=== PATIENT | female | born 1945 | race Caucasian/White ===

== ENCOUNTER 2019-03-08 23:23 | Emergency (ER) | payer OTHER ==
--- OUTSIDE RECORDS SUMMARY | 2019-03-08 23:26 | XMS REPORT | Continuity of Care Document ---
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/08/2016 [facility] obstructive lung Medical disease Center, (disorder) [facility] [place] Depressive Active Problem 07/08/2016 [facility] Medical (disorder) Center, [facility] [place] Eczema Active Problem 07/08/2016 [facility] (disorder) Medical [place], [facility] [place] 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/08/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, Medical systemic Center, arterial [facility] (disorder) [place] Impairment of Active Problem 07/08/2016 [facility] balance Medical (finding) Center, [facility] [place] Neck pain Resolved Problem 07/08/2016 [facility] (finding) [place] Obesity Active Problem 07/08/2016 [facility] (disorder) Medical [place], [facility] [place] Obstructive Active Problem 07/08/2016 [facility] sleep apnea Medical syndrome Center, (disorder) [facility] [place] Pain (finding) Active Problem 07/08/2016 [facility] Medical [place], [facility] [place] SPINAL STENOSIS, Active [facility] CERVICAL [facility] CERVICAL DISC Active [facility] DISORDER WITH Medical MYELOPATHY, Center Medications Medication Details Route Status Patient Ordering Order Source Instructions Provider Date Trazodone 100 mg, 2 tab, Inactive [place] Hydrochloride 100 Route: PO, Drug 2015 Medical MG Oral Tablet form: TAB, Center Bedtime, Dosing Weight 90.909, kg, Start date: 04/06/16 21:00:00 CDT, Duration: 30 day, Stop date: 05/05/16 21:00:00 CDTNotes: (Same As: Desyrel) Ativan 0.5 mg, 1 tab, Inactive 04/06/ [place] Route: PO, Drug 2015 Medical form: TAB, Center ONCE, Dosing Weight 90.909, kg, PRN Anxiety, Start date: 04/06/16 10:57:00 CDTNotes: (Same as: Ativan) Aspirin 81 mg, 1 tab, Inactive [facility] Route: PO, Drug 2015 Medical form: ECTAB, Center Daily, Dosing Weight 90.909, kg, Start date: 04/06/16 9:00:00 CDT, Duration: 30 day, Stop date: 05/05/16 9:00:00 CDTNotes: Do not crush or chew. (Same As: Ecotrin) Potassium Chloride 20 mEq, Route: No Longer [facility] 20 MEQ Extended PO, Drug form: Active 2016 Medical Release Tablet ERTAB, Daily, Center Dosing Weight 90.909, kg, Start date: 04/06/16 9:00:00 CDT, Duration: 30 day, Stop date: 05/05/16 9:00:00 CDT Furosemide 20 MG 20 mg, Route: No Longer [facility] Oral Tablet [Lasix] PO, Drug form: Active 2016 Medical TAB, Daily, Center Dosing Weight 90.909, kg, Start date: 04/06/16 9:00:00 CDT, Duration: 30 day, Stop date: 05/05/16 9:00:00 CDT potassium chloride 10 mEq, 50 mL, Inactive [facility] Route: IVPB2015 Medical Drug form: INJ, Center Q1H, Dosing Weight 90.909, kg, Total Dose=20 meq, Start date: 04/06/16 7:00:00 CDT, Duration: 2 doses or times, Stop date: 04/06/16 8:00:00 CDT, Peripheral LineNotes: (Same as: KCL) Infuse over 2 hours. Furosemide 20 MG 20 mg=1 tab, Active [facility] Oral Tablet PO, Daily, # 60 2015 Medical tab, 0 Center Refill(s) Potassium Chloride 40 mEq=2 tab, Active [facility] 20 MEQ Extended PO, BID, # 60 2015 Medical Release Tablet tab, 0 Center Refill(s) potassium chloride 10 mEq, 50 mL, Inactive [facility] Route: IVPB2015 Medical Drug form: INJ, Center Q1H, Dosing Weight 90.909, kg, Total Dose=20 meq, Start date: 04/06/16 6:00:00 CDT, Duration: 2 doses or times, Stop date: 04/06/16 7:00:00 CDT, Peripheral LineNotes: (Same as: KCL) Infuse over 2 hours. celecoxib 100 MG 100 mg, PO, No Longer [place] Oral Capsule BID, # 180 cap, Active 2015 Medical [Celebrex] 0 Refill(s) Center Furosemide 40 MG 40 mg, 1 tab, No Longer [place] Oral Tablet [Lasix] Route: PO, Drug Active 2015 Medical form: TAB, Center Daily, Dosing Weight 90.909, kg, Priority: NOW, Start date: 04/05/16 13:29:00 CDT, Duration: 30 day, Stop date: 05/05/16 9:00:00 CDTNotes: (Same as: Lasix) May cause GI upset. Give with food or milk. Potassium Chloride 20 mEq, 1 tab, Inactive [place] 20 MEQ Extended Route: PO, Drug 2015 Medical Release Tablet form: ERTAB, Center Daily, Dosing Weight 90.909, kg, Priority: NOW, Start date: 04/05/16 11:43:00 CDT, Duration: 30 day, Stop date: 05/05/16 9:00:00 CDT Furosemide 20 MG 20 mg, Route: Inactive [place] Oral Tablet [Lasix] PO, Drug form: 2016 Medical TAB, Daily, Center Dosing Weight 90.909, kg, Priority: NOW, Start date: 04/05/16 11:43:00 CDT, Duration: 30 day, Stop date: 05/05/16 9:00:00 CDT potassium chloride 40 mEq, 2 tab, No Longer [facility] Route: PO, Drug Active 2015 Medical form: ERTAB, Center BID, Dosing Weight 90.909, kg, Start date: 04/05/16 9:00:00 CDT, Stop date: 05/04/16 17:00:00 CDTNotes: (Same as: K-Dur 20) "Do Not Crush" With food and full glass of water potassium chloride 10 mEq, 50 mL, Inactive [place] Route: IVPB, 2015 Medical Drug form: INJ, Center ONCE, Dosing Weight 90.909, kg, Start date: 04/05/16 3:24:00 CDT, Stop date: 04/05/16 3:24:00 CDTNotes: (Same as: KCL) Infuse over 2 hours. Lasix 40 mg, 4 mL, No Longer [place] Route: IVP, Active 2015 Medical Drug form: INJ, Center BID, Dosing Weight 90.909, kg, Start date: 04/04/16 17:00:00 CDT, Duration: 30 day, Stop date: 05/04/16 9:00:00 CDTNotes: (Same as: Lasix) MEDICATION WASTE Product Size: 40 mg Product Wasted: ___ mg iodixanol 100 mL, Route: No Longer [place] IVP, Drug Form: Active 2016 Medical SOLN, Dosing Center Weight 90.909, kg, ONCALL, STAT, Start date: 04/04/16 14:50:00 CDT, Duration: 1 doses or times, Dose=2.2ml/kg, Max tfpt=[id number] -- "To be infused by Radiology Staff ONLY"Notes: (Same as: Russ). WASTE: F/P - Black; E - Municipal Trash Bin Albuterol 0.833 3 ml, Route: No Longer [place] MG/ML / Ipratropium NEB, Drug Form: Active 2016 Medical [place] 0.167 MG/ML SOLN, Dosing Center Inhalant Solution Weight 90.909, [DuoNeb] kg, PRN, PRN Respiratory Protocol, NOW, Start date: 04/04/16 12:54:00 CDT, Duration: 30 day, Stop date: 05/04/16 12:53:00 CDTNotes: (Same as: Duoneb) Acetaminophen 325 2 tab, Route: No Longer [place] MG / Hydrocodone PO, Drug Form: Active 2016 Medical Bitartrate 10 MG TAB, Dosing Center Oral Tablet [[place] Weight 90.909, 10325] kg, Q4H, PRN Pain Score 7-10, Start date: 04/04/16 11:53:00 CDT, Duration: 30 day, Stop date: 05/04/16 11:52:00 CDTNotes: Do not exceed 4gm/day of acetaminophen. (Same as: [place] 325/10) Ativan 0.5 mg, 0.25 Inactive [place] mL, Route: IV, 2015 Medical Drug form: INJ, Center ONCE, Dosing Weight 90.909, kg, PRN as needed for anxiety, Start date: 04/04/16 11:34:00 CDTNotes: (Same as: Ativan) Robaxin 750 mg, 1 tab, No Longer [place] Route: PO, Drug Active 2015 Medical form: TAB, TID, Center Dosing Weight 90.909, kg, Start date: 04/04/16 9:00:00 CDT, Duration: 30 day, Stop date: 05/03/16 17:00:00 CDTNotes: (Same as:Robaxin) tramadol 50 mg=1 tab, On Hold [place] hydrochloride 50 MG PO, Q4H, PRN 2015 Medical Oral Tablet Pain Score 1-3, Center [Ultram] X 7 day, # 42 tab, 0 Refill(s) senna 8.6 mg oral 8.6 mg=1 tab, On Hold [place] tablet PO, Q12H, X 30 2015 day, # 60 tab, Center 0 Refill(s) Docusate Sodium 100 100 mg=1 cap, On Hold [place] MG Oral Capsule PO, Q12H, # 60 2015 Medical cap, 0 Center Refill(s) methocarbamol 750 750 mg=1 tab, On Hold [place] mg oral tablet PO, QID, X 30 2015 day, # 120 tab, Center 0 Refill(s) Acetaminophen 325 2 tab, Route: Inactive [place] MG / Hydrocodone PO, Drug Form: 2016 Medical Bitartrate 10 MG TAB, Dosing Center Oral Tablet [[place] Weight 90.909, 10325] kg, Q6H, PRN Pain Score 7-10, Start date: 04/04/16 5:31:00 CDT, Duration: 30 day, Stop date: 05/04/16 5:30:00 CDTNotes: Do not exceed 4gm/day of acetaminophen. (Same as: [place] 325/10) tramadol 50 mg, 1 tab, No Longer [place] hydrochloride 50 MG Route: PO, Drug Active 2016 Medical Oral Tablet form: TAB, Q4H, Center [Ultram] Dosing Weight 90.909, kg, PRN Pain Score 1-3, Start date: 04/04/16 5:31:00 CDT, Duration: 30 day, Stop date: 05/04/16 5:30:00 CDTNotes: Not to exceed 400mg/day. (Same As: Ultram) remove patch Route: TOP, No Longer [facility] Bedtime, Drug Active 2015 Medical form: ERFILM, Center Start date: 04/03/16 21:00:00 CDT, Duration: 30 day, Stop date: 05/02/16 21:00:00 CDTNotes: Remove patch 12 hours after application each day. heparin sodium, 5,000 unit, 1 No Longer [place] porcine 2500 UNT/ML mL, Route: Active 2015 Medical Injectable Solution SUB-Q, Drug Center form: INJ, Q8H, Dosing Weight 90.909, kg, Start date: 04/03/16 16:00:00 CDT, Duration: 30 day, Stop date: 05/03/16 8:00:00 CDTNotes: porcine heparin Lidocaine 1 patch, Route: No Longer [facility] Hydrochloride 0.05 TOP, Daily, Active 2015 Medical MG/MG Transdermal Drug form: Center Patch [Lidoderm] FILM, Priority: Now, Start date: 04/03/16 9:00:00 CDT, Duration: 30 day, Stop date: 05/02/16 9:00:00 CDT, Remove after 12 hoursNotes: Apply only once for up to 12 hours in a 24-hour period (12 hours on and 12 hours off). (Same as: Lidoderm) "Remove old patch before application of new patch" phenol 1 spray, Route: No Longer [facility] TOP, Daily, Active 2015 Medical Drug form: Center SPRY, PRN Sore Throat, Start date: 04/02/16 10:30:00 CDT, Duration: 30 day, Stop date: 05/02/16 10:29:00 CDTNotes: Chloraseptic [place] (Same as: Chloraseptic, Sore Throat [place]) WASTE: F/P - Black; E - Municipal Trash Bin Prinivil 20 mg, 1 tab, No Longer [place] Route: PO, Drug Active 2015 Medical form: TAB, Center Daily, Start date: 04/02/16 9:00:00 CDT, Duration: 30 day, Stop date: 05/01/16 9:00:00 CDTNotes: (Same as: Prinivil, Zestril) atorvastatin 10 mg, 1 tab, No Longer [place] Route: PO, Drug Active 2015 Medical form: TAB, Center Daily, Dosing Weight 90.909, kg, Start date: 04/02/16 9:00:00 CDT, Duration: 30 day, Stop date: 05/01/16 9:00:00 CDTNotes: (Same As: Lipitor) MaxEPA 1 gm, 1 cap, No Longer [place] Route: PO, Drug Active 2015 Medical form: CAP, Center Daily, Start date: 04/02/16 9:00:00 CDT, Duration: 30 day, Stop date: 05/01/16 9:00:00 CDTNotes: (Same as: MaxEPA, Neon 3 fish oil ) Non-Formulary Drug Microzide 12.5 mg, 1 cap, No Longer [place] Route: PO, Drug Active 2015 Medical form: CAP, Center Daily, Start date: 04/02/16 9:00:00 CDT, Duration: 30 day, Stop date: 05/01/16 9:00:00 CDTNotes: (Same as: Microzide) influenza virus 0.5 mL, Route: Inactive [place] vaccine, IM, Drug Form: 2016 Medical inactivated SUSP, Daily, Center Start date: 04/02/16 9:00:00 CDT, Duration: 1 doses or times, Stop date: 04/02/16 9:00:00 CDTNotes: (Same as: Fluzone Quadrivalent, Fluarix Quadrivalent) For 3 years of age and older (0.5 mL IM) Shake well before use omega-3 350 mg, Route: No Longer [place] polyunsaturated PO, Daily, Active 2016 Medical fatty acids Dosing Weight Center 90.909, kg, Start date: 04/02/16 9:00:00 CDT, Duration: 30 day, Stop date: 05/01/16 9:00:00 CDT tiotropium 0.018 18 microgram, 1 No Longer [place] MG/ACTUAT Inhalant inhalation, Active 2015 Medical Powder [Spiriva] Route: Center INHALATION, Drug form: CAP, Daily, Dosing Weight 90.909, kg, Start date: 04/02/16 9:00:00 CDT, Duration: 30 day, Stop date: 05/01/16 9:00:00 CDTNotes: (Same As: Spiriva) multivitamin 1 tab, Route: No Longer [place] PO, Drug Form: Active 2016 Medical TAB, Dosing Center Weight 90.909, kg, Daily, Start date: 04/02/16 9:00:00 CDT, Duration: 30 day, Stop date: 05/01/16 9:00:00 CDTNotes: (Same as:Thera) WASTE: F/P - Black; E - Municipal Trash Bin Hydrochlorothiazide 1 tab, Route: No Longer [place] 12.5 MG / PO, Drug Form: Active 2015 Medical Lisinopril 20 MG TAB, Dosing Center Oral Tablet Weight 90.909, kg, Daily, Start date: 04/02/16 9:00:00 CDT, Duration: 30 day, Stop date: 05/01/16 9:00:00 CDT Robaxin 500 mg, 1 tab, No Longer [place] Route: PO, Drug Active 2015 Medical form: TAB, TID, Center Dosing Weight 90.909, kg, Start date: 04/02/16 9:00:00 CDT, Duration: 30 day, Stop date: 05/01/16 17:00:00 CDTNotes: (Same as:Robaxin) Furosemide 20 MG 20 mg, 1 tab, No Longer [facility] Oral Tablet Route: PO, Drug Active 2015 Medical form: TAB, Center Daily, Dosing Weight 90.909, kg, Start date: 04/02/16 9:00:00 CDT, Duration: 30 day, Stop date: 05/01/16 9:00:00 CDTNotes: (Same as: Lasix) Fluoxetine 20 mg, 1 cap, No Longer [place] Route: PO, Drug Active 2015 Medical form: CAP, Center Daily, Dosing Weight 90.909, kg, Start date: 04/02/16 9:00:00 CDT, Duration: 30 day, Stop date: 05/01/16 9:00:00 CDTNotes: (Same as: Prozac, Sarafem) Fenofibrate 145 MG 145 mg, 1 tab, No Longer [facility] Oral Tablet Route: PO, Drug Active 2015 Medical form: TAB, Center Daily, Dosing Weight 90.909, kg, Start date: 04/02/16 9:00:00 CDT, Duration: 30 day, Stop date: 05/01/16 9:00:00 CDTNotes: (Same as: Tricor) Dilaudid 1 mg, 0.5 mL, No Longer [facility] Route: IVP, Active 2015 Medical Drug form: INJ, Center Q4H, Dosing Weight 90.909, kg, PRN Pain Score 7-10, Start date: 04/02/16 6:41:00 CDT, Duration: 30 day, Stop date: 05/02/16 6:40:00 CDTNotes: (Same as: Dilaudid) Acetaminophen 325 1 tab, Route: No Longer [facility] MG / Hydrocodone PO, Drug Form: Active 2015 Medical Bitartrate 10 MG TAB, Dosing Center Oral Tablet [[place] Weight 90.909, 10/325] kg, Q4H, PRN Pain Score 1-3, Start date: 04/02/16 6:40:00 CDT, Duration: 30 day, Stop date: 05/02/16 6:39:00 CDTNotes: Do not exceed 4gm/day of acetaminophen. (Same as: [place] 325/10) Famotidine 20 mg, 2 mL, No Longer [facility] Route: IVP, Active 2015 Medical Drug form: INJ, Center Q12H, Dosing Weight 90.909, kg, Start date: 04/01/16 21:00:00 CDT, Duration: 30 day, Stop date: 05/01/16 9:00:00 CDTNotes: (Same as: Pepcid) Can be dilute in 5-10cc NS IVP: Slow IV push over at least 2 minutes. Acetaminophen 1,000 mg, 100 No Longer [place] mL, Route: IV, Active 2015 Medical Drug form: INJ, Center Q8H-05, Dosing Weight 90.909, kg, Start date: 04/01/16 21:00:00 CDT, Duration: 1 day, Stop date: 04/02/16 13:00:00 CDT, > 67 kg; Pediatric DosingNotes: Infuse over 15 minutes Do not exceed 4gm/day of acetaminophen MEDICATION WASTE Product Size: 1000 mg Product Wasted: ___ mg Saline Flush 0.9% 10 ml, Route: No Longer [place] IVP, Drug Form: Active 2015 Medical INJ, Dosing Center Weight 90.909, kg, Q12H, Start date: 04/01/16 21:00:00 CDT, Duration: 30 day, Stop date: 05/01/16 9:00:00 CDTNotes: Same as: BD Posiflush Sterile Docusate 100 mg, 1 cap, No Longer [facility] Route: PO, Drug Active 2015 Medical form: CAP, Center Q12H, Dosing Weight 90.909, kg, Start date: 04/01/16 21:00:00 CDT, Duration: 30 day, Stop date: 05/01/16 9:00:00 CDTNotes: (Same as: Colace) (Do Not Crush) sennosides, SHELTER 8.6 mg, 1 tab, No Longer [facility] Route: PO, Drug Active 2015 Medical Form: TAB, Center Dosing Weight 90.909, kg, Q12H, Start date: 04/01/16 21:00:00 CDT, Duration: 30 day, Stop date: 05/01/16 9:00:00 CDTNotes: (Same as: Senokot) carvedilol 12.5 mg, 1 tab, No Longer [facility] Route: PO, Drug Active 2015 Medical form: TAB, BID, Center Dosing Weight 90.909, kg, Start date: 04/01/16 17:00:00 CDT, Duration: 30 day, Stop date: 05/01/16 9:00:00 CDTNotes: Give with food. (Same As: Coreg) Folic Acid 1 mg, 1 tab, No Longer [place] Route: PO, Drug Active 2015 Medical form: TAB, BID, Center Dosing Weight 90.909, kg, Start date: 04/01/16 17:00:00 CDT, Duration: 30 day, Stop date: 05/01/16 9:00:00 CDTNotes: (Same as: Folvite) ceFAZolin (SCIP) + 2 gm, Route: No Longer [place] sodium chloride IVPB, Q8H, Active 2015 Medical 0.9% INJ 100 mL Dosing Weight Center 90.909, kg, Start date: 04/01/16 16:00:00 CDT, Duration: 3 doses or times, Stop date: 04/02/16 8:00:00 CDTNotes: (Same As: Jonatan Morton) MEDICATION WASTE Product Size: 1000 mg Product Wasted: ___ mg ropinirole 1 mg, 1 tab, No Longer [place] Route: PO, Drug Active 2015 Medical form: TAB, TID, Center Dosing Weight 90.909, kg, Start date: 04/01/16 14:06:00 CDT, Duration: 30 day, Stop date: 05/01/16 13:00:00 CDTNotes: (Same as: Requip) Dexamethasone 4 mg, 1 mL, No Longer [place] Route: IVP, Active 2015 Medical Drug form: INJ, Center Q6H-02, Dosing Weight 90.909, kg, Start date: 04/01/16 14:00:00 CDT, Duration: 30 day, Stop date: 05/01/16 8:00:00 CDTNotes: Concentration: 4mg/ml Robaxin 500 mg, 5 mL, Inactive [place] Route: IV, Drug 2015 Medical form: INJ, Center ONCE, Dosing Weight 90.909, kg, Start date: 04/01/16 13:51:00 CDT, Stop date: 04/01/16 13:51:00 CDTNotes: (Same as:Robaxin) Robaxin 500 mg, 1 tab, No Longer [facility] Route: PO, Drug Active 2015 Medical form: TAB, Center ONCE, Dosing Weight 90.909, kg, Start date: 04/01/16 13:11:00 CDT, Stop date: 04/01/16 13:11:00 CDTNotes: (Same as:Robaxin) Dexamethasone 10 mg, Route: Inactive [facility] IVP, ONCE, 2015 Medical Dosing Weight Center 90.909, kg, Priority: NOW, Start date: 04/01/16 13:06:00 CDT, Stop date: 04/01/16 13:06:00 CDT Ofirmev 1,000 mg, Inactive [facility] Route: IV, Drug 2015 Medical form: INJ, Center ONCE, Dosing Weight 90.909, kg, PRN Pain Score 1-3, for > or=50 kg, Start date: 04/01/16 12:13:00 CDT Ondansetron 4 mg, 2 mL, Inactive [facility] Route: IVP, 2015 Medical Drug form: INJ, Center ONCE, Dosing Weight 90.909, kg, PRN Nausea & Vomiting, Start date: 04/01/16 12:11:00 CDTNotes: (Same as: Zofran) MEDICATION WASTE Product Size: 4 mg Product Wasted: ___ mg Flumazenil 0.2 mg, 2 mL, Inactive [facility] Route: IVP, 2015 Medical Drug form: INJ, Center PRN, Dosing Weight 90.909, kg, PRN Benzodiazepine Reversal, Initial dose, Start date: 04/01/16 12:11:00 CDT, Duration: 1 day, Stop date: 04/02/16 12:10:00 CDTNotes: (Same as: Romazicon) Naloxone 0.4 mg, 1 mL, Inactive [facility] Route: IVP2015 Medical Drug form: INJ, Center Q2MIN, Dosing Weight 90.909, kg, PRN Narcotic Reversal, Start date: 04/01/16 12:11:00 CDT, Duration: 8 doses or times, Stop date: 04/02/16 0:00:00 CDTNotes: Same as Narcan Hydromorphone 0.2 mg, Route: Inactive [facility] IVP, Q5Min, 2015 Medical Dosing Weight Center 90.909, kg, PRN Pain Score 7-10, Start date: 04/01/16 12:11:00 CDT, Duration: 4 doses or times, Stop date: Limited # of times Dilaudid 0.5 mg, 0.25 No Longer [place] mL, Route: IVP, Active 2015 Medical Drug form: INJ, Center Q3H, Dosing Weight 90.909, kg, PRN Pain Score 7-10, Start date: 04/01/16 12:03:00 CDT, Duration: 30 day, Stop date: 05/01/16 12:02:00 CDTNotes: (Same as: Dilaudid) Labetalol 10 mg, 2 mL, No Longer [place] Route: IVP, Active 2015 Medical Drug form: INJ, Center Q15Min, Dosing Weight 90.909, kg, PRN Hypertension, Start date: 04/01/16 12:00:00 CDT, Duration: 3 doses or times, Stop date: 04/02/16 17:00:00 CDT Hydralazine 10 mg, 0.5 mL, No Longer [place] Route: IV, Drug Active 2015 Medical form: INJ, Q4H, Center Dosing Weight 90.909, kg, PRN Hypertension, Start date: 04/01/16 12:00:00 CDT, Duration: 30 day, Stop date: 05/01/16 11:59:00 CDTNotes: (Same as: Apresoline) Push over 5 minutes Robaxin 750 mg, 1 tab, No Longer [place] Route: PO, Drug Active 2015 Medical form: TAB, TID, Center Dosing Weight 90.909, kg, PRN Muscle Spasms, Start date: 04/01/16 11:59:00 CDT, Duration: 30 day, Stop date: 05/01/16 11:58:00 CDTNotes: (Same as:Robaxin) Dextrose 50% 6.25 gm, 12.5 No Longer [place] Syringe mL, Route: IVP, Active 2015 Medical Drug Form: INJ, Center Dosing Weight 90.909, kg, PRN, PRN Abnormal Lab Result, Start date: 04/01/16 11:58:00 CDT, Duration: 30 day, Stop date: 05/01/16 11:57:00 CDT Regular Insulin, 3 unit, 0.03 No Longer [place] Human 100 UNT/ML mL, Route: Active 2016 Medical Injectable Solution SUB-Q, Drug Center form: SOLN, PRN, Dosing Weight 90.909, kg, PRN Abnormal Lab Result, Start date: 04/01/16 11:58:00 CDT, Duration: 30 day, Stop date: 05/01/16 11:57:00 CDTNotes: (Same as: Humulin R) Roll in palms of hands gently; Do not shake vigorously. "single patient use only" (Restricted to patients requiring a dose > 60 units) WASTE: F/P - Black; E - Municipal Trash Bin Stable for 28 days at room temperature Expires in days from D ate Saline Flush 0.9% 10 ml, Route: No Longer [place] IVP, Drug Form: Active 2016 Medical INJ, Dosing Center Weight 90.909, kg, PRN, PRN Line Flush, Start date: 04/01/16 11:58:00 CDT, Duration: 30 day, Stop date: 05/01/16 11:57:00 CDTNotes: Same as: BD Posiflush Sterile Ondansetron 4 mg, 2 mL, No Longer [place] Route: IVP, Active 2015 Medical Drug form: INJ, Center Q8H, Dosing Weight 90.909, kg, PRN Nausea & Vomiting, Start date: 04/01/16 11:58:00 CDT, Duration: 30 day, Stop date: 05/01/16 11:57:00 CDTNotes: (Same as: Zofran) MEDICATION WASTE Product Size: 4 mg Product Wasted: ___ mg Bisacodyl 10 mg, 1 supp, No Longer [facility] Route: HI, Drug Active 2015 Medical form: SUPP, Center Daily, Dosing Weight 90.909, kg, PRN Constipation, Start date: 04/01/16 11:58:00 CDT, Duration: 30 day, Stop date: 05/01/16 11:57:00 CDTNotes: (Same As: Dulcolax, Bisco-Lax) Acetaminophen 325 2 tab, Route: No Longer [place] MG / Hydrocodone PO, Drug Form: Active 2015 Medical Bitartrate 10 MG TAB, Dosing Center Oral Tablet Weight 90.909, kg, Q4H, PRN Pain Score 7-10, Start date: 04/01/16 11:58:00 CDT, Duration: 30 day, Stop date: 05/01/16 11:57:00 CDTNotes: Do not exceed 4gm/day of acetaminophen. (Same as: [place] 325/10) Morphine 2 mg, Route: Inactive [place] IVP, Q1H, 2015 Medical Dosing Weight Center 90.909, kg, PRN Pain Score 7-10, Start date: 04/01/16 11:58:00 CDT, Duration: 30 day, Stop date: 05/01/16 11:57:00 CDT Sodium Chloride 1,000 mL, Rate: No Longer [place] 0.154 MEQ/ML 75 ml/hr, Active 2015 Medical Injectable Solution Infuse over: Center 13.3 hr, Route: IV, Dosing Weight 90.909 kg, Total Volume: 1,000, Start date: 04/01/16 11:58:00 CDT, Duration: 30 day, Stop date: 05/01/16 11:57:00 CDT Ancef 1 gm, Route: Inactive [place] IVPB, Drug 2015 Medical form: INJ, Center ONCE, Dosing Weight 90.909, kg, Start date: 04/01/16 11:05:00 CDT, Stop date: 04/01/16 11:05:00 CDT bupivacaine 20 mL, Route: Inactive [facility] liposome InFILtration(lo 2016 Medical jitendra), Drug Center Form: INJ, ONCE, NOW, Start date: 04/01/16 10:05:00 CDT, Stop date: 04/01/16 10:05:00 CDTNotes: (Same as: Exparel) NOT FOR IV use Postoperative analgesia: Infiltration (local): Dose is based on surgical site and volume required to cover the area (in general, the maximum total dose is 266 mg). Bunionectomy: 7 mL into the tissues surrounding the osteotomy and 1 mL into the subcutaneous tissue of the surgical site (total dose=8 mL [106 mg]) Hemorrhoidectom y: 30 mL (20 mL vial diluted with 10 mL NS) divided and administered as 6 injections of 5 mL each (total dose=30 mL [266 mg]) Ancef 2 gm, Route: Inactive [facility] IVPB, Drug 2015 Medical form: INJ, Center ONCE, Dosing Weight 90.909, kg, Start date: 04/01/16 8:15:00 CDT, Duration: 1 doses or times, Stop date: 04/01/16 8:15:00 CDT, Surgical Prophylaxis Only; For patients Lactated Ringers 1,000 mL, Rate: No Longer [facility] 1,000 mL 40 ml/hr, Active 2015 Medical Infuse over: 25 Center hr, Route: IV, Dosing Weight 90.909 kg, Total Volume: 1,000, Start date: 04/01/16 6:00:00 CDT, Duration: 30 day, Stop date: 05/01/16 5:59:00 CDT Allergies, Adverse Reactions, Alerts No Known Medication Allergies Immunizations Immunization Date Given Site Status Last Comments Source Updated influenza virus 04/02/2016 Left completed [facility] vaccine, [facility], MAICOL Mccabe Results Order Name Results Value Reference Date Interpretation Comments Source Range CHEM PANEL Calcium Lvl 9.5 8.5 - 10.5 04/06 [facility] [place] CHEM PANEL eGFR 94 04/06 Result Comment: The Medical eGFR is Center calculated using the CKD-EPI formula. In most young, healthy individuals the eGFR will be >90 mL/min/1.73m2 . The eGFR declines with age. An eGFR of 60-89 may be normal in some populations, particularly the elderly, for whom the CKD-EPI formula has not been extensively validated. Use of the eGFR is not recommended in the following populations:< br/>
Rita viduals with unstable creatinine concentration s, including patients and those with serious co-morbid conditions.<b r/>
Patie nts with extremes in muscle mass or diet.

The data above are obtained from the National Kidney Disease Education Program (NKDEP) which additionally recommends that when the eGFR is used in patients with extremes of body mass index for purposes of drug dosing, the eGFR should be multiplied by the estimated BMI. CHEM PANEL CO2 26 24 - 32 10 [facility] CHEM PANEL Creatinine 0.55 0.50 - 10 [place] Lvl 1.40 [facility] CHEM PANEL Chloride Lvl 99 95 - 109 04/06 [facility] CHEM PANEL AGAP 14.9 10.0 - 10 [place] 20.0 [facility] CHEM PANEL BUN 27 7 - 22 10 [facility] CHEM PANEL Potassium 2.9 3.5 - 5.1 04/06 Result [facility] Lv Comment: [facility] Result(s) called to Brenna Salgado at 04/06/2016 15:31 byP. Read back OK. CHEM PANEL Sodium Lvl 137 135 - 145 04/06 [facility] CHEM PANEL Glucose Lvl 98 70 - 99 04/06 [facility] ELECTROLYTE Chloride Lvl 99 95 - 109 04/06 [facility] ELECTROLYTE Potassium 2.5 3.5 - 5.1 04/06 Result [facility] S Lv Comment: [facility] Result(s) called to Jameel Holliday at 04/06/2016 05:05 by AC. Read back OK. ELECTROLYTE Sodium Lvl 136 135 - 145 04/06 S [facility] ELECTROLYTE CO2 25 24 - 32 10 S [facility] ELECTROLYTE eGFR 93 04/06 Result [facility] Comment: The Medical eGFR is Center calculated using the CKD-EPI formula. In most young, healthy individuals the eGFR will be >90 mL/min/1.73m2 . The eGFR declines with age. An eGFR of 60-89 may be normal in some populations, particularly the elderly, for whom the CKD-EPI formula has not been extensively validated. Use of the eGFR is not recommended in the following populations:< br/>
Rita viduals with unstable creatinine concentration s, including patients and those with serious co-morbid conditions.<b r/>
Patie nts with extremes in muscle mass or diet.

The data above are obtained from the National Kidney Disease Education Program (NKDEP) which additionally recommends that when the eGFR is used in patients with extremes of body mass index for purposes of drug dosing, the eGFR should be multiplied by the estimated BMI. ELECTROLYTE Calcium Lvl 9.5 8.5 - 10.5 10 S /2015 [facility] ELECTROLYTE AGAP 14.5 10.0 - 1005 [facility] S 20.0 /2015 [facility] ELECTROLYTE Glucose Lvl 93 70 - 99 10 S /2015 [facility] ELECTROLYTE BUN 24 7 - 22 10 S /2015 [facility] ELECTROLYTE Creatinine 0.57 0.50 - 1005 [facility] S Lvl 1.40 /2015 [facility] HEMATOLOGY PT 15.9 12.0 - 10 [place] 14.7 /2015 [facility] HEMATOLOGY INR 1.24 0.85 - 1005 [place] 1.17 /2015 [facility] HEMATOLOGY PTT 35.2 22.9 - 1005 [place] 35.8 /2016 [facility] HEMATOLOGY RBC 3.67 4.20 - 10 [place] 5.40 /2015 [facility] HEMATOLOGY Hgb 10.6 12.0 - 10 [place] 16.0 /2016 [facility] HEMATOLOGY WBC 8.8 3.7 - 10.4 10 [facility] HEMATOLOGY Platelet 490 133 - 450 10 /2015 [facility] HEMATOLOGY MPV 7.5 7.4 - 10.4 04/06 [facility] HEMATOLOGY MCHC 34.7 32.0 - 10 [place] 36.0 /2016 [facility] HEMATOLOGY RDW 13.8 11.5 - 1005 [place] 14.5 /2016 [facility] HEMATOLOGY MCV 82.8 80.0 - 1005 [place] 98.0 /2016 [facility] HEMATOLOGY MCH 28.8 27.0 - 1005 [place] 31.0 /2016 [facility] HEMATOLOGY Hct 30.4 36.0 - 1005 [place] 48.0 /2016 [facility] HEMATOLOGY Eosinophils 0.2 0.0 - 0.5 10 [place] # /2016 [facility] HEMATOLOGY Segs-Bands # 5.4 1.5 - 8.1 10 /2015 [facility] HEMATOLOGY Monocytes # 1.1 0.0 - 0.8 10 /2015 [facility] HEMATOLOGY Lymphocytes 2.1 1.0 - 5.5 10 [place] # /2016 [facility] HEMATOLOGY Eosinophils 2.1 0.0 - 4.0 04/06 [facility] HEMATOLOGY Basophils 0.6 0.0 - 1.0 04/06 [facility] HEMATOLOGY Lymphocytes 23.7 20.0 - 04/06 [place] 40.0 [facility] HEMATOLOGY Monocytes 12.4 2.0 - 12.0 04/06 [facility] HEMATOLOGY Segs 61.2 45.0 - 04/06 [place] 75.0 /2015 [facility] CHEM PANEL Magnesium 1.5 1.8 - 2.4 04/05 [facility] Lvl [facility] CHEM PANEL AST 20 0 - 37 04/05 [facility] CHEM PANEL Bili Total 0.8 0.2 - 1.3 04/05 [facility] CHEM PANEL Alk Phos 31 39 - 136 04/05 [facility] CHEM PANEL eGFR 88 04/05 [facility] Comment: The Medical eGFR is Center calculated using the CKD-EPI formula. In most young, healthy individuals the eGFR will be >90 mL/min/1.73m2 . The eGFR declines with age. An eGFR of 60-89 may be normal in some populations, particularly the elderly, for whom the CKD-EPI formula has not been extensively validated. Use of the eGFR is not recommended in the following populations:< br/>
Rita viduals with unstable creatinine concentration s, including patients and those with serious co-morbid conditions.<b r/>
Patie nts with extremes in muscle mass or diet.

The data above are obtained from the National Kidney Disease Education Program (NKDEP) which additionally recommends that when the eGFR is used in patients with extremes of body mass index for purposes of drug dosing, the eGFR should be multiplied by the estimated BMI. CHEM PANEL Total 6.1 6.4 - 8.4 04/05 [facility] Protein [facility] CHEM PANEL Albumin Lvl 2.8 3.5 - 5.0 04/05 [facility] CHEM PANEL CO2 27 24 - 32 04/05 [facility] CHEM PANEL ALT 20 0 - 65 04/05 [facility] CHEM PANEL A/G Ratio 0.8 0.7 - 1.6 04/05 [facility] CHEM PANEL Globulin 3.3 2.7 - 4.2 04/05 /2015 [facility] CHEM PANEL AGAP 15.9 10.0 - 10 [place] 20.0 /2016 [facility] CHEM PANEL B/C Ratio 33 6 - 25 04/05 [facility] CHEM PANEL Calcium Lvl 9.1 8.5 - 10.5 04/05 [facility] CHEM PANEL Potassium 2.9 3.5 - 5.1 04/05 Result [place] Lvl /2015 Comment: [facility] Result(s) called to BALAJI ZAIDI at 04/05/2016 02:35 byW. Read back OK. CHEM PANEL Chloride Lvl 100 95 - 109 04/05 [facility] CHEM PANEL Sodium Lvl 140 135 - 145 04/05 [facility] CHEM PANEL Creatinine 0.70 0.50 - 10 [place] Lvl 1.40 /2015 [facility] CHEM PANEL BUN 23 7 - 22 04/05 /2015 [facility] CHEM PANEL Glucose Lvl 113 70 - 99 04/05 /2015 [facility] CARDIAC Troponin-T 0.092 0.000 - 10 [place] ENZYMES 0.100 /2015 [facility] CARDIAC Troponin-I 0.39 0.00 - 10 [place] ENZYMES 0.40 /2015 [facility] CARDIAC Total CK 42 12 - 191 04/05 [place] ENZYMES /2016 [facility] CARDIAC Troponin-T 0.153 0.000 - 04/04 Result [place] ENZYMES 0.100 Comment: [facility] Result(s) called to Balaji Zaidi at 04/04/2016 19:52 by DH. Read back OK. CARDIAC Troponin-I 0.42 0.00 - 10 [place] ENZYMES 0.40 /2016 [facility] CARDIAC Total CK 44 12 - 191 04/04 [place] ENZYMES /2016 [facility] CARDIAC Troponin-T 0.149 0.000 - 10 Result [place] ENZYMES 0.100 Comment: [facility] Critical [facility] Result(s) called to Sowmya Schreiber at 04/04/2016 16:11 by DH. Read back OK. CARDIAC Troponin-I 0.44 0.00 - 10 [place] ENZYMES 0.40 /2016 [facility] CARDIAC Total CK 46 12 - 191 04/04 [place] ENZYMES /2016 [facility] HEMATOLOGY Basophils # 0.1 0.0 - 0.2 04/01 /2015 [facility] HEMATOLOGY Lymphocytes 14.6 20.0 - 04/01 [place] 40.0 /2015 [facility] HEMATOLOGY Segs-Bands # 4.5 1.5 - 8.1 04/01 /2015 [facility] HEMATOLOGY Monocytes 4.2 2.0 - 12.0 04/01 /2015 [facility] HEMATOLOGY Basophils 0.9 0.0 - 1.0 04/01 /2015 [facility] HEMATOLOGY Eosinophils 0.4 0.0 - 0.5 04/01 [place] # /2016 [facility] HEMATOLOGY Monocytes # 0.3 0.0 - 0.8 04/01 /2015 [facility] HEMATOLOGY Lymphocytes 0.9 1.0 - 5.5 04/01 [facility] # /2015 [facility] HEMATOLOGY Segs 74.1 45.0 - 04/01 [place] 75.0 /2015 [facility] HEMATOLOGY Eosinophils 6.2 0.0 - 4.0 04/01 [facility] HEMATOLOGY MPV 6.7 7.4 - 10.4 04/01 /2015 [facility] HEMATOLOGY Platelet 300 133 - 450 04/01 /2015 [facility] HEMATOLOGY Hct 31.2 36.0 - 04/01 [place] 48.0 /2015 [facility] HEMATOLOGY Hgb 10.5 12.0 - 04/01 [place] 16.0 [facility] HEMATOLOGY MCV 84.5 80.0 - 04/01 [place] 98.0 /2015 [facility] HEMATOLOGY MCHC 33.6 32.0 - 04/01 [place] 36.0 /2015 [facility] HEMATOLOGY MCH 28.4 27.0 - 04/01 [place] 31.0 [facility] HEMATOLOGY RDW 13.5 11.5 - 04/01 [place] 14.5 /2015 [facility] HEMATOLOGY WBC 6.0 3.7 - 10.4 04/01 /2015 [facility] HEMATOLOGY RBC 3.69 4.20 - 04/01 [place] 5.40 /2015 [facility] BLOOD BANK Antibody Negative 04/01 [facility] RESULTS Scrn (04/01/16 6:02 AM) /2015 [facility] BLOOD BANK ABO/Rh A POS 04/01 [facility] RESULTS /2015 [facility] CHEM PANEL Albumin Lvl 3.5 3.5 - 5.0 03/28 /2015 [facility] CHEM PANEL ALT 28 0 - 65 03/28 [facility] CHEM PANEL AST 22 0 - 37 03/28 [facility] CHEM PANEL Total 6.2 6.4 - 8.4 03/28 [facility] CHEM PANEL Alk Phos 37 39 - 136 03/28 2015 [facility] CHEM PANEL Bili Total 0.5 0.2 - 1.3 03/28 /2015 [facility] CHEM PANEL Globulin 2.7 2.7 - 4.2 03/28 /2015 [facility] CHEM PANEL A/G Ratio 1.3 0.7 - 1.6 03/28 /2015 [facility] CHEM PANEL B/C Ratio 30 6 - 25 03/28 /2015 [facility] HEMATOLOGY Segs-Bands # 4.3 1.5 - 8.1 03/28 2015 [facility] HEMATOLOGY Monocytes # 0.7 0.0 - 0.8 03/28 [facility] HEMATOLOGY Lymphocytes 1.3 1.0 - 5.5 03/28 [facility] /2015 [facility] HEMATOLOGY Basophils # 0.1 0.0 - 0.2 03/28 [facility] HEMATOLOGY Eosinophils 1.1 0.0 - 0.5 03/28 [facility] /2015 [facility] HEMATOLOGY Segs 57.3 45.0 - 03/28 [place] 75.0 [facility] HEMATOLOGY Lymphocytes 16.9 20.0 - 03/28 [place] 40.0 [facility] HEMATOLOGY Eosinophils 14.8 0.0 - 4.0 03/28 [facility] HEMATOLOGY Basophils 1.4 0.0 - 1.0 03/28 /2015 [facility] HEMATOLOGY Monocytes 9.6 2.0 - 12.0 03/28 [facility] HEMATOLOGY Ly30 8.9 0.0 - 7.5 03/28 /2015 [facility] HEMATOLOGY G-value 13.2 4.5 - 11.0 03/28 /2015 [facility] HEMATOLOGY TEG Data See Note 03/28 [facility] (03/28/16 4:25 PM) /2015 [facility] HEMATOLOGY Coag Index 4.2 -3.0-3.0 - 03/28 [place] 3.0 [facility] HEMATOLOGY Angle 76.9 53.0 - 03/28 [place] 72.0 [facility] HEMATOLOGY R-time 3.7 5.0 - 10.0 03/28 [facility] HEMATOLOGY Max Amp 72.5 50.0 - 03/28 [place] 70.0 [facility] HEMATOLOGY K-time 0.8 1.0 - 3.0 03/28 [facility] HEMATOLOGY TEG Interp Thrombelast 03/28 [facility] ograph [facility] show shortened value of R and increased values of both Angle Alpha and MA. These findings are suggestive of platelet and enzymatic hypercoagul ation. LY30 is also increased, consistent with hyperfibrin olysis. For pathologic fibrinolysi s, antifibrino lytics are contraindic ated since microvascul ar thrombosis may be exacerbated . The TEG parameters are suggestive of early phase of DIC. Monitor for DIC with DIC panel may be indicated. CPT:33907 HEMATOLOGY Hgb 11.8 12.0 - 03/28 [facility] 16.0 [facility] HEMATOLOGY Hct 35.6 36.0 - 03/28 [facility] 48.0 [facility] HEMATOLOGY MCHC 33.3 32.0 - 03/28 [facility] 36.0 [facility] HEMATOLOGY MPV 7.6 7.4 - 10.4 03/28 [facility] HEMATOLOGY RDW 13.7 11.5 - 03/28 [facility] 14.5 [facility] HEMATOLOGY Platelet 298 133 - 450 03/28 [facility] HEMATOLOGY MCV 85.0 80.0 - 03/28 [facility] 98.0 [facility] HEMATOLOGY MCH 28.3 27.0 - 03/28 [facility] 31.0 [facility] HEMATOLOGY WBC 7.5 3.7 - 10.4 03/28 [facility] HEMATOLOGY RBC 4.18 4.20 - 03/28 [facility] 5.40 [facility] SPECIAL Hgb A1C 5.2 <=5.6 % 03/28 [facility] CHEMISTRY [facility] Pathology Reports No Data Provided for This Section Diagnostic Reports Report Value Date Source Spine cervical 2 or 3 EXAM: XR CERVICAL SPINE 2 VIEWS 07/05/2016 [facility] [place] DX DATE: 07/05/2016 1:38 PM CLINICAL AIDE INDICATION: Z98.1 Arthrodesis status COMPARISON: Cervical spine series 05/16/2016 TECHNIQUE: AP and lateral radiographs of the cervical spine show from the skull base through C6-C7. DISCUSSION: There is generalized diminished bone mineral density. Unchanged alignment of the cervical spine without subluxation identified. Unchanged, satisfactory appearance of anterior spinal fusion a t C3-C4 and posterior spinal fusion at C3-C6. No hardware fracture, hardware migration, or perihardware osteolysis identified. Ankylosis of the C3-C4 and C4- C5 disc spaces is unchanged. Severe facet arthropathy of the mid and lower cervical spine is unchanged. Severe degenerative changes at the atlantodental interval unchanged. IMPRESSION: 1. Unchanged cervical spondylosis. 2. Unchanged, satisfactory appearance of spinal fusion hardware at C3-C6. Spine cervical comp w EXAM: XR CERVICAL SPINE 7 VIEWS 05/16/2016 [facility] [place] obl-flx/ext DX DATE: 05/16/2016 at 1415 hours INDICATION: chronic back pain COMPARISON: CT cervical spine on 04/01/2016 at 1331 hours TECHNIQUE: AP, lateral, open-mouth odontoid, flexion, extension, RPO and LPO radiographs of the cervical spine show from the skull base through C7. FINDINGS: Anterior C3-C4 cervical fusion late and screws and posterior C3-C5 fusion with interconnecting rods and screws are unchanged. No signs of hardware failure. Ankylosis of C3-C5 is noted. The rem aining vertebral body heights are preserved. Reversal the cervical lordosis is again noted, unchanged. Severe disc space narrowing at C2-C3, C5-C6 and C6-C7. Severe degenerative disease and facet arthropathy of the cervical spine. Moderate to severe bilateral C4-C6 neural foraminal narrowing. No soft tissue abnormalities identified. IMPRESSION: 1. Unchanged alignment of the C3-C4 anterior cervical fusion and posterior C3-C5 fusion with ankylosis from C3 to C5. 2. Severe degenerative disease of the cervical spine. Chest 1view DX EXAM: XR CHEST 1 VIEW 04/05/2016 [facility] DATE: 04/05/2016 10:36 AM CDT Center INDICATION: Abnormal chest sounds COMPARISON: 04/05/2016 at 6:27 AM TECHNIQUE: AP chest IMPRESSION: 1. Cardiomediastinal silhouette is enlarged, unchanged. Aortic atherosclerotic disease. 2. Diffuse haziness of both lungs noted. Although it may be due to underexposure, pulmonary edema or layering pleural effusion cannot be excluded. 3. No acute osseous abnormalities. Chest 1view DX EXAM: XR CHEST 1 VIEW 04/05/2016 [facility] DATE: 04/05/2016 6:21 AM CDT Center INDICATION: Heart failure COMPARISON: 04/04/2016 TECHNIQUE: AP chest IMPRESSION: 1. Cardiac silhouette is upper limit of normal size. Aortic atherosclerotic disease. 2. Prominent reticulations and small alveolar opacities seen bilaterally suggestive of pulmonary edema. Superimposed infection cannot be excluded. Small right pleural effusion. 3. No acute osseous abnormalities. Chest 2 views DX EXAM: XR CHEST 2 VIEWS 04/04/2016 [facility] DATE: 04/04/2016 12:16 PM T Center INDICATION: Shortness of Breath COMPARISON: None FINDINGS: The cardiac silhouette is enlarged. Aortic atherosclerotic changes are present. There is mild biapical scarring with no pneumothorax identified. Scattered interstitial opacities are present with bilater al Bruno B lines. Small pleural effusions are suspected. IMPRESSION: Volume overload. Spine cervical wo Exam: CT cervical spine without contrast. 04/01/2016 [facility] contrast CT INDICATION: Weakness. Center COMPARISON: None. TECHNIQUE: Noncontrast axial imaging of the cervical spine was obtained. Coronal and sagittal sutures were performed. Discussion: Postoperative changes of anterior cervical fusion from C3 to C4 and posterior fusion from C3 to C5 are present. Lateral mass screws are present on the left at C3 and C5 and on the right at C 3, C4 and C5 anchoring parallel rods. Satisfactory alignment of the hardware. Satisfactory alignment of the anterior fusion plate with disc spacer at C3-C4. Ankylosis at C4-C5 is evident. Decompressive laminectomies from C3 to C5. Decreased height of the C5-C6 and C6-C7 disc spaces with marginal osteophytes at these levels. Reversal of the cervical lordosis with its apex at C4-C5. Posterior approach drainage catheter ascends up the operative levels. No large paraspinal fluid collection is identified. IMPRESSION: Postoperative changes of anterior fusion from C3 to C4 and posterior fusion from C3 to C5 with satisfactory alignment. Consultation Notes No Data Provided for This Section Discharge Summaries No Data Provided for This Section History and Physicals No Data Provided for This Section Vital Signs Vital Sign Value Date Comments Source Systolic (mm Hg) 143 04/06/2016 [facility] Diastolic (mm Hg) 69 04/06/2016 [facility] Respitory Rate 39 04/06/2016 [facility] Respitory Rate 17 04/06/2016 [facility] Systolic (mm Hg) 160 04/06/2016 [facility] Diastolic (mm Hg) 70 04/06/2016 [facility] Respitory Rate 25 04/06/2016 [facility] Systolic (mm Hg) 143 04/06/2016 [facility] Diastolic (mm Hg) 63 04/06/2016 [facility] Temperature Oral (F) 98.0 F 04/06/2016 [facility] Temperature Oral (F) 98.1 F 04/06/2016 [facility] Temperature Oral (F) 97.9 F 04/06/2016 [facility] Heart Rate 84 04/04/2016 [facility] Heart Rate 91 04/04/2016 [facility] Heart Rate 77 04/04/2016 [facility] Weight 90.909 04/01/2016 [facility] Height 157.48 cm 04/01/2016 [facility] BMI Calculated 36.66 04/01/2016 [facility] Weight 90.909 04/01/2016 [facility] Weight 90.909 03/28/2016 [facility] BMI Calculated 36.66 03/28/2016 [facility] Height 157.48 cm 03/28/2016 [facility] Encounters Location Location Encounter Encounter Reason Attending ADM DC Status Source Details Type Number For Provider Date Date Visit Outpatient [id number] JORGE 03/15 [facility] [id number] JORGE 03/31 [facility] Outpatient [id number] JORGE 04/01 [facility] [id number] Jorge 04/01 04/06 [facility] Outpatient [id number] JORGE 04/14 [facility] [place] Outpatient [id number] JORGE 05/16 [facility] Outpt Diag [id number] Jorge 05/16 05/17 [facility] [place] [facility] [id number] JORGE 07/05 [id number] Jorge 07/05 07/06 [facility] Procedures Procedure Code Date Perfomer Comments Source Laminectomy with [id number] 04/01/2016 [facility] spinal fusion [place] Cervical spinal [id number] [facility] [place] Gallbladder [id number] [facility] [place] Laparoscopic [id number] [facility] adjustable gastric [facility] [place] Operation [id number] [facility] [place] Shoulder joint [id number] [facility] [place] Tonsillectomy [id number] [facility] [place] Vein reconstruction [id number] [facility], [facility] [place] Assessment and Plan Assessment and Plan Date Source Extracted from:Title: Cardiology Progress Note * 04/06/2016 [facility] Author: Christa Mendes MD Date: 04/06/16 Patient: RUTHY BEST Age: 70 years Sex: Female : 1945 Associated Diagnoses: None Author: Christa Mendes MD Subjective Patient is doing well, breathing well on room air and sitting in chair this morning. Health Status Allergies: Allergic Reactions (All) Severity Not Documented NKDA- No reactions were documented. Canceled/Inactive Reactions (All) Severity Not Documented Motrin- No reactions were documented. Problem list: All Problems COPD (chronic obstructive pulmonary disease) / SNOMED CT 00540623 / Confirmed Depression / SNOMED CT 70469884 / Confirmed Eczema / SNOMED CT 08431569 / Confirmed Eczema / SNOMED CT 85105905 / Confirmed quinn LE Hypertension / SNOMED CT 3939982578 / Confirmed HTN (hypertension) / SNOMED CT 8144404287 / Confirmed Balance problem / SNOMED CT 5358831474 / Confirmed Obesity / SNOMED CT 1637309340 / Confirmed Obesity / SNOMED CT 3185284997 / Confirmed NORMA on CPAP / SNOMED CT 153356023 / Confirmed Pain / SNOMED CT 70831800 / Confirmed Objective Meds Scheduled Meds (23):FLUoxetine, acetaminophen-hydrocodone ([place] 10/325 oral tablet), aspirin, atorvastatin, carvedilol, docusate, famotidine, fenofibrate ( fenofibrate 145 mg oral tablet), folic acid, f urosemide (Lasix 40 mg oral tablet), heparin (heparin 5000 units/mL injectable solution), lidocaine topical (Lidoderm 5% topical film (patch)), lisinopril ( Prinivil), methocarbamol (Robaxin), multivitam in, omega-3 polyunsaturated fatty acids (MaxEPA), potassium chloride, rOPINIRole, remove patch, senna, sodium chloride (Saline Flush 0.9%), tiotropium (Spiriva 18 mcg inhalation capsule), trazodone (trazodone 100 mg oral tablet) Unscheduled Meds (1):iodixanol (Visipaque 320mg/ml) PRN Meds (13):Dextrose 50% in Water IV (Dextrose 50% Syringe), Dextrose 50% in Water IV (Dextrose 50% Syringe), Dextrose 50% in Water IV (Dextrose 50% Syringe) , Insulin regular (insulin regular 100 unit s/mL human recombinant), Insulin regular (insulin regular 100 units/mL human recombinant), acetaminophen-hydrocodone ([place] 10/325 oral tablet), albuterol- ipratropium (DuoNeb inhalation solution), bisac odyl, hydrALAZINE, ondansetron, phenol topical (Chloraseptic 1.4% spray), sodium chloride (Saline Flush 0.9%), tramadol (Ultram 50 mg oral tablet) One Time Meds (1):(Completed) potassium chloride Continuous Infusions: None I&O Input/Output Record In Out Bal 04/06 24hr Tot 90 0 90 04/05 24hr Tot 200 [id number] -[id number] VS/Measurements Measurements from flowsheet : Measurements 04/06/2016 06:41 Height in Feet 5 ft Weight in Pounds 200 lb , Vital Signs (last 24 hrs) Last Charted Temp Oral 98.0 DegF (APR 06 08:11) Heart Rate Apical 66 bpm (APR 06:) Resp Rate H 33BRMIN (APR 06 10:00) SBP H 142mmHg (APR 06:) DBP H 95mmHg (APR 06:) SpO2 94 % (APR 06:) General: Alert and oriented, No acute distress. Eye: Pupils are equal, round and reactive to light, Normal conjunctiva, Vision unchanged. Respiratory: Respirations are non-labored, Breath sounds are equal, Symmetrical chest wall expansion, No chest wall tenderness, BL crackles in both lung bases. Cardiovascular: Normal rate, Regular rhythm, No murmur, No gallop. Gastrointestinal: Soft, Non-tender, Non-distended, Normal bowel sounds. Musculoskeletal Normal range of motion. Normal strength. No tenderness. No deformity. Neurologic: Alert, Oriented, Normal sensory, No focal deficits, Cranial Nerves II-XII are grossly intact. Cognition and Speech: Oriented, Speech clear and coherent. Review / Management Results review: Labs (Last four charted values) WBC 8.8 (APR 06) 6.0 (APR 01) 7.5 (MAR 28) Hgb L 10.6 (APR 06) L 10.5 (APR 01) L 11.8 ( MAR 28) Hct L 30.4 (APR 06) L 31.2 (APR 01) L 35.6 ( MAR 28) Plt H 490 (APR 06) 300 (MAR 30) 298 (MAR 28 ) Na 136 (APR 06) 140 (APR 05) 143 (APR 01) 139 (MAR 28) K C 2.5 (APR 06) C 2.9 (APR 05) 3.8 (APR 01) 4.2 (MAR 28) CO2 25 (APR 06) 27 (APR 05) 28 (APR 01) 31 (MAR 28) Cl 99 (APR 06) 100 (APR 05) 108 (MAR 30) 98 (MAR 28) Cr 0.57 (APR 06) 0.70 (APR 05) 0.74 (APR 01 ) 0.80 (MAR 28) BUN H 24 (APR 06) H 23 (APR 05) 22 (APR 01) H 24 (MAR 28) Glucose Random 93 (APR 06) H 113 (APR 05) H 146 (APR 01 ) 70 (MAR 28) Mg L 1.5 (APR 05) Ca 9.5 (APR 06) 9.1 (APR 05) 8.6 (APR 01) 10.0 (MAR 28) PT H 15.9 (APR 06) INR H 1.24 (APR 06) PTT 35.2 (APR 06) Troponin 0.39 (APR 04) H 0.42 (APR 04) H 0.44 ( APR 04) Total CK 42 (APR 04) 44 (APR 04) 46 (APR 04) . Impression and Plan The patient was seen and examined by me with the resident/[employer]ER/PA and I agree with the History/Exam documented. Pt is a 70 y/o WF with PMH of COPD, HTN, HLD, spinal stenosis presenting to [facility] for C3-C5 laminectomy whos hospital course was c/b elevated troponins and shortness of breath. Problem list: -troponinemia -flash pulmonary edema -HTN -HLD #Myocardial injury -etiology: troponinemia likely 2/2 demand ischemia from flash pulmonary edema. We believe edema result of intra-op fluids. -EKG: no concerning changes for ischemia. -ECHO performed: LVEF 40-45% and decreased overal LV systolic fxn. Per family, they believe previous echo showed similiar findings but echo performed at OSH. -continue coreg, atorvastatin, and adrien inhibitor -no anticoagulation in setting of recent surgery, pt can start low dose ASA when OK by surgery. -please get resting and redistribution thallium study -stop scheduled lasix on discharge due to hypokalemia (2.5). Please replete potassium prior to discharge. -Recommend sending patient with prn lasix 20 mg PO for episodes of shortness of breath and close follow-up after discharge. Patient should also be sent home with scheduled potassium supplementation. Case discussed with Dr. Alberto. We are signing off. Please page us if you have any questions. Addendum by Trey Alberto MD on 04/06/2016 16:42 CARDIOLOGY STAFF I saw and examined the patient with cardiology resident Dr. Mendes, and I agree with findings, assessment and recommended plan of care. Trey Alberto M.D. Extracted from:Title: Cardiology Consult H&P Author: Christa Mendes MD Date: 04/05/16 Patient: RUTHY BEST Age: 70 years Sex: Female : 1945 Associated Diagnoses: None Author: Christa Mendes MD Basic Information Source of history: Self, Spouse. Present at bedside: Significant other. Chief Complaint shortness of breath History of Present Illness Pt is a 70 y/o WF with PMH of COPD, HTN, HLD, spinal stenosis presenting to [facility] for C3-C5 laminectomy. During the procedure patient was receiving fluids and although pt tolerated procedure well, post-op pt developed shortness of breath and desatted to the low 90s. Pt was placed on CPAP with resolution of hypoxia. CXR showed significant pulmonary edema and small pleural effusions. Pt denied chest pain or any other symptoms. Troponins was elevated to 0.44 without EKG changes. Troponins continued to downtrend from initial reading. Cardiology was consulted for elevated troponins with concerns for possible NSTEMI. Review of Systems Constitutional: Weakness, Fatigue, No fever, No chills, No sweats. Eye Respiratory: Shortness of breath. Cardiovascular Gastrointestinal: No nausea, No vomiting, No diarrhea, No abdominal pain. Genitourinary: Negative. Musculoskeletal: Negative. Neurologic: Alert and oriented X4, No confusion, No numbness, No tingling. Health Status Allergies: Allergic Reactions (All) Severity Not Documented NKDA- No reactions were documented. Canceled/Inactive Reactions (All) Severity Not Documented Motrin- No reactions were documented., Allergies (1) Active Reaction NKDA None Documented Current medications: (Selected) Inpatient Medications Ordered Chloraseptic 1.4% spray: 1 spray, TOP, Daily, PRN: Sore Throat Dextrose 50% Syringe: 12.5 gm, 25 mL, IVP, PRN, PRN: Abnormal Lab Result Dextrose 50% Syringe: 25 gm, 50 mL, IVP, PRN, PRN: Abnormal Lab Result Dextrose 50% Syringe: 6.25 gm, 12.5 mL, IVP, PRN, PRN: Abnormal Lab Result DuoNeb inhalation solution: 3 ml, NEB, PRN, PRN: Respiratory Protocol FLUoxetine: 20 mg, 1 cap, PO, Daily Lasix 40 mg oral tablet: 40 mg, 1 tab, PO, Daily Lidoderm 5% topical film (patch): 1 patch, TOP, Daily MaxEPA: 1 gm, 1 cap, PO, Daily Microzide: 12.5 mg, 1 cap, PO, Daily [place] 10/325 oral tablet: 1 tab, PO, Q4H [place] 10/325 oral tablet: 2 tab, PO, Q4H, PRN: Pain Score 7-10 Prinivil: 20 mg, 1 tab, PO, Daily Robaxin: 750 mg, 1 tab, PO, TID Saline Flush 0.9%: 10 ml, IVP, PRN, PRN: Line Flush Saline Flush 0.9%: 10 ml, IVP, Q12H Spiriva 18 mcg inhalation capsule: 18 microgram, 1 inhalation, INHALATION, Daily Ultram 50 mg oral tablet: 50 mg, 1 tab, PO, Q4H, PRN: Pain Score 1-3 Visipaque 320mg/ml: 100 mL, IVP, ONCALL atorvastatin: 10 mg, 1 tab, PO, Daily bisacodyl: 10 mg, 1 supp, HI, Daily, PRN: Constipation carvedilol: 12.5 mg, 1 tab, PO, BID docusate: 100 mg, 1 cap, PO, Q12H famotidine: 20 mg, 2 mL, IVP, Q12H fenofibrate 145 mg oral tablet: 145 mg, 1 tab, PO, Daily folic acid: 1 mg, 1 tab, PO, BID heparin 5000 units/mL injectable solution: 5,000 unit, 1 mL, SUB-Q, Q8H hydrALAZINE: 10 mg, 0.5 mL, IV, Q4H, PRN: Hypertension insulin regular 100 units/mL human recombinant: 3 unit, 0.03 mL, SUB-Q, PRN, PRN: Abnormal Lab Result insulin regular 100 units/mL human recombinant: 5 unit, 0.05 mL, SUB-Q, PRN, PRN: Abnormal Lab Result insulin regular 100 units/mL human recombinant: 7 unit, 0.07 mL, SUB-Q, PRN, PRN: Abnormal Lab Result multivitamin: 1 tab, PO, Daily ondansetron: 4 mg, 2 mL, IVP, Q8H, PRN: Nausea and Vomiting potassium chloride 20 mEq oral tablet, extended release: 20 mEq, PO, Daily potassium chloride: 20 mEq, 1 tab, PO, BID rOPINIRole: 1 mg, 1 tab, PO, TID remove patch: 1 remove patch, TOP, Bedtime senna: 8.6 mg, 1 tab, PO, Q12H Prescriptions Prescribed Ultram 50 mg oral tablet: 50 mg, 1 tab, PO, Q4H, for 7 day, PRN: Pain Score 1-3 , 42 tab, 0 Refill(s) docusate sodium 100 mg oral capsule: 100 mg, 1 cap, PO, Q12H, for 30 day, 60 cap, 0 Refill(s) methocarbamol 750 mg oral tablet: 750 mg, 1 tab, PO, QID, for 30 day, 120 tab, 0 Refill(s) senna 8.6 mg oral tablet: 8.6 mg, 1 tab, PO, Q12H, for 30 day, 60 tab, 0 Refill (s) Documented Medications Documented CeleBREX 100 mg oral capsule: 100 mg, PO, BID, 180 cap, 0 Refill(s) FLUoxetine 20 mg oral capsule: 20 mg, 1 cap, PO, Daily, 0 Refill(s) Spiriva 18 mcg inhalation capsule: 18 microgram, 1 cap, INHALATION, Daily, Use two inhalations of one capsule for each dose, 30 cap, 1 Refill(s) atorvastatin: 10 mg, PO, Daily, 0 Refill(s) calcium citrate: PO, BID, 0 Refill(s) carvedilol: 12.5 mg, PO, BID, 0 Refill(s) fenofibrate 145 mg oral tablet: 145 mg, 1 tab, PO, Daily, 0 Refill(s) folic acid: 1 mg, PO, BID, 0 Refill(s) furosemide 20 mg oral tablet: 20 mg, 1 tab, PO, Daily, 0 Refill(s) hydrochlorothiazide-lisinopril 12.5 mg-20 mg oral tablet: 1 tab, PO, Daily, 30 tab, 0 Refill(s) multivitamin: Daily, 0 Refill(s) omega-3 polyunsaturated fatty acids: PO, 0 Refill(s) rOPINIRole: 1 mg, PO, TID, 0 Refill(s) triamcinolone: intra-ARTICULAR, ONCE, 0 Refill(s), Medications (38) Active Scheduled: (24) acetaminophen-hydrocodone 325-10mg TAB 1 tab, PO, Q4H atorvastatin 10 mg TAB 10 mg 1 tab, PO, Daily carvedilol 12.5 mg TAB 12.5 mg 1 tab, PO, BID docusate sodium 100 mg CAP 100 mg 1 cap, PO, Q12H famotidine 20 mg/2 ml INJ VL 20 mg 2 mL, IVP, Q12H fenofibrate 145 mg tab 145 mg 1 tab, PO, Daily fish oil 1 gm CAP (omega-3 fish oil) 1 gm 1 cap, PO, Daily FLUoxetine 20 mg CAP 20 mg 1 cap, PO, Daily folic acid 1 mg TAB 1 mg 1 tab, PO, BID furosemide 40 mg TAB 40 mg 1 tab, PO, Daily heparin 5000 unit/1 ml INJ VL 5,000 unit 1 mL, SUB-Q, Q8H hydrochlorothiazide 12.5 mg CAP 12.5 mg 1 cap, PO, Daily iodixanol 320 mg/ml 100 ml btl 100 mL, IVP, ONCALL lidocaine 5% top patch 1 patch, TOP, Daily lidocaine patch removal 1 remove patch, TOP, Bedtime lisinopril 20 mg TAB 20 mg 1 tab, PO, Daily methocarbamol 750 mg TAB 750 mg 1 tab, PO, TID multiple vit Therapeutic TAB 1 tab, PO, Daily potassium chloride 20 mEq, PO, Daily potassium chloride 20 mEq ERT 20 mEq 1 tab, PO, BID rOPINIRole 1 mg TAB 1 mg 1 tab, PO, TID senna 8.6 mg TAB 8.6 mg 1 tab, PO, Q12H sodium chloride 0.9% 10ml sterile flush syr BD 10 ml, IVP, Q12H tiotropium bromide 18 microgram INH cap 5's 18 microgram 1 inhalation, INHALATION, Daily Continuous: (0) PRN: (14) acetaminophen-hydrocodone 325-10mg TAB 2 tab, PO, Q4H albuterol-ipratropium 2.5 mg-0.5 mg/3 ml WADE 3 ml, NEB, PRN bisacodyl 10 mg rect SUPP 10 mg 1 supp, HI, Daily Dextrose 50% 50 ml INJ syringe 25 gm 50 mL, IVP, PRN Dextrose 50% 50 ml INJ syringe 12.5 gm 25 mL, IVP, PRN Dextrose 50% 50 ml INJ syringe 6.25 gm 12.5 mL, IVP, PRN hydrALAZINE 20 mg/1 ml VL 10 mg 0.5 mL, IV, Q4H insulin reg human rec 100 unit/ml INJ 3 ml Vial 3 unit 0.03 mL, SUB-Q, PRN insulin reg human rec 100 unit/ml INJ 3 ml Vial 5 unit 0.05 mL, SUB-Q, PRN insulin reg human rec 100 unit/ml INJ 3 ml Vial 7 unit 0.07 mL, SUB-Q, PRN ondansetron 4 mg/2ml INJ VL 4 mg 2 mL, IVP, Q8H phenol-sodium phenolate 1.4% throat SPR 180 ml 1 spray, TOP, Daily sodium chloride 0.9% 10ml sterile flush syr BD 10 ml, IVP, PRN traMADol 50 mg TAB 50 mg 1 tab, PO, Q4H Problem list: All Problems COPD (chronic obstructive pulmonary disease) / SNOMED CT 18083749 / Confirmed Depression / SNOMED CT 43604306 / Confirmed Eczema / SNOMED CT 17089964 / Confirmed Eczema / SNOMED CT 15914751 / Confirmed quinn LE Hypertension / SNOMED CT 5313630318 / Confirmed HTN (hypertension) / SNOMED CT 3600865223 / Confirmed Balance problem / SNOMED CT 5671980756 / Confirmed Obesity / SNOMED CT 1846290212 / Confirmed Obesity / SNOMED CT 9839869129 / Confirmed NORMA on CPAP / SNOMED CT 849140651 / Confirmed Pain / SNOMED CT 84138636 / Confirmed, Active Problems (11) Balance problem COPD (chronic obstructive pulmonary disease) Depression Eczema Eczema HTN (hypertension) Hypertension Obesity Obesity NORMA on CPAP Pain Histories Past Medical History: Active HTN (hypertension) (3561458388) NORMA on CPAP (798004803) Depression (00988959) Pain (05191297) Eczema (01696243) Comments: 03/28/2016 CDT 14:20 CDT - Mee Gracia RN quinn LE Obesity (2352452475) COPD (chronic obstructive pulmonary disease) (04953963) Family History: Pneumonia Sister Heart disease Mother Brother Cancer Father Procedure history: Tonsillectomy (587444093). Cervical spinal fusion (326998676). Laparoscopic adjustable gastric banding (2759895077). Gallbladder operation (541042235). Vein reconstruction (296393606). Operation (1776207928). Operation (1431883265). Shoulder joint operations (883940283). Social History Social and Psychosocial Habits Tobacco 04/01/2016 Use: Former smoker Type: Cigarettes Exposure to Tobacco Smoke None Cigarette Smoking Last 365 Days No Reg Smoking Cessation Counseling No . Physical Examination VS/Measurements Vital Signs (last 24 hrs) Last Charted Temp Oral 98.7 DegF (APR 05 17:10) Heart Rate Apical 64 bpm (APR 05 18:50) Resp Rate H 22BRMIN (APR 05 18:50) SBP 134 mmHg (APR 05 18:50) DBP 62 mmHg (APR 05 18:50) SpO2 96 % (APR 05 18:50) General: Alert and oriented, No acute distress. Eye: Pupils are equal, round and reactive to light, Normal conjunctiva, Vision unchanged. Respiratory: Respirations are non-labored, Breath sounds are equal, Symmetrical chest wall expansion, No chest wall tenderness, BL crackles in both lung bases. Cardiovascular: Normal rate, Regular rhythm, No murmur, No gallop. Gastrointestinal: Soft, Non-tender, Non-distended, Normal bowel sounds. Musculoskeletal Normal range of motion. Normal strength. No tenderness. No deformity. Neurologic: Alert, Oriented, Normal sensory, No focal deficits, Cranial Nerves II-XII are grossly intact. Cognition and Speech: Oriented, Speech clear and coherent. Review / Management Results review: Labs (Last four charted values) WBC 6.0 (APR 01) 7.5 (MAR 28) Hgb L 10.5 (APR 01) L 11.8 (MAR 28) Hct L 31.2 (APR 01) L 35.6 (MAR 28) Plt 300 (APR 01) 298 (MAR 28) Na 140 (APR 05) 143 (APR 01) 139 (MAR 28) K C 2.9 (APR 05) 3.8 (APR 01) 4.2 (MAR 28 ) CO2 27 (APR 05) 28 (APR 01) 31 (MAR 28) Cl 100 (APR 05) 108 (APR 01) 98 (MAR 28) Cr 0.70 (APR 05) 0.74 (APR 01) 0.80 (MAR 28 ) BUN H 23 (APR 05) 22 (APR 01) H 24 (MAR 28) Glucose Random H 113 (APR 05) H 146 (APR 01) 70 (MAR 28 ) Mg L 1.5 (APR 05) Ca 9.1 (APR 05) 8.6 (APR 01) 10.0 (MAR 28) Troponin 0.39 (APR 04) H 0.42 (APR 04) H 0.44 ( APR 04) Total CK 42 (APR 04) 44 (APR 04) 46 (APR 04) . Impression and Plan Pt is a 70 y/o WF with PMH of COPD, HTN, HLD, spinal stenosis presenting to [facility] for C3-C5 laminectomy whos hospital course was c/b elevated troponins and shortness of breath. Problem list: -troponinemia -flash pulmonary edema -HTN -HLD #Myocardial injury -etiology: troponinemia likely 2/2 demand ischemia from flash pulmonary edema. We believe edema result of intra-op fluids. -EKG: no concerning changes for ischemia. -ECHO performed: LVEF 40-45% and decreased overal LV systolic fxn. Per family, they believe previous echo showed similiar findings but echo performed at OSH. -continue lasix to help with diuresis. continue to replace potassium as needed -continue coreg, atorvastatin, and adrien inhibitor -no anticoagulation in setting of recent surgery, pt can start low dose ASA when OK by surgery. -please get resting and redistribution thallium study Case discussed with Dr. Alberto. Thank you for the interesting consult. Please page us if you have any questions. Addendum by Trey Alberto MD on 04/06/2016 08:36 CARDIOLOGY STAFF I have seen and examined the patient with cardiology resident Dr. Mendes, and I agree with findings, assessment and recommended plan of care. Trey Alberto M.D. Plan of Care No Data Provided for This Section Social History Social History Date Source Social History TypeResponse 07/05/2016 MAICOL Mccabe Smoking Status Former smoker; Type: Cigarettes; Exposure to Tobacco Smoke None; Cigarette Smoking Last 365 Days No; Reg Smoking Cessation Counseling No Social History TypeResponse 04/01/2016 [facility] Smoking Status Former smoker; Type: Cigarettes; Exposure to Tobacco Smoke None; Cigarette Smoking Last 365 Days No; Reg Smoking Cessation Counseling No Family History No Data Provided for This Section Advance Directives No Data Provided for This Section Functional Status No Data Provided for This Section
--- OUTSIDE RECORDS SUMMARY | 2019-03-08 23:27 | XMS REPORT ---
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
--- OUTSIDE RECORDS SUMMARY | 2019-03-08 23:27 | XMS REPORT ---
:1945 [facility] Address [address] [place] [address] Care Team Providers Name Role Phone Unavailable Unavailable Unavailable Payers Payer Name Policy Type Policy Number Effective Date Expiration Date Problems This patient has no known problems. Allergies, Adverse Reactions, Alerts Allergy Allergy Status Severity Reaction(s) Onset Inactive Treating Comments Name Type Date Date Clinician codeine DA Active SV 2018-03 00:00:0 0 codeine DA Active SV 2016-08 00:00:0 0 Medications This patient has no known medications.
--- OUTSIDE RECORDS SUMMARY | 2019-03-08 23:27 | XMS REPORT ---
:1945 Author Organization [employer] Care Team Providers Name Role Phone Tyree Pacheco Provider Role Unavailable Allergies No Known Allergies Problems Problem Type Condition Code Onset Dates Condition Status Problem Hyperlipidemia, mixed E78.2 Active Problem Benign essential hypertension I10 Active Problem Chronic obstructive pulmonary J44.9 Active disease Problem Insomnia G47.00 Active Assessment Venous insufficiency I87.2 Active Problem Venous insufficiency I87.2 Active Assessment 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 Active Problem 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 Active Problem Cervicalgia M54.2 Active Problem Obstructive sleep apnea G47.33 Active Problem CHF (congestive heart failure) I50.9 Active Problem Restless leg syndrome G25.81 Active Assessment CHF (congestive heart failure) I50.9 Active Assessment Restless leg syndrome G25.81 Active Assessment Chronic obstructive pulmonary J44.9 Active disease Assessment Cervicalgia M54.2 Active Assessment Hyperlipidemia, mixed E78.2 Active Assessment Benign essential hypertension I10 Active Assessment Obstructive sleep apnea G47.33 Active Assessment Insomnia G47.00 Active Problem 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 Medications Medication Code Code Instructions Start End Status Dosage System Date Date Lipitor [facility] 68203405761 10 MG Orally Active 1 tablet Once a day Aspirin [facility] [place] [address]-57 Active not defined Breo Ellipta [facility] 63880488054 200-25 MCG/INH December Active 1 puff Inhalation Once 27, a day 2018 Folic Acid [facility] 01213262830 1 MG Orally Sept Active 1 tablet Once a day 2017 Coreg [facility] 69799444865 3.125 MG Orally Active 1 tab twice daily CoQ-10 [facility] [place] [address] Active not defined Naproxen [facility] 26825569530 500 MG Orally Active 1 tablet every 12 hrs with food or milk as needed Albuterol [facility] 25916279332 108 (90 Base) Active 2 puffs Sulfate HFA MCG/ACT as needed Inhalation every 6 hrs PRN Shortness of breath, Cough or Wheezing [place] 3 [facility] [address] Active not defined Hyzaar [facility] 52855281245 50-12.5 MG Active 1 tablet Orally Once a day Trazodone HCl [facility] 26261251373 100 MG Orally Active 1 tablet Once a day at bedtime Zyrtec Allergy [facility] 38852779816 10 MG Orally Active 1 tablet Once a day Hydromorphone [facility] 85173502215 4 MG Orally Active 1 tablet HCl every 8 hrs PRN as needed Furosemide [facility] 41954010417 20 MG Orally Active 1 tablet Once a day Singulair [facility] 68156409363 10 MG Orally Active 2 tablets Once a day Potassium [facility] 47768154113 20 MEQ Orally Sept Active 1 tablet Chloride ER Twice a day 23, with food 2018 Neurontin [facility] 23190962146 600 MG Orally Active 1 tablet Three times a day Requip [facility] 78032192677 1 MG Orally 5 Active 1 tablet times a day Methocarbamol [facility] 46836465693 750 MG Orally Active 1 tablet every 8 hrs PRN Pantoprazole [facility] 03314100928 40 MG Orally Active 1 tablet Sodium Once a day Duloxetine HCl [facility] 93853977284 60 MG Orally Active 1 capsule Twice a day Results No Known Results Summary Purpose eClinicalWorks Submission
--- OUTSIDE RECORDS SUMMARY | 2019-03-08 23:27 | XMS REPORT ---
:1945 Author Organization eClinicalWorks Care Team Providers Name Role Phone Junior Tyree Provider Role Unavailable Allergies, Adverse Reactions, Alerts Substance Reaction Event Type N.K.D.A. Info Not Available Non Drug Allergy Problems Problem Type Condition Code Onset Dates Condition Status Problem Chronic obstructive pulmonary J44.9 Active disease Problem Obstructive sleep apnea G47.33 Active Problem Benign essential hypertension I10 Active Problem 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 Active Assessment CHF (congestive heart failure) I50.9 Active Problem Insomnia G47.00 Active Assessment Cervicalgia M54.2 Active Assessment Chronic obstructive pulmonary J44.9 Active disease Problem Iron deficiency anemia, unspecified D50.9 Active iron deficiency anemia type Problem Restless leg syndrome G25.81 Active Problem Cervicalgia M54.2 Active Problem Venous insufficiency I87.2 Active Problem CHF (congestive heart failure) I50.9 Active Assessment Insomnia G47.00 Active Assessment Hyperlipidemia, mixed E78.2 Active Assessment Restless leg syndrome G25.81 Active Assessment Obstructive sleep apnea G47.33 Active Assessment Benign essential hypertension I10 Active Assessment Plantar fasciitis, left M72.2 Active Problem 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 Assessment Venous insufficiency I87.2 Active Assessment Iron deficiency anemia, unspecified D50.9 Active iron deficiency anemia type Problem Hyperlipidemia, mixed E78.2 Active Medications Medication Code Code Instructions Start End Status Dosage System Date Date Aspirin [facility] [address]-09 Active not defined Pantoprazole [facility] 62996854673 40 MG Orally Active 1 tablet Sodium Once a day Zyrtec Allergy [facility] 75599613960 10 MG Orally Active 1 tablet Once a day [place] 3 [facility] [address] Active not defined Naproxen [facility] 32314540953 500 MG Orally Active 1 tablet every 12 hrs with food or milk as needed Pantoprazole [facility] 21957578998 40 MG Orally Active 1 tablet Sodium Once a day Hyzaar [facility] 23349944799 50-12.5 MG Active 1 tablet Orally Once a day Singulair [facility] 79339903210 10 MG Orally Active 2 tablets Once a day Furosemide [facility] 28730745725 20 MG Orally Active 1 tablet Once a day Hydromorphone [facility] 47525199509 4 MG Orally Active 1 tablet HCl every 8 hrs PRN as needed Naproxen [facility] 46803382484 500 MG Orally Active 1 tablet every 12 hrs with food or milk as needed Requip [facility] 61628570821 1 MG Orally 5 Active 1 tablet times a day Folic Acid [facility] 12126356260 1 MG Orally Active 1 tablet Twice a day Breo Ellipta [facility] 49492057680 200-25 MCG/INH Active 1 puff Inhalation Once a day Lipitor [facility] 71794711908 20 MG Orally Active 1 tablet Once a day Potassium [facility] 25754223668 20 MEQ Orally Active 1 tablet Chloride ER Twice a day with food Albuterol [facility] 70759276676 108 (90 Base) Active 2 puffs Sulfate HFA MCG/ACT as needed Inhalation every 6 hrs PRN Shortness of breath, Cough or Wheezing CoQ-10 [facility] 7[address]26-98647 Active not defined Hyzaar [facility] 28537959461 50-12.5 MG Active 1 tablet Orally Once a day Requip [facility] 52303244790 1 MG Orally 5 Active 1 tablet times a day Methocarbamol [facility] 21497702296 750 MG Orally Active 1 tablet every 8 hrs PRN Coreg [facility] 50697804226 3.125 MG Orally Active 1 tab twice daily Neurontin [facility] 22232786942 600 MG Orally Active 1 tablet Three times a day Trazodone HCl [facility] 17309850092 100 MG Orally Active 1 tablet Once a day at bedtime Lipitor [facility] 90867543707 10 MG Orally Active 1 tablet Once a day Duloxetine HCl [facility] 70046329656 60 MG Orally Active 1 capsule Twice a day Results No Known Results Summary Purpose eClinicalWorks Submission
--- OUTSIDE RECORDS SUMMARY | 2019-03-08 23:28 | XMS REPORT ---
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 Problem Hyperlipidemia, mixed E78.2 Active Problem 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 Active Problem Insomnia G47.00 Active Problem Iron deficiency anemia, unspecified D50.9 Active iron deficiency anemia type Problem Restless leg syndrome G25.81 Active Problem Cervicalgia M54.2 Active Problem Venous insufficiency I87.2 Active Problem CHF (congestive heart failure) I50.9 Active Medications Medication Code Code Instructions Start End Status Dosage System Date Date Singulair [facility] 73368789564 10 MG Orally Active 2 tablets Once a day Trazodone HCl [facility] 01661407628 100 MG Orally Active 1 tablet Once a day at bedtime Furosemide [facility] [address]-44 20 MG Orally Active 60mg QAM Twice a day and 40mg QPM Zyrtec Allergy [facility] 71223361038 10 MG Orally Active 1 tablet Once a day Requip [facility] 69225566368 1 MG Orally 5 Active 1 tablet times a day Pantoprazole [facility] 14556670312 40 MG Orally Active 1 tablet Sodium Once a day Duloxetine HCl [facility] 41024933079 60 MG Orally Active 1 capsule Twice a day Lipitor [facility] 16649752852 40 MG Orally Active 1 tablet Once a day Coreg [facility] [address]-88 3.125 MG Orally Active 1 tab twice daily Neurontin [facility] [address]-20 600 MG Orally Active 1 tablet twice a day Folic Acid [facility] 70943127361 1 MG Orally Active 1 tablet Twice a day Naproxen [facility] 31224929459 500 MG Orally Active 1 tablet every 12 hrs with food or milk as needed Eliquis 2.5 mg NDC 0 2.5 mg by mouth Active one twice daily Spironolactone [facility] [address]-52 25 MG Orally Active 1 tablet Once a day Aspirin [facility] [address]-03 Active not defined Methocarbamol [facility] 78914195120 750 MG Orally Active 1 tablet every 8 hrs PRN Hyzaar [facility] 09236190502 50-12.5 MG Active 1 tablet Orally Once a day [place] 3 [facility] [address] Active not defined CoQ-10 [facility] [address] Active not defined Breo Ellipta [facility] 44939915139 200-25 MCG/INH Active 1 puff Inhalation Once a day Naproxen [facility] 87499508220 500 MG Orally Active 1 tablet every 12 hrs with food or milk as needed Lipitor [facility] 24839002784 20 MG Orally Active 1 tablet Once a day Albuterol Sulfate [facility] 33431948751 108 (90 Base) Active 2 puffs HFA MCG/ACT as needed Inhalation every 6 hrs PRN Shortness of breath, Cough or Wheezing Hydromorphone HCl [facility] 45681891261 4 MG Orally Active 1 tablet every 8 hrs PRN as needed Potassium [facility] [address]-04 20 MEQ Orally Active 1 tablet Chloride ER Once a day with food Results No Known Results Summary Purpose eClinicalWorks Submission
--- OUTSIDE RECORDS SUMMARY | 2019-03-08 23:28 | XMS REPORT ---
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 and stage 1 through stage 4 chronic kidney disease, or chronic kidney disease Problem Spinal stenosis of cervical region M48.02 Active Problem Other specified postprocedural Z98.890 Active states Problem [facility] current use of inhaled Z79.51 Active steroid Problem [employer] current use of opiate Z79.891 Active analgesic Problem Personal history of other venous Z86.718 Active thrombosis and embolism Problem Family history of ischemic heart Z82.49 Active disease and other diseases of the circulatory system Problem Major depressive disorder F32.9 Active Problem Family history of other mental and Z81.8 Active behavioral disorders Problem Body mass index (BMI) 40.0-44.9, Z68.41 Active adult Problem Family history of malignant Z80.9 Active neoplasm, unspecified Problem Morbid (severe) obesity due to E66.01 Active excess calories Problem Other specified polyneuropathies G62.89 Active Problem Hypokalemia E87.6 Active Problem [employer] current use of Z79.01 Active anticoagulant Problem Venous insufficiency I87.2 Active Problem Chronic kidney disease, unspecified N18.9 Active Problem Gastro-esophageal reflux disease K21.9 Active without esophagitis Problem CHF (congestive heart failure) I50.9 Active Problem Mixed incontinence N39.46 Active Problem Difficulty in walking, not R26.2 Active elsewhere classified Assessment Hyperlipidemia, mixed E78.2 Active Problem 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 Problem Other muscle spasm M62.838 Active Problem Hyperlipidemia, mixed E78.2 Active Problem Presence of right artificial Z96.611 Active shoulder joint Problem Chronic obstructive pulmonary J44.9 Active disease Problem Presence of urogenital implants Z96.0 Active Problem Restless leg syndrome G25.81 Active Problem Bariatric surgery status Z98.84 Active Problem 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 Problem Presence of right artificial knee Z96.651 Active joint Problem Insomnia G47.00 Active Problem Acquired absence of other specified Z90.49 Active parts of digestive tract Problem Cervicalgia M54.2 Active Problem Personal history of nicotine Z87.891 Active dependence Problem History of falling Z91.81 Active Problem Acquired absence of both cervix and Z90.710 Active uterus Medications Medication Code System Code Instructions Start Date End Date Status Dosage Lipitor [facility] 88421738730 20 MG Orally Once Active 1 tablet a day Results No Known Results Summary Purpose eClinicalWorks Submission
--- OUTSIDE RECORDS SUMMARY | 2019-03-08 23:28 | XMS REPORT | Summary of Care ---
:1945 Author Organization [facility] Address [address] [place] [address] Care Team Providers Name Role Phone Tyree Pacheco Primary Care Provider Reason for Visit Reason Comments Refill Request Lasix Encounter Details Date Type Department Care Team Description 02/05/2019 Refill [facility] Cardiology- Layla Schaeffer MD Refill Request (Lasix ) [address], [address] [place] [address] [place], [place] [address] Allergies Active Allergy Reactions Severity Noted Date Comments Codeine Nausea and/or Vomiting High 12/12/2016 documented as of this encounter (statuses as of 02/05/2019) Medications Medication Sig Dispensed Refills Start Date End Date Status methocarbamol Take 750 mg 0 Active (ROBAXIN) 750 mg by mouth 3 tablet (three) times daily as needed. foLIC acid (FOLATE) 1 TAKE 1 180 Tab 0 09/28/2015 Active mg tablet TABLET BY MOUTH TWICE A DAY rOPINIRole (REQUIP) 1 Take 1 270 tablet 3 11/16/2015 Active mg tabletIndications: tablet by Restless legs syndrome mouth 3 (three) times daily. gabapentin (NEURONTIN) Take 1 180 tablet 3 11/16/2015 Active 600 mg tablet by tabletIndications: mouth 2 Chronic back pain (two) times daily. pantoprazole Take 1 90 tablet 3 11/16/2015 Active (PROTONIX) 40 mg EC tablet by tabletIndications: mouth daily. Gastroesophageal reflux disease without esophagitis traZODONE 100 mg Take 100 mg 0 Active tablet by mouth at bedtime. HYDROmorphOne 4 mg Take 2 mg by 0 Active tabletIndications: mouth 4 Syncope, unspecified (four) times syncope type, daily. Essential hypertension, Obstructive sleep apnea syndrome naproxen 500 mg tablet Take 1 180 tablet 0 08/11/2017 Active tablet by mouth 2 (two) times daily with meals. DULoxetine 60 mg TAKE ONE 3 01/05/2018 Active capsule CAPSULE BY MOUTH EVERY DAY BREO ELLIPTA 200-25 0 01/25/2018 Active mcg/dose DsDv atorvastatin 40 mg Take 1 60 tablet 5 05/08/2018 Active tablet tablet by mouth daily. apixaban 2.5 mg tablet Take 1 180 tablet 1 08/27/2018 Active tablet by mouth 2 (two) times daily. KCL 20 mEq Take 1 60 tablet 5 09/25/2018 Active tabletIndications: tablet by (HFpEF) heart failure mouth daily. with preserved ejection fraction spironolactone 25 mg Take 1 30 tablet 5 10/18/2018 Active tabletIndications: tablet by (HFpEF) heart failure mouth daily. with preserved ejection fraction carvedilol 3.125 mg Take 1 180 tablet 1 01/22/2019 Active tablet tablet by mouth 2 (two) times daily with meals. furosemide 40 mg 60 mg AM and 225 tablet 0 02/05/2019 Active tabletIndications: 40 mg PM (HFpEF) heart failure with preserved ejection fraction furosemide 40 mg 60 mg AM and 90 tablet 1 01/16/2019 Discontinued tabletIndications: 40 mg PM 9 (HFpEF) heart failure with preserved ejection fraction documented as of this encounter (statuses as of 02/05/2019) Active Problems Problem Noted Date (HFpEF) heart failure with preserved ejection fraction 05/29/2017 Bilateral carotid artery disease 02/06/2017 Essential hypertension 06/19/2015 COPD (chronic obstructive pulmonary disease) 06/19/2015 Hyperlipidemia 06/19/2015 Sleep apnea 06/19/2015 Osteoarthritis of both knees 06/19/2015 documented as of this encounter (statuses as of 02/05/2019) Social History Tobacco Use Types Packs/Day Years Used Date Former Smoker Cigarettes Smokeless Tobacco: Never Used Alcohol Use Drinks/Week oz/Week Comments No Sex Assigned at Date Recorded Not on file Job Start Date Occupation Industry Not on file Not on file Not on file Travel History Travel Start Travel End No recent travel history available. documented as of this encounter Last Filed Vital Signs Not on filedocumented in this encounter Plan of Treatment Health Maintenance Due Date Last Done Comments DTaP,Tdap,and Td Vaccines (1 - Tdap) 1963 MAMMOGRAM 1984 COLONOSCOPY 1994 Zoster Recombinant Vaccine (SHINGRIX) (1 of 2) 1994 LUNG CANCER SCREEN: Recommended for age 55-80 with 30 + 1999 pack year history Medicare Wellness Visit 2009 Osteoporosis Screening 2009 PNEUMOCOCCAL VACCINES 65+ (1 of 2 - PCV13) 2009 INFLUENZA VACCINE 03/03/2019 documented as of this encounter Results Not on filedocumented in this encounter Visit Diagnoses Diagnosis (HFpEF) heart failure with preserved ejection fraction documented in this encounter Insurance Payer Benefit Plan Subscriber ID Effective Phone Address Type / Group Dates [employer]ET[employer] - [employer] [id number]-[place] [address] Medicare Adv MANAGED MEDICARE ADV nt [id number] [place] [address] documented as of this encounter
--- OUTSIDE RECORDS SUMMARY | 2019-03-08 23:28 | XMS REPORT ---
[...] Start End Status Dosage System Date Date Duloxetine HCl [facility] 36999629552 60 MG Orally Active 1 capsule Twice a day Neurontin [facility] 88092224294 600 MG Orally Active 1 tablet Three times a day Lipitor [place] 47769278083 10 MG Orally Active 1 tablet Once a day Hydromorphone HCl [facility] 64392079823 4 MG Orally Active 1 tablet every 8 hrs PRN as needed Hyzaar [facility] 29633315876 50-12.5 MG Active 1 tablet Orally Once a day [place] 3 [facility] [address] Active not defined CoQ-10 [facility] [address] Active not defined Albuterol Sulfate [facility] 45640608999 108 (90 Base) Active 2 puffs HFA MCG/ACT as needed Inhalation every 6 hrs PRN Shortness of breath, Cough or Wheezing Trazodone HCl [facility] 99685901078 100 MG Orally Active 1 tablet Once a day at bedtime Naproxen [facility] 31222685514 500 MG Orally Active 1 tablet every 12 hrs with food or milk as needed Eliquis 2.5 mg NDC 0 2.5 mg by mouth Active one twice daily Folic Acid [facility] 84732848763 1 MG Orally Active 1 tablet Twice a day Zyrtec Allergy [facility] 03751546085 10 MG Orally Active 1 tablet Once a day Furosemide [facility] 00169297792 20 MG Orally Active 3 tablet Twice a day Breo Ellipta [facility] 48535428743 200-25 MCG/INH Active 1 puff Inhalation Once a day Lipitor [facility] 93451447672 20 MG Orally Active 1 tablet Once a day Pantoprazole [facility] 91502338142 40 MG Orally Active 1 tablet Sodium Once a day Aspirin [facility] [address]-67 Active not defined Methocarbamol [facility] 14835081235 750 MG Orally Active 1 tablet every 8 hrs PRN Naproxen [facility] 01419465927 500 MG Orally Active 1 tablet every 12 hrs with food or milk as needed Requip [facility] 42208380034 1 MG Orally 5 Active 1 tablet times a day Hyzaar [facility] 03450175032 50-12.5 MG Active 1 tablet Orally Once a day Singulair [facility] 61329597926 10 MG Orally Active 2 tablets Once a day Coreg [facility] [address]-36 3.125 MG Orally Active 1 tab twice daily Pantoprazole [facility] 10784220797 40 MG Orally Active 1 tablet Sodium Once a day Potassium [facility] 02302000945 20 MEQ Orally Active 1 tablet Chloride ER Twice a day with food Spironolactone [facility] [address]-10 25 MG Orally Active 1 tablet Once a day Results No Known Results Summary Purpose eClinicalWorks Submission
--- OUTSIDE RECORDS SUMMARY | 2019-03-08 23:28 | XMS REPORT ---
[...] CHF (congestive heart failure) I50.9 Active Assessment Plantar fasciitis, left M72.2 Active Assessment Insomnia G47.00 Active Assessment Restless leg syndrome G25.81 Active Assessment Obstructive sleep apnea G47.33 Active Assessment Benign essential hypertension I10 Active Assessment Hyperlipidemia, mixed E78.2 Active Problem 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 Assessment Venous insufficiency I87.2 Active Assessment Iron deficiency anemia, unspecified D50.9 Active iron deficiency anemia type Problem Hyperlipidemia, mixed E78.2 Active Medications Medication Code Code Instructions Start End Status Dosage System Date Date Hyzaar [facility] 09162952675 50-12.5 MG Active 1 tablet Orally Once a day Zyrtec Allergy [facility] 45839471486 10 MG Orally Active 1 tablet Once a day Hydromorphone HCl [facility] 56459807493 4 MG Orally Active 1 tablet every 8 hrs as needed PRN Trazodone HCl [facility] 20025408237 150 MG Orally Active 1 tablet Once a day at bedtime Requip [facility] 37758942058 1 MG Orally 5 Active 1 tablet times a day Breo Ellipta [facility] 01269542721 200-25 MCG/INH Active 1 puff Inhalation Once a day Albuterol Sulfate [facility] 06167071333 108 (90 Base) Active 2 puffs HFA MCG/ACT as needed Inhalation every 6 hrs PRN Shortness of breath, Cough or Wheezing Duloxetine HCl [facility] 08561111560 60 MG Orally Active 1 capsule Twice a day Naproxen [place] 56298518831 500 MG Orally December Inactive 1 tablet every 12 hrs 19, with food 2019 or milk as needed [place] 3 [facility] [address] Active not defined Potassium [facility] 71342268841 20 MEQ Orally Active 1 tablet Chloride ER Once a day with food Naproxen [facility] 17306886359 500 MG Orally Active 1 tablet every 12 hrs with food or milk as needed Duloxetine HCl [facility] 11480110356 60 MG Orally Active 1 capsule Twice a day Pantoprazole [facility] 94686476759 40 MG Orally Active 1 tablet Sodium Once a day Coreg [facility] 04994546549 3.125 MG Active 1 tab Orally twice daily Neurontin [facility] 17087661384 600 MG Orally Active 1 tablet Three times a day Ventolin HFA [facility] 79314337617 108 (90 Base) November 28, Active 2 puffs MCG/ACT 2019 as needed Inhalation every 6 hrs Folic Acid [facility] 58356294311 1 MG Orally Active 1 tablet Twice a day Eliquis 2.5 mg [facility] 07186781702 2.5 mg by Active one mouth twice daily Methocarbamol [facility] 65490848127 750 MG Orally Active 1 tablet every 8 hrs PRN Spironolactone [facility] 44931015562 25 MG Orally Active 1 tablet Once a day Pantoprazole [facility] 81865885581 40 MG Orally Active 1 tablet Sodium Once a day Hyzaar [facility] 15773615095 50-12.5 MG Active 1 tablet Orally Once a day CoQ-10 [facility] [address]27-[address] Active not defined Furosemide ND 50763604239 20 MG Orally Active 1 tablet Once a day Requip [facility] 56124966972 1 MG Orally 5 Active 1 tablet times a day Singulair [facility] 02780780794 10 MG Orally Active 2 tablets Once a day Aspirin [facility] [address]-01 Active not defined Lipitor [facility] 28804304996 10 MG Orally Active 1 tablet Once a day Results No Known Results Summary Purpose eClinicalWorks Submission
--- OUTSIDE RECORDS SUMMARY | 2019-03-08 23:28 | XMS REPORT ---
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.21 Active Assessment Chronic obstructive pulmonary J44.9 Active disease Problem 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 and stage 1 through stage 4 chronic kidney disease, or chronic kidney disease Assessment Hyperlipidemia, mixed E78.2 Active Problem Spinal stenosis of cervical region M48.02 Active Problem Other specified postprocedural Z98.890 Active states Problem [facility] current use of inhaled Z79.51 Active steroid Problem [facility] current use of opiate Z79.891 Active analgesic [...] G62.89 Active Problem Hypokalemia E87.6 Active Problem 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 of Z79.01 Active anticoagulant Problem Venous insufficiency I87.2 Active Problem Chronic kidney disease, unspecified N18.9 Active Problem Gastro-esophageal reflux disease K21.9 Active without esophagitis Problem CHF (congestive heart failure) I50.9 Active Problem Mixed incontinence N39.46 Active Problem Difficulty in walking, not R26.2 Active elsewhere classified Assessment Benign essential hypertension I10 Active Problem 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 Assessment CHF (congestive heart failure) I50.9 Active Problem Other muscle spasm M62.838 Active Problem [...] and Z90.710 Active uterus Medications Medication Code Code Instructions Start End Status Dosage System Date Date Requip [facility] 87020436095 1 MG Orally 5 Active 1 tablet times a day Potassium [facility] 56464532852 20 MEQ Orally Active 1 tablet Chloride ER Once a day with food CoQ-10 [facility] [address]709-18318 Active not defined Hyzaar [facility] 38513523042 50-12.5 MG Active 1 tablet Orally Once a day Hydromorphone HCl [facility] 95699205367 4 MG Orally Active 1 tablet every 8 hrs as needed PRN Trazodone HCl [facility] 91300555278 150 MG Orally Active 1 tablet Once a day at bedtime Duloxetine HCl [facility] 92211610385 60 MG Orally Active 1 capsule Twice a day Breo Ellipta [facility] 45065652210 200-25 MCG/INH Active 1 puff Inhalation Once a day Aspirin [facility] [address]-38 Active not defined Duloxetine HCl [facility] 56517597146 60 MG Orally Active 1 capsule Twice a day Eliquis 2.5 mg [facility] 54457297950 2.5 mg by Active one mouth twice daily Spironolactone [facility] 32399769562 25 MG Orally Active 1 tablet Once a day Folic Acid [facility] 20847152340 1 MG Orally Active 1 tablet Twice a day Coreg [facility] 52175332798 12.5 MG Orally Inactive 1 tab twice daily Pantoprazole [facility] 04069372024 40 MG Orally Active 1 tablet Sodium Once a day Singulair [facility] 35256956162 10 MG Orally Active 2 tablets Once a day Lipitor [facility] 20127743509 10 MG Orally Inactive 1 tablet Once a day Furosemide [facility] 71905535396 40 MG Orally Inactive 1 tablet Once a day Zyrtec Allergy [facility] 26176028066 10 MG Orally Active 1 tablet Once a day Zwingle 3 [facility] 18437-47[address] Active not defined Ferrous Sulfate [facility] [address]-58 324 MG Orally Active 1 tablet Once a day Requip [facility] 19962679740 1 MG Orally 5 Active 1 tablet times a day Ventolin HFA [facility] 27952599354 108 (90 Base) November 28, Active 2 puffs MCG/ACT 2019 as needed Inhalation every 6 hrs Albuterol Sulfate [facility] 38266483288 108 (90 Base) Inactive 2 puffs HFA MCG/ACT as needed Inhalation every 6 hrs PRN Shortness of breath, Cough or Wheezing Methocarbamol [facility] 15328245593 750 MG Orally Active 1 tablet every 8 hrs PRN Hyzaar [facility] 63370623987 50-12.5 MG Active 1 tablet Orally Once a day Pantoprazole [facility] 85203305685 40 MG Orally Active 1 tablet Sodium Once a day Neurontin [facility] 62114287263 600 MG Orally Active 1 tablet Three times a day Results No Known Results Summary Purpose eClinicalWorks Submission
--- OUTSIDE RECORDS SUMMARY | 2019-03-08 23:28 | XMS REPORT | Summary of Care ---
:1945 Author Organization [facility] Address [address] [place] [address] Care Team Providers Name Role Phone Tyree Pacheco Primary Care Provider Encounter Details Date Type Department Care Team Description 01/25/2019 Orders Only [facility] Doctor Unassigned, [address] [facility] [place] [address] [address] [place] [address] Allergies Active Allergy Reactions Severity Noted Date Comments Codeine Nausea and/or Vomiting High 12/12/2016 documented as of this encounter (statuses as of 01/25/2019) Medications Medication Sig Dispensed Refills Start Date End Date Status methocarbamol (ROBAXIN) Take 750 mg by 0 Active 750 mg tablet mouth 3 (three) times daily as needed. foLIC acid (FOLATE) 1 mg TAKE 1 TABLET 180 Tab 0 09/28/2015 Active tablet BY MOUTH TWICE A DAY rOPINIRole (REQUIP) 1 mg Take 1 tablet 270 tablet 3 11/16/2015 Active tabletIndications: by mouth 3 Restless legs syndrome (three) times daily. gabapentin (NEURONTIN) Take 1 tablet 180 tablet 3 11/16/2015 Active 600 mg by mouth 2 tabletIndications: (two) times Chronic back pain daily. pantoprazole (PROTONIX) Take 1 tablet 90 tablet 3 11/16/2015 Active 40 mg EC by mouth daily. tabletIndications: Gastroesophageal reflux disease without esophagitis traZODONE 100 mg tablet Take 100 mg by 0 Active mouth at bedtime. HYDROmorphOne 4 mg Take 2 mg by 0 Active tabletIndications: mouth 4 (four) Syncope, unspecified times daily. syncope type, Essential hypertension, Obstructive sleep apnea syndrome naproxen 500 mg tablet Take 1 tablet 180 tablet 0 08/11/2017 Active by mouth 2 (two) times daily with meals. DULoxetine 60 mg capsule TAKE ONE 3 01/05/2018 Active CAPSULE BY MOUTH EVERY DAY BREO ELLIPTA 200-25 0 01/25/2018 Active mcg/dose DsDv atorvastatin 40 mg Take 1 tablet 60 tablet 5 05/08/2018 Active tablet by mouth daily. apixaban 2.5 mg tablet Take 1 tablet 180 tablet 1 08/27/2018 Active by mouth 2 (two) times daily. KCL 20 mEq Take 1 tablet 60 tablet 5 09/25/2018 Active tabletIndications: by mouth daily. (HFpEF) heart failure with preserved ejection fraction spironolactone 25 mg Take 1 tablet 30 tablet 5 10/18/2018 Active tabletIndications: by mouth daily. (HFpEF) heart failure with preserved ejection fraction furosemide 40 mg 60 mg AM and 40 90 tablet 1 01/16/2019 Active tabletIndications: mg PM (HFpEF) heart failure with preserved ejection fraction carvedilol 3.125 mg Take 1 tablet 180 tablet 1 01/22/2019 Active tablet by mouth 2 (two) times daily with meals. documented as of this encounter (statuses as of 01/25/2019) Active Problems Problem Noted Date (HFpEF) heart failure with preserved ejection fraction 05/29/2017 Bilateral carotid artery disease 02/06/2017 Essential hypertension 06/19/2015 COPD (chronic obstructive pulmonary disease) 06/19/2015 Hyperlipidemia 06/19/2015 Sleep apnea 06/19/2015 Osteoarthritis of both knees 06/19/2015 documented as of this encounter (statuses as of 01/25/2019) Social History Tobacco Use Types Packs/Day Years [...] filedocumented in this encounter Plan of Treatment Date Type Specialty Care Team Description 02/06/2019 Office Visit Cardiology Layla Schaeffer MD [address] [place] [address] [place] [address] [id number] Health Maintenance Due Date Last Done Comments [...] VACCINE 03/03/2019 documented as of this encounter Procedures Procedure Name Priority Date/Time Associated Diagnosis Comments MEDICATION CORRESPONDENCE Routine 01/25/2019 12:01 AM CDT documented in this encounter Results Not on filedocumented in this encounter Insurance Payer Benefit Plan Subscriber ID Effective Phone Address Type / Group Dates AETNA - AETNA [id number] 2014-Zuleyma DOYLE Medicare Adv MANAGED MEDICARE [place] nt [id number] [place] [address] documented as of this encounter
--- OUTSIDE RECORDS SUMMARY | 2019-03-08 23:29 | XMS REPORT | Summary of Care ---
:1945 Author Organization [facility] Address [address] [place] [id number] Care Team Providers Name Role Phone Tyree Pacheco Primary Care Provider Reason for Visit Reason Comments Rx Concern/Question Talk To Nurse Encounter Details Date Type Department Care Team Description 02/27/2019 Telephone [facility] Layla Schaeffer MD Rx Concern/Question; Cardiology- [address] Talk To Nurse [address] [place] [address] [address] [place] [id number] [phone] Allergies Active Allergy Reactions Severity Noted Date Comments Codeine Nausea and/or Vomiting High 12/12/2016 documented as of this encounter (statuses as of 02/27/2019) Medications Medication Sig Dispensed Refills Start Date [...] 05/08/2018 Active tablet tablet by mouth daily. KCL 20 mEq Take 1 60 [...] (HFpEF) heart failure with preserved ejection fraction apixaban 2.5 mg tablet Take 1 180 tablet 1 02/27/2019 Active tablet by mouth 2 (two) times daily. apixaban 2.5 mg tablet Take 1 180 tablet 1 08/27/2018 Discontinued tablet by 9 mouth 2 (two) times daily. documented as of this encounter (statuses as of 02/27/2019) Active Problems Problem Noted Date (HFpEF) heart failure with preserved ejection fraction 05/29/2017 Bilateral carotid artery disease 02/06/2017 Essential hypertension 06/19/2015 COPD (chronic obstructive pulmonary disease) 06/19/2015 Hyperlipidemia 06/19/2015 Sleep apnea 06/19/2015 Osteoarthritis of both knees 06/19/2015 documented as of this encounter (statuses as of 02/27/2019) Social History Tobacco Use Types Packs/Day Years [...] of 2 - PCV13) 2009 INFLUENZA VACCINE (#1) 2019 documented as of this encounter Results Not on filedocumented in this encounter Insurance Payer Benefit Plan Subscriber ID Effective Phone Address Type / Group Dates AETNA - AETNA [id number] 2014-Zuleyma Gamble [address] Medicare Adv MANAGED MEDICARE ADV nt [id number] [place] [address] documented as of this encounter
[2019-03-08] MEDS ORDERED: TETANUS & DIPHTHERIA TOX,ADULT 0.5 ML VIAL ONE (23:47)
[2019-03-08] MEDS ORDERED: LIDOCAINE 2% MPF 5 ML VIAL ONE (23:47)
--- NOTE | 2019-03-09 01:23 | ER ---
Nurse's Notes [facility] Name: Little Stafford Age: 73 yrs Sex: Female : 1945 Arrival Date: 03/08/2019 Time: 23:27 Bed 3 Private MD: Diagnosis: Laceration without foreign body of other part of head Presentation: 03/08 23:32 Presenting complaint: Patient states: right knee locked up and pt fell hitting back of ak1 her head. pt denies LOC, pt denies dizziness. pt stated to EMS she is on a blood thinner and has fallen 3 times this past month and has not "been checked out". Care prior to arrival: None. Mechanism of Injury: Fall from standing position. an unknown distance. Trauma event details: Injury occurred in the [facility], Injury occurred: at home. Injury occurred: March 08, 2019 Injury occurred at: 23:32. 23:32 Acuity: KELLEY 3 ak1 23:32 Method Of Arrival: EMS: [facility] ak 23:37 Transition of care: patient was not received from another setting of care. Onset of ak1 symptoms was March 08, 2019. Risk Assessment: Do you want to hurt yourself or someone else? Patient reports no desire to harm self or others. Initial Sepsis Screen: Does the patient meet any 2 criteria? No. Patient's initial sepsis screen is negative. Does the patient have a suspected source of infection? No. Patient's initial sepsis screen is negative. Trauma Activation: Alert Physician: ED Physician; Name: Dr. Glasgow; Notified At: 23:19; Arrived At: 23:19 Physician: General Surgeon; Name: ; Notified At: 23:19; Arrived At: Physician: Radiology; Name: Halley; Notified At: 23:19; Arrived At: 23:19 Physician: Respiratory; Name: ; Notified At: 23:19; Arrived At: Physician: Lab; Name: ; Notified At: 23:19; Arrived At: Historical: - Allergies: 23:42 Codeine; ak1 - Home Meds: 23:42 atorvastatin 20 mg oral tab 1 tab once daily [Active]; carvedilol 3.125 mg oral tab 1 ak1 tab 2 times per day for Hypertension [Active]; losartan-hydrochlorothiazide 50-12.5 mg Oral tab 1 tab once daily [Active]; Requip 1 mg Oral tab 1 tab 6 times a day [Active]; gabapentin 600 mg Oral tab 1 tab 4 times daily [Active]; furosemide 40 mg oral tab 1 tab 2 times per day [Active]; trazodone 150 mg oral tab 1 tab nightly [Active]; pantoprazole 40 mg Oral TbEC 1 tab once daily [Active]; potassium chloride 20 mEq oral TbTQ 1 tab 2 times per day [Active]; dilaudid 2mg 4 times daily [Active]; folic acid 1 mg Oral tab 1 tab twice a day [Active]; spironolactone 25 mg Oral tab 1 tab once daily [Active]; Albuterol Inhl [Active]; Eliquis oral oral [Active]; - PMHx: 23:42 CHF; Chronic pain; Depression; DVT Left leg; GERD; High Cholesterol; Hyperlipidemia; ak1 Hypertension; restless leg syndrome; - Immunization history: Last tetanus immunization: unknown. - Social history:: Smoking status: unknown. - Ebola Screening: : No symptoms or risks identified at this time. Screenin:27 Abuse screen: Denies threats or abuse. Denies injuries from another. Tuberculosis ak1 screening: No symptoms or risk factors identified. 23:37 Nutritional screening: No deficits noted. Fall Risk None identified. ak1 Primary Survey: 23:32 NO uncontrolled hemorrhage observed. Breathing/Chest: Respiratory pattern: regular, ak1 Respiratory effort: unlabored, Breath sounds: clear, bilaterally. Circulation: Skin color: pink, Skin temperature: warm, dry. Disability Alert. Exposure/Environment: All clothing and personal items were removed. Forensic evidence collection is not deemed to be indicated at this time. Items placed in patient belonging bag. 23:43 Reassessment Breathing/Chest Respiratory pattern Regular Respiratory effort Unlabored ak1 Circulation Color [place] Temperature Warm Disability Alert. Assessment: 23:32 General: Appears in no apparent distress. comfortable, Behavior is calm, cooperative. ak1 Pain: Complains of pain in scalp. Neuro: Level of Consciousness is awake, alert, obeys commands, Oriented to person, place, time, situation, Director Medical Writing are equal bilaterally Moves all extremities. Gait is steady, Speech is normal, Facial symmetry appears normal. EENT: No signs and/or symptoms were reported regarding the EENT system. Cardiovascular: No deficits noted. Respiratory: Airway is patent Respiratory effort is even, unlabored, Respiratory pattern is regular. GI: No signs and/or symptoms were reported involving the gastrointestinal system. : No signs and/or symptoms were reported regarding the genitourinary system. Derm: Wound noted scalp. Musculoskeletal: No signs and/or symptoms reported regarding the musculoskeletal system. 23:49 Reassessment: pt earrings removed and placed in a urine cup in pt's hands. ak1 03/09 00:46 Reassessment: pt and family informed of wait for CT results. ak1 Vital Signs: 03/08 23:27 BP 128 / 44; Pulse 70; Resp 16; Temp 98.0; Pulse Ox 97% on R/A; Weight 147.42 kg (R); ak1 Height 5 ft. 3 in. (160.02 cm) (R); Pain 3/10; 03/09 00:52 BP 96 / 43; Pulse 75; Resp 12; Pulse Ox 99% on R/A; ak1 01:38 BP 114 / 52; Pulse 72; Resp 18; Temp 97.9; Pulse Ox 97% on R/A; Pain 0/10; ak1 03/08 23:27 Body Mass Index 57.57 (147.42 kg, 160.02 cm) ak1 Kalina Coma Score: 03/08 23:27 Eye Response: spontaneous(4). Verbal Response: oriented(5). Motor Response: obeys ak1 commands(6). Total: 15. Trauma Score (Adult): 23:27 Eye Response: spontaneous(1); Verbal Response: oriented(1); Motor Response: obeys ak1 commands(2); Systolic BP: > 89 mm Hg(4); Respiratory Rate: 10 to 29 per min(4); Kalina Score: 15; Trauma Score: 12 ED Course: 23:27 Patient arrived in ED. ak1 23:27 Sergio Glasgow MD is Attending Physician. gs 23:27 Patient has correct armband on for positive identification. Bed in low position. Call ak1 light in reach. Side rails up X 1. 23:27 Patient maintains SpO2 saturation greater than 95% on room air. ak1 23:35 Triage completed. ak1 23:37 Pulse ox on. NIBP on. ak1 23:42 Thermoregulation: warm blanket given to patient. ak1 23:43 Arm band placed on Patient placed in an exam room, on a stretcher, on pulse oximetry, ak1 Patient notified of wait time. 23:48 Milena Mehta, RN is Primary Nurse. ak1 03/09 00:41 CT Head C Spine In Process Unspecified. EDMS 01:38 No provider procedures requiring assistance completed. Patient did not have IV access ak1 during this emergency room visit. 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 Exp: ak1 10/11/2020. Lot #: [id number]. } Route: IM; Site: left deltoid; 03/09 01:39 Follow up: Response: No adverse reaction ak1 03/08 23:57 Drug: Lidocaine (1 %) 5 mg {Note: given to DR. Glasgow for administration. .} Volume: 5 ak1 ml; Route: Infiltration; Intake: 23:27 PO: 0ml; Total: 0ml. ak1 Outcome: 03/09 01:23 Discharge ordered by . gs 01:38 Discharged to home via wheelchair, with family. ak1 01:38 Condition: good 01:38 Discharge instructions given to patient, family, Instructed on discharge instructions, follow up and referral plans. Demonstrated understanding of instructions, follow-up care. 01:42 Patient left the ED. ak1 Signatures: Dispatcher [employer] EDMS Milena Mehta RN RN ak1 Sergio Glasgow MD MD
--- NOTE | 2019-03-09 01:24 | EDPHYS ---
Physician Documentation [facility] Name: Little Stafford Age: 73 yrs Sex: Female : 1945 Arrival Date: 03/08/2019 Time: 23:27 Bed 3 Private MD: ED Physician Sergio Glasgow HPI: 03/09 01:18 This 73 yrs old Female presents to ER via EMS with complaints of Fall Injury. gs 01:18 Details of fall: The patient fell from an upright position. Onset: The symptoms/episode gs began/occurred acutely, just prior to arrival. Associated injuries: The patient sustained injury to the head, contusion, laceration. Severity of symptoms: At their worst the symptoms were moderate, in the emergency department the symptoms are unchanged. The patient has experienced similar episodes in the past, a few times. on eliquis. Historical: - Allergies: 03/08 23:42 Codeine; ak1 - Home Meds: 23:42 atorvastatin 20 mg oral tab 1 tab once daily [Active]; carvedilol 3.125 mg oral tab 1 ak1 tab 2 times per day for Hypertension [Active]; losartan-hydrochlorothiazide 50-12.5 mg Oral tab 1 tab once daily [Active]; Requip 1 mg Oral tab 1 tab 6 times a day [Active]; gabapentin 600 mg Oral tab 1 tab 4 times daily [Active]; furosemide 40 mg oral tab 1 tab 2 times per day [Active]; trazodone 150 mg oral tab 1 tab nightly [Active]; pantoprazole 40 mg Oral TbEC 1 tab once daily [Active]; potassium chloride 20 mEq oral TbTQ 1 tab 2 times per day [Active]; dilaudid 2mg 4 times daily [Active]; folic acid 1 mg Oral tab 1 tab twice a day [Active]; spironolactone 25 mg Oral tab 1 tab once daily [Active]; Albuterol Inhl [Active]; Eliquis oral oral [Active]; - PMHx: 23:42 CHF; Chronic pain; Depression; DVT Left leg; GERD; High Cholesterol; Hyperlipidemia; ak1 Hypertension; restless leg syndrome; - Immunization history: Last tetanus immunization: unknown. - Social history:: Smoking status: unknown. - Ebola Screening: : No symptoms or risks identified at this time. ROS: 03/09 01:18 All other systems are negative. gs Exam: 01:18 Eyes: Pupils equal round and reactive to light, extra-ocular motions intact. Lids and gs lashes normal. Conjunctiva and sclera are non-icteric and not injected. Cornea within normal limits. Periorbital areas with no swelling, redness, or edema. ENT: Nares patent. No nasal discharge, no septal abnormalities noted. Tympanic membranes are normal and external auditory canals are clear. Oropharynx with no redness, swelling, or masses, exudates, or evidence of obstruction, uvula midline. Mucous membranes moist. Neck: Trachea midline, no thyromegaly or masses palpated, and no cervical lymphadenopathy. Supple, full range of motion without nuchal rigidity, or vertebral point tenderness. No Meningismus. Chest/axilla: Normal chest wall appearance and motion. Nontender with no deformity. No lesions are appreciated. Cardiovascular: Regular rate and rhythm with a normal S1 and S2. No gallops, murmurs, or rubs. Normal PMI, no JVD. No pulse deficits. Respiratory: Lungs have equal breath sounds bilaterally, clear to auscultation and percussion. No rales, rhonchi or wheezes noted. No increased work of breathing, no retractions or nasal flaring. Abdomen/GI: Soft, non-tender, with normal bowel sounds. No distension or tympany. No guarding or rebound. No evidence of tenderness throughout. Back: No spinal tenderness. No costovertebral tenderness. Full range of motion. Skin: Warm, dry with normal turgor. Normal color with no rashes, no lesions, and no evidence of cellulitis. MS/ Extremity: Pulses equal, no cyanosis. Neurovascular intact. Full, normal range of motion. Neuro: Awake and alert, GCS 15, oriented to person, place, time, and situation. Cranial nerves II-XII grossly intact. Motor strength 5/5 in all extremities. Sensory grossly intact. Cerebellar exam normal. Normal gait. 01:18 Constitutional: The patient appears alert, awake. 01:18 Head/face: Noted is contusion, that is superficial, of the right side of the back of head, a laceration(s), that is superficial, .5 cm(s). Vital Signs: 03/08 23:27 BP 128 / 44; Pulse 70; Resp 16; Temp 98.0; Pulse Ox 97% on R/A; Weight 147.42 kg (R); ak1 Height 5 ft. 3 in. (160.02 cm) (R); Pain 3/10; 03/09 00:52 BP 96 / 43; Pulse 75; Resp 12; Pulse Ox 99% on R/A; ak1 01:38 BP 114 / 52; Pulse 72; Resp 18; Temp 97.9; Pulse Ox 97% on R/A; Pain 0/10; ak1 03/08 23:27 Body Mass Index 57.57 (147.42 kg, 160.02 cm) ak1 Kalina Coma Score: 03/08 23:27 Eye Response: spontaneous(4). Verbal Response: oriented(5). Motor Response: obeys ak1 commands(6). Total: 15. Trauma Score (Adult): 23:27 Eye Response: spontaneous(1); Verbal Response: oriented(1); Motor Response: obeys ak1 commands(2); Systolic BP: > 89 mm Hg(4); Respiratory Rate: 10 to 29 per min(4); Kalina Score: 15; Trauma Score: 12 Laceration: 03/09 01:18 Wound Repair of .5cm ( 0.2in ) subcutaneous laceration to right side of the back of gs head. Distal neuro/vascular/tendon intact. Anesthesia: Local anesthetic administered with 1 mls of 1% lidocaine. Wound prep: Simple cleansing with betadine. Skin closed with 1 1-0 Icard using staple gun. Patient tolerated well. MDM: 03/08 23:39 Patient medically screened. gs 03/09 01:18 Differential diagnosis: closed head injury, contusion, laceration. Data reviewed: vital gs signs, nurses notes. Counseling: I had a detailed discussion with the patient and/or guardian regarding: the historical points, exam findings, and any diagnostic results supporting the discharge/admit diagnosis, radiology results, the need for outpatient follow up. Response to treatment: the patient's symptoms have markedly improved after treatment. 03/08 23:41 Order name: CT Head C Spine gs Administered Medications: 03/08 23:56 Drug: Tetanus-Diphtheria Toxoid Adult 0.5 ml {[employer] Supervisor: [employer]. Exp: ak1 10/11/2020. Lot #: [id number]. } Route: IM; Site: left deltoid; 03/09 01:39 Follow up: Response: No adverse reaction ak1 03/08 23:57 Drug: Lidocaine (1 %) 5 mg {Note: given to DR. Glasgow for administration. .} Volume: 5 ak1 ml; Route: Infiltration; Disposition: 03/09/19 01:23 Discharged to Home. Impression: Laceration without foreign body of other part of head. - Condition is Stable. - Discharge Instructions: Laceration Care, Adult, Oety-hi-Qlun. - Medication Reconciliation Form, Thank You Letter, Antibiotic Education, Prescription Opioid Use form. - Follow up: Private Physician; When: 7 - 10 days; Reason: Staple/Suture removal. Signatures: Dispatcher [employer] Milena Thomas RN RN ak1 Sergio Glasgow MD MD gs Corrections: (The following items were deleted from the chart) 03/09 01:42 01:23 03/09/2019 01:23 Discharged to Home. Impression: Laceration without foreign body ak1 of other part of head. Condition is Stable. Forms are Medication Reconciliation Form, Thank You Letter, Antibiotic Education, Prescription Opioid Use. Follow up: Private Physician; When: 7 - 10 days; Reason: Staple/Suture removal. gs
[2019-03-09 02:45] VITALS: BP 114/52; TEMP 97.9; O2SAT 97
--- NOTE | 2019-03-12 11:55 | RAD REPORT ---
EXAM DESCRIPTION: CT - CTHCSPWOC - 03/09/2019 3:12 am CLINICAL HISTORY: The patient is 73 years old and is Female; PAIN TECHNIQUE: Axial computed tomography images of the head/brain and cervical spine without intravenous contrast. Sagittal and coronal reformatted images were created and reviewed. This CT exam was pe rformed using one or more of the following dose reduction techniques: automated exposure control, a djustment of the mA and/or kV according to patient size, and/or use of iterative reconstruction techn ique. COMPARISON: CT head and neck without contrast dated 12/22/2016. FINDINGS: BRAIN: Prominence of the cerebral sulci and cisterns. Rounded subcortical white matter hypodensity in the left frontal lobe unchanged from prior e xam. No mass effect.. Confluent periventricular white matter hypodensity. No intracranial hemorrhage, extra-axial collection, mass effect or midline shift. VENTRICLES: Prominence of the ventricular system. SKULL: No acute fracture. SINUSES: Unremarkable as visualized. No acute sinusitis. MASTOID AIR CELLS: Unremarkable as visualized. No mastoid effusion. ORBITS: Orbits are within normal limits. VERTEBRAE: See below. DISCS/SPINAL CANAL/NEURAL FORAMINA: Prior C3-5 ACDF and posterior instrumented fusion. Advanced cervical disc space narrowing with endplate irregularity, cephalopathy and uncovert ebral joint hypertrophy. Multilevel mid and lower cervical spondylosis with spinal canal narrowing. SOFT TISSUES: Soft tissue defect involving the right frontal scalp. VASCULATURE: Intracranial vascular calcifications. IMPRESSION: 1. No acute intracranial hemorrhage, hydrocephalus or herniation. 2. No acute cervical spine fracture. 3. C3-5 postsurgical changes with relatively unchanged advanced multilevel multifactorial degenerat willard changes. 4. Cerebral volume loss and chronic small vessel ischemic changes. If persistent clinical concern f or acute ischemia, consider MRI brain without contrast for further evaluation. Electronically signed by: Pascual Guo DO 03/09/2019 12:49 AM CDT Due to temporary technical issues with the PACS/Fluency reporting system, reports are being signed by the in house radiologist as a courtesy to ensure prompt reporting. The interpreting radiologist is f ully responsible for the content of the report.
== END 2019-03-09 01:42 | disposition home or self-care (01) ==
LOC: ER 23:23
PROC: 0JQ00ZZ Repair Scalp Subcutaneous Tissue and Fascia, Open Approach (ICD-10-PCS; principal; 2019-03-09)
DX: S01.81XA Laceration without foreign body of other part of head, initial encounter (principal); W18.39XA Other fall on same level, initial encounter; Y93.9 Activity, unspecified; I10 Essential (primary) hypertension; E78.5 Hyperlipidemia, unspecified; K21.9 Gastro-esophageal reflux disease without esophagitis; F32.9 Major depressive disorder, single episode, unspecified; I50.9 Heart failure, unspecified; Z23 Encounter for immunization; Z88.6 Allergy status to analgesic agent
CPT/HCPCS: 70450; 72125; 90471; 90714; 99284

== ENCOUNTER 2019-09-29 18:41 | Emergency (ER) | payer OTHER ==
--- OUTSIDE RECORDS SUMMARY | 2019-09-29 18:44 | XMS REPORT ---
:1945 [facility] Address [address] [place] [address] Care Team Providers Name Role Phone Unavailable Unavailable Unavailable Payers Payer Name Policy Type Policy Number Effective Date Expiration Date Problems This patient has no known problems. Allergies, Adverse Reactions, Alerts Allergy Allergy Status Severity Reaction(s) Onset Inactive Treating Comments Name Type Date Date Clinician codeine DA Active 2019-04 00:00:0 0 codeine DA Active SV 2018-03 00:00:0 0 codeine DA Active SV 2016-08 00:00:0 0 Medications This patient has no known medications. Results Test Description Test Time Test Comments Text Results Atomic Results Result Comments - XR CHEST 1 V 2019-05-16 16:35:00 Patient Name: RUTHY BEST Unit No: [id number] EXAMS: CPT CODE: [id number] XR CHEST 1 V 03139 IMAGES PROVIDED: One frontal view of the chest is provided. COMPARISON: None FINDINGS: The cardiac silhouette is mildly enlarged. Pulmonary vasculature is engorged. No focal consolidation is visualized. No pneumothorax or pleural effusion. Bilateral shoulder arthroplasties are partially visualized. IMPRESSION: Findings suggestive of CHF/volume overload. at 8017 Reported and signed by: Rick Serrano M.D. CC: Aida Meredith MD; Geovany Olivera MD Technologist: JESSICA CHAND RT(R) Transcribed D/ (6677) [facility]: RUTHY BEST [address] [facility] PHYS: ALESA.Aida Ramsey : 1945 AGE: 73 SEX: F [place], [place] [address] LOC: Y.306 A PHONE #: [phone] EXAM DATE: 05/15/2019 STATUS: DIS IN FAX #: [phone] RAD #: D/C DT 05/16/2019 PAGE 1 Signed Report Patient Name: RUTHY BEST Unit No: [id number] EXAMS: CPT CODE: [id number] XR CHEST 1 V 57066 <Continued> Orig Print D/T: S: 05/16/2019 (2822) [facility] [place] [facility] NAME: RUTHY BEST [address] [place] [address] PHYS: ALE. - Aida Meredith : 1945 AGE: 73 SEX: F [place], [place] [address] LOC: Y.306 A PHONE #: [phone] EXAM DATE: 05/15/2019 STATUS: DIS IN FAX #: [phone] RAD #: D/C DT 05/16/2019 PAGE 2 Signed Report - XR SHOULDER 1 V LT 2019-05-16 14:01:00 Patient Name: RUTHY BEST Unit No: [id number] EXAMS: CPT CODE: [id number] XR SHOULDER 1 [place] [address] IMAGES PROVIDED: Single AP view of the left shoulder FINDINGS: Postoperative changes of left reverse total shoulder arthoplasty demonstrated without evidence of immediate complication. No acute fracture. Visualized lung is clear. IMPRESSION: Left reverse total shoulder arthoplasty without immediate complication. at 1401 Reported and signed by: Rick Serrano M.D. CC: Geovany Olivera MD Technologist: MIGUELITO FELIZ (RT.R) Transcribed D/ (6503) [facility]: RUTHY BEST [address] [place] [address] PHYS: Geovany Bee : 1945 AGE: 73 SEX: F [place], [place] [address] LOC: Y.306 A PHONE #: [phone] EXAM DATE: 05/15/2019 STATUS: ADM IN FAX #: [phone] RAD #: D/C DT PAGE 1 Signed Report Patient Name: RUTHY BEST Unit No: [id number] EXAMS: CPT CODE: [id number] XR SHOULDER 1 [place] [address] <Continued> Orig Print D/T: S: 05/16/2019 (1404) [facility] [place] [facility] NAME: RUTHY BEST [address] [facility] PHYS: Geovany Bee : 1945 AGE: 73 SEX: F [place], [place] [address] LOC: Y.306 A PHONE #: [phone] EXAM DATE: 05/15/2019 STATUS: ADM IN FAX #: [phone] RAD #: D/C DT PAGE 2 Signed Report CBC W/AUTO DIFF 2019-05-16 05:53:00 Test Item Value Reference Range Comments WHITE BLOOD CELL (test code=WBC) 13.6 K/mm3 5.8-11.0 RED BLOOD CELL (test code=RBC) 3.80 M/mm3 4.2-5.4 HEMOGLOBIN (test code=HGB) 10.7 g/dL 12-16 HEMATOCRIT (test code=HCT) 33.8 % 37-47 MEAN CELL VOLUME (test code=MCV) 89 fL 80-98 MEAN CELL HGB (test code=MCH) 28.2 pg 27-34 MEAN CELL HGB CONCENTRATION (test code=MCHC) 31.7 g/dL 30.8-34.1 RED CELL DISTRIBUTION WIDTH (test code=RDW) 13.3 % 11-16 PLT (test code=PLT) 284 K/mm3 130-400 MEAN PLATELET VOLUME (test code=MPV) 9.0 fL 8.9-12.1 NEUTROPHIL % (test code=NT%) 74.9 % 45-70 LYMPHOCYTE % (test code=LY%) 15.4 % 20-40 MONOCYTE % (test code=MO%) 8.6 % 3-10 EOSINOPHIL % (test code=EO%) 0.4 % 1-5 BASOPHIL % (test code=BA%) 0.3 % 0.0-1.1 NEUTROPHIL # (test code=NT#) 10.15 K/mm3 2.00-7.50 LYMPHOCYTE # (test code=LY#) 2.08 K/mm3 1.50-4.00 MONOCYTE # (test code=MO#) 1.17 K/mm3 0.2-0.8 EOSINOPHIL # (test code=EO#) 0.05 K/mm3 0.04-0.4 BASOPHIL # (test code=BA#) 0.04 K/mm3 0.02-0.10 MANUAL DIFF REQUIRED (test code=MDIFF) NO MANUAL DIFF NUCLEATED RED BLOOD CELL (test code=NRBC) 0 % 0-0 SPECIMEN COMMENT: POD #1- CT UP EXTREM W/O CONT [id number] 08:39:00 Patient Name: RUTHY BEST Unit No: [id number] EXAMS: CPT CODE: [id number] [place] EXTREM W/[place] [address] [place] OF THE LEFT SHOULDER WITH SAGITTAL AND CORONAL RECONSTRUCTIONS DIAGNOSIS: Glenohumeral joint degenerative change is present with cartilage thinning and erosion and cyst formation involving the anterior aspect of the humeral head. Mild to moderate fatty atrophy subscapularis muscle is seen with mild fatty infiltration of the supraspinatus and infraspinatus muscles. COMMENT: COMPARISON: No prior exams available. Scans were performed with thin sections and reconstructions were obtained. CT radiation dose optimization is achieved for this examination by the use of a CT protocol in accordance with ACR practice standards and adherence to tennis camp instructor's recommendations. Degenerative changes are present as noted. The rotator cuff is as described. No loose bodies are seen. AC joint degenerative change is present. Electronically Signed by Ran Cedeño MD on 05/2019 at 0839 Reported and signed by: Ran Cedeño MD CC: Geovany Olivera MD Technologist: RT Judd(R) CTDI: DLP : Trnscrpt: 04/12/2019 (0839) Reynaldo [facility] [place] [facility] NAME: RUTHY BEST [address] [facility] PHYS: Geovany Bee : 1945 AGE: 73 SEX: F [place], [place] [address] LOC: RonaldRAD PHONE #: [phone] EXAM DATE: 04/11/2019 STATUS: DEP CLI FAX #: [phone] RAD #: D/C DT PAGE 1 Signed Report Patient Name: RUTHY BEST Unit No: [id number] EXAMS: CPT CODE: [id number] CT UP EXTREM W/[place] [address] < Continued> Orig Print D/T: S: 04/12/2019 (0842) [facility] [place] [facility] NAME: RUTHY BEST [address] [facility] PHYS: Geovany Bee : 1945 AGE: 73 SEX: F [place] [address] LOC: RnoaldRAD PHONE #: [phone] EXAM DATE: 04/11/2019 STATUS: DEP CLI FAX #: [phone] RAD #: D/C DT PAGE 2 Signed ReportCBC W/AUTO [id number] 18:23:00 Test Item Value Reference Range Comments WHITE BLOOD CELL (test code=WBC) 8.0 K/mm3 5.8-11.0 RED BLOOD CELL (test code=RBC) 4.37 M/mm3 4.2-5.4 HEMOGLOBIN (test code=HGB) 12.4 g/dL 12-16 HEMATOCRIT (test code=HCT) 37.7 % 37-47 MEAN CELL VOLUME (test code=MCV) 86 fL 80-98 MEAN CELL HGB (test code=MCH) 28.4 pg 27-34 MEAN CELL HGB CONCENTRATION (test code=MCHC) 32.9 g/dL 30.8-34.1 RED CELL DISTRIBUTION WIDTH (test code=RDW) 14.2 % 11-16 PLT (test code=PLT) 328 K/mm3 130-400 MEAN PLATELET VOLUME (test code=MPV) 9.0 fL 8.9-12.1 NEUTROPHIL % (test code=NT%) 60.4 % 45-70 LYMPHOCYTE % (test code=LY%) 25.7 % 20-40 MONOCYTE % (test code=MO%) 9.4 % 3-10 EOSINOPHIL % (test code=EO%) 3.4 % 1-5 BASOPHIL % (test code=BA%) 0.8 % 0.0-1.1 NEUTROPHIL # (test code=NT#) 4.83 K/mm3 2.00-7.50 LYMPHOCYTE # (test code=LY#) 2.05 K/mm3 1.50-4.00 MONOCYTE # (test code=MO#) 0.75 K/mm3 0.2-0.8 EOSINOPHIL # (test code=EO#) 0.27 K/mm3 0.04-0.4 BASOPHIL # (test code=BA#) 0.06 K/mm3 0.02-0.10 MANUAL DIFF REQUIRED (test code=MDIFF) NO MANUAL DIFF NUCLEATED RED BLOOD CELL (test code=NRBC) 0 % 0-0 SED [id number] 18:23:00 Test Item Value Reference Range Comments SED RATE (test code=SEDW) 25 mm/hr 0-20 COMPREHENSIVE METABOLIC [id number] 18:17:00 Test Item Value Reference Range Comments SODIUM (test code=NA) 140 mmol/L 136-145 POTASSIUM (test code=K) 4.4 mmol/L 3.5-5.1 CHLORIDE (test code=CL) 102.0 mmol/L 98-107 CARBON DIOXIDE (test code=CO2) 31.4 mmol/L 21-32 GLUCOSE (test code=GLU) 97 mg/dL 70-110 BLOOD UREA NITROGEN (test 27 mg/dL 7-18 code=BUN) GLOMERULAR FILTRATION RATE 71.1 >60 Unit of measure: (test code=GFR) mL/min/1.73 [id number] Range:Healthy Adults >90 mL/min/1.73 m2 For Chronic Kidney Disease: Stage II Mild Decrease in GFR 60-90 Stage III Moderate Decrease in GFR 30-59 Stage IV Severe Decrease in GFR 15-29 Stage V Kidney Failure <15 CREATININE (test code=CREAT) 0.79 mg/dL 0.55-1.30 TOTAL PROTEIN (test code=PROT) 6.7 g/dL 6.4-8.2 ALBUMIN (test code=ALB) 3.5 g/dL 3.4-5.0 GLOBULIN (test code=GLOB) 3.2 g/dL 2.2-4.2 ALBUMIN/GLOBULIN RATIO (test 1.1 0.7-2.0 code=A/G) CALCIUM (test code=CA) 9.8 mg/dL 8.2-10.1 BILIRUBIN TOTAL (test 0.50 mg/dL 0.2-1.00 code=BILT) SGOT/AST (test code=AST) 23.0 U/L 15-37 SGPT/ALT (test code=ALT) 29.0 U/L 12-78 Please note new normal range. ALKALINE PHOSPHATASE TOTAL 108 U/L 46-116 (test code=ALKP) PROTHROMBIN [id number] 17:59:00 Test Item Value Reference Range Comments PROTHROMBIN TIME PATIENT 14.2 secs 10.1-12.5 (test code=PTP) INTERNATIONAL NORMAL RATIO 1.26 <2.0 RECOMMENDED THERAPEUTIC RANGE (test code=INR) FOR ORAL ANTICOAGULANTTREATMENT: CONDITION INRProphylaxis of venous thrombosis in 2.0 - 3.0 high-risk medical or surgical patientsTreatment of venous thrombosis 2.0 - 3.0Prevention of embolism 2.0 - 3.0Prevention of recurrent embolism, or 3.0 - 4.5 patients with mechanical prosthetic intravascular valves IS PATIENT ON ANTICOAGULANTS ? YLIST ANTICOAGULANT/ANTI PLT MEDICATION : OtherHas Lab been notified if Patient is on Heparin Drip? NOTHROMBOPLASTIN TIME [id number] 17:59:00 Test Item Value Reference Range Comments PTT ACTIVATED (test code=APTT) 31.8 secs 24.9-37.0 IS PATIENT ON ANTICOAGULANTS ? YLIST ANTICOAGULANT/ANTI PLT MEDICATION : OtherHas Lab been notified if Patient is on Heparin Drip? NOCBC W/AUTO [id number] 17:22:00 Test Item Value Reference Range Comments WHITE BLOOD CELL (test code=WBC) 8.0 K/mm3 5.8-11.0 RED BLOOD CELL (test code=RBC) 4.37 M/mm3 4.2-5.4 HEMOGLOBIN (test code=HGB) 12.4 g/dL 12-16 HEMATOCRIT (test code=HCT) 37.7 % 37-47 MEAN CELL VOLUME (test code=MCV) 86 fL 80-98 MEAN CELL HGB (test code=MCH) 28.4 pg 27-34 MEAN CELL HGB CONCENTRATION (test code=MCHC) 32.9 g/dL 30.8-34.1 RED CELL DISTRIBUTION WIDTH (test code=RDW) 14.2 % 11-16 PLT (test code=PLT) 328 K/mm3 130-400 MEAN PLATELET VOLUME (test code=MPV) 9.0 fL 8.9-12.1 NEUTROPHIL % (test code=NT%) 60.4 % 45-70 LYMPHOCYTE % (test code=LY%) 25.7 % 20-40 MONOCYTE % (test code=MO%) 9.4 % 3-10 EOSINOPHIL % (test code=EO%) 3.4 % 1-5 BASOPHIL % (test code=BA%) 0.8 % 0.0-1.1 NEUTROPHIL # (test code=NT#) 4.83 K/mm3 2.00-7.50 LYMPHOCYTE # (test code=LY#) 2.05 K/mm3 1.50-4.00 MONOCYTE # (test code=MO#) 0.75 K/mm3 0.2-0.8 EOSINOPHIL # (test code=EO#) 0.27 K/mm3 0.04-0.4 BASOPHIL # (test code=BA#) 0.06 K/mm3 0.02-0.10 MANUAL DIFF REQUIRED (test code=MDIFF) NO MANUAL DIFF NUCLEATED RED BLOOD CELL (test code=NRBC) 0 % 0-0 SED [id number] 17:22:00 Test Item Value Reference Range Comments SED RATE (test code=SEDW) mm/hr 0-20
--- OUTSIDE RECORDS SUMMARY | 2019-09-29 18:45 | XMS REPORT ---
:1945 Author Organization [employer] Care Team Providers Name Role Phone Tyree Pacheco Provider Role Unavailable Allergies No Known Allergies Problems Problem Type Condition Code Onset Dates Condition Status Problem Iron deficiency anemia, unspecified D50.9 Active iron deficiency anemia type Problem 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 Active Problem Bariatric surgery status Z98.84 Active Problem 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.21 Active Assessment Hyperlipidemia, mixed E78.2 Active Assessment Accelerated essential hypertension I10 Active Problem Presence of right artificial knee Z96.651 Active joint Assessment Iron deficiency anemia, unspecified D50.9 Active iron deficiency anemia type Problem Presence of right artificial Z96.611 Active shoulder joint Assessment CHF (congestive heart failure) I50.9 Active Problem Presence of urogenital implants Z96.0 Active Problem History of falling Z91.81 Active Problem Acquired absence of both cervix and Z90.710 Active uterus Problem Acquired absence of other specified Z90.49 Active parts of digestive tract Problem Chronic kidney disease, unspecified N18.9 Active Problem Gastro-esophageal reflux disease K21.9 Active without esophagitis Problem Personal history of nicotine Z87.891 Active dependence Problem extermination inspector current use of Z79.01 Active anticoagulant Problem 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00 Active Problem Other specified postprocedural Z98.890 Active states Problem Venous insufficiency I87.2 Active Problem Spinal stenosis of cervical region M48.02 Active Problem CHF (congestive heart failure) I50.9 Active Problem assisted current use of opiate Z79.891 Active analgesic Problem extermination inspector current use of inhaled Z79.51 Active steroid Problem Hyperlipidemia, mixed E78.2 Active Problem Difficulty in walking, not R26.2 Active elsewhere classified Problem Chronic obstructive pulmonary J44.9 Active disease Problem Mixed incontinence N39.46 Active Problem Obstructive sleep apnea G47.33 Active Problem Family history of malignant Z80.9 Active neoplasm, unspecified Problem 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 Problem Body mass index (BMI) 40.0-44.9, Z68.41 Active adult Problem Restless leg syndrome G25.81 Active Problem Other specified polyneuropathies G62.89 Active Problem Benign essential hypertension I10 Active Problem Morbid (severe) obesity due to E66.01 Active excess calories Problem Other muscle spasm M62.838 Active Problem 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 Medications No Known Medications Results No Known Results Summary Purpose [employer] Submission
--- OUTSIDE RECORDS SUMMARY | 2019-09-29 18:45 | XMS REPORT ---
[...] Other specified postprocedural Z98.890 Active states Problem nursing home current use of inhaled Z79.51 Active steroid Problem termite technician current use of opiate Z79.891 Active analgesic Problem Major depressive disorder F32.9 Active Problem Hypokalemia E87.6 Active Problem termite technician current use of Z79.01 Active anticoagulant Problem Gastro-esophageal reflux disease K21.9 Active without esophagitis Problem Presence of right artificial Z96.611 Active shoulder joint Problem Presence of urogenital implants Z96.0 Active Problem Bariatric surgery status Z98.84 Active Problem Presence of right artificial knee Z96.651 Active joint Problem Acquired absence of other specified Z90.49 Active parts of digestive tract Problem Personal history of nicotine Z87.891 Active dependence Problem History of falling Z91.81 Active Problem Acquired absence of both cervix and Z90.710 Active uterus Assessment CHF (congestive heart failure) I50.9 Active Assessment Cervicalgia M54.2 Active Assessment History of fall Z91.81 Active Assessment Chronic obstructive pulmonary J44.9 Active disease Assessment Venous insufficiency I87.2 Active Assessment Obstructive sleep apnea G47.33 Active Assessment Plantar fasciitis, left M72.2 Active Assessment Insomnia G47.00 Active Assessment Hyperlipidemia, mixed E78.2 Active Problem Personal history of other venous Z86.718 Active thrombosis and embolism Assessment Restless leg syndrome G25.81 Active Problem Family history of ischemic heart Z82.49 Active disease and other diseases of the circulatory system Problem Family history of other mental and Z81.8 Active behavioral disorders Problem Body mass index (BMI) 40.0-44.9, Z68.41 Active adult Problem Family history of malignant Z80.9 Active neoplasm, unspecified Problem Morbid (severe) obesity due to E66.01 Active excess calories Problem Other specified polyneuropathies G62.89 Active Problem Chronic kidney disease, unspecified N18.9 Active Problem Venous insufficiency I87.2 Active Problem Mixed incontinence N39.46 Active Problem CHF (congestive heart failure) I50.9 Active Problem Difficulty in walking, not R26.2 Active elsewhere classified Problem 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 Assessment Benign essential hypertension I10 Active Problem Other muscle spasm M62.838 Active Assessment Iron deficiency anemia, unspecified D50.9 Active iron deficiency anemia type Problem Hyperlipidemia, mixed E78.2 Active Problem Chronic obstructive pulmonary J44.9 Active disease Problem Restless leg syndrome G25.81 Active Problem 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 Problem Insomnia G47.00 Active Problem Cervicalgia M54.2 Active Medications Medication Code Code Instructions Start End Status Dosage System Date Date Breo Ellipta [facility] 79090669077 200-25 MCG/INH Active 1 puff Inhalation Once a day Eliquis 2.5 mg [facility] 50531182437 2.5 mg by mouth Active one twice daily Lipitor [facility] 28041122082 10 MG Orally Active 1 tablet Once a day Singulair [facility] 03268190738 10 MG Orally Active 2 tablets Once a day Pantoprazole [facility] 42873332778 40 MG Orally Active 1 tablet Sodium Once a day Coreg [facility] 41387549052 3.125 MG Orally Active 1 tab twice daily Requip [facility] 74085157803 1 MG Orally 5 Active 1 tablet times a day Spironolactone [facility] 53227089222 25 MG Orally Active 1 tablet Once a day Pantoprazole [facility] 47042539925 40 MG Orally Active 1 tablet Sodium Once a day Ferrous Sulfate [facility] 79873417258 324 MG Orally Active 1 tablet Once a day Hyzaar [facility] 05534657883 50-12.5 MG Active 1 tablet Orally Once a day Ventolin HFA [facility] 49405322700 108 (90 Base) May 29, Active 2 puffs MCG/ACT 2019 as needed Inhalation every 6 hrs Furosemide [facility] 23491989857 40 MG Orally Active 1 tablet Once a day Duloxetine HCl [facility] 62823708306 60 MG Orally Active 1 capsule Twice a day Furosemide [facility] 77215532512 20 MG Orally Active 1 tablet Once a day Albuterol Sulfate [facility] 32983047883 108 (90 Base) Active 2 puffs HFA MCG/ACT as needed Inhalation every 6 hrs PRN Shortness of breath, Cough or Wheezing Trazodone HCl [facility] 76885398767 150 MG Orally Active 1 tablet Once a day at bedtime Hyzaar [facility] 84221244722 50-12.5 MG Active 1 tablet Orally Once a day Requip [facility] 35019979938 1 MG Orally 5 Active 1 tablet times a day Aspirin [facility] [address]-16 Active not defined CoQ-10 [facility] [address] Active not defined Duloxetine HCl [facility] 29494002816 60 MG Orally Active 1 capsule Twice a day [place] 3 [facility] [address] Active not defined Neurontin [facility] 77415204703 600 MG Orally Active 1 tablet Three times a day Zyrtec Allergy [facility] 87434454984 10 MG Orally Active 1 tablet Once a day Potassium [facility] 73764525872 20 MEQ Orally Active 1 tablet Chloride ER Once a day with food Methocarbamol [facility] 60571022065 750 MG Orally Active 1 tablet every 8 hrs PRN Hydromorphone HCl [facility] 60832186317 4 MG Orally Active 1 tablet every 8 hrs PRN as needed Folic Acid [facility] 32804014489 1 MG Orally Active 1 tablet Twice a day Results No Known Results Summary Purpose eClinicalWorks Submission
--- OUTSIDE RECORDS SUMMARY | 2019-09-29 18:45 | XMS REPORT | Summary of Care ---
:1945 Author Organization [facility] Address [address] [place] [address] Care Team Providers Name Role Phone Tyree Pacheco Primary Care Provider Reason for Visit Reason Comments Follow-up 1 week Encounter Details Date Type Department Care Team Description 08/12/2019 Office Visit [facility] Layla Schaeffer MD Chronic heart failure with preserved ejection fraction (Primary Dx); Cardiology- [address] Obstructive sleep apnea syndrome; [address] [place] [address] Morbid obesity [facility], [address] [place] [id number] [phone] Allergies Active Allergy Reactions Severity Noted Date Comments Codeine Nausea and/or Vomiting High 12/12/2016 documented as of this encounter (statuses as of 08/12/2019) Medications Medication Sig Dispensed Refills Start Date End Date Status methocarbamol (ROBAXIN) Take 750 mg by 0 Active 750 mg tablet mouth 3 (three) times daily as needed. foLIC acid (FOLATE) 1 TAKE 1 TABLET BY 180 Tab 0 09/28/2015 Active mg tablet MOUTH TWICE A DAY rOPINIRole (REQUIP) 1 Take 1 tablet by 270 tablet 3 11/16/2015 Active mg tabletIndications: mouth 3 (three) Restless legs syndrome times daily. Additional information Patient taking differently: 1 mg Oral 5X DAY, Reported on 01/30/2018 12:01 PM gabapentin (NEURONTIN) Take 1 tablet 180 tablet 3 11/16/2015 Active 600 mg by mouth 2 tabletIndications: (two) times Chronic back pain daily. pantoprazole (PROTONIX) Take 1 tablet 90 tablet 3 11/16/2015 Active 40 mg EC by mouth tabletIndications: daily. Gastroesophageal reflux disease without esophagitis traZODONE 100 mg tablet Take 100 mg 0 Active by mouth at bedtime. HYDROmorphOne 4 mg Take 2 mg by 0 Active tabletIndications: mouth 4 Syncope, unspecified (four) times syncope type, Essential daily. hypertension, Obstructive sleep apnea syndrome naproxen 500 mg tablet Take 1 tablet 180 tablet 0 08/11/2017 Active by mouth 2 (two) times daily with meals. DULoxetine 60 mg capsule TAKE ONE 3 01/05/2018 Active CAPSULE BY MOUTH EVERY DAY BREO ELLIPTA 200-25 0 01/25/2018 Active mcg/dose DsDv carvedilol 3.125 mg Take 1 tablet 180 tablet 1 01/22/2019 Active tablet by mouth 2 (two) times daily with meals. apixaban 2.5 mg tablet Take 1 tablet 180 tablet 1 02/27/2019 Active by mouth 2 (two) times daily. spironolactone 25 mg Take 1 tablet 30 tablet 5 04/19/2019 Active tabletIndications: by mouth (HFpEF) heart failure daily. You with preserved ejection will need new fraction lab work done in September 2019 atorvastatin 40 mg Take 1 tablet 60 tablet 5 07/11/2019 Active tablet by mouth daily. KCL 20 mEq Take 1 tablet 60 tablet 2 07/17/2019 Active tabletIndications: by mouth 2 (HFpEF) heart failure (two) times with preserved ejection daily. fraction bumetanide 1 mg Take 2 60 tablet 1 08/12/2019 Active tabletIndications: tablets by Chronic heart failure mouth every with preserved ejection morning and fraction evening. metOLazone 2.5 mg 1 tablet 30 10 tablet 0 08/12/2019 Active tabletIndications: minutes Chronic heart failure before with preserved ejection morning bumex fraction on Monday/ day/Monday bumetanide 1 mg Take 2 30 tablet 1 08/05/2019 tabletIndications: tablets by 2020 (Reorder) Chronic heart failure mouth every with preserved ejection morning and fraction evening. documented as of this encounter (statuses as of 08/12/2019) Active Problems Problem Noted Date (HFpEF) heart failure with preserved ejection fraction 05/29/2017 Bilateral carotid artery disease 02/06/2017 Essential hypertension 06/19/2015 COPD (chronic obstructive pulmonary disease) 06/19/2015 Hyperlipidemia 06/19/2015 Sleep apnea 06/19/2015 Osteoarthritis of both knees 06/19/2015 documented as of this encounter (statuses as of 08/12/2019) Immunizations Name Administration Dates Next Due Influenza High Dose 05/10/2018 documented as of this encounter Social History Tobacco Use Types Packs/Day Years [...] of this encounter Last Filed Vital Signs Vital Sign Reading Time Taken Comments Blood Pressure 130/72 08/12/2019 2:34 PM SPECIFICATION CONSULTANT Pulse 88 08/12/2019 2:31 PM SPECIFICATION CONSULTANT Temperature - - Respiratory Rate 18 08/12/2019 2:31 PM SPECIFICATION CONSULTANT Oxygen Saturation 94% 08/12/2019 2:31 PM SPECIFICATION CONSULTANT Inhaled Oxygen Concentration - - Weight 117.3 kg (258 lb 9.6 oz) 08/12/2019 2:31 PM SPECIFICATION CONSULTANT Height 157.5 cm (5' 2") 08/12/2019 2:31 PM SPECIFICATION CONSULTANT Body Mass Index 47.3 08/12/2019 2:31 PM SPECIFICATION CONSULTANT documented in this encounter Patient Instructions Patient InstructionsCaLayla meadows MD - 08/12/2019 2:00 PM CSTMetolazone 1 tablet 30 minutes before morning bumex on Monday//Monday Call me let me know your response to the new pill after 3-4 days IFICATION CONSULTANT documented in this encounter Progress Notes Layla Schaeffer MD - 08/12/2019 2:00 PM CST CARDIOLOGY CLINIC NOTE 08/12/2019 Reason for Referral/Presenting Complaint: HFpEF PCP: Tyree Pacheco History of Present Illness: Little Stafford is a 74 years old female with history of obesity, HTN, HLD, NORMA on C-PAP, cervical spine stenosis, BL carotid artery stenosis (50-79%) and chronic diastolic heart failure. She had ECHO in 03/2016 as a preop evaluation showing normal LVEF with evidence of venous congestion. Lasix was increased. She underwent neck surgery in 03/2016. Postop she had pulmonary edema and she was treated with IVlasix. She underwent left leg vein procedure in 2018. Previous visit she c/o worsening left leg edema with pain. Duplex showed DVT. Started on Eliquis. Less edema and pain. After 3 months Eliquis, D-dimer wasstill elevated. US showed chronic appearance of the clot. Previous visit she was seen for 14 lbs weight gain with worsening SOB. More leg edema. We increased lasix and added spironolactone. For the past several weeks she has had worsening SOB with activity, leg edema. Gained 23 lbs. Cannotbreathe with C-PAP. 30 degree orthopnea. UOP is low. We changed lasix to Bumex but she is taking half recommended dose. No improvement. Gained 5 lbs since last visit. EKG--08/05/2019--reviewed by me--normal sinus rhythm, low voltage PMH: Past Medical History: Diagnosis Date (HFpEF) heart failure with preserved ejection fraction 05/29/2017 Arthritis Bilateral carotid artery disease 02/06/2017 Hyperlipidemia Hypertension Current Medications: Current Outpatient Medications Medication Sig Dispense Refill bumetanide 1 mg tablet Take 2 tablets by mouth every morning and evening. 60 tablet 1 metOLazone 2.5 mg tablet 1 tablet 30 minutes before morning bumex on Monday //Monday 10 tablet 0 KCL 20 mEq tablet Take 1 tablet by mouth 2 (two) times daily. 60 tablet 2 atorvastatin 40 mg tablet Take 1 tablet by mouth daily. 60 tablet 5 spironolactone 25 mg tablet Take 1 tablet by mouth daily. You will need new lab work done in September 2019 30 tablet 5 apixaban 2.5 mg tablet Take 1 tablet by mouth 2 (two) times daily. 180 tablet 1 carvedilol 3.125 mg tablet Take 1 tablet by mouth 2 (two) times daily with meals. 180 tablet 1 BREO ELLIPTA 200-25 mcg/dose DsDv DULoxetine 60 mg capsule TAKE ONE CAPSULE BY MOUTH EVERY DAY 3 HYDROmorphOne 4 mg tablet Take 2 mg by mouth 4 (four) times daily. traZODONE 100 mg tablet Take 100 mg by mouth at bedtime. gabapentin (NEURONTIN) 600 mg tablet Take 1 tablet by mouth 2 (two) times daily. 180 tablet 3 pantoprazole (PROTONIX) 40 mg EC tablet Take 1 tablet by mouth daily. 90 tablet 3 rOPINIRole (REQUIP) 1 mg tablet Take 1 tablet by mouth 3 (three) times daily. (Patient taking differently: Take 1 mg by mouth 5 (five) times daily.) 270 tablet 3 foLIC acid (FOLATE) 1 mg tablet TAKE 1 TABLET BY MOUTH TWICE A DAY 180 Tab 0 naproxen 500 mg tablet Take 1 tablet by mouth 2 (two) times daily with meals. 180 tablet 0 methocarbamol (ROBAXIN) 750 mg tablet Take 750 mg by mouth 3 (three) times daily as needed. No current facility-administered medications for this visit. Allergies: Allergies Allergen Reactions Codeine Nausea and/or Vomiting Social History: Social History Socioeconomic History Marital status: Spouse name: Not on file Number of children: Not on file Years of education: Not on file Highest education level: Not on file Occupational History Not on file Social Needs Financial resource strain: Not on file Food insecurity: Worry: Not on file Inability: Not on file Transportation needs: Medical: Not on file Non-medical: Not on file Tobacco Use Smoking status: Former Smoker Types: Cigarettes Smokeless tobacco: Never Used Substance and Sexual Activity Alcohol use: No Drug use: No Sexual activity: Not on file Lifestyle Physical activity: Days per week: Not on file Minutes per session: Not on file Stress: Not on file Relationships Social connections: Talks on phone: Not on file Gets together: Not on file Attends hindu service: Not on file Active member of club or organization: Not on file Attends meetings of clubs or organizations: Not on file Relationship status: Not on file Intimate partner violence: Fear of current or ex partner: Not on file Emotionally abused: Not on file Physically abused: Not on file Forced sexual activity: Not on file Other Topics Concern Not on file Social History Narrative Not on file Family History Family History Problem Relation Age of Onset Heart Mother CHF Thyroid Mother Cancer Father [email or web address] Hypertension Father Arthritis Father High cholesterol Father Depression Maternal Grandfather [place] (myocardial infarction) Brother [email or web address] Review of Systems: (-)=Negative,(+)=Positive General: (-) fever, (-) chills, (+) weight change, (-) dizziness, (+) fatigue Skin: (-) rash HEENT: (-) headache, (-) change in vision Neck: (-) difficulty swallowing Heme: negative Resp: (-) cough, (+) dyspnea on exertion Cardio: (-) chest pain, (-) palpitations, (-) syncope GI: (-) vomiting, (-) diarrhea : negative Endo: (-) diabetes, (-) thyroid disease Neuro: (-) numbness, (-) tingling, (-) weakness Back: (+) pain LURDES: (-) muscle pain, (-) claudication Psych: (-) anxiety, (-) depression Physical Examination: BP 130/72 | Pulse 88 | Resp 18 | Ht 5' 2" (1.575 m) | Wt 258 lb 9.6 oz ( 117.3 kg) | SpO2 94% |BMI 47.30 kg/m Constitutional: alert and oriented x 3 (person, place and date/time); no apparent distress, obese ENT: normocephalic atraumatic, supple, no lymphadenopathy, no bruits, no JVD Lungs: clear to auscultation bilaterally Cardiovascular: S1, S2 normal, regular; no murmurs, rubs or gallops GI: soft; non-tender; + distended; normoactive bowel sounds : not examined Musculoskeletal: Extremities: no clubbing, cyanosis, + BL leg edema L > R Skin: no rashes Neuro: no focal deficits Labs: CBC BMP PT/INR WHITE BLOOD CELL COUNT-Q (Thousand/uL) Date Value 12/14/2015 6.6 NA (mmol/L) Date Value 08/05/2019 140 SODIUM-Q (mmol/L) Date Value 05/08/2018 141 No results found for: PT PLATELET COUNT-Q (Thousand/uL) Date Value 12/14/2015 350 K (mmol/L) Date Value 08/05/2019 5.3 (H) POTASSIUM-Q (mmol/L) Date Value 05/08/2018 4.4 No results found for: PTINR HEMOGLOBIN-Q (g/dL) Date Value 12/14/2015 12.3 BUN (mg/dL) Date Value 08/05/2019 23 UREA NITROGEN (BUN)-Q (mg/dL) Date Value 05/08/2018 14 HEMATOCRIT-Q (%) Date Value 12/14/2015 37.8 CREATININE (mg/dL) Date Value 08/05/2019 0.80 CREATININE-Q (mg/dL) Date Value 05/08/2018 0.62 LIPID PROFILE GLUCOSE (mg/dL) Date Value 08/05/2019 117 (H) GLUCOSE-Q (mg/dL) Date Value 05/08/2018 101 (H) CHOLESTEROL, TOTAL-Q (mg/dL) Date Value 05/08/2018 158 TSH [id number] (mg/dL (calc)) Date Value 05/08/2018 87 TSH, 3RD GENERATION$W/REFLEX TO FT4-Q (mIU/L) Date Value 12/14/2015 1.40 CARDIAC ENZYMES HDL CHOLESTEROL-Q (mg/dL) Date Value 05/08/2018 47 (L) No results found for: CK TRIGLYCERIDES-Q (mg/dL) Date Value 05/08/2018 141 LFTs No results found for: CKMB AST-Q (U/L) Date Value 12/14/2015 27 No results found for: TROPNI ALT-Q (U/L) Date Value 12/14/2015 25 No results found for: BNP EKG: Sinus bradycardia, HR 59 bpm, low voltage, non-specific T wave abnormalities. 03/28/2018--normal sinus rhythm, low voltage Echocardiogram: 03/30/2016: Mild LV dilation, LVEF 60-65%, moderate left atrium enlargement. RVSP 40-45 mmHg with dilated IVC. 10/2018 The left ventricle is mildly dilated. Ejection Fraction=55-60%. Diastolic function is impaired relaxation. The left ventricular wall motion is normal. Estimated RA pressure is 0-5 mmHg. Insufficient Tricuspid regurgitation jet to estimate RVSP. Cardiac Cath: 15 years ago [facility] no CAD DSE 2016--No ischemia Carotid duplex-- Bilateral 50-79% Assessment/Plan: ICD-10-CM ICD-9-CM 1. Chronic heart failure with preserved ejection fraction I50.32 428.9 2. Obstructive sleep apnea syndrome G47.33 327.23 3. Morbid obesity E66.01 278.01 HFpEF--She has gained significant amount of weight with volume overload. Advised to take Bumex 2 mg BID. Will add Metolazone 2.5 mg TIW 30 mins before AM bumex. Advised to update me in a few days with her response to metolazone for further adjustment. Continue spironolactone 25 mg daily. Discussed lowsalt diet, diet and weight loss. Last visit CXR showed congestion. Left leg DVT--Repeat venous duplex showed chronic DVT. D-dimer still elevated. Will continue Eliquisat 2.5 mg BID. HTN--Her BP has been usually controlled. Will watch for adjustment. Continue coreg at 3.125 mg BID. Carotid artery stenosis--Asymptomatic. Will continue ASA and lipitor. Carotid duplex showed L ICA 50-79%. NORMA--Cannot use C-PAP. RTC 1 week Layla Schaeffer MD, FACC, FACP, RADHA Grape Crusher, Division of Cardiology [facility] documented in this encounter Plan of Treatment Date Type Specialty Care Team Description 08/19/2019 Office Visit Cardiology Layla Schaeffer MD [address] [place] [id number] Health Maintenance Due Date Last Done Comments DTaP,Tdap,and Td Vaccines (1 - Tdap) 1955 Breast Cancer Screening (MAMMOGRAM) 1984 COLONOSCOPY 1994 Zoster Recombinant Vaccine (SHINGRIX) (1 of 2) 1994 LUNG CANCER SCREEN: Recommended for age 55-80 with 30 1999 + pack year history Medicare Wellness Visit 2009 Osteoporosis Screening 2009 PNEUMOCOCCAL VACCINES 65+ (1 of 2 - PCV13) 2009 INFLUENZA VACCINE (#1) 2019 05/10/2018 documented as of this encounter Results Not on filedocumented in this encounter Visit Diagnoses Diagnosis Chronic heart failure with preserved ejection fraction - Primary Obstructive sleep apnea syndrome Obstructive sleep apnea (adult) (pediatric) Morbid obesity documented in this encounter Insurance Payer Benefit Plan Subscriber ID Effective Phone Address Type / Group Dates AETNA - AETNA [id number] 2014-[place] Medicare Adv MANAGED MEDICARE ADV nt [id number] [place] [address] documented as of this encounter
--- OUTSIDE RECORDS SUMMARY | 2019-09-29 18:45 | XMS REPORT | Summary of Care ---
:1945 Author Organization [facility] Address [address] [place] [address] Care Team Providers Name Role Phone Tyree Pacheco Primary Care Provider Reason for Visit Reason Comments Follow-up 1 week Encounter Details Date Type Department Care Team Description 08/12/[address] [facility] Layla Schaeffer MD Chronic heart failure with preserved ejection fraction (Primary Dx); Cardiology- [address] Obstructive sleep apnea syndrome; [address] [place] [address] Morbid obesity [facility], [address] [place] [id number] [phone] Allergies Active Allergy Reactions Severity Noted Date [...] Comments Blood Pressure 130/72 08/12/2019 2:34 PM STRAND AND BINDER CONTROLLER Pulse 88 08/12/2019 2:31 PM STRAND AND BINDER CONTROLLER Temperature - - Respiratory Rate 18 08/12/2019 2:31 PM STRAND AND BINDER CONTROLLER Oxygen Saturation 94% 08/12/2019 2:31 PM STRAND AND BINDER CONTROLLER Inhaled Oxygen Concentration - - Weight 117.3 kg (258 lb 9.6 oz) 08/12/2019 2:31 PM STRAND AND BINDER CONTROLLER Height 157.5 cm (5' 2") 08/12/2019 2:31 PM STRAND AND BINDER CONTROLLER Body Mass Index 47.3 08/12/2019 2:31 PM STRAND AND BINDER CONTROLLER documented in this encounter Patient Instructions Patient InstructionsCaLayla meadows MD - 08/12/2019 2:00 PM CSTMetolazone 1 tablet 30 minutes before morning bumex on Monday//Monday Call me let me know your response to the new pill after 3-4 days ND AND BINDER CONTROLLER documented in this encounter Progress Notes Layla [...] file Gets together: Not on file Attends episcopal service: Not on file Active member of [...] Heart Mother CHF Thyroid Mother Cancer Father [email or web address] Hypertension Father Arthritis Father High cholesterol Father Depression Maternal Grandfather RI (myocardial infarction) Brother [email or web address] Review of Systems: (-)=Negative,(+)=Positive General: (-) fever, [...] TOTAL-Q (mg/dL) Date Value 05/08/2018 158 TSH [id number] (mg/dL (calc)) Date Value 05/08/2018 87 TSH, [...] estimate RVSP. Cardiac Cath: 15 years ago [facility] no CAD DSE 2016--No ischemia Carotid [...] week Layla Schaeffer MD, FACC, FACP, RADHA Scuba Instructor, Division of Cardiology [facility] documented in this encounter Plan of Treatment Date Type Specialty Care Team Description 08/19/2019 Office Visit Cardiology Layla Schaeffer MD [address] [place] [address] Health Maintenance Due Date Last Done [...] Type / Group Dates AETNA - AETNA [id number] 2014-[place]yma [address] Medicare Adv MANAGED MEDICARE ADV nt [id number] [place] [address] documented as of this encounter
--- OUTSIDE RECORDS SUMMARY | 2019-09-29 18:46 | XMS REPORT | Summary of Care ---
:1945 Author Organization [facility] Address [address] [place] [address] Care Team Providers Name Role Phone Tyree Pacheco Delmis Primary Care Provider Reason for Visit Reason Comments LAB WORK Auth/Cert Status Reason Specialty Diagnoses / Referred By Referred To Procedures Contact Contact Clinical Medical Diagnoses Chronic heart failure with preserved ejection fraction Ad[facility] Lab Laboratory Procedures BASIC METABOLIC PANEL (NA, K, CL, CO2, GLUCOSE, BUN, CREATININE, CA) [address] [facility] [place] [address] Encounter Details Date Type Department Care Team Description 08/05/2019 Medical Receptionist Assistant Visit [facility] Layla Schaeffer MD [address] [facility] [address] [place] [address] Chronic heart Phlebotomy 1, [facility] Lab failure with [facility] preserved ejection [address] [facility] [place] [address] Allergies Active Allergy Reactions Severity Noted Date Comments Codeine Nausea and/or Vomiting High 12/12/2016 documented as of this encounter (statuses as of 08/05/2019) Medications Medication Sig Dispensed Refills Start Date [...] Reported on 01/30/2018 12:01 PM gabapentin (NEURONTIN) 600 mg Take 1 tablet by 180 tablet 3 11/16/2015 Active tabletIndications: Chronic back mouth 2 (two) times pain daily. pantoprazole (PROTONIX) 40 mg EC Take 1 tablet by 90 tablet 3 11/16/2015 Active tabletIndications: mouth daily. Gastroesophageal reflux disease without esophagitis traZODONE 100 mg tablet Take 100 mg by mouth 0 Active at bedtime. HYDROmorphOne 4 mg Take 2 mg by mouth 4 0 Active tabletIndications: Syncope, (four) times daily. unspecified syncope type, Essential hypertension, Obstructive sleep apnea syndrome naproxen 500 mg tablet Take 1 tablet by 180 tablet 0 08/11/2017 Active mouth 2 (two) times daily with meals. DULoxetine 60 mg capsule TAKE ONE CAPSULE BY 3 01/05/2018 Active MOUTH EVERY DAY BREO ELLIPTA 200-25 mcg/dose 0 01/25/2018 Active DsDv carvedilol 3.125 mg tablet Take 1 tablet by 180 tablet 1 01/22/2019 Active mouth 2 (two) times daily with meals. apixaban 2.5 mg tablet Take 1 tablet by 180 tablet 1 02/27/2019 Active mouth 2 (two) times daily. spironolactone 25 mg Take 1 tablet by 30 tablet 5 04/19/2019 Active tabletIndications: (HFpEF) heart mouth daily. You failure with preserved ejection will need new lab fraction work done in September 2019 atorvastatin 40 mg tablet Take 1 tablet by 60 tablet 5 07/11/2019 Active mouth daily. KCL 20 mEq tabletIndications: Take 1 tablet by 60 tablet 2 07/17/2019 Active (HFpEF) heart failure with mouth 2 (two) times preserved ejection fraction daily. bumetanide 1 mg Take 2 tablets by 30 tablet 1 08/05/2019 Active tabletIndications: Chronic heart mouth every morning failure with preserved ejection and evening. fraction documented as of this encounter (statuses as of 08/05/2019) Active Problems Problem Noted Date (HFpEF) heart failure with preserved ejection fraction 05/29/2017 Bilateral carotid artery disease 02/06/2017 Essential hypertension 06/19/2015 COPD (chronic obstructive pulmonary disease) 06/19/2015 Hyperlipidemia 06/19/2015 Sleep apnea 06/19/2015 Osteoarthritis of both knees 06/19/2015 documented as of this encounter (statuses as of 08/05/2019) Immunizations Name Administration Dates Next Due Influenza [...] Treatment Date Type Specialty Care Team Description 08/12/2019 Office Visit Cardiology Layla Schaeffer MD [address] [place] [address] [place] [address] [id number] Name Type Priority Associated Diagnoses Date/Time N-TERMINAL PRO-BNP LAB Routine Chronic heart failure with 08/05/2019 4:28 PM [facility] preserved ejection fraction Health Maintenance Due Date Last Done Comments [...] 2019 05/10/2018 documented as of this encounter Procedures Procedure Name Priority Date/Time Associated Diagnosis Comments BASIC METABOLIC Routine 08/05/2019 4:28 PM Chronic heart Results for this PANEL (NA, K, CL, [facility] failure with procedure are in CO2, GLUCOSE, BUN, preserved ejection the results CREATININE, CA) fraction section. documented in this encounter Results BASIC METABOLIC PANEL (NA, K, CL, CO2, GLUCOSE, BUN, CREATININE, CA) (2019 4:28 PM [facility]) NA 140 135 - 145 [facility] mmol/L [facility] K 5.3 (H) 3.5 - 5.0 [facility] mmol/L HOSPITAL [facility] CL 98 98 - 108 mmol/L [facility] CO2 TOTAL 34 (H) 23 - 31 mmol/L [facility] AGAP 8 2 - 16 [facility] BUN 23 7 - 23 mg/dL [facility] GLUCOSE 117 (H) 70 - 110 mg/dL [facility] CREATININE 0.80 0.50 - 1.04 [facility] mg/dL [facility] CALCIUM 10.6 8.6 - 10.6 [facility] mg/dL [facility] eGFR Calculation 69.9 mL/min/1.73m2 [facility] (Non-[facility] LABORATORY [place]) eGFR Calculation 84.8 mL/min/1.73m2 [facility] () [facility] Specimen Blood Narrative Performed At Association of Glomerular Filtration Rate (GFR) [facility] and Staging of Kidney Disease* + + +- + | GFR (mL/min/1.73 m2) | With Kidney Damage | Without Kidney Damage + + +- + | >90 | Stage one | Normal + + +- + | 60-89 | Stage two | Decreased GFR + + +- + | 30-59 | Stage three | Stage three + + +- + | 15-29 | Stage four | Stage four + + +- + | <15 (or dialysis) | Stage five | Stage five + + +- + *Each stage assumes the associated GFR level has been in effect for at least three months. Stages 1 to 5, with or without kidney disease, indicate chronic kidney disease. Notes: Determination of stages one and two (with eGFR >59mL/min/1.73 m2) requires estimation of kidney damage for at least three months as defined by structural or functional abnormalities of the kidney, manifested by either: Pathological abnormalities or Markers of kidney damage (including abnormalities in the composition of the blood or urine or abnormalities in imaging tests). Performing Organization Address City/State/Zipcode Phone Number [facility] CLIA: [id number], [address] [place] [address] documented in this encounter Visit Diagnoses Diagnosis Chronic heart failure with preserved ejection fraction documented in this encounter Insurance Payer Benefit Plan Subscriber ID Effective Phone Address Type / Group Dates AETNA - AETNA [id number] 2014-[place] [address] Medicare Adv MANAGED MEDICARE ADV nt [id number] [place] [address] documented as of this encounter"
--- OUTSIDE RECORDS SUMMARY | 2019-09-29 18:46 | XMS REPORT | Summary of Care ---
:1945 Author Organization [facility] Address [address] [place] [address] Care Team Providers Name Role Phone Tyree Pacheco Primary Care Provider Reason for Visit Reason Comments Follow-up Work in/SOB, Edema,Weight Gain Ekg Done today in Office Auth/Cert Status Reason Specialty Diagnoses / Referred By Referred To Procedures Contact Contact Clinical Medical Diagnoses Chronic heart failure with preserved ejection fraction [facility] Lab Laboratory Procedures BASIC METABOLIC PANEL (NA, K, CL, CO2, GLUCOSE, BUN, CREATININE, CA) [address] [place] [address] [place] [address] Encounter Details Date Type Department Care Team Description 08/05/2019 Office Visit [facility] Layla Schaeffer MD Chronic heart failure with preserved ejection fraction (Primary Dx); Cardiology- [address] Essential hypertension; [address] [place] [address] DRIVE Morbid obesity; Drive, [address] Obstruct[place] [phone] Allergies Active Allergy Reactions Severity Noted Date [...] on 01/30/2018 12:01 PM gabapentin (NEURONTIN) 600 Take 1 tablet 180 tablet 3 11/16/2015 Active mg tabletIndications: by mouth 2 Chronic back pain (two) times daily. pantoprazole (PROTONIX) 40 Take 1 tablet 90 tablet 3 11/16/2015 Active mg EC tabletIndications: by mouth daily. Gastroesophageal reflux disease without esophagitis [...] 01/25/2018 Active mcg/dose DsDv carvedilol 3.125 mg tablet Take 1 tablet 180 tablet 1 01/22/2019 Active by mouth 2 (two) times daily with meals. apixaban 2.5 mg tablet Take 1 tablet 180 tablet 1 02/27/2019 Active by mouth 2 (two) times daily. spironolactone 25 mg Take 1 tablet 30 tablet 5 04/19/2019 Active tabletIndications: (HFpEF) by mouth daily. heart failure with You will need preserved ejection new lab work fraction done in September 2019 atorvastatin 40 mg tablet Take 1 tablet 60 tablet 5 07/11/2019 Active by mouth daily. KCL 20 mEq Take 1 tablet 60 tablet 2 07/17/2019 Active tabletIndications: (HFpEF) by mouth 2 heart failure with (two) times preserved ejection daily. fraction bumetanide 1 mg Take 2 tablets 30 tablet 1 08/05/2019 Active tabletIndications: Chronic by mouth every heart failure with morning and preserved ejection evening. fraction furosemide 40 mg Take 1 tablet 225 tablet 1 07/17/2019 Discontinued tabletIndications: (HFpEF) by mouth every 020 heart failure with morning and preserved ejection evening. fraction documented as of this encounter [...] Sign Reading Time Taken Comments Blood Pressure 145/80 08/05/2019 2:25 PM [employer] INST[employer]ER Pulse 88 08/05/2019 2:16 PM [employer] INST[employer] Temperature - - Respiratory Rate 19 08/05/2019 2:16 PM [employer] INST[employer]ER Oxygen Saturation 96% 08/05/2019 2:16 PM [employer] IN[employer] Inhaled Oxygen Concentration - - Weight 115.1 kg (253 lb 11.2 oz) 08/05/2019 2:16 PM [employer] Height 157.5 cm (5' 2") 08/05/2019 2:16 PM [employer] INST[employer] Body Mass Index 46.4 08/05/2019 2:16 PM [employer] documented in this encounter Patient Instructions Patient InstructionsCaLayla meadows MD - 08/05/2019 2:00 PM CSTStop lasix Start bumex 2 mg 2 times a dayElectronically signed by Layla Schaeffer MD at 09/2019 2:47 PM [employer] documented in this encounter Progress Notes Layla Schaeffer MD - 08/05/2019 2:00 PM CST CARDIOLOGY CLINIC NOTE 08/05/2019 Reason for Referral/Presenting Complaint: HFpEF PCP: Tyree [...] edema. We increased lasix and added spironolactone. She lost 8 lbs. For the past several weeks she has had worsening SOB with activity, leg edema. Gained 23 lbs. Cannotbreathe with C-PAP. 30 degree orthopnea. UOP is low. EKG--08/05/2019--reviewed by me--normal sinus rhythm, low voltage PMH: Past Medical History: Diagnosis Date (HFpEF) heart failure with preserved ejection fraction 05/29/2017 Arthritis Bilateral carotid artery disease 02/06/2017 Hyperlipidemia Hypertension Current Medications: Current Outpatient Medications Medication Sig Dispense Refill bumetanide 1 mg tablet Take 2 tablets by mouth every morning and evening. 30 tablet 1 KCL 20 mEq tablet Take 1 tablet [...] 5 (five) times daily.) 270 tablet 3 naproxen 500 mg tablet Take 1 tablet by mouth 2 (two) times daily with meals. 180 tablet 0 foLIC acid (FOLATE) 1 mg tablet TAKE 1 TABLET BY MOUTH TWICE A DAY 180 Tab 0 methocarbamol (ROBAXIN) 750 mg tablet Take [...] file Gets together: Not on file Attends hoahaoism service: Not on file Active member of [...] Heart Mother CHF Thyroid Mother Cancer Father [email or web address] Hypertension Father Arthritis Father High cholesterol Father Depression Maternal Grandfather MA (myocardial infarction) Brother [email or web address] Review of Systems: (-)=Negative,(+)=Positive General: (-) fever, [...] (-) anxiety, (-) depression Physical Examination: BP (!) 145/80 | Pulse 88 | Resp 19 | Ht 5' 2" (1.575 m) | Wt 253 lb 11.2 oz (115.1 kg) | SpO2 96% | BMI 46.40 kg/m Constitutional: alert and oriented x 3 [...] TOTAL-Q (mg/dL) Date Value 05/08/2018 158 TSH [id number] (mg/dL (calc)) Date Value 05/08/2018 87 TSH, [...] estimate RVSP. Cardiac Cath: 15 years ago [facility] no CAD DSE 2016--No ischemia Carotid duplex-- Bilateral 50-79% Assessment/Plan: ICD-10-CM ICD-9-CM 1. Chronic heart failure with preserved ejection fraction I50.32 428.9 2. Essential hypertension I10 401.9 3. Morbid obesity E66.01 278.01 4. Obstructive sleep apnea syndrome G47.33 327.23 HFpEF--She has gained significant amount of weight with volume overload. Poor response to lasix. Will change lasix to Bumex 2 mg BID. Continue spironolactone 25 mg daily. Discussed low salt diet, diet and weight loss. Will check BMP, BNP and CXR today. Left leg DVT--Repeat venous duplex showed chronic DVT. D-dimer still elevated. Will continue Eliquisat 2.5 mg BID. HTN--Her BP has been usually controlled. Will watch for adjustment. Continue coreg at 3.125 mg BID. Carotid artery stenosis--Asymptomatic. Will continue ASA and lipitor. Carotid duplex showed L ICA 50-79%. NORMA--Cannot use C-PAP. RTC 1 week Layla Schaeffer MD, FACC, FACP, RADHA Product Safety Manager, Division of Cardiology [facility] documented in this encounter Plan of Treatment Date Type Specialty Care Team Description 08/12/2019 Office Visit Cardiology Layla Schaeffer MD [address] [facility] [address] [place] [address] Name Type Priority Associated Diagnoses Order Schedule EKG-12 LEAD ROUTINE HEART STATION Routine Chronic heart failure Ordered: with preserved ejection fraction Health Maintenance Due Date [...] 05/10/2018 documented as of this encounter Results N-TERMINAL PRO-BNP (08/05/2019 4:28 PM [employer]) NT-proBNP 87 <=450 pg/mL [facility] Specimen Blood Narrative Performed At Biotin has been reported to cause a negative [facility] bias, interpret results relative to patient's use of biotin. Performing Organization Address City/State/Zipcode Phone Number [facility] CLIA: [id number], [address] [place] [address] BASIC METABOLIC PANEL (NA, K, CL, CO2, GLUCOSE, BUN, CREATININE, CA) (2019 4:28 PM [employer]) NA 140 135 - 145 [facility] mmol/L HOSPITAL LABORATORY K 5.3 (H) 3.5 - 5.0 [facility] mmol/L [facility] CL 98 98 - 108 mmol/L [facility] CO2 TOTAL 34 (H) 23 - 31 mmol/L [facility] AGAP 8 2 - 16 [facility] BUN 23 7 - 23 mg/dL [facility] GLUCOSE 117 (H) 70 - 110 mg/dL [facility] CREATININE 0.80 0.50 - 1.04 [facility] mg/dL [facility] CALCIUM 10.6 8.6 - 10.6 [facility] mg/dL [facility] eGFR Calculation 69.9 mL/min/1.73m2 [facility] (Non-[facility] LABORATORY [place]) eGFR Calculation 84.8 mL/min/1.73m2 [facility] () [facility] Specimen Blood Narrative Performed At Association of Glomerular Filtration Rate (GFR) [facility] and Staging of Kidney Disease* + [...] tests). Performing Organization Address City/State/Zipcode Phone Number [facility] CLIA: [id number], [address] [place] [address] XR CHEST 2 VW (08/05/2019 4:19 PM [employer] INSTALLER) Specimen Impressions Performed At PACS/VR/DOSE Mild cardiomegaly. Mild pulmonary vascular congestion. Preliminary Report Dictated by Resident: Nica Pires I, Zaina Rivera MD., have reviewed this study and agree with the above report. Narrative Performed At XR CHEST 2 VW PACS/VR/DOSE HISTORY: [facility] COMPARISON: None FINDINGS: Mild pulmonary vascular congestion. Trace bilateral pleural effusions.. The heart is mildly enlarged. Atherosclerotic calcifications are seen in the aortic arc. No pneumothorax is found. Bilateral glenohumeral arthroplasty changes are noted. Procedure Note [facility], Radiant Results Inft User - 08/05/2019 5:04 PM CAR [employer] INST[employer]ER XR CHEST 2 VW HISTORY: [facility] COMPARISON: None FINDINGS: Mild pulmonary vascular congestion. Trace bilateral pleural effusions.. The heart is mildly enlarged. Atherosclerotic calcifications are seen in the aortic arc. No pneumothorax is found. Bilateral glenohumeral arthroplasty changes are noted. IMPRESSION Mild cardiomegaly. Mild pulmonary vascular congestion. Preliminary Report Dictated by Resident: Nica Pires I, Zaina Rivera MD., have reviewed this study and agree with the above report. Performing Organization Address City/State/Zipcode Phone Number PACS/VR/DOSE documented in this encounter Visit Diagnoses Diagnosis Chronic heart failure with preserved ejection fraction - Primary Essential hypertension Unspecified essential hypertension Morbid obesity Obstructive sleep apnea syndrome Obstructive sleep apnea (adult) (pediatric) documented in this encounter Insurance Payer Benefit Plan Subscriber ID Effective Phone Address Type / Group Dates AETNA - AETNA [id number] 2014-[place] [address] Medicare Adv MANAGED MEDICARE ADV nt [id number] [place] [address] documented as of this encounter
--- OUTSIDE RECORDS SUMMARY | 2019-09-29 18:46 | XMS REPORT | Summary of Care ---
:1945 Author Organization [facility] Address [address] [place] [address] Care Team Providers Name Role Phone Tyree Pacheco Delmis Primary Care Provider Reason for Visit Auth/Cert Status Reason Specialty Diagnoses / Referred By Referred To Procedures Contact Contact Clinical Medical Diagnoses Chronic heart failure with preserved ejection fraction Adc Lab Laboratory Procedures BASIC METABOLIC PANEL (NA, K, CL, CO2, GLUCOSE, BUN, CREATININE, CA) [address] [place] [address] [place] [address] Encounter Details Date Type Department Care Team Description 08/05/2019 Hospital Encounter [facility] Layla Schaeffer MD Chronic heart [facility] [address] [facility] failure with Radiology DRIVE preserved ejection [address] [place] [address] Dr [address] [place] [address] [id number] Allergies Active Allergy Reactions Severity Noted Date Comments Codeine Nausea and/or Vomiting High 12/12/2016 documented as of this encounter (statuses as of 08/06/2019) Medications Medication Sig Dispensed Refills Start Date [...] as of this encounter (statuses as of 08/06/2019) Active Problems Problem Noted Date (HFpEF) heart failure with preserved ejection fraction 05/29/2017 Bilateral carotid artery disease 02/06/2017 Essential hypertension 06/19/2015 COPD (chronic obstructive pulmonary disease) 06/19/2015 Hyperlipidemia 06/19/2015 Sleep apnea 06/19/2015 Osteoarthritis of both knees 06/19/2015 documented as of this encounter (statuses as of 08/06/2019) Immunizations Name Administration Dates Next Due Influenza [...] 08/12/2019 Office Visit Cardiology Layla Schaeffer MD [address] [place] [address] [place] [address] Health Maintenance Due Date Last Done [...] Procedure Name Priority Date/Time Associated Diagnosis Comments XR CHEST 2 VW Routine 08/05/2019 4:19 PM Chronic heart failure Results for this GEOSPATIAL IMAGERY INTELLIGENCE ANALYST with preserved procedure are in the ejection fraction results section. documented in this encounter Results XR CHEST 2 VW (08/05/2019 4:19 PM GEOSPATIAL IMAGERY INTELLIGENCE ANALYST) Specimen Impressions Performed At PACS/VR/DOSE Mild cardiomegaly. [...] Results Inft User - 08/05/2019 5:04 PM GEOSPATIAL IMAGERY INTELLIGENCE ANALYST XR CHEST 2 VW HISTORY: [facility] COMPARISON: [...] Type / Group Dates AETNA - AETNA [id number] 2014-Prese [address] Medicare Adv MANAGED MEDICARE ADV nt [id number] [place] [address] documented as of this encounter
--- OUTSIDE RECORDS SUMMARY | 2019-09-29 18:46 | XMS REPORT | Summary of Care ---
:[address] [facility] Address [address] [place] [address] Care Team Providers Name Role Phone Tyree [...] K, CL, CO2, GLUCOSE, BUN, CREATININE, CA) [address] [place] [address] [place] [address] Encounter Details Date Type Department Care Team Description 08/05/2019 Office Visit [facility] Layla Schaeffer MD Chronic heart failure with preserved ejection fraction (Primary Dx); Cardiology- [address] Essential hypertension; [address] [place] [address] DRIVE Morbid obesity; Drive, [address] Obstructive [place] [phone] Allergies Active Allergy Reactions Severity Noted Date [...] Comments Blood Pressure 145/80 08/05/2019 2:25 PM ENVIRONMENTAL SERVICES SPECIALIST Pulse 88 08/05/2019 2:16 PM ENVIRONMENTAL SERVICES SPECIALIST Temperature - - Respiratory Rate 19 08/05/2019 2:16 PM ENVIRONMENTAL SERVICES SPECIALIST Oxygen Saturation 96% 08/05/2019 2:16 PM ENVIRONMENTAL SERVICES SPECIALIST Inhaled Oxygen Concentration - - Weight 115.1 kg (253 lb 11.2 oz) 08/05/2019 2:16 PM ENVIRONMENTAL SERVICES SPECIALIST Height 157.5 cm (5' 2") 08/05/2019 2:16 PM ENVIRONMENTAL SERVICES SPECIALIST Body Mass Index 46.4 08/05/2019 2:16 PM ENVIRONMENTAL SERVICES SPECIALIST documented in this encounter Patient Instructions Patient InstructionsCaLayla meadows MD - 08/05/2019 2:00 PM CSTStop lasix Start bumex 2 mg 2 times a dayElectronically signed by Layla Schaeffer MD at 09/2019 2:47 PM ENVIRONMENTAL SERVICES SPECIALIST documented in this encounter Progress Notes Layla [...] file Gets together: Not on file Attends worship service: Not on file Active member of [...] Heart Mother CHF Thyroid Mother Cancer Father [email or web address] Hypertension Father Arthritis Father High cholesterol Father Depression Maternal Grandfather IA (myocardial infarction) Brother [email or web address] Review of Systems: (-)=Negative,(+)=Positive General: (-) fever, [...] TOTAL-Q (mg/dL) Date Value 05/08/2018 158 TSH [id number] (mg/dL (calc)) Date Value 05/08/2018 87 TSH, [...] RVSP. Cardiac Cath: 15 years ago [facility] no CAD DSE 2016--No ischemia Carotid [...] week Layla Schaeffer MD, FACC, FACP, RADHA Washing Machine Assembler, Division of Cardiology [facility] documented in this encounter Plan of Treatment Date Type Specialty Care Team Description 08/12/2019 Office Visit Cardiology Layla Schaeffer MD [address] [facility] [address] [place] [address] Name Type Priority Associated Diagnoses [...] encounter Results N-TERMINAL PRO-BNP (08/05/2019 4:28 PM ENVIRONMENTAL SERVICES SPECIALIST) NT-proBNP 87 <=450 pg/mL [facility] Specimen Blood Narrative Performed At Biotin has been reported to cause a negative [facility] bias, interpret results relative to patient's use of biotin. Performing Organization Address City/State/Zipcode Phone Number [facility] CLIA: [id number], [address] [place] [address] BASIC METABOLIC PANEL (NA, K, CL, CO2, GLUCOSE, BUN, CREATININE, CA) (2019 4:28 PM ENVIRONMENTAL SERVICES SPECIALIST) NA 140 135 - 145 [facility] mmol/L HOSPITAL LABORATORY K 5.3 (H) 3.5 - 5.0 [facility] mmol/L [facility] CL 98 98 - 108 mmol/L [facility] CO2 TOTAL 34 (H) 23 - 31 mmol/L [facility] AGAP 8 2 - 16 [facility] BUN 23 7 - 23 mg/dL [facility] GLUCOSE 117 (H) 70 - 110 mg/dL [facility] CREATININE 0.80 0.50 - 1.04 [facility] mg/dL [facility] CALCIUM 10.6 8.6 - 10.6 [facility] mg/dL [facility] eGFR Calculation 69.9 mL/min/1.73m2 [facility] ([facility] [place]) eGFR Calculation 84.8 mL/min/1.73m2 [facility] () [facility] Specimen Blood Narrative Performed At Association of Glomerular Filtration Rate (GFR) [facility] and Staging of Kidney Disease* + [...] tests). Performing Organization Address City/State/Zipcode Phone Number [facility] CLIA: [id number], [address] [place] [address] XR CHEST 2 VW (08/05/2019 4:19 PM ENVIRONMENTAL SERVICES SPECIALIST) Specimen Impressions Performed At PACS/VR/DOSE Mild cardiomegaly. [...] Results Inft User - 08/05/2019 5:04 PM ENVIRONMENTAL SERVICES SPECIALIST XR CHEST 2 VW HISTORY: HENRIQUEZ COMPARISON: [...] Type / Group Dates AETNA - AETNA [id number] 2014-Prese [address] BOX Medicare Adv MANAGED MEDICARE ADV nt [id number] [place] [address] documented as of this encounter
--- OUTSIDE RECORDS SUMMARY | 2019-09-29 18:46 | XMS REPORT | Summary of Care ---
:1945 Author Organization [facility] Address [address] [place] [address] Care Team Providers Name Role Phone Tyree Pacheco Primary Care Provider Reason for Visit Reason Comments Rx Concern/Question Encounter Details Date Type Department Care Team Description 07/17/2019 Telephone [facility] Cardiology- Layla Schaeffer MD Rx Concern/Question [address], [address] [place] [address] [place], [place] [address] Allergies Active Allergy Reactions Severity Noted Date Comments Codeine Nausea and/or Vomiting High 12/12/2016 documented as of this encounter (statuses as of 07/18/2019) Medications Medication Sig Dispensed Refills Start Date [...] tablet 5 07/11/2019 Active by mouth daily. furosemide 40 mg Take 1 tablet 225 tablet 1 07/17/2019 Active tabletIndications: (HFpEF) by mouth every heart failure with morning and preserved ejection evening. fraction KCL 20 mEq Take 1 tablet 60 tablet 2 07/17/2019 Active tabletIndications: (HFpEF) by mouth 2 heart failure with (two) times preserved ejection daily. fraction furosemide 40 mg 60 mg AM and 40 225 tablet 1 04/30/2019 Discontinued tabletIndications: (HFpEF) mg PM 020 heart failure with preserved ejection fraction KCL 20 mEq Take 1 tablet 60 tablet 5 05/24/2019 Discontinued tabletIndications: (HFpEF) by mouth daily. 020 heart failure with preserved ejection fraction documented as of this encounter (statuses as of 07/18/2019) Active Problems Problem Noted Date (HFpEF) heart failure with preserved ejection fraction 05/29/2017 Bilateral carotid artery disease 02/06/2017 Essential hypertension 06/19/2015 COPD (chronic obstructive pulmonary disease) 06/19/2015 Hyperlipidemia 06/19/2015 Sleep apnea 06/19/2015 Osteoarthritis of both knees 06/19/2015 documented as of this encounter (statuses as of 07/18/2019) Social History Tobacco Use Types Packs/Day Years [...] Type / Group Dates AETNA - AETNA [id number] 2014-Zuleyma DOYLE Medicare Adv MANAGED MEDICARE ADV nt [id number] [place] [address] documented as of this encounter
--- OUTSIDE RECORDS SUMMARY | 2019-09-29 18:47 | XMS REPORT | Summary of Care ---
:1945 Author Organization [facility] Address [address] [place] [address] Care Team Providers Name Role Phone Tyree Pacheco Primary Care Provider Reason for Visit Reason Comments Talk To Nurse Encounter Details Date Type Department Care Team Description 08/16/2019 Telephone [facility] Cardiology- Layla Schaeffer MD Talk To Nurse Dulce [address] [facility] [address] [facility], [address] [place] [address] [place] [phone] Allergies Active Allergy Reactions Severity Noted Date Comments Codeine Nausea and/or Vomiting High 12/12/2016 documented as of this encounter (statuses as of 08/22/2019) Medications Medication Sig Dispensed Refills Start Date [...] ELLIPTA 200-25 mcg/dose 0 01/25/2018 Active DsDv apixaban 2.5 mg tablet Take 1 tablet [...] bumetanide 1 mg Take 2 tablets by 60 tablet 1 08/12/2019 Active tabletIndications: Chronic heart mouth every morning failure with preserved ejection and evening. fraction metOLazone 2.5 mg 1 tablet 30 minutes 10 tablet 0 08/12/2019 Active tabletIndications: Chronic heart before morning bumex failure with preserved ejection on fraction Monday//Mon carvediloL 3.125 mg tablet Take 1 tablet by 180 tablet 0 08/16/2019 Active mouth 2 (two) times daily with meals. documented as of this encounter (statuses as of 08/22/2019) Active Problems Problem Noted Date (HFpEF) heart failure with preserved ejection fraction 05/29/2017 Bilateral carotid artery disease 02/06/2017 Essential hypertension 06/19/2015 COPD (chronic obstructive pulmonary disease) 06/19/2015 Hyperlipidemia 06/19/2015 Sleep apnea 06/19/2015 Osteoarthritis of both knees 06/19/2015 documented as of this encounter (statuses as of 08/22/2019) Immunizations Name Administration Dates Next Due Influenza [...] Treatment Date Type Specialty Care Team Description 08/28/2019 Office Visit Cardiology Layla Schaeffer MD [address] [place] [address] [place] [address] [phone] Health Maintenance Due Date Last Done Comments [...] Type / Group Dates AETNA - AETNA [id number] 2014-Zuleyma P O BOX Medicare Adv MANAGED MEDICARE ADV nt [id number] [place] [address] documented as of this encounter
--- OUTSIDE RECORDS SUMMARY | 2019-09-29 18:47 | XMS REPORT | Summary of Care ---
:1945 Author Organization [facility] Address [address] [place] [address] Care Team Providers Name Role Phone Tyree Pacheco Primary Care Provider Reason for Visit Reason Comments Follow-up Auth/Cert Status Reason Specialty Diagnoses / Referred By Referred To Procedures Contact Contact Medicine - Diagnoses heart failure [facility] Med Surg Inpatient only [address] [place] [address] [place] [address] Encounter Details Date Type Department Care Team Description 08/28/2019 Office Visit [facility] Layla Schaeffer MD Chronic heart failure Cardiology- [address] with preserved [address] (Primary Dx) [place] [phone] Allergies Active Allergy Reactions Severity Noted Date Comments Codeine Nausea and/or Vomiting High 12/12/2016 documented as of this encounter (statuses as of 08/28/2019) Medications Medication Sig Dispensed Refills Start Date End Date Status methocarbamol Take 750 mg by 0 Suspended (ROBAXIN) 750 mg mouth 3 (three) tablet times daily as needed. foLIC acid (FOLATE) 1 TAKE 1 TABLET 180 Tab 0 09/28/2015 Suspended mg tablet BY MOUTH TWICE A DAY Additional information rOPINIRole (REQUIP) 1 mg Take 1 tablet by 270 tablet 3 11/16/2015 Suspended tabletIndications: Restless mouth 3 (three) legs syndrome times daily. Additional information Patient taking differently: 1 mg Oral 5X DAY, Reported on 01/30/2018 12:01 PM gabapentin (NEURONTIN) 600 mg Take 1 tablet by 180 tablet 3 11/16/2015 Suspended tabletIndications: Chronic back mouth 2 (two) pain times daily. Additional information pantoprazole (PROTONIX) 40 mg Take 1 tablet by 90 tablet 3 11/16/2015 Suspended EC tabletIndications: mouth daily. Gastroesophageal reflux disease without esophagitis Additional information traZODONE 100 mg tablet Take 100 mg by mouth 0 Suspended at bedtime. HYDROmorphOne 4 mg Take 2 mg by mouth 4 0 Suspended tabletIndications: Syncope, (four) times daily. unspecified syncope type, Essential hypertension, Obstructive sleep apnea syndrome naproxen 500 mg tablet Take 1 tablet by mouth 180 tablet 0 08/11/2017 Suspended 2 (two) times daily with meals. Additional information DULoxetine 60 mg capsule TAKE ONE CAPSULE BY 3 01/05/2018 Suspended MOUTH EVERY DAY BREO ELLIPTA 200-25 0 01/25/2018 Suspended mcg/dose DsDv apixaban 2.5 mg tablet Take 1 tablet by mouth 180 tablet 1 02/27/2019 Suspended 2 (two) times daily. Additional information spironolactone 25 mg Take 1 tablet by 30 tablet 5 04/19/2019 Suspended tabletIndications: (HFpEF) mouth daily. You heart failure with preserved will need new lab ejection fraction work done in September 2019 Additional information atorvastatin 40 mg tablet Take 1 tablet by mouth 60 tablet 5 07/11/2019 Suspended daily. Additional information KCL 20 mEq tabletIndications: Take 1 tablet by 60 tablet 2 07/17/2019 Suspended (HFpEF) heart failure with mouth 2 (two) times preserved ejection fraction daily. Additional information bumetanide 1 mg Take 2 tablets by 60 tablet 1 08/12/2019 Suspended tabletIndications: Chronic mouth every morning heart failure with preserved and evening. ejection fraction Additional information metOLazone 2.5 mg 1 tablet 30 minutes before 10 tablet 0 08/12/2019 Suspended tabletIndications: morning bumex on Chronic heart failure Monday//Monday with preserved ejection fraction Additional information carvediloL 3.125 mg tablet Take 1 tablet by mouth 180 tablet 0 08/16/2019 Suspended 2 (two) times daily with meals. Additional information documented as of this encounter (statuses as of 08/28/2019) Active Problems Problem Noted Date Volume overload 08/28/2019 Morbid obesity 08/28/2019 History of DVT (deep vein thrombosis) 08/28/2019 Acute on chronic heart failure with preserved ejection fraction 05/29/2017 Bilateral carotid artery disease 02/06/2017 Essential hypertension 06/19/2015 COPD (chronic obstructive pulmonary disease) 06/19/2015 Hyperlipidemia 06/19/2015 Sleep apnea 06/19/2015 Osteoarthritis of both knees 06/19/2015 documented as of this encounter (statuses as of 08/28/2019) Immunizations Name Administration Dates Next Due Influenza [...] Sign Reading Time Taken Comments Blood Pressure 135/54 08/28/2019 2:53 PM [employer]WOOD SAWYER Pulse 83 08/28/2019 2:51 PM [employer] [facility] Temperature - - Respiratory Rate 19 08/28/2019 2:51 PM [facility]WO[employer] SAWYER Oxygen Saturation 95% 08/28/2019 2:51 PM HARDWO[employer] SAWYER Inhaled Oxygen Concentration - - Weight 117.5 kg (259 lb) 08/28/2019 2:51 PM HARDWOOD SAWYER Height 157.5 cm (5' 2") 08/28/2019 2:51 PM HARDWO[employer] SAWYER Body Mass Index 47.37 08/28/2019 2:51 PM HARDWOOD SAWYER documented in this encounter Progress Notes Joan Cardona, ENRIQUE - 08/28/2019 2:00 PM CST Cc: Chief Complaint Patient presents with Follow-up Little Stafford is a 74 year old female. Patient was admitted per Dr. Schaeffer for Heart Failure. Patient will be in room 2215. Patient went by wheel chair. Allergies Little is allergic to codeine. Medications Outpatient Medications Prior to Visit Medication Sig Dispense Refill carvediloL 3.125 mg tablet Take 1 tablet by mouth 2 (two) times daily with meals. 180 tablet 0 bumetanide 1 mg tablet Take 2 tablets [...] 2 (two) times daily. 180 tablet 1 BREO ELLIPTA 200-25 mcg/dose [...] 3 (three) times daily as needed. No facility-administered medications prior to visit. Histories Past Medical History: Diagnosis Date (HFpEF) heart failure with preserved ejection fraction 05/29/2017 Arthritis Bilateral carotid artery disease 02/06/2017 Hyperlipidemia Hypertension Past Surgical History: Procedure Laterality Date CHOLECYSTECTOMY HYSTERECTOMY TONSILLECTOMY Social History Socioeconomic History Marital status: Spouse [...] file Gets together: Not on file Attends scientology service: Not on file Active member of [...] History Narrative Not on file Family History Problem Relation Age of Onset Heart Mother CHF Thyroid Mother Cancer Father [email or web address] Hypertension Father Arthritis Father High cholesterol Father Depression Maternal Grandfather NH (myocardial infarction) Brother [email or web address] Review of Systems Vital Signs BP 135/54 | Pulse 83 | Resp 19 | Ht 5' 2" (1.575 m) | Wt 259 lb (117.5 kg) | SpO2 95% | BMI 47.37 kg/m Physical Exam aLayla meadows MD - 08/28/2019 2:00 PM CSTNo response to diuresis. Gained 1 more lb. Still SOB. Will admit for IV diuresis. Layla Schaeffer MD, FAC, RADHA Repair Service Dispatcher, Division of Cardiology [facility] documented in this encounter Plan of Treatment Health [...] failure with preserved ejection fraction - Primary documented in this encounter Insurance Payer Benefit Plan Subscriber ID Effective Phone Address Type / Group Dates AETNA - AETNA [id number] 2014-Zuleyma Gamble [address] Medicare Adv MANAGED MEDICARE ADV nt [id number] [place] [address] documented as of this encounter
--- OUTSIDE RECORDS SUMMARY | 2019-09-29 18:47 | XMS REPORT | Summary of Care ---
:1945 Author Organization [facility] Address [address] [place] [address] Care Team Providers Name Role Phone Tyree Pacheco Primary Care Provider Reason for Visit Reason Comments Follow-up Auth/Cert Status Reason Specialty Diagnoses / Referred By Referred To Procedures Contact Contact Medicine - Diagnoses heart failure Adc Med Surg Inpatient only [address] [place] [address] [place] [address] Encounter Details Date Type Department Care Team Description 08/28/2019 Office Visit [facility] Layla Schaeffer MD Chronic heart failure Cardiology- [address] with preserved [address] (Primary Dx) [place] [phone] Allergies Active Allergy Reactions Severity Noted Date [...] Comments Blood Pressure 135/54 08/28/2019 2:53 PM ELECTRIC WHEELCHAIR REPAIRER Pulse 83 08/28/2019 2:51 PM ELECTRIC WHEELCHAIR REPAIRER Temperature - - Respiratory Rate 19 08/28/2019 2:51 PM ELECTRIC WHEELCHAIR REPAIRER Oxygen Saturation 95% 08/28/2019 2:51 PM ELECTRIC WHEELCHAIR REPAIRER Inhaled Oxygen Concentration - - Weight 117.5 kg (259 lb) 08/28/2019 2:51 PM ELECTRIC WHEELCHAIR REPAIRER Height 157.5 cm (5' 2") 08/28/2019 2:51 PM ELECTRIC WHEELCHAIR REPAIRER Body Mass Index 47.37 08/28/2019 2:51 PM ELECTRIC WHEELCHAIR REPAIRER documented in this encounter Progress Notes Joan [...] file Gets together: Not on file Attends rastafarian service: Not on file Active member of [...] IA (myocardial infarction) Brother [email or web address] Review of Systems Vital Signs BP 135/54 | Pulse 83 | Resp 19 | Ht 5' 2" (1.575 m) | Wt 259 lb (117.5 kg) | SpO2 95% | BMI 47.37 kg/m Physical Exam aLayla meadows MD - 08/28/2019 2:00 PM CSTNo response to diuresis. Gained 1 more lb. Still SOB. Will admit for IV diuresis. Layla Schaeffer MD, FAC, RADHA Utility Repairer, Division of Cardiology [facility] documented in this encounter Plan of Treatment [...] Type / Group Dates AETNA - AETNA [id number] 2014-Zuleyma Gamble O BOX Medicare Adv MANAGED MEDICARE ADV nt [id number] [place] [address] documented as of this encounter
--- OUTSIDE RECORDS SUMMARY | 2019-09-29 18:48 | XMS REPORT ---
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 and stage 1 through stage 4 chronic kidney disease, or chronic kidney disease Problem Hypokalemia E87.6 Active Problem Spinal stenosis of cervical region M48.02 Active Problem Other specified postprocedural Z98.890 Active states Problem nursing home current use of inhaled Z79.51 Active steroid Problem nursing home current use of opiate Z79.891 Active analgesic Problem Major depressive disorder F32.9 Active Problem Bariatric surgery status Z98.84 Active Problem Presence of right artificial knee Z96.651 Active joint Problem History of falling Z91.81 Active Problem Presence of urogenital implants Z96.0 Active Problem Presence of right artificial Z96.611 Active shoulder joint Problem Personal history of nicotine Z87.891 Active dependence Problem Personal history of other venous Z86.718 Active thrombosis and embolism Problem Acquired absence of both cervix and Z90.710 Active uterus Problem Acquired absence of other specified Z90.49 Active parts of digestive tract Problem Family history of malignant Z80.9 Active neoplasm, unspecified Problem Body mass index (BMI) 40.0-44.9, Z68.41 Active adult Problem Family history of ischemic heart Z82.49 Active disease and other diseases of the circulatory system Problem Family history of other mental and Z81.8 Active behavioral disorders Assessment Deep vein thrombosis (DVT) of left I82.402 Active lower extremity, unspecified chronicity, unspecified vein Assessment Chronic heart failure with I50.32 Active preserved ejection fraction Problem Insomnia G47.00 Active Problem CHF (congestive heart failure) I50.9 Active Problem Difficulty in walking, not R26.2 Active elsewhere classified Assessment Stenosis of left carotid artery I65.22 Active Problem Mixed incontinence N39.46 Active Problem Other muscle spasm M62.838 Active Problem Other specified polyneuropathies G62.89 Active Problem 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 Problem Stenosis of left carotid artery I65.22 Active Problem Chronic heart failure with I50.32 Active preserved ejection fraction Problem Morbid obesity E66.01 Active Problem Obstructive sleep apnea G47.33 Active Problem Chronic kidney disease, unspecified N18.9 Active Problem Benign essential hypertension I10 Active Problem Morbid (severe) obesity due to E66.01 Active excess calories Problem Restless leg syndrome G25.81 Active Problem 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 Problem Cervicalgia M54.2 Active Problem Accelerated essential hypertension I10 Active Problem Venous insufficiency I87.2 Active Problem Iron deficiency anemia, unspecified D50.9 Active iron deficiency anemia type Problem 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.21 Active Problem Chronic obstructive pulmonary J44.9 Active disease Problem 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 Active Problem 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 Problem Hyperlipidemia, mixed E78.2 Active Medications Medication Code Code Instructions Start End Status Dosage System Date Date Neurontin [facility] 17405358273 600 MG Orally Active 1 tablet Three times a day Duloxetine HCl [facility] 73830169830 60 MG Orally Active 1 capsule Twice a day Singulair [facility] 08078525131 10 MG Orally Active 2 tablets Once a day Spironolactone [facility] 84520187193 25 MG Orally Active 1 tablet Once a day Trazodone HCl [facility] 04981855953 150 MG Orally Active 1 tablet Once a day at bedtime Bumex [facility] 96232214680 2 MG Orally Active 1 tablet twice a day Ropinirole HCl [facility] [address]-86 1 MG Active TAKE 1 TABLET BY MOUTH FIVE TIMES A DAY Hydromorphone HCl [facility] 35270186359 4 MG Orally Active 1 tablet every 8 hrs PRN as needed Albuterol Sulfate [facility] 13952373049 108 (90 Base) Active 2 puffs HFA MCG/ACT as needed Inhalation every 6 hrs PRN Shortness of breath, Cough or Wheezing Hyzaar [facility] 51529593534 50-12.5 MG Active 1 tablet Orally Once a day Furosemide [facility] 10666487129 40 MG Orally Active 1 tablet Once a day Requip [facility] 73221991139 1 MG Orally 5 Active 1 tablet times a day Metolazone [facility] 53566581670 2.5 MG Orally Active 1 tablet Once a day 30 mins before AM bumex Duloxetine HCl [facility] [address]-74 60 MG Active TAKE 1 CAPSULE BY MOUTH TWICE A DAY Zyrtec Allergy [facility] 93015485893 10 MG Orally Active 1 tablet Once a day Methocarbamol [facility] 94749083586 750 MG Orally Active 1 tablet every 8 hrs PRN Eliquis 2.5 mg [facility] 31315740513 2.5 mg by mouth Active one twice daily Hyzaar [facility] 78634853421 50-12.5 MG Active 1 tablet Orally Once a day Coreg [facility] 18640505847 3.125 MG Orally Active 1 tab twice daily Pantoprazole [facility] 66928081067 40 MG Active TAKE 1 Sodium TABLET BY MOUTH EVERY DAY Lipitor [facility] 31461308934 10 MG Orally Active 1 tablet Once a day Furosemide [facility] 61600290465 20 MG Orally Active 1 tablet Once a day Kegley 3 [facility] [address] Active not defined Ferrous Sulfate [facility] 72037717079 324 MG Orally Active 1 tablet Once a day CoQ-10 [facility] [address] Active not defined Folic Acid [facility] 64632609789 1 MG Orally Active 1 tablet Twice a day Aspirin [facility] [address]-32 Active not defined Breo Ellipta [facility] 59627958984 200-25 MCG/INH Active TAKE 1 PUFF BY MOUTH EVERY DAY Potassium [facility] 07760690586 20 MEQ Orally Active 1 tablet Chloride ER Once a day with food Ventolin HFA [facility] 29308415862 108 (90 Base) November 28, Active 2 puffs MCG/ACT 2019 as needed Inhalation every 6 hrs Duloxetine HCl [facility] 66758702488 60 MG Orally Active 1 capsule Twice a day Results No Known Results Summary Purpose [employer] Submission
--- OUTSIDE RECORDS SUMMARY | 2019-09-29 18:48 | XMS REPORT | Summary of Care ---
:1945 Author Organization [facility] Address [address] [place] [address] Care Team Providers Name Role Phone Tyree Pacheco Primary Care Provider Reason for Visit Reason Comments Transition Of Care Encounter Details Date Type Department Care Team Description 09/02/2019 Transition of Care [facility] Katrin Akhtar, [facility]- RN [address] [address] Allergies Active Allergy Reactions Severity Noted Date Comments Codeine Nausea and/or Vomiting High 12/12/2016 documented as of this encounter (statuses as of 09/03/2019) Medications Medication Sig Dispensed Refills Start Date [...] PM gabapentin (NEURONTIN) 600 Take 1 tablet by 180 tablet 3 11/16/2015 Active mg tabletIndications: mouth 2 (two) Chronic back pain times daily. pantoprazole (PROTONIX) 40 Take 1 tablet by 90 tablet 3 11/16/2015 Active mg EC tabletIndications: mouth daily. Gastroesophageal reflux disease without esophagitis traZODONE 100 mg tablet Take 100 mg by 0 Active mouth at bedtime. HYDROmorphOne 4 mg Take 2 mg by 0 Active tabletIndications: Syncope, mouth 4 (four) unspecified syncope type, times daily. Essential hypertension, Obstructive sleep apnea syndrome naproxen 500 mg tablet Take 1 tablet by 180 tablet 0 08/11/2017 Active mouth 2 (two) times daily with meals. DULoxetine 60 mg capsule TAKE ONE CAPSULE 3 01/05/2018 Active BY MOUTH EVERY DAY BREO ELLIPTA 200-25 mcg/dose 0 01/25/2018 Active DsDv apixaban 2.5 mg tablet Take 1 tablet by 180 tablet 1 02/27/2019 Active mouth 2 (two) times daily. spironolactone 25 mg Take 1 tablet by 30 tablet 5 04/19/2019 Active tabletIndications: (HFpEF) mouth daily. You heart failure with preserved will need new lab ejection fraction work done in September 2019 atorvastatin 40 mg tablet Take 1 tablet by 60 tablet 5 07/11/2019 Active mouth daily. KCL 20 mEq Take 1 tablet by 60 tablet 2 07/17/2019 Active tabletIndications: (HFpEF) mouth 2 (two) heart failure with preserved times daily. ejection fraction bumetanide 1 mg Take 2 tablets by 60 tablet 1 08/12/2019 Active tabletIndications: Chronic mouth every heart failure with preserved morning and ejection fraction evening. metOLazone 2.5 mg 1 tablet 30 10 tablet 0 08/12/2019 Active tabletIndications: Chronic minutes before heart failure with preserved morning bumex on ejection fraction Monday// Monday azithromycin 250 mg Take 1 tablet by 3 tablet 0 08/31/2019 Active tabletIndications: mouth daily for 3 0 Bronchitis days. Take 250 mg daily for 3 days. benzonatate 100 mg Take 1 capsule by 20 capsule 0 08/30/2019 Active capsuleIndications: mouth 3 (three) Bronchitis times daily as needed for Cough. documented as of this encounter (statuses as of 09/03/2019) Active Problems Problem Noted Date Volume overload 08/28/2019 Morbid obesity 08/28/2019 History of DVT (deep vein thrombosis) 08/28/2019 Acute on chronic heart failure with preserved ejection fraction 05/29/2017 Bilateral carotid artery disease 02/06/2017 Essential hypertension 06/19/2015 COPD (chronic obstructive pulmonary disease) 06/19/2015 Hyperlipidemia 06/19/2015 Sleep apnea 06/19/2015 Osteoarthritis of both knees 06/19/2015 documented as of this encounter (statuses as of 09/03/2019) Immunizations Name Administration Dates Next Due Influenza [...] Treatment Date Type Specialty Care Team Description 09/09/2019 Office Visit Cardiology Layla Schaeffer MD [address] [place] [address] [place] [address] Health Maintenance Due Date Last Done [...] Type / Group Dates AETNA - AETNA [id number] 2014-Pre[place] [address] Medicare Adv MANAGED MEDICARE ADV nt [id number] [place] [address] documented as of this encounter
--- OUTSIDE RECORDS SUMMARY | 2019-09-29 18:48 | XMS REPORT | Summary of Care ---
:1945 Author Organization [facility] Address [address] [place] [address] Care Team Providers Name Role Phone Tyree Pacheco Delmis Primary Care Provider Reason for Visit Reason Comments Assessment Orders Encounter Details Date Type Department Care Team Description 08/30/2019 Telephone [facility] Cardiology- Layla Schaeffer MD Assessment; Orders [address], [address] [place] [address] [place], [place] [id number] Allergies Active Allergy Reactions Severity Noted Date Comments Codeine Nausea and/or Vomiting High 12/12/2016 documented as of this encounter (statuses as of 09/01/2019) Medications Medication Sig Dispensed Refills Start Date [...] as of this encounter (statuses as of 09/01/2019) Active Problems Problem Noted Date Volume overload 08/28/2019 Morbid obesity 08/28/2019 History of DVT (deep vein thrombosis) 08/28/2019 Acute on chronic heart failure with preserved ejection fraction 05/29/2017 Bilateral carotid artery disease 02/06/2017 Essential hypertension 06/19/2015 COPD (chronic obstructive pulmonary disease) 06/19/2015 Hyperlipidemia 06/19/2015 Sleep apnea 06/19/2015 Osteoarthritis of both knees 06/19/2015 documented as of this encounter (statuses as of 09/01/2019) Immunizations Name Administration Dates Next Due Influenza [...] Type / Group Dates AETNA - AETNA [id number] 2014-[place] [address] Medicare Adv MANAGED MEDICARE ADV nt [id number] [place] [address] documented as of this encounter
--- OUTSIDE RECORDS SUMMARY | 2019-09-29 18:48 | XMS REPORT | Summary of Care ---
:1945 Author Organization [facility] Address [address] [place] [address] Care Team Providers Name Role Phone Josiane Pacheco Primary Care Provider Reason for Referral Other (Routine) Status Reason Specialty Diagnoses / Procedures Referred By Referred To Contact Contact New Request Diagnoses Hypervolemia, unspecified hypervolemia type Keny Urban MD Cai, Qiangjun, MD Procedures Discharge Follow-up: Specialty Provider LAYLA BIANCHI; 1 Week Discharge Follow-up: Specialty Provider LAYLA BIANCHI; 1 Week [address] [facility] [address] [facility] [address] [address] Phone: [place], [place] [phone] (Routine) Status Reason Specialty Diagnoses / Procedures Referred By Referred To Contact Contact New Request Diagnoses Hypervolemia, unspecified hypervolemia type Keny Urban MD Patel, Mitesh M Procedures Discharge Follow-up: PCP JOSIANE PACHECO; 2 Weeks 301 [facility] [address] [facility] [address] [address] Phone: [place], [place] [phone] (Routine) Status Reason Specialty Diagnoses / Referred By Referred To Procedures Contact Contact New Request Procedures Hannah Armenta UNILATERAL VENOUS Little, RECEPTIONIST SCHEDULER DUPLEX LOWER [address] [place] [address] [place] [address] VASCULAR LAB Reason for Visit Reason Comments LEG SWELLING Auth/Cert Status Reason Specialty Diagnoses / Referred By Referred To Procedures Contact Contact Medicine - Diagnoses heart failure Ad[facility] Med Surg Inpatient only [address] [facility] [place] [address] Encounter Details Date Type Department Care Team Description 08/28/2019 - Hospital Encounter ADC Medicine Keny Urban MD Acute on chronic 08/30/2019 Surgery [address] heart failure with [address] [place], [place] preserved ejection [address] [place] [address] [phone] Allergies Active Allergy Reactions Severity Noted Date Comments Codeine Nausea and/or Vomiting High 12/12/2016 documented as of this encounter (statuses as of 08/30/2019) Medications Medication Sig Dispensed Refills Start Date [...] 01/05/2018 Active CAPSULE BY MOUTH EVERY DAY LEIGH ANN ELLIPTA [phone] 0 01/25/2018 Active mcg/dose DsDv apixaban 2.5 mg tablet Take [...] fraction bumetanide 1 mg Take 2 tablets 60 tablet 1 08/12/2019 Active tabletIndications: Chronic by mouth every heart failure with morning and preserved ejection evening. fraction metOLazone 2.5 mg 1 tablet 30 10 tablet 0 08/12/2019 Active tabletIndications: Chronic minutes before heart failure with morning bumex preserved ejection on fraction Monday/ y/Monday azithromycin 250 mg Take 1 tablet 3 tablet 0 08/31/2019 Active tabletIndications: by mouth daily 020 Bronchitis for 3 days. Take 250 mg daily for 3 days. benzonatate 100 mg Take 1 capsule 20 capsule 0 08/30/2019 Active capsuleIndications: by mouth 3 Bronchitis (three) times daily as needed for Cough. carvediloL 3.125 mg tablet Take 1 tablet 180 tablet 0 08/16/2019 Discontinued by mouth 2 020 (two) times daily with meals. documented as of this encounter (statuses as of 08/30/2019) Active Problems Problem Noted Date Volume overload 08/28/2019 Morbid obesity 08/28/2019 History of DVT (deep vein thrombosis) 08/28/2019 Acute on chronic heart failure with preserved ejection fraction 05/29/2017 Bilateral carotid artery disease 02/06/2017 Essential hypertension 06/19/2015 COPD (chronic obstructive pulmonary disease) 06/19/2015 Hyperlipidemia 06/19/2015 Sleep apnea 06/19/2015 Osteoarthritis of both knees 06/19/2015 documented as of this encounter (statuses as of 08/30/2019) Immunizations Name Administration Dates Next Due Influenza [...] Sign Reading Time Taken Comments Blood Pressure 109/43 08/30/2019 10:49 AM RESEARCH AND DEVELOPMENT ENGINEER Pulse 97 08/30/2019 10:49 AM RESEARCH AND DEVELOPMENT ENGINEER Temperature 36.6 C (97.9 F) 08/30/2019 10:49 AM RESEARCH AND DEVELOPMENT ENGINEER Respiratory Rate 20 08/30/2019 10:49 AM RESEARCH AND DEVELOPMENT ENGINEER Oxygen Saturation 88% 08/30/2019 10:49 AM RESEARCH AND DEVELOPMENT ENGINEER notified RN Inhaled Oxygen Concentration - - Weight - - Height - - Body Mass Index - - documented in this encounter Discharge Instructions AppointmentsRosemary Murphy - 08/29/2019 9:47 AM CSTYour follow up appointment with Dr Pacheco September 11 @ 11:[address] [place] [address] [address] [facility] [address] [phone] Please bring all your discharge paper work from this visit with you to your appointment. If you need to make changes to this appointment please call the office. ARCH AND DEVELOPMENT ENGINEER Additional InstructionsMelissa Downs RN - 08/30/2019 Patient Discharge Instructions Discharge date: 08/30/2019 Discharge Orders Discharge Follow-up: PCP JOSIANE PACHECO; 2 Weeks To PCP: JOSIANE PACHECO [[id number]] Patient's Preferred Location: Other - Specify Comments Discharge Disposition: Home Health not related to Admit, (ARS) When (Patients with risk for unplanned readmission score over 16 or those noted as Hospital Dependent should follow up within 7 days with PCP or primary DX specialist): 2 Weeks Risk of Unplanned Readmission:( Score greater than 16 indicates high risk) 9 Cardiac (2 gm Sodium, Low Fat, Low Cholesterol) Diet; Texture: Regular. Texture Regular. Diabetic: No Discharge Condition - Discharge Condition: FAIR Discharge Activity Discharge Activity: As Tolerated VTE Propylaxis- Was ordered during hospitalization Discharge Follow-up: Specialty Provider LAYLA BIANCHI; 1 Week Order Comments: BMP and Magnesium in 1 week To Provider: LAYLA BIANCHI [[id number]] Patient's Preferred Location: [place] Discharge Disposition: Home Health not related to Admit, (ARS) When (Patients with risk for unplanned readmission score over 16 or those noted as Hospital Dependent should follow up within 7 days with PCP or primary DX specialist): 1 Week Risk of Unplanned Readmission:( Score greater than 16 indicates high risk) 9 DISCHARGE INSTRUCTIONS Order Comments: BMP and Magnesium in 1 week. Follow with cardiology for results Home Health Order Order Comments: I certify that Little Stafford is under my care and that I, or a nurse practitioner or physician's nurse's assistant working with me, had a [id number] encounter with this patient on: 08/30/2019. The encounter with Little Stafford was in whole or in part, for the following medical condition(s), which is the primary reason for home health care: Acute on chronic heart failure with preserved ejectionfraction. I am ordering and certify that based on my findings the following services are medically necessary home health services: Evaluation and Treatment, Home Safety Eval and Physical Therapy Eval & Treatment Longterm Services: Medication Management and Teaching PCP follow up: Josiane Pacheco Call lab results to: My clinical findings support the need for the services listed above because: limited mobility and ROM Further, I certify that my clinical findings support that this patient is homebound (i.e. absences from home require considerable and taxing effort and are for medical reasons or zoroastrianism services or infrequently or of short duration when for other reasons) because: Requires a taxing efort to leave home as evidenced by: extreme SOB I understand and acknowledge that this is not a valid order until it is authenticated by a medical provider who has authority within their Scope of Practice to do so. I am inputting this information in my capacity as a scribe. Luis Manuel Moyer RN Facility/Provider [facility] [address] [place] [address] () [phone] ([phone] Take Home Medications These are medications ordered for you by your healthcare provider. Do not take any other medications or supplements unless advised by your healthcare provider. Current Discharge Medication List START taking these medications Details azithromycin 250 mg tablet Take 1 tablet by mouth daily for 3 days. Take 250 mg daily for 3 days. Qty: 3 tablet, Refills: 0 Comments: Take 250 mg daily for 3 days. Associated Diagnoses: Bronchitis benzonatate 100 mg capsule Take 1 capsule by mouth 3 (three) times daily as needed for Cough. Qty: 20 capsule, Refills: 0 Associated Diagnoses: Bronchitis CONTINUE these medications which have NOT CHANGED Details bumetanide 1 mg tablet Take 2 tablets by mouth every morning and evening. Qty: 60 tablet, Refills: 1 Associated Diagnoses: Chronic heart failure with preserved ejection fraction metOLazone 2.5 mg tablet 1 tablet 30 minutes before morning bumex on Monday/ /Monday Qty: 10 tablet, Refills: 0 Associated Diagnoses: Chronic heart failure with preserved ejection fraction KCL 20 mEq tablet Take 1 tablet by mouth 2 (two) times daily. Qty: 60 tablet, Refills: 2 Associated Diagnoses: (HFpEF) heart failure with preserved ejection fraction atorvastatin 40 mg tablet Take 1 tablet by mouth daily. Qty: 60 tablet, Refills: 5 spironolactone 25 mg tablet Take 1 tablet by mouth daily. You will need new lab work done in September 2019 Qty: 30 tablet, Refills: 5 Associated Diagnoses: (HFpEF) heart failure with preserved ejection fraction apixaban 2.5 mg tablet Take 1 tablet by mouth 2 (two) times daily. Qty: 180 tablet, Refills: 1 BREO ELLIPTA 200-25 mcg/dose DsDv DULoxetine 60 mg capsule TAKE ONE CAPSULE BY MOUTH EVERY DAY Refills: 3 naproxen 500 mg tablet Take 1 tablet by mouth 2 (two) times daily with meals. Qty: 180 tablet, Refills: 0 HYDROmorphOne 4 mg tablet Take 2 mg by mouth 4 (four) times daily. Associated Diagnoses: Syncope, unspecified syncope type; Essential hypertension ; Obstructive sleep apnea syndrome traZODONE 100 mg tablet Take 100 mg by mouth at bedtime. gabapentin (NEURONTIN) 600 mg tablet Take 1 tablet by mouth 2 (two) times daily. Qty: 180 tablet, Refills: 3 Associated Diagnoses: Chronic back pain pantoprazole (PROTONIX) 40 mg EC tablet Take 1 tablet by mouth daily. Qty: 90 tablet, Refills: 3 Associated Diagnoses: Gastroesophageal reflux disease without esophagitis rOPINIRole (REQUIP) 1 mg tablet Take 1 tablet by mouth 3 (three) times daily. Qty: 270 tablet, Refills: 3 Associated Diagnoses: Restless legs syndrome foLIC acid (FOLATE) 1 mg tablet TAKE 1 TABLET BY MOUTH TWICE A DAY Qty: 180 Tab, Refills: 0 methocarbamol (ROBAXIN) 750 mg tablet Take 750 mg by mouth 3 (three) times daily as needed. STOP taking these medications carvediloL 3.125 mg tablet Comments: Reason for Stopping: For questions regarding follow-up instructions call the Healthcare Hotline at or For worsening symptoms/changing condition/problems or questions: Non-emergency/urgent: Call the Healthcare Hotline at or Emergency: Go to the closest emergency room or call 911 If you receive the patient satisfaction survey by mail please complete and return and let us know how we are doing. TOBACCO AVOIDANCE Exposure to tobacco either from smoking or from second hand (environmental) smoke or smokeless tobacco (snuff) is damaging to your health. This information is to encourage everyone to avoid tobacco exposure. It is recommended that you: ? If you smoke or use smokeless tobacco, we encourage you to quit. ? If you have already quit smoking, continue your good work! ? If you do not smoke or use smokeless tobacco, do not start. ? Avoid secondhand smoke. Additional Resources You may want to contact these organizations for further information on smoking and how to quit. [place] [employer], http://www.lungusa.org/stop-smoking/ [place] [employer], http://www.cancer.org/Healthy/StayAwayfromTobacco/index [place] [employer], http://www.heart.org/HEARTORG/GettingHealthy/ QuitSmoking/Quit-Smoking_[facility]_001085_SubHomePage.jsp AttachmentsThe following attachments cannot be sent through Care Everywhere.Azithromycin tablets (Tajik)Benzonatate capsules (Tajik)Heart Failure, Congestive (CHF) (Tajik)Heart Failure, Discharge Instructions for ( Tajik)documented in this encounter Progress Notes Layla Bianchi MD - 08/30/2019 9:[address] [facility] Cardiology progress note Date of Service: 08/30/2019 Little Stafford is a 74 years old female hospitalized for acute on chronic HFpEF. Excellent UOP. Less edema. PHYSICAL EXAM Vitals: 08/29/19 1952 08/29/19 2306 08/30/19 0322 08/30/19 0716 BP: 123/56 119/55 120/50 135/66 Pulse: 86 80 77 83 Resp: 18 18 18 18 Temp: 36.5 C (97.7 F) 36.3 C (97.4 F) 36.8 C (98.2 F) 37.1 C ( 98.7 F) TempSrc: Tympanic Tympanic Tympanic Tympanic SpO2: 90% 90% 90% 90% General: alert and oriented x 3 (person, place and date/time); no apparent distress, obese HEENT: normocephalic atraumatic Neck: supple, no lymphadenopathy, no bruits Lungs: clear to auscultation bilaterally Cardio: S1, S2, normal rate, regular; no murmurs, rubs or gallops Abdomen: non-distended : not examined Rectal: not examined Extremities: no clubbing, cyanosis, + mild edema Skin: no rashes Neuro: no focal deficits Medications: I have reviewed the patient's medications; see Medication Reconciliation. Labs: I have reviewed the patient's labs. ASSESSMENT AND PLAN Principal Problem: Acute on chronic heart failure with preserved ejection fraction Active Problems: Essential hypertension COPD (chronic obstructive pulmonary disease) Hyperlipidemia Sleep apnea Bilateral carotid artery disease Volume overload Morbid obesity History of DVT (deep vein thrombosis) Acute on chronic HFpEF--Excellent UOP with IV Bumex. Improved leg edema. ECHO very unremarkable--lowvenous pressure and normal LV filling pressure. Her volume overload is mainly morbid obesity related. Will continue diuresis as tolerated. Daily weight. Low salt diet. Fluid restriction. Continue spironolactone. Will adjust diuresis based on response. NORMA--on C-PAP Morbid obesity--discussed diet and weight loss. She needs to lose a significant amount of weight. H/o DVT--On Eliquis. HTN--Relatively low upon admission. Holding coreg. BP improved. Carotid artery disease--on lipitor. Layla Bianchi MD, FACC, FACP, FASE Wearing Apparel Assembler, Division of Cardiology [facility] Keny Langley MD - 08/29/2019 2:53 PM CST [facility] Medicine Progress Note Name: Little Stafford : 1945 Admit Date: 08/28/2019 PCP on file: Josiane Pacheco ASSESSMENT: Little Stafford is a 74 year old female with PLAN: # Volume overload likely acute diastolic CHF - continue Bumex 2 mg IV BID - Aldactone 25 mg daily - daily weight, low salt diet, strict I/O - hold Coreg for low BP - Cardiology Dr Bianchi following - follow Echo and LE venous doppler # cough for weeks, ? Related to CHF - management of CHF as above - start empiric abx with z-gunnar - respiratory panel # HTN stable - Coreg on hold for low normal BP # Carotid artery stenosis asymptomatic C/W Lipitor 40 mg daily Carotid Doppler shows L ICA 5079 percent #NORMA - CPAP # Dystonia/Parkinson's disease - Requip 1 mg 5 times daily # Insomnia - Trazodone 100 mg at bedtime Dispo: home once improved VTE Prophylaxis: Eliquis Code Status: [facility] was verified during stay Electronically signed by: Keny Urban MD SUBJECTIVE/ 24-HOUR HOSPITAL EVENTS: 08/29: No acute event. Has had cough for weeks, productive with clear sputum. Afebrile. OBJECTIVE: Vital signs range: Temp: [36.2 C (97.2 F)-37.6 C (99.7 F)] 37.6 C (99.7 F) Pulse: [71-93] 93 Resp: [18-20] 20 BP: (97-122)/(44-59) 106/45 Most recent vital signs: BP 106/45 | Pulse 93 | Temp 37.6 C (99.7 F) (Temporal Artery) | Resp 20 | SpO2 90% I/O: I/O last 3 completed shifts: In: 140 [Oral:140] Out: 2150 [Urine:2150] PHYSICAL EXAM: General: alert and oriented x 4 (person, place, date/time and situation); no apparent distress; obese HEENT: pupils equal, round, reactive to light; extraocular movements intact; oropharynx clear; moistmucous membranes Neck: supple, no lymphadenopathy, no bruits, no JVD Lungs: clear to auscultation bilaterally Cardio: S1, S2 normal; no murmurs, rubs or gallops Abdomen: soft; non-tender; non-distended; normoactive bowel sounds Extremities: no clubbing or cyanosis. Bilateral LE edema Skin: no rashes Neuro: cranial nerves II through XII grossly intact; sensation grossly intact; muscle strength 5 outof 5 in all four extremities, no focal deficits, alert and oriented x 3 LABS: I reviewed all the relevant patient's new lab test results Recent Results (from the past 24 hour(s)) BASIC METABOLIC PANEL (NA, K, CL, CO2, GLUCOSE, BUN, CREATININE, CA) Collection Time: 08/28/19 6:15 PM Result Value Ref Range NA 137 135 - 145 mmol/L K 3.6 3.5 - 5.0 mmol/L CL 97 (L) 98 - 108 mmol/L CO2 TOTAL 33 (H) 23 - 31 mmol/L AGAP 7 2 - 16 BUN 33 (H) 7 - 23 mg/dL GLUCOSE 142 (H) 70 - 110 mg/dL CREATININE 0.83 0.50 - 1.04 mg/dL CALCIUM 9.1 8.6 - 10.6 mg/dL eGFR Calculation (Non-) 67.0 mL/min/1.73m2 eGFR Calculation () 81.2 mL/min/1.73m2 HEPATIC FUNCTION PANEL (56245) (ALB,T.PRO,BILI T,BU/BC,ALT,AST,ALK PHOS) Collection Time: 08/28/19 6:15 PM Result Value Ref Range TOTAL BILI 0.6 0.1 - 1.1 mg/dL BILI UNCON 0.4 0.1 - 1.1 mg/dL BILI CONJ 0.0 0.0 - 0.3 mg/dL T PROTEIN 6.6 6.3 - 8.2 g/dL ALBUMIN 3.7 3.5 - 5.0 g/dL ALK PHOS 81 34 - 122 U/L ALTv 18 5 - 35 U/L AST(SGOT) 21 13 - 40 U/L N-TERMINAL PRO-BNP Collection Time: 08/28/19 6:15 PM Result Value Ref Range NT-proBNP 404 <=450 pg/mL LIPID PANEL (81778)(TOTAL CHOLESTEROL, TRIGLYCERIDES, HDL) Collection Time: 08/28/19 6:15 PM Result Value Ref Range CHOL 107 (L) 120 - 200 mg/dL HDL 34 (L) >50 mg/dL HDLC RATIO 3.1 <=4.5 TRIG 96 30 - 170 mg/dL LDL CHOL 54 <=160 mg/dL VLDL 19 5 - 60 mg/dL THYROID STIMULATING HORMONE Collection Time: 08/28/19 6:15 PM Result Value Ref Range TSH 0.48 0.45 - 4.70 mIU/L CBC WITH DIFFERENTIAL Collection Time: 08/28/19 6:15 PM Result Value Ref Range WBC 11.11 (H) 4.30 - 11.10 10*3/L RBC 3.97 3.93 - 5.25 10*6/L HGB 10.7 (L) 11.6 - 15.0 g/dL HCT 34.4 (L) 35.7 - 45.2 % MCV 86.6 80.6 - 95.5 fL MCH 27.0 25.9 - 32.8 pg MCHC 31.1 (L) 31.6 - 35.1 g/dL RDW-SD 48.5 39.0 - 49.9 fL RDW-CV 15.4 12.0 - 15.5 % PLT 275 166 - 358 10*3/L MPV 8.8 (L) 9.5 - 12.9 fL NRBC/100 WBC 0.0 0.0 - 10.0 /100 WBCs NRBC x10^3 <0.01 10*3/L GRAN MAT (NEUT) % 66.1 % IMM GRAN % 0.50 % LYMPH % 20.6 % MONO % 9.5 % EOS % 3.0 % BASO % 0.3 % GRAN MAT x10^3(ANC) 7.35 (H) 1.88 - 7.09 10*3/uL IMM GRAN x10^3 0.06 0.00 - 0.06 10*3/uL LYMPH x10^3 2.29 1.32 - 3.29 10*3/uL MONO x10^3 1.05 (H) 0.33 - 0.92 10*3/uL EOS x10^3 0.33 0.03 - 0.39 10*3/uL BASO x10^3 0.03 0.01 - 0.07 10*3/uL TROPONIN I Collection Time: 08/28/19 6:15 PM Result Value Ref Range TROPONIN I 0.007 <=0.034 ng/mL TROPONIN I Collection Time: 08/29/19 12:42 AM Result Value Ref Range TROPONIN I 0.007 <=0.034 ng/mL Magnesium Serum Collection Time: 08/29/19 12:42 AM Result Value Ref Range MAGNESIUM 1.4 (L) 1.7 - 2.4 mg/dL TROPONIN I Collection Time: 08/29/19 6:12 AM Result Value Ref Range TROPONIN I 0.014 <=0.034 ng/mL IMAGING: I reviewed all the relevant patient's new radiology test results No results found for this visit on 08/28/19. MEDICATIONS: I reviewed the current inpatient medications ordered Current Facility-Administered Medications Medication Dose Route Frequency Last Rate Last Dose [START ON 08/30/2019] azithromycin (ZITHROMAX) tablet 250 mg 250 mg Oral DAILY benzonatate (TESSALON PERLES) capsule 100 mg 100 mg Oral TIDPRN 100 mg at 08/29/19 0835 acetaminophen (TYLENOL) tablet 650 mg 650 mg Oral Q6HPRN apixaban (ELIQUIS) tablet 2.5 mg 2.5 mg Oral BID 2.5 mg at 08/29/19 0834 atorvastatin (LIPITOR) tablet 40 mg 40 mg Oral DAILY 40 mg at 08/29/19 0834 bumetanide (BUMEX) injection 2 mg 2 mg Slow IV Push Q12H 2 mg at 0832 DULoxetine (CYMBALTA) capsule 60 mg 60 mg Oral DAILY 60 mg at 08/29/19 0834 foLIC acid (FOLATE) tablet 1 mg 1 mg Oral BID 1 mg at 08/29/19 0834 gabapentin (NEURONTIN) tablet 600 mg 600 mg Oral BID 600 mg at 08/29/19 0834 HYDROmorphone (DILAUDID) tablet 2 mg 2 mg Oral Q6HPRN 2 mg at 08/29/19 0835 KCL (KLOR-CON M20) tablet 20 mEq 20 mEq Oral BID 20 mEq at 08/29/19 0834 pantoprazole (PROTONIX) EC tablet 40 mg 40 mg Oral DAILY 40 mg at 0834 pramipexole (MIRAPEX) tablet 1.5 mg 1.5 mg Oral TID 1.5 mg at 08/29/19 1442 spironolactone (ALDACTONE) tablet 25 mg 25 mg Oral DAILY 25 mg at 0834 traZODone (DESYREL) tablet 100 mg 100 mg Oral QHS 100 mg at 08/28/192040 Luis Manuel Syed RN - 08/29/2019 12:43 PM CSTCare Management Social Functional Assessment Patient Name: Little Stafford Age: [age] year old Sex: female Previous admit date: N/A Current diagnosis and co-morbidities: heart failure Readmission Questions: Was patient discharged from any acute care hospital within the last 30 days: No Social Functional Assessment: Primary language spoken/preferred: Tajik Mental Status: Alert & Oriented to Person,Place & Time Information given by: Self Patient's support system: Spouse Name and number of support system: Zay Stafford [phone] Primary Welding Teacher: Self MPOA: Same as support system Living Arrangement: Home Address of living arrangement : [address] [place] [address] Persons living in home: Same as support system Barriers to returning home: None Baseline functional status- ambulation: Requires minimal to moderate assistance Functional status-baseline personal care: Requires minimal to moderate assistance Baseline functional status- driving: Dependent Baseline functional status- grocery shopping: Requires minimal to moderate assistance Functional status-baseline housekeeping: Requires minimal to moderate assistance Functional status-baseline meal prep: Requires minimal to moderate assistance Current functional status same as prior: Yes Do you have a PCP?: Yes Name of PCP: [facility] Agency: Yes Name of Home Health Agency: [address] [address] (Ph) (F) [phone] Previous or current Home Health Care Agency: Current Provider Services: No DME Company: No Equipment: None Hemodialysis: No Community resources utilized: None Funding Resources: Medicare Replacement Medicare Replacement name and information: [employer] Prescription coverage plan: Medicare Part D Pharmacy where meds are filled: Other Other pharmacy: [facility] Anticipated services prior to disharge: Continue Medical Eval Expected mode of discharge transportation: Same as support system Additional Recommendations for DC: no Additional info required for discharge planning: Pending medical evaluation Recommended discharge plan: Update/Resume HH orders SFA Complete: Social Functional Assessment complete: Yes Alcohol Use Screening (AUDIT-C) How often do you have a drink containing alcohol?: Never SCORE: 0 Role of Care Management explained. Yes Any issues or concerns with obtaining/affording your medications at home: no. Are you or your support system able to pickling operator medications at discharge: yes. Describe: Luis Manuel Moyer RN, BSN [facility] ADC Skill Training Program Coordinator [phone] erta Jang PT - 08/29/2019 11:29 AM RESEARCH AND DEVELOPMENT ENGINEER 08/29/2019 11:29 AM Physical Therapy Note: PT consult received, patient's chart reviewed in anticipation of evaluation. However the patient isunavailable due to patient is falling asleep while talking to PT and waiting for the US result on both LE . PT to return at a later time as schedule allows to complete evaluation. PT will hold until medically appropriate to participate. Berta Jang,PT [place] License: [id number] Layla Hernandes MD - 08/29/2019 6:[address] [facility] Cardiology progress note Date of Service: 08/29/2019 Little Stafford is a 74 yearw old female hospitalized for acute on chronic HFpEF. Good UOP. Feeling about the same. PHYSICAL EXAM Vitals: 08/28/19 1620 08/28/19 1923 08/28/19 2322 08/29/19 0315 BP: 122/59 112/54 112/51 97/49 Pulse: 71 77 82 82 Resp: 18 18 18 18 Temp: 36.7 C (98.1 F) 36.3 C (97.4 F) 36.2 C (97.2 F) 36.7 C ( 98.1 F) TempSrc: Tympanic Tympanic Tympanic SpO2: 96% 95% 96% 90% General: alert and oriented x 3 (person, place and date/time); no apparent distress, obese HEENT: normocephalic atraumatic Neck: supple, no lymphadenopathy, no bruits, + JVD Lungs: clear to auscultation bilaterally Cardio: S1, S2, normal rate, regular; no murmurs, rubs or gallops Abdomen: non-distended : not examined Rectal: not examined Extremities: no clubbing, cyanosis, + edema Skin: no rashes Neuro: no focal deficits Medications: I have reviewed the patient's medications; see Medication Reconciliation. Labs: I have reviewed the patient's labs. ASSESSMENT AND PLAN Principal Problem: Acute on chronic heart failure with preserved ejection fraction Active Problems: Essential hypertension COPD (chronic obstructive pulmonary disease) Hyperlipidemia Sleep apnea Bilateral carotid artery disease Volume overload Morbid obesity History of DVT (deep vein thrombosis) Acute on chronic HFpEF--Failed OP PO diuretics. Good UOP with IV Bumex. Will continue as tolerated. Daily weight. Low salt diet. Fluid restriction. Continue spironolactone. Will adjust diuresis based on response. NORMA--on C-PAP Morbid obesity--discussed diet and weight loss. H/o DVT--On Eliquis. HTN--Relatively low. Will hold coreg. Carotid artery disease--on lipitor. Layla Bianchi MD, FACC, FACP, RADHA Wearing Apparel Assembler, Division of Cardiology [facility] documented in this encounter Plan of [...] Priority Date/Time Associated Diagnosis Comments BASIC METABOLIC PANEL Routine 08/30/2019 5:15 Results for this (NA, K, CL, CO2, AM RESEARCH AND DEVELOPMENT ENGINEER procedure are in GLUCOSE, BUN, the results CREATININE, CA) section. MAGNESIUM Routine 08/30/2019 5:15 Results for this AM RESEARCH AND DEVELOPMENT ENGINEER procedure are in the results section. RESPIRATORY PANEL BY Routine 08/29/2019 10:51 Results for this PCR AM RESEARCH AND DEVELOPMENT ENGINEER procedure are in the results section. ECHO ROUTINE Routine 08/29/2019 9:46 Hypervolemia, W/DOPPLER COLOR AM RESEARCH AND DEVELOPMENT ENGINEER unspecified hypervolemia type UNILATERAL VENOUS Routine 08/29/2019 9:09 DUPLEX LOWER AM RESEARCH AND DEVELOPMENT ENGINEER EXTREMITY BY VASCULAR LAB TROPONIN I Routine 08/29/2019 6:12 Results for this AM RESEARCH AND DEVELOPMENT ENGINEER procedure are in the results section. TROPONIN I Routine 08/29/2019 12:42 Results for this AM RESEARCH AND DEVELOPMENT ENGINEER procedure are in the results section. MAGNESIUM Routine 08/29/2019 12:42 Results for this AM RESEARCH AND DEVELOPMENT ENGINEER procedure are in the results section. CBC WITH DIFFERENTIAL SLAVA 08/28/2019 6:15 Results for this PM RESEARCH AND DEVELOPMENT ENGINEER procedure are in the results section. N-TERMINAL PRO-BNP Routine 08/28/2019 6:15 Results for this PM RESEARCH AND DEVELOPMENT ENGINEER procedure are in the results section. CBC WITH DIFFERENTIAL SLAVA 08/28/2019 6:15 Results for this PM RESEARCH AND DEVELOPMENT ENGINEER procedure are in the results section. LIPID PANEL Routine 08/28/2019 6:15 Results for this (38584)(TOTAL PM RESEARCH AND DEVELOPMENT ENGINEER procedure are in CHOLESTEROL, the results TRIGLYCERIDES, HDL) section. BASIC METABOLIC PANEL SLAVA 08/28/2019 6:15 Results for this (NA, K, CL, CO2, PM RESEARCH AND DEVELOPMENT ENGINEER procedure are in GLUCOSE, BUN, the results CREATININE, CA) section. HEPATIC FUNCTION SLAVA 08/28/2019 6:15 Results for this PANEL (07213) PM RESEARCH AND DEVELOPMENT ENGINEER procedure are in (ALB,T.PRO,BILI the results T,BU/BC,ALT,AST,ALK section. PHOS) THYROID STIMULATING Routine 08/28/2019 6:15 Results for this HORMONE PM RESEARCH AND DEVELOPMENT ENGINEER procedure are in the results section. TROPONIN I Routine 08/28/2019 6:15 Results for this PM RESEARCH AND DEVELOPMENT ENGINEER procedure are in the results section. CONSENT/REFUSAL FOR Routine 08/28/2019 3:57 DIAGNOSIS AND PM RESEARCH AND DEVELOPMENT ENGINEER TREATMENT ASSIGNMENT OF Routine 08/28/2019 3:51 BENEFITS PM RESEARCH AND DEVELOPMENT ENGINEER documented in this encounter Results MAGNESIUM (08/30/2019 5:15 AM RESEARCH AND DEVELOPMENT ENGINEER) MAGNESIUM 1.7 1.7 - 2.4 mg/dL [facility] Specimen Blood - ARM, RIGHT Performing Organization Address City/State/Zipcode Phone Number [facility] CLIA: [id number], [address] [place] [address] [phone] BASIC METABOLIC PANEL (NA, K, CL, CO2, GLUCOSE, BUN, CREATININE, CA) (2019 5:15 AM RESEARCH AND DEVELOPMENT ENGINEER) NA 140 135 - 145 [facility] mmol/L [facility] K 3.6 3.5 - 5.0 [facility] mmol/L [facility] CL 100 98 - 108 mmol/L [facility] CO2 TOTAL 34 (H) 23 - 31 mmol/L [facility] AGAP 6 2 - 16 [facility] BUN 22 7 - 23 mg/dL [facility] GLUCOSE 110 70 - 110 mg/dL [facility] CREATININE 0.62 0.50 - 1.04 [facility] mg/dL [facility] CALCIUM 9.4 8.6 - 10.6 [facility] mg/dL [facility] eGFR Calculation 93.8 mL/min/1.73m2 [facility] (Non-) [facility] eGFR Calculation 113.7 mL/min/1.73m2 [facility] () [facility] Specimen Blood - ARM, RIGHT Narrative Performed At Association of Glomerular Filtration Rate (GFR) [facility] and Staging of Kidney Disease* + [...] tests). Performing Organization Address City/State/Zipcode Phone Number [facility] CLIA: [id number], [address] [place] [address] RESPIRATORY PANEL BY PCR (08/29/2019 10:51 AM RESEARCH AND DEVELOPMENT ENGINEER) Pathologist [facility] Adenovirus Negative Negative [facility] Coronavirus HKU1 Negative Negative [facility] Coronavirus NL63 Negative Negative [facility] Coronavirus 229E Negative Negative [facility] Coronavirus OC43 Negative Negative [facility] Human Metapneumovirus Negative Negative [facility] Human Negative Negative [facility] Rhinovirus/Enterovirus SERVICES Influenza A Negative Negative [facility] Influenza B Negative Negative [facility] Parainfluenza Virus [address] [facility] Parainfluenza Virus [address] Negative [address] [facility] Parainfluenza Virus 3 Negative [address] [facility] Parainfluenza Virus 4 Negative [address] [facility] Respiratory Syncytial Negative Negative [facility] Virus SERVICES Bordetella parapertussis Negative Negative [facility] Bordetella pertussis Negative Negative [facility] Chlamydia pneumoniae Negative Negative [facility] Mycoplasma pneumoniae Negative Negative [facility] Specimen Swab - NASOPHARYNGEAL SWAB Narrative Performed At Negative: [facility] A negative result does not rule-out infection. This assay does not test for all potential infectious agents. Positive: A positive test result does not necessarily indicate the presence of viable organism. Performing Organization Address City/State/Zipcode Phone Number [facility] CLIA: [id number], [address], [place] [id number] [phone] [facility] TROPONIN I (08/29/2019 6:12 AM RESEARCH AND DEVELOPMENT ENGINEER) Pathologist [facility] TROPONIN I 0.014 <=0.034 ng/mL [facility] Specimen Blood - ARM, RIGHT Narrative Performed At Equal or Less than 0.034 ng/ml---Normal [facility] Note: Cardiac troponin begins to rise 3-4 hours after the onset of ischemia. Repeat in 4-6 hours if the sample was drawn within 3-4 hours of the onset of the symptom and found normal. Between 0.035 and 0.120 ng/mL--- Borderline. Questionable myocardial injury or necrosis Note: Serial measurement may be necessary to confirm or exclude the diagnosis of myocardial injury or necrosis; Clinical correlation (symptoms, EKGs, imaging studies, and others) required; Repeat in 4-6 hours if clinically indicated. Equal or Higher than 0.121 ng/mL---Abnormal. Myocardial Injury or Necrosis Likely Biotin has been reported to cause a negative bias, interpret results relative to patient's use of biotin. Performing Organization Address [facility] Phone Number [facility] CLIA: [id number], [address] [place] [address] TROPONIN I (08/29/2019 12:42 AM RESEARCH AND DEVELOPMENT ENGINEER) Pathologist [facility] TROPONIN I 0.007 <=0.034 ng/mL [facility] Specimen Blood - ARM, RIGHT Narrative Performed At Equal or Less than 0.034 ng/ml---Normal [facility] Note: Cardiac troponin begins to rise 3-4 hours after the onset of ischemia. Repeat in 4-6 hours if the sample was drawn within 3-4 hours of the onset of the symptom and found normal. Between 0.035 and 0.120 ng/mL--- Borderline. Questionable myocardial injury or necrosis Note: Serial measurement may be necessary to confirm or exclude the diagnosis of myocardial injury or necrosis; Clinical correlation (symptoms, EKGs, imaging studies, and others) required; Repeat in 4-6 hours if clinically indicated. Equal or Higher than 0.121 ng/mL---Abnormal. Myocardial Injury or Necrosis Likely Biotin has been reported to cause a negative bias, interpret results relative to patient's use of biotin. Performing Organization Address [facility] Phone Number [facility] CLIA: [id number], [address] [place] [address] [phone] Magnesium Serum (08/29/2019 12:42 AM RESEARCH AND DEVELOPMENT ENGINEER) MAGNESIUM 1.4 (L) 1.7 - 2.4 mg/dL [facility] Specimen Blood - ARM, RIGHT Performing Organization Address [facility] Phone Number [facility] CLIA: [id number], [address] [place] [address] [phone] TROPONIN I (08/28/2019 6:15 PM RESEARCH AND DEVELOPMENT ENGINEER) TROPONIN I 0.007 <=0.034 ng/mL [facility] Specimen Blood - ARM, RIGHT Narrative Performed At Equal or Less than 0.034 ng/ml---Normal [facility] Note: Cardiac troponin begins to rise 3-4 hours after the onset of ischemia. Repeat in 4-6 hours if the sample was drawn within 3-4 hours of the onset of the symptom and found normal. Between 0.035 and 0.120 ng/mL--- Borderline. Questionable myocardial injury or necrosis Note: Serial measurement may be necessary to confirm or exclude the diagnosis of myocardial injury or necrosis; Clinical correlation (symptoms, EKGs, imaging studies, and others) required; Repeat in 4-6 hours if clinically indicated. Equal or Higher than 0.121 ng/mL---Abnormal. Myocardial Injury or Necrosis Likely Biotin has been reported to cause a negative bias, interpret results relative to patient's use of biotin. Performing Organization Address [facility] Phone Number [facility] CLIA: [id number], [address] [place] [address] CBC WITH DIFFERENTIAL (08/28/2019 6:15 PM RESEARCH AND DEVELOPMENT ENGINEER) WBC 11.11 (H) 4.30 - 11.10 [facility] 10*3/L HOSPITAL LAB[facility]ATORY RBC 3.97 3.93 - 5.25 [facility] 10*6/L [facility] HGB 10.7 (L) 11.6 - 15.0 [facility] g/dL [facility] HCT 34.4 (L) 35.7 - 45.2 % [facility] MCV 86.6 80.6 - 95.5 fL [facility] MCH 27.0 25.9 - 32.8 pg [facility] MCHC 31.1 (L) 31.6 - 35.1 [facility] g/dL [facility] RDW-SD 48.5 39.0 - 49.9 fL [facility] RDW-CV 15.4 12.0 - 15.5 % [facility] PLT 275 166 - 358 [facility] 10*3/L [facility] MPV 8.8 (L) 9.5 - 12.9 fL [facility] NRBC/100 WBC 0.0 0.0 - 10.0 /100 [facility] WBCs [facility] NRBC x10^3 <0.01 10*3/L [facility] GRAN MAT (NEUT) % 66.1 % [facility] IMM GRAN % 0.50 % [facility] LYMPH % 20.6 % [facility] MONO % 9.5 % [facility] EOS % 3.0 % [facility] BASO % 0.3 % [facility] GRAN MAT x10^3(ANC) 7.35 (H) 1.88 - 7.09 [facility] 10*3/uL [facility] IMM GRAN x10^3 0.06 0.00 - 0.06 [facility] 10*3/uL [facility] LYMPH x10^3 2.29 1.32 - 3.29 [facility] 10*3/uL [facility] MONO x10^3 1.05 (H) 0.33 - 0.92 [facility] 10*3/uL [facility] EOS x10^3 0.33 0.03 - 0.39 [facility] 10*3/uL [facility] BASO x10^3 0.03 0.01 - 0.07 [facility] 10*3/uL [facility] Specimen Blood - ARM, RIGHT Performing Organization Address City/State/Zipcode Phone Number [facility] CLIA: [id number], [address], [place] [id number] LABORAT[address] THYROID STIMULATING HORMONE (08/28/2019 6:15 PM RESEARCH AND DEVELOPMENT ENGINEER) TSH 0.48 0.45 - 4.70 mIU/L [facility] Specimen Blood - ARM, RIGHT Performing Organization Address City/[facility] Phone Number [facility] CLIA: [id number], [address] [place] [address] [phone] LABORATORY [facility] LIPID PANEL ([id number])(TOTAL CHOLESTEROL, TRIGLYCERIDES, HDL) (08/28/2019 6:15 PM RESEARCH AND DEVELOPMENT ENGINEER) CHOL 107 (L) 120 - 200 mg/dL [facility] HDL 34 (L) >50 mg/dL [facility] HDLC RATIO 3.1 <=4.5 [facility] TRIG 96 30 - 170 mg/dL [facility] LDL CHOL 54 <=160 mg/dL [facility] VLDL 19 5 - 60 mg/dL [facility] Specimen Blood - ARM, RIGHT Performing Organization Address [facility] Phone Number [facility] CLIA: [id number], [address], [place] [phone] N-TERMINAL PRO-BNP (08/28/2019 6:15 PM RESEARCH AND DEVELOPMENT ENGINEER) NT-proBNP 404 <=450 pg/mL [facility] Specimen Blood - ARM, RIGHT Narrative Performed At Biotin has been reported to cause a negative [facility] bias, interpret results relative to patient's use of biotin. Performing Organization Address [facility] Phone Number [facility] CLIA: [id number], [address], [place] [phone] HEPATIC FUNCTION PANEL ([id number]) (ALB,T.PRO,BILI T,BU/BC,ALT,AST,ALK PHOS) (2019 6:15 PM RESEARCH AND DEVELOPMENT ENGINEER) TOTAL BILI 0.6 0.1 - 1.1 mg/dL [facility] BILI UNCON 0.4 0.1 - 1.1 mg/dL [facility] BILI CONJ 0.0 0.0 - 0.3 mg/dL [facility] T PROTEIN 6.6 6.3 - 8.2 g/dL [facility] ALBUMIN 3.7 3.5 - 5.0 g/dL [facility] ALK PHOS 81 34 - 122 U/L [facility] ALTv 18 5 - 35 U/L [facility] AST(SGOT) 21 13 - 40 U/L [facility] Specimen Blood - ARM, RIGHT Performing Organization Address City/State/Zipcode Phone Number [facility] CLIA: [id number], [address] [place] [address] BASIC METABOLIC PANEL (NA, K, CL, CO2, GLUCOSE, BUN, CREATININE, CA) (2019 6:15 PM RESEARCH AND DEVELOPMENT ENGINEER) NA 137 135 - 145 [facility] mmol/L [facility] K 3.6 3.5 - 5.0 [facility] mmol/L [facility] CL 97 (L) 98 - 108 mmol/L [facility] CO2 TOTAL 33 (H) 23 - 31 mmol/L [facility] AGAP 7 2 - 16 [facility] BUN 33 (H) 7 - 23 mg/dL [facility] GLUCOSE 142 (H) 70 - 110 mg/dL [facility] CREATININE 0.83 0.50 - 1.04 [facility] mg/dL [facility] CALCIUM 9.1 8.6 - 10.6 [facility] mg/dL [facility] eGFR Calculation 67.0 mL/min/1.73m2 [facility] ([facility] LABORATORY Burmese) eGFR Calculation 81.2 mL/min/1.73m2 [facility] () [facility] Specimen Blood - ARM, RIGHT Narrative Performed At Association of Glomerular Filtration Rate (GFR) [facility] and Staging of Kidney Disease* + [...] tests). Performing Organization Address City/State/Zipcode Phone Number [facility] CLIA: [id number], [address], [place] [phone] [address] documented in this encounter Visit Diagnoses Diagnosis Acute on chronic heart failure with preserved ejection fraction - Primary Hypervolemia, unspecified hypervolemia type History of DVT (deep vein thrombosis) Personal history of venous thrombosis and embolism Bronchitis Bronchitis, not specified as acute or chronic Bilateral carotid artery disease Unspecified disorders of arteries and arterioles COPD (chronic obstructive pulmonary disease) Chronic airway obstruction, not elsewhere classified Essential hypertension Unspecified essential hypertension Hyperlipidemia Other and unspecified hyperlipidemia Sleep apnea Unspecified sleep apnea Morbid obesity documented in this encounter Administered Medications Medication Order MAR Action Action Date Dose Rate Site apixaban (ELIQUIS) tablet 2.5 mg Given 08/30/2019 8:39 AM RESEARCH AND DEVELOPMENT ENGINEER 2.5 mg 2.5 mg, Oral, BID, First dose on Mon08/28/19 at 2000, Until Discontinued, Routine Given 08/29/2019 8:48 PM RESEARCH AND DEVELOPMENT ENGINEER 2.5 mg Given 08/29/2019 8:34 AM RESEARCH AND DEVELOPMENT ENGINEER 2.5 mg atorvastatin (LIPITOR) tablet 40 mg Given 08/30/2019 8:39 AM RESEARCH AND DEVELOPMENT ENGINEER 40 mg 40 mg, Oral, DAILY, First dose on Mon08/29/19 at 0900, Until Discontinued, Routine Given 08/29/2019 8:34 AM RESEARCH AND DEVELOPMENT ENGINEER 40 mg azithromycin (ZITHROMAX) tablet 250 mg Given 08/30/2019 8:39 AM RESEARCH AND DEVELOPMENT ENGINEER 250 mg 250 mg, Oral, DAILY, 4 doses, First dose on Mon08/30/19 at 0900, Last dose on Mon09/02/19 at 0900, SLAVA, Reason for Anti-Infective: Documented Infection, Documented Infection Site: Respiratory, Duration of Therapy: Other (see Comments) benzonatate (TESSALON PERLES) capsule 100 mg Given 08/29/2019 8:35 AM RESEARCH AND DEVELOPMENT ENGINEER 100 mg 100 mg, Oral, TIDPRN, Starting Mon08/29/19 at 0811, Until Discontinued, Routine, Cough bumetanide (BUMEX) injection 2 mg Given 08/30/2019 8:37 AM RESEARCH AND DEVELOPMENT ENGINEER 2 mg 2 mg, Slow IV Push, Q12H, First dose on Mon08/28/19 at 1730, Until Discontinued, Routine Given 08/29/2019 8:48 PM RESEARCH AND DEVELOPMENT ENGINEER 2 mg Given 08/29/2019 8:32 AM RESEARCH AND DEVELOPMENT ENGINEER 2 mg DULoxetine (CYMBALTA) capsule 60 mg Given 08/30/2019 8:39 AM RESEARCH AND DEVELOPMENT ENGINEER 60 mg 60 mg, Oral, DAILY, First dose on Mon08/29/19 at 0900, Until Discontinued, Routine Given 08/29/2019 8:34 AM RESEARCH AND DEVELOPMENT ENGINEER 60 mg foLIC acid (FOLATE) tablet 1 mg Given 08/30/2019 8:39 AM RESEARCH AND DEVELOPMENT ENGINEER 1 mg 1 mg, Oral, BID, First dose on Mon08/28/19 at 2000, Until Discontinued, Routine Given 08/29/2019 8:48 PM RESEARCH AND DEVELOPMENT ENGINEER 1 mg Given 08/29/2019 8:34 AM RESEARCH AND DEVELOPMENT ENGINEER 1 mg gabapentin (NEURONTIN) tablet 600 mg Given 08/30/2019 8:39 AM RESEARCH AND DEVELOPMENT ENGINEER 600 mg 600 mg, Oral, BID, First dose on Mon08/28/19 at 2000, Until Discontinued, Routine Given 08/29/2019 8:48 PM RESEARCH AND DEVELOPMENT ENGINEER 600 mg Given 08/29/2019 8:34 AM RESEARCH AND DEVELOPMENT ENGINEER 600 mg HYDROmorphone (DILAUDID) tablet 2 mg Given 08/30/2019 2:34 AM RESEARCH AND DEVELOPMENT ENGINEER 2 mg 2 mg, Oral, Q6HPRN, Starting Mon08/28/19 at 1654, Until Discontinued, Routine, Pain (scale 7-10) Given 08/29/2019 8:35 AM RESEARCH AND DEVELOPMENT ENGINEER 2 mg Given 08/29/2019 12:39 AM RESEARCH AND DEVELOPMENT ENGINEER 2 mg KCL (KLOR-CON M20) tablet 20 mEq Given 08/30/2019 8:39 AM RESEARCH AND DEVELOPMENT ENGINEER 20 mEq 20 mEq, Oral, BID, First dose on Mon08/28/19 at 2000, Until Discontinued, Routine Given 08/29/2019 8:48 PM RESEARCH AND DEVELOPMENT ENGINEER 20 mEq Given 08/29/2019 8:34 AM RESEARCH AND DEVELOPMENT ENGINEER 20 mEq pantoprazole (PROTONIX) EC tablet 40 mg Given 08/30/2019 8:39 AM RESEARCH AND DEVELOPMENT ENGINEER 40 mg 40 mg, Oral, DAILY, First dose on Mon08/29/19 at 0900, Until Discontinued, Routine Given 08/29/2019 8:34 AM RESEARCH AND DEVELOPMENT ENGINEER 40 mg pramipexole (MIRAPEX) tablet 1.5 mg Given 08/30/2019 2:05 PM RESEARCH AND DEVELOPMENT ENGINEER 1.5 mg 1.5 mg, Oral, TID, First dose on Mon08/28/19 at 2000, Until Discontinued, archeology faculty member approving Restricted medication: MEGADC Given 08/30/2019 8:39 AM RESEARCH AND DEVELOPMENT ENGINEER 1.5 mg Given 08/29/2019 8:48 PM RESEARCH AND DEVELOPMENT ENGINEER 1.5 mg spironolactone (ALDACTONE) tablet 25 mg Given 08/30/2019 8:39 AM RESEARCH AND DEVELOPMENT ENGINEER 25 mg 25 mg, Oral, DAILY, First dose on Mon08/29/19 at 0900, Until Discontinued, Routine Given 08/29/2019 8:34 AM RESEARCH AND DEVELOPMENT ENGINEER 25 mg traZODone (DESYREL) tablet 100 mg Given 08/29/2019 8:48 PM RESEARCH AND DEVELOPMENT ENGINEER 100 mg 100 mg, Oral, QHS, First dose on Mon08/28/19 at 2100, Until Discontinued, Routine Given 08/28/2019 8:41 PM RESEARCH AND DEVELOPMENT ENGINEER 100 mg Medication Order MAR Action Action Date Dose Rate Site azithromycin (ZITHROMAX) tablet Given 08/29/2019 8:34 AM RESEARCH AND DEVELOPMENT ENGINEER 500 mg 500 mg 500 mg, Oral, ONCE, 1 dose, Maris 08/29/19 at 0915, SLAVA, Reason for Anti-Infective: Empiric Therapy for Suspected Infection, Empiric Therapy Site: Respiratory, Duration of therapy: 7 days carvediloL (COREG) tablet 3.125 mg Given 08/28/2019 5:20 PM RESEARCH AND DEVELOPMENT ENGINEER 3.125 mg 3.125 mg, Oral, BID MEALS, First dose on Mon08/28/19 at 1715, Until Discontinued, Routine magnesium sulfate in water 2 gram/50 mL (4 %) New Bag 08/29/2019 8:32 AM RESEARCH AND DEVELOPMENT ENGINEER 2 g infusion 2 g 2 g, IV Piggyback, ONCE, 1 dose, Maris 08/29/19 at 0845, Routine perflutren lipid microspheres (DEFINITY) Given 08/29/2019 10:30 AM RESEARCH AND DEVELOPMENT ENGINEER 2 mL injection 2 mL 2 mL, IV Push, ONCE, 1 dose, Maris 08/29/19 at 1200, Routine documented in this encounter Insurance Payer Benefit Plan Subscriber ID Effective Phone Address Type / Group Dates EULATNA - NIMA [id number] 2014-Zuleyma DOYLE Medicare Adv MANAGED MEDICARE ADV nt [id number] [place] [address] documented as of this encounter"
--- OUTSIDE RECORDS SUMMARY | 2019-09-29 18:49 | XMS REPORT | Summary of Care ---
:1945 Author Organization [facility] Address [address] [place] [address] Care Team Providers Name Role Phone Tyree Pacheco Primary Care Provider Reason for Visit Reason Comments Follow-up Hospital Follow up Auth/Cert Status Reason Specialty Diagnoses / Procedures Referred By Contact Referred To Contact Phlebotomy Diagnoses Chronic heart failure with preserved ejection fraction Adc Pob Lab Draw Procedures BASIC METABOLIC PANEL (NA, K, CL, CO2, GLUCOSE, BUN, CREATININE, CA) Professional Office Building [address] [place] [address] , [address] [place] [address] Encounter Details Date Type Department Care Team Description 09/09/2019 Office Visit [facility] Layla Schaeffer MD Chronic heart failure with preserved ejection fraction (Primary Dx); Cardiology- [address] Bilateral carotid artery stenosis; [address] [place] [address] DRIVE Essential hypertension; Drive, [address] Hyperlipidemia, unspecified hyperlipidemia type; [place] [address] Morbid obesity; [phone] Obstructive sleep apnea syndrome [phone] Allergies Active Allergy Reactions Severity Noted Date Comments Codeine Nausea and/or Vomiting High 12/12/2016 documented as of this encounter (statuses as of 09/09/2019) Medications Medication Sig Dispensed Refills Start Date [...] 12:01 PM gabapentin (NEURONTIN) Take 1 tablet by 180 tablet 3 11/16/2015 Active 600 mg mouth 2 (two) tabletIndications: times daily. Chronic back pain pantoprazole (PROTONIX) Take 1 tablet by 90 tablet 3 11/16/2015 Active 40 mg EC mouth daily. tabletIndications: Gastroesophageal reflux disease without [...] with meals. DULoxetine 60 mg TAKE ONE CAPSULE 3 01/05/2018 Active capsule BY MOUTH EVERY DAY BREO ELLIPTA 200-25 0 01/25/2018 Active mcg/dose DsDv atorvastatin 40 mg Take 1 tablet by 60 tablet 5 07/11/2019 Active tablet mouth daily. benzonatate 100 mg Take 1 capsule 20 capsule 0 08/30/2019 Active capsuleIndications: by mouth 3 Bronchitis (three) times daily as needed for Cough. KCL 20 mEq tablet Take 1 tablet by 120 tablet 2 09/09/2019 Active mouth 2 (two) times daily. bumetanide 1 mg Take 2 tablets 240 tablet 1 09/09/2019 Active tabletIndications: by mouth every Chronic heart failure morning and with preserved ejection evening. fraction metOLazone 2.5 mg 1 tablet 30 30 tablet 1 09/09/2019 Active tabletIndications: minutes before Chronic heart failure morning bumex on with preserved ejection Monday/ fraction /Monday apixaban 2.5 mg Take 1 tablet by 180 tablet 3 09/09/2019 Active tabletIndications: deep mouth 2 (two) venous thrombosis times daily. Indications: blood clot in a deep vein of the extremities spironolactone 25 mg Take 1 tablet by 60 tablet 3 09/09/2019 Active tablet mouth daily. spironolactone 25 mg Take 1 tablet by 30 tablet 5 04/19/201909/08 Discontinued tabletIndications: mouth daily. You (Reorder) (HFpEF) heart failure will need new with preserved ejection lab work done in fraction September 2019 KCL 20 mEq Take 1 tablet by 60 tablet 2 07/17/201909/08 Discontinued tabletIndications: mouth 2 (two) (Reorder) (HFpEF) heart failure times daily. with preserved ejection fraction bumetanide 1 mg Take 2 tablets 60 tablet 1 08/12/201909/08 Discontinued tabletIndications: by mouth every (Reorder) Chronic heart failure morning and with preserved ejection evening. fraction metOLazone 2.5 mg 1 tablet 30 10 tablet 0 08/12/201909/08 Discontinued tabletIndications: minutes before (Reorder) Chronic heart failure morning bumex on with preserved ejection Monday/ /Monday apixaban 2.5 mg Take 1 tablet by 180 tablet 0 09/06/201909/08 Discontinued tabletIndications: deep mouth 2 (two) (Reorder) venous thrombosis times daily. Indications: blood clot in a deep vein of the extremities documented as of this encounter (statuses as of 09/09/2019) Active Problems Problem Noted Date Volume overload 08/28/2019 Morbid obesity 08/28/2019 History of DVT (deep vein thrombosis) 08/28/2019 Acute on chronic heart failure with preserved ejection fraction 05/29/2017 Bilateral carotid artery disease 02/06/2017 Essential hypertension 06/19/2015 COPD (chronic obstructive pulmonary disease) 06/19/2015 Hyperlipidemia 06/19/2015 Sleep apnea 06/19/2015 Osteoarthritis of both knees 06/19/2015 documented as of this encounter (statuses as of 09/09/2019) Immunizations Name Administration Dates Next Due Influenza [...] Sign Reading Time Taken Comments Blood Pressure 150/77 09/09/2019 4:03 PM CDT Pulse 90 09/09/2019 4:03 PM CDT Temperature - - Respiratory Rate 18 09/09/2019 3:53 PM CDT Oxygen Saturation - - Inhaled Oxygen Concentration - - Weight 110.5 kg (243 lb 9.6 oz) 09/09/2019 3:53 PM CDT Height 157.5 cm (5' 2") 09/09/2019 3:53 PM CDT Body Mass Index 44.56 09/09/2019 3:53 PM CDT documented in this encounter Progress Notes Layla Schaeffer MD - 09/09/2019 3:00 PM CDT CARDIOLOGY CLINIC NOTE 09/09/2019 Reason for Referral/Presenting Complaint: HFpEF PCP: Tyree [...] edema. We increased lasix and added spironolactone. Later on we added metolazone. In 08/2019 she was admitted to [facility] for worsening SOB and edema. Since last visit she has lost 16 lbs.Less SOB. No orthopnea. EKG--08/05/2019--reviewed by me--normal sinus rhythm, low voltage PMH: Past Medical History: Diagnosis Date (HFpEF) heart failure with preserved ejection fraction 05/29/2017 Arthritis Bilateral carotid artery disease 02/06/2017 Hyperlipidemia Hypertension Current Medications: Current Outpatient Medications Medication Sig Dispense Refill apixaban 2.5 mg tablet Take 1 tablet by mouth 2 (two) times daily. Indications: blood clot in a deep vein of the extremities 180 tablet 3 bumetanide 1 mg tablet Take 2 tablets by mouth every morning and evening. 240 tablet 1 KCL 20 mEq tablet Take 1 tablet by mouth 2 (two) times daily. 120 tablet 2 metOLazone 2.5 mg tablet 1 tablet 30 minutes before morning bumex on Monday //Monday 30 tablet 1 spironolactone 25 mg tablet Take 1 tablet by mouth daily. 60 tablet 3 benzonatate 100 mg capsule Take 1 capsule by mouth 3 (three) times daily as needed for Cough. 20capsule 0 atorvastatin 40 mg tablet Take 1 tablet by mouth daily. 60 tablet 5 BREO ELLIPTA 200-25 mcg/dose DsDv DULoxetine 60 [...] file Gets together: Not on file Attends congregation service: Not on file Active member of [...] Concern Not on file Social History Narrative Live with spouse Family History Family History Problem Relation Age of Onset Heart Mother CHF Thyroid Mother Cancer Father NE@55 Hypertension Father Arthritis Father High cholesterol Father Depression Maternal Grandfather NE (myocardial infarction) Brother NE@75 Review of Systems: (-)=Negative,(+)=Positive General: (-) fever, [...] anxiety, (-) depression Physical Examination: BP (!) 150/77 | Pulse 90 | Resp 18 | Ht 5' 2" (1.575 m) | Wt 243 lb 9.6 oz ( 110.5 kg) | BMI 44.56 kg/m Constitutional: alert and oriented x 3 (person, place and date/time); no apparent distress, obese ENT: normocephalic atraumatic, supple, no lymphadenopathy, no bruits, no JVD Lungs: clear to auscultation bilaterally Cardiovascular: S1, S2 normal, regular; no murmurs, rubs or gallops GI: soft; non-tender; + distended; normoactive bowel sounds : not examined Musculoskeletal: Extremities: no clubbing, cyanosis, mild left leg edema Skin: no rashes Neuro: no focal deficits Labs: CBC BMP PT/INR WHITE BLOOD CELL COUNT-Q (Thousand/uL) Date Value 12/14/2015 6.6 WBC (10*3/L) Date Value 09/09/2019 11.48 (H) NA (mmol/L) Date Value 09/09/2019 137 SODIUM-Q (mmol/L) Date Value 05/08/2018 141 No results found for: PT PLATELET COUNT-Q (Thousand/uL) Date Value 12/14/2015 350 PLT (10*3/L) Date Value 09/09/2019 400 (H) K (mmol/L) Date Value 09/09/2019 3.6 POTASSIUM-Q (mmol/L) Date Value 05/08/2018 4.4 No results found for: PTINR HGB (g/dL) Date Value 09/09/2019 12.9 HEMOGLOBIN-Q (g/dL) Date Value 12/14/2015 12.3 BUN (mg/dL) Date Value 09/09/2019 44 (H) UREA NITROGEN (BUN)-Q (mg/dL) Date Value 05/08/2018 14 HCT (%) Date Value 09/09/2019 41.9 HEMATOCRIT-Q (%) Date Value 12/14/2015 37.8 CREATININE (mg/dL) Date Value 09/09/2019 0.96 CREATININE-Q (mg/dL) Date Value 05/08/2018 0.62 LIPID PROFILE GLUCOSE (mg/dL) Date Value 09/09/2019 128 (H) GLUCOSE-Q (mg/dL) Date Value 05/08/2018 101 (H) CHOL (mg/dL) Date Value 08/28/2019 107 (L) CHOLESTEROL, TOTAL-Q (mg/dL) Date Value 05/08/2018 158 TSH LDL CHOL (mg/dL) Date Value 08/28/2019 54 QSY-EBIQPXCOGLY-K (mg/dL (calc)) Date Value 05/08/2018 87 TSH (mIU/L) Date Value 08/28/2019 0.48 TSH, 3RD GENERATION$W/REFLEX TO FT4-Q (mIU/L) Date Value 12/14/2015 1.40 CARDIAC ENZYMES HDL CHOLESTEROL-Q (mg/dL) Date Value 05/08/2018 47 (L) HDL (mg/dL) Date Value 08/28/2019 34 (L) No results found for: CK TRIG (mg/dL) Date Value 08/28/2019 96 TRIGLYCERIDES-Q (mg/dL) Date Value 05/08/2018 141 LFTs No results found for: CKMB AST(SGOT) (U/L) Date Value 08/28/2019 21 AST-Q (U/L) Date Value 12/14/2015 27 TROPONIN I (ng/mL) Date Value 08/29/2019 0.014 ALT-Q (U/L) Date Value 12/14/2015 25 ALTv (U/L) Date Value 08/28/2019 18 No results found for: BNP EKG: Sinus [...] estimate RVSP. Cardiac Cath: 15 years ago [facility] no CAD DSE 2017--No ischemia Carotid duplex-- Bilateral 50-79% Assessment/Plan: ICD-10-CM ICD-9-CM 1. Chronic heart failure with preserved ejection fraction I50.32 428.9 2. Bilateral carotid artery stenosis I65.23 433.10 433.30 3. Essential hypertension I10 401.9 4. Hyperlipidemia, unspecified hyperlipidemia type E78.5 272.4 5. Morbid obesity E66.01 278.01 6. Obstructive sleep apnea syndrome G47.33 327.23 HFpEF--She has lost 16 lbs. Will get BMP to guide therapy. Continue Bumex 2 mg BID. Will continue metolazone 2.5 mg TIW 30 mins before AM bumex. Continue spironolactone 25 mg daily. Discussed low salt diet, diet and weight loss. Left leg DVT--Repeat venous duplex showed chronic DVT. D-dimer still elevated. Will continue Eliquisat 2.5 mg BID. HTN--Her BP has been usually controlled. Will watch for adjustment. Coreg to stopped last admission due to low BP. Carotid artery stenosis--Asymptomatic. Will continue ASA and lipitor. Carotid duplex showed L ICA 50-79%. NORMA--Cannot use C-PAP. RTC 1 month Layla Schaeffer MD, FACC, FACP, RADHA Help Desk Internship, Division of Cardiology [facility] Transitional Care Management: [id number] Visit 09/09/2019 Little Stafford is a 74 year old female that was admitted on 08/28/19 to [facility], ADC MED SURG. She was discharged on 08/30/19 with a discharge disposition of HR- Routine Discharge. Little is here today for a hospital follow-up/transitional care management visit. CC: Follow-up (Hospital Follow up ) HPI Allergies Little is allergic to codeine. Medications Outpatient Medications Prior to Visit Medication Sig Dispense Refill benzonatate 100 mg capsule Take 1 capsule by mouth 3 (three) times daily as needed for Cough. 20capsule 0 atorvastatin 40 mg tablet Take 1 tablet by mouth daily. 60 tablet 5 BREO ELLIPTA 200-25 mcg/dose DsDv DULoxetine 60 [...] MOUTH TWICE A DAY 180 Tab 0 apixaban 2.5 mg tablet Take 1 tablet by mouth 2 (two) times daily. Indications: blood clot in a deep vein of the extremities 180 tablet 0 bumetanide 1 mg tablet Take 2 tablets by mouth every morning and evening. 60 tablet 1 metOLazone 2.5 mg tablet 1 tablet 30 minutes before morning bumex on Monday //Monday 10 tablet 0 KCL 20 mEq tablet Take 1 tablet by mouth 2 (two) times daily. 60 tablet 2 spironolactone 25 mg tablet Take 1 tablet by mouth daily. You will need new lab work done in September 2019 30 tablet 5 naproxen 500 mg tablet Take 1 tablet [...] file Gets together: Not on file Attends congregation service: Not on file Active member of [...] Concern Not on file Social History Narrative Live with spouse Family History Problem Relation Age of Onset Heart Mother CHF Thyroid Mother Cancer Father NE@55 Hypertension Father Arthritis Father High cholesterol Father Depression Maternal Grandfather NE (myocardial infarction) Brother NE@75 Review of Systems Physical Exam Vitals: 09/09/19 1553 09/09/19 1603 BP: (!) 165/75 (!) 150/77 BP Location: Right arm Patient Position: Sitting BP CUFF SIZE: Adult Large Pulse: 90 Resp: 18 Weight: 243 lb 9.6 oz (110.5 kg) Height: 5' 2" (1.575 m) Assessment/Plan See above I certify that the following are true: Discharge records, pending tests and lab results reviewed: Yes Medications reviewed and reconciled: Yes Patient education provided to: patient Follow-up arranged with other healthcare providers needed in patient's care: Yes Established applicable referrals: Yes Complexity of medical decision making is: Medium No linked episodes 10: 05 PM CDTdocumented in this encounter Plan of Treatment Date Type Specialty Care Team Description 10/14/2019 Office Visit Cardiology Layla Schaeffer MD [address] [place] [address] [address] [place], [place] [address] Health Maintenance Due Date Last Done Comments [...] 05/10/2018 documented as of this encounter Results BASIC METABOLIC PANEL (NA, K, CL, CO2, GLUCOSE, BUN, CREATININE, CA) (2019 5:13 PM CDT) NA 137 135 - 145 [facility] mmol/L [facility] K 3.6 3.5 - 5.0 [facility] mmol/L [facility] CL 86 (L) 98 - 108 mmol/L [facility] CO2 TOTAL 38 (H) 23 - 31 mmol/L [facility] AGAP 13 2 - 16 [facility] BUN 44 (H) 7 - 23 mg/dL [facility] GLUCOSE 128 (H) 70 - 110 mg/dL [facility] CREATININE 0.96 0.50 - 1.04 [facility] mg/dL [facility] CALCIUM 10.0 8.6 - 10.6 [facility] mg/dL [facility] eGFR Calculation 56.7 mL/min/1.73m2 [facility] (Non- [facility] Estonian) eGFR Calculation 68.7 mL/min/1.73m2 [facility] Specimen Blood Narrative Performed At Association of Glomerular Filtration Rate (GFR) [facility] and Staging of Kidney Disease* [...] tests). Performing Organization Address City/State/Zipcode Phone Number [facility] CLIA: [id number], [address] [place] [address] [phone] documented in this encounter Visit Diagnoses Diagnosis Chronic heart failure with preserved ejection fraction - Primary Bilateral carotid artery stenosis Occlusion and stenosis of multiple and bilateral precerebral arteries without mention of cerebral infarction Essential hypertension Unspecified essential hypertension Hyperlipidemia, unspecified hyperlipidemia type Morbid obesity Obstructive sleep apnea syndrome Obstructive sleep apnea (adult) (pediatric) documented in this encounter Insurance Payer Benefit Plan Subscriber ID Effective Phone Address Type / Group Dates AETNA - AETNA [id number] 2014-Zuleyma Gamble O VIVEK Medicare Adv MANAGED MEDICARE ADV nt [id number] [place] [address] documented as of this encounter
--- OUTSIDE RECORDS SUMMARY | 2019-09-29 18:49 | XMS REPORT | Summary of Care ---
:1945 Author Organization [facility] Address [address] [place] [address] Care Team Providers Name Role Phone Tyree Pacheco Delmis Primary Care Provider Reason for Visit Reason Comments Refill Request Encounter Details Date Type Department Care Team Description 09/02/2019 Refill [facility] Cardiology- Layla Schaeffer MD Refill Request [address] [facility], [address] [place] [address] [place] [phone] Allergies Active Allergy Reactions Severity Noted Date Comments Codeine Nausea and/or Vomiting High 12/12/2016 documented as of this encounter (statuses as of 09/06/2019) Medications Medication Sig Dispensed Refills Start Date [...] ELLIPTA 200-25 0 01/25/2018 Active mcg/dose DsDv spironolactone 25 mg Take 1 tablet by 30 tablet 5 04/19/2019 Active tabletIndications: mouth daily. You (HFpEF) heart failure will need new with preserved ejection lab work done in fraction September 2019 atorvastatin 40 mg Take 1 tablet by 60 tablet 5 07/11/2019 Active tablet mouth daily. KCL 20 mEq Take 1 tablet by 60 tablet 2 07/17/2019 Active tabletIndications: mouth 2 (two) (HFpEF) heart failure times daily. with preserved ejection fraction bumetanide 1 mg Take 2 tablets 60 tablet 1 08/12/2019 Active tabletIndications: by mouth every Chronic heart failure morning and with preserved ejection evening. fraction metOLazone 2.5 mg 1 tablet 30 10 tablet 0 08/12/2019 Active tabletIndications: minutes before Chronic heart failure morning bumex on with preserved ejection Monday/ fraction /Monday benzonatate 100 mg Take 1 capsule 20 capsule 0 08/30/2019 Active capsuleIndications: by mouth 3 Bronchitis (three) times daily as needed for Cough. apixaban 2.5 mg Take 1 tablet by 180 tablet 0 09/06/2019 Active tabletIndications: deep mouth 2 (two) venous thrombosis times daily. Indications: blood clot in a deep vein of the extremities apixaban 2.5 mg tablet Take 1 tablet by 180 tablet 1 02/27/201909/01 Discontinued mouth 2 (two) /2019 (Reorder) times daily. documented as of this encounter (statuses as of 09/06/2019) Active Problems Problem Noted Date Volume overload 08/28/2019 Morbid obesity 08/28/2019 History of DVT (deep vein thrombosis) 08/28/2019 Acute on chronic heart failure with preserved ejection fraction 05/29/2017 Bilateral carotid artery disease 02/06/2017 Essential hypertension 06/19/2015 COPD (chronic obstructive pulmonary disease) 06/19/2015 Hyperlipidemia 06/19/2015 Sleep apnea 06/19/2015 Osteoarthritis of both knees 06/19/2015 documented as of this encounter (statuses as of 09/06/2019) Immunizations Name Administration Dates Next Due Influenza [...] 09/09/2019 Office Visit Cardiology Layla Schaeffer MD [address] [place] [address] [place] [address] [phone] Name Type Priority Associated Diagnoses Order Schedule CBC W/O DIFF LAB Routine History of DVT (deep vein Expected: 09/06/2019, thrombosis) Expires: 09/05/2020 Health Maintenance Due Date Last Done Comments [...] filedocumented in this encounter Visit Diagnoses Diagnosis History of DVT (deep vein thrombosis) - Primary Personal history of venous thrombosis and embolism documented in this encounter Insurance Payer Benefit Plan Subscriber ID Effective Phone Address Type / Group Dates AETNA - AETNA [id number] 2014-Prese [address] Medicare Adv MANAGED MEDICARE ADV nt [id number] [place] [address] documented as of this encounter
--- OUTSIDE RECORDS SUMMARY | 2019-09-29 18:49 | XMS REPORT | Summary of Care ---
:1945 Author Organization [facility] Address [address] [place] [address] Care Team Providers Name Role Phone PachecoTyree maurice Primary Care Provider Reason for Visit Reason Comments LAB WORK Auth/Cert Status Reason Specialty Diagnoses / Procedures Referred By Contact Referred To Contact Phlebotomy Diagnoses Chronic heart failure with preserved ejection fraction Adc Pob Lab Draw Procedures BASIC METABOLIC PANEL (NA, K, CL, CO2, GLUCOSE, BUN, CREATININE, CA) Professional Office Building [address] [place] [address] , [address] [place] [address] Encounter Details Date Type Department Care Team Description 09/09/2019 T[employer] Leakage Visit [facility] Layla Schaeffer MD [address] [facility] [address] [place] [address] History of DVT (deep vein thrombosis); Professional Office Pob, Adc Lab Main Chronic heart failure with preserved ejection fraction Building Phlebotomy Lab Professional Office Building [address] [place] [address] , [address] [place] [address] Allergies Active Allergy Reactions Severity [...] (NEURONTIN) 600 mg Take 1 tablet by mouth 180 tablet 3 2015 Active tabletIndications: Chronic 2 (two) times daily. back pain pantoprazole (PROTONIX) 40 mg Take 1 tablet by mouth 90 tablet 3 2015 Active EC tabletIndications: daily. Gastroesophageal reflux disease without esophagitis traZODONE 100 mg tablet Take 100 mg by mouth 0 Active at bedtime. HYDROmorphOne 4 mg Take 2 mg by mouth 4 0 Active tabletIndications: Syncope, (four) times daily. unspecified syncope type, Essential hypertension, Obstructive sleep apnea syndrome naproxen 500 mg tablet Take 1 tablet by mouth 180 tablet 0 08/11/2017 Active 2 (two) times daily with meals. DULoxetine 60 mg capsule TAKE ONE CAPSULE BY 3 01/05/2018 Active MOUTH EVERY DAY BREO ELLIPTA 200-25 mcg/dose 0 01/25/2018 Active DsDv atorvastatin 40 mg tablet Take 1 tablet by mouth 60 tablet 5 07/11/2019 Active daily. benzonatate 100 mg Take 1 capsule by 20 capsule 0 08/30/2019 Active capsuleIndications: Bronchitis mouth 3 (three) times daily as needed for Cough. KCL 20 mEq tabletIndications: Take 1 tablet by mouth 120 tablet 2 2019 Active (HFpEF) heart failure with 2 (two) times daily. preserved ejection fraction bumetanide 1 mg Take 2 tablets by 240 tablet 1 09/09/2019 Active tabletIndications: Chronic mouth every morning heart failure with preserved and evening. ejection fraction metOLazone 2.5 mg 1 tablet 30 minutes 30 tablet 1 09/09/2019 Active tabletIndications: Chronic before morning bumex heart failure with preserved on ejection fraction Monday// apixaban 2.5 mg Take 1 tablet by mouth 180 tablet 3 09/09/2019 Active tabletIndications: deep venous 2 (two) times daily. thrombosis Indications: blood clot in a deep vein of the extremities spironolactone 25 mg Take 1 tablet by mouth 60 tablet 3 09/09/2019 Active tabletIndications: (HFpEF) daily. heart failure with preserved ejection fraction documented [...] 10/14/2019 Office Visit Cardiology Layla Schaeffer MD [address] [place] [address] [place] [address] [phone] Name Type Priority Associated Diagnoses Date/Time CBC W/O DIFF LAB Routine History of DVT (deep 09/09/2019 5:13 PM CDT vein thrombosis) BASIC METABOLIC PANEL LAB Routine Chronic heart failure 09/09/2019 5:13 PM CDT (NA, K, CL, CO2, with preserved ejection GLUCOSE, BUN, fraction CREATININE, CA) Health Maintenance Due Date Last Done Comments [...] Diagnosis History of DVT (deep vein thrombosis) Personal history of venous thrombosis and embolism Chronic heart failure with preserved ejection fraction documented in this encounter Insurance Payer Benefit Plan Subscriber ID Effective Phone Address Type / Group Dates AETNA - AETNA [id number] 2014-Zuleyma [address] Medicare Adv MANAGED MEDICARE ADV nt [id number] [place] [address] documented as of this encounter
--- OUTSIDE RECORDS SUMMARY | 2019-09-29 18:50 | XMS REPORT | Summary of Care ---
:1945 Author Organization [facility] Address [address] [place] [address] Care Team Providers Name Role Phone Tyree Pacheco Delmsi Primary Care Provider Reason for Visit Reason Comments Lab Results med adjustment Encounter Details Date Type Department Care Team Description 09/10/2019 Telephone [facility] Layla Schaeffer MD Lab Results (med Cardiology- [address] adjustment) [address] [place] [phone] Allergies Active Allergy Reactions Severity Noted Date Comments Codeine Nausea and/or Vomiting High 12/12/2016 documented as of this encounter (statuses as of 09/13/2019) Medications Medication Sig Dispensed Refills Start Date [...] mEq tablet Take 1 tablet by mouth 120 tablet 2 09/09/2019 Active 2 (two) times daily. bumetanide 1 mg [...] vein of the extremities spironolactone 25 mg tablet Take 1 tablet by mouth 60 tablet 3 09/09/2019 Active daily. documented as of this encounter (statuses as of 09/13/2019) Active Problems Problem Noted Date Volume overload 08/28/2019 Morbid obesity 08/28/2019 History of DVT (deep vein thrombosis) 08/28/2019 Acute on chronic heart failure with preserved ejection fraction 05/29/2017 Bilateral carotid artery disease 02/06/2017 Essential hypertension 06/19/2015 COPD (chronic obstructive pulmonary disease) 06/19/2015 Hyperlipidemia 06/19/2015 Sleep apnea 06/19/2015 Osteoarthritis of both knees 06/19/2015 documented as of this encounter (statuses as of 09/13/2019) Immunizations Name Administration Dates Next Due Influenza [...] 10/14/2019 Office Visit Cardiology Layla Schaeffer MD [address] [place] [address] [place] [address] Health Maintenance Due Date Last Done [...] Type / Group Dates AETNA - AETNA [id number] 2014-Zuleyma [address] Medicare Adv MANAGED MEDICARE ADV nt [id number] [place] [address] documented as of this encounter
--- OUTSIDE RECORDS SUMMARY | 2019-09-29 18:50 | XMS REPORT ---
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 Active Problem Gastro-esophageal reflux disease K21.9 Active without esophagitis Problem nursing home current use of Z79.01 Active anticoagulant Problem Hypokalemia E87.6 Active Problem Bariatric surgery status Z98.84 Active Problem Presence of right artificial knee Z96.651 Active joint Problem Presence of right artificial Z96.611 Active shoulder joint Problem Presence of urogenital implants Z96.0 Active Assessment 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 Assessment History of fall Z91.81 Active Assessment Venous insufficiency I87.2 Active Assessment Body mass index (BMI) 40.0-44.9, Z68.41 Active adult Assessment 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 Assessment Restless leg syndrome G25.81 Active Assessment Cervicalgia M54.2 Active Assessment Stenosis of left carotid artery I65.22 Active Problem Acquired absence of other specified Z90.49 Active parts of digestive tract Problem Acquired absence of both cervix and Z90.710 Active uterus Problem History of falling Z91.81 Active Problem Family history of ischemic heart Z82.49 Active disease and other diseases of the circulatory system Problem Family history of other mental and Z81.8 Active behavioral disorders Problem Personal history of nicotine Z87.891 Active dependence Problem Personal history of other venous Z86.718 Active thrombosis and embolism Problem Difficulty in walking, not R26.2 Active elsewhere classified Problem Mixed incontinence N39.46 Active Problem Family history of malignant Z80.9 Active neoplasm, unspecified Problem Body mass index (BMI) 40.0-44.9, Z68.41 Active adult Assessment Hyperlipidemia, mixed E78.2 Active Assessment Insomnia G47.00 Active Assessment Plantar fasciitis, left M72.2 Active Assessment Obstructive sleep apnea G47.33 Active Assessment Chronic heart failure with I50.32 Active preserved ejection fraction Assessment 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 and stage 1 through stage 4 chronic kidney disease, or chronic kidney disease Assessment Chronic deep vein thrombosis (DVT) I82.502 Active of left lower extremity, unspecified vein Assessment Iron deficiency anemia, unspecified D50.9 Active iron deficiency anemia type Assessment Chronic obstructive pulmonary J44.9 Active disease Assessment Bilateral carotid artery stenosis I65.23 Active Problem CHF (congestive heart failure) I50.9 Active Problem Venous insufficiency I87.2 Active Problem Cervicalgia M54.2 Active Problem Restless leg syndrome G25.81 Active Problem Other muscle spasm M62.838 Active Problem 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 Problem Other specified polyneuropathies G62.89 Active Problem Chronic kidney disease, unspecified N18.9 Active Problem Morbid (severe) obesity due to E66.01 Active excess calories Problem Stenosis of left carotid artery I65.22 Active Problem Chronic heart failure with I50.32 Active preserved ejection fraction Problem Morbid obesity E66.01 Active Problem Chronic obstructive pulmonary J44.9 Active disease Problem 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 Problem Hyperlipidemia, mixed E78.2 Active Problem Accelerated essential hypertension I10 Active Problem 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 Problem Chronic deep vein thrombosis (DVT) I82.502 Active of left lower extremity, unspecified vein Problem Obstructive sleep apnea G47.33 Active Problem Bilateral carotid artery stenosis I65.23 Active Problem Benign essential hypertension I10 Active Problem Other specified postprocedural Z98.890 Active states Problem nursing home current use of inhaled Z79.51 Active steroid Problem Iron deficiency anemia, unspecified D50.9 Active iron deficiency anemia type Problem Spinal stenosis of cervical region M48.02 Active Problem Insomnia G47.00 Active Problem 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 Active Medications Medication Code Code Instructions Start End Status Dosage System Date Date Duloxetine HCl [facility] 46944923746 60 MG Orally Active 1 capsule Twice a day Neurontin [facility] 19149611666 600 MG Orally Active 1 tablet Three times a day Folic Acid [facility] 17851157500 1 MG Orally Active 1 tablet Twice a day Breo Ellipta [facility] 97021286865 200-25 MCG/INH Active TAKE 1 PUFF BY MOUTH EVERY DAY Bumex [facility] 56516432929 2 MG Orally Active 1 tablet twice a day Ferrous Sulfate [facility] 01474247419 324 MG Orally Active 1 tablet Once a day Tanacross 3 [facility] 69[address]74 Active not defined Ropinirole HCl [facility] [address]-19 1 MG Active TAKE 1 TABLET BY MOUTH FIVE TIMES A DAY Methocarbamol ND 22857518400 750 MG Orally Active 1 tablet every 8 hrs PRN Coreg [facility] 93215208016 3.125 MG Orally Active 1 tab twice daily Metolazone [facility] 17837097495 2.5 MG Orally Active 1 tablet Once a day 30 mins before AM bumex Potassium [facility] 77293872827 20 MEQ Orally Active 1 tablet Chloride ER Once a day with food CoQ-10 [facility] 52310-62341 Active not defined Singulair [facility] [address]-52 10 MG Orally Active 1 tablet Once a day Pantoprazole [facility] 76957848252 40 MG Active TAKE 1 Sodium TABLET BY MOUTH EVERY DAY Hydromorphone HCl [facility] 55649336843 4 MG Orally Active 1 tablet every 8 hrs PRN as needed Requip [facility] 38067760835 1 MG Orally 5 Active 1 tablet times a day Aspirin [facility] [address]-94 Active not defined Duloxetine HCl [facility] 20213366483 60 MG Orally Active 1 capsule Twice a day Albuterol Sulfate [facility] 78599136914 108 (90 Base) Active 2 puffs HFA MCG/ACT as needed Inhalation every 6 hrs PRN Shortness of breath, Cough or Wheezing Breo Ellipta [facility] 67032218784 200-25 MCG/INH Active 1 puff Inhalation Once a day Trazodone HCl [facility] 48384060786 150 MG Orally Active 1 tablet Once a day at bedtime Hyzaar [facility] 00789064622 50-12.5 MG Active 1 tablet Orally Once a day Ventolin HFA [facility] 77206572102 108 (90 Base) November 28, Active 2 puffs MCG/ACT 2019 as needed Inhalation every 6 hrs Lipitor ND 17654311719 10 MG Orally Active 1 tablet Once a day Furosemide ND 17033986665 40 MG Orally Active 1 tablet Once a day Spironolactone [facility] 69060075144 25 MG Orally Active 1 tablet Once a day Eliquis 2.5 mg [facility] 44042420374 2.5 mg by mouth Active one twice daily Results No Known Results Summary Purpose eClinicalWorks Submission
--- OUTSIDE RECORDS SUMMARY | 2019-09-29 18:50 | XMS REPORT | Summary of Care ---
:1945 Author Organization [facility] Address [address] [place] [address] Care Team Providers Name Role Phone Tyree Pacheco Primary Care Provider Reason for Visit Reason Comments Follow-up Hospital Follow up Auth/Cert Status Reason Specialty Diagnoses / Procedures Referred By Contact Referred To Contact Phlebotomy Diagnoses Chronic heart failure with preserved ejection fraction Adc Pob Lab Draw Procedures BASIC METABOLIC PANEL (NA, K, CL, CO2, GLUCOSE, BUN, CREATININE, CA) Professional Office Building [address] [place] [address] , [address] [place] [address] Encounter Details Date Type Department Care Team Description 09/09/2019 Office Visit [facility] Layla Schaeffer MD Chronic heart failure with preserved ejection fraction (Primary Dx); Cardiology- [address] Bilateral carotid artery stenosis; [address] [place] [address] DRIVE Essential hypertension; Drive, [address] Hyperlipidemia, unspecified hyperlipidemia type; [place] [address] Morbid obesity; [phone] Obstructive sleep apnea syndrome [phone] Allergies Active Allergy Reactions Severity Noted Date [...] metolazone. In 08/2019 she was admitted to [facility] for worsening SOB and edema. Since last [...] file Gets together: Not on file Attends methodist service: Not on file Active member of [...] Heart Mother CHF Thyroid Mother Cancer Father [email or web address]@55 Hypertension Father Arthritis Father High cholesterol Father Depression Maternal Grandfather ND (myocardial infarction) Brother [email or web address]@75 Review of Systems: (-)=Negative,(+)=Positive General: (-) fever, [...] LDL CHOL (mg/dL) Date Value 08/28/2019 54 [id number] (mg/dL (calc)) Date Value 05/08/2018 87 TSH [...] estimate RVSP. Cardiac Cath: 15 years ago [facility] no CAD DSE 2017--No ischemia Carotid duplex-- [...] month Layla Schaeffer MD, FACC, FACP, RADHA Pile Driver Operator [employer], Division of Cardiology [facility] Transitional Care Management: Toce-vd-Ulyq Visit 09/09/2019 Little Stafford is a 74 year old female that was admitted on 08/28/19 to [facility], ADC MED SURG. She was discharged [...] file Gets together: Not on file Attends methodist service: Not on file Active member of [...] Heart Mother CHF Thyroid Mother Cancer Father [email or web address]@55 Hypertension Father Arthritis Father High cholesterol Father Depression Maternal Grandfather ND (myocardial infarction) Brother [email or web address]@75 Review of Systems Physical Exam Vitals: 09/09/19 [...] 10/14/2019 Office Visit Cardiology Layla Schaeffer MD [address] [place] [address] [address] [place], [place] [id number] Health Maintenance Due Date Last Done Comments [...] PM CDT) NA 137 135 - 145 [facility] mmol/L [facility] K 3.6 3.5 - 5.0 [facility] mmol/L [facility] CL 86 (L) 98 - 108 mmol/L [facility] CO2 TOTAL 38 (H) 23 - 31 mmol/L [facility] AGAP 13 2 - 16 [facility] BUN 44 (H) 7 - 23 mg/dL [facility] GLUCOSE 128 (H) 70 - 110 mg/dL [facility] CREATININE 0.96 0.50 - 1.04 [facility] mg/dL [facility] CALCIUM 10.0 8.6 - 10.6 [facility] mg/dL [facility] eGFR Calculation 56.7 mL/min/1.73m2 [facility] (Non- [facility] Mauritian) eGFR Calculation 68.7 mL/min/1.73m2 [facility] LABORATORY Specimen Blood Narrative Performed At Association of Glomerular Filtration Rate (GFR) [facility] and Staging of Kidney [...] tests). Performing Organization Address City/State/Zipcode Phone Number [facility] CLIA: [id number], [address] [place] [address] documented in this encounter [...] Type / Group Dates AETNA - AETNA [id number] 2014-Zuleyma Gamble O VIVEK Medicare Adv MANAGED MEDICARE ADV nt [id number] [place] [address] documented as of this encounter
--- OUTSIDE RECORDS SUMMARY | 2019-09-29 18:50 | XMS REPORT | Summary of Care ---
:1944 Author Organization [facility] Address [address] [place] [address] Care Team Providers Name Role Phone Tyree Pacheco Delmis Primary Care Provider Reason for Visit Reason Comments Refill Request Encounter Details Date Type Department Care Team Description 08/12/2019 Refill [facility] Cardiology- Layla Schaeffer MD Refill Request [address] [facility], [address] [place] [address] [place] [phone] Allergies Active Allergy Reactions Severity Noted Date [...] 5 07/11/2019 Active tablet by mouth daily. carvedilol 3.125 mg Take 1 tablet 180 tablet 1 01/22/201908/16/ Discontinued tablet by mouth 2 2019 (Reorder) (two) times daily with meals. apixaban 2.5 mg tablet Take 1 tablet 180 tablet 1 02/27/201909/01/ Discontinued by mouth 2 2019 (Reorder) (two) times daily. spironolactone 25 mg Take 1 tablet 30 tablet 5 04/19/201909/08/ Discontinued tabletIndications: by mouth 2019 (Reorder) (HFpEF) heart failure daily. You with preserved ejection will need new fraction lab work done in September 2019 KCL 20 mEq Take 1 tablet 60 tablet 2 07/17/201909/08/ Discontinued tabletIndications: by mouth 2 2019 (Reorder) (HFpEF) heart failure (two) times with preserved ejection daily. fraction bumetanide 1 mg Take 2 60 tablet 1 08/12/201909/08/ Discontinued tabletIndications: tablets by 2019 (Reorder) Chronic heart failure mouth every with preserved ejection morning and fraction evening. metOLazone 2.5 mg 1 tablet 30 10 tablet 0 08/12/201909/08/ Discontinued tabletIndications: minutes 2019 (Reorder) Chronic heart failure before with preserved ejection morning bumex fraction on Monday/ day/Monday carvediloL 3.125 mg Take 1 tablet 180 tablet 0 08/16/201908/30/ Discontinued tablet by mouth 2 2019 (two) times daily with meals. documented as [...] 10/14/2019 Office Visit Cardiology Layla Schaeffer MD [address] [place] [address] [place] [id number] Health Maintenance Due Date Last Done Comments [...] Type / Group Dates AETNA - AETNA [id number] 2014-Prese [address] B[address] Medicare Adv MANAGED MEDICARE ADV nt [id number] [facility] [place] [address] documented as of this encounter
--- OUTSIDE RECORDS SUMMARY | 2019-09-29 18:51 | XMS REPORT ---
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 Active Problem CHF (congestive heart failure) I50.9 Active Problem Venous insufficiency I87.2 Active Problem Gastro-esophageal reflux disease K21.9 Active without esophagitis Problem Cervicalgia M54.2 Active Problem rat exterminator current use of Z79.01 Active anticoagulant Problem Restless leg syndrome G25.81 Active Problem Hypokalemia E87.6 Active Problem Bariatric surgery status Z98.84 Active Problem Presence of right artificial knee Z96.651 Active joint Problem Presence of right artificial Z96.611 Active shoulder joint Problem Other muscle spasm M62.838 Active Problem 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 Problem Presence of urogenital implants Z96.0 Active Problem Other specified polyneuropathies G62.89 Active Problem Chronic kidney disease, unspecified N18.9 Active Problem Morbid (severe) obesity due to E66.01 Active excess calories Problem Stenosis of left carotid artery I65.22 Active Problem Chronic heart failure with I50.32 Active preserved ejection fraction Problem Acquired absence of other specified Z90.49 Active parts of digestive tract Problem Acquired absence of both cervix and Z90.710 Active uterus Problem Chronic obstructive pulmonary J44.9 Active disease Problem Morbid obesity E66.01 Active Problem History of falling Z91.81 Active Problem Hyperlipidemia, mixed E78.2 Active Problem 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 Problem 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 Problem Accelerated essential hypertension I10 Active Problem Obstructive sleep apnea G47.33 Active Problem Chronic deep vein thrombosis (DVT) I82.502 Active of left lower extremity, unspecified vein Problem Benign essential hypertension I10 Active Problem Bilateral carotid artery stenosis I65.23 Active Problem Other specified postprocedural Z98.890 Active states Problem Family history of ischemic heart Z82.49 Active disease and other diseases of the circulatory system Problem retirement current use of inhaled Z79.51 Active steroid Problem Family history of other mental and Z81.8 Active behavioral disorders Problem Iron deficiency anemia, unspecified D50.9 Active iron deficiency anemia type Problem Personal history of nicotine Z87.891 Active dependence Problem Spinal stenosis of cervical region M48.02 Active Problem Personal history of other venous Z86.718 Active thrombosis and embolism Problem Insomnia G47.00 Active Problem Difficulty in walking, not R26.2 Active elsewhere classified Problem 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 Active Problem Mixed incontinence N39.46 Active Problem Family history of malignant Z80.9 Active neoplasm, unspecified Problem Body mass index (BMI) 40.0-44.9, Z68.41 Active adult Medications No Known Medications Results No Known Results Summary Purpose eClinicalWorks Submission
--- OUTSIDE RECORDS SUMMARY | 2019-09-29 18:51 | XMS REPORT | Summary of Care ---
:1944 Author Organization [facility] Address [address] [place] [address] Care Team Providers Name Role Phone Tyree Pacheco Delmis Primary Care Provider Reason for Visit Reason Comments Refill Request Encounter Details Date Type Department Care Team Description 09/17/2019 Refill [facility] Cardiology- Layla Schaeffer MD Refill Request [address] [facility], [address] [place] [address] [place] [phone] Allergies Active Allergy Reactions Severity Noted Date Comments Codeine Nausea and/or Vomiting High 12/12/2016 documented as of this encounter (statuses as of 09/18/2019) Medications Medication Sig Dispensed Refills Start Date [...] 09/09/2019 Active mouth 2 (two) times daily. metOLazone 2.5 mg 1 tablet 30 30 [...] tablet 3 09/09/2019 Active tablet mouth daily. bumetanide 1 mg Take 2 tablets 240 tablet 1 09/18/2019 Active tabletIndications: by mouth every Chronic heart failure morning and with preserved ejection evening. fraction bumetanide 1 mg Take 2 tablets 240 tablet 1 09/09/201909/17 Discontinued tabletIndications: by mouth every (Reorder) Chronic heart failure morning and with preserved ejection evening. fraction documented as of this encounter (statuses as of 09/18/2019) Active Problems Problem Noted Date Volume overload 08/28/2019 Morbid obesity 08/28/2019 History of DVT (deep vein thrombosis) 08/28/2019 Acute on chronic heart failure with preserved ejection fraction 05/29/2017 Bilateral carotid artery disease 02/06/2017 Essential hypertension 06/19/2015 COPD (chronic obstructive pulmonary disease) 06/19/2015 Hyperlipidemia 06/19/2015 Sleep apnea 06/19/2015 Osteoarthritis of both knees 06/19/2015 documented as of this encounter (statuses as of 09/18/2019) Immunizations Name Administration Dates Next Due Influenza [...] 10/14/2019 Office Visit Cardiology Layla Schaeffer MD [address] [place] [address] [place] [address] Health Maintenance Due Date Last Done [...] Type / Group Dates AETNA - AETNA [id number] 2014-e [address] BOX Medicare Adv MANAGED MEDICARE ADV nt [id number] [place] [address] documented as of this encounter
[2019-09-29 19:38] LABS: Absolute Lymphocytes (CBC) 1.8 K/uL (0.7-4.9); Basophils % 0.7 % (0-1.3); Lymphocytes % 20.9 % (15.3-44.8); MPV 6.8 fL (7.6-11.3)
[2019-09-29] MEDS ORDERED: FENTANYL CITR 100 MCG/2 ML ONE (19:47)
[2019-09-29 19:56] LABS: Potassium 3.1 mmol/L (3.5-5.1); Uric Acid 14.5 mg/dL (2.6-6.0)
--- NOTE | 2019-09-29 20:35 | RAD REPORT ---
EXAM DESCRIPTION: USExtrem Venous W Compress Bil09/29/2019 8:21 pm CLINICAL HISTORY: Bilateral leg swelling COMPARISON: 2017 FINDINGS: The common femoral, superficial femoral, popliteal and posterior tibial veins bilaterally are compressible and demonstrate augmentation. Doppler demonstrates good flow. IMPRESSION: No evidence of deep venous thrombosis involving either lower extremity.
--- NOTE | 2019-09-29 20:40 | RAD REPORT ---
EXAM DESCRIPTION: RAD - Foot Left 3 View - 09/29/2019 8:25 pm CLINICAL HISTORY: Left Foot pain FINDINGS: No fracture or dislocation is seen. Osteoporosis. Hallux valgus deformity. Soft tissue swelling
--- NOTE | 2019-09-29 20:41 | RAD REPORT ---
EXAM DESCRIPTION: RAD - Foot Right 3 View - 09/29/2019 8:25 pm CLINICAL HISTORY: Right foot pain FINDINGS: No fracture or dislocation is seen. Osteoporosis. Hallux valgus deformity. Soft tissue swelling Moderate calcaneal spurs
[2019-09-29] MEDS ORDERED: METHYLPREDNISOLONE 40 MG INJ ONE (20:43)
[2019-09-29] MEDS ORDERED: POTASSIUM 25 MEQ EFFERV TAB ONE (20:58)
--- NOTE | 2019-09-29 21:02 | EDPHYS ---
Physician Documentation [facility] Name: Little Stafford Age: 74 yrs Sex: Female : 1945 Arrival Date: 09/29/2019 Time: 18:42 Bed 26 Private MD: Faisal Anna T ED Physician Yariel Cohen HPI: 09/28 19:10 This 74 yrs old Female presents to ER via EMS with complaints of Leg Pain. cp 19:10 The patient presents with pain, that is acute. cp 19:10 The complaints affect the right great toe and left great toe. Context: resulted from an cp unknown cause, the patient is not able to bear weight, must have assistance. 19:10 Onset: The symptoms/episode began/occurred today. cp 19:10 Associated signs and symptoms: Pertinent positives: calf tenderness, Pertinent cp negatives fever, numbness, weakness, injury. Patient reports pain radiates from great toes up to lower legs and c/o muscle spasms. Historical: - Allergies: 18:46 Codeine; ll1 - PMHx: 18:46 CHF; restless leg syndrome; Hyperlipidemia; High Cholesterol; GERD; Chronic pain; DVT ll1 Left leg; Hypertension; Depression; - Immunization history:: Flu vaccine is up to date. - Social history:: Patient/guardian denies using alcohol, street drugs, tobacco products, Smoking status: Patient/guardian denies using. ROS: 19:15 Constitutional: Negative for body aches, chills, fever, poor PO intake. cp 19:15 Eyes: Negative for injury, pain, redness, and discharge. cp 19:15 ENT: Negative for drainage from ear(s), ear pain, sore throat, difficulty swallowing, difficulty handling secretions. 19:15 Cardiovascular: Negative for chest pain, edema, palpitations. 19:15 Respiratory: Negative for cough, shortness of breath, wheezing. 19:15 Abdomen/GI: Negative for abdominal pain, nausea, vomiting, and diarrhea. 19:15 Back: Negative for pain at rest, pain with movement. 19:15 MS/extremity: Positive for pain, of the right foot, left foot, right leg and left leg, Negative for injury or acute deformity, decreased range of motion, paresthesias. 19:15 Neuro: Negative for altered mental status, headache, weakness. 19:15 All other systems are negative. Exam: 19:22 Constitutional: The patient appears in no acute distress, alert, awake, cp non-diaphoretic, non-toxic, well developed, well nourished, obese. 19:22 Head/Face: Normocephalic, atraumatic. cp 19:22 Eyes: Periorbital structures: appear normal, Conjunctiva: normal, no exudate, no injection, Sclera: no appreciated abnormality, Lids and lashes: appear normal, bilaterally. 19:22 ENT: External ear(s): are unremarkable, Nose: is normal, Mouth: Lips: moist, Oral mucosa: moist, Posterior pharynx: is normal, airway is patent, no erythema, no exudate. 19:22 Chest/axilla: Inspection: normal, Palpation: is normal, no crepitus, no tenderness. 19:22 Cardiovascular: Rate: normal, Rhythm: regular, Pulses: Pulses are 2+ in right dorsalis pedis artery and left dorsalis pedis artery. Edema: is not appreciated, JVD: is not appreciated. 19:22 Respiratory: the patient does not display signs of respiratory distress, Respirations: normal, no use of accessory muscles, no retractions, labored breathing, is not present, Breath sounds: are clear throughout, no decreased breath sounds, no wheezing. 19:22 Abdomen/GI: Inspection: abdomen appears normal, Palpation: abdomen is soft and non-tender, in all quadrants. 19:22 Back: pain, is absent. 19:22 Musculoskeletal/extremity: Extremities: grossly normal except: noted in the right great toe and left great toe: pain, swelling, tenderness, mild erythema, There is no evidence of decreased ROM, deformity, Severe pain noted. Joints: All joints are normal except the left first metatarsalphalangeal and right first metatarsalphalangeal joints displays pain at rest, painful range of motion, swelling, tenderness, DVT Exam: pain, that is moderate, of the right leg, of the left leg, tenderness, that is moderate, of the right leg, of the left leg. 19:22 Skin: cellulitis, is not appreciated, no rash present. 19:22 Neuro: Orientation: to person, place \T\ time. Mentation: is normal, Motor: moves all fours, strength is normal. Vital Signs: 18:42 BP 131 / 67; Pulse 84; Resp 19; Temp 98.2; Pulse Ox 97% ; Pain 8/10; ll1 19:25 BP 128 / 48; Pulse 72; Pulse Ox 91% on R/A; vc 20:00 BP 130 / 87; Pulse 81; Resp 20; Pulse Ox 90% ; vc 21:29 BP 153 / 63; Pulse 80; Resp 18; Temp 98.2; Pulse Ox 98% ; jv1 MDM: 18:47 Patient medically screened. jae 19:30 Differential diagnosis: dislocation, closed fracture, contusion, tendonitis, gout, DVT, cp cellulitis. 20:13 ED course: US tech reports negative for DVT bilateral lower extremity. cp 20:36 Test interpretation: by ED physician or midlevel provider: xrays of right foot negative cp for acute fracture and xrays of left foot negative for acute fracture. 21:00 Data reviewed: vital signs, nurses notes, lab test result(s), radiologic studies, plain cp films, ultrasound, and as a result, I will discharge patient. 21:00 Counseling: I had a detailed discussion with the patient and/or guardian regarding: the cp historical points, exam findings, and any diagnostic results supporting the discharge/admit diagnosis, lab results, radiology results, the need for outpatient follow up, primary physician, to return to the emergency department if symptoms worsen or persist or if there are any questions or concerns that arise at home. Response to treatment: the patient's symptoms have markedly improved after treatment, VSS. Pain markedly improved. Labs reviewed and noted elevated uric acid. Suspect gout as cause of pain and will treat with oral prednisone and discharge to home with recommendation to f/u with primary physician. 09/28 19:05 Order name: CBC with Diff; Complete Time: 19:57 cp 09/28 19:57 Interpretation: Normal except: MCV 82.2; RDW 16.4; MPV 6.8. cp 09/28 19:05 Order name: Uric Acid; Complete Time: 19:57 cp 09/28 19:58 Interpretation: Abnormal: URIC 14.5. cp 09/28 19:04 Order name: US Extremity Venous W Compression Fred; Complete Time: 20:45 cp 09/28 20:45 Interpretation: Report reviewed. cp 09/28 19:04 Order name: XRAY Foot RIGHT 3 View; Complete Time: 20:45 cp 09/28 20:45 Interpretation: Report reviewed. cp 09/28 19:04 Order name: XRAY Foot LEFT 3 View; Complete Time: 20:45 cp 09/28 20:45 Interpretation: Reviewed report. cp 09/28 19:05 Order name: BMP; Complete Time: 19:57 cp 09/28 19:58 Interpretation: Normal except: K 3.1; CO2 34; GLUC 127; GFR 79. cp 09/28 19:05 Order name: IV; Complete Time: 19:32 cp Administered Medications: 19:44 Drug: fentaNYL (PF) 25 mcg Route: IVP; Site: right forearm; jv1 20:00 Follow up: Response: No adverse reaction; Pain is decreased jv1 20:52 Drug: SOLU-Medrol 80 mg Route: IVP; Site: right forearm; jv1 21:26 Follow up: Response: No adverse reaction jv1 21:01 Drug: Potassium Effervescent Tablet 50 mEq Route: PO; jv1 21:27 Follow up: Response: No adverse reaction jv1 21:11 Drug: Hydrocodone-Acetaminophen (7.5 mg-325 mg) 2 tabs Route: PO; jv1 21:27 Follow up: Response: No adverse reaction; Pain is decreased jv1 Disposition: 09/29 07:31 Co-signature as Attending Physician, Yariel Cohen MD I agree with the assessment and [facility] plan of care. Disposition: 09/29/19 21:01 Discharged to Home. Impression: Pain in right foot, Pain in left foot. - Condition is Stable. - Discharge Instructions: Gout, Foot Pain. - Prescriptions for Tramadol 50 mg Oral Tablet - take 1 tablet by ORAL route every 8 hours as needed; 12 tablet. Prednisone 20 mg Oral Tablet - take 2 tablet by ORAL route once daily for 5 days; 10 tablet. - Medication Reconciliation Form, Thank You Letter, Antibiotic Education, Prescription Opioid Use form. - Follow up: Private Physician; When: 1 - 2 days; Reason: Recheck today's complaints. - Problem is new. - Symptoms have improved. Signatures: Dispatcher [employer] Yariel Bates MD MD cha Page, Corey, PA PA cp Vicente, Joyce RN RN jv1 Serenity Chavez RN RN ll1 Corrections: (The following items were deleted from the chart) 09/28 21:37 21:01 09/29/2019 21:01 Discharged to Home. Impression: Pain in right foot; Pain in left jv1 foot. Condition is Stable. Forms are Medication Reconciliation Form, Thank You Letter, Antibiotic Education, Prescription Opioid Use. Follow up: Private Physician; When: 1 - 2 days; Reason: Recheck today's complaints. Problem is new. Symptoms have improved. cp
--- NOTE | 2019-09-29 21:02 | ER ---
Nurse's Notes [facility] Name: Little Stafford Age: 74 yrs Sex: Female : 1945 Arrival Date: 09/29/2019 Time: 18:42 Bed 26 Private MD: Faisal Anna T Diagnosis: Pain in right foot;Pain in left foot Presentation: 09/28 18:42 Chief complaint: Patient states: Bilateral leg pain, scheduled to see her MD today, but ll1 couldn't even walk or stand due to the pain. +leg spasms. Coronavirus screen: Patient denies fever greater than 100.4F, cough, shortness of breath, or difficulty breathing. Proceed with normal triage process. Ebola Screen: Patient denies travel to an Ebola-affected area in the 21 days before illness onset. Initial Sepsis Screen: Does the patient meet any 2 criteria? No. Patient's initial sepsis screen is negative. Does the patient have a suspected source of infection? No. Patient's initial sepsis screen is negative. Risk Assessment: Do you want to hurt yourself or someone else? Patient reports no desire to harm self or others. 18:42 Method Of Arrival: EMS: [facility] 1 18:42 Acuity: KELLEY 3 ll1 19:56 Onset of symptoms was September 29, 2019. jv1 Historical: - Allergies: 18:46 Codeine; ll1 - PMHx: 18:46 CHF; restless leg syndrome; Hyperlipidemia; High Cholesterol; GERD; Chronic pain; DVT ll1 Left leg; Hypertension; Depression; - Immunization history:: Flu vaccine is up to date. - Social history:: Patient/guardian denies using alcohol, street drugs, tobacco products, Smoking status: Patient/guardian denies using. Screenin:08 Abuse screen: Denies threats or abuse. Denies injuries from another. Nutritional ph screening: No deficits noted. Tuberculosis screening: No symptoms or risk factors identified. Fall Risk None identified. Assessment: 18:59 General: Appears in no apparent distress. comfortable, obese, well groomed, Behavior is ph calm, cooperative, appropriate for age, Denies fever, feeling ill. Pain: Complains of pain in right leg and left leg. Neuro: Level of Consciousness is awake, alert, obeys commands, Oriented to person, place, time, situation. Cardiovascular: Capillary refill < 3 seconds in bilateral fingers Patient's skin is warm and dry. Respiratory: Airway is patent Respiratory effort is even, unlabored. GI: No signs and/or symptoms were reported involving the gastrointestinal system. Derm: Skin is intact, is healthy with good turgor, Skin is pink, warm \T\ dry. Musculoskeletal: Circulation, motion, and sensation intact. Range of motion: intact in all extremities, Swelling absent. 19:50 General: Appears in no apparent distress. comfortable, obese, well groomed, Behavior is jv1 calm, cooperative, appropriate for age. Pain: Complains of pain in left leg and right leg Pain does not radiate. Neuro: Level of Consciousness is awake, alert, obeys commands, Oriented to person, place, time, situation. Cardiovascular: Capillary refill < 3 seconds in bilateral fingers Patient's skin is warm and dry. Respiratory: Airway is patent Respiratory effort is even, unlabored. GI: No signs and/or symptoms were reported involving the gastrointestinal system. Derm: Skin is intact, is healthy with good turgor, Skin is pink, warm \T\ dry. Derm: legs are discolored, some erythema noted, there is swelling more on the right leg. Musculoskeletal: Circulation, motion, and sensation intact. Range of motion: intact in all extremities, Swelling absent. 20:50 Reassessment: provider in the room with pt. jv1 21:00 Reassessment: Patient appears in no apparent distress at this time. No changes from jv1 previously documented assessment. Patient and/or family updated on plan of care and expected duration. Pain level reassessed. Patient is alert, oriented x 3, equal unlabored respirations, skin warm/dry/pink. Patient states feeling better. Vital Signs: 18:42 BP 131 / 67; Pulse 84; Resp 19; Temp 98.2; Pulse Ox 97% ; Pain 8/10; ll1 19:25 BP 128 / 48; Pulse 72; Pulse Ox 91% on R/A; vc 20:00 BP 130 / 87; Pulse 81; Resp 20; Pulse Ox 90% ; vc 21:29 BP 153 / 63; Pulse 80; Resp 18; Temp 98.2; Pulse Ox 98% ; jv1 ED Course: 18:42 Patient arrived in ED. am2 18:42 Faisal Anna MD is Private Physician. am2 18:42 Page[facility] Yariel, [facility]. cp 18:42 Yariel Cohen MD is Attending Physician. cp 18:44 Triage completed. ll1 18:46 Arm band placed on Patient placed in an exam room, on a stretcher. ll1 18:59 Chelle Blount, RN is Primary Nurse. ph 19:08 Patient has correct armband on for positive identification. Bed in low position. Call ph light in reach. Side rails up X 1. Pulse ox on. NIBP on. 19:30 Initial lab(s) drawn, by me, sent to lab. Inserted saline lock: 20 gauge in right jp3 forearm, using aseptic technique. Blood collected. 19:34 Pillow given. Verbal reassurance given. jp3 19:34 X-ray(s) taken. jp3 19:37 Kimberly Duong, RN is Primary Nurse. vc 20:24 US Extremity Venous W Compression Fred In Process Unspecified. EDMS 20:26 XRAY Foot RIGHT 3 View In Process Unspecified. EDMS 20:26 XRAY Foot LEFT 3 View In Process Unspecified. EDMS 20:48 Kimberly Duong, RN is Primary Nurse. vc 21:27 No provider procedures requiring assistance completed. jv1 21:28 IV discontinued, intact, bleeding controlled, No redness/swelling at site. Pressure jv1 dressing applied. Administered Medications: 19:44 Drug: fentaNYL (PF) 25 mcg Route: IVP; Site: right forearm; jv1 20:00 Follow up: Response: No adverse reaction; Pain is decreased jv1 20:52 Drug: SOLU-Medrol 80 mg Route: IVP; Site: right forearm; jv1 21:26 Follow up: Response: No adverse reaction jv1 21:01 Drug: Potassium Effervescent Tablet 50 mEq Route: PO; jv1 21:27 Follow up: Response: No adverse reaction jv1 21:11 Drug: Hydrocodone-Acetaminophen (7.5 mg-325 mg) 2 tabs Route: PO; jv1 21:27 Follow up: Response: No adverse reaction; Pain is decreased jv1 Outcome: 21:01 Discharge ordered by . cp 21:27 Discharged to home via wheelchair. jv1 21:27 Condition: good 21:27 Discharge instructions given to patient, significant other, Instructed on discharge instructions, follow up and referral plans. medication usage, Demonstrated understanding of instructions, follow-up care, medications, Prescriptions given X 2. 21:37 Patient left the ED. jv1 Signatures: Dispatcher [employer] EDChelle Serra, RN RN Yariel Melchor PA PA cp Moreno, Amanda am2 Juan Pacheco jp3 Vera Ramirez RN RN jv1 Kimberly Duong RN RN Serenity Patel RN RN ll1
[2019-09-29] MEDS ORDERED: HYDROCODONE/APAP 7.5/325 MG TAB ONE (21:15)
[2019-09-29 23:26] VITALS: TEMP 98.2
[2019-09-29 23:30] VITALS: BP 153/63; O2SAT 98
== END 2019-09-29 21:37 | disposition home or self-care (01) ==
LOC: ER 18:41
DX: M79.672 Pain in left foot (principal); M79.671 Pain in right foot; I10 Essential (primary) hypertension; Z88.5 Allergy status to narcotic agent; Z86.718 Personal history of other venous thrombosis and embolism
CPT/HCPCS: 85025; 80048; 36415; 84550; 73630 ×2; 93970; 96375; 96374; 99284; J3010; J2920

== ENCOUNTER 2019-11-01 16:52 | Emergency (ER) | payer OTHER ==
--- OUTSIDE RECORDS SUMMARY | 2019-11-01 16:55 | XMS REPORT ---
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, mixed Accelerated Accelerated Problem Active essential essential hypertensio hypertensio n n Chronic Chronic Problem Active obstructive obstructive pulmonary pulmonary disease disease Insomnia Insomnia Problem Active Venous Venous Problem Active insufficien insufficien cy cy Stage 2 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 Cervicalgia Cervicalgia Problem Active Obstructive Obstructive Problem Active sleep apnea sleep apnea CHF CHF Problem Active (congestive (congestive heart heart failure) failure) Restless Restless Problem Active leg leg syndrome syndrome Seasonal Seasonal Problem Active and and perennial perennial allergic allergic rhinitis rhinitis Iron Iron Problem Active deficiency deficiency anemia, anemia, unspecified unspecified iron iron deficiency deficiency anemia type anemia type Alcohol Alcohol Problem Active dependence dependence in in remission remission Hypertensiv Hypertensiv Problem Active e heart and e heart and chronic chronic kidney kidney disease disease with heart with heart failure and failure and stage 1 stage 1 through through stage 4 stage 4 chronic chronic kidney kidney disease, or disease, or chronic chronic kidney kidney disease disease Spinal Spinal Problem Active stenosis of stenosis of cervical cervical region region Other Other Problem Active specified specified postprocedu postprocedu ral states ral states termite helper FCI Problem Active current use current use of inhaled of inhaled steroid steroid termite helper termite helper Problem Active current use current use of opiate of opiate analgesic analgesic Personal Personal Problem Active history of history of other other venous venous thrombosis thrombosis and and embolism embolism Family Family Problem Active history of history of ischemic ischemic heart heart disease and disease and other other diseases of diseases of the the circulatory circulatory system system Major Major Problem Active depressive depressive disorder disorder Family Family Problem Active history of history of other other mental and mental and behavioral behavioral disorders disorders Body mass Body mass Problem Active index (BMI) index (BMI) 40.0-44.9, 40.0-44.9, adult adult Family Family Problem Active history of history of malignant malignant neoplasm, neoplasm, unspecified unspecified Morbid Morbid Problem Active obesity obesity Other Other Problem Active specified specified polyneuropa polyneuropa madelin madelin Hypokalemia Hypokalemia Problem Active FCI termite helper Problem Active current use current use of of anticoagula anticoagula nt nt Chronic Chronic Problem Active kidney kidney disease, disease, unspecified unspecified Gastro-esop Gastro-esop Problem Active hageal hageal reflux reflux disease disease without without esophagitis esophagitis Mixed Mixed Problem Active incontinenc incontinenc e e Difficulty Difficulty Problem Active in walking, in walking, not not elsewhere elsewhere classified classified Primary Primary Problem Active generalized generalized (osteo)arth (osteo)arth ritis ritis Other Other Problem Active muscle muscle spasm spasm Presence of Presence of Problem Active right right artificial artificial shoulder shoulder joint joint Presence of Presence of Problem Active urogenital urogenital implants implants Bariatric Bariatric Problem Active surgery surgery status status Presence of Presence of Problem Active right right artificial artificial knee joint knee joint Acquired Acquired Problem Active absence of absence of other other specified specified parts of parts of digestive digestive tract tract Personal Personal Problem Active history of history of nicotine nicotine dependence dependence History of History of Problem Active falling falling Acquired Acquired Problem Active absence of absence of both cervix both cervix and uterus and uterus Chronic Chronic Problem Active heart heart failure failure 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 thrombosis thrombosis (DVT) of (DVT) of left lower left lower extremity, extremity, unspecified unspecified vein vein Bilateral Bilateral Problem Active carotid carotid artery artery stenosis stenosis Acute gout Acute gout Problem Active involving involving toe of left toe of left foot, foot, unspecified unspecified cause cause Allergies, Adverse Reactions, Alerts Allergy Allergy Status Severity Reaction(s) Onset Inactive Treating C omments Name Type Date Date Octavio AHN Active SV 2019-04 00:00:0 0 codeine DA Active SV 2018-03 00:00:0 0 codeine DA Active SV 2016-08 00:00:0 0 codeine Adverse Active nausea, Reaction vomiting Medications Ordered Filled Start Stop Current Ordering Indication Dosage Frequency Signature Comments Components Medication Medication Date Date Medication? Clinician (SIG) Name Name Colchicine Colchicine Yes Tyree 2 tab PO x 4-17 Pacheco 1, then 1 00:00: tab 0.6 mg 00 1 hour later x 1 Max 1.8 mg total dose/cours e PredniSONE PredniSONE 2020- Yes Tyree 2 tablet 17 - Pacheco 00:00: 00:00 00 :00 Ventolin Ventolin Yes Tyree 2 puffs as HFA HFA 11-28 Pacheco needed 00:00: 00 [place] 3 Len[place] 3 Yes Tyree not Pacheco defined CoQ-10 CoQ-10 Yes Tyree not Pacheco defined Hydromorpho Hydromorpho Yes Tyree 1 table t ne HCl ne HCl Pacheco as needed Trazodone Trazodone Yes Tyree 1 tablet HCl HCl Pacheco at bedtime Eliquis 2.5 Eliquis 2.5 Yes Tyree one mg mg Pacheco Potassium Potassium Yes Tyree 1 tablet Chloride ER Chloride ER Pacheco with maximo d Spironolact Spironolact Yes Tyree 1 table t one one Pacheco Ferrous Ferrous Yes Tyree 1 tablet Sulfate Sulfate Pacheco Lipitor Lipitor Yes Tyree 1 tablet Pacheco Ropinirole Ropinirole Yes Tyree TAKE 1 HCl HCl Pacheco TABLET BY MOUTH FIVE TIMES A DAY Requip Requip Yes Tyree 1 tablet P[place]co Breo Breo Yes Tyree TAKE 1 Ellipta Ellipta Pacheco PUFF BY MOUTH EVERY DAY Bumex Bumex Yes Tyree 1 tablet Pacheco Singulair Singulair Yes Tyree 1 tablet Pacheco Aspirin Aspirin Yes Tyree not Pacheco defined Albuterol Albuterol Yes Tyree 2 puffs as Sulfate HFA Sulfate HFA Pacheco needed Neurontin Neurontin Yes Tyree 1 tablet Pacheco Duloxetine Duloxetine Yes Tyree 1 capsule HCl HCl Pacheco Methocarbam Methocarbam Yes Tyree 1 table t ol ol Pacheco Folic Acid Folic Acid Yes Tyree 1 tablet Pacheco Duloxetine Duloxetine Yes Tyree 1 capsule HCl HCl Pacheco Pantoprazol Pantoprazol Yes Tyree TAKE 1 e Sodium e Sodium Pacheco TABLET BY MOUTH EVERY DAY Encounters Start End Encounter Admission Attending Care Care Encounter Date/Time Date/Time Type Type Clinicians Facility Department ID 2019-10-29 2019-10-29 [facility] [id number] 11:16:00 11:16:00 [facility] 2019-10-18 2019-10-18 [facility] [id number] 09:30:00 09:30:00 [facility] 2019-10-17 2019-10-17 [facility] [id number] 10:49:00 10:49:00 [facility] 2019-10-04 2019-10-04 [facility] [id number] 10:26:00 10:26:00 [facility] 2019-10-03 2019-10-03 [facility] [id number] 13:45:00 13:45:00 [facility] 2019-10-02 2019-10-02 [facility] [id number] 10:11:00 10:11:00 [facility] 2019-09-20 2019-09-20 [facility] [id number] 15:05:00 15:05:00 [facility] 2019-09-12 2019-09-12 [facility] [id number] 11:15:00 11:15:00 [facility] 2019-08-30 2019-08-30 [facility] [id number] 15:13:00 15:13:00 [facility] 2019-06-07 2019-06-07 [facility] [id number] 15:51:00 15:51:00 [facility] 2019-04-01 2019-04-01 [facility] [id number] 15:30:00 15:30:00 [facility] 2019-01-28 2019-01-28 [facility] [id number] 13:59:00 13:59:00 [facility] 2019-01-12 2019-01-12 [facility] [id number] 10:26:00 10:26:00 [facility] 2018-12-19 2018-12-19 [facility] [id number] 11:30:00 11:30:00 [facility] 2018-11-12 2018-11-12 [facility] [id number] 11:20:00 11:20:00 [facility] 2018-09-26 2018-09-26 [facility] [id number] 15:59:00 15:59:00 [facility] 2018-08-06 2018-08-06 [facility] [id number] 13:45:00 13:45:00 [facility] 2018-04-17 2018-04-17 [facility] [id number] 15:41:00 15:41:00 [facility] 2018-01-31 2018-01-31 [facility] [id number] 13:15:00 13:15:00 [facility] 2018-01-16 2018-01-16 [facility] [id number] 14:00:00 14:00:00 [facility] Results Test Description Test Time Test Comments Text Results Atomic Results Result Comments - XR CHEST 1 V 2019-05-16 16:35:00 Patient Name: RUTHY BEST Unit No: [id number] EXAMS: CPT CODE: [id number] XR CHEST 1 V 77354 IMAGES PROVI DED: One frontal view of the chest is provided. COMPARISON: None FINDINGS: The cardiac silhouette is mildly enlarge d. Pulmonary vasculature is engorge d. No focal consolidation is visualized. No pneumothorax or pleura l effusion. Bilateral shoulder arthropla sties are partially visualized. IMPRESSION: Fi ndings suggestive of CHF/volume ove rload. Electronical ly Signed by Katelyn Serrano on 05/16/2019 at 163 5 Rep orted and signed by: Rick Serrano M.D. CC: Aida Meredith MD; Geovany Olivera MD Technologist: JESSICA CHAND RT(R) Transcribed D/T: (4198) [facility]: RUTHY [facility] [address] [facility] PHYS: ALE. Shivani Meredith Henri : 1945 AGE: 73 SEX: F [place], [place] [address] LOC: Y.306 A PHONE #: [phone] EXAM DATE: 05/15/2019 STATUS: DIS IN FAX #: [phone] R AD #: D/C DT 05/16/2019 P AGE 1 Signed Repor t Patient Name: RUTHY BEST Unit No: [id number] EXAMS: CPT CODE: [id number] XR CHEST 1 V 91282 <Continued> Orig Print D/T: S: 05/16/2019 (5506) [facility] NAME: RUTHY BEST [address] [facility] PHYS: ALESA. - Shivani Meredith Henri : 1945 AGE: 73 SEX: F [place], [place] [address] LOC: Y.306 A PHONE #: [phone] EXAM DATE: 05/15/2019 STATUS: DIS IN FAX #: [phone] R AD #: D/C DT 05/16/2019 P AGE 1 Signed Repor t - XR SHOULDER 1 V LT 2019-05-16 14:01:00 Patient Name : RUTHY BEST Unit No: [id number] EXAMS: CPT CODE: [id number] XR SHOULDER 1 [place] [address] IMAGES PROVID ED: Single AP view of the left shoulder FINDINGS: Postoperat willard changes of left reverse total should er arthoplasty demonstrat ed without evidence of immediate compli cation. No acute fracture. Visual ized lung is clear. IMPRE SSION: Left reverse total shoulde r arthoplasty without immediat e complication. at 1401 Reported and s igned by: Rick Serrano M.D. CC: Lionel Olivera MD Technologist: MIGUELITO FELIZ ( RT.R) Transcribed D/ (2936) Sumaya CORDO[facility] NAME: RUTHY EDWARDS [address] [facility] [address] PHYS: INDERJIT Escobar JarodGeovany Lee : AGE: 73 SEX: [place] [address] LOC: Y.306 A PHONE #: EXAM DATE: 9 STATUS: ADM IN FAX #: RAD #: D/C D T PAGE 1 Signed Report Patient Name: RUTHY BEST Unit No: [id number] EXAMS: CPT CODE: [id number] XR SHOULDER 1 [place] [address] <Continued> Orig Print D/T: S: 05/16/2019 (3069) [facility] NAME: RUTHY BEST [address] [facility] PHYS: INDERJIT OliveraGeovany Lee : 1945 AGE: 73 SEX: F [place], [place] [address] LOC: Y.306 A PHONE #: [phone] EXAM DATE: 05/15/2019 STATUS: ADM IN FAX #: [phone] R AD #: D/C DT P AGE 1 Signed Repor t CBC W/AUTO DIFF 2019-05-16 05:53:00 Test Item Value Reference Range Comments WHITE BLOOD CELL (test code = WBC) 13.6 K/mm3 5.8-11.0 RED BLOOD CELL (test code = RBC) 3.80 M/mm3 4.2-5.4 HEMOGLOBIN (test code = HGB) 10.7 g/dL 12-16 HEMATOCRIT (test code = HCT) 33.8 % 37-47 MEAN CELL VOLUME (test code = MCV) 89 fL 80-98 MEAN CELL HGB (test code = MCH) 28.2 pg 27-34 MEAN CELL HGB CONCENTRATION (test code = MCHC) 31.7 g/dL 3 0.8-34.1 RED CELL DISTRIBUTION WIDTH (test code = RDW) 13.3 % 11 -16 PLT (test code = PLT) 284 K/mm3 130-400 MEAN PLATELET VOLUME (test code = MPV) 9.0 fL 8.9-12.1 NEUTROPHIL % (test code = NT%) 74.9 % 45-70 LYMPHOCYTE % (test code = LY%) 15.4 % 20-40 MONOCYTE % (test code = MO%) 8.6 % 3-10 EOSINOPHIL % (test code = EO%) 0.4 % 1-5 BASOPHIL % (test code = BA%) 0.3 % 0.0-1.1 NEUTROPHIL # (test code = NT#) 10.15 K/mm3 2.00-7.50 LYMPHOCYTE # (test code = LY#) 2.08 K/mm3 1.50-4.00 MONOCYTE # (test code = MO#) 1.17 K/mm3 0.2-0.8 EOSINOPHIL # (test code = EO#) 0.05 K/mm3 0.04-0.4 BASOPHIL # (test code = BA#) 0.04 K/mm3 0.02-0.10 MANUAL DIFF REQUIRED (test code = MDIFF) NO MANUAL DIFF NUCLEATED RED BLOOD CELL (test code = NRBC) 0 % 0-0 SPECIMEN COMMENT: POD #1- CT UP EXTREM W/O CONT [id number] 08:39:00 Patient Name: RUTHY BEST Unit No: [id number] EXAMS: CPT CODE: [id number] [place] EXTREM W/[place] [address] [place] OF THE LEFT SHOULDER WITH SAGITTAL [...] with ACR practice standards and adherence to inspector bullet slugs's recommendations. Degenerative changes are present as noted. The rotator cuff is as described. No loose bodies are seen. AC joint degenerative change is present. Electr onically Signed by Ran Cedeño MD on 04/12/2019 at 0839 Reported and signed by: Ran Cedeño MD CC: Geovany Olivera MD Technologist: Pankaj Goodman,RT(R) CTDI: DLP: Trnscrpt: 04/12/2019 (0839) [facility] NAME: RUTHY BEST [address] [facility] PHYS: INDERJIT OliveraGeovany Lee : 1945 AGE: 73 SEX: F [place] [address] LOC: Y.RAD PHONE #: [phone] EXAM DATE: 04/11/2019 STATUS: DEP CLI FAX #: [phone] RAD #: D/C DT PAGE 1 Signed Report Patient Name: RUTHY BEST Unit No: [id number] EXAMS: CPT CODE: [id number] [place] UP EXTREM W/[place] [address] <Continued> Orig Print D/T: S: 04/12/2019 (0842) [facility] NAME: RUTHY BEST [address] [facility] PHYS: Geovany Bee Jesus : 1945 AGE: 73 SEX: F [place] [address] LOC: Y.RAD PHONE #: [phone] EXAM DATE: 04/11/2019 STATUS: DEP CLI FAX #: [phone] RAD #: D/C DT PAGE 2 Signed ReportCBC W/AUTO [id number] 18:23:00 Test Item Value Reference Range Comments WHITE BLOOD CELL (test code = WBC) 8.0 K/mm3 5.8-11.0 RED BLOOD CELL (test code = RBC) 4.37 M/mm3 4.2-5.4 HEMOGLOBIN (test code = HGB) 12.4 g/dL 12-16 HEMATOCRIT (test code = HCT) 37.7 % 37-47 MEAN CELL VOLUME (test code = MCV) 86 fL 80-98 MEAN CELL HGB (test code = MCH) 28.4 pg 27-34 MEAN CELL HGB CONCENTRATION (test code = MCHC) 32.9 g/dL 3 0.8-34.1 RED CELL DISTRIBUTION WIDTH (test code = RDW) 14.2 % 11 -16 PLT (test code = PLT) 328 K/mm3 130-400 MEAN PLATELET VOLUME (test code = MPV) 9.0 fL 8.9-12.1 NEUTROPHIL % (test code = NT%) 60.4 % 45-70 LYMPHOCYTE % (test code = LY%) 25.7 % 20-40 MONOCYTE % (test code = MO%) 9.4 % 3-10 EOSINOPHIL % (test code = EO%) 3.4 % 1-5 BASOPHIL % (test code = BA%) 0.8 % 0.0-1.1 NEUTROPHIL # (test code = NT#) 4.83 K/mm3 2.00-7.50 LYMPHOCYTE # (test code = LY#) 2.05 K/mm3 1.50-4.00 MONOCYTE # (test code = MO#) 0.75 K/mm3 0.2-0.8 EOSINOPHIL # (test code = EO#) 0.27 K/mm3 0.04-0.4 BASOPHIL # (test code = BA#) 0.06 K/mm3 0.02-0.10 MANUAL DIFF REQUIRED (test code = MDIFF) NO MANUAL DIFF NUCLEATED RED BLOOD CELL (test code = NRBC) 0 % 0-0 SED [id number] 18:23:00 Test Item Value Reference Range Comments SED RATE (test code = SEDW) 25 mm/hr 0-20 COMPREHENSIVE METABOLIC [id number] 18:17:00 Test Item Value Reference Range Comments SODIUM (test code = NA) 140 mmol/L 136-145 POTASSIUM (test code = K) 4.4 mmol/L 3.5-5.1 CHLORIDE (test code = CL) 102.0 mmol/L 98-107 CARBON DIOXIDE (test code = 31.4 mmol/L 21-32 CO2) GLUCOSE (test code = GLU) 97 mg/dL 70-110 BLOOD UREA NITROGEN (test code 27 mg/dL 7-18 = BUN) GLOMERULAR FILTRATION RATE 71.1 >60 Unit of measure: (test code = GFR) mL/min/1.73 m2 Reference Range:Healthy Ad ults >90 mL/min/1. 73 m2 For Chronic Kidney D isease: Stage II Mi ld Decrease in GFR 60-90 Stage III Moderate Decreas e in GFR 30-59 Stage IV Severe Decrease in GFR 15-29 Stage V Kidney Failure <15 CREATININE (test code = CREAT) 0.79 mg/dL 0.55-1.30 TOTAL PROTEIN (test code = 6.7 g/dL 6.4-8.2 PROT) ALBUMIN (test code = ALB) 3.5 g/dL 3.4-5.0 GLOBULIN (test code = GLOB) 3.2 g/dL 2.2-4.2 ALBUMIN/GLOBULIN RATIO (test 1.1 0.7-2.0 code = A/G) CALCIUM (test code = CA) 9.8 mg/dL 8.2-10.1 BILIRUBIN TOTAL (test code = 0.50 mg/dL 0.2-1.00 BILT) SGOT/AST (test code = AST) 23.0 U/L 15-37 SGPT/ALT (test code = ALT) 29.0 U/L 12-78 Pleas e note new normal range. ALKALINE PHOSPHATASE TOTAL 108 U/L 46-116 (test code = ALKP) PROTHROMBIN [id number] 17:59:00 Test Item Value Reference Range Comments PROTHROMBIN TIME PATIENT 14.2 secs 10.1-12.5 (test code = PTP) INTERNATIONAL NORMAL RATIO 1.26 <2.0 RECOM MENDED THERAPEUTIC RANGE (test code = INR) FOR ORAL ANTICOAGULANTTRE ATMENT: CONDITION INRProp hylaxis of venous thrombosi s in 2.0 - 3.0 high -risk medical or surgical agnes entsTreatment of venous thromb osis 2.0 - 3.0Pre vention of embolism 2.0 - 3.0Prevent ion of recurrent emboli sm, or 3.0 - 4.5 agnes ents with mechanical prost hetic intravascular va lves IS PATIENT ON ANTICOAGULANTS ? YLIST ANTICOAGULANT/ANTI PLT MEDICATION : OtherHas Lab been notified if Patient is on Heparin Drip? NOTHROMBOPLASTIN TIME [id number] 17:59:00 Test Item Value Reference Range Comments PTT ACTIVATED (test code = APTT) 31.8 secs 24.9-37.0 IS PATIENT ON ANTICOAGULANTS ? YLIST ANTICOAGULANT/ANTI PLT MEDICATION : OtherHas Lab been notified if Patient is on Heparin Drip? NOCBC W/AUTO DIFF 2019-04-11 17:22:00 Test Item Value Reference Range Comments WHITE BLOOD CELL (test code = WBC) 8.0 K/mm3 5.8-11.0 RED BLOOD CELL (test code = RBC) 4.37 M/mm3 4.2-5.4 HEMOGLOBIN (test code = HGB) 12.4 g/dL 12-16 HEMATOCRIT (test code = HCT) 37.7 % 37-47 MEAN CELL VOLUME (test code = MCV) 86 fL 80-98 MEAN CELL HGB (test code = MCH) 28.4 pg 27-34 MEAN CELL HGB CONCENTRATION (test code = MCHC) 32.9 g/dL 3 0.8-34.1 RED CELL DISTRIBUTION WIDTH (test code = RDW) 14.2 % 11 -16 PLT (test code = PLT) 328 K/mm3 130-400 MEAN PLATELET VOLUME (test code = MPV) 9.0 fL 8.9-12.1 NEUTROPHIL % (test code = NT%) 60.4 % 45-70 LYMPHOCYTE % (test code = LY%) 25.7 % 20-40 MONOCYTE % (test code = MO%) 9.4 % 3-10 EOSINOPHIL % (test code = EO%) 3.4 % 1-5 BASOPHIL % (test code = BA%) 0.8 % 0.0-1.1 NEUTROPHIL # (test code = NT#) 4.83 K/mm3 2.00-7.50 LYMPHOCYTE # (test code = LY#) 2.05 K/mm3 1.50-4.00 MONOCYTE # (test code = MO#) 0.75 K/mm3 0.2-0.8 EOSINOPHIL # (test code = EO#) 0.27 K/mm3 0.04-0.4 BASOPHIL # (test code = BA#) 0.06 K/mm3 0.02-0.10 MANUAL DIFF REQUIRED (test code = MDIFF) NO MANUAL DIFF NUCLEATED RED BLOOD CELL (test code = NRBC) 0 % 0-0 SED [id number] 17:22:00 Test Item Value Reference Range Comments SED RATE (test code = SEDW) mm/hr 0-20
--- OUTSIDE RECORDS SUMMARY | 2019-11-01 16:56 | XMS REPORT ---
:1945 Author Organization [employer] Care Team Providers Name Role Phone Tyree Pacheco Provider Role Unavailable Allergies No Known Allergies Problems Problem Type Condition Code Onset Dates Condition Statu s Problem Iron deficiency anemia, unspecified D50.9 Active iron deficiency anemia type Problem 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 Active Problem Bariatric surgery status Z98.84 Act willard Problem 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.21 Active [...] history of nicotine Z87.891 Active dependence Problem terminal carman current use of Z79.01 Act willard anticoagulant Problem 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 and stage 1 through stage 4 chronic kidney disease, or chronic kidney disease Problem Hypokalemia E87.6 Active Problem 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
--- OUTSIDE RECORDS SUMMARY | 2019-11-01 16:56 | XMS REPORT ---
:1945 Author Organization e[employer]Works Care Team Providers Name Role Phone Junior Tyree Provider Role Unavailable Allergies, Adverse Reactions, Alerts Substance Reaction Event Type codeine nausea, vomiting Drug Allergy Problems Problem Type Condition Code Onset Dates Condition Statu s Problem Obstructive sleep apnea G47.33 Acti ve Problem Benign essential hypertension I10 Active Problem [...] Other specified postprocedural Z98.890 Active states Problem termite renewal inspector current use of inhaled Z79.51 Active steroid Problem assisted current use of opiate Z79.891 Active analgesic Problem Major depressive disorder F32.9 Ac tive Problem Hypokalemia E87.6 Active Problem assisted current use of Z79.01 Act willard anticoagulant Problem Gastro-esophageal reflux disease K21.9 Active without esophagitis Problem Presence of right artificial Z96.611 Active shoulder joint Problem Presence of urogenital implants Z96.0 Active Problem Bariatric surgery status Z98.84 Act willard Problem Presence of right artificial knee Z96.651 [...] I87.2 Active Assessment Obstructive sleep apnea G47.33 Acti ve Assessment Plantar fasciitis, left M72.2 Acti ve Assessment Insomnia G47.00 Active Assessment Hyperlipidemia, mixed [...] not R26.2 A ctive elsewhere classified Problem 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 [...] Status Dosage System Date Date Breo Ellipta [facility] 92473869512 200-25 MCG/INH Active 1 puff Inhalation Once a day Eliquis 2.5 mg [facility] 36256722857 2.5 mg by mouth Activ e one twice daily Lipitor [facility] 03478027020 10 MG Orally Active 1 table t Once a day Singulair [facility] 33217082697 10 MG Orally Active 2 tab lets Once a day Pantoprazole [facility] 35655490987 40 MG Orally Active 1 tablet Sodium Once a day Coreg [facility] 32063845522 3.125 MG Orally Active 1 ta b twice daily Requip [facility] 30854228817 1 MG Orally 5 Active 1 tabl et times a day Spironolactone [facility] 07878452198 25 MG Orally Active 1 tablet Once a day Pantoprazole [facility] 43315074580 40 MG Orally Active 1 tablet Sodium Once a day Ferrous Sulfate [facility] 36233169214 324 MG Orally Active 1 tablet Once a day Hyzaar [facility] 91694395433 50-12.5 MG Active 1 tablet Orally Once a day Ventolin HFA [facility] 11297906045 108 (90 Base) November 28, Active 2 puffs MCG/ACT 2019 as needed Inhalation every 6 hrs Furosemide ND 24371211546 40 MG Orally Active 1 ta blet Once a day Duloxetine HCl [facility] 17410216827 60 MG Orally Active 1 capsule Twice a day Furosemide ND 72425983096 20 MG Orally Active 1 ta blet Once a day Albuterol Sulfate [facility] 92515579990 108 (90 Base) Acti ve 2 puffs HFA MCG/ACT as needed Inhalation every 6 hrs PRN Shortness of breath, Cough or Wheezing Trazodone HCl [facility] 88142190531 150 MG Orally Active 1 tablet Once a day at bedtime Hyzaar [facility] 10534665643 50-12.5 MG Active 1 tablet Orally Once a day Requip [facility] 26781396726 1 MG Orally 5 Active 1 tabl et times a day Aspirin [facility] [address]-95 Active not defined CoQ-10 [facility] [address] Active not defined Duloxetine HCl [facility] 27250618442 60 MG Orally Active 1 capsule Twice a day [place] 3 [facility] [address] Active not defined Neurontin [facility] 09135323148 600 MG Orally Active 1 ta blet Three times a day Zyrtec Allergy [facility] 08759843893 10 MG Orally Active 1 tablet Once a day Potassium [facility] 32517001520 20 MEQ Orally Active 1 ta blet Chloride ER Once a day with food Methocarbamol [facility] 61903900643 750 MG Orally Active 1 tablet every 8 hrs PRN Hydromorphone HCl [facility] 16018810251 4 MG Orally Active 1 tablet every 8 hrs PRN as neede d Folic Acid [facility] 71692836221 1 MG Orally Active 1 tab let Twice a day Results No Known Results Summary Purpose eClinicalWorks Submission
--- OUTSIDE RECORDS SUMMARY | 2019-11-01 17:00 | XMS REPORT ---
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 and stage 1 through stage 4 chronic kidney disease, or chronic kidney disease Problem Hypokalemia E87.6 Active Problem Spinal stenosis of cervical region M48.02 Active Problem Other specified postprocedural Z98.890 Active states Problem halfway current use of inhaled Z79.51 Active steroid Problem halfway current use of opiate Z79.891 Active analgesic Problem Major depressive disorder F32.9 Ac tive Problem Bariatric surgery status Z98.84 Act willard [...] vein Assessment Chronic heart failure with I50.32 A ctive preserved ejection fraction Problem Insomnia G47.00 Active Problem CHF (congestive heart failure) I50.9 Active Problem Difficulty in walking, not R26.2 A ctive elsewhere classified Assessment Stenosis of left carotid artery I65.22 Active Problem Mixed incontinence N39.46 Active Problem Other muscle spasm M62.838 Active Problem Other specified polyneuropathies G62.89 Active Problem 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 Problem Stenosis of left carotid artery I65.22 Active Problem Chronic heart failure with I50.32 A ctive preserved ejection fraction Problem Morbid obesity E66.01 Active Problem Obstructive sleep apnea G47.33 Acti ve Problem Chronic kidney disease, unspecified N18.9 Active [...] End Status Dosage System Date Date Neurontin [facility] 57843871651 600 MG Orally Active 1 ta blet Three times a day Duloxetine HCl [facility] 58365996749 60 MG Orally Active 1 capsule Twice a day Singulair [facility] 50666842515 10 MG Orally Active 2 tab lets Once a day Spironolactone [facility] 91642276853 25 MG Orally Active 1 tablet Once a day Trazodone HCl [facility] 67741405199 150 MG Orally Active 1 tablet Once a day at bedtime Bumex [facility] 33209162116 2 MG Orally Active 1 tablet twice a day Ropinirole HCl [facility] [address]-84 1 MG Active ANDREY E 1 TABLET BY MOUTH FIVE TIMES A DAY Hydromorphone HCl [facility] 33108882040 4 MG Orally Active 1 tablet every 8 hrs PRN as neede d Albuterol Sulfate [facility] 13166227211 108 (90 Base) Acti ve 2 puffs HFA MCG/ACT as needed Inhalation every 6 hrs PRN Shortness of breath, Cough or Wheezing Hyzaar [facility] 49888499023 50-12.5 MG Active 1 tablet Orally Once a day Furosemide ND 26752668648 40 MG Orally Active 1 ta blet Once a day Requip [facility] 73842199495 1 MG Orally 5 Active 1 tabl et times a day Metolazone [facility] 66829902229 2.5 MG Orally Active 1 t ablet Once a day 30 mins before AM bumex Duloxetine HCl [facility] [address]-18 60 MG Active ANDREY E 1 CAPSULE BY MOUTH TWICE A DAY Zyrtec Allergy [facility] 62034207283 10 MG Orally Active 1 tablet Once a day Methocarbamol [facility] 98758510675 750 MG Orally Active 1 tablet every 8 hrs PRN Eliquis 2.5 mg [facility] 89089310392 2.5 mg by mouth Activ e one twice daily Hyzaar [facility] 61603425096 50-12.5 MG Active 1 tablet Orally Once a day Coreg [facility] 51784291152 3.125 MG Orally Active 1 ta b twice daily Pantoprazole [facility] 01346843837 40 MG Active TAKE 1 Sodium TABLET BY MOUTH EVERY DAY Lipitor [facility] 88753022025 10 MG Orally Active 1 table t Once a day Furosemide [facility] 74192934470 20 MG Orally Active 1 ta blet Once a day [place] 3 [facility] [address] Active not defined Ferrous Sulfate [facility] 79584926768 324 MG Orally Active 1 tablet Once a day CoQ-10 [facility] [address] Active not defined Folic Acid [facility] 87583757583 1 MG Orally Active 1 tab let Twice a day Aspirin [facility] [address]-24 Active not defined Breo Ellipta [facility] 62554736323 200-25 MCG/INH Active TAKE 1 PUFF BY MOUTH EVERY DAY Potassium [facility] 67807913628 20 MEQ Orally Active 1 ta blet Chloride ER Once a day with food Ventolin HFA [facility] 44325067966 108 (90 Base) November 28, Active 2 puffs MCG/ACT 2019 as needed Inhalation every 6 hrs Duloxetine HCl [facility] 11706686126 60 MG Orally Active 1 capsule Twice a day Results No Known Results Summary Purpose eClinicalWorks Submission
--- OUTSIDE RECORDS SUMMARY | 2019-11-01 17:02 | XMS REPORT ---
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 and stage 1 through stage 4 chronic kidney disease, or chronic kidney disease Problem 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.21 Active Problem Gastro-esophageal reflux disease K21.9 Active without esophagitis Problem [facility] current use of Z79.01 Act willard anticoagulant Problem Hypokalemia E87.6 Active Problem Bariatric surgery status Z98.84 Act [...] embolism Problem Difficulty in walking, not R26.2 A ctive elsewhere classified Problem Mixed incontinence N39.46 Active Problem Family history of malignant Z80.9 Active neoplasm, unspecified Problem Body mass index (BMI) 40.0-44.9, Z68.41 Active adult Assessment Hyperlipidemia, mixed E78.2 Active Assessment Insomnia G47.00 Active Assessment Plantar fasciitis, left M72.2 Acti ve Assessment Obstructive sleep apnea G47.33 Acti ve Assessment Chronic heart failure with I50.32 A ctive preserved ejection fraction Assessment Hypertensive heart and [...] unspecified vein Problem Obstructive sleep apnea G47.33 Acti ve Problem Bilateral carotid artery stenosis I65.23 Active Problem Benign essential hypertension I10 Active Problem Other specified postprocedural Z98.890 Active states 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.51 Active 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 Problem Iron deficiency anemia, unspecified D50.9 Active iron deficiency anemia type Problem Spinal stenosis of cervical region M48.02 Active Problem Insomnia G47.00 Active Problem 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 Active Medications Medication Code Code Instructions Start End Status Dosage System Date Date Duloxetine HCl [facility] 97034736564 60 MG Orally Active 1 capsule Twice a day Neurontin [facility] 83713107774 600 MG Orally Active 1 ta blet Three times a day Folic Acid [facility] 65544060891 1 MG Orally Active 1 tab let Twice a day Breo Ellipta [facility] 94012902314 200-25 MCG/INH Active TAKE 1 PUFF BY MOUTH EVERY DAY Bumex ND 29088401660 2 MG Orally Active 1 tablet twice a day Ferrous Sulfate ND 27842537437 324 MG Orally Active 1 tablet Once a day [place] 3 [facility] [address] Active not defined Ropinirole HCl [facility] [address]-60 1 MG Active ANDREY E 1 TABLET BY MOUTH FIVE TIMES A DAY Methocarbamol ND 08795024911 750 MG Orally Active 1 tablet every 8 hrs PRN Coreg ND 08330392454 3.125 MG Orally Active 1 ta b twice daily Metolazone ND 68158669058 2.5 MG Orally Active 1 t ablet Once a day 30 mins before AM bumex Potassium ND 09537895300 20 MEQ Orally Active 1 ta blet Chloride ER Once a day with food CoQ-10 [facility] [address]71 Active not defined Singulair [facility] [address]-87 10 MG Orally Active 1 t ablet Once a day Pantoprazole ND 14741040309 40 MG Active TAKE 1 Sodium TABLET BY MOUTH EVERY DAY Hydromorphone HCl [facility] 60521257917 4 MG Orally Active 1 tablet every 8 hrs PRN as neede d Requip [facility] 67239712587 1 MG Orally 5 Active 1 tabl et times a day Aspirin [facility] [address]-60 Active not defined Duloxetine HCl [facility] 73230502032 60 MG Orally Active 1 capsule Twice a day Albuterol Sulfate [facility] 10569571868 108 (90 Base) Acti ve 2 puffs HFA MCG/ACT as needed Inhalation every 6 hrs PRN Shortness of breath, Cough or Wheezing Breo Ellipta ND 80190508086 200-25 MCG/INH Active 1 puff Inhalation Once a day Trazodone HCl [facility] 48296748314 150 MG Orally Active 1 tablet Once a day at bedtime Hyzaar [facility] 93120697537 50-12.5 MG Active 1 tablet Orally Once a day Ventolin HFA [facility] 12370924099 108 (90 Base) November 28, Active 2 puffs MCG/ACT 2019 as needed Inhalation every 6 hrs Lipitor [facility] 96174987937 10 MG Orally Active 1 table t Once a day Furosemide [facility] 96029736260 40 MG Orally Active 1 ta blet Once a day Spironolactone [facility] 49226541780 25 MG Orally Active 1 tablet Once a day Eliquis 2.5 mg [facility] 84735020275 2.5 mg by mouth Activ e one twice daily Results No Known Results Summary Purpose eClinicalWorks Submission
--- OUTSIDE RECORDS SUMMARY | 2019-11-01 17:04 | XMS REPORT ---
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 Active analgesic [...] without esophagitis Problem Cervicalgia M54.2 Active Problem group home current use of Z79.01 Act willard anticoagulant Problem Restless leg syndrome G25.81 Active [...] I50.32 A ctive preserved ejection fraction Problem Acquired absence of [...] I10 Active Problem Obstructive sleep apnea G47.33 Acti ve Problem Chronic deep vein thrombosis (DVT) I82.502 Active of left lower extremity, unspecified vein Problem Benign essential hypertension I10 Active Problem Bilateral carotid artery stenosis I65.23 Active Problem Other specified postprocedural Z98.890 Active states Problem Family history of ischemic heart Z82.49 Active disease and other diseases of the circulatory system 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
--- OUTSIDE RECORDS SUMMARY | 2019-11-01 17:04 | XMS REPORT ---
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 and stage 1 through stage 4 chronic kidney disease, or chronic kidney disease Problem 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.21 Active Problem Gastro-esophageal reflux disease K21.9 Active without esophagitis Problem halfway current use of Z79.01 Act willard anticoagulant Problem Hypokalemia E87.6 Active Problem Bariatric surgery status Z98.84 Act willard Problem Presence of right artificial knee Z96.651 Active joint Problem Presence of right artificial Z96.611 Active shoulder joint Problem Presence of urogenital implants Z96.0 Active Problem Acquired absence of other specified [...] index (BMI) 40.0-44.9, Z68.41 Active adult Assessment Acute drug-induced gout of foot, 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 Active unspecified laterality Assessment Chronic heart failure with I50.32 A ctive preserved ejection fraction Assessment Chronic deep vein thrombosis (DVT) I82.502 Active of left lower extremity, unspecified vein Assessment 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 and stage 1 through stage 4 chronic kidney disease, or chronic kidney disease Assessment Chronic obstructive pulmonary J44.9 Active disease Problem CHF (congestive heart failure) I50.9 Active [...] End Status Dosage System Date Date Requip [facility] 53911918944 1 MG Orally 5 Active 1 tabl et times a day Hydromorphone HCl [facility] 61690133204 4 MG Orally Active 1 tablet every 8 hrs as needed PRN Spironolactone [facility] 94457510273 25 MG Orally Active 1 tablet Once a day Bumex [facility] 48823521010 2 MG Orally Active 1 tablet twice a day CoQ-10 [facility] 80[address] Active not defined Duloxetine HCl [facility] 11340831171 60 MG Orally Active 1 capsule Twice a day Folic Acid [facility] 98511178715 1 MG Orally Active 1 tab let Twice a day Metolazone [facility] 66300074393 2.5 MG Orally Inactive 1 tablet Once a day 30 mins before AM bumex Albuterol Sulfate [facility] 58733275372 108 (90 Base) Acti ve 2 puffs HFA MCG/ACT as needed Inhalation every 6 hrs PRN Shortness of breath, Cough or Wheezing Lipitor ND 49928298550 10 MG Orally Active 1 table t Once a day Singulair ND 70113500217 10 MG Orally Active 1 tab let Once a day Ferrous Sulfate ND 17973681827 324 MG Orally Active 1 tablet Once a day Pantoprazole ND 52863330124 40 MG Active TAKE 1 Sodium TABLET BY MOUTH EVERY DAY Ropinirole HCl [facility] [address]-10 1 MG Active ANDREY E 1 TABLET BY MOUTH FIVE TIMES A DAY Methocarbamol ND 16491488606 750 MG Orally Active 1 tablet every 8 hrs PRN Eliquis 2.5 mg [facility] 85371835570 2.5 mg by Active one mouth twice daily Breo Ellipta [facility] 73910048961 200-25 MCG/INH Active TAKE 1 PUFF BY MOUTH EVERY DAY Breo Ellipta [facility] 31408881447 200-25 MCG/INH Active 1 puff Inhalation Once a day Potassium [facility] 90463815547 20 MEQ Orally Active 1 ta blet Chloride ER Once a day with food Neurontin ND 92305015445 600 MG Orally Active 1 ta blet Three times a day [place] 3 [facility] [address] Active not defined Aspirin [facility] [address]-99 Active not defined Duloxetine HCl [facility] 73050577113 60 MG Orally Active 1 capsule Twice a day Trazodone HCl [facility] 45975682970 150 MG Orally Active 1 tablet Once a day at bedtime Ventolin HFA [facility] 06577924635 108 (90 Base) November 28, Active 2 puffs MCG/ACT 2019 as needed Inhalation every 6 hrs Results No Known Results Summary Purpose eClinicalWorks Submission
--- OUTSIDE RECORDS SUMMARY | 2019-11-01 17:04 | XMS REPORT | Summary of Care ---
:1945 Author Organization [facility] - Health Address [address] [place] [address] Care Team Providers Name Role Phone Tyree Pacheco Primary Care Provider Encounter Details Date Type Department Care Team Description 10/01/2019 Orders Only [facility] Doctor Unassigned, No [address] [facility] [place] [address] [address] [place] [address] Allergies Active Allergy Reactions Severity Noted Date Comments Codeine Nausea and/or Vomiting High 12/12/2016 Metolazone Unknown - See comments 10/01/2019 gout documented as of this encounter (statuses as of 10/04/2019) Medications Medication Sig Dispensed Refills Start Date [...] 1 tablet by mouth 180 tablet 3 11/16/2015 Active tabletIndications: Chronic 2 (two) times daily. back pain pantoprazole (PROTONIX) 40 mg Take 1 tablet by mouth 90 tablet 3 11/16/2015 Active EC tabletIndications: daily. Gastroesophageal reflux disease without esophagitis traZODONE 100 mg tablet Take 100 mg by mouth 0 Active at bedtime. HYDROmorphOne 4 mg Take 2 mg by mouth 4 0 Active tabletIndications: Syncope, (four) times daily. unspecified syncope type, Essential hypertension, Obstructive sleep apnea syndrome naproxen 500 mg tablet Take 1 tablet by mouth 180 tablet 0 03/2018 Active 2 (two) times daily with meals. DULoxetine 60 mg capsule TAKE ONE CAPSULE BY 3 01/05 Active MOUTH EVERY DAY BREO ELLIPTA 200-25 mcg/dose 0 01/25/2018 Active DsDv atorvastatin 40 mg tablet Take 1 tablet by mouth 60 tablet 5 0 07/11/2019 Active daily. benzonatate 100 mg Take 1 capsule by 20 capsule 0 08/30/2019 Active capsuleIndications: Bronchitis mouth 3 (three) times daily as needed for Cough. KCL 20 mEq tablet Take 1 tablet by mouth 120 tablet 2 09/09/19 20 Active 2 (two) times daily. apixaban 2.5 mg Take 1 tablet by mouth 180 tablet 3 09/09/2019 Active tabletIndications: deep venous 2 (two) times daily. thrombosis Indications: blood clot in a deep vein of the extremities bumetanide 1 mg Take 2 tablets by 240 tablet 1 09/18/2019 Active tabletIndications: Chronic mouth every morning heart failure with preserved and evening. ejection fraction spironolactone 25 mg Take 1 tablet by mouth 60 tablet 3 2019 Active tabletIndications: Essential daily. hypertension documented as of this encounter (statuses as of 10/04/2019) Active Problems Problem Noted Date Volume overload 08/28/2019 Morbid obesity 08/28/2019 History of DVT (deep vein thrombosis) 08/28/2019 Acute on chronic heart failure with preserved ejection fraction 05/29/2017 Bilateral carotid artery disease 02/06/2017 Essential hypertension 06/19/2015 COPD (chronic obstructive pulmonary disease) 5 Hyperlipidemia 06/19/2015 Sleep apnea 06/19/2015 Osteoarthritis of both knees 06/19/2015 documented as of this encounter (statuses as of 10/04/2019) Immunizations Name Administration Dates Next Due Influenza [...] Procedures Procedure Name Priority Date/Time Associated Diagnosis Comme nts AUTHORIZATION FOR RELEASE Routine 10/01/2019 12:01 AM OF PHI CDT documented in this encounter Results Not on filedocumented in this encounter Insurance Payer Benefit Plan Subscriber ID Effective Phone Address Typ e / Group Dates AETNA - AETNA [id number] 2014-Prese [address] Medic are Adv MANAGED MEDICARE ADV nt [id number] [place] [address] documented as of this encounter
--- OUTSIDE RECORDS SUMMARY | 2019-11-01 17:04 | XMS REPORT ---
:1945 Author Organization [employer] Care Team Providers Name Role Phone Tyree Pacheco Provider Role Unavailable Allergies No Known Allergies Problems Problem Type Condition Code Onset Dates Condition Statu s Problem Major depressive disorder F32.9 Ac tive Problem USP current use of opiate Z79.891 Active analgesic [...] without esophagitis Problem Cervicalgia M54.2 Active Problem USP current use of Z79.01 Act willard anticoagulant [...] other diseases of the circulatory system Problem USP current use of inhaled Z79.51 Active steroid [...]
--- OUTSIDE RECORDS SUMMARY | 2019-11-01 17:04 | XMS REPORT | Summary of Care ---
:1945 Author Organization [facility] Address [address] [place] [address] Care Team Providers Name Role Phone Junior Tyree Delmis Primary Care Provider Reason for Visit Reason Comments CHF Encounter Details Date Type Department Care Team Description 10/01/2019 Telemedicine Visit [facility] Layla Schaeffer Essenti al hypertension (Primary Dx); Cardiology- MD Chronic heart failure with preserved eje ction fraction; [address] Gout, unspecified cause, uns pecified chronicity, unspecified site; [address] (obstructive sleep apnea) [address], [address] [place] [id number] Allergies Active Allergy Reactions Severity Noted Date Comments Codeine Nausea and/or Vomiting High 12/12/2016 Metolazone Unknown - See comments 10/01/2019 gout documented as of this encounter (statuses as of 10/01/2019) Medications Medication Sig Dispensed Refills Start Date [...] Take 1 tablet by 180 tablet 3 6 Active 600 mg mouth 2 (two) tabletIndications: times daily. Chronic back pain pantoprazole (PROTONIX) Take 1 tablet by 90 tablet 3 6 Active 40 mg EC mouth daily. tabletIndications: Gastroesophageal reflux disease without esophagitis traZODONE 100 mg tablet Take 100 mg by 0 Active mouth at bedtime. HYDROmorphOne 4 mg Take 2 mg by 0 Active tabletIndications: mouth 4 (four) Syncope, unspecified times daily. syncope type, Essential hypertension, Obstructive sleep apnea syndrome naproxen 500 mg tablet Take 1 tablet by 180 tablet 0 8 Active mouth 2 (two) times daily with [...] 09/09/2019 Active mouth 2 (two) times daily. apixaban 2.5 mg Take 1 tablet by 180 tablet 3 09/09/2019 Active tabletIndications: deep mouth 2 (two) venous thrombosis times daily. Indications: blood clot in a deep vein of the extremities bumetanide 1 mg Take 2 tablets 240 tablet 1 09/18/2019 Active tabletIndications: by mouth every Chronic heart failure morning and with preserved ejection evening. fraction spironolactone 25 mg Take 1 tablet by 60 tablet 3 10/01/2019 Active tabletIndications: mouth daily. Essential hypertension metOLazone 2.5 mg 1 tablet 30 30 tablet 1 09/09/201909/30 Discontinued tabletIndications: minutes before Chronic heart failure morning bumex on with preserved ejection Monday/ fraction /Monday spironolactone 25 mg Take 1 tablet by 60 tablet 3 09/09/2019 0 09/30 Discontinued tablet mouth daily. (Iveth trujillo) documented as of this encounter (statuses as of 10/01/2019) Active Problems Problem Noted Date Volume overload 08/28/2019 Morbid obesity 08/28/2019 History of DVT (deep vein thrombosis) 08/28/2019 Acute on chronic heart failure with preserved ejection fraction 05/29/2017 Bilateral carotid artery disease 02/06/2017 Essential hypertension 06/19/2015 COPD (chronic obstructive pulmonary disease) 5 Hyperlipidemia 06/19/2015 Sleep apnea 06/19/2015 Osteoarthritis of both knees 06/19/2015 documented as of this encounter (statuses as of 10/01/2019) Immunizations Name Administration Dates Next Due Influenza [...] Signs Not on filedocumented in this encounter Progress Notes Layla Schaeffer MD - 10/01/2019 1:00 PM CDT CARDIOLOGY CLINIC NOTE 10/01/2019 Reason for Referral/Presenting Complaint: HFpEF PCP: Tyree [...] metolazone. In 08/2019 she was admitted to [facility] for worsening SOB and edema. Since last visit she has lost 16 lbs.Less SOB. No orthopnea. This weekend she went to [facility] ER for gout--new diagnosis. Was started on steroids. Pain is better. For the past 4-5 days she has not taken any cardiac medications. Stable leg edema. A little moreSOB. No weight changes. No orthopnea. EKG--08/05/2019--reviewed by me--normal sinus rhythm, low voltage PMH: Past Medical History: Diagnosis Date (HFpEF) heart failure with preserved ejection fraction 05/29/2017 Arthritis Bilateral carotid artery disease 02/06/2017 Hyperlipidemia Hypertension Current Medications: Current Outpatient Medications Medication Sig Dispense Refill spironolactone 25 mg tablet Take 1 tablet by mouth daily. 60 tablet 3 bumetanide 1 mg tablet Take 2 tablets by mouth every morning and evening. 240 tablet 1 apixaban 2.5 mg tablet Take 1 tablet by mouth 2 (two) times daily. Indications: blood clot in a deep vein of the extremities 180 tablet 3 KCL 20 mEq tablet Take 1 tablet by mouth 2 (two) times daily. 120 tablet 2 benzonatate 100 mg capsule Take 1 capsule by mouth 3 (three) times daily as needed for Cough. 20capsule 0 atorvastatin 40 mg tablet Take 1 tablet by mouth daily. 60 tablet 5 BREO ELLIPTA 200-25 mcg/dose DsDv DULoxetine 60 mg capsule TAKE ONE CAPSULE BY MOUTH EVERY DAY 3 naproxen 500 mg tablet Take 1 tablet by mouth 2 (two) times daily with meals. 180 tablet 0 HYDROmorphOne 4 mg tablet Take 2 [...] Allergies Allergen Reactions Codeine Nausea and/or Vomiting Metolazone Unknown - See comments gout Social History: Social History Socioeconomic History Marital [...] file Gets together: Not on file Attends temple service: Not on file Active member of [...] Heart Mother CHF Thyroid Mother Cancer Father [email or web address] Hypertension Father Arthritis Father High cholesterol Father Depression Maternal Grandfather DC (myocardial infarction) Brother [email or web address] Review of Systems: (-)=Negative,(+)=Positive General: (-) fever, (-) chills, (-) weight change, (-) dizziness, (+) fatigue Skin: [...] Psych: (-) anxiety, (-) depression Physical Examination: Constitutional: Alert and in no distress Respiratory: Breathing comfortably Neurology: Answers questions appropriatelydeficits Labs: CBC BMP PT/INR WHITE BLOOD CELL [...] LDL CHOL (mg/dL) Date Value 08/28/2019 54 [id number] (mg/dL (calc)) Date Value 05/08/2018 87 TSH [...] The left ventricle is mildly dilated. Ejection Fraction = 55-60%. Diastolic function is impaired relaxation. The left ventricular wall motion is normal. Estimated RA pressure is 0-5 mmHg. Insufficient Tricuspid regurgitation jet to estimate RVSP. Cardiac Cath: 15 years ago [facility] no CAD DSE 2016--No ischemia Carotid duplex-- Bilateral 50-79% Assessment/Plan: ICD-10-CM ICD-9-CM 1. Essential hypertension I10 401.9 2. Chronic heart failure with preserved ejection fraction I50.32 428.9 3. Gout, unspecified cause, unspecified chronicity, unspecified site M10.9 274.9 4. NORMA (obstructive sleep apnea) G47.33 327.23 Gout--her first episode. Suspect that this is provoked by Metolazone. Will discontinue it. Advised to see Dr. Pacheco for advice on uric acid lowering therapy if indicated. HFpEF--She has not been taking medications for a few days. Volume status seems stable. Advised to continue Bumex 2 mg BID. Will discontinue metolazone due to gout. Continue spironolactone 25 mg daily. Discussed low salt diet, diet and weight loss. Needs periodic BMP. Left leg DVT--Repeat venous duplex showed chronic DVT. D-dimer still elevated. Will continue Eliquisat 2.5 mg BID. HTN--Her BP has been usually controlled. Will watch for adjustment. Coreg to stopped last admission due to low BP. Carotid artery stenosis--Asymptomatic. Will continue ASA and lipitor. Carotid duplex showed L ICA 50-79%. NORMA--Cannot use C-PAP. RTC 1 month Telehealth service ? Verbal consent obtained from patient [place] for telehealth sevice provided ? My location: [facility] cardiology clinic ? Patient location: Home ? Format: Telephone ? A total of 25 minutes spent on the telephone with the patient Layla Schaeffer MD, FACC, FACP, FASE Organizational Consultant, Division of Cardiology [facility] documented in this encounter Plan of Treatment [...] filedocumented in this encounter Visit Diagnoses Diagnosis Essential hypertension - Primary Unspecified essential hypertension Chronic heart failure with preserved eje ction fraction Gout, unspecified cause, unspecified chr onicity, unspecified site NORMA (obstructive sleep apnea) Obstructive sleep apnea (adult) (pediatr ic) documented in this encounter Insurance Payer Benefit Plan Subscriber ID Effective Phone Address Typ e / Group Dates AETNA - AETNA [id number] 2014-Prese [address] BOX Medic are Adv MANAGED MEDICARE ADV nt [id number] [place] [address] documented as of this encounter
--- OUTSIDE RECORDS SUMMARY | 2019-11-01 17:05 | XMS REPORT | Summary of Care ---
:1945 Author Organization [facility] Address [address] [place] [address] Care Team Providers Name Role Phone Tyree Pacheco Primary Care Provider Reason for Visit Reason Comments Refill Request Encounter Details Date Type Department Care Team Description 10/14/[address] [facility] Cardiology- [place] Schaeffer MD Refill Request [address] [facility], [address] [place] [address] [place] [address] [phone] Allergies Active Allergy Reactions Severity Noted Date Comments Codeine Nausea and/or Vomiting High 12/12/2016 Metolazone Unknown - See comments 10/01/2019 gout documented as of this encounter (statuses as of 10/15/2019) Medications Medication Sig Dispensed Refills Start Date [...] 180 tablet 3 6 Active 600 mg tabletIndications: mouth 2 (two) Chronic back pain times daily. pantoprazole (PROTONIX) Take 1 tablet by 90 [...] 60 mg capsule TAKE ONE CAPSULE 3 01/06/20 18 Active BY MOUTH EVERY DAY BREO ELLIPTA 200-25 0 01/25/2018 Active mcg/dose DsDv benzonatate 100 mg Take 1 capsule by 20 capsule 0 08/30/2019 Active capsuleIndications: mouth 3 (three) Bronchitis times daily as needed for Cough. KCL [...] by 240 tablet 1 09/18/2019 Active tabletIndications: mouth every Chronic heart failure morning and with preserved ejection evening. fraction spironolactone 25 mg Take 1 tablet by 60 tablet 3 10/01/2019 Active tabletIndications: mouth daily. Essential hypertension ATORVASTATIN 40 mg tablet TAKE 1 TABLET BY 90 tablet 4 020 Active MOUTH EVERY DAY atorvastatin 40 mg tablet Take 1 tablet by 60 tablet 5 020 mouth daily. 2019 documented as of this encounter (statuses as of 10/15/2019) Active Problems Problem Noted Date Volume overload 08/28/2019 Morbid obesity 08/28/2019 History of DVT (deep vein thrombosis) 08/28/2019 Acute on chronic heart failure with preserved ejection fraction 05/29/2017 Bilateral carotid artery disease 02/06/2017 Essential hypertension 06/19/2015 COPD (chronic obstructive pulmonary disease) 5 Hyperlipidemia 06/19/2015 Sleep apnea 06/19/2015 Osteoarthritis of both knees 06/19/2015 documented as of this encounter (statuses as of 10/15/2019) Immunizations Name Administration Dates Next Due Influenza [...] Treatment Date Type Specialty Care Team Description 10/30/2019 Telemedicine Visit Cardiology Layla Schaeffer MD [address] [facility] [address] [place] [address] 15 Health Maintenance Due Date Last Done Comments [...] e / Group Dates AETNA - AETNA [id number] 2014-Prese P O BOX Medic are Adv MANAGED MEDICARE ADV nt [id number] [place] [address] documented as of this encounter
--- OUTSIDE RECORDS SUMMARY | 2019-11-01 17:05 | XMS REPORT ---
:1945 Author Organization [employer] Care Team Providers Name Role Phone Tyree Pacheco Provider Role Unavailable Allergies No Known Allergies Problems Problem Type Condition Code Onset Dates Condition Statu s Problem Major depressive disorder F32.9 Ac tive Problem termite treater helper current use of opiate Z79.891 Active analgesic [...] without esophagitis Problem Cervicalgia M54.2 Active Problem correction current use of Z79.01 Act willard anticoagulant [...] other diseases of the circulatory system Problem termite treater helper current use of inhaled Z79.51 Active steroid [...] index (BMI) 40.0-44.9, Z68.41 Active adult Medications Medication Code Code Instructions Start End Date Status Dosage System Date Shayna [facility] 71381653749 100 MG Orally October Active 1 cap lata Patel Three times a 2019 as neede d day for cough Results No Known Results Summary Purpose eClinicalWorks Submission
--- OUTSIDE RECORDS SUMMARY | 2019-11-01 17:06 | XMS REPORT ---
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 and stage 1 through stage 4 chronic kidney disease, or chronic kidney disease Problem halfway current use of Z79.01 Act willard anticoagulant Problem Hypokalemia E87.6 Active Problem Bariatric surgery status Z98.84 Act willard Problem Presence of right artificial knee Z96.651 Active joint Problem Presence of right artificial Z96.611 Active shoulder joint Problem Presence of urogenital implants Z96.0 Active Problem History of falling Z91.81 Active Problem Personal history of nicotine Z87.891 Active dependence Problem Acquired absence of other specified Z90.49 Active parts of digestive tract Problem Acquired absence of both cervix and Z90.710 Active uterus Problem Family history of other mental and Z81.8 Active behavioral disorders Problem Family history of malignant Z80.9 Active neoplasm, unspecified Problem Personal history of other venous Z86.718 Active thrombosis and embolism Problem Family history of ischemic heart Z82.49 Active disease and other diseases of the circulatory system Problem Mixed incontinence N39.46 Active Problem Other muscle spasm M62.838 Active Problem Body mass index (BMI) 40.0-44.9, Z68.41 Active adult Problem Difficulty in walking, not R26.2 A ctive elsewhere classified Assessment Acute gout involving toe of left M10.9 Active foot, unspecified cause Assessment Chronic obstructive pulmonary J44.9 Active disease Assessment Chronic deep vein thrombosis (DVT) I82.502 Active of left lower extremity, unspecified vein Assessment Chronic heart failure with I50.32 A ctive preserved ejection fraction Assessment 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 and stage 1 through stage 4 chronic kidney disease, or chronic kidney disease Problem Venous insufficiency I87.2 Active Problem Cervicalgia M54.2 Active Problem Restless leg syndrome G25.81 Active Problem Benign essential hypertension I10 Active Problem 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 Problem CHF (congestive heart failure) I50.9 Active Problem Other specified polyneuropathies G62.89 Active Problem Morbid (severe) obesity due to E66.01 Active excess calories Problem Accelerated essential hypertension I10 Active Problem Chronic kidney disease, unspecified N18.9 Active Problem Chronic heart failure with I50.32 A ctive preserved ejection fraction Problem Morbid obesity E66.01 Active Problem Acute gout involving toe of left M10.9 Active foot, unspecified cause Problem Insomnia G47.00 Active Problem Chronic deep vein thrombosis (DVT) I82.502 Active of left lower extremity, unspecified vein Problem Chronic obstructive pulmonary J44.9 Active disease Problem 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 Problem Hyperlipidemia, mixed E78.2 Active Problem Stenosis of left carotid artery I65.22 Active Problem 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 Problem Bilateral carotid artery stenosis I65.23 Active Problem Obstructive sleep apnea G47.33 Acti ve Problem Other specified postprocedural Z98.890 Active states Problem buttermaker current use of inhaled Z79.51 Active steroid Problem 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.21 Active Problem Spinal stenosis of cervical region M48.02 Active Problem 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 Active Problem Iron deficiency anemia, unspecified D50.9 Active iron deficiency anemia type Medications Medication Code Code Instructions Start End Status Dosage System Date Date Sibley 3 [facility] [address] Active not defined CoQ-10 [facility] [address] Active not defined Hydromorphone HCl [facility] 14106810824 4 MG Orally Active 1 tablet every 8 hrs PRN as neede d Trazodone HCl [facility] 01343870781 150 MG Orally Active 1 tablet Once a day at bedtime Eliquis 2.5 mg [facility] 55188802183 2.5 mg by mouth Activ e one twice daily Potassium [facility] 57174880148 20 MEQ Orally Active 1 ta blet Chloride ER Once a day with food Spironolactone [facility] 26039293737 25 MG Orally Active 1 tablet Once a day Ferrous Sulfate [facility] 89758895957 324 MG Orally Active 1 tablet Once a day Lipitor ND 67111965991 10 MG Orally Active 1 table t Once a day Ropinirole HCl [facility] [address]-14 1 MG Active ANDREY E 1 TABLET BY MOUTH FIVE TIMES A DAY Requip [facility] 54987061945 1 MG Orally 5 Active 1 tabl et times a day PredniSONE ND 53780492293 20 MG Orally October Active 2 ta blet Once a day , 2019 Breo Ellipta [facility] 37487173528 200-25 MCG/INH Active 1 puff Inhalation Once a day Bumex [facility] 13994981672 2 MG Orally Active 1 tablet twice a day Singulair ND 77836227279 10 MG Orally Active 1 tab let Once a day Aspirin [facility] [address]-61 Active not defined Albuterol Sulfate [facility] 75380288841 108 (90 Base) Acti ve 2 puffs HFA MCG/ACT as needed Inhalation every 6 hrs PRN Shortness of breath, Cough or Wheezing Neurontin [facility] 95316161278 600 MG Orally Active 1 ta blet Three times a day Duloxetine HCl [facility] 26261278661 60 MG Orally Active 1 capsule Twice a day Ventolin HFA [facility] 12204489402 108 (90 Base) November 28, Active 2 puffs MCG/ACT 2018 as needed Inhalation every 6 hrs Breo Ellipta [facility] 79271257957 200-25 MCG/INH Active TAKE 1 PUFF BY MOUTH EVERY DAY Methocarbamol [facility] 80359704478 750 MG Orally Active 1 tablet every 8 hrs PRN Colchicine ND 39527485737 0.6 MG Orally October Active 2 t ab PO Once a day 17, x 1, then 2019 1 tab 0.6 mg 1 hour later x 1 Max 1.8 mg total dose/cour se Folic Acid [facility] 04839929057 1 MG Orally Active 1 tab let Twice a day Duloxetine HCl [facility] 36967791743 60 MG Orally Active 1 capsule Twice a day Pantoprazole [facility] 36436374831 40 MG Active TAKE 1 Sodium TABLET BY MOUTH EVERY DAY Results No Known Results Summary Purpose eClinicalWorks Submission
--- OUTSIDE RECORDS SUMMARY | 2019-11-01 17:06 | XMS REPORT ---
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 and stage 1 through stage 4 chronic kidney disease, or chronic kidney disease Problem intermission coordinator current use of Z79.01 Act willard anticoagulant [...] not R26.2 A ctive elsewhere classified Problem Venous insufficiency I87.2 Active Problem Cervicalgia [...] Other specified postprocedural Z98.890 Active states Problem intermission coordinator current use of inhaled Z79.51 Active steroid Problem 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
--- OUTSIDE RECORDS SUMMARY | 2019-11-01 17:06 | XMS REPORT ---
:1945 Author Organization [employer] Care Team Providers Name Role Phone Tyree Pacheco Provider Role Unavailable Allergies No Known Allergies Problems Problem Type Condition Code Onset Dates Condition Statu s Problem Major depressive disorder F32.9 Ac tive Problem penitentiary current use of opiate Z79.891 Active analgesic [...] without esophagitis Problem Cervicalgia M54.2 Active Problem penitentiary current use of Z79.01 Act willard anticoagulant [...] other diseases of the circulatory system Problem penitentiary current use of inhaled Z79.51 Active steroid [...]
[2019-11-01] MEDS ORDERED: predniSONE 20 MG TAB ONE (18:35)
[2019-11-01] MEDS ORDERED: COLCHICINE 0.6 MG TAB ONE ×2 (18:35→19:51)
--- NOTE | 2019-11-01 19:40 | ER ---
Nurse's Notes Formerly [facility] Name: Little Stafford Age: 74 yrs Sex: Female : 1945 Arrival Date: 11/01/2019 Time: 16:54 Bed 13 Private MD: Diagnosis: Gout;Edema, unspecified Presentation: 10/31 17:04 Chief complaint: EMS states: called out for right knee pain and swelling and right 1st sv toe pain, hx of Gout. SBP 110s HR-90-100 O2 sat 90s% (pt states it is her normal). Coronavirus screen: Proceed with normal triage. Patient denies a cough. Patient denies shortness of breath or difficulty breathing. Patient denies measured and/or subjective temperature greater than 100.4F prior to today's visit. Patient denies travel on a cruise ship or to a country the [facility] currently lists as an affected area. Patient denies contact with known and/or suspected case of COVID-19. Ebola Screen: No symptoms or risks identified at this time. Risk Assessment: Do you want to hurt yourself or someone else? Patient reports no desire to harm self or others. Onset of symptoms was November 01, 2019. 17:04 Method Of Arrival: EMS: [facility] sv 17:04 Acuity: KELLEY 4 sv 17:10 Initial Sepsis Screen: Does the patient meet any 2 criteria? No. Patient's initial sv sepsis screen is negative. Does the patient have a suspected source of infection? No. Patient's initial sepsis screen is negative. Triage Assessment: 17:11 General: Appears in no apparent distress. uncomfortable, Behavior is calm, cooperative, sv appropriate for age. Pain: Complains of pain in right leg. EENT: No signs and/or symptoms were reported regarding the EENT system. Neuro: Level of Consciousness is awake, alert, obeys commands. Respiratory: Respiratory effort is even, unlabored. Historical: - Allergies: 17:05 Codeine; sv - PMHx: 17:05 CHF; Chronic pain; Depression; DVT Left leg; GERD; High Cholesterol; Hyperlipidemia; sv Hypertension; restless leg syndrome; Gout; - PSHx: 17:05 Cholecystectomy; sv - Immunization history:: Adult Immunizations up to date. - Social history:: Smoking status: Patient denies any tobacco usage or history of. - Family history:: not pertinent. Screenin:30 Abuse screen: Denies threats or abuse. Denies injuries from another. Nutritional ls4 screening: No deficits noted. Tuberculosis screening: No symptoms or risk factors identified. Fall Risk None identified. Assessment: 18:30 Reassessment: Patient is alert, oriented x 3, equal unlabored respirations, skin aa5 warm/dry/pink. Pt sitting up in bed. Pt notified of wait time for US to be completed. . 22:42 Reassessment: Patient appears in no apparent distress at this time. Patient is alert, ls4 oriented x 3, equal unlabored respirations, skin warm/dry/pink. Patient states symptoms have improved. Vital Signs: 17:06 BP 101 / 76; Pulse 76; Resp 20; Temp 98.1; Pulse Ox 94% ; Weight 110.22 kg; Height 5 sv ft. 3 in. (160.02 cm); 19:32 BP 106 / 70; Pulse 74; Resp 14; Temp 98.0(O); Pulse Ox 99% on R/A; Pain 3/10; ls4 17:06 Body Mass Index 43.05 (110.22 kg, 160.02 cm) sv ED Course: 16:54 Patient arrived in ED. ag5 17:05 Triage completed. sv 17:06 Arm band placed on. sv 17:30 Yariel Cohen MD is Attending Physician. jae 17:30 Patient has correct armband on for positive identification. Bed in low position. Call ls4 light in reach. Side rails up X 1. Pulse ox on. NIBP on. 17:30 Warm blanket given. Pillow given. Verbal reassurance given. ls4 17:30 No provider procedures requiring assistance completed. Patient did not have IV access ls4 during this emergency room visit. 17:34 Alicia Tanner, NATASHA is Primary Nurse. ls4 19:53 US Extremity Venous W Compression Fred In Process Unspecified. EDMS Administered Medications: 18:30 Drug: Colcrys 1.2 mg Route: PO; aa5 18:50 Follow up: Response: No adverse reaction ls4 18:30 Drug: predniSONE 40 mg Route: PO; aa5 18:50 Follow up: Response: No adverse reaction ls4 19:30 Drug: Colcrys 0.6 mg Route: PO; ls4 19:50 Follow up: Response: No adverse reaction ls4 Outcome: 19:40 Discharge ordered by MD. rowe 20:01 Patient left the ED. ls4 22:40 Discharged to home ambulatory. ls4 22:40 Condition: stable 22:40 Discharge instructions given to patient, Instructed on discharge instructions, follow up and referral plans. medication usage, Demonstrated understanding of instructions, follow-up care, medications, Prescriptions given X 3. Signatures: Dispatcher [employer] EDAraseli Harvey RN Yariel Goddard MD MD cha Calderon, Audri, RN RN aa5 Alicia Tanner RN RN ls4 Godwin Jimenez [facility]
--- NOTE | 2019-11-01 19:41 | EDPHYS ---
Physician Documentation [facility] Name: Little Stafford Age: 74 yrs Sex: Female : 1945 Arrival Date: 11/01/2019 Time: 16:54 Bed 13 Private MD: LIO Physician Yariel Cohen HPI: 10/31 17:46 This 74 yrs old Female presents to ER via EMS with complaints of Gout. jae 17:59 The patient presents with decreased range of motion, pain, swelling, tenderness. The jae complaints affect the dorsum of right foot, right first toe. Context: The problem was sustained at home, resulted from a chronic condition, GOUT. Onset: The symptoms/episode began/occurred 2 day(s) ago. Modifying factors: The symptoms are alleviated by nothing. elevating leg, remaining still, the symptoms are aggravated by movement, weight bearing. Associated signs and symptoms: The patient has no apparent associated signs or symptoms. The patient presents with decreased range of motion, pain, swelling, tenderness. The complaints affect the right foot, right first toe. Modifying factors: The symptoms are alleviated by nothing, elevation of extremity, the symptoms are aggravated by weight bearing, movement, wearing shoes. Historical: - Allergies: 17:05 Codeine; sv - PMHx: 17:05 CHF; Chronic pain; Depression; DVT Left leg; GERD; High Cholesterol; Hyperlipidemia; sv Hypertension; restless leg syndrome; Gout; - PSHx: 17:05 Cholecystectomy; sv - Immunization history:: Adult Immunizations up to date. - Social history:: Smoking status: Patient denies any tobacco usage or history of. - Family history:: not pertinent. ROS: 17:59 Constitutional: Negative for fever, chills, and weight loss, Eyes: Negative for injury, jae pain, redness, and discharge, ENT: Negative for injury, pain, and discharge, Neck: Negative for injury, pain, and swelling, Cardiovascular: Negative for chest pain, palpitations, and edema, Respiratory: Negative for shortness of breath, cough, wheezing, and pleuritic chest pain, Abdomen/GI: Negative for abdominal pain, nausea, vomiting, diarrhea, and constipation, Back: Negative for injury and pain, : Negative for injury, bleeding, discharge, and swelling, Skin: Negative for injury, rash, and discoloration, Neuro: Negative for headache, weakness, numbness, tingling, and seizure, Psych: Negative for depression, anxiety, suicide ideation, homicidal ideation, and hallucinations, Allergy/Immunology: Negative for hives, rash, and allergies, Endocrine: Negative for neck swelling, polydipsia, polyuria, polyphagia, and marked weight changes, Hematologic/Lymphatic: Negative for swollen nodes, abnormal bleeding, and unusual bruising. 17:59 MS/extremity: Positive for decreased range of motion, pain, swelling, tenderness, of the right foot and left leg. Exam: 17:59 Constitutional: This is a well developed, well nourished patient who is awake, alert, jae and in no acute distress. Head/Face: Normocephalic, atraumatic. Eyes: Pupils equal round and reactive to light, extra-ocular motions intact. Lids and lashes normal. Conjunctiva and sclera are non-icteric and not injected. Cornea within normal limits. Periorbital areas with no swelling, redness, or edema. ENT: Nares patent. No nasal discharge, no septal abnormalities noted. Tympanic membranes are normal and external auditory canals are clear. Oropharynx with no redness, swelling, or masses, exudates, or evidence of obstruction, uvula midline. Mucous membranes moist. Neck: Trachea midline, no thyromegaly or masses palpated, and no cervical lymphadenopathy. Supple, full range of motion without nuchal rigidity, or vertebral point tenderness. No Meningismus. Chest/axilla: Normal chest wall appearance and motion. Nontender with no deformity. No lesions are appreciated. Cardiovascular: Regular rate and rhythm with a normal S1 and S2. No gallops, murmurs, or rubs. Normal PMI, no JVD. No pulse deficits. Respiratory: Lungs have equal breath sounds bilaterally, clear to auscultation and percussion. No rales, rhonchi or wheezes noted. No increased work of breathing, no retractions or nasal flaring. Abdomen/GI: Soft, non-tender, with normal bowel sounds. No distension or tympany. No guarding or rebound. No evidence of tenderness throughout. Back: No spinal tenderness. No costovertebral tenderness. Full range of motion. Skin: Warm, dry with normal turgor. Normal color with no rashes, no lesions, and no evidence of cellulitis. Neuro: Awake and alert, GCS 15, oriented to person, place, time, and situation. Cranial nerves II-XII grossly intact. Motor strength 5/5 in all extremities. Sensory grossly intact. Cerebellar exam normal. Normal gait. Psych: Awake, alert, with orientation to person, place and time. Behavior, mood, and affect are within normal limits. 17:59 Musculoskeletal/extremity: Extremities: noted in the right first toe: erythema, pain, noted in the left knee: decreased ROM, pain, DVT Exam: no pain, no swelling, no tenderness, negative Homans' sign noted on exam, no appreciated bluish discoloration, no erythema, no increased warmth. 19:09 Respiratory: the patient does not display signs of respiratory distress, Respirations: jae normal, Breath sounds: are clear throughout, no bronchial sounds, no decreased breath sounds, no rales, rhonchi, no stridor, no wheezing, Respiratory rate: 18 Vital Signs: 17:06 BP 101 / 76; Pulse 76; Resp 20; Temp 98.1; Pulse Ox 94% ; Weight 110.22 kg; Height 5 sv ft. 3 in. (160.02 cm); 19:32 BP 106 / 70; Pulse 74; Resp 14; Temp 98.0(O); Pulse Ox 99% on R/A; Pain 3/10; ls4 17:06 Body Mass Index 43.05 (110.22 kg, 160.02 cm) sv MDM: 17:30 Patient medically screened. jae 18:11 Differential diagnosis: tendonitis, sprain. Data reviewed: radiologic studies, doppler. [facility] Data interpreted: cardiac monitor: not applicable for this patient encounter. Pulse oximetry: on room air is 94 %. Test interpretation: by ED physician or midlevel provider: USG. ED course: PT CO PAIN BILATERAL LE, HX OF DVT ON ELIQUIS ON 2.5 MG PO BID WITH NORMAL RENAL FUNCTION. 19:09 Counseling: I had a detailed discussion with the patient and/or guardian regarding: the [facility] historical points, exam findings, and any diagnostic results supporting the discharge/admit diagnosis, lab results, radiology results, the need for outpatient follow up, for definitive care. 10/31 18:11 Order name: US Extremity Venous W Compression Fred jae Administered Medications: 18:30 Drug: Colcrys 1.2 mg Route: PO; aa5 18:50 Follow up: Response: No adverse reaction ls4 18:30 Drug: predniSONE 40 mg Route: PO; aa5 18:50 Follow up: Response: No adverse reaction ls4 19:30 Drug: Colcrys 0.6 mg Route: PO; ls4 19:50 Follow up: Response: No adverse reaction ls4 Disposition: 11/01/19 19:40 Discharged to Home. Impression: Gout, Edema, unspecified. - Condition is Stable. - Discharge Instructions: Edema, Gout, Edema, [id number]-Pndf, Gout, Pjrf-zk-Togj, Peripheral Edema. - Prescriptions for indomethacin 25 mg Oral capsule - take 1 capsule by ORAL route 3 times per day with food; 21 capsule. Colchicine- Probenecid 0.5-500 mg Oral Tablet - take 1 tablet by ORAL route every 1 hour up to 3 hours; 3 tablet. Medrol (Gurdeep) 4 mg Oral Tablets, Dose Pack - take 1 tablet by ORAL route as directed - follow package instructions; 1 packet. - Medication Reconciliation Form, Thank You Letter, Antibiotic Education, Prescription Opioid Use form. - Follow up: Private Physician; When: 5 - 6 days; Reason: Recheck today's complaints, Continuance of care, Re-evaluation by your physician. - Problem is new. - Symptoms have improved. Signatures: Dispatcher [employer] Araseli Hackett, RN RN Yariel Franz MD MD cha Calderon, Audri, RN RN aa5 Alicia Tanner RN RN ls4 Corrections: (The following items were deleted from the chart) 20:01 19:40 11/01/2019 19:40 Discharged to Home. Impression: Gout; Edema, unspecified. ls4 Condition is Stable. Discharge Instructions: Edema, Gout, Edema, Ezpp-ak-Hmat, Gout, Zqxe-mr-Whnn, Peripheral Edema. Prescriptions for indomethacin 25 mg Oral capsule - take 1 capsule by ORAL route 3 times per day with food; 21 capsule, Colchicine-Probenecid 0.5-500 mg Oral Tablet - take 1 tablet by ORAL route every 1 hour up to 3 hours; 3 tablet, Medrol (Gurdeep) 4 mg Oral Tablets, Dose Pack - take 1 tablet by ORAL route as directed - follow package instructions; 1 packet. and Forms are Medication Reconciliation Form, Thank You Letter, Antibiotic Education, Prescription Opioid Use. Follow up: Private Physician; When: 5 - 6 days; Reason: Recheck today's complaints, Continuance of care, Re-evaluation by your physician. Problem is new. Symptoms have improved. jae
--- NOTE | 2019-11-01 20:05 | RAD REPORT ---
EXAM DESCRIPTION: US - Extrem Venous W Compress Fred - 11/01/2019 7:53 pm CLINICAL HISTORY: Pain;Swelling Bilateral leg edema and swelling. COMPARISON: Extrem Venous W Compress Fred dated 09/29/2019 TECHNIQUE: Real-time sonographic interrogation of the left and right lower extremity deep venous sys tems was performed. FINDINGS: Normal compressibility, flow augmentation, phasic flow and spontaneous flow is identified in both the left and right lower extremity deep venous systems. IMPRESSION: No sonographic evidence of left or right lower extremity deep venous thrombosis.
== END 2019-11-01 20:01 | disposition home or self-care (01) ==
LOC: ER 16:52
DX: M10.9 Gout, unspecified (principal); R60.9 Edema, unspecified; I10 Essential (primary) hypertension; Z86.718 Personal history of other venous thrombosis and embolism; Z79.01 Long term (current) use of anticoagulants; Z88.5 Allergy status to narcotic agent
CPT/HCPCS: 93970; 99284; J7512

== ENCOUNTER → 2020-08-26 | Day surgery (SDC) | payer OTHER ==
[~2020-08-26] MED LIST: EPINEPHRINE/PF 1 MG/ML AMP ONE; LIDOCAINE 1% MPF 5 ML VIAL ONE; Ringers Lactate 1,000 ML IV ONE; propofoL 200 MG/20 ML VIAL IV ONE
--- NOTE | 2020-08-26 08:57 | ENDO RPT ---
[address], [address] EGD PROCEDURE REPORT EXAM DATE: 08/26/2020 PATIENT NAME: Little Stafford MR#: [id number] BIRTHDATE: 1945 ATTENDING: Marcus [address] Dr STATUS: outpatient TOMATO PASTE MAKER: Melissa Schulz RN and Gina Gómez CST INDICATIONS: The patient is a 75 yr old Female here for an EGD due to GERD and heartburn PROCEDURE PERFORMED: EGD with biopsy MEDICATIONS: Per Anesthesia. TOPICAL ANESTHETIC: none CONSENT: The patient understands the risks and benefits of the procedure and understands that these risks include, but are not limited to: sedation, allergic reaction, infection, perforation and/or bleeding. Alternative means of evaluation and treatment include, among others: physical exam, x-rays, and/or surgical intervention. The patient elects to proceed with this endoscopic procedure. DESCRIPTION OF PROCEDURE: During intra-op preparation period all mechanical medical equipment was checked for proper function. Hand hygiene and appropriate measures for infection prevention was taken. Procedure, possible complications, and alternatives including but not limited to the possibility of bleeding, perforation, tear, infection, sepsis, need for surgery, need for blood transfusion, and anesthesia related complications were explained to the patient. After the risks, benefits and alternatives of the procedure were thoroughly explained, Informed consent was verified, confirmed and timeout was successfully executed by the treatment team. The patient was placed in the left lateral position. The patient was anesthetized with topical anesthesia. Through the anesthetized oropharyngeal area, the scope was passed without any difficulty. The [id number] ([id number]) and [id number] ([id number]) endoscope was introduced through the mouth and advanced to the descending duodenum. Retroflexed views revealed no abnormalities. The gastroscope was then slowly withdrawn and removed. LA Class A esophagitis was found in the lower esophagus. Lap band surgical changes were found in the proximal body / fundus. Mild atrophic gastritis was found in the body and the antrum of the stomach. Multiple biopsies were obtained and sent to pathology. Duodenitis was found in the bulb and descending duodenum. Multiple ( 12) 2-4 mm shallow clean-based ulcers were found in the bulb and descending duodenum. ADVERSE EVENTS: There were no complications. IMPRESSIONS: 1. LA class A esophagitis in the lower esophagus 2. Lap band surgical changes in the proximal body / fundus 3. Mild atrophic gastritis in the body and the antrum of the stomach 4. Duodenitis in the bulb and descending duodenum 5. Multiple ( 12) 2-4 mm shallow clean-based ulcers in the bulb and descending duodenum RECOMMENDATIONS: 1. await biopsy results 2. acid suppression therapy REPEAT EXAM: Marcus Greene Dr eSigned: Marcus Greene Dr 08/26/2020 8:57 AM cc: Tyree Pacheco CPT CODES: ICD9 CODES: PATIENT NAME: Little Stafford MR#: [id number]
[2020-08-26 09:13] VITALS: TEMP 97.6
[2020-08-26 09:14] VITALS: BP 135/70; O2SAT 98
== END ==
LOC: PRE 06:35
PROVIDERS: ATTEND Internal Medicine Gastroenterology
PROC: 0DB68ZX Excision of Stomach, Via Natural or Artificial Opening Endoscopic, Diagnostic (ICD-10-PCS; principal; 2020-08-26 07:30)
DX: K29.70 Gastritis, unspecified, without bleeding (principal); K20.90 Esophagitis, unspecified without bleeding; R12 Heartburn; K29.80 Duodenitis without bleeding; K26.9 Duodenal ulcer, unspecified as acute or chronic, without hemorrhage or perforation; Z20.822 Contact with and (suspected) exposure to COVID-19
CPT/HCPCS: 43239; 36415; 88312; 84132; 88305; U0002; J2704 ×2; J7120; J0171

== ENCOUNTER 2020-10-02 14:39 | Emergency (ER) | payer OTHER ==
--- OUTSIDE RECORDS SUMMARY | 2020-10-02 14:44 | XMS REPORT | Continuity of Care Document ---
:1945 Author Organization [facility] t Address [address] [place] [id number] Care Team Providers Name Role Phone Joe KAUR, T Attending Clinician Unavailable Maksim ELLIS Attending Clinician Only, Test Attending Clinician Unavailable Doctor Unassigned, Name Attending Clinician Unavailable Angel Ruby Attending Clinician Angel Ruby Admitting Clinician Payers Payer Name Policy Type Policy Number Effective Date Expiration Date S ource Problems Condition Condition Condition Status Onset Resolution Last Treating Co mments Source Name Details Category Date Date Treatment Clinician Date CERVICAL Diagnosis Active 2016-04-04 M emoria STENOSIS - 18:00:00 l CERVICAL 00:00: Omer n STENOSIS 00 Active 03/18/2016 [facility] Neck pain Problem Resolve 2016-07-08 M emoria (finding) d 04:40:14 l Neck [place] pain (finding) Resolved Problem 07/08/2016 [facility] [place] Chronic Problem Active 2016-07-08 Manjinder nasir obstructiv 04:40:14 l e lung Chronic [place] disease obstructiv (disorder) e lung disease (disorder) Active Problem 07/08/2016 [facility] [place] Depressive Problem Active 2016-07-08 M emoria disorder 04:40:14 l (disorder) Omer n Depressive disorder (disorder) Active Problem 07/08/2016 [facility] [place] Eczema Problem Active 2016-07-08 Memor ia (disorder) 04:40:14 l Eczema Eliot (disorder) Active Problem 07/08/2016 [facility] [place] Hypertensi Problem Active 2016-07-08 M emoria ve 04:40:14 l disorder, [place] systemic Hypertensi arterial ve (disorder) disorder, systemic arterial (disorder) Active Problem 07/08/2016 [facility] [place] Impairment Problem Active 2016-07-08 M emoria of balance 04:40:14 l (finding) [place] Impairment of balance (finding) Active Problem 07/08/2016 [facility] [place] Obesity Problem Active 2016-07-08 Manjinder nasir (disorder) 04:40:14 l Obesity [place] (disorder) Active Problem 07/08/2016 [facility] [place] Obstructiv Problem Active 2016-07-08 M emoria e sleep 04:40:14 l apnea [place] syndrome Obstructiv (disorder) e sleep apnea syndrome (disorder) Active Problem 07/08/2016 [facility] OP[facility] [place] Pain Problem Active 2016-07-08 Memor ia (finding) 04:40:14 l Pain [place] (finding) Active Problem 07/08/2016 [facility] OPID [place] SPINAL Diagnosis Active 2016-04-04 Mem oria STENOSIS, 18:00:00 l CERVICAL SPINAL Omer n REGION STENOSIS, CERVICAL REGION Active [facility] CERVICAL Diagnosis Active 2016-04-04 M emoria DISC 18:00:00 l 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 , WITH MYELOPATHY , Active [facility] Allergies, Adverse Reactions, Alerts Allergy Allergy Status Severity Reaction(s) Onset Inactive Treating Comm ents Source Name Type Date Date Clinician codeine DA Active [facility] [place] codeine DA Active SV 2017- [facility] 9-11 [place] 00:[facility]: [facility] codeine DA Active SV 2016- [facility] 2-07 [place] 00:[facility] codeine Adverse Active nausea, [facility] Reaction [facility] Social History Smoking Status Start Date Stop Date Source Social History 2016-07-05 21:40:59 2016-07-05 21:40:59 [facility] Medications Ordered Filled Start Stop Current Ordering Indication Dosage Frequency Signature Comments Components Source Medication Medication Date Date Medication? Clinician (SIG) Name Name Omeprazole Omeprazole Yes Tyree [address] [facility] 03-05 [place] 30 minutes [facility] before [facility] 00 morning l [facility] Trazodone 2015-07 No Notes: Memori a Hydrochlori 0-06 (Same As: l de 100 MG 02:00: Desyrel) Herm jesse Oral Tablet 00 Ativan 2015-07 No Notes: Memoria 0-05 (Same as: l 15:57: Ativan) Eliot 00 Aspirin 2015-07 No Notes: Do Memor ia 0-05 not crush l 14:00: or chew. [place] 00 (Same As: Ecotrin) Potassium 2015-07 No 20 mEq, Memor ia Chloride 20 0-05 Route: PO, l MEQ 14:00: Drug form: [place] Extended 00 ERTAB, Release Daily, Tablet Dosing Weight 90.909, kg, Start date: 04/06/16 9:00:00 CDT, Duration: 30 day, Stop date: 05/05/16 9:00:00 CDT Furosemide 2015-07 No 20 mg, Memor ia 20 MG Oral 0-05 Route: PO, l Tablet 14:00: Drug form: Megan nn [Lasix] 00 TAB, Daily, Dosing Weight 90.909, kg, Start date: 04/06/16 9:00:00 CDT, Duration: 30 day, Stop date: 05/05/16 9:00:00 CDT potassium 2015-07 No Notes: Memori a chloride 0-05 (Same as: l 12:00: KCL) Eliot Infuse over 2 hours. Furosemide 2015-07 Yes 20 mg = 1 Me moria 20 MG Oral 0-05 tab, PO, l Tablet 11:52: Daily, # [place] 00 60 tab, 0 Refill(s) Potassium 2015-07 Yes 40 mEq = 2 Me moria Chloride 20 0-05 tab, PO, l MEQ 11:52: BID, # 60 Eliot Extended 00 tab, 0 Release Refill(s) Tablet potassium 2015-07 No Notes: Memori a chloride 0-05 (Same as: l 11:00: KCL) [place] 00 Infuse over 2 hours. celecoxib 2015-07 No 100 mg, Memor ia 100 MG Oral 0-04 PO, BID, # l Capsule 21:12: 180 cap, 0 Herm jesse [Celebrex] 00 Refill(s) Furosemide 2015-07 No Notes: Memor ia 40 MG Oral 0-04 (Same as: l Tablet 18:29: Lasix) [place] [Lasix] 00 May cause GI upset. Give with food or milk. Potassium 2015-07 No 20 mEq, 1 Mem oria Chloride 20 0-04 tab, l MEQ 16:43: Route: PO, Eliot Extended 00 Drug form: Release ERTAB, Tablet Daily, Dosing Weight 90.909, kg, Priority: NOW, Start date: 04/05/16 11:43:00 CDT, Duration: 30 day, Stop date: 05/05/16 9:00:00 CDT Furosemide 2015-07 No 20 mg, Memor ia 20 MG Oral 0-04 Route: PO, l Tablet 16:43: Drug form: Megan nn [Lasix] 00 TAB, Daily, Dosing Weight 90.909, kg, Priority: NOW, Start date: 04/05/16 11:43:00 CDT, Duration: 30 day, Stop date: 05/05/16 9:00:00 CDT potassium 2015-07 No Notes: Memori a chloride 0-04 (Same as: l 14:00: K-Dur 20) [place] 00 "Do Not Crush" With food and full glass of water potassium 2015-07 No Notes: Memori a chloride 0-04 (Same as: l 08:24: KCL) [place] 00 Infuse over 2 hours. Lasix 2015-07 No Notes: Memoria 0-03 (Same as: l 22:00: Lasix) [place] 00 MEDICATION WASTE Product Size: 40 mg Product Wasted: ___ mg iodixanol 2015-07 No Notes: Memori a 0-03 (Same as: l 19:50: Visipaque) . WASTE: F/P - Black; E - Municipal Trash Bin Albuterol 2015-07 No Notes: Memori a 0.833 MG/ML 0-03 (Same as: l / 17:54: Duoneb) Ipratropium 00 [place] 0.167 MG/ML Inhalant Solution [DuoNeb] Acetaminoph 2015-07 No Notes: Do M emoria en 325 MG / 0-03 not exceed l Hydrocodone 16:53: 4gm/day of Bitartrate acetaminop 10 MG Oral hen. Tablet (Same as: [Pelican Pelican 10/325] 325/10) Ativan 2015-07 No Notes: Memoria 0-03 (Same as: l 16:34: Ativan) Robaxin 2015-07 No Notes: Memoria 0-03 (Same l 14:00: as:Robaxin ) tramadol 2015-07 Yes 50 mg = 1 Manjinder nasir hydrochlori 0-03 tab, PO, l de 50 MG 10:33: Q4H, PRN Megan nn Oral Tablet 00 Pain Score [Ultram] 1-3, X 7 day, # 42 tab, 0 Refill(s) senna 8.6 2015-07 Yes 8.6 mg = 1 Me moria mg oral 0-03 tab, PO, l tablet 10:33: Q12H, X 30 Megan nn 00 day, # 60 tab, 0 Refill(s) Docusate 2015-07 Yes 100 mg = 1 Mem oria Sodium 100 0-03 cap, PO, l MG Oral 10:33: Q12H, # 60 Herm jesse Capsule 00 cap, 0 Refill(s) methocarbam 2015-07 Yes 750 mg = 1 Memoria ol 750 mg 0-03 tab, PO, l oral tablet 10:33: QID, X 30 H ermann 00 day, # 120 tab, 0 Refill(s) Acetaminoph 2015-07 No Notes: Do M emoria en 325 MG / 0-03 not exceed l Hydrocodone 10:31: 4gm/day of Eliot Bitartrate 00 acetaminop 10 MG Oral hen. Tablet (Same as: [Pelican Pelican 10/325] 325/10) tramadol 2015-07 No Notes: Not Mem oria hydrochlori 0-03 to exceed l de 50 MG 10:31: 400mg/day. Her reed Oral Tablet 00 (Same As: [Ultram] Ultram) remove 2015-07 No Notes: Memoria patch 0-03 Remove l 02:00: patch 12 Eliot 00 hours after applicatio n each day. heparin 2015-07 No Notes: Memoria sodium, 0-02 porcine l porcine 21:00: heparin [place] 2500 UNT/ML 00 Injectable Solution Lidocaine 2015-07 No Notes: Memori a Hydrochlori 0-02 Apply only l de 0.05 14:00: once for Omer n MG/MG 00 up to 12 Transdermal hours in a Patch 24-hour [Lidoderm] period (12 hours on and 12 hours off). (Same as: Lidoderm) "Remove old patch before applicatio n of new patch" phenol 2015-07 No Notes: Memoria 0-01 Chlorasept l 15:30: ic [place] (Same as: Chlorasept ic, Sore Throat [place]) WASTE: F/P - Black; E - Municipal Trash Bin Prinivil 2015-07 No Notes: Memoria 0-01 (Same as: l 14:00: Prinivil, Zestril) atorvastati 2015-07 No Notes: Manjinder nasir n 0-01 (Same As: l 14:00: Lipitor) MaxEPA 2015-07 No Notes: Memoria 0-01 (Same as: l 14:00: MaxEPA, [place] 3 fish oil ) Non-Formul carisa Drug Microzide 2015-07 No Notes: Memori a 0-01 (Same as: l 14:00: Microzide) influenza 2015-07 No Notes: Memori a virus 0-01 (Same as: l vaccine, 14:00: Fluzone Omer n inactivated 00 Quadrivale nt, Fluarix Quadrivale nt) For 3 years of age and older (0.5 mL IM) Shake well before use omega-3 2015-07 No 350 mg, Memoria polyunsatur 0-01 Route: PO, l ated fatty 14:00: Daily, Megan nn acids 00 Dosing Weight 90.909, kg, Start date: 04/02/16 9:00:00 CDT, Duration: 30 day, Stop date: 05/01/16 9:00:00 CDT tiotropium 2015-07 No Notes: Memor ia 0.018 0-01 (Same As: l MG/ACTUAT 14:00: Spiriva) Herm jesse Inhalant 00 Powder [Spiriva] multivitami 2015-07 No Notes: Manjinder nasir n 0-01 (Same l 14:00: as:Thera) WASTE: F/P - Black; E - Municipal Trash Bin Hydrochloro 2015-07 No 1 tab, Manjinder nasir thiazide 0-01 Route: PO, l 12.5 MG / 14:00: Drug Form: Luther hernandez Lisinopril 00 TAB, 20 MG Oral Dosing Tablet Weight 90.909, kg, Daily, Start date: 04/02/16 9:00:00 CDT, Duration: 30 day, Stop date: 05/01/16 9:00:00 CDT Robaxin 2015-07 No Notes: Memoria 0-01 (Same l 14:00: as:Robaxin ) Furosemide 2015-07 No Notes: Memor ia 20 MG Oral 0-01 (Same as: l Tablet 14:00: Lasix) Fluoxetine 2015-07 No Notes: Memor ia 0-01 (Same as: l 14:00: Prozac, Sarafem) Fenofibrate 2015-07 No Notes: Manjinder nasir 145 MG Oral 0-01 (Same as: l Tablet 14:00: Tricor) Dilaudid 2015-07 No Notes: Memoria 0-01 (Same as: l 11:41: Dilaudid) Acetaminoph 2015-07 No Notes: Do M emoria en 325 MG / 0-01 not exceed l Hydrocodone 11:40: 4gm/day of Bitartrate acetaminop 10 MG Oral hen. Tablet (Same as: [Pelican Pelican 10/325] 325/10) Famotidine 2015-07 No Notes: Memor ia 0-01 (Same as: l 02:00: Pepcid) Can be dilute in 5-10cc NS IVP: Slow IV push over at least 2 minutes. Acetaminoph 2015-07 No Notes: Manjinder nasir en 0- Infuse l 02:00: over 15 minutes Do not exceed 4gm/day of acetaminop hen MEDICATION WASTE Product Size: 1000 mg Product Wasted: ___ mg Saline 2015-07 No Notes: Memoria Flush 0.9% 0-01 Same as: l 02:00: BD Posiflush Sterile Docusate 2015-07 No Notes: Memoria 0- (Same as: l 02:00: Colace) (Do Not Crush) sennosides, 2015-07 No Notes: Manjinder nasir SHELTER 0- (Same as: l 02:00: Senokot) carvedilol No Notes: Memor ia 9-30 Give with l 22:00: food. [place] 00 (Same As: Coreg) Folic Acid No Notes: Memor ia -30 (Same as: l 22:00: Folvite) ceFAZolin No Notes: Memori a (SCIP) + 04-01 (Same As: l sodium 21:00: Ancef, Eliot chloride 00 Kefzol) 0.9% INJ 100 mL MEDICATION WASTE Product Size: 1000 mg Product Wasted: ___ mg ropinirole No Notes: Memor ia -30 (Same as: l 19:06: Requip) Dexamethaso No Notes: Manjinder nasir ne 04-01 Concentrat l 19:00: ion: 4mg/ml Robaxin No Notes: Memoria 9-30 (Same l 18:51: as:Robaxin ) Robaxin No Notes: Memoria 30 (Same l 18:11: as:Robaxin ) Dexamethaso No 10 mg, Manjinder nasir ne 04-01 Route: l 18:06: IVP, ONCE, Dosing Weight 90.909, kg, Priority: NOW, Start date: 04/01/16 13:06:00 CDT, Stop date: 04/01/16 13:06:00 CDT Ofirmev 0 No or = 50 Memori a 9-30 kg, Start l 17:13: date: Eliot 00 04/01/16 12:13:00 CDT Ondansetron No Notes: Manjinder nasir 9-30 (Same as: l 17:11: Zofran) MEDICATION WASTE Product Size: 4 mg Product Wasted: ___ mg Flumazenil No Notes: Memor ia -30 (Same as: l 17:11: Romazicon) Naloxone No Notes: Memoria 30 Same as l 17:11: Narcan Hydromorpho No 0.2 mg, Mem oria ne 30 Route: l 17:11: IVP, Eliot 00 Q5Min, Dosing Weight 90.909, kg, PRN Pain Score 7-10, Start date: 04/01/16 12:11:00 CDT, Duration: 4 doses or times, Stop date: Limited # of times Dilaudid No Notes: Memoria 30 (Same as: l 17:03: Dilaudid) Labetalol No 10 mg, 2 Manjinder nasir 9-30 mL, Route: l 17:00: IVP, Drug form: INJ, Q15Min, Dosing Weight 90.909, kg, PRN Hypertensi on, Start date: 04/01/16 12:00:00 CDT, Duration: 3 doses or times, Stop date: 04/02/16 17:00:00 CDT Hydralazine No Notes: Manjinder nasir 9-30 (Same as: l 17:00: Apresoline ) Push over 5 minutes Robaxin No Notes: Memoria 9-30 (Same l 16:59: as:Robaxin ) Sodium No 1,000 mL, Memori a Chloride 930 Rate: 75 l 0.154 16:58: ml/hr, MEQ/ML 00 Infuse Injectable over: 13.3 Solution hr, Route: IV, Dosing Weight 90.909 kg, Total Volume: 1,000, Start date: 04/01/16 11:58:00 CDT, Duration: 30 day, Stop date: 05/01/16 11:57:00 CDT Dextrose No 6.25 gm, Memor ia 50% Syringe 04-01 12.5 mL, l 16:58: Route: [place] 00 IVP, Drug Form: INJ, Dosing Weight 90.909, kg, PRN, PRN Abnormal Lab Result, Start date: 04/01/16 11:58:00 CDT, Duration: 30 day, Stop date: 05/01/16 11:57:00 CDT Regular No 60 Memoria Insulin, -30 units) l Human 100 16:58: WASTE: F/P He rmann UNT/ML 00 - Black; E Injectable - Solution Municipal Trash Bin Stable for 28 days at room temperatur e Expires in days from ____Date Saline No Notes: Memoria Flush 0.9% 04-01 Same as: l 16:58: BD Posiflush Sterile Ondansetron No Notes: Manjinder nasir 04-01 (Same as: l 16:58: Zofran) MEDICATION WASTE Product Size: 4 mg Product Wasted: ___ mg Bisacodyl No Notes: Memori a 04-01 (Same As: l 16:58: Dulcolax, Eliot 00 Bisco-Lax) Acetaminoph No Notes: Do M emoria en 325 MG / 04-01 not exceed l Hydrocodone 16:58: 4gm/day of Eliot Bitartrate 00 acetaminop 10 MG Oral hen. Tablet (Same as: Pelican 325/10) Morphine No 2 mg, Memoria 04-01 Route: l 16:58: IVP, Q1H, Dosing Weight 90.909, kg, PRN Pain Score 7-10, Start date: 04/01/16 11:58:00 CDT, Duration: 30 day, Stop date: 05/01/16 11:57:00 CDT Ancef 2016-0 No 1 gm, Memoria 04-01 Route: l 16:05: IVPB, Drug form: INJ, ONCE, Dosing Weight 90.909, kg, Start date: 04/01/16 11:05:00 CDT, Stop date: 04/01/16 11:05:00 CDT bupivacaine 2015-0 No Notes: Manjinder nasir liposome 04-01 (Same as: l 15:05: Exparel) [place] 00 NOT FOR IV use Postoperat willard analgesia: Infiltrati on (local): Dose is based on surgical site and volume required to cover the area (in general, the maximum total dose is 266 mg). Bunionecto my: 7 mL into the tissues surroundin g the osteotomy and 1 mL into the subcutaneo us tissue of the surgical site (total dose = 8 mL [106 mg]) Hemorrhoid ectomy: 30 mL (20 mL vial diluted with 10 mL NS) divided and administer ed as 6 injections of 5 mL each (total dose = 30 mL [266 mg]) Ancef 2015-0 No 2 gm, Memoria 04-01 Route: l 13:15: IVPB, Drug Eliot 00 form: INJ, ONCE, Dosing Weight 90.909, kg, Start date: 04/01/16 8:15:00 CDT, Duration: 1 doses or times, Stop date: 04/01/16 8:15:00 CDT, Surgical Prophylaxi s Only; For patients < 120 kg Lactated 2015- No 1,000 mL, Manjinder nasir Ringers 04-01 Rate: 40 l 1,000 mL 11:00: ml/hr, Eliot 00 Infuse over: 25 hr, Route: IV, Dosing Weight 90.909 kg, Total Volume: 1,000, Start date: 04/01/16 6:00:00 CDT, Duration: 30 day, Stop date: 05/01/16 5:59:00 CDT Vital Signs Vital Name Observation Time Observation Value Comments Source Systolic (mm Hg) 2016-04-06 18:00:00 Manjinder rial [place] Diastolic (mm Hg) 2016-04-06 18:00:00 Mem orial [place] Respitory Rate 2016-04-06 18:00:00 Memori al [place] Respitory Rate 2016-04-06 17:00:00 Memori al [place] Systolic (mm Hg) 2016-04-06 17:00:00 Manjinder rial [place] Diastolic (mm Hg) 2016-04-06 17:00:00 Mem orial [place] Respitory Rate 2016-04-06 16:00:00 Memori al [place] Systolic (mm Hg) 2016-04-06 16:00:00 Manjinder rial [place] Diastolic (mm Hg) 2016-04-06 16:00:00 Mem orial [place] Temperature Oral (F) 2016-04-06 13:11:00 98.0 F [facility] [place] Temperature Oral (F) 2016-04-06 08:00:00 98.1 F [facility] [place] Temperature Oral (F) 2016-04-06 04:00:00 97.9 F [facility] [place] Heart Rate 2016-04-04 20:00:00 [facility] [place] Heart Rate 2016-04-04 17:35:00 [facility] [place] Heart Rate 2016-04-04 12:58:00 [facility] [place] Weight 2016-04-01 23:43:00 [facility] [place] Height 2016-04-01 11:16:00 157.48 cm [facility] [place] BMI Calculated 2016-04-01 11:16:00 Memori al [place] Weight 2016-04-01 11:16:00 [facility] [place] Weight 2016-03-28 20:53:00 [facility] [place] BMI Calculated 2016-03-28 20:53:00 Memori al [place] Height 2016-03-28 20:53:00 157.48 cm [facility] [place] Procedures Procedure Date / Time Performed Performing Clinician Toshia lisbet Laminectomy with spinal 2016-04-01 05:00:00 Manjinder rial [place] fusion Cervical spinal fusion [facility] [place] Gallbladder operation [facility] H ermann Laparoscopic adjustable [facility] [place] gastric banding Operation [facility] [place] Shoulder joint operations [facility] [place] Tonsillectomy [facility] [place] Vein reconstruction [facility] Encounters Start End Encounter Admission Attending Care Care Encounter Source Date/Time Date/Time Type Type Clinicians Facility Department ID 2020-09-24 2020-09-24 Letter GERMAN Diaz [id number] 00:00:00 00:00:00 (Out) Aliyah HE [id number] [facility] [id number] 2020-09-24 2020-09-24 Telephone Maksim, [facility] [id number] 00:00:00 00:00:00 Layla Gray [id number] [place] [id number] Professio [id number] nal 059 [facility] 2020-09-23 2020-09-23 Laboratory Only, [facility] [id number] 13:54:59 14:09:59 Only Test [place] [id number] [place] [id number] [place] [id number] 2020-09-21 2020-09-21 Outpatient [facility] [id number] [facility]:00 kes - [facility] Outpati ent Clinics 2020-09-17 2020-09-17 Outpatient [facility] [id number] [facility]00 kes - [facility] Outpat[facility] Clinics 2020-09-15 2020-09-15 Orders Doctor GERMAN [id number] 00:00:00 00:00:00 Only Unassigned, YING [id number] [facility] [id number] 2020-09-14 2020-09-14 Telephone [facility], [facility] [id number] 00:00:00 00:00:00 Layla Isaac [id number] [place] [id number] [facility] [id number] nal 059 [facility] 2020-09-14 2020-09-14 Orders Doctor GERMAN [id number] 00:00:00 00:00:00 Only Unassigned, YING [id number] [facility] [id number] 2020-09-10 2020-09-10 Outpatient [facility] [id number] [facility]00 [facility]ics 2020-09-01 2020-09-01 Office [facility] [id number] 14:21:14 15:04:24 Visit Layla Gray [id number] [place] [id number] gretchen [id number] [address] 2020-05-07 2020-05-07 [facility] [id number] [facility] 2020-04-13 2020-04-13 [facility] [id number] [facility] 2020-03-16 2020-03-16 [facility] [id number] [facility] 10:52:00 10:52:00 [place] [employer] [facility] - [facility] l Medicine Outpati ent Clinics 2020-03-06 2020-03-06 [facility] [id number] [facility] 10:09:00 10:09:00 [place] [employer] s - Drive [facility] l Medicine Outpati ent Clinics 2020-03-05 2020-03-05 [facility] [id number] 11:51:00 11:51:00 [place] [employer] s - Drive [facility] Medicine Outpati ent Clinics 2020-02-05 2020-02-05 [facility] [id number] 13:00:00 13:00:00 [place] [facility] s - Drive [facility] l Medicine Outpati ent Clinics 2020-02-05 2020-02-05 [facility] [id number] 13:00:00 13:00:00 [place] [employer] [facility] - Drive [facility] Medicine Outpati ent Clinics 2020-01-09 2020-01-09 [facility] [id number] 14:26:00 14:26:00 [facility] ent Clinics 2020-01-06 2020-01-06 [facility] [id number] 15:48:00 15:48:00 [place] [employer] - [facility] Medicine Medicine Outpati ent Clinics 2019-12-04 2019-12-04 [facility] [id number] 07:12:00 07:12:00 [place] [employer] s - Drive [facility] l Medicine Outpati ent Clinics 2019-11-22 2019-11-22 [facility] [id number] [address] 09:19:00 09:19:00 [place] [employer] s - Drive [facility] Medicine l Medicine Outpati ent Clinics 2019-11-01 2019-11-01 [facility] [id number] 11:46:00 11:46:00 [place] [employer] - [facility] l Medicine Outpati ent Clinics 2019-10-29 2019-10-29 [facility] [id number] 11:16:00 11:16:00 [place] [employer] - [employer] [facility] Medicine Outpati ent Clinics 2019-10-18 2019-10-18 [facility] [id number] 09:30:00 09:30:00 [place] [employer] - [facility] l Medicine Outpati ent Clinics 2019-10-17 2019-10-17 [facility] [id number] [facility] 10:49:00 10:49:00 t [employer] s - [employer] [facility] l Medicine Outpati ent Clinics 2019-10-04 2019-10-04 [facility] [id number] 10:26:00 10:26:00 [place] [employer] s - Drive [facility] Medicine l Medicine Outpati ent Clinics 2019-10-03 2019-10-03 [facility] [id number] 13:45:00 13:45:00 [place] [employer] s - Drive [facility] Medicine l Medicine Outpati ent Clinics 2019-10-02 2019-10-02 [facility] [id number] 10:11:00 10:11:00 t [facility] [address] [employer] - [employer]ed [facility] l Medicine Outpati ent Clinics 2019-09-20 2019-09-20 [facility] [id number] 15:05:00 15:05:00 [place] [address] [place] s - Drive [facility] Medicine l Medicine Outpati ent Clinics 2019-09-12 2019-09-12 [facility] [id number] 11:15:00 11:15:00 [place] [employer] s - Drive [facility] Medicine l Medicine Outpati ent Clinics 2019-08-30 2019-08-30 [facility] [id number] 15:13:00 15:13:00 [place] [employer] s - Drive [facility] Medicine l Medicine Outpati ent Clinics 2019-06-07 2019-06-07 [facility] [id number] 15:51:00 15:51:00 [place] [employer] s - Drive [facility] Medicine l Medicine Outpati ent Clinics 2019-04-01 2019-04-01 Outpatient [facility] [place] [id number] [facility] 15:30:00 15:30:00 [place] [address] [facility] Medicine l Medicine Outpati ent Clinics 2019-01-28 2019-01-28 [facility] [id number] [address] 13:59:00 13:59:00 [place] - [facility] Medicine l Medicine Outpati ent Clinics 2019-01-12 2019-01-12 [facility] [id number] 10:26:00 10:26:00 [place] [facility] Medicine l Medicine Outpati ent Clinics 2018-12-19 2018-12-19 [facility] [id number] [address] 11:30:00 11:30:00 [place] [address] [facility] Medicine l Medicine Outpati ent Clinics 2018-11-12 2018-11-12 [facility] [id number] [facility] 11:20:00 11:20:00 [place] [facility] Medicine l Medicine Outpati ent Clinics 2018-09-26 2018-09-26 [facility] [id number] 15:59:00 15:59:00 [place] - [facility] Medicine l Medicine Outpati ent Clinics 2018-08-06 2018-08-06 Outpatient Glynn Makit [id number] 13:45:00 13:45:[address] [place] [address] [employer] [place] - Drive [facility] Medicine l Medicine Outpati ent Clinics 2018-04-17 2018-04-17 [place] [id number] 15:41:00 15:41:00 t [facility] [address] [place] s - Road [facility] Medicine l Medicine Outpati ent Clinics 2018-01-31 2018-01-31 Outpatient Glynn Makit [id number] [address] 13:15:00 13:15:00 t 8aweek s - Drive [facility] Medicine l Medicine Outpati ent Clinics 2018-01-16 2018-01-16 Outpatient Glynn Makit [id number] 14:00:00 14:00:00 t 8aweek s - Drive [facility] Medicine Medicine Outpati ent Clinics 2016-07-05 2016-07-05 Outpatient Tung [facility] [id number] 13:02:00 23:59:00 Jorge Angel 2016-05-16 2016-05-16 Outpatient Tung [facility] [id number] 13:44:00 23:59:00 Jorge Angel 2016-04-01 2016-04-06 Outpatient Tung [facility] [id number] 05:10:00 14:48:00 Jorge Angel Results Test Description Test Time Test Comments Results Result Comments Source BASIC METABOLIC PANEL 2020-09-29 06:22:00 Test Item Value Reference Range Interpretation Comme nts SODIUM (test code = NA) 143 mmol/L 136-145 N POTASSIUM (test code = K) 4.7 mmol/L 3.5-5.1 N CHLORIDE (test code = CL) 103.0 mmol/L 98-107 N CARBON DIOXIDE (test code = 30.2 mmol/L 21-32 N CO2) GLUCOSE (test code = GLU) 157 mg/dL 70-110 H BLOOD UREA NITROGEN (test code 33 mg/dL 7-18 H = BUN) GLOMERULAR FILTRATION RATE 46.8 >60 U nit of measure: (test code = GFR) mL/min/1.7 3 m4Pjjgitjfd Range:Healthy A dults >90 mL/min/1.73 m2 For Chronic Kidney Disease: Stage II Mi ld Decrease in GFR 60-9 0 Stage III Moderate Decrease in GFR 30-59 Stage IV Severe Decrease in GFR 15-29 Stage V Kidney Failure <15 CREATININE (test code = CREAT) 1.13 mg/dL 0.55-1.30 N CALCIUM (test code = CA) 8.6 mg/dL 8.2-10.1 N HGB [id number] 05:57:00 Test Item Value Reference Range Interpretation Comments HEMOGLOBIN (test code = HGB) 11.4 g/dL 12-16 L HEMATOCRIT (test code = HCT) 35.5 % 37-47 L SPECIMEN COMMENT: POD #1PROTHROMBIN [id number] 17:08:00 Test Item Value Reference Range Interpretation Comments PROTHROMBIN TIME 11.6 secs 10.1-12.5 N PATIENT (test code = PTP) INTERNATIONAL NORMAL 1.02 <2.0 RECOMME NDED THERAPEUTIC RATIO (test code = RANGE FOR ORAL INR) ANTICOAGULANTTR EATMENT: CONDI TION INRProphylaxis of venous thrombos is in 2.0 - 3.0 high-risk medic al or surgical patientsTreatme nt of venous thrombos is 2.0 - 3.0Prevention o f embolism 2.0 - 3.0Prevention o f recurrent embol ism, or 3.0 - 4. 5 patients with mechanical pros thetic intravascular v womack IS PATIENT ON ANTICOAGULANTS ? YLIST ANTICOAGULANT/ANTI PLT MEDICATION : OtherHas Lab been notified if Patient is on Heparin Drip? NOIf Yes, order CBC, OCCULT BLOOD, PT every other day NTHROMBOPLASTIN TIME [id number] 17:08:00 Test Item Value Reference Range Interpretation Comments PTT ACTIVATED (test code = APTT) 34.0 secs 24.9-37.0 N IS PATIENT ON ANTICOAGULANTS ? YLIST ANTICOAGULANT/ANTI PLT MEDICATION : OtherHas Lab been notified if Patient is on Heparin Drip? NOIf Yes, order CBC, OCCULT BLOOD, PT every other day NCOMPREHENSIVE METABOLIC [id number] 17:08:00 Test Item Value Reference Range Interpretation Comments SODIUM (test code = NA) 138 mmol/L 136-145 N POTASSIUM (test code = 4.2 mmol/L 3.5-5.1 N K) CHLORIDE (test code = 99.0 mmol/L 98-107 N CL) CARBON DIOXIDE (test 31.2 mmol/L 21-32 N code = CO2) GLUCOSE (test code = 104 mg/dL 70-110 N GLU) BLOOD UREA NITROGEN 33 mg/dL 7-18 H (test code = BUN) GLOMERULAR FILTRATION 46.3 >60 Unit o f measure: RATE (test code = GFR) mL/mi n/1.73 z0Pmsavicpd Range:Healthy Adults >90 mL/min/1.73 m2 For Chronic Kidney Disease: St age II Mild Decrease in GFR 60-90 St age III Moderate Decrease in GFR 30-59 Stage IV Severe Decre ase in GFR 15- 29 Stage V Kidney Failure <15 CREATININE (test code = 1.14 mg/dL 0.55-1.30 N CREAT) TOTAL PROTEIN (test 7.0 g/dL 6.4-8.2 N code = PROT) ALBUMIN (test code = 3.7 g/dL 3.4-5.0 N ALB) GLOBULIN (test code = 3.3 g/dL 2.2-4.2 N GLOB) ALBUMIN/GLOBULIN RATIO 1.1 0.7-2.0 N (test code = A/G) CALCIUM (test code = 9.7 mg/dL 8.2-10.1 N CA) BILIRUBIN TOTAL (test 0.60 mg/dL 0.2-1.00 N code = BILT) SGOT/AST (test code = 18.0 U/L 15-37 N AST) SGPT/ALT (test code = 22.0 U/L 12-78 N Please note new ALT) normal range. ALKALINE PHOSPHATASE 113 U/L 46-116 N TOTAL (test code = ALKP) CBC W/AUTO [id number] 16:45:00 Test Item Value Reference Range Interpretation Comments WHITE BLOOD CELL (test code = WBC) 11.0 K/mm3 5.8-11.0 N RED BLOOD CELL (test code = RBC) 4.38 M/mm3 4.2-5.4 N HEMOGLOBIN (test code = HGB) 12.9 g/dL 12-16 N HEMATOCRIT (test code = HCT) 40.3 % 37-47 N MEAN CELL VOLUME (test code = MCV) 92 fL 80-98 N MEAN CELL HGB (test code = MCH) 29.5 pg 27-34 N MEAN CELL HGB CONCENTRATION (test 32.0 g/dL 30.8-34.1 N code = MCHC) RED CELL DISTRIBUTION WIDTH (test 15.2 % 11-16 N code = RDW) PLT (test code = PLT) 334 K/mm3 130-400 N MEAN PLATELET VOLUME (test code = 8.9 fL 8.9-12.1 N MPV) NEUTROPHIL % (test code = NT%) 67.9 % 45-70 N LYMPHOCYTE % (test code = LY%) 20.4 % 20-40 N MONOCYTE % (test code = MO%) 7.3 % 3-10 N EOSINOPHIL % (test code = EO%) 3.6 % 1-5 N BASOPHIL % (test code = BA%) 0.5 % 0.0-1.1 N NEUTROPHIL # (test code = NT#) 7.45 K/mm3 2.00-7.50 N LYMPHOCYTE # (test code = LY#) 2.24 K/mm3 1.50-4.00 N MONOCYTE # (test code = MO#) 0.80 K/mm3 0.2-0.8 N EOSINOPHIL # (test code = EO#) 0.40 K/mm3 0.04-0.4 N BASOPHIL # (test code = BA#) 0.05 K/mm3 0.02-0.10 N MANUAL DIFF REQUIRED (test code = NO MANUAL DIFF MDIFF) NUCLEATED RED BLOOD CELL (test 0 % 0-0 N code = NRBC) - XR CHEST 1 [id number] 16:35:00 Patient Name: RUTHY BEST Unit No: [id number] EXAMS: CPT CODE: [id number] XR CHEST 1 V 51129 IMAGES PROVIDED: One frontal view of the chest is provided. COMPARISON: None FINDINGS: The cardiac silhouette is mildly enlarged. Pulmonary vasculature is engorged. No focal consolidation is visualized. No pneumothorax or pleural effusion. Bilateral shoulder arthroplasties are partially visualized. IMPRESSION: Findings suggestive of CHF/volume overload. at 1635 Reported and signed by: Rick Serrano M.D. CC: Aida Meredith MD; Geovany Olivera MD Technologist: JESSICA CHAND RT(R) Transcribed D/ (5732) [facility] NAME: RUTHY BEST [address] [facility] PHYS: Aida Cai : 1945 AGE: 73 SEX: F [place], [place] [address] LOC: Y.306 A PHONE #: [phone] EXAM DATE: 05/15/2019 STATUS: DIS IN FAX #: [phone] RAD #: D/C DT 05/16/2019 PAGE 1 Signed Report PatientName: RUTHY BEST Unit No: [id number] EXAMS: CPT CODE: [id number] XR CHEST 1 V 32023 <Continued> Orig Print D/T: S: 05/16/2019 (6647) [facility] NAME: RUTHY BEST [address] [place] [address] PHYS: PADMAJA - Aida Meredith : 1945 AGE: 73 SEX: F [place], [place] [address] LOC: Y.306 A PHONE #: [phone] EXAM DATE: 05/15/2019 STATUS: DIS IN FAX #: [phone] RAD #: D/C DT 05/16/2019 PAGE 2 Signed Report- XR SHOULDER 1 V [id number] 14:01:00 Patient Name: RUTHY BEST Unit No: [id number] EXAMS: CPT CODE: [id number] XR SHOULDER 1 [place] [address] IMAGES PROVIDED: Single AP view of the left shoulder FINDINGS: Postoperative changes of left reverse total shoulder arthoplasty demonstrated without evidenceof immediate complication. No acute fracture. Visualized lung is clear. IMPRESSION: Left reverse total shoulder arthoplasty without immediate complication. at 1401 Reported and signed by: Rick Serrano M.D. CC: Geovany Olivera MD Technologist: MIGUELITO FELIZ (RT.R) Transcribed D/ (9918) LesleyDerrick [facility] NAME: RUHTY BEST [address] [facility] PHYS: Geovany Bee : 1945 AGE: 73 SEX: F [place], [place] [address] LOC: Y.306 A PHONE #: [phone] EXAM DATE: 05/15/2019 STATUS: ADM IN FAX #: [phone] RAD #: D/C DT PAGE 1 Signed Report Patient Name: RUTHY BEST Unit No: [id number] EXAMS: CPT CODE: [id number] XR SHOULDER 1 VLT 78399 <Continued> Orig Print D/T: S: 05/16/2019 (1404) [facility] NAME: RUTHY BEST [address] [facility] PHYS: Geovany Bee : 1945 AGE: 73 SEX: F [place], [place] [address] LOC: Y.306 A PHONE #: [phone] EXAM DATE: 05/15/2019 STATUS: ADM IN FAX #: [phone] RAD #:D/C DT PAGE 2 Signed ReportCBC W/AUTO [id number] 05:53:00 Test Item Value Reference Range Interpretation Comments WHITE BLOOD CELL (test code = 13.6 K/mm3 5.8-11.0 H WBC) RED BLOOD CELL (test code = RBC) 3.80 M/mm3 4.2-5.4 L HEMOGLOBIN (test code = HGB) 10.7 g/dL 12-16 L HEMATOCRIT (test code = HCT) 33.8 % 37-47 L MEAN CELL VOLUME (test code = 89 fL 80-98 N MCV) MEAN CELL HGB (test code = MCH) 28.2 pg 27-34 N MEAN CELL HGB CONCENTRATION (test 31.7 g/dL 30.8-34.1 N code = MCHC) RED CELL DISTRIBUTION WIDTH (test 13.3 % 11-16 N code = RDW) PLT (test code = PLT) 284 K/mm3 130-400 N MEAN PLATELET VOLUME (test code = 9.0 fL 8.9-12.1 N MPV) NEUTROPHIL % (test code = NT%) 74.9 % 45-70 H LYMPHOCYTE % (test code = LY%) 15.4 % 20-40 L MONOCYTE % (test code = MO%) 8.6 % 3-10 N EOSINOPHIL % (test code = EO%) 0.4 % 1-5 L BASOPHIL % (test code = BA%) 0.3 % 0.0-1.1 N NEUTROPHIL # (test code = NT#) 10.15 K/mm3 2.00-7.50 H LYMPHOCYTE # (test code = LY#) 2.08 K/mm3 1.50-4.00 N MONOCYTE # (test code = MO#) 1.17 K/mm3 0.2-0.8 H EOSINOPHIL # (test code = EO#) 0.05 K/mm3 0.04-0.4 N BASOPHIL # (test code = BA#) 0.04 K/mm3 0.02-0.10 N MANUAL DIFF REQUIRED (test code = NO MANUAL DIFF MDIFF) NUCLEATED RED BLOOD CELL (test 0 % 0-0 N code = NRBC) SPECIMEN COMMENT: POD #1- CT UP EXTREM W/O CONT [id number] 08:39:00 Patient Name: RUTHY BEST Unit No: [id number] EXAMS: CPT CODE: [id number] [place] EXTREM W/[place] [address] [place] OF THE LEFT SHOULDER WITH SAGITTAL [...] with ACR practice standards and adherence to md psychiatry's recommendations. Degenerative changes are present as noted. The rotator cuff is as described. No loose bodies are seen. AC joint degenerative change is present. Electr onically Signed by Ran Cedeño MD on 04/12/2019 at 0839 Reported and signed by: Ran Cedeño MD CC: Geovany Olivera MD Technologist: Pankaj Goodman,(R) CTDI: DLP: Trnscrpt: 04/12/2019 (0839) LesleyJCL [facility] NAME: RUTHY BEST [address] [facility] PHYS: Geovany Bee : 1945 AGE: 73 SEX: F [place] [address] LOC: Y.RAD PHONE #: [phone] EXAM DATE: 04/11/2019 STATUS: DEP CLI FAX #: [phone] RAD #: D/C DT PAGE 1 Signed Report Patient Name: RUTHY BEST Unit No: [id number] EXAMS: CPT CODE: [id number] CT UP EXTREM W/[place] [address] <Continued> Orig Print D/T: S: 04/12/2019 (0842) [facility] NAME: RUTHY BEST [address] [facility] PHYS: Geovany Bee : 1945 AGE: 73 SEX: F [place] [address] LOC: Y.RAD PHONE #: [phone] EXAM DATE: 04/11/2019 STATUS: DEP CLI FAX #: [phone] RAD #: D/C DT PAGE 2 Signed ReportCBC W/AUTO [id number] 18:23:00 Test Item Value Reference Range Interpretation Comments WHITE BLOOD CELL (test code = WBC) 8.0 K/mm3 5.8-11.0 N RED BLOOD CELL (test code = RBC) 4.37 M/mm3 4.2-5.4 N HEMOGLOBIN (test code = HGB) 12.4 g/dL 12-16 N HEMATOCRIT (test code = HCT) 37.7 % 37-47 N MEAN CELL VOLUME (test code = MCV) 86 fL 80-98 N MEAN CELL HGB (test code = MCH) 28.4 pg 27-34 N MEAN CELL HGB CONCENTRATION (test 32.9 g/dL 30.8-34.1 N code = MCHC) RED CELL DISTRIBUTION WIDTH (test 14.2 % 11-16 N code = RDW) PLT (test code = PLT) 328 K/mm3 130-400 N MEAN PLATELET VOLUME (test code = 9.0 fL 8.9-12.1 N MPV) NEUTROPHIL % (test code = NT%) 60.4 % 45-70 N LYMPHOCYTE % (test code = LY%) 25.7 % 20-40 N MONOCYTE % (test code = MO%) 9.4 % 3-10 N EOSINOPHIL % (test code = EO%) 3.4 % 1-5 N BASOPHIL % (test code = BA%) 0.8 % 0.0-1.1 N NEUTROPHIL # (test code = NT#) 4.83 K/mm3 2.00-7.50 N LYMPHOCYTE # (test code = LY#) 2.05 K/mm3 1.50-4.00 N MONOCYTE # (test code = MO#) 0.75 K/mm3 0.2-0.8 N EOSINOPHIL # (test code = EO#) 0.27 K/mm3 0.04-0.4 N BASOPHIL # (test code = BA#) 0.06 K/mm3 0.02-0.10 N MANUAL DIFF REQUIRED (test code = NO MANUAL DIFF MDIFF) NUCLEATED RED BLOOD CELL (test 0 % 0-0 N code = NRBC) SED [id number] 18:23:00 Test Item Value Reference Range Interpretation Comments SED RATE (test code = SEDW) 25 mm/hr 0-20 H COMPREHENSIVE METABOLIC [id number] 18:17:00 Test Item Value Reference Range Interpretation Comments SODIUM (test code = 140 mmol/L 136-145 N NA) POTASSIUM (test code = 4.4 mmol/L 3.5-5.1 N K) CHLORIDE (test code = 102.0 mmol/L 98-107 N CL) CARBON DIOXIDE (test 31.4 mmol/L 21-32 N code = CO2) GLUCOSE (test code = 97 mg/dL 70-110 N GLU) BLOOD UREA NITROGEN 27 mg/dL 7-18 H (test code = BUN) GLOMERULAR FILTRATION 71.1 >60 Unit o f measure: RATE (test code = GFR) mL/mi n/1.73 [id number] Range:Healthy Adults >90 mL/min/1.73 m2 For Chronic Kidney Disease: St age II Mild Decrease in GFR 60-90 St age III Moderate Decrease in GFR 30-59 Stage IV Severe Decre ase in GFR 15- 29 Stage V Kidney Failure <15 CREATININE (test code 0.79 mg/dL 0.55-1.30 N = CREAT) TOTAL PROTEIN (test 6.7 g/dL 6.4-8.2 N code = PROT) ALBUMIN (test code = 3.5 g/dL 3.4-5.0 N ALB) GLOBULIN (test code = 3.2 g/dL 2.2-4.2 N GLOB) ALBUMIN/GLOBULIN RATIO 1.1 0.7-2.0 N (test code = A/G) CALCIUM (test code = 9.8 mg/dL 8.2-10.1 N CA) BILIRUBIN TOTAL (test 0.50 mg/dL 0.2-1.00 N code = BILT) SGOT/AST (test code = 23.0 U/L 15-37 N AST) SGPT/ALT (test code = 29.0 U/L 12-78 N Please note new ALT) normal range. ALKALINE PHOSPHATASE 108 U/L 46-116 N TOTAL (test code = ALKP) PROTHROMBIN [id number] 17:59:00 Test Item Value Reference Range Interpretation Comments PROTHROMBIN TIME 14.2 secs 10.1-12.5 H PATIENT (test code = PTP) INTERNATIONAL NORMAL 1.26 <2.0 RECOMME NDED THERAPEUTIC RATIO (test code = RANGE FOR ORAL INR) ANTICOAGULANTTR EATMENT: CONDI TION INRProphylaxis of venous thrombos is in 2.0 - 3.0 high-risk medic al or surgical patientsTreatme nt of venous thrombos is 2.0 - 3.0Prevention o f embolism 2.0 - 3.0Prevention o f recurrent embol ism, or 3.0 - 4. 5 patients with mechanical pros thetic intravascular v womack IS PATIENT ON ANTICOAGULANTS ? YLIST ANTICOAGULANT/ANTI PLT MEDICATION : OtherHas Lab been notified if Patient is on Heparin Drip? NOTHROMBOPLASTIN TIME [id number] 17:59:00 Test Item Value Reference Range Interpretation Comments PTT ACTIVATED (test code = APTT) 31.8 secs 24.9-37.0 N IS PATIENT ON ANTICOAGULANTS ? YLIST ANTICOAGULANT/ANTI PLT MEDICATION : OtherHas Lab been notified if Patient is on Heparin Drip? NOCBC W/AUTO DIFF 2019-04-11 17:22:00 Test Item Value Reference Range Interpretation Comments WHITE BLOOD CELL (test code = WBC) 8.0 K/mm3 5.8-11.0 N RED BLOOD CELL (test code = RBC) 4.37 M/mm3 4.2-5.4 N HEMOGLOBIN (test code = HGB) 12.4 g/dL 12-16 N HEMATOCRIT (test code = HCT) 37.7 % 37-47 N MEAN CELL VOLUME (test code = MCV) 86 fL 80-98 N MEAN CELL HGB (test code = MCH) 28.4 pg 27-34 N MEAN CELL HGB CONCENTRATION (test 32.9 g/dL 30.8-34.1 N code = MCHC) RED CELL DISTRIBUTION WIDTH (test 14.2 % 11-16 N code = RDW) PLT (test code = PLT) 328 K/mm3 130-400 N MEAN PLATELET VOLUME (test code = 9.0 fL 8.9-12.1 N MPV) NEUTROPHIL % (test code = NT%) 60.4 % 45-70 N LYMPHOCYTE % (test code = LY%) 25.7 % 20-40 N MONOCYTE % (test code = MO%) 9.4 % 3-10 N EOSINOPHIL % (test code = EO%) 3.4 % 1-5 N BASOPHIL % (test code = BA%) 0.8 % 0.0-1.1 N NEUTROPHIL # (test code = NT#) 4.83 K/mm3 2.00-7.50 N LYMPHOCYTE # (test code = LY#) 2.05 K/mm3 1.50-4.00 N MONOCYTE # (test code = MO#) 0.75 K/mm3 0.2-0.8 N EOSINOPHIL # (test code = EO#) 0.27 K/mm3 0.04-0.4 N BASOPHIL # (test code = BA#) 0.06 K/mm3 0.02-0.10 N MANUAL DIFF REQUIRED (test code = NO MANUAL DIFF MDIFF) NUCLEATED RED BLOOD CELL (test 0 % 0-0 N code = NRBC) SED [id number] 17:22:00 Test Item Value Reference Range Interpretation Comments SED RATE (test code = SEDW) mm/hr 0-20 CHEM [id number] 19:15:009.5[facility] HermannCHE[facility] [id number] 19:15:0094 [facility]annCHEM [id number] 19:15:0026[facility] HermannCHEM PANEL 2016-04-06 19:15:000.55[facility] HermannCHEM [id number] 19:15:0099[facility] HermannCHEM [id number] 19:15:0014.9[facility] HermannCHEM [id number] 19:15:0027[facility]annCHEM [id number] 19:15:002.9[facility] HermannCHEM [id number] 19:15:38143Ixayyxpt HermannCHEM RHETW6661-07-11 19:15:0098 Memorial TzajzfbSCMPELTLVXWQ3844-22-45 08:58:0099[facility] HermannELECTROLYTES 2016-04-06 08:58:002.5[facility] [id number] 08:58:14166Tlyrxgii NkglmanRDYMAQZDLBVS7504-11-57 08:58:0025[facility] BnmvmnvRIVVALNOAWVC2530-45-97 08:58:0093[facility] TretovbTDNFFSAYSLQE4696-98-76 08:58:009.5[facility] RMHFXJBCJKXF1888-56-52 08:58:0014.5[facility] VcsilpeDFSNCADTSCEK8548-26-84 08:58:0093[facility] DamsppuLJHHCSBLTWHJ3934-42-77 08:58:0024[facility] FVCNQHGCTNEF3555-40-16 08:58:000.57[facility] OnlwkzgMZVQMMHFFK8760-94-79 08:58:00 Test Item Value Reference Range Interpretation Comments PT (test code = PT) 15.9 s 12.0-14.7 Memorial FbiehfrPXTBJBQDZF7721-09-15 08:58:001.24[facility] HermannHEMATOLOGY 2016-04-06 08:58:00 Test Item Value Reference Range Interpretation Comments PTT (test code = PTT) 35.2 s 22.9-35.8 Memorial TpuicvgWIJAJFPEVK6286-50-40 08:58:003.67[facility] HermannHEMATOLOGY 2016-04-06 08:58:0010.6[facility] XtpfltmNTDBJVURFK7641-33-52 08:58:008.8[facility] DusmcrgPFCBFPSQYE2800-68-45 08:58:66441Etbvgbob BitbqdxLLLIYLIVPX1469-21-76 08:58:007.5[facility] HamipwqTEXGGJVLRD9434-41-71 08:58:0034.7[facility] HPLXRBJLMJ4786-05-56 08:58:0013.8[facility] ZukfzzrHIOGRHUMLC8508-60-01 08:58:00 82.8[facility] IgnjjanSGXFVANLMN5329-78-32 08:58:00 Test Item Value Reference Range Interpretation Comments MCH (test code = MCH) 28.8 pg 27.0-31.0 Memorial RpuuslrNQPLXEAULU7731-05-58 08:58:0030.4[facility] HermannHEMATOLOGY 2016-04-06 08:58:000.2[facility] XdlzevvDMOTLEMWPX8697-30-70 08:58:005.4[facility] EahqcvyNZBTUOEFEW3113-30-99 08:58:001.1[facility] IespkddFVSFGBMMFD1542-59-10 08:58:002.1[facility] FkyxcioAOLMRNSXCC0357-55-32 08:58:002.1[facility] PXEMZEZGWY3680-91-78 08:58:000.6[facility] MwwlqwhATHQVGHLIH9397-86-01 08:58:00 23.7[facility] XrehzdeZWRIBLEZXO2955-67-00 08:58:0012.4[facility] HermannHEMATOLOGY 2016-04-06 08:58:0061.2[facility] HermannCHEM UBFTU4389-56-47 09:47:001.5[facility] HermannCHEM EHJTB1520-28-70 05:40:0020[facility] HermannCHEM QFLKP3064-28-96 05:40:000.8[facility] HermannCHEM NZRRT7378-59-26 05:40:0031[facility] HermannCHEM PQLOF5382-44-36 05:40:0088[facility] HermannCHEM QQWRS3056-54-40 05:40:006.1 [facility]annCHEM BGEGX4746-86-81 05:40:002.8[facility] HermannCHEM PANEL 2016-04-05 05:40:0027[facility] HermannCHEM CFDYB0186-09-82 05:40:0020[facility] HermannCHEM JBJLG6023-22-31 05:40:000.8[facility] HermannCHEM WZYWG3618-15-45 05:40:003.3[facility] HermannCHEM CFCOZ7580-44-43 05:40:0015.9[facility] HermannCHEM VOHMD9480-03-20 05:40:0033[facility] HermannCHEM FLJPC2327-61-74 05:40:009.1 [facility]annCHEM SZEXW5072-94-03 05:40:002.9[facility] HermannCHEM PANEL 2016-04-05 05:40:74452Rfmlfngt HermannCHEM ZTAGF3988-16-88 05:40:60013Kkixzjgi HermannCHEM TTFFG4408-09-40 05:40:000.70[facility] HermannCHEM MCEJC6076-26-51 05:40:0023[facility] HermannCHEM KTNQD5986-52-44 05:40:88679Vndjoghm Eliot CARDIAC ZIBSVME1856-07-10 03:24:000.092[facility]annCARDIAC CXIPZGH1474-01-65 03:24:000.39[facility]annCARDIAC IBBPJAC5737-11-52 03:24:0042[facility] CARDIAC VXWHMYE2215-79-43 23:47:000.153[facility]annCARDIAC BCUYHWR4495-28-68 23:47:000.42[facility]annCARDIAC HOZBXPN9191-73-53 23:47:0044[facility] CARDIAC XHRVIRI3721-37-55 19:56:000.149[facility]annCARDIAC MKYWIWZ1367-48-41 19:56:000.44[facility]annCARDIAC STLYISJ2882-38-28 19:56:0046[facility] UWYPFDQHFG1831-16-00 17:32:000.1[facility] IzfzwqyEBJBAHOUPN9586-14-68 17:32:00 14.6[facility] PonpmjtGIIMXTOWET4686-26-60 17:32:004.5[facility]annHEMATOLOGY 2016-04-01 17:32:004.2[facility] XhopuxtXIOSFWQXAE1654-11-43 17:32:000.9[facility] FwjeyqjHUWLNBSUZD4635-73-73 17:32:000.4[facility] FwrmmoyIIWJLTTUXD4846-35-49 17:32:000.3[facility] DiiezwqLAJGZOLPFW5916-69-09 17:32:000.9[facility] AEYKHYYMZJ6268-75-93 17:32:0074.1[facility] BmxgvuhPTICISPCLX0422-81-56 17:32:00 6.2[facility] DheaxctEIXAKEBXOI9165-75-54 17:32:006.7[facility]annHEMATOLOGY 2016-04-01 17:32:94712Pwwtdrmw XeyrwrqKGDYGCWEHH3968-73-82 17:32:0031.2[facility] YmnniliUVLTYWKKHT7938-97-03 17:32:0010.5[facility] MbbuzzuYVYKPCKWKG1058-99-89 17:32:0084.5[facility] HqzyfkgWWMCWBNMFH7585-52-24 17:32:0033.6[facility] KEZLELWFLR6962-80-88 17:32:00 Test Item Value Reference Range Interpretation Comments MCH (test code = MCH) 28.4 pg 27.0-31.0 [facility] XubudzdALMVJBEBSH7763-34-32 17:32:0013.5[facility]annHEMATOLOGY 2016-04-01 17:32:006.0[facility] VytwbmfWTMZKFWVJC6660-03-79 17:32:003.69[facility]annBLOOD BANK BEDQZGA4816-17-51 11:02:00Negative (04/01/16 6:02 AM)[facility]annCHEM HOBYJ0767-51-71 21:25:003.5[facility]annCHEM BFGQN0475-55-93 21:25:0028[facility]annCHEM TSUQU7284-25-89 21:25:0022[facility]annCHEM NVVKZ2836-10-26 21:25:006.2[facility]annCHEM HEXNI1677-48-07 21:25:0037 [facility]annCHEM SNVGT8407-83-80 21:25:000.5[facility]annCHEM PANEL 2016-03-28 21:25:002.7[facility]annCHEM FBCYA7631-24-78 21:25:001.3[facility]annCHEM RXNTE5024-48-03 21:25:0030[facility] YlqpwczAJJWPVKMPP1344-58-05 21:25:004.3[facility] NevufygPMJNFSGNUG4227-03-98 21:25:000.7[facility] DDDJFRCEMV4280-84-48 21:25:001.3[facility] TxaeznaTSKMUWIOPD0986-93-66 21:25:000.1 [facility] LmfmxgyQLWHSIKNNN4971-35-08 21:25:001.1[facility]annHEMATOLOGY 2016-03-28 21:25:0057.3[facility] YlkrflmNSGTRCTJHX0849-77-24 21:25:0016.9[facility] OiihfzdMMIFHYBIZK2909-51-36 21:25:0014.8[facility] IlxwassPJXZNUGNSN0742-58-34 21:25:001.4[facility] FadtafaYQJQSZXAGR9715-16-98 21:25:009.6[facility] VMGMCLRFLZ0594-45-20 21:25:008.9[facility] SxhplzgSEYMDHDIZB8915-02-72 21:25:00 13.2[facility] BipnqqeMZRNZWPIGS8727-28-02 21:25:00See Note (03/28/16 4:25 PM) [facility] PepyehlGWOPXZCSYM3649-19-04 21:25:004.2[facility] HermannHEMATOLOGY 2016-03-28 21:25:00 Test Item Value Reference Range Interpretation Comments Angle (test code = Angle) 76.9 degrees 53.0-72.0 [facility] AeiqvolAVFGNBHWZO1278-43-62 21:25:00 Test Item Value Reference Range Interpretation Comments R-time (test code = R-time) 3.7 min 5.0-10.0 [facility] QntvphfRPKIGBOHVE6380-16-69 21:25:00 Test Item Value Reference Range Interpretation Comments Max Amp (test code = Max Amp) 72.5 mm 50.0-70.0 [facility] EbkujbkCIHFAPLUSY6656-10-74 21:25:00 Test Item Value Reference Range Interpretation Comments K-time (test code = K-time) 0.8 min 1.0-3.0 [facility] FhtyihdMRANGYGEPI7878-13-97 21:25:0011.8[facility] 2016-[facility]-28 21:25:0035.6[facility] [id number] 21:25:0033.3[facility] [id number] 21:25:007.6[facility] [id number] 21:25:0013.7[facility] [id number] 21:25:51284Ziehavbw [place] [id number] 21:25:0085.0[facility] [id number] 21:25:00 Test Item Value Reference Range Interpretation Comments MCH (test code = MCH) 28.3 pg 27.0-31.0 [facility] [id number] 21:25:007.5[facility]ann[facility]Y 2016-03-28 21:25:004.18[facility] HermannSPECIAL [id number] 21:25:005.2 [facility]
--- NOTE | 2020-10-02 17:44 | RAD REPORT ---
EXAM DESCRIPTION: Nubia Single View10/02/2020 5:38 pm CLINICAL HISTORY: Swelling COMPARISON: 1999 FINDINGS: The lungs appear clear of acute infiltrate. The heart is mildly enlarged IMPRESSION: No acute abnormalities displayed
[2020-10-02 17:52] LABS: Absolute Lymphocytes (CBC) 1.4 K/uL (0.7-4.9); MPV 7.4 fL (7.6-11.3)
[2020-10-02 17:54] LABS: Protime INR 1.31
[2020-10-02 17:58] LABS: Basophils % 0.6 % (0-1.3); Hematocrit 35.2 % (36.0-45.0); Lymphocytes % 10.6 % (15.3-44.8); RBC Red Blood Cell Count 3.88 M/uL (3.86-4.86)
--- NOTE | 2020-10-02 18:20 | RAD REPORT ---
EXAM DESCRIPTION: USExtremity Venous Uni Ltd10/02/2020 6:11 pm CLINICAL HISTORY: left leg pain COMPARISON: 2019 FINDINGS: Left common femoral, superficial femoral, popliteal and posterior tibial veins are compre ssible and demonstrate augmentation. Doppler demonstrates good flow. IMPRESSION: No evidence of deep venous thrombosis involving the left lower extremity.
[2020-10-02 18:41] LABS: Albumin 2.8 g/dL (3.4-5.0); Bilirubin Direct 0.5 mg/dL (0-0.2); Bilirubin Total 1.2 mg/dL (0.2-1.0); CKMB Creatine Kinase MB 1.5 ng/mL (0.3-3.6); Potassium 3.4 mmol/L (3.5-5.1); Protein, Total 7.2 g/dL (6.4-8.2)
[2020-10-02] MEDS ORDERED: FENTANYL CITR 100 MCG/2 ML ONE (19:12)
[2020-10-02] MEDS ORDERED: ONDANSETRON 4 MG/2 ML VIAL ONE (19:12)
--- NOTE | 2020-10-02 19:23 | ER ---
Nurse's Notes [facility] Name: Little Stafford Age: 75 yrs Sex: Female : 1945 Arrival Date: 10/02/2020 Time: 14:41 Bed 13 Private MD: Diagnosis: Local infection of the skin and subcutaneous tissue, unspecified Presentation: 10/02 14:45 Chief complaint: Patient states: L knee replacement Monday09/28/2020, and it's been ca1 hurting real real bad since. Reports pain on L knee down to the L ankle. Coronavirus screen: Client denies travel out of the [place] in the last 14 days. At this time, the client does not indicate any symptoms associated with coronavirus-19. Ebola Screen: Patient negative for fever greater than or equal to 101.5 degrees Fahrenheit, and additional compatible Ebola Virus Disease symptoms Patient denies exposure to infectious person. Patient denies travel to an Ebola-affected area in the 21 days before illness onset. No symptoms or risks identified at this time. Initial Sepsis Screen: Does the patient meet any 2 criteria? No. Patient's initial sepsis screen is negative. Does the patient have a suspected source of infection? No. Patient's initial sepsis screen is negative. Risk Assessment: Do you want to hurt yourself or someone else? Patient reports no desire to harm self or others. Onset of symptoms was October 02, 2020. 14:45 Method Of Arrival: Wheelchair ca1 14:45 Acuity: KELLEY 4 ca1 16:41 Acuity: KELLEY 3 ca1 Historical: - Allergies: 14:49 Codeine; ca1 - PMHx: 14:49 CHF; Chronic pain; Depression; DVT Left leg; GERD; High Cholesterol; Gout; ca1 Hyperlipidemia; Hypertension; restless leg syndrome; - PSHx: 14:49 Cholecystectomy; Knee surgery; ca1 - Immunization history:: Pneumococcal vaccine is up to date, Flu vaccine is up to date. - Social history:: Smoking status: Patient/guardian denies using tobacco, the patient reports quitting approximately 19 years ago. Screenin:29 Abuse screen: Denies threats or abuse. Nutritional screening: No deficits noted. bw Tuberculosis screening: No symptoms or risk factors identified. Fall Risk None identified. Assessment: 18:29 Pain: Complains of pain in left ankle and left midcalf. Neuro: No deficits noted. bw Cardiovascular: No deficits noted. Respiratory: No deficits noted. GI: No deficits noted. : No deficits noted. EENT: No deficits noted. Vital Signs: 14:45 BP 140 / 77; Pulse 101; Resp 16 S; Temp 98.9(TE); Pulse Ox 96% on R/A; Weight 104.33 kg ca1 (R); Height 5 ft. 4 in. (162.56 cm) (R); Pain 9/10; 18:29 BP 147 / 50; Pulse 98; Resp 20; Pulse Ox 96% on R/A; bw 19:30 BP 158 / 60; Pulse 80; Resp 18; Pulse Ox 98% ; ea 14:45 Body Mass Index 39.48 (104.33 kg, 162.56 cm) ca1 ED Course: 14:41 Patient arrived in ED. as 14:48 Triage completed. ca1 14:49 Arm band placed on right wrist. ca1 16:10 Dana Segura MD is Attending Physician. ma2 16:43 Yeni Downs, NATASHA is Primary Nurse. bw 16:50 Abelino Hamilton PA is PHCP. jr8 16:50 Dana Segura MD is Attending Physician. jr8 17:38 Chest Single View XRAY In Process Unspecified. EDMS 18:12 US Extremity Venous Unilateral Ltd In Process Unspecified. EDMS 18:29 Patient has correct armband on for positive identification. Bed in low position. Call bw light in reach. Side rails up X 1. Pulse ox on. NIBP on. Warm blanket given. 18:29 No provider procedures requiring assistance completed. Inserted saline lock: 20 gauge bw in right antecubital area, using aseptic technique. 18:48 Amylase, Serum Sent. bw 18:48 Basic Metabolic Panel Sent. bw 18:48 Blood Culture Adult (2) Sent. bw 19:30 IV discontinued, intact, bleeding controlled, No redness/swelling at site. Pressure ea dressing applied. Administered Medications: 18:56 Drug: Zofran (Ondansetron) 4 mg Route: IVP; Site: right antecubital; bw 19:30 Follow up: Response: No adverse reaction ea 19:06 CANCELLED ( change in medication): fentaNYL (PF) 50 mcg IVP once; RASS on ADMIN: bw Combtv4, Very Agttd3, Agttd2, Rstlss1, AlertClm0, Drwsy-1, Lt Sdtn-2, Mod Sdtn-3, Dp Sdtn-4, UnArsble-5 19:22 Drug: Dilaudid (HYDROmorphone) 1 mg Route: IVP; Site: right antecubital; ea 19:30 Follow up: Response: No adverse reaction ea Outcome: 19:22 Discharge ordered by MD. bear 19:30 Discharged to home ambulatory, with family. rudy 19:30 Condition: stable 19:30 Discharge instructions given to patient, family, Instructed on discharge instructions, follow up and referral plans. medication usage, Demonstrated understanding of instructions, follow-up care, medications, Prescriptions given X 1. 19:31 Patient left the ED. ea Signatures: Dispatcher [employer] EDMS Aida Ruby Josh, PA PA jr8 Litzy Marcos RN RN Dana Hardy MD MD mt2 Coni Mann RN RN [facility] Yeni Downs RN RN Corrections: (The following items were deleted from the chart) 19:06 18:56 fentaNYL (PF) 50 mcg IVP in right antecubital bw bw
--- NOTE | 2020-10-02 19:23 | EDPHYS ---
Physician Documentation [facility] Name: Little Stafford Age: 75 yrs Sex: Female : 1945 Arrival Date: 10/02/2020 Time: 14:41 Bed 13 Private MD: ED Physician Dana Segura HPI: 10/02 19:07 This 75 yrs old Female presents to ER via Wheelchair with complaints of Leg jr8 Pain. 17:10 Patient had recent L knee replacement on 09/28/20. Site is now red, swollen, and warm jr8 to touch with distal circumferential cellulitis. Patient stated that PT was concerned that her leg looks worse. Patient stated that the pain has not been changed and does not feel more swollen, red, or warm then what she has seen in past week. 19:07 Severity of symptoms: At their worst the symptoms were mild, in the emergency jr8 department the symptoms are unchanged. The patient has not experienced similar symptoms in the past. The patient has been recently seen by a physician:. Historical: - Allergies: 14:49 Codeine; ca1 - PMHx: 14:49 CHF; Chronic pain; Depression; DVT Left leg; GERD; High Cholesterol; Gout; ca1 Hyperlipidemia; Hypertension; restless leg syndrome; - PSHx: 14:49 Cholecystectomy; Knee surgery; ca1 - Immunization history:: Pneumococcal vaccine is up to date, Flu vaccine is up to date. - Social history:: Smoking status: Patient/guardian denies using tobacco, the patient reports quitting approximately 19 years ago. ROS: 17:12 Cardiovascular: Negative for chest pain, palpitations, and edema, Respiratory: Negative jr8 for shortness of breath, cough, wheezing, and pleuritic chest pain, Abdomen/GI: Negative for abdominal pain, nausea, vomiting, diarrhea, and constipation, Neuro: Negative for headache, weakness, numbness, tingling, and seizure. 17:12 MS/extremity: Positive for pain, swelling, tenderness, warmth, of the left leg. 17:12 Skin: Positive for swelling, of the left leg. 17:12 All other systems are negative. jr8 Exam: 17:12 Chest/axilla: Normal chest wall appearance and motion. Nontender with no deformity. jr8 No lesions are appreciated. Cardiovascular: Regular rate and rhythm with a normal S1 and S2. No gallops, murmurs, or rubs. Normal PMI, no JVD. No pulse deficits. Respiratory: Lungs have equal breath sounds bilaterally, clear to auscultation and percussion. No rales, rhonchi or wheezes noted. No increased work of breathing, no retractions or nasal flaring. Abdomen/GI: Soft, non-tender, with normal bowel sounds. No distension or tympany. No guarding or rebound. No evidence of tenderness throughout. Neuro: Awake and alert, GCS 15, oriented to person, place, time, and situation. Cranial nerves II-XII grossly intact. Motor strength 5/5 in all extremities. Sensory grossly intact. Cerebellar exam normal. Normal gait. 17:12 Musculoskeletal/extremity: Extremities: grossly normal except: noted in the left leg: erythema, pain, swelling, tenderness, ROM: limited active range of motion, in the left leg, Pulses: noted to be 2+ in the right posterior tibial artery, right dorsalis pedis artery, left posterior tibial artery and left dorsalis pedis artery, Edema, 1+ to the left midcalf and left ankle is noted, the left leg Sensation intact. Severe pain noted. DVT Exam: pain, swelling, tenderness, erythema, Calves: are tender, on left, are not equal in size: left is larger than right. Vital Signs: 14:45 BP 140 / 77; Pulse 101; Resp 16 S; Temp 98.9(TE); Pulse Ox 96% on R/A; Weight 104.33 kg ca1 (R); Height 5 ft. 4 in. (162.56 cm) (R); Pain 9/10; 18:29 BP 147 / 50; Pulse 98; Resp 20; Pulse Ox 96% on R/A; bw 19:30 BP 158 / 60; Pulse 80; Resp 18; Pulse Ox 98% ; ea 14:45 Body Mass Index 39.48 (104.33 kg, 162.56 cm) ca1 MDM: 16:50 Patient medically screened. jr8 19:07 Data reviewed: vital signs, nurses notes, lab test result(s), radiologic studies, jr8 ultrasound. Data interpreted: Pulse oximetry: on room air is 96 %. Interpretation: normal. Counseling: I had a detailed discussion with the patient and/or guardian regarding: the historical points, exam findings, and any diagnostic results supporting the discharge/admit diagnosis, lab results, radiology results, the need for outpatient follow up, a orthopedic surgeon, to return to the emergency department if symptoms worsen or persist or if there are any questions or concerns that arise at home. 19:18 ED course: Discussed with patient that she has subtle signs of possible early infection [facility] based on exam and blood. No diffuse cellulitis and does not necessitate admission at this time. Will put her on oral Abx and have her f/u with her orthopedic after the weekend. If worse knows to come back . 10/02 17:02 Order name: Amylase, Serum 10/02 17:02 Order name: Basic Metabolic Panel [facility] 10/02 17:02 Order name: Blood Culture Adult (2) 10/02 17:02 Order name: CBC with Diff; Complete Time: 18:00 [facility] 10/02 17:02 Order name: Ckmb; Complete Time: 19:03 [facility] 10/02 17:02 Order name: CPK; Complete Time: 19:03 [facility] 10/02 17:02 Order name: Lactate; Complete Time: 18:40 8 10/02 17:02 Order name: LFT's; Complete Time: 19:03 8 10/02 17:02 Order name: Lipase; Complete Time: 19:03 8 10/02 17:02 Order name: Procalcitonin; Complete Time: 18:40 8 10/02 17:02 Order name: Protime (+inr); Complete Time: 18:00 8 10/02 17:02 Order name: Ptt, Activated; Complete Time: 18:00 [facility] 10/02 17:02 Order name: Urine Microscopic Only 10/02 17:03 Order name: Amylase; Complete Time: 19:03 EDMS 10/02 17:02 Order name: Chest Single View XRAY; Complete Time: 17:58 10/02 17:02 Order name: Accucheck; Complete Time: 18:48 8 10/02 17:02 Order name: Cardiac monitoring; Complete Time: 17:43 8 10/02 17:02 Order name: EKG - Nurse/Tech 10/02 17:02 Order name: IV Saline Lock - Large Bore; Complete Time: 17:46 8 10/02 17:02 Order name: Labs collected and sent; Complete Time: 17:46 [facility] 10/02 17:02 Order name: O2 Per Protocol; Complete Time: 17:44 [facility] 10/02 17:02 Order name: O2 Sat Monitoring; Complete Time: 17:44 [facility] 10/02 17:02 Order name: Urine Dipstick-Ancillary (obtain specimen); Complete Time: 18:57 [facility] 10/02 17:02 Order name: US Extremity Venous Unilateral Ltd; Complete Time: 18:40 [facility] 10/02 17:03 Order name: Basic Metabolic Panel; Complete Time: 19:03 EDMS 10/02 17:03 Order name: Blood Culture EDMS Administered Medications: 18:56 Drug: Zofran (Ondansetron) 4 mg Route: IVP; Site: right antecubital; bw 19:30 Follow up: Response: No adverse reaction ea 19:06 CANCELLED (MD change in medication): fentaNYL (PF) 50 mcg IVP once; RASS on ADMIN: bw Combtv4, Very Agttd3, Agttd2, Rstlss1, AlertClm0, Drwsy-1, Lt Sdtn-2, Mod Sdtn-3, Dp Sdtn-4, UnArsble-5 19:22 Drug: Dilaudid (HYDROmorphone) 1 mg Route: IVP; Site: right antecubital; ea 19:30 Follow up: Response: No adverse reaction ea Disposition: 10/02/20 19:22 Discharged to Home. Impression: Local infection of the skin and subcutaneous tissue, unspecified. - Condition is Stable. - Discharge Instructions: Cellulitis, Adult, Mijt-fw-Ltej. - Prescriptions for Keflex 500 mg Oral Capsule - take 1 capsule by ORAL route every 6 hours for 10 days; 40 capsule. - Medication Reconciliation Form, Thank You Letter, Antibiotic Education, Prescription Opioid Use form. - Follow up: Private Physician; When: 2 - 3 days; Reason: Wound Recheck, Recheck today's complaints, Continuance of care, Re-evaluation by your physician. - Problem is new. - Symptoms have improved. Addendum: 10/04/2020 18:38 Co-signature as Attending Physician, Dana Segura MD. m a2 Signatures: Dispatcher [employer] EDMS Abelino Hamilton PA PA jr8 Litzy Marcos RN RN ea Alzahri, Mohammad, MD MD ma2 Coni Mann RN RN [facility] Yeni Downs RN RN Corrections: (The following items were deleted from the chart) 10/02 19:06 18:42 fentaNYL (PF) 50 mcg IVP once; RASS on ADMIN: Combtv4, Very Agttd3, Agttd2, bw Rstlss1, AlertClm0, Drwsy-1, Lt Sdtn-2, Mod Sdtn-3, Dp Sdtn-4, UnArsble-5 ordered. jr8 19:06 18:56 fentaNYL (PF) 50 mcg IVP once; RASS on ADMIN: Combtv4, Very Agttd3, Agttd2, bw Rstlss1, AlertClm0, Drwsy-1, Lt Sdtn-2, Mod Sdtn-3, Dp Sdtn-4, UnArsble-5 given. :06 19:06 fentaNYL (PF) 50 mcg IVP once; RASS on ADMIN: Combtv4, Very Agttd3, Agttd2, bw Rstlss1, AlertClm0, Drwsy-1, Lt Sdtn-2, Mod Sdtn-3, Dp Sdtn-4, UnArsble-5 ordered. 19:20 17:10 Patient had recent L knee replacement on 09/28/20. Site is now red, swollen, and jr8 warm to touch with distal circumferential cellulitis. . . jr8 19:31 19:22 10/02/2020 19:22 Discharged to Home. Impression: Local infection of the skin and ea subcutaneous tissue, unspecified. Condition is Stable. Forms are Medication Reconciliation Form, Thank You Letter, Antibiotic Education, Prescription Opioid Use. Follow up: Private Physician; When: 2 - 3 days; Reason: Wound Recheck, Recheck today's complaints, Continuance of care, Re-evaluation by your physician. Problem is new. Symptoms have improved. jr8
[2020-10-02] MEDS ORDERED: HYDROMORPHONE HCL 1 MG/ML INJ ONE (19:36)
[2020-10-02 19:44] LABS: Urine Amorphous Sediment 1+ /HPF (NONE SEEN); Urine Bacteria 20-50 /HPF (<20); Urine RBC <5 /HPF (NONE SEEN)
[2020-10-03 10:03] VITALS: BP 140/77; TEMP 98.9; O2SAT 96
--- NOTE | 2020-10-05 08:59 | EKG ---
Test Date: 2020-10-02 Test Time: 19:15:18 Refinish Technician: SUMMER MEASUREMENT RESULTS: Intervals: Rate: 87 IN: 152 QRSD: 90 QT: 354 QTc: 425 [place]: P: 60 IN: 152 QRS: 55 T: 43 INTERPRETIVE STATEMENTS: Normal sinus rhythm Low voltage QRS Borderline ECG Compared to ECG 05/09/2017 17:14:49 Low QRS voltage now present Sinus bradycardia no longer present Electronically Signed On 10-05-20 08:55:30 CDT by Ezra Georges
[2020-10-07 14:21] LABS: Urine Blood Negative (Negative); Urine Glucose Negative (Negative); Urine Protein Negative (Negative); Urine Specific Gravity 1.015 (1.005-1.030)
== END 2020-10-02 19:31 | disposition home or self-care (01) ==
LOC: ER 14:39
DX: L08.9 Local infection of the skin and subcutaneous tissue, unspecified (principal); Z98.890 Other specified postprocedural states; I10 Essential (primary) hypertension; Z88.5 Allergy status to narcotic agent
CPT/HCPCS: 93005; 87040 ×2; 87088; 85025; 87086; 80048; 36415; 82150; 82550; 85610; 80076; 83605; 85730; 81015; 82553; 83690; 84145; 71045; 93971; 96375; 96374; 99284; J3010; J1170; J2405; 81003

== ENCOUNTER 2020-10-15 15:45 | Emergency (ER) | payer OTHER ==
--- OUTSIDE RECORDS SUMMARY | 2020-10-15 15:48 | XMS REPORT | Continuity of Care Document ---
:1945 Author Organization [facility] t Address [address] [place] [place] [address] Care Team Providers Name Role Phone Joe KAUR, T Attending Clinician Unavailable Maksim ELLIS Attending Clinician Only, Test Attending Clinician Unavailable Doctor Unassigned, Name Attending Clinician Unavailable Angel Ruby Attending Clinician Angel Ruby Admitting Clinician Payers Payer Name Policy Type Policy Number Effective Date Expiration Date S ource Problems This patient has no known problems. Allergies, Adverse Reactions, Alerts Allergy Allergy Status Severity Reaction(s) Onset Inactive Treating Comm ents Source Name Type Date Date Clinician codeine DA Active [facility] 3[facility]10 Clear 00:00: [place] 00 [facility] codeine DA Active SV 2018-07 [facility] [place] code[facility] DA Active [facility] 9[facility]11 [place] 00[facility] codeine DA Active [facility] 2[facility]07 [place] 00:[facility] codeine Adverse Active nausea, [facility] Reaction [facility] Medications Ordered Filled Start Stop Current Ordering Indication Dosage Frequency Signature Comments Components Source Medication Medication Date Date Medication? Clinician (SIG) Name Name Omeprazole Omeprazole Yes Tyree [address] [facility] 03-05 [place] 30 minutes [facility] 00 morning l [facility] Procedures This patient has no known procedures. Encounters Start End Encounter Admission Attending Care Care Encounter Source Date/Time Date/Time Type Type Clinicians Facility Department ID 2020-09-24 2020-09-24 Letter GERMAN Diaz [id number] 00:00:00 00:00:00 (Out) Aliyah HE [id number] [facility] 4.2.7.2.686 [id number] 2020-09-24 2020-09-24 Telephone Maksim, [facility] [id number] 00:00:00 00:00:00 Layla Gray [id number] [place] 4.2.7.2.686 [facility] [id number] [facility] 2020-09-23 2020-09-23 Laboratory Only, [facility] [id number] 13:54:59 14:09:59 Only Test [place] [id number] [place] 4.2.7.2.686 [place] [id number] 2020-09-21 2020-09-21 [id number]00 [facility] 2020-09-17 2020-09-17 [facility] [id number]00 [facility] 2020-09-15 2020-09-15 Orders Doctor PORTER [id number] 00:00:00 00:00:00 Only UnassignedYING [id number] [place] [address]2.686 [id number] 2020-09-14 2020-09-14 Telephone [facility] [id number] 00:00:00 00:00:00 Layla Gray [id number] [place] 4.2.7.2.686 [facility] [id number] [facility] 2020-09-14 2020-09-14 Orders Doctor PORTER [id number] 00:00:00 00:00:00 Only Unassigned, YING 350.1.13.10 [place] [facility] 4.2.7.2.686 [id number] 2020-09-10 2020-09-10 Outpatient [facility] [id number] [facility] 2020-09-01 2020-09-01 Office [facility] [id number] 14:21:14 15:04:24 Visit Layla Gray [id number] [place] 4.2.7.2.686 Professio [id number] [facility] 2020-05-07 2020-05-07 Outpatient [facility] [id number] [facility] 2020-04-13 2020-04-13 Outpatient [facility] [id number] [facility] 2020-03-16 2020-03-16 [facility] [id number] [facility] 10:52:00 10:52:00 [place] [employer] [address] s - Drive [facility] l Medicine Outpati ent Clinics 2020-03-06 2020-03-06 [facility] [id number] [address] 10:09:00 10:09:00 [place] [employer] Luke s - Drive [facility] l Medicine Outpati ent Clinics 2020-03-05 2020-03-05 [facility] [id number] [facility] 11:51:00 11:51:00 [place] [employer] Luke s - Drive [facility] l Medicine Outpat[facility] ent Clinics 2020-02-05 2020-02-05 [facility] [id number] [address] 13:00:00 13:00:00 [place] [employer] s - Drive [facility] Medicine l Medicine Outpati ent Clinics 2020-02-05 2020-02-05 [facility] [id number] [address] 13:00:00 13:00:00 [place] [employer] s - Drive [facility] Medicine l Medicine Outpati ent Clinics 2020-01-09 2020-01-09 [facility] [id number] 14:26:00 14:26:00 t [facility] Clin[facility] 2020-01-06 2020-01-06 [facility] [id number] 15:48:00 15:48:00 [place] [employer] - [employer] [facility] Medicine Outpati ent Clinics 2019-12-04 2019-12-04 [facility] [id number] [address] 07:12:00 07:12:00 [place] [employer] [employer] [facility] Medicine l Medicine Outpati ent Clinics 2019-11-22 2019-11-22 [facility] [id number] 09:19:00 09:19:00 [place] [employer] [facility] Medicine Outpati ent Clinics 2019-11-01 2019-11-01 [facility] [id number] 11:46:00 11:46:00 [place] S[place] [employer] [facility] Medicine l Medicine Outpati ent Clinics 2019-10-29 2019-10-29 [facility] [id number] 11:16:00 11:16:00 [place] [employer] [place] - Drive [facility] l Medicine Outpati ent Clinics 2019-10-18 2019-10-18 [facility] [id number] 09:30:00 09:30:00 [place] S[place] [employer] [address] [facility] Medicine l Medicine Outpati ent Clinics 2019-10-17 2019-10-17 [facility] [id number] [facility] 10:49:00 10:49:00 [place] [address] [place] [address] Luke s - Drive [facility] Medicine l Medicine Outpati ent Clinics 2019-10-04 2019-10-04 [facility] [id number] 10:26:00 10:26:00 [place] [address] [place] [address] Luke s - Drive [facility] Medicine l Medicine Outpati ent Clinics 2019-10-03 2019-10-03 [facility] [id number] 13:45:00 13:45:00 [place] [address] [place] [address] Luke s - Drive [facility] Medicine l Medicine Outpati ent Clinics 2019-10-02 2019-10-02 [facility] [id number] [facility] 10:11:00 10:11:[address] [facility] [address] [employer] s - Road [facility] l Medicine Outpati ent Clinics 2019-09-20 2019-09-20 [facility] [id number] 15:05:00 15:05:00 [place] [employer] Lu[employer] s - Drive [facility] Medicine Outpati ent Clinics 2019-09-12 2019-09-12 [facility] [id number] 11:15:00 11:15:00 [place] [employer] Luke s - Drive [facility] Medicine l Medicine Outpati ent Clinics 2019-08-30 2019-08-30 [facility] [id number] [facility] 15:13:00 15:13:00 [place] [employer] [address] s - Drive [facility] Medicine Medicine Outpati ent Clinics 2019-06-07 2019-06-07 [facility] [id number] 15:51:00 15:51:00 [place] [employer] Luke s - Drive [facility] Medicine l Medicine Outpati ent Clinics 2019-04-01 2019-04-01 [facility] [id number] 15:30:00 15:30:[address] [place] [address] [place] [address] [place] - Drive [facility] l Medicine Outpati ent Clinics 2019-01-28 2019-01-28 [facility] [id number] 13:59:00 13:59:00 [place] [employer] [address] s - Drive [facility] l Medicine Outpati ent Clinics 2019-01-12 2019-01-12 [facility] [id number] 10:26:00 10:26:00 [place] [address] [place] [address] [place] - Drive [facility] Medicine Medicine Outpati ent Clinics 2018-12-19 2018-12-19 [facility] [id number] [facility] 11:30:00 11:30:[address] [place] [address] [place] [address] [place] - Drive [facility] l Medicine Outpati ent Clinics 2018-11-12 2018-11-12 [facility] [id number] [facility] 11:20:00 11:20:00 [place] [address] [place] [address] [place] - Drive [facility] Medicine l Medicine Outpati ent Clinics 2018-09-26 2018-09-26 [facility] [id number] [facility] 15:59:00 15:59:[address] [place] [address] [place] [address] [place] - Drive [facility] l Medicine Outpati ent Clinics 2018-08-06 2018-08-06 [facility] [id number] 13:45:00 13:45:00 [place] [address] [place] [address] [place] - Drive [facility] l Medicine Outpati ent Clinics 2018-04-17 2018-04-17 [facility] [id number] 15:41:00 15:41:00 t [facility] Luke s - Road [facility] l Medicine Outpati ent Clinics 2018-01-31 2018-01-31 [facility] [id number] 13:15:00 13:15:00 [place] [address] [place] [address] [place] - Drive [facility] Medicine Outpati ent Clinics 2018-01-16 2018-01-16 [facility] [id number] [facility] 14:00:00 14:00:00 [place] [address] [place] [address] [place] - Drive [facility] Medicine Outpati ent Clinics 2016-07-05 2016-07-05 Outpatient Tung [facility] [id number] 13:02:00 23:59:00 Jorge Angel 2016-05-16 2016-05-16 Outpatient Tung [facility] [id number] 13:44:00 23:59:00 Jorge Angel 2016-04-01 2016-04-06 Outpatient Tung [facility] [id number] 05:10:00 14:48:00 Jorge 00 Angel Results Test Description Test Time Test [...] measure: (test code = GFR) mL/min/1.7 3 [id number] Range:Healthy A dults >90 mL/min/1.73 m2 For Chronic Kidney Disease: Stage II Mi ld Decrease in GFR 60-9 0 Stage III Moderate Decrease in GFR 30-59 Stage IV Severe Decrease in GFR 15-29 Stage V Kidney Failure <15 CREATININE (test code = CREAT) 1.13 mg/dL 0.55-1.30 N CALCIUM (test code = CA) 8.6 mg/dL 8.2-10.1 N HGB [id number] 05:57:00 Test Item Value Reference Range Interpretation Comments HEMOGLOBIN (test code = HGB) 11.4 g/dL 12-16 L HEMATOCRIT (test code = HCT) 35.5 % 37-47 L SPECIMEN COMMENT: POD #1PROTHROMBIN [id number] 17:08:00 Test Item Value Reference Range Interpretation [...] BLOOD, PT every other day NTHROMBOPLASTIN TIME [id number] 17:08:00 Test Item Value Reference Range Interpretation Comments PTT ACTIVATED (test code = APTT) 34.0 secs 24.9-37.0 N IS PATIENT ON ANTICOAGULANTS ? YLIST ANTICOAGULANT/ANTI PLT MEDICATION : OtherHas Lab been notified if Patient is on Heparin Drip? NOIf Yes, order CBC, OCCULT BLOOD, PT every other day NCOMPREHENSIVE METABOLIC [id number] 17:08:00 Test Item Value Reference Range Interpretation [...] RATE (test code = GFR) mL/mi n/1.73 v8Mkrirdgse Range:Healthy Adults >90 mL/min/1.73 m2 For Chronic [...] TOTAL (test code = ALKP) CBC W/AUTO [id number] 16:45:00 Test Item Value Reference Range Interpretation [...] code = NRBC) - XR CHEST 1 [id number] 16:35:00 Patient Name: RUTHY BEST Unit No: [id number] EXAMS: CPT CODE: [id number] XR CHEST 1 V 50152 IMAGES PROVIDED: One frontal view of the [...] MD Technologist: JESSICA CHAND RT(R) Transcribed D/ (7296) LesleySLJ [facility] NAME: RUTHY BEST [address] [facility] PHYS: ALE. - Aida Meredith : 1945 AGE: 73 SEX: F [place] [address] LOC: Y.306 A PHONE #: [phone] EXAM DATE: 05/15/2019 STATUS: DIS IN FAX #: [phone] RAD #: D/C DT 05/16/2019 PAGE 1 Signed Report PatientName: RUTHY BEST Unit No: [id number] EXAMS: CPT CODE: [id number] XR CHEST 1 V 42518 <Continued> Orig Print D/T: S: 05/16/2019 (4017) [facility] NAME: RUTHY BEST [address] [facility] PHYS: ALE. - Aida Meredith : 1945 AGE: 73 SEX: F [place], [place] [address] LOC: Y.306 A PHONE #: [phone] EXAM DATE: 05/15/2019 STATUS: DIS IN FAX #: [phone] RAD #: D/C DT 05/16/2019 PAGE 2 Signed Report- XR SHOULDER 1 V [id number] 14:01:00 Patient Name: RUTHY BEST Unit No: [id number] EXAMS: CPT CODE: [id number] XR SHOULDER 1 [place] [address] IMAGES PROVIDED: Single AP view of the left shoulder FINDINGS: Postoperative changes of left reverse total shoulder arthoplasty demonstrated without evidenceof immediate complication. No acute fracture. Visualized lung is clear. IMPRESSION: Left reverse total shoulder arthoplasty without immediate complication. at 1401 Reported and signed by: Rick Serrano M.D. CC: Geovany Olivera MD Technologist: MIGUELITO FELIZ (RT.R) Transcribed D/ (6887) Saadia [facility] NAME: RUTHY BEST [address] [facility] PHYS: Geovany Bee : 1945 AGE: 73 SEX: F [place] [address] LOC: Y.306 A PHONE #: [phone] EXAM DATE: 05/15/2019 STATUS: ADM IN FAX #: [phone] RAD #: D/C DT PAGE 1 Signed Report Patient Name: RUTHY BEST Unit No: [id number] EXAMS: CPT CODE: [id number] XR SHOULDER 1 VLT 00333 <Continued> Orig Print D/T: S: 05/16/2019 (3540) [facility] NAME: RUTHY BEST [address] [facility] PHYS: Geovany Bee : 1945 AGE: 73 SEX: F [place], [place] [address] LOC: Y.306 A PHONE #: [phone] EXAM DATE: 05/15/2019 STATUS: ADM IN FAX #: [phone] RAD #:D/C DT PAGE 2 Signed ReportCBC W/AUTO [id number] 05:53:00 Test Item Value Reference Range Interpretation [...] POD #1- CT UP EXTREM W/O CONT [id number] 08:39:00 Patient Name: RUTHY BEST Unit No: [id number] EXAMS: CPT CODE: [id number] [place] EXTREM W/[place] [address] [place] OF THE LEFT SHOULDER WITH SAGITTAL [...] with ACR practice standards and adherence to sales correspondence clerk's recommendations. Degenerative changes are present as noted. The rotator cuff is as described. No loose bodies are seen. AC joint degenerative change is present. Electr onically Signed by Ran Cedeño MD on 04/12/2019 at 0839 Reported and signed by: Ran Cedeño MD CC: Geovany Olivera MD Technologist: Pankaj Goodman,RT(R) CTDI: DLP: Trnscrpt: 04/12/2019 (0839) [email or web address] [facility] NAME: RUTHY BEST [address] [facility] PHYS: Geovany Bee : 1945 AGE: 73 SEX: F [place] [address] LOC: Y.RAD PHONE #: [phone] EXAM DATE: 04/11/2019 STATUS: DEP CLI FAX #: [phone] RAD #: D/C DT PAGE 1 Signed Report Patient Name: RUTHY BEST Unit No: [id number] EXAMS: CPT CODE: [id number] [place] UP EXTREM W/[place] [address] <Continued> Orig Print D/T: S: 04/12/2019 (0842) [facility] NAME: RUTHY BEST [address] [facility] PHYS: Geovany Bee : 1945 AGE: 73 SEX: F [place] [address] LOC: Y.RAD PHONE #: [phone] EXAM DATE: 04/11/2019 STATUS: DEP CLI FAX #: [phone] RAD #: D/C DT PAGE 2 Signed ReportCBC W/AUTO [id number] 18:23:00 Test Item Value Reference Range Interpretation [...] % 0-0 N code = NRBC) SED [id number] 18:23:00 Test Item Value Reference Range Interpretation Comments SED RATE (test code = SEDW) 25 mm/hr 0-20 H COMPREHENSIVE METABOLIC [id number] 18:17:00 Test Item Value Reference Range Interpretation [...] RATE (test code = GFR) mL/mi n/1.73 q4Ytiuihcbq Range:Healthy Adults >90 mL/min/1.73 m2 For Chronic [...] N TOTAL (test code = ALKP) PROTHROMBIN [id number] 17:59:00 Test Item Value Reference Range Interpretation [...] Patient is on Heparin Drip? NOTHROMBOPLASTIN TIME [id number] 17:59:00 Test Item Value Reference Range Interpretation [...] % 0-0 N code = NRBC) SED [id number] 17:22:00 Test Item Value Reference Range Interpretation Comments SED RATE (test code = SEDW) mm/hr 0-20
[2020-10-15 20:11] LABS: Absolute Lymphocytes (CBC) 2.4 K/uL (0.7-4.9); Basophils % 1.4 % (0-1.3); Hematocrit 36.2 % (36.0-45.0); Lymphocytes % 22.5 % (15.3-44.8); MPV 6.8 fL (7.6-11.3); RBC Red Blood Cell Count 4.05 M/uL (3.86-4.86)
--- NOTE | 2020-10-15 20:11 | RAD REPORT ---
EXAM DESCRIPTION: RAD - Knee Left 3 View - 10/15/2020 7:55 pm CLINICAL HISTORY: Left knee pain FINDINGS: No fracture or dislocation is seen. Left knee arthroplasty has been performed. The prosthesis is in good position without evidence of loo sening. Diffuse edema within the soft tissue
[2020-10-15 20:25] LABS: C-Reactive Protein 12.3 mg/L (<3.00); Potassium 3.5 mmol/L (3.5-5.1)
[2020-10-15 20:50] LABS: Protime INR 1.23
--- NOTE | 2020-10-15 21:18 | RAD REPORT ---
EXAM DESCRIPTION: USExtremity Venous Uni Ltd10/15/2020 9:06 pm CLINICAL HISTORY: left leg pain and swelling. COMPARISON: October 02, 2020 FINDINGS: Left common femoral, superficial femoral, popliteal and posterior tibial veins are compre ssible and demonstrate augmentation. Doppler demonstrates good flow. IMPRESSION: No evidence of deep venous thrombosis involving the left lower extremity.
--- NOTE | 2020-10-15 21:49 | ER ---
Nurse's Notes [facility] Name: Little Stafford Age: 75 yrs Sex: Female : 1945 Arrival Date: 10/15/2020 Time: 15:51 Bed 24 Private MD: Faisal Anna T Diagnosis: Pain in left knee;Cellulitis of left lower limb Presentation: 10/15 15:58 Chief complaint: Patient states: L knee replacement 2 weeks ago. Had physical therapy ll1 today. Leg is red, swollen, and more painful since Monday. Coronavirus screen: Client denies travel out of the [place] in the last 14 days. At this time, the client does not indicate any symptoms associated with coronavirus-19. Ebola Screen: Patient denies travel to an Ebola-affected area in the 21 days before illness onset. Initial Sepsis Screen: Does the patient meet any 2 criteria? No. Patient's initial sepsis screen is negative. Does the patient have a suspected source of infection? Yes: Skin breakdown/wound Bone or joint infection. Risk Assessment: Do you want to hurt yourself or someone else? Patient reports no desire to harm self or others. Onset of symptoms was October 01, 2020. 15:58 Method Of Arrival: Wheelchair ll1 15:58 Acuity: KELLEY 3 ll1 Historical: - Allergies: 15:54 Codeine; ll1 - PMHx: 15:54 CHF; High Cholesterol; Hyperlipidemia; Gout; GERD; DVT Left leg; Depression; Chronic ll1 pain; Hypertension; restless leg syndrome; - PSHx: 15:54 Cholecystectomy; Knee surgery; ll1 - Immunization history:: Client reports having NOT received the Covid vaccine. Flu vaccine is up to date. - Social history:: Smoking status: Patient denies any tobacco usage or history of. - Family history:: not pertinent. - Hospitalizations: : No recent hospitalization is reported. Screenin:30 Abuse screen: Denies threats or abuse. Nutritional screening: No deficits noted. bb Tuberculosis screening: No symptoms or risk factors identified. Fall Risk Secondary diagnosis (15 points) impaired mobility, IV access (20 points). Ambulatory Aid- None/Bed Rest/Nurse Assist (0 pts). Gait- Impaired (20 pts.). Mental Status- Oriented to own ability (0 pts). Total Patricia Fall Scale indicates High Risk Score (45 or more points). Fall prevention measures have been instituted. Side Rails Up X 2 Family Present and informed to notify staff if the need to leave the bedside As available patient and family educated on Fall Prevention Program and Strategies. Assessment: 19:30 General: Appears uncomfortable, Behavior is calm, cooperative. Pain: Complains of pain bb in left knee. Neuro: Level of Consciousness is awake, alert, obeys commands, Oriented to person, place, time, situation. Cardiovascular: No deficits noted. Respiratory: Respiratory effort is even, unlabored, Respiratory pattern is regular. GI: No signs and/or symptoms were reported involving the gastrointestinal system. Derm:. Musculoskeletal: Swelling present in left leg Reports pain in left leg. 20:35 Reassessment: Patient is alert, oriented x 3, equal unlabored respirations, skin bb warm/dry/pink. awaiting diagnostic results, family at bedside. 21:35 Reassessment: pt appears to be sleeping, eyes closed, resp unlabored, family at bedside.bb 22:03 Reassessment: Patient is alert, oriented x 3, equal unlabored respirations, skin bb warm/dry/pink. pt verbalized understanding of and agrees to plan of care discharge instructions given pt assisted to exit via wheelchair accompanied by family. Vital Signs: 15:58 BP 138 / 55; Pulse 99; Resp 18; Temp 97.4; Pulse Ox 100% ; Weight 101.15 kg; Height 5 ll1 ft. 4 in. (162.56 cm); Pain 5/10; 20:33 BP 107 / 50; Pulse 83; Resp 16 S; Pulse Ox 98% on R/A; bb 21:35 BP 99 / 48; Pulse 69; Resp 14 S; Pulse Ox 96% on R/A; bb 22:04 BP 125 / 72; Pulse 86; Resp 16 S; Pulse Ox 97% ; bb 15:58 Body Mass Index 38.28 (101.15 kg, 162.56 cm) ll1 ED Course: 15:51 Patient arrived in ED. mr 15:51 Faisal Anna MD is Private Physician. mr 15:54 Arm band placed on. ll1 16:00 Triage completed. ll1 19:19 Jose Elias Roe MD is Attending Physician. rn 19:30 Patient has correct armband on for positive identification. Placed in gown. Bed in low bb position. Call light in reach. Side rails up X 1. Adult w/ patient. Pulse ox on. NIBP on. Warm blanket given. 20:00 Initial lab(s) drawn, by me, sent to lab. Inserted saline lock: 20 gauge in right bb antecubital area, using aseptic technique. Blood collected. 20:31 Awa Purvis, RN is Primary Nurse. bb 21:06 Extremity Venous Uni Ltd US In Process Unspecified. EDMS 22:04 No provider procedures requiring assistance completed. IV discontinued, intact, bb bleeding controlled, No redness/swelling at site. Pressure dressing applied. Administered Medications: 22:02 Drug: Bactrim (160 mg-800 mg (DS) 1 tablet Route: PO; bb 22:03 Follow up: Response: Medication administered at discharge. bb Outcome: 21:48 Discharge ordered by . rn 22:05 Discharged to home via wheelchair, with family. bb 22:05 Condition: stable 22:05 Discharge instructions given to patient, Instructed on discharge instructions, follow up and referral plans. medication usage, Demonstrated understanding of instructions, follow-up care, medications, Prescriptions given X 1. 22:05 Patient left the ED. bb Signatures: Dispatcher [employer] [facility] Rose Loza Awa Purvis, RN RN Jose Elias Bass MD MD rn Lewis, Lynsay, RN RN ll1
--- NOTE | 2020-10-15 21:49 | EDPHYS ---
Physician Documentation [facility] Name: Little Stafford Age: 75 yrs Sex: Female : 1945 Arrival Date: 10/15/2020 Time: 15:51 Bed 24 Private MD: Faisal Anna T ED Physician Jose Elias Roe HPI: 10/15 19:47 This 75 yrs old Female presents to ER via Wheelchair with complaints of Knee rn problem. 19:47 The patient presents with pain, swelling. The complaints affect the left knee. Onset: rn The symptoms/episode began/occurred yesterday. Modifying factors: The symptoms are alleviated by elevating leg, the symptoms are aggravated by movement, weight bearing. Severity of symptoms: At their worst the symptoms were mild, in the emergency department the symptoms are unchanged. The patient has not experienced similar symptoms in the past. The patient has been recently seen by a physician:. 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 Taking her eliquis. No weakness or numbness of leg. Taking abx since surgery.. Historical: - Allergies: 15:54 Codeine; ll1 - PMHx: 15:54 CHF; High Cholesterol; Hyperlipidemia; Gout; GERD; DVT Left leg; Depression; Chronic ll1 pain; Hypertension; restless leg syndrome; - PSHx: 15:54 Cholecystectomy; Knee surgery; ll1 - Immunization history:: Client reports having NOT received the Covid vaccine. Flu vaccine is up to date. - Social history:: Smoking status: Patient denies any tobacco usage or history of. - Family history:: not pertinent. - Hospitalizations: : No recent hospitalization is reported. ROS: 19:47 Constitutional: Negative for fever, chills, and weight loss, Eyes: Negative for injury, rn pain, redness, and discharge, Neck: Negative for injury, pain, and swelling, Cardiovascular: Negative for chest pain, palpitations Respiratory: Negative for shortness of breath, cough, wheezing, and pleuritic chest pain, Abdomen/GI: Negative for abdominal pain, nausea, vomiting, diarrhea, and constipation, MS/Extremity: + left knee and leg pain and swelling Skin: Negative for injury, rash, and discoloration, Neuro: Negative for headache, weakness, numbness, tingling, and seizure. Exam: 19:47 Constitutional: This is a well developed, well nourished patient who is awake, alert, rn and in no acute distress. Head/Face: Normocephalic, atraumatic. Cardiovascular: Regular rate and rhythm . No pulse deficits. Respiratory: No increased work of breathing, no retractions or nasal flaring. Skin: + chronic erythema LLE with 2+ pitting edema MS/ Extremity: Pulses equal, no cyanosis. + pitting edema LLE without drainage from wound, knee and LLE with mild warmth. Neuro: Awake and alert, GCS 15 Vital Signs: 15:58 BP 138 / 55; Pulse 99; Resp 18; Temp 97.4; Pulse Ox 100% ; Weight 101.15 kg; Height 5 ll1 ft. 4 in. (162.56 cm); Pain 5/10; 20:33 BP 107 / 50; Pulse 83; Resp 16 S; Pulse Ox 98% on R/A; bb 21:35 BP 99 / 48; Pulse 69; Resp 14 S; Pulse Ox 96% on R/A; bb 22:04 BP 125 / 72; Pulse 86; Resp 16 S; Pulse Ox 97% ; bb 15:58 Body Mass Index 38.28 (101.15 kg, 162.56 cm) ll1 MDM: 19:19 Patient medically screened. rn 21:46 Differential diagnosis: surgical infection, DVT, cellulitis, lymphedema. Data reviewed: rn vital signs, nurses notes, lab test result(s), radiologic studies, doppler, plain films, and as a result, I will discharge patient. Counseling: I had a detailed discussion with the patient and/or guardian regarding: the historical points, exam findings, and any diagnostic results supporting the discharge/admit diagnosis, lab results, radiology results, the need for outpatient follow up, to return to the emergency department if symptoms worsen or persist or if there are any questions or concerns that arise at home. Response to treatment: the patient's symptoms have mildly improved after treatment, and as a result, I will discharge patient. Special discussion: I discussed with the patient/guardian in detail that at this point there is no indication for admission to the hospital. It is understood, however, that if the symptoms persist or worsen the patient needs to return immediately for re-evaluation. Based on the history and exam findings, there is no indication for further emergent testing or inpatient evaluation. I discussed with the patient/guardian the need to see the orthopedic surgeon for further evaluation of the symptoms. ED course: WBC within normal range, sed rate negative, procal neg, xray shows normal hardware without loosening, u/s negative for DVT. reports leg "always red/warm/swollen", but will cover with abx for possible cellulitis and have her f/u with her surgeon. Happy with plan and given return precautions.. 10/15 19:38 Order name: CBC with Diff; Complete Time: 21:37 rn 10/15 19:38 Order name: Basic Metabolic Panel rn 10/15 19:38 Order name: Protime (+inr); Complete Time: 21:37 rn 10/15 19:38 Order name: Ptt, Activated; Complete Time: 21:37 rn 10/15 19:38 Order name: Procalcitonin; Complete Time: 21:37 rn 10/15 19:38 Order name: Sed Rate; Complete Time: 21:37 rn 10/15 19:38 Order name: IV Start; Complete Time: 20:04 rn 10/15 19:38 Order name: CRP rn 10/15 19:38 Order name: Extremity Venous Uni Ltd US; Complete Time: 21:37 rn 10/15 19:38 Order name: XRAY Knee LEFT 3 view rn 10/15 20:12 Order name: RAD; Complete Time: 21:37 EDMS 10/15 20:25 Order name: Basic Metabolic Panel; Complete Time: 21:37 EDMS 10/15 20:25 Order name: C-Reactive Protein; Complete Time: 21:37 EDMS Administered Medications: 22:02 Drug: Bactrim (160 mg-800 mg (DS) 1 tablet Route: PO; bb 22:03 Follow up: Response: Medication administered at discharge. bb Disposition: 10/15/20 21:48 Discharged to Home. Impression: Pain in left knee, Cellulitis of left lower limb. - Condition is Stable. - Discharge Instructions: Cellulitis, Adult, Knee Pain. - Prescriptions for Bactrim DS 800- 160 mg Oral Tablet - take 1 tablet by ORAL route every 12 hours for 10 days; 20 tablet. - Medication Reconciliation Form, Thank You Letter, Antibiotic Education, Prescription Opioid Use form. - Follow up: Private Physician; When: As needed; Reason: Recheck today's complaints, Re-evaluation by your physician. - Problem is new. - Symptoms have improved. Signatures: Dispatcher [employer] Awa Cm, RN RN bb Jose Elias Roe MD MD rn Lewis, NATASHA Benton RN ll1 Corrections: (The following items were deleted from the chart) 22:05 21:48 10/15/2020 21:48 Discharged to Home. Impression: Pain in left knee; Cellulitis of bb left lower limb. Condition is Stable. Forms are Medication Reconciliation Form, Thank You Letter, Antibiotic Education, Prescription Opioid Use. Follow up: Private Physician; When: As needed; Reason: Recheck today's complaints, Re-evaluation by your physician. Problem is new. Symptoms have improved. rn
[2020-10-15] MEDS ORDERED: SMZ./TMP. 800/160 MG TABLET ONE (22:16)
[2020-10-15 22:18] VITALS: BP 125/72; O2SAT 97
[2020-10-15 22:25] VITALS: TEMP 97.6
== END 2020-10-15 22:05 | disposition home or self-care (01) ==
LOC: ER 15:45
DX: L03.116 Cellulitis of left lower limb (principal); Z96.652 Presence of left artificial knee joint; I10 Essential (primary) hypertension; Z88.5 Allergy status to narcotic agent
CPT/HCPCS: 36415; 80048; 84145; 85025; 85610; 85652; 85730; 86140; 93971; 99284

== ENCOUNTER 2022-08-18 16:34 | Inpatient (IN) | payer OTHER ==
--- OUTSIDE RECORDS SUMMARY | 2022-08-18 16:50 | XMS REPORT | Continuity of Care Document ---
:1945 Author Organization [facility] t Address [address] [place] [place] [address] Care Team Providers Name Role Phone Ingris Pachecoharika eBnites Primary Care Physician Ingris Pachecoharika Benites Attending Clinician Unavailable LAYLA BIANCHI Attending Clinician Unavailable Gavi_Chandler Attending Clinician Unavailable Layla Bianchi MD Attending Clinician Doctor Unassigned, [place] Attending Clinician Unavailable Shaan MONDRAGON Attending Clinician Unavailable Shaan Calle Attending Clinician 2, [facility] Attending Clinician Unavailable Marissa Zhu Attending Clinician Unavailable Cosmo De DO Attending Clinician COSMO DE Attending Clinician Unavailable COSMO DE Attending Clinician Unavailable Pob, [facility] Lab Main Attending Clinician Unavailable Therapist, [facility] Pulmonary Attending Clinician Unavailable Masoud Santana MD Attending Clinician MASOUD SANTANA Attending Clinician Unavailable NARENDRA DARLING Attending Clinician Unavailable Nurse, Adc Pob Immunization Attending Clinician Unavailable Narendra Darling DO Attending Clinician Therapist, [facility] Respiratory Attending Clinician Unavailable Wilver Atkinson Attending Clinician Unavailable Aliyah Diaz RN Attending Clinician Unavailable Only, Adc Test Attending Clinician Unavailable YARED HIGH Attending Clinician Unavailable Jorge Ruby Attending Clinician Tyree Pacheco Admitting Clinician Unavailable Gavi_Chandler Admitting Clinician Unavailable Shaan MONDRAGON Admitting Clinician Unavailable Wilver Atkinson Admitting Clinician Unavailable UNDEFINED Admitting Clinician Unavailable LAYLA BIANCHI Admitting Clinician Unavailable Jorge Ruby Admitting Clinician Payers Payer Name Policy Type Policy Number Effective Date Expiration Date S ros AETNA MANAGED [id number] 2020 MEDICARE 00:00:00 PPO-ANDREA AETNA MEDICARE 53 [id number] 2013 [facility] 00:[facility]00 - [facility] MEDICARE MB [id number] 2009 [facility] NOVITAS 00:00:00 - [facility] MEDICARE MB [id number] 2009 [facility] NOVITAS 00:00:00 - [facility] MEDICARE MB [id number] 2009 [facility] NOVITAS 00:00:00 - [facility] MEDICARE MB [id number] 2009 [facility] NOVITAS 00:00:00 - [facility] MEDICARE MB [id number] 2009 [facility] NOVITAS 00:00:00 - [facility] MEDICARE MB [id number] 2009 [facility] NOVITAS 00:00:00 - [facility] MEDICARE MB [id number] 2009 [facility] NOVITAS 00:00:00 - [facility] MEDICARE MB [id number] 2009 [facility] NOVITAS 00:00:00 - [facility] MEDICARE MB [id number] 2009 [facility] NOVITAS 00:00:00 - [facility] MEDICARE MB [id number] 2009 [facility] NOVITAS 00:00:00 - [facility] MEDICARE MB [id number] 2009 [facility] NOVITAS 00:00:00 - [facility] MEDICARE MB [id number] 2009 [facility] NOVITAS 00:00:00 - [facility] MEDICARE MB [id number] 2009 [facility] NOVITAS 00:00:00 - [facility] AETNA MEDICARE C1 [id number] 2017 [facility] 00:00:00 - [id number] 00:00:00 - [facility] AETNA MEDICARE C1 [id number] 2017 [facility] 00:00:00 - [facility] AET MEDICARE [id number] 00:00:00 - [facility] Problems Condition Condition Condition Status Onset Resolution Last Treating Co mments Source Name Details Category Date Date Treatment Clinician Date Volume Volume Disease Active Univers overload overload 2-26 ity of 00:00: [place] 00 Medical Branch History of History of Disease Active U nivers DVT (deep DVT (deep 2-26 ity of vein vein 00:00: [place] thrombosis thrombosis 00 Me dical ) ) Branch Acute on Acute on Disease Active 2016-07 Unive rs chronic chronic 1-27 ity of heart heart 00:00: [place] failure failure 00 Medical with with Branch preserved preserved ejection ejection fraction fraction Bilateral Bilateral Disease Active Uni vers carotid carotid 8-07 ity of artery artery 00:00: [place] disease disease 00 Medical Branch CERVICAL CERVICAL Diagnosis Active 2016-04-04 Memoria STENOSIS STENOSIS 9-16 18:00:00 l Active 00:00: [place] 03/18/2016 00 [facility] Essential Essential Disease Active 2014-07 Uni vers hypertensi hypertensi 2-18 it y of on on 00:00: [address] Branch Hyperlipid Hyperlipid Disease Active 2014-07 U nivers emia emia 2-18 ity of 00:00: [address] Branch Sleep Sleep Disease Active 2014-07 Univers apnea apnea 2-18 ity of 00:00: [address] Branch Osteoarthr Osteoarthr Disease Active 2014-07 U nivers itis of itis of 2-18 ity of both knees [place] Mixed Mixed Problem Common incontinen incontinen Sp cari ce ce - CHI [facility] 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 - CHI athies [facility] Primary Primary Problem Common generalise generalize Sp cari d d - CHI osteoarthr (osteo)art [facility] Accelerate Accelerate Problem C ommon d d Spirit essential essential - CH I hypertensi hypertensi St on on [facility] 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 - [facility] [id number] Chronic Problem Comm on deep vein Spirit thrombosis - CHI (DVT) of St left lower [facility] extremity, Medica l unspecifie Center d vein [id number] Acute gout Problem Co mmon involving Spirit toe of - CHI left foot, St unspecifie [facility] d [facility] History of Personal Problem Com mon thromboemb history of Sp cari olism of other - CHI vein venous thrombosis [facility] and Medical embolism Center Hypokalemi Hypokalemi Problem C erika a a Spirit - CHI [facility] Nicotine Personal Problem Commo n dependence history of Sp cari nicotine - CHI dependence [facility] Family Family Problem Common history of history of Sp cari ischemic ischemic - CHI heart heart St disease disease [facility] and other Medical diseases Center [facility] [id number] Bilateral Problem Com mon carotid Spirit artery - CHI stenosis [facility] [id number] Stenosis Problem Com mon of left Spirit carotid - CHI artery [facility] [id number] Chronic Problem Comm on heart Spirit failure - CHI with St preserved [facility] ejection Medical fraction Center Acute Acute Problem Common drug-induc drug-induc Sp cari ed gout of ed gout of - CHI foot, foot, St unspecifie unspecifie Ibbi kes d d Medical laterality laterality Ce nter [id number] 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 - CHI [facility] Restless Restless Problem Commo n legs leg Spirit syndrome syndrome - [facility] Peripheral Venous Problem Commo n venous insufficie Spirit insufficie ncy - CHI ncy [facility] Congestive CHF Problem Commo n heart (congestiv Spirit failure e heart - CHI failure) [facility] Obstructiv Obstructiv Problem C ommon e sleep e sleep Spirit apnea apnea - [facility] Benign Benign Problem Common essential essential Spir it hypertensi hypertensi - CHI on on [facility] Chronic Chronic Problem Common kidney kidney Spirit disease disease, - CHI unspecifie [facility] Morbid Morbid Problem Common obesity obesity Spirit - CHI [facility] Cervicalgi Cervicalgi Problem C ommon a a Spirit - [facility] [id number] Alcohol Problem Commo n dependence Spirit in - CHI remission [facility] [id number] Iron Problem Common deficiency Spirit anemia, - CHI unspecifie [facility] deficiency Medica l anemia Center type [id number] Other Problem Common specified Spirit postproced - CHI ural [facility] Spinal Spinal Problem Common stenosis stenosis Spirit in of - CHI cervical cervical St region region [facility] High risk group home Problem Com mon drug current Spirit monitoring use of - CHI status opiate [facility]I [facility] Long-term group home Problem Com mon current current Spirit use of use of - CHI inhaled inhaled St steroid steroid [facility] Mixed Hyperlipid Problem Commo n hyperlipid emia, Spirit emia mixed - CHI [facility] Allergic Seasonal Problem Commo n rhinitis and Spirit perennial - CHI allergic rhinitis [facility] Insomnia Insomnia Problem Commo n Spirit - CHI [facility] Chronic Chronic Problem Common obstructiv obstructiv Sp cari e e - CHI pulmonary pulmonary disease [facility] [id number] 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 - CHI disease [facility] History of Bariatric Problem Co mmon bariatric surgery Spirit surgical status - CHI procedure [facility] Presence Presence Problem Commo n of of right Spirit orthopedic artificial - CHI joint shoulder St implant joint [facility] Artificial Presence Problem Com mon knee joint of right Spir it present artificial - CHI knee joint [facility] History of History of Problem C ommon fall falling Spirit - CHI [facility] Urogenital Presence Problem Com mon implant of Spirit urogenital - CHI implants [facility] [id number] Acquired Problem Commo n absence of Spirit other - CHI specified parts of [facility] digestive Medical tract Center Hysterecto Acquired Problem Com mon my absence of Spirit both - CHI cervix and uterus [facility] Hypertensi Hypertensi Problem C ommon ve heart ve heart Spirit AND and - CHI chronic chronic kidney kidney [facility] disease disease Medical with with heart Center congestive failure heart and stage failure 1 through stage 4 chronic kidney disease, or chronic kidney disease Major Major Problem Common depressive depressive Sp cari disorder disorder - CHI [facility] Long-term intermediate card tender Problem Com mon current current Spirit use of use of - CHI anticoagul anticoagul ant [facility] Gastro-eso Gastro-eso Problem C ommon phageal phageal Spirit reflux reflux - CHI disease disease St without without [facility] esophagiti esophagiti Sc dical s s [place] Family Family Problem Common history of history of Sp cari cancer malignant - [facility] neoplasm, unspecifie [facility] Family Family Problem Common history of history of Sp cari mental other - CHI disorder mental and behavioral [facility] disorders [facility] Walking Difficulty Problem Comm on disability in Spirit walking, - CHI not St elsewhere [facility] classified Medica l [place] [id number] Body mass Problem Com mon index Spirit (BMI) - CHI 40.0-44.9, adult [facility] Spasm Other Problem Common muscle Spirit spasm - CHI [facility] Depressive Depressiv Problem Active 2016-07-08 Memoria disorder e disorder 04:40:14 l (disorder) (disorder) He rmann Active Problem 07/08/2016 [facility] OPIMeera Mccabe Eczema Eczema Problem Active 2016-07-08 Manjinder nasir (disorder) (disorder) 04:40:14 l Active [place] Problem 07/08/2016 [facility] MAICOL Mccabe Hypertensi Hypertens Problem Active 2016-07-08 Memoria ve willard 04:40:14 l disorder, disorder, Herm jesse systemic systemic arterial arterial (disorder) (disorder) Active Problem 07/08/2016 [facility] MAICOL Mccabe Impairment Impairmen Problem Active 2016-07-08 Memoria of balance t of 04:40:14 l (finding) balance Omer n (finding) Active Problem 07/08/2016 [facility] OPID [place] Obesity Obesity Problem Active 2016-07-08 Me moria (disorder) (disorder) 04:40:14 l Active [place] Problem 07/08/2016 [facility] OPID [place] Pain Pain Problem Active 2016-07-08 Memor ia (finding) (finding) 04:40:14 l Active [place] Problem 07/08/2016 [facility] OPID [place] SPINAL SPINAL Diagnosis Active 2016-04-04 Me moria STENOSIS, STENOSIS, 18:00:00 l CERVICAL CERVICAL Omer n [facility]ION REG[facility] Active [facility] CERVICAL CERVICAL Diagnosis Active 2016-04-04 Memoria DISC DISC 18:00:00 l DISORDER DISORDER Omer n WITH WITH MYELOPATHY MYELOPATHY , , Active [facility] Allergies, Adverse Reactions, Alerts Allergy Allergy Status Severity Reaction(s) Onset Inactive Treating Comm ents Source Name Type Date Date Clinician codeine DA Active SV [facility] 3-10 Clear 00:00: [place] 00 [facility] codeine DA Active SV EXTREME [facility] NAUSEA AND 3-10 Clear ITCHING 00:00: [place] 00 [facility] METOLAZO DRUG Active Unknown-Cmnt 2020-0 Un bautista NE INGREDI 3-31 ity of 00:00: [place] 00 Medical Branch Metolazo Propensi Active Unknown - 2019-0 gout Uni vers ne ty to See comments 3-31 ity of adverse 00:00: [place] reaction 00 Medical s Branch codeine DA Active SV 2018-07 [facility] 0-10 [facility] 00:[facility] [place] codeine DA Active SV EXTREME 2018-07 [facility] NAUSEA 0-10 [place] 00:00: Orthope 00 dic Hospita l codeine DA Active SV 2017- [facility] 9-11 [place] 00:00: Orthope 00 dic Hospita l CODEINE DRUG Active High N/V 2017- Univers INGREDI 6-12 ity of 00:00: [place] 00 Medical Branch codeine DA Active SV 2017- [facility] 2-07 [place] 00:00: Orthope 00 dic Hospita l Codeine Codeine Active nausea, Common vomiting Spirit - CHI [facility] Social History Social Habit Start Date Stop Date Quantity Comments Source History of Tobacco [facility] - Use [facility] Sex Assigned At [facility] cari - [facility] Exposure to 2022-05-20 2022-05-30 Not sure University of SARS-CoV-2 (event) 00:00:00 15:08:00 [facility] Alcohol intake 2022-05-17 2022-05-17 Current University of 00:00:00 00:00:00 non-drinker of [facility] alcohol Branch (finding) Tobacco use and 2021-08-30 2021-08-30 Smokeless Universit y of exposure 00:00:00 00:00:00 tobacco non-user [facility] dical Branch Cigarettes smoked 2021-08-30 2021-08-30 Univers ity of current (pack per 00:00:00 00:00:00 [facility] ) - Reported Branch Cigarette 2021-08-30 2021-08-30 University of pack-years 00:00:00 00:00:00 [facility] Smoking Status Start Date Stop Date Source Social History 2016-07-05 21:40:59 2016-07-05 21:40:59 [facility] Medications Ordered Filled Start Stop Current Ordering Indication Dosage Frequency Signature Comments Components Source Medication Medication Date Date Medication? Clinician (SIG) Name Name HYDROcodone HYDROcodone No 1{table HYDROcodon -Acetaminop -Acetaminop 08-02 t_as_ne e-Acetamin hen 7.5-325 hen 7.5-325 00:00: eded} ophen MG MG 00 7.5-325 MG spironolact Yes [id number] 25mg Take 1 Univers one 25 mg 07-11 tablet by ity o f tablet 00:00: mouth in [place] 00 the Medical morning. [place] ketoconazol 2021-07 Yes Apply to Un bautista e 2 % cream 1-28 area(s) ity o f 15:38: daily. [address] clobetasoL 2021-07 Yes Apply to Uni vers 0.05 % -28 area(s). ity of ointment 15:38: [address] ketoconazol 2021-07 Yes Apply to Un bautista e 2 % cream -28 area(s) ity o f 15:38: daily. [address] clobetasoL 2021-07 Yes Apply to Uni vers 0.05 % 07-30 area(s). ity of ointment 15:38: [address] ketoconazol 2021-07 Yes Apply to Un bautista e 2 % cream 07-30 area(s) ity o f 15:38: daily. [address] clobetasoL 2021-07 Yes Apply to Uni vers 0.05 % 07-30 area(s). ity of ointment 15:38: [address] empaglifloz 2021-07 Yes [id number] 10mg Take 1 Univers in 10 mg 07-30 02 tablet by ity of 00:00: mouth in [place] the Medical morning. [place] empaglifloz 2021-07 Yes [id number] 10mg Take 1 Univers in 10 mg 07-30 02 tablet by ity of 00:00: mouth in [place] the morning. [place] empaglifloz 2021-07 Yes [id number] 10mg Take 1 Univers in 10 mg 07-30 tablet by ity of 00:00: mouth in [place] the morning. [place] sulfamethox 2021-07 Yes 1{tbl} 1 tablet, Univers azole-trime 16 Oral, BID, it y of th 02:00[place] (BACTRIM 00 on Mon DS) 800-160 05/17/22 Bran ch mg per at 2000, tablet 1 Until tablet Discontinu ed, SLAVA
Re ason for Anti-Infec tive: Documented Infection< br>Documen jmaes Infection Site: Skin / Soft Tissue<br& gt;Duratio n of Therapy: 10 days cefTRIAXone 2021-07 No 1000mg 1,000 mg, Univers (ROCEPHIN) 1-16 -16 IV ity of 1,000 mg in 01:30: 02:38 [place], [place] NaCl 0.9% 00 :00 ONCE, 1 Medical (NS) 50 mL dose, On Branc h MINI-BAG 05/17/22 at 1930, Administer over 30 Minutes, 50 mL
Reas on for Anti-Infec tive: Documented Infection< br>Documen james Infection Site: Skin / Soft Tissue
Duration of Therapy: Other (see Comments) sulfamethox 2021-07 Yes [id number] 1{tbl} Take 1 Univers azole-trime 1-15 [id number] tablet by i ty of thoprim 00:00: mouth [place] 800-160 mg 00 every 12 Medic al per tablet (twelve) Branc h hours. sulfamethox 2021-07 Yes [id number] 1{tbl} Take 1 Univers azole-trime 1-15 [id number] tablet by i ty of thoprim 00:00: mouth [place] 800-160 mg 00 every 12 Medic al per tablet (twelve) Branc h hours. sulfamethox 2021-07 Yes [id number] 1{tbl} Take 1 Univers azole-trime 1-15 [id number] tablet by i ty of thoprim 00:00: mouth [place] 800-160 mg 00 every 12 Medic al per tablet (twelve) Branc h hours. sulfamethox 2021-07 Yes [id number] 1{tbl} Take 1 Univers azole-trime 1-15 [id number] tablet by i ty of thoprim 00:00: mouth [place] 800-160 mg 00 every 12 Medic al per tablet (twelve) Branc h hours. sulfamethox 2021-07 Yes [id number] 1{tbl} Take 1 Univers azole-trime 1-15 [id number] tablet by i ty of thoprim 00:00: mouth [place] 800-160 mg 00 every 12 Medic al per tablet (twelve) Branc h hours. cephALEXin 2021-07- No [id number] 500mg Take 1 Univers (KEFLEX) 07-17 [id number] capsule by it y of 500 mg 00:00: 05:59 mouth in [place] capsule 00 :00 the Medical morning Branch and 1 capsule at noon and 1 capsule in the evening. Do all this for 10 days. spironolact 2021-07 Yes [id number] 25mg Take 1 Univers one 25 mg 0-11 tablet by ity o f tablet 00:00: mouth in [place] 00 the Medical morning. Branch spironolact 2021-07 Yes [id number] 25mg Take 1 Univers one 25 mg 0-11 tablet by ity o f tablet 00:00: mouth in [place] 00 the Medical morning. Branch spironolact 2021-07 Yes [id number] 25mg Take 1 Univers one 25 mg 0-11 tablet by ity o f tablet 00:00: mouth in [place] 00 the Medical morning. Branch spironolact 2021-07 Yes [id number] 25mg Take 1 Univers one 25 mg 0-11 tablet by ity o f tablet 00:00: mouth in [place] 00 the Medical morning. Branch spironolact 2021-07 Yes [id number] 25mg Take 1 Univers one 25 mg 0-11 tablet by ity o f tablet 00:00: mouth in [place] 00 the Medical morning. Branch spironolact 2021-073- No [id number] 25mg Take 1 Univers one 25 mg 0-11 -09 tablet by ity of tablet 00:00: 00:00 mouth in [place] 00 :00 the Medical morning. Branch KCL 20 mEq 2-0 Yes 20meq Take 1 Univ ers tablet 8-22 tablet by ity of 00:00: mouth in [place] 00 the Medical morning Branch and 1 tablet in the evening. KCL 20 mEq 2022-0 Yes 20meq Take 1 Univ ers tablet 8-22 tablet by ity of 00:00: mouth in [place] 00 the Medical morning Branch and 1 tablet in the evening. KCL 20 mEq 2022-0 Yes 20meq Take 1 Univ ers tablet 8-22 tablet by ity of 00:00: mouth in [place] 00 the Medical morning Branch and 1 tablet in the evening. KCL 20 mEq 2022-0 Yes 20meq Take 1 Univ ers tablet 8-22 tablet by ity of 00:00: mouth in [place] 00 the Medical morning Branch and 1 tablet in the evening. KCL 20 mEq 2022-0 Yes 20meq Take 1 Univ ers tablet 8-22 tablet by ity of 00:00: mouth in [place] 00 the Medical morning Branch and 1 tablet in the evening. KCL 20 mEq 2022-0 Yes 20meq Take 1 Univ ers tablet 8-22 tablet by ity of 00:00: mouth in [place] 00 the Medical morning Branch and 1 tablet in the evening. KCL 20 mEq 2022-0 Yes 20meq Take 1 Univ ers tablet 8-22 tablet by ity of 00:00: mouth in [place] 00 the Medical morning Branch and 1 tablet in the evening. apixaban 2021-0 Yes [id number] 2.5mg Take 1 Univer s 2.5 mg 8-12 tablet by ity of tablet 00:00: mouth in [place] 00 the Medical morning Branch and 1 tablet in the evening. Indication s: blood clot in a deep [facility] apixaban 0 Yes 1473 2.5mg Take 1 Univer s 2.5 mg 8-12 tablet by ity of tablet 00:00: mouth in [place] 00 the Medical morning Branch and 1 tablet in the evening. Indication s: blood clot in a deep vein of the extremitie s apixaban 0 Yes 1473 2.5mg Take 1 Univer s 2.5 mg 8-12 tablet by ity of tablet 00:00: mouth in [place] 00 the Medical morning Branch and 1 tablet in the evening. Indication s: blood clot in a deep vein of the extremitie s apixaban Yes 1473 2.5mg Take 1 Univer s 2.5 mg 8-12 tablet by ity of tablet 00:00: mouth in [place] 00 the Medical morning Branch and 1 tablet in the evening. Indication s: blood clot in a deep vein [facility] apixaban Yes 1473 2.5mg Take 1 Univer s 2.5 mg 8-12 tablet by ity of tablet 00:00: mouth in [place] 00 the Medical morning Branch and 1 tablet in the evening. Indication s: blood clot in a deep vein [facility] apixaban Yes 1473 2.5mg Take 1 Univer s 2.5 mg 8-12 tablet by ity of tablet 00:00: mouth in [place] 00 the Medical morning Branch and 1 tablet in the evening. Indication s: blood clot in a deep vein [facility] apixaban Yes 1473 2.5mg Take 1 Univer s 2.5 mg 8-12 tablet by ity of tablet 00:00: mouth in [place] 00 the Medical morning Branch and 1 tablet in the evening. Indication s: blood clot in a deep vein of the extremitie s apixaban Yes 1473 2.5mg Take 1 Univer s 2.5 mg 8-12 tablet by ity of tablet 00:00: mouth in [place] 00 the Medical morning Branch and 1 tablet in the evening. Indication s: blood clot in a deep vein of the extremitie s Amoxicillin Amoxicillin 2021- No 1{table BID Amoxicilli -Pot -Pot 8-02-14 t} n-Pot Clavulanate Clavulanate 00:00: 00:00 Clavulanat 875-125 MG 875-125 MG 00 :00 e 875-125 MG Amoxicillin Amoxicillin 0 2021- No 1{table BID Amoxicilli -Pot -Pot -02-14 t} n-Pot Clavulanate Clavulanate 00:00: 00:00 Clavulanat 875-125 MG 875-125 MG 00 :00 e 875-125 MG Amoxicillin Amoxicillin 0 2021- No 1{table BID Amoxicilli -Pot -Pot -02-14 t} n-Pot Clavulanate Clavulanate 00:00: 00:00 Clavulanat 875-125 MG 875-125 MG 00 :00 e 875-125 MG Sulfamethox Sulfamethox 2021- No 1{table BID Sulfametho azole-Trime azole-Trime 01-27 t} xazole-Tri thoprim thoprim 00:00: 00:00 methoprim 800-160 MG 800-160 MG 00 :00 800-160 MG Sulfamethox Sulfamethox 2021-0 2021- No 1{table BID Sulfametho azole-Trime azole-Trime 01-27 t} xazole-Tri thoprim thoprim 00:00: 00:00 methoprim 800-160 MG 800-160 MG 00 :00 800-160 MG traZODONE 2021-0 Yes 150mg Take 150 Uni vers 100 mg 7-25 mg by ity of tablet 15:36: mouth at [place] [address] bedtime. Medical Branch HYDROmorphO 2021-0 Yes 2mg Take 2 mg U nivers ne 4 mg 7-25 by mouth ity of tablet 15:36: every 4 [place] [address] (four) Medical hours as Branch needed. Indication s: last taken ~2 wks ago allopurinoL 2021-0 Yes 300mg Take 300 U nivers 300 mg 7-25 mg by ity of tablet 15:36: mouth [place] [address] daily. Medical Branch traZODONE 2021-0 Yes 150mg Take 150 Uni vers 100 mg 7-25 mg by ity of tablet 15:36: mouth at [place] 37 bedtime. Medical Branch HYDROmorphO 2022-0 Yes 2mg Take 2 mg U nivers ne 4 mg 7-25 by mouth ity of tablet 15:36: every 4 [place] 37 (four) Medical hours as Branch needed. Indication s: last taken ~2 wks ago allopurinoL 2022-0 Yes 300mg Take 300 U nivers 300 mg 7-25 mg by ity of tablet 15:36: mouth [place] 37 daily. Medical Branch traZODONE 2022-0 Yes 150mg Take 150 Uni vers 100 mg 7-25 mg by ity of tablet 15:36: mouth at [place] 37 bedtime. Medical Branch HYDROmorphO 2022-0 Yes 2mg Take 2 mg U nivers ne 4 mg 7-25 by mouth ity of tablet 15:36: every 4 [place] 37 (four) Medical hours as Branch needed. Indication s: last taken ~2 wks ago allopurinoL 2022-0 Yes 300mg Take 300 U nivers 300 mg 7-25 mg by ity of tablet 15:36: mouth [place] 37 daily. Medical Branch traZODONE 2022-0 Yes 150mg Take 150 Uni vers 100 mg 7-25 mg by ity of tablet 15:36: mouth at [place] 37 bedtime. Medical Branch HYDROmorphO 2022-0 Yes 2mg Take 2 mg U nivers ne 4 mg 7-25 by mouth ity of tablet 15:36: every 4 [place] 37 (four) Medical hours as Branch needed. Indication s: last taken ~2 wks ago allopurinoL 2022-0 Yes 300mg Take 300 U nivers 300 mg 7-25 mg by ity of tablet 15:36: mouth [place] 37 daily. Medical Branch traZODONE 2022-0 Yes 150mg Take 150 Uni vers 100 mg 7-25 mg by ity of tablet 15:36: mouth at [place] 37 bedtime. Medical Branch HYDROmorphO 2022-0 Yes 2mg Take 2 mg U nivers ne 4 mg 7-25 by mouth ity of tablet 15:36: every 4 [place] 37 (four) Medical hours as Branch needed. Indication s: last taken ~2 wks ago allopurinoL 2022-0 Yes 300mg Take 300 U nivers 300 mg 7-25 mg by ity of tablet 15:36: mouth [place] 37 daily. Medical Branch traZODONE 2022-0 Yes 150mg Take 150 Uni vers 100 mg 7-25 mg by ity of tablet 15:36: mouth at [place] 37 bedtime. Medical Branch HYDROmorphO 2022-0 Yes 2mg Take 2 mg U nivers ne 4 mg 7-25 by mouth ity of tablet 15:36: every 4 [place] 37 (four) Medical hours as Branch needed. Indication s: last taken ~2 wks ago allopurinoL 2022-0 Yes 300mg Take 300 U nivers 300 mg 7-25 mg by ity of tablet 15:36: mouth [place] 37 daily. Medical Branch traZODONE 2-0 Yes 150mg Take 150 Uni vers 100 mg 7-25 mg by ity of tablet 15:36: mouth at [place] 37 bedtime. Medical Branch HYDROmorphO 2022-0 Yes 2mg Take 2 mg U nivers ne 4 mg 7-25 by mouth ity of tablet 15:36: every 4 [place] 37 (four) Medical hours as Branch needed. Indication s: last taken ~2 wks ago allopurinoL 2022-0 Yes 300mg Take 300 U nivers 300 mg 7-25 mg by ity of tablet 15:36: mouth [place] 37 daily. Medical Branch traZODONE 2-0 Yes 150mg Take 150 Uni vers 100 mg 7-25 mg by ity of tablet 15:36: mouth at [place] 37 bedtime. Medical Branch HYDROmorphO 2022-0 Yes 2mg Take 2 mg U nivers ne 4 mg 7-25 by mouth ity of tablet 15:36: every 4 [place] 37 (four) Medical hours as Branch needed. Indication s: last taken ~2 wks ago allopurinoL 2022-0 Yes 300mg Take 300 U nivers 300 mg 7-25 mg by ity of tablet 15:36: mouth [place] 37 daily. Medical Branch traZODONE 2022-0 Yes 150mg Take 150 Uni vers 100 mg 7-25 mg by ity of tablet 15:36: mouth at [place] 37 bedtime. Medical Branch HYDROmorphO 2022-0 Yes 2mg Take 2 mg U nivers ne 4 mg 7-25 by mouth ity of tablet 15:36: every 4 [place] 37 (four) Medical hours as Branch needed. Indication s: last taken ~2 wks ago allopurinoL 2022-0 Yes 300mg Take 300 U nivers 300 mg 7-25 mg by ity of tablet 15:36: mouth [place] 37 daily. Medical Branch traZODONE 0 Yes 150mg Take 150 Uni vers 100 mg 7-25 mg by ity of tablet 15:36: mouth at [place] 37 bedtime. Medical Branch HYDROmorphO 0 Yes 2mg Take 2 mg U nivers ne 4 mg 7-25 by mouth ity of tablet 15:36: every 4 [place] 37 (four) Medical hours as Branch needed. Indication s: last taken ~2 wks ago allopurinoL 0 Yes 300mg Take 300 U nivers 300 mg 7-25 mg by ity of tablet 15:36: mouth [place] 37 daily. Medical Branch benzonatate 0 Yes [id number] 100mg Take 1 [facility] (TESSALON 5-12 capsule by ity of PERLES) 100 00:00: mouth [place] mg capsule 00 every 8 Medica l (eight) Branch hours as needed for Cough. benzonatate 2021-0 Yes [id number] 100mg Take 1 [facility] (TESSALON 5-12 capsule by ity of PERLES) 100 00:00: mouth [place] mg capsule 00 every 8 Medica l (eight) Branch hours as needed for Cough. benzonatate 2021-0 Yes [id number] 100mg Take 1 [facility] (TESSALON 5-12 capsule by ity of PERLES) 100 00:00: mouth [place] mg capsule 00 every 8 Medica l (eight) Branch hours as needed for Cough. benzonatate 2021-0 Yes [id number] 100mg Take 1 [facility] (TESSALON 5-12 capsule by ity of PERLES) 100 00:00: mouth [place] mg capsule 00 every 8 Medica l (eight) Branch hours as needed for Cough. benzonatate 2021-0 Yes [id number] 100mg Take 1 [facility] (TESSALON 5-12 capsule by ity of PERLES) 100 00:00: mouth [place] mg capsule 00 every 8 Medica l (eight) Branch hours as needed for Cough. benzonatate 2021-0 Yes [id number] 100mg Take 1 [facility] (TESSALON 5-12 capsule by ity of PERLES) 100 00:00: mouth [place] mg capsule 00 every 8 Medica l (eight) Branch hours as needed for Cough. benzonatate 0 Yes [id number] 100mg Take 1 [facility] (TESSALON 5-12 capsule by ity of PERLES) 100 00:00: mouth [place] mg capsule 00 every 8 Medica l (eight) Branch hours as needed for Cough. benzonatate Yes [id number] 100mg Take 1 [facility] (TESSALON 5-12 capsule by ity of PERLES) 100 00:00: mouth [place] mg capsule 00 every 8 Medica l (eight) Branch hours as needed for Cough. benzonatate Yes [id number] 100mg Take 1 [facility] (TESSALON 5-12 capsule by ity of PERLES) 100 00:00: mouth [place] mg capsule 00 every 8 Medica l (eight) Branch hours as needed for Cough. benzonatate Yes [id number] 100mg Take 1 [facility] (TESSALON 5-12 capsule by ity of PERLRed Stamp) 100 00:00: mouth [place] mg capsule 00 every 8 Medica l (eight) Branch hours as needed for Cough. bumetanide Yes [id number] 3mg Take 1.5 [facility] 2 mg tablet 4-25 02 tablets by it y of 00:00: mouth 2 [place] 00 (two) Medical times Branch daily. metoprolol Yes [id number] 25mg Take 1 U nivers succinate 4-25 tablet by ity o f XL 25 mg 24 00:00: mouth [place] hr tablet 00 daily. Medical Branch atorvastati Yes [id number] 20mg Take 1 [facility] n 20 mg 4-25 tablet by ity of tablet 00:00: mouth [place] 00 daily. Medical Branch bumetanide Yes [id number] 3mg Take 1.5 [facility] 2 mg tablet 4-25 02 tablets by it y of 00:00: mouth 2 [place] 00 (two) Medical times Branch daily. metoprolol Yes [id number] 25mg Take 1 U nivers succinate 4-25 tablet by ity o f XL 25 mg 24 00:00: mouth [place] hr tablet 00 daily. Medical Branch atorvastati Yes [id number] 20mg Take 1 [facility] n 20 mg 4-25 tablet by ity of tablet 00:00: mouth [place] 00 daily. Medical Branch bumetanide Yes [id number] 3mg Take 1.5 [facility] 2 mg tablet 4-25 02 tablets by it y of 00:00: mouth 2 [place] 00 (two) Medical times Branch daily. metoprolol Yes [id number] 25mg Take 1 U nivers succinate 4-25 tablet by ity o f XL 25 mg 24 00:00: mouth [place] hr tablet 00 daily. Medical Branch atorvastati Yes [id number] 20mg Take 1 [facility] n 20 mg 4-25 tablet by ity of tablet 00:00: mouth [place] 00 daily. Medical Branch bumetanide Yes [id number] 3mg Take 1.5 [facility] 2 mg tablet 4-25 02 tablets by it y of 00:00: mouth 2 [place] 00 (two) Medical times Branch daily. metoprolol Yes [id number] 25mg Take 1 U nivers succinate 4-25 tablet by ity o f XL 25 mg 24 00:00: mouth [place] hr tablet 00 daily. Medical Branch atorvastati Yes [id number] 20mg Take 1 [facility] n 20 mg 4-25 tablet by ity of tablet 00:00: mouth [place] 00 daily. Medical Branch bumetanide Yes [id number] 3mg Take 1.5 [facility] 2 mg tablet 4-25 02 tablets by it y of 00:00: mouth 2 [place] 00 (two) Medical times Branch daily. metoprolol Yes [id number] 25mg Take 1 U nivers succinate 4-25 tablet by ity o f XL 25 mg 24 00:00: mouth [place] hr tablet 00 daily. Medical Branch atorvastati Yes [id number] 20mg Take 1 [facility] n 20 mg 4-25 tablet by ity of tablet 00:00: mouth [place] 00 daily. Medical Branch bumetanide Yes [id number] 3mg Take 1.5 [facility] 2 mg tablet 4-25 02 tablets by it y of 00:00: mouth 2 [place] 00 (two) Medical times Branch daily. metoprolol Yes [id number] 25mg Take 1 U nivers succinate 4-25 tablet by ity o f XL 25 mg 24 00:00: mouth [place] hr tablet 00 daily. Medical Branch atorvastati Yes [id number] 20mg Take 1 [facility] n 20 mg 4-25 tablet by ity of tablet 00:00: mouth [place] 00 daily. Medical Branch bumetanide Yes [id number] 3mg Take 1.5 [facility] 2 mg tablet 4-25 02 tablets by it y of 00:00: mouth 2 [place] 00 (two) Medical times Branch daily. metoprolol Yes [id number] 25mg Take 1 U nivers succinate 4-25 tablet by ity o f XL 25 mg 24 00:00: mouth [place] hr tablet 00 daily. Medical Branch atorvastati Yes [id number] 20mg Take 1 [facility] n 20 mg 4-25 tablet by ity of tablet 00:00: mouth [place] 00 daily. Medical Branch bumetanide Yes [id number] 3mg Take 1.5 [facility] 2 mg tablet 4-25 02 tablets by it y of 00:00: mouth 2 [place] 00 (two) Medical times Branch daily. metoprolol Yes [id number] 25mg Take 1 U nivers succinate 4-25 tablet by ity o f XL 25 mg 24 00:00: mouth [place] hr tablet 00 daily. Medical Branch atorvastati Yes [id number] 20mg Take 1 [facility] n 20 mg 4-25 tablet by ity of tablet 00:00: mouth [place] 00 daily. Medical Branch bumetanide Yes [id number] 3mg Take 1.5 [facility] 2 mg tablet 4-25 02 tablets by it y of 00:00: mouth 2 [place] 00 (two) Medical times Branch daily. metoprolol Yes [id number] 25mg Take 1 U nivers succinate 4-25 tablet by ity o f XL 25 mg 24 00:00: mouth [place] hr tablet 00 daily. Medical Branch atorvastati Yes [id number] 20mg Take 1 [facility] n 20 mg 4-25 tablet by ity of tablet 00:00: mouth [place] 00 daily. Medical Branch bumetanide Yes [id number] 3mg Take 1.5 [facility] 2 mg tablet 4-25 02 tablets by it y of 00:00: mouth 2 [place] 00 (two) Medical times Branch daily. metoprolol 2022-0 Yes [id number] 25mg Take 1 U nivers succinate 4-25 tablet by ity o f XL 25 mg 24 00:00: mouth [place] hr tablet 00 daily. Medical Branch atorvastati 2021-0 Yes [id number] 20mg Take 1 [facility] n 20 mg 4-25 tablet by ity of tablet 00:00: mouth [place] 00 daily. Medical Branch methocarbam 2-0 Yes 750mg Take 750 U nivers ol 2-28 mg by ity of (ROBAXIN) 14:01: mouth 3 [place] 750 mg 43 (three) Medical tablet times Branch daily as needed. methocarbam 2-0 Yes 750mg Take 750 U nivers ol 2-28 mg by ity of (ROBAXIN) 14:01: mouth 3 [place] 750 mg 43 (three) Medical tablet times Branch daily as needed. methocarbam 2-0 Yes 750mg Take 750 U nivers ol 2-28 mg by ity of (ROBAXIN) 14:01: mouth 3 [place] 750 mg 43 (three) Medical tablet times Branch daily as needed. methocarbam 2-0 Yes 750mg Take 750 U nivers ol 2-28 mg by ity of (ROBAXIN) 14:01: mouth 3 [place] 750 mg 43 (three) Medical tablet times Branch daily as needed. methocarbam 2022-0 Yes 750mg Take 750 U nivers ol 2-28 mg by ity of (ROBAXIN) 14:01: mouth 3 [place] 750 mg 43 (three) Medical tablet times Branch daily as needed. methocarbam 2022-0 Yes 750mg Take 750 U nivers ol 2-28 mg by ity of (ROBAXIN) 14:01: mouth 3 [place] 750 mg 43 (three) Medical tablet times Branch daily as needed. methocarbam 2022-0 Yes 750mg Take 750 U nivers ol 2-28 mg by ity of (ROBAXIN) 14:01: mouth 3 [place] 750 mg 43 (three) Medical tablet times Branch daily as needed. methocarbam 2022-0 Yes 750mg Take 750 U nivers ol 2-28 mg by ity of (ROBAXIN) 14:01: mouth 3 [place] 750 mg 43 (three) Medical tablet times Branch daily as needed. methocarbam 2022-0 Yes 750mg Take 750 U nivers ol 2-28 mg by ity of (ROBAXIN) 14:01: mouth 3 [place] 750 mg 43 (three) Medical tablet times Branch daily as needed. methocarbam Yes 750mg Take 750 U nivers ol 2-28 mg by ity of (ROBAXIN) 14:01: mouth 3 [place] 750 mg 43 (three) Medical tablet times Branch daily as needed. fluticasone Yes [id number] 1{puff} Inhale 1 [facility] -umeclidin- 2-11 Puff ity of vilanter 00:00: daily. [place] [facility] Branch 100-62.5-25 mcg DsDv albuterol Yes [id number] 2{puff} Inhale 2 [facility] 90 2-11 Puffs ity of mcg/actuati 00:00: every 6 [place] as on inhaler 00 (six) Medical hours as Branch needed for Wheezing or Shortness of Breath. fluticasone Yes [id number] 1{puff} Inhale 1 [facility] -umeclidin- 2-11 Puff ity of vilanter 00:00: daily. [place] [facility] Branch 100-62.5-25 mcg DsDv albuterol Yes [id number] 2{puff} Inhale 2 [facility] 90 2-11 Puffs ity of mcg/actuati 00:00: every 6 [place] as on inhaler 00 (six) Medical hours as Branch needed for Wheezing or Shortness of Breath. fluticasone Yes [id number] 1{puff} Inhale 1 [facility] -umeclidin- 2-11 Puff ity of vilanter 00:00: daily. [place] [facility] Branch 100-62.5-25 mcg DsDv albuterol Yes [id number] 2{puff} Inhale 2 [facility] 90 2-11 Puffs ity of mcg/actuati 00:00: every 6 [place] as on inhaler 00 (six) Medical hours as Branch needed for Wheezing or Shortness of Breath. fluticasone 2021-0 Yes [id number] 1{puff} Inhale 1 [facility] -umeclidin- 2-11 Puff ity of vilanter 00:00: daily. [place] [facility] ELL[facility] Branch 100-62.5-25 mcg DsDv albuterol Yes [id number] 2{puff} Inhale 2 [facility] 90 2-11 Puffs ity of mcg/actuati 00:00: every 6 [place] as on inhaler 00 (six) Medical hours as Branch needed for Wheezing or Shortness of Breath. fluticasone 0 Yes [id number] 1{puff} Inhale 1 [facility] -umeclidin- 2-11 Puff ity of vilanter 00:00: daily. [place] ([address]) Branch 100-62.5-25 mcg DsDv albuterol Yes [id number] 2{puff} Inhale 2 [facility] 90 2-11 Puffs ity of mcg/actuati 00:00: every 6 [place] as on inhaler 00 (six) Medical hours as Branch needed for Wheezing or Shortness of Breath. fluticasone 0 Yes [id number] 1{puff} Inhale 1 [facility] -umeclidin- 2-11 Puff ity of vilanter 00:00: daily. [place] ([address]) Branch 100-62.5-25 mcg DsDv albuterol Yes [id number] 2{puff} Inhale 2 [facility] 90 2-11 Puffs ity of mcg/actuati 00:00: every 6 [place] as on inhaler 00 (six) Medical hours as Branch needed for Wheezing or Shortness of Breath. fluticasone 0 Yes [id number] 1{puff} Inhale 1 [facility] -umeclidin- 2-11 Puff ity of vilanter 00:00: daily. [place] ([address]) Branch 100-62.5-25 mcg DsDv albuterol 0 Yes [id number] 2{puff} Inhale 2 [facility] 90 2-11 Puffs ity of mcg/actuati 00:00: every 6 [place] as on inhaler 00 (six) Medical hours as Branch needed for Wheezing or Shortness of Breath. fluticasone 0 Yes [id number] 1{puff} Inhale 1 [facility] -umeclidin- 2-11 Puff ity of vilanter 00:00: daily. [place] ([address]) Branch 100-62.5-25 mcg DsDv albuterol Yes [id number] 2{puff} Inhale 2 [facility] 90 2-11 Puffs ity of mcg/actuati 00:00: every 6 [place] as on inhaler 00 (six) Medical hours as Branch needed for Wheezing or Shortness of Breath. fluticasone Yes [id number] 1{puff} Inhale 1 [facility] -umeclidin- 2-11 Puff ity of vilanter 00:00: daily. [place] [facility] Branch 100-62.5-25 mcg DsDv albuterol Yes [id number] 2{puff} Inhale 2 [facility] 90 2-11 Puffs ity of mcg/actuati 00:00: every 6 [place] as on inhaler 00 (six) Medical hours as Branch needed for Wheezing or Shortness of Breath. fluticasone Yes [id number] 1{puff} Inhale 1 [facility] -umeclidin- 2-11 Puff ity of vilanter 00:00: daily. [place] [facility] E[facility] Branch 100-62.5-25 mcg DsDv albuterol Yes [id number] 2{puff} Inhale 2 [facility] 90 2-11 Puffs ity of mcg/actuati 00:00: every 6 [place] as on inhaler 00 (six) Medical hours as Branch needed for Wheezing or Shortness of Breath. apixaban 2020-07 Yes [id number] 2.5mg Take 1 Un[facility] s 2.5 mg 2-08 tablet by ity of tablet 00:00: mouth 2 [place] (two) Medical times Branch daily. Indication s: blood clot in a deep vein of the extremitie s apixaban 2020-07 Yes [id number] 2.5mg Take 1 Un[facility] s 2.5 mg 2-08 tablet by ity of tablet 00:00: mouth 2 [place] (two) Medical times Branch daily. Indication s: blood clot in a deep vein of the extremitie s apixaban 2020-07- No [id number] 2.5mg Take 1 Unive rs 2.5 mg 2-08 08-12 tablet by ity of tablet 00:00: 00:00 mouth 2 [place] 00 :00 (two) Medical times Branch daily. Indication s: blood clot in a deep vein of the extremitie s KCL 20 mEq 2020-07 Yes 20meq Take 1 [facility] ers tablet 1-10 tablet by ity of 00:00: mouth 2 [place] 00 (two) Medical times Branch daily. spironolact 2020-07 Yes [id number] 25mg Take 1 [facility] one 25 mg 1-10 tablet by ity o f tablet 00:00: mouth [place] 00 daily. Medical Branch KCL 20 mEq 2020-07 Yes 20meq Take 1 [facility] ers tablet 1-10 tablet by ity of 00:00: mouth 2 00 (two) Medical times Branch daily. spironolact 2020-07 Yes [id number] 25mg Take 1 [facility] one 25 mg 1-10 tablet by ity o f tablet 00:00: mouth [place] 00 daily. Medical Branch KCL 20 mEq 2020-07 Yes 20meq Take 1 Univ ers tablet 1-10 tablet by ity of 00:00: mouth 2 [place] 00 (two) Medical times Branch daily. spironolact 2020-07 Yes [id number] 25mg Take 1 [facility] one 25 mg 1-10 tablet by ity o f tablet 00:00: mouth [place] 00 daily. Medical Branch spironolact 2020-07 Yes [id number] 25mg Take 1 [facility] one 25 mg 1-10 tablet by ity o f tablet 00:00: mouth [place] 00 daily. Medical Branch spironolact 2020-07- No [id number] 25mg Take 1 [facility] one 25 mg 1-10 10-11 tablet by ity of tablet 00:00: 00:00 mouth [place] 00 :00 daily. Medical Branch KCL 20 mEq 2020-07- No 20meq Take 1 Uni vers tablet 1-10 08-22 tablet by ity of 00:00: 00:00 mouth 2 [place] 00 :00 (two) Medical times Branch daily. Nystatin Nystatin 2020-07- No 1{appli Nystatin [id number] 0-29 11-11 cation} [id number] UNIT/GM UNIT/GM 00:00: 00:00 UNIT/GM 00 :00 Lidocaine 5 Lidocaine 5 No 1{appli TID % % 5-25 cation_ 00:00: as_need 00 ed} Lidocaine 5 Lidocaine 5 No 1{appli TID Lidocaine % % 5-25 cation_ 5 % 00:00: as_need 00 ed} Lidocaine 5 Lidocaine 5 2020- No 1{appli TID Lidocaine % % 5-25 cation_ 5 % 00:00: as_need 00 ed} Lidocaine 5 Lidocaine 5 2020- No 1{appli TID Lidocaine % % 5-25 cation_ 5 % 00:00: as_need 00 ed} Lidocaine 5 Lidocaine 5 2020- No 1{appli TID Lidocaine % % 5-25 cation_ 5 % 00:00: as_need 00 ed} Lidocaine 5 Lidocaine 5 No 1{appli TID Lidocaine % % 5-25 cation_ 5 % 00:00: as_need 00 ed} Lidocaine 5 Lidocaine 5 No 1{appli TID Lidocaine % % 5-25 cation_ 5 % 00:00: as_need 00 ed} Lidocaine 5 Lidocaine 5 No 1{appli TID Lidocaine % % 5-25 cation_ 5 % 00:00: as_need 00 ed} Lidocaine 5 Lidocaine 5 No 1{appli TID Lidocaine % % 5-25 cation_ 5 % 00:00: as_need 00 ed} Lidocaine 5 Lidocaine 5 No 1{appli TID Lidocaine % % 5-25 cation_ 5 % 00:00: as_need 00 ed} Lidocaine 5 Lidocaine 5 No 1{appli TID Lidocaine % % 5-25 cation_ 5 % 00:00: as_need 00 ed} Valtrex 1 Valtrex 1 2020-2020- No 1{table TID GM GM 5-25 - t} 00:00: 00:00 00 :00 Valtrex 1 Valtrex 1 2020-0 2020- No 1{table TID Valtrex 1 GM GM 5-25 06-01 t} GM 00:00: 00:00 00 :00 atorvastati Yes 40mg Take 1 Univ ers n 40 mg 5-06 tablet by ity of tablet 00:00: mouth [place] 00 daily. Medical Branch fluticasone Yes 1{puff} Inhale 1 [facility] furoate-sebastian 2-05 Puff ity of anteroL 00:00: daily. 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 Indication s: blood clot in a deep vein of the extremitie s KCL 20 mEq 2019-07 Yes TAKE 1 Unive rs tablet 2-21 TABLET BY ity of 00:00: MOUTH [place] 00 TWICE A Medical DAY Branch allopurinoL 2019-07 Yes 300mg Take 300 U nivers 300 mg 2-01 mg by ity of tablet 20:32: mouth [place] 07 daily. Medical Branch spironolact 2019-07 Yes Essential 25mg Take 1 [facility] one 25 mg 2-01 hypertensio tablet by ity of tablet 00:00: n mouth [place] 00 daily. Medical Branch metoprolol Yes 25mg Take 1 Unive rs succinate 9-25 tablet by ity o f XL 25 mg 24 00:00: mouth [place] hr tablet 00 daily. Medical Branch Omeprazole Omeprazole Yes [place] 1 capsule [place] 03-05 [place] 30 minutes [facility] 00:00: before - [facility] [address] [facility] bumetanide 2019-0 Yes Chronic 2mg Take 2 Un bautista 1 mg tablet 8-24 heart tablets by i ty of 00:00: failure mouth [place] 00 with every Medical preserved morning Branch ejection and fraction evening. traZODONE Yes 100mg Take 100 Uni vers 100 mg 6-01 mg by ity of tablet 21:05: mouth at [place] 50 bedtime. Medical Branch HYDROmorphO Yes Obstructive 2mg Take 2 mg [facility] ne 4 mg 6-01 sleep apnea by mouth 4 ity of tablet 21:05: syndrome (four) [place] 50 times Medical daily. Branch Colchicine Colchicine No QD Colchicine 0.6 MG 0.6 MG 4-17 0.6 MG 00:00: 00 Colchicine Colchicine No QD Colchicine 0.6 MG 0.6 MG 4-17 0.6 MG 00:00: 00 Colchicine Colchicine 2019-0 No QD Col[place] 0.6 MG 0.6 MG 4-17 0.6 MG 00:00: 00 Colchicine Colchicine 2019- No QD Colchicine 0.6 MG 0.6 MG 4-17 0.6 MG 00:00: 00 Colchicine Colchicine 2020-0 No QD Colchicine 0.6 MG 0.6 MG 4-17 0.6 MG 00:00: 00 Colchicine Colchicine 2020-0 No QD Colchicine 0.6 MG 0.6 MG 4-17 0.6 MG 00:00: 00 Colchicine Colchicine 2020-0 No QD Col[place]icine 0.6 MG 0.6 MG 4-17 0.6 MG 00:00: 00 Colchicine Colchicine 2020-0 No QD Col[place]icine 0.6 MG 0.6 MG 4-17 0.6 MG 00:00: 00 Colchicine Colchicine 2020-0 No QD Col[place]icine 0.6 MG 0.6 MG 4-17 0.6 MG 00:00: 00 Colchicine Colchicine 2020-0 No QD Colchicine 0.6 MG 0.6 MG 4-17 0.6 MG 00:00: 00 Colchicine Colchicine 2020-0 No QD Colchicine 0.6 MG 0.6 MG 4-17 0.6 MG 00:00: 00 Colchicine Colchicine 2020-0 No QD Colchicine 0.6 MG 0.6 MG 4-17 0.6 MG 00:00: Colchicine Colchicine 2020-0 No QD 0.6 MG 0.6 MG 4-17 00:00: 00 Colchicine Colchicine 2020-0 No QD Colchicine 0.6 MG 0.6 MG 4-17 0.6 MG 00:00: 00 Colchicine Colchicine 2020-0 No QD Colchicine 0.6 MG 0.6 MG 4-17 0.6 MG 00:00: 00 Colchicine Colchicine 2020-0 No QD Colchicine 0.6 MG 0.6 MG 4-17 0.6 MG 00:00: 00 Colchicine Colchicine 2020-0 No QD Colchicine 0.6 MG 0.6 MG 4-17 0.6 MG 00:00: 00 Colchicine Colchicine 2020-0 No QD Colchicine 0.6 MG 0.6 MG 4-17 0.6 MG 00:00: 00 Colchicine Colchicine 2020-0 No QD Colchicine 0.6 MG 0.6 MG 4-17 0.6 MG 00:00: 00 Colchicine Colchicine 2020-0 No QD Colchicine 0.6 MG 0.6 MG 4-17 0.6 MG 00:00: 00 Colchicine Colchicine 2020-0 No QD Colchicine 0.6 MG 0.6 MG 4-17 0.6 MG 00:00: 00 Colchicine Colchicine 2020-0 No QD Colchicine 0.6 MG 0.6 MG 4-17 0.6 MG 00:00: 00 Colchicine Colchicine 0 No QD Colchicine 0.6 MG 0.6 MG 4-17 0.6 MG 00:00: Colchicine Colchicine 0 No QD Colchicine 0.6 MG 0.6 MG 4-17 0.6 MG 00:: Colchicine Colchicine 0 No QD Colchicine 0.6 MG 0.6 MG 4-17 0.6 MG 00:00: Colchicine Colchicine 0 No QD Colchicine 0.6 MG 0.6 MG 4-17 0.6 MG 00:00: Colchicine Colchicine 0 No QD Colchicine 0.6 MG 0.6 MG 4-17 0.6 MG 00:00: Colchicine Colchicine 0 No QD Colchicine 0.6 MG 0.6 MG 4-17 0.6 MG 00:: Colchicine Colchicine No QD Colchicine 0.6 MG 0.6 MG 4-17 0.6 MG 00:00: 00 ATORVASTATI 2020- No TAKE 1 Uni vers N 40 mg 4-14 -06 TABLET BY ity of tablet 00:00: 00:00 MOUTH [place] 00 :00 EVERY DAY Medical Branch methocarbam 2019-0 Yes 750mg Take 750 U nivers ol 2-28 mg by ity of (ROBAXIN) 21:42: mouth 3 [place] 750 mg 03 (three) Medical tablet times Branch daily as needed. benzonatate 2019-0 Yes Bronchitis 100mg Take 1 [facility] 100 mg 2-28 capsule by ity of capsule 00:00: mouth 3 [place] 00 (three) Medical times Branch daily as needed for Cough. benzonatate 2020-0 Yes [id number] 100mg Take 1 [facility] 100 mg 2-28 capsule by ity of capsule 00:00: mouth 3 [place] 00 (three) Medical times Branch daily as needed for Cough. benzonatate 2020-0 Yes [id number] 100mg Take 1 [facility] 100 mg 2-28 capsule by ity of capsule 00:00: mouth 3 [place] 00 (three) Medical times Branch daily as needed for Cough. benzonatate 2020-0 Yes [id number] 100mg Take 1 [facility] 100 mg 2-28 capsule by ity of capsule 00:00: mouth 3 [place] 00 (three) Medical times Branch daily as needed for Cough. benzonatate 2020-0 Yes [id number] 100mg Take 1 [facility] 100 mg 2-28 capsule by ity of capsule 00:00: mouth 3 (three) Medical times Branch daily as needed for Cough. benzonatate 2020-0 Yes [id number] 100mg Take 1 [facility] 100 mg 2-28 capsule by ity of capsule 00:00: mouth 3 (three) Medical times Branch daily as needed for Cough. benzonatate 2020-0 Yes [id number] 100mg Take 1 [facility] 100 mg 2-28 capsule by ity of capsule 00:00: mouth 3 (three) Medical times Branch daily as needed for Cough. benzonatate 2020-0 Yes [id number] 100mg Take 1 [facility] 100 mg 2-28 capsule by ity of capsule 00:00: mouth 3 (three) Medical times Branch daily as needed for Cough. benzonatate 2020-0 Yes [id number] 100mg Take 1 [facility] 100 mg 2-28 capsule by ity of capsule 00:00: mouth 3 (three) Medical times Branch daily as needed for Cough. benzonatate 2020-0 Yes [id number] 100mg Take 1 [facility] 100 mg 2-28 capsule by ity of capsule 00:00: mouth 3 (three) Medical times Branch daily as needed for Cough. benzonatate 2020-0 Yes [id number] 100mg Take 1 [facility] 100 mg 2-28 capsule by ity of capsule 00:00: mouth 3 (three) Medical times Branch daily as needed for Cough. Ventolin Ventolin 2019-0 No 2{puffs QID Ventolin HFA 108 (90 HFA 108 (90 5-29 _as_nee HFA 108 Base) Base) 00:00: ded} (90 Base) MCG/ACT MCG/ACT 00 MCG/ACT Ventolin Ventolin 2019-0 No 2{puffs QID Ventolin HFA 108 (90 HFA 108 (90 5-29 _as_nee HFA 108 Base) Base) 00:00: ded} (90 Base) MCG/ACT MCG/ACT 00 MCG/ACT Ventolin Ventolin 2019-0 No 2{puffs QID Ventolin HFA 108 (90 HFA 108 (90 5-29 _as_nee HFA 108 Base) Base) 00:00: ded} (90 Base) MCG/ACT MCG/ACT 00 MCG/ACT Ventolin Ventolin 2019-0 No 2{puffs QID Ventolin HFA 108 (90 HFA 108 (90 5-29 _as_nee HFA 108 Base) Base) 00:00: ded} (90 Base) MCG/ACT MCG/ACT 00 MCG/ACT Ventolin Ventolin 2019-0 No 2{puffs QID Ventolin HFA 108 (90 HFA 108 (90 5-29 _as_nee HFA 108 Base) Base) 00:00: ded} (90 Base) MCG/ACT MCG/ACT 00 MCG/ACT Ventolin Ventolin 2019-0 No 2{puffs QID Ventolin HFA 108 (90 HFA 108 (90 5-29 _as_nee HFA 108 Base) Base) 00:00: ded} (90 Base) MCG/ACT MCG/ACT 00 MCG/ACT Ventolin Ventolin 2019-0 No 2{puffs QID Ventolin HFA 108 (90 HFA 108 (90 5-29 _as_nee HFA 108 Base) Base) 00:00: ded} (90 Base) MCG/ACT MCG/ACT 00 MCG/ACT Ventolin Ventolin 2019-0 No 2{puffs QID Ventolin HFA 108 (90 HFA 108 (90 5-29 _as_nee HFA 108 Base) Base) 00:00: ded} (90 Base) MCG/ACT MCG/ACT 00 MCG/ACT Ventolin Ventolin 2019-0 No 2{puffs QID Ventolin HFA 108 (90 HFA 108 (90 5-29 _as_nee HFA 108 Base) Base) 00:00: ded} (90 Base) MCG/ACT MCG/ACT 00 MCG/ACT Ventolin Ventolin 2019-0 No 2{puffs QID Ventolin HFA 108 (90 HFA 108 (90 5-29 _as_nee HFA 108 Base) Base) 00:00: ded} (90 Base) MCG/ACT MCG/ACT 00 MCG/ACT Ventolin Ventolin 2019-0 No 2{puffs QID Ventolin HFA 108 (90 HFA 108 (90 5-29 _as_nee HFA 108 Base) Base) 00:00: ded} (90 Base) MCG/ACT MCG/ACT 00 MCG/ACT Ventolin Ventolin 2019-0 No 2{puffs QID Ventolin HFA 108 (90 HFA 108 (90 5-29 _as_nee HFA 108 Base) Base) 00:00: ded} (90 Base) MCG/ACT MCG/ACT 00 MCG/ACT Ventolin Ventolin 2019-0 No 2{puffs QID Ventolin HFA 108 (90 HFA 108 (90 5-29 _as_nee HFA 108 Base) Base) 00:00: ded} (90 Base) MCG/ACT MCG/ACT 00 MCG/ACT Ventolin Ventolin 2019-0 No 2{puffs QID HFA 108 (90 HFA 108 (90 5-29 _as_nee Base) Base) 00:00: ded} MCG/ACT MCG/ACT 00 Ventolin Ventolin 2019-0 No 2{puffs QID Ventolin HFA 108 (90 HFA 108 (90 5-29 _as_nee HFA 108 Base) Base) 00:00: ded} (90 Base) MCG/ACT MCG/ACT 00 MCG/ACT Ventolin Ventolin 2019-0 No 2{puffs QID Ventolin HFA 108 (90 HFA 108 (90 5-29 _as_nee HFA 108 Base) Base) 00:00: ded} (90 Base) MCG/ACT MCG/ACT 00 MCG/ACT Ventolin Ventolin 2019-0 No 2{puffs QID Ventolin HFA 108 (90 HFA 108 (90 5-29 _as_nee HFA 108 Base) Base) 00:00: ded} (90 Base) MCG/ACT MCG/ACT 00 MCG/ACT Ventolin Ventolin 2019-0 No 2{puffs QID Ventolin HFA 108 (90 HFA 108 (90 5-29 _as_nee HFA 108 Base) Base) 00:00: ded} (90 Base) MCG/ACT MCG/ACT 00 MCG/ACT Ventolin Ventolin 2019-0 No 2{puffs QID Ventolin HFA 108 (90 HFA 108 (90 5-29 _as_nee HFA 108 Base) Base) 00:00: ded} (90 Base) MCG/ACT MCG/ACT 00 MCG/ACT Ventolin Ventolin 2019-0 No 2{puffs QID Ventolin HFA 108 (90 HFA 108 (90 5-29 _as_nee HFA 108 Base) Base) 00:00: ded} (90 Base) MCG/ACT MCG/ACT 00 MCG/ACT Ventolin Ventolin 2019-0 No 2{puffs QID Ventolin HFA 108 (90 HFA 108 (90 5-29 _as_nee HFA 108 Base) Base) 00:00: ded} (90 Base) MCG/ACT MCG/ACT 00 MCG/ACT Ventolin Ventolin 2019-0 No 2{puffs QID Ventolin HFA 108 (90 HFA 108 (90 5-29 _as_nee HFA 108 Base) Base) 00:00: ded} (90 Base) MCG/ACT MCG/ACT 00 MCG/ACT Ventolin Ventolin 2019-0 No 2{puffs QID Ventolin HFA 108 (90 HFA 108 (90 5-29 _as_nee HFA 108 Base) Base) 00:00: ded} (90 Base) MCG/ACT MCG/ACT 00 MCG/ACT Ventolin Ventolin 2019-0 No 2{puffs QID Ventolin HFA 108 (90 HFA 108 (90 5-29 _as_nee HFA 108 Base) Base) 00:00: ded} (90 Base) MCG/ACT MCG/ACT 00 MCG/ACT Ventolin Ventolin 2019-0 No 2{puffs QID Ventolin HFA 108 (90 HFA 108 (90 5-29 _as_nee HFA 108 Base) Base) 00:00: ded} (90 Base) MCG/ACT MCG/ACT 00 MCG/ACT Ventolin Ventolin 2019-0 No 2{puffs QID Ventolin HFA 108 (90 HFA 108 (90 5-29 _as_nee HFA 108 Base) Base) 00:00: ded} (90 Base) MCG/ACT MCG/ACT 00 MCG/ACT Ventolin Ventolin 2019-0 No 2{puffs QID Ventolin HFA 108 (90 HFA 108 (90 5-29 _as_nee HFA 108 Base) Base) 00:00: ded} (90 Base) MCG/ACT MCG/ACT 00 MCG/ACT Ventolin Ventolin 2019-0 No 2{puffs QID Ventolin HFA 108 (90 HFA 108 (90 5-29 _as_nee HFA 108 Base) Base) 00:00: ded} (90 Base) MCG/ACT MCG/ACT 00 MCG/ACT Ventolin Ventolin 2019-0 No 2{puffs QID Ventolin HFA 108 (90 HFA 108 (90 5-29 _as_nee HFA 108 Base) Base) 00:00: ded} (90 Base) MCG/ACT MCG/ACT 00 MCG/ACT DULoxetine Yes TAKE ONE Uni vers 60 mg 7-06 CAPSULE BY ity of capsule 00:00: MOUTH EVERY DAY [facility] DULoxetine 0 Yes TAKE ONE Uni vers 60 mg 7-06 CAPSULE BY ity of capsule 00:00: MOUTH 00 EVERY DAY [facility] DULoxetine 0 Yes TAKE ONE Uni vers 60 mg 7-06 CAPSULE BY ity of capsule 00:00: MOUTH 00 EVERY DAY [facility] DULoxetine Yes TAKE ONE Uni vers 60 mg 7-06 CAPSULE BY ity of capsule 00:00: MOUTH 00 EVERY DAY [facility] DULoxetine Yes TAKE ONE Uni vers 60 mg 7-06 CAPSULE BY ity of capsule 00:00: MOUTH 00 EVERY DAY [facility] DULoxetine Yes TAKE ONE Uni vers 60 mg 7-06 CAPSULE BY ity of capsule 00:00: MOUTH 00 EVERY DAY [facility] DULoxetine 0 Yes TAKE ONE Uni vers 60 mg 7-06 CAPSULE BY ity of capsule 00:00: MOUTH 00 EVERY DAY [facility] DULoxetine 0 Yes TAKE ONE Uni vers 60 mg 7-06 CAPSULE BY ity of capsule 00:00: MOUTH 00 EVERY DAY [facility] DULoxetine 0 Yes TAKE ONE Uni vers 60 mg 7-06 CAPSULE BY ity of capsule 00:00: MOUTH EVERY DAY [facility] DULoxetine 0 Yes TAKE ONE Uni vers 60 mg 7-06 CAPSULE BY ity of capsule 00:00: MOUTH 00 EVERY DAY [facility] DULoxetine 0 Yes TAKE ONE Uni vers 60 mg 7-06 CAPSULE BY ity of capsule 00:00: MOUTH 00 EVERY DAY [facility] naproxen 0 Yes 500mg Take 1 Univer s 500 mg 2-09 tablet by ity of tablet 00:00: mouth 2 (two) Medical times [facility] daily with meals. naproxen 0 Yes 500mg Take 1 Univer s 500 mg 2-09 tablet by ity of tablet 00:00: mouth 2 (two) Medical times [facility] daily with meals. naproxen 2018-0 Yes 500mg Take 1 Univer s 500 mg 2-09 tablet by ity of tablet 00:00: mouth 2 00 (two) Medical times [facility] daily with meals. naproxen 2018-0 Yes 500mg Take 1 Univer s 500 mg 2-09 tablet by ity of tablet 00:00: mouth 2 00 (two) Medical times Branch daily with meals. naproxen 2018-0 Yes 500mg Take 1 Univer s 500 mg 2-09 tablet by ity of tablet 00:00: mouth 2 00 (two) Medical times [facility] daily with meals. naproxen 2018-0 Yes 500mg Take 1 Univer s 500 mg 2-09 tablet by ity of tablet 00:00: mouth 2 (two) Medical times Branch daily with meals. naproxen 2018-0 Yes 500mg Take 1 Univer s 500 mg 2-09 tablet by ity of tablet 00:00: mouth 2 (two) Medical times Branch daily with meals. naproxen 2018-0 Yes 500mg Take 1 Univer s 500 mg 2-09 tablet by ity of tablet 00:00: mouth (two) Medical times Branch daily with meals. naproxen 2018-0 Yes 500mg Take 1 Univer s 500 mg 2-09 tablet by ity of tablet 00:00: mouth (two) Medical times Branch daily with meals. naproxen 2018-0 Yes 500mg Take 1 Univer s 500 mg 2-09 tablet by ity of tablet 00:00: mouth 2 (two) Medical times Branch daily with meals. naproxen 2018-0 Yes 500mg Take 1 Univer s 500 mg 2-09 tablet by ity of tablet 00:00: mouth 2 (two) Medical times Branch daily with meals. Trazodone 2015-07 No Notes: Memori a Hydrochlori 0-06 (Same As: l de 100 MG 02:00: Desyrel) Herm jesse Oral Tablet 00 Trazodone 2015-07 No Notes: Memori a Hydrochlori 0-06 (Same As: l de 100 MG 02:00: Desyrel) Herm jesse Oral Tablet 00 Trazodone 2015-07 No Notes: Memori a Hydrochlori 0-06 (Same As: l de 100 MG 02:00: Desyrel) Herm jesse Oral Tablet 00 Ativan 2015-07 No Notes: Memoria 0-05 (Same as: l 15:57: Ativan) Alexander Ativan 2015-07 No Notes: Memoria 0-05 (Same as: l 15:57: Ativan) Alexander Ativan 2015-07 No Notes: Memoria 0-05 (Same as: l 15:57: Ativan) Alexander Aspirin 2015-07 No Notes: Do Memor ia 0-05 not crush l 14:00: or chew. Eliot (Same As: Ecotrin) Potassium 2015-07 No 20 mEq, Memor ia Chloride 20 0-05 Route: PO, l MEQ 14:00: Drug form: Eliot Extended 00 ERTAB, Release Daily, Tablet Dosing [...] 30 day, Stop date: 05/05/16 9:00:00 CDT Aspirin 2015-07 No Notes: Do Memor ia 0-05 not crush l 14:00: or chew. Alexander 00 (Same As: Ecotrin) Potassium 2015-07 No 20 mEq, Memor ia Chloride 20 0-05 Route: PO, l MEQ 14:00: Drug form: Eliot Extended 00 ERTAB, Release Daily, Tablet Dosing Weight 90.909, kg, Start date: 04/06/16 9:00:00 CDT, Duration: 30 day, Stop date: 05/05/16 9:00:00 CDT Aspirin 2015-07 No Notes: Do Memor ia 0-05 not crush l 14:00: or chew. Alexander (Same As: Ecotrin) Potassium 2015-07 No 20 mEq, Memor ia Chloride 20 0-05 Route: PO, l MEQ 14:00: Drug form: Alexander Extended 00 ERTAB, Release Daily, Tablet Dosing [...] 0-05 (Same as: l 12:00: KCL) Eliot 00 Infuse over 2 hours. potassium 2015-07 No Notes: Memori a chloride 0-05 (Same as: l 12:00: KCL) Alexander 00 Infuse over 2 hours. potassium 2015-07 No Notes: Memori a chloride 0-05 (Same as: l 12:00: KCL) Alexander 00 Infuse over 2 hours. Furosemide 2015-07 Yes 20 mg = 1 Me moria 20 MG Oral 0-05 tab, PO, l Tablet 11:52: Daily, # Alexander 00 60 tab, 0 Refill(s) Potassium 2015-07 Yes 40 mEq = 2 Me moria Chloride 20 0-05 tab, PO, l MEQ 11:52: BID, # 60 Eliot Extended 00 tab, 0 Release Refill(s) Tablet Furosemide 2015-07 Yes 20 mg = 1 Me moria 20 MG Oral 0-05 tab, PO, l Tablet 11:52: Daily, # Eliot 00 60 tab, 0 Refill(s) Potassium 2015-07 Yes 40 mEq = 2 Me moria Chloride 20 0-05 tab, PO, l MEQ 11:52: BID, # 60 Alexander Extended 00 tab, 0 Release Refill(s) Tablet Furosemide 2015-07 Yes 20 mg = 1 Me moria 20 MG Oral 0-05 tab, PO, l Tablet 11:52: Daily, # Eliot 00 60 tab, 0 Refill(s) Potassium 2015-07 Yes 40 mEq = 2 Me moria Chloride 20 0-05 tab, PO, l MEQ 11:52: BID, # 60 Alexander Extended 00 tab, 0 Release Refill(s) Tablet potassium 2015-07 No Notes: Memori a chloride 0-05 (Same as: l 11:00: KCL) Eliot 00 Infuse over 2 hours. potassium 2015-07 No Notes: Memori a chloride 0-05 (Same as: l 11:00: KCL) Alexander 00 Infuse over 2 hours. potassium 2015-07 No Notes: Memori a chloride 0-05 (Same as: l 11:00: KCL) Alexander 00 Infuse over 2 hours. celecoxib 2015-07 No 100 mg, Memor ia 100 MG Oral 0-04 PO, BID, # l Capsule 21:12: 180 cap, 0 Herm jesse [Celebrex] 00 Refill(s) celecoxib 2015-07 No 100 mg, Memor ia 100 MG Oral 0-04 PO, BID, # l Capsule 21:12: 180 cap, 0 Herm jesse [Celebrex] 00 Refill(s) celecoxib 2015-07 No 100 mg, Memor ia 100 MG Oral 0-04 PO, BID, # l Capsule 21:12: 180 cap, 0 Herm jesse [Celebrex] 00 Refill(s) Furosemide 2015-07 No Notes: Memor ia 40 MG Oral 0-04 (Same as: l Tablet 18:29: Lasix) May Megan nn [Lasix] 00 cause GI upset. Give with food or milk. Furosemide 2015-07 No Notes: Memor ia 40 MG Oral 0-04 (Same as: l Tablet 18:29: Lasix) May Megan nn [Lasix] 00 cause GI upset. Give with food or milk. Furosemide 2015-07 No Notes: Memor ia 40 MG Oral 0-04 (Same as: l Tablet 18:29: Lasix) May Megan nn [Lasix] 00 cause GI upset. Give with food or milk. Potassium 2015-07 No 20 mEq, 1 Mem oria Chloride 20 0-04 tab, l MEQ 16:43: Route: PO, Alexander Extended 00 Drug form: Release ERTAB, Tablet Daily, Dosing Weight 90.909, kg, Priority: NOW, Start date: 04/05/16 11:43:00 CDT, Duration: 30 day, Stop date: 05/05/16 9:00:00 CDT Furosemide 2016-1 No 20 mg, Memor ia 20 MG Oral 0-04 Route: PO, l Tablet 16:43: Drug form: Megan nn [Lasix] 00 TAB, Daily, Dosing Weight 90.909, kg, Priority: NOW, Start date: 04/05/16 11:43:00 CDT, Duration: 30 day, Stop date: 05/05/16 9:00:00 CDT Potassium 2015- No 20 mEq, 1 Mem oria Chloride 20 0-04 tab, l MEQ 16:43: Route: PO, Eliot Extended 00 Drug form: Release ERTAB, Tablet Daily, Dosing Weight 90.909, kg, Priority: NOW, Start date: 04/05/16 11:43:00 CDT, Duration: 30 day, Stop date: 05/05/16 9:00:00 CDT Furosemide 2015- No 20 mg, Memor ia 20 MG Oral 0-04 Route: PO, l Tablet 16:43: Drug form: Megan nn [Lasix] 00 TAB, Daily, Dosing Weight 90.909, kg, Priority: NOW, Start date: 04/05/16 11:43:00 CDT, Duration: 30 day, Stop date: 05/05/16 9:00:00 CDT Potassium 2015-1 No 20 mEq, 1 Mem oria Chloride 20 0-04 tab, l MEQ 16:43: Route: PO, Eliot Extended 00 Drug form: Release ERTAB, Tablet Daily, Dosing Weight 90.909, kg, Priority: NOW, Start date: 04/05/16 11:43:00 CDT, Duration: 30 day, Stop date: 05/05/16 9:00:00 CDT Furosemide 2016-1 No 20 mg, Memor ia 20 MG Oral 0-04 Route: PO, l Tablet 16:43: Drug form: Megan nn [Lasix] 00 TAB, Daily, Dosing Weight 90.909, kg, Priority: NOW, Start date: 04/05/16 11:43:00 CDT, Duration: 30 day, Stop date: 05/05/16 9:00:00 CDT potassium 2015-07 No Notes: Memori a chloride 0-04 (Same as: l 14:00: K-Dur 20) Alexander 00 "Do Not Crush" With food and full glass of water potassium 2015-07 No Notes: Memori a chloride 0-04 (Same as: l 14:00: K-Dur 20) Eliot 00 "Do Not Crush" With food and full glass of water potassium 2015-07 No Notes: Memori a chloride 0-04 (Same as: l 14:00: K-Dur 20) Eliot 00 "Do Not Crush" With food and full glass of water potassium 2015-07 No Notes: Memori a chloride 0-04 (Same as: l 08:24: KCL) Eliot 00 Infuse over 2 hours. potassium 2015-07 No Notes: Memori a chloride 0-04 (Same as: l 08:24: KCL) Eliot 00 Infuse over 2 hours. potassium 2015-07 No Notes: Memori a chloride 0-04 (Same as: l 08:24: KCL) Alexander 00 Infuse over 2 hours. Lasix 2015-07 No Notes: Memoria 0-03 (Same as: l 22:00: Lasix) Eliot 00 MEDICATION WASTE Product Size: 40 mg Product Wasted: ___ mg Lasix 2015-07 No Notes: Memoria 0-03 (Same as: l 22:00: Lasix) Eliot 00 MEDICATION WASTE Product Size: 40 mg Product Wasted: ___ mg Lasix 2015-07 No Notes: Memoria 0-03 (Same as: l 22:00: Lasix) Alexander 00 MEDICATION WASTE Product Size: 40 mg Product Wasted: ___ mg iodixanol 2015-07 No Notes: Memori a 0-03 (Same as: l 19:50: Visipaque) Alexander 00 . WASTE: F/P - Black; E - Municipal Trash Bin iodixanol 2015-07 No Notes: Memori a 0-03 (Same as: l 19:50: Visipaque) Alexander 00 . WASTE: F/P - Black; E - Municipal Trash Bin iodixanol 2015-07 No Notes: Memori a 0-03 (Same as: l 19:50: Visipaque) Eliot 00 . WASTE: F/P - Black; E - Municipal Trash Bin Albuterol 2015-07 No Notes: Memori a 0.833 MG/ML 0-03 (Same as: l 17:54: Duoneb) Eliot Ipratropium 00 [place] 0.167 MG/ML Inhalant Solution [DuoNeb] Albuterol 2015-07 No Notes: Memori a 0.833 MG/ML 0-03 (Same as: l 17:54: Duoneb) Eliot Ipratropium 00 [place] 0.167 MG/ML Inhalant Solution [DuoNeb] Albuterol 2015-07 No Notes: Memori a 0.833 MG/ML 0-03 (Same as: l 17:54: Duoneb) Eliot Ipratropium 00 [place] 0.167 MG/ML Inhalant Solution [DuoNeb] Acetaminoph 2015-07 No Notes: Do M emoria en 325 MG / 0-03 not exceed l Hydrocodone 16:53: 4gm/day of Eliot Bitartrate 00 acetaminop 10 MG Oral hen. (Same Tablet as: Lowell [Lowell 325/10) 10/325] Acetaminoph 2015-07 No Notes: Do M emoria en 325 MG / 0-03 not exceed l Hydrocodone 16:53: 4gm/day of Alexander Bitartrate 00 acetaminop 10 MG Oral hen. (Same Tablet as: Lowell [Lowell 325/10) 10/325] Acetaminoph 2015-07 No Notes: Do M emoria en 325 MG / 0-03 not exceed l Hydrocodone 16:53: 4gm/day of Alexander Bitartrate 00 acetaminop 10 MG Oral hen. (Same Tablet as: Lowell [Lowell 325/10) 10/325] Ativan 2015-07 No Notes: Memoria 0-03 (Same as: l 16:34: Ativan) Eliot 00 Ativan 2015-07 No Notes: Memoria 0-03 (Same as: l 16:34: Ativan) Alexander 00 Ativan 2015-07 No Notes: Memoria 0-03 (Same as: l 16:34: Ativan) Eliot 00 Robaxin 2015-07 No Notes: Memoria 0-03 (Same l 14:00: as:Robaxin Alexander ) Robaxin 2015-07 No Notes: Memoria 0-03 (Same l 14:00: as:Robaxin Alexander ) Robaxin 2015-07 No Notes: Memoria 0-03 (Same l 14:00: as:Robaxin Eliot ) tramadol 2015-07 Yes 50 mg = [...] 00 day, # 120 tab, 0 Refill(s) tramadol 2015-07 Yes 50 mg = 1 Manjinder nasir hydrochlori 0-03 tab, PO, l de 50 MG 10:33: Q4H, PRN Megan nn Oral Tablet 00 Pain Score [Ultram] 1-3, X 7 day, # 42 tab, 0 Refill(s) senna 02.05 Yes 8.6 mg = 1 Me moria [...] 00 day, # 120 tab, 0 Refill(s) tramadol 2015-07 Yes 50 mg = 1 [...] not exceed l Hydrocodone 10:31: 4gm/day of Alexander Bitartrate 00 acetaminop 10 MG Oral hen. (Same Tablet as: Lowell [Lowell 325/10) 10325] tramadol 2015-07 No Notes: Not Mem oria hydrochlori 0-03 to exceed l de 50 MG 10:31: 400mg/day. Her reed Oral Tablet 00 (Same As: [Ultram] Ultram) Acetaminoph 2015-07 No Notes: Do M emoria en 325 MG / 0-03 not exceed l Hydrocodone 10:31: 4gm/day of Alexander Bitartrate 00 acetaminop 10 MG Oral hen. (Same Tablet as: Lowell [Lowell 325/10) 10/325] tramadol 2015-07 No Notes: Not Mem oria hydrochlori 0-03 to exceed l de 50 MG 10:31: 400mg/day. Her reed Oral Tablet 00 (Same As: [Ultram] Ultram) Acetaminoph 2015-07 No Notes: Do M emoria en 325 MG / 0-03 not exceed l Hydrocodone 10:31: 4gm/day of Eliot Bitartrate 00 acetaminop 10 MG Oral hen. (Same Tablet as: Lowell [Lowell 325/10) 10/325] tramadol 2015-07 No Notes: Not Mem oria hydrochlori 0-03 to exceed l de 50 MG 10:31: 400mg/day. Her reed Oral Tablet 00 (Same As: [Ultram] Ultram) remove 2015-07 No Notes: Memoria patch 0-03 Remove l 02:00: patch 12 Eliot 00 hours after applicatio n each day. remove 2015-07 No Notes: Memoria patch 0-03 Remove l 02:00: patch 12 Eliot 00 hours after applicatio n each day. remove 2015-07 No Notes: Memoria patch 0-03 Remove l 02:00: patch 12 Alexander 00 hours after applicatio n each day. heparin 2015-07 No Notes: Memoria sodium, 0-02 porcine l porcine 21:00: heparin Eliot 2500 UNT/ML 00 Injectable Solution heparin 2015-07 No Notes: Memoria sodium, 0-02 porcine l porcine 21:00: heparin Alexander 2500 UNT/ML 00 Injectable Solution heparin 2015-07 No Notes: Memoria sodium, 0-02 [...] patch before applicatio n of new patch" Lidocaine 2015-07 No Notes: Memori a Hydrochlori 0-02 Apply only l de 0.05 14:00: once for Omer n MG/MG 00 up to 12 Transdermal hours in a Patch 24-hour [Lidoderm] period (12 hours on and 12 hours off). (Same as: Lidoderm) "Remove old patch before applicatio n of new patch" Lidocaine 2015-07 No Notes: Memori a Hydrochlori 0-02 Apply only l de 0.05 14:00: once for Omer n MG/MG 00 up to 12 Transdermal hours in a Patch 24-hour [Lidoderm] period (12 hours on and 12 hours off). (Same as: Lidoderm) "Remove old patch before applicatio n of new patch" phenol 2015-07 No Notes: Memoria 0-01 Chlorasept l 15:30: ic [place] Eliot (Same as: Chlorasept ic, Sore Throat [place]) WASTE: F/P - Black; E - Municipal Trash Bin phenol 2015-07 No Notes: Memoria 0-01 Chlorasept l 15:30: ic [place] Eliot 00 (Same as: Chlorasept ic, Sore Throat [place]) WASTE: F/P - Black; E - Municipal Trash Bin phenol 2015-07 No Notes: Memoria 0-01 Chlorasept l 15:30: ic [place] Alexander 00 (Same as: Chlorasept ic, Sore Throat [place]) WASTE: F/P - Black; E - Municipal Trash Bin Prinivil 2015-07 No Notes: Memoria 0-01 (Same as: l 14:00: Prinivil, Eliot 00 Zestril) atorvastati 2015-07 No Notes: Manjinder nasir n 0-01 (Same As: l 14:00: Lipitor) Alexander MaxEPA 2015-07 No Notes: Memoria 0-01 (Same as: l 14:00: MaxEPA, Alexander 00 [place] 3 fish oil ) Non-Formul carisa Drug Microzide 2015-07 No Notes: Memori a 0-01 (Same as: l 14:00: Microzide) Alexander influenza 2015-07 No Notes: Memori a virus [...] 2015-07 No 1 tab, Manjinder nasir thiazide 0- Route: PO, l 12.5 MG / 14:00: [...] 0-01 (Same as: l Tablet 14:00: Tricor) Prinivil 2015-07 No Notes: Memoria 0-01 (Same as: l 14:00: Prinivil, Zestril) atorvastati 2015-07 No Notes: Manjinder nasir n 0-01 (Same As: l 14:00: Lipitor) MaxEPA 2015-07 No Notes: Memoria 0-01 (Same as: l 14:00: MaxEPA, [place] 3 fish oil ) Non-Formul carisa Drug [...] 0-01 (Same As: l MG/ACTUAT 14:00: Spiriva) jesse Inhalant 00 Powder [Spiriva] multivitami 2015-07 [...] 0-01 (Same as: l Tablet 14:00: Tricor) Prinivil 2015-07 No Notes: Memoria 0-01 (Same as: l 14:00: Prinivil, Zestril) atorvastati 2015-07 No Notes: Manjinder nasir n 0-01 (Same As: l 14:00: Lipitor) MaxEPA 2015-07 No Notes: Memoria 0-01 (Same as: l 14:00: MaxEPA, [place] 3 fish oil ) Non-Formul carisa Drug [...] as:Thera) WASTE: F/P - Black; E - [employer] Bin Hydrochloro 2015-07 No 1 tab, Manjinder [...] Memoria 0-01 (Same as: l 11:41: Dilaudid) Eliot 00 Dilaudid 2015-07 No Notes: Memoria 0-01 (Same as: l 11:41: Dilaudid) Eliot 00 Dilaudid 2015-07 No Notes: Memoria 0-01 (Same as: l 11:41: Dilaudid) Eliot 00 Acetaminoph 2015-07 No Notes: Do M emoria en 325 MG / 0-01 not exceed l Hydrocodone 11:40: 4gm/day of Eliot Bitartrate 00 acetaminop 10 MG Oral hen. (Same Tablet as: Lowell [Lowell 325/10) 10/325] Acetaminoph 2015-07 No Notes: Do M emoria en 325 MG / 0-01 not exceed l Hydrocodone 11:40: 4gm/day of Eliot Bitartrate 00 acetaminop 10 MG Oral hen. (Same Tablet as: Lowell [Lowell 325/10) 10/325] Acetaminoph 2015-07 No Notes: Do M emoria en 325 MG / 0-01 not exceed l Hydrocodone 11:40: 4gm/day of Eliot Bitartrate 00 acetaminop 10 MG Oral hen. (Same Tablet as: Lowell [[place]ell 325/10) 10/325] Famotidine 2015-07 No Notes: Memor ia 0-01 (Same as: l 02:00: Pepcid) Alexander 00 Can be dilute in 5-10cc NS IVP: Slow IV push over at least 2 minutes. Acetaminoph 2015-07 No Notes: Manjinder nasir en 0-01 Infuse l 02:00: over 15 Eliot 00 minutes Do not exceed 4gm/day of acetaminop hen MEDICATION WASTE Product Size: 1000 mg Product Wasted: ___ mg Saline 2015-07 No Notes: Memoria Flush 0.9% 0-01 Same as: l 02:00: BD Eliot 00 Posiflush Sterile Docusate 2015-07 No Notes: Memoria 0-01 (Same as: l 02:00: Colace) Eliot 00 (Do Not Crush) sennosides, 2015-07 No Notes: Manjinder nasir LONG TERM 0-01 (Same as: l 02:00: Senokot) Eliot 00 Famotidine 2015-07 No Notes: Memor ia 0-01 (Same as: l 02:00: Pepcid) Eliot 00 Can be dilute in 5-10cc NS IVP: Slow IV push over at least 2 minutes. Acetaminoph 2015-07 No Notes: Manjinder nasir en 0-01 Infuse l 02:00: over 15 Eliot 00 minutes Do not exceed 4gm/day of acetaminop hen MEDICATION WASTE Product Size: 1000 mg Product Wasted: ___ mg Saline 2015-07 No Notes: Memoria Flush 0.9% 0-01 Same as: l 02:00: BD [place] 00 Posiflush Sterile Docusate 2015-07 No Notes: Memoria 0-01 (Same as: l 02:00: Colace) Eliot 00 (Do Not Crush) sennosides, 2015-07 No Notes: Manjinder nasir LONG TERM 0-01 (Same as: l 02:00: Senokot) Eliot Famotidine 2015-07 No Notes: Memor ia 0-01 (Same as: l 02:00: Pepcid) Eliot 00 Can be dilute in 5-10cc NS IVP: Slow IV push over at least 2 minutes. Acetaminoph 2015-07 No Notes: Manjinder nasir en 0-01 Infuse l 02:00: over 15 Eliot 00 minutes Do not exceed 4gm/day of acetaminop hen MEDICATION WASTE Product Size: 1000 mg Product Wasted: ___ mg Saline 2015-07 No Notes: Memoria Flush 0.9% 0-01 Same as: l 02:00: BD Alexander 00 Posiflush Sterile Docusate 2015-07 No Notes: Memoria 0-01 (Same as: l 02:00: Colace) Eliot 00 (Do Not Crush) sennosides, 2015-07 No Notes: Manjinder nasir LONG TERM 0-01 (Same as: l 02:00: Senokot) Eliot carvedilol No Notes: Memor ia 9-30 Give with l 22:00: food. Eliot 00 (Same As: Coreg) Folic Acid No Notes: Memor ia 9-30 (Same as: l 22:00: Folvite) Eliot carvedilol No Notes: Memor ia 9-30 Give with l 22:00: food. Eliot 00 (Same As: Coreg) Folic Acid No Notes: Memor ia 04-01 (Same as: l 22:00: Folvite) carvedilol No Notes: Memor ia 04-01 Give with l 22:00: food. (Same As: Coreg) Folic Acid No Notes: Memor ia 04-01 (Same as: l 22:00: Folvite) ceFAZolin No Notes: Memori a (SCIP) + 04-01 (Same As: l sodium 21:00: Ancef, Eliot chloride 00 Kefzol) 0.9% INJ 100 mL MEDICATION WASTE Product Size: 1000 mg Product Wasted: ___ mg ceFAZolin No Notes: Memori a (SCIP) + 04-01 (Same As: l sodium 21:00: Ancef, Alexander chloride 00 Kefzol) 0.9% INJ 100 mL MEDICATION WASTE Product Size: 1000 mg Product Wasted: ___ mg ceFAZolin No Notes: Memori a (SCIP) + 04-01 (Same As: l sodium 21:00: Ancef, Alexander chloride 00 Kefzol) 0.9% INJ 100 mL MEDICATION WASTE Product Size: 1000 mg Product Wasted: ___ mg ropinirole No Notes: Memor ia 04-01 (Same as: l 19:06: Requip) Alexander 00 ropinirole No Notes: Memor ia 04-01 (Same as: l 19:06: Requip) Alexander 00 ropinirole No Notes: Memor ia 04-01 (Same as: l 19:06: Requip) Dexamethaso No Notes: Manjinder nasir ne 04-01 Concentrat l 19:00: ion: Alexander 4mg/ml Dexamethaso No Notes: Manjinder nasir ne 04-01 Concentrat l 19:00: ion: Alexander 4mg/ml Dexamethaso No Notes: Manjinder nasir ne 04-01 Concentrat l 19:00: ion: Alexander 4mg/ml Robaxin 0 No Notes: Memoria 9-30 (Same l 18:51: as:Robaxin Eliot 00 ) Robaxin 0 No Notes: Memoria 9-30 (Same l 18:51: as:Robaxin Alexander 00 ) Robaxin 0 No Notes: Memoria 9-30 (Same l 18:51: as:Robaxin Alexander 00 ) Robaxin 0 No Notes: Memoria 9-30 (Same l 18:11: as:Robaxin [place] 00 ) Robaxin 0 No Notes: Memoria 9-30 (Same l 18:11: as:Robaxin [place] 00 ) Robaxin 0 No Notes: Memoria 9-30 (Same l 18:11: as:Robaxin [place] 00 ) Dexamethaso 2016-0 No 10 mg, Manjinder nasir ne 04-01 Route: l 18:06: IVP, ONCE, Eliot Dosing Weight 90.909, kg, Priority: NOW, Start date: 04/01/16 13:06:00 CDT, Stop date: 04/01/16 13:06:00 CDT Dexamethaso 2016-0 No 10 mg, Manjinder nasir ne 04-01 Route: l 18:06: IVP, ONCE, Alexander Dosing Weight 90.909, kg, Priority: NOW, Start date: 04/01/16 13:06:00 CDT, Stop date: 04/01/16 13:06:00 CDT Dexamethaso 2016-0 No 10 mg, Manjinder nasir ne 04-01 Route: l 18:06: IVP, ONCE, Alexander Dosing Weight 90.909, kg, Priority: NOW, Start date: 04/01/16 13:06:00 CDT, Stop date: 04/01/16 13:06:00 CDT Ofirmev 2015-0 No or = 50 Memori a 9-30 kg, Start l 17:13: date: 04/01/16 12:13:00 CDT Ofirmev 2016-0 No or = 50 Memori a 9-30 kg, Start l 17:13: date: 04/01/16 12:13:00 CDT Ofirmev 2015-0 No or = 50 Memori a 9-30 kg, Start l 17:13: date: 04/01/16 12:13:00 CDT Ondansetron No Notes: Manjinder nasir -30 (Same as: l 17:11: Zofran) MEDICATION WASTE Product Size: 4 mg Product Wasted: ___ mg Flumazenil No Notes: Memor ia -30 (Same as: l 17:11: Romazicon) Naloxone No Notes: Memoria 04-01 Same as l 17:11: Narcan Hydromorpho No 0.2 mg, Mem oria ne 30 Route: l 17:11: IVP, Alexander 00 Q5Min, Dosing Weight 90.909, kg, PRN Pain Score 7-10, Start date: 04/01/16 12:11:00 CDT, Duration: 4 doses or times, Stop date: Limited # of times Ondansetron No Notes: Manjinder nasir 04-01 (Same as: l 17:11: Zofran) 00 MEDICATION WASTE Product Size: 4 mg Product Wasted: ___ mg Flumazenil No Notes: Memor ia 04-01 (Same as: l 17:11: Romazicon) Naloxone No Notes: Memoria 04-01 Same as l 17:11: Narcan Hydromorpho No 0.2 mg, Mem oria ne 04-01 Route: l 17:11: IVP, Alexander 00 Q5Min, Dosing Weight 90.909, kg, PRN Pain Score 7-10, Start date: 04/01/16 12:11:00 CDT, Duration: 4 doses or times, Stop date: Limited # of times Ondansetron No Notes: Manjinder nasir -30 (Same as: l 17:11: Zofran) MEDICATION WASTE Product Size: 4 mg Product Wasted: ___ mg Flumazenil No Notes: Memor ia 9-30 (Same as: l 17:11: Romazicon) Naloxone No Notes: Memoria 9-30 Same as l 17:11: Narcan Hydromorpho No 0.2 mg, Mem oria ne 9-30 Route: l 17:11: IVP, Alexander 00 Q5Min, Dosing Weight 90.909, kg, PRN Pain Score 7-10, Start date: 04/01/16 12:11:00 CDT, Duration: 4 doses or times, Stop date: Limited # of times Dilaudid No Notes: Memoria 9-30 (Same as: l 17:03: Dilaudid) Dilaudid No Notes: Memoria 9-30 (Same as: l 17:03: Dilaudid) Dilaudid No Notes: Memoria 9-30 (Same as: l 17:03: Dilaudid) Labetalol No 10 mg, 2 Manjinder nasir 9-30 mL, Route: l 17:00: IVP, Drug form: INJ, Q15Min, Dosing Weight 90.909, kg, PRN Hypertensi on, Start date: 04/01/16 12:00:00 CDT, Duration: 3 doses or times, Stop date: 04/02/16 17:00:00 CDT Hydralazine No Notes: Manjinder nasir 9-30 (Same as: l 17:00: Apresoline ) Push over 5 minutes Labetalol No 10 mg, 2 Manjinder nasir 9-30 mL, Route: l 17:00: IVP, Drug form: INJ, Q15Min, Dosing Weight 90.909, kg, PRN Hypertensi on, Start date: 04/01/16 12:00:00 CDT, Duration: 3 doses or times, Stop date: 04/02/16 17:00:00 CDT Hydralazine No Notes: Manjinder nasir 9-30 (Same as: l 17:00: Apresoline ) Push over 5 minutes Labetalol No 10 mg, 2 Manjinder nasir 9-30 mL, Route: l 17:00: IVP, Drug form: INJ, Q15Min, Dosing Weight 90.909, kg, PRN Hypertensi on, Start date: 04/01/16 12:00:00 CDT, Duration: 3 doses or times, Stop date: 04/02/16 17:00:00 CDT Hydralazine No Notes: Manjinder nasir -30 (Same as: l 17:00: Apresoline Alexander ) Push over 5 minutes Robaxin No Notes: Memoria 9-30 (Same l 16:59: as:Robaxin Alexander ) Robaxin No Notes: Memoria 9-30 (Same l 16:59: as:Robaxin [place] ) Robaxin No Notes: Memoria -30 (Same l 16:59: as:Robaxin [place] ) Sodium No 1,000 mL, Memori a Chloride 04-01 Rate: 75 l 0.154 16:58: ml/hr, Eliot MEQ/ML 00 Infuse Injectable over: 13.3 Solution hr, Route: IV, Dosing Weight 90.909 kg, Total Volume: 1,000, Start date: 04/01/16 11:58:00 CDT, Duration: 30 day, Stop date: 05/01/16 11:57:00 CDT Dextrose No 6.25 gm, Memor ia 50% Syringe 04-01 12.5 mL, l 16:58: Route: Alexander 00 IVP, Drug Form: INJ, Dosing Weight 90.909, kg, PRN, PRN Abnormal Lab Result, Start date: 04/01/16 11:58:00 CDT, Duration: 30 day, Stop date: 05/01/16 11:57:00 CDT Regular No 60 units) Manjinder nasir Insulin, 04-01 WASTE: F/P l Human 100 16:58: - Black; E He rmann UNT/ML 00 - Injectable Municipal Solution Trash Bin Stable for 28 days at room temperatur e Expires in days from ____Date Saline No Notes: Memoria Flush 0.9% 04-01 Same as: l 16:58: BD [place] Posiflush Sterile Ondansetron No Notes: Manjinder nasir 9-30 (Same as: l 16:58: Zofran) MEDICATION WASTE Product Size: 4 mg Product Wasted: ___ mg Bisacodyl No Notes: Memori a 04-01 (Same As: l 16:58: Dulcolax, Bisco-Lax) Acetaminoph No Notes: Do M emoria en 325 MG / 04-01 not exceed l Hydrocodone 16:58: 4gm/day of Bitartrate 00 acetaminop 10 MG Oral hen. (Same Tablet as: [place] 325/10) Morphine No 2 mg, Memoria 04-01 Route: l 16:58: IVP, Q1H, Dosing Weight 90.909, kg, PRN Pain Score 7-10, Start date: 04/01/16 11:58:00 CDT, Duration: 30 day, Stop date: 05/01/16 11:57:00 CDT Dextrose No 6.25 gm, Memor ia 50% Syringe 04-01 12.5 mL, l 16:58: Route: IVP, Drug Form: INJ, Dosing Weight 90.909, kg, PRN, PRN Abnormal Lab Result, Start date: 04/01/16 11:58:00 CDT, Duration: 30 day, Stop date: 05/01/16 11:57:00 CDT Regular No 60 units) Manjinder nasir Insulin, 04-01 WASTE: F/P l Human 100 16:58: - Black; E He rmann UNT/ML 00 - Injectable Municipal Solution Trash Bin Stable for 28 days at room temperatur e Expires in days from ____Date Saline No Notes: Memoria Flush 0.9% 04-01 Same as: l 16:58: BD Posiflush Sterile Ondansetron No Notes: Manjinder nasir 04-01 (Same as: l 16:58: Zofran) MEDICATION WASTE Product Size: 4 mg Product Wasted: ___ mg Bisacodyl No Notes: Memori a 9-30 (Same As: l 16:58: Dulcolax, Eliot 00 Bisco-Lax) Acetaminoph No Notes: Do M emoria en 325 MG / 04-01 not exceed l Hydrocodone 16:58: 4gm/day of Eliot Bitartrate 00 acetaminop 10 MG Oral hen. (Same Tablet as: [place] 325/10) Morphine No 2 mg, Memoria 04-01 Route: l 16:58: IVP, Q1H, Alexander 00 Dosing Weight 90.909, kg, PRN Pain Score 7-10, Start date: 04/01/16 11:58:00 CDT, Duration: 30 day, Stop date: 05/01/16 11:57:00 CDT Sodium No 1,000 mL, Memori a Chloride 04-01 Rate: 75 l 0.154 16:58: ml/hr, Eliot MEQ/ML Infuse Injectable over: 13.3 Solution hr, Route: IV, Dosing Weight 90.909 kg, Total Volume: 1,000, Start date: 04/01/16 11:58:00 CDT, Duration: 30 day, Stop date: 05/01/16 11:57:00 CDT Dextrose No 6.25 gm, Memor ia 50% Syringe 04-01 12.5 mL, l 16:58: Route: IVP, Drug Form: INJ, Dosing Weight 90.909, kg, PRN, PRN Abnormal Lab Result, Start date: 04/01/16 11:58:00 CDT, Duration: 30 day, Stop date: 05/01/16 11:57:00 CDT Regular No 60 units) Manjinder nasir Insulin, 04-01 WASTE: F/P l Human 100 16:58: - Black; E He rmann UNT/ML 00 - Injectable Municipal Solution Trash Bin Stable for 28 days at room temperatur e Expires in days from ____Date Saline No Notes: Memoria Flush 0.9% 04-01 Same as: l 16:58: BD Eliot 00 Posiflush Sterile Ondansetron No Notes: Manjinder nasir 04-01 (Same as: l 16:58: Zofran) Eliot 00 MEDICATION WASTE Product Size: 4 mg Product Wasted: ___ mg Bisacodyl No Notes: Memori a 04-01 (Same As: l 16:58: Dulcolax, Eliot 00 Bisco-Lax) Acetaminoph No Notes: Do M emoria en 325 MG / 04-01 not exceed l Hydrocodone 16:58: 4gm/day of Eliot Bitartrate 00 acetaminop 10 MG Oral hen. (Same Tablet as: [place] 325/10) Morphine No 2 mg, Memoria 04-01 Route: l 16:58: IVP, Q1H, Eliot 00 Dosing Weight 90.909, kg, PRN Pain Score 7-10, Start date: 04/01/16 11:58:00 CDT, Duration: 30 day, Stop date: 05/01/16 11:57:00 CDT Sodium No 1,000 mL, Memori a Chloride 04-01 Rate: 75 l 0.154 16:58: ml/hr, Eliot MEQ/ML 00 Infuse Injectable over: 13.3 Solution hr, Route: IV, Dosing Weight 90.909 kg, Total Volume: 1,000, Start date: 04/01/16 11:58:00 CDT, Duration: 30 day, Stop date: 05/01/16 11:57:00 CDT Ancef No 1 gm, Memoria 04-01 Route: l 16:05: IVPB, Drug Eliot 00 form: INJ, ONCE, Dosing Weight 90.909, kg, Start date: 04/01/16 11:05:00 CDT, Stop date: 04/01/16 11:05:00 CDT Ancef 0 No 1 gm, Memoria 04-01 Route: l 16:05: IVPB, Drug Alexander 00 form: INJ, ONCE, Dosing Weight 90.909, kg, Start date: 04/01/16 11:05:00 CDT, Stop date: 04/01/16 11:05:00 CDT Ancef No 1 gm, Memoria 04-01 Route: l 16:05: IVPB, Drug Alexander 00 form: INJ, ONCE, Dosing Weight 90.909, kg, Start date: 04/01/16 11:05:00 CDT, Stop date: 04/01/16 11:05:00 CDT bupivacaine 2015-0 No Notes: Manjinder nasir liposome 9-30 (Same as: l 15:05: Exparel) NOT FOR IV use Postoperat willard analgesia: [...] (total dose = 30 mL [266 mg]) bupivacaine 2016-0 No Notes: Manjinder nasir liposome 9-30 (Same as: l 15:05: Exparel) NOT FOR IV use Postoperat willard analgesia: [...] (total dose = 30 mL [266 mg]) bupivacaine 2016-0 No Notes: Manjinder nasir liposome 9-30 (Same as: l 15:05: Exparel) NOT FOR IV use Postoperat willard analgesia: [...] dose = 30 mL [266 mg]) Ancef 2016-0 No 2 gm, Memoria 9-30 Route: l 13:15: IVPB, Drug Alexander 00 form: INJ, ONCE, Dosing Weight 90.909, kg, Start date: 04/01/16 8:15:00 CDT, Duration: 1 doses or times, Stop date: 04/01/16 8:15:00 CDT, Surgical Prophylaxi s Only; For patients < 120 kg Ancef 2016-0 No 2 gm, Memoria 9-30 Route: l 13:15: IVPB, Drug Alexander 00 form: INJ, ONCE, Dosing Weight 90.909, kg, Start date: 04/01/16 8:15:00 CDT, Duration: 1 doses or times, Stop date: 04/01/16 8:15:00 CDT, Surgical Prophylaxi s Only; For patients < 120 kg Ancef 2016-0 No 2 gm, Memoria 9-30 Route: l 13:15: IVPB, Drug Eliot 00 form: INJ, ONCE, Dosing Weight 90.909, kg, Start date: 04/01/16 8:15:00 CDT, Duration: 1 doses or times, Stop date: 04/01/16 8:15:00 CDT, Surgical Prophylaxi s Only; For patients < 120 kg Lactated 2016-0 No 1,000 mL, Manjinder nasir Ringers 9-30 Rate: 40 l 1,000 mL 11:00: ml/hr, Alexander 00 Infuse over: 25 hr, Route: IV, Dosing Weight 90.909 kg, Total Volume: 1,000, Start date: 04/01/16 6:00:00 CDT, Duration: 30 day, Stop date: 05/01/16 5:59:00 CDT Lactated 2016-0 No 1,000 mL, Manjinder nasir Ring[place] 9-30 Rate: 40 l 1,000 mL 11:00: ml/hr, Alexander 00 Infuse over: 25 hr, Route: IV, Dosing Weight 90.909 kg, Total Volume: 1,000, Start date: 04/01/16 6:00:00 CDT, Duration: 30 day, Stop date: 05/01/16 5:59:00 CDT Lactated No 1,000 mL, Manjinder nasir Ringers 9-30 Rate: 40 l 1,000 mL 11:00: ml/hr, Eliot 00 Infuse over: 25 hr, Route: IV, Dosing Weight 90.909 kg, Total Volume: 1,000, Start date: 04/01/16 6:00:00 CDT, Duration: 30 day, Stop date: 05/01/16 5:59:00 CDT rOPINIRole Yes [id number] 1mg Take 1 [facility] (REQUIP) 1 5-16 tablet by ity of mg tablet 00:00: mouth 3 [place] 00 (three) Medical times Branch daily. gabapentin Yes [id number] 600mg Take 1 [facility] (NEURONTIN) 5-16 tablet by [facility] of 600 mg 00:00: mouth 2 [place] tablet 00 (two) Medical times Branch daily. pantoprazol Yes [id number] 40mg Take 1 [facility] e 5-16 tablet by [facility] of (PROTONIX) 00:00: mouth [place] 40 mg EC 00 daily. Medical tablet Branch rOPINIRole Yes [id number] 1mg Take 1 [facility]ivers (REQUIP) 1 5-16 tablet by ity of mg tablet 00:00: mouth 3 [place] 00 (three) Medical times Branch daily. gabapentin Yes [id number] 600mg Take 1 [facility] (NEURONTIN) 5-16 tablet by [facility]y of 600 mg 00:00: mouth 2 [place] tablet 00 (two) Medical times Branch daily. pantoprazol Yes [id number] 40mg Take 1 [facility] e 5-16 tablet by ity of (PROTONIX) 00:00: mouth [place] 40 mg EC 00 daily. Medical tablet Branch rOPINIRole Yes [id number] 1mg Take 1 [facility]ivers (REQUIP) 1 5-16 tablet by ity of mg tablet 00:00: mouth 3 [place] 00 (three) Medical times Branch daily. gabapentin Yes [id number] 600mg Take 1 [facility] (NEURONTIN) 5-16 tablet by ity of 600 mg 00:00: mouth 2 [place] tablet 00 (two) Medical times Branch daily. pantoprazol Yes [id number] 40mg Take 1 [facility] e 5-16 tablet by ity of (PROTONIX) 00:00: mouth [place] 40 mg EC 00 daily. Medical tablet Branch rOPINIRole Yes [id number] 1mg Take 1 [facility] nivers (REQUIP) 1 5-16 tablet by ity of mg tablet 00:00: mouth 3 [place] 00 (three) Medical times Branch daily. gabapentin Yes [id number] 600mg Take 1 [facility] (NEURONTIN) 5-16 tablet by ity of 600 mg 00:00: mouth 2 [place] tablet 00 (two) Medical times Branch daily. pantoprazol Yes [id number] 40mg Take 1 [facility] e 5-16 tablet by ity of (PROTONIX) 00:00: mouth [place] 40 mg EC 00 daily. Medical tablet Branch rOPINIRole Yes [id number] 1mg Take 1 [facility] (REQUIP) 1 5-16 tablet by ity of mg tablet 00:00: mouth 3 [place] 00 (three) Medical times Branch daily. gabapentin Yes [id number] 600mg Take 1 [facility] (NEURONTIN) 5-16 tablet by ity of 600 mg 00:00: mouth 2 [place] tablet 00 (two) Medical times Branch daily. pantoprazol Yes [id number] 40mg Take 1 [facility] e 5-16 tablet by ity of (PROTONIX) 00:00: mouth [place] 40 mg EC 00 daily. Medical tablet Branch rOPINIRole Yes [id number] 1mg Take 1 [facility]ivers (REQUIP) 1 5-16 tablet by ity of mg tablet 00:00: mouth 3 [place] 00 (three) Medical times Branch daily. gabapentin Yes [id number] 600mg Take 1 [facility] (NEURONTIN) 5-16 tablet by ity of 600 mg 00:00: mouth 2 [place] tablet 00 (two) Medical times Branch daily. pantoprazol Yes [id number] 40mg Take 1 [facility] e 5-16 tablet by ity of (PROTONIX) 00:00: mouth [place] 40 mg EC 00 daily. Medical tablet Branch rOPINIRole Yes [id number] 1mg Take 1 [facility]ivers (REQUIP) 1 5-16 tablet by ity of mg tablet 00:00: mouth 3 [place] 00 (three) Medical times Branch daily. gabapentin Yes [id number] 600mg Take 1 [facility] (NEURONTIN) 5-16 tablet by ity of 600 mg 00:00: mouth 2 [place] tablet 00 (two) Medical times Branch daily. pantoprazol 2016 Yes [id number] 40mg Take 1 [facility] e 5-16 tablet by ity of (PROTONIX) 00:00: mouth [place] 40 mg EC 00 daily. Medical tablet Branch rOPINIRole Yes [id number] 1mg Take 1 [facility]ivers (REQUIP) 1 5-16 tablet by ity of mg tablet 00:00: mouth 3 [place] 00 (three) Medical times Branch daily. gabapentin Yes [id number] 600mg Take 1 [facility] (NEURONTIN) 5-16 tablet by ity of 600 mg 00:00: mouth 2 [place] tablet 00 (two) Medical times Branch daily. pantoprazol Yes [id number] 40mg Take 1 [facility] e 5-16 tablet by ity of (PROTONIX) 00:00: mouth [place] 40 mg EC 00 daily. Medical tablet Branch rOPINIRole Yes [id number] 1mg Take 1 [facility]ivers (REQUIP) 1 5-16 tablet by ity of mg tablet 00:00: mouth 3 [place] 00 (three) Medical times Branch daily. gabapentin Yes [id number] 600mg Take 1 [facility] (NEURONTIN) 5-16 tablet by ity of 600 mg 00:00: mouth 2 [place] tablet 00 (two) Medical times Branch daily. pantoprazol Yes [id number] 40mg Take 1 [facility] e 5-16 tablet by ity of (PROTONIX) 00:00: mouth [place] 40 mg EC 00 daily. Medical tablet Branch rOPINIRole Yes [id number] 1mg Take 1 [facility]ivers (REQUIP) 1 5-16 tablet by ity of mg tablet 00:00: mouth 3 [place] 00 (three) Medical times Branch daily. gabapentin Yes [id number] 600mg Take 1 [facility] (NEURONTIN) 5-16 tablet by ity of 600 mg 00:00: mouth 2 [place] tablet 00 (two) Medical times Branch daily. pantoprazol Yes [id number] 40mg Take 1 [facility] e 5-16 tablet by ity of (PROTONIX) 00:00: mouth [place] 40 mg EC 00 daily. Medical tablet Branch rOPINIRole Yes Restless 1mg Take 1 U nivers (REQUIP) 1 5-16 legs tablet by ity of mg tablet 00:00: syndrome mouth 3 [place] 00 (three) Medical times Branch daily. gabapentin Yes Chronic 600mg Take 1 U nivers (NEURONTIN) 5-16 back pain tablet by ity of 600 mg 00:00: mouth 2 [place] tablet 00 (two) Medical times Branch daily. pantoprazol Yes Gastroesoph 40mg Take 1 [facility] e 5-16 ageal tablet by ity of (PROTONIX) 00:00: reflux mouth [place] 40 mg EC 00 disease daily. Medica l tablet without Branch esophagitis foLIC acid Yes TAKE 1 [facility] rs (FOLATE) 1 3-28 TABLET BY ity of mg tablet 00:00: MOUTH [place] 00 TWICE A Medical DAY Branch foLIC acid Yes TAKE 1 [facility] rs (FOLATE) 1 3-28 TABLET BY ity of mg tablet 00:00: MOUTH [place] 00 TWICE A Medical DAY Branch foLIC acid Yes TAKE 1 [facility] rs (FOLATE) 1 3-28 TABLET BY ity of mg tablet 00:00: MOUTH [place] 00 TWICE A Medical DAY Branch foLIC acid Yes TAKE 1 [facility] rs (FOLATE) 1 3-28 TABLET BY ity of mg tablet 00:00: MOUTH [place] 00 TWICE A Medical DAY Branch foLIC acid Yes TAKE 1 [facility] rs (FOLATE) 1 3-28 TABLET BY ity of mg tablet 00:00: MOUTH [place] 00 TWICE A Medical DAY Branch foLIC acid Yes TAKE 1 [facility] rs (FOLATE) 1 3-28 TABLET BY ity of mg tablet 00:00: MOUTH [place] 00 TWICE A Medical DAY Branch foLIC acid Yes TAKE 1 [facility] rs (FOLATE) 1 3-28 TABLET BY ity of mg tablet 00:00: MOUTH [place] 00 TWICE A Medical DAY Branch foLIC acid Yes TAKE 1 [facility] rs (FOLATE) 1 3-28 TABLET BY ity of mg tablet 00:00: MOUTH [place] 00 TWICE A Medical DAY Branch foLIC acid Yes TAKE 1 [facility] rs (FOLATE) 1 3-28 TABLET BY ity of mg tablet 00:00: MOUTH [place] 00 TWICE A Medical DAY Branch foLIC acid Yes TAKE 1 [facility] rs (FOLATE) 1 3-28 TABLET BY ity of mg tablet 00:00: MOUTH [place] 00 TWICE A Medical DAY Branch foLIC acid 2016-0 Yes TAKE 1 [facility] rs (FOLATE) 1 3-28 TABLET BY ity of mg tablet 00:00: MOUTH [place] 00 TWICE A Medical DAY Branch Singulair Singulair No 1{table QD Singulair 10 MG 10 MG t} 10 MG Eliquis 2.5 Eliquis 2.5 No Eliquis mg 2.5 mg mg 2.5 mg 2.5 mg 2.5 mg Potassium Potassium No 1{table QD Potassium Chloride ER Chloride ER t_with_ Chloride 20 MEQ 20 MEQ food} ER 20 MEQ DULoxetine DULoxetine No BID DULoxetine HCl 60 MG HCl 60 MG HCl 60 MG Metoprolol Metoprolol No Metoprolol Succinate Succinate Succinate ER 25 MG ER 25 MG ER 25 MG Bumex 2 MG Bumex 2 MG No 1{table BID Bumex 2 MG t} traZODone traZODone No 1{table QD traZODone HCl 150 MG HCl 150 MG t_at_be HCl 150 MG dtime} Spironolact Spironolact No 1{table QD Spironolac one 25 MG one 25 MG t} tone 25 MG Albuterol Albuterol No 2{puffs Albuterol Sulfate HFA Sulfate HFA _as_nee Sulfate 108 (90 108 (90 ded} HFA 108 Base) Base) (90 Base) MCG/ACT MCG/ACT MCG/ACT Fluconazole Fluconazole No 1{table Fluconazol 150 MG 150 MG ts} e 150 MG Nystatin Nystatin No Nystatin [id number] UNIT/GM UNIT/GM UNIT/GM Requip 1 MG Requip 1 MG No 1{table Requip 1 t} MG Famotidine Famotidine No 1{table QD Famotidine 20 MG 20 MG t_at_be 20 MG dtime} Triamcinolo Triamcinolo No Triamcinol ne ne one Acetonide Acetonide Acetonide 0.1 % 0.1 % 0.1 % Breo Breo No 1{puff} QD Breo Ellipta Ellipta Ellipta 200-25 200-25 200-25 MCG/INH MCG/INH MCG/INH Omeprazole Omeprazole No Omeprazole 40 MG 40 MG 40 MG Lidocaine 5 Lidocaine 5 No 1{appli TID Lidocaine % % cation_ 5 % as_need ed} Breo Breo No Breo Ellipta Ellipta Ellipta 200-25 200-25 200-25 MCG/INH MCG/INH MCG/INH Methocarbam Methocarbam No 1{table Methocarba ol 750 MG ol 750 MG t} mol 750 MG Ketoconazol Ketoconazol No 1{appli BID Ketoconazo e 2 % e 2 % cation} le 2 % HYDROmorpho HYDROmorpho No 1{table HYDROmorph ne HCl 4 MG ne HCl 4 MG t_as_ne one HCl 4 eded} MG Neurontin Neurontin No 1{table TID Neurontin 600 MG 600 MG t} 600 MG traZODone traZODone No traZODone HCl 150 MG HCl 150 MG HCl 150 MG rOPINIRole rOPINIRole No rOPINIRole HCl 1 MG HCl 1 MG HCl 1 MG DULoxetine DULoxetine No 1{capsu BID DULoxetine HCl 60 MG HCl 60 MG le} HCl 60 MG CoQ-10 CoQ-10 No CoQ-10 rOPINIRole rOPINIRole No rOPINIRole HCl 1 MG HCl 1 MG HCl 1 MG Allopurinol Allopurinol No QD Allopurino 300 MG 300 MG l 300 MG Ferrous Ferrous No 1{table QD Ferrous Sulfate 324 Sulfate 324 t} Sulfate MG MG 324 MG metOLazone metOLazone No QD metOLazone 2.5 MG 2.5 MG 2.5 MG Lipitor 10 Lipitor 10 No 1{table QD Lipitor 10 MG MG t} MG Aspirin Aspirin No Aspirin Folic Acid Folic Acid No Folic Acid 1 MG 1 MG 1 MG [place] 3 [place] 3 No [place] 3 Singulair Singulair No 1{table QD Singulair 10 MG 10 MG t} 10 MG Eliquis 2.5 Eliquis 2.5 No Eliquis mg 2.5 mg mg 2.5 mg 2.5 mg 2.5 mg Potassium Potassium No 1{table QD Potassium Chloride ER Chloride ER t_with_ Chloride 20 MEQ 20 MEQ food} ER 20 MEQ DULoxetine DULoxetine No BID DULoxetine HCl 60 MG HCl 60 MG HCl 60 MG Metoprolol Metoprolol No Metoprolol Succinate Succinate Succinate ER 25 MG ER 25 MG ER 25 MG Bumex 2 MG Bumex 2 MG No 1{table BID Bumex 2 MG t} traZODone traZODone No 1{table QD traZODone HCl 150 MG HCl 150 MG t_at_be HCl 150 MG dtime} Spironolact Spironolact No 1{table QD Spironolac one 25 MG one 25 MG t} tone 25 MG Albuterol Albuterol No 2{puffs Albuterol Sulfate HFA Sulfate HFA _as_nee Sulfate 108 (90 108 (90 ded} HFA 108 Base) Base) (90 Base) MCG/ACT MCG/ACT MCG/ACT Fluconazole Fluconazole No 1{table Fluconazol 150 MG 150 MG ts} e 150 MG Nystatin Nystatin No Nystatin [id number] UNIT/GM UNIT/GM UNIT/GM Requip 1 MG Requip 1 MG No 1{table Requip 1 t} MG Famotidine Famotidine No 1{table QD Famotidine 20 MG 20 MG t_at_be 20 MG dtime} Triamcinolo Triamcinolo No Triamcinol ne ne one Acetonide Acetonide Acetonide 0.1 % 0.1 % 0.1 % Breo Breo No 1{puff} QD Breo Ellipta Ellipta Ellipta 200-25 200-25 200-25 MCG/INH MCG/INH MCG/INH Omeprazole Omeprazole No Omeprazole 40 MG 40 MG 40 MG Lidocaine 5 Lidocaine 5 No 1{appli TID Lidocaine % % cation_ 5 % as_need ed} Breo Breo No Breo Ellipta Ellipta Ellipta 200-25 200-25 200-25 MCG/INH MCG/INH MCG/INH Methocarbam Methocarbam No 1{table Methocarba ol 750 MG ol 750 MG t} mol 750 MG Ketoconazol Ketoconazol No 1{appli BID Ketoconazo e 2 % e 2 % cation} le 2 % HYDROmorpho HYDROmorpho No 1{table HYDROmorph ne HCl 4 MG ne HCl 4 MG t_as_ne one HCl 4 eded} MG Neurontin Neurontin No 1{table TID Neurontin 600 MG 600 MG t} 600 MG traZODone traZODone No traZODone HCl 150 MG HCl 150 MG HCl 150 MG rOPINIRole rOPINIRole No rOPINIRole HCl 1 MG HCl 1 MG HCl 1 MG DULoxetine DULoxetine No 1{capsu BID DULoxetine HCl 60 MG HCl 60 MG le} HCl 60 MG CoQ-10 CoQ-10 No CoQ-10 rOPINIRole rOPINIRole No rOPINIRole HCl 1 MG HCl 1 MG HCl 1 MG Allopurinol Allopurinol No QD Allopurino 300 MG 300 MG l 300 MG Ferrous Ferrous No 1{table QD Ferrous Sulfate 324 Sulfate 324 t} Sulfate MG MG 324 MG metOLazone metOLazone No QD metOLazone 2.5 MG 2.5 MG 2.5 MG Lipitor 10 Lipitor 10 No 1{table QD Lipitor 10 MG MG t} MG Aspirin Aspirin No Aspirin Folic Acid Folic Acid No Folic Acid 1 MG 1 MG 1 MG [place] 3 [place] 3 No [place] 3 Singulair Singulair No 1{table QD Singulair 10 MG 10 MG t} 10 MG Eliquis 2.5 Eliquis 2.5 No Eliquis mg 2.5 mg mg 2.5 mg 2.5 mg 2.5 mg Potassium Potassium No 1{table QD Potassium Chloride ER Chloride ER t_with_ Chloride 20 MEQ 20 MEQ food} ER 20 MEQ DULoxetine DULoxetine No BID DULoxetine HCl 60 MG HCl 60 MG HCl 60 MG Metoprolol Metoprolol No Metoprolol Succinate Succinate Succinate ER 25 MG ER 25 MG ER 25 MG Bumex 2 MG Bumex 2 MG No 1{table BID Bumex 2 MG t} traZODone traZODone No 1{table QD traZODone HCl 150 MG HCl 150 MG t_at_be HCl 150 MG dtime} Spironolact Spironolact No 1{table QD Spironolac one 25 MG one 25 MG t} tone 25 MG Albuterol Albuterol No 2{puffs Albuterol Sulfate HFA Sulfate HFA _as_nee Sulfate 108 (90 108 (90 ded} HFA 108 Base) Base) (90 Base) MCG/ACT MCG/ACT MCG/ACT Fluconazole Fluconazole No 1{table Fluconazol 150 MG 150 MG ts} e 150 MG Nystatin Nystatin No Nystatin [id number] UNIT/GM UNIT/GM UNIT/GM Requip 1 MG Requip 1 MG No 1{table Requip 1 t} MG Famotidine Famotidine No 1{table QD Famotidine 20 MG 20 MG t_at_be 20 MG dtime} Triamcinolo Triamcinolo No Triamcinol ne ne one Acetonide Acetonide Acetonide 0.1 % 0.1 % 0.1 % Breo Breo No 1{puff} QD Breo Ellipta Ellipta Ellipta 200-25 200-25 200-25 MCG/INH MCG/INH MCG/INH Omeprazole Omeprazole No Omeprazole 40 MG 40 MG 40 MG Lidocaine 5 Lidocaine 5 No 1{appli TID Lidocaine % % cation_ 5 % as_need ed} Breo Breo No Breo Ellipta Ellipta Ellipta 200-25 200-25 200-25 MCG/INH MCG/INH MCG/INH Methocarbam Methocarbam No 1{table Methocarba ol 750 MG ol 750 MG t} mol 750 MG Ketoconazol Ketoconazol No 1{appli BID Ketoconazo e 2 % e 2 % cation} le 2 % HYDROmorpho HYDROmorpho No 1{table HYDROmorph ne HCl 4 MG ne HCl 4 MG t_as_ne one HCl 4 eded} MG Neurontin Neurontin No 1{table TID Neurontin 600 MG 600 MG t} 600 MG traZODone traZODone No traZODone HCl 150 MG HCl 150 MG HCl 150 MG rOPINIRole rOPINIRole No rOPINIRole HCl 1 MG HCl 1 MG HCl 1 MG DULoxetine DULoxetine No 1{capsu BID DULoxetine HCl 60 MG HCl 60 MG le} HCl 60 MG Singulair Singulair No 1{table QD Singulair 10 MG 10 MG t} 10 MG Allopurinol Allopurinol No QD Allopurino 300 MG 300 MG l 300 MG [place] 3 [place] 3 No [place] 3 Folic Acid Folic Acid No Folic Acid 1 MG 1 MG 1 MG rOPINIRole rOPINIRole No rOPINIRole HCl 1 MG HCl 1 MG HCl 1 MG Lipitor 10 Lipitor 10 No 1{table QD Lipitor 10 MG MG t} MG Omeprazole Omeprazole No Omeprazole 40 MG 40 MG 40 MG Aspirin Aspirin No Aspirin Folic Acid Folic Acid No Folic Acid 1 MG 1 MG 1 MG Metoprolol Metoprolol No Metoprolol Succinate Succinate Succinate ER 25 MG ER 25 MG ER 25 MG Gabapentin Gabapentin No Gabapentin 600 MG 600 MG 600 MG Eliquis 2.5 Eliquis 2.5 No Eliquis mg 2.5 mg mg 2.5 mg 2.5 mg 2.5 mg Potassium Potassium No 1{table QD Potassium Chloride ER Chloride ER t_with_ Chloride 20 MEQ 20 MEQ food} ER 20 MEQ Famotidine Famotidine No 1{table QD Famotidine 20 MG 20 MG t_at_be 20 MG dtime} Ferrous Ferrous No 1{table QD Ferrous Sulfate 324 Sulfate 324 t} Sulfate MG MG 324 MG Bumex 2 MG Bumex 2 MG No 1{table BID Bumex 2 MG t} traZODone traZODone No 1{table QD traZODone HCl 150 MG HCl 150 MG t_at_be HCl 150 MG dtime} Spironolact Spironolact No 1{table QD Spironolac one 25 MG one 25 MG t} tone 25 MG Requip 1 MG Requip 1 MG No 1{table Requip 1 t} MG Breo Breo No 1{puff} QD Breo Ellipta Ellipta Ellipta 200-25 200-25 200-25 MCG/INH MCG/INH MCG/INH Triamcinolo Triamcinolo No Triamcinol ne ne one Acetonide Acetonide Acetonide 0.1 % 0.1 % 0.1 % Ferrous Ferrous No 1{table QD Ferrous Sulfate 324 Sulfate 324 t} Sulfate MG MG 324 MG Lidocaine 5 Lidocaine 5 No 1{appli TID Lidocaine % % cation_ 5 % as_need ed} Fluconazole Fluconazole No 1{table Fluconazol 150 MG 150 MG ts} e 150 MG Potassium Potassium No 1{table QD Potassium Chloride ER Chloride ER t_with_ Chloride 20 MEQ 20 MEQ food} ER 20 MEQ DULoxetine DULoxetine No DULoxetine HCl 60 MG HCl 60 MG HCl 60 MG metOLazone metOLazone No QD metOLazone 2.5 MG 2.5 MG 2.5 MG Breo Breo No Breo Ellipta Ellipta Ellipta 200-25 200-25 200-25 MCG/INH MCG/INH MCG/INH Ketoconazol Ketoconazol No 1{appli BID Ketoconazo e 2 % e 2 % cation} le 2 % CoQ-10 CoQ-10 No CoQ-10 Albuterol Albuterol No 2{puffs Albuterol Sulfate HFA Sulfate HFA _as_nee Sulfate 108 (90 108 (90 ded} HFA 108 Base) Base) (90 Base) MCG/ACT MCG/ACT MCG/ACT Methocarbam Methocarbam No 1{table Methocarba ol 750 MG ol 750 MG t} mol 750 MG HYDROmorpho HYDROmorpho No 1{table HYDROmorph ne HCl 4 MG ne HCl 4 MG t_as_ne one HCl 4 eded} MG Nystatin Nystatin No Nystatin [id number] UNIT/GM UNIT/GM UNIT/GM traZODone traZODone No traZODone HCl 150 MG HCl 150 MG HCl 150 MG Requip 1 MG Requip 1 MG No 1{table Requip 1 t} MG rOPINIRole rOPINIRole No rOPINIRole HCl 1 MG HCl 1 MG HCl 1 MG Bumex 2 MG Bumex 2 MG No 1{table BID Bumex 2 MG t} CoQ-10 CoQ-10 No CoQ-10 Singulair Singulair No 1{table QD Singulair 10 MG 10 MG t} 10 MG Breo Breo No Breo Ellipta Ellipta Ellipta 200-25 200-25 200-25 MCG/INH MCG/INH MCG/INH Nystatin Nystatin No Nystatin [id number] UNIT/GM UNIT/GM UNIT/GM Aspirin Aspirin No Aspirin Albuterol Albuterol No 2{puffs Albuterol Sulfate HFA Sulfate HFA _as_nee Sulfate 108 (90 108 (90 ded} HFA 108 Base) Base) (90 Base) MCG/ACT MCG/ACT MCG/ACT Triamcinolo Triamcinolo No Triamcinol ne ne one Acetonide Acetonide Acetonide 0.1 % 0.1 % 0.1 % Duloxetine Duloxetine No 1{capsu BID Duloxetine HCl 60 MG HCl 60 MG le} HCl 60 MG Gabapentin Gabapentin No Gabapentin 600 MG 600 MG 600 MG traZODone traZODone No 1{table QD traZODone HCl 150 MG HCl 150 MG t_at_be HCl 150 MG dtime} CoQ-10 CoQ-10 No CoQ-10 rOPINIRole rOPINIRole No rOPINIRole HCl 1 MG HCl 1 MG HCl 1 MG Eliquis 2.5 Eliquis 2.5 No Eliquis mg 2.5 mg mg 2.5 mg 2.5 mg 2.5 mg rOPINIRole rOPINIRole No rOPINIRole HCl 1 MG HCl 1 MG HCl 1 MG Breo Breo No 1{puff} QD Breo Ellipta Ellipta Ellipta 200-25 200-25 200-25 MCG/INH MCG/INH MCG/INH Neurontin Neurontin No 1{table TID Neurontin 600 MG 600 MG t} 600 MG DULoxetine DULoxetine No 1{capsu BID DULoxetine HCl 60 MG HCl 60 MG le} HCl 60 MG Ropinirole Ropinirole No Ropinirole HCl 1 MG HCl 1 MG HCl 1 MG Ferrous Ferrous No 1{table QD Ferrous Sulfate 324 Sulfate 324 t} Sulfate MG MG 324 MG Requip 1 MG Requip 1 MG No 1{table Requip 1 t} MG Fluconazole Fluconazole No 1{table Fluconazol 150 MG 150 MG ts} e 150 MG DULoxetine DULoxetine No DULoxetine HCl 60 MG HCl 60 MG HCl 60 MG Metoprolol Metoprolol No Metoprolol Succinate Succinate Succinate ER 25 MG ER 25 MG ER 25 MG Bumex 2 MG Bumex 2 MG No 1{table BID Bumex 2 MG t} Famotidine Famotidine No 1{table QD Famotidine 20 MG 20 MG t_at_be 20 MG dtime} Folic Acid Folic Acid No Folic Acid 1 MG 1 MG 1 MG Spironolact Spironolact No 1{table QD Spironolac one 25 MG one 25 MG t} tone 25 MG traZODone traZODone No traZODone HCl 150 MG HCl 150 MG HCl 150 MG Singulair Singulair No 1{table QD Singulair 10 MG 10 MG t} 10 MG HYDROmorpho HYDROmorpho No 1{table HYDROmorph ne HCl 4 MG ne HCl 4 MG t_as_ne one HCl 4 eded} MG Methocarbam Methocarbam No 1{table Methocarba ol 750 MG ol 750 MG t} mol 750 MG Ketoconazol Ketoconazol No 1{appli BID Ketoconazo e 2 % e 2 % cation} le 2 % Potassium Potassium No 1{table QD Potassium Chloride ER Chloride ER t_with_ Chloride 20 MEQ 20 MEQ food} ER 20 MEQ Omeprazole Omeprazole No Omeprazole 40 MG 40 MG 40 MG Lipitor 10 Lipitor 10 No 1{table QD Lipitor 10 MG MG t} MG [place] 3 [place] 3 No [place] 3 metOLazone metOLazone No QD metOLazone 2.5 MG 2.5 MG 2.5 MG Lidocaine 5 Lidocaine 5 No 1{appli TID Lidocaine % % cation_ 5 % as_need ed} Famotidine Famotidine No 1{table QD Famotidine 20 MG 20 MG t_at_be 20 MG dtime} Allopurinol Allopurinol No QD Allopurino 300 MG 300 MG l 300 MG [place] 3 [place] 3 No [place] 3 Singulair Singulair No 1{table QD Singulair 10 MG 10 MG t} 10 MG Breo Breo No Breo Ellipta Ellipta Ellipta 200-25 200-25 200-25 MCG/INH MCG/INH MCG/INH Nystatin Nystatin No Nystatin [id number] UNIT/GM UNIT/GM UNIT/GM Aspirin Aspirin No Aspirin Albuterol Albuterol No 2{puffs Albuterol Sulfate HFA Sulfate HFA _as_nee Sulfate 108 (90 108 (90 ded} HFA 108 Base) Base) (90 Base) MCG/ACT MCG/ACT MCG/ACT Triamcinolo Triamcinolo No Triamcinol ne ne one Acetonide Acetonide Acetonide 0.1 % 0.1 % 0.1 % Gabapentin Gabapentin No Gabapentin 600 MG 600 MG 600 MG traZODone traZODone No 1{table QD traZODone HCl 150 MG HCl 150 MG t_at_be HCl 150 MG dtime} Aspirin Aspirin No Aspirin Ferrous Ferrous No 1{table QD Ferrous Sulfate 324 Sulfate 324 t} Sulfate MG MG 324 MG rOPINIRole rOPINIRole No rOPINIRole HCl 1 MG HCl 1 MG HCl 1 MG Eliquis 2.5 Eliquis 2.5 No Eliquis mg 2.5 mg mg 2.5 mg 2.5 mg 2.5 mg CoQ-10 CoQ-10 No CoQ-10 Requip 1 MG Requip 1 MG No 1{table Requip 1 t} MG Fluconazole Fluconazole No 1{table Fluconazol 150 MG 150 MG ts} e 150 MG Neurontin Neurontin No 1{table TID Neurontin 600 MG 600 MG t} 600 MG Breo Breo No 1{puff} QD Breo Ellipta Ellipta Ellipta 200-25 200-25 200-25 MCG/INH MCG/INH MCG/INH DULoxetine DULoxetine No DULoxetine HCl 60 MG HCl 60 MG HCl 60 MG Eliquis 2.5 Eliquis 2.5 No Eliquis mg 2.5 mg mg 2.5 mg 2.5 mg 2.5 mg Metoprolol Metoprolol No Metoprolol Succinate Succinate Succinate ER 25 MG ER 25 MG ER 25 MG Lipitor 10 Lipitor 10 No 1{table QD Lipitor 10 MG MG t} MG rOPINIRole rOPINIRole No rOPINIRole HCl 1 MG HCl 1 MG HCl 1 MG Famotidine Famotidine No 1{table QD Famotidine 20 MG 20 MG t_at_be 20 MG dtime} Folic Acid Folic Acid No Folic Acid 1 MG 1 MG 1 MG Potassium Potassium No 1{table QD Potassium Chloride ER Chloride ER t_with_ Chloride 20 MEQ 20 MEQ food} ER 20 MEQ traZODone traZODone No traZODone HCl 150 MG HCl 150 MG HCl 150 MG HYDROmorpho HYDROmorpho No 1{table HYDROmorph ne HCl 4 MG ne HCl 4 MG t_as_ne one HCl 4 eded} MG Methocarbam Methocarbam No 1{table Methocarba ol 750 MG ol 750 MG t} mol 750 MG Ketoconazol Ketoconazol No 1{appli BID Ketoconazo e 2 % e 2 % cation} le 2 % Trazodone Trazodone No 1{table QD Trazodone HCl 150 MG HCl 150 MG t_at_be HCl 150 MG dtime} Bumex 2 MG Bumex 2 MG No 1{table BID Bumex 2 MG t} Omeprazole Omeprazole No Omeprazole 40 MG 40 MG 40 MG Spironolact Spironolact No 1{table QD Spironolac one 25 MG one 25 MG t} tone 25 MG [place] 3 [place] 3 No [place] 3 metOLazone metOLazone No QD metOLazone 2.5 MG 2.5 MG 2.5 MG Allopurinol Allopurinol No Allopurino 300 MG 300 MG l 300 MG Lidocaine 5 Lidocaine 5 No 1{appli TID Lidocaine % % cation_ 5 % as_need ed} Hydromorpho Hydromorpho No 1{table Hydromorph ne HCl 4 MG ne HCl 4 MG t_as_ne one HCl 4 eded} MG [place] 3 [place] 3 No [place] 3 Bumex 2 MG Bumex 2 MG No 1{table BID Bumex 2 MG t} Allopurinol Allopurinol No Allopurino 300 MG 300 MG l 300 MG CoQ-10 CoQ-10 No CoQ-10 Singulair Singulair No 1{table QD Singulair 10 MG 10 MG t} 10 MG rOPINIRole rOPINIRole No rOPINIRole HCl 1 MG HCl 1 MG HCl 1 MG Ferrous Ferrous No 1{table QD Ferrous Sulfate 324 Sulfate 324 t} Sulfate MG MG 324 MG Breo Breo No Breo Ellipta Ellipta Ellipta 200-25 200-25 200-25 MCG/INH MCG/INH MCG/INH Aspirin Aspirin No Aspirin Potassium Potassium No 1{table QD Potassium Chloride ER Chloride ER t_with_ Chloride 20 MEQ 20 MEQ food} ER 20 MEQ Lidocaine 5 Lidocaine 5 No 1{appli TID Lidocaine % % cation_ 5 % as_need ed} DULoxetine DULoxetine No DULoxetine HCl 60 MG HCl 60 MG HCl 60 MG Omeprazole Omeprazole No QD Omeprazole 40 MG 40 MG 40 MG Metoprolol Metoprolol No Metoprolol Succinate Succinate Succinate ER 25 MG ER 25 MG ER 25 MG Famotidine Famotidine No 1{table QD Famotidine 20 MG 20 MG t_at_be 20 MG dtime} Spironolact Spironolact No 1{table QD Spironolac one 25 MG one 25 MG t} tone 25 MG rOPINIRole rOPINIRole No rOPINIRole HCl 1 MG HCl 1 MG HCl 1 MG traZODone traZODone No traZODone HCl 150 MG HCl 150 MG HCl 150 MG Methocarbam Methocarbam No 1{table Methocarba ol 750 MG ol 750 MG t} mol 750 MG Fluconazole Fluconazole No 1{table Fluconazol 150 MG 150 MG ts} e 150 MG traZODone traZODone No 1{table QD traZODone HCl 150 MG HCl 150 MG t_at_be HCl 150 MG dtime} Albuterol Albuterol No 2{puffs Albuterol Sulfate HFA Sulfate HFA _as_nee Sulfate 108 (90 108 (90 ded} HFA 108 Base) Base) (90 Base) MCG/ACT MCG/ACT MCG/ACT Spironolact Spironolact No 1{table QD Spironolac one 25 MG one 25 MG t} tone 25 MG Ketoconazol Ketoconazol No 1{appli BID Ketoconazo e 2 % e 2 % cation} le 2 % Nystatin Nystatin No Nystatin [id number] UNIT/GM UNIT/GM UNIT/GM Omeprazole Omeprazole No Omeprazole 40 MG 40 MG 40 MG metOLazone metOLazone No QD metOLazone 2.5 MG 2.5 MG 2.5 MG Lipitor 10 Lipitor 10 No 1{table QD Lipitor 10 MG MG t} MG Breo Breo No 1{puff} QD Breo Ellipta Ellipta Ellipta 200-25 200-25 200-25 MCG/INH MCG/INH MCG/INH Triamcinolo Triamcinolo No Triamcinol ne ne one Acetonide Acetonide Acetonide 0.1 % 0.1 % 0.1 % Requip 1 MG Requip 1 MG No 1{table Requip 1 t} MG Eliquis 2.5 Eliquis 2.5 No Eliquis mg 2.5 mg mg 2.5 mg 2.5 mg 2.5 mg HYDROmorpho HYDROmorpho No 1{table HYDROmorph ne HCl 4 MG ne HCl 4 MG t_as_ne one HCl 4 eded} MG Trazodone Trazodone No Trazodone HCl 150 MG HCl 150 MG HCl 150 MG Folic Acid Folic Acid No Folic Acid 1 MG 1 MG 1 MG Gabapentin Gabapentin No Gabapentin 600 MG 600 MG 600 MG Neurontin Neurontin No 1{table TID Neurontin 600 MG 600 MG t} 600 MG Metolazone Metolazone No QD Metolazone 2.5 MG 2.5 MG 2.5 MG Lipitor 10 Lipitor 10 No 1{table QD Lipitor 10 MG MG t} MG Ropinirole Ropinirole No Ropinirole HCl 1 MG HCl 1 MG HCl 1 MG Neurontin Neurontin No 1{table TID Neurontin 600 MG 600 MG t} 600 MG Methocarbam Methocarbam No 1{table Methocarba ol 750 MG ol 750 MG t} mol 750 MG Breo Breo No 1{puff} QD Breo Ellipta Ellipta Ellipta 200-25 200-25 200-25 MCG/INH MCG/INH MCG/INH Albuterol Albuterol No 2{puffs Albuterol Sulfate HFA Sulfate HFA _as_nee Sulfate 108 (90 108 (90 ded} HFA 108 Base) Base) (90 Base) MCG/ACT MCG/ACT MCG/ACT Breo Breo No Breo Ellipta Ellipta Ellipta 200-25 200-25 200-25 MCG/INH MCG/INH MCG/INH Allopurinol Allopurinol No 1{table QD Allopurino 300 MG 300 MG t} l 300 MG Omeprazole Omeprazole No QD Omeprazole 40 MG 40 MG 40 MG Ferrous Ferrous No 1{table QD Ferrous Sulfate 324 Sulfate 324 t} Sulfate MG MG 324 MG Breo Breo No 1{puff} QD Breo Ellipta Ellipta Ellipta 200-25 200-25 200-25 MCG/INH MCG/INH MCG/INH Duloxetine Duloxetine No 1{capsu BID Duloxetine HCl 60 MG HCl 60 MG le} HCl 60 MG Methocarbam Methocarbam No 1{table Methocarba ol 750 MG ol 750 MG t} mol 750 MG Ropinirole Ropinirole No Ropinirole HCl 1 MG HCl 1 MG HCl 1 MG Albuterol Albuterol No 2{puffs Albuterol Sulfate HFA Sulfate HFA _as_nee Sulfate 108 (90 108 (90 ded} HFA 108 Base) Base) (90 Base) MCG/ACT MCG/ACT MCG/ACT Neurontin Neurontin No 1{table TID Neurontin 600 MG 600 MG t} 600 MG Folic Acid Folic Acid No Folic Acid 1 MG 1 MG 1 MG Hydromorpho Hydromorpho No 1{table Hydromorph ne HCl 4 MG ne HCl 4 MG t_as_ne one HCl 4 eded} MG Breo Breo No Breo Ellipta Ellipta Ellipta 200-25 200-25 200-25 MCG/INH MCG/INH MCG/INH Metolazone Metolazone No QD Metolazone 2.5 MG 2.5 MG 2.5 MG [place] 3 [place] 3 No [place] 3 Ropinirole Ropinirole No Ropinirole HCl 1 MG HCl 1 MG HCl 1 MG Aspirin Aspirin No Aspirin Requip 1 MG Requip 1 MG No 1{table Requip 1 t} MG CoQ-10 CoQ-10 No CoQ-10 Famotidine Famotidine No 1{table QD Famotidine 20 MG 20 MG t_at_be 20 MG dtime} Allopurinol Allopurinol No 1{table QD Allopurino 300 MG 300 MG t} l 300 MG Trazodone Trazodone No Trazodone HCl 150 MG HCl 150 MG HCl 150 MG Potassium Potassium No 1{table QD Potassium Chloride ER Chloride ER t_with_ Chloride 20 MEQ 20 MEQ food} ER 20 MEQ Singulair Singulair No 1{table QD Singulair 10 MG 10 MG t} 10 MG Bumex 2 MG Bumex 2 MG No 1{table BID Bumex 2 MG t} Spironolact Spironolact No 1{table QD Spironolac one 25 MG one 25 MG t} tone 25 MG Eliquis 2.5 Eliquis 2.5 No Eliquis mg 2.5 mg mg 2.5 mg 2.5 mg 2.5 mg Lipitor 10 Lipitor 10 No 1{table QD Lipitor 10 MG MG t} MG Trazodone Trazodone No 1{table QD Trazodone HCl 150 MG HCl 150 MG t_at_be HCl 150 MG dtime} Duloxetine Duloxetine No 1{capsu BID Duloxetine HCl 60 MG HCl 60 MG le} HCl 60 MG Ferrous Ferrous No 1{table QD Ferrous Sulfate 324 Sulfate 324 t} Sulfate MG MG 324 MG Albuterol Albuterol No 2{puffs Albuterol Sulfate HFA Sulfate HFA _as_nee Sulfate 108 (90 108 (90 ded} HFA 108 Base) Base) (90 Base) MCG/ACT MCG/ACT MCG/ACT Singulair Singulair No 1{table QD Singulair 10 MG 10 MG t} 10 MG Breo Breo No 1{puff} QD Breo Ellipta Ellipta Ellipta 200-25 200-25 200-25 MCG/INH MCG/INH MCG/INH Ropinirole Ropinirole No Ropinirole HCl 1 MG HCl 1 MG HCl 1 MG Hydromorpho Hydromorpho No 1{table Hydromorph ne HCl 4 MG ne HCl 4 MG t_as_ne one HCl 4 eded} MG Methocarbam Methocarbam No 1{table Methocarba ol 750 MG ol 750 MG t} mol 750 MG Breo Breo No Breo Ellipta Ellipta Ellipta 200-25 200-25 200-25 MCG/INH MCG/INH MCG/INH Duloxetine Duloxetine No 1{capsu BID Duloxetine HCl 60 MG HCl 60 MG le} HCl 60 MG Neurontin Neurontin No 1{table TID Neurontin 600 MG 600 MG t} 600 MG Allopurinol Allopurinol No Allopurino 300 MG 300 MG l 300 MG Metolazone Metolazone No QD Metolazone 2.5 MG 2.5 MG 2.5 MG [place] 3 [place] 3 No [place] 3 Ropinirole Ropinirole No Ropinirole HCl 1 MG HCl 1 MG HCl 1 MG CoQ-10 CoQ-10 No CoQ-10 Folic Acid Folic Acid No Folic Acid 1 MG 1 MG 1 MG Omeprazole Omeprazole No Omeprazole 40 MG 40 MG 40 MG Trazodone Trazodone No Trazodone HCl 150 MG HCl 150 MG HCl 150 MG Famotidine Famotidine No 1{table QD Famotidine 20 MG 20 MG t_at_be 20 MG dtime} Potassium Potassium No 1{table QD Potassium Chloride ER Chloride ER t_with_ Chloride 20 MEQ 20 MEQ food} ER 20 MEQ Aspirin Aspirin No Aspirin Bumex 2 MG Bumex 2 MG No 1{table BID Bumex 2 MG t} Spironolact Spironolact No 1{table QD Spironolac one 25 MG one 25 MG t} tone 25 MG Eliquis 2.5 Eliquis 2.5 No Eliquis mg 2.5 mg mg 2.5 mg 2.5 mg 2.5 mg Lipitor 10 Lipitor 10 No 1{table QD Lipitor 10 MG MG t} MG Requip 1 MG Requip 1 MG No 1{table Requip 1 t} MG Duloxetine Duloxetine No 1{capsu BID Duloxetine HCl 60 MG HCl 60 MG le} HCl 60 MG Duloxetine Duloxetine No 1{capsu BID Duloxetine HCl 60 MG HCl 60 MG le} HCl 60 MG Metolazone Metolazone No QD Metolazone 2.5 MG 2.5 MG 2.5 MG Duloxetine Duloxetine No 1{capsu BID Duloxetine HCl 60 MG HCl 60 MG le} HCl 60 MG Bumex 2 MG Bumex 2 MG No 1{table BID Bumex 2 MG t} Aspirin Aspirin No Aspirin Neurontin Neurontin No 1{table TID Neurontin 600 MG 600 MG t} 600 MG Ferrous Ferrous No 1{table QD Ferrous Sulfate 324 Sulfate 324 t} Sulfate MG MG 324 MG Trazodone Trazodone No 1{table QD Trazodone HCl 150 MG HCl 150 MG t_at_be HCl 150 MG dtime} CoQ-10 CoQ-10 No CoQ-10 Spironolact Spironolact No 1{table QD Spironolac one 25 MG one 25 MG t} tone 25 MG Ropinirole Ropinirole No Ropinirole HCl 1 MG HCl 1 MG HCl 1 MG [place] 3 [place] 3 No [place] 3 Famotidine Famotidine No 1{table QD Famotidine 20 MG 20 MG t_at_be 20 MG dtime} Metoprolol Metoprolol No Metoprolol Succinate Succinate Succinate ER 25 MG ER 25 MG ER 25 MG Hydromorpho Hydromorpho No 1{table Hydromorph ne HCl 4 MG ne HCl 4 MG t_as_ne one HCl 4 eded} MG Ropinirole Ropinirole No Ropinirole HCl 1 MG HCl 1 MG HCl 1 MG Eliquis 2.5 Eliquis 2.5 No Eliquis mg 2.5 mg mg 2.5 mg 2.5 mg 2.5 mg Albuterol Albuterol No 2{puffs Albuterol Sulfate HFA Sulfate HFA _as_nee Sulfate 108 (90 108 (90 ded} HFA 108 Base) Base) (90 Base) MCG/ACT MCG/ACT MCG/ACT Trazodone Trazodone No Trazodone HCl 150 MG HCl 150 MG HCl 150 MG Potassium Potassium No 1{table QD Potassium Chloride ER Chloride ER t_with_ Chloride 20 MEQ 20 MEQ food} ER 20 MEQ Lipitor 10 Lipitor 10 No 1{table QD Lipitor 10 MG MG t} MG Singulair Singulair No 1{table QD Singulair 10 MG 10 MG t} 10 MG Breo Breo No 1{puff} QD Breo Ellipta Ellipta Ellipta 200-25 200-25 200-25 MCG/INH MCG/INH MCG/INH Folic Acid Folic Acid No Folic Acid 1 MG 1 MG 1 MG Omeprazole Omeprazole No Omeprazole 40 MG 40 MG 40 MG Methocarbam Methocarbam No 1{table Methocarba ol 750 MG ol 750 MG t} mol 750 MG Allopurinol Allopurinol No Allopurino 300 MG 300 MG l 300 MG Requip 1 MG Requip 1 MG No 1{table Requip 1 t} MG Breo Breo No Breo Ellipta Ellipta Ellipta 200-25 200-25 200-25 MCG/INH MCG/INH MCG/INH Duloxetine Duloxetine No 1{capsu BID Duloxetine HCl 60 MG HCl 60 MG le} HCl 60 MG Metolazone Metolazone No QD Metolazone 2.5 MG 2.5 MG 2.5 MG Duloxetine Duloxetine No 1{capsu BID Duloxetine HCl 60 MG HCl 60 MG le} HCl 60 MG Bumex 2 MG Bumex 2 MG No 1{table BID Bumex 2 MG t} Aspirin Aspirin No Aspirin Neurontin Neurontin No 1{table TID Neurontin 600 MG 600 MG t} 600 MG Ferrous Ferrous No 1{table QD Ferrous Sulfate 324 Sulfate 324 t} Sulfate MG MG 324 MG Trazodone Trazodone No 1{table QD Trazodone HCl 150 MG HCl 150 MG t_at_be HCl 150 MG dtime} CoQ-10 CoQ-10 No CoQ-10 Spironolact Spironolact No 1{table QD Spironolac one 25 MG one 25 MG t} tone 25 MG Ropinirole Ropinirole No Ropinirole HCl 1 MG HCl 1 MG HCl 1 MG [place] 3 [place] 3 No [place] 3 Famotidine Famotidine No 1{table QD Famotidine 20 MG 20 MG t_at_be 20 MG dtime} Metoprolol Metoprolol No Metoprolol Succinate Succinate Succinate ER 25 MG ER 25 MG ER 25 MG Hydromorpho Hydromorpho No 1{table Hydromorph ne HCl 4 MG ne HCl 4 MG t_as_ne one HCl 4 eded} MG Ropinirole Ropinirole No Ropinirole HCl 1 MG HCl 1 MG HCl 1 MG Eliquis 2.5 Eliquis 2.5 No Eliquis mg 2.5 mg mg 2.5 mg 2.5 mg 2.5 mg Albuterol Albuterol No 2{puffs Albuterol Sulfate HFA Sulfate HFA _as_nee Sulfate 108 (90 108 (90 ded} HFA 108 Base) Base) (90 Base) MCG/ACT MCG/ACT MCG/ACT Trazodone Trazodone No Trazodone HCl 150 MG HCl 150 MG HCl 150 MG Potassium Potassium No 1{table QD Potassium Chloride ER Chloride ER t_with_ Chloride 20 MEQ 20 MEQ food} ER 20 MEQ Lipitor 10 Lipitor 10 No 1{table QD Lipitor 10 MG MG t} MG Singulair Singulair No 1{table QD Singulair 10 MG 10 MG t} 10 MG Breo Breo No 1{puff} QD Breo Ellipta Ellipta Ellipta 200-25 200-25 200-25 MCG/INH MCG/INH MCG/INH Folic Acid Folic Acid No Folic Acid 1 MG 1 MG 1 MG Omeprazole Omeprazole No Omeprazole 40 MG 40 MG 40 MG Methocarbam Methocarbam No 1{table Methocarba ol 750 MG ol 750 MG t} mol 750 MG Allopurinol Allopurinol No Allopurino 300 MG 300 MG l 300 MG Requip 1 MG Requip 1 MG No 1{table Requip 1 t} MG Breo Breo No Breo Ellipta Ellipta Ellipta 200-25 200-25 200-25 MCG/INH MCG/INH MCG/INH Methocarbam Methocarbam No 1{table Methocarba ol 750 MG ol 750 MG t} mol 750 MG Spironolact Spironolact No 1{table QD Spironolac one 25 MG one 25 MG t} tone 25 MG Metolazone Metolazone No QD Metolazone 2.5 MG 2.5 MG 2.5 MG Duloxetine Duloxetine No 1{capsu BID Duloxetine HCl 60 MG HCl 60 MG le} HCl 60 MG Ropinirole Ropinirole No Ropinirole HCl 1 MG HCl 1 MG HCl 1 MG Bumex 2 MG Bumex 2 MG No 1{table BID Bumex 2 MG t} Breo Breo No 1{puff} QD Breo Ellipta Ellipta Ellipta 200-25 200-25 200-25 MCG/INH MCG/INH MCG/INH Potassium Potassium No 1{table QD Potassium Chloride ER Chloride ER t_with_ Chloride 20 MEQ 20 MEQ food} ER 20 MEQ Hydromorpho Hydromorpho No 1{table Hydromorph ne HCl 4 MG ne HCl 4 MG t_as_ne one HCl 4 eded} MG Trazodone Trazodone No Trazodone HCl 150 MG HCl 150 MG HCl 150 MG Albuterol Albuterol No 2{puffs Albuterol Sulfate HFA Sulfate HFA _as_nee Sulfate 108 (90 108 (90 ded} HFA 108 Base) Base) (90 Base) MCG/ACT MCG/ACT MCG/ACT Breo Breo No Breo Ellipta Ellipta Ellipta 200-25 200-25 200-25 MCG/INH MCG/INH MCG/INH Omeprazole Omeprazole No Omeprazole 40 MG 40 MG 40 MG Metoprolol Metoprolol No Metoprolol Succinate Succinate Succinate ER 25 MG ER 25 MG ER 25 MG Allopurinol Allopurinol No Allopurino 300 MG 300 MG l 300 MG Ferrous Ferrous No 1{table QD Ferrous Sulfate 324 Sulfate 324 t} Sulfate MG MG 324 MG Eliquis 2.5 Eliquis 2.5 No Eliquis mg 2.5 mg mg 2.5 mg 2.5 mg 2.5 mg Folic Acid Folic Acid No Folic Acid 1 MG 1 MG 1 MG Requip 1 MG Requip 1 MG No 1{table Requip 1 t} MG Trazodone Trazodone No 1{table QD Trazodone HCl 150 MG HCl 150 MG t_at_be HCl 150 MG dtime} Famotidine Famotidine No 1{table QD Famotidine 20 MG 20 MG t_at_be 20 MG dtime} Duloxetine Duloxetine No 1{capsu BID Duloxetine HCl 60 MG HCl 60 MG le} HCl 60 MG [place] 3 [place] 3 No [place] 3 Singulair Singulair No 1{table QD Singulair 10 MG 10 MG t} 10 MG Neurontin Neurontin No 1{table TID Neurontin 600 MG 600 MG t} 600 MG Requip 1 MG Requip 1 MG No Requip 1 MG CoQ-10 CoQ-10 No CoQ-10 Ropinirole Ropinirole No Ropinirole HCl 1 MG HCl 1 MG HCl 1 MG Aspirin Aspirin No Aspirin Lipitor 10 Lipitor 10 No 1{table QD Lipitor 10 MG MG t} MG CoQ-10 CoQ-10 No Breo Breo No Ellipta Ellipta 200-25 200-25 MCG/INH MCG/INH Potassium Potassium No 1{table QD Chloride ER Chloride ER t_with_ 20 MEQ 20 MEQ food} Albuterol Albuterol No 2{puffs Sulfate HFA Sulfate HFA _as_nee 108 (90 108 (90 ded} Base) Base) MCG/ACT MCG/ACT Duloxetine Duloxetine No 1{capsu BID HCl 60 MG HCl 60 MG le} Spironolact Spironolact No 1{table QD one 25 MG one 25 MG t} Aspirin Aspirin No Metolazone Metolazone No QD 2.5 MG 2.5 MG Ropinirole Ropinirole No HCl 1 MG HCl 1 MG Trazodone Trazodone No 1{table QD HCl 150 MG HCl 150 MG t_at_be dtime} Bumex 2 MG Bumex 2 MG No 1{table BID t} Singulair Singulair No 1{table QD 10 MG 10 MG t} Eliquis 2.5 Eliquis 2.5 No mg 2.5 mg mg 2.5 mg Lipitor 10 Lipitor 10 No 1{table QD MG MG t} Allopurinol Allopurinol No 300 MG 300 MG Requip 1 MG Requip 1 MG No 1{table t} Famotidine Famotidine No 1{table QD 20 MG 20 MG t_at_be dtime} Breo Breo No 1{puff} QD Ellipta Ellipta 200-25 200-25 MCG/INH MCG/INH Trazodone Trazodone No HCl 150 MG HCl 150 MG Ferrous Ferrous No 1{table QD Sulfate 324 Sulfate 324 t} MG MG Requip 1 MG Requip 1 MG No Ropinirole Ropinirole No HCl 1 MG HCl 1 MG Omeprazole Omeprazole No 40 MG 40 MG [place] 3 [place] 3 No Metoprolol Metoprolol No Succinate Succinate ER 25 MG ER 25 MG Folic Acid Folic Acid No 1 MG 1 MG Neurontin Neurontin No 1{table BID 600 MG 600 MG t} Duloxetine Duloxetine No 1{capsu BID HCl 60 MG HCl 60 MG le} Hydromorpho Hydromorpho No 1{table ne HCl 4 MG ne HCl 4 MG t_as_ne eded} Methocarbam Methocarbam No 1{table ol 750 MG ol 750 MG t} CoQ-10 CoQ-10 No CoQ-10 Breo Breo No Breo Ellipta Ellipta Ellipta 200-25 200-25 200-25 MCG/INH MCG/INH MCG/INH Potassium Potassium No 1{table QD Potassium Chloride ER Chloride ER t_with_ Chloride 20 MEQ 20 MEQ food} ER 20 MEQ Albuterol Albuterol No 2{puffs Albuterol Sulfate HFA Sulfate HFA _as_nee Sulfate 108 (90 108 (90 ded} HFA 108 Base) Base) (90 Base) MCG/ACT MCG/ACT MCG/ACT Duloxetine Duloxetine No 1{capsu BID Duloxetine HCl 60 MG HCl 60 MG le} HCl 60 MG Spironolact Spironolact No 1{table QD Spironolac one 25 MG one 25 MG t} tone 25 MG Aspirin Aspirin No Aspirin Metolazone Metolazone No QD Metolazone 2.5 MG 2.5 MG 2.5 MG Ropinirole Ropinirole No Ropinirole HCl 1 MG HCl 1 MG HCl 1 MG Trazodone Trazodone No 1{table QD Trazodone HCl 150 MG HCl 150 MG t_at_be HCl 150 MG dtime} Bumex 2 MG Bumex 2 MG No 1{table BID Bumex 2 MG t} Singulair Singulair No 1{table QD Singulair 10 MG 10 MG t} 10 MG Eliquis 2.5 Eliquis 2.5 No Eliquis mg 2.5 mg mg 2.5 mg 2.5 mg 2.5 mg Lipitor 10 Lipitor 10 No 1{table QD Lipitor 10 MG MG t} MG Allopurinol Allopurinol No Allopurino 300 MG 300 MG l 300 MG Requip 1 MG Requip 1 MG No 1{table Requip 1 t} MG Famotidine Famotidine No 1{table QD Famotidine 20 MG 20 MG t_at_be 20 MG dtime} Breo Breo No 1{puff} QD Breo Ellipta Ellipta Ellipta 200-25 200-25 200-25 MCG/INH MCG/INH MCG/INH Trazodone Trazodone No Trazodone HCl 150 MG HCl 150 MG HCl 150 MG Ferrous Ferrous No 1{table QD Ferrous Sulfate 324 Sulfate 324 t} Sulfate MG MG 324 MG Requip 1 MG Requip 1 MG No Requip 1 MG Ropinirole Ropinirole No Ropinirole HCl 1 MG HCl 1 MG HCl 1 MG Omeprazole Omeprazole No Omeprazole 40 MG 40 MG 40 MG [place] 3 [place] 3 No [place] 3 Metoprolol Metoprolol No Metoprolol Succinate Succinate Succinate ER 25 MG ER 25 MG ER 25 MG Folic Acid Folic Acid No Folic Acid 1 MG 1 MG 1 MG Neurontin Neurontin No 1{table BID Neurontin 600 MG 600 MG t} 600 MG Duloxetine Duloxetine No 1{capsu BID Duloxetine HCl 60 MG HCl 60 MG le} HCl 60 MG Hydromorpho Hydromorpho No 1{table Hydromorph ne HCl 4 MG ne HCl 4 MG t_as_ne one HCl 4 eded} MG Methocarbam Methocarbam No 1{table Methocarba ol 750 MG ol 750 MG t} mol 750 MG Allopurinol Allopurinol No Allopurino 300 MG 300 MG l 300 MG Eliquis 2.5 Eliquis 2.5 No Eliquis mg 2.5 mg mg 2.5 mg 2.5 mg 2.5 mg rOPINIRole rOPINIRole No rOPINIRole HCl 1 MG HCl 1 MG HCl 1 MG Aspirin Aspirin No Aspirin metOLazone metOLazone No QD metOLazone 2.5 MG 2.5 MG 2.5 MG traZODone traZODone No traZODone HCl 150 MG HCl 150 MG HCl 150 MG Lipitor 10 Lipitor 10 No 1{table QD Lipitor 10 MG MG t} MG Singulair Singulair No 1{table QD Singulair 10 MG 10 MG t} 10 MG Spironolact Spironolact No 1{table QD Spironolac one 25 MG one 25 MG t} tone 25 MG Ferrous Ferrous No 1{table QD Ferrous Sulfate 324 Sulfate 324 t} Sulfate MG MG 324 MG rOPINIRole rOPINIRole No rOPINIRole HCl 1 MG HCl 1 MG HCl 1 MG Potassium Potassium No 1{table QD Potassium Chloride ER Chloride ER t_with_ Chloride 20 MEQ 20 MEQ food} ER 20 MEQ Breo Breo No 1{puff} QD Breo Ellipta Ellipta Ellipta 200-25 200-25 200-25 MCG/INH MCG/INH MCG/INH Famotidine Famotidine No 1{table QD Famotidine 20 MG 20 MG t_at_be 20 MG dtime} Albuterol Albuterol No 2{puffs Albuterol Sulfate HFA Sulfate HFA _as_nee Sulfate 108 (90 108 (90 ded} HFA 108 Base) Base) (90 Base) MCG/ACT MCG/ACT MCG/ACT Requip 1 MG Requip 1 MG No Requip 1 MG Metoprolol Metoprolol No Metoprolol Succinate Succinate Succinate ER 25 MG ER 25 MG ER 25 MG [place] 3 [place] 3 No [place] 3 Breo Breo No Breo Ellipta Ellipta Ellipta 200-25 200-25 200-25 MCG/INH MCG/INH MCG/INH Bumex 2 MG Bumex 2 MG No 1{table BID Bumex 2 MG t} Omeprazole Omeprazole No Omeprazole 40 MG 40 MG 40 MG CoQ-10 CoQ-10 No CoQ-10 Requip 1 MG Requip 1 MG No 1{table Requip 1 t} MG Folic Acid Folic Acid No Folic Acid 1 MG 1 MG 1 MG Neurontin Neurontin No 1{table BID Neurontin 600 MG 600 MG t} 600 MG DULoxetine DULoxetine No DULoxetine HCl 60 MG HCl 60 MG HCl 60 MG HYDROmorpho HYDROmorpho No 1{table HYDROmorph ne HCl 4 MG ne HCl 4 MG t_as_ne one HCl 4 eded} MG Methocarbam Methocarbam No 1{table Methocarba ol 750 MG ol 750 MG t} mol 750 MG Lipitor 10 Lipitor 10 No 1{table QD Lipitor 10 MG MG t} MG Omeprazole Omeprazole No Omeprazole 40 MG 40 MG 40 MG DULoxetine DULoxetine No DULoxetine HCl 60 MG HCl 60 MG HCl 60 MG Albuterol Albuterol No 2{puffs Albuterol Sulfate HFA Sulfate HFA _as_nee Sulfate 108 (90 108 (90 ded} HFA 108 Base) Base) (90 Base) MCG/ACT MCG/ACT MCG/ACT [place] 3 [place] 3 No [place] 3 traZODone traZODone No 1{table QD traZODone HCl 150 MG HCl 150 MG t_at_be HCl 150 MG dtime} Metoprolol Metoprolol No Metoprolol Succinate Succinate Succinate ER 25 MG ER 25 MG ER 25 MG Eliquis 2.5 Eliquis 2.5 No Eliquis mg 2.5 mg mg 2.5 mg 2.5 mg 2.5 mg Breo Breo No 1{puff} QD Breo Ellipta Ellipta Ellipta 200-25 200-25 200-25 MCG/INH MCG/INH MCG/INH Neurontin Neurontin No 1{table TID Neurontin 600 MG 600 MG t} 600 MG Requip 1 MG Requip 1 MG No 1{table Requip 1 t} MG traZODone traZODone No traZODone HCl 150 MG HCl 150 MG HCl 150 MG Potassium Potassium No 1{table QD Potassium Chloride ER Chloride ER t_with_ Chloride 20 MEQ 20 MEQ food} ER 20 MEQ Bumex 2 MG Bumex 2 MG No 1{table BID Bumex 2 MG t} Aspirin Aspirin No Aspirin Allopurinol Allopurinol No Allopurino 300 MG 300 MG l 300 MG Methocarbam Methocarbam No 1{table Methocarba ol 750 MG ol 750 MG t} mol 750 MG metOLazone metOLazone No QD metOLazone 2.5 MG 2.5 MG 2.5 MG Spironolact Spironolact No 1{table QD Spironolac one 25 MG one 25 MG t} tone 25 MG HYDROmorpho HYDROmorpho No 1{table HYDROmorph ne HCl 4 MG ne HCl 4 MG t_as_ne one HCl 4 eded} MG Famotidine Famotidine No 1{table QD Famotidine 20 MG 20 MG t_at_be 20 MG dtime} Singulair Singulair No 1{table QD Singulair 10 MG 10 MG t} 10 MG rOPINIRole rOPINIRole No rOPINIRole HCl 1 MG HCl 1 MG HCl 1 MG rOPINIRole rOPINIRole No rOPINIRole HCl 1 MG HCl 1 MG HCl 1 MG Folic Acid Folic Acid No Folic Acid 1 MG 1 MG 1 MG Breo Breo No Breo Ellipta Ellipta Ellipta 200-25 200-25 200-25 MCG/INH MCG/INH MCG/INH Ferrous Ferrous No 1{table QD Ferrous Sulfate 324 Sulfate 324 t} Sulfate MG MG 324 MG CoQ-10 CoQ-10 No CoQ-10 Neurontin Neurontin No 1{table TID Neurontin 600 MG 600 MG t} 600 MG Aspirin Aspirin No Aspirin Potassium Potassium No 1{table QD Potassium Chloride ER Chloride ER t_with_ Chloride 20 MEQ 20 MEQ food} ER 20 MEQ Eliquis 2.5 Eliquis 2.5 No Eliquis mg 2.5 mg mg 2.5 mg 2.5 mg 2.5 mg Singulair Singulair No 1{table QD Singulair 10 MG 10 MG t} 10 MG Famotidine Famotidine No 1{table QD Famotidine 20 MG 20 MG t_at_be 20 MG dtime} Methocarbam Methocarbam No 1{table Methocarba ol 750 MG ol 750 MG t} mol 750 MG traZODone traZODone No traZODone HCl 150 MG HCl 150 MG HCl 150 MG DULoxetine DULoxetine No 1{capsu BID DULoxetine HCl 60 MG HCl 60 MG le} HCl 60 MG Breo Breo No Breo Ellipta Ellipta Ellipta 200-25 200-25 200-25 MCG/INH MCG/INH MCG/INH Bumex 2 MG Bumex 2 MG No 1{table BID Bumex 2 MG t} HYDROmorpho HYDROmorpho No 1{table HYDROmorph ne HCl 4 MG ne HCl 4 MG t_as_ne one HCl 4 eded} MG Allopurinol Allopurinol No Allopurino 300 MG 300 MG l 300 MG Omeprazole Omeprazole No Omeprazole 40 MG 40 MG 40 MG Albuterol Albuterol No 2{puffs Albuterol Sulfate HFA Sulfate HFA _as_nee Sulfate 108 (90 108 (90 ded} HFA 108 Base) Base) (90 Base) MCG/ACT MCG/ACT MCG/ACT Breo Breo No 1{puff} QD Breo Ellipta Ellipta Ellipta 200-25 200-25 200-25 MCG/INH MCG/INH MCG/INH CoQ-10 CoQ-10 No CoQ-10 Spironolact Spironolact No 1{table QD Spironolac one 25 MG one 25 MG t} tone 25 MG rOPINIRole rOPINIRole No rOPINIRole HCl 1 MG HCl 1 MG HCl 1 MG Lipitor 10 Lipitor 10 No 1{table QD Lipitor 10 MG MG t} MG Requip 1 MG Requip 1 MG No 1{table Requip 1 t} MG metOLazone metOLazone No QD metOLazone 2.5 MG 2.5 MG 2.5 MG [place] 3 [place] 3 No [place] 3 traZODone traZODone No 1{table QD traZODone HCl 150 MG HCl 150 MG t_at_be HCl 150 MG dtime} Metoprolol Metoprolol No Metoprolol Succinate Succinate Succinate ER 25 MG ER 25 MG ER 25 MG Ferrous Ferrous No 1{table QD Ferrous Sulfate 324 Sulfate 324 t} Sulfate MG MG 324 MG Folic Acid Folic Acid No Folic Acid 1 MG 1 MG 1 MG DULoxetine DULoxetine No DULoxetine HCl 60 MG HCl 60 MG HCl 60 MG rOPINIRole rOPINIRole No rOPINIRole HCl 1 MG HCl 1 MG HCl 1 MG Neurontin Neurontin No 1{table TID Neurontin 600 MG 600 MG t} 600 MG Aspirin Aspirin No Aspirin Potassium Potassium No 1{table QD Potassium Chloride ER Chloride ER t_with_ Chloride 20 MEQ 20 MEQ food} ER 20 MEQ Eliquis 2.5 Eliquis 2.5 No Eliquis mg 2.5 mg mg 2.5 mg 2.5 mg 2.5 mg Singulair Singulair No 1{table QD Singulair 10 MG 10 MG t} 10 MG Famotidine Famotidine No 1{table QD Famotidine 20 MG 20 MG t_at_be 20 MG dtime} Methocarbam Methocarbam No 1{table Methocarba ol 750 MG ol 750 MG t} mol 750 MG traZODone traZODone No traZODone HCl 150 MG HCl 150 MG HCl 150 MG DULoxetine DULoxetine No 1{capsu BID DULoxetine HCl 60 MG HCl 60 MG le} HCl 60 MG Breo Breo No Breo Ellipta Ellipta Ellipta 200-25 200-25 200-25 MCG/INH MCG/INH MCG/INH Bumex 2 MG Bumex 2 MG No 1{table BID Bumex 2 MG t} HYDROmorpho HYDROmorpho No 1{table HYDROmorph ne HCl 4 MG ne HCl 4 MG t_as_ne one HCl 4 eded} MG Allopurinol Allopurinol No Allopurino 300 MG 300 MG l 300 MG Omeprazole Omeprazole No Omeprazole 40 MG 40 MG 40 MG Albuterol Albuterol No 2{puffs Albuterol Sulfate HFA Sulfate HFA _as_nee Sulfate 108 (90 108 (90 ded} HFA 108 Base) Base) (90 Base) MCG/ACT MCG/ACT MCG/ACT Breo Breo No 1{puff} QD Breo Ellipta Ellipta Ellipta 200-25 200-25 200-25 MCG/INH MCG/INH MCG/INH CoQ-10 CoQ-10 No CoQ-10 Spironolact Spironolact No 1{table QD Spironolac one 25 MG one 25 MG t} tone 25 MG rOPINIRole rOPINIRole No rOPINIRole HCl 1 MG HCl 1 MG HCl 1 MG Lipitor 10 Lipitor 10 No 1{table QD Lipitor 10 MG MG t} MG Requip 1 MG Requip 1 MG No 1{table Requip 1 t} MG metOLazone metOLazone No QD metOLazone 2.5 MG 2.5 MG 2.5 MG [place] 3 [place] 3 No [place] 3 traZODone traZODone No 1{table QD traZODone HCl 150 MG HCl 150 MG t_at_be HCl 150 MG dtime} Metoprolol Metoprolol No Metoprolol Succinate Succinate Succinate ER 25 MG ER 25 MG ER 25 MG Ferrous Ferrous No 1{table QD Ferrous Sulfate 324 Sulfate 324 t} Sulfate MG MG 324 MG Folic Acid Folic Acid No Folic Acid 1 MG 1 MG 1 MG DULoxetine DULoxetine No DULoxetine HCl 60 MG HCl 60 MG HCl 60 MG rOPINIRole rOPINIRole No rOPINIRole HCl 1 MG HCl 1 MG HCl 1 MG DULoxetine DULoxetine No 1{capsu BID DULoxetine HCl 60 MG HCl 60 MG le} HCl 60 MG Breo Breo No Breo Ellipta Ellipta Ellipta 200-25 200-25 200-25 MCG/INH MCG/INH MCG/INH Potassium Potassium No 1{table QD Potassium Chloride ER Chloride ER t_with_ Chloride 20 MEQ 20 MEQ food} ER 20 MEQ Neurontin Neurontin No 1{table TID Neurontin 600 MG 600 MG t} 600 MG Aspirin Aspirin No Aspirin Famotidine Famotidine No 1{table QD Famotidine 20 MG 20 MG t_at_be 20 MG dtime} HYDROmorpho HYDROmorpho No 1{table HYDROmorph ne HCl 4 MG ne HCl 4 MG t_as_ne one HCl 4 eded} MG Allopurinol Allopurinol No Allopurino 300 MG 300 MG l 300 MG Methocarbam Methocarbam No 1{table Methocarba ol 750 MG ol 750 MG t} mol 750 MG traZODone traZODone No traZODone HCl 150 MG HCl 150 MG HCl 150 MG Bumex 2 MG Bumex 2 MG No 1{table BID Bumex 2 MG t} Requip 1 MG Requip 1 MG No 1{table Requip 1 t} MG rOPINIRole rOPINIRole No rOPINIRole HCl 1 MG HCl 1 MG HCl 1 MG Omeprazole Omeprazole No Omeprazole 40 MG 40 MG 40 MG Lipitor 10 Lipitor 10 No 1{table QD Lipitor 10 MG MG t} MG Albuterol Albuterol No 2{puffs Albuterol Sulfate HFA Sulfate HFA _as_nee Sulfate 108 (90 108 (90 ded} HFA 108 Base) Base) (90 Base) MCG/ACT MCG/ACT MCG/ACT [place] 3 [place] 3 No [place] 3 traZODone traZODone No 1{table QD traZODone HCl 150 MG HCl 150 MG t_at_be HCl 150 MG dtime} Metoprolol Metoprolol No Metoprolol Succinate Succinate Succinate ER 25 MG ER 25 MG ER 25 MG Spironolact Spironolact No 1{table QD Spironolac one 25 MG one 25 MG t} tone 25 MG rOPINIRole rOPINIRole No rOPINIRole HCl 1 MG HCl 1 MG HCl 1 MG Singulair Singulair No 1{table QD Singulair 10 MG 10 MG t} 10 MG metOLazone metOLazone No QD metOLazone 2.5 MG 2.5 MG 2.5 MG Eliquis 2.5 Eliquis 2.5 No Eliquis mg 2.5 mg mg 2.5 mg 2.5 mg 2.5 mg Breo Breo No 1{puff} QD Breo Ellipta Ellipta Ellipta 200-25 200-25 200-25 MCG/INH MCG/INH MCG/INH CoQ-10 CoQ-10 No CoQ-10 Ferrous Ferrous No 1{table QD Ferrous Sulfate 324 Sulfate 324 t} Sulfate MG MG 324 MG Folic Acid Folic Acid No Folic Acid 1 MG 1 MG 1 MG DULoxetine DULoxetine No DULoxetine HCl 60 MG HCl 60 MG HCl 60 MG Neurontin Neurontin No 1{table TID Neurontin 600 MG 600 MG t} 600 MG Breo Breo No Breo Ellipta Ellipta Ellipta 200-25 200-25 200-25 MCG/INH MCG/INH MCG/INH Potassium Potassium No 1{table QD Potassium Chloride ER Chloride ER t_with_ Chloride 20 MEQ 20 MEQ food} ER 20 MEQ Eliquis 2.5 Eliquis 2.5 No Eliquis mg 2.5 mg mg 2.5 mg 2.5 mg 2.5 mg Aspirin Aspirin No Aspirin Famotidine Famotidine No 1{table QD Famotidine 20 MG 20 MG t_at_be 20 MG dtime} HYDROmorpho HYDROmorpho No 1{table HYDROmorph ne HCl 4 MG ne HCl 4 MG t_as_ne one HCl 4 eded} MG Allopurinol Allopurinol No Allopurino 300 MG 300 MG l 300 MG Methocarbam Methocarbam No 1{table Methocarba ol 750 MG ol 750 MG t} mol 750 MG traZODone traZODone No traZODone HCl 150 MG HCl 150 MG HCl 150 MG Bumex 2 MG Bumex 2 MG No 1{table BID Bumex 2 MG t} Requip 1 MG Requip 1 MG No 1{table Requip 1 t} MG rOPINIRole rOPINIRole No rOPINIRole HCl 1 MG HCl 1 MG HCl 1 MG Omeprazole Omeprazole No Omeprazole 40 MG 40 MG 40 MG DULoxetine DULoxetine No 1{capsu BID DULoxetine HCl 60 MG HCl 60 MG le} HCl 60 MG Albuterol Albuterol No 2{puffs Albuterol Sulfate HFA Sulfate HFA _as_nee Sulfate 108 (90 108 (90 ded} HFA 108 Base) Base) (90 Base) MCG/ACT MCG/ACT MCG/ACT [place] 3 [place] 3 No [place] 3 Spironolact Spironolact No 1{table QD Spironolac one 25 MG one 25 MG t} tone 25 MG Metoprolol Metoprolol No Metoprolol Succinate Succinate Succinate ER 25 MG ER 25 MG ER 25 MG Lipitor 10 Lipitor 10 No 1{table QD Lipitor 10 MG MG t} MG rOPINIRole rOPINIRole No rOPINIRole HCl 1 MG HCl 1 MG HCl 1 MG Singulair Singulair No 1{table QD Singulair 10 MG 10 MG t} 10 MG metOLazone metOLazone No QD metOLazone 2.5 MG 2.5 MG 2.5 MG traZODone traZODone No 1{table QD traZODone HCl 150 MG HCl 150 MG t_at_be HCl 150 MG dtime} Breo Breo No 1{puff} QD Breo Ellipta Ellipta Ellipta 200-25 200-25 200-25 MCG/INH MCG/INH MCG/INH CoQ-10 CoQ-10 No CoQ-10 Ferrous Ferrous No 1{table QD Ferrous Sulfate 324 Sulfate 324 t} Sulfate MG MG 324 MG Folic Acid Folic Acid No Folic Acid 1 MG 1 MG 1 MG DULoxetine DULoxetine No DULoxetine HCl 60 MG HCl 60 MG HCl 60 MG Aspirin Aspirin No Aspirin Allopurinol Allopurinol No Allopurino 300 MG 300 MG l 300 MG CoQ-10 CoQ-10 No CoQ-10 Eliquis 2.5 Eliquis 2.5 No Eliquis mg 2.5 mg mg 2.5 mg 2.5 mg 2.5 mg Neurontin Neurontin No 1{table TID Neurontin 600 MG 600 MG t} 600 MG Ferrous Ferrous No 1{table QD Ferrous Sulfate 324 Sulfate 324 t} Sulfate MG MG 324 MG Bumex 2 MG Bumex 2 MG No 1{table BID Bumex 2 MG t} DULoxetine DULoxetine No 1{capsu BID DULoxetine HCl 60 MG HCl 60 MG le} HCl 60 MG Breo Breo No 1{puff} QD Breo Ellipta Ellipta Ellipta 200-25 200-25 200-25 MCG/INH MCG/INH MCG/INH metOLazone metOLazone No QD metOLazone 2.5 MG 2.5 MG 2.5 MG HYDROmorpho HYDROmorpho No 1{table HYDROmorph ne HCl 4 MG ne HCl 4 MG t_as_ne one HCl 4 eded} MG Albuterol Albuterol No 2{puffs Albuterol Sulfate HFA Sulfate HFA _as_nee Sulfate 108 (90 108 (90 ded} HFA 108 Base) Base) (90 Base) MCG/ACT MCG/ACT MCG/ACT rOPINIRole rOPINIRole No rOPINIRole HCl 1 MG HCl 1 MG HCl 1 MG DULoxetine DULoxetine No DULoxetine HCl 60 MG HCl 60 MG HCl 60 MG Methocarbam Methocarbam No 1{table Methocarba ol 750 MG ol 750 MG t} mol 750 MG Requip 1 MG Requip 1 MG No 1{table Requip 1 t} MG Folic Acid Folic Acid No Folic Acid 1 MG 1 MG 1 MG Ketoconazol Ketoconazol No 1{appli BID Ketoconazo e 2 % e 2 % cation} le 2 % rOPINIRole rOPINIRole No rOPINIRole HCl 1 MG HCl 1 MG HCl 1 MG Omeprazole Omeprazole No Omeprazole 40 MG 40 MG 40 MG Singulair Singulair No 1{table QD Singulair 10 MG 10 MG t} 10 MG traZODone traZODone No 1{table QD traZODone HCl 150 MG HCl 150 MG t_at_be HCl 150 MG dtime} Potassium Potassium No 1{table QD Potassium Chloride ER Chloride ER t_with_ Chloride 20 MEQ 20 MEQ food} ER 20 MEQ Lipitor 10 Lipitor 10 No 1{table QD Lipitor 10 MG MG t} MG traZODone traZODone No traZODone HCl 150 MG HCl 150 MG HCl 150 MG Breo Breo No Breo Ellipta Ellipta Ellipta 200-25 200-25 200-25 MCG/INH MCG/INH MCG/INH Fluconazole Fluconazole No 1{table Fluconazol 150 MG 150 MG ts} e 150 MG Triamcinolo Triamcinolo No 1{appli BID Triamcinol ne ne cation} one Acetonide Acetonide Acetonide 0.1 % 0.1 % 0.1 % Spironolact Spironolact No 1{table QD Spironolac one 25 MG one 25 MG t} tone 25 MG Metoprolol Metoprolol No Metoprolol Succinate Succinate Succinate ER 25 MG ER 25 MG ER 25 MG [place] 3 [place] 3 No [place] 3 Famotidine Famotidine No 1{table QD Famotidine 20 MG 20 MG t_at_be 20 MG dtime} metOLazone metOLazone No QD metOLazone 2.5 MG 2.5 MG 2.5 MG DULoxetine DULoxetine No 1{capsu BID DULoxetine HCl 60 MG HCl 60 MG le} HCl 60 MG Albuterol Albuterol No 2{puffs Albuterol Sulfate HFA Sulfate HFA _as_nee Sulfate 108 (90 108 (90 ded} HFA 108 Base) Base) (90 Base) MCG/ACT MCG/ACT MCG/ACT Allopurinol Allopurinol No Allopurino 300 MG 300 MG l 300 MG HYDROmorpho HYDROmorpho No 1{table HYDROmorph ne HCl 4 MG ne HCl 4 MG t_as_ne one HCl 4 eded} MG CoQ-10 CoQ-10 No CoQ-10 rOPINIRole rOPINIRole No rOPINIRole HCl 1 MG HCl 1 MG HCl 1 MG Requip 1 MG Requip 1 MG No 1{table Requip 1 t} MG Bumex 2 MG Bumex 2 MG No 1{table BID Bumex 2 MG t} Methocarbam Methocarbam No 1{table Methocarba ol 750 MG ol 750 MG t} mol 750 MG Breo Breo No 1{puff} QD Breo Ellipta Ellipta Ellipta 200-25 200-25 200-25 MCG/INH MCG/INH MCG/INH Folic Acid Folic Acid No Folic Acid 1 MG 1 MG 1 MG traZODone traZODone No traZODone HCl 150 MG HCl 150 MG HCl 150 MG Triamcinolo Triamcinolo No Triamcinol ne ne one Acetonide Acetonide Acetonide 0.1 % 0.1 % 0.1 % DULoxetine DULoxetine No DULoxetine HCl 60 MG HCl 60 MG HCl 60 MG Lipitor 10 Lipitor 10 No 1{table QD Lipitor 10 MG MG t} MG rOPINIRole rOPINIRole No rOPINIRole HCl 1 MG HCl 1 MG HCl 1 MG Fluconazole Fluconazole No 1{table Fluconazol 150 MG 150 MG ts} e 150 MG Eliquis 2.5 Eliquis 2.5 No Eliquis mg 2.5 mg mg 2.5 mg 2.5 mg 2.5 mg Breo Breo No Breo Ellipta Ellipta Ellipta 200-25 200-25 200-25 MCG/INH MCG/INH MCG/INH Potassium Potassium No 1{table QD Potassium Chloride ER Chloride ER t_with_ Chloride 20 MEQ 20 MEQ food} ER 20 MEQ Singulair Singulair No 1{table QD Singulair 10 MG 10 MG t} 10 MG traZODone traZODone No 1{table QD traZODone HCl 150 MG HCl 150 MG t_at_be HCl 150 MG dtime} Neurontin Neurontin No 1{table TID Neurontin 600 MG 600 MG t} 600 MG Ferrous Ferrous No 1{table QD Ferrous Sulfate 324 Sulfate 324 t} Sulfate MG MG 324 MG Ketoconazol Ketoconazol No 1{appli BID Ketoconazo e 2 % e 2 % cation} le 2 % Aspirin Aspirin No Aspirin Spironolact Spironolact No 1{table QD Spironolac one 25 MG one 25 MG t} tone 25 MG Omeprazole Omeprazole No Omeprazole 40 MG 40 MG 40 MG Metoprolol Metoprolol No Metoprolol Succinate Succinate Succinate ER 25 MG ER 25 MG ER 25 MG [place] 3 [place] 3 No [place] 3 Famotidine Famotidine No 1{table QD Famotidine 20 MG 20 MG t_at_be 20 MG dtime} metOLazone metOLazone No QD metOLazone 2.5 MG 2.5 MG 2.5 MG HYDROmorpho HYDROmorpho No 1{table HYDROmorph ne HCl 4 MG ne HCl 4 MG t_as_ne one HCl 4 eded} MG CoQ-10 CoQ-10 No CoQ-10 Allopurinol Allopurinol No Allopurino 300 MG 300 MG l 300 MG Neurontin Neurontin No 1{table TID Neurontin 600 MG 600 MG t} 600 MG Ferrous Ferrous No 1{table QD Ferrous Sulfate 324 Sulfate 324 t} Sulfate MG MG 324 MG Methocarbam Methocarbam No 1{table Methocarba ol 750 MG ol 750 MG t} mol 750 MG Breo Breo No 1{puff} QD Breo Ellipta Ellipta Ellipta 200-25 200-25 200-25 MCG/INH MCG/INH MCG/INH Bumex 2 MG Bumex 2 MG No 1{table BID Bumex 2 MG t} DULoxetine DULoxetine No 1{capsu BID DULoxetine HCl 60 MG HCl 60 MG le} HCl 60 MG Albuterol Albuterol No 2{puffs Albuterol Sulfate HFA Sulfate HFA _as_nee Sulfate 108 (90 108 (90 ded} HFA 108 Base) Base) (90 Base) MCG/ACT MCG/ACT MCG/ACT Triamcinolo Triamcinolo No Triamcinol ne ne one Acetonide Acetonide Acetonide 0.1 % 0.1 % 0.1 % DULoxetine DULoxetine No DULoxetine HCl 60 MG HCl 60 MG HCl 60 MG traZODone traZODone No traZODone HCl 150 MG HCl 150 MG HCl 150 MG rOPINIRole rOPINIRole No rOPINIRole HCl 1 MG HCl 1 MG HCl 1 MG Requip 1 MG Requip 1 MG No 1{table Requip 1 t} MG Folic Acid Folic Acid No Folic Acid 1 MG 1 MG 1 MG Lipitor 10 Lipitor 10 No 1{table QD Lipitor 10 MG MG t} MG rOPINIRole rOPINIRole No rOPINIRole HCl 1 MG HCl 1 MG HCl 1 MG Fluconazole Fluconazole No 1{table Fluconazol 150 MG 150 MG ts} e 150 MG Eliquis 2.5 Eliquis 2.5 No Eliquis mg 2.5 mg mg 2.5 mg 2.5 mg 2.5 mg traZODone traZODone No 1{table QD traZODone HCl 150 MG HCl 150 MG t_at_be HCl 150 MG dtime} Potassium Potassium No 1{table QD Potassium Chloride ER Chloride ER t_with_ Chloride 20 MEQ 20 MEQ food} ER 20 MEQ Singulair Singulair No 1{table QD Singulair 10 MG 10 MG t} 10 MG Nystatin Nystatin No Nystatin [id number] UNIT/GM UNIT/GM UNIT/GM Breo Breo No Breo Ellipta Ellipta Ellipta 200-25 200-25 200-25 MCG/INH MCG/INH MCG/INH Ketoconazol Ketoconazol No 1{appli BID Ketoconazo e 2 % e 2 % cation} le 2 % Aspirin Aspirin No Aspirin Spironolact Spironolact No 1{table QD Spironolac one 25 MG one 25 MG t} tone 25 MG Omeprazole Omeprazole No Omeprazole 40 MG 40 MG 40 MG Metoprolol Metoprolol No Metoprolol Succinate Succinate Succinate ER 25 MG ER 25 MG ER 25 MG [place] 3 [place] 3 No [place] 3 Famotidine Famotidine No 1{table QD Famotidine 20 MG 20 MG t_at_be 20 MG dtime} Lidocaine 5 Lidocaine 5 No 1{appli TID Lidocaine % % cation_ 5 % as_need ed} Singulair Singulair No 1{table QD Singulair 10 MG 10 MG t} 10 MG DULoxetine DULoxetine No 1{capsu BID DULoxetine HCl 60 MG HCl 60 MG le} HCl 60 MG Methocarbam Methocarbam No 1{table Methocarba ol 750 MG ol 750 MG t} mol 750 MG Aspirin Aspirin No Aspirin Lipitor 10 Lipitor 10 No 1{table QD Lipitor 10 MG MG t} MG Allopurinol Allopurinol No Allopurino 300 MG 300 MG l 300 MG HYDROmorpho HYDROmorpho No 1{table HYDROmorph ne HCl 4 MG ne HCl 4 MG t_as_ne one HCl 4 eded} MG Bumex 2 MG Bumex 2 MG No 1{table BID Bumex 2 MG t} rOPINIRole rOPINIRole No rOPINIRole HCl 1 MG HCl 1 MG HCl 1 MG Nystatin Nystatin No Nystatin [id number] UNIT/GM UNIT/GM UNIT/GM traZODone traZODone No 1{table QD traZODone HCl 150 MG HCl 150 MG t_at_be HCl 150 MG dtime} Ketoconazol Ketoconazol No 1{appli BID Ketoconazo e 2 % e 2 % cation} le 2 % Spironolact Spironolact No 1{table QD Spironolac one 25 MG one 25 MG t} tone 25 MG Folic Acid Folic Acid No Folic Acid 1 MG 1 MG 1 MG Neurontin Neurontin No 1{table TID Neurontin 600 MG 600 MG t} 600 MG metOLazone metOLazone No QD metOLazone 2.5 MG 2.5 MG 2.5 MG Triamcinolo Triamcinolo No Triamcinol ne ne one Acetonide Acetonide Acetonide 0.1 % 0.1 % 0.1 % Potassium Potassium No 1{table QD Potassium Chloride ER Chloride ER t_with_ Chloride 20 MEQ 20 MEQ food} ER 20 MEQ CoQ-10 CoQ-10 No CoQ-10 [place] 3 [place] 3 No [place] 3 Omeprazole Omeprazole No Omeprazole 40 MG 40 MG 40 MG Albuterol Albuterol No 2{puffs Albuterol Sulfate HFA Sulfate HFA _as_nee Sulfate 108 (90 108 (90 ded} HFA 108 Base) Base) (90 Base) MCG/ACT MCG/ACT MCG/ACT rOPINIRole rOPINIRole No rOPINIRole HCl 1 MG HCl 1 MG HCl 1 MG Requip 1 MG Requip 1 MG No 1{table Requip 1 t} MG Metoprolol Metoprolol No Metoprolol Succinate Succinate Succinate ER 25 MG ER 25 MG ER 25 MG traZODone traZODone No traZODone HCl 150 MG HCl 150 MG HCl 150 MG Fluconazole Fluconazole No 1{table Fluconazol 150 MG 150 MG ts} e 150 MG Eliquis 2.5 Eliquis 2.5 No Eliquis mg 2.5 mg mg 2.5 mg 2.5 mg 2.5 mg DULoxetine DULoxetine No BID DULoxetine HCl 60 MG HCl 60 MG HCl 60 MG Breo Breo No 1{puff} QD Breo Ellipta Ellipta Ellipta 200-25 200-25 200-25 MCG/INH MCG/INH MCG/INH Ferrous Ferrous No 1{table QD Ferrous Sulfate 324 Sulfate 324 t} Sulfate MG MG 324 MG Famotidine Famotidine No 1{table QD Famotidine 20 MG 20 MG t_at_be 20 MG dtime} Breo Breo No Breo Ellipta Ellipta Ellipta 200-25 200-25 200-25 MCG/INH MCG/INH MCG/INH Lidocaine 5 Lidocaine 5 No 1{appli TID Lidocaine % % cation_ 5 % as_need ed} Singulair Singulair No 1{table QD Singulair 10 MG 10 MG t} 10 MG DULoxetine DULoxetine No 1{capsu BID DULoxetine HCl 60 MG HCl 60 MG le} HCl 60 MG Methocarbam Methocarbam No 1{table Methocarba ol 750 MG ol 750 MG t} mol 750 MG Aspirin Aspirin No Aspirin Lipitor 10 Lipitor 10 No 1{table QD Lipitor 10 MG MG t} MG Allopurinol Allopurinol No Allopurino 300 MG 300 MG l 300 MG HYDROmorpho HYDROmorpho No 1{table HYDROmorph ne HCl 4 MG ne HCl 4 MG t_as_ne one HCl 4 eded} MG Bumex 2 MG Bumex 2 MG No 1{table BID Bumex 2 MG t} rOPINIRole rOPINIRole No rOPINIRole HCl 1 MG HCl 1 MG HCl 1 MG Nystatin Nystatin No Nystatin [id number] UNIT/GM UNIT/GM UNIT/GM traZODone traZODone No 1{table QD traZODone HCl 150 MG HCl 150 MG t_at_be HCl 150 MG dtime} Ketoconazol Ketoconazol No 1{appli BID Ketoconazo e 2 % e 2 % cation} le 2 % Spironolact Spironolact No 1{table QD Spironolac one 25 MG one 25 MG t} tone 25 MG Folic Acid Folic Acid No Folic Acid 1 MG 1 MG 1 MG Neurontin Neurontin No 1{table TID Neurontin 600 MG 600 MG t} 600 MG metOLazone metOLazone No QD metOLazone 2.5 MG 2.5 MG 2.5 MG Triamcinolo Triamcinolo No Triamcinol ne ne one Acetonide Acetonide Acetonide 0.1 % 0.1 % 0.1 % Potassium Potassium No 1{table QD Potassium Chloride ER Chloride ER t_with_ Chloride 20 MEQ 20 MEQ food} ER 20 MEQ CoQ-10 CoQ-10 No CoQ-10 [place] 3 [place] 3 No [place] 3 Omeprazole Omeprazole No Omeprazole 40 MG 40 MG 40 MG Albuterol Albuterol No 2{puffs Albuterol Sulfate HFA Sulfate HFA _as_nee Sulfate 108 (90 108 (90 ded} HFA 108 Base) Base) (90 Base) MCG/ACT MCG/ACT MCG/ACT rOPINIRole rOPINIRole No rOPINIRole HCl 1 MG HCl 1 MG HCl 1 MG Requip 1 MG Requip 1 MG No 1{table Requip 1 t} MG Metoprolol Metoprolol No Metoprolol Succinate Succinate Succinate ER 25 MG ER 25 MG ER 25 MG traZODone traZODone No traZODone HCl 150 MG HCl 150 MG HCl 150 MG Fluconazole Fluconazole No 1{table Fluconazol 150 MG 150 MG ts} e 150 MG Eliquis 2.5 Eliquis 2.5 No Eliquis mg 2.5 mg mg 2.5 mg 2.5 mg 2.5 mg DULoxetine DULoxetine No BID DULoxetine HCl 60 MG HCl 60 MG HCl 60 MG Breo Breo No 1{puff} QD Breo Ellipta Ellipta Ellipta 200-25 200-25 200-25 MCG/INH MCG/INH MCG/INH Ferrous Ferrous No 1{table QD Ferrous Sulfate 324 Sulfate 324 t} Sulfate MG MG 324 MG Famotidine Famotidine No 1{table QD Famotidine 20 MG 20 MG t_at_be 20 MG dtime} Breo Breo No Breo Ellipta Ellipta Ellipta 200-25 200-25 200-25 MCG/INH MCG/INH MCG/INH Lipitor 10 Lipitor 10 No 1{table QD Lipitor 10 MG MG t} MG metOLazone metOLazone No QD metOLazone 2.5 MG 2.5 MG 2.5 MG traZODone traZODone No traZODone HCl 150 MG HCl 150 MG HCl 150 MG Breo Breo No Breo Ellipta Ellipta Ellipta 200-25 200-25 200-25 MCG/INH MCG/INH MCG/INH Fluconazole Fluconazole No 1{table Fluconazol 150 MG 150 MG ts} e 150 MG Eliquis 2.5 Eliquis 2.5 No Eliquis mg 2.5 mg mg 2.5 mg 2.5 mg 2.5 mg Bumex 2 MG Bumex 2 MG No 1{table BID Bumex 2 MG t} Allopurinol Allopurinol No Allopurino 300 MG 300 MG l 300 MG rOPINIRole rOPINIRole No rOPINIRole HCl 1 MG HCl 1 MG HCl 1 MG Folic Acid Folic Acid No Folic Acid 1 MG 1 MG 1 MG Ketoconazol Ketoconazol No 1{appli BID Ketoconazo e 2 % e 2 % cation} le 2 % Requip 1 MG Requip 1 MG No 1{table Requip 1 t} MG Singulair Singulair No 1{table QD Singulair 10 MG 10 MG t} 10 MG Triamcinolo Triamcinolo No Triamcinol ne ne one Acetonide Acetonide Acetonide 0.1 % 0.1 % 0.1 % rOPINIRole rOPINIRole No rOPINIRole HCl 1 MG HCl 1 MG HCl 1 MG Lidocaine 5 Lidocaine 5 No 1{appli TID Lidocaine % % cation_ 5 % as_need ed} DULoxetine DULoxetine No BID DULoxetine HCl 60 MG HCl 60 MG HCl 60 MG Neurontin Neurontin No 1{table TID Neurontin 600 MG 600 MG t} 600 MG [place] 3 [place] 3 No [place] 3 HYDROmorpho HYDROmorpho No 1{table HYDROmorph ne HCl 4 MG ne HCl 4 MG t_as_ne one HCl 4 eded} MG traZODone traZODone No 1{table QD traZODone HCl 150 MG HCl 150 MG t_at_be HCl 150 MG dtime} Aspirin Aspirin No Aspirin Methocarbam Methocarbam No 1{table Methocarba ol 750 MG ol 750 MG t} mol 750 MG Ferrous Ferrous No 1{table QD Ferrous Sulfate 324 Sulfate 324 t} Sulfate MG MG 324 MG Potassium Potassium No 1{table QD Potassium Chloride ER Chloride ER t_with_ Chloride 20 MEQ 20 MEQ food} ER 20 MEQ Spironolact Spironolact No 1{table QD Spironolac one 25 MG one 25 MG t} tone 25 MG Nystatin Nystatin No Nystatin [id number] UNIT/GM UNIT/GM UNIT/GM Metoprolol Metoprolol No Metoprolol Succinate Succinate Succinate ER 25 MG ER 25 MG ER 25 MG DULoxetine DULoxetine No 1{capsu BID DULoxetine HCl 60 MG HCl 60 MG le} HCl 60 MG CoQ-10 CoQ-10 No CoQ-10 Famotidine Famotidine No 1{table QD Famotidine 20 MG 20 MG t_at_be 20 MG dtime} Breo Breo No 1{puff} QD Breo Ellipta Ellipta Ellipta 200-25 200-25 200-25 MCG/INH MCG/INH MCG/INH Albuterol Albuterol No 2{puffs Albuterol Sulfate HFA Sulfate HFA _as_nee Sulfate 108 (90 108 (90 ded} HFA 108 Base) Base) (90 Base) MCG/ACT MCG/ACT MCG/ACT Omeprazole Omeprazole No Omeprazole 40 MG 40 MG 40 MG Lipitor 10 Lipitor 10 No 1{table QD Lipitor 10 MG MG t} MG metOLazone metOLazone No QD metOLazone 2.5 MG 2.5 MG 2.5 MG traZODone traZODone No traZODone HCl 150 MG HCl 150 MG HCl 150 MG Breo Breo No Breo Ellipta Ellipta Ellipta 200-25 200-25 200-25 MCG/INH MCG/INH MCG/INH Fluconazole Fluconazole No 1{table Fluconazol 150 MG 150 MG ts} e 150 MG Eliquis 2.5 Eliquis 2.5 No Eliquis mg 2.5 mg mg 2.5 mg 2.5 mg 2.5 mg Bumex 2 MG Bumex 2 MG No 1{table BID Bumex 2 MG t} Allopurinol Allopurinol No Allopurino 300 MG 300 MG l 300 MG rOPINIRole rOPINIRole No rOPINIRole HCl 1 MG HCl 1 MG HCl 1 MG Folic Acid Folic Acid No Folic Acid 1 MG 1 MG 1 MG Ketoconazol Ketoconazol No 1{appli BID Ketoconazo e 2 % e 2 % cation} le 2 % Requip 1 MG Requip 1 MG No 1{table Requip 1 t} MG Singulair Singulair No 1{table QD Singulair 10 MG 10 MG t} 10 MG Triamcinolo Triamcinolo No Triamcinol ne ne one Acetonide Acetonide Acetonide 0.1 % 0.1 % 0.1 % rOPINIRole rOPINIRole No rOPINIRole HCl 1 MG HCl 1 MG HCl 1 MG Lidocaine 5 Lidocaine 5 No 1{appli TID Lidocaine % % cation_ 5 % as_need ed} DULoxetine DULoxetine No BID DULoxetine HCl 60 MG HCl 60 MG HCl 60 MG Neurontin Neurontin No 1{table TID Neurontin 600 MG 600 MG t} 600 MG [place] 3 [place] 3 No [place] 3 HYDROmorpho HYDROmorpho No 1{table HYDROmorph ne HCl 4 MG ne HCl 4 MG t_as_ne one HCl 4 eded} MG traZODone traZODone No 1{table QD traZODone HCl 150 MG HCl 150 MG t_at_be HCl 150 MG dtime} Aspirin Aspirin No Aspirin Methocarbam Methocarbam No 1{table Methocarba ol 750 MG ol 750 MG t} mol 750 MG Ferrous Ferrous No 1{table QD Ferrous Sulfate 324 Sulfate 324 t} Sulfate MG MG 324 MG Potassium Potassium No 1{table QD Potassium Chloride ER Chloride ER t_with_ Chloride 20 MEQ 20 MEQ food} ER 20 MEQ Spironolact Spironolact No 1{table QD Spironolac one 25 MG one 25 MG t} tone 25 MG Nystatin Nystatin No Nystatin [id number] UNIT/GM UNIT/GM UNIT/GM Metoprolol Metoprolol No Metoprolol Succinate Succinate Succinate ER 25 MG ER 25 MG ER 25 MG DULoxetine DULoxetine No 1{capsu BID DULoxetine HCl 60 MG HCl 60 MG le} HCl 60 MG CoQ-10 CoQ-10 No CoQ-10 Famotidine Famotidine No 1{table QD Famotidine 20 MG 20 MG t_at_be 20 MG dtime} Breo Breo No 1{puff} QD Breo Ellipta Ellipta Ellipta 200-25 200-25 200-25 MCG/INH MCG/INH MCG/INH Albuterol Albuterol No 2{puffs Albuterol Sulfate HFA Sulfate HFA _as_nee Sulfate 108 (90 108 (90 ded} HFA 108 Base) Base) (90 Base) MCG/ACT MCG/ACT MCG/ACT Omeprazole Omeprazole No Omeprazole 40 MG 40 MG 40 MG Lipitor 10 Lipitor 10 No 1{table QD Lipitor 10 MG MG t} MG metOLazone metOLazone No QD metOLazone 2.5 MG 2.5 MG 2.5 MG traZODone traZODone No traZODone HCl 150 MG HCl 150 MG HCl 150 MG Breo Breo No Breo Ellipta Ellipta Ellipta 200-25 200-25 200-25 MCG/INH MCG/INH MCG/INH Fluconazole Fluconazole No 1{table Fluconazol 150 MG 150 MG ts} e 150 MG Eliquis 2.5 Eliquis 2.5 No Eliquis mg 2.5 mg mg 2.5 mg 2.5 mg 2.5 mg Bumex 2 MG Bumex 2 MG No 1{table BID Bumex 2 MG t} Allopurinol Allopurinol No Allopurino 300 MG 300 MG l 300 MG rOPINIRole rOPINIRole No rOPINIRole HCl 1 MG HCl 1 MG HCl 1 MG Folic Acid Folic Acid No Folic Acid 1 MG 1 MG 1 MG Ketoconazol Ketoconazol No 1{appli BID Ketoconazo e 2 % e 2 % cation} le 2 % Requip 1 MG Requip 1 MG No 1{table Requip 1 t} MG Singulair Singulair No 1{table QD Singulair 10 MG 10 MG t} 10 MG Triamcinolo Triamcinolo No Triamcinol ne ne one Acetonide Acetonide Acetonide 0.1 % 0.1 % 0.1 % rOPINIRole rOPINIRole No rOPINIRole HCl 1 MG HCl 1 MG HCl 1 MG Lidocaine 5 Lidocaine 5 No 1{appli TID Lidocaine % % cation_ 5 % as_need ed} DULoxetine DULoxetine No BID DULoxetine HCl 60 MG HCl 60 MG HCl 60 MG Neurontin Neurontin No 1{table TID Neurontin 600 MG 600 MG t} 600 MG [place] 3 [place] 3 No [place] 3 HYDROmorpho HYDROmorpho No 1{table HYDROmorph ne HCl 4 MG ne HCl 4 MG t_as_ne one HCl 4 eded} MG traZODone traZODone No 1{table QD traZODone HCl 150 MG HCl 150 MG t_at_be HCl 150 MG dtime} Aspirin Aspirin No Aspirin Methocarbam Methocarbam No 1{table Methocarba ol 750 MG ol 750 MG t} mol 750 MG Ferrous Ferrous No 1{table QD Ferrous Sulfate 324 Sulfate 324 t} Sulfate MG MG 324 MG Potassium Potassium No 1{table QD Potassium Chloride ER Chloride ER t_with_ Chloride 20 MEQ 20 MEQ food} ER 20 MEQ Spironolact Spironolact No 1{table QD Spironolac one 25 MG one 25 MG t} tone 25 MG Nystatin Nystatin No Nystatin [id number] UNIT/GM UNIT/GM UNIT/GM Metoprolol Metoprolol No Metoprolol Succinate Succinate Succinate ER 25 MG ER 25 MG ER 25 MG DULoxetine DULoxetine No 1{capsu BID DULoxetine HCl 60 MG HCl 60 MG le} HCl 60 MG CoQ-10 CoQ-10 No CoQ-10 Famotidine Famotidine No 1{table QD Famotidine 20 MG 20 MG t_at_be 20 MG dtime} Breo Breo No 1{puff} QD Breo Ellipta Ellipta Ellipta 200-25 200-25 200-25 MCG/INH MCG/INH MCG/INH Albuterol Albuterol No 2{puffs Albuterol Sulfate HFA Sulfate HFA _as_nee Sulfate 108 (90 108 (90 ded} HFA 108 Base) Base) (90 Base) MCG/ACT MCG/ACT MCG/ACT Omeprazole Omeprazole No Omeprazole 40 MG 40 MG 40 MG CoQ-10 CoQ-10 No CoQ-10 rOPINIRole rOPINIRole No rOPINIRole HCl 1 MG HCl 1 MG HCl 1 MG Allopurinol Allopurinol No QD Allopurino 300 MG 300 MG l 300 MG Ferrous Ferrous No 1{table QD Ferrous Sulfate 324 Sulfate 324 t} Sulfate MG MG 324 MG metOLazone metOLazone No QD metOLazone 2.5 MG 2.5 MG 2.5 MG Lipitor 10 Lipitor 10 No 1{table QD Lipitor 10 MG MG t} MG Aspirin Aspirin No Aspirin Folic Acid Folic Acid No Folic Acid 1 MG 1 MG 1 MG [place] 3 [place] 3 No [place] 3 Immunizations Ordered Filled Immunization Date Status Comments [facility] e Immunization Name Name SARS-COV-2 COVID-19 2021-08-13 Completed [facility]/J&J VACCINE 00:00:00 [facility] SARS-COV-2 COVID-19 2021-08-13 Completed [facility] of VERA/J&J VACCINE 00:00:00 [facility] SARS-COV-2 COVID-19 2021-08-13 Completed [facility] of VERA/J&J VACCINE 00:00:00 [facility] SARS-COV-2 COVID-19 2021-08-13 Completed [facility] of VERA/J&J VACCINE 00:00:00 [facility] SARS-COV-2 COVID-19 2021-08-13 Completed [facility] of VERA/J&J VACCINE 00:00:00 [facility] SARS-COV-2 COVID-19 2021-08-13 Completed [facility] of VERA/J&J VACCINE 00:00:00 [facility] SARS-COV-2 COVID-19 2021-08-13 Completed [facility] of VERA/J&J VACCINE 00:00:00 [facility] SARS-COV-2 COVID-19 2021-08-13 Completed [facility] of VERA/J&J VACCINE 00:00:00 [facility] SARS-COV-2 COVID-19 2021-08-13 Completed [facility] of VERA/J&J VACCINE 00:00:00 [facility] SARS-COV-2 COVID-19 2021-08-13 Completed [facility] of VERA/J&J VACCINE 00:00:00 [facility] COVID-19 Vaccine COVID-19 Vaccine 2020-11-14 [facility] ([facility] 15:55:00 [facility] COVID-19 Vaccine COVID-19 Vaccine 2020-11-14 Completed [facility] (Vera[facility] (Vera) 15:55:00 [facility] COVID-19 Vaccine COVID-19 Vaccine 2020-11-14 Completed [facility] (Vera) (Vera) 15:55:00 [facility] COVID-19 Vaccine COVID-19 Vaccine 2020-11-14 Completed [facility] (Vera) (Vera) 15:55:00 [facility] COVID-19 Vaccine COVID-19 Vaccine 2020-11-14 Completed [facility] (Vera) (Vera) 15:55:00 [facility] COVID-19 Vaccine COVID-19 Vaccine 2020-11-14 Completed [facility] (Vera) (Vera) 15:55:00 [facility] COVID-19 Vaccine COVID-19 Vaccine 2020-11-14 Completed [facility] (Vera) (Vera) 15:55:00 [facility] COVID-19 Vaccine COVID-19 Vaccine 2020-11-14 Completed [facility] (Vera) (Vera) 15:55:00 [facility] COVID-19 Vaccine COVID-19 Vaccine 2020-11-14 Completed [facility] (Vera) (Vera) 15:55:00 [facility] COVID-19 Vaccine COVID-19 Vaccine 2020-11-14 Completed [facility] (Vera) (Vera) 15:55:00 [facility] COVID-19 Vaccine COVID-19 Vaccine 2020-11-14 Completed [facility] (Vera) (Vera) 15:55:00 [facility] COVID-19 Vaccine COVID-19 Vaccine 2020-11-14 Completed [facility] (Vera) (Vera) 15:55:00 [facility] COVID-19 Vaccine COVID-19 Vaccine 2020-11-14 Completed [facility] (Vera) (Vera) 15:55:00 [facility] COVID-19 Vaccine COVID-19 Vaccine 2020-11-14 Completed [facility] (Vera) (Vera) 15:55:00 [facility] COVID-19 Vaccine COVID-19 Vaccine 2020-11-14 Completed [facility] - (Vera) (Vera) 15:55:00 [facility] SARS-COV-2 COVID-19 2020-11-14 Completed [facility] of VERA/J&J VACCINE 00:00:00 [facility] SARS-COV-2 COVID-19 2020-11-14 Completed [facility] of VERA/J&J VACCINE 00:00:00 [facility] SARS-COV-2 COVID-19 2020-11-14 Completed [facility] of VERA/J&J VACCINE 00:00:00 [facility] SARS-COV-2 COVID-19 2020-11-14 Completed [facility] of VERA/J&J VACCINE 00:00:00 [facility] SARS-COV-2 COVID-19 2020-11-14 Completed [facility] of VERA/J&J VACCINE 00:00:00 [facility] SARS-COV-2 COVID-19 2020-11-14 Completed [facility] of VERA/J&J VACCINE 00:00:00 [facility] SARS-COV-2 COVID-19 2020-11-14 Completed [facility] of VERA/J&J VACCINE 00:00:00 [facility] SARS-COV-2 COVID-19 2020-11-14 Completed [facility] of VERA/J&J VACCINE 00:00:00 [facility] SARS-COV-2 COVID-19 2020-11-14 Completed [facility] of VERA/J&J VACCINE 00:00:00 [facility] SARS-COV-2 COVID-19 2020-11-14 Completed [facility] of VERA/J&J VACCINE 00:00:00 [facility] Influenza High Dose 2020-07-09 Completed [facility] [place] 00:00:00 [facility] Influenza High Dose 2020-07-09 Completed [facility] [place] 00:00:00 [facility] Influenza High Dose 2020-07-09 Completed [facility] [place] 00:00:00 [facility] Influenza High Dose 2020-07-09 Completed [facility] [place] 00:00:00 [facility] Influenza High Dose 2020-07-09 Completed [facility] [place] 00:00:00 [facility] Influenza High Dose 2020-07-09 Completed [facility] [place] 00:00:00 [facility] Influenza High Dose 2020-07-09 Completed [facility] [place] 00:00:00 [facility] Influenza High Dose 2020-07-09 Completed [facility] [place] 00:00:00 [facility] Influenza High Dose 2020-07-09 Completed [facility] [place] 00:00:00 [facility] Influenza High Dose 2020-07-09 Completed [facility] 00:00:00 [facility] Influenza High Dose 2020-07-09 Completed [facility] [place] 00:00:00 [facility] Influenza High Dose 2018-05-10 Completed [facility]ive [facility]ity of 00:00:00 [facility] Influenza High Dose 2018-05-10 Completed [facility]ity of 00:00:00 [facility] Influenza High Dose 2018-05-10 Completed [facility]ive [facility]ity of 00:00:00 [facility] Influenza High Dose 2018-05-10 Completed [facility]ive rsity of 00:00:00 [facility] Influenza High Dose 2018-05-10 Completed [facility]ive rsity of 00:00:00 [facility] Influenza High Dose 2018-05-10 Completed [facility]ive rsity of 00:00:00 [facility] Influenza High Dose 2018-05-10 Completed [facility]ive [facility]ity of 00:00:00 [facility] Influenza High Dose 2018-05-10 Completed Unive rsity of 00:00:00 [facility] Influenza High Dose 2018-05-10 Completed [facility]ive [facility]ity of 00:00:00 [facility] Influenza High Dose 2018-05-10 Completed [facility]ity of 00:00:00 [facility] Influenza High Dose 2018-05-10 Completed [facility]ive [facility]ity of 00:00:00 [facility] influenza virus 2016-04-02 Completed [facility], 14:11:00 inactivated influenza virus 2016-04-02 Completed [facility] vaccine, 14:11:00 inactivated influenza virus 2016-04-02 [facility] inactivated Vital Signs Vital Name Observation Time Observation Value Comments Source height 2022-08-02 09:00:00 62 [in_i] [facility] [place] weight 2022-08-02 09:00:00 240 [lb_av] [facility] temperature 2022-08-02 09:00:00 97.9 [degF] [facility] bmi 2022-08-02 09:00:00 43.89 kg/m2 [facility] blood pressure 2022-08-02 09:00:00 137 mm[Hg] [facility] - systolic [facility] blood pressure 2022-08-02 09:00:00 75 mm[Hg] [facility] diastolic [facility] Systolic blood 2022-05-30 21:41:00 127 mm[Hg] Univer sity of pressure [facility] Diastolic blood 2022-05-30 21:41:00 50 mm[Hg] Unive rsity of pressure [facility] Heart rate 2022-05-30 21:41:00 92 /min [facility] Body temperature 2022-05-30 21:41:00 36.56 C[facility] 2022-05-30 21:41:00 16 /min [facility] Body weight 2022-05-30 21:41:00 110.406 kg [facility] BMI 2022-05-30 21:41:00 41.78 kg/m2 [facility] Oxygen saturation in 2022-05-30 21:41:00 96 /min [facility] Arterial blood by [facility] Pulse oximetry Branch height 2022-05-24 16:30:00 62 [in_i] [facility] weight 2022-05-24 16:30:00 243.6 [lb_av] Common [facility] temperature 2022-05-24 16:30:00 96.0 [degF] Common [facility] bmi 2022-05-24 16:30:00 44.55 kg/m2 [facility] oximetry 2022-05-24 16:30:00 97 % Common [facility] respiratory rate 2022-05-24 16:30:00 17 /min Comm on [facility] blood pressure 2022-05-24 16:30:00 137 mm[Hg] Common [facility] - systolic [facility] blood pressure 2022-05-24 16:30:00 75 mm[Hg] Common [facility] diastolic [facility] Systolic blood 2022-05-18 04:08:00 137 mm[Hg] Univer sity of [facility] Diastolic blood 2022-05-18 04:08:00 78 mm[Hg] Unive rsity of [facility] Heart rate 2022-05-18 04:08:00 100 /min [facility] Body temperature 2022-05-18 04:08:00 36.11 [facility] rate 2022-05-18 04:08:00 20 /min [facility] O[facility] in 2022-05-18 04:08:00 96 /min [facility] Arterial blood by [facility] Pulse oximetry Branch Body height 2022-05-17 23:37:00 162.6 cm [facility] Body weight 2022-05-17 23:37:00 [facility]863 [facility] 2022-05-17 23:37:00 41.20 kg/m2 [facility] height 2022-02-21 13:40:00 62 [in_i] [facility] [place] weight 2022-02-21 13:40:00 238 [lb_av] [facility] temperature 2022-02-21 13:40:00 98.3 [degF] [facility] bmi 2022-02-21 13:40:00 43.53 kg/m2 [facility] - [facility] blood pressure 2022-02-21 13:40:00 117 mm[Hg] [facility] - systolic [facility] blood pressure 2022-02-21 13:40:00 55 mm[Hg] [facility] - diastolic [facility] height 2022-02-21 13:00:00 62 [in_i] [facility] weight 2022-02-21 13:00:00 238 [lb_av] Common [facility] temperature 2022-02-21 13:00:00 98.3 [degF] [facility] bmi 2022-02-21 13:00:00 43.53 kg/m2 [facility] blood pressure 2022-02-21 13:00:00 117 mm[Hg] [facility] - systolic [facility] blood pressure 2022-02-21 13:00:00 55 mm[Hg] [facility] - diastolic [facility] height 2022-01-27 09:40:00 62 [in_i] [facility] weight 2022-01-27 09:40:00 232.0 [lb_av] Common [facility] temperature 2022-01-27 09:40:00 98.6 [degF] Common [facility] bmi 2022-01-27 09:40:00 42.43 kg/m2 [facility] Systolic blood 2022-01-24 20:40:00 107 mm[Hg] Univer [facility]ity of [facility] Diastolic blood 2022-01-24 20:40:00 46 mm[Hg] Unive rsity of [facility] Heart rate 2022-01-24 20:40:00 95 /min [facility] Body temperature 2022-01-24 20:40:00 36.72 [facility] 2022-01-24 20:40:00 16 /min [facility] Body weight 2022-01-24 20:40:00 109.362 kg Universi ty [facility] BMI 2022-01-24 20:40:00 41.38 kg/m2 [facility] Oxygen saturation in 2022-01-24 20:40:00 91 /min [facility] Arterial blood by [facility] Pulse oximetry Branch height 2021-04-30 15:20:00 62 [in_i] [facility] weight 2021-04-30 15:20:00 232.0 [lb_av] Common [facility] temperature 2021-04-30 15:20:00 97.0 [degF] [facility] [place] bmi 2021-04-30 15:20:00 42.43 kg/m2 [facility] [place] oximetry 2021-04-30 15:20:00 92 % [facility] respiratory rate 2021-04-30 15:20:00 18 /min [facility] on [facility] blood pressure 2021-04-30 15:20:00 110 mm[Hg] [facility] - systolic [facility] blood pressure 2021-04-30 15:20:00 70 mm[Hg] Common [facility] - diastolic [facility] height 2021-03-11 15:10:00 62 [in_i] [facility] [place] weight 2021-03-11 15:10:00 220 [lb_av] Common [facility] temperature 2021-03-11 15:10:00 98.6 [degF] Common [facility] bmi 2021-03-11 15:10:00 40.23 kg/m2 [facility] [place] blood pressure 2021-03-11 15:10:00 136 mm[Hg] Common [facility] - systolic [facility] blood pressure 2021-03-11 15:10:00 71 mm[Hg] [facility] - diastolic [facility] height 2020-11-24 10:00:00 62 [in_i] [facility] weight 2020-11-24 10:00:00 226.4 [lb_av] [facility] temperature 2020-11-24 10:00:00 97.0 [degF] Common [facility] bmi 2020-11-24 10:00:00 41.4 kg/m2 [facility] [place] oximetry 2020-11-24 10:00:00 95 % Common [facility] respiratory rate 2020-11-24 10:00:00 18 /min Comm on [facility] blood pressure 2020-11-24 10:00:00 135 mm[Hg] Common [facility] - systolic [facility] blood pressure 2020-11-24 10:00:00 60 mm[Hg] [facility] - diastolic [facility] height 2020-10-19 11:00:00 62 [in_i] [facility] weight 2020-10-19 11:00:00 223 [lb_av] Common [facility] temperature 2020-10-19 11:00:00 98.6 [degF] [facility] bmi 2020-10-19 11:00:00 40.78 kg/m2 [facility] blood pressure 2020-10-19 11:00:00 113 mm[Hg] [facility] - systolic [facility] blood pressure 2020-10-19 11:00:00 78 mm[Hg] [facility] - diastolic [facility] height 2020-09-17 09:20:00 62 [in_i] Common S [facility] weight 2020-09-17 09:20:00 245.0 [lb_av] Common [facility] temperature 2020-09-17 09:20:00 97.2 [degF] [facility] bmi 2020-09-17 09:20:00 44.81 kg/m2 [facility] oximetry 2020-09-17 09:20:00 97 % Common [facility] respiratory rate 2020-09-17 09:20:00 19 /min Comm on [facility] blood pressure 2020-09-17 09:20:00 135 mm[Hg] Common [facility] - systolic [facility] blood pressure 2020-09-17 09:20:00 77 mm[Hg] Common [facility] - diastolic [facility] height 2020-05-07 14:30:00 62 [in_i] [facility] weight 2020-05-07 14:30:00 245 [lb_av] [facility] temperature 2020-05-07 14:30:00 97.9 [degF] [facility] bmi 2020-05-07 14:30:00 44.81 kg/m2 [facility] Systolic (mm Hg) 2016-04-06 18:00:00 Manjinder rial Alexander Diastolic (mm Hg) 2016-04-06 18:00:00 Mem orial Alexander Respitory Rate 2016-04-06 18:00:00 Memori al Eliot Respitory Rate 2016-04-06 17:00:00 Memori al Alexander Systolic (mm Hg) 2016-04-06 17:00:00 Manjinder rial Eliot Diastolic (mm Hg) 2016-04-06 17:00:00 Mem orial Eliot Respitory Rate 2016-04-06 16:00:00 Memori al Alexander Systolic (mm Hg) 2016-04-06 16:00:00 Manjinder rial Eliot Diastolic (mm Hg) 2016-04-06 16:00:00 Mem orial Eliot Temperature Oral (F) 2016-04-06 13:11:00 98.0 F [facility] Temperature Oral (F) 2016-04-06 08:00:00 98.1 F [facility] Temperature Oral (F) 2016-04-06 04:00:00 97.9 F [facility] Heart Rate 2016-04-04 20:00:00 [facility] Heart Rate 2016-04-04 17:35:00 [facility] Heart Rate 2016-04-04 12:58:00 [facility] Weight 2016-04-01 23:43:00 [facility] Height 2016-04-01 11:16:00 157.48 cm [facility] BMI Calculated 2016-04-01 11:16:00 [facility] Weight 2016-04-01 11:16:00 [facility] Weight 2016-03-28 20:53:00 [facility] BMI Calculated 2016-03-28 20:53:00 [facility] sweet [facility] Height 2016-03-28 20:53:00 157.48 cm [facility] Procedures Procedure Date / Time Performing Clinician Source Performed CONSENT/REFUSAL FOR 2022-05-30 21:10:29 Doctor Unassigned, [facility] DIAGNOSIS AND TREATMENT [place] [facility] URINALYSIS 2022-05-18 02:10:00 Shaan Mondragon [facility] BLOOD CULTURE SCREEN 2022-05-18 00:34:00 Shaan Mondragon [facility] BLOOD CULTURE SCREEN 2022-05-18 00:30:00 Shaan Mondragon [facility] COMP. METABOLIC PANEL 2022-05-18 00:30:00 Shaan Mondragon [facility] ([id number]) [facility] CBC WITH DIFF 2022-05-18 00:30:00 Shaan Mondragon Corina [facility] LACTIC ACID WHOLE BLOOD 2022-05-18 00:30:00 Shaan Mondragon [facility] XR TIBIA FIBULA 2 VW LEFT 2022-05-18 00:25:17 [facility] FOR 2022-05-17 23:21:05 Doctor Unassigned, [facility] DIAGNOSIS AND TREATMENT [place] [facility] [id number] 2020-09-28 00:00:00 MATVA.01 [facility] Laminectomy with spinal 2016-04-01 05:00:00 Manjinder rial Alexander fusion Cervical spinal fusion [facility] Gallbladder operation [facility] ermann Laparoscopic adjustable [facility] gastric banding Operation [facility] Shoulder joint operations [facility] Tonsillectomy [facility] Vein reconstruction [facility] Plan of Care Planned Activity Planned Date Details Comments Source Future Scheduled 2021-04-02 Depression [facility]00 (procedure) [code = Medical Branch 345877116] Future Scheduled 2009 Medicare Annual Universi [facility] Test 00:00:00 Wellness Visit Medical [facility] (procedure) [code = 867343795745668] Future Scheduled 2009 Screening for [facility] Test 00:00:00 osteoporosis Medical Branch (procedure) [code = 634514655] Future Scheduled 2009 PNEUMOCOCCAL VACCINES [facility] 00:00:00 65+ (1 of 1 - PPSV23) Medica l Branch [code = PNEUMOCOCCAL VACCINES 65+ (1 of 1 - PPSV23)] Future Scheduled 1999 Screening for [facility] Test 00:00:00 malignant neoplasm of Medica l Branch lung (procedure) [code = 871489295] Future Scheduled 1994 Zoster Recombinant Unive [facility] Test 00:00:00 Vaccine (SHINGRIX) (1 Medica l Branch of 2) [code = Zoster Recombinant Vaccine (SHINGRIX) (1 of 2)] Future Scheduled 1963 DTaP,Tdap,and Td [facility] 00:[facility]:00 Vaccines (1 - Tdap) Medical Branch [code = DTaP,Tdap,and Td Vaccines (1 - Tdap)] Future Scheduled 1962 Hepatitis C screening [facility] 00:00:00 (procedure) [code = Medical Branch [id number]] Future Scheduled 1960 SARS-CoV-2 (COVID-19) [facility] 00:00:00 Vaccine (1) [code = Medical Branch SARS-CoV-2 (COVID-19) Vaccine (1)] Encounters Start End Encounter Admission Attending Care Care Encounter Source Date/Time Date/Time Type Type Clinicians Facility Department ID 2022-08-02 Outpatient Pacheco, [facility] [id number] Common 11:04:01 [facility] 27934 [facility] 2022-07-19 Outpatient Pacheco, [facility] [id number] Common 07:40:00 [facility] 32976 [facility] 2021-07-28 [facility] Common 13:47:50 Tyree [id number] [facility] 2021-07-28 Outpatient Pacheco, [facility] Common 13:28:22 Tyree 74572 [facility] 2021-07-28 Outpatient Pacheco, [facility] Common 13:19:50 Tyree 97453 [facility] 2021-07-28 Outpatient Pacheco, [facility] Common 13:06:37 Tyree 95895 [facility] 2021-07-28 Outpatient Pacheco, [facility] Common 12:53:45 Tyree 01362 [facility] 2021-07-28 [facility], [facility] Common 12:53:04 Tyree 91894 [facility] 2021-07-28 Outpatient Pacheco, [facility] Common 12:42:16 Tyree 52523 [facility] 2021-07-28 Outpatient Pacheco, [facility] Common 12:41:36 Tyree 92172 [facility] 2021-07-28 Outpatient Pacheco, [facility] Common 12:02:11 Tyree 60998 [facility] 2021-07-28 Outpatient Pacheco, [facility] Common 11:35:17 Tyree 46374 [facility] 2021-07-28 Outpatient Pacheco, [facility] Common 11:26:08 Tyree 67532 [facility] 2021-07-28 Outpatient Pacheco, [facility] Common 11:25:35 Tyree 97079 [facility] 2021-07-28 Outpatient Pacheco, [facility] Common 11:20:54 Tyree 43960 [facility] 2021-07-28 Outpatient Pacheco, STLMLC ST[facility]C [id number] Common 11:16:31 [facility] 05183 [facility] 2022-08-02 2022-08-02 [facility]ICE [facility] [id number] Co mmon 00:00:00 00:00:00 VISIT NEW Shayan it PT LEVEL 4 - [facility] 2022-07-15 2022-07-15 Outpatient Flores_A VFP VFP [id number] 1-20 [facility] 00:00:00 00:00:00 [id number] Family Practic e 2022-07-13 2022-07-13 [facility] [id number] Univers 15:00:00 15:00:00 LAYLA maravilla o f [facility] 2022-07-13 2022-07-13 (TEL) [facility] [id number] Co mmon 00:00:00 00:00:00 [facility] 2022-07-11 2022-07-11 [facility] 1.2.840.114 [id number] Univers 00:00:00 00:00:00 Layla BALLESTEROS 350.1.13.10 [facility] [place] [phone] Sc dical NAL [address] [place] [address] 2022-05-30 2022-05-30 Outpatient Mer[facility] [id number] Univers 15:20:00 16:08:25 LAYLA maravilla o kole [facility] 2022-05-30 2022-05-30 [facility] 1.2.840.114 [id number] Univers 15:20:00 16:08:25 Visit Layla BALLESTEROS 350.1.13.10 [facility] 4.[place] [phone] Sc dical NAL 9 [facility] 2022-05-30 2022-05-30 Orders Doctor PORTER 1.2.840.114 [id number] Univers 00:00:00 00:00:00 Only Unassigned, YING 350.1.13.10 ity of [place] [facility] 4.2.7.2.686 Tanner as [phone] [facility] 009 Branch 2022-05-24 2022-05-24 [facility] [id number] Co mmon 00:00:00 00:00:00 VISIT Spirit ESTAB PT - CHI LEVEL 4 [facility] 2022-05-17 2022-05-17 Emergency X Shaan MONDRAGON [facility] ERT [id number] Univers 17:47:00 22:10:00 ity of [facility] 2022-05-17 2022-05-17 Emergency Shaan Mondragon [facility] 1.2.840.114 [id number] Univers 17:47:00 22:10:00 Corina BALLESTEROS 350.1.13.10 i [facility] 4.2.7.2.686 [facility] [phone] [facility] 084 Branch 2022-05-17 2022-05-17 (TEL) [facility] [id number] Co mmon 00:00:00 00:00:00 Spirit - CHI [facility] 2022-04-12 2022-04-12 Cruzito [facility] 1.2.840.114 [id number] Univers 00:00:00 00:00:00 Layla BALLESTEROS 350.1.13.10 ity [facility] 4.2.7.2.686 [facility] [phone] [place] 635[place] [facility] 2022-02-21 2022-02-21 (TEL) [facility] [id number] Co mmon 00:00:00 00:00:00 Spirit - CHI [facility] 2022-02-21 2022-02-21 SUB ANNUAL [facility] [id number] Common 00:00:00 00:00:00 MCR Spirit WELLNESS - CHI VISIT [facility] 2022-02-21 2022-02-21 [facility]ICE [facility] [id number] Co mmon 00:00:00 00:00:00 VISIT Spirit ESTAB PT - CHI LEVEL 4 [facility] 2022-02-18 2022-02-18 [facility] 1.2.840.114 [id number] Univers 00:00:00 00:00:00 Layla BALLESTEROS 350.1.13.10 ity of [place] [phone] Sc dical NAL 059 [facility] 2022-02-10 2022-02-10 (TEL) STLMLC STLMLC [id number] Co mmon 00:00:00 00:00:00 [facility] 2022-02-09 2022-02-09 Refill Maksim [facility] 1.2.840.114 [id number] Univers 00:00:00 00:00:00 Layla BALLESTEROS 350.1.13.10 it[facility] 4.[place] [phone] Sc dical NAL 059 [facility] 2022-02-09 2022-02-09 (TEL) STLMLC STLMLC [id number] Co mmon 00:00:00 00:00:00 [facility] 2022-02-09 2022-02-09 (TEL) STLMLC STLMLC [id number] Co mmon 00:00:00 00:00:00 [facility] 2022-01-27 2022-01-27 OFFICE STLMLC STLMLC [id number] Co mmon 00:00:00 00:00:00 VISIT EST Spir it PT LEVEL 3 [facility] 2022-01-26 2022-01-26 (TEL) STLMLC STLMLC [id number] Co mmon 00:00:00 00:00:00 [facility] 2022-01-24 2022-01-24 Data Network Architect 2, Adc Lab [facility] 1.2.840.114 [id number] Univers 16:15:00 16:30:00 Visit Layla Bianchi 350.1.13.10 it[facility] 4.2.[place] [phone] Sc dical NAL 353 [facility] 2022-01-24 2022-01-24 Outpatient R MAKSIM [facility] [id number] Univers 16:15:00 16:15:00 LAYLA montenegroy o f [facility] 2022-01-242022-01-24 Outpatient R MAKSIM, [facility] [id number] Univers 15:20:00 15:52:53 LAYLA maravilla o kole [facility] 2022-01-24 2022-01-24 Office [facility] 1.2.840.114 [id number] Univers 15:20:00 15:52:53 Visit Layla BALLESTEROS 350.1.13.10 it[place] of [place] [phone] Sc dical NAL [address] [place] [address] 2022-01-24 2022-01-24 Outpatient R MAKSIM, [facility] [id number] Univers 15:20:00 15:20:00 LAYLA maravilla o kole [facility] 2022-01-24 2022-01-24 Outpatient R MAKSIM, [facility] [id number] Univers 15:20:00 15:20:00 ANGELITAMOY taiwo o kole [facility] 2021-12-13 2021-12-13 Telephone [facility] 1.2.097.391 [id number] Univers 00:00:00 00:00:00 Layla BALLESTEROS 350.1.13.10 ity of [place] [phone] Sc dical NAL 059 [facility] 2021-11-16 2021-11-16 Letter [facility] 1.2.840.114 [id number] Univers 00:00:00 00:00:00 (Out) Marissa C [place] 350.1.13.10 i ty [place].2.[place] [phone] Sc dical NAL [address] [place] [address] 2021-11-16 2021-11-16 Letter [facility] 1.2.840.114 [id number] Univers 00:00:00 00:00:00 (Out) Marissa C [place] 350.1.13.10 i ty of [place].2.[place] [phone] Sc dical NAL [address] [place] [address] 2021-11-11 2021-11-11 Office Bertrand [facility] 1.2.840.114 [id number] Univers 15:00:00 15:48:22 Visit Cosmo BALLESTEROS 350.1.13.10 i ty of [place] 4[place].7.2.[place] [phone] Sc dical NAL 085 [facility] 2021-11-11 2021-11-11 Outpatient R PABLO DEGhulam [facility] 10 [id number] Univers 15:00:00 15:48:22 COSMO DE i ty [facility] 2021-11-11 2021-11-11 Outpatient R RADHA DEDEGhulam [facility] 10 [id number] Univers 15:00:00 15:00:00 COSMO DE i ty [facility] 2021-11-03 2021-11-03 Data Network Architect Keegan, [facility] Lab Main [facility] 1.2.8 40.114 [id number] Univers 16:15:00 16:30:00 Visit Layla Bianchi 350.1.13.10 ity of [place] 4[place]2.7.2.[place] [phone] Sc jose MARICRUZ 353 [facility] 2021-11-03 2021-11-03 Outpatient R MAKSIM [facility] [id number] Univers 16:15:00 16:15:00 LAYLA maravilla o f [facility] 2021-11-03 2021-11-03 Orders Doctor GERMAN 1.2.840.114 [id number] Univers 00:00:00 00:00:00 Only Unassigned, YING 350.1.13.10 [facility] 4.2.7.2.686 Tannre as [phone] [address] 2021-11-02 2021-11-02 Ancillary Therapist, [facility] Pulmonary [facility] 1.2.840.114 [id number] Univers 15:00:00 16:00:00 Visit Masoud Santana 350.1.13. 10 ity of [place] 4[place].7.2.[place] [phone] Sc dical NAL 296 [facility] 2021-11-02 2021-11-02 Ancillary Therapist, [facility] Pulmonary [facility] 1.2.840.114 [id number] Univers 15:00:00 16:00:00 Visit SantanaMasoud frobes FAVIAN 350.1.13. 10 ity of [place].7.2.[place] [id number] [address] 2021-11-02 2021-11-02 Outpatient R HECTOR [facility] [id number] Univers 15:00:00 15:00:00 MASOUD maravilla [facility] 2021-11-02 2021-11-02 Outpatient R HECTOR [facility] [id number] Univers 15:00:00 15:00:00 MASOUD gomez [facility] 2021-10-28 2021-10-28 Ancillary Therapist, [facility] Pulmonary [facility] 1.2.840.114 [id number] Univers 15:00:00 16:00:00 Visit SantanaMasoud frausto FAVIAN 350.1.13. 10 ity [facility] 4.2.7.2.[place] [phone] [address] 2021-10-28 2021-10-28 [facility] [id number] Univers 15:00:00 15:00:00 MASOUD maravilla [facility] 2021-10-26 2021-10-26 Ancillary Therapist, [facility] Pulmonary [facility] 1.2.840.114 [id number] Univers 15:00:00 16:00:00 Visit Hector Masoud Soila BALLESTEROS 350.1.13. 10 ity [facility] 4.2.7.2.[place] [phone] [address] 2021-10-26 2021-10-26 Out[facility] [id number] Univers 15:00:00 15:00:00 MASOUD gomez [facility] 2021-10-25 2021-10-25 [facility] [id number] Univers 15:00:00 15:41:05 LAYLA sharif [facility] 2021-10-25 2021-10-25 Office [facility] 1.2.840.114 [id number] Univers 15:00:00 15:41:05 Visit Layla BALLESTEROS 350.1.13.10 ity [facility] 4.2.7.2.[place] [phone] Sc dical NAL 059 [facility] 2021-10-25 2021-10-25 Outpatient R MAKSIM [facility] [id number] Univers 15:00:00 15:00:00 LAYLA maravilla o f [facility] 2021-10-22 2021-10-25 Ancillary Therapist, Adc Pulmonary [facility] 1..840.114 [id number] Univers 15:00:00 10:35:34 Visit Masoud Santana 350.1.13. 10 ity of [place].2.[place] [phone] Sc dical [facility] 296 [facility] 2021-10-22 2021-10-25 Outpatient R HECTOR [facility] [id number] Univers 15:00:00 10:35:34 [facility] 2021-10-22 2021-10-22 Outpatient [facility] [id number] Univers 15:00:00 15:00:00 [facility] 2021-10-22 2021-10-22 Outpatient [facility] [id number] Univers 15:00:00 15:00:00 [facility] 2021-10-22 2021-10-22 Orders Doctor PORTER 1..840.114 [id number] Univers 00:00:00 00:00:00 Only Unassigned, YING 350.1.13.10 ity of [place] [facility] 4.2.7.2.686 Tanner as [phone] [address] 2021-10-21 2021-10-21 Ancillary Therapist, Adc Pulmonary [facility] 1.2.840.114 [id number] Univers 15:00:00 16:00:00 Visit Masoud Santana 350.1.13. 10 it[facility] 4.2.7.2.[place] [phone] Sc dical [address] 2021-10-21 2021-10-21 Outpatient R HECTOR [facility] [id number] Univers 15:00:00 15:00:00 MASOUD maravilla [facility] 2021-10-21 2021-10-21 Orders Doctor PORTER 1.2.840.114 [id number] Univers 00:00:00 00:00:00 Only Unassigned, YING 350.1.13.10 ity of [place] [facility] 4.2.7.2.686 Tanner as [id number] [address] 2021-10-19 2021-10-19 Orders Doctor GERMAN 1.2.840.114 [id number] Univers 00:00:00 00:00:00 Only Unassigned, YING 350.1.13.10 ity of [place] [facility] 4.2.7.2.686 Tanner as [phone] [address] 2021-10-13 2021-10-13 Orders Doctor PORTER 1.2.840.114 [id number] Univers 00:00:00 00:00:00 Only Unassigned, YING 350.1.13.10 ity of [place] [facility] 4.2.7.2.686 Tanner as [phone] [address] 2021-10-12 2021-10-12 Ancillary Therapist, Adc Pulmonary [facility] 1.2.840.114 [id number] Univers 15:00:00 16:00:00 Visit Masoud Santana 350.1.13. 10 ity of [place] [phone] Sc dic[address] 2021-10-12 2021-10-12 Outpatient Merissa SANTANA [facility] [id number] Univers 15:00:00 15:00:00 MASOUD maravilla [facility] 2021-10-08 2021-10-08 Ancillary Therapist, Adc Pulmonary [facility] 1.2.840.114 [id number] Univers 13:00:00 14:00:00 Visit Masoud Santana 350.1.13. 10 ity of [place] 4[place].2.[place] [id number] [address] 2021-10-08 2021-10-08 Outpatient R HECTOR [facility] [id number] Univers 13:00:00 13:00:00 MASOUD gomez [facility] 2021-10-08 2021-10-08 Orders Doctor GERMAN 1.2.840.114 [id number] Univers 00:00:00 00:00:00 Only Unassigned, YING 350.1.13.10 ity of [place] [facility] 4.2.7.2.686 Tanner as [phone] [address] 2021-10-05 2021-10-05 Ancillary Therapist, Adc Pulmonary [facility] 1.2.840.114 [id number] Univers 15:00:00 16:00:00 Visit Masoud Santana 350.1.13. 10 ity [facility] 4[place]2.7.2.[place] [phone] [address] 2021-10-05 2021-10-05 Outpatient R HECTOR [facility] [id number] Univers 15:00:00 15:00:00 MASOUD [facility] 2021-10-05 2021-10-05 Orders Doctor GERMAN 1.2.840.114 [id number] Univers 00:00:00 00:00:00 Only Unassigned, YING 350.1.13.10 ity of [place] [facility] 4.2.7.2.686 Tanner as [phone] [address] 2021-09-30 2021-09-30 Outpatient Merissa SANTANA [facility] [id number] Univers 15:00:00 15:00:00 MASOUD [facility] 2021-09-30 2021-09-30 [facility] 1.2.636.789 [id number] Univers 00:00:00 00:00:00 Marissa BALLESTEROS 350.1.13.10 i ty [facility] 4[place]2.7.2.[place] [phone] [address] 2021-09-29 2021-09-29 Telephone [facility] 1.2.415.982 [id number] Univers 00:00:00 00:00:00 Marissa BALLESTEROS 350.1.13.10 i ty [facility] 4.2.[place] [phone] [address] 2021-09-28 2021-09-28 Outpatient R HECTOR [facility] [id number] Univers 15:00:00 15:00:00 MASOUD gomez [facility] 2021-09-23 2021-09-23 Outpatient R HECTOR [facility] [id number] [facility] 15:00:00 16:23:10 MASOUD gomez [facility] 2021-09-23 2021-09-23 Ancillary Therapist, [facility] Pulmonary [facility] 1.2.840.114 [id number] Univers 15:00:00 16:23:10 Visit Masoud Santana 350.1.13. 10 ity [facility] 4.2.7.2.[place] [id number] [address] 2021-09-23 2021-09-23 Ancillary Therapist, [facility] Pulmonary [facility] 1.2.840.114 [id number] Univers 15:00:00 16:23:10 Visit Masoud Santana 350.1.13. 10 ity of [place] 4[place].7.2.[place] [phone] [address] 2021-09-23 2021-09-23 Outpatient R HECTOR [facility] [id number] Univers 15:00:00 16:23:10 MASOUD maravilla [facility] 2021-09-21 2021-09-22 Ancillary Therapist, [facility] Pulmonary [facility] 1.2.840.114 [id number] Univers 15:00:00 10:06:36 Visit Masoud Santana 350.1.13. 10 ity of [place] 4[place].2.[place] [phone] [address] 2021-09-21 2021-09-22 Outpatient R HECTOR [facility] [id number] Univers 15:00:00 10:06:36 MASOUD itgomez [facility] 2021-09-21 2021-09-21 Ancillary Therapist, [facility] Pulmonary [facility] 1.2.840.114 [id number] [facility] 15:00:00 16:00:00 Visit Masoud Santana 350.1.13. 10 ity [facility] 4.2.7.2.[place] [phone] Sc dical NAL 296 [facility] 2021-09-16 2021-09-16 Outpatient R [facility] [id number] [facility] 15:00:00 18:13:11 MASOUD [facility] 2021-09-16 2021-09-16 Ancillary Therapist, [facility] 1.2.840.114 [id number] [facility] 15:00:00 18:13:11 Visit Masoud Santana 350.1.13. 10 [place] [phone] Sc dical NAL 296 [facility] 2021-09-16 2021-09-16 Orders Doctor GERMAN [id number] [id number] [facility] 00:00:00 00:00:00 Only Unassigned, YING 350.1.13.10 ity of [place] [facility] 4.2.7.2.686 [place] as [phone] 59 [place] [address] 2021-09-16 2021-09-16 Telephone Jerilyn [facility] 1.2.081.451 [id number] Univers 00:00:00 00:00:00 Shimathewn FAVIAN 350.1.13.10 i [place] of [place] [phone] Sc dical NAL [address] [place] [address] 2021-09-16 2021-09-16 Telephone Jerilyn [facility] 1.2.102.135 [id number] Univers 00:00:00 00:00:00 Shimathewn FAVIAN 350.1.13.10 i [place] of [place] [phone] Sc dical NAL 085 [facility] 2021-09-14 2021-09-14 Ancillary Therapist, [facility] Pulmonary [facility] 1.2.840.114 [id number] Univers 15:00:00 16:31:27 Visit Masoud Santana 350.1.13. 10 it[facility] [place] [phone] [address] 2021-09-14 2021-09-14 [facility] [id number] Univers 15:00:00 15:00:00 MASOUD maravilla [facility] 2021-09-09 2021-09-09 Telephone [facility] 1.2.771.895 [id number] Univers 00:00:00 00:00:00 Marissa C [place] 350.1.13.10 i ty [facility] [place] [phone] [address] 2021-09-08 2021-09-08 Orders Doctor GERMAN 1.2.840.114 [id number] Univers 00:00:00 00:00:00 Only Unassigned, YING 350.1.13.10 ity of [place] [facility] 4.2.7.2.686 [place] as [phone] [address] 2021-09-07 2021-09-07 Outpatient Merissa [facility] [id number] Univers 15:00:00 17:10:59 MASOUD maravilla [facility] 2021-09-07 2021-09-07 Ancillary Therapist, [facility] Pulmonary [facility] 1.2.840.114 [id number] Univers 15:00:00 17:10:59 Visit Masoud Santana 350.1.13. 10 ity [facility] 4[place] [phone] [address] 2021-08-31 2021-08-31 Telephone [facility] 1.2.392.353 [id number] Univers 00:00:00 00:00:00 Marissa C [place] 350.1.13.10 i ty [facility] 4.[place] [phone] [address] 2021-08-30 2021-08-30 Outpatient R HECTOR [facility] [id number] Univers 13:00:00 13:21:59 MASOUD maravilla [facility] 2021-08-30 2021-08-30 Ancillary Therapist, Aaron Pulmonary [facility] 1.2.840.114 [id number] Univers 13:00:00 13:21:59 Visit Masoud Santana 350.1.13. 10 ity of [place] [phone] [address] 2021-08-30 2021-08-30 Orders Doctor GERMAN 1.2.840.114 [id number] Univers 00:00:00 00:00:00 Only Unassigned, YING 350.1.13.10 ity of [place] [facility] 4.2.7.2.686 [place] as [phone] [address] 2021-08-23 2021-08-23 Telephone [facility] 1.2.740.563 [id number] Univers 00:00:00 00:00:00 Marissa C FAVIAN 350.1.13.10 i ty of [place] [phone] [address] 2021-08-19 2021-08-19 Telephone [facility] 1.2.153.771 [id number] Univers 00:00:00 00:00:00 Marissa C FAVIAN 350.1.13.10 i ty of [place] 4[place] [phone] [address] 2021-08-13 2021-08-13 Outpatient R PHONG [facility] [id number] Univers 14:30:00 14:30:00 NARENDRA maravilla [facility] 2021-08-13 2021-08-13 Imm/Inj Nurse, Adc Pob Immunization [facility] 1.2.840.114 [id number] Univers 14:30:00 14:30:00 Visit Narendra Darling 350.1.13 .10 ity [facility] 4.2.[place] [phone] Sc dical NAL 421 [facility] 2021-08-13 2021-08-13 Outpatient R PHONG [facility] [id number] Univers 14:30:00 14:25:41 NARENDRA ity of [facility] 2021-08-13 2021-08-13 Outpatient R COSMO DE [facility] 10 [id number] Univers 13:00:00 14:15:10 COSMO DE i ty of [facility] 2021-08-13 2021-08-13 Office Bertrand [facility] 1.2.840.114 [id number] Univers 13:00:00 14:15:10 Visit Cosmo BALLESTEROS 350.1.13.10 i ty of [place] 4.[place] [phone] Sc dical NAL 085 [facility] 2021-08-04 2021-08-04 Outpatient R COSMO DE [facility] 10 [id number] Univers 09:16:54 23:59:00 COSMO DE i ty of [facility] 2021-08-04 2021-08-04 [facility] 1.2.840.114 [id number] Univers 09:16:54 23:59:00 Encounter Shiwan SPECIALTY 350.1.13.10 ity of [place].2.[place] AT [phone] Sc dontemicki LEXI [address] [place] [address] 2021-08-04 2021-08-04 [facility] 1.2.840.114 [id number] Univers 09:16:31 23:59:00 Encounter Shiwan SPECIALTY 350.1.13.10 it[place] [phone] Sc jose ELLIOTT [address] [place] [address] 2021-07-23 2021-07-23 [facility] 1.2.868.234 [id number] Univers 00:00:00 00:00:00 Cosmo [place] 350.1.13.10 i ty of [place] 4[place].2.[place] [phone] [facility] 085 [facility] 2021-06-17 2021-06-17 Data Network Architect Therapist, Adc Respiratory [facility] 1.2.840.114 [id number] Univers 14:00:00 15:30:00 Visit Masoud Santana 350.1.13. 10 [place] of [place].7.2.[place] [phone] [place] 715783 [place] 2021-06-17 2021-06-17 Outpatient R HECTOR [facility] [id number] Univers 14:00:00 14:00:00 MASOUD ity [facility] 2021-06-17 2021-06-17 Orders RADHA De 1.2.338.868 [id number] Univers 00:00:00 00:00:00 Only [facility] 350.1.13.10 i ty of [facility] 4.2.7.2.[place] [phone] [address] 2021-06-02 2021-06-02 [facility] 1.2.840.114 [id number] Univers 00:00:00 00:00:00 Layla BALLESTEROS 350.1.13.10 ity of [place] 4[place].2.[place] [phone] [place] 926809 [facility] 2021-05-21 2021-05-21 (TEL) [facility] [id number] Co mmon 00:00:00 00:00:00 [facility] 2021-05-17 2021-05-17 [facility] 1.2.840.114 [id number] Univers 00:00:00 00:00:00 Layla BALLESTEROS 350.1.13.10 ity of [place] [phone] [facility] 059 [facility] 2021-05-14 2021-05-14 [facility] 1.2.840.114 [id number] Univers 00:00:00 00:00:00 Qiamoy BALLESTEROS 350.1.13.10 ity of [facility] 4.2.7.2.[place] [phone] Sc dical NAL 059 [facility] 2021-05-14 2021-05-14 (TEL) [facility] [id number] Co mmon 00:00:00 00:00:00 Spirit - [facility] 2021-05-13 2021-05-13 Outpatient R COSMO DE [facility] 10 [id number] Univers 14:30:00 15:10:14 COSMO DE i ty of [facility] 2021-05-13 2021-05-13 Office [facility] 1.2.840.114 [id number] Univers 14:26:13 15:10:14 Visit Cosmo BALLESTEROS 350.1.13.10 i ty of [facility] 4.2.7.2.[place] [phone] Sc dical NAL 085 [facility] 2021-05-11 2021-05-11 Refill [facility] 1.2.840.114 [id number] Univers 00:00:00 00:00:00 Layla BALLESTEROS 350.1.13.10 ity of [place] 4.2.[place].2.[place] [phone] Sc dical NAL 059 [facility] 2021-04-30 2021-04-30 [facility] [id number] Co mmon 00:00:00 00:00:00 VISIT EST Spir it PT LEVEL 3 - [facility] 2021-04-26 2021-04-26 Office [facility] 1.2.840.114 [id number] Univers 15:19:51 16:02:28 Visit Swapniljeanne Ballesteros 350.1.13.10 ity of [place] 4.[place].2.[place] [phone] Sc dical nal 059 [facility] 2021-04-26 2021-04-26 Outpatient R MAKSIM [facility] [id number] Univers 15:20:00 15:20:00 LAYLA montenegroy o f [facility] 2021-04-26 2021-04-26 Orders Doctor GERMAN 1.2.840.114 [id number] Univers 00:00:00 00:00:00 Only Unassigned, YING 350.1.13.10 ity of [place] [facility] 4.2.7.2.686 [place] as [phone] [address] 2021-04-12 2021-04-12 [facility] 1.2.769.129 [id number] Univers 00:00:00 00:00:00 Qiangjun [place] 350.1.13.10 ity of [place].2.[place] [phone] Sc dical nal 9 [facility] 2021-04-07 2021-04-07 [facility] 1.2.840.114 [id number] Univers 00:00:00 00:00:00 Qiangjun [place] 350.1.13.10 ity of [place].2.[place] [phone] Sc dical nal [address] [place] [address] 2021-04-02 2021-04-02 (TEL) STLMLC STLMLC [id number] Co mmon 00:00:00 00:00:00 [facility] 2021-03-30 2021-03-30 (TEL) STLMLC STLMLC [id number] Co mmon 00:00:00 00:00:00 [facility] 2021-03-29 2021-03-29 Orders Doctor GERMAN 1.2.840.114 [id number] Univers 00:00:00 00:00:00 Only Unassigned, YING 350.1.13.10 ity of [place] [facility] 4.2.7.2.686 [place] as [phone] [address] 2021-03-24 2021-03-24 (TEL) STLMLC STLMLC [id number] Co mmon 00:00:00 00:00:00 [facility] 2021-03-17 2021-03-17 [facility] 1.2.840.114 [id number] Univers 00:00:00 00:00:00 Qiangjun [place] 350.1.13.10 [place]ick [place] 4.2.7.2.686 Mary Jane Molinaabi [phone] [address] 2021-03-11 2021-03-11 OFFICE STLMLC STLMLC [id number] Co mmon 00:00:00 00:00:00 VISIT Spirit ESTAB PT - CHI LEVEL 4 [facility] 2021-03-04 2021-03-04 Outpatient R COSMO DE [facility] 10 [id number] Univers 15:00:00 15:00:00 COSMO DE i ty [facility] 2021-02-22 2021-02-22 (TEL) STLMLC STLMLC [id number] Co mmon 00:00:00 00:00:00 [facility] 2020-12-10 2020-12-10 (TEL) STLMLC STLMLC [id number] Co mmon 00:00:00 00:00:00 [facility] 2020-12-02 2020-12-02 Outpatient R MAKSIM [facility] [id number] Univers 14:20:00 14:20:00 LAYLA taiwo o f [facility] 2020-11-26 2020-11-26 (TEL) STLMLC STLMLC [id number] Co mmon 00:00:00 00:00:00 [facility] 2020-11-24 2020-11-24 OFFICE STLMLC STLMLC [id number] Co mmon 00:00:00 00:00:00 VISIT EST Spir it PT LEVEL 3 - [facility] 2020-10-30 2020-10-30 Outpatient R COSMO DE [facility] 10 [id number] Univers 15:30:00 15:30:00 COSMO DE i ty [facility] 2020-10-19 2020-10-19 OFFICE STLMLC STLMLC [id number] Co mmon 00:00:00 00:00:00 VISIT Spirit ESTAB PT - CHI LEVEL 4 [facility] 2020-10-08 2020-10-08 Outpatient R COSMO DE [facility] 10 [id number] Univers 15:30:00 15:30:00 COSMO DE i ty [facility] 2020-10-01 2020-10-01 Inpatient OBDULIO Bender HCATO [id number] [facility] 07:00:11 07:00:11 [facility] 2020-09-30 2020-09-30 Outpatient OBDULIO BenderTO [id number] [facility] 08:16:19 08:16:19 Wilver 68 [facility] 2020-09-24 2020-09-24 Letter JoeGERMAN 1.2.840.114 [id number] 00:00:00 00:00:00 (Out) Aliyah HE 350.1.13.10 [facility] 4.2.7.2.686 [id number] [id number] 2020-09-24 2020-09-24 Telephone Maksim [facility] 1.2.233.005 [id number] 00:00:00 00:00:00 Layla Ballesteros 350.1.13.10 [place] 4.2.7.2.686 Professio [phone] nal 059 [facility] 2020-09-23 2020-09-23 Laboratory Only, [facility] 1.2.840.114 [id number] 13:54:59 14:09:59 Only Test Favian 350.1.13.10 [place] 4.2.7.2.686 [place] [phone] 353 2020-09-23 2020-09-23 Outpatient R [facility] [id number] Univers 13:45:00 13:45:00 ity of [facility] 2020-09-21 2020-09-21 (TEL) STLMLC STLMLC [id number] Co mmon 00:00:00 00:00:00 Spirit - [facility] 2020-09-17 2020-09-17 OFFICE STLMLC STLMLC [id number] Co mmon 00:00:00 00:00:00 VISIT Spirit ESTAB PT - CHI LEVEL 4 [facility] 2020-09-16 2020-09-16 Outpatient R MAKSIM [facility] [id number] [facility] 14:00:00 23:59:00 LAYLA wright kole [facility] 2020-09-16 2020-09-16 [facility] [id number] Univers 14:00:00 14:00:00 SWAPNILJEANNE taiwo wright kole [facility] 2020-09-15 2020-09-15 Orders Doctor GERMAN 1.2.840.114 [id number] 00:00:00 00:00:00 Only Unassigned, YING 350.1.13.10 [place] [facility] [phone] 009 2020-09-14 2020-09-14 Telephone [facility] 1.2.764.004 [id number] 00:00:00 00:00:00 Layla Ballesteros 350.1.13.10 [place] 4.2.7.2.686 Professio [phone] nal 9 [facility] 2020-09-14 2020-09-14 Orders Doctor GERMAN 1.2.840.114 [id number] 00:00:00 00:00:00 Only Unassigned, YING 350.1.13.10 [place] [address].2.7.2.686 [phone] 009 2020-09-10 2020-09-10 (TEL) [facility] [id number] Co mmon 00:00:00 00:00:00 [facility] 2020-09-09 2020-09-09 Outpatient YASH Atkinson LABO [id number] [facility] 18:14:00 18:14:[address] [place] [address] 2020-09-01 2020-09-01 Office [facility] 1.2.840.114 [id number] 14:21:14 15:04:24 Visit Layla Ballesteros 350.1.13.10 [place] 4.2.7.2.686 Professio [phone] nal 059 [facility] 2020-09-01 2020-09-01 Out[facility] [id number] Univers 14:20:00 14:20:00 LAYLA wright kole [facility] 2020-07-09 2020-07-09 Outpatient COSMO MONTES [facility] 10 [id number] Univers 15:20:00 15:20:00 COSMO DE i ty of [facility] 2020-06-02 2020-06-02 Outpatient R MAKSIM [facility] [id number] Univers 14:00:00 14:00:00 LAYLA moniy o f [facility] 2020-05-07 2020-05-07 OFFICE STLMLC STLMLC [id number] Co mmon 00:00:00 00:00:00 VISIT Spirit ESTAB PT - CHI LEVEL 4 [facility] 2020-04-24 2020-04-24 Outpatient R YARED HIGH [facility] [id number] Univers 13:00:00 13:00:00 ity [facility] 2020-04-13 2020-04-13 (TEL) STLMLC STLMLC [id number] Co mmon 00:00:00 00:00:00 [facility] - [facility] 2020-04-02 2020-04-02 Outpatient R COSMO DE [facility] 10 [id number] Univers 14:20:00 14:20:00 COSMO DE i ty [facility] 2020-03-16 2020-03-16 Outpatient [facility] [id number] Common 10:52:00 10:52:[address] [facility] 2020-03-13 2020-03-13 Outpatient Merissa BIANCHI [facility] [id number] Univers 16:30:00 16:30:00 LAYLA maravilla o f [facility] 2020-03-12 2020-03-12 Outpatient R [facility] [id number] Univers 16:00:00 16:00:00 ity [facility] 2020-03-06 2020-03-06 Outpatient [facility] [id number] Common 10:09:00 10:09:[address] [facility] 2020-03-05 2020-03-05 Outpatient R [facility] [id number] Univers 16:00:00 16:00:00 ity [facility] 2020-03-05 2020-03-05 Outpatient [facility] [id number] Common 11:51:00 11:51:[address] [facility] 2020-03-03 2020-03-03 Outpatient R MAKSIM, [facility] [id number] Univers 14:00:00 14:00:00 QIANGJUN ity o f [facility] 2020-02-11 2020-02-11 Outpatient R [facility] [id number] Univers 16:00:00 16:00:00 ity of [facility] 2020-02-05 2020-02-05 Outpatient [facility] [id number] Common 13:00:00 13:00:[address] [facility] 2020-02-05 2020-02-05 Outpatient [facility] [id number] Common 13:00:00 13:00:[address] [facility] 2020-01-09 2020-01-09 Outpatient [facility] [id number] Common 14:26:00 14:26:00 t [facility] 2020-01-06 2020-01-06 Outpatient [facility] [id number] Common 15:48:00 15:48:[address] [facility] 2019-12-04 2019-12-04 Outpatient [facility] [id number] Common 07:12:00 07:12:[address] [facility] 2019-12-02 2019-12-02 Outpatient R MAKSIM, [facility] [id number] Univers 15:20:00 15:20:00 QIANGJUN ity o f [facility] 2019-11-22 2019-11-22 Outpatient [facility] [id number] Common 09:19:00 09:19:[address] [facility] 2019-11-01 2019-11-01 Outpatient [facility] [id number] Common 11:46:00 11:46:[address] [facility] 2019-10-30 2019-10-30 Outpatient R MAKSIM, [facility] [id number] Univers 11:00:00 11:00:00 QIANGJUN ity o f [facility] 2019-10-29 2019-10-29 Outpatient [facility] [id number] Common 11:16:00 11:16:[address] [facility] 2019-10-18 2019-10-18 Outpatient [facility] [id number] Common 09:30:00 09:30:[address] [facility] 2019-10-17 2019-10-17 Outpatient [facility] [id number] Common 10:49:00 10:49:[address] [facility] 2019-10-04 2019-10-04 Outpatient [facility] [id number] Common 10:26:00 10:26:[address] [facility] 2019-10-03 2019-10-03 Outpatient [facility] [id number] Common 13:45:00 13:45:[address] [facility] 2019-10-02 2019-10-02 Outpatient [facility] [id number] Common 10:11:00 10:11:[address] [facility] [address] [facility] 2019-10-01 2019-10-01 Outpatient [facility] [id number] Univers 13:00:00 13:00:00 QIANGJUN ity o f [facility] 2019-09-20 2019-09-20 Outpatient [facility] [id number] Common 15:05:00 15:05:[address] [facility] 2019-09-12 2019-09-12 Outpatient [facility] [id number] Common 11:15:00 11:15:[address] [facility] 2019-09-09 2019-09-09 Outpatient Merissa [facility] [id number] Univers 15:00:00 15:00:00 QIANGJUN ity o f [facility] 2019-08-30 2019-08-30 Outpatient [facility] [id number] Common 15:13:00 15:13:[address] [facility] 2019-08-28 2019-08-28 Outpatient R [facility] [id number] Univers 14:00:00 14:00:00 QIARIKAJUN ity o f [facility] 2019-08-05 2019-08-05 Outpatient R [facility] [id number] Univers 15:52:15 23:59:00 QIANGJUN ity o f [facility] 2019-06-07 2019-06-07 Outpatient [facility] [id number] Common 15:51:00 15:51:[address] [facility] 2019-04-01 2019-04-01 Outpatient [facility] [id number] Common 15:30:00 15:30:[address] [facility] 2019-02-27 2019-02-27 Telephone [facility] 1.2.029.445 [id number] Univers 00:00:00 00:00:00 Layla Ballesteros 350.1.13.10 ity of [place] [phone] Sc dical nal 9 [facility] 2019-02-05 2019-02-05 Refill [facility] 1.2.840.114 [id number] Univers 00:00:00 00:00:00 Layla Ballesteros 350.1.13.10 ity of [place]2.7.2.[place] [phone] Sc dical nal 9 [facility] 2019-01-28 2019-01-28 Outpatient [facility] [id number] Common 13:59:00 13:59:[address] [facility] 2019-01-25 2019-01-25 Orders Doctor PORTER 1.2.840.114 [id number] Univers 00:00:00 00:00:00 Only Unassigned, YING 350.1.13.10 ity of [place] [facility] 4.2.7.2.686 [place] [phone] [place] [address] [place] 2019-01-12 2019-01-12 Outpatient [facility] [id number] Common 10:26:00 10:26:[address] [facility] 2018-12-19 2018-12-19 Outpatient [facility] [id number] Common 11:30:00 11:30:[address] [facility] 2018-11-12 2018-11-12 Outpatient [facility] [id number] Common 11:20:00 11:20:[address] [facility] 2018-09-26 2018-09-26 Outpatient [facility] [id number] Common 15:59:00 15:59:[address] [facility] 2018-08-06 2018-08-06 Outpatient [facility] [id number] Common 13:45:00 13:45:[address] [facility] 2018-04-17 2018-04-17 Outpatient [facility] [id number] Common 15:41:00 15:41:[address] [facility] [address] [facility] 2018-01-31 2018-01-31 Outpatient [facility] [id number] Common 13:15:00 13:15:[address] [facility] 2018-01-16 2018-01-16 Outpatient [facility] [id number] Common 14:00:00 14:00:[address] [facility] 2016-07-05 2016-07-06 Outpt Diag nullFlavo [facility] [id number] Memoria 19:02:00 05:59:00 Services r Outpatient 01 l Jasper Mccabe Eliot 2016-07-05 2016-07-06 Outpt Diag nullFlavo [facility] [id number] Memoria 19:02:00 05:59:00 Services r Outpatient 01 l Imaging Eliot Alexander 2016-07-05 2016-07-05 Outpatient Tung MHOIH OI [id number] 13:02:00 23:59:00 Jorge Ortiz 2016-07-05 2016-07-05 Outpatient MHIE MHIE [id number] Memoria 14:45:00 14:45:00 05 zulma Eliot 2016-07-05 2016-07-05 Outpatient MHIE MHIE [id number] Memoria 14:45:00 14:45:00 05 zulma Alexander 2016-05-16 2016-05-17 Outpt Diag nullFlavo [facility] [id number] Memoria 19:44:00 05:59:00 Services r Outpatient 00 l Imaging Eliot Eliot 2016-05-16 2016-05-17 [place] [id number] Memoria 19:44:00 05:59:00 [facility]-16 2016-05-16 Outpatient Tung MHOIH OI [id number] 13:44:00 23:59:00 Jorge Ortiz 2016-05-16 2016-05-16 Outpatient MHIE MHIE [id number] Memoria 11:30:00 11:30:00 06 zulma Alexander 2016-05-16 2016-05-16 Outpatient MHIE MHIE [id number] Memoria 11:30:00 11:30:00 06 zulma Mccabe 2016-04-14 2016-04-14 Outpatient MHIE MHIE [id number] Memoria 13:00:00 13:00:00 04 zulma Mccabe 2016-04-14 2016-04-14 Outpatient MHIE MHIE [id number] Memoria 13:00:00 13:00:00 04 [facility] 2016-04-01 2016-04-06 [facility]Flavo [facility] [id number] Memoria 10:10:00 19:48:00 r Eliot 00 l [facility] 2016-04-01 2016-04-06 Inpatient nullFlavo [facility] [id number] Memoria 10:10:00 19:48:00 r Eliot 00 [facility] 2016-04-01 2016-04-06 Outpatient Tung [facility] [id number] 05:10:00 14:48:00 Jorge 00 Angel 2016-04-01 2016-04-01 Outpatient IE CHELO [id number] Memoria 08:00:00 08:00:00 03 zulma Mccabe 2016-04-01 2016-04-01 Outpatient IE IE [id number] Memoria 08:00:00 08:00:00 03 zulma Mccabe 2016-03-31 2016-03-31 Outpatient IE IE [id number] Memoria 08:30:00 08:30:00 02 zulma Mccabe 2016-03-31 2016-03-31 Outpatient IE FABIOLA [id number] Memoria 08:30:00 08:30:00 02 zulma Mccabe 2016-03-15 2016-03-15 Outpatient CHELO CHELO [id number] Memoria 09:30:00 09:30:00 01 zulam Mccabe 2016-03-15 2016-03-15 Outpatient [facility] FABIOLA [id number] Memoria 09:30:00 09:30:00 01 zulma Mccabe Results Test Description Test Time Test Comments Results Result Comments Source CBC WITH DIFF 2022-05-18 00:57:44 Test Item Value Reference Range Interpretation Comme nts WBC (test code = 6690-2) See_Comment H [A utomated message] The system which ge nerated this result transmit james reference range: 4.30 - 1 1.10 10*3/?L. The reference r malinda was not used to interpr et this result as normal/abnor mal. RBC (test code = 789-8) See_Comment [Au tomated message] The system which ge nerated this result transmit james reference range: 3.93 - 5 .25 10*6/?L. The reference r malinda was not used to interpr et this result as normal/abnor mal. HGB (test code = 718-7) 12.9 g/dL 11.6-15.0 HCT (test code = 4544-3) 40.2 % 35.7-45.2 MCV (test code = 787-2) 93.9 fL 80.6-95.5 MCH (test code = 785-6) 30.1 pg 25.9-32.8 MCHC (test code = 786-4) 32.1 g/dL 31.6-35.1 RDW-SD (test code = 27351-8) 52.1 fL 39.0-49.9 H RDW-CV (test code = 788-0) 15.2 % 12.0-15.5 PLT (test code = 777-3) See_Comment [Au tomated message] The system which ge nerated this result transmit james reference range: 166 - 35 8 10*3/?L. The reference range was not used to interpret th is result as normal/abnormal . MPV (test code = 93213-6) 9.3 fL 9.5-12.9 L NRBC/100 WBC (test code = See_Comment [ Automated message] The [id number]) system which ge nerated this result transmit james reference range: 0.0 - 10 .0 /100 WBCs. The reference r malinda was not used to interpr et this result as normal/abnor mal. NRBC x10^3 (test code = See_Comment [Au tomated message] The [id number]) system which ge nerated this result transmit james reference range: 10*3/?L. The reference range was not u sed to interpret this result as normal/abnormal . GRAN MAT (NEUT) % (test code 79.9 % = 770-8) IMM GRAN % (test code = 0.60 % [id number]) LYMPH % (test code = 736-9) 9.9 % MONO % (test code = 5905-5) 6.6 % EOS % (test code = 713-8) 2.6 % BASO % (test code = 706-2) 0.4 % GRAN MAT x10^3(ANC) (test 12.68 10*3/uL 1.88-7.09 H code = [id number]) IMM GRAN x10^3 (test code = 0.10 10*3/uL 0.00-0.06 H [id number]) LYMPH x10^3 (test code = 1.57 10*3/uL 1.32-3.29 731-0) MONO x10^3 (test code = 1.04 10*3/uL 0.33-0.92 H 742-7) EOS x10^3 (test code = 0.41 10*3/uL 0.03-0.39 H 711-2) BASO x10^3 (test code = 0.06 10*3/uL 0.01-0.07 704-7) Lab Interpretation (test Abnormal code = 16623-2) [facility] [id number] 06:22:00 Test Item Value Reference Range Interpretation Comments SODIUM (test code = 143 mmol/L 136-145 N NA) POTASSIUM (test code = 4.7 mmol/L 3.5-5.1 N K) CHLORIDE (test code = 103.0 mmol/L 98-107 N CL) CARBON DIOXIDE (test 30.2 mmol/L 21-32 N code = CO2) GLUCOSE (test code = 157 mg/dL 70-110 H GLU) BLOOD UREA NITROGEN 33 mg/dL 7-18 H (test code = BUN) GLOMERULAR FILTRATION 46.8 >60 Unit o f measure: RATE (test code = GFR) mL/mi n/1.73 k2Czxfqxqow Range:Healthy Adults >90 mL/min/1.73 m2 For Chronic Kidney Disease: Stage II Mild Decrease i n GFR 60-90 Stage III Moderate Decrea se in GFR 30-59 St age IV Severe Decre ase in GFR 15-29 St age V Kidney Failur e <15 CREATININE (test code 1.13 mg/dL 0.55-1.30 N = CREAT) CALCIUM (test code = 8.6 mg/dL 8.2-10.1 N CA) HGB [id number] 05:57:00 Test Item Value Reference Range Interpretation Comments HEMOGLOBIN (test code = HGB) 11.4 g/dL 12-16 L HEMATOCRIT (test code = HCT) 35.5 % 37-47 L SPECIMEN COMMENT: POD #1PROTHROMBIN [id number] 17:08:00 Test Item Value Reference Range Interpretation Comments PROTHROMBIN TIME 11.6 secs 10.1-12.5 N PATIENT (test code = PTP) INTERNATIONAL NORMAL 1.02 <2.0 RECOMME NDED THERAPEUTIC RATIO (test code = RANGE FOR ORAL INR) ANTICOAGULANTTR EATMENT: CONDITION INRPr ophylaxis of venous throm bosis in 2.0 - 3.0 high- risk medical or surg ical patientsTreatme nt of venous thrombos is 2.0 - 3.0Prevention o f embolism 2.0 - 3.0Prevention o f recurrent embol ism, or 3.0 - 4.5 patie nts with mechanical pros thetic intravascular v womack IS PATIENT ON ANTICOAGULANTS ? YLIST ANTICOAGULANT/ANTI PLT MEDICATION : OtherHas Lab been notified if Patient is on Heparin Drip? NOIf Yes, order CBC, OCCULT BLOOD, PT every other day NTHROMBOPLASTIN TIME [id number] 17:08:00 Test Item Value Reference Range Interpretation Comments PTT ACTIVATED (test code = APTT) 34.0 secs 24.9-37.0 N IS PATIENT ON ANTICOAGULANTS ? YLIST ANTICOAGULANT/ANTI PLT MEDICATION : OtherHas Lab been notified if Patient is on Heparin Drip? NOIf Yes, order CBC, OCCULT BLOOD, PT every other day NCOMPREHENSIVE METABOLIC [id number] 17:08:00 Test Item Value Reference Range Interpretation [...] RATE (test code = GFR) mL/mi n/1.73 e0Hphdosdma Range:Healthy Adults >90 mL/min/1.73 m2 For Chronic Kidney Disease: Stage II Mild Decrease i n GFR 60-90 Stage III Moderate Decrea se in GFR 30-59 St age IV Severe Decre ase in GFR 15-29 St age V Kidney Failur e <15 CREATININE (test code = 1.14 mg/dL [...] TOTAL (test code = ALKP) CBC W/AUTO [id number] 16:45:00 Test Item Value Reference Range Interpretation [...] code = NRBC) - XR CHEST 1 [id number] 16:35:00 Patient Name: RUTHY BEST Unit No: [id number] EXAMS: CPT CODE: [id number] XR CHEST 1 V [id number] PROVIDED: One frontal view of the chest is provided. COMPARISON: None FINDINGS: The cardiac si lhouette is mildly enlarged. Pulmonary vasculature is engorged. No focal consolidation is visualized. No pneumothorax or pleural effusion. Bilateral shoulder arthroplasties are partially visualized. IMPRESSION: Findings suggestive of CHF/volume overload. at 1637 Reported and signed by: Rick Serrano M.D. CC: Aida Meredith MD; Geovany Olivera MD Technologist: JESSICA CHAND RT(R) Transcribed D/ (4068) LesleySLJ [facility] NAME: RUTHY BEST [address] [facility] PHYS: ALESA. - Aida Abdi : 1945 AGE: 73 SEX: F [place] [address] LOC: Y.306 A PHONE #: [phone] EXAM DATE: 05/15/2019 STATUS: DIS IN FAX #: [phone] RAD #: D/C DT 05/16/2019 PAGE 1 Signed Report Patient Name: RUTHY BEST Unit No: [id number] EXAMS: CPT CODE: [id number] XR CHEST 1 V 17800 (Continued) Orig Print D/T: S: 05/16/2019 (9747) [facility] NAME: RUTHY BEST [address] [facility] PHYS: ALESA. - Aida Meredith : 1945 AGE:73 SEX: F [place] [address] LOC: Y.306 A PHONE #: [phone] EXAM DATE: 05/15/2019 STATUS: DIS IN FAX #: [phone] RAD #: D/C DT 05/16/2019 PAGE 2 Signed Report- XR SHOULDER 1 V [id number] 14:01:00 Patient Name: RUTHY BEST Unit No: [id number] EXAMS: CPT CODE: [id number] XR SHOULDER 1 [place] [address] IMAGES PROVIDED: Single AP view of the left shoulder FINDINGS: Postoperative changes of left rev erse total shoulder arthoplasty demonstrated without evidence of immediate complication. No acute fracture. Visualized lung is clear. IMPRESSION: Left reverse total shoulder arthoplasty without immediate complication. at 1401 Reported and signed by: Rick Serrano M.D. CC: Geovany Olivera MD Technologist: MIGUELITO FELIZ (RT.R) Transcribed D/ (1401) Saadia [facility] NAME: RUTHY BEST [address] [place] [address] PHYS: Geovany Bee : 1945 AGE: 73 SEX: F [place], [place] LOC: Y.306 A PHONE #: [phone] EXAM DATE: 05/15/2019 STATUS: ADM IN FAX #: [phone] RAD #: D/C DT PAGE 1 Signed Report Patient Name: RUTHY BEST Unit No: [id number] EXAMS: CPT CODE: [id number] XR SHOULDER 1 [place] [address] (Continued) Orig Print D/T: S: 05/16/2019(1404) [facility] NAME: RUTHY BEST [address] [facility] PHYS: Geovany Bee : 1945 AGE: 73 SEX: F [place], [place] [address] LOC: Y.306 A PHONE #: [phone] EXAM DATE: 05/15/2019 STATUS: ADM IN FAX #: [phone] RAD #: D/C DT PAGE 2 Signed ReportCBC W/AUTO [id number] 05:53:00 Test Item Value Reference Range Interpretation [...] POD #1- CT UP EXTREM W/O CONT [id number] 08:39:00 Patient Name: RUTHY BEST Unit No: [id number] EXAMS: CPT CODE: [id number] [place] EXTREM W/[place] [address] [place] OF THE LEFT SHOULDER WITH SAGITTAL [...] with ACR practice standards and adherence to time clock mechanic's recommendations. Degenerative changes are present as noted. The rotator cuff is as described. No loose bodies are seen. AC joint degenerative change is present. at 0839 Reported and signed by: Ran Cedeño MD CC: Geovany Olivera MD Technologist: RT Judd(R) CTDI: DLP: Trnscrpt: 04/12/2019 (0839) t.SDR.JCL [facility] NAME: RUTHY BEST [address] [place] [address] PHYS: Geovany Bee : 1945 AGE: 73 SEX: F [place] [address] LOC: YSangitaRAD PHONE #: [phone] EXAM DATE: 04/11/2019 STATUS: DEP CLI FAX #: [phone] RAD #: D/C DT PAGE 1 Signed Report Patient Name: RUTHY BEST Unit No: [id number] EXAMS: CPT CODE: [id number] [place] EXTREM W/[place] [address] (Continued) Orig Print D/T: S: 04/12/2019 (0842) [facility] NAME: RUTHY BEST [address] [facility] PHYS: Geovany Bee : 1945 AGE: 73 SEX: F [place] [address] : Y.RAD PHONE #: [phone] EXAM DATE: 04/11/2019 STATUS: DEP CLI FAX #: [phone] RAD #: D/C DT PAGE 2 Signed ReportCBC W/AUTO [id number] 18:23:00 Test Item Value Reference Range Interpretation [...] % 0-0 N code = NRBC) SED [id number] 18:23:00 Test Item Value Reference Range Interpretation Comments SED RATE (test code = SEDW) 25 mm/hr 0-20 H COMPREHENSIVE METABOLIC [id number] 18:17:00 Test Item Value Reference Range Interpretation [...] RATE (test code = GFR) mL/mi n/1.73 h4Cmjxcdlrz Range:Healthy Adults >90 mL/min/1.73 m2 For Chronic Kidney Disease: Stage II Mild Decrease i n GFR 60-90 Stage III Moderate Decrea se in GFR 30-59 St age IV Severe Decre ase in GFR 15-29 St age V Kidney Failur e <15 CREATININE (test code 0.79 mg/dL 0.55-1.30 [...] N TOTAL (test code = ALKP) PROTHROMBIN [id number] 17:59:00 Test Item Value Reference Range Interpretation Comments PROTHROMBIN TIME 14.2 secs 10.1-12.5 H PATIENT (test code = PTP) INTERNATIONAL NORMAL 1.26 <2.0 RECOMME NDED THERAPEUTIC RATIO (test code = RANGE FOR ORAL INR) ANTICOAGULANTTR EATMENT: CONDITION INRPr ophylaxis of venous throm bosis in 2.0 - 3.0 high- risk medical or surg ical patientsTreatme nt of venous thrombos is 2.0 - 3.0Prevention o f embolism 2.0 - 3.0Prevention o f recurrent embol ism, or 3.0 - 4.5 patie nts with mechanical pros thetic intravascular v womack IS PATIENT ON ANTICOAGULANTS ? YLIST ANTICOAGULANT/ANTI PLT MEDICATION : OtherHas Lab been notified if Patient is on Heparin Drip? NOTHROMBOPLASTIN TIME [id number] 17:59:00 Test Item Value Reference Range Interpretation [...] % 0-0 N code = NRBC) SED [id number] 17:22:00 Test Item Value Reference Range Interpretation Comments SED RATE (test code = SEDW) mm/hr 0-20 CHEM [id number] 19:15:00 Test Item Value Reference Range Interpretation Comments Calcium Lvl (test code = Calcium Lvl) 9.5 8.5-10.5 [facility] [id number] 19:15:00 Test Item Value Reference Range Interpretation Comments eGFR (test code = eGFR) 94 [facility] [id number] 19:15:00 Test Item Value Reference Range Interpretation Comments CO2 (test code = CO2) 26 24-32 [facility] [id number] 19:15:00 Test Item Value Reference Range Interpretation Comments Creatinine Lvl (test code = Creatinine 0.55 0.50-1.40 Lvl) [facility] [id number] 19:15:00 Test Item Value Reference Range Interpretation Comments Chloride Lvl (test code = Chloride Lvl) 99 95-109 [facility] [id number] 19:15:00 Test Item Value Reference Range Interpretation Comments AGAP (test code = AGAP) 14.9 10.0-20.0 [facility] [id number] 19:15:00 Test Item Value Reference Range Interpretation Comments BUN (test code = BUN) 27 7-22 [facility] [id number] 19:15:00 Test Item Value Reference Range Interpretation Comments Potassium Lvl (test code = Potassium 2.9 3.5-5.1 Lvl) [facility]2016-10-05 19:15:00 Test Item Value Reference Range Interpretation Comments Sodium Lvl (test code = Sodium Lvl) 137 135-[address] [facility]2016-10-05 19:15:00 Test Item Value Reference Range Interpretation Comments Glucose Lvl (test code = Glucose Lvl) 98 70-[address] [facility]2016-10-05 19:15:00 Test Item Value Reference Range Interpretation Comments Calcium Lvl (test code = Calcium Lvl) 9.5 8.5-10.[address] [facility]2016-10-05 19:15:00 Test Item Value Reference Range Interpretation Comments eGFR (test code = eGFR) [address] [facility]2016-10-05 19:15:00 Test Item Value Reference Range Interpretation Comments CO2 (test code = CO2) 26 24-[address] [facility]2016-10-05 19:15:00 Test Item Value Reference Range Interpretation Comments Creatinine Lvl (test code = Creatinine 0.55 0.50-1.40 Lvl) [facility]2016-10-05 19:15:00 Test Item Value Reference Range Interpretation Comments Chloride Lvl (test code = Chloride Lvl) 99 95-[address] [facility]2016-10-05 19:15:00 Test Item Value Reference Range Interpretation Comments AGAP (test code = AGAP) 14.9 10.0-20.[address] [facility]2016-10-05 19:15:00 Test Item Value Reference Range Interpretation Comments BUN (test code = BUN) 27 7-[address] [facility]2016-10-05 19:15:00 Test Item Value Reference Range Interpretation Comments Potassium Lvl (test code = Potassium 2.9 3.5-5.1 Lvl) [facility]2016-10-05 19:15:00 Test Item Value Reference Range Interpretation Comments Sodium Lvl (test code = Sodium Lvl) 137 135-[address] [facility]2016-10-05 19:15:00 Test Item Value Reference Range Interpretation Comments Glucose Lvl (test code = Glucose Lvl) 98 70-[address] [facility]2016-10-05 19:15:00 Test Item Value Reference Range Interpretation Comments Calcium Lvl (test code = Calcium Lvl) 9.5 8.5-10.[address] [facility]2016-10-05 19:15:00 Test Item Value Reference Range Interpretation Comments eGFR (test code = eGFR) [address] [facility]2016-10-05 19:15:00 Test Item Value Reference Range Interpretation Comments CO2 (test code = CO2) 26 24-[address] [facility]2016-10-05 19:15:00 Test Item Value Reference Range Interpretation Comments Creatinine Lvl (test code = Creatinine 0.55 0.50-1.40 Lvl) [facility]2016-10-05 19:15:00 Test Item Value Reference Range Interpretation Comments Chloride Lvl (test code = Chloride Lvl) 99 95-[address] [facility]2016-10-05 19:15:00 Test Item Value Reference Range Interpretation Comments AGAP (test code = AGAP) 14.9 10.0-20.[address] [facility]2016-10-05 19:15:00 Test Item Value Reference Range Interpretation Comments BUN (test code = BUN) 27 - [facility]2016-10-05 19:15:00 Test Item Value Reference Range Interpretation Comments Potassium Lvl (test code = Potassium 2.9 3.5-5.1 Lvl) [facility]2016-10-05 19:15:00 Test Item Value Reference Range Interpretation Comments Sodium Lvl (test code = Sodium Lvl) 137 135-[address] [facility]2016-10-05 19:15:00 Test Item Value Reference Range Interpretation Comments Glucose Lvl (test code = Glucose Lvl) 98 70-99 [id number] 08:58:00 Test Item Value Reference Range Interpretation Comments BUN (test code = BUN) 24 - [facility] CenterUzbmzokSWBKEHWUMBJB4835-02-53 08:58:00 Test Item Value Reference Range Interpretation Comments Creatinine Lvl (test code = Creatinine 0.57 0.50-1.40 Lvl) [facility]chcxbEYCXVHONQM4040-19-04 08:58:00 Test Item Value Reference Range Interpretation Comments PT (test code = PT) 15.9 s 12.0-14.7 [facility] HospitalXuqlhyuSIOTSBQEWI4860-08-26 08:58:00 Test Item Value Reference Range Interpretation Comments INR (test code = INR) 1.24 0.85-1.17 [facility] HospitalFzwmwqtIALGASAKTL5002-29-51 08:58:00 Test Item Value Reference Range Interpretation Comments PTT (test code = PTT) 35.2 s 22.9-35.8 [facility] HospitalQfcxadrVTDAROPCOD6042-35-97 08:58:00 Test Item Value Reference Range Interpretation Comments RBC (test code = RBC) 3.67 4.20-5.40 [facility] Hospit[id number] 08:58:00 Test Item Value Reference Range Interpretation Comments Hgb (test code = Hgb) 10.6 12.0-16.0 [facility] HospitalXkrtgqsGLVLGAGJTB8248-17-31 08:58:00 Test Item Value Reference Range Interpretation Comments WBC (test code = WBC) 8.8 3.7-10.4 [facility] HospitalOekzkitJQVWFRUBAD4611-46-70 08:58:00 Test Item Value Reference Range Interpretation Comments Platelet (test code = Platelet) 490 133-450 [facility] HospitalEsebndzDXOSIENFYL7201-94-99 08:58:00 Test Item Value Reference Range Interpretation Comments MPV (test code = MPV) 7.5 7.4-10.4 [facility] HospitalRvqorykVQQFWYGTYH0885-53-95 08:58:00 Test Item Value Reference Range Interpretation Comments MCHC (test code = MCHC) 34.7 32.0-36.0 [facility] HospitalUpwwzhtREPSLNRQMX8727-79-49 08:58:00 Test Item Value Reference Range Interpretation Comments RDW (test code = RDW) 13.8 11.5-14.5 [facility] HospitalTnvcckmOJCZENUIQP0561-10-34 08:58:00 Test Item Value Reference Range Interpretation Comments MCV (test code = MCV) 82.8 80.0-98.0 [facility] HospitalEpsnqkaFOKIFFFWLO2930-82-45 08:58:00 Test Item Value Reference Range Interpretation Comments MCH (test code = MCH) 28.8 pg 27.0-31.0 [facility] HospitalOzccszuKRFNXOAFQX3891-12-13 08:58:00 Test Item Value Reference Range Interpretation Comments Hct (test code = Hct) 30.4 36.0-48.0 [facility] HospitalXguvsssXNPKMNDXCN1779-76-46 08:58:00 Test Item Value Reference Range Interpretation Comments Eosinophils # (test code 0.2 See_Comment [A utomated message] The = Eosinophils #) system whic h generated this result tra nsmitted reference range : <=0.5. The reference r malinda was not used to int erpret this result as normal/abnormal . [facility] HospitalXadccriDOXYIDNKQP2706-99-52 08:58:00 Test Item Value Reference Range Interpretation Comments Segs-Bands # (test code = Segs-Bands #) 5.4 1.5-8.1 [facility] HospitalYugrusiNIOIDDGASR2207-61-46 08:58:00 Test Item Value Reference Range Interpretation Comments Monocytes # (test code 1.1 See_Comment [Aut omated message] The = Monocytes #) system which generated this result tra nsmitted reference range : <=0.8. The reference r malinda was not used to int erpret this result as normal/abnormal . [facility] HospitalAwiqaepRXHTKLHPID9931-40-29 08:58:00 Test Item Value Reference Range Interpretation Comments Lymphocytes # (test code = Lymphocytes 2.1 1.0-5.5 #) [facility] HospitalKlgebosFSAHRBYWTN1988-88-41 08:58:00 Test Item Value Reference Range Interpretation Comments Eosinophils (test code = 2.1 See_Comment [A utomated message] The Eosinophils) system which ge nerated this result tra nsmitted reference range : <=4.0. The reference r malinda was not used to int erpret this result as normal/abnormal . [facility] HospitalNybctamGXCDCHJBCT9029-68-18 08:58:00 Test Item Value Reference Range Interpretation Comments Basophils (test code = 0.6 See_Comment [Aut omated message] The Basophils) system which ge nerated this result tra nsmitted reference range : <=1.0. The reference r malinda was not used to int erpret this result as normal/abnormal . [facility] HospitalDgmuzwpYONEITJOEG2817-15-53 08:58:00 Test Item Value Reference Range Interpretation Comments Lymphocytes (test code = Lymphocytes) 23.7 20.0-40.0 [facility] HospitalOejwkftEVFZHLGHHB5834-11-64 08:58:00 Test Item Value Reference Range Interpretation Comments Monocytes (test code = Monocytes) 12.4 2.0-12.0 [facility] HospitalLpwljflTKIOYPXQJL9612-94-19 08:58:00 Test Item Value Reference Range Interpretation Comments Segs (test code = Segs) 61.2 45.0-75.0 [facility] CenterCnovpjrRZZGSCCMZPVC0817-40-09 08:58:00 Test Item Value Reference Range Interpretation Comments Chloride Lvl (test code = Chloride Lvl) 99 95-109 [facility] CenterSnrcgdtDRISHJJXPPHA9629-60-99 08:58:00 Test Item Value Reference Range Interpretation Comments Potassium Lvl (test code = Potassium 2.5 3.5-5.1 Lvl) [facility] CenterOzdvrddAJGCNZOPMOUT1756-84-63 08:58:00 Test Item Value Reference Range Interpretation Comments Sodium Lvl (test code = Sodium Lvl) 136 135-145 [facility] CenterAovsxfoTNWQTGGDAAYW0571-88-40 08:58:00 Test Item Value Reference Range Interpretation Comments CO2 (test code = CO2) 25 24-32 [facility] CenterPwhadvaJTZYRSHLYBOK8202-66-55 08:58:00 Test Item Value Reference Range Interpretation Comments eGFR (test code = eGFR) 93 [facility] CenterMkjkenqWDIQCKUGLSPB1875-40-19 08:58:00 Test Item Value Reference Range Interpretation Comments Calcium Lvl (test code = Calcium Lvl) 9.5 8.5-10.5 [facility] CenterWzuaelcYDWXEYLMXLZK6286-70-92 08:58:00 Test Item Value Reference Range Interpretation Comments AGAP (test code = AGAP) 14.5 10.0-20.0 [facility] CenterYxlmjgrNNAOWRFMCFDB8417-41-08 08:58:00 Test Item Value Reference Range Interpretation Comments Glucose Lvl (test code = Glucose Lvl) 93 70-99 [facility] CenterWmotgmuXHMLDGZBEGRB9422-28-65 08:58:00 Test Item Value Reference Range Interpretation Comments BUN (test code = BUN) 24 7-22 [facility] CenterVhfkwbhXPOFDFERTEAY7308-57-26 08:58:00 Test Item Value Reference Range Interpretation Comments Creatinine Lvl (test code = Creatinine 0.57 0.50-1.40 Lvl) [facility] HospitalQtvrsnqHHWJELMOGD7943-02-07 08:58:00 Test Item Value Reference Range Interpretation Comments PT (test code = PT) 15.9 s 12.0-14.7 [facility] HospitalUkcdkdwWUDJNHWTKR1045-72-78 08:58:00 Test Item Value Reference Range Interpretation Comments INR (test code = INR) 1.24 0.85-1.17 [facility] HospitalUbwuwmaUCZXBXNKSV6622-64-90 08:58:00 Test Item Value Reference Range Interpretation Comments PTT (test code = PTT) 35.2 s 22.9-35.8 [facility] HospitalGzvbwmgCTFWNUBSEA6367-22-18 08:58:00 Test Item Value Reference Range Interpretation Comments RBC (test code = RBC) 3.67 4.20-5.40 [facility] HospitalUzadymrKEKBYJXBQM3536-06-28 08:58:00 Test Item Value Reference Range Interpretation Comments Hgb (test code = Hgb) 10.6 12.0-16.0 [facility] HospitalMgnxhbbBFUYYTMTVI7257-91-46 08:58:00 Test Item Value Reference Range Interpretation Comments WBC (test code = WBC) 8.8 3.7-10.4 [facility] HospitalUppulesEPAARFRMHL6883-85-68 08:58:00 Test Item Value Reference Range Interpretation Comments Platelet (test code = Platelet) 490 133-450 [facility] HospitalYojjwyoUIOYXYUXPS8766-30-67 08:58:00 Test Item Value Reference Range Interpretation Comments MPV (test code = MPV) 7.5 7.4-10.4 [facility] HospitalZauyspeMVXXBQMXXV6084-30-33 08:58:00 Test Item Value Reference Range Interpretation Comments MCHC (test code = MCHC) 34.7 32.0-36.0 [facility] HospitalUymfghhKNOXVHVUEP3762-01-40 08:58:00 Test Item Value Reference Range Interpretation Comments RDW (test code = RDW) 13.8 11.5-14.5 [facility] HospitalByvksbdKWLHLAMPYJ7408-61-40 08:58:00 Test Item Value Reference Range Interpretation Comments MCV (test code = MCV) 82.8 80.0-98.0 [facility] HospitalNrryttsIXNWSKQDSI1507-53-31 08:58:00 Test Item Value Reference Range Interpretation Comments MCH (test code = MCH) 28.8 pg 27.0-31.0 [facility] HospitalUviiffjSNGKEVCJTC8715-39-44 08:58:00 Test Item Value Reference Range Interpretation Comments Hct (test code = Hct) 30.4 36.0-48.0 [facility]OpakeqjIDJJATYCLY6909-16-75 08:58:00 Test Item Value Reference Range Interpretation Comments Eosinophils # (test code 0.2 See_Comment [A utomated message] The = Eosinophils #) system whic h generated this result tra nsmitted reference range : <=0.5. The reference r malinda was not used to int erpret this result as normal/abnormal . [facility] HospitalQeztqueEWGCUCANOF4008-94-12 08:58:00 Test Item Value Reference Range Interpretation Comments Segs-Bands # (test code = Segs-Bands #) 5.4 1.5-8.1 [facility] HospitalShwwendBYHHGIZVQD4447-65-51 08:58:00 Test Item Value Reference Range Interpretation Comments Monocytes # (test code 1.1 See_Comment [Aut omated message] The = Monocytes #) system which generated this result tra nsmitted reference range : <=0.8. The reference r malinda was not used to int erpret this result as normal/abnormal . [facility] HospitalTwgwykkSDQHUXUSJI8791-12-52 08:58:00 Test Item Value Reference Range Interpretation Comments Lymphocytes # (test code = Lymphocytes 2.1 1.0-5.5 #) [facility] HospitalDgngsinCODKXYSQEA7111-74-27 08:58:00 Test Item Value Reference Range Interpretation Comments Eosinophils (test code = 2.1 See_Comment [A utomated message] The Eosinophils) system which ge nerated this result tra nsmitted reference range : <=4.0. The reference r malinda was not used to int erpret this result as normal/abnormal . [facility] HospitalKjogqdkFAZQWDRREW7124-01-83 08:58:00 Test Item Value Reference Range Interpretation Comments Basophils (test code = 0.6 See_Comment [Aut omated message] The Basophils) system which ge nerated this result tra nsmitted reference range : <=1.0. The reference r malinda was not used to int erpret this result as normal/abnormal . [facility] HospitalOgsvxteCRUBIHGDXR5671-70-63 08:58:00 Test Item Value Reference Range Interpretation Comments Lymphocytes (test code = Lymphocytes) 23.7 20.0-40.0 [facility] HospitalYdxswhjHKPCARPOTI2725-70-54 08:58:00 Test Item Value Reference Range Interpretation Comments Monocytes (test code = Monocytes) 12.4 2.0-12.0 [facility] HospitalXqfhipkMHJTHVWKYH9090-41-18 08:58:00 Test Item Value Reference Range Interpretation Comments Segs (test code = Segs) 61.2 45.0-75.0 [facility]UqtefnlUWVLTUKJNNCJ7404-95-90 08:58:00 Test Item Value Reference Range Interpretation Comments Chloride Lvl (test code = Chloride Lvl) 99 95-109 [facility] CenterLmrfkosOWJNEVSDNUII6980-41-09 08:58:00 Test Item Value Reference Range Interpretation Comments Potassium Lvl (test code = Potassium 2.5 3.5-5.1 Lvl) [facility] CenterWqiqhbySXVMHSEZCJSW5696-03-42 08:58:00 Test Item Value Reference Range Interpretation Comments Sodium Lvl (test code = Sodium Lvl) 136 135-145 [facility] CenterIntnzelAYEVPTJEYMYF9891-88-03 08:58:00 Test Item Value Reference Range Interpretation Comments CO2 (test code = CO2) 25 24-32 [facility] CenterXdbugfiRIGKMXUQHFRR2684-79-56 08:58:00 Test Item Value Reference Range Interpretation Comments eGFR (test code = eGFR) 93 [facility] CenterEqzyastJSXNCWKBAJHN3655-41-43 08:58:00 Test Item Value Reference Range Interpretation Comments Calcium Lvl (test code = Calcium Lvl) 9.5 8.5-10.5 [facility] CenterNrinfgyZGYQDAZWXSEE8425-83-04 08:58:00 Test Item Value Reference Range Interpretation Comments AGAP (test code = AGAP) 14.5 10.0-20.0 [facility] CenterQjernqhYUPRVKKPENQQ8030-94-46 08:58:00 Test Item Value Reference Range Interpretation Comments Glucose Lvl (test code = Glucose Lvl) 93 70-99 [facility] CenterUzuzjndDSPRLYDUDXNW9728-93-10 08:58:00 Test Item Value Reference Range Interpretation Comments BUN (test code = BUN) 24 7-22 [facility] CenterCoepicdDJVZRZRNCMHV5712-06-49 08:58:00 Test Item Value Reference Range Interpretation Comments Creatinine Lvl (test code = Creatinine 0.57 0.50-1.40 Lvl) [facility] HospitalDzvicpyKOQTVZZLXT0154-01-31 08:58:00 Test Item Value Reference Range Interpretation Comments PT (test code = PT) 15.9 s 12.0-14.7 [facility] HospitalUujbrvzKTBKYVNVNJ5073-22-85 08:58:00 Test Item Value Reference Range Interpretation Comments INR (test code = INR) 1.24 0.85-1.17 [facility] HospitalLjjmcdjZIHAXLMEHN5665-57-80 08:58:00 Test Item Value Reference Range Interpretation Comments PTT (test code = PTT) 35.2 s 22.9-35.8 [facility] HospitalAdtoxthPEHTFTERWO7404-50-20 08:58:00 Test Item Value Reference Range Interpretation Comments RBC (test code = RBC) 3.67 4.20-5.40 [facility] HospitalBxhrerfYQUXNSIPOM9686-21-66 08:58:00 Test Item Value Reference Range Interpretation Comments Hgb (test code = Hgb) 10.6 12.0-16.0 [facility] HospitalHvidksoUBKUEEEYEN6058-76-65 08:58:00 Test Item Value Reference Range Interpretation Comments WBC (test code = WBC) 8.8 3.7-10.4 [facility] HospitalBqwtojgMJMYNHIDWE0131-68-47 08:58:00 Test Item Value Reference Range Interpretation Comments Platelet (test code = Platelet) 490 133-450 [facility] HospitalAgfrljfOIDJMNOCZR0426-59-92 08:58:00 Test Item Value Reference Range Interpretation Comments MPV (test code = MPV) 7.5 7.4-10.4 [facility] HospitalTjwohbnOFDKNAIOFT6545-37-45 08:58:00 Test Item Value Reference Range Interpretation Comments MCHC (test code = MCHC) 34.7 32.0-36.0 [facility] HospitalSfysrogJQXDEKMPUX9623-65-03 08:58:00 Test Item Value Reference Range Interpretation Comments RDW (test code = RDW) 13.8 11.5-14.5 [facility] HospitalWnoyobrUHKMTYPDYY8352-97-13 08:58:00 Test Item Value Reference Range Interpretation Comments MCV (test code = MCV) 82.8 80.0-98.0 [facility] HospitalSksekvxLUNPEKGPPU2388-73-15 08:58:00 Test Item Value Reference Range Interpretation Comments MCH (test code = MCH) 28.8 pg 27.0-31.0 [facility] HospitalDzajtikFTAMUPDNSI4439-30-18 08:58:00 Test Item Value Reference Range Interpretation Comments Hct (test code = Hct) 30.4 36.0-48.0 [facility] HospitalKvydtfuEBHOCNGXML2928-55-53 08:58:00 Test Item Value Reference Range Interpretation Comments Eosinophils # (test code 0.2 See_Comment [A utomated message] The = Eosinophils #) system whic h generated this result tra nsmitted reference range : <=0.5. The reference r malinda was not used to int erpret this result as normal/abnormal . [facility] HospitalTndguexOHPWRBVATD3310-28-53 08:58:00 Test Item Value Reference Range Interpretation Comments Segs-Bands # (test code = Segs-Bands #) 5.4 1.5-8.1 [facility] HospitalOifurhvMLXMCSECCW3179-31-54 08:58:00 Test Item Value Reference Range Interpretation Comments Monocytes # (test code 1.1 See_Comment [Aut omated message] The = Monocytes #) system which generated this result tra nsmitted reference range : <=0.8. The reference r malinda was not used to int erpret this result as normal/abnormal . [facility] HospitalOkoxkybBFBOXNAIQH5290-82-32 08:58:00 Test Item Value Reference Range Interpretation Comments Lymphocytes # (test code = Lymphocytes 2.1 1.0-5.5 #) [facility] HospitalXbfuaytZSDKVSQONZ1784-11-76 08:58:00 Test Item Value Reference Range Interpretation Comments Eosinophils (test code = 2.1 See_Comment [A utomated message] The Eosinophils) system which ge nerated this result tra nsmitted reference range : <=4.0. The reference r malinda was not used to int erpret this result as normal/abnormal . [facility] HospitalSiatuvyXHBAKKTYCW9512-80-03 08:58:00 Test Item Value Reference Range Interpretation Comments Basophils (test code = 0.6 See_Comment [Aut omated message] The Basophils) system which ge nerated this result tra nsmitted reference range : <=1.0. The reference r malinda was not used to int erpret this result as normal/abnormal . [facility] HospitalWifemkxVNLEVJHOTI2973-34-39 08:58:00 Test Item Value Reference Range Interpretation Comments Lymphocytes (test code = Lymphocytes) 23.7 20.0-40.0 [facility] HospitalOskbrcjQEWNIRSEDY9312-52-98 08:58:00 Test Item Value Reference Range Interpretation Comments Monocytes (test code = Monocytes) 12.4 2.0-12.0 [facility] HospitalAbhmhlzOAVEVGWPHG0535-74-61 08:58:00 Test Item Value Reference Range Interpretation Comments Segs (test code = Segs) 61.2 45.0-75.0 [facility] CenterKfxnvgkDICTYKOCBVGB4905-14-43 08:58:00 Test Item Value Reference Range Interpretation Comments Chloride Lvl (test code = Chloride Lvl) 99 95-109 [facility] CenterDswedavAIXIBFJNIVBN9012-90-55 08:58:00 Test Item Value Reference Range Interpretation Comments Potassium Lvl (test code = Potassium 2.5 3.5-5.1 Lvl) [facility] CenterHqaixmzLIYCYAWVECYW7608-71-75 08:58:00 Test Item Value Reference Range Interpretation Comments Sodium Lvl (test code = Sodium Lvl) 136 135-145 [facility] CenterMrjoqyjICMPYLSKWIRG2902-66-34 08:58:00 Test Item Value Reference Range Interpretation Comments CO2 (test code = CO2) 25 24-32 [facility] CenterZdjnxyvYJXSVJDFKPHI7391-90-79 08:58:00 Test Item Value Reference Range Interpretation Comments eGFR (test code = eGFR) 93 [facility] CenterDgfgodzFFFWFPOTTKBE2519-83-20 08:58:00 Test Item Value Reference Range Interpretation Comments Calcium Lvl (test code = Calcium Lvl) 9.5 8.5-10.5 [facility] CenterEdxpytgPZBCGJYLATMA9098-26-14 08:58:00 Test Item Value Reference Range Interpretation Comments AGAP (test code = AGAP) 14.5 10.0-20.0 [facility] CenterDzldgedMQEITCSKZLKR7407-30-80 08:58:00 Test Item Value Reference Range Interpretation Comments Glucose Lvl (test code = Glucose Lvl) 93 70-[address] [facility]2016-10-04 09:47:00 Test Item Value Reference Range Interpretation Comments Magnesium Lvl (test code = Magnesium 1.5 1.8-2.4 Lvl) [facility]2016-10-04 09:47:00 Test Item Value Reference Range Interpretation Comments Magnesium Lvl (test code = Magnesium 1.5 1.8-2.4 Lvl) [facility]2016-10-04 09:47:00 Test Item Value Reference Range Interpretation Comments Magnesium Lvl (test code = Magnesium 1.5 1.8-2.4 Lvl) [facility]2016-10-04 05:40:00 Test Item Value Reference Range Interpretation Comments AST (test code = AST) 20 See_Comment [Auto mated message] The system which ge nerated this result transmit james reference range : <=37. The reference range was not used to interpr et this result as mary l/abnormal. [facility]2016-10-04 05:40:00 Test Item Value Reference Range Interpretation Comments Bili Total (test code = Bili Total) 0.8 0.2-1.[address] [facility]2016-10-04 05:40:00 Test Item Value Reference Range Interpretation Comments Alk Phos (test code = Alk Phos) 31 39-[address] [facility]2016-10-04 05:40:00 Test Item Value Reference Range Interpretation Comments eGFR (test code = eGFR) [address] [facility]2016-10-04 05:40:00 Test Item Value Reference Range Interpretation Comments Total Protein (test code = Total 6.1 6.4-8.4 Protein) [facility]2016-10-04 05:40:00 Test Item Value Reference Range Interpretation Comments Albumin Lvl (test code = Albumin Lvl) 2.8 3.5-5.[address] [facility]2016-10-04 05:40:00 Test Item Value Reference Range Interpretation Comments CO2 (test code = CO2) 27 24-[address] [facility]2016-10-04 05:40:00 Test Item Value Reference Range Interpretation Comments ALT (test code = ALT) 20 See_Comment [Auto mated message] The system which ge nerated this result transmit james reference range : <=65. The reference range was not used to interpr et this result as mary l/abnormal. [facility]2016-10-04 05:40:00 Test Item Value Reference Range Interpretation Comments A/G Ratio (test code = A/G Ratio) 0.8 0.7-1.[address] [facility]2016-10-04 05:40:00 Test Item Value Reference Range Interpretation Comments Globulin (test code = Globulin) 3.3 2.7-4.[address] [facility]2016-10-04 05:40:00 Test Item Value Reference Range Interpretation Comments AGAP (test code = AGAP) 15.9 10.0-20.[address] [facility]2016-10-04 05:40:00 Test Item Value Reference Range Interpretation Comments B/C Ratio (test code = B/C Ratio) 33 6-[address] [facility]2016-10-04 05:40:00 Test Item Value Reference Range Interpretation Comments Calcium Lvl (test code = Calcium Lvl) 9.1 8.5-10.[address] [facility]2016-10-04 05:40:00 Test Item Value Reference Range Interpretation Comments Potassium Lvl (test code = Potassium 2.9 3.5-5.1 Lvl) [facility]2016-10-04 05:40:00 Test Item Value Reference Range Interpretation Comments Chloride Lvl (test code = Chloride Lvl) 100 95-[address] [facility]2016-10-04 05:40:00 Test Item Value Reference Range Interpretation Comments Sodium Lvl (test code = Sodium Lvl) 140 135-[address] [facility]2016-10-04 05:40:00 Test Item Value Reference Range Interpretation Comments Creatinine Lvl (test code = Creatinine 0.70 0.50-1.40 Lvl) [facility]2016-10-04 05:40:00 Test Item Value Reference Range Interpretation Comments BUN (test code = BUN) 23 7-[address] [facility]2016-10-04 05:40:00 Test Item Value Reference Range Interpretation Comments Glucose Lvl (test code = Glucose Lvl) 113 70-[address] [facility]2016-10-04 05:40:00 Test Item Value Reference Range Interpretation Comments AST (test code = AST) 20 See_Comment [Auto mated message] The system which ge nerated this result transmit james reference range : <=37. The reference range was not used to interpr et this result as mary l/abnormal. [facility]2016-10-04 05:40:00 Test Item Value Reference Range Interpretation Comments Bili Total (test code = Bili Total) 0.8 0.2-1.[address] [facility]2016-10-04 05:40:00 Test Item Value Reference Range Interpretation Comments Alk Phos (test code = Alk Phos) 31 39-[address] [facility]2016-10-04 05:40:00 Test Item Value Reference Range Interpretation Comments eGFR (test code = eGFR) [address] [facility]2016-10-04 05:40:00 Test Item Value Reference Range Interpretation Comments Total Protein (test code = Total 6.1 6.4-8.4 Protein) [facility]2016-10-04 05:40:00 Test Item Value Reference Range Interpretation Comments Albumin Lvl (test code = Albumin Lvl) 2.8 3.5-5.[address] [facility]2016-10-04 05:40:00 Test Item Value Reference Range Interpretation Comments CO2 (test code = CO2) 27 24-[address] [facility]2016-10-04 05:40:00 Test Item Value Reference Range Interpretation Comments ALT (test code = ALT) 20 See_Comment [Auto mated message] The system which ge nerated this result transmit james reference range : <=65. The reference range was not used to interpr et this result as mary l/abnormal. [facility]2016-10-04 05:40:00 Test Item Value Reference Range Interpretation Comments A/G Ratio (test code = A/G Ratio) 0.8 0.7-1.[address] [facility]2016-10-04 05:40:00 Test Item Value Reference Range Interpretation Comments Globulin (test code = Globulin) 3.3 2.7-4.[address] [facility]2016-10-04 05:40:00 Test Item Value Reference Range Interpretation Comments AGAP (test code = AGAP) 15.9 10.0-20.[address] [facility]2016-10-04 05:40:00 Test Item Value Reference Range Interpretation Comments B/C Ratio (test code = B/C Ratio) 33 6-[address] [facility]2016-10-04 05:40:00 Test Item Value Reference Range Interpretation Comments Calcium Lvl (test code = Calcium Lvl) 9.1 8.5-10.[address] [facility]2016-10-04 05:40:00 Test Item Value Reference Range Interpretation Comments Potassium Lvl (test code = Potassium 2.9 3.5-5.1 Lvl) [facility]2016-10-04 05:40:00 Test Item Value Reference Range Interpretation Comments Chloride Lvl (test code = Chloride Lvl) 100 95-[address] [facility]2016-10-04 05:40:00 Test Item Value Reference Range Interpretation Comments Sodium Lvl (test code = Sodium Lvl) 140 135-[address] [facility]2016-10-04 05:40:00 Test Item Value Reference Range Interpretation Comments Creatinine Lvl (test code = Creatinine 0.70 0.50-1.40 Lvl) [facility]2016-10-04 05:40:00 Test Item Value Reference Range Interpretation Comments BUN (test code = BUN) 23 7-[address] [facility]2016-10-04 05:40:00 Test Item Value Reference Range Interpretation Comments Glucose Lvl (test code = Glucose Lvl) 113 70-[address] [facility]2016-10-04 05:40:00 Test Item Value Reference Range Interpretation Comments AST (test code = AST) 20 See_Comment [Auto mated message] The system which ge nerated this result transmit james reference range : <=37. The reference range was not used to interpr et this result as mary l/abnormal. [facility]2016-10-04 05:40:00 Test Item Value Reference Range Interpretation Comments Bili Total (test code = Bili Total) 0.8 0.2-1.[address] [facility]2016-10-04 05:40:00 Test Item Value Reference Range Interpretation Comments Alk Phos (test code = Alk Phos) 31 39-[address] [facility]2016-10-04 05:40:00 Test Item Value Reference Range Interpretation Comments eGFR (test code = eGFR) [address] [facility]2016-10-04 05:40:00 Test Item Value Reference Range Interpretation Comments Total Protein (test code = Total 6.1 6.4-8.4 Protein) [facility]2016-10-04 05:40:00 Test Item Value Reference Range Interpretation Comments Albumin Lvl (test code = Albumin Lvl) 2.8 3.5-5.0 [place] 948176-10-04 05:40:00 Test Item Value Reference Range Interpretation Comments CO2 (test code = CO2) 27 24-[address] [facility]2016-10-04 05:40:00 Test Item Value Reference Range Interpretation Comments ALT (test code = ALT) 20 See_Comment [Auto mated message] The system which ge nerated this result transmit james reference range : <=65. The reference range was not used to interpr et this result as mary l/abnormal. [facility]2016-10-04 05:40:00 Test Item Value Reference Range Interpretation Comments A/G Ratio (test code = A/G Ratio) 0.8 0.7-1.6 [place] 948176-10-04 05:40:00 Test Item Value Reference Range Interpretation Comments Globulin (test code = Globulin) 3.3 2.7-4.[address] [facility]2016-10-04 05:40:00 Test Item Value Reference Range Interpretation Comments AGAP (test code = AGAP) 15.9 10.0-20.[address] [facility]2016-10-04 05:40:00 Test Item Value Reference Range Interpretation Comments B/C Ratio (test code = B/C Ratio) 33 6-[address] [facility]2016-10-04 05:40:00 Test Item Value Reference Range Interpretation Comments Calcium Lvl (test code = Calcium Lvl) 9.1 8.5-10.[address] [facility]2016-10-04 05:40:00 Test Item Value Reference Range Interpretation Comments Potassium Lvl (test code = Potassium 2.9 3.5-5.1 Lvl) [facility]2016-10-04 05:40:00 Test Item Value Reference Range Interpretation Comments Chloride Lvl (test code = Chloride Lvl) 100 95-[address] [facility]2016-10-04 05:40:00 Test Item Value Reference Range Interpretation Comments Sodium Lvl (test code = Sodium Lvl) 140 135-[address] [facility]2016-10-04 05:40:00 Test Item Value Reference Range Interpretation Comments Creatinine Lvl (test code = Creatinine 0.70 0.50-1.40 Lvl) [facility]2016-10-04 05:40:00 Test Item Value Reference Range Interpretation Comments BUN (test code = BUN) 23 7-[address] [facility]2016-10-04 05:40:00 Test Item Value Reference Range Interpretation Comments Glucose Lvl (test code = Glucose Lvl) 113 70-99 [facility] [id number] 03:24:00 Test Item Value Reference Range Interpretation Comments Troponin-T (test code 0.092 See_Comment [Auto mated message] The = Troponin-T) system which g enerated this result transmit james reference range : <=0.100. The reference r malinda was not used to interpr et this result as mary l/abnormal. [facility] 49 [id number] 03:24:00 Test Item Value Reference Range Interpretation Comments Troponin-I (test code 0.39 See_Comment [Auto mated message] The = Troponin-I) system which g enerated this result transmit james reference range : <=0.40. The reference r malinda was not used to interpr et this result as mary l/abnormal. [facility] HospitalDiagnostic [id number] 03:24:00 Test Item Value Reference Range Interpretation Comments Total CK (test code = Total CK) 42 [facility] [id number] 03:24:00 Test Item Value Reference Range Interpretation Comments Troponin-T (test code 0.092 See_Comment [Auto mated message] The = Troponin-T) system which g enerated this result transmit james reference range : <=0.100. The reference r malinda was not used to interpr et this result as mary l/abnormal. [facility] Hospital[facility] 49 [id number] 03:24:00 Test Item Value Reference Range Interpretation Comments Troponin-I (test code 0.39 See_Comment [Auto mated message] The = Troponin-I) system which g enerated this result transmit james reference range : <=0.40. The reference r malinda was not used to interpr et this result as mary l/abnormal. [facility] HospitalDiagnostic [id number] 03:24:00 Test Item Value Reference Range Interpretation Comments Total CK (test code = Total CK) 42 [facility] HospitalDiagnostic [id number] 03:24:00 Test Item Value Reference Range Interpretation Comments Troponin-T (test code 0.092 See_Comment [Auto mated message] The = Troponin-T) system which g enerated this result transmit james reference range : <=0.100. The reference r malinda was not used to interpr et this result as mary l/abnormal. [facility] 03:[facility]:00 Test Item Value Reference Range Interpretation Comments Troponin-I (test code 0.39 See_Comment [Auto mated message] The = Troponin-I) system which g enerated this result transmit james reference range : <=0.40. The reference r malinda was not used to interpr et this result as mary l/abnormal. [facility] [employer]2016-10-04 03:24:00 Test Item Value Reference Range Interpretation Comments Total CK (test code = Total CK) 42 [facility] [id number] 23:47:00 Test Item Value Reference Range Interpretation Comments Troponin-T (test code 0.153 See_Comment [Auto mated message] The = Troponin-T) system which g enerated this result transmit james reference range : <=0.100. The reference r malinda was not used to interpr et this result as mary l/abnormal. [facility] [id number] 23:47:00 Test Item Value Reference Range Interpretation Comments Troponin-I (test code 0.42 See_Comment [Auto mated message] The = Troponin-I) system which g enerated this result transmit james reference range : <=0.40. The reference r malinda was not used to interpr et this result as mary l/abnormal. [facility] [id number] 23:47:00 Test Item Value Reference Range Interpretation Comments Total CK (test code = Total CK) 44 [facility] [id number] 23:47:00 Test Item Value Reference Range Interpretation Comments Troponin-T (test code 0.153 See_Comment [Auto mated message] The = Troponin-T) system which g enerated this result transmit james reference range : <=0.100. The reference r malinda was not used to interpr et this result as mary l/abnormal. [facility] [id number] 23:47:00 Test Item Value Reference Range Interpretation Comments Troponin-I (test code 0.42 See_Comment [Auto mated message] The = Troponin-I) system which g enerated this result transmit james reference range : <=0.40. The reference r malinda was not used to interpr et this result as mary l/abnormal. [facility] OTTFWKT9679-20-33 23:47:00 Test Item Value Reference Range Interpretation Comments Total CK (test code = Total CK) 44 [facility] [id number] 23:47:00 Test Item Value Reference Range Interpretation Comments Troponin-T (test code 0.153 See_Comment [Auto mated message] The = Troponin-T) system which g enerated this result transmit james reference range : <=0.100. The reference r malinda was not used to interpr et this result as mary l/abnormal. [facility] [employer]2016-10-03 23:47:00 Test Item Value Reference Range Interpretation Comments Troponin-I (test code 0.42 See_Comment [Auto mated message] The = Troponin-I) system which g enerated this result transmit james reference range : <=0.40. The reference r malinda was not used to interpr et this result as mary l/abnormal. [facility] 23:47[facility]00 Test Item Value Reference Range Interpretation Comments Total CK (test code = Total CK) 44 12-191 [facility] 19:56:00 Test Item Value Reference Range Interpretation Comments Troponin-T (test code 0.149 See_Comment [Auto mated message] The = Troponin-T) system which g enerated this result transmit james reference range : <=0.100. The reference r malinda was not used to interpr et this result as mary l/abnormal. [facility] 19:56:00 Test Item Value Reference Range Interpretation Comments Troponin-I (test code 0.44 See_Comment [Auto mated message] The = Troponin-I) system which g enerated this result transmit james reference range : <=0.40. The reference r malinda was not used to interpr et this result as mary l/abnormal. [facility] [employer]2016-10-03 19:56:00 Test Item Value Reference Range Interpretation Comments Total CK (test code = Total CK) 46 12-191 [facility] [employer]2016-10-03 19:56:00 Test Item Value Reference Range Interpretation Comments Troponin-T (test code 0.149 See_Comment [Auto mated message] The = Troponin-T) system which g enerated this result transmit james reference range : <=0.100. The reference r malinda was not used to interpr et this result as mary l/abnormal. [facility] [employer]2016-10-03 19:56:00 Test Item Value Reference Range Interpretation Comments Troponin-I (test code 0.44 See_Comment [Auto mated message] The = Troponin-I) system which g enerated this result transmit james reference range : <=0.40. The reference r malinda was not used to interpr et this result as mary l/abnormal. [facility] [id number] 19:56:00 Test Item Value Reference Range Interpretation Comments Total CK (test code = Total CK) 46 191 [facility]2016-10-03 19:56:00 Test Item Value Reference Range Interpretation Comments Troponin-T (test code 0.149 See_Comment [Auto mated message] The = Troponin-T) system which g enerated this result transmit james reference range : <=0.100. The reference r malinda was not used to interpr et this result as mary l/abnormal. [facility] QSMJKFJ7545-54-04 19:56:00 Test Item Value Reference Range Interpretation Comments Troponin-I (test code 0.44 See_Comment [Auto mated message] The = Troponin-I) system which g enerated this result transmit james reference range : <=0.40. The reference r malinda was not used to interpr et this result as mary l/abnormal. [facility] [id number] 19:56:00 Test Item Value Reference Range Interpretation Comments Total CK (test code = Total CK) 46 191 [facility]DuoopujURHXZVSTSW8821-43-55 17:32:00 Test Item Value Reference Range Interpretation Comments Basophils # (test code 0.1 See_Comment [Aut omated message] The = Basophils #) system which generated this result tra nsmitted reference range : <=0.2. The reference r malinda was not used to int erpret this result as normal/abnormal . [facility] HospitalPzvlmerHWJJOTJLTF8889-96-25 17:32:00 Test Item Value Reference Range Interpretation Comments Lymphocytes (test code = Lymphocytes) 14.6 20.0-40.0 [facility] HospitalRqnaxvdAOAQUXKFZV5298-06-85 17:32:00 Test Item Value Reference Range Interpretation Comments Segs-Bands # (test code = Segs-Bands #) 4.5 1.5-8.1 [facility] HospitalIqdoalzJGJRYODIGX4108-35-21 17:32:00 Test Item Value Reference Range Interpretation Comments Monocytes (test code = Monocytes) 4.2 2.0-12.0 [facility] HospitalTcfbqpdUXUUEVBVCI5786-43-43 17:32:00 Test Item Value Reference Range Interpretation Comments Basophils (test code = 0.9 See_Comment [Aut omated message] The Basophils) system which ge nerated this result tra nsmitted reference range : <=1.0. The reference r malinda was not used to int erpret this result as normal/abnormal . [facility] HospitalNzhtzkcWMTDZJJFUY6298-81-11 17:32:00 Test Item Value Reference Range Interpretation Comments Eosinophils # (test code 0.4 See_Comment [A utomated message] The = Eosinophils #) system whic h generated this result tra nsmitted reference range : <=0.5. The reference r malinda was not used to int erpret this result as normal/abnormal . [facility] HospitalGpktvcvYVYVAELLLT2392-18-62 17:32:00 Test Item Value Reference Range Interpretation Comments Monocytes # (test code 0.3 See_Comment [Aut omated message] The = Monocytes #) system which generated this result tra nsmitted reference range : <=0.8. The reference r malinda was not used to int erpret this result as normal/abnormal . [facility] HospitalYinpqjbXFZEIOGLMN6886-62-22 17:32:00 Test Item Value Reference Range Interpretation Comments Lymphocytes # (test code = Lymphocytes 0.9 1.0-5.5 #) [facility] HospitalKidcaziXRERXDPIQS6354-88-55 17:32:00 Test Item Value Reference Range Interpretation Comments Segs (test code = Segs) 74.1 45.0-75.0 [facility] HospitalIffxoyaFADFEPCFCU5271-78-62 17:32:00 Test Item Value Reference Range Interpretation Comments Eosinophils (test code = 6.2 See_Comment [A utomated message] The Eosinophils) system which ge nerated this result tra nsmitted reference range : <=4.0. The reference r malinda was not used to int erpret this result as normal/abnormal . [facility] HospitalZnsmjslIQWDFUCXYW0012-47-05 17:32:00 Test Item Value Reference Range Interpretation Comments MPV (test code = MPV) 6.7 7.4-10.4 [facility] HospitalJupwzcgKYYJOQYZYA1341-41-78 17:32:00 Test Item Value Reference Range Interpretation Comments Platelet (test code = Platelet) 300 133-450 [facility] HospitalZeyjskrEJMCYMOCCW7969-09-38 17:32:00 Test Item Value Reference Range Interpretation Comments Hct (test code = Hct) 31.2 36.0-48.0 [facility] HospitalIcwhjqiDPCRKZLBRF5397-99-68 17:32:00 Test Item Value Reference Range Interpretation Comments Hgb (test code = Hgb) 10.5 12.0-16.0 [facility] HospitalOuwvphoAUNJBYOCOP4593-77-93 17:32:00 Test Item Value Reference Range Interpretation Comments MCV (test code = MCV) 84.5 80.0-98.0 [facility] HospitalNxbonjrSGXOXBCLTY8244-56-58 17:32:00 Test Item Value Reference Range Interpretation Comments MCHC (test code = MCHC) 33.6 32.0-36.0 [facility] HospitalDjhqsmcUXWTVWUJSB2273-70-58 17:32:00 Test Item Value Reference Range Interpretation Comments MCH (test code = MCH) 28.4 pg 27.0-31.0 [facility] HospitalKprhuieLPPVHOYYIQ9361-92-85 17:32:00 Test Item Value Reference Range Interpretation Comments RDW (test code = RDW) 13.5 11.5-14.5 [facility] HospitalJrnmthhDIIHMMELCN7846-15-52 17:32:00 Test Item Value Reference Range Interpretation Comments WBC (test code = WBC) 6.0 3.7-10.4 [facility] HospitalEnqqsraAEYOAMFXIM3553-46-22 17:32:00 Test Item Value Reference Range Interpretation Comments RBC (test code = RBC) 3.69 4.20-5.40 [facility] HospitalXzybrrhQSGHEENLZB0304-95-34 17:32:00 Test Item Value Reference Range Interpretation Comments Basophils # (test code 0.1 See_Comment [Aut omated message] The = Basophils #) system which generated this result tra nsmitted reference range : <=0.2. The reference r malinda was not used to int erpret this result as normal/abnormal . [facility] HospitalWetckxvOUXJDLLDAQ3958-81-46 17:32:00 Test Item Value Reference Range Interpretation Comments Lymphocytes (test code = Lymphocytes) 14.6 20.0-40.0 [facility] HospitalWkibrnvHTZCRMRNAL7503-96-09 17:32:00 Test Item Value Reference Range Interpretation Comments Segs-Bands # (test code = Segs-Bands #) 4.5 1.5-8.1 [facility] HospitalNcjcwndAAWELMTANE8855-14-05 17:32:00 Test Item Value Reference Range Interpretation Comments Monocytes (test code = Monocytes) 4.2 2.0-12.0 [facility] HospitalBysotyzQUHXEOVCAZ4756-59-51 17:32:00 Test Item Value Reference Range Interpretation Comments Basophils (test code = 0.9 See_Comment [Aut omated message] The Basophils) system which ge nerated this result tra nsmitted reference range : <=1.0. The reference r malinda was not used to int erpret this result as normal/abnormal . [facility] HospitalForlxnhUWPRYCSVJM6330-28-57 17:32:00 Test Item Value Reference Range Interpretation Comments Eosinophils # (test code 0.4 See_Comment [A utomated message] The = Eosinophils #) system whic h generated this result tra nsmitted reference range : <=0.5. The reference r malinda was not used to int erpret this result as normal/abnormal . [facility] HospitalSdcbbhtHWPFRKMWVI4166-60-07 17:32:00 Test Item Value Reference Range Interpretation Comments Monocytes # (test code 0.3 See_Comment [Aut omated message] The = Monocytes #) system which generated this result tra nsmitted reference range : <=0.8. The reference r malinda was not used to int erpret this result as normal/abnormal . [facility] HospitalHpllterQBJLVMEVMI2045-25-96 17:32:00 Test Item Value Reference Range Interpretation Comments Lymphocytes # (test code = Lymphocytes 0.9 1.0-5.5 #) [facility] HospitalXbnviwyFISFDREACX6570-47-96 17:32:00 Test Item Value Reference Range Interpretation Comments Segs (test code = Segs) 74.1 45.0-75.0 [facility] HospitalVakmkrtUNGSINXOXW6783-91-53 17:32:00 Test Item Value Reference Range Interpretation Comments Eosinophils (test code = 6.2 See_Comment [A utomated message] The Eosinophils) system which ge nerated this result tra nsmitted reference range : <=4.0. The reference r malinda was not used to int erpret this result as normal/abnormal . [facility] HospitalGdgdmvfVCSJWZUUCV7848-36-15 17:32:00 Test Item Value Reference Range Interpretation Comments MPV (test code = MPV) 6.7 7.4-10.4 [facility] HospitalTqslfpqSVXEEIOXZU3694-35-45 17:32:00 Test Item Value Reference Range Interpretation Comments Platelet (test code = Platelet) 300 133-450 [facility] HospitalCsohsiqVTQOSLYGNY9586-71-54 17:32:00 Test Item Value Reference Range Interpretation Comments Hct (test code = Hct) 31.2 36.0-48.0 [facility] HospitalNpqrabrSHBGSIVLDO4975-19-26 17:32:00 Test Item Value Reference Range Interpretation Comments Hgb (test code = Hgb) 10.5 12.0-16.0 [facility] HospitalHymucwmIBNSPMGREX9772-58-14 17:32:00 Test Item Value Reference Range Interpretation Comments MCV (test code = MCV) 84.5 80.0-98.0 [facility] HospitalAgbtfxsSIQHRXKLIA2924-18-31 17:32:00 Test Item Value Reference Range Interpretation Comments MCHC (test code = MCHC) 33.6 32.0-36.0 [facility] HospitalMegepqpZIXKAJZXQB3547-99-76 17:32:00 Test Item Value Reference Range Interpretation Comments MCH (test code = MCH) 28.4 pg 27.0-31.0 [facility] HospitalEqkewafFTXBUXDSOZ7187-00-69 17:32:00 Test Item Value Reference Range Interpretation Comments RDW (test code = RDW) 13.5 11.5-14.5 [facility] HospitalIivrqiuUQYYEJKNDO0492-54-78 17:32:00 Test Item Value Reference Range Interpretation Comments WBC (test code = WBC) 6.0 3.7-10.4 [facility] HospitalWrhxgpjDLSPEULFKF5632-32-44 17:32:00 Test Item Value Reference Range Interpretation Comments RBC (test code = RBC) 3.69 4.20-5.40 [facility] HospitalPuibdxfMQPVMSUIVR7352-51-60 17:32:00 Test Item Value Reference Range Interpretation Comments Basophils # (test code 0.1 See_Comment [Aut omated message] The = Basophils #) system which generated this result tra nsmitted reference range : <=0.2. The reference r malinda was not used to int erpret this result as normal/abnormal . [facility] HospitalVowvklwKNNTWTUNRC7631-78-68 17:32:00 Test Item Value Reference Range Interpretation Comments Lymphocytes (test code = Lymphocytes) 14.6 20.0-40.0 [facility] HospitalPxbmkkjYSXKOTPABF5680-26-55 17:32:00 Test Item Value Reference Range Interpretation Comments Segs-Bands # (test code = Segs-Bands #) 4.5 1.5-8.1 [facility] HospitalOxoqswwTVJHCVRJUL9293-68-62 17:32:00 Test Item Value Reference Range Interpretation Comments Monocytes (test code = Monocytes) 4.2 2.0-12.0 [facility] HospitalKkerhbqVMFDGXIVUI6653-96-12 17:32:00 Test Item Value Reference Range Interpretation Comments Basophils (test code = 0.9 See_Comment [Aut omated message] The Basophils) system which ge nerated this result tra nsmitted reference range : <=1.0. The reference r malinda was not used to int erpret this result as normal/abnormal . [facility] HospitalBidacgrLJCLBMVOPB4567-86-84 17:32:00 Test Item Value Reference Range Interpretation Comments Eosinophils # (test code 0.4 See_Comment [A utomated message] The = Eosinophils #) system whic h generated this result tra nsmitted reference range : <=0.5. The reference r malinda was not used to int erpret this result as normal/abnormal . [facility] HospitalFapummbPQDILWPLSS4512-38-53 17:32:00 Test Item Value Reference Range Interpretation Comments Monocytes # (test code 0.3 See_Comment [Aut omated message] The = Monocytes #) system which generated this result tra nsmitted reference range : <=0.8. The reference r malinda was not used to int erpret this result as normal/abnormal . [facility] HospitalWuzjrktUDWQDODTUN7128-84-82 17:32:00 Test Item Value Reference Range Interpretation Comments Lymphocytes # (test code = Lymphocytes 0.9 1.0-5.5 #) [facility] HospitalPkatelwXNQLTLPKSN8700-66-18 17:32:00 Test Item Value Reference Range Interpretation Comments Segs (test code = Segs) 74.1 45.0-75.0 [facility] HospitalWwlndphWPLSOPHDSG2216-75-70 17:32:00 Test Item Value Reference Range Interpretation Comments Eosinophils (test code = 6.2 See_Comment [A utomated message] The Eosinophils) system which ge nerated this result tra nsmitted reference range : <=4.0. The reference r malinda was not used to int erpret this result as normal/abnormal . [facility] HospitalQkpkoneBSFHTIUOXC1250-32-80 17:32:00 Test Item Value Reference Range Interpretation Comments MPV (test code = MPV) 6.7 7.4-10.4 [facility] HospitalBupenfzVQAWNTHXGY6714-34-18 17:32:00 Test Item Value Reference Range Interpretation Comments Platelet (test code = Platelet) 300 133-450 [facility] HospitalWrmheueBDKVXWVVIX8198-95-23 17:32:00 Test Item Value Reference Range Interpretation Comments Hct (test code = Hct) 31.2 36.0-48.0 [facility] HospitalFkfbhszKUOIQMQJYS2201-55-30 17:32:00 Test Item Value Reference Range Interpretation Comments Hgb (test code = Hgb) 10.5 12.0-16.0 [facility] HospitalDhxcigwCIIDDIZVZG8993-00-03 17:32:00 Test Item Value Reference Range Interpretation Comments MCV (test code = MCV) 84.5 80.0-98.0 [facility] HospitalAbofeaaFLUDPUQWSL3417-23-39 17:32:00 Test Item Value Reference Range Interpretation Comments MCHC (test code = MCHC) 33.6 32.0-36.0 [facility] HospitalBdybfwwAUUZDOGDWI7565-80-44 17:32:00 Test Item Value Reference Range Interpretation Comments MCH (test code = MCH) 28.4 pg 27.0-31.0 [facility] HospitalTuqwcmrEYELITBFSZ1470-46-53 17:32:00 Test Item Value Reference Range Interpretation Comments RDW (test code = RDW) 13.5 11.5-14.5 [facility] HospitalYdhtbxwUNUPQFIPGO8755-29-06 17:32:00 Test Item Value Reference Range Interpretation Comments WBC (test code = WBC) 6.0 3.7-10.4 [facility] HospitalTvznvvhOAWLLTHFNF1490-85-45 17:32:00 Test Item Value Reference Range Interpretation Comments RBC (test code = RBC) 3.69 4.20-5.40 [facility] SPNWLJY3488-43-26 11:02:00 Test Item Value Reference Range Interpretation Comments Antibody Scrn (test Negative (04/01/16 6:02 code = Antibody Scrn) AM) [facility] [id number] 11:02:00 Test Item Value Reference Range Interpretation Comments ABO/Rh (test code = ABO/Rh) A POS [facility] NYHADQS1699-10-60 11:02:00 Test Item Value Reference Range Interpretation Comments Antibody Scrn (test Negative (04/01/16 6:02 code = Antibody Scrn) AM) [facility] SystemMyerRoot4 CLVWUZL2563-87-74 11:02:00 Test Item Value Reference Range Interpretation Comments ABO/Rh (test code = ABO/Rh) A POS [facility] [employer] [id number] 11:02:00 Test Item Value Reference Range Interpretation Comments Antibody Scrn (test Negative (04/01/16 6:02 code = Antibody Scrn) AM) [facility] KBISBTT7115-19-01 11:02:00 Test Item Value Reference Range Interpretation Comments ABO/Rh (test code = ABO/Rh) A POS [facility] [employer] [id number] 21:25:00 Test Item Value Reference Range Interpretation Comments Albumin Lvl (test code = Albumin Lvl) 3.5 3.5-5.0 [facility] [employer] [id number] 21:25:00 Test Item Value Reference Range Interpretation Comments ALT (test code = ALT) 28 See_Comment [Auto mated message] The system which ge nerated this result transmit james reference range : <=65. The reference range was not used to interpr et this result as mary l/abnormal. [facility] [employer] [id number] 21:25:00 Test Item Value Reference Range Interpretation Comments AST (test code = AST) 22 See_Comment [Auto mated message] The system which ge nerated this result transmit james reference range : <=37. The reference range was not used to interpr et this result as mary l/abnormal. [facility] [employer] [id number] 21:25:00 Test Item Value Reference Range Interpretation Comments Total Protein (test code = Total 6.2 6.4-8.4 Protein) [facility] [employer] [id number] 21:25:00 Test Item Value Reference Range Interpretation Comments Alk Phos (test code = Alk Phos) 37 39-136 [facility] [employer] [id number] 21:25:00 Test Item Value Reference Range Interpretation Comments Bili Total (test code = Bili Total) 0.5 0.2-1.3 [facility] [employer] [id number] 21:25:00 Test Item Value Reference Range Interpretation Comments Globulin (test code = Globulin) 2.7 2.7-4.2 [facility] [employer] [id number] 21:25:00 Test Item Value Reference Range Interpretation Comments A/G Ratio (test code = A/G Ratio) 1.3 0.7-1.[address] [facility]2016-09-26 21:25:00 Test Item Value Reference Range Interpretation Comments B/C Ratio (test code = B/C Ratio) 30 6-25 [facility] HospitalJuisegaOILNLUUNVR0806-68-31 21:25:00 Test Item Value Reference Range Interpretation Comments Segs-Bands # (test code = Segs-Bands #) 4.3 1.5-8.1 [facility] HospitalSryrzipZWGVRUFDGF8073-01-81 21:25:00 Test Item Value Reference Range Interpretation Comments Monocytes # (test code 0.7 See_Comment [Aut omated message] The = Monocytes #) system which generated this result tra nsmitted reference range : <=0.8. The reference r malinda was not used to int erpret this result as normal/abnormal . [facility] HospitalEwilbihCCYECEDUEI2649-32-08 21:25:00 Test Item Value Reference Range Interpretation Comments Lymphocytes # (test code = Lymphocytes 1.3 1.0-5.5 #) [facility] HospitalXrbixkjKQCBRANOEJ6458-16-71 21:25:00 Test Item Value Reference Range Interpretation Comments Basophils # (test code 0.1 See_Comment [Aut omated message] The = Basophils #) system which generated this result tra nsmitted reference range : <=0.2. The reference r malinda was not used to int erpret this result as normal/abnormal . [facility] HospitalBvkpiweRASVKXOFDV9444-81-38 21:25:00 Test Item Value Reference Range Interpretation Comments Eosinophils # (test code 1.1 See_Comment [A utomated message] The = Eosinophils #) system [facility] generated this result tra nsmitted reference range : <=0.5. The reference r malinda was not used to int erpret this result as normal/abnormal . [facility] HospitalMvtuungQVSGZMJRIY3882-60-22 21:25:00 Test Item Value Reference Range Interpretation Comments Segs (test code = Segs) 57.3 45.0-75.0 [facility] HospitalYastvdeOSIJPYQSDU1719-14-26 21:25:00 Test Item Value Reference Range Interpretation Comments Lymphocytes (test code = Lymphocytes) 16.9 20.0-40.0 [facility] HospitalJpghkqnMULSGKFLTL4377-57-99 21:25:00 Test Item Value Reference Range Interpretation Comments Eosinophils (test code = 14.8 See_Comment [A utomated message] The Eosinophils) system which ge nerated this result tra nsmitted reference range : <=4.0. The reference r malinda was not used to int erpret this result as normal/abnormal . [facility] HospitalSrrnxroPDRETISPXH8361-43-94 21:25:00 Test Item Value Reference Range Interpretation Comments Basophils (test code = 1.4 See_Comment [Aut omated message] The Basophils) system which ge nerated this result tra nsmitted reference range : <=1.0. The reference r malinda was not used to int erpret this result as normal/abnormal . [facility] HospitalKbeordrCSIONSAENO1897-01-85 21:25:00 Test Item Value Reference Range Interpretation Comments Monocytes (test code = Monocytes) 9.6 2.0-12.0 [facility] HospitalXwgxaebCJBEHHDCFW1134-45-58 21:25:00 Test Item Value Reference Range Interpretation Comments Ly30 (test code = 8.9 See_Comment [Automate d message] The Ly30) system which ge nerated this result transmit james reference range : <=7.5. The reference range was not used to interpr et this result as mary l/abnormal. [facility] HospitalMsqfpovPBINTHAFBV5092-37-97 21:25:00 Test Item Value Reference Range Interpretation Comments G-value (test code = G-value) 13.2 4.5-11.0 [facility] HospitalBwqhcfeKFGVAPXUVA8333-88-33 21:25:00 Test Item Value Reference Range Interpretation Comments TEG Data (test code = See Note (03/28/16 4:25 TEG Data) PM) [facility] HospitalGibdkofJBCVUUQEEL1040-64-69 21:25:00 Test Item Value Reference Range Interpretation Comments Coag Index (test code 4.2 See_Comment [Auto mated message] The = Coag Index) system which g enerated this result transmit james reference range : <=3.0. The reference range was not used to interpr et this result as mary l/abnormal. [facility] HospitalXedpfnmAXSEVWYFYU4822-51-15 21:25:00 Test Item Value Reference Range Interpretation Comments Angle (test code = Angle) 76.9 degrees 53.0-72.0 [facility] HospitalPhnkzqeZNMIBFLDCI0866-37-78 21:25:00 Test Item Value Reference Range Interpretation Comments R-time (test code = R-time) 3.7 min 5.0-10.0 [facility]jjpwzfZTXGQSWUWN2430-96-14 21:25:00 Test Item Value Reference Range Interpretation Comments Max Amp (test code = Max Amp) 72.5 mm 50.0-70.0 [facility] HospitalRisipubSLKEZVZGXW0327-11-53 21:25:00 Test Item Value Reference Range Interpretation Comments K-time (test code = K-time) 0.8 min 1.0-3.0 [facility] HospitalSgzzjapHOHJHFYVKT5947-96-48 21:25:00 Test Item Value Reference Range Interpretation Comments TEG Interp (test Thrombelastograph results code = TEG show shortened value of R Interp) and increased values of both Angle Alpha and MA. These findings are suggestive of platelet and enzymatic hypercoagulation. LY30 is also increased, consistent with hyperfibrinolysis. For pathologic fibrinolysis, antifibrinolytics are contraindicated since microvascular thrombosis may be exacerbated. The TEG parameters are suggestive of early phase of DIC. Monitor for DIC with DIC panel may be indicated. CPT:82799 [facility] HospitalLnotksgPWUZATGBUE6281-98-88 21:25:00 Test Item Value Reference Range Interpretation Comments Hgb (test code = Hgb) 11.8 12.0-16.0 [facility] HospitalWsuvlsjAAUJMOOPUA1638-61-88 21:25:00 Test Item Value Reference Range Interpretation Comments Hct (test code = Hct) 35.6 36.0-48.0 [facility] HospitalZsctsrcJNGENFHCHQ9683-21-56 21:25:00 Test Item Value Reference Range Interpretation Comments MCHC (test code = MCHC) 33.3 32.0-36.0 [facility] HospitalTfaoljlMHJKPEVBXE4223-20-04 21:25:00 Test Item Value Reference Range Interpretation Comments MPV (test code = MPV) 7.6 7.4-10.4 [facility] HospitalJxguxrmGZTYCELWKS3840-91-02 21:25:00 Test Item Value Reference Range Interpretation Comments RDW (test code = RDW) 13.7 11.5-14.5 [facility] HospitalOmogwsxLOJZTLKWHN5428-06-72 21:25:00 Test Item Value Reference Range Interpretation Comments Platelet (test code = Platelet) 298 133-450 [facility] HospitalXoycnqlWPLGRVVMMI6073-62-06 21:25:00 Test Item Value Reference Range Interpretation Comments MCV (test code = MCV) 85.0 80.0-98.0 [facility]maJwwcvyoSTIKBRGWKP0325-19-21 21:25:00 Test Item Value Reference Range Interpretation Comments MCH (test code = MCH) 28.3 pg 27.0-31.0 [facility] AlmaWljtneaWDCNULENBK0166-59-36 21:25:00 Test Item Value Reference Range Interpretation Comments WBC (test code = WBC) 7.5 3.7-10.4 [facility] AlmaVowiawmIIKCLFVJGJ6434-03-29 21:25:00 Test Item Value Reference Range Interpretation Comments RBC (test code = RBC) 4.18 4.20-5.40 [facility] SPEABPPDQ2135-48-69 21:25:00 Test Item Value Reference Range Interpretation Comments Hgb A1C (test code = Hgb A1C) 5.2 [facility] [id number] 21:25:00 Test Item Value Reference Range Interpretation Comments Albumin Lvl (test code = Albumin Lvl) 3.5 3.5-5.[address] [facility]2016-09-26 21:25:00 Test Item Value Reference Range Interpretation Comments ALT (test code = ALT) 28 See_Comment [Auto mated message] The system which ge nerated this result transmit james reference range : <=65. The reference range was not used to interpr et this result as mary l/abnormal. [facility]Call[facility] [id number] 21:25:00 Test Item Value Reference Range Interpretation Comments AST (test code = AST) 22 See_Comment [Auto mated message] The system which ge nerated this result transmit james reference range : <=37. The reference range was not used to interpr et this result as mary l/abnormal. [facility]Call[facility] [id number] 21:25:00 Test Item Value Reference Range Interpretation Comments Total Protein (test code = Total 6.2 6.4-8.4 Protein) [facility] [id number] 21:25:00 Test Item Value Reference Range Interpretation Comments Alk Phos (test code = Alk Phos) 37 39-[address] [facility]2016-09-26 21:25:00 Test Item Value Reference Range Interpretation Comments Bili Total (test code = Bili Total) 0.5 0.2-1.3 [facility] [id number] 21:25:00 Test Item Value Reference Range Interpretation Comments Globulin (test code = Globulin) 2.7 2.7-4.[address] [facility]2016-09-26 21:25:00 Test Item Value Reference Range Interpretation Comments A/G Ratio (test code = A/G Ratio) 1.3 0.7-1.[address] [facility]2016-09-26 21:25:00 Test Item Value Reference Range Interpretation Comments B/C Ratio (test code = B/C Ratio) 30 6-25 [facility] HospitalLcjkyjlSTNICLRQRQ2543-79-28 21:25:00 Test Item Value Reference Range Interpretation Comments Segs-Bands # (test code = Segs-Bands #) 4.3 1.5-8.1 [facility] HospitalQdppanoKCVFGXOWDE2785-21-96 21:25:00 Test Item Value Reference Range Interpretation Comments Monocytes # (test code 0.7 See_Comment [Aut omated message] The = Monocytes #) system which generated this result tra nsmitted reference range : <=0.8. The reference r malinda was not used to int erpret this result as normal/abnormal . [facility] HospitalBhcgikhJBVIRDBQFS2789-17-70 21:25:00 Test Item Value Reference Range Interpretation Comments Lymphocytes # (test code = Lymphocytes 1.3 1.0-5.5 #) [facility] HospitalWwogcqiKKNBLRIBSU3081-62-36 21:25:00 Test Item Value Reference Range Interpretation Comments Basophils # (test code 0.1 See_Comment [Aut omated message] The = Basophils #) system which generated this result tra nsmitted reference range : <=0.2. The reference r malinda was not used to int erpret this result as normal/abnormal . [facility] HospitalDjwhpocOYERWMBMWQ2545-95-33 21:25:00 Test Item Value Reference Range Interpretation Comments Eosinophils # (test code 1.1 See_Comment [A utomated message] The = Eosinophils #) system whic h generated this result tra nsmitted reference range : <=0.5. The reference r malinda was not used to int erpret this result as normal/abnormal . [facility] HospitalBcftrcdEYDTYUVOJC7459-59-30 21:25:00 Test Item Value Reference Range Interpretation Comments Segs (test code = Segs) 57.3 45.0-75.0 [facility] HospitalHivwzpvMRMXSQGNKG1946-61-83 21:25:00 Test Item Value Reference Range Interpretation Comments Lymphocytes (test code = Lymphocytes) 16.9 20.0-40.0 [facility] HospitalLocscbaXJZBPHXRHP9099-17-50 21:25:00 Test Item Value Reference Range Interpretation Comments Eosinophils (test code = 14.8 See_Comment [A utomated message] The Eosinophils) system which ge nerated this result tra nsmitted reference range : <=4.0. The reference r malinda was not used to int erpret this result as normal/abnormal . [facility] HospitalWaupwygOKABXLYTON2486-32-65 21:25:00 Test Item Value Reference Range Interpretation Comments Basophils (test code = 1.4 See_Comment [Aut omated message] The Basophils) system which ge nerated this result tra nsmitted reference range : <=1.0. The reference r malinda was not used to int erpret this result as normal/abnormal . [facility] HospitalLtljmefQALCCHVNLT3445-04-19 21:25:00 Test Item Value Reference Range Interpretation Comments Monocytes (test code = Monocytes) 9.6 2.0-12.0 [facility] HospitalUyrvfjxCOMTRZUWAJ2902-95-46 21:25:00 Test Item Value Reference Range Interpretation Comments Ly30 (test code = 8.9 See_Comment [Automate d message] The Ly30) system which ge nerated this result transmit james reference range : <=7.5. The reference range was not used to interpr et this result as mary l/abnormal. [facility] HospitalJfftadzGUZADGIXBS5489-09-81 21:25:00 Test Item Value Reference Range Interpretation Comments G-value (test code = G-value) 13.2 4.5-11.0 [facility] HospitalOstbojiCYHUBVVPQI6101-87-53 21:25:00 Test Item Value Reference Range Interpretation Comments TEG Data (test code = See Note (03/28/16 4:25 TEG Data) PM) [facility] HospitalHivfjavKTQSGXNMXD7019-73-23 21:25:00 Test Item Value Reference Range Interpretation Comments Coag Index (test code 4.2 See_Comment [Auto mated message] The = Coag Index) system which g enerated this result transmit james reference range : <=3.0. The reference range was not used to interpr et this result as mary l/abnormal. [facility] HospitalYgjwiteFXKOQBJZML3759-31-29 21:25:00 Test Item Value Reference Range Interpretation Comments Angle (test code = Angle) 76.9 degrees 53.0-72.0 [facility] HospitalOsfdiqtMZJMCNCLMM0338-30-78 21:25:00 Test Item Value Reference Range Interpretation Comments R-time (test code = R-time) 3.7 min 5.0-10.0 [facility] HospitalIbrkvyyIDPKPRFPUY8455-07-24 21:25:00 Test Item Value Reference Range Interpretation Comments Max Amp (test code = Max Amp) 72.5 mm 50.0-70.[address] [facility]2016-09-26 21:25:00 Test Item Value Reference Range Interpretation Comments Albumin Lvl (test code = Albumin Lvl) 3.5 3.5-5.[address] [facility]2016-09-26 21:25:00 Test Item Value Reference Range Interpretation Comments ALT (test code = ALT) 28 See_Comment [Auto mated message] The system which ge nerated this result transmit james reference range : <=65. The reference range was not used to interpr et this result as mary l/abnormal. [facility]2016-09-26 21:25:00 Test Item Value Reference Range Interpretation Comments AST (test code = AST) 22 See_Comment [Auto mated message] The system which ge nerated this result transmit james reference range : <=37. The reference range was not used to interpr et this result as mary l/abnormal. [place] [id number] 21:25:00 Test Item Value Reference Range Interpretation Comments Total Protein (test code = Total 6.2 6.4-8.4 Protein) [place] [id number] 21:25:00 Test Item Value Reference Range Interpretation Comments Alk Phos (test code = Alk Phos) 37 39-[address] [facility]2016-09-26 21:25:00 Test Item Value Reference Range Interpretation Comments Bili Total (test code = Bili Total) 0.5 0.2-1.3 [place] [id number] 21:25:00 Test Item Value Reference Range Interpretation Comments Globulin (test code = Globulin) 2.7 2.7-4.2 [place] [id number] 21:25:00 Test Item Value Reference Range Interpretation Comments A/G Ratio (test code = A/G Ratio) 1.3 0.7-1.6 [facility] HospitalQbuwxhrHPUVOVUSAS5255-46-31 21:25:00 Test Item Value Reference Range Interpretation Comments K-time (test code = K-time) 0.8 min 1.0-3.[address] [facility]2016-09-26 21:25:00 Test Item Value Reference Range Interpretation Comments B/C Ratio (test code = B/C Ratio) 30 6-25 [facility] HospitalEwkewdwGDHAKMBQYT7634-21-92 21:25:00 Test Item Value Reference Range Interpretation Comments Segs-Bands # (test code = Segs-Bands #) 4.3 1.5-8.1 [facility] HospitalJdpttdvLXVKHJTAHB0179-15-88 21:25:00 Test Item Value Reference Range Interpretation Comments Monocytes # (test code 0.7 See_Comment [Aut omated message] The = Monocytes #) system which generated this result tra nsmitted reference range : <=0.8. The reference r malinda was not used to int erpret this result as normal/abnormal . [facility] HospitalQpugaisXOENLZWDVV5250-54-86 21:25:00 Test Item Value Reference Range Interpretation Comments Lymphocytes # (test code = Lymphocytes 1.3 1.0-5.5 #) [facility] HospitalEagakweQYXUAAWEWA3545-06-59 21:25:00 Test Item Value Reference Range Interpretation Comments Basophils # (test code 0.1 See_Comment [Aut omated message] The = Basophils #) system which generated this result tra nsmitted reference range : <=0.2. The reference r malinda was not used to int erpret this result as normal/abnormal . [facility] HospitalFsbumbgQOQQBGGDDW5772-54-97 21:25:00 Test Item Value Reference Range Interpretation Comments Eosinophils # (test code 1.1 See_Comment [A utomated message] The = Eosinophils #) system whic h generated this result tra nsmitted reference range : <=0.5. The reference r malinda was not used to int erpret this result as normal/abnormal . [facility] HospitalJuoynllDGUHXFAFBW9688-18-45 21:25:00 Test Item Value Reference Range Interpretation Comments Segs (test code = Segs) 57.3 45.0-75.0 [facility] HospitalMpaqrxgWHILWFBNWX6153-69-32 21:25:00 Test Item Value Reference Range Interpretation Comments Lymphocytes (test code = Lymphocytes) 16.9 20.0-40.0 [facility] HospitalAgclrpbZYRATNBWBD0354-85-09 21:25:00 Test Item Value Reference Range Interpretation Comments Eosinophils (test code = 14.8 See_Comment [A utomated message] The Eosinophils) system which ge nerated this result tra nsmitted reference range : <=4.0. The reference r malinda was not used to int erpret this result as normal/abnormal . [facility] HospitalMqdkhudDVOILUJYSQ2347-80-50 21:25:00 Test Item Value Reference Range Interpretation Comments Basophils (test code = 1.4 See_Comment [Aut omated message] The Basophils) system which ge nerated this result tra nsmitted reference range : <=1.0. The reference r malinda was not used to int erpret this result as normal/abnormal . [facility] HospitalNykkctvZESSJZYGNV4636-22-74 21:25:00 Test Item Value Reference Range Interpretation Comments TEG Interp (test Thrombelastograph results code = TEG show shortened value of R Interp) and increased values of both Angle Alpha and MA. These findings are suggestive of platelet and enzymatic hypercoagulation. LY30 is also increased, consistent with hyperfibrinolysis. For pathologic fibrinolysis, antifibrinolytics are contraindicated since microvascular thrombosis may be exacerbated. The TEG parameters are suggestive of early phase of DIC. Monitor for DIC with DIC panel may be indicated. CPT:27988 [facility] HospitalMwirrtuCYXNCHIJCF2958-87-84 21:25:00 Test Item Value Reference Range Interpretation Comments Monocytes (test code = Monocytes) 9.6 2.0-12.0 [facility] Hospit[id number] 21:25:00 Test Item Value Reference Range Interpretation Comments Ly30 (test code = 8.9 See_Comment [Automate d message] The Ly30) system which ge nerated this result transmit james reference range : <=7.5. The reference range was not used to interpr et this result as mary l/abnormal. [facility] HospitalFuumstrMFGNTYZZIK1025-11-56 21:25:00 Test Item Value Reference Range Interpretation Comments G-value (test code = G-value) 13.2 4.5-11.0 [facility] HospitalNmictltAGZQRWIOWI2908-67-18 21:25:00 Test Item Value Reference Range Interpretation Comments TEG Data (test code = See Note (03/28/16 4:25 TEG Data) PM) [facility] HospitalHdbsuysXLHXZAMEHF2870-78-76 21:25:00 Test Item Value Reference Range Interpretation Comments Coag Index (test code 4.2 See_Comment [Auto mated message] The = Coag Index) system which g enerated this result transmit james reference range : <=3.0. The reference range was not used to interpr et this result as mary l/abnormal. [facility] HospitalLsebnjaYYLJXLMFGA2747-51-27 21:25:00 Test Item Value Reference Range Interpretation Comments Angle (test code = Angle) 76.9 degrees 53.0-72.0 [facility] HospitalXmxzzuqYIXMCTHJSC5486-96-79 21:25:00 Test Item Value Reference Range Interpretation Comments R-time (test code = R-time) 3.7 min 5.0-10.0 [facility] HospitalErpvzgpEQAJREQVJW8365-95-47 21:25:00 Test Item Value Reference Range Interpretation Comments Max Amp (test code = Max Amp) 72.5 mm 50.0-70.0 [facility] HospitalVtynofoHVEWRMLQPZ5283-13-54 21:25:00 Test Item Value Reference Range Interpretation Comments K-time (test code = K-time) 0.8 min 1.0-3.0 [facility] HospitalIwgodyzNKALPZUIAO6205-64-79 21:25:00 Test Item Value Reference Range Interpretation Comments TEG Interp (test Thrombelastograph results code = TEG show shortened value of R Interp) and increased values of both Angle Alpha and MA. These findings are suggestive of platelet and enzymatic hypercoagulation. LY30 is also increased, consistent with hyperfibrinolysis. For pathologic fibrinolysis, antifibrinolytics are contraindicated since microvascular thrombosis may be exacerbated. The TEG parameters are suggestive of early phase of DIC. Monitor for DIC with DIC panel may be indicated. CPT:27650 [facility] HospitalEueljwzKTBJYLHPFL1806-87-99 21:25:00 Test Item Value Reference Range Interpretation Comments Hgb (test code = Hgb) 11.8 12.0-16.0 [facility] HospitalKpxjaakYZVBBCHHFH5966-10-32 21:25:00 Test Item Value Reference Range Interpretation Comments Hgb (test code = Hgb) 11.8 12.0-16.0 [facility] HospitalXsbxgvoXREJXZKOBH7909-43-31 21:25:00 Test Item Value Reference Range Interpretation Comments Hct (test code = Hct) 35.6 36.0-48.0 [facility]maDjqiwcwHTNLDAZEYW9187-13-11 21:25:00 Test Item Value Reference Range Interpretation Comments MCHC (test code = MCHC) 33.3 32.0-36.0 [facility] AlmaExvbxqwEOAWLWGQET3551-07-91 21:25:00 Test Item Value Reference Range Interpretation Comments MPV (test code = MPV) 7.6 7.4-10.4 [facility] AlmaMccyhwfMYLQBSULAO1489-75-74 21:25:00 Test Item Value Reference Range Interpretation Comments RDW (test code = RDW) 13.7 11.5-14.5 [facility] HospitalMupqkseLAIRCLKIDB2664-05-05 21:25:00 Test Item Value Reference Range Interpretation Comments Platelet (test code = Platelet) 298 133-450 [facility] HospitalCdtycyiEYLUJIHHLR2484-98-23 21:25:00 Test Item Value Reference Range Interpretation Comments MCV (test code = MCV) 85.0 80.0-98.0 [facility] AlmaIxjmepiPKMXBAUQAP8436-47-12 21:25:00 Test Item Value Reference Range Interpretation Comments MCH (test code = MCH) 28.3 pg 27.0-31.0 [facility] HospitalTwsivuuTEJIKHIPHL7895-87-39 21:25:00 Test Item Value Reference Range Interpretation Comments WBC (test code = WBC) 7.5 3.7-10.4 [facility] AlmaMvnnouiTOFUHDGSZH1637-57-73 21:25:00 Test Item Value Reference Range Interpretation Comments RBC (test code = RBC) 4.18 4.20-5.40 [facility] AlmaVplctkqJBCATIROOG6945-40-79 21:25:00 Test Item Value Reference Range Interpretation Comments Hct (test code = Hct) 35.6 36.0-48.0 [facility] AMANNNIRS6740-15-65 21:25:00 Test Item Value Reference Range Interpretation Comments Hgb A1C (test code = Hgb A1C) 5.2 [facility] AlmaAfqwaixXOGWORMLZP3572-38-59 21:25:00 Test Item Value Reference Range Interpretation Comments MCHC (test code = MCHC) 33.3 32.0-36.0 [facility] HospitalZcuxgtlHXFGONBDTA3276-79-61 21:25:00 Test Item Value Reference Range Interpretation Comments MPV (test code = MPV) 7.6 7.4-10.4 [facility] AlmaKrocsaiIQMHSHJCHK5513-15-84 21:25:00 Test Item Value Reference Range Interpretation Comments RDW (test code = RDW) 13.7 11.5-14.5 [facility] AlmaPkmecadJYVPDTNYJC0405-10-84 21:25:00 Test Item Value Reference Range Interpretation Comments Platelet (test code = Platelet) 298 133-450 [facility] AlmaXrlylzuNIVZYAUZTD1723-01-33 21:25:00 Test Item Value Reference Range Interpretation Comments MCV (test code = MCV) 85.0 80.0-98.0 [facility] AlmaBviutzqITUDJTCOOS8726-36-80 21:25:00 Test Item Value Reference Range Interpretation Comments MCH (test code = MCH) 28.3 pg 27.0-31.0 [facility] AlmaHqnvwtmJGDMRQDHSE0386-97-49 21:25:00 Test Item Value Reference Range Interpretation Comments WBC (test code = WBC) 7.5 3.7-10.4 [facility] AlmaTjbljnaWFLMDXFMCA4910-77-94 21:25:00 Test Item Value Reference Range Interpretation Comments RBC (test code = RBC) 4.18 4.20-5.40 [facility] WHCUHNDSA4113-72-14 21:25:00 Test Item Value Reference Range Interpretation Comments Hgb A1C (test code = Hgb A1C) 5.2 [facility]
[2022-08-18] MEDS ORDERED: MAGNESIUM SULFATE 1 gm IVPB 1 GM/100 ML BAG IV ONE (16:59)
[2022-08-18] MEDS ORDERED: METOPROLOL TAR 25 MG TAB ONE (16:59)
[2022-08-18 17:00] LABS: Absolute Lymphocytes (CBC) 1.3 K/uL (0.7-4.9); Hematocrit 36.4 % (36.0-45.0); Lymphocytes % 9.1 % (15.3-44.8); MCV 88.7 fL (80-100); MPV 6.7 fL (7.6-11.3)
[2022-08-18 17:04] LABS: Protime INR 1.18
[2022-08-18 17:27] LABS: Albumin 2.8 g/dL (3.4-5.0); Bilirubin Direct 0.2 mg/dL (0-0.2); Bilirubin Total 0.6 mg/dL (0.2-1.0); Magnesium 2.1 mg/dL (1.6-2.4); Potassium 3.9 mmol/L (3.5-5.1); Troponin High Sensitivity 24.1 pg/mL (<58.9)
[2022-08-18 17:44] LABS: SARS-COV-2 RT PCR NEGATIVE (NEGATIVE)
--- NOTE | 2022-08-18 18:29 | RAD REPORT ---
EXAM DESCRIPTION: CT - Head Brain Wo Cont - 08/18/2022 6:20 pm CLINICAL HISTORY: Alteration of awareness/confusion COMPARISON: 2010 TECHNIQUE: Computed axial tomography of the head was obtained. IV contrast was not requested. All CT scans are performed using dose optimization technique as appropriate and may include automated exposure control or mA/KV adjustment according to patient size. FINDINGS: An intracranial bleed is not seen The ventricles are normal in caliber No extra-axial fluid collection is noted. Mild low-density areas within periventricular, deep and subcortical white matter likely represent is chemic changes secondary to small vessel disease. Fluid within the sinuses/ mastoids is not seen. IMPRESSION: No acute intracranial abnormality is seen If patient's symptoms persist MRI of the brain would be recommended
--- NOTE | 2022-08-18 18:35 | RAD REPORT ---
EXAM DESCRIPTION: CT - Chest For Pe Angio - 08/18/2022 6:21 pm CLINICAL HISTORY: sob COMPARISON: None. TECHNIQUE: Dynamically enhanced axial 3 mm thick images of the chest were obtained during administra tion of 100 mL Isovue 370 IV contrast. Coronal and oblique reconstruction images were generated and r eviewed. Exam utilizes a protocol for optimal evaluation of pulmonary arterial tree. Maximum intensity projections 3D imaging was utilized All CT scans are performed using dose optimization technique as appropriate and may include automated exposure control or mA/KV adjustment according to patient size. FINDINGS: A pulmonary embolus is not seen. A thoracic aortic aneurysm is not noted. Small bilateral pleural effusions. No pericardial fusion. Mild left upper lobe consolidation. IMPRESSION: Negative for a pulmonary embolism. Mild left upper lobe pneumonia
--- NOTE | 2022-08-18 18:41 | RAD REPORT ---
EXAM DESCRIPTION: [place] Single View08/18/2022 5:31 pm CLINICAL HISTORY: sob COMPARISON: 2020 FINDINGS: Upper lobe vessels are prominent indicative of pulmonary venous hypertension Mild left upper lobe opacity better seen on the CT chest same date likely pneumonia Heart is moderately enlarged Patient is in a poor degree of inspiration resulting in crowding of the pulmonary vessels
[2022-08-18] MEDS ORDERED: CEFTRIAXONE 1000 MG/VIAL ONE (18:55)
--- NOTE | 2022-08-18 19:25 | EDPHYS ---
Physician Documentation [facility] Name: Little Stafford Age: 77 yrs Sex: Female : 1945 Arrival Date: 08/18/2022 Time: 16:37 Bed 5 Private MD: ED Physician Deejay Pacheco HPI: 08/18 16:40 This 77 yrs old Female presents to ER via EMS with complaints of Shortness Of Breath. m 16:40 The patient has shortness of breath at rest. Onset: The symptoms/episode began/occurred jmm gradually, 2 day(s) ago. This is a 77-year-old female with a history of CHF, chronic pain, hyperlipidemia the presents emerged department with complaints of confusion per . Patient states she has been coughing with congestion over the past 2 days. EMS states the patient's heart rate was very high. Given IV fluids which decreased the heart rate. Patient denies any chest pain, abdominal pain. Historical: - Allergies: 16:40 Codeine; ss - PMHx: 16:40 CHF; Chronic pain; High Cholesterol; Gout; GERD; DVT Left leg; Depression; ss Hyperlipidemia; restless leg syndrome; Hypertension; - Immunization history:: Adult Immunizations unknown. - Social history:: Smoking status: unknown. ROS: 16:40 Constitutional: Negative for fever, chills, and weight loss. jmm 16:40 Cardiovascular: Negative for chest pain, palpitations, and edema. 16:40 Respiratory: Positive for cough. 16:40 Neuro: Positive for altered mental status. 16:40 All other systems are negative. Exam: 16:40 Head/Face: atraumatic. Eyes: EOMI, no conjunctival erythema appreciated ENT: Moist jm Mucus Membranes Neck: Trachea midline, Supple Chest/axilla: Normal chest wall appearance and motion. Cardiovascular: Regular rate and rhythm. No edema appreciated Respiratory: Normal respirations, no respiratory distress appreciated Abdomen/GI: Non distended Back: Normal ROM Skin: General appearance color normal 16:40 Constitutional: The patient appears in no acute distress, alert, awake. 16:40 Musculoskeletal/extremity: ROM: intact in all extremities. 16:40 Skin: Appearance: Color: normal in color. 16:40 Neuro: Orientation: to person, place. 16:40 Psych: Behavior/mood is pleasant, cooperative. Vital Signs: 16:37 BP 126 / 78; Pulse 144; Resp 18; Temp 97.8(O); Pulse Ox 94% on R/A; ss 17:00 BP 137 / 81; Pulse 131; Resp 18; Pulse Ox 96% ; bp 18:00 BP 132 / 71; Pulse 124; Resp 18; Pulse Ox 98% ; bp 19:00 BP 128 / 82; Pulse 103; Resp 20; Pulse Ox 97% on 2 lpm NC; kr3 20:00 BP 128 / 72; Pulse 146; Resp 20; Pulse Ox 95% on 2 lpm NC; kr3 MDM: 16:40 Patient medically screened. [facility] 19:21 Differential diagnosis: Pneumonia, CVA, sepsis, ACS, pulmonary embolism. Data reviewed: [facility] vital signs, nurses notes, lab test result(s), EKG, radiologic studies, CT scan, plain films. Counseling: I had a detailed discussion with the patient and/or guardian regarding: the historical points, exam findings, and any diagnostic results supporting the discharge/admit diagnosis, lab results, radiology results, the need for further work-up and treatment in the hospital. Response to treatment: the patient's symptoms have mildly improved after treatment. ED course: I discussed the patient with Lew Cantrell whom accepted the patient to Dr. Marlene gifford. 08/18 16:40 Order name: Basic Metabolic Panel; Complete Time: 17:[address] [facility] 08/18 16:40 Order name: CBC with Diff; Complete Time: 17:[address] [facility] 08/18 16:40 Order name: LFT's; Complete Time: 17:[address] [facility] 08/18 16:40 Order name: Magnesium; Complete Time: 17:[address] [facility] 08/18 16:40 Order name: NT PRO-BNP; Complete Time: 17:[address] [facility] 08/18 16:40 Order name: PT-INR; Complete Time: 17:[address] [facility] 08/18 16:40 Order name: Troponin HS; Complete Time: 17:[address] [facility] 08/18 16:40 Order name: XRAY Chest (1 view); Complete Time: 18:[address] [facility] 08/18 16:40 Order name: COVID-19/FLU A+B; Complete Time: 17:[address] [facility] 08/18 16:42 Order name: Blood Culture Adult (2) [facility] 08/18 16:42 Order name: Lactate w/ 2H reflex if indic.; Complete Time: 17:[address] [facility] 08/18 17:31 Order name: CT Head Brain wo Cont; Complete Time: 18:[address] [facility] 08/18 17:31 Order name: CT Chest For PE Angio; Complete Time: 18:[address] [facility] 08/18 16:40 Order name: EKG; Complete Time: 16:[address] [facility] 08/18 16:40 Order name: Cardiac monitoring; Complete Time: 17:[address] [facility] 08/18 16:40 Order name: EKG - Nurse/Tech; Complete Time: 17:[address] [facility] 08/18 16:40 Order name: IV Saline Lock; Complete Time: 17:[address] [facility] 08/18 16:40 Order name: Labs collected and sent; Complete Time: 17:[address] [facility] 08/18 16:40 Order name: O2 Per Protocol; Complete Time: 17:[address] [facility] 08/18 16:40 Order name: O2 Sat Monitoring; Complete Time: 17:[address] [facility] Administered Medications: 17:00 Drug: Magnesium Sulfate 1 grams Route: IVPB; Infused Over: 1 hrs; Site: left bp antecubital; 17:00 Drug: Metoprolol 25 mg Route: PO; bp 19:02 Drug: Rocephin (cefTRIAXone) 1 grams Route: IV; Rate: calculated rate; Site: left kr3 antecubital; 19:51 Drug: Metoprolol 5 mg Route: IVP; Site: left antecubital; kr3 Disposition Summary: 08/18/22 19:24 Hospitalization Ordered Hospitalization Status: Inpatient Admission [facility] Provider: Bebo Shepherd Location: Telemetry/MedSur (Inpatient) [facility] Condition: Stable jmm Problem: new jmm Symptoms: have improved jmm Bed/Room Type: Standard [facility] Room Assignment: 404(08/18/22 19:59) cg Diagnosis - Atrial fibrillation with RVR jmm - Community-acquired pneumonia [facility] Forms: - Medication Reconciliation Form jmm - SBAR form jm Signatures: Dispatcher [employer] EDTyler Landon PA PA jmm Smirch, Shelby, RN RN ss Garcia, Cindy, RN RN cg Mauricio Garcia RN RN bp Reid, Kelley, RN RN kr3 Corrections: (The following items were deleted from the chart) 19:59 19:24 [facility]
--- NOTE | 2022-08-18 19:25 | ER ---
Nurse's Notes [facility] Name: Little Stafford Age: 77 yrs Sex: Female : 1945 Arrival Date: 08/18/2022 Time: 16:37 Bed 5 Private MD: Diagnosis: Atrial fibrillation with RVR;Community-acquired pneumonia Presentation: 08/18 16:37 Acuity: KELLEY 2 ss 16:37 Chief complaint: EMS states: called 911 because patient was short of breath and ss confused. Pt reports she has had a cough for the past couple of days. EMS reports rapid irregular heart rate ranging from 140-170 bpm. Coronavirus screen: Client presents with at least one sign or symptom that may indicate coronavirus-19. Ebola Screen: Patient denies exposure to infectious person. Patient denies travel to an Ebola-affected area in the 21 days before illness onset. Risk Assessment: Do you want to hurt yourself or someone else? Patient reports no desire to harm self or others. Onset of symptoms is unknown. 16:37 Method Of Arrival: EMS: [facility] ss 20:58 Initial Sepsis Screen: Does the patient meet any 2 criteria? No. Patient's initial kr3 sepsis screen is negative. Does the patient have a suspected source of infection? No. Patient's initial sepsis screen is negative. Triage Assessment: 17:00 General: Appears distressed, obese, Behavior is cooperative, appropriate for age, bp anxious. Pain: Denies pain. EENT: No deficits noted. Neuro: No deficits noted. Cardiovascular: No deficits noted. Respiratory: Reports shortness of breath Onset: The symptoms/episode began/occurred today, the patient has moderate shortness of breath. GI: No signs and/or symptoms were reported involving the gastrointestinal system. : No signs and/or symptoms were reported regarding the genitourinary system. Derm: No deficits noted. Musculoskeletal: No deficits noted. Historical: - Allergies: 16:40 Codeine; ss - PMHx: 16:40 CHF; Chronic pain; High Cholesterol; Gout; GERD; DVT Left leg; Depression; ss Hyperlipidemia; restless leg syndrome; Hypertension; - Immunization history:: Adult Immunizations unknown. - Social history:: Smoking status: unknown. Screenin:40 [facility] ED Fall Risk Assessment (Adult) History of falling in the last 3 months, bp including since admission No falls in past 3 months (0 pts). Abuse screen: Denies threats or abuse. Denies injuries from another. Nutritional screening: No deficits noted. Tuberculosis screening: No symptoms or risk factors identified. Assessment: 16:40 General: SEE TRIAGE NOTE. bp 17:00 Cardiovascular: Rhythm is atrial fibrillation with rapid ventricular response. bp Respiratory: Airway is patent Respiratory effort is labored, Breath sounds with rhonchi. 18:00 Reassessment: PT TO CT. bp Vital Signs: 16:37 BP 126 / 78; Pulse 144; Resp 18; Temp 97.8(O); Pulse Ox 94% on R/A; ss 17:00 BP 137 / 81; Pulse 131; Resp 18; Pulse Ox 96% ; bp 18:00 BP 132 / 71; Pulse 124; Resp 18; Pulse Ox 98% ; bp 19:00 BP 128 / 82; Pulse 103; Resp 20; Pulse Ox 97% on 2 lpm NC; kr3 20:00 BP 128 / 72; Pulse 146; Resp 20; Pulse Ox 95% on 2 lpm NC; kr3 ED Course: 16:37 Patient arrived in ED. ss 16:37 Triage completed. ss 16:39 Tyler Crawford PA is PHCP. jmm 16:40 Deejay Pacheco MD is Attending Physician. jmm 16:40 Arm band placed on right wrist. ss 16:40 Patient has correct armband on for positive identification. Bed in low position. Call bp light in reach. Side rails up X2. Adult w/ patient. Client placed on continuous cardiac and pulse oximetry monitoring. NIBP monitoring applied. 16:40 Inserted saline lock: 20 gauge in left antecubital area, using aseptic technique. Blood bp collected. 16:52 Mauricio Garcia, NATASHA is Primary Nurse. bp 17:33 XRAY Chest (1 view) In Process Unspecified. EDMS 18:22 CT Head Brain wo Cont In Process Unspecified. EDMS 18:22 CT Chest For PE Angio In Process Unspecified. EDMS 19:23 Bebo Shepherd MD is Hospitalizing Provider. jmm 20:16 No provider procedures requiring assistance completed. kr3 20:57 Report given to Kathleen on the 4th floor. kr3 Administered Medications: 17:00 Drug: Magnesium Sulfate 1 grams Route: IVPB; Infused Over: 1 hrs; Site: left bp antecubital; 17:00 Drug: Metoprolol 25 mg Route: PO; bp 19:02 Drug: Rocephin (cefTRIAXone) 1 grams Route: IV; Rate: calculated rate; Site: left kr3 antecubital; 19:51 Drug: Metoprolol 5 mg Route: IVP; Site: left antecubital; kr3 Medication: 20:58 VIS not applicable for this client. kr3 Outcome: 19:24 Decision to Hospitalize by Provider. casper 21:29 Patient left the ED. kr3 Signatures: Dispatcher [employer] EDMS Tyler Crawford PA PA jmm Smirch, Shelby, RN RN ss Mauricio Garcia RN RN bp Reid, Kelley, RN RN kr3
[2022-08-18] MEDS ORDERED: METOPROLOL TARTRATE 5 MG/5 ML INJ IV ONE (19:28)
--- NOTE | 2022-08-18 19:59 | P.HP ---
Certification for Inpatient Patient admitted to: Inpatient With expected LOS: >2 Midnights Patient will require the following post-hospital care: None Practitioner: I am a practitioner with admitting privileges, knowledge of patient current condition, hospital course, and medical plan of care. Services: Services provided to patient in accordance with Admission requirements found in Title 42 Section 412.3 of the Code of Federal Regulations Patient History Date of Service: 08/18/22 Reason for admission: A-fib, sepsis, pneumonia History of Present Illness: 77-year-old female with history of CHF, hypertension, hyperlipidemia, DVT presents emergency department for 1 week worsening dyspnea. Her reports that she was altered at home and he called an ambulance, EMS noted patient was in A-fib with RVR which is new for her. She was evaluated in the emergency department her labs were significant for leukocytosis white blood cell count 14.1 BNP 5515 CTA of the chest shows mild left upper lobe pneumonia, small bilateral pleural effusions. Patient with new onset A-fib RVR rate currently around 120 after p.o. and IV Lopressor. We will admit for further evaluation and management of pneumonia, new onset A-fib with RVR, sepsis. Allergies codeine Adverse Reaction (Verified 08/26/20 07:19) Itching Home Medications: Atorvastatin Calcium 20 mg PO DAILY 05/10/17 Folic Acid 1 mg PO BID 05/10/17 Gabapentin 600 mg PO QID 05/10/17 Hydromorphone [Dilaudid*] 2 mg PO Q8H PRN 05/10/17 Losartan/Hydrochlorothiazide [Losartan-Hctz 50-12.5 mg Tab] 1 each PO DAILY 05/10/17 Pantoprazole [Protonix Tab*] 40 mg PO DAILY 05/10/17 Potassium Chloride 20 meq PO BID 05/10/17 Ropinirole HCl [Requip*] 1 mg PO 6XD 05/10/17 Trazodone HCl 100 mg PO BEDTIME 05/10/17 Albuterol Inhaler [Ventolin Inhaler*] IH PRN PRN 08/20/20 Allopurinol 300 mg PO DAILY 08/20/20 Apixaban [Eliquis] 2.5 mg PO BID 08/20/20 Bumetanide 2 mg PO BID 08/20/20 Cyanocobalamin (Vitamin B-12) [Vitamin B-12] 1 cap PO DAILY 08/20/20 Duloxetine HCl 60 mg PO BID 08/20/20 Fluticasone/Vilanterol [Breo Ellipta 200-25 Mcg INH] 1 each IH DAILY 08/20/20 Spironolactone 25 mg PO DAILY 08/20/20 Ubidecarenone [Co Q-10] 400 mg PO DAILY 08/20/20 - Past Medical/Surgical History Diabetic: No -: CHF, Chronic pain, Depression, DVT left leg -: GERD, High Cholesterol, Hyperlipidemia, -: Hypertension, Restless leg syndrome -: Psoriasis -: Osteoarthritis -: Left ankle surgery -: Right knee surgery Psychosocial/ Personal History: Patient lives at home with her , uses wheelchair - Family History Mother -: Heart disease Father -: Cancer - Social History Smoking Status: Never smoker Alcohol use: No CD- Drugs: No Caffeine use: Yes Place of Residence: Home Review of Systems 10-point ROS is otherwise unremarkable Respiratory: Cough, Shortness of Breath Physical Examination - Physical Exam General: Alert, In no apparent distress, Oriented x3 HEENT: Atraumatic, PERRLA, Mucous membr. moist/pink, EOMI, Sclerae nonicteric Neck: Supple, 2+ carotid pulse no bruit, No LAD, Without JVD or thyroid abnormality Respiratory: Diminished Cardiovascular: Normal S1 S2, Irregular heart rate/rhythm (A-fib RVR) Capillary refill: <2 Seconds Gastrointestinal: Normal bowel sounds, No tenderness Musculoskeletal: No tenderness Integumentary: No rashes Neurological: Normal speech, Normal strength at 5/5 x4 extr, Normal tone, Normal affect - Studies Laboratory Data (last 24 hrs) 08/18/22 16:48: PT 13.0 H, INR 1.18 08/18/22 16:48: WBC 14.10 H, Hgb 11.5 L, Hct 36.4, Plt Count 581 H 08/18/22 16:48: Sodium 135 L, Potassium 3.9, BUN 25 H, Creatinine 0.83, Glucose 162 H, Magnesium 2.1, Total Bilirubin 0.6, AST 20, ALT 27, Alkaline Phosphatase 123 H Assessment and Plan - Plan Assessment: Sepsis secondary to left-sided pneumonia New onset A-fib with RVR History of DVT on chronic anticoagulation Acute on chronic CHFunknown EF Hypertension Hyperlipidemia GERD Chronic pain Plan: Sepsis secondary to left-sided pneumonia Blood cultures obtained in ED, lactate less than 2 does not meet criteria for severe sepsis at this time. Continue antibiotics Rocephin/Zithromax. Pulmonology did see patient. New onset A-fib with RVR Continue metoprolol p.o., as needed IV Lopressor for rate control. Patient previously on Eliquis for DVT, continue this. Cardiology consult in place, echocardiogram ordered. Will check TSH, electrolytes. History of DVT on chronic anticoagulation Continue Eliquis Acute on chronic CHFunknown EF Gentle IV Lasix, cardiology consult, echocardiogram Hypertension Hyperlipidemia GERD Chronic pain Review and continue home medications as appropriate. DVT PPX: Continue Eliquis Code status: DNR Discharge Plan: Home Plan to discharge in: 72 Hours - Advance Directives Does patient have a Living Will: No Does patient have a Durable POA for Healthcare: No - Code Status/Comfort Care Code Status Assessed: Yes (DNR) Critical Care: No Time Spent Managing Pts Care (In Minutes): 70
[2022-08-18 22:14] VITALS: BMI 41.1
[2022-08-18] MEDS ORDERED: MELATONIN 5 MG TABLET PO PRN (22:17)
[2022-08-18] MEDS ORDERED: APIXABAN 5 MG TABLET PO SCH (22:37)
[2022-08-18] MEDS ORDERED: ONDANSETRON 4 MG/2 ML VIAL IV PRN (22:37)
[2022-08-18] MEDS: MORPHINE 2 MG/ML SYR IV PRN (22:45)
[2022-08-19] MEDS ORDERED: HYDROCODONE/APAP 7.5/325 MG TAB PO PRN (01:51)
[2022-08-19 04:14] LABS: Absolute Lymphocytes (CBC) 1.5 K/uL (0.7-4.9); Lymphocytes % 9.6 % (15.3-44.8); MCV 89.2 fL (80-100); MPV 6.9 fL (7.6-11.3); RBC Red Blood Cell Count 3.93 M/uL (3.86-4.86)
[2022-08-19] MEDS: HYDROCODONE/APAP 5/325 MG TAB PO PRN (04:21)
[2022-08-19 04:38] LABS: Magnesium 2.3 mg/dL (1.6-2.4); Potassium 4.3 mmol/L (3.5-5.1); Thyroid Stimulating Hormone 0.284 uIU/mL (0.358-3.740)
[2022-08-19] MEDS: METOPROLOL TAR 25 MG TAB PO SCH ×2 (05:19→17:36)
[2022-08-19] MEDS: APIXABAN 2.5 MG TABLET PO SCH ×2 (08:10→21:02)
[2022-08-19] MEDS: GABAPENTIN 300 MG CAP PO SCH ×4 (08:10→21:02)
[2022-08-19] MEDS: FUROSEMIDE 20 MG/ 2ML VIAL IV SCH ×2 (08:10→17:36)
[2022-08-19] MEDS: ATORVASTATIN 10 MG TAB PO SCH (08:10)
[2022-08-19] MEDS ORDERED: CEFTRIAXONE 1,000 MG in NA CHLORIDE 0.9% 50 ML IVPB SCH (09:00)
[2022-08-19] MEDS ORDERED: AZITHROMYCIN IV 500 MG in NA CHLORIDE 0.9% 250 ML IVPB SCH (09:00)
--- NOTE | 2022-08-19 09:52 | P.PN ---
Subjective Date of Service: 08/19/22 Chief Complaint: A-fib, sepsis, pneumonia Patient is 77 years of age admitted with feeling bad for the past 3 to 4 weeks sick of COPD on Anoro also has sleep apnea patient has home O2 History of CHF hypertension also found to be in A-fib rapid aVR currently in normal sinus rhythm supple pneumonia in the left lung White count is also elevated denies any complaints apart from shortness of breath Review of Systems General: Weakness Respiratory: Shortness of Breath Physical Examination - Vital Signs Temperature: 96.8 F Blood Pressure: 112/55 Pulse: 88 Respirations: 17 Pulse Ox (%): 95 - Physical Exam General: Alert, In no apparent distress, Mild distress Respiratory: Clear to auscultation bilaterally, Crackles/rales, Friction rub Cardiovascular: Regular rate/rhythm, Normal S1 S2, Edema - Studies Laboratory Data (last 24 hrs) 08/18/22 16:48: PT 13.0 H, INR 1.18 08/18/22 16:48: WBC 14.10 H, Hgb 11.5 L, Hct 36.4, Plt Count 581 H 08/18/22 16:48: Sodium 135 L, Potassium 3.9, BUN 25 H, Creatinine 0.83, Glucose 162 H, Magnesium 2.1, Total Bilirubin 0.6, AST 20, ALT 27, Alkaline Phosphatase 123 H Assessment And Plan - Current Problems (Diagnosis) (1) Pneumonia Current Visit: Yes Status: Acute Plan: Patient is 77 years of age not feeling well for the past 3 to 4-week. With possible left upper lobe pneumonia White count is elevated continue with Rocephin and Zithromax for now blood cultures are pending Qualifiers: Pneumonia type: due to unspecified organism Laterality: left (2) COPD (chronic obstructive pulmonary disease) Current Visit: Yes Status: Acute Plan: Currently patient has a history of COPD and is using bronchodilators patient is on Breo was recently prescribed some Decadron labs chemistries reviewed (3) Atrial fibrillation Current Visit: Yes Status: Acute Plan: Patient is on Eliquis rate and blood pressure control Qualifiers: Atrial fibrillation type: unspecified Qualified Code(s): I48.91 - Unspecified atrial fibrillation (4) Congestive heart failure Current Visit: Yes Status: Acute Plan: Continue with diuretic Qualifiers: Heart failure chronicity: unspecified
[2022-08-19] MEDS: ROPINIROLE HCL 1 MG TAB PO SCH ×5 (10:35→22:00)
[2022-08-19] MEDS: dexAMETHasone 4 MG TAB PO SCH ×3 (14:00→21:00)
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
[2022-08-19] MEDS ORDERED: TRAZODONE 150 MG TAB PO SCH (21:00)
[2022-08-19] MEDS: DULOXETINE 30 MG CAP PO SCH (21:02)
[2022-08-19] MEDS: MORPHINE 2 MG/ML SYR IV PRN (21:03)
--- NOTE | 2022-08-19 22:43 | CON ---
Date of Consultation: 08/19/2022 Reason For Consultation: Atrial fibrillation. History Of Present Illness: This is a 77-year-old female with history of CHF, hypertension, dyslipid emia, and DVT who presented to emergency room with worsening shortness of breath. claims rj t she was altered in the emergency room and she was found to be in atrial fibrillation with rapid lin tricular response. I saw her by bedside, no palpitations. She said that she was confused, but she d enies having any chest pain. She has some shortness of breath and lower extremity edema. Past Medical History: As outlined above in the HPI. Medications: Refer to reconciliation sheet for detailed list. Allergies: CODEINE. Family History: No premature coronary artery disease or cancer. Social History: She does not smoke or drink. Does not use any drugs. Review of Systems: All systems reviewed and they were negative except for mentioned in HPI. Physical Examination: Vital Signs: Temperature is 97.1, pulse 97, breathing at 19, blood pressure 128/84, and saturating 9 4%. General: A pleasant elderly female, in no apparent distress. Head And Neck: Pupils are equal and reactive to light. Intact eye movements. No JVD. No cervical lymphadenopathy. Neck is supple. Thyroid is not enlarged. Lungs: Decreased breathing sounds bilaterally with rhonchi. No accessory muscle use or muscle retra ction. Heart: Irregularly irregular. No extra sounds. Abdomen: Soft, nontender. Bowel sounds positive. No organomegaly. No masses or hernia. No rigidi ty or rebound. Extremities: No clubbing or cyanosis. Positive edema bilaterally. Skin: No rash noted. Neurologic: Alert, awake, and oriented x3. No acute focal deficits appreciated. Investigations: BUN 23, creatinine 0.77. TSH is 0.284. Hemoglobin is 11 with white blood cell coun t 14.4. Assessment And Plan: 1.Atrial fibrillation, rate is controlled now. I recommend to increase the metoprolol dose to 50 mg twice a day and continue Eliquis. 2.Congestive heart failure. She is slightly fluid overloaded. Recommend IV Lasix. I agree with th e low dose 20 mg twice a day. The patient is clinically stable from the cardiac standpoint and I ask ed her to follow up with her primary outpatient coder once discharged and Cardiology will sign off. SR/MODL Voice ID: [id number] Report ID: [id number]
[2022-08-20 04:48] LABS: Absolute Lymphocytes (CBC) 1.5 K/uL (0.7-4.9); Hematocrit 33.2 % (36.0-45.0); Lymphocytes % 12.5 % (15.3-44.8); MCV 88.5 fL (80-100); RBC Red Blood Cell Count 3.76 M/uL (3.86-4.86)
[2022-08-20 05:02] LABS: Magnesium 2.2 mg/dL (1.6-2.4); Potassium 3.8 mmol/L (3.5-5.1)
[2022-08-20] MEDS: METOPROLOL TAR 25 MG TAB PO SCH (05:02)
[2022-08-20] MEDS: HYDROCODONE/APAP 5/325 MG TAB PO PRN (05:02)
[2022-08-20 06:06] VITALS: O2SAT 94
[2022-08-20] MEDS ORDERED: allopurinoL 300 MG TAB PO SCH (09:00)
[2022-08-20] MEDS ORDERED: PANTOPRAZOLE 40 MG PO SCH (09:00)
[2022-08-20] MEDS ORDERED: LOSARTAN/HCTZ 50-12.5 PO SCH (09:00)
[2022-08-20] MEDS ORDERED: PANTOPRAZOLE 40MG TABLET PO SCH (09:00)
[2022-08-20] MEDS: dexAMETHasone 4 MG TAB PO SCH (09:00)
[2022-08-20] MEDS ORDERED: HOME MED 1 EA UNK (Fluticasone/Vilanterol [Breo Ellipta 200-25 Mcg Inh] Blst.W.Dev) IH SCH (09:00)
[2022-08-20] MEDS ORDERED: SPIRONOLACTONE 25 MG TABLET PO SCH (09:00)
[2022-08-20] MEDS: FUROSEMIDE 20 MG/ 2ML VIAL IV SCH (09:00)
[2022-08-20] MEDS ORDERED: POTASSIUM 25 MEQ EFFERV TAB PO ONE (09:00)
--- NOTE | 2022-08-20 09:14 | P.DS ---
Admission Date: 08/18/22 Discharge Date: 08/20/22 Disposition: ROUTINE DISCHARGE Discharge Condition: FAIR Reason for Admission: A-fib, sepsis, pneumonia - Problems (1) Pneumonia Current Visit: Yes Status: Acute Qualifiers: Pneumonia type: due to unspecified organism Laterality: left (2) COPD (chronic obstructive pulmonary disease) Current Visit: Yes Status: Acute Qualifiers: Emphysema type: unspecified (3) Atrial fibrillation Current Visit: Yes Status: Acute Qualifiers: Atrial fibrillation type: unspecified Qualified Code(s): I48.91 - Unspecified atrial fibrillation (4) Congestive heart failure Current Visit: Yes Status: Acute Qualifiers: Heart failure type: unspecified Heart failure chronicity: unspecified Qualified Code(s): I50.9 - Heart failure, unspecified Brief History of Present Illness: Patient is 77 years of age admitted with new onset A-fib possible left upper lobe pneumonia white count was elevated Hospital Course: Admitted to the hospital was started on metoprolol she was already anticoagulated with Eliquis and was treated with IV antibiotics White blood coun t was elevated white count declined to 11.8 she has a mild normocytic anemia at the time of discharge alert oriented responsive cooperative signs all stable she has COPD is compliant with her inhaler signs stable rate controlled with metoprolol examination chest clear cardiovascular system heart sounds normal A- fib well controlled discharge on antibiotic blood cultures negative no fever follow-up with cardiology Vital Signs/Physical Exam: Temp Pulse Resp BP Pulse Ox 96.9 F 112 H 18 139/70 93 08/20/22 04:00 08/20/22 04:00 08/20/22 04:00 08/20/22 04:00 08/20/22 04:00 Laboratory Data at Discharge: WBC 11.80 K/uL (4.3-10.9) H 08/20/22 04:30 Hgb 10.6 g/dL (12.0-15.0) L 08/20/22 04:30 Hct 33.2 % (36.0-45.0) L 08/20/22 04:30 Plt Count 478 K/uL (152-406) H 08/20/22 04:30 PT 13.0 SECONDS (9.5-12.5) H 08/18/22 16:48 INR 1.18 08/18/22 16:48 Sodium 136 mmol/L (136-145) 08/20/22 04:30 Potassium 3.8 mmol/L (3.5-5.1) 08/20/22 04:30 BUN 27 mg/dL (7-18) H 08/20/22 04:30 Creatinine 0.83 mg/dL (0.55-1.02) 08/20/22 04:30 Glucose 107 mg/dL (74-106) H 08/20/22 04:30 Magnesium 2.2 mg/dL (1.6-2.4) 08/20/22 04:30 Total Bilirubin 0.6 mg/dL (0.2-1.0) 08/18/22 16:48 AST 20 U/L (15-37) 08/18/22 16:48 ALT 27 U/L (13-56) 08/18/22 16:48 Alkaline Phosphatase 123 U/L (45-117) H 08/18/22 16:48 Triglycerides 187 mg/dL (<150) H 08/19/22 04:03 Cholesterol 159 mg/dL (<200) 08/19/22 04:03 HDL Cholesterol 35 mg/dL (40-60) L 08/19/22 04:03 Cholesterol/HDL Ratio 4.54 08/19/22 04:03 Home Medications: Atorvastatin Calcium 20 mg PO DAILY 05/10/17 Folic Acid 1 mg PO BID 05/10/17 Gabapentin 600 mg PO QID 05/10/17 Hydromorphone [Dilaudid*] 2 mg PO Q8H PRN 05/10/17 Losartan/Hydrochlorothiazide [Losartan-Hctz 50-12.5 mg Tab] 1 each PO DAILY 05/10/17 Pantoprazole [Protonix Tab*] 40 mg PO DAILY 05/10/17 Potassium Chloride 20 meq PO BID 05/10/17 Ropinirole HCl [Requip*] 1 mg PO 6XD 05/10/17 Trazodone HCl 150 mg PO BEDTIME 05/10/17 Albuterol Inhaler [Ventolin Inhaler*] 8 gm IH PRN PRN 08/20/20 Allopurinol 300 mg PO DAILY 08/20/20 Apixaban [Eliquis *] 2.5 mg PO BID 08/20/20 Bumetanide 2 mg PO BID 08/20/20 Cyanocobalamin (Vitamin B-12) [Vitamin B-12] 1 cap PO DAILY 08/20/20 Duloxetine HCl 60 mg PO BID 08/20/20 Fluticasone/Vilanterol [Breo Ellipta 200-25 Mcg INH] 1 each IH DAILY 08/20/20 Spironolactone 25 mg PO DAILY 08/20/20 Ubidecarenone [Co Q-10] 400 mg PO DAILY 08/20/20 Hydrocodone/Acetaminophen [Hydrocodone-Acetamin 7.5-325] 5 mg PO Q6HR PRN 08/19/22 Cefuroxime Axetil [Cefuroxime] 500 mg PO BID 7 Days #14 tab 08/20/22 Metoprolol Tartrate [Lopressor*] 25 mg PO BID 6AM 6PM 30 Days #60 tab 08/20/22 New Medications: Cefuroxime Axetil [Cefuroxime] 500 mg PO BID 7 Days #14 tab Metoprolol Tartrate [Lopressor*] 25 mg PO BID 6AM 6PM 30 Days #60 tab Diet: Low sodium Followup: Tyree Pacheco DO [Primary Care Provider] - Lefty Hurt MD [ACTIVE - CAN ADMIT] -
[2022-08-20] MEDS: ROPINIROLE HCL 1 MG TAB PO SCH (09:31)
[2022-08-20] MEDS: DULOXETINE 30 MG CAP PO SCH (09:31)
[2022-08-20] MEDS: GABAPENTIN 300 MG CAP PO SCH (09:31)
[2022-08-20] MEDS: ATORVASTATIN 10 MG TAB PO SCH (09:32)
[2022-08-20] MEDS: APIXABAN 2.5 MG TABLET PO SCH (09:33)
[2022-08-20 09:40] VITALS: BP 106/70; TEMP 97.9
--- NOTE | 2022-08-22 06:46 | ECHO ---
HEIGHT: 5 ft 4 in WEIGHT: 240 lb 0 oz DATE OF STUDY: 08/19/[address]: Lew Cantrell NP 2-DIMENSIONAL: YES M.MODE: YES DOPPLER: YES COLOR FLOW: YES TDS: YES PORTABLE: YES DEFINITY: BUBBLE STUDY: DIAGNOSIS: NEW ATRIAL FIBRILLATION, CONGESTIVE HEART FAILURE CARDIAC HISTORY: CATHERIZATION: SURGERY: PROSTHETIC VALVE: PACEMAKER: MEASUREMENTS (cm) DIASTOLIC (NORMALS) SYSTOLIC (NORMALS) IVSd 1.1 (0.6-1.2) LA Diam 4.1 (1.9-4.0) LVEF 37% LVIDd 4.5 (3.5-5.7) LVIDs 3.7 (2.0-3.5) %FS 18% LVPWd 1.2 (0.6-1.2) Ao Diam 2.7 (2.0-3.7) 2 DIMENSIONAL ASSESSMENT: RIGHT ATRIUM: NORMAL LEFT ATRIUM: ENLARGED RIGHT VENTRICLE: NORMAL LEFT VENTRICLE: DEPRESSED EJECTION FRACTION TRICUSPID VALVE: MILD TRICUSPID REGURGITATION MITRAL VALVE: MILD MITRAL REGURGITATION PULMONIC VALVE: NORMAL AORTIC VALVE: NORMAL PERICARDIAL EFFUSION: NONE AORTIC ROOT: NORMAL LEFT VENTRICULAR WALL MOTION: MODERATE GLOBAL HYPOKINESIS DOPPLER/COLOR FLOW: SEE BELOW COMMENTS: 1. MODERATELY DEPRESSED LEFT VENTRICULAR EJECTION FRACTION 35-40% 2. MODERATE GLOBAL HYPOKINESIS 3. LEFT ATRIAL ENLARGEMENT 4. ATRIAL FIBRILLATION 5. MILD MITRAL REGURGITATION 6. MILD TRICUSPID REGURGITATION 7. POOR WINDOWS TECHNOLOGIST: SHASHANK ROBERTSON
== END 2022-08-20 12:32 | disposition home or self-care (01) | DRG 871 ==
LOC: ER 16:34 → ERHOLD 19:50 → 4TH 20:58
PROVIDERS: ADMIT Internal Medicine Sleep Medicine; ATTEND Internal Medicine Sleep Medicine
DX: A41.9 Sepsis, unspecified organism (principal); I50.23 Acute on chronic systolic (congestive) heart failure; J18.9 Pneumonia, unspecified organism; J43.9 Emphysema, unspecified; I11.0 Hypertensive heart disease with heart failure; I48.91 Unspecified atrial fibrillation; E78.5 Hyperlipidemia, unspecified; M10.9 Gout, unspecified; G25.81 Restless legs syndrome; K21.9 Gastro-esophageal reflux disease without esophagitis; G89.29 Other chronic pain; Z66 Do not resuscitate; Z88.5 Allergy status to narcotic agent; Z99.81 Dependence on supplemental oxygen; Z79.01 Long term (current) use of anticoagulants; Z79.899 Other long term (current) drug therapy; Z86.718 Personal history of other venous thrombosis and embolism; Z20.822 Contact with and (suspected) exposure to COVID-19
CPT/HCPCS: 0240U; 36415; 70450; 71045; 71275; 80048; 80061; 80076; 83605; 83735; 83880; 84439; 84443; 84484; 85025; 85610; 87040; 93005; 93306; 96374; 96375; 97161; 97530; 99284; J0456; J1940; J2270; J3475; J7050; J8540; Q9967

== ENCOUNTER 2022-08-22 12:54 | Emergency (ER) | payer OTHER ==
--- OUTSIDE RECORDS SUMMARY | 2022-08-22 13:17 | XMS REPORT | Continuity of Care Document ---
:1945 Author Organization [facility] t Address [facility] [place] [place] [address] Care Team Providers Name Role Phone Tyree Pacheco Primary Care Physician Tyree Pacheco Attending Clinician Unavailable LAYLA BIANCHI Attending Clinician Unavailable Gavi_Chandler Attending Clinician Unavailable Layla Bianchi MD Attending Clinician Doctor Unassigned, [place] Attending Clinician Unavailable Shaan MONDRAGON Attending Clinician [...] Attending Clinician Unavailable Jorge Ruby Attending Clinician PachecoTyree Admitting Clinician Unavailable Gavi_Chandler Admitting Clinician Unavailable Shaan MONDRAGON Admitting Clinician Unavailable Wilver Atkinson Admitting Clinician Unavailable UNDEFINED Admitting Clinician Unavailable LAYLA BIANCHI Admitting Clinician Unavailable Jorge Ruby Admitting Clinician Payers Payer Name Policy Type Policy Number Effective Date Expiration Date Shivani sommer AETNA [facility] [id number] 2020-07-03 MEDICARE 00:00:00 PPO-ANDREA AETNA MEDICARE 53 [id number] 2013-07-03 [facility] 00:00:00 - [facility] MEDICARE MB [id number] 2009-05-03 [facility] NOVITAS 00:00:00 - [facility] MEDICARE MB [id number] 2009-05-03 [facility] NOVITAS 00:00:00 - [facility] MEDICARE MB [id number] 2009-05-03 [facility] NOVITAS 00:00:00 - [facility] MEDICARE MB [id number] 2009-05-03 [facility] NOVITAS 00:00:00 - [facility] MEDICARE MB [id number] 2009-05-03 [facility] NOVITAS 00:00:00 - [facility] MEDICARE MB [id number] 2009-05-03 [facility] NOVITAS 00:00:00 - [facility] MEDICARE MB [id number] 2009-05-03 [facility] NOVITAS 00:00:00 - [facility] MEDICARE MB [id number] 2009-05-03 [facility] NOVITAS 00:00:00 - [facility] MEDICARE MB [id number] 2009-05-03 [facility] NOVITAS 00:00:00 - [facility] MEDICARE MB [id number] 2009-05-03 [facility] NOVITAS 00:00:00 [facility] MEDICARE MB [id number] 2009-05-03 [facility] NOVITAS 00:00:00 [facility] MEDICARE MB [id number] 2009-05-03 [facility] NOVITAS 00:00:00 [facility] MEDICARE MB [id number] 2009-05-03 [facility] NOVITAS 00:00:00 - [facility] AETNA MEDICARE [id number] 2017-07-03 [facility] 00:00:00 - [facility] AETNA MEDICARE [id number] 2017-07-03 [facility] 00:00:00 - [facility] AETNA MEDICARE [id number] 2017-07-03 [facility] 00:00:00 - [facility] AETNA MEDICARE [id number] 2017-07-03 [facility] 00:00:00 - [facility] Problems Condition Condition Condition Status Onset Resolution Last Treating Co mments Source Name Details Category Date Date Treatment Clinician Date Volume Volume Disease Active Univers overload overload 2-26 ity of 00:00: [place] 00 Medical Branch History of History of Disease Active U sanaers DVT (deep DVT (deep 2-26 ity of vein vein 00:00: [place] thrombosis thrombosis 00 Me dical ) ) [...] 18:00:00 l Active 00:00: [place] 03/18/2016 00 [facility] Essential Essential Disease Active 2014-07 Uni vers hypertensi hypertensi 2-18 it y of on on 00:00: [place] 00 Medical Branch Hyperlipid Hyperlipid Disease Active 2014-07 U nivers emia emia 2-18 ity of 00:00: [place] 00 Medical Branch Sleep Sleep Disease Active 2014-07 Univers apnea apnea 2-18 ity of 00:00: [place] [address] Medical Branch Osteoarthr Osteoarthr Disease Active 2014-07 U nivers itis of itis of 2-18 ity of both knees [place] Depressive Depressiv Problem Active 2016-07-08 Memoria disorder e disorder 04:40:14 l (disorder) (disorder) He rmann Active Problem 07/08/2016 [facility] OPID [place] Eczema Eczema Problem Active 2016-07-08 Manjinder nasir (disorder) (disorder) 04:40:14 l Active [place] Problem 07/08/2016 [facility] OPID [place] Hypertensi Hypertens Problem Active 2016-07-08 Memoria ve willard 04:40:14 l disorder, disorder, Herm jesse systemic systemic arterial arterial (disorder) (disorder) Active Problem 07/08/2016 [facility] OPID [place] Impairment Impairmen Problem Active 2016-07-08 Memoria of balance t of 04:40:14 l (finding) balance Oemr n (finding) Active Problem 07/08/2016 [facility] OPID [place] Obesity Obesity Problem Active 2016-07-08 Me moria (disorder) (disorder) 04:40:14 l Active [place] Problem 07/08/2016 [facility] OPID [place] Pain Pain Problem Active 2016-07-08 Memor ia (finding) (finding) 04:40:14 l Active [place] Problem 07/08/2016 [facility] OPID [place] SPINAL SPINAL Diagnosis Active 2016-04-04 Me moria STENOSIS, STENOSIS, 18:00:00 l CERVICAL CERVICAL Omer n REGION REGION Active [facility] CERVICAL CERVICAL Diagnosis Active 2016-04-04 Memoria DISC DISC 18:00:00 l DISORDER DISORDER Omer n WITH WITH MYELOPATHY MYELOPATHY , , Active [facility] Mixed Mixed Problem Common incontinen incontinen Sp cari ce ce - CHI 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 Primary Primary Problem Common generalise generalize Sp cari d d - CHI osteoarthr (osteo)art 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 - [facility] [id number] Chronic Problem Comm on deep vein Spirit thrombosis - CHI (DVT) of St left lower [facility] extremity, Medica l unspecifie Center d vein [id number] Acute gout Problem Co mmon involving Spirit toe of - CHI left foot, St unspecifie [facility] d cause Medical Center History of Personal Problem Com mon thromboemb history of Sp cari olism of other - CHI vein venous St thrombosis [facility] and Medical embolism Center Hypokalemi Hypokalemi Problem C ommon a a Spirit - [facility] Nicotine Personal Problem Commo n dependence history of Sp cari nicotine - CHI dependence [facility] Family Family Problem Common history of history of Sp cari ischemic ischemic - CHI heart heart St disease disease [facility] and other Medical diseases Center of the hydraulic assembler y system [id number] Bilateral Problem Com mon carotid Spirit artery - CHI stenosis [facility] [id number] Stenosis Problem Com mon of left Spirit carotid - CHI artery 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 Congestive CHF Problem Commo n heart (congestiv Spirit failure e heart - CHI failure) [facility] Obstructiv Obstructiv Problem C omjoelle e sleep e sleep Spirit apnea apnea - [facility] Benign Benign Problem Common essential essential Spir it hypertensi hypertensi - CHI on [facility] Chronic Chronic Problem Common kidney kidney Spirit disease disease, - CHI unspecifie [facility] Morbid Morbid Problem Common obesity obesity Spirit - CHI [facility] Cervicalgi Cervicalgi Problem C ommon a a Spirit - CHI [facility] [id number] Alcohol Problem Commo n dependence Spirit in - CHI remission [facility] [id number] Iron Problem Common deficiency Spirit anemia, - CHI unspecifie St d iron [facility] deficiency Medica l anemia Center type [id number] Other Problem Common specified Spirit postproced - CHI ural [facility] Spinal Spinal Problem Common stenosis stenosis Spirit in of - CHI cervical cervical St region region [facility] High risk custodial Problem Com mon drug current Spirit monitoring use of - CHI status opiate analgesic [facility] Long-term technician terminal and repeater Problem Com mon current current Spirit use of use of - CHI inhaled inhaled St steroid steroid [facility] Mixed Hyperlipid Problem Commo n hyperlipid emia, Spirit emia mixed CHI [facility] Allergic Seasonal Problem Commo n rhinitis and Spirit perennial - CHI allergic rhinitis [facility] Insomnia Insomnia Problem Commo n Spirit - 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 History of Bariatric Problem Co mmon bariatric surgery Spirit surgical status - CHI procedure [facility] Presence Presence Problem Commo n of of right Spirit orthopedic artificial - CHI joint shoulder St implant joint [facility] Artificial Presence Problem Com mon knee joint of right Spir it present artificial - CHI knee joint [facility] History of History of Problem C ommon fall falling Spirit - CHI [facility] Urogenital Presence Problem Com mon implant of Spirit urogenital - CHI implants [facility] [id number] Acquired Problem Commo n absence of Spirit other - CHI specified parts of [facility] digestive Medical tract Center Hysterecto Acquired Problem Com mon my absence of Spirit both - CHI cervix and uterus [facility] Hypertensi Hypertensi Problem C ommon ve heart ve heart Spirit AND and - CHI chronic chronic St kidney kidney [facility] disease disease Medical with with heart Center congestive failure heart and stage failure 1 through stage 4 chronic kidney disease, or chronic kidney disease Major Major Problem Common depressive depressive Sp cari disorder disorder - CHI [facility] Long-term technician terminal and repeater Problem Com mon current current Spirit use of use of - CHI anticoagul anticoagul ant [facility] Gastro-eso Gastro-eso Problem C ommon phageal phageal Spirit reflux reflux - CHI disease disease St without without [facility] esophagiti esophagiti Me dical s [facility] Family Family Problem Common history of history of Sp cari cancer malignant - CHI neoplasm, St unspecifie [facility] Medical [place] Family Family Problem Common history of history of Sp cari mental other - CHI disorder mental and behavioral [facility] disorders [facility] Walking Difficulty Problem Comm on disability in Spirit walking, - CHI not St elsewhere [facility] classified Medica [facility] [id number] Body mass Problem Com mon index Spirit (BMI) - CHI 40.0-44.9, adult [facility] Spasm Other Problem Common muscle Spirit spasm - [facility] Allergies, Adverse Reactions, Alerts Allergy Allergy Status Severity Reaction(s) Onset Inactive Treating Comm ents Source Name Type Date Date Clinician codeine DA Active SV [facility] 3-10 Clear 00:00: [place] 00 [facility] codeine DA Active SV EXTREME [facility] NAUSEA AND 3-10 Clear ITCHING 00:00: [place] 00 [facility] METOLAZO DRUG Active Unknown-Cmnt 2020-0 Un bautista NE INGREDI 3-31 ity of 00:00: [place] 00 Medical Branch Metolazo Propensi Active Unknown - 2019-0 gout Uni vers ne ty to See comments 3-31 ity of adverse 00:00: [place] reaction 00 Medical s Branch codeine DA Active SV 2018- [facility] 0-10 [facility] 00:[facility]: [facility] l [facility] [place] codeine DA Active SV EXTREME 2018-07 [facility] NAUSEA 0-10 [place] 00:00: Orthope 00 dic Hospita l codeine DA Active SV 2018- [facility] 9-11 [place] 00:00: Orthope 00 dic Hospita l CODEINE DRUG Active High N/V 2017- Univers INGREDI 6-12 ity of 00:00: [place] 00 Medical Branch codeine DA Active SV 2017- [facility] 2-07 [place] 00:00: Orthope 00 dic Hospita l Codeine Codeine Active nausea, Common vomiting Spirit - [facility] Social History Social Habit Start Date Stop Date Quantity Comments Source History of Tobacco [facility] - Use [facility] Sex Assigned At Common Sp cari - [facility] Exposure to 2022-05-20 2022-05-30 Not sure University of SARS-CoV-2 (event) 00:00:00 15:08:00 [facility] Alcohol intake 2022-05-17 2022-05-17 Current University of 00:00:00 00:00:00 non-drinker of [facility] alcohol Branch (finding) Tobacco use and 2021-08-30 2021-08-30 Smokeless Universit y of exposure 00:00:00 00:00:00 tobacco non-user [facility] dical Branch Cigarettes smoked 2021-08-30 2021-08-30 Univers ity of current (pack per 00:00:00 00:00:00 ) - Reported Branch Cigarette 2021-08-30 2021-08-30 University of pack-years 00:00:00 00:00:00 [facility] Smoking Status Start Date Stop Date Source Social History 2016-07-05 21:40:59 2016-07-05 21:40:59 [facility] [place] [facility] Medications Ordered Filled Start Stop Current Ordering Indication Dosage Frequency Signature Comments Components Source Medication Medication Date Date Medication? Clinician (SIG) Name Name HYDROcodone HYDROcodone No 1{table HYDROcodon -Acetaminop -Acetaminop -31 t_as_ne e-Acetamin hen 7.5-325 hen 7.5-325 00:00: eded} ophen MG MG 00 7.5-325 MG spironolact Yes [id number] 25mg Take 1 Univers one 25 mg 1-09 tablet by ity o f tablet 00:00: mouth in [place] 00 the Medical morning. Branch ketoconazol 2021-07 Yes Apply to Un bautista e 2 % cream 1-28 area(s) ity o f 15:38: daily. [address] clobetasoL 2021-07 Yes Apply to Uni vers 0.05 % 1-28 area(s). ity of ointment 15:38: [address] ketoconazol 2021-07 Yes Apply to Un bautista e 2 % cream 1-28 area(s) ity o f 15:38: daily. [address] clobetasoL 2021-07 Yes Apply to Uni vers 0.05 % -28 area(s). ity of ointment 15:38: [address] ketoconazol 2021-07 Yes Apply to Un bautista e 2 % cream 07-30 area(s) ity o f 15:38: daily. [address] clobetasoL 2021-07 Yes Apply to Uni vers 0.05 % 07-30 area(s). ity of ointment 15:38: [address] empaglifloz 2021-07 Yes [id number] 10mg Take 1 Univers in 10 mg 07-30 02 tablet by ity of 00:00: mouth in [place] the Medical morning. [place] empaglifloz 2021-07 Yes [id number] 10mg Take 1 Univers in 10 mg 07-30 02 tablet by ity of 00:00: mouth in [place] the Medical morning. [place] empaglifloz 2021-07 Yes [id number] 10mg Take 1 Univers in 10 mg 07-30 02 tablet by ity of 00:00: mouth in [place] the Medical morning. [place] sulfamethox 2021-07 Yes 1{tbl} 1 tablet, Univers azole-trime 16 Oral, BID, it y of th 02:00: [place] (BACTRIM 00 on [facility] DS) 800-160 05/17/22 Bran ch mg per at 1999, tablet 1 Until tablet Discontinu ed, SLAVA
Re ason for Anti-Infec tive: Documented Infection< br>Documen james Infection Site: Skin / Soft Tissue<br& gt;Duratio n of Therapy: 10 days cefTRIAXone 2021-07 1000mg 1,000 mg, Univers (ROCEPHIN) 1-16 16 IV ity of 1,000 mg in 01:30: 02:38 [place], [place] NaCl 0.9% 00 :00 ONCE, 1 Medical (NS) 50 mL dose, On Branc h MINI-BAG 05/17/22 at 1930, Administer over 30 Minutes, 50 mL
Reas on for Anti-Infec tive: Documented Infection< br>Documen james Infection Site: Skin / Soft Tissue
Duration of Therapy: Other (see Comments) sulfamethox 2021-07 Yes [id number] 1{tbl} Take 1 Univers azole-trime 1-15 [id number] tablet by i ty of thoprim 00:00: mouth [place] 800-160 mg 00 every 12 Medic al per tablet (twelve) Branc h hours. sulfamethox 2021-07 Yes [id number] 1{tbl} Take 1 Univers azole-trime 1-15 [id number] tablet by i ty of thoprim 00:00: mouth [place] 800-160 mg 00 every 12 Medic al per tablet (twelve) Branc h hours. sulfamethox 2021-07 Yes [id number] 1{tbl} Take 1 Univers azole-trime 1-15 [id number] tablet by i ty of thoprim 00:00: mouth [place] 800-160 mg 00 every 12 Medic al per tablet (twelve) Branc h hours. sulfamethox 2021-07 Yes [id number] 1{tbl} Take 1 Univers azole-trime 1-15 [id number] tablet by i ty of thoprim 00:00: mouth [place] 800-160 mg 00 every 12 Medic al per tablet (twelve) Branc h hours. sulfamethox 2021-07 Yes [id number] 1{tbl} Take 1 Univers azole-trime 1-15 [id number] tablet by i ty of thoprim 00:00: mouth [place] 800-160 mg 00 every 12 Medic al per tablet (twelve) Branc h hours. cephALEXin 2021-07 [id number] 500mg Take 1 Univers (KEFLEX) 1-15 05-28 [id number] capsule by it y of 500 mg 00:00: 05:59 mouth in [place] capsule 00 :00 the Medical morning Branch and 1 capsule at noon and 1 capsule in the evening. Do all this for 10 days. spironolact 2021-07 Yes [id number] 25mg Take 1 Univers one 25 mg 0-11 tablet by ity o f tablet 00:00: mouth in [place] 00 the Medical morning. Branch spironolact 2021-07 Yes [id number] 25mg Take 1 Univers one 25 mg 0-11 tablet by ity o f tablet 00:00: mouth in [place] 00 the Medical morning. Branch spironolact 2021-07 Yes [id number] 25mg Take 1 Univers one 25 mg 0-11 tablet by ity o f tablet 00:00: mouth in [place] 00 the Medical morning. Branch spironolact 2021-07 Yes [id number] 25mg Take 1 Univers one 25 mg 0-11 tablet by ity o f tablet 00:00: mouth in [place] 00 the Medical morning. Branch spironolact 2021-07 Yes [id number] 25mg Take 1 Univers one 25 mg 0-11 tablet by ity o f tablet 00:00: mouth in [place] 00 the Medical morning. Branch spironolact 2021-073- No [id number] 25mg Take 1 Univers one 25 mg 0-11 - tablet by ity of tablet 00:00: 00:00 mouth in [place] 00 :00 the Medical morning. Branch KCL 20 mEq 2021-0 Yes 20meq Take 1 Univ ers tablet 8-22 tablet by ity of 00:00: mouth in [place] the Medical morning Branch and 1 tablet in the evening. KCL 20 mEq 2-0 Yes 20meq Take 1 Univ ers tablet 8-22 tablet by ity of 00:00: mouth in [place] the Medical morning Branch and 1 tablet in the evening. KCL 20 mEq 2021-0 Yes 20meq Take 1 Univ ers tablet 8-22 tablet by ity of 00:00: mouth in [place] [address] the Medical morning Branch and 1 tablet in the evening. KCL 20 mEq 2-0 Yes 20meq Take 1 Univ ers tablet 8-22 tablet by ity of 00:00: mouth in [place] the Medical morning Branch and 1 tablet in the evening. KCL 20 mEq 2-0 Yes 20meq Take 1 Univ ers tablet 8-22 tablet by ity of 00:00: mouth in [place] the Medical morning Branch and 1 tablet in the evening. KCL 20 mEq 2-0 Yes 20meq Take 1 Univ ers tablet 8-22 tablet by ity of 00:00: mouth in [place] [address] the Medical morning Branch and 1 tablet in the evening. KCL 20 mEq 2022-0 Yes 20meq Take 1 Univ ers tablet 8-22 tablet by ity of 00:00: mouth in [place] [address] the Medical morning Branch and 1 tablet in the evening. apixaban 2021-0 Yes 1473 2.5mg Take 1 Univer s 2.5 mg 8-12 tablet by ity of tablet 00:00: mouth in [place] [address] the Medical morning Branch and 1 tablet in the evening. Indication s: blood clot in a deep vein of the extremitie s apixaban 2021-0 Yes 1473 2.5mg Take 1 Univer s 2.5 mg 8-12 tablet by ity of tablet 00:00: mouth in [place] [address] the [facility] morning [place] and 1 tablet in the evening. Indication s: blood clot in a deep vein of the extremitie s apixaban 2021-0 Yes 1473 2.5mg Take 1 Univer s 2.5 mg 8-12 tablet by ity of tablet 00:00: mouth in [place] [address] the [facility] and 1 tablet in the evening. Indication s: blood clot in a deep vein of the extremitie s apixaban 2021-0 Yes 1473 2.5mg Take 1 Univer s 2.5 mg 8-12 tablet by ity of tablet 00:00: mouth in [address] and 1 tablet in the evening. Indication s: blood clot in a deep vein of the extremitie s apixaban 2021- Yes 1473 2.5mg Take 1 Univer s 2.5 mg 8-12 tablet by ity of tablet 00:00: mouth in [address] and 1 tablet in the evening. Indication s: blood clot in a deep vein of the extremitie s apixaban 2021- Yes 1473 2.5mg Take 1 Univer s 2.5 mg 8-12 tablet by ity of tablet 00:00: mouth in [place] [address] the [facility] and 1 tablet in the evening. Indication s: blood clot in a deep vein of the extremitie s apixaban 2021- Yes 1473 2.5mg Take 1 Univer s 2.5 mg 8-12 tablet by ity of tablet 00:00: mouth in [address] and 1 tablet in the evening. Indication s: blood clot in a deep vein of the extremitie s apixaban 2021-0 Yes 1473 2.5mg Take 1 Univer s 2.5 mg 8-12 tablet by ity of tablet 00:00: mouth in [address] and 1 tablet in the evening. Indication s: blood clot in a deep vein of the extremitie s Amoxicillin Amoxicillin 0 2021- No 1{table BID Amoxicilli -Pot -Pot 8-10 08-15 t} n-Pot Clavulanate Clavulanate 00:00: 00:00 Clavulanat 875-125 MG 875-125 MG 00 :00 e 875-125 MG Amoxicillin Amoxicillin 2021-0 202- No 1{table BID Amoxicilli -Pot -Pot 02-09 t} n-Pot Clavulanate Clavulanate 00:00: 00:00 Clavulanat 875-125 MG 875-125 MG 00 :00 e 875-125 MG Amoxicillin Amoxicillin 2021- No 1{table BID Amoxicilli -Pot -Pot 02-09 t} n-Pot Clavulanate Clavulanate 00:00: 00:00 Clavulanat 875-125 MG 875-125 MG 00 :00 e 875-125 MG Sulfamethox Sulfamethox 2021- No 1{table BID Sulfametho azole-Trime azole-Trime 01-27 t} xazole-Tri thoprim thoprim 00:00: 00:00 methoprim 800-160 MG 800-160 MG 00 :00 800-160 MG Sulfamethox Sulfamethox 2021-0 202- No 1{table BID Sulfametho azole-Trime azole-Trime 01-27 t} xazole-Tri thoprim thoprim 00:00: 00:00 methoprim 800-160 MG 800-160 MG 00 :00 800-160 MG traZODONE 2021-0 Yes 150mg Take 150 Uni vers 100 mg 7-25 mg by ity of tablet 15:36: mouth at [place] [address] bedtime. Medical Branch HYDROmorphO Yes 2mg Take 2 mg U nivers ne 4 mg 7-25 by mouth ity of tablet 15:36: every 4 [place] [address] (four) Medical hours as Branch needed. Indication s: last taken ~2 wks ago allopurinoL Yes 300mg Take 300 U nivers 300 mg 7-25 mg by ity of tablet 15:36: mouth [place] 37 daily. Medical Branch traZODONE Yes 150mg Take 150 Uni vers 100 mg 7-25 mg by ity of tablet 15:36: mouth at [place] [address] bedtime. Medical Branch HYDROmorphO Yes 2mg Take 2 mg U nivers ne 4 mg 7-25 by mouth ity of tablet 15:36: every 4 [place] 37 (four) Medical hours as Branch needed. Indication s: last taken ~2 wks ago allopurinoL 2021-0 Yes 300mg Take 300 U nivers 300 mg 7-25 mg by ity of tablet 15:36: mouth [place] 37 daily. Medical Branch traZODONE 2021-0 Yes 150mg Take 150 Uni vers 100 mg 7-25 mg by ity of tablet 15:36: mouth at [place] 37 bedtime. Medical Branch HYDROmorphO 2021-0 Yes 2mg Take 2 mg U nivers ne 4 mg 7-25 by mouth ity of tablet 15:36: every 4 [place] 37 (four) Medical hours as Branch needed. Indication s: last taken ~2 wks ago allopurinoL 2021-0 Yes 300mg Take 300 U nivers 300 mg 7-25 mg by ity of tablet 15:36: mouth [place] 37 daily. Medical Branch traZODONE 2021-0 Yes 150mg [...] mouth [place] 37 daily. Medical Branch traZODONE 2021-0 Yes 150mg Take 150 Uni vers 100 mg 7-25 mg by ity of tablet 15:36: mouth at [place] 37 bedtime. Medical Branch HYDROmorphO 2021-0 Yes 2mg Take 2 mg U nivers ne 4 mg 7-25 by mouth ity of tablet 15:36: every 4 [place] 37 (four) Medical hours as Branch needed. Indication s: last taken ~2 wks ago allopurinoL 2021-0 Yes 300mg Take 300 U nivers 300 mg 7-25 mg by ity of tablet 15:36: mouth [place] 37 daily. Medical Branch traZODONE 2021-0 Yes 150mg Take 150 Uni vers 100 mg 7-25 mg by ity of tablet 15:36: mouth at [place] 37 bedtime. Medical Branch HYDROmorphO 2022-0 Yes [...] at [place] 37 bedtime. Medical Branch HYDROmorphO 2-0 Yes 2mg Take 2 mg U nivers ne 4 mg 7-25 by mouth ity of tablet 15:36: every 4 [place] 37 (four) Medical hours as Branch needed. Indication s: last taken ~2 wks ago allopurinoL 2021-0 Yes 300mg Take 300 U nivers 300 mg 7-25 mg by ity of tablet 15:36: mouth [place] 37 daily. Medical Branch traZODONE 2-0 Yes 150mg Take 150 Uni vers 100 mg 7-25 mg by ity of tablet 15:36: mouth at [place] 37 bedtime. Medical Branch HYDROmorphO 2-0 Yes 2mg Take 2 mg U nivers ne 4 mg 7-25 by mouth ity of tablet 15:36: every 4 [place] 37 (four) Medical hours as Branch needed. Indication s: last taken ~2 wks ago allopurinoL 2-0 Yes 300mg Take 300 U nivers 300 mg 7-25 mg by ity of tablet 15:36: mouth [place] 37 daily. Medical Branch traZODONE 2022-0 Yes 150mg Take 150 Uni vers 100 mg 7-25 mg by ity of tablet 15:36: mouth at [place] 37 bedtime. Medical Branch HYDROmorphO 2022-0 Yes [...] 37 daily. Medical Branch benzonatate 0 Yes [id number] 100mg Take 1 [facility] (TESSALON 5-12 capsule by ity of PERLES) 100 00:00: mouth [place] mg capsule 00 every 8 Medica l (eight) Branch hours as needed for Cough. benzonatate 0 Yes [id number] 100mg Take 1 [facility] (TESSALON 5-12 capsule by ity of PERLES) 100 00:00: mouth [place] mg capsule 00 every 8 Medica l (eight) Branch hours as needed for Cough. benzonatate 2021-0 Yes [id number] 100mg Take 1 [facility] (TESSALON 5-12 capsule by ity of PERLES) 100 00:00: mouth [place] mg capsule 00 every 8 Medica l (eight) Branch hours as needed for Cough. benzonatate 2021-0 Yes [id number] 100mg Take 1 [facility] (TESSALON 5-12 capsule by ity of PERLES) 100 00:00: mouth [place] mg capsule 00 every 8 Medica l (eight) Branch hours as needed for Cough. benzonatate 2021-0 Yes [id number] 100mg Take 1 [facility] (TESSALON 5-12 capsule by ity of PERLES) 100 00:00: mouth [place] mg capsule 00 every 8 Medica l (eight) Branch hours as needed for Cough. benzonatate 2021-0 Yes [id number] 100mg Take 1 [facility] (TESSALON 5-12 capsule by ity of PERLES) 100 00:00: mouth [place] mg capsule 00 every 8 Medica l (eight) Branch hours as needed for Cough. benzonatate 2021-0 Yes [id number] 100mg Take 1 [facility] (TESSALON 5-12 capsule by itgomez of [place]) 100 00:00: mouth [place] mg capsule 00 every 8 Medica l (eight) Branch hours as needed for Cough. benzonatate 0 Yes [id number] 100mg Take 1 [facility] (TESSALON 5-12 capsule by itgomez of [place]) 100 00:00: mouth [place] mg capsule 00 every 8 Medica l (eight) Branch hours as needed for Cough. benzonatate 0 Yes [id number] 100mg Take 1 [facility] (TESSALON 5-12 capsule by itgomez of [place]) 100 00:00: mouth [place] mg capsule 00 every 8 Medica l (eight) Branch hours as needed for Cough. benzonatate Yes [id number] 100mg Take 1 [facility] (TESSALON 5-12 capsule by itgomez [place]) 100 00:00: mouth [place] mg capsule 00 every 8 Medica l (eight) Branch hours as needed for Cough. bumetanide Yes [id number] 3mg Take 1.5 [facility] 2 mg tablet 4-25 02 tablets by it y of 00:00: mouth 2 [place] 00 (two) Medical times Branch daily. metoprolol Yes [id number] 25mg Take 1 U nivers succinate 4-25 tablet by ity o f XL 25 mg 24 00:00: mouth [place] hr tablet 00 daily. Medical Branch atorvastati Yes [id number] 20mg Take 1 [facility] n 20 mg 4-25 tablet by ity of tablet 00:00: mouth [place] 00 daily. Medical Branch bumetanide Yes [id number] 3mg Take 1.5 [facility] 2 mg tablet 4-25 02 tablets by it y of 00:00: mouth 2 [place] 00 (two) Medical times Branch daily. metoprolol Yes [id number] 25mg Take 1 U nivers succinate 4-25 tablet by ity o f XL 25 mg 24 00:00: mouth [place] hr tablet 00 daily. Medical Branch atorvastati Yes [id number] 20mg Take 1 [facility] n 20 mg 4-25 tablet by ity of tablet 00:00: mouth [place] 00 daily. Medical Branch bumetanide Yes [id number] 3mg Take 1.5 [facility] 2 mg tablet 4-25 02 tablets by it y of 00:00: mouth 2 [place] 00 (two) Medical times Branch daily. metoprolol Yes [id number] 25mg Take 1 U nivers succinate 4-25 tablet by ity o f XL 25 mg 24 00:00: mouth [place] hr tablet 00 daily. Medical Branch atorvastati Yes [id number] 20mg Take 1 [facility] n 20 mg 4-25 tablet by ity of tablet 00:00: mouth [place] 00 daily. Medical Branch bumetanide Yes [id number] 3mg Take 1.5 [facility] 2 mg tablet 4-25 02 tablets by it y of 00:00: mouth 2 [place] 00 (two) Medical times Branch daily. metoprolol Yes [id number] 25mg Take 1 U nivers succinate 4-25 tablet by ity o f XL 25 mg 24 00:00: mouth [place] hr tablet 00 daily. Medical Branch atorvastati Yes [id number] 20mg Take 1 [facility] n 20 mg 4-25 tablet by ity of tablet 00:00: mouth [place] 00 daily. Medical Branch bumetanide Yes [id number] 3mg Take 1.5 [facility] 2 mg tablet 4-25 02 tablets by it y of 00:00: mouth 2 [place] 00 (two) Medical times Branch daily. metoprolol Yes [id number] 25mg Take 1 U nivers succinate 4-25 tablet by ity o f XL 25 mg 24 00:00: mouth [place] hr tablet 00 daily. Medical Branch atorvastati Yes [id number] 20mg Take 1 [facility] n 20 mg 4-25 tablet by ity of tablet 00:00: mouth [place] 00 daily. Medical Branch bumetanide Yes [id number] 3mg Take 1.5 [facility] 2 mg tablet 4-25 02 tablets by it y of 00:00: mouth 2 [place] 00 (two) Medical times Branch daily. metoprolol Yes [id number] 25mg Take 1 U nivers succinate 4-25 tablet by ity o f XL 25 mg 24 00:00: mouth [place] hr tablet 00 daily. Medical Branch atorvastati Yes [id number] 20mg Take 1 [facility] n 20 mg 4-25 tablet by ity of tablet 00:00: mouth [place] 00 daily. Medical Branch bumetanide Yes [id number] 3mg Take 1.5 [facility] 2 mg tablet 4-25 02 tablets by it y of 00:00: mouth 2 [place] 00 (two) Medical times Branch daily. metoprolol Yes [id number] 25mg Take 1 U nivers succinate 4-25 tablet by ity o f XL 25 mg 24 00:00: mouth [place] hr tablet 00 daily. Medical Branch atorvastati Yes [id number] 20mg Take 1 [facility] n 20 mg 4-25 tablet by ity of tablet 00:00: mouth [place] 00 daily. Medical Branch bumetanide Yes [id number] 3mg Take 1.5 [facility] 2 mg tablet 4-25 02 tablets by it y of 00:00: mouth 2 [place] 00 (two) Medical times Branch daily. metoprolol Yes [id number] 25mg Take 1 U nivers succinate 4-25 tablet by ity o f XL 25 mg 24 00:00: mouth [place] hr tablet 00 daily. Medical Branch atorvastati Yes [id number] 20mg Take 1 [facility] n 20 mg 4-25 tablet by ity of tablet 00:00: mouth [place] 00 daily. Medical Branch bumetanide Yes [id number] 3mg Take 1.5 [facility] 2 mg tablet 4-25 02 tablets by it y of 00:00: mouth 2 [place] 00 (two) Medical times Branch daily. metoprolol Yes [id number] 25mg Take 1 U nivers succinate 4-25 tablet by ity o f XL 25 mg 24 00:00: mouth [place] hr tablet 00 daily. Medical Branch atorvastati Yes [id number] 20mg Take 1 [facility] n 20 mg 4-25 tablet by ity of tablet 00:00: mouth [place] 00 daily. Medical Branch bumetanide Yes [id number] 3mg Take 1.5 [facility] 2 mg tablet 4-25 02 tablets by it y of 00:00: mouth 2 [place] 00 (two) Medical times Branch daily. metoprolol Yes [id number] 25mg Take 1 U nivers succinate 4-25 tablet by ity o f XL 25 mg 24 00:00: mouth [place] hr tablet 00 daily. Medical Branch atorvastati 2-0 Yes [id number] 20mg Take 1 [facility] n 20 mg [...] times Branch daily as needed. fluticasone Yes [id number] 1{puff} Inhale 1 Univers -umeclidin- 2-11 Puff ity of vilanter 00:00: daily. [place] ([place] [address] Medical ELLIP) Branch 100-62.5-25 mcg DsDv albuterol Yes [id number] 2{puff} Inhale 2 Univers 90 2-11 Puffs ity of mcg/actuati 00:00: every 6 [place] as on inhaler 00 (six) Medical hours as Branch needed for Wheezing or Shortness of Breath. fluticasone Yes [id number] 1{puff} Inhale 1 [facility] -umeclidin- 2-11 Puff ity of vilanter 00:00: daily. [place] ([address] ELLIP) Branch 100-62.5-25 mcg DsDv albuterol Yes [id number] 2{puff} Inhale 2 Univers 90 2-11 Puffs ity of mcg/actuati 00:00: every 6 [place] as on inhaler 00 (six) Medical hours as Branch needed for Wheezing or Shortness of Breath. fluticasone Yes [id number] 1{puff} Inhale 1 [facility] -umeclidin- 2-11 Puff ity of vilanter 00:00: daily. [place] ([address] ELLIP) Branch 100-62.5-25 mcg DsDv albuterol Yes [id number] 2{puff} Inhale 2 [facility] 90 2-11 Puffs ity of mcg/actuati 00:00: every 6 [place] as on inhaler 00 (six) Medical hours as Branch needed for Wheezing or Shortness of Breath. fluticasone 0 Yes [id number] 1{puff} Inhale 1 [facility] -umeclidin- 2-11 Puff ity of vilanter 00:00: daily. [place] ([place] [address] Medical ELLIP) Branch 100-62.5-25 mcg DsDv albuterol 0 Yes [id number] 2{puff} Inhale 2 Univers 90 2-11 Puffs ity of mcg/actuati 00:00: every 6 [place] as on inhaler 00 (six) Medical hours as Branch needed for Wheezing or Shortness of Breath. fluticasone 0 Yes [id number] 1{puff} Inhale 1 [facility] -umeclidin- 2-11 Puff ity of vilanter 00:00: daily. [place] ([address]) Branch 100-62.5-25 mcg DsDv albuterol 0 Yes [id number] 2{puff} Inhale 2 Univers 90 2-11 Puffs ity of mcg/actuati 00:00: every 6 [place] as on inhaler 00 (six) Medical hours as Branch needed for Wheezing or Shortness of Breath. fluticasone 0 Yes [id number] 1{puff} Inhale 1 Univers -umeclidin- 2-11 Puff ity of vilanter 00:00: daily. [place] ([address]) Branch 100-62.5-25 mcg DsDv albuterol 0 Yes [id number] 2{puff} Inhale 2 Univers 90 2-11 Puffs ity of mcg/actuati 00:00: every 6 [place] as on inhaler 00 (six) Medical hours as Branch needed for Wheezing or Shortness of Breath. fluticasone 0 Yes [id number] 1{puff} Inhale 1 [facility] -umeclidin- 2-11 Puff ity of vilanter 00:00: daily. [place] ([address]) Branch 100-62.5-25 mcg DsDv albuterol 0 Yes [id number] 2{puff} Inhale 2 Univers 90 2-11 Puffs ity of mcg/actuati 00:00: every 6 [place] as on inhaler 00 (six) Medical hours as Branch needed for Wheezing or Shortness of Breath. fluticasone 2021-0 Yes [id number] 1{puff} Inhale 1 [facility] -umeclidin- 2-11 Puff ity of vilanter 00:00: daily. [place] ([address]) Branch 100-62.5-25 mcg DsDv albuterol 2021-0 Yes [id number] 2{puff} Inhale 2 [facility] 90 2-11 Puffs ity of mcg/actuati 00:00: every 6 [place] as on inhaler 00 (six) Medical hours as Branch needed for Wheezing or Shortness of Breath. fluticasone Yes [id number] 1{puff} Inhale 1 [facility] -umeclidin- 2-11 Puff ity of vilanter 00:00: daily. [place] [facility] Branch 100-62.5-25 mcg DsDv albuterol Yes [id number] 2{puff} Inhale 2 Univers 90 2-11 Puffs ity of mcg/actuati 00:00: every 6 [place] as on inhaler 00 (six) Medical hours as Branch needed for Wheezing or Shortness of Breath. fluticasone Yes [id number] 1{puff} Inhale 1 Univers -umeclidin- 2-11 Puff ity of vilanter 00:00: daily. [place] [facility] Branch 100-62.5-25 mcg DsDv albuterol Yes [id number] 2{puff} Inhale 2 Univers 90 2-11 Puffs ity of mcg/actuati 00:00: every 6 [place] as on inhaler 00 (six) Medical hours as Branch needed for Wheezing or Shortness of Breath. apixaban 2020-07 Yes [id number] 2.5mg Take 1 Univer s 2.5 mg 2-08 tablet by ity of tablet 00:00: mouth 2 [place] 00 (two) Medical times Branch daily. Indication s: blood clot in a deep vein of the extremitie s apixaban 2020-07 Yes [id number] 2.5mg Take 1 Univer s 2.5 mg 2-08 tablet by ity of tablet 00:00: mouth 2 [place] 00 (two) Medical times Branch daily. Indication s: blood clot in a deep vein of the extremitie s apixaban 2020-07- No [id number] 2.5mg Take 1 Unive rs 2.5 mg 2-08 08-12 tablet by ity of tablet 00:00: 00:00 mouth 2 [place] 00 :00 (two) Medical times Branch daily. Indication s: blood clot in a deep vein of the extremitie s KCL 20 mEq 2020-07 Yes 20meq Take 1 Univ ers tablet 1-10 tablet by ity of 00:00: mouth 2 [place] 00 (two) Medical times Branch daily. spironolact 2020-07 Yes [id number] 25mg Take 1 Univers one 25 mg 1-10 tablet by ity o f tablet 00:00: mouth [place] 00 daily. Medical Branch KCL 20 mEq 2020-07 Yes 20meq Take 1 Univ ers tablet 1-10 tablet by ity of 00:00: mouth 2 [place] 00 (two) Medical times Branch daily. spironolact 2020-07 Yes [id number] 25mg Take 1 [facility] one 25 mg 1-10 tablet by ity o f tablet 00:00: mouth [place] 00 daily. Medical Branch KCL 20 mEq 2020-07 Yes 20meq Take 1 Univ ers tablet 1-10 tablet by ity of 00:00: mouth 2 [place] 00 (two) Medical times Branch daily. spironolact 2020-07 Yes [id number] 25mg Take 1 [facility] one 25 mg 1-10 tablet by ity o f tablet 00:00: mouth [place] 00 daily. Medical Branch spironolact 2020-07 Yes [id number] 25mg Take 1 [facility] one 25 mg 1-10 tablet by ity o f tablet 00:00: mouth [place] 00 daily. Medical Branch spironolact 2020-07- No [id number] 25mg Take 1 [facility] one 25 mg 1-10 10-11 tablet by ity of tablet 00:00: 00:00 mouth [place] 00 :00 daily. Medical Branch KCL 20 mEq 2020-07- No 20meq Take 1 Uni vers tablet 1-10 08-22 tablet by ity of 00:00: 00:00 mouth 2 [place] 00 :00 (two) Medical times Branch daily. Nystatin Nystatin 2020-07- No 1{appli Nystatin [id number] 0-29 11-11 cation} [id number] UNIT/GM UNIT/GM 00:00: 00:00 UNIT/GM 00 :00 Lidocaine 5 Lidocaine 5 No 1{appli TID % % 5-25 cation_ 00:00: as_need 00 ed} Lidocaine 5 Lidocaine 5 No 1{appli TID Lidocaine % % 5-25 cation_ 5 % 00:00: as_need 00 ed} Lidocaine 5 Lidocaine 5 No 1{appli TID Lidocaine % % 5-25 cation_ 5 % 00:00: as_need 00 ed} Lidocaine 5 Lidocaine 5 2020-0 No 1{appli TID Lidocaine % % 5-25 cation_ 5 % 00:00: as_need 00 ed} Lidocaine 5 Lidocaine 5 2020-0 No 1{appli TID Lidocaine % % 5-25 [...] 2020-2020- No 1{table TID GM GM 5-25 06-01 t} 00:00: 00:00 00 :00 Valtrex 1 Valtrex 1 2020-0 2020- No 1{table TID Valtrex 1 GM GM 5-25 06-01 t} GM 00:00: 00:00 00 :00 atorvastati Yes 40mg Take 1 Univ ers n 40 mg 5-06 tablet by ity of tablet 00:00: mouth [place] 00 daily. Medical Branch fluticasone Yes 1{puff} Inhale 1 Univers furoate-sebastian 2-05 Puff ity of anteroL 00:00: daily. 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 Indication s: blood clot in a deep vein of the extremitie s KCL 20 mEq 2019- Yes TAKE 1 Unive rs tablet 2-21 [...] Spirit 00:00: before - [facility] 00 morning [facility] bumetanide 2019-0 Yes Chronic 2mg Take 2 Un bautista 1 mg tablet 8-24 heart tablets by i ty of 00:00: failure mouth [place] 00 with every Medical preserved morning Branch ejection and fraction evening. traZODONE 2019- Yes 100mg Take 100 Uni vers 100 mg 6-01 mg by ity of tablet 21:05: mouth at [place] 50 bedtime. Medical Branch HYDROmorphO 2019- Yes Obstructive 2mg Take 2 mg Univers [...] MG 00:00: Colchicine Colchicine 2020-0 No QD Colchicine 0.6 MG 0.6 MG 4-17 0.6 MG 00:00: 00 Colchicine Colchicine 2020-0 No QD Colchicine 0.6 MG 0.6 MG 4-17 0.6 MG 00:00: Colchicine Colchicine 2020-0 No QD Colchicine 0.6 MG 0.6 MG 4-17 0.6 MG 00:00: 00 Colchicine Colchicine 2020-0 No QD 0.6 MG 0.6 MG 4-17 00:00: Col[place]icine Colchicine 2020-0 No QD Colchicine 0.6 MG 0.6 MG 4-17 0.6 MG 00:00: 00 Colchicine Colchicine 2020-0 No QD Col[place]icine 0.6 MG 0.6 MG 4-17 0.6 MG 00:00: Col[place] Colchicine 2020-0 No QD Colchicine 0.6 [...] 1 Uni vers N 40 mg 4-14 05-06 TABLET BY ity of tablet 00:00: 00:00 MOUTH [place] 00 :00 EVERY DAY Medical Branch methocarbam 2019-0 Yes 750mg Take 750 U nivers ol 2-28 mg by ity of (ROBAXIN) 21:42: mouth 3 [place] 750 mg 03 (three) Medical tablet times Branch daily as needed. benzonatate 2020-0 Yes Bronchitis 100mg Take 1 Univers 100 mg 2-28 capsule by ity of capsule 00:00: mouth 3 [place] 00 (three) Medical times Branch daily as needed for Cough. benzonatate 2020-0 Yes [id number] 100mg Take 1 [facility] 100 mg 2-28 capsule by ity of capsule 00:00: mouth 3 [place] 00 (three) Medical times Branch daily as needed for Cough. benzonatate 2020-0 Yes [id number] 100mg Take 1 [facility] 100 mg 2-28 capsule by ity of capsule 00:00: mouth 3 [place] 00 (three) Medical times Branch daily as needed for Cough. benzonatate 2020-0 Yes [id number] 100mg Take 1 [facility] 100 mg 2-28 capsule by ity of capsule 00:00: mouth 3 [place] 00 (three) Medical times Branch daily as needed for Cough. benzonatate 2020-0 Yes [id number] 100mg Take 1 [facility] 100 mg 2-28 capsule by ity of capsule 00:00: mouth 3 [place] 00 (three) Medical times Branch daily as needed for Cough. benzonatate 2020-0 Yes [id number] 100mg Take 1 [facility] 100 mg 2-28 capsule by ity of capsule 00:00: mouth 3 [place] 00 (three) Medical times Branch daily as needed for Cough. benzonatate 2020-0 Yes [id number] 100mg Take 1 [facility] 100 mg 2-28 capsule by ity of capsule 00:00: mouth 3 [place] 00 (three) Medical times Branch daily as needed for Cough. benzonatate 2020-0 Yes [id number] 100mg Take 1 [facility] 100 mg 2-28 capsule by ity of capsule 00:00: mouth 3 [place] 00 (three) Medical times Branch daily as needed for Cough. benzonatate 2020-0 Yes [id number] 100mg Take 1 [facility] 100 mg 2-28 capsule by ity of capsule 00:00: mouth 3 [place] 00 (three) Medical times Branch daily as needed for Cough. benzonatate 2020-0 Yes [id number] 100mg Take 1 [facility] 100 mg 2-28 capsule by ity of capsule 00:00: mouth 3 [place] 00 (three) Medical times Branch daily as needed for Cough. benzonatate 2020-0 Yes [id number] 100mg Take 1 [facility] 100 mg 2-28 [...] (90 Base) MCG/ACT MCG/ACT 00 MCG/ACT DULoxetine 0 Yes TAKE ONE Uni vers 60 mg 7-06 CAPSULE BY ity of capsule 00:00: MOUTH [place] 00 EVERY DAY Medical Branch DULoxetine 0 [...] MOUTH 00 EVERY DAY Medical Branch DULoxetine 2017-0 Yes TAKE ONE Uni vers 60 mg [...] MOUTH 00 EVERY DAY Medical Branch DULoxetine 2017-0 Yes TAKE ONE Uni vers 60 mg [...] by ity of tablet 00:00: mouth 2 [place] 00 (two) Medical times Branch daily with [...] Memoria 0-05 (Same as: l 15:57: Ativan) [place] Ativan 2015-07 No Notes: [facility]oria 0-05 (Same as: l 15:57: Ativan) [place] Ativan 2015-07 No Notes: [facility]oria 0-05 (Same as: l 15:57: Ativan) [place] Ativan 2015-07 No Notes: [facility]oria 0-05 (Same as: l 15:57: Ativan) [place] Aspirin 2015-07 No Notes: Do Memor ia 0-05 not crush l 14:00: or chew. [place] (Same As: Ecotrin) Potassium 2015-07 No 20 [...] Route: PO, l MEQ 14:00: Drug form: [place] Extended 00 ERTAB, Release Daily, Tablet Dosing [...] not crush l 14:00: or chew. [place] 00 (Same As: Ecotrin) Potassium 2015-07 No 20 mEq, Memor ia Chloride 20 0-05 Route: PO, l MEQ 14:00: Drug form: [place] Extended 00 ERTAB, Release Daily, Tablet Dosing [...] chloride 0-05 (Same as: l 12:00: KCL) [place] 00 Infuse over 2 hours. potassium 2015-07 No Notes: Memori a chloride 0-05 (Same as: l 12:00: KCL) [place] 00 Infuse over 2 hours. potassium 2015-07 No Notes: Memori a chloride 0-05 (Same as: l 12:00: KCL) [place] 00 Infuse over 2 hours. potassium 2015-07 No Notes: Memori a chloride 0-05 (Same as: l 12:00: KCL) [place] 00 Infuse over 2 hours. Furosemide 2015-07 [...] tab, PO, l Tablet 11:52: Daily, # [place] 00 60 tab, 0 Refill(s) Potassium 2015-07 Yes 40 mEq = 2 Me moria Chloride 20 0-05 tab, PO, l MEQ 11:52: BID, # 60 [place] Extended 00 tab, 0 Release Refill(s) Tablet Furosemide 2015-07 Yes 20 mg = 1 Me moria 20 MG Oral 0-05 tab, PO, l Tablet 11:52: Daily, # [place] 00 60 tab, 0 Refill(s) Potassium 2015-07 Yes 40 mEq = 2 Me moria Chloride 20 0-05 tab, PO, l MEQ 11:52: BID, # 60 [place] Extended 00 tab, 0 Release Refill(s) Tablet Furosemide 2015-07 Yes 20 mg = 1 Me moria 20 MG Oral 0-05 tab, PO, l Tablet 11:52: Daily, # [place] 00 60 tab, 0 Refill(s) Potassium 2015-07 Yes 40 mEq = 2 Me moria Chloride 20 0-05 tab, PO, l MEQ 11:52: BID, # 60 [place] Extended 00 tab, 0 Release Refill(s) Tablet [...] KCL) [place] 00 Infuse over 2 hours. celecoxib 2015-07 [...] 0-04 tab, l MEQ 16:43: Route: PO, [place] Extended 00 Drug form: Release ERTAB, Tablet Daily, Dosing Weight 90.909, kg, Priority: NOW, Start date: 04/05/16 11:43:00 CDT, Duration: 30 day, Stop date: 05/05/16 9:00:00 CDT Furosemide 2016- No 20 mg, Memor ia 20 MG [...] day, Stop date: 05/05/16 9:00:00 CDT Potassium 2015-07 No 20 mEq, 1 Mem [...] day, Stop date: 05/05/16 9:00:00 CDT Potassium 2016-1 No 20 mEq, 1 Mem oria Chloride [...] 0-04 (Same as: l 14:00: K-Dur 20) [place] 00 "Do Not Crush" With food and full glass of water potassium 2015-07 No Notes: Memori a chloride 0-04 (Same as: l 14:00: K-Dur 20) [place] 00 "Do Not Crush" With food and full glass of water potassium 2015-07 No Notes: Memori a chloride 0-04 (Same as: l 14:00: K-Dur 20) [place] 00 "Do Not Crush" With food and full glass of water potassium 2015-07 No Notes: Memori a chloride 0-04 (Same as: l 14:00: K-Dur 20) [place] 00 "Do Not Crush" With food and full glass of water potassium 2015-07 No Notes: Memori a chloride 0-04 (Same as: l 08:24: KCL) [place] 00 Infuse over 2 hours. potassium 2015-07 No Notes: Memori a chloride 0-04 (Same as: l 08:24: KCL) [place] 00 Infuse over 2 hours. potassium 2015-07 No Notes: Memori a chloride 0-04 (Same as: l 08:24: KCL) [place] 00 Infuse over 2 hours. potassium 2015-07 No Notes: Memori a chloride 0-04 (Same as: l 08:24: KCL) [place] 00 Infuse over 2 hours. Lasix 2015-07 No Notes: Memoria 0-03 (Same as: l 22:00: Lasix) [place] 00 MEDICATION WASTE Product Size: 40 mg [...] a 0-03 (Same as: l 19:50: Visipaque) [place] 00 . WASTE: F/P - Black; E - [facility] Trash [facility] iodixanol 2015-07 No Notes: Memori a 0-03 (Same as: l 19:50: Visipaque) [place] 00 . WASTE: F/P - Black; E - [facility] Trash Bin Albuterol 2015-07 No Notes: Memori a 0.833 MG/ML 0-03 (Same as: l 17:54: Duoneb) [place] Ipratropium 00 [place] 0.167 MG/ML Inhalant Solution [DuoNeb] Albuterol 2015-07 No Notes: Memori a 0.833 MG/ML 0-03 (Same as: l / 17:54: Duoneb) [place] Ipratropium 00 [place] 0.167 MG/ML Inhalant Solution [DuoNeb] Albuterol 2015-07 No Notes: Memori a 0.833 MG/ML 0-03 (Same as: l / 17:54: Duoneb) [place] Ipratropium 00 [place] 0.167 MG/ML Inhalant Solution [DuoNeb] Albuterol 2015-07 No Notes: Memori a 0.833 MG/ML 0-03 (Same as: l / 17:54: Duoneb) [place] Ipratropium 00 [place] 0.167 MG/ML Inhalant Solution [DuoNeb] Acetaminoph 2015-07 No Notes: Do M emoria en 325 MG / 0-03 not exceed l Hydrocodone 16:53: 4gm/day of [place] Bitartrate 00 acetaminop 10 MG Oral hen. (Same Tablet as: Scotts [Scotts 325/10) ] Acetaminoph 2015-07 No Notes: Do M [place]oria en 325 MG / 0-03 not exceed l Hydrocodone 16:53: 4gm/day of [place] Bitartrate 00 acetaminop 10 MG Oral hen. (Same Tablet as: [place]s [Scotts 325/10) ] Acetaminoph 2015-07 No Notes: Do M emoria en 325 MG / 0-03 not exceed l Hydrocodone 16:53: 4gm/day of [place] Bitartrate 00 acetaminop 10 MG Oral hen. (Same Tablet as: [place]s [Scotts 325/10) ] Acetaminoph 2015-07 No Notes: Do M emoria en 325 MG / 0-03 not exceed l Hydrocodone 16:53: 4gm/day of [place] Bitartrate 00 acetaminop 10 MG Oral hen. (Same Tablet as: [place]s [Scotts 325/10) ] Ativan 2015-07 No Notes: [place]oria 0-03 (Same as: l 16:34: Ativan) [place] 00 Ativan 2015-07 No Notes: [place] 0-03 (Same as: l 16:34: Ativan) [place] 00 Ativan 2015-07 No Notes: [place] 0-03 (Same as: l 16:34: Ativan) [place] 00 Ativan 2015-07 No Notes: [place] 0-03 (Same as: l 16:34: Ativan) [place] 00 Robaxin 2015-07 No Notes: [facility]oria 0-03 (Same l 14:00: as:Robaxin [place] ) Robaxin 2015-07 No Notes: [place]oria 0-03 (Same l 14:00: as:Robaxin [place] ) Robaxin 2015-07 No Notes: [place] 0-03 (Same l 14:00: as:Robaxin [place] ) Robaxin 2015-07 No Notes: [place]oria 0-03 (Same l 14:00: as:Robaxin [place] ) tramadol 2015-07 Yes 50 mg = 1 Manjinder nasir hydrochlori 0-03 tab, PO, l de 50 MG 10:33: Q4H, PRN Megan nn Oral Tablet 00 Pain Score [Ultram] 1-3, X 7 day, # 42 tab, 0 Refill(s) senna 82015-07 Yes 8.6 mg = 1 Me moria [...] day, # 42 tab, 0 Refill(s) senna [id number] Yes 8.6 mg = 1 Me moria [...] 10 MG Oral hen. (Same Tablet as: Scotts [Scotts 325/10) 10/325] tramadol 2015-07 No Notes: Not Mem oria hydrochlori 0-03 to exceed l de 50 MG 10:31: 400mg/day. Her reed Oral Tablet 00 (Same As: [Ultram] Ultram) Acetaminoph 2015-07 No Notes: Do M emoria en 325 MG / 0-03 not exceed l Hydrocodone 10:31: 4gm/day of [place] Bitartrate 00 acetaminop 10 MG Oral hen. (Same Tablet as: Scotts [Scotts 325/10) 10/325] tramadol 2015-07 No Notes: Not Mem oria hydrochlori 0-03 to exceed l de 50 MG 10:31: 400mg/day. Her reed Oral Tablet 00 (Same As: [Ultram] Ultram) Acetaminoph 2015-07 No Notes: Do M emoria en 325 MG / 0-03 not exceed l Hydrocodone 10:31: 4gm/day of [place] Bitartrate 00 acetaminop 10 MG Oral hen. (Same Tablet as: Scotts [Scotts 325/10) 10325] tramadol 2015-07 No Notes: Not Mem oria hydrochlori 0-03 to exceed l de 50 MG 10:31: 400mg/day. Her reed Oral Tablet 00 (Same As: [Ultram] Ultram) Acetaminoph 2015-07 No Notes: Do M emoria en 325 MG / 0-03 not exceed l Hydrocodone 10:31: 4gm/day of [place] Bitartrate 00 acetaminop 10 MG Oral hen. (Same Tablet as: Scotts [Scotts 325/10) 10/325] tramadol 2015-07 No Notes: Not Mem oria hydrochlori 0-03 to exceed l de 50 MG 10:31: 400mg/day. Her reed Oral Tablet 00 (Same As: [Ultram] Ultram) remove 2015-07 No Notes: Memoria patch 0-03 Remove l 02:00: patch 12 [place] 00 hours after applicatio n each day. [...] sodium, 0-02 porcine l porcine 21:00: heparin [place] 2500 UNT/ML 00 Injectable Solution heparin 2015-07 [...] Notes: Memoria 0-01 Chlorasept l 15:30: ic [place] 00 (Same as: Chlorasept ic, Sore Throat [place]) WASTE: F/P - Black; E - Municipal Trash Bin phenol 2015-07 No Notes: Memoria 0-01 Chlorasept l 15:30: ic [place] 00 (Same as: Chlorasept ic, Sore Throat [place]) WASTE: F/P - Black; E - Municipal Trash Bin phenol 2015-07 No Notes: Memoria 0-01 Chlorasept l 15:30: ic [place] 00 (Same as: Chlorasept ic, Sore Throat [place]) WASTE: F/P - Black; E - Municipal Trash Bin phenol 2015-07 No Notes: Memoria 0-01 Chlorasept l 15:30: ic [place] 00 (Same as: Chlorasept ic, Sore Throat [place]) WASTE: F/P - Black; E - Municipal Trash Bin atorvastati 2015-07 No Notes: Manjinder nasir n 0-01 (Same As: l 14:00: Lipitor) [place] 00 MaxEPA 2015-07 No Notes: Memoria 0-01 (Same as: l 14:00: MaxEPA, [place] 00 [place] 3 fish oil ) Non-Formul carisa Drug Microzide 2015-07 No Notes: Memori a 0-01 (Same as: l 14:00: Microzide) [place] 00 influenza 2015-07 No Notes: Memori a virus 0-01 (Same as: l vaccine, 14:00: Fluzone Omre n inactivated 00 Quadrivale nt, Fluarix Quadrivale [...] Memoria 0-01 (Same as: l 14:00: MaxEPA, [place] 3 fish oil ) Non-Formul carisa Drug Microzide 2015-07 No Notes: Memori a 0-01 (Same as: l 14:00: Microzide) influenza 2015-07 No Notes: Memori a virus 0-01 (Same as: l vaccine, 14:00: Fluzone Omer n inactivated 00 Quadrivale nt, Fluarix Quadrivale nt) For 3 years of age and older (0.5 mL IM) [facility] 2015-07 No 350 [...] Memoria 0-01 (Same as: l 14:00: MaxEPA, [place] 3 fish oil ) Non-Formul carisa Drug [...] Memoria 0-01 (Same as: l 14:00: Prinivil, [place] 00 Zestril) atorvastati 2015-07 No Notes: Manjinder nasir n 0-01 (Same As: l 14:00: Lipitor) MaxEPA 2015-07 No Notes: Memoria 0-01 (Same as: l 14:00: MaxEPA, [place] 3 fish oil ) Non-Formul carisa Drug Microzide 2015-07 No Notes: Memori a 0-01 (Same as: l 14:00: Microzide) [place] 00 influenza 2015-07 No Notes: Memori a virus 0-01 (Same as: l vaccine, 14:00: Fluzone Omer n inactivated 00 Quadrivale nt, Fluarix Quadrivale nt) For 3 years of age and older (0.5 mL IM) Shake well before use omega-3 2015-07 No 350 mg, Memoria polyunsatur 0 Route: PO, l ated fatty 14:00: Daily, [...] Notes: Memoria 0-01 (Same l 14:00: as:Robaxin [place] 00 ) Furosemide 2015-07 No Notes: Memor ia 20 MG Oral 0-01 (Same as: l Tablet 14:00: Lasix) Fluoxetine 2015-07 No Notes: Memor ia 0-01 (Same as: l 14:00: Prozac, Sarafem) Fenofibrate 2015-07 No Notes: Manjinder nasir 145 MG Oral 0-01 (Same as: l Tablet 14:00: Tricor) Prinivil 2015-07 No Notes: Memoria 0-01 (Same as: l 14:00: Prinivil, Zestril) Dilaudid 2015-07 No Notes: Memoria 0-01 (Same as: l 11:41: Dilaudid) Dilaudid 2015-07 No Notes: Memoria 0-01 (Same as: l 11:41: Dilaudid) Dilaudid 2015-07 No Notes: Memoria 0-01 (Same as: l 11:41: Dilaudid) Dilaudid 2015-07 No Notes: Memoria 0-01 (Same as: l 11:41: Dilaudid) Acetaminoph 2015-07 No Notes: Do M emoria en 325 MG / 0-01 not exceed l Hydrocodone 11:40: 4gm/day of [place] Bitartrate 00 acetaminop 10 MG Oral hen. (Same Tablet as: Scotts [Scotts 325/10) 10/325] Acetaminoph 2015-07 No Notes: Do M emoria en 325 MG / 0-01 not exceed l Hydrocodone 11:40: 4gm/day of [place] Bitartrate 00 acetaminop 10 MG Oral hen. (Same Tablet as: Scotts [Scotts 325/10) 10/325] Acetaminoph 2015-07 No Notes: Do M emoria en 325 MG / 0-01 not exceed l Hydrocodone 11:40: 4gm/day of [place] Bitartrate 00 acetaminop 10 MG Oral hen. (Same Tablet as: Scotts [Scotts 325/10) 10/325] Acetaminoph 2015-07 No Notes: Do M emoria en 325 MG / 0-01 not exceed l Hydrocodone 11:40: 4gm/day of [place] Bitartrate 00 acetaminop 10 MG Oral hen. (Same Tablet as: Scotts [Scotts 325/10) 10/325] Famotidine 2015-07 No Notes: Memor ia 0-01 (Same as: l 02:00: Pepcid) [place] 00 Can be dilute in 5-10cc NS IVP: Slow IV push over at least 2 minutes. Acetaminoph 2015-07 No Notes: Manjinder nasir en 0-01 Infuse l 02:00: over 15 [place] 00 minutes Do not exceed 4gm/day of acetaminop hen MEDICATION WASTE Product Size: 1000 mg Product Wasted: ___ mg Saline 2015-07 No Notes: Memoria Flush 0.9% 0-01 Same as: l 02:00: BD [place] 00 Posiflush Sterile Docusate 2015-07 No Notes: Memoria 0-01 (Same as: l 02:00: Colace) [place] 00 (Do Not Crush) sennosides, 2015-07 No Notes: Manjinder nasir CUSTODIAL 0-01 (Same as: l 02:00: Senokot) [place] Famotidine 2015-07 No Notes: Memor ia 0-01 (Same as: l 02:00: Pepcid) [place] 00 Can be dilute in 5-10cc NS IVP: Slow IV push over at least 2 minutes. Acetaminoph 2015-07 No Notes: Manjinder nasir en 0-01 Infuse l 02:00: over 15 [place] 00 minutes Do not exceed 4gm/day of acetaminop hen MEDICATION WASTE Product Size: 1000 mg Product Wasted: ___ mg Saline 2015-07 No Notes: Memoria Flush 0.9% 0-01 Same as: l 02:00: BD [place] 00 Posiflush Sterile Docusate 2015-07 No Notes: Memoria 0-01 (Same as: l 02:00: Colace) [place] 00 (Do Not Crush) sennosides, 2015-07 No Notes: Manjinder nasir CUSTODIAL 0-01 (Same as: l 02:00: Senokot) [place] 00 Famotidine 2015-07 No Notes: Memor ia 0-01 (Same as: l 02:00: Pepcid) [place] 00 Can be dilute in 5-10cc NS IVP: Slow IV push over at least 2 minutes. Acetaminoph 2015-07 No Notes: Manjinder nasir en 0-01 Infuse l 02:00: over 15 [place] 00 minutes Do not exceed 4gm/day of acetaminop hen MEDICATION WASTE Product Size: 1000 mg Product Wasted: ___ mg Saline 2015-07 No Notes: Memoria Flush 0.9% 0-01 Same as: l 02:00: BD [place] 00 Posiflush Sterile Docusate 2015-07 No Notes: Memoria 0-01 (Same as: l 02:00: Colace) [place] 00 (Do Not Crush) sennosides, 2015-07 No Notes: Manjinder nasir CUSTODIAL 0-01 (Same as: l 02:00: Senokot) [place] 00 Famotidine 2015-07 No Notes: Memor ia 0-01 (Same as: l 02:00: Pepcid) [place] 00 Can be dilute in 5-10cc NS IVP: Slow IV push over at least 2 minutes. Acetaminoph 2015-07 No Notes: Manjinder nasir en 0-01 Infuse l 02:00: over 15 [place] 00 minutes Do not exceed 4gm/day of acetaminop hen MEDICATION WASTE Product Size: 1000 mg Product Wasted: ___ mg Saline 2015-07 No Notes: Memoria Flush 0.9% 0-01 Same as: l 02:00: BD [place] 00 Posiflush Sterile Docusate 2015-07 No Notes: Memoria 0-01 (Same as: l 02:00: Colace) [place] (Do Not Crush) sennosides, 2015-07 No Notes: Manjinder nasir CUSTODIAL 0-01 (Same as: l 02:00: Senokot) [place] 00 carvedilol No Notes: Memor ia 9-30 Give with l 22:00: food. [place] 00 (Same As: Coreg) Folic Acid No Notes: Memor ia 9-30 (Same as: l 22:00: Folvite) [place] 00 carvedilol No Notes: Memor ia 9-30 Give with l 22:00: food. [place] 00 (Same As: Coreg) Folic Acid No Notes: Memor ia 9-30 (Same as: l 22:00: Folvite) carvedilol No Notes: Memor ia 04-01 Give with l 22:00: food. [place] 00 (Same As: Coreg) Folic Acid No Notes: Memor ia 04-01 (Same as: l 22:00: Folvite) carvedilol No Notes: Memor ia 04-01 Give with l 22:00: food. [place] 00 (Same As: Coreg) Folic Acid No Notes: Memor ia 04-01 (Same as: l 22:00: Folvite) ceFAZolin No Notes: Memori a (SCIP) + 04-01 (Same As: l sodium 21:00: Ancef, [place] chloride 00 Kefzol) 0.9% INJ 100 mL MEDICATION WASTE Product Size: 1000 mg Product Wasted: ___ mg ceFAZolin No Notes: Memori a (SCIP) + 04-01 (Same As: l sodium 21:00: Ancef, [place] chloride 00 Kefzol) 0.9% INJ 100 mL MEDICATION WASTE Product Size: 1000 mg Product Wasted: ___ mg ceFAZolin No Notes: Memori a (SCIP) + 04-01 (Same As: l sodium 21:00: Ancef, [place] chloride 00 Kefzol) 0.9% INJ 100 mL MEDICATION WASTE Product Size: 1000 mg Product Wasted: ___ mg ceFAZolin No Notes: Memori a (SCIP) + 04-01 (Same As: l sodium 21:00: Ancef, [place] chloride 00 Kefzol) 0.9% INJ 100 mL MEDICATION WASTE Product Size: 1000 mg Product Wasted: ___ mg ropinirole No Notes: Memor ia 04-01 (Same as: l 19:06: Requip) ropinirole No Notes: Memor ia 04-01 (Same as: l 19:06: Requip) ropinirole No Notes: Memor ia 9-30 (Same as: l 19:06: Requip) [place] 00 ropinirole No Notes: Memor ia 9-30 (Same as: l 19:06: Requip) [place] 00 Dexamethaso No Notes: Manjinder nasir ne 04-01 Concentrat l 19:00: ion: [place] 00 4mg/ml Dexamethaso No Notes: Manjinder nasir ne 04-01 Concentrat l 19:00: ion: [place] 00 4mg/ml Dexamethaso No Notes: Manjinder nasir ne 04-01 Concentrat l 19:00: ion: [place] 00 4mg/ml Dexamethaso No Notes: Manjinder nasir ne 04-01 Concentrat l 19:00: ion: [place] 00 4mg/ml Robaxin No Notes: Memoria 9-30 (Same l 18:51: as:Robaxin [place] 00 ) Robaxin No Notes: Memoria 9-30 (Same l 18:51: as:Robaxin [place] ) Robaxin No Notes: Memoria 9-30 (Same l 18:51: as:Robaxin [place] ) Robaxin No Notes: Memoria 9-30 (Same l 18:51: as:Robaxin [place] ) Robaxin No Notes: Memoria 9-30 (Same l 18:11: as:Robaxin [place] ) Robaxin No Notes: Memoria 9-30 (Same l 18:11: as:Robaxin [place] 00 ) Robaxin No Notes: Memoria 9-30 (Same l 18:11: as:Robaxin [place] ) Robaxin No Notes: Memoria 9-30 (Same l 18:11: as:Robaxin [place] ) Dexamethaso No 10 mg, Manjinder nasir ne 04-01 Route: l 18:06: IVP, ONCE, Dosing Weight 90.909, kg, Priority: NOW, Start date: 04/01/16 13:06:00 CDT, Stop date: 04/01/16 13:06:00 CDT Dexamethaso No 10 mg, Manjinder nasir ne 04-01 Route: l 18:06: IVP, ONCE, Dosing Weight 90.909, kg, Priority: NOW, Start date: 04/01/16 13:06:00 CDT, Stop date: 04/01/16 13:06:00 CDT Dexamethaso No 10 mg, Manjinder nasir ne 04-01 Route: l 18:06: IVP, ONCE, Dosing Weight 90.909, kg, Priority: NOW, Start date: 04/01/16 13:06:00 CDT, Stop date: 04/01/16 13:06:00 CDT Dexamethaso No 10 mg, Manjinder nasir ne 04-01 Route: l 18:06: IVP, ONCE, Dosing Weight 90.909, kg, Priority: NOW, Start date: 04/01/16 13:06:00 CDT, Stop date: 04/01/16 13:06:00 CDT Ofirmev No or = 50 Memori a 9-30 kg, Start l 17:13: date: 04/01/16 12:13:00 CDT Ofirmev 0 No or = 50 Memori a 9-30 kg, Start l 17:13: date: 04/01/16 12:13:00 CDT Ofirmev 0 No or = 50 Memori a 9-30 kg, Start l 17:13: date: 04/01/16 12:13:00 CDT Ofirmev 0 No or = 50 Memori a 9-30 kg, Start l 17:13: date: 04/01/16 12:13:00 CDT Ondansetron No Notes: Manjinder nasir 04-01 (Same as: l 17:11: Zofran) MEDICATION WASTE Product Size: 4 mg Product Wasted: ___ mg Flumazenil No Notes: Memor ia 04-01 (Same as: l 17:11: Romazicon) Naloxone 0 No Notes: Memoria 04-01 Same as l 17:11: Narcan Hydromorpho No 0.2 mg, Mem oria ne 30 Route: l 17:11: IVP, [place] 00 Q5Min, Dosing Weight 90.909, kg, PRN Pain Score 7-10, Start date: 04/01/16 12:11:00 CDT, Duration: 4 doses or times, Stop date: Limited # of times Ondansetron No Notes: Manjinder nasir 9-30 (Same as: l 17:11: Zofran) [place] 00 MEDICATION WASTE Product Size: 4 mg Product Wasted: ___ mg Flumazenil No Notes: Memor ia 9-30 (Same as: l 17:11: Romazicon) [place] Naloxone No Notes: Memoria -30 Same as l 17:11: Narcan Hydromorpho No 0.2 mg, Mem oria ne 30 Route: l 17:11: IVP, [place] 00 Q5Min, Dosing Weight 90.909, kg, PRN Pain Score 7-10, Start date: 04/01/16 12:11:00 CDT, Duration: 4 doses or times, Stop date: Limited # of times Ondansetron No Notes: Manjinder nasir -30 (Same as: l 17:: Zofran) [place] 00 MEDICATION WASTE Product Size: 4 mg Product Wasted: ___ mg Flumazenil No Notes: Memor ia 9-30 (Same as: l 17:11: Romazicon) [place] 00 Naloxone 0 No Notes: Memoria 9-30 Same as l 17:11: Narcan Hydromorpho 0 No 0.2 mg, Mem oria ne 9-30 Route: l 17:11: IVP, [place] 00 Q5Min, Dosing Weight 90.909, kg, PRN Pain Score 7-10, Start date: 04/01/16 12:11:00 CDT, Duration: 4 doses or times, Stop date: Limited # of times Ondansetron No Notes: Manjinder nasir 9-30 (Same as: l 17:11: Zofran) [place] 00 MEDICATION WASTE Product Size: 4 mg Product Wasted: ___ mg Flumazenil No Notes: Memor ia 9-30 (Same as: l 17:11: Romazicon) Naloxone No Notes: Memoria 9-30 Same as l 17:11: Narcan Hydromorpho No 0.2 mg, Mem oria ne 9-30 Route: l 17:11: IVP, [place] 00 Q5Min, [...] times, Stop date: 04/02/16 17:00:00 CDT Hydralazine 2016-0 No Notes: Manjinder nasir 9-30 (Same as: l 17:00: Apresoline ) Push over 5 minutes Labetalol No 10 mg, 2 Manjinder nasir 9-30 mL, Route: l 17:00: IVP, Drug form: INJ, Q15Min, Dosing Weight 90.909, kg, PRN Hypertensi on, Start date: 04/01/16 12:00:00 CDT, Duration: 3 doses or times, Stop date: 04/02/16 17:00:00 CDT Hydralazine 2015-0 No Notes: Manjinder nasir 9-30 (Same as: l 17:00: Apresoline ) Push over 5 minutes Labetalol No 10 mg, 2 Manjinder nasir 9-30 mL, Route: l 17:00: IVP, Drug form: INJ, Q15Min, Dosing Weight 90.909, kg, PRN Hypertensi on, Start date: 04/01/16 12:00:00 CDT, Duration: 3 doses or times, Stop date: 04/02/16 17:00:00 CDT Hydralazine 0 No Notes: Manjinder nasir 9-30 (Same as: l 17:00: Apresoline ) Push over 5 minutes Robaxin No Notes: Memoria 9-30 (Same l 16:59: as:Robaxin ) Robaxin No Notes: Memoria 9-30 (Same l 16:59: as:Robaxin ) Robaxin 0 No Notes: Memoria 9-30 (Same l 16:59: as:Robaxin [place] 00 ) Robaxin 0 No Notes: Memoria 9-30 (Same l 16:59: as:Robaxin [place] 00 ) Dextrose 2015-0 No 6.25 gm, Memor ia 50% Syringe [...] 10 MG Oral hen. (Same Tablet as: [place] 325/10) Morphine No 2 mg, Memoria 04-01 [...] 0.9% 04-01 Same as: l 16:58: BD [place] 00 Posiflush Sterile Ondansetron No Notes: Manjinder nasir 04-01 (Same as: l 16:58: Zofran) [place] 00 MEDICATION WASTE Product Size: 4 mg Product Wasted: ___ mg Bisacodyl No Notes: Memori a 04-01 (Same As: l 16:58: Dulcolax, [place] 00 Bisco-Lax) Acetaminoph No Notes: Do M emoria en 325 MG / 04-01 not exceed l Hydrocodone 16:58: 4gm/day of [place] Bitartrate 00 acetaminop 10 MG Oral hen. (Same Tablet as: [place] 325/10) Morphine No 2 mg, Memoria 04-01 Route: l 16:58: IVP, Q1H, [place] 00 Dosing Weight 90.909, kg, PRN Pain Score 7-10, Start date: 04/01/16 11:58:00 CDT, Duration: 30 day, Stop date: 05/01/16 11:57:00 CDT Sodium No 1,000 mL, Memori a Chloride 04-01 Rate: 75 l 0.154 16:58: ml/hr, [place] MEQ/ML Infuse Injectable over: 13.3 Solution hr, Route: IV, Dosing Weight 90.909 kg, Total Volume: 1,000, Start date: 04/01/16 11:58:00 CDT, Duration: 30 day, Stop date: 05/01/16 11:57:00 CDT Dextrose No 6.25 gm, Memor ia 50% Syringe 04-01 12.5 mL, l 16:58: Route: [place] 00 IVP, Drug Form: INJ, Dosing Weight 90.909, kg, PRN, PRN Abnormal Lab Result, Start date: 04/01/16 11:58:00 CDT, Duration: 30 day, Stop date: 05/01/16 11:57:00 CDT Regular No 60 units) Manjinder nasir Insulin, 04-01 WASTE: F/P l Human 100 16:58: - Black; E He rmann UNT/ML - Injectable Municipal Solution Trash Bin Stable [...] not exceed l Hydrocodone 16:58: 4gm/day of [place] Bitartrate acetaminop 10 MG Oral hen. (Same Tablet as: [place] 325/10) Morphine No 2 mg, Memoria 04-01 Route: l 16:58: IVP, Q1H, Dosing Weight 90.909, kg, PRN Pain Score 7-10, Start date: 04/01/16 11:58:00 CDT, Duration: 30 day, Stop date: 05/01/16 11:57:00 CDT Sodium No 1,000 mL, Memori a Chloride 04-01 Rate: 75 l 0.154 16:58: ml/hr, [place] MEQ/ML Infuse Injectable over: 13.3 Solution hr, Route: IV, Dosing Weight 90.909 kg, Total Volume: 1,000, Start date: 04/01/16 11:58:00 CDT, Duration: 30 day, Stop date: 05/01/16 11:57:00 CDT Sodium No 1,000 mL, Memori a Chloride 04-01 Rate: 75 l 0.154 16:58: ml/hr, [place] MEQ/ML Infuse Injectable over: 13.3 Solution hr, Route: IV, Dosing Weight 90.909 kg, Total Volume: 1,000, Start date: 04/01/16 11:58:00 CDT, Duration: 30 day, Stop date: 05/01/16 11:57:00 CDT Dextrose No 6.25 gm, Memor ia 50% Syringe 04-01 12.5 mL, l 16:58: Route: [place] 00 IVP, Drug Form: INJ, Dosing Weight 90.909, kg, PRN, PRN Abnormal Lab Result, Start date: 04/01/16 11:58:00 CDT, Duration: 30 day, Stop date: 05/01/16 11:57:00 CDT Regular No 60 units) Manjinder nasir Insulin, 04-01 WASTE: F/P l Human 100 16:58: - Black; E He rmann UNT/ML - Injectable Municipal Solution Trash Bin Stable for 28 days at room temperatur e Expires in days from ____Date Saline No Notes: Memoria Flush 0.9% 04-01 Same as: l 16:58: BD [place] 00 Posiflush Sterile Ondansetron No Notes: Manjinder nasir 04-01 (Same as: l 16:58: Zofran) [place] 00 MEDICATION WASTE Product Size: 4 mg Product Wasted: ___ mg Bisacodyl No Notes: Memori a 30 (Same As: l 16:58: Dulcolax, [place] Bisco-Lax) Acetaminoph No Notes: Do M emoria en 325 MG / 04-01 not exceed l Hydrocodone 16:58: 4gm/day of [place] Bitartrate 00 acetaminop 10 MG Oral hen. (Same Tablet as: [place] 325/10) Morphine No 2 mg, Memoria 04-01 Route: l 16:58: IVP, Q1H, [place] 00 Dosing Weight 90.909, kg, PRN Pain [...] liposome 04-01 (Same as: l 15:05: Exparel) [place] 00 NOT FOR IV use Postoperat willard [...] dose = 30 mL [266 mg]) bupivacaine 2015-0 No Notes: Manjinder nasir liposome 9-30 (Same as: l 15:05: Exparel) [place] 00 NOT FOR IV use Postoperat willard [...] dose = 30 mL [266 mg]) bupivacaine 2015-0 No Notes: Manjinder nasir liposome 9-30 (Same as: l 15:05: Exparel) [place] 00 NOT FOR IV use Postoperat willard [...] dose = 30 mL [266 mg]) bupivacaine 2015-0 No Notes: Manjinder nasir liposome 9-30 (Same as: l 15:05: Exparel) [place] 00 NOT FOR IV use Postoperat willard [...] mg]) Ancef 2016-0 No 2 gm, Memoria 04-01 Route: l 13:15: IVPB, Drug [place] 00 form: INJ, ONCE, Dosing Weight 90.909, kg, Start date: 04/01/16 8:15:00 CDT, Duration: 1 doses or times, Stop date: 04/01/16 8:15:00 CDT, Surgical Prophylaxi s Only; For patients < 120 kg Ancef 2016-0 No 2 gm, Memoria 04-01 Route: l 13:15: IVPB, Drug [place] 00 form: INJ, ONCE, Dosing Weight 90.909, kg, Start date: 04/01/16 8:15:00 CDT, Duration: 1 doses or times, Stop date: 04/01/16 8:15:00 CDT, Surgical Prophylaxi s Only; For patients < 120 kg Ancef 2016-0 No 2 gm, Memoria 04-01 Route: l 13:15: IVPB, Drug [place] form: INJ, ONCE, Dosing Weight 90.909, kg, Start date: 04/01/16 8:15:00 CDT, Duration: 1 doses or times, Stop date: 04/01/16 8:15:00 CDT, Surgical Prophylaxi s Only; For patients < 120 kg Ancef 2016-0 No 2 gm, Memoria 04-01 Route: l 13:15: IVPB, Drug [place] 00 form: INJ, ONCE, Dosing Weight 90.909, kg, Start date: 04/01/16 8:15:00 CDT, Duration: 1 doses or times, Stop date: 04/01/16 8:15:00 CDT, Surgical Prophylaxi s Only; For patients < 120 kg Lactated 2016-0 No 1,000 mL, Manjinder nasir Ringers 04-01 Rate: 40 l 1,000 mL 11:00: ml/hr, [place] 00 Infuse over: 25 hr, Route: IV, Dosing Weight 90.909 kg, Total Volume: 1,000, Start date: 04/01/16 6:00:00 CDT, Duration: 30 day, Stop date: 05/01/16 5:59:00 CDT Lactated 2016-0 No 1,000 mL, Manjinder nasir [place] 9-30 Rate: 40 l 1,000 mL 11:00: ml/hr, [place] 00 Infuse over: 25 hr, Route: IV, [...] Stop date: 05/01/16 5:59:00 CDT rOPINIRole Yes Restless 1mg Take 1 U [...] daily. Medica l tablet without Branch esophagitis rOPINIRole Yes [id number] 1mg Take 1 U nivers (REQUIP) 1 5-16 tablet by ity of mg tablet 00:00: mouth 3 [place] 00 (three) Medical times Branch daily. gabapentin 2015- Yes [id number] 600mg Take 1 [facility] (NEURONTIN) 5-16 tablet by ity of 600 mg 00:00: mouth 2 [place] tablet 00 (two) Medical times Branch daily. pantoprazol Yes [id number] 40mg Take 1 [facility] e 5-16 tablet by ity of (PROTONIX) 00:00: mouth [place] 40 mg EC 00 daily. Medical tablet Branch rOPINIRole Yes [id number] 1mg Take 1 U nivers (REQUIP) 1 5-16 tablet by ity of mg tablet 00:00: mouth 3 [place] 00 (three) Medical times Branch daily. gabapentin Yes [id number] 600mg Take 1 [facility] (NEURONTIN) 5-16 tablet by ity of 600 mg 00:00: mouth 2 [place] tablet 00 (two) Medical times Branch daily. pantoprazol Yes [id number] 40mg Take 1 [facility] e 5-16 tablet by ity of (PROTONIX) 00:00: mouth [place] 40 mg EC 00 daily. Medical tablet Branch rOPINIRole Yes [id number] 1mg Take 1 U nivers (REQUIP) 1 5-16 tablet by ity of mg tablet 00:00: mouth 3 [place] 00 (three) Medical times Branch daily. gabapentin Yes [id number] 600mg Take 1 [facility] (NEURONTIN) 5-16 tablet by ity of 600 mg 00:00: mouth 2 [place] tablet 00 (two) Medical times Branch daily. pantoprazol Yes [id number] 40mg Take 1 [facility] e 5-16 tablet by ity of (PROTONIX) 00:00: mouth [place] 40 mg EC 00 daily. Medical tablet Branch rOPINIRole Yes [id number] 1mg Take 1 U nivers (REQUIP) 1 5-16 tablet by ity of mg tablet 00:00: mouth 3 [place] 00 (three) Medical times Branch daily. gabapentin Yes [id number] 600mg Take 1 [facility] (NEURONTIN) 5-16 tablet by ity of 600 mg 00:00: mouth 2 [place] tablet 00 (two) Medical times Branch daily. pantoprazol Yes [id number] 40mg Take 1 [facility] e 5-16 tablet by ity of (PROTONIX) 00:00: mouth [place] 40 mg EC 00 daily. Medical tablet Branch rOPINIRole Yes [id number] 1mg Take 1 U nivers (REQUIP) 1 5-16 tablet by ity of mg tablet 00:00: mouth 3 [place] 00 (three) Medical times Branch daily. gabapentin Yes [id number] 600mg Take 1 [facility] (NEURONTIN) 5-16 tablet by ity of 600 mg 00:00: mouth 2 [place] tablet 00 (two) Medical times Branch daily. pantoprazol Yes [id number] 40mg Take 1 [facility] e 5-16 tablet by ity of (PROTONIX) 00:00: mouth [place] 40 mg EC 00 daily. Medical tablet Branch rOPINIRole Yes [id number] 1mg Take 1 U nivers (REQUIP) 1 5-16 tablet by ity of mg tablet 00:00: mouth 3 [place] 00 (three) Medical times Branch daily. gabapentin Yes [id number] 600mg Take 1 [facility] (NEURONTIN) 5-16 tablet by ity of 600 mg 00:00: mouth 2 [place] tablet 00 (two) Medical times Branch daily. pantoprazol Yes [id number] 40mg Take 1 [facility] e 5-16 tablet by ity of (PROTONIX) 00:00: mouth [place] 40 mg EC 00 daily. Medical tablet Branch rOPINIRole Yes [id number] 1mg Take 1 U nivers (REQUIP) 1 5-16 tablet by ity of mg tablet 00:00: mouth 3 [place] 00 (three) Medical times Branch daily. gabapentin Yes [id number] 600mg Take 1 [facility] (NEURONTIN) 5-16 tablet by ity of 600 mg 00:00: mouth 2 [place] tablet 00 (two) Medical times Branch daily. pantoprazol Yes [id number] 40mg Take 1 [facility] e 5-16 tablet by ity of (PROTONIX) 00:00: mouth [place] 40 mg EC 00 daily. Medical tablet Branch rOPINIRole Yes [id number] 1mg Take 1 U nivers (REQUIP) 1 5-16 tablet by ity of mg tablet 00:00: mouth 3 [place] 00 (three) Medical times Branch daily. gabapentin Yes [id number] 600mg Take 1 [facility] (NEURONTIN) 5-16 tablet by [facility] of 600 mg 00:00: mouth 2 [place] tablet 00 (two) Medical times [facility] daily. pantoprazol 2016 Yes [id number] 40mg Take 1 [facility] 5-16 tablet by [facility] of (PROTONIX) 00:00: mouth [place] 40 mg EC 00 daily. Medical tablet [facility] rOPINIRole Yes [id number] 1mg Take 1 [facility] (REQUIP) 1 5-16 tablet by [facility] of mg tablet 00:00: mouth 3 [place] 00 (three) Medical times [facility] daily. gabapentin Yes [id number] 600mg Take 1 [facility] (NEURONTIN) 5-16 tablet by [facility] of 600 mg 00:00: mouth 2 [place] tablet 00 (two) Medical times [facility] daily. pantoprazol Yes [id number] 40mg Take 1 [facility] 5-16 tablet by [facility] of (PROTONIX) 00:00: mouth [place] 40 mg EC 00 daily. Medical tablet [facility] rOPINIRole Yes [id number] 1mg Take 1 [facility] (REQUIP) 1 5-16 tablet by [facility] of mg tablet 00:00: mouth 3 [place] 00 (three) Medical times [facility] daily. gabapentin Yes [id number] 600mg Take 1 [facility] (NEURONTIN) 5-16 tablet by [facility] of 600 mg 00:00: mouth 2 [place] tablet 00 (two) Medical times [facility] daily. pantoprazol Yes [id number] 40mg Take 1 [facility] 5-16 tablet by [facility] of (PROTONIX) 00:00: mouth [place] 40 mg EC 00 daily. Medical tablet [facility] foLIC acid Yes TAKE 1 Un[facility] [...] e 150 MG Nystatin Nystatin No Nystatin [id number] UNIT/GM UNIT/GM UNIT/GM Requip 1 MG Requip [...] Acid 1 MG 1 MG 1 MG [facility] 3 [facility] 3 No [facility] 3 Singulair Singulair No 1{table QD Singulair [...] e 150 MG Nystatin Nystatin No Nystatin [id number] UNIT/GM UNIT/GM UNIT/GM Requip 1 MG Requip [...] Acid 1 MG 1 MG 1 MG [facility] No [facility] 3 Singulair Singulair No 1{table QD Singulair [...] e 150 MG Nystatin Nystatin No Nystatin 818712 [id number] UNIT/GM UNIT/GM UNIT/GM Requip 1 MG Requip [...] 300 MG 300 MG l 300 MG [facility] 3 No [facility] 3 Folic Acid Folic Acid No Folic [...] 4 eded} MG Nystatin Nystatin No Nystatin 616979 [id number] UNIT/GM UNIT/GM UNIT/GM traZODone traZODone No traZODone [...] MCG/INH MCG/INH MCG/INH Nystatin Nystatin No Nystatin 619512 [id number] UNIT/GM UNIT/GM UNIT/GM Aspirin Aspirin No Aspirin [...] QD Lipitor 10 MG MG t} MG [facility] 3 No [facility] 3 metOLazone metOLazone No QD metOLazone 2.5 MG 2.5 MG 2.5 MG Lidocaine 5 Lidocaine 5 No 1{appli TID Lidocaine % % cation_ 5 % as_need ed} Famotidine Famotidine No 1{table QD Famotidine 20 MG 20 MG t_at_be 20 MG dtime} Allopurinol Allopurinol No QD Allopurino 300 MG 300 MG l 300 MG [facility] 3 No [facility] 3 Singulair Singulair No 1{table QD Singulair 10 MG 10 MG t} 10 MG Breo Breo No Breo Ellipta Ellipta Ellipta 200-25 200-25 200-25 MCG/INH MCG/INH MCG/INH Nystatin Nystatin No Nystatin [id number] 585603 [id number] UNIT/GM UNIT/GM UNIT/GM Aspirin Aspirin No Aspirin [...] one 25 MG t} tone 25 MG [facility] 3 No [facility] 3 metOLazone metOLazone No QD metOLazone 2.5 MG 2.5 MG 2.5 MG Allopurinol Allopurinol No Allopurino 300 MG 300 MG l 300 MG Lidocaine 5 Lidocaine 5 No 1{appli TID Lidocaine % % cation_ 5 % as_need ed} Hydromorpho Hydromorpho No 1{table Hydromorph ne HCl 4 MG ne HCl 4 MG t_as_ne one HCl 4 eded} MG [facility] 3 No [facility] 3 Bumex 2 MG Bumex 2 MG [...] le 2 % Nystatin Nystatin No Nystatin [id number] [id number] [id number] UNIT/GM UNIT/GM UNIT/GM Omeprazole Omeprazole No Omeprazole [...] Metolazone 2.5 MG 2.5 MG 2.5 MG [facility] 3 No [facility] 3 Ropinirole Ropinirole No Ropinirole HCl 1 [...] Metolazone 2.5 MG 2.5 MG 2.5 MG [facility] 3 No [facility] 3 Ropinirole Ropinirole No Ropinirole HCl 1 [...] MG HCl 1 MG HCl 1 MG [facility] 3 [facility] 3 No [facility] 3 Famotidine Famotidine No 1{table QD Famotidine [...] MG HCl 1 MG HCl 1 MG [facility] 3 [facility] 3 No [facility] 3 Famotidine Famotidine No 1{table QD Famotidine [...] HCl 60 MG le} HCl 60 MG [facility] 3 [facility] 3 No [facility] 3 Singulair Singulair No 1{table QD Singulair [...] Omeprazole Omeprazole No 40 MG 40 MG [facility] 3 No Metoprolol Metoprolol No Succinate Succinate [...] Omeprazole 40 MG 40 MG 40 MG [facility] 3 [facility] 3 No [facility] 3 Metoprolol Metoprolol No Metoprolol Succinate Succinate [...] MG ER 25 MG ER 25 MG [facility] 3 No [facility] 3 Breo Breo No Breo Ellipta Ellipta [...] Base) Base) (90 Base) MCG/ACT MCG/ACT MCG/ACT [facility] 3 No [facility] 3 traZODone traZODone No 1{table QD traZODone [...] metOLazone 2.5 MG 2.5 MG 2.5 MG [facility] 3 No [facility] 3 traZODone traZODone No 1{table QD traZODone [...] metOLazone 2.5 MG 2.5 MG 2.5 MG [facility] 3 [facility] 3 No [facility] 3 traZODone traZODone No 1{table QD traZODone [...] Base) Base) (90 Base) MCG/ACT MCG/ACT MCG/ACT [facility] 3 No [facility] 3 traZODone traZODone No 1{table QD traZODone [...] Base) Base) (90 Base) MCG/ACT MCG/ACT MCG/ACT [facility] 3 No [facility] 3 Spironolact Spironolact No 1{table QD Spironolac [...] MG ER 25 MG ER 25 MG [facility] 3 [facility] 3 No [facility] 3 Famotidine Famotidine No 1{table QD Famotidine [...] MG ER 25 MG ER 25 MG [facility] 3 [facility] 3 No [facility] 3 Famotidine Famotidine No 1{table QD Famotidine [...] t} 10 MG Nystatin Nystatin No Nystatin 671952 [id number] UNIT/GM UNIT/GM UNIT/GM Breo Breo No Breo [...] MG ER 25 MG ER 25 MG [facility] 3 [facility] 3 No [facility] 3 Famotidine Famotidine No 1{table QD Famotidine [...] HCl 1 MG Nystatin Nystatin No Nystatin 444348 537346 [id number] UNIT/GM UNIT/GM UNIT/GM traZODone traZODone No 1{table [...] ER 20 MEQ CoQ-10 CoQ-10 No CoQ-10 [facility] 3 No [facility] 3 Omeprazole Omeprazole No Omeprazole 40 MG [...] HCl 1 MG Nystatin Nystatin No Nystatin 485420 574859 359955 UNIT/GM UNIT/GM UNIT/GM traZODone traZODone No 1{table [...] ER 20 MEQ CoQ-10 CoQ-10 No CoQ-10 [facility] 3 No [facility] 3 Omeprazole Omeprazole No Omeprazole 40 MG [...] 600 MG 600 MG t} 600 MG [facility] 3 [facility] 3 No [facility] 3 HYDROmorpho HYDROmorpho No 1{table HYDROmorph ne [...] tone 25 MG Nystatin Nystatin No Nystatin 615851 000694 [id number] UNIT/GM UNIT/GM UNIT/GM Metoprolol Metoprolol No Metoprolol [...] 600 MG 600 MG t} 600 MG [facility] 3 [facility] 3 No [facility] 3 HYDROmorpho HYDROmorpho No 1{table HYDROmorph ne [...] tone 25 MG Nystatin Nystatin No Nystatin 900304 658375 895994 UNIT/GM UNIT/GM UNIT/GM Metoprolol Metoprolol No Metoprolol [...] 600 MG 600 MG t} 600 MG [facility] 3 [facility] 3 No [facility] 3 HYDROmorpho HYDROmorpho No 1{table HYDROmorph ne [...] tone 25 MG Nystatin Nystatin No Nystatin 848448 533888 [id number] UNIT/GM UNIT/GM UNIT/GM Metoprolol Metoprolol No Metoprolol [...] Acid 1 MG 1 MG 1 MG [facility] 3 No [facility] 3 Immunizations Ordered Filled Immunization Date Status Comments Sourc e Immunization Name Name SARS-COV-2 COVID-19 2021-08-13 Completed [facility] of VERA/J&J VACCINE 00:00:00 [facility] SARS-COV-2 COVID-19 2021-08-13 Completed [facility] of VERA/J&J VACCINE 00:00:00 [facility] SARS-COV-2 COVID-19 2021-08-13 Completed [facility] of VERA/J&J VACCINE 00:00:00 [facility] SARS-COV-2 COVID-19 2021-08-13 Completed [facility] of VERA/J&J VACCINE 00:00:00 [facility] SARS-COV-2 COVID-19 2021-08-13 Completed [facility] of VERA/J&J VACCINE 00:00:00 [facility] SARS-COV-2 COVID-19 2021-08-13 Completed [facility] of VERA/J&J VACCINE 00:00:00 [facility] SARS-COV-2 COVID-19 2021-08-13 Completed [facility] of VERA/J&J VACCINE 00:00:00 [facility] SARS-COV-2 COVID-19 2021-08-13 Completed [facility] of VERA/J&J VACCINE 00:00:00 [facility] SARS-COV-2 COVID-19 2021-08-13 Completed [facility] of VERA/J&J VACCINE 00:00:00 [facility] SARS-COV-2 COVID-19 2021-08-13 Completed [facility]ive rs[facility] of VERA/J&J VACCINE 00:00:00 [facility] COVID-19 Vaccine COVID-19 Vaccine 2020-11-14 [facility] ([facility] 15:55:00 [facility] COVID-19 Vaccine COVID-19 Vaccine 2020-11-14 Completed [facility] (Vera) (Vera) 15:55:00 [facility] COVID-19 Vaccine COVID-19 Vaccine 2020-11-14 Completed [facility] (Vera) (Vera) 15:55:00 [facility] COVID-19 Vaccine COVID-19 Vaccine 2020-11-14 Completed [facility] (Vera) (Vera) 15:55:00 [facility] COVID-19 Vaccine COVID-19 Vaccine 2020-11-14 Completed [facility] (Vera) (Vera) 15:55:00 [facility] COVID-19 Vaccine COVID-19 Vaccine 2020-11-14 Completed [facility] (Vera) (Vera) 15:55:00 [facility] COVID-19 Vaccine COVID-19 Vaccine 2020-11-14 Completed [facility] (Vera) (Vera) 15:55:00 [facility] COVID-19 Vaccine COVID-19 Vaccine 2020-11-14 Completed [facility] (Vera) (Vera) 15:55:00 [facility] COVID-19 Vaccine COVID-19 Vaccine 2020-11-14 Completed [facility] (Vera) (Vera) 15:55:00 [facility] COVID-19 Vaccine COVID-19 Vaccine 2020-11-14 Completed [facility] (Vera) (Vera) 15:55:00 [facility] COVID-19 Vaccine COVID-19 Vaccine 2020-11-14 Completed [facility] (Vera) (Vera) 15:55:00 [facility] COVID-19 Vaccine COVID-19 Vaccine 2020-11-14 Completed [facility] (Vera) (Vera) 15:55:00 [facility] COVID-19 Vaccine COVID-19 Vaccine 2020-11-14 Completed [facility] (Vera) (Vera) 15:55:00 [facility] COVID-19 Vaccine COVID-19 Vaccine 2020-11-14 Completed [facility] (Vera) (Vera) 15:55:00 [facility] COVID-19 Vaccine COVID-19 Vaccine 2020-11-14 Completed [facility] (Vera) (Vera) 15:55:00 [facility] SARS-COV-2 COVID-19 2020-11-14 Completed [facility] of VERA/J&J VACCINE 00:00:00 [facility] SARS-COV-2 COVID-19 2020-11-14 Completed [facility] of VERA/J&J VACCINE 00:00:00 [facility] SARS-COV-2 COVID-19 2020-11-14 Completed [facility] of VERA/J&J VACCINE 00:00:00 [facility] SARS-COV-2 COVID-19 2020-11-14 Completed [facility] of VERA/J&J VACCINE 00:00:00 [facility] SARS-COV-2 COVID-19 2020-11-14 Completed [facility] of VERA/J&J VACCINE 00:00:00 [facility] SARS-COV-2 COVID-19 2020-11-14 Completed [facility] of VERA/J&J VACCINE 00:00:00 [facility] SARS-COV-2 COVID-19 2020-11-14 Completed [facility]ive rs[facility] of VERA/J&J VACCINE 00:00:00 [facility] SARS-COV-2 COVID-19 2020-11-14 Completed [facility] of VERA/J&J VACCINE 00:00:00 [facility] SARS-COV-2 COVID-19 2020-11-14 Completed [facility]ive [facility] of VERA/J&J VACCINE 00:00:00 [facility] SARS-COV-2 COVID-19 2020-11-14 Completed [facility] of VERA/J&J VACCINE 00:00:00 [facility] Influenza High Dose 2020-07-09 Completed [facility] of Quad 00:00:00 [facility] Influenza High Dose 2020-07-09 Completed [facility] 00:00:00 [facility] Influenza High Dose 2020-07-09 Completed [facility] 00:00:00 [facility] Influenza High Dose 2020-07-09 Completed [facility] 00:00:00 [facility] Influenza High Dose 2020-07-09 Completed [facility] of [facility] 00:00:00 [facility] Influenza High Dose 2020-07-09 Completed [facility] of [facility] 00:00:00 [facility] Influenza High Dose 2020-07-09 Completed [facility] of [facility] 00:00:00 [facility] Influenza High Dose 2020-07-09 Completed [facility] 00:00:00 [facility] Influenza High Dose 2020-07-09 Completed [facility] of [facility] 00:00:00 [facility] Influenza High Dose 2020-07-09 Completed [facility] 00:00:00 [facility] Influenza High Dose 2020-07-09 Completed [facility] of [facility] 00:00:00 [facility] Influenza High Dose 2018-05-10 Completed Unive rsity of 00:00:00 [facility] Influenza High Dose 2018-05-10 Completed [facility]ive rsity of 00:00:00 [facility] Influenza High Dose 2018-05-10 Completed Unive rsity of 00:00:00 [facility] Influenza High Dose 2018-05-10 Completed Unive rsity of 00:00:00 [facility] Influenza High Dose 2018-05-10 Completed [facility]ive rsity of 00:00:00 [facility] Influenza High Dose 2018-05-10 Completed [facility]ive rsity of 00:00:00 [facility] Influenza High Dose 2018-05-10 Completed [facility]ive rsity of 00:00:00 [facility] Influenza High Dose 2018-05-10 Completed Unive rsity of 00:00:00 [facility] Influenza High Dose 2018-05-10 Completed [facility]ive [facility]ity of 00:00:00 [facility] Influenza High Dose 2018-05-10 Completed [facility]ive [facility]ity of 00:00:00 [facility] Influenza High Dose 2018-05-10 Completed [facility]ive [facility]ity of 00:00:00 [facility] influenza virus 2016-04-02 Completed [facility] vaccine, 14:11:00 inactivated influenza virus 2016-04-02 Completed [facility] vaccine, 14:11:00 inactivated influenza virus 2016-04-02 Completed [facility] vaccine, 14:11:00 inactivated influenza virus 2016-04-02 Completed [facility] vaccine, 14:11:00 inactivated Vital Signs Vital Name Observation Time Observation Value Comments Source height 2022-08-02 09:00:00 62 [in_i] [facility] weight 2022-08-02 09:00:00 240 [lb_av] [facility] temperature 2022-08-02 09:00:00 97.9 [degF] [facility] bmi 2022-08-02 09:00:00 43.89 kg/m2 [facility] blood pressure 2022-08-02 09:00:00 137 mm[Hg] [facility] blood pressure 2022-08-02 09:00:00 75 mm[Hg] [facility] diastolic [facility] Systolic blood 2022-05-30 21:41:00 127 mm[Hg] Univer sity of pressure [facility] Diastolic blood 2022-05-30 21:41:00 50 mm[Hg] Unive rsity of [facility] Heart rate 2022-05-30 21:41:00 92 /min [facility] Body temperature 2022-05-30 21:41:00 36.56 [facility] 2022-05-30 21:41:00 16 /min [facility] Body weight 2022-05-30 21:41:00 110.406 kg [facility] BMI 2022-05-30 21:41:00 41.78 kg/m2 [facility] Oxygen saturation in 2022-05-30 21:41:00 96 /min [facility] Arterial blood by [facility] height 2022-05-24 16:30:00 62 [in_i] [facility] weight 2022-05-24 16:30:00 243.6 [lb_av] [facility] temperature 2022-05-24 16:30:00 96.0 [degF] [facility] bmi 2022-05-24 16:30:00 44.55 kg/m2 [facility] oximetry 2022-05-24 16:30:00 97 % [facility] respiratory rate 2022-05-24 16:30:00 17 /min [facility] blood pressure 2022-05-24 16:30:00 137 mm[Hg] Common [facility] - systolic [facility] blood pressure 2022-05-24 16:30:00 75 mm[Hg] Common [facility] - diastolic [facility] Systolic blood 2022-05-18 04:08:00 137 mm[Hg] Univer sity of [facility] Diastolic blood 2022-05-18 04:08:00 78 mm[Hg] Unive rsity of [facility] Heart rate 2022-05-18 04:08:00 100 /[facility] temperature 2022-05-18 04:08:00 36.11 [facility]indy [facility] Respiratory rate 2022-05-18 04:08:00 20 /min [facility] Oxygen saturation in 2022-05-18 04:08:00 96 /min [facility] blood by [facility] Body height 2022-05-17 23:37:00 162.6 cm [facility] Body weight 2022-05-17 23:37:00 108.863 kg [facility] BMI 2022-05-17 23:37:00 41.20 kg/m2 [facility] height 2022-02-21 13:40:00 62 [in_i] [facility] weight 2022-02-21 13:40:00 238 [lb_av] [facility] temperature 2022-02-21 13:40:00 98.3 [degF] Common [facility] bmi 2022-02-21 13:40:00 43.53 kg/m2 [facility] blood pressure 2022-02-21 13:40:00 117 mm[Hg] [facility] blood pressure 2022-02-21 13:40:00 55 mm[Hg] [facility] diastolic [facility] height 2022-02-21 13:00:00 62 [in_i] [facility] weight 2022-02-21 13:00:00 238 [lb_av] [facility] temperature 2022-02-21 13:00:00 98.3 [degF] Common [facility] bmi 2022-02-21 13:00:00 43.53 kg/m2 [facility] blood pressure 2022-02-21 13:00:00 117 mm[Hg] [facility] blood pressure 2022-02-21 13:00:00 55 mm[Hg] [facility] - diastolic [facility] height 2022-01-27 09:40:00 62 [in_i] [facility] weight 2022-01-27 09:40:00 232.0 [lb_av] [facility] temperature 2022-01-27 09:40:00 98.6 [degF] [facility] bmi 2022-01-27 09:40:00 42.43 kg/m2 [facility] Systolic blood 2022-01-24 20:40:00 107 mm[Hg] Univer sity of [facility] Diastolic blood 2022-01-24 20:40:00 46 mm[Hg] Unive rsity [facility] Heart rate 2022-01-24 20:40:00 95 /min [facility] Body temperature 2022-01-24 20:40:00 36.72 [facility] Respiratory rate 2022-01-24 20:40:00 16 /min [facility] Body weight 2022-01-24 20:40:00 109.362 kg [facility] BMI 2022-01-24 20:40:00 41.38 kg/m2 [facility] Oxygen saturation in 2022-01-24 20:40:00 91 /min [facility] Arterial blood by [facility] height 2021-04-30 15:20:00 62 [in_i] [facility] weight 2021-04-30 15:20:00 232.0 [lb_av] [facility] temperature 2021-04-30 15:20:00 97.0 [degF] Common [facility] bmi 2021-04-30 15:20:00 42.43 kg/m2 [facility] oximetry 2021-04-30 15:20:00 92 % [facility] respiratory rate 2021-04-30 15:20:00 18 /min [facility] blood pressure 2021-04-30 15:20:00 110 mm[Hg] Common [facility] blood pressure 2021-04-30 15:20:00 70 mm[Hg] [facility] height 2021-03-11 15:10:00 62 [in_i] [facility] - [facility] weight 2021-03-11 15:10:00 220 [lb_av] [facility] temperature 2021-03-11 15:10:00 98.6 [degF] [facility] - [facility] bmi 2021-03-11 15:10:00 40.23 kg/m2 [facility] blood pressure 2021-03-11 15:10:00 136 mm[Hg] [facility] - systolic [facility] blood pressure 2021-03-11 15:10:00 71 mm[Hg] [facility] - diastolic [facility] height 2020-11-24 10:00:00 62 [in_i] [facility] - [facility] weight 2020-11-24 10:00:00 226.4 [lb_av] [facility] temperature 2020-11-24 10:00:00 97.0 [degF] Common S pirit [facility] bmi 2020-11-24 10:00:00 41.4 kg/m2 [facility] S pirit [facility] oximetry 2020-11-24 10:00:00 95 % [facility] S pirit [facility] respiratory rate 2020-11-24 10:00:00 18 /min [facility] - [facility] blood pressure 2020-11-24 10:00:00 135 mm[Hg] [facility] - systolic [facility] blood pressure 2020-11-24 10:00:00 60 mm[Hg] [facility] - diastolic [facility] height 2020-10-19 11:00:00 62 [in_i] [facility] weight 2020-10-19 11:00:00 223 [lb_av] [facility] - [facility] temperature 2020-10-19 11:00:00 98.6 [degF] [facility] - [facility] bmi 2020-10-19 11:00:00 40.78 kg/m2 [facility] blood pressure 2020-10-19 11:00:00 113 mm[Hg] [facility] - systolic [facility] blood pressure 2020-10-19 11:00:00 78 mm[Hg] [facility] - diastolic [facility] height 2020-09-17 09:20:00 62 [in_i] Common [facility] weight 2020-09-17 09:20:00 245.0 [lb_av] [facility] temperature 2020-09-17 09:20:00 97.2 [degF] [facility] bmi 2020-09-17 09:20:00 44.81 kg/m2 [facility] oximetry 2020-09-17 09:20:00 97 % [facility] respiratory rate 2020-09-17 09:20:00 19 /min [facility] blood pressure 2020-09-17 09:20:00 135 mm[Hg] Common [facility] - systolic [facility] blood pressure 2020-09-17 09:20:00 77 mm[Hg] Common [facility] - diastolic [facility] height 2020-05-07 14:30:00 62 [in_i] Common [facility] weight 2020-05-07 14:30:00 245 [lb_av] [facility] temperature 2020-05-07 14:30:00 97.9 [degF] [facility] bmi 2020-05-07 14:30:00 44.81 kg/m2 [facility] Systolic (mm Hg) 2016-04-06 18:00:00 Manjinder Mccabe Diastolic (mm Hg) 2016-04-06 18:00:00 [facility] Respitory Rate 2016-04-06 18:00:00 [facility] Respitory Rate 2016-04-06 17:00:00 [facility] Systolic (mm Hg) 2016-04-06 17:00:00 Manjinder [facility] Diastolic (mm Hg) 2016-04-06 17:00:00 [facility] Respitory Rate 2016-04-06 16:00:00 [facility] Systolic (mm Hg) 2016-04-06 16:00:00 Manjinder [facility] Diastolic (mm Hg) 2016-04-06 16:00:00 [facility] Temperature Oral (F) 2016-04-06 13:11:00 98.0 F [facility] Temperature Oral (F) 2016-04-06 08:00:00 98.1 F [facility] Temperature Oral (F) 2016-04-06 04:00:00 97.9 F [facility] Heart Rate 2016-04-04 20:00:00 [facility] Heart Rate 2016-04-04 17:35:00 [facility] Heart Rate 2016-04-04 12:58:00 [facility] Weight 2016-04-01 23:43:00 [facility] Height 2016-04-01 11:16:00 157.48 cm [facility] BMI Calculated 2016-04-01 11:16:00 [facility] Weight 2016-04-01 11:16:00 [facility] Weight 2016-03-28 20:53:00 [facility] BMI Calculated 2016-03-28 20:53:00 [facility] Height 2016-03-28 20:53:00 157.48 cm [facility] Procedures Procedure Date / Time Performing Clinician Source Performed CONSENT/REFUSAL FOR 2022-05-30 21:10:29 Doctor Unassigned, [facility] DIAGNOSIS AND TREATMENT [facility] URINALYSIS 2022-05-18 02:10:00 [place] Mondragon [place] [facility] BLOOD CULTURE SCREEN 2022-05-18 00:34:00 Shaan Mondragon [facility] BLOOD CULTURE SCREEN 2022-05-18 00:30:00 Shaan Mondragon [facility] COMP. METABOLIC PANEL 2022-05-18 00:30:00 Shaan Mondragon [facility] ([id number]) Medical Branch CBC WITH DIFF 2022-05-18 00:30:00 Shaan Mondragon [place] [facility] LACTIC ACID WHOLE BLOOD 2022-05-18 00:30:00 Shaan Mondragon [facility] XR TIBIA FIBULA 2 VW LEFT 2022-05-18 00:25:17 Shaan Mondragon [facility] CONSENT/REFUSAL FOR 2022-05-17 23:21:05 [facility] DIAGNOSIS AND TREATMENT [facility] [id number] 2020-09-28 00:00:00 [email or web address] [facility] Laminectomy with spinal 2016-04-01 05:00:00 Manjinder rial [facility] fusion Cervical spinal fusion [facility] Gallbladder operation [facility] ermann Laparoscopic adjustable [facility] gastric banding Operation [facility] Shoulder joint operations [facility] Tonsillectomy [facility] Vein reconstruction [facility] Plan of Care Planned Activity Planned Date Details Comments Source Future Scheduled 2021-04-02 Depression screening [facility] [place] [facility]:00 (procedure) [code = Medical Branch 979221518] Future Scheduled 2009 Medicare Annual [facility] Test 00:00:00 [facility] (procedure) [code = 242291691750588] Future Scheduled 2009 Screening for [facility] Test 00:00:00 osteoporosis Medical Branch (procedure) [code = 846183800] Future Scheduled 2009 PNEUMOCOCCAL VACCINES Un [facility] Test 00:00:00 65+ (1 of 1 - PPSV23) Medica l Branch [code = PNEUMOCOCCAL VACCINES 65+ (1 of 1 - PPSV23)] Future Scheduled 1999 Screening for [facility] Test 00:00:00 malignant neoplasm of Medica l Branch lung (procedure) [code = 342406928] Future Scheduled 1994 Zoster Recombinant [facility] Test 00:00:00 Vaccine (SHINGRIX) (1 Medica l Branch of 2) [code = Zoster Recombinant Vaccine (SHINGRIX) (1 of 2)] Future Scheduled 1963 DTaP,Tdap,and Td Univers [facility] Test 00:00:00 Vaccines (1 - Tdap) Medical Branch [code = DTaP,Tdap,and Td Vaccines (1 - Tdap)] Future Scheduled 1962 [facility] (procedure) [code = Medical Branch [id number]] Future Scheduled 1960 SARS-[facility]-2 (COVID-19) [facility]ine (1) [code = Medical Branch SARS-CoV-2 (COVID-19) Vaccine (1)] Encounters Start End Encounter Admission Attending Care Care Encounter Source Date/Time Date/Time Type Type Clinicians Facility Department ID 2022-08-02 [facility] [id number] Common 11:04:01 Tyree [id number] [facility] 2022-07-19 [facility] [id number] Common 07:40:00 Tyree [id number] [facility] 2021-07-28 [facility] [id number] Common 13:47:50 Tyree [id number] [facility] 2021-07-28 [facility] [id number] Common 13:28:22 Tyree [id number] [facility] 2021-07-28 [facility] [id number] Common 13:19:50 Tyree [id number] [facility] 2021-07-28 [facility] [id number] Common 13:06:37 Tyree [id number] [facility] 2021-07-28 [facility] [id number] Common 12:53:45 Tyree [id number] [facility] 2021-07-28 [facility] [id number] Common 12:53:04 Tyree [id number] [facility] 2021-07-28 [facility] [id number] Common 12:42:16 Tyree [id number] [facility] 2021-07-28 [facility] Common 12:41:36 Tyree [id number] [facility] 2021-07-28 Outpatient Pacheco, [facility] Common 12:02:11 Tyree [id number] [facility] 2021-07-28 Outpatient Pacheco, [facility] Common 11:35:17 Tyree [id number] [facility] 2021-07-28 Outpatient Pacheco, [facility] Common 11:26:08 Tyree [id number] [facility] 2021-07-28 Outpatient Pacheco, [facility] Common 11:25:35 Tyree [id number] [facility] 2021-07-28 [facility] Common 11:20:54 Tyree [id number] [facility] 2021-07-28 [facility] Common 11:16:31 Tyree [id number] [facility] 2022-08-02 2022-08-02 OFFICE [facility] [id number] Co mmon 00:00:00 00:00:00 VISIT NEW Spir it PT LEVEL 4 [facility] 2022-07-15 2022-07-15 Outpatient Flores_A VFP VFP [id number] 1-20 Village 00:00:00 00:00:00 [id number] Family Practic e 2022-07-13 2022-07-13 Outpatient Merissa BIANCHI [facility] [id number] Univers 15:00:00 15:00:00 LAYLA wright f [facility] 2022-07-13 2022-07-13 (TEL) STLC STLC [id number] Co mmon 00:00:00 00:00:00 [facility] 2022-07-11 2022-07-11 Cruzito Bianchi [facility] 1.2.840.114 [id number] Univers 00:00:00 00:00:00 Layla BALLESTEROS 350.1.13.10 [place] [phone] Me dical NAL 059 [facility] 2022-05-30 2022-05-30 Outpatient R MAKSIM [facility] [id number] Univers 15:20:00 16:08:25 LAYLA ity o f [facility] 2022-05-30 2022-05-30 Office Maksim [facility] 1.2.840.114 [id number] Univers 15:20:00 16:08:25 Visit Layla BALLESTEROS 350.1.13.10 ity of [place] [phone] Me dical NAL 059 [facility] 2022-05-30 2022-05-30 Orders Doctor GERMAN 1.2.840.114 [id number] Univers 00:00:00 00:00:00 Only Unassigned, YING 350.1.13.10 [facility] 4.2.7.2.686 [place] [phone] [facility] [address] [place] 2022-05-24 2022-05-24 OFFICE STLMLC STLMLC [id number] Co mmon 00:00:00 00:00:00 VISIT Spirit ESTAB PT - CHI LEVEL 4 [facility] 2022-05-17 2022-05-17 Emergency X [facility] E[facility] [id number] Univers 17:47:00 22:10:00 ity of [facility] 2022-05-17 2022-05-17 Emergency Shaan Mondragon [facility] 1.2.840.114 [id number] Univers 17:47:00 22:10:00 Corina BALLESTEROS 350.1.13.10 i ty [place] [phone] [facility] [address] [place] 2022-05-17 2022-05-17 (TEL) STLMLC STLMLC [id number] Co mmon 00:00:00 00:00:00 Spirit - CHI [facility] 2022-04-12 2022-04-12 Refill Maksim [facility] 1.2.840.114 [id number] Univers 00:00:00 00:00:00 Qiangjun [place] 350.1.13.10 ity of [place] [phone] Wi dical NAL 9 [facility] 2022-02-21 2022-02-21 (TEL) STLMLC STLMLC [id number] Co mmon 00:00:00 00:00:00 Spirit - CHI [facility] 2022-02-21 2022-02-21 SUB ANNUAL STLMLC STLMLC [id number] Common 00:00:00 00:00:00 [facility] Spirit WELLNESS - CHI VISIT [facility] 2022-02-21 2022-02-21 OFFICE STLMLC STLMLC [id number] Co mmon 00:00:00 00:00:00 VISIT [facility] ESTAB PT - CHI LEVEL 4 [facility] 2022-02-18 2022-02-18 [facility] 1.2.840.114 [id number] Univers 00:00:00 00:00:00 [facility] 350.1.13.10 ity of [place] [phone] Wi dical NAL [address] [place] [address] 2022-02-10 2022-02-10 (TEL) STLC STLMLC [id number] Co mmon 00:00:00 00:00:00 [facility] CHI [facility] 2022-02-09 2022-02-09 [facility] 1.2.840.114 [id number] Univers 00:00:00 00:00:00 [facility] 350.1.13.10 [place]y of [place] [phone] Wi dical NAL 9 [facility] 2022-02-09 2022-02-09 (TEL) STLMLC STLMLC [id number] Co mmon 00:00:00 00:00:00 Spirit [facility] 2022-02-09 2022-02-09 (TEL) STLMLC STLMLC [id number] Co mmon 00:00:00 00:00:00 Spirit 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 [facility] 1.2.840.114 [id number] Univers 16:15:00 16:30:00 Visit Layla Bianchi 350.1.13.10 ity of [facility] 4.2.[place].2.[place] [phone] Wi dical NAL 353 [facility] 2022-01-24 2022-01-24 Outpatient R AMKSIM, [facility] [id number] Univers 16:15:00 16:15:00 LAYLA maravilla o [facility] 2022-01-24 2022-01-24 Outpatient R MAKSIM, [facility] [id number] Univers 15:20:00 15:52:53 LAYLA maravilla o [facility] 2022-01-24 2022-01-24 Office [facility] 1.2.840.114 [id number] Univers 15:20:00 15:52:53 Visit Layla BALLESTEROS 350.1.13.10 ity of [facility] 4.2.7.2.[place] [phone] Wi dical NAL 059 [facility] 2022-01-24 2022-01-24 Outpatient R MAKSIM, [facility] [id number] Univers 15:20:00 15:20:00 LAYLA montenegroy o [facility] 2022-01-24 2022-01-24 Outpatient R MAKSIM, [facility] [id number] Univers 15:20:00 15:20:00 LAYLA montenegroy o [facility] 2021-12-13 2021-12-13 Telephone Maksim, [facility] 1.2.797.869 [id number] Univers 00:00:00 00:00:00 Layla [place] 350.1.13.10 ity of [place] [phone] Wi dical NAL 059 [facility] 2021-11-16 2021-11-16 Letter [facility] 1.2.840.114 [id number] Univers 00:00:00 00:00:00 (Out) Marissa C [place] 350.1.13.10 i ty of [place] [phone] Wi dical NAL 296 [facility] 2021-11-16 2021-11-16 [facility] 1.2.840.114 [id number] Univers 00:00:00 00:00:00 (Out) Marissa C [place] 350.1.13.10 i ty of [place] [phone] Wi dical NAL 296 [facility] 2021-11-11 2021-11-11 Office Jerilyn [facility] 1.2.840.114 [id number] Univers 15:00:00 15:48:22 Visit Cosmo BALLESTEROS 350.1.13.10 i ty of [place] 4.[place].2.[place] [phone] Wi dical NAL 085 [facility] 2021-11-11 2021-11-11 Outpatient R COSMO DE [facility] 10 [id number] Univers 15:00:00 15:48:22 COSMO DE i ty of [facility] 2021-11-11 2021-11-11 Outpatient R COSMO DE [facility] 10 [id number] Univers 15:00:00 15:00:00 COSMO DE i ty of [facility] 2021-11-03 2021-11-03 Power Saw Operator Aaron Allison [facility] Main [facility] 1.2.8 40.114 [id number] Univers 16:15:00 16:30:00 Visit Layla Bianchi 350.1.13.10 ity of [place] [phone] Wi dical NAL 353 [facility] 2021-11-03 2021-11-03 Outpatient Merissa BIANCHI [facility] [id number] Univers 16:15:00 16:15:00 LAYLA itgomez o f [facility] 2021-11-03 2021-11-03 Orders Doctor GERMAN 1.2.840.114 [id number] Univers 00:00:00 00:00:00 Only Unassigned, YING 350.1.13.10 ity of [facility] 4.2.7.2.686 [place] as [phone] [address] 2021-11-02 2021-11-02 Ancillary Therapist, [facility] Pulmonary [facility] 1.2.840.114 [id number] Univers 15:00:00 16:00:00 Visit Masoud Santana 350.1.13. 10 ity of [facility] 4.2.7.2.[place] [phone] Wi dical NAL [address] [place] [address] 2021-11-02 2021-11-02 Ancillary Therapist, [facility] Pulmonary [facility] 1.2.840.114 [id number] Univers 15:00:00 16:00:00 Visit Masoud Santana 350.1.13. 10 ity of [facility] 4.2.7.2.[place] [phone] Wi dical [address] 2021-11-02 2021-11-02 Outpatient Merissa SANTANA [facility] [id number] Univers 15:00:00 15:00:00 MASOUD maravilla [facility] 2021-11-02 2021-11-02 Outpatient R HECTOR [facility] [id number] Univers 15:00:00 15:00:00 MASOUD maravilla [facility] 2021-10-28 2021-10-28 Ancillary Therapist, [facility] Pulmonary [facility] 1.2.840.114 [id number] Univers 15:00:00 16:00:00 Visit Masoud Santana 350.1.13. 10 ity of [facility] 4.2.7.2.[place] [phone] Wi dical NAL [address] [place] [address] 2021-10-28 2021-10-28 Outpatient R HECTOR [facility] [id number] Univers 15:00:00 15:00:00 MASOUD taiwo [facility] 2021-10-26 2021-10-26 Ancillary Therapist, Adc Pulmonary [facility] 1.2.840.114 [id number] Univers 15:00:00 16:00:00 Visit SantanaMasoud frausto FAVIAN 350.1.13. 10 ity of [facility] 4.2.7.2.[place] [phone] Wi dical [facility] 296 [facility] 2021-10-26 2021-10-26 [facility] [id number] Univers 15:00:00 15:00:00 MASOUD maravilla [facility] 2021-10-25 2021-10-25 Outpatient R MAKSIM, [facility] [id number] Univers 15:00:00 15:41:05 LAYLA taiwo adriana sharif [facility] 2021-10-25 2021-10-25 Office [facility] 1.2.840.114 [id number] Univers 15:00:00 15:41:05 Visit Layla BALLESTEROS 350.1.13.10 ity of [facility] 4.2.7.2.[place] [phone] [facility] 059 [facility] 2021-10-25 2021-10-25 Outpatient R MAKSIM, [facility] [id number] Univers 15:00:00 15:00:00 LAYLA taiwo adriana sharif [facility] 2021-10-22 2021-10-25 Ancillary Therapist, Adc Pulmonary [facility] 1.2.840.114 [id number] Univers 15:00:00 10:35:34 Visit eHctorMasoud FAVIAN 350.1.13. 10 ity of [facility] 4.2.7.2.[place] [phone] Wi dical NAL [address] [place] [address] 2021-10-22 2021-10-25 [facility] [id number] Univers 15:00:00 10:35:34 MASOUD maravilla [facility] 2021-10-22 2021-10-22 [facility] [id number] Univers 15:00:00 15:00:00 MASOUD montenegrogomez [facility] 2021-10-22 2021-10-22 Outpatient R HECTOR [facility] [id number] Univers 15:00:00 15:00:00 MASOUD maravilla [facility] 2021-10-22 2021-10-22 Orders Doctor PORTER 1.2.840.114 [id number] Univers 00:00:00 00:00:00 Only Unassigned, YING 350.1.13.10 ity of [facility] 4.2.7.2.686 [place] as [phone] [address] 2021-10-21 2021-10-21 Ancillary Therapist, Adc Pulmonary [facility] 1.2.840.114 [id number] Univers 15:00:00 16:00:00 Visit Masoud Santana 350.1.13. 10 ity of [place] [phone] Wi dic[address] 2021-10-21 2021-10-21 Outpatient R HECTOR [facility] [id number] Univers 15:00:00 15:00:00 MASOUD taiwo [facility] 2021-10-21 2021-10-21 Orders Doctor GERMAN 1.2.840.114 [id number] Univers 00:00:00 00:00:00 Only Unassigned, YING 350.1.13.10 ity of [facility] 4.2.7.2.686 [place] as [phone] [address] 2021-10-19 2021-10-19 Orders Doctor PORTER 1.2.840.114 [id number] Univers 00:00:00 00:00:00 Only Unassigned, YING 350.1.13.10 ity of [facility] 4.2.7.2.686 [place] as [phone] [address] 2021-10-13 2021-10-13 Orders Doctor GERMAN 1.2.840.114 [id number] Univers 00:00:00 00:00:00 Only Unassigned, YING 350.1.13.10 ity of [facility] 4.2.7.2.686 [place] as [phone] [address] 2021-10-12 2021-10-12 Ancillary Therapist, [facility] Pulmonary [facility] 1.2.840.114 [id number] Univers 15:00:00 16:00:00 Visit Masoud Santana 350.1.13. 10 ity of [facility] 4.2.7.2.[place] [phone] [address] 2021-10-12 2021-10-12 [facility] [id number] Univers 15:00:00 15:00:00 MASOUD gomez [facility] 2021-10-08 2021-10-08 Ancillary Therapist, [facility] Pulmonary [facility] 1.2.840.114 [id number] Univers 13:00:00 14:00:00 Visit Masoud Santana 350.1.13. 10 ity of [place] [id number] [address] 2021-10-08 2021-10-08 [facility] [id number] Univers 13:00:00 13:00:00 MASOUD gomez [facility] 2021-10-08 2021-10-08 Orders Doctor PORTER 1.2.840.114 [id number] Univers 00:00:00 00:00:00 Only Unassigned, YING 350.1.13.10 ity of [facility] 4.2.7.2.686 [place] [phone] [address] 2021-10-05 2021-10-05 Ancillary Therapist, [facility] Pulmonary [facility] 1.2.840.114 [id number] Univers 15:00:00 16:00:00 Visit Masoud Santana 350.1.13. 10 ity of [facility] 4.2.7.2.[place] [phone] [address] 2021-10-05 2021-10-05 [facility] [id number] Univers 15:00:00 15:00:00 MASOUD maravilla [facility] 2021-10-05 2021-10-05 Orders Doctor GERMAN 1.2.840.114 [id number] Univers 00:00:00 00:00:00 Only Unassigned, YING 350.1.13.10 ity of [place] [facility] 4.2.7.2.686 [place] as [phone] [address] 2021-09-30 2021-09-30 [facility] [id number] Univers 15:00:00 15:00:00 [facility] 2021-09-30 2021-09-30 Telephone [facility] 1.2.126.287 [id number] Univers 00:00:00 00:00:00 Marissa Brittny [place] 350.1.13.10 i ty of [place] [phone] [address] 2021-09-29 2021-09-29 Telephone [facility] 1.2.672.576 [id number] Univers 00:00:00 00:00:00 Marissa BALLESTEROS 350.1.13.10 i ty of [place] [phone] [address] 2021-09-28 2021-09-28 Outpatient Merissa SANTANA [facility] [id number] Univers 15:00:00 15:00:00 MASOUD [facility] 2021-09-23 2021-09-23 Outpatient Merissa SANTANA [facility] [id number] Univers 15:00:00 16:23:10 MASOUD [facility] 2021-09-23 2021-09-23 Ancillary Therapist, Aaron Pulmonary [facility] 1.2.840.114 [id number] Univers 15:00:00 16:23:10 Visit Masoud Santana 350.1.13. 10 ity of [facility] 4.2.7.2.[place] [phone] [address] 2021-09-23 2021-09-23 Ancillary Therapist, Aaron Pulmonary [facility] 1.2.840.114 [id number] Univers 15:00:00 16:23:10 Visit Masoud Santana 350.1.13. 10 ity of [facility] 4.2.7.2.[place] [phone] [address] 2021-09-23 2021-09-23 Outpatient R HECTOR [facility] [id number] Univers 15:00:00 16:23:10 MASOUD [facility] 2021-09-21 2021-09-22 Ancillary Therapist, [facility] Pulmonary [facility] 1.2.840.114 [id number] [facility] 15:00:00 10:06:36 Visit Masoud Santana 350.1.13. 10 ity of [place] [id number] [address] 2021-09-21 2021-09-22 Outpatient R HECTOR [facility] [id number] Univers 15:00:00 10:06:36 MASOUD [facility] 2021-09-21 2021-09-21 Ancillary Therapist, [facility] Pulmonary [facility] 1.2.840.114 [id number] [facility] 15:00:00 16:00:00 Visit Masoud Santana 350.1.13. 10 ity of [place] [id number] [address] 2021-09-16 2021-09-16 Outpatient R HECTOR [facility] [id number] Univers 15:00:00 18:13:11 MASOUD [facility] 2021-09-16 2021-09-16 Ancillary Therapist, [facility] Pulmonary [facility] 1.2.840.114 [id number] Univers 15:00:00 18:13:11 Visit Masoud Santana 350.1.13. 10 ity of [facility] 4.2.[place] [phone] [address] 2021-09-16 2021-09-16 Orders Doctor PORTER 1.2.840.114 [id number] Univers 00:00:00 00:00:00 Only Unassigned, YING 350.1.13.10 ity of [place] [facility] 4.2.7.2.686 [place] as [phone] [address] 2021-09-16 2021-09-16 Telephone [facility] 1.2.760.367 [id number] Univers 00:00:00 00:00:00 Shiwan [place] 350.1.13.10 i ty of [facility] 4.2.7.2.[place] [phone] [facility] [address] [place] [address] 2021-09-16 2021-09-16 Telephone [facility] 1.2.004.855 [id number] Univers 00:00:00 00:00:00 Shijohnei [place] 350.1.13.10 i ty of [place] [phone] [address] 2021-09-14 2021-09-14 Ancillary Therapist, Adc Pulmonary [facility] 1.2.840.114 [id number] Univers 15:00:00 16:31:27 Visit Masoud Santana 350.1.13. 10 ity of [facility] 4.2.[place] [id number] [address] 2021-09-14 2021-09-14 Outpatient R HECTOR [facility] [id number] Univers 15:00:00 15:00:00 MASOUD ity of [facility] 2021-09-09 2021-09-09 Telephone [facility] 1.2.505.059 [id number] Univers 00:00:00 00:00:00 Marissa BALLESTEROS 350.1.13.10 i ty of [facility] 4.2.7.2.[place] [phone] [address] 2021-09-08 2021-09-08 Orders Doctor PORTER 1.2.840.114 [id number] Univers 00:00:00 00:00:00 Only Unassigned, YING 350.1.13.10 ity of [place] [facility] 4.2.7.2.686 [place] as [phone] [address] 2021-09-07 2021-09-07 Outpatient R SANTANA [facility] [id number] Univers 15:00:00 17:10:59 MASOUD maravilla [facility] 2021-09-07 2021-09-07 Ancillary Therapist, [facility] Pulmonary [facility] 1.2.840.114 [id number] Univers 15:00:00 17:10:59 Visit Masoud Santana 350.1.13. 10 ity of [facility] [place] [phone] [address] 2021-08-31 2021-08-31 Telephone [facility] 1.2.888.405 [id number] Univers 00:00:00 00:00:00 Marissa C FAVIAN 350.1.13.10 i ty of [facility] 4.[place] [phone] [address] 2021-08-30 2021-08-30 Outpatient R SANTANA [facility] [id number] Univers 13:00:00 13:21:59 MASOUD maravilla [facility] 2021-08-30 2021-08-30 Ancillary Therapist, [facility] Pulmonary [facility] 1.2.840.114 [id number] Univers 13:00:00 13:21:59 Visit Masoud Santana 350.1.13. 10 [place] [phone] [address] 2021-08-30 2021-08-30 Orders Doctor PORTER [id number] [id number] Univers 00:00:00 00:00:00 Only Unassigned, YING 350.1.13.10 [facility] 4.2.7.2.686 [place] [phone] [address] 2021-08-23 2021-08-23 Telephone [facility] [id number] Univers 00:00:00 00:00:00 Marissa C [place] 350.1.13.10 i [place] [id number] Wi dical NAL [address] [facility] 2021-08-19 2021-08-19 Telephone Kelly, [facility] [id number] Univers 00:00:00 00:00:00 Marissa C [place] 350.1.13.10 i [place] [facility] 4[place].2.[place] [phone] Wi dical NAL [address] [facility] 2021-08-13 2021-08-13 Outpatient R PHONG [facility] [id number] Univers 14:30:00 14:30:00 NARENDRA maravilla [facility] 2021-08-13 2021-08-13 Imm/Inj Nurse, Adc Pob Immunization [facility] 1.2.840.114 [id number] Univers 14:30:00 14:30:00 Visit Narendra Darling 350.1.13 .10 [place] [id number] Wi dical NAL [address] [facility] 2021-08-13 2021-08-13 Outpatient R PHONG [facility] [id number] Univers 14:30:00 14:25:41 NARENDRA gomez [facility] 2021-08-13 2021-08-13 Outpatient R COSMO DE [facility] 10 [id number] Univers 13:00:00 14:15:10 COSMO DE i ty of [facility] 2021-08-13 2021-08-13 Office Jerilyn [facility] 1.2.840.114 [id number] Univers 13:00:00 14:15:10 Visit Cosmo BALLESTEROS 350.1.13.10 i ty of [place] [phone] Wi dical NAL 085 [facility] 2021-08-04 2021-08-04 Outpatient R COSMO DE [facility] 10 [id number] Univers 09:16:54 23:59:00 COSMO DE i ty of [facility] 2021-08-04 2021-08-04 Hospital [facility] 1.2.840.114 [id number] Univers 09:16:54 23:59:00 Encounter Shiwan SPECIALTY 350.1.13.10 it[place] [phone] Wi jose ELLIOTT [address] [place] [address] 2021-08-04 2021-08-04 [facility] 1.2.840.114 [id number] Univers 09:16:31 23:59:00 Encounter Shiwan SPECIALTY 350.1.13.10 it[place] [phone] Wi jose ELLIOTT [address] [place] [address] 2021-07-23 2021-07-23 Telephone [facility] [id number] Univers 00:00:00 00:00:00 Cosmo [place] 350.1.13.10 i ty of [place] [facility] [phone] [address] 2021-06-17 2021-06-17 Power Saw Operator Therapist, Adc Respiratory [facility] 1.2.840.114 [id number] Univers 14:00:00 15:30:00 Visit Masoud Santana 350.1.13. 10 ity of [place] [phone] [address] 2021-06-17 2021-06-17 Outpatient R HECTOR [facility] [id number] Univers 14:00:00 14:00:00 MASOUD itgomez of [facility] 2021-06-17 2021-06-17 Orders Jerilyn [facility] 1.2.139.956 [id number] Univers 00:00:00 00:00:00 Only Shiwan HEALTH 350.1.13.10 i ty of [facility] 4.2.7.2.[place] [phone] [place] [address] [place] 2021-06-02 2021-06-02 [facility] 1.2.840.114 [id number] Univers 00:00:00 00:00:00 Qiatoddjun [place] 350.1.13.10 ity of [facility] [place] [phone] [facility] 059 [facility] 2021-05-21 2021-05-21 (TEL) [facility] [id number] Co mmon 00:00:00 00:00:00 [facility] 2021-05-17 2021-05-17 [facility] 1.2.840.114 [id number] Univers 00:00:00 00:00:00 Qiatoddjun [place] 350.1.13.10 ity of [place] [phone] [address] 2021-05-14 2021-05-14 [facility] 1.2.840.114 [id number] [facility] 00:00:00 00:00:00 Layla BALLESTEROS 350.1.13.10 ity of [place] [phone] [address] 2021-05-14 2021-05-14 (TEL) [facility] [id number] Co mmon 00:00:00 00:00:00 [facility] 2021-05-13 2021-05-13 Outpatient R COSMO DE [facility] 10 [id number] Univers 14:30:00 15:10:14 COSMO DE i ty of [facility] 2021-05-13 2021-05-13 Office Jerilyn [facility] 1.2.840.114 [id number] Univers 14:26:13 15:10:14 Visit Cosmo BALLESTEROS 350.1.13.10 i ty of [place] [phone] Wi dicsd NAL 085 [facility] 2021-05-11 2021-05-11 Refill [facility] 1.2.840.114 [id number] Univers 00:00:00 00:00:00 Layla BALLESTEROS 350.1.13.10 ity of [place] 4.[place].7.2.686 [place] [phone] Wi dical NAL 9 [facility] 2021-04-30 2021-04-30 [facility] [id number] Co mmon 00:00:00 00:00:00 VISIT EST Spir it PT LEVEL 3 - CHI [facility] 2021-04-26 2021-04-26 Office [facility] 1.2.840.114 [id number] Univers 15:19:51 16:02:28 Visit Trentontoddjeanne [place] 350.1.13.10 ity of [place] 4.2.7.2.686 [place] Profess[place] [phone] Wi dic[address] 2021-04-26 2021-04-26 [facility] [id number] Univers 15:20:00 15:20:00 LAYLA montenegroy o f [facility] 2021-04-26 2021-04-26 Orders Doctor GERMAN 1.2.840.114 [id number] Univers 00:00:00 00:00:00 Only Unassigned, YING 350.1.13.10 ity of [place] [facility] 4.2.7.2.686 [place] as [phone] [address] 2021-04-12 2021-04-12 Telephone [facility] [id number] [id number] Univers 00:00:00 00:00:00 Layla Ballesteros 350.1.13.10 ity of [place] [phone] Wi dical nal 9 [facility] 2021-04-07 2021-04-07 Refill [facility] 1.2.840.114 [id number] Univers 00:00:00 00:00:00 Layla [place] 350.1.13.10 ity of [place] 4.[place].7.2.[place] [phone] Wi dical nal [address] [place] [address] 2021-04-02 2021-04-02 (TEL) STLMLC STLMLC [id number] Co mmon 00:00:00 00:00:00 [facility] 2021-03-30 2021-03-30 (TEL) STLMLC STLMLC [id number] Co mmon 00:00:00 00:00:00 [facility] 2021-03-29 2021-03-29 Orders Doctor GERMAN 1.2.840.114 [id number] Univers 00:00:00 00:00:00 Only Unassigned, YING 350.1.13.10 ity [facility] 4.2.7.2.686 [place] as [phone] [address] 2021-03-24 2021-03-24 (TEL) STLMLC STLMLC [id number] Co mmon 00:00:00 00:00:00 [facility] 2021-03-17 2021-03-17 Cruzito [facility] 1.2.840.114 [id number] [facility] 00:00:00 00:00:00 Layla [place] [address].13.[address] [facility] 4.2.7.2.[place] [phone] Wi dical [facility] 2021-03-11 2021-03-11 OFFICE STLMLC STLMLC [id number] Co mmon 00:00:00 00:00:[address] [facility] LEVEL 4 [facility] 2021-03-04 2021-03-04 Outpatient COSMO MONTES [facility] 10 [id number] Univers 15:00:00 15:00:00 COSMO DE i [facility] 2021-02-22 2021-02-22 (TEL) STLMLC STLMLC [id number] Co mmon 00:00:00 00:00:00 [facility] 2020-12-10 2020-12-10 (TEL) STLMLC STLMLC [id number] Co mmon 00:00:00 00:00:00 [facility] 2020-12-02 2020-12-02 Outpatient Merissa BIANCHI [facility] [id number] Univers 14:20:00 14:20:00 LAYLA mraavilla o f [facility] 2020-11-26 2020-11-26 (TEL) STLMLC STLMLC [id number] Co mmon 00:00:00 00:00:00 Spirit - [facility] 2020-11-24 2020-11-24 OFFICE STLMLC STLMLC [id number] Co mmon 00:00:00 00:00:00 VISIT EST Spir it PT LEVEL 3 - CHI [facility] 2020-10-30 2020-10-30 Outpatient R COSMO DE [facility] 10 [id number] Univers 15:30:00 15:30:00 COSMO DE i ty [facility] 2020-10-19 2020-10-19 OFFICE STLMLC STLMLC [id number] Co mmon 00:00:00 00:00:00 VISIT Spirit ESTAB PT - CHI LEVEL 4 [facility] 2020-10-08 2020-10-08 Outpatient R COSMO DE [facility] 10 [id number] Univers 15:30:00 15:30:00 COSMO DE i ty [facility] 2020-10-01 2020-10-01 Inpatient GAIL BenderTO [facility] [id number] [facility] 07:00:11 07:00:11 Wilver [facility] 2020-09-30 2020-09-30 Outpatient GAIL BenderTO [facility] [id number] [facility] 08:16:19 08:16:19 Wilver 68 [facility] 2020-09-24 2020-09-24 Letter GERMAN Diaz 1.2.840.114 [id number] 00:00:00 00:00:00 (Out) Aliyah HE 350.1.13.10 [facility] 4.2.7.2.686 [phone] [facility] 2020-09-24 2020-09-24 Telephone Maksim ALJORGE 1.2.386.967 [id number] 00:00:00 00:00:00 Layla Ballesteros 350.1.13.10 [place] 4.2.7.2.686 Professio [phone] [facility] 2020-09-23 2020-09-23 Laboratory Only, [facility] 1.2.840.114 [id number] 13:54:59 14:09:59 Only Test Favian 350.1.13.10 [place] 4.2.7.2.686 [place] [phone] 353 2020-09-23 2020-09-23 Outpatient R [facility] [id number] Univers 13:45:00 13:45:00 ity of [facility] 2020-09-21 2020-09-21 (TEL) STLMLC STLMLC [id number] Co mmon 00:00:00 00:00:00 Spirit - [facility] 2020-09-17 2020-09-17 OFFICE STLMLC STLMLC [id number] Co mmon 00:00:00 00:00:00 VISIT Spirit ESTAB PT - CHI LEVEL 4 [facility] 2020-09-16 2020-09-16 Outpatient R MAKSIM, [facility] [id number] Univers 14:00:00 23:59:00 LAYLA wright [facility] 2020-09-16 2020-09-16 Outpatient R MAKSIM, [facility] [id number] Univers 14:00:00 14:00:00 LAYLA wright [facility] 2020-09-15 2020-09-15 Orders Doctor GERMAN 1.2.840.114 [id number] 00:00:00 00:00:00 Only Unassigned, YING 350.1.13.10 [place] [phone] 009 2020-09-14 2020-09-14 Telephone Maksim, [facility] 1.2.409.590 [id number] 00:00:00 00:00:00 Layla Ballesteros 350.1.13.10 [place] 4.2.7.2.686 [facility] [phone] [facility] 2020-09-14 2020-09-14 Orders Doctor GERMAN 1.2.840.114 [id number] 00:00:00 00:00:00 Only Unassigned, YING 350.1.13.10 [place] [id number] [phone] 009 2020-09-10 2020-09-10 (TEL) STLMLC STLMLC [id number] Co mmon 00:00:00 00:00:00 Spirit - CHI [facility] 2020-09-09 2020-09-09 Outpatient YASH Atkinson [id number] [facility] 18:14:00 18:14:[address] [place] [address] 2020-09-01 2020-09-01 Office [facility] 1.2.840.114 [id number] 14:21:14 15:04:24 Visit Layla [place] 350.1.13.10 [place] 4.2.7.2.686 Isa [phone] nal 059 [facility] 2020-09-01 2020-09-01 Out[facility] [id number] Univers 14:20:00 14:20:00 LAYLA wright [facility] 2020-07-09 2020-07-09 Outpatient R COSMO DE [facility] [id number] Univers 15:20:00 15:20:00 COSMO DE i ty [facility] 2020-06-02 2020-06-02 Outpatient R MAKSIM [facility] [id number] Univers 14:00:00 14:00:00 TRENTONMOY taiwo adriana [facility] 2020-05-07 2020-05-07 OFFICE STLMLC STLMLC [id number] Co mmon 00:00:00 00:00:00 VISIT [facility] PT - CHI LEVEL 4 [facility] 2020-04-24 2020-04-24 Outpatient R YARED HIGH [facility] [id number] Univers 13:00:00 13:00:00 ity [facility] 2020-04-13 2020-04-13 (TEL) STLMLC STLMLC [id number] Co mmon 00:00:00 00:00:00 Spirit - CH[facility] 2020-04-02 2020-04-02 Outpatient R COSMO DE [facility] 10 [id number] Univers 14:20:00 14:20:00 COSMO DE i ty [facility] 2020-03-16 2020-03-16 Outpatient [facility] [id number] Common 10:52:00 10:52:[address] [facility] 2020-03-13 2020-03-13 Outpatient R MAKSIM, [facility] [id number] Univers 16:30:00 16:30:00 QIANGJUN ity o f [facility] 2020-03-12 2020-03-12 Outpatient R [facility] [id number] Univers 16:00:00 16:00:00 ity [facility] 2020-03-06 2020-03-06 Outpatient [facility] [id number] Common 10:09:00 10:09:[address] [facility] 2020-03-05 2020-03-05 Outpatient R [facility] [id number] Univers 16:00:00 16:00:00 ity [facility] 2020-03-05 2020-03-05 Outpatient [facility] [id number] Common 11:51:00 11:51:[address] [facility] 2020-03-03 2020-03-03 Outpatient R MAKSIM, [facility] [id number] Univers 14:00:00 14:00:00 QIATODDJUN ity o f [facility] 2020-02-11 2020-02-11 Outpatient R [facility] [id number] Univers 16:00:00 16:00:[facility] 2020-02-05 2020-02-05 Out[facility] [id number] Common 13:00:00 13:00:[address] [facility] 2020-02-05 2020-02-05 Outpatient [facility] [id number] Common 13:00:00 13:00:[address] [facility] 2020-01-09 2020-01-09 Outpatient [facility] [id number] Common 14:26:00 14:26:00 t [facility] - [facility] 2020-01-06 2020-01-06 Outpatient [facility] [id number] Common 15:48:00 15:48:[address] [facility] 2019-12-04 2019-12-04 Outpatient [facility] [id number] Common 07:12:00 07:12:[address] [facility] 2019-12-02 2019-12-02 Outpatient Merissa BIANCHI [facility] [id number] Univers 15:20:00 15:20:00 QIANGJUN ity o f [facility] 2019-11-22 2019-11-22 Outpatient [facility] [id number] Common 09:19:00 09:19:[address] [facility] 2019-11-01 2019-11-01 Outpatient [facility] [id number] Common 11:46:00 11:46:[address] [facility] 2019-10-30 2019-10-30 Outpatient Merissa BIANCHI [facility] [id number] Univers 11:00:00 11:00:00 QIANGJUN ity o f [facility] 2019-10-29 2019-10-29 Outpatient [facility] [id number] Common 11:16:00 11:16:[address] [facility] 2019-10-18 2019-10-18 Outpatient [facility] [id number] Common 09:30:00 09:30:[address] [facility] 2019-10-17 2019-10-17 Outpatient [facility] [id number] Common 10:49:00 10:49:[address] [facility] 2019-10-04 2019-10-04 Outpatient [facility] [id number] Common 10:26:00 10:26:[address] [facility] 2019-10-03 2019-10-03 Outpatient [facility] [id number] Common 13:45:00 13:45:[address] [facility] 2019-10-02 2019-10-02 Outpatient [facility] [id number] Common 10:11:00 10:11:[address] [facility] 2019-10-01 2019-10-01 Outpatient R MAKSIM, [facility] [id number] Univers 13:00:00 13:00:00 QIANGJUN ity o f [facility] 2019-09-20 2019-09-20 Outpatient [facility] [id number] Common 15:05:00 15:05:[address] [facility] 2019-09-12 2019-09-12 Outpatient [facility] [id number] Common 11:15:00 11:15:[address] [facility] 2019-09-09 2019-09-09 Outpatient R MAKSIM, [facility] [id number] Univers 15:00:00 15:00:00 QIANGJUN ity o f [facility] 2019-08-30 2019-08-30 Outpatient [facility] [id number] Common 15:13:00 15:13:[address] [facility] 2019-08-28 2019-08-28 Outpatient R MAKSIM, [facility] [id number] Univers 14:00:00 14:00:00 QIANGJUN ity o f [facility] 2019-08-05 2019-08-05 Outpatient R MAKSIM, [facility] [id number] Univers 15:52:15 23:59:00 QIANGJUN ity o f [facility] 2019-06-07 2019-06-07 Outpatient [facility] [id number] Common 15:51:00 15:51:[address] [facility] 2019-04-01 2019-04-01 Outpatient [facility] [id number] Common 15:30:00 15:30:[address] [facility] 2019-02-27 2019-02-27 [facility]phone [facility] [id number] Univers 00:00:00 00:00:00 Layla Ballesteros 350.1.13.10 ity of [place] [phone] Wi dicsd nal 9 [facility] 2019-02-05 2019-02-05 Cruziot Bianchi [facility] 1.2.840.114 [id number] Univers 00:00:00 00:00:00 Layla Ballesteros 350.1.13.10 ity of [place] 4[place].2.[place] [phone] Wi dical nal 059 [facility] 2019-01-28 2019-01-28 Outpatient [facility] [id number] Common 13:59:00 13:59:[address] [facility] 2019-01-25 2019-01-25 Orders Doctor PORTER 1.2.840.114 [id number] Univers 00:00:00 00:00:00 Only Unassigned, YING 350.1.13.10 [facility] 4.2.7.2.686 [place] as [phone] [place] [address] [place] 2019-01-12 2019-01-12 Outpatient [facility] [id number] Common 10:26:00 10:26:[address] [facility] 2018-12-19 2018-12-19 Outpatient [facility] [id number] Common 11:30:00 11:30:[address] [facility] 2018-11-12 2018-11-12 Outpatient [facility] [id number] Common 11:20:00 11:20:[address] [facility] 2018-09-26 2018-09-26 Outpatient [facility] [id number] Common 15:59:00 15:59:[address] [facility] 2018-08-06 2018-08-06 Outpatient [facility] [id number] Common 13:45:00 13:45:[address] [facility] 2018-04-17 2018-04-17 Outpatient [facility] [id number] Common 15:41:00 15:41:[address] [facility] 2018-01-31 2018-01-31 Outpatient [facility] [id number] Common 13:15:00 13:15:[address] [facility] 2018-01-16 2018-01-16 Outpatient [facility] [id number] Common 14:00:00 14:00:[address] [facility] 2016-07-05 2016-07-06 Outpt Diag nullFlavo [facility] [id number] Memoria 19:02:00 05:59:00 Services r Outpatient 01 l Jasper Mccabe [place] 2016-07-05 2016-07-06 Outpt Diag nullFlavo [facility] [id number] Memoria 19:02:00 05:59:00 Services r Outpatient 01 l Jasper Bonillaann Eliot 2016-07-05 2016-07-05 Outpatient Tung MHALEJANDROH MHOIH [id number] 13:02:00 23:59:00 Jorge rOtiz 2016-07-05 2016-07-05 Outpatient MHIE MHIE [id number] Memoria 14:45:00 14:45:00 05 zulma Eliot 2016-07-05 2016-07-05 Outpatient MHIE MHIE [id number] Memoria 14:45:00 14:45:00 05 zulma Eliot 2016-05-16 2016-05-17 Outpt Diag nullFlavo [facility] [id number] Memoria 19:44:00 05:59:00 Services r Outpatient 00 l Imaging Eliot [place] 2016-05-16 2016-05-17 [place] [id number] Memoria 19:44:00 05:59:00 Services r Outpatient 00 l Imaging [place] Eliot 2016-05-16 2016-05-16 Outpatient Tung MHOIH MHOIH [id number] 13:44:00 23:59:00 Jorge Ortiz 2016-05-16 2016-05-16 Outpatient MHIE MHIE [id number] Memoria 11:30:00 11:30:00 06 zulma Mccabe 2016-05-16 2016-05-16 Outpatient MHIE MHIE [id number] Memoria 11:30:00 11:30:00 06 zulma Mccabe 2016-04-14 2016-04-14 Outpatient MHIE MHIE [id number] Memoria 13:00:00 13:00:00 04 zulma Mccabe 2016-04-14 2016-04-14 Outpatient MHIE MHIE [id number] Memoria 13:00:00 13:00:00 04 zulma Mccabe 2016-04-01 2016-04-06 Inpatient nullFlavo [facility] [id number] Memoria 10:10:00 19:48:00 r Eliot 00 [facility] 2016-04-01 2016-04-06 Inpatient nullFlavo [facility] [id number] Memoria 10:10:00 19:48:00 r Eliot 00 [facility] 2016-04-01 2016-04-06 Outpatient Tung [facility] [id number] 05:10:00 14:48:00 Jorge 00 Angel 2016-04-01 2016-04-01 Outpatient MHIE MHIE [id number] Memoria 08:00:00 08:00:00 03 zulma Mccabe 2016-04-01 2016-04-01 Outpatient MHIE MHIE [id number] Memoria 08:00:00 08:00:00 03 zulma Mccabe 2016-03-31 2016-03-31 Outpatient MHIE MHIE [id number] Memoria 08:30:00 08:30:00 02 zulma Mccabe 2016-03-31 2016-03-31 Outpatient MHIE MHIE [id number] Memoria 08:30:00 08:30:00 02 zulma Mccabe 2016-03-15 2016-03-15 Outpatient MHIE MHIE [id number] Memoria 09:30:00 09:30:00 01 zulma Mccabe 2016-03-15 2016-03-15 Outpatient MHIE MHIE [id number] Memoria 09:30:00 09:30:00 01 zulma Mccabe [...] 32.1 g/dL 31.6-35.1 RDW-SD (test code = 31536-6) 52.1 fL 39.0-49.9 H RDW-CV (test code = 788-0) 15.2 % 12.0-15.5 PLT (test code = 777-3) See_Comment [Au tomated message] The system which ge nerated this result transmit james reference range: 166 - 35 8 10*3/?L. The reference range was not used to interpret th is result as normal/abnormal . MPV (test code = 95794-1) 9.3 fL 9.5-12.9 L NRBC/100 WBC (test code = See_Comment [ Automated message] The [id number]) system which Videdressing nerated this result transmit jamse reference range: 0.0 - 10 .0 /100 WBCs. The reference r malinda was not used to interpr et this result as normal/abnor mal. NRBC x10^3 (test code = See_Comment [Au tomated message] The [id number]) system which Videdressing nerated this result transmit james reference range: 10*3/?L. The reference range was not u sed to interpret this result as normal/abnormal . GRAN MAT (NEUT) % (test code 79.9 % = 770-8) IMM GRAN % (test code = 0.60 % [id number]) LYMPH % (test code = 736-9) 9.9 % MONO % (test code = 5905-5) 6.6 % EOS % (test code = 713-8) 2.6 % BASO % (test code = 706-2) 0.4 % GRAN MAT x10^3(ANC) (test 12.68 10*3/uL 1.88-7.09 H code = 9656008930) IMM GRAN x10^3 (test code = 0.10 10*3/uL 0.00-0.06 H [id number]) LYMPH x10^3 (test code = 1.57 10*3/uL 1.32-3.29 731-0) MONO x10^3 (test code = 1.04 10*3/uL 0.33-0.92 H 742-7) EOS x10^3 (test code = 0.41 10*3/uL 0.03-0.39 H 711-2) BASO x10^3 (test code = 0.06 10*3/uL 0.01-0.07 704-7) Lab Interpretation (test Abnormal code = 94150-6) [facility] [id number] 06:22:00 Test Item Value Reference Range Interpretation [...] RATE (test code = GFR) mL/mi n/1.73 y9Yazveeost Range:Healthy Adults >90 mL/min/1.73 m2 For Chronic Kidney Disease: Stage II Mild Decrease i n GFR 60-90 Stage III Moderate Decrea se in GFR 30-59 St age IV Severe Decre ase in GFR 15-29 St age V Kidney Failur e <15 CREATININE (test code 1.13 mg/dL 0.55-1.30 N = CREAT) CALCIUM (test code = 8.6 mg/dL 8.2-10.1 N CA) HGB [id number] 05:57:00 Test Item Value Reference Range Interpretation Comments HEMOGLOBIN (test code = HGB) 11.4 g/dL 12-16 L HEMATOCRIT (test code = HCT) 35.5 % 37-47 L SPECIMEN COMMENT: POD #[id number] 17:08:00 Test Item Value Reference Range Interpretation [...] BLOOD, PT every other day NTHROMBOPLASTIN TIME [id number] 17:08:00 Test Item Value Reference Range Interpretation Comments PTT ACTIVATED (test code = APTT) 34.0 secs 24.9-37.0 N IS PATIENT ON ANTICOAGULANTS ? YLIST ANTICOAGULANT/ANTI PLT MEDICATION : OtherHas Lab been notified if Patient is on Heparin Drip? NOIf Yes, order CBC, OCCULT BLOOD, PT every other day NCOMPREHENSIVE METABOLIC [id number] 17:08:00 Test Item Value Reference Range Interpretation [...] RATE (test code = GFR) mL/mi n/1.73 q4[place] Range:Healthy Adults >90 mL/min/1.73 m2 For Chronic [...] TOTAL (test code = ALKP) CBC W/AUTO [id number] 16:45:00 Test Item Value Reference Range Interpretation [...] code = NRBC) - XR CHEST 1 [id number] 16:35:00 Patient Name: RUTHY BEST Unit No: [id number] EXAMS: CPT CODE: [id number] XR CHEST 1 V [id number] PROVIDED: One frontal view of the chest is provided. COMPARISON: None FINDINGS: The cardiac si lhouette is mildly enlarged. Pulmonary vasculature is engorged. No focal consolidation is visualized. No pneumothorax or pleural effusion. Bilateral shoulder arthroplasties are partially visualized. IMPRESSION: Findings suggestive of CHF/volume overload. at 3270 Reported and signed by: Rick Serrano M.D. CC: Aida Meredith MD; Geovany Olivera MD Technologist: JESSICA CHAND RT(R) Transcribed D/ (8908) [facility] NAME: RUTHY BEST [address] [facility] PHYS: ALEAida Fuller : 1945 AGE: 73 SEX: F [place], [place] [address] LOC:Y.306 A PHONE #: [phone] EXAM DATE: 05/15/2019 STATUS: DIS IN FAX #: [phone] RAD #: D/C DT05/16/2019 PAGE 1 Signed Report Patient Name: RUTHY BEST Unit No: [id number] EXAMS: CPT CODE: [id number] XR CHEST 1 V 54771 (Continued) Orig Print D/T: S: 05/16/2019 (1639) [facility] NAME: RUTHY BEST [address] [place] [address] PHYS: ALE - Aida Meredith : 1945 AGE: 73 SEX: F [place], [place] [address] LOC: Y.306 A PHONE #: [phone] EXAM DATE: 05/15/2019 STATUS: DIS IN FAX #: [phone] RAD #: D/C DT 05/16/2019 PAGE 2 Signed Report - XR SHOULDER 1 V [id number] 14:01:00 Patient Name: RUTHY BEST Unit No: [id number] EXAMS: CPT CODE: [id number] XR SHOULDER 1 [place] [address] IMAGES PROVIDED: Single AP view of the left shoulder FINDINGS: Postoperative changes of left reverse total shoulder arthoplasty demonstrated without evidence of immediate complication. No acute fracture. Visualized lung is clear. IMPRESSION: Left reverse total shoulder arthoplasty without immediate complication. at 1401 Reported and signed by: Rick Serrano M.D. CC: Geovany Olivera MD Technologist: MIGUELITO FELIZ (RT.R) Transcribed D/ (1401) [facility] NAME: RUTHY BEST [address] [facility] PHYS: Geovany Bee : 1945 AGE: 73 SEX: F [place] LOC: Y.306 A PHONE #: [phone] EXAM DATE: 05/15/2019 STATUS: ADM IN FAX #: [phone] RAD #: D/C DT PAGE 1 Signed Report Patient Name: RUTHY BEST Unit No: [id number] EXAMS: CPT CODE: [id number] XR SHOULDER 1 [place] [address] (Continued) Orig Print D/T: S: 05/16/2019 (1404) [facility] NAME: RUTHY BEST [address] [facility] PHYS: Geovany Bee : 1945 AGE: 73 SEX: F [place], [place] [address] LOC: Y.306 A PHONE #: [phone] EXAM DATE: 05/15/2019 STATUS: ADM IN FAX #: [phone] RAD #: D/C DT PAGE 2 Signed ReportCBC W/AUTO [id number] 05:53:00 Test Item Value Reference Range Interpretation [...] POD #1- CT UP EXTREM W/O CONT [id number] 08:39:00 Patient Name: RUTHY BEST Unit No: [id number] EXAMS: CPT CODE: [id number] [place] EXTREM W/[place] [address] [place] OF THE LEFT SHOULDER WITH SAGITTAL AND CORONAL RECONSTRUCTIONS DIAGNOSIS: Glenohumeraljoint degenerative change is present with cartilage thinning [...] with ACR practice standards and adherence to rn angiography's recommendations. Degenerative changesare present as noted. The rotator cuff is as described. No loose bodies are seen. AC joint degenerative change is present. at 0839 Reported and signed by: Ran Cedeño MD CC: Geovany Olivera MD Technologist: RT Vasquez(R) CTDI: DLP: Trnscrpt: 04/12/2019 (0839) [facility] NAME: RUTHY BEST [address] [facility] PHYS: Geovany Bee : 1945 AGE: 73 SEX: F [place] [address] LOC: RonaldRAD PHONE #: [phone] EXAM DATE: 04/11/2019 STATUS: DEP CLI FAX #: [phone] RAD #: D/C DT PAGE 1 Signed Report Patient Name: RUTHY BEST UnitNo: [id number] EXAMS: CPT CODE: [id number] [place] EXTREM W/[place] [address] (Continued) Orig Print D/T:S: 04/12/2019 (0842) [facility] NAME: RUTHY BEST [address] [facility] PHYS: Geovany Willson : 1945 AGE: 73 SEX: F [place] [address] LOC: RonaldRAD PHONE #: [phone] EXAM DATE: 04/11/2019 STATUS: DEP CLI FAX #: [phone] RAD #: D/CDT PAGE 2 Signed ReportCBC W/AUTO DIFF 2019-04-11 18:23:00 Test Item Value Reference Range Interpretation [...] % 0-0 N code = NRBC) SED [id number] 18:23:00 Test Item Value Reference Range Interpretation Comments SED RATE (test code = SEDW) 25 mm/hr 0-20 H COMPREHENSIVE METABOLIC [id number] 18:17:00 Test Item Value Reference Range Interpretation [...] RATE (test code = GFR) mL/mi n/1.73 a0Tlcnjoowc Range:Healthy Adults >90 mL/min/1.73 m2 For Chronic Kidney Disease: Stage II Mild Decrease i n GFR 60-90 Stage III Moderate Decrea se in GFR 30-59 S tage IV Severe Decre ase in GFR 15-29 [...] N TOTAL (test code = ALKP) PROTHROMBIN [id number] 17:59:00 Test Item Value Reference Range Interpretation [...] Patient is on Heparin Drip? NOTHROMBOPLASTIN TIME [id number] 17:59:00 Test Item Value Reference Range Interpretation [...] % 0-0 N code = NRBC) SED [id number] 17:22:00 Test Item Value Reference Range Interpretation Comments SED RATE (test code = SEDW) mm/hr 0-20 CHEM [id number] 19:15:00 Test Item Value Reference Range Interpretation Comments Calcium Lvl (test code = Calcium Lvl) 9.5 8.5-10.5 [facility] [place] [facility] [id number] 19:15:00 Test Item Value Reference Range Interpretation Comments eGFR (test code = eGFR) 94 [facility] [place] [facility]2016-10-05 19:15:00 Test Item Value Reference Range Interpretation Comments CO2 (test code = CO2) 24- [facility] [place] [facility]2016-10-05 19:15:00 Test Item Value Reference Range Interpretation Comments Creatinine Lvl (test code = Creatinine 0.55 0.50-1.40 Lvl) [facility] [place] [facility]2016-10-05 19:15:00 Test Item Value Reference Range Interpretation Comments Chloride Lvl (test code = Chloride Lvl) 99 95-109 [facility] [place] [facility]2016-10-05 19:15:00 Test Item Value Reference Range Interpretation Comments AGAP (test code = AGAP) 14.9 10.0-20.0 [facility] [place] [facility]2016-10-05 19:15:00 Test Item Value Reference Range Interpretation Comments BUN (test code = BUN) 27 7- [facility] [place] [facility]2016-10-05 19:15:00 Test Item Value Reference Range Interpretation Comments Potassium Lvl (test code = Potassium 2.9 3.5-5.1 Lvl) [facility] [place] [facility]2016-10-05 19:15:00 Test Item Value Reference Range Interpretation Comments Sodium Lvl (test code = Sodium Lvl) 137 135-145 [facility] [place] [facility]2016-10-05 19:15:00 Test Item Value Reference Range Interpretation Comments Glucose Lvl (test code = Glucose Lvl) 98 70-99 [facility] [place] [facility]2016-10-05 19:15:00 Test Item Value Reference Range Interpretation Comments Calcium Lvl (test code = Calcium Lvl) 9.5 8.5-10.5 [facility] [place] [facility]2016-10-05 19:15:00 Test Item Value Reference Range Interpretation Comments eGFR (test code = eGFR) 94 [facility] [place] [facility]2016-10-05 19:15:00 Test Item Value Reference Range Interpretation Comments CO2 (test code = CO2) - [facility] [place] [facility]2016-10-05 19:15:00 Test Item Value Reference Range Interpretation Comments Creatinine Lvl (test code = Creatinine 0.55 0.50-1.40 Lvl) [facility] [place] [facility]2016-10-05 19:15:00 Test Item Value Reference Range Interpretation Comments Chloride Lvl (test code = Chloride Lvl) 99 95-109 [facility] [place] [facility]2016-10-05 19:15:00 Test Item Value Reference Range Interpretation Comments AGAP (test code = AGAP) 14.9 10.0-20.0 [facility] [place] [facility]2016-10-05 19:15:00 Test Item Value Reference Range Interpretation Comments BUN (test code = BUN) 26 01- [facility] [place] [facility]2016-10-05 19:15:00 Test Item Value Reference Range Interpretation Comments Potassium Lvl (test code = Potassium 2.9 3.5-5.1 Lvl) [facility] [place] [facility]2016-10-05 19:15:00 Test Item Value Reference Range Interpretation Comments Sodium Lvl (test code = Sodium Lvl) 137 135-145 [facility] [place] [facility]2016-10-05 19:15:00 Test Item Value Reference Range Interpretation Comments Glucose Lvl (test code = Glucose Lvl) 98 70-99 [facility] [place] [facility]2016-10-05 19:15:00 Test Item Value Reference Range Interpretation Comments Calcium Lvl (test code = Calcium Lvl) 9.5 8.5-10.5 [facility] [place] [facility]2016-10-05 19:15:00 Test Item Value Reference Range Interpretation Comments eGFR (test code = eGFR) 94 [facility] [place] [facility]2016-10-05 19:15:00 Test Item Value Reference Range Interpretation Comments CO2 (test code = CO2) 26 24-32 [facility] [place] [facility]2016-10-05 19:15:00 Test Item Value Reference Range Interpretation Comments Creatinine Lvl (test code = Creatinine 0.55 0.50-1.40 Lvl) [facility] [place] [facility]2016-10-05 19:15:00 Test Item Value Reference Range Interpretation Comments Chloride Lvl (test code = Chloride Lvl) 99 95-109 [facility] [place] [facility]2016-10-05 19:15:00 Test Item Value Reference Range Interpretation Comments AGAP (test code = AGAP) 14.9 10.0-20.0 [facility] [place] [facility]2016-10-05 19:15:00 Test Item Value Reference Range Interpretation Comments BUN (test code = BUN) 27 7- [facility] [place] [facility]2016-10-05 19:15:00 Test Item Value Reference Range Interpretation Comments Potassium Lvl (test code = Potassium 2.9 3.5-5.1 Lvl) [facility] [place] [facility]2016-10-05 19:15:00 Test Item Value Reference Range Interpretation Comments Sodium Lvl (test code = Sodium Lvl) 137 135-145 [facility] [place] [facility]2016-10-05 19:15:00 Test Item Value Reference Range Interpretation Comments Glucose Lvl (test code = Glucose Lvl) 98 70-99 [facility] [place] [facility]2016-10-05 19:15:00 Test Item Value Reference Range Interpretation Comments Calcium Lvl (test code = Calcium Lvl) 9.5 8.5-10.5 [facility] [place] [facility]2016-10-05 19:15:00 Test Item Value Reference Range Interpretation Comments eGFR (test code = eGFR) 94 [facility] [place] [facility]2016-10-05 19:15:00 Test Item Value Reference Range Interpretation Comments CO2 (test code = CO2) 26 24-32 [facility] [place] [facility]2016-10-05 19:15:00 Test Item Value Reference Range Interpretation Comments Creatinine Lvl (test code = Creatinine 0.55 0.50-1.40 Lvl) [facility] [place] [facility]2016-10-05 19:15:00 Test Item Value Reference Range Interpretation Comments Chloride Lvl (test code = Chloride Lvl) 99 95-109 [facility] [place] [facility]2016-10-05 19:15:00 Test Item Value Reference Range Interpretation Comments AGAP (test code = AGAP) 14.9 10.0-20.0 [facility] [place] [facility]2016-10-05 19:15:00 Test Item Value Reference Range Interpretation Comments BUN (test code = BUN) 27 7-22 [facility] [place] [facility]2016-10-05 19:15:00 Test Item Value Reference Range Interpretation Comments Potassium Lvl (test code = Potassium 2.9 3.5-5.1 Lvl) [facility] [place] [facility]2016-10-05 19:15:00 Test Item Value Reference Range Interpretation Comments Sodium Lvl (test code = Sodium Lvl) 137 135-145 [facility] [place] [facility]2016-10-05 19:15:00 Test Item Value Reference Range Interpretation Comments Glucose Lvl (test code = Glucose Lvl) 98 70-99 [facility]ieWebycyhTFCQMGCOAHMY4524-65-25 08:58:00 Test Item Value Reference Range Interpretation Comments BUN (test code = BUN) 24 7-22 [facility]ieSeakykiRZTSIHNZQSZK2709-83-73 08:58:00 Test Item Value Reference Range Interpretation Comments Creatinine Lvl (test code = Creatinine 0.57 0.50-1.40 Lvl) [facility]qQ[facility]XAUEHSJ5646-80-45 08:58:00 Test Item Value Reference Range Interpretation Comments PT (test code = PT) 15.9 s 12.0-14.7 [facility] CenterWhythrgDLIZQJJDOH5908-76-00 08:58:00 Test Item Value Reference Range Interpretation Comments INR (test code = INR) 1.24 0.85-1.17 [facility] CenterBswdckzKFBXFDHTVD7410-63-42 08:58:00 Test Item Value Reference Range Interpretation Comments PTT (test code = PTT) 35.2 s 22.9-35.8 [facility] CenterPuqyxieVOGJIAEWZT6393-34-41 08:58:00 Test Item Value Reference Range Interpretation Comments RBC (test code = RBC) 3.67 4.20-5.40 [facility] CenterHqwgkqhNZCUATCAUE9351-43-54 08:58:00 Test Item Value Reference Range Interpretation Comments Hgb (test code = Hgb) 10.6 12.0-16.0 [facility] CenterGkzlppyXVWVUIXCYD4483-45-48 08:58:00 Test Item Value Reference Range Interpretation Comments WBC (test code = WBC) 8.8 3.7-10.4 [facility] CenterYosokjeBVDNQBQJYI2337-03-53 08:58:00 Test Item Value Reference Range Interpretation Comments Platelet (test code = Platelet) 490 133-450 [facility] CenterRwebssgIPISEAVXAN3343-70-97 08:58:00 Test Item Value Reference Range Interpretation Comments MPV (test code = MPV) 7.5 7.4-10.4 [facility] CenterWxpzdwwINLSAGWLKI2168-16-90 08:58:00 Test Item Value Reference Range Interpretation Comments MCHC (test code = MCHC) 34.7 32.0-36.0 [facility] CenterPqhvnnrEJAYXQTRZM3927-28-78 08:58:00 Test Item Value Reference Range Interpretation Comments RDW (test code = RDW) 13.8 11.5-14.5 [facility] CenterVgyygrbBUWQFVWMTQ7041-24-43 08:58:00 Test Item Value Reference Range Interpretation Comments MCV (test code = MCV) 82.8 80.0-98.0 [facility] CenterEvpbkfzDXEYROUXVA7969-29-84 08:58:00 Test Item Value Reference Range Interpretation Comments MCH (test code = MCH) 28.8 pg 27.0-31.0 [facility] CenterKcpgcxxJXGDMYZZHZ6566-82-08 08:58:00 Test Item Value Reference Range Interpretation Comments Hct (test code = Hct) 30.4 36.0-48.0 [facility] CenterGoqfuyzTKUEBKVRKZ3664-38-00 08:58:00 Test Item Value Reference Range Interpretation Comments Eosinophils # (test code 0.2 See_Comment [A utomated message] The = Eosinophils #) system whic h generated this result tra nsmitted reference range : <=0.5. The reference r malinda was not used to int erpret this result as normal/abnormal . [facility] CenterFujqxcoOBPXUKMNQP5091-98-13 08:58:00 Test Item Value Reference Range Interpretation Comments Segs-Bands # (test code = Segs-Bands #) 5.4 1.5-8.1 [facility] CenterEzumjltNCDMNBOVRG0233-64-72 08:58:00 Test Item Value Reference Range Interpretation Comments Monocytes # (test code 1.1 See_Comment [Aut omated message] The = Monocytes #) system which generated this result tra nsmitted reference range : <=0.8. The reference r malinda was not used to int erpret this result as normal/abnormal . [facility] CenterCfsmvbnMOUDQORKQT5008-13-65 08:58:00 Test Item Value Reference Range Interpretation Comments Lymphocytes # (test code = Lymphocytes 2.1 1.0-5.5 #) [facility] CenterMfmnnydOMFCOBRQVQ1900-71-87 08:58:00 Test Item Value Reference Range Interpretation Comments Eosinophils (test code = 2.1 See_Comment [A utomated message] The Eosinophils) system which ge nerated this result tra nsmitted reference range : <=4.0. The reference r malinda was not used to int erpret this result as normal/abnormal . [facility] CenterPdysorfJAMVSMHMGK3659-04-17 08:58:00 Test Item Value Reference Range Interpretation Comments Basophils (test code = 0.6 See_Comment [Aut omated message] The Basophils) system which ge nerated this result tra nsmitted reference range : <=1.0. The reference r malinda was not used to int erpret this result as normal/abnormal . [facility] CenterPukoermUPRSENEEXD4821-01-57 08:58:00 Test Item Value Reference Range Interpretation Comments Lymphocytes (test code = Lymphocytes) 23.7 20.0-40.0 [facility] CenterWqusfxuSOFLJHPLKQ4763-60-22 08:58:00 Test Item Value Reference Range Interpretation Comments Monocytes (test code = Monocytes) 12.4 2.0-12.0 [facility] CenterDnmmeewHGSYWYCIFQ4285-06-30 08:58:00 Test Item Value Reference Range Interpretation Comments Segs (test code = Segs) 61.2 45.0-75.0 [facility] CenterTngdetxDEURFYMTPONR5217-07-17 08:58:00 Test Item Value Reference Range Interpretation Comments Chloride Lvl (test code = Chloride Lvl) 99 95-109 [facility] CenterRowqqqkDFZUKUWLUXAJ9416-90-32 08:58:00 Test Item Value Reference Range Interpretation Comments Potassium Lvl (test code = Potassium 2.5 3.5-5.1 Lvl) [facility] CenterTyfzyjgYHMZAEJPSGEF4033-40-66 08:58:00 Test Item Value Reference Range Interpretation Comments Sodium Lvl (test code = Sodium Lvl) 136 135-145 [facility] CenterOwdxdoqHBUZRJKWPBMN2376-70-99 08:58:00 Test Item Value Reference Range Interpretation Comments CO2 (test code = CO2) 25 24-32 [facility] CenterXydlpiaQYGHCZZGMBBM4147-23-79 08:58:00 Test Item Value Reference Range Interpretation Comments eGFR (test code = eGFR) 93 [facility] CenterUzrnpayYNGBQNYTRYPJ2831-14-45 08:58:00 Test Item Value Reference Range Interpretation Comments Calcium Lvl (test code = Calcium Lvl) 9.5 8.5-10.5 [facility] CenterZuvcuxqDNPLQLKADYPG4412-70-74 08:58:00 Test Item Value Reference Range Interpretation Comments AGAP (test code = AGAP) 14.5 10.0-20.0 [facility] CenterIpodajsVFRWGPSJXMDU5674-90-17 08:58:00 Test Item Value Reference Range Interpretation Comments Glucose Lvl (test code = Glucose Lvl) 93 70-99 [facility] CenterShhnfztKSXLVUOTEQNK0741-84-06 08:58:00 Test Item Value Reference Range Interpretation Comments BUN (test code = BUN) 24 7-22 [facility] CenterBggvrsoANEPQYWBBVJC8744-57-69 08:58:00 Test Item Value Reference Range Interpretation Comments Creatinine Lvl (test code = Creatinine 0.57 0.50-1.40 Lvl) [facility] CenterYguurohTMRUNBWMDK4570-44-05 08:58:00 Test Item Value Reference Range Interpretation Comments PT (test code = PT) 15.9 s 12.0-14.7 [facility] CenterZgilpehDGNQWVGPPP5441-14-68 08:58:00 Test Item Value Reference Range Interpretation Comments INR (test code = INR) 1.24 0.85-1.17 [facility] CenterSxdknnoNGTMBYZRFU9011-89-87 08:58:00 Test Item Value Reference Range Interpretation Comments PTT (test code = PTT) 35.2 s 22.9-35.8 [facility] CenterQqsteqoCJPYIYDBMD5528-56-09 08:58:00 Test Item Value Reference Range Interpretation Comments RBC (test code = RBC) 3.67 4.20-5.40 [facility] CenterRoabyqnMFLZIZXXAB3041-14-76 08:58:00 Test Item Value Reference Range Interpretation Comments Hgb (test code = Hgb) 10.6 12.0-16.0 [facility] CenterHfwxktxWQBAFOGYHO8347-38-66 08:58:00 Test Item Value Reference Range Interpretation Comments WBC (test code = WBC) 8.8 3.7-10.4 [facility] CenterYwdoevuEQHMXUCNZT0389-89-69 08:58:00 Test Item Value Reference Range Interpretation Comments Platelet (test code = Platelet) 490 133-450 [facility] CenterDmuzfolYPQEPPCSAB7669-06-38 08:58:00 Test Item Value Reference Range Interpretation Comments MPV (test code = MPV) 7.5 7.4-10.4 [facility] CenterTevxnndDTTTEIRFET5290-67-88 08:58:00 Test Item Value Reference Range Interpretation Comments MCHC (test code = MCHC) 34.7 32.0-36.0 [facility] CenterXymiqcqKBJMWHJXPJ5918-75-20 08:58:00 Test Item Value Reference Range Interpretation Comments RDW (test code = RDW) 13.8 11.5-14.5 [facility] CenterWhijzvsGAJPSFHRVV6333-15-24 08:58:00 Test Item Value Reference Range Interpretation Comments MCV (test code = MCV) 82.8 80.0-98.0 [facility] CenterNrudipiDCVPNLGMEA9427-92-35 08:58:00 Test Item Value Reference Range Interpretation Comments MCH (test code = MCH) 28.8 pg 27.0-31.0 [facility] CenterBiwkqdgSJEUJTHFPC1998-20-88 08:58:00 Test Item Value Reference Range Interpretation Comments Hct (test code = Hct) 30.4 36.0-48.0 [facility] CenterSxgtuhcXNHHRONGLX7174-57-99 08:58:00 Test Item Value Reference Range Interpretation Comments Eosinophils # (test code 0.2 See_Comment [A utomated message] The = Eosinophils #) system whic h generated this result tra nsmitted reference range : <=0.5. The reference r malinda was not used to int erpret this result as normal/abnormal . [facility] CenterWpceejlADAIPAEERG9303-03-39 08:58:00 Test Item Value Reference Range Interpretation Comments Segs-Bands # (test code = Segs-Bands #) 5.4 1.5-8.1 [facility] CenterXdexnnyUHYYGWAFJE5907-98-87 08:58:00 Test Item Value Reference Range Interpretation Comments Monocytes # (test code 1.1 See_Comment [Aut omated message] The = Monocytes #) system which generated this result tra nsmitted reference range : <=0.8. The reference r malinda was not used to int erpret this result as normal/abnormal . [facility] CenterVwvrxgpUEAKHFNEEY7705-39-38 08:58:00 Test Item Value Reference Range Interpretation Comments Lymphocytes # (test code = Lymphocytes 2.1 1.0-5.5 #) [facility] CenterDtcehhwRFUDMSYTAA0365-90-80 08:58:00 Test Item Value Reference Range Interpretation Comments Eosinophils (test code = 2.1 See_Comment [A utomated message] The Eosinophils) system which ge nerated this result tra nsmitted reference range : <=4.0. The reference r malinda was not used to int erpret this result as normal/abnormal . [facility] CenterNijnhlhZKRZMQSDKF0802-96-61 08:58:00 Test Item Value Reference Range Interpretation Comments Basophils (test code = 0.6 See_Comment [Aut omated message] The Basophils) system which ge nerated this result tra nsmitted reference range : <=1.0. The reference r malinda was not used to int erpret this result as normal/abnormal . [facility] CenterOimbrlzHKLEFCOIAU6164-87-01 08:58:00 Test Item Value Reference Range Interpretation Comments Lymphocytes (test code = Lymphocytes) 23.7 20.0-40.0 [facility] CenterKvxezlaODJKLHMJGU4201-39-43 08:58:00 Test Item Value Reference Range Interpretation Comments Monocytes (test code = Monocytes) 12.4 2.0-12.0 [facility] CenterDruigtfJEBXSTFFLW1737-68-74 08:58:00 Test Item Value Reference Range Interpretation Comments Segs (test code = Segs) 61.2 45.0-75.0 [facility] CenterKmiilzxVSQERIFUJLUT7371-01-96 08:58:00 Test Item Value Reference Range Interpretation Comments Chloride Lvl (test code = Chloride Lvl) 99 95-109 [facility] CenterEryqtsxTSQQGNNSERCP8909-95-39 08:58:00 Test Item Value Reference Range Interpretation Comments Potassium Lvl (test code = Potassium 2.5 3.5-5.1 Lvl) [facility] CenterTkntnhiNXOPGGFKFSUZ2266-29-03 08:58:00 Test Item Value Reference Range Interpretation Comments Sodium Lvl (test code = Sodium Lvl) 136 135-145 [facility] CenterGzmuspxAIXBOSLVZBKR1708-48-88 08:58:00 Test Item Value Reference Range Interpretation Comments CO2 (test code = CO2) 25 24-32 [facility] CenterBvmpvffWCHXBQVVSEHQ3359-05-36 08:58:00 Test Item Value Reference Range Interpretation Comments eGFR (test code = eGFR) 93 [facility] CenterZxpehikLWORASLKACTZ3541-46-26 08:58:00 Test Item Value Reference Range Interpretation Comments Calcium Lvl (test code = Calcium Lvl) 9.5 8.5-10.5 [facility] CenterRwsrspeAJDTROVGETCA5224-50-19 08:58:00 Test Item Value Reference Range Interpretation Comments AGAP (test code = AGAP) 14.5 10.0-20.0 [facility] CenterVhferidBTBGZGFJUNIR3802-95-36 08:58:00 Test Item Value Reference Range Interpretation Comments Glucose Lvl (test code = Glucose Lvl) 93 70-99 [facility] CenterTxnkxjgUMBAIKYTSBAP7722-81-17 08:58:00 Test Item Value Reference Range Interpretation Comments BUN (test code = BUN) 24 7-22 [facility] CenterDuxcdtzKOLHDPLVOUEZ2061-47-36 08:58:00 Test Item Value Reference Range Interpretation Comments Creatinine Lvl (test code = Creatinine 0.57 0.50-1.40 Lvl) [facility] CenterLjhllqzMIZQSXCUSV6998-47-24 08:58:00 Test Item Value Reference Range Interpretation Comments PT (test code = PT) 15.9 s 12.0-14.7 [facility] CenterOmjuudsQZHSYWNSIU3906-83-86 08:58:00 Test Item Value Reference Range Interpretation Comments INR (test code = INR) 1.24 0.85-1.17 [facility] CenterXnagwlrUNNVQBQUDC0083-30-91 08:58:00 Test Item Value Reference Range Interpretation Comments PTT (test code = PTT) 35.2 s 22.9-35.8 [facility] CenterLwrwgxgVBRWGVHPBF8363-01-12 08:58:00 Test Item Value Reference Range Interpretation Comments RBC (test code = RBC) 3.67 4.20-5.40 [facility] CenterQofkzlbTXJURFKESJ1233-49-66 08:58:00 Test Item Value Reference Range Interpretation Comments Hgb (test code = Hgb) 10.6 12.0-16.0 [facility] CenterZvuiycpCLQJUKGLOK0969-45-78 08:58:00 Test Item Value Reference Range Interpretation Comments WBC (test code = WBC) 8.8 3.7-10.4 [facility] CenterCbezxylQHASSNOSLY6680-40-09 08:58:00 Test Item Value Reference Range Interpretation Comments Platelet (test code = Platelet) 490 133-450 [facility] CenterQknkxnwWKINTWKSUC6088-82-30 08:58:00 Test Item Value Reference Range Interpretation Comments MPV (test code = MPV) 7.5 7.4-10.4 [facility] CenterJtupnlaPLJRHZJNBO3966-30-30 08:58:00 Test Item Value Reference Range Interpretation Comments MCHC (test code = MCHC) 34.7 32.0-36.0 [facility] CenterOppdxwvTUKEBXYBOK0453-65-89 08:58:00 Test Item Value Reference Range Interpretation Comments RDW (test code = RDW) 13.8 11.5-14.5 [facility] CenterSozwvslEOAMDGJAXP8590-75-10 08:58:00 Test Item Value Reference Range Interpretation Comments MCV (test code = MCV) 82.8 80.0-98.0 [facility] CenterKuoxsdfZUPWEKFHEM7187-67-10 08:58:00 Test Item Value Reference Range Interpretation Comments MCH (test code = MCH) 28.8 pg 27.0-31.0 [facility] CenterIgjufnxLNZJIZWFPM4179-35-68 08:58:00 Test Item Value Reference Range Interpretation Comments Hct (test code = Hct) 30.4 36.0-48.0 [facility] CenterZcdkirfBPRXIPOOAC9021-99-52 08:58:00 Test Item Value Reference Range Interpretation Comments Eosinophils # (test code 0.2 See_Comment [A utomated message] The = Eosinophils #) system wh h generated this result tra nsmitted reference range : <=0.5. The reference r malinda was not used to int erpret this result as normal/abnormal . [facility] CenterKxjeileYNLFXYZKCS4453-55-57 08:58:00 Test Item Value Reference Range Interpretation Comments Segs-Bands # (test code = Segs-Bands #) 5.4 1.5-8.1 [facility] CenterXtmjsitLJXPYBIBUF7643-12-52 08:58:00 Test Item Value Reference Range Interpretation Comments Monocytes # (test code 1.1 See_Comment [Aut omated message] The = Monocytes #) system which generated this result tra nsmitted reference range : <=0.8. The reference r malinda was not used to int erpret this result as normal/abnormal . [facility] CenterUruynswWWTBBYIHMI9373-41-55 08:58:00 Test Item Value Reference Range Interpretation Comments Lymphocytes # (test code = Lymphocytes 2.1 1.0-5.5 #) [facility] CenterKyekpdkNMZHRBTOVE1868-89-17 08:58:00 Test Item Value Reference Range Interpretation Comments Eosinophils (test code = 2.1 See_Comment [A utomated message] The Eosinophils) system which ge nerated this result tra nsmitted reference range : <=4.0. The reference r malinda was not used to int erpret this result as normal/abnormal . [facility] CenterOczfrleVOWLQUEHZR5838-58-70 08:58:00 Test Item Value Reference Range Interpretation Comments Basophils (test code = 0.6 See_Comment [Aut omated message] The Basophils) system which ge nerated this result tra nsmitted reference range : <=1.0. The reference r malinda was not used to int erpret this result as normal/abnormal . [facility] CenterNgngzsqEDSIDVBNAB0581-79-90 08:58:00 Test Item Value Reference Range Interpretation Comments Lymphocytes (test code = Lymphocytes) 23.7 20.0-40.0 [facility] CenterMlttvnuNIDRCODPZL4193-54-89 08:58:00 Test Item Value Reference Range Interpretation Comments Monocytes (test code = Monocytes) 12.4 2.0-12.0 [facility] CenterYlcxmozNKMAKWHDRC2307-25-64 08:58:00 Test Item Value Reference Range Interpretation Comments Segs (test code = Segs) 61.2 45.0-75.0 [facility]SmogchjEXCQWJGUQRKV9945-15-33 08:58:00 Test Item Value Reference Range Interpretation Comments Chloride Lvl (test code = Chloride Lvl) 99 95-109 [facility] CenterEnmmxffPDCGTJGWGSRH3558-24-39 08:58:00 Test Item Value Reference Range Interpretation Comments Potassium Lvl (test code = Potassium 2.5 3.5-5.1 Lvl) [facility] CenterSboipsqSLTVDKXYHRRF7237-73-36 08:58:00 Test Item Value Reference Range Interpretation Comments Sodium Lvl (test code = Sodium Lvl) 136 135-145 [facility] CenterCuqmfosLVCUYGQZTCGA8910-90-23 08:58:00 Test Item Value Reference Range Interpretation Comments CO2 (test code = CO2) 25 24-32 [facility] CenterExshldeXOOCAFIDEYNC8918-45-75 08:58:00 Test Item Value Reference Range Interpretation Comments eGFR (test code = eGFR) 93 [facility] CenterIbribmzSIDPCLZIUXXW4526-70-68 08:58:00 Test Item Value Reference Range Interpretation Comments Calcium Lvl (test code = Calcium Lvl) 9.5 8.5-10.5 [facility] CenterQqmxdgqFIHKALANXNRT6091-30-24 08:58:00 Test Item Value Reference Range Interpretation Comments AGAP (test code = AGAP) 14.5 10.0-20.0 [facility] CenterLaagleqAJAUIULQTXNX9384-53-99 08:58:00 Test Item Value Reference Range Interpretation Comments Glucose Lvl (test code = Glucose Lvl) 93 70-99 [facility] CenterErgrqcjMTWZPLTAAUDK8398-22-97 08:58:00 Test Item Value Reference Range Interpretation Comments BUN (test code = BUN) 24 7-22 [facility] CenterLezeozzWRSMSGZVELHO5383-90-00 08:58:00 Test Item Value Reference Range Interpretation Comments Creatinine Lvl (test code = Creatinine 0.57 0.50-1.40 Lvl) [facility] CenterJfzztbsKGPXBGPNOC4493-89-08 08:58:00 Test Item Value Reference Range Interpretation Comments PT (test code = PT) 15.9 s 12.0-14.7 [facility] CenterPuwfqupSDDZJTRQHG5121-29-36 08:58:00 Test Item Value Reference Range Interpretation Comments INR (test code = INR) 1.24 0.85-1.17 [facility] CenterVmcnraiZLEITRQKDU5997-06-81 08:58:00 Test Item Value Reference Range Interpretation Comments PTT (test code = PTT) 35.2 s 22.9-35.8 [facility] CenterEwirlqtFLUVQFBFHQ2512-51-54 08:58:00 Test Item Value Reference Range Interpretation Comments RBC (test code = RBC) 3.67 4.20-5.40 [facility] CenterWwewymgJNWPAOAOWS4771-14-96 08:58:00 Test Item Value Reference Range Interpretation Comments Hgb (test code = Hgb) 10.6 12.0-16.0 [facility] CenterNcqflzsOBNYMRPFHZ9132-18-92 08:58:00 Test Item Value Reference Range Interpretation Comments WBC (test code = WBC) 8.8 3.7-10.4 [facility] CenterPiafzvlDOTQEUIFPC5033-07-25 08:58:00 Test Item Value Reference Range Interpretation Comments Platelet (test code = Platelet) 490 133-450 [facility] CenterNpqqljcHHHGACVNML1399-35-07 08:58:00 Test Item Value Reference Range Interpretation Comments MPV (test code = MPV) 7.5 7.4-10.4 [facility] CenterYhyjlpbYBOQNBUJTR8495-61-99 08:58:00 Test Item Value Reference Range Interpretation Comments MCHC (test code = MCHC) 34.7 32.0-36.0 [facility] CenterKnpgjucVYLTELRECA2871-55-68 08:58:00 Test Item Value Reference Range Interpretation Comments RDW (test code = RDW) 13.8 11.5-14.5 [facility] CenterKkinrnbJKEDUWCGDB4378-77-10 08:58:00 Test Item Value Reference Range Interpretation Comments MCV (test code = MCV) 82.8 80.0-98.0 [facility] CenterEvtnmefSUCHIBAHSX2538-49-06 08:58:00 Test Item Value Reference Range Interpretation Comments MCH (test code = MCH) 28.8 pg 27.0-31.0 [facility] CenterYungasfSVQRWYVMIU1189-86-06 08:58:00 Test Item Value Reference Range Interpretation Comments Hct (test code = Hct) 30.4 36.0-48.0 [facility] CenterZszfmovWZWPAFYMKF7544-80-54 08:58:00 Test Item Value Reference Range Interpretation Comments Eosinophils # (test code 0.2 See_Comment [A utomated message] The = Eosinophils #) system whic h generated this result tra nsmitted reference range : <=0.5. The reference r malinda was not used to int erpret this result as normal/abnormal . [facility] CenterFthvkyjJLEPCKQAVA3956-71-73 08:58:00 Test Item Value Reference Range Interpretation Comments Segs-Bands # (test code = Segs-Bands #) 5.4 1.5-8.1 [facility] CenterFcdbfefNRAKLJRGUC3339-99-29 08:58:00 Test Item Value Reference Range Interpretation Comments Monocytes # (test code 1.1 See_Comment [Aut omated message] The = Monocytes #) system which generated this result tra nsmitted reference range : <=0.8. The reference r malinda was not used to int erpret this result as normal/abnormal . [facility] CenterMnqgrmwGADUFGROJU6391-51-69 08:58:00 Test Item Value Reference Range Interpretation Comments Lymphocytes # (test code = Lymphocytes 2.1 1.0-5.5 #) [facility] CenterAmqzmpyMXGHJDNPGV2835-24-92 08:58:00 Test Item Value Reference Range Interpretation Comments Eosinophils (test code = 2.1 See_Comment [A utomated message] The Eosinophils) system which ge nerated this result tra nsmitted reference range : <=4.0. The reference r malinda was not used to int erpret this result as normal/abnormal . [facility] CenterAgbkjsrQQCIBKHOQF1217-46-06 08:58:00 Test Item Value Reference Range Interpretation Comments Basophils (test code = 0.6 See_Comment [Aut omated message] The Basophils) system which ge nerated this result tra nsmitted reference range : <=1.0. The reference r malinda was not used to int erpret this result as normal/abnormal . [facility] CenterCtypdjwEXDMQDDYPP3996-88-57 08:58:00 Test Item Value Reference Range Interpretation Comments Lymphocytes (test code = Lymphocytes) 23.7 20.0-40.0 [facility] CenterRteelkzERVDLXENMI0845-07-02 08:58:00 Test Item Value Reference Range Interpretation Comments Monocytes (test code = Monocytes) 12.4 2.0-12.0 [facility] CenterQbjfjsgPRDCYRYOXD6958-26-52 08:58:00 Test Item Value Reference Range Interpretation Comments Segs (test code = Segs) 61.2 45.0-75.0 [facility] CenterKoxmlatKGKOGDALHQQY3724-11-10 08:58:00 Test Item Value Reference Range Interpretation Comments Chloride Lvl (test code = Chloride Lvl) 99 95-109 [facility] CenterSmzxbhoGJCEHNSGMIGK0080-04-93 08:58:00 Test Item Value Reference Range Interpretation Comments Potassium Lvl (test code = Potassium 2.5 3.5-5.1 Lvl) [facility] CenterCeiziaxNJZDUWOBURWZ8382-58-21 08:58:00 Test Item Value Reference Range Interpretation Comments Sodium Lvl (test code = Sodium Lvl) 136 135-145 [facility] CenterWthoypcQYHOXXURFBHY8033-74-66 08:58:00 Test Item Value Reference Range Interpretation Comments CO2 (test code = CO2) 25 24-32 [facility] CenterKqdgayxRTJQPOXMRRVY0200-99-27 08:58:00 Test Item Value Reference Range Interpretation Comments eGFR (test code = eGFR) 93 [facility] CenterYifgqppYEGOQXNQYRIG0561-64-33 08:58:00 Test Item Value Reference Range Interpretation Comments Calcium Lvl (test code = Calcium Lvl) 9.5 8.5-10.5 [facility] CenterBwrypvmFQWHYOQQGCSX3573-85-25 08:58:00 Test Item Value Reference Range Interpretation Comments AGAP (test code = AGAP) 14.5 10.0-20.0 [facility] CenterOabkeueQDUUYTVGQNHQ2414-19-43 08:58:00 Test Item Value Reference Range Interpretation Comments Glucose Lvl (test code = Glucose Lvl) 93 70-99 [facility]2016-10-04 09:47:00 Test Item Value Reference Range Interpretation Comments Magnesium Lvl (test code = Magnesium 1.5 1.8-2.4 Lvl) [facility]2016-10-04 09:47:00 Test Item Value Reference Range Interpretation Comments Magnesium Lvl (test code = Magnesium 1.5 1.8-2.4 Lvl) [facility]2016-10-04 09:47:00 Test Item Value Reference Range Interpretation Comments Magnesium Lvl (test code = Magnesium 1.5 1.8-2.4 Lvl) [facility]2016-10-04 09:47:00 Test Item Value Reference Range Interpretation Comments Magnesium Lvl (test code = Magnesium 1.5 1.8-2.4 Lvl) [facility]2016-10-04 05:40:00 Test Item Value Reference Range Interpretation Comments AST (test code = AST) 20 See_Comment [Auto mated message] The system which ge nerated this result transmit james reference range : <=37. The reference range was not used to interpr et this result as mary l/abnormal. [place] 453656-10-04 05:40:00 Test Item Value Reference Range Interpretation Comments Bili Total (test code = Bili Total) 0.8 0.2-1.3 [facility]2016-10-04 05:40:00 Test Item Value Reference Range Interpretation Comments Alk Phos (test code = Alk Phos) 31 39-136 [facility]2016-10-04 05:40:00 Test Item Value Reference Range Interpretation Comments eGFR (test code = eGFR) 88 [facility]2016-10-04 05:40:00 Test Item Value Reference Range Interpretation Comments Total Protein (test code = Total 6.1 6.4-8.4 Protein) [facility]2016-10-04 05:40:00 Test Item Value Reference Range Interpretation Comments Albumin Lvl (test code = Albumin Lvl) 2.8 3.5-5.0 [facility]2016-10-04 05:40:00 Test Item Value Reference Range Interpretation Comments CO2 (test code = CO2) 27 24-32 [facility]2016-10-04 05:40:00 Test Item Value Reference Range Interpretation Comments ALT (test code = ALT) 20 See_Comment [Auto mated message] The system which ge nerated this result transmit james reference range : <=65. The reference range was not used to interpr et this result as mary l/abnormal. [facility]2016-10-04 05:40:00 Test Item Value Reference Range Interpretation Comments A/G Ratio (test code = A/G Ratio) 0.8 0.7-1.6 [facility]2016-10-04 05:40:00 Test Item Value Reference Range Interpretation Comments Globulin (test code = Globulin) 3.3 2.7-4.2 [facility]2016-10-04 05:40:00 Test Item Value Reference Range Interpretation Comments AGAP (test code = AGAP) 15.9 10.0-20.0 [facility]2016-10-04 05:40:00 Test Item Value Reference Range Interpretation Comments B/C Ratio (test code = B/C Ratio) 33 6-25 [facility]2016-10-04 05:40:00 Test Item Value Reference Range Interpretation Comments Calcium Lvl (test code = Calcium Lvl) 9.1 8.5-10.5 [facility]2016-10-04 05:40:00 Test Item Value Reference Range Interpretation Comments Potassium Lvl (test code = Potassium 2.9 3.5-5.1 Lvl) [facility]2016-10-04 05:40:00 Test Item Value Reference Range Interpretation Comments Chloride Lvl (test code = Chloride Lvl) 100 95-109 [facility]2016-10-04 05:40:00 Test Item Value Reference Range Interpretation Comments Sodium Lvl (test code = Sodium Lvl) 140 135-145 [facility]2016-10-04 05:40:00 Test Item Value Reference Range Interpretation Comments Creatinine Lvl (test code = Creatinine 0.70 0.50-1.40 Lvl) [facility]2016-10-04 05:40:00 Test Item Value Reference Range Interpretation Comments BUN (test code = BUN) 23 7-22 [facility]2016-10-04 05:40:00 Test Item Value Reference Range Interpretation Comments Glucose Lvl (test code = Glucose Lvl) 113 70-99 [facility]2016-10-04 05:40:00 Test Item Value Reference Range Interpretation Comments AST (test code = AST) 20 See_Comment [Auto mated message] The system which ge nerated this result transmit james reference range : <=37. The reference range was not used to interpr et this result as mary l/abnormal. [facility]2016-10-04 05:40:00 Test Item Value Reference Range Interpretation Comments Bili Total (test code = Bili Total) 0.8 0.2-1.3 [facility]2016-10-04 05:40:00 Test Item Value Reference Range Interpretation Comments Alk Phos (test code = Alk Phos) 31 39-136 [facility]2016-10-04 05:40:00 Test Item Value Reference Range Interpretation Comments eGFR (test code = eGFR) 88 [facility]2016-10-04 05:40:00 Test Item Value Reference Range Interpretation Comments Total Protein (test code = Total 6.1 6.4-8.4 Protein) [facility]2016-10-04 05:40:00 Test Item Value Reference Range Interpretation Comments Albumin Lvl (test code = Albumin Lvl) 2.8 3.5-5.0 [facility]2016-10-04 05:40:00 Test Item Value Reference Range Interpretation Comments CO2 (test code = CO2) 27 24-32 [facility]2016-10-04 05:40:00 Test Item Value Reference Range Interpretation Comments ALT (test code = ALT) 20 See_Comment [Auto mated message] The system which ge nerated this result transmit james reference range : <=65. The reference range was not used to interpr et this result as mary l/abnormal. [facility]2016-10-04 05:40:00 Test Item Value Reference Range Interpretation Comments A/G Ratio (test code = A/G Ratio) 0.8 0.7-1.6 [facility]2016-10-04 05:40:00 Test Item Value Reference Range Interpretation Comments Globulin (test code = Globulin) 3.3 2.7-4.2 [facility]2016-10-04 05:40:00 Test Item Value Reference Range Interpretation Comments AGAP (test code = AGAP) 15.9 10.0-20.0 [facility]2016-10-04 05:40:00 Test Item Value Reference Range Interpretation Comments B/C Ratio (test code = B/C Ratio) 33 6-25 [facility]2016-10-04 05:40:00 Test Item Value Reference Range Interpretation Comments Calcium Lvl (test code = Calcium Lvl) 9.1 8.5-10.5 [facility]2016-10-04 05:40:00 Test Item Value Reference Range Interpretation Comments Potassium Lvl (test code = Potassium 2.9 3.5-5.1 Lvl) [facility]2016-10-04 05:40:00 Test Item Value Reference Range Interpretation Comments Chloride Lvl (test code = Chloride Lvl) 100 95-109 [facility]2016-10-04 05:40:00 Test Item Value Reference Range Interpretation Comments Sodium Lvl (test code = Sodium Lvl) 140 135-145 [facility]2016-10-04 05:40:00 Test Item Value Reference Range Interpretation Comments Creatinine Lvl (test code = Creatinine 0.70 0.50-1.40 Lvl) [facility]2016-10-04 05:40:00 Test Item Value Reference Range Interpretation Comments BUN (test code = BUN) 23 7-22 [facility]2016-10-04 05:40:00 Test Item Value Reference Range Interpretation Comments Glucose Lvl (test code = Glucose Lvl) 113 70-99 [facility]2016-10-04 05:40:00 Test Item Value Reference Range Interpretation Comments AST (test code = AST) 20 See_Comment [Auto mated message] The system which ge nerated this result transmit james reference range : <=37. The reference range was not used to interpr et this result as mary l/abnormal. [facility]2016-10-04 05:40:00 Test Item Value Reference Range Interpretation Comments Bili Total (test code = Bili Total) 0.8 0.2-1.3 [facility]2016-10-04 05:40:00 Test Item Value Reference Range Interpretation Comments Alk Phos (test code = Alk Phos) 31 39-136 [facility]2016-10-04 05:40:00 Test Item Value Reference Range Interpretation Comments eGFR (test code = eGFR) 88 [facility]2016-10-04 05:40:00 Test Item Value Reference Range Interpretation Comments Total Protein (test code = Total 6.1 6.4-8.4 Protein) [facility]2016-10-04 05:40:00 Test Item Value Reference Range Interpretation Comments Albumin Lvl (test code = Albumin Lvl) 2.8 3.5-5.0 [facility]2016-10-04 05:40:00 Test Item Value Reference Range Interpretation Comments CO2 (test code = CO2) 27 24-32 [facility]2016-10-04 05:40:00 Test Item Value Reference Range Interpretation Comments ALT (test code = ALT) 20 See_Comment [Auto mated message] The system which ge nerated this result transmit james reference range : <=65. The reference range was not used to interpr et this result as mary l/abnormal. [facility]2016-10-04 05:40:00 Test Item Value Reference Range Interpretation Comments A/G Ratio (test code = A/G Ratio) 0.8 0.7-1.6 [facility]2016-10-04 05:40:00 Test Item Value Reference Range Interpretation Comments Globulin (test code = Globulin) 3.3 2.7-4.2 [facility]2016-10-04 05:40:00 Test Item Value Reference Range Interpretation Comments AGAP (test code = AGAP) 15.9 10.0-20.0 [facility]2016-10-04 05:40:00 Test Item Value Reference Range Interpretation Comments B/C Ratio (test code = B/C Ratio) 33 6-25 [facility]2016-10-04 05:40:00 Test Item Value Reference Range Interpretation Comments Calcium Lvl (test code = Calcium Lvl) 9.1 8.5-10.5 [facility]2016-10-04 05:40:00 Test Item Value Reference Range Interpretation Comments Potassium Lvl (test code = Potassium 2.9 3.5-5.1 Lvl) [facility]2016-10-04 05:40:00 Test Item Value Reference Range Interpretation Comments Chloride Lvl (test code = Chloride Lvl) 100 95-109 [facility]2016-10-04 05:40:00 Test Item Value Reference Range Interpretation Comments Sodium Lvl (test code = Sodium Lvl) 140 135-145 [facility]2016-10-04 05:40:00 Test Item Value Reference Range Interpretation Comments Creatinine Lvl (test code = Creatinine 0.70 0.50-1.40 Lvl) [facility]2016-10-04 05:40:00 Test Item Value Reference Range Interpretation Comments BUN (test code = BUN) 23 7-22 [facility]2016-10-04 05:40:00 Test Item Value Reference Range Interpretation Comments Glucose Lvl (test code = Glucose Lvl) 113 70-99 [facility]2016-10-04 05:40:00 Test Item Value Reference Range Interpretation Comments AST (test code = AST) 20 See_Comment [Auto mated message] The system which ge nerated this result transmit james reference range : <=37. The reference range was not used to interpr et this result as mary l/abnormal. [facility]Print[facility] [id number] 05:40:00 Test Item Value Reference Range Interpretation Comments Bili Total (test code = Bili Total) 0.8 0.2-1.3 [facility]2016-10-04 05:40:00 Test Item Value Reference Range Interpretation Comments Alk Phos (test code = Alk Phos) 31 39-136 [facility]EximSoft-TrianzFRYE REGIONAL MED[facility] CENTERCULPA4950-33-83 05:40:00 Test Item Value Reference Range Interpretation Comments eGFR (test code = eGFR) 88 [facility]2016-10-04 05:40:00 Test Item Value Reference Range Interpretation Comments Total Protein (test code = Total 6.1 6.4-8.4 Protein) [facility]2016-10-04 05:40:00 Test Item Value Reference Range Interpretation Comments Albumin Lvl (test code = Albumin Lvl) 2.8 3.5-5.0 [facility]ieQinging Weekly [facility] [id number] 05:40:00 Test Item Value Reference Range Interpretation Comments CO2 (test code = CO2) 27 24-32 [facility]ieEximSoft-TrianzFRYE REGIONAL MEDICAL [id number] 05:40:00 Test Item Value Reference Range Interpretation Comments ALT (test code = ALT) 20 See_Comment [Auto mated message] The system which ge nerated this result transmit james reference range : <=65. The reference range was not used to interpr et this result as mary l/abnormal. [facility]ieQ[facility] [id number] 05:40:00 Test Item Value Reference Range Interpretation Comments A/G Ratio (test code = A/G Ratio) 0.8 0.7-1.6 [facility]2016-10-04 05:40:00 Test Item Value Reference Range Interpretation Comments Globulin (test code = Globulin) 3.3 2.7-4.2 [facility]2016-10-04 05:40:00 Test Item Value Reference Range Interpretation Comments AGAP (test code = AGAP) 15.9 10.0-20.0 [facility] [id number] 05:40:00 Test Item Value Reference Range Interpretation Comments B/C Ratio (test code = B/C Ratio) 33 6-25 [facility] [id number] 05:40:00 Test Item Value Reference Range Interpretation Comments Calcium Lvl (test code = Calcium Lvl) 9.1 8.5-10.5 [facility]2016-10-04 05:40:00 Test Item Value Reference Range Interpretation Comments Potassium Lvl (test code = Potassium 2.9 3.5-5.1 Lvl) [facility]ieEximSoft-TrianzFRYE REGIONAL MEDICAL [id number] 05:40:00 Test Item Value Reference Range Interpretation Comments Chloride Lvl (test code = Chloride Lvl) 100 95-109 [facility] [id number] 05:40:00 Test Item Value Reference Range Interpretation Comments Sodium Lvl (test code = Sodium Lvl) 140 135-145 [facility]2016-10-04 05:40:00 Test Item Value Reference Range Interpretation Comments Creatinine Lvl (test code = Creatinine 0.70 0.50-1.40 Lvl) [facility]ieEximSoft-TrianzFRYE REGIONAL MEDICAL [id number] 05:40:00 Test Item Value Reference Range Interpretation Comments BUN (test code = BUN) 23 7-22 [facility] [id number] 05:40:00 Test Item Value Reference Range Interpretation Comments Glucose Lvl (test code = Glucose Lvl) 113 70-99 [facility] [id number] 03:24:00 Test Item Value Reference Range Interpretation Comments Troponin-T (test code 0.092 See_Comment [Auto mated message] The = Troponin-T) system which g enerated this result transmit james reference range : <=0.100. The reference r malinda was not used to interpr et this result as mary l/abnormal. [facility]ieiSpot[facility] [id number] 03:24:00 Test Item Value Reference Range Interpretation Comments Troponin-I (test code 0.39 See_Comment [Auto mated message] The = Troponin-I) system which g enerated this result transmit james reference range : <=0.40. The reference r malinda was not used to interpr et this result as mary l/abnormal. [facility]2016-10-04 03:24:00 Test Item Value Reference Range Interpretation Comments Total CK (test code = Total CK) 42 [facility] [id number] 03:24:00 Test Item Value Reference Range Interpretation Comments Troponin-T (test code 0.092 See_Comment [Auto mated message] The = Troponin-T) system which g enerated this result transmit james reference range : <=0.100. The reference r malinda was not used to interpr et this result as mary l/abnormal. [facility]2016-10-04 03:24:00 Test Item Value Reference Range Interpretation Comments Troponin-I (test code 0.39 See_Comment [Auto mated message] The = Troponin-I) system which g enerated this result transmit james reference range : <=0.40. The reference r amlinda was not used to interpr et this result as mary l/abnormal. [facility]2016-10-04 03:24:00 Test Item Value Reference Range Interpretation Comments Total CK (test code = Total CK) 42 [facility]2016-10-04 03:24:00 Test Item Value Reference Range Interpretation Comments Troponin-T (test code 0.092 See_Comment [Auto mated message] The = Troponin-T) system which g enerated this result transmit james reference range : <=0.100. The reference r malinda was not used to interpr et this result as mary l/abnormal. [facility]2016-10-04 03:24:00 Test Item Value Reference Range Interpretation Comments Troponin-I (test code 0.39 See_Comment [Auto mated message] The = Troponin-I) system which g enerated this result transmit james reference range : <=0.40. The reference r malinda was not used to interpr et this result as mary l/abnormal. [facility]2016-10-04 03:24:00 Test Item Value Reference Range Interpretation Comments Total CK (test code = Total CK) 42 [facility]2016-10-04 03:24:00 Test Item Value Reference Range Interpretation Comments Troponin-T (test code 0.092 See_Comment [Auto mated message] The = Troponin-T) system which g enerated this result transmit james reference range : <=0.100. The reference r malinda was not used to interpr et this result as mary l/abnormal. [facility]2016-10-04 03:24:00 Test Item Value Reference Range Interpretation Comments Troponin-I (test code 0.39 See_Comment [Auto mated message] The = Troponin-I) system which g enerated this result transmit james reference range : <=0.40. The reference r malinda was not used to interpr et this result as mary l/abnormal. [facility]2016-10-04 03:24:00 Test Item Value Reference Range Interpretation Comments Total CK (test code = Total CK) 42 [facility]2016-10-03 23:47:00 Test Item Value Reference Range Interpretation Comments Troponin-T (test code 0.153 See_Comment [Auto mated message] The = Troponin-T) system which g enerated this result transmit james reference range : <=0.100. The reference r malinda was not used to interpr et this result as mary l/abnormal. [facility]2016-10-03 23:47:00 Test Item Value Reference Range Interpretation Comments Troponin-I (test code 0.42 See_Comment [Auto mated message] The = Troponin-I) system which g enerated this result transmit james reference range : <=0.40. The reference r malinda was not used to interpr et this result as mary l/abnormal. [facility]2016-10-03 23:47:00 Test Item Value Reference Range Interpretation Comments Total CK (test code = Total CK) 44 191 [facility]2016-10-03 23:47:00 Test Item Value Reference Range Interpretation Comments Troponin-T (test code 0.153 See_Comment [Auto mated message] The = Troponin-T) system which g enerated this result transmit james reference range : <=0.100. The reference r malinda was not used to interpr et this result as mary l/abnormal. [facility]2016-10-03 23:47:00 Test Item Value Reference Range Interpretation Comments Troponin-I (test code 0.42 See_Comment [Auto mated message] The = Troponin-I) system which g enerated this result transmit james reference range : <=0.40. The reference r malinda was not used to interpr et this result as mary l/abnormal. [facility] [id number] 23:47:00 Test Item Value Reference Range Interpretation Comments Total CK (test code = Total CK) 44 12-191 [facility] [id number] 23:47:00 Test Item Value Reference Range Interpretation Comments Troponin-T (test code 0.153 See_Comment [Auto mated message] The = Troponin-T) system which g enerated this result transmit james reference range : <=0.100. The reference r malinda was not used to interpr et this result as mary l/abnormal. [facility] [id number] 23:47:00 Test Item Value Reference Range Interpretation Comments Troponin-I (test code 0.42 See_Comment [Auto mated message] The = Troponin-I) system which g enerated this result transmit james reference range : <=0.40. The reference r malinda was not used to interpr et this result as mary l/abnormal. [facility] [id number] 23:47:00 Test Item Value Reference Range Interpretation Comments Total CK (test code = Total CK) 44 12-191 [facility] [id number] 23:47:00 Test Item Value Reference Range Interpretation Comments Troponin-T (test code 0.153 See_Comment [Auto mated message] The = Troponin-T) system which g enerated this result transmit james reference range : <=0.100. The reference r malinda was not used to interpr et this result as mary l/abnormal. [facility]2016-10-03 23:47:00 Test Item Value Reference Range Interpretation Comments Troponin-I (test code 0.42 See_Comment [Auto mated message] The = Troponin-I) system which g enerated this result transmit james reference range : <=0.40. The reference r malinda was not used to interpr et this result as mary l/abnormal. [facility]2016-10-03 23:47:00 Test Item Value Reference Range Interpretation Comments Total CK (test code = Total CK) 44 [facility]2016-10-03 19:56:00 Test Item Value Reference Range Interpretation Comments Troponin-T (test code 0.149 See_Comment [Auto mated message] The = Troponin-T) system which g enerated this result transmit james reference range : <=0.100. The reference r malinda was not used to interpr et this result as mary l/abnormal. [facility]2016-10-03 19:56:00 Test Item Value Reference Range Interpretation Comments Troponin-I (test code 0.44 See_Comment [Auto mated message] The = Troponin-I) system which g enerated this result transmit james reference range : <=0.40. The reference r malinda was not used to interpr et this result as mary l/abnormal. [facility]2016-10-03 19:56:00 Test Item Value Reference Range Interpretation Comments Total CK (test code = Total CK) 46 [facility]2016-10-03 19:56:00 Test Item Value Reference Range Interpretation Comments Troponin-T (test code 0.149 See_Comment [Auto mated message] The = Troponin-T) system which g enerated this result transmit james reference range : <=0.100. The reference r malinda was not used to interpr et this result as mary l/abnormal. [facility]2016-10-03 19:56:00 Test Item Value Reference Range Interpretation Comments Troponin-I (test code 0.44 See_Comment [Auto mated message] The = Troponin-I) system which g enerated this result transmit james reference range : <=0.40. The reference r malinda was not used to interpr et this result as mary l/abnormal. [facility]2016-10-03 19:56:00 Test Item Value Reference Range Interpretation Comments Total CK (test code = Total CK) 46 [facility]2016-10-03 19:56:00 Test Item Value Reference Range Interpretation Comments Troponin-T (test code 0.149 See_Comment [Auto mated message] The = Troponin-T) system which g enerated this result transmit james reference range : <=0.100. The reference r malinda was not used to interpr et this result as mary l/abnormal. [facility] [id number] 19:56:00 Test Item Value Reference Range Interpretation Comments Troponin-I (test code 0.44 See_Comment [Auto mated message] The = Troponin-I) system which g enerated this result transmit james reference range : <=0.40. The reference r malinda was not used to interpr et this result as mary l/abnormal. [facility] [id number] 19:56:00 Test Item Value Reference Range Interpretation Comments Total CK (test code = Total CK) 46 [facility] [id number] 19:56:00 Test Item Value Reference Range Interpretation Comments Troponin-T (test code 0.149 See_Comment [Auto mated message] The = Troponin-T) system which g enerated this result transmit james reference range : <=0.100. The reference r malinda was not used to interpr et this result as mary l/abnormal. [facility] [id number] 19:56:00 Test Item Value Reference Range Interpretation Comments Troponin-I (test code 0.44 See_Comment [Auto mated message] The = Troponin-I) system which g enerated this result transmit james reference range : <=0.40. The reference r malinda was not used to interpr et this result as mary l/abnormal. [facility] [id number] 19:56:00 Test Item Value Reference Range Interpretation Comments Total CK (test code = Total CK) 46 [facility] H[id number] 17:32:00 Test Item Value Reference Range Interpretation Comments Basophils # (test code 0.1 See_Comment [Aut omated message] The = Basophils #) system which generated this result tra nsmitted reference range : <=0.2. The reference r malinda was not used to int erpret this result as normal/abnormal . [id number] 17:32:00 Test Item Value Reference Range Interpretation Comments Lymphocytes (test code = Lymphocytes) 14.6 20.0-40.0 [facility] H[id number] 17:32:00 Test Item Value Reference Range Interpretation Comments Segs-Bands # (test code = Segs-Bands #) 4.5 1.5-8.1 [facility] CenterAibqnpoULHMLXZSIT4877-15-28 17:32:00 Test Item Value Reference Range Interpretation Comments Monocytes (test code = Monocytes) 4.2 2.0-12.0 [facility] CenterVlkyaxqPYETHCAJVD7884-90-12 17:32:00 Test Item Value Reference Range Interpretation Comments Basophils (test code = 0.9 See_Comment [Aut omated message] The Basophils) system which ge nerated this result tra nsmitted reference range : <=1.0. The reference r malinda was not used to int erpret this result as normal/abnormal . [facility] CenterEepornvBLULTNGSFW0124-39-34 17:32:00 Test Item Value Reference Range Interpretation Comments Eosinophils # (test code 0.4 See_Comment [A utomated message] The = Eosinophils #) system [facility] h generated this result tra nsmitted reference range : <=0.5. The reference r malinda was not used to int erpret this result as normal/abnormal . [facility] [id number] 17:32:00 Test Item Value Reference Range Interpretation Comments Monocytes # (test code 0.3 See_Comment [Aut omated message] The = Monocytes #) system which generated this result tra nsmitted reference range : <=0.8. The reference r malinda was not used to int erpret this result as normal/abnormal . [facility] CenterWnhrnubRJIXQLJJND4521-86-46 17:32:00 Test Item Value Reference Range Interpretation Comments Lymphocytes # (test code = Lymphocytes 0.9 1.0-5.5 #) [facility] CenterPkaboxeTKBSQEXPHI0470-65-59 17:32:00 Test Item Value Reference Range Interpretation Comments Segs (test code = Segs) 74.1 45.0-75.0 [facility] Cent[id number] 17:32:00 Test Item Value Reference Range Interpretation Comments Eosinophils (test code = 6.2 See_Comment [A utomated message] The Eosinophils) system which ge nerated this result tra nsmitted reference range : <=4.0. The reference r malinda was not used to int erpret this result as normal/abnormal . [facility] Cent[id number] 17:32:00 Test Item Value Reference Range Interpretation Comments MPV (test code = MPV) 6.7 7.4-10.4 [facility] CenterYmzfmjgWHRMCIYCJM2763-88-02 17:32:00 Test Item Value Reference Range Interpretation Comments Platelet (test code = Platelet) 300 133-450 [facility] Cent[id number] 17:32:00 Test Item Value Reference Range Interpretation Comments Hct (test code = Hct) 31.2 36.0-48.0 [facility] CenterNvevinjFEFLFSVARR6793-09-11 17:32:00 Test Item Value Reference Range Interpretation Comments Hgb (test code = Hgb) 10.5 12.0-16.0 [facility] CenterHkuzvluXXMQHQJOYB8428-07-59 17:32:00 Test Item Value Reference Range Interpretation Comments MCV (test code = MCV) 84.5 80.0-98.0 [facility] CenterRpowbyrGJCARHIKBA5159-47-04 17:32:00 Test Item Value Reference Range Interpretation Comments MCHC (test code = MCHC) 33.6 32.0-36.0 [facility] CenterQesgsrvEWISIWJBQQ1877-71-78 17:32:00 Test Item Value Reference Range Interpretation Comments MCH (test code = MCH) 28.4 pg 27.0-31.0 [facility] CenterVestrjfXGPRZVBMZL1402-00-52 17:32:00 Test Item Value Reference Range Interpretation Comments RDW (test code = RDW) 13.5 11.5-14.5 [facility] CenterIabbgjtYCVHLJHUSD2079-90-50 17:32:00 Test Item Value Reference Range Interpretation Comments WBC (test code = WBC) 6.0 3.7-10.4 [facility] CenterEdpcjnuQXHDCIQVVN1123-03-53 17:32:00 Test Item Value Reference Range Interpretation Comments RBC (test code = RBC) 3.69 4.20-5.40 [facility] CenterWwimffdXNDNVOICLH8661-76-72 17:32:00 Test Item Value Reference Range Interpretation Comments Basophils # (test code 0.1 See_Comment [Aut omated message] The = Basophils #) system which generated this result tra nsmitted reference range : <=0.2. The reference r malinda was not used to int erpret this result as normal/abnormal . [facility] CenterUucnysbWJPBXVMAMP9651-23-30 17:32:00 Test Item Value Reference Range Interpretation Comments Lymphocytes (test code = Lymphocytes) 14.6 20.0-40.0 [facility] CenterEwprnjzKBQEMEAFTR4201-56-20 17:32:00 Test Item Value Reference Range Interpretation Comments Segs-Bands # (test code = Segs-Bands #) 4.5 1.5-8.1 [facility] CenterSeoivaqYUWOMQAEJE2825-58-69 17:32:00 Test Item Value Reference Range Interpretation Comments Monocytes (test code = Monocytes) 4.2 2.0-12.0 [facility] CenterMeikygxCOCSOKACXX2395-54-78 17:32:00 Test Item Value Reference Range Interpretation Comments Basophils (test code = 0.9 See_Comment [Aut omated message] The Basophils) system which ge nerated this result tra nsmitted reference range : <=1.0. The reference r malinda was not used to int erpret this result as normal/abnormal . [facility] CenterLukdvmfXJLGBUMWAD5901-73-00 17:32:00 Test Item Value Reference Range Interpretation Comments Eosinophils # (test code 0.4 See_Comment [A utomated message] The = Eosinophils #) system wh h generated this result tra nsmitted reference range : <=0.5. The reference r malinda was not used to int erpret this result as normal/abnormal . [facility] CenterXcmrecjRGEBVZAGNZ9528-26-90 17:32:00 Test Item Value Reference Range Interpretation Comments Monocytes # (test code 0.3 See_Comment [Aut omated message] The = Monocytes #) system which generated this result tra nsmitted reference range : <=0.8. The reference r malinda was not used to int erpret this result as normal/abnormal . [facility] CenterFyefhvbGEPAWCSKRJ7463-84-25 17:32:00 Test Item Value Reference Range Interpretation Comments Lymphocytes # (test code = Lymphocytes 0.9 1.0-5.5 #) [facility] CenterJqhcpfsZTCKAPDSDI8502-34-49 17:32:00 Test Item Value Reference Range Interpretation Comments Segs (test code = Segs) 74.1 45.0-75.0 [facility] CenterAdpqfqkBSXKESWWLP7752-62-46 17:32:00 Test Item Value Reference Range Interpretation Comments Eosinophils (test code = 6.2 See_Comment [A utomated message] The Eosinophils) system which ge nerated this result tra nsmitted reference range : <=4.0. The reference r malinda was not used to int erpret this result as normal/abnormal . [facility] CenterXrifpkhLGCRPYYGUY1972-41-20 17:32:00 Test Item Value Reference Range Interpretation Comments MPV (test code = MPV) 6.7 7.4-10.4 [facility] CenterQqqkyacAADDRNKRAD3251-53-99 17:32:00 Test Item Value Reference Range Interpretation Comments Platelet (test code = Platelet) 300 133-450 [facility] CenterGhsqdabLLGIAAVQOS5376-69-71 17:32:00 Test Item Value Reference Range Interpretation Comments Hct (test code = Hct) 31.2 36.0-48.0 [facility] CenterByfwcjbPOEAXFTTYX1781-42-93 17:32:00 Test Item Value Reference Range Interpretation Comments Hgb (test code = Hgb) 10.5 12.0-16.0 [facility] CenterVchzewmXMPKIXTCQL6976-66-19 17:32:00 Test Item Value Reference Range Interpretation Comments MCV (test code = MCV) 84.5 80.0-98.0 [facility] CenterSggwgyjHSCEPADDXA0045-66-28 17:32:00 Test Item Value Reference Range Interpretation Comments MCHC (test code = MCHC) 33.6 32.0-36.0 [facility] CenterEdqcgcbZADIOCDYAD9526-78-01 17:32:00 Test Item Value Reference Range Interpretation Comments MCH (test code = MCH) 28.4 pg 27.0-31.0 [facility] CenterYkkpifwGVTCMTPNVV4172-51-28 17:32:00 Test Item Value Reference Range Interpretation Comments RDW (test code = RDW) 13.5 11.5-14.5 [facility] CenterYpnlcpbHWWOKPJAPB9740-19-19 17:32:00 Test Item Value Reference Range Interpretation Comments WBC (test code = WBC) 6.0 3.7-10.4 [facility] CenterDdsrfwyDOYAVLIVIO1971-68-37 17:32:00 Test Item Value Reference Range Interpretation Comments RBC (test code = RBC) 3.69 4.20-5.40 [facility] CenterWinvqaqJSFWIAOVGC8386-09-32 17:32:00 Test Item Value Reference Range Interpretation Comments Basophils # (test code 0.1 See_Comment [Aut omated message] The = Basophils #) system which generated this result tra nsmitted reference range : <=0.2. The reference r malinda was not used to int erpret this result as normal/abnormal . [facility] CenterJtfbrofMRFDUGTZPE7699-35-72 17:32:00 Test Item Value Reference Range Interpretation Comments Lymphocytes (test code = Lymphocytes) 14.6 20.0-40.0 [facility] CenterRvfckorOCXAZYFQXF2442-29-06 17:32:00 Test Item Value Reference Range Interpretation Comments Segs-Bands # (test code = Segs-Bands #) 4.5 1.5-8.1 [facility] CenterOuvodbaJAXMTBPEEH6224-02-45 17:32:00 Test Item Value Reference Range Interpretation Comments Monocytes (test code = Monocytes) 4.2 2.0-12.0 [facility] CenterSsncltjLTXTPRLNKU6696-38-11 17:32:00 Test Item Value Reference Range Interpretation Comments Basophils (test code = 0.9 See_Comment [Aut omated message] The Basophils) system which ge nerated this result tra nsmitted reference range : <=1.0. The reference r malinda was not used to int erpret this result as normal/abnormal . [facility] CenterYdqgdtkHWYPRZXQRW0055-13-81 17:32:00 Test Item Value Reference Range Interpretation Comments Eosinophils # (test code 0.4 See_Comment [A utomated message] The = Eosinophils #) system whic h generated this result tra nsmitted reference range : <=0.5. The reference r malinda was not used to int erpret this result as normal/abnormal . [facility] CenterSojxggaZLNNKKUXTW6872-34-87 17:32:00 Test Item Value Reference Range Interpretation Comments Monocytes # (test code 0.3 See_Comment [Aut omated message] The = Monocytes #) system which generated this result tra nsmitted reference range : <=0.8. The reference r malinda was not used to int erpret this result as normal/abnormal . [facility] CenterRatpxroIHKNTVIFRE7686-14-23 17:32:00 Test Item Value Reference Range Interpretation Comments Lymphocytes # (test code = Lymphocytes 0.9 1.0-5.5 #) [facility] CenterGgnzuesWPNANTWHGD4146-13-77 17:32:00 Test Item Value Reference Range Interpretation Comments Segs (test code = Segs) 74.1 45.0-75.0 [facility] CenterDmfhxfcHNUHELWMCA3655-69-30 17:32:00 Test Item Value Reference Range Interpretation Comments Eosinophils (test code = 6.2 See_Comment [A utomated message] The Eosinophils) system which ge nerated this result tra nsmitted reference range : <=4.0. The reference r malinda was not used to int erpret this result as normal/abnormal . [facility] CenterRjdahxbOIUGWFOSGP6544-31-01 17:32:00 Test Item Value Reference Range Interpretation Comments MPV (test code = MPV) 6.7 7.4-10.4 [facility] CenterTmzysekYXNEQAXXBL2025-13-84 17:32:00 Test Item Value Reference Range Interpretation Comments Platelet (test code = Platelet) 300 133-450 [facility] CenterGirbhtoEHIDNFVNTC8358-17-46 17:32:00 Test Item Value Reference Range Interpretation Comments Hct (test code = Hct) 31.2 36.0-48.0 [facility] CenterLrzeeyiEYFXKQACLD8743-36-01 17:32:00 Test Item Value Reference Range Interpretation Comments Basophils # (test code 0.1 See_Comment [Aut omated message] The = Basophils #) system which generated this result tra nsmitted reference range : <=0.2. The reference r malinda was not used to int erpret this result as normal/abnormal . [facility] CenterZyyvxvdLWAPOUDOYV2926-72-62 17:32:00 Test Item Value Reference Range Interpretation Comments Lymphocytes (test code = Lymphocytes) 14.6 20.0-40.0 [facility] CenterOyagijsUGCKAXBHDZ4296-50-21 17:32:00 Test Item Value Reference Range Interpretation Comments Segs-Bands # (test code = Segs-Bands #) 4.5 1.5-8.1 [facility] CenterGymqtwyBVPPCJUNNW0639-39-95 17:32:00 Test Item Value Reference Range Interpretation Comments Monocytes (test code = Monocytes) 4.2 2.0-12.0 [facility] CenterUjylbwoMKFGWJKZRR9377-36-67 17:32:00 Test Item Value Reference Range Interpretation Comments Basophils (test code = 0.9 See_Comment [Aut omated message] The Basophils) system which ge nerated this result tra nsmitted reference range : <=1.0. The reference r malinda was not used to int erpret this result as normal/abnormal . [facility] CenterBjdqwmtVSRQTSIGCZ1157-33-00 17:32:00 Test Item Value Reference Range Interpretation Comments Eosinophils # (test code 0.4 See_Comment [A utomated message] The = Eosinophils #) system whic h generated this result tra nsmitted reference range : <=0.5. The reference r malinda was not used to int erpret this result as normal/abnormal . [facility] CenterTqcwguvTBLIUOYZWM4197-71-54 17:32:00 Test Item Value Reference Range Interpretation Comments Monocytes # (test code 0.3 See_Comment [Aut omated message] The = Monocytes #) system which generated this result tra nsmitted reference range : <=0.8. The reference r malinda was not used to int erpret this result as normal/abnormal . [facility] CenterDhcehodIXGAQKNUHU6498-07-25 17:32:00 Test Item Value Reference Range Interpretation Comments Hgb (test code = Hgb) 10.5 12.0-16.0 [facility] CenterGcodsitRSLQGDBGDA2589-32-32 17:32:00 Test Item Value Reference Range Interpretation Comments Lymphocytes # (test code = Lymphocytes 0.9 1.0-5.5 #) [facility] CenterOfpkuagAMFJZCDVWM5964-10-71 17:32:00 Test Item Value Reference Range Interpretation Comments Segs (test code = Segs) 74.1 45.0-75.0 [facility] CenterInoqcyuJIHIJTUPGQ3569-61-24 17:32:00 Test Item Value Reference Range Interpretation Comments Eosinophils (test code = 6.2 See_Comment [A utomated message] The Eosinophils) system which ge nerated this result tra nsmitted reference range : <=4.0. The reference r malinda was not used to int erpret this result as normal/abnormal . [facility] CenterGcudxfrZLYRLIANIN5077-13-11 17:32:00 Test Item Value Reference Range Interpretation Comments MPV (test code = MPV) 6.7 7.4-10.4 [facility] CenterMpmceiuZJATKCMZUS2397-63-39 17:32:00 Test Item Value Reference Range Interpretation Comments Platelet (test code = Platelet) 300 133-450 [facility] CenterHqueeivPLATKSBEPJ2236-62-32 17:32:00 Test Item Value Reference Range Interpretation Comments Hct (test code = Hct) 31.2 36.0-48.0 [facility] CenterAfykuuvOQMVQQYUCX0772-51-03 17:32:00 Test Item Value Reference Range Interpretation Comments Hgb (test code = Hgb) 10.5 12.0-16.0 [facility] CenterRyrcphyQKFGMLYCWQ0259-85-01 17:32:00 Test Item Value Reference Range Interpretation Comments MCV (test code = MCV) 84.5 80.0-98.0 [facility] CenterMibughaAXDFOZQEDN4852-90-65 17:32:00 Test Item Value Reference Range Interpretation Comments MCHC (test code = MCHC) 33.6 32.0-36.0 [facility] CenterFmbnjkaQNXYEULOEY1613-04-70 17:32:00 Test Item Value Reference Range Interpretation Comments MCH (test code = MCH) 28.4 pg 27.0-31.0 [facility] CenterSjvfbdpKYBMACTSEN3343-98-98 17:32:00 Test Item Value Reference Range Interpretation Comments MCV (test code = MCV) 84.5 80.0-98.0 [facility] CenterBndhksjUAAIFPVAEV1332-01-92 17:32:00 Test Item Value Reference Range Interpretation Comments RDW (test code = RDW) 13.5 11.5-14.5 [facility] CenterTwzadueCEZBECWFUW8236-90-39 17:32:00 Test Item Value Reference Range Interpretation Comments WBC (test code = WBC) 6.0 3.7-10.4 [facility] CenterMmeqbuwXOWIERPOPD4389-85-20 17:32:00 Test Item Value Reference Range Interpretation Comments RBC (test code = RBC) 3.69 4.20-5.40 [facility] CenterNewovghHLGASRKYJE3538-37-50 17:32:00 Test Item Value Reference Range Interpretation Comments MCHC (test code = MCHC) 33.6 32.0-36.0 [facility] CenterVmoahsoKFHFFTCDQG9184-22-07 17:32:00 Test Item Value Reference Range Interpretation Comments MCH (test code = MCH) 28.4 pg 27.0-31.0 [facility] CenterCzuabspGTKCNPUVBP8860-30-97 17:32:00 Test Item Value Reference Range Interpretation Comments RDW (test code = RDW) 13.5 11.5-14.5 [facility] CenterItqtidrFPWDRUSQNW7790-42-14 17:32:00 Test Item Value Reference Range Interpretation Comments WBC (test code = WBC) 6.0 3.7-10.4 [facility] CenterVqkirklVLACXFRMKG8732-58-15 17:32:00 Test Item Value Reference Range Interpretation Comments RBC (test code = RBC) 3.69 4.20-5.40 [facility] JRRRXYS2326-23-64 11:02:00 Test Item Value Reference Range Interpretation Comments Antibody Scrn (test Negative (04/01/16 6:02 code = Antibody Scrn) AM) [facility] [employer] BANK JOGWDAF8919-19-20 11:02:00 Test Item Value Reference Range Interpretation Comments ABO/Rh (test code = ABO/Rh) A POS [facility] [employer] B[facility] EQIYJPI8722-97-39 11:02:00 Test Item Value Reference Range Interpretation Comments Antibody Scrn (test Negative (04/01/16 6:02 code = Antibody Scrn) AM) [facility] VHZULDR0701-44-78 11:02:00 Test Item Value Reference Range Interpretation Comments ABO/Rh (test code = ABO/Rh) A POS [facility] [employer] B[facility] GWIJYCQ2416-25-73 11:02:00 Test Item Value Reference Range Interpretation Comments Antibody Scrn (test Negative (04/01/16 6:02 code = Antibody Scrn) AM) [facility] [id number] 11:02:00 Test Item Value Reference Range Interpretation Comments ABO/Rh (test code = ABO/Rh) A POS [facility] [employer] [id number] 11:02:00 Test Item Value Reference Range Interpretation Comments Antibody Scrn (test Negative (04/01/16 6:02 code = Antibody Scrn) AM) [facility] OKMDPYM3518-66-52 11:02:00 Test Item Value Reference Range Interpretation Comments ABO/Rh (test code = ABO/Rh) A POS [facility] [employer] [id number] 21:25:00 Test Item Value Reference Range Interpretation Comments Albumin Lvl (test code = Albumin Lvl) 3.5 3.5-5.0 [facility] [employer] [id number] 21:25:00 Test Item Value Reference Range Interpretation Comments ALT (test code = ALT) 28 See_Comment [Auto mated message] The system which ge nerated this result transmit james reference range : <=65. The reference range was not used to interpr et this result as mary l/abnormal. [facility] [employer]2016-09-26 21:25:00 Test Item Value Reference Range Interpretation Comments AST (test code = AST) 22 See_Comment [Auto mated message] The system which ge nerated this result transmit james reference range : <=37. The reference range was not used to interpr et this result as mary l/abnormal. [facility]2016-09-26 21:25:00 Test Item Value Reference Range Interpretation Comments Total Protein (test code = Total 6.2 6.4-8.4 Protein) [facility]2016-09-26 21:25:00 Test Item Value Reference Range Interpretation Comments Alk Phos (test code = Alk Phos) 37 39-136 [facility]2016-09-26 21:25:00 Test Item Value Reference Range Interpretation Comments Bili Total (test code = Bili Total) 0.5 0.2-1.3 [place] 453656-09-26 21:25:00 Test Item Value Reference Range Interpretation Comments Globulin (test code = Globulin) 2.7 2.7-4.2 [facility]2016-09-26 21:25:00 Test Item Value Reference Range Interpretation Comments A/G Ratio (test code = A/G Ratio) 1.3 0.7-1.6 [facility]2016-09-26 21:25:00 Test Item Value Reference Range Interpretation Comments B/C Ratio (test code = B/C Ratio) 30 6-25 [facility] CenterWmjdyypOYZCNNIBIK9316-06-20 21:25:00 Test Item Value Reference Range Interpretation Comments Segs-Bands # (test code = Segs-Bands #) 4.3 1.5-8.1 [facility] CenterTrwdtfqLVPHUJQTTX2710-72-96 21:25:00 Test Item Value Reference Range Interpretation Comments Monocytes # (test code 0.7 See_Comment [Aut omated message] The = Monocytes #) system which generated this result tra nsmitted reference range : <=0.8. The reference r malinda was not used to int erpret this result as normal/abnormal . [facility] CenterErxdhdsDRCNGXCRCH9768-42-82 21:25:00 Test Item Value Reference Range Interpretation Comments Lymphocytes # (test code = Lymphocytes 1.3 1.0-5.5 #) [facility] CenterVzowrbvRIMDVNYVTE0272-44-25 21:25:00 Test Item Value Reference Range Interpretation Comments Basophils # (test code 0.1 See_Comment [Aut omated message] The = Basophils #) system which generated this result tra nsmitted reference range : <=0.2. The reference r malinda was not used to int erpret this result as normal/abnormal . [facility] CenterUmyqtfwRFSUPPMMPC5762-77-07 21:25:00 Test Item Value Reference Range Interpretation Comments Eosinophils # (test code 1.1 See_Comment [A utomated message] The = Eosinophils #) system whic h generated this result tra nsmitted reference range : <=0.5. The reference r malinda was not used to int erpret this result as normal/abnormal . [facility] CenterQdrrxugNDCFVZSYFC0934-29-25 21:25:00 Test Item Value Reference Range Interpretation Comments Segs (test code = Segs) 57.3 45.0-75.0 [facility] CenterHjubnqrIQIIGSXQTE6027-05-20 21:25:00 Test Item Value Reference Range Interpretation Comments Lymphocytes (test code = Lymphocytes) 16.9 20.0-40.0 [facility] CenterHcqrfblSANMWEUDOC3243-45-28 21:25:00 Test Item Value Reference Range Interpretation Comments Eosinophils (test code = 14.8 See_Comment [A utomated message] The Eosinophils) system which ge nerated this result tra nsmitted reference range : <=4.0. The reference r malinda was not used to int erpret this result as normal/abnormal . [facility] CenterFwbpgiiECADERVBJP1767-36-00 21:25:00 Test Item Value Reference Range Interpretation Comments Basophils (test code = 1.4 See_Comment [Aut omated message] The Basophils) system which ge nerated this result tra nsmitted reference range : <=1.0. The reference r malinda was not used to int erpret this result as normal/abnormal . [facility] CenterUflynccRBRLDEBSFX4196-06-77 21:25:00 Test Item Value Reference Range Interpretation Comments Monocytes (test code = Monocytes) 9.6 2.0-12.0 [facility] CenterQximfvbSKIEXYVUPQ9667-70-21 21:25:00 Test Item Value Reference Range Interpretation Comments Ly30 (test code = 8.9 See_Comment [Automate d message] The Ly30) system which ge nerated this result transmit james reference range : <=7.5. The reference range was not used to interpr et this result as mary l/abnormal. [facility] CenterLgrjxagVXZFPYNXPG8182-85-77 21:25:00 Test Item Value Reference Range Interpretation Comments G-value (test code = G-value) 13.2 4.5-11.0 [facility] CenterZwayuzaTJSNBKDJHC8395-21-91 21:25:00 Test Item Value Reference Range Interpretation Comments TEG Data (test code = See Note (03/28/16 4:25 TEG Data) PM) [facility] CenterCwzpnvqEPUVIYXYKA0424-73-99 21:25:00 Test Item Value Reference Range Interpretation Comments Coag Index (test code 4.2 See_Comment [Auto mated message] The = Coag Index) system which g enerated this result transmit james reference range : <=3.0. The reference range was not used to interpr et this result as mary l/abnormal. [facility] CenterOputzobCVVZCNRPWD4755-61-25 21:25:00 Test Item Value Reference Range Interpretation Comments Angle (test code = Angle) 76.9 degrees 53.0-72.0 [facility] CenterJvebhkqLOOZQVVZEH4879-66-34 21:25:00 Test Item Value Reference Range Interpretation Comments R-time (test code = R-time) 3.7 min 5.0-10.0 [facility] CenterSgdhafjCOQEPOVZOH8111-29-33 21:25:00 Test Item Value Reference Range Interpretation Comments Max Amp (test code = Max Amp) 72.5 mm 50.0-70.0 [facility] CenterQbjmwiuPTZSOWKMKY0953-17-53 21:25:00 Test Item Value Reference Range Interpretation Comments K-time (test code = K-time) 0.8 min 1.0-3.0 [facility] CenterWccxvoaAGMZDRTZSM1592-95-05 21:25:00 Test Item Value Reference Range Interpretation [...] DIC with DIC panel may be indicated. CPT:01955 [facility] CenterJnylwfzSJUCUDWCYY8778-90-86 21:25:00 Test Item Value Reference Range Interpretation Comments Hgb (test code = Hgb) 11.8 12.0-16.0 [place] 266576-09-26 21:25:00 Test Item Value Reference Range Interpretation Comments Hct (test code = Hct) 35.6 36.0-48.0 [facility]WdrrszaOAMEJIMMNH0286-18-43 21:25:00 Test Item Value Reference Range Interpretation Comments MCHC (test code = MCHC) 33.3 32.0-36.0 [facility] HospitalMeayrfuNOBLHIFWVY9640-05-29 21:25:00 Test Item Value Reference Range Interpretation Comments MPV (test code = MPV) 7.6 7.4-10.4 [facility] CenterDszesuhHADLMTRPMS7345-05-86 21:25:00 Test Item Value Reference Range Interpretation Comments RDW (test code = RDW) 13.7 11.5-14.5 [facility] HospitalGkmffutCQSEPNOZYT4834-34-89 21:25:00 Test Item Value Reference Range Interpretation Comments Platelet (test code = Platelet) 298 133-450 [facility] CenterUmqqtxjVTQEFXASHT1840-33-45 21:25:00 Test Item Value Reference Range Interpretation Comments MCV (test code = MCV) 85.0 80.0-98.0 [facility] CenterXibsibtFNKXEFGFBL0632-41-09 21:25:00 Test Item Value Reference Range Interpretation Comments MCH (test code = MCH) 28.3 pg 27.0-31.0 [facility] HospitalRljqiqaFDIGSPFCDO2250-63-25 21:25:00 Test Item Value Reference Range Interpretation Comments WBC (test code = WBC) 7.5 3.7-10.4 [facility] HospitalApylsapLLTVZFUDCW6134-90-76 21:25:00 Test Item Value Reference Range Interpretation Comments RBC (test code = RBC) 4.18 4.20-5.40 [facility] CGSNMZODA5822-64-70 21:25:00 Test Item Value Reference Range Interpretation Comments Hgb A1C (test code = Hgb A1C) 5.2 [facility]9814-20-58 21:25:00 Test Item Value Reference Range Interpretation Comments Albumin Lvl (test code = Albumin Lvl) 3.5 3.5-5.0 [facility] ARAHE5314-47-14 21:25:00 Test Item Value Reference Range Interpretation Comments ALT (test code = ALT) 28 See_Comment [Auto mated message] The system which ge nerated this result transmit james reference range : <=65. The reference range was not used to interpr et this result as mary l/abnormal. [facility] HospitalPrintLess Plans EUUMW5323-50-26 21:25:00 Test Item Value Reference Range Interpretation Comments AST (test code = AST) 22 See_Comment [Auto mated message] The system which ge nerated this result transmit james reference range : <=37. The reference range was not used to interpr et this result as mary l/abnormal. [facility]2016-09-26 21:25:00 Test Item Value Reference Range Interpretation Comments Total Protein (test code = Total 6.2 6.4-8.4 Protein) [facility]2016-09-26 21:25:00 Test Item Value Reference Range Interpretation Comments Alk Phos (test code = Alk Phos) 37 39-136 [facility]2016-09-26 21:25:00 Test Item Value Reference Range Interpretation Comments Bili Total (test code = Bili Total) 0.5 0.2-1.3 [facility]2016-09-26 21:25:00 Test Item Value Reference Range Interpretation Comments Globulin (test code = Globulin) 2.7 2.7-4.2 [facility]2016-09-26 21:25:00 Test Item Value Reference Range Interpretation Comments A/G Ratio (test code = A/G Ratio) 1.3 0.7-1.6 [facility]2016-09-26 21:25:00 Test Item Value Reference Range Interpretation Comments B/C Ratio (test code = B/C Ratio) 30 6-25 [facility] CenterVtfiehlBCFVJBYAHR8165-58-18 21:25:00 Test Item Value Reference Range Interpretation Comments Segs-Bands # (test code = Segs-Bands #) 4.3 1.5-8.1 [facility] CenterTqelrdiURGYAIWWFF5138-39-61 21:25:00 Test Item Value Reference Range Interpretation Comments Monocytes # (test code 0.7 See_Comment [Aut omated message] The = Monocytes #) system which generated this result tra nsmitted reference range : <=0.8. The reference r malinda was not used to int erpret this result as normal/abnormal . [facility] CenterTzrqcwpEYPEZCNFPZ4634-85-33 21:25:00 Test Item Value Reference Range Interpretation Comments Lymphocytes # (test code = Lymphocytes 1.3 1.0-5.5 #) [facility] CenterYityqmzLRRPAAEYMW8037-58-60 21:25:00 Test Item Value Reference Range Interpretation Comments Basophils # (test code 0.1 See_Comment [Aut omated message] The = Basophils #) system which generated this result tra nsmitted reference range : <=0.2. The reference r malinda was not used to int erpret this result as normal/abnormal . [facility] CenterJjhfhknKDNABUVBTP4923-32-25 21:25:00 Test Item Value Reference Range Interpretation Comments Eosinophils # (test code 1.1 See_Comment [A utomated message] The = Eosinophils #) system whic h generated this result tra nsmitted reference range : <=0.5. The reference r malinda was not used to int erpret this result as normal/abnormal . [facility] CenterCxxyyqbCUQTKKOFCM0776-48-97 21:25:00 Test Item Value Reference Range Interpretation Comments Segs (test code = Segs) 57.3 45.0-75.0 [facility] CenterVduogecFDVOTGKEGF2771-79-20 21:25:00 Test Item Value Reference Range Interpretation Comments Lymphocytes (test code = Lymphocytes) 16.9 20.0-40.0 [facility] CenterLuyugmoOXTCHFLMER3231-73-00 21:25:00 Test Item Value Reference Range Interpretation Comments Eosinophils (test code = 14.8 See_Comment [A utomated message] The Eosinophils) system which ge nerated this result tra nsmitted reference range : <=4.0. The reference r malinda was not used to int erpret this result as normal/abnormal . [facility] CenterYefyrdzVBJNWPIEQF0216-01-88 21:25:00 Test Item Value Reference Range Interpretation Comments Basophils (test code = 1.4 See_Comment [Aut omated message] The Basophils) system which ge nerated this result tra nsmitted reference range : <=1.0. The reference r malinda was not used to int erpret this result as normal/abnormal . [facility] CenterZagifebJZWRGRTCSU8948-87-25 21:25:00 Test Item Value Reference Range Interpretation Comments Monocytes (test code = Monocytes) 9.6 2.0-12.0 [facility] CenterZhyzsmnWMZHPVLWKJ2763-80-13 21:25:00 Test Item Value Reference Range Interpretation Comments Ly30 (test code = 8.9 See_Comment [Automate d message] The Ly30) system which ge nerated this result transmit james reference range : <=7.5. The reference range was not used to interpr et this result as mary l/abnormal. [facility] CenterMwmzelrINXQHQTQAL0021-85-38 21:25:00 Test Item Value Reference Range Interpretation Comments G-value (test code = G-value) 13.2 4.5-11.0 [facility] CenterKhzrohuCJAFFVXTWW4860-21-21 21:25:00 Test Item Value Reference Range Interpretation Comments TEG Data (test code = See Note (03/28/16 4:25 TEG Data) PM) [place] [address]-09-26 21:25:00 Test Item Value Reference Range Interpretation Comments Coag Index (test code 4.2 See_Comment [Auto mated message] The = Coag Index) system which g enerated this result transmit james reference range : <=3.0. The reference range was not used to interpr et this result as mary l/abnormal. [place] 266576-09-26 21:25:00 Test Item Value Reference Range Interpretation Comments Angle (test code = Angle) 76.9 degrees 53.0-72.0 [place] 266576-09-26 21:25:00 Test Item Value Reference Range Interpretation Comments R-time (test code = R-time) 3.7 min 5.0-10.0 [place] [address]-09-26 21:25:00 Test Item Value Reference Range Interpretation Comments Max Amp (test code = Max Amp) 72.5 mm 50.0-70.0 [facility] CenterAuambsaVKVYSVEBCQ9142-95-34 21:25:00 Test Item Value Reference Range Interpretation Comments K-time (test code = K-time) 0.8 min 1.0-3.0 [place] 266576-09-26 21:25:00 Test Item Value Reference Range Interpretation [...] DIC with DIC panel may be indicated. CPT:69224 [facility] CenterVnqpqqrDOXJPHWCXO8964-54-22 21:25:00 Test Item Value Reference Range Interpretation Comments Hgb (test code = Hgb) 11.8 12.0-16.0 [facility] HospitalOcrejurNWZYOOMUGO6930-30-48 21:25:00 Test Item Value Reference Range Interpretation Comments Hct (test code = Hct) 35.6 36.0-48.0 [facility] HospitalYjokszvOHJHPITIIU9399-84-42 21:25:00 Test Item Value Reference Range Interpretation Comments MCHC (test code = MCHC) 33.3 32.0-36.0 [facility] HospitalYbdvopfWZTGOVOVSL5758-03-02 21:25:00 Test Item Value Reference Range Interpretation Comments MPV (test code = MPV) 7.6 7.4-10.4 [facility] HospitalUrkxeemSBLOMKCGUT8958-50-51 21:25:00 Test Item Value Reference Range Interpretation Comments RDW (test code = RDW) 13.7 11.5-14.5 [facility] HospitalGmltlvmFEZNALCXXC6252-29-40 21:25:00 Test Item Value Reference Range Interpretation Comments Platelet (test code = Platelet) 298 133-450 [facility] HospitalJhdjwynRQQCYCWCGD4204-11-81 21:25:00 Test Item Value Reference Range Interpretation Comments MCV (test code = MCV) 85.0 80.0-98.0 [facility] HospitalHktjcoxEOHGNWLODA4464-40-22 21:25:00 Test Item Value Reference Range Interpretation Comments MCH (test code = MCH) 28.3 pg 27.0-31.0 [facility] HospitalYaxdeegMQZFHTSFBX7871-95-43 21:25:00 Test Item Value Reference Range Interpretation Comments WBC (test code = WBC) 7.5 3.7-10.4 [facility] HospitalQrgbzbiSXLRCDVWME8549-60-34 21:25:00 Test Item Value Reference Range Interpretation Comments RBC (test code = RBC) 4.18 4.20-5.40 [facility] MNLQQARCR5300-27-46 21:25:00 Test Item Value Reference Range Interpretation Comments Hgb A1C (test code = Hgb A1C) 5.2 [facility] [id number] 21:25:00 Test Item Value Reference Range Interpretation Comments Albumin Lvl (test code = Albumin Lvl) 3.5 3.5-5.0 [facility] [id number] 21:25:00 Test Item Value Reference Range Interpretation Comments ALT (test code = ALT) 28 See_Comment [Auto mated message] The system which ge nerated this result transmit james reference range : <=65. The reference range was not used to interpr et this result as mary l/abnormal. [facility]2016-09-26 21:25:00 Test Item Value Reference Range Interpretation Comments AST (test code = AST) 22 See_Comment [Auto mated message] The system which ge nerated this result transmit james reference range : <=37. The reference range was not used to interpr et this result as mary l/abnormal. [facility]2016-09-26 21:25:00 Test Item Value Reference Range Interpretation Comments Total Protein (test code = Total 6.2 6.4-8.4 Protein) [facility]2016-09-26 21:25:00 Test Item Value Reference Range Interpretation Comments Alk Phos (test code = Alk Phos) 37 39-136 [facility]2016-09-26 21:25:00 Test Item Value Reference Range Interpretation Comments Bili Total (test code = Bili Total) 0.5 0.2-1.3 [place] [id number] 21:25:00 Test Item Value Reference Range Interpretation Comments Globulin (test code = Globulin) 2.7 2.7-4.2 [place] [id number] 21:25:00 Test Item Value Reference Range Interpretation Comments A/G Ratio (test code = A/G Ratio) 1.3 0.7-1.6 [facility]2016-09-26 21:25:00 Test Item Value Reference Range Interpretation Comments B/C Ratio (test code = B/C Ratio) 30 6-25 [facility] CenterXspvzmxHFCJTYVXIA2544-88-83 21:25:00 Test Item Value Reference Range Interpretation Comments Segs-Bands # (test code = Segs-Bands #) 4.3 1.5-8.1 [facility] CenterTkgyniwEVFZLPVSRC9420-28-04 21:25:00 Test Item Value Reference Range Interpretation Comments Monocytes # (test code 0.7 See_Comment [Aut omated message] The = Monocytes #) system which generated this result tra nsmitted reference range : <=0.8. The reference r malinda was not used to int erpret this result as normal/abnormal . [facility] Cent[id number] 21:25:00 Test Item Value Reference Range Interpretation Comments Lymphocytes # (test code = Lymphocytes 1.3 1.0-5.5 #) [facility] Cent[id number] 21:25:00 Test Item Value Reference Range Interpretation Comments Basophils # (test code 0.1 See_Comment [Aut omated message] The = Basophils #) system which generated this result tra nsmitted reference range : <=0.2. The reference r malinda was not used to int erpret this result as normal/abnormal . [facility] CenterSsaoqaqPHHCYSIREQ4817-21-32 21:25:00 Test Item Value Reference Range Interpretation Comments Eosinophils # (test code 1.1 See_Comment [A utomated message] The = Eosinophils #) system whic h generated this result tra nsmitted reference range : <=0.5. The reference r malinda was not used to int erpret this result as normal/abnormal . [facility] CenterMkrqsmrHVMJHBGVOL8869-28-37 21:25:00 Test Item Value Reference Range Interpretation Comments Segs (test code = Segs) 57.3 45.0-75.0 [facility] CenterOkavykbVVYGQPKZKI2378-83-72 21:25:00 Test Item Value Reference Range Interpretation Comments Lymphocytes (test code = Lymphocytes) 16.9 20.0-40.0 [facility] CenterArxkbqiPUKMLVLVHQ0955-07-45 21:25:00 Test Item Value Reference Range Interpretation Comments Eosinophils (test code = 14.8 See_Comment [A utomated message] The Eosinophils) system which ge nerated this result tra nsmitted reference range : <=4.0. The reference r malinda was not used to int erpret this result as normal/abnormal . [facility] CenterR[id number] 21:25:00 Test Item Value Reference Range Interpretation Comments Basophils (test code = 1.4 See_Comment [Aut omated message] The Basophils) system which ge nerated this result tra nsmitted reference range : <=1.0. The reference r malinda was not used to int erpret this result as normal/abnormal . [facility] CenterAhgkdxbIJQGKBGJDG3811-17-17 21:25:00 Test Item Value Reference Range Interpretation Comments Monocytes (test code = Monocytes) 9.6 2.0-12.0 [facility] CenterUeswgboVKROXRVIRN0070-89-98 21:25:00 Test Item Value Reference Range Interpretation Comments Ly30 (test code = 8.9 See_Comment [Automate d message] The Ly30) system which ge nerated this result transmit james reference range : <=7.5. The reference range was not used to interpr et this result as mary l/abnormal. [facility] CenterCknrmzfBYLYWSCNUY2074-65-18 21:25:00 Test Item Value Reference Range Interpretation Comments G-value (test code = G-value) 13.2 4.5-11.0 [facility] CenterVvjbwesYOFWLLBVFT6848-74-93 21:25:00 Test Item Value Reference Range Interpretation Comments TEG Data (test code = See Note (03/28/16 4:25 TEG Data) PM) [facility] CenterUviuppqNNYRGBHKSP7408-21-76 21:25:00 Test Item Value Reference Range Interpretation Comments Coag Index (test code 4.2 See_Comment [Auto mated message] The = Coag Index) system which g enerated this result transmit james reference range : <=3.0. The reference range was not used to interpr et this result as mary l/abnormal. [facility] CenterThjqgdcWMOIYKIZIK7323-03-49 21:25:00 Test Item Value Reference Range Interpretation Comments Angle (test code = Angle) 76.9 degrees 53.0-72.0 [facility] CenterQecaickKHAVVYPHLB5807-22-48 21:25:00 Test Item Value Reference Range Interpretation Comments R-time (test code = R-time) 3.7 min 5.0-10.0 [place] [id number] 21:25:00 Test Item Value Reference Range Interpretation Comments Max Amp (test code = Max Amp) 72.5 mm 50.0-70.0 [facility] CenterAkbmmokDFYKBXMGXE3225-24-76 21:25:00 Test Item Value Reference Range Interpretation Comments K-time (test code = K-time) 0.8 min 1.0-3.0 [facility] CenterJwhwalkJOBUMPZHVL9562-79-05 21:25:00 Test Item Value Reference Range Interpretation [...] DIC with DIC panel may be indicated. CPT:77688 [facility] CenterOdeznxlGJOIBIBDKZ6149-20-29 21:25:00 Test Item Value Reference Range Interpretation Comments Hgb (test code = Hgb) 11.8 12.0-16.0 [facility]KsrzyjeYFHXYHQEZW0556-47-16 21:25:00 Test Item Value Reference Range Interpretation Comments Hct (test code = Hct) 35.6 36.0-48.0 [facility] HospitalMkobuuqEXOZQZTNKQ9627-40-53 21:25:00 Test Item Value Reference Range Interpretation Comments MCHC (test code = MCHC) 33.3 32.0-36.0 [facility] CenterKzunvcwOHSWLPZQFX9579-46-33 21:25:00 Test Item Value Reference Range Interpretation Comments MPV (test code = MPV) 7.6 7.4-10.4 [facility] CenterKdantieGKFOWWUCKC1078-22-16 21:25:00 Test Item Value Reference Range Interpretation Comments RDW (test code = RDW) 13.7 11.5-14.5 [facility] HospitalGdyqnifALZXGYXBPI7326-51-46 21:25:00 Test Item Value Reference Range Interpretation Comments Platelet (test code = Platelet) 298 133-450 [facility] HospitalFzbecknPVNEDZJYRA6238-07-62 21:25:00 Test Item Value Reference Range Interpretation Comments MCV (test code = MCV) 85.0 80.0-98.0 [facility] CenterRrvmzewOIJJPMFWYX8063-17-84 21:25:00 Test Item Value Reference Range Interpretation Comments MCH (test code = MCH) 28.3 pg 27.0-31.0 [facility] HospitalXintxvaUFBLJLCYVL4721-14-36 21:25:00 Test Item Value Reference Range Interpretation Comments WBC (test code = WBC) 7.5 3.7-10.4 [facility] HospitalPkwgqyzMSFYPMMTYK5401-32-08 21:25:00 Test Item Value Reference Range Interpretation Comments RBC (test code = RBC) 4.18 4.20-5.40 [facility]IAL [id number] 21:25:00 Test Item Value Reference Range Interpretation Comments Hgb A1C (test code = Hgb A1C) 5.2 [facility] IRMOY7933-33-74 21:25:00 Test Item Value Reference Range Interpretation Comments Albumin Lvl (test code = Albumin Lvl) 3.5 3.5-5.0 [facility]2016-09-26 21:25:00 Test Item Value Reference Range Interpretation Comments ALT (test code = ALT) 28 See_Comment [Auto mated message] The system which ge nerated this result transmit james reference range : <=65. The reference range was not used to interpr et this result as mary l/abnormal. [facility]2016-09-26 21:25:00 Test Item Value Reference Range Interpretation Comments AST (test code = AST) 22 See_Comment [Auto mated message] The system which ge nerated this result transmit james reference range : <=37. The reference range was not used to interpr et this result as mary l/abnormal. [place] [id number] 21:25:00 Test Item Value Reference Range Interpretation Comments Total Protein (test code = Total 6.2 6.4-8.4 Protein) [facility]2016-09-26 21:25:00 Test Item Value Reference Range Interpretation Comments Alk Phos (test code = Alk Phos) 37 39-136 [facility]2016-09-26 21:25:00 Test Item Value Reference Range Interpretation Comments Bili Total (test code = Bili Total) 0.5 0.2-1.3 [place] [id number] 21:25:00 Test Item Value Reference Range Interpretation Comments Globulin (test code = Globulin) 2.7 2.7-4.2 [place] 453656-09-26 21:25:00 Test Item Value Reference Range Interpretation Comments A/G Ratio (test code = A/G Ratio) 1.3 0.7-1.6 [place] 453656-09-26 21:25:00 Test Item Value Reference Range Interpretation Comments B/C Ratio (test code = B/C Ratio) 30 6-25 [facility] CenterCqrtfbyYHVMXDRPVU9350-44-08 21:25:00 Test Item Value Reference Range Interpretation Comments Segs-Bands # (test code = Segs-Bands #) 4.3 1.5-8.1 [facility] CenterLctooyxCSIRYVXLDO9950-16-82 21:25:00 Test Item Value Reference Range Interpretation Comments Monocytes # (test code 0.7 See_Comment [Aut omated message] The = Monocytes #) system which generated this result tra nsmitted reference range : <=0.8. The reference r malinda was not used to int erpret this result as normal/abnormal . [facility] CenterZgjnubcSMOHVHEPRF8648-86-86 21:25:00 Test Item Value Reference Range Interpretation Comments Lymphocytes # (test code = Lymphocytes 1.3 1.0-5.5 #) [facility] CenterDfnkhzxHLTEYZCDXD7580-95-20 21:25:00 Test Item Value Reference Range Interpretation Comments Basophils # (test code 0.1 See_Comment [Aut omated message] The = Basophils #) system which generated this result tra nsmitted reference range : <=0.2. The reference r malinda was not used to int erpret this result as normal/abnormal . [facility] CenterZnsjidrBXEMVRDVVE4265-49-06 21:25:00 Test Item Value Reference Range Interpretation Comments Eosinophils # (test code 1.1 See_Comment [A utomated message] The = Eosinophils #) system whic h generated this result tra nsmitted reference range : <=0.5. The reference r malinda was not used to int erpret this result as normal/abnormal . [facility] CenterRkacvdsDUVJCAXCHB3210-89-00 21:25:00 Test Item Value Reference Range Interpretation Comments Segs (test code = Segs) 57.3 45.0-75.0 [facility] CenterEzgjjmcRQCPUVZNVN2244-05-71 21:25:00 Test Item Value Reference Range Interpretation Comments Lymphocytes (test code = Lymphocytes) 16.9 20.0-40.0 [facility] CenterTtaxdlxRECCDWGBGX6608-54-20 21:25:00 Test Item Value Reference Range Interpretation Comments Eosinophils (test code = 14.8 See_Comment [A utomated message] The Eosinophils) system which ge nerated this result tra nsmitted reference range : <=4.0. The reference r malinda was not used to int erpret this result as normal/abnormal . [facility] CenterRjfredlABUHXRCWVV2341-39-34 21:25:00 Test Item Value Reference Range Interpretation Comments Basophils (test code = 1.4 See_Comment [Aut omated message] The Basophils) system which ge nerated this result tra nsmitted reference range : <=1.0. The reference r malinda was not used to int erpret this result as normal/abnormal . [facility] CenterAwvdgasUAITQEGMQN6873-00-66 21:25:00 Test Item Value Reference Range Interpretation Comments Monocytes (test code = Monocytes) 9.6 2.0-12.0 [facility] CenterRaujxvqIKLCTDGFZN8127-54-53 21:25:00 Test Item Value Reference Range Interpretation Comments Ly30 (test code = 8.9 See_Comment [Automate d message] The Ly30) system which ge nerated this result transmit james reference range : <=7.5. The reference range was not used to interpr et this result as mary l/abnormal. [facility] CenterEjphevnOCPXCYLPBS5688-64-18 21:25:00 Test Item Value Reference Range Interpretation Comments G-value (test code = G-value) 13.2 4.5-11.0 [facility] CenterMfwftqwOMVGXPTMKC7448-66-57 21:25:00 Test Item Value Reference Range Interpretation Comments TEG Data (test code = See Note (03/28/16 4:25 TEG Data) PM) [facility] CenterZgfidzqRDNRMHACXR7525-68-54 21:25:00 Test Item Value Reference Range Interpretation Comments Coag Index (test code 4.2 See_Comment [Auto mated message] The = Coag Index) system which g enerated this result transmit james reference range : <=3.0. The reference range was not used to interpr et this result as mary l/abnormal. [facility] CenterWmmmgwdNQUWIOBEOY4534-51-57 21:25:00 Test Item Value Reference Range Interpretation Comments Angle (test code = Angle) 76.9 degrees 53.0-72.0 [facility] CenterAzxuorkIGCARADLSV1863-19-48 21:25:00 Test Item Value Reference Range Interpretation Comments R-time (test code = R-time) 3.7 min 5.0-10.0 [facility] CenterBwxxqbkDGKTNARAVI1663-10-73 21:25:00 Test Item Value Reference Range Interpretation Comments Max Amp (test code = Max Amp) 72.5 mm 50.0-70.0 [facility] CenterAucrysfEFBSHYONAT3957-77-78 21:25:00 Test Item Value Reference Range Interpretation Comments K-time (test code = K-time) 0.8 min 1.0-3.0 [facility] CenterVfgpmrwVCDLFDBXCS0713-86-39 21:25:00 Test Item Value Reference Range Interpretation [...] DIC with DIC panel may be indicated. CPT:30990 [facility] CenterVkhkavmOGAHVIVQPG3933-89-78 21:25:00 Test Item Value Reference Range Interpretation Comments Hgb (test code = Hgb) 11.8 12.0-16.0 [facility] CenterCsgbsvnXEHZFMNELU3072-94-86 21:25:00 Test Item Value Reference Range Interpretation Comments Hct (test code = Hct) 35.6 36.0-48.0 [facility] CenterJzgigjsIIFQSLAYOB5317-59-84 21:25:00 Test Item Value Reference Range Interpretation Comments MCHC (test code = MCHC) 33.3 32.0-36.0 [facility] CenterJmotkxsFLKVDPDXRG4248-40-37 21:25:00 Test Item Value Reference Range Interpretation Comments MPV (test code = MPV) 7.6 7.4-10.4 [facility] CenterLjaizsaBMENKDZXNV5084-70-24 21:25:00 Test Item Value Reference Range Interpretation Comments RDW (test code = RDW) 13.7 11.5-14.5 [facility] CenterTrnuysyISVBMYYIID7031-45-69 21:25:00 Test Item Value Reference Range Interpretation Comments Platelet (test code = Platelet) 298 133-450 [facility] CenterBmvgpujZQIWXFAEMH4382-49-35 21:25:00 Test Item Value Reference Range Interpretation Comments MCV (test code = MCV) 85.0 80.0-98.0 [facility] CenterQhjibaiRJYRQIGYPQ3576-99-62 21:25:00 Test Item Value Reference Range Interpretation Comments MCH (test code = MCH) 28.3 pg 27.0-31.0 [facility] CenterYfumkksWGBXLSTAFM5989-80-78 21:25:00 Test Item Value Reference Range Interpretation Comments WBC (test code = WBC) 7.5 3.7-10.4 [facility] CenterDpyrqxmNEGNPAMUES4519-80-09 21:25:00 Test Item Value Reference Range Interpretation Comments RBC (test code = RBC) 4.18 4.20-5.40 [facility] ZTPSYPXWA1327-88-85 21:25:00 Test Item Value Reference Range Interpretation Comments Hgb A1C (test code = Hgb A1C) 5.2 [facility]
[2022-08-22 13:53] LABS: Urine Blood Negative (Negative); Urine Glucose Negative (Negative); Urine Protein Negative (Negative); Urine Specific Gravity <=1.005 (1.005-1.030); Urine pH 5.5 (5.0-7.0)
[2022-08-22 14:14] LABS: Urine Bacteria None Seen /HPF (<20); Urine Crystals Unidentified Few /HPF (None Seen); Urine Mucus Slight /HPF (None Seen); Urine RBC <5 /HPF (None Seen)
[2022-08-22 14:42] LABS: Absolute Lymphocytes (CBC) 1.2 K/uL (0.7-4.9); Hematocrit 35.9 % (36.0-45.0); Lymphocytes % 10.1 % (15.3-44.8); MCV 88.2 fL (80-100); MPV 7.2 fL (7.6-11.3); RBC Red Blood Cell Count 4.08 M/uL (3.86-4.86)
[2022-08-22 14:45] LABS: Potassium 4.2 mmol/L (3.5-5.1)
--- NOTE | 2022-08-22 15:38 | EDPHYS ---
Physician Documentation [facility] Name: Little Stafford Age: 77 yrs Sex: Female : 1945 Arrival Date: 08/22/2022 Time: 13:09 Bed 2 Private MD: ED Physician Jose Elias Roe HPI: 08/22 15:18 This 77 yrs old Female presents to ER via EMS with complaints of Urinary Retention. rn 15:18 The patient presents with urinary symptoms, urinary retention. Onset: The rn symptoms/episode began/occurred 2 day(s) ago. Modifying factors: The symptoms are alleviated by nothing, the symptoms are aggravated by nothing. Associated signs and symptoms: Pertinent negatives: fever, hematuria, urinary frequency. Severity of symptoms: At their worst the symptoms were moderate, in the emergency department the symptoms are unchanged. The patient has not experienced similar symptoms in the past. The patient has been recently seen by a physician:. Pt reports 3 days of inability to urinate and empty completely. Recent admitted for diarrhea but denies bueno catheter placement. No fever. Called her pcp who told her to call a urologist who told her to come to ER. Pt states she believes is "mental". . Historical: - Allergies: 13:11 NKDA; bp - Home Meds: 13:11 Albuterol Inhl [Active]; atorvastatin 20 mg Oral tab 1 tab once daily [Active]; bp carvedilol 3.125 mg Oral tab 1 tab 2 times per day for Hypertension [Active]; dilaudid 2mg 4 times daily [Active]; Eliquis Oral [Active]; folic acid 1 mg Oral tab 1 tab twice a day [Active]; furosemide 40 mg Oral tab 1 tab 2 times per day [Active]; gabapentin 600 mg Oral tab 1 tab 4 times daily [Active]; losartan-hydrochlorothiazide 50-12.5 mg Oral tab 1 tab once daily [Active]; pantoprazole 40 mg Oral TbEC 1 tab once daily [Active]; potassium chloride 20 mEq Oral TbTQ 1 tab 2 times per day [Active]; Requip 1 mg Oral tab 1 tab 6 times a day [Active]; spironolactone 25 mg Oral tab 1 tab once daily [Active]; trazodone 150 mg Oral tab 1 tab nightly [Active]; - PMHx: 13:11 CHF; Chronic pain; Depression; DVT Left leg; GERD; Gout; High Cholesterol; bp Hyperlipidemia; Hypertension; restless leg syndrome; - Immunization history:: Adult Immunizations up to date. - Social history:: Smoking status: Patient denies any tobacco usage or history of. - Family history:: not pertinent. - Hospitalizations: : No recent hospitalization is reported. ROS: 15:18 Constitutional: Negative for fever, chills, and weight loss, Eyes: Negative for injury, rn pain, redness, and discharge, Cardiovascular: Negative for chest pain, palpitations, and edema, Respiratory: Negative for shortness of breath, cough, wheezing, and pleuritic chest pain, Abdomen/GI: Negative for abdominal pain, nausea, vomiting, diarrhea, and constipation, Back: Negative for injury and pain, : + urinary retention MS/Extremity: Negative for injury and deformity, Skin: Negative for injury, rash, and discoloration, Neuro: Negative for headache, weakness, numbness, tingling, and seizure. Exam: 15:18 Constitutional: This is a well developed, well nourished patient who is awake, alert, rn appears uncomfortable Head/Face: Normocephalic, atraumatic. ENT: dry MM Cardiovascular: Regular rate and rhythm. No pulse deficits. Respiratory: No increased work of breathing, no retractions or nasal flaring. Abdomen/GI: soft, + suprapubic tenderness, no rebound, no peritoneal signs Skin: Warm, dry MS/ Extremity: Pulses equal, no cyanosis. Neuro: Awake and alert, GCS 15 Vital Signs: 13:09 BP 136 / 77; Pulse 80; Resp 18; Temp 98; Pulse Ox 93% on R/A; bp 13:54 BP 102 / 69; Pulse 84; Resp 18; Pulse Ox 97% on R/A; ld1 14:16 BP 96 / 61; Pulse 82; Resp 18; Pulse Ox 97% on R/A; ld1 15:17 BP 89 / 67; Pulse 74; Resp 18; Pulse Ox 96% on R/A; ld1 17:02 BP 89 / 63; Pulse 84; Resp 18; Pulse Ox 99% on R/A; ld1 17:32 BP 105 / 79; Pulse 92; Resp 18; Pulse Ox 96% on R/A; ld1 MDM: 13:10 Patient medically screened. rn 15:31 Differential diagnosis: urinary tract infection, urinary retention, dehydration, renal rn failure. 15:33 Data reviewed: vital signs, nurses notes, lab test result(s), and as a result, I will rn pool patient. Care significantly affected by the following chronic conditions: Hypertension, Congestive Heart Failure, chronic pain. Counseling: I had a detailed discussion with the patient and/or guardian regarding: the historical points, exam findings, and any diagnostic results supporting the discharge/admit diagnosis, lab results, the need for outpatient follow up, to return to the emergency department if symptoms worsen or persist or if there are any questions or concerns that arise at home. Response to treatment: the patient's symptoms have markedly improved after treatment, and as a result, I will discharge patient. Special discussion: I discussed with the patient/guardian in detail that at this point there is no indication for admission to the hospital. It is understood, however, that if the symptoms persist or worsen the patient needs to return immediately for re-evaluation. Based on the history and exam findings, there is no indication for further emergent testing or inpatient evaluation. I discussed with the patient/guardian the need to see the urologist for further evaluation of the symptoms. ED course: Pt with > 600 ml in bladder and couldn't urinate, placed bueno with immediate improvement of pain and discomfort. Labs neg for acute kidney failure, patient feels much better, will dc home with return precautions, will f/u with Dr. Gimenez who sees her . Will give small fluid bolus for dehydration and borderline BP. Pt on multiple diuretics and overall feels much better. . 08/22 13:27 Order name: CBC with Diff rn 08/22 13:27 Order name: Basic Metabolic Panel rn 08/22 13:27 Order name: Urine Culture rn 08/22 13:27 Order name: Urine Microscopic Only rn 08/22 13:53 Order name: Urine Dipstick-Ancillary; Complete Time: 15:17 EDMO 08/22 14:14 Order name: Urine Microscopic Only; Complete Time: 15:17 EDMO 08/22 13:27 Order name: IV Start; Complete Time: 14:16 rn 08/22 13:27 Order name: Bladder Scanner; Complete Time: 13:53 rn 08/22 13:27 Order name: Urine Dipstick-Ancillary (obtain specimen); Complete Time: 13:53 rn 08/22 14:45 Order name: Basic Metabolic Panel; Complete Time: 15:17 EDMS 08/22 14:49 Order name: CBC with Automated Diff; Complete Time: 15:17 EDMS Administered Medications: 15:18 Not Given (Duplicate Order): NS 0.9% 1000 ml IV at 1000 ml once rn 15:41 Drug: NS 0.9% 500 ml Route: IV; Rate: bolus; Site: right antecubital; ld1 Disposition Summary: 08/22/22 15:37 Discharge Ordered Location: Home rn Problem: new rn Symptoms: have improved rn Condition: Stable rn Diagnosis - Retention of urine, unspecified rn - Dehydration rn Followup: rn - With: Burke Gimenez MD - When: As needed - Reason: Recheck today's complaints, Re-evaluation by your physician Discharge Instructions: - Discharge Summary Sheet rn - Dehydration, Adult rn - Indwelling Urinary Catheter Care, Adult rn - Acute Urinary Retention, Female rn Forms: - Medication Reconciliation Form rn - Thank You Letter rn - Antibiotic pattern grader cutter - Prescription Opioid Use rn Signatures: Dispatcher [employer] EDJose Elias Mortensen MD MD rn Peltier, Brian, RN RN bp Dibbern, Lauren RN RN ld1
--- NOTE | 2022-08-22 15:38 | ER ---
Nurse's Notes [facility] Name: Little Stafford Age: 77 yrs Sex: Female : 1945 Arrival Date: 08/22/2022 Time: 13:09 Bed 2 Private MD: Diagnosis: Retention of urine, unspecified;Dehydration Presentation: 08/22 13:09 Chief complaint: EMS states: D/C 3 DAYS AGO AFTER DX WITH DIARRHEA, NOW C/O 3 DAYS bp URINARY RETENTION. Coronavirus screen: At this time, the client does not indicate any symptoms associated with coronavirus-19. Ebola Screen: No symptoms or risks identified at this time. Initial Sepsis Screen: Does the patient meet any 2 criteria? No. Patient's initial sepsis screen is negative. Does the patient have a suspected source of infection? No. Patient's initial sepsis screen is negative. Risk Assessment: Do you want to hurt yourself or someone else? Patient reports no desire to harm self or others. Onset of symptoms is unknown. 13:09 Method Of Arrival: EMS: [facility] bp 13:09 Acuity: KELLEY 3 bp Triage Assessment: 13:11 General: Appears distressed, obese, Behavior is cooperative, appropriate for age, bp anxious. Pain: Complains of pain in right hip. EENT: No deficits noted. Neuro: No deficits noted. Cardiovascular: No deficits noted. Respiratory: No deficits noted. GI: No signs and/or symptoms were reported involving the gastrointestinal system. : No signs and/or symptoms were reported regarding the genitourinary system. Derm: No deficits noted. Musculoskeletal: No deficits noted. Historical: - Allergies: 13:11 NKDA; bp - Home Meds: 13:11 Albuterol Inhl [Active]; atorvastatin 20 mg Oral tab 1 tab once daily [Active]; bp carvedilol 3.125 mg Oral tab 1 tab 2 times per day for Hypertension [Active]; dilaudid 2mg 4 times daily [Active]; Eliquis Oral [Active]; folic acid 1 mg Oral tab 1 tab twice a day [Active]; furosemide 40 mg Oral tab 1 tab 2 times per day [Active]; gabapentin 600 mg Oral tab 1 tab 4 times daily [Active]; losartan-hydrochlorothiazide 50-12.5 mg Oral tab 1 tab once daily [Active]; pantoprazole 40 mg Oral TbEC 1 tab once daily [Active]; potassium chloride 20 mEq Oral TbTQ 1 tab 2 times per day [Active]; Requip 1 mg Oral tab 1 tab 6 times a day [Active]; spironolactone 25 mg Oral tab 1 tab once daily [Active]; trazodone 150 mg Oral tab 1 tab nightly [Active]; - PMHx: 13:11 CHF; Chronic pain; Depression; DVT Left leg; GERD; Gout; High Cholesterol; bp Hyperlipidemia; Hypertension; restless leg syndrome; - Immunization history:: Adult Immunizations up to date. - Social history:: Smoking status: Patient denies any tobacco usage or history of. - Family history:: not pertinent. - Hospitalizations: : No recent hospitalization is reported. Screenin:13 [facility] ED Fall Risk Assessment (Adult) History of falling in the last 3 months, bp including since admission No falls in past 3 months (0 pts). Abuse screen: Denies threats or abuse. Denies injuries from another. Nutritional screening: No deficits noted. Tuberculosis screening: No symptoms or risk factors identified. Assessment: 13:13 General: SEE TRIAGE NOTE. bp 13:53 Reassessment: Bladder scanner - 611ml. ld1 15:57 Reassessment: DC ON HOLD FOR IVF COMPLETION. bp 16:54 Reassessment: called EMS for transportation back home ETA [id number]. ss 17:02 Reassessment: Patient appears in no apparent distress at this time. Patient and/or ld1 family updated on plan of care and expected duration. Pain level reassessed. Patient is alert, oriented x 3, equal unlabored respirations, skin warm/dry/pink. 17:02 Reassessment: Waiting on EMS to transport patient home. ld1 Vital Signs: 13:09 BP 136 / 77; Pulse 80; Resp 18; Temp 98; Pulse Ox 93% on R/A; bp 13:54 BP 102 / 69; Pulse 84; Resp 18; Pulse Ox 97% on R/A; ld1 14:16 BP 96 / 61; Pulse 82; Resp 18; Pulse Ox 97% on R/A; ld1 15:17 BP 89 / 67; Pulse 74; Resp 18; Pulse Ox 96% on R/A; ld1 17:02 BP 89 / 63; Pulse 84; Resp 18; Pulse Ox 99% on R/A; ld1 17:32 BP 105 / 79; Pulse 92; Resp 18; Pulse Ox 96% on R/A; ld1 ED Course: 13:09 Patient arrived in ED. bp 13:10 Jose Elias Roe MD is Attending Physician. rn 13:10 Triage completed. bp 13:11 Arm band placed on. bp 13:13 Patient has correct armband on for positive identification. Bed in low position. Call bp light in reach. Side rails up X2. 13:14 Mauricio Garcia, RN is Primary Nurse. bp 13:53 Urine Microscopic Only Sent. ld1 13:53 Urine Culture Sent. ld1 13:53 [place]bando cath inserted, using sterile technique, [address], balloon inflated, to ld1 gravity drainage, urine specimen collected. returned clear yellow urine. 14:16 Inserted saline lock: 22 gauge in right forearm, using aseptic technique. Blood ld1 collected. 15:37 Burke Gimenez MD is Referral Physician. rn Administered Medications: 15:18 Not Given (Duplicate Order): NS 0.9% 1000 ml IV at 1000 ml once rn 15:41 Drug: NS 0.9% 500 ml Route: IV; Rate: bolus; Site: right antecubital; ld1 Medication: 13:13 VIS not applicable for this client. bp Output: 14:48 Urine: 1200ml ([place]o); Total: 1200ml. bp Outcome: 15:37 Discharge ordered by . rn 17:56 Patient left the ED. ss Signatures: Jose Elias Roe MD MD rn Smirch, Shelby, RN RN Mauricio Garcia, NATASHA RN Juliana Arana RN RN ld1
[2022-08-22] MEDS ORDERED: NA CHLORIDE 0.9% 500 ML ONE (15:43)
[2022-08-22 19:16] VITALS: TEMP 98
[2022-08-22 19:22] VITALS: BP 105/79; O2SAT 96
== END 2022-08-22 17:56 | disposition home or self-care (01) ==
LOC: ER 12:54
DX: R33.9 Retention of urine, unspecified (principal); E86.0 Dehydration; I10 Essential (primary) hypertension; I50.9 Heart failure, unspecified; E78.5 Hyperlipidemia, unspecified; Z86.718 Personal history of other venous thrombosis and embolism; Z79.01 Long term (current) use of anticoagulants
CPT/HCPCS: 87088; 85025; 87086; 80048; 36415; 51702; 99284; J7040; 81003; 81015

== ENCOUNTER 2022-08-29 14:40 | Inpatient (IN) | payer OTHER ==
[2022-08-29] MEDS ORDERED: NA CHLORIDE 0.9% 1,000 ML ONE (14:57)
[2022-08-29 15:11] LABS: Hematocrit 32.5 % (36.0-45.0); Lymphocytes % 7.1 % (15.3-44.8); MCV 86.9 fL (80-100); MPV 6.6 fL (7.6-11.3); RBC Red Blood Cell Count 3.74 M/uL (3.86-4.86)
[2022-08-29 15:12] LABS: Protime INR 1.43
[2022-08-29 15:28] LABS: Urine Blood 2+ (Negative); Urine Glucose Negative (Negative); Urine Protein Negative (Negative); Urine Specific Gravity 1.015 (1.005-1.030)
[2022-08-29 15:35] LABS: Albumin 2.3 g/dL (3.4-5.0); Bilirubin Direct 0.1 mg/dL (0-0.2); Bilirubin Total 0.3 mg/dL (0.2-1.0); Magnesium 2.1 mg/dL (1.6-2.4); Potassium 3.8 mmol/L (3.5-5.1); Protein, Total 7.1 g/dL (6.4-8.2); Troponin High Sensitivity 11.2 pg/mL (<58.9)
--- NOTE | 2022-08-29 15:39 | RAD REPORT ---
EXAM DESCRIPTION: CT - Head Brain Wo Cont - 08/29/2022 3:12 pm CLINICAL HISTORY: Dizziness COMPARISON: <Comparisons> TECHNIQUE: Noncontrast head CT images ad were obtained without IV contrast. Multiplanar reformats we re generated and reviewed. All CT scans are performed using dose optimization technique as appropriate and may include automated exposure control or mA/KV adjustment according to patient size. FINDINGS: No intracranial hemorrhage, mass, or edema. Midline structures are unremarkable. Normal ventricular caliber for age. Chapman-white matter differentiation is preserved, without evidence of acute infarct. No abnormal extra- axial fluid collections. Patchy periventricular and deep white matter hypoattenuation most pronounc ed in the left frontal lobe, nonspecific but suggestive of chronic small vessel ischemic changes. The pattern is stable. Mastoid air cells and visualized portions of the paranasal sinuses are clear. No acute bony findings. IMPRESSION: No evidence of an acute intracranial process. Stable presumed sequelae of chronic small vessel ischemic changes.
--- OUTSIDE RECORDS SUMMARY | 2022-08-29 15:52 | XMS REPORT | Continuity of Care Document ---
:1945 Author Organization [facility] t Address [address] [place] [address] [place] [id number] Care Team Providers Name Role Phone Ingris Pachecoharika Benites Primary Care Physician Ingris Pachecoharika Benites Attending Clinician Unavailable LAYLA BIANCHI Attending Clinician Unavailable Gavi_Chandler Attending Clinician Unavailable Layla Bianchi MD Attending Clinician Doctor Unassigned, [place] Attending Clinician Unavailable Shaan MONDRAGON Attending Clinician [...] Date Expiration Date S ros AETNA MANAGED [id number] 2020 MEDICARE 00:00:00 PPO-ANDREA AETNA MEDICARE 53 [id number] 2013 [facility] 00:00[facility]00 - [facility] MEDICARE MB [id number] 2009 [facility] NOVITAS 00:00:00 - [facility] MEDICARE MB [id number] 2009 [facility] NOVITAS 00:00:00 - [facility] MEDICARE MB [id number] 2009 [facility] NOVITAS 00:00:00 - [facility] MEDICARE MB [id number] 2009 [facility] NOVITAS 00:00:00 - [facility] MEDICARE MB [id number] 2009 [facility] NOVITAS 00:00:00 - [facility] MEDICARE MB [id number] 2009 [facility] NOVITAS 00:00:00 - [facility] MEDICARE MB [id number] 2009 [facility] NOVITAS 00:00:00 - [facility] MEDICARE MB [id number] 2009 [facility] NOVITAS 00:00:00 - [facility] MEDICARE MB [id number] 2009 [facility] NOVITAS 00:00:00 - [facility] MEDICARE MB [id number] 2009 [facility] NOVITAS 00:00:00 - [facility] MEDICARE MB [id number] 2009 [facility] NOVITAS 00:00:00 - [facility] MEDICARE MB [id number] 2009 [facility] NOVITAS 00:00:00 - [facility] MEDICARE MB [id number] 2009 [facility] NOVITAS 00:00:00 - [facility] AETNA MEDICARE C1 [id number] 2017 [facility] 00:00:00 - [id number] 00:00:00 - [facility] AETNA MEDICARE C1 [id number] 2017 [facility] 00:00:00 - [facility] AET MEDICARE [id number] 00:00:00 - [facility] Problems Condition Condition Condition Status Onset Resolution [...] 18:00:00 l Active 00:00: [place] 03/18/2016 00 [facility] Essential Essential Disease Active 2014-07 Uni vers hypertensi hypertensi 2-18 it y of on on 00:00: [address] Branch Hyperlipid Hyperlipid Disease Active 2014-07 U nivers emia emia 2-18 ity of 00:00: [address] Branch Sleep Sleep Disease Active 2014-07 Univers apnea apnea 2-18 ity of 00:00: [address] Branch Osteoarthr Osteoarthr Disease Active 2014-07 U nivers itis of itis of 2-18 ity of both knees [place] [facility] [place] Mixed Mixed Problem Common incontinen incontinen Sp cari ce ce - CHI [facility] 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 - CHI athies [facility] Primary Primary Problem Common generalise generalize Sp cari d d - CHI osteoarthr (osteo)[facility] Accelerate Accelerate Problem C ommon d d Spirit essential essential - CH I hypertensi hypertensi St on on [facility] 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 - [facility] [id number] Chronic Problem Comm on deep vein Spirit thrombosis - CHI (DVT) of St left lower [facility] extremity, Medica l unspecifie Center d vein [id number] Acute gout Problem Co mmon involving Spirit toe of - CHI left foot, St unspecifie [facility] d [facility] History of Personal Problem Com mon thromboemb history of Sp cari olism of other - CHI vein venous thrombosis [facility] and Medical embolism Center Hypokalemi Hypokalemi Problem C erika a a Spirit - [facility] Nicotine Personal Problem Commo n dependence history of Sp cari nicotine - CHI dependence [facility] Family Family Problem Common history of history of Sp cari ischemic ischemic - CHI heart heart St disease disease [facility] and other Medical diseases Center of the yeast culture developer y system [id number] Bilateral Problem Com mon carotid Spirit artery - CHI stenosis [facility] [id number] Stenosis Problem Com mon of left Spirit carotid - CHI artery [facility] [id number] Chronic Problem Comm on heart Spirit failure - CHI with St preserved [facility] ejection Medical fraction Center Acute Acute Problem Common drug-induc drug-induc Sp cari ed gout of ed gout of - CHI foot, foot, St unspecifie unspecifie Bibi kes d d Medical laterality laterality Ce nter [id number] 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 - [facility] Restless Restless Problem Commo n legs leg Spirit syndrome syndrome - [facility] Peripheral Venous Problem Commo n venous insufficie Spirit insufficie ncy - CHI ncy [facility] Congestive CHF Problem Commo n heart (congestiv Spirit failure e heart - CHI failure) [facility] Obstructiv Obstructiv Problem C ommon e sleep e sleep Spirit apnea apnea - [facility] Benign Benign Problem Common essential essential Spir it hypertensi hypertensi - CHI on on [facility] Chronic Chronic Problem Common kidney kidney Spirit disease disease, - CHI unspecifie [facility] Morbid Morbid Problem Common obesity obesity Spirit - [facility] Cervicalgi Cervicalgi Problem C ommon a a Spirit - [facility] [id number] Alcohol Problem Commo n dependence Spirit in - CHI remission [facility] [id number] Iron Problem Common deficiency Spirit anemia, - CHI unspecifie [facility] deficiency Medica l anemia Center type [id number] Other Problem Common specified Spirit postproced - CHI ural [facility] Spinal Spinal Problem Common stenosis stenosis Spirit in of - CHI cervical cervical St region region [facility] High risk MCFP Problem Com mon drug current Spirit monitoring use of - CHI status opiate [facility]I 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 - CHI disease [facility] History of Bariatric Problem Co mmon bariatric surgery Spirit surgical status - CHI procedure [facility] Presence Presence Problem Commo n of of right Spirit orthopedic artificial - CHI joint shoulder St implant joint [facility] Artificial Presence Problem Com mon knee joint of right Spir it present artificial - CHI knee joint [facility] History of History of Problem C ommon fall falling Spirit - CHI [facility] Urogenital Presence Problem Com mon implant of Spirit urogenital - CHI implants [facility] [id number] Acquired Problem Commo n absence of Spirit other - CHI specified parts of [facility] digestive Medical tract Center Hysterecto Acquired Problem Com mon my absence of Spirit both - CHI cervix and uterus [facility] Hypertensi Hypertensi Problem C ommon ve heart ve heart Spirit AND and - CHI chronic chronic kidney kidney [facility] disease disease Medical with with heart Center congestive failure heart and stage failure 1 through stage 4 chronic kidney disease, or chronic kidney disease Major Major Problem Common depressive depressive Sp cari disorder disorder - [facility] Long-term MCFP Problem Com mon current current Spirit use of use of - CHI anticoagul anticoagul ant [facility] Gastro-eso Gastro-eso Problem C ommon phageal phageal Spirit reflux reflux - CHI disease disease St without without [facility] esophagiti esophagiti Md dical s s [place] Family Family Problem Common history of history of Sp cari cancer malignant - [facility] neoplasm, unspecifie [facility] Family Family Problem Common history of history of Sp cari mental other - CHI disorder mental and behavioral [facility] disorders [facility] Walking Difficulty Problem Comm on disability in Spirit walking, - CHI not St elsewhere [facility] classified Medica l [place] [id number] Body mass Problem Com mon index Spirit (BMI) - CHI 40.0-44.9, adult [facility] Spasm Other Problem Common muscle Spirit spasm - [facility] Depressive Depressiv Problem Active 2016-07-08 Memoria disorder e disorder 04:40:14 l (disorder) (disorder) He rmann Active Problem 07/08/2016 [facility] OPIMeera Mccabe Eczema Eczema Problem Active 2016-07-08 Manjinder nasir (disorder) (disorder) 04:40:14 l Active [place] Problem 07/08/2016 [facility] MAICOL Mccabe Hypertensi Hypertens Problem Active 2016-07-08 Memoria ve willard 04:40:14 l disorder, disorder, Herm jesse systemic systemic arterial arterial (disorder) (disorder) Active Problem 07/08/2016 [facility] MAICOL Mccabe Impairment Impairmen Problem Active 2016-07-08 Memoria of balance t of 04:40:14 l (finding) balance Omer n (finding) Active Problem 07/08/2016 [facility] OPID [place] Obesity Obesity Problem Active 2016-07-08 Me moria (disorder) (disorder) 04:40:14 l Active Donnellson Problem 07/08/2016 [facility] OPID [place] Pain Pain Problem Active 2016-07-08 Memor ia (finding) (finding) 04:40:14 l Active Donnellson Problem 07/08/2016 [facility] OPID [place] SPINAL SPINAL Diagnosis Active 2016-04-04 Me moria STENOSIS, STENOSIS, 18:00:00 l CERVICAL CERVICAL Omer n REGION REGION Active [facility] CERVICAL CERVICAL Diagnosis Active 2016-04-04 Memoria DISC DISC 18:00:00 l DISORDER DISORDER Omer n WITH WITH MYELOPATHY MYELOPATHY , , Active [facility] Allergies, Adverse Reactions, Alerts Allergy Allergy Status Severity Reaction(s) Onset Inactive Treating Comm ents Source Name Type Date Date Clinician codeine DA Active SV [facility] 3-10 Clear 00:00: [place] 00 [facility] codeine DA Active SV EXTREME 0 [facility] NAUSEA AND 3-10 Clear ITCHING 00:00: [place] 00 [facility] METOLAZO DRUG Active Unknown-Cmnt 2020-0 Un bautista NE INGREDI 3-31 ity of 00:00: [place] 00 Medical Branch Metolazo Propensi Active Unknown - 2019-0 gout Uni vers ne ty to See comments 3-31 ity of adverse 00:00: [place] reaction 00 Medical s Branch codeine DA Active SV EXTREME 2018-07 [facility] NAUSEA 0-10 [place] 00:00: [facility] l codeine DA Active SV 2018-07 [facility] 0-10 [...] Active nausea, Common vomiting Spirit - [facility] Social History Social Habit Start Date Stop Date Quantity Comments Source History of Tobacco [facility] - Use [facility] Sex Assigned At [facility] cari - [facility] Exposure to 2022-05-20 2022-05-30 Not sure University of SARS-CoV-2 (event) 00:00:00 15:08:00 [facility] Alcohol intake 2022-05-17 2022-05-17 Current University of 00:00:00 00:00:00 non-drinker of [facility] alcohol Branch (finding) Tobacco use and 2021-08-30 2021-08-30 Smokeless Universit y of exposure 00:00:00 00:00:00 tobacco non-user [facility] dical Branch Cigarettes smoked 2021-08-30 2021-08-30 Univers ity of current (pack per 00:00:00 00:00:00 [facility] ) - Reported Branch Cigarette 2021-08-30 2021-08-30 University of pack-years 00:00:00 00:00:00 [facility] Smoking Status Start Date Stop Date Source Social History 2016-07-05 21:40:59 2016-07-05 21:40:59 [facility] Medications Ordered Filled Start Stop Current Ordering Indication Dosage Frequency Signature Comments Components Source Medication Medication Date Date Medication? Clinician (SIG) Name Name HYDROcodone HYDROcodone No 1{table HYDROcodon -Acetaminop -Acetaminop 08-02 t_as_ne e-Acetamin hen 7.5-325 hen 7.5-325 00:00: eded} ophen MG MG 00 7.5-325 MG spironolact Yes [id number] 25mg Take 1 Univers one 25 mg 07-11 tablet by ity o f tablet 00:00: mouth in [place] 00 the Medical morning. [place] ketoconazol 2021-07 Yes Apply to Un bautista e 2 % cream 1-28 area(s) ity o f 15:38: daily. [address] clobetasoL 2021-07 Yes Apply to Uni vers 0.05 % -28 area(s). ity of ointment 15:38: [address] ketoconazol 2021-07 Yes Apply to Un bautista e 2 % cream -28 area(s) ity o f 15:38: daily. [address] clobetasoL 2021-07 Yes Apply to Uni vers 0.05 % 07-30 area(s). ity of ointment 15:38: [address] ketoconazol 2021-07 Yes Apply to Un bautista e 2 % cream 07-30 area(s) ity o f 15:38: daily. [address] clobetasoL 2021-07 Yes Apply to Uni vers 0.05 % 07-30 area(s). ity of ointment 15:38: [address] empaglifloz 2021-07 Yes [id number] 10mg Take 1 Univers in 10 mg 07-30 02 tablet by ity of 00:00: mouth in [place] the Medical morning. [place] empaglifloz 2021-07 Yes [id number] 10mg Take 1 Univers in 10 mg 07-30 02 tablet by ity of 00:00: mouth in [place] the morning. [place] empaglifloz 2021-07 Yes [id number] 10mg Take 1 Univers in 10 mg 07-30 tablet by ity of 00:00: mouth in [place] the morning. [place] sulfamethox 2021-07 Yes 1{tbl} 1 tablet, Univers [...] ity of 1,000 mg in 01:30: 02:38 [place], [place] NaCl 0.9% 00 :00 ONCE, 1 Medical (NS) 50 mL dose, On Branc h MINI-BAG 05/17/22 at 1930, Administer over 30 Minutes, 50 mL
Reas on for Anti-Infec tive: Documented Infection< br>Documen james Infection Site: Skin / Soft Tissue
Duration of Therapy: Other (see Comments) sulfamethox 2021-07 Yes [id number] 1{tbl} Take 1 Univers azole-trime 1-15 [id number] tablet by i ty of thoprim 00:00: mouth [place] 800-160 mg 00 every 12 Medic al per tablet (twelve) Branc h hours. sulfamethox 2021-07 Yes [id number] 1{tbl} Take 1 Univers azole-trime 1-15 [id number] tablet by i ty of thoprim 00:00: mouth [place] 800-160 mg 00 every 12 Medic al per tablet (twelve) Branc h hours. sulfamethox 2021-07 Yes [id number] 1{tbl} Take 1 Univers azole-trime 1-15 [id number] tablet by i ty of thoprim 00:00: mouth [place] 800-160 mg 00 every 12 Medic al per tablet (twelve) Branc h hours. sulfamethox 2021-07 Yes [id number] 1{tbl} Take 1 Univers azole-trime 1-15 [id number] tablet by i ty of thoprim 00:00: mouth [place] 800-160 mg 00 every 12 Medic al per tablet (twelve) Branc h hours. sulfamethox 2021-07 Yes [id number] 1{tbl} Take 1 Univers azole-trime 1-15 [id number] tablet by i ty of thoprim 00:00: mouth [place] 800-160 mg 00 every 12 Medic al per tablet (twelve) Branc h hours. cephALEXin 2021-07- No [id number] 500mg Take 1 Univers (KEFLEX) 07-17 [id number] capsule by it y of 500 mg 00:00: 05:59 mouth in [place] capsule 00 :00 the Medical morning Branch and 1 capsule at noon and 1 capsule in the evening. Do all this for 10 days. spironolact 2021-07 Yes [id number] 25mg Take 1 Univers one 25 mg 0-11 tablet by ity o f tablet 00:00: mouth in [place] 00 the Medical morning. Branch spironolact 2021-07 Yes [id number] 25mg Take 1 Univers one 25 mg 0-11 tablet by ity o f tablet 00:00: mouth in [place] 00 the Medical morning. Branch spironolact 2021-07 Yes [id number] 25mg Take 1 Univers one 25 mg 0-11 tablet by ity o f tablet 00:00: mouth in [place] 00 the Medical morning. Branch spironolact 2021-07 Yes [id number] 25mg Take 1 Univers one 25 mg 0-11 tablet by ity o f tablet 00:00: mouth in [place] 00 the Medical morning. Branch spironolact 2021-07 Yes [id number] 25mg Take 1 Univers one 25 mg 0-11 tablet by ity o f tablet 00:00: mouth in [place] 00 the Medical morning. Branch spironolact 2021-073- No [id number] 25mg Take 1 Univers one 25 mg 0-11 -09 tablet by ity of tablet 00:00: 00:00 mouth in [place] 00 :00 the Medical morning. Branch KCL 20 mEq 2-0 Yes 20meq Take 1 Univ ers tablet 8-22 tablet by ity of 00:00: mouth in [place] 00 the Medical morning Branch and 1 tablet in the evening. KCL 20 mEq 2022-0 Yes 20meq Take 1 Univ ers tablet 8-22 tablet by ity of 00:00: mouth in [place] 00 the Medical morning Branch and 1 tablet in the evening. KCL 20 mEq 2022-0 Yes 20meq Take 1 Univ ers tablet 8-22 tablet by ity of 00:00: mouth in [place] 00 the Medical morning Branch and 1 tablet in the evening. KCL 20 mEq 2022-0 Yes 20meq Take 1 Univ ers tablet 8-22 tablet by ity of 00:00: mouth in [place] 00 the Medical morning Branch and 1 tablet in the evening. KCL 20 mEq 2022-0 Yes 20meq Take 1 Univ ers tablet 8-22 tablet by ity of 00:00: mouth in [place] 00 the Medical morning Branch and 1 tablet in the evening. KCL 20 mEq 2022-0 Yes 20meq Take 1 Univ ers tablet 8-22 tablet by ity of 00:00: mouth in [place] 00 the Medical morning Branch and 1 tablet in the evening. KCL 20 mEq 2022-0 Yes 20meq Take 1 Univ ers tablet 8-22 tablet by ity of 00:00: mouth in [place] 00 the Medical morning Branch and 1 tablet in the evening. apixaban 2021-0 Yes [id number] 2.5mg Take 1 Univer s 2.5 mg 8-12 tablet by ity of tablet 00:00: mouth in [place] 00 the Medical morning Branch and 1 tablet in the evening. Indication s: blood clot in a deep vein of the trihealthitie s apixaban 0 Yes 1473 2.5mg Take 1 Univer s 2.5 mg 8-12 tablet by ity of tablet 00:00: mouth in [place] 00 the Medical morning Branch and 1 tablet in the evening. Indication s: blood clot in a deep vein of the extremitie s apixaban 0 Yes 1473 2.5mg Take 1 Univer s 2.5 mg 8-12 tablet by ity of tablet 00:00: mouth in [place] 00 the Medical morning Branch and 1 tablet in the evening. Indication s: blood clot in a deep vein of the extremitie s apixaban Yes 1473 2.5mg Take 1 Univer s 2.5 mg 8-12 tablet by ity of tablet 00:00: mouth in [place] 00 the Medical morning Branch and 1 tablet in the evening. Indication s: blood clot in a deep vein of the trihealthitie s apixaban Yes 1473 2.5mg Take 1 Univer s 2.5 mg 8-12 tablet by ity of tablet 00:00: mouth in [place] 00 the Medical morning Branch and 1 tablet in the evening. Indication s: blood clot in a deep vein of the trihealthitie s apixaban Yes 1473 2.5mg Take 1 Univer s 2.5 mg 8-12 tablet by ity of tablet 00:00: mouth in [place] 00 the Medical morning Branch and 1 tablet in the evening. Indication s: blood clot in a deep vein of the trihealthitie s apixaban Yes 1473 2.5mg Take 1 Univer s 2.5 mg 8-12 tablet by ity of tablet 00:00: mouth in [place] 00 the Medical morning Branch and 1 tablet in the evening. Indication s: blood clot in a deep vein of the extremitie s apixaban Yes 1473 2.5mg Take 1 Univer s 2.5 mg 8-12 tablet by ity of tablet 00:00: mouth in [place] 00 the Medical morning Branch and 1 [...] by ity of tablet 15:36: mouth at [place] [address] bedtime. Medical Branch HYDROmorphO 2021-0 Yes 2mg Take 2 mg U nivers ne 4 mg 7-25 by mouth ity of tablet 15:36: every 4 [place] [address] (four) Medical hours as Branch needed. Indication s: last taken ~2 wks ago allopurinoL 2021-0 Yes 300mg Take 300 U nivers 300 mg 7-25 mg by ity of tablet 15:36: mouth [place] [address] daily. Medical Branch traZODONE 2021-0 Yes 150mg [...] mouth ity of tablet 15:36: every 4 [place] 37 (four) Medical hours as Branch needed. [...] mouth ity of tablet 15:36: every 4 [place] 37 (four) Medical hours as Branch needed. [...] mouth ity of tablet 15:36: every 4 [place] 37 (four) Medical hours as Branch needed. [...] mouth ity of tablet 15:36: every 4 [place] 37 (four) Medical hours as Branch needed. [...] 37 daily. Medical Branch benzonatate 0 Yes [id number] 100mg Take 1 Univers (TESSALON 5-12 capsule by ity of PERLES) 100 00:00: mouth [place] mg capsule 00 every 8 Medica l (eight) Branch hours as needed for Cough. benzonatate 2021-0 Yes [id number] 100mg Take 1 Univers (TESSALON 5-12 capsule by ity of PERLES) 100 00:00: mouth [place] mg capsule 00 every 8 Medica l (eight) Branch hours as needed for Cough. benzonatate 2021-0 Yes [id number] 100mg Take 1 Univers (TESSALON 5-12 capsule by ity of PERLES) 100 00:00: mouth [place] mg capsule 00 every 8 Medica l (eight) Branch hours as needed for Cough. benzonatate 2021-0 Yes [id number] 100mg Take 1 Univers (TESSALON 5-12 capsule by ity of PERLES) 100 00:00: mouth [place] mg capsule 00 every 8 Medica l (eight) Branch hours as needed for Cough. benzonatate 2021-0 Yes [id number] 100mg Take 1 Univers (TESSALON 5-12 capsule by ity of PERLES) 100 00:00: mouth [place] mg capsule 00 every 8 Medica l (eight) Branch hours as needed for Cough. benzonatate 2021-0 Yes [id number] 100mg Take 1 Univers (TESSALON 5-12 capsule by ity of PERLES) 100 00:00: mouth [place] mg capsule 00 every 8 Medica l (eight) Branch hours as needed for Cough. benzonatate 0 Yes [id number] 100mg Take 1 Univers (TESSALON 5-12 capsule by ity of PERLES) 100 00:00: mouth [place] mg capsule 00 every 8 Medica l (eight) Branch hours as needed for Cough. benzonatate Yes [id number] 100mg Take 1 Univers (TESSALON 5-12 capsule by ity of PERLES) 100 00:00: mouth [place] mg capsule 00 every 8 Medica l (eight) Branch hours as needed for Cough. benzonatate Yes [id number] 100mg Take 1 Univers (TESSALON 5-12 capsule by ity of PERLES) 100 00:00: mouth [place] mg capsule 00 every 8 Medica l (eight) Branch hours as needed for Cough. benzonatate Yes [id number] 100mg Take 1 Univers (TESSALON 5-12 capsule by ity of PERLPenBlade) 100 00:00: mouth [place] mg capsule 00 every 8 Medica l (eight) Branch hours as needed for Cough. bumetanide Yes [id number] 3mg Take 1.5 Univers 2 mg tablet 4-25 02 tablets by it y of 00:00: mouth 2 [place] 00 (two) Medical times Branch daily. metoprolol Yes [id number] 25mg Take 1 U nivers succinate 4-25 tablet by ity o f XL 25 mg 24 00:00: mouth [place] hr tablet 00 daily. Medical Branch atorvastati Yes [id number] 20mg Take 1 Univers n 20 mg 4-25 tablet by ity of tablet 00:00: mouth [place] 00 daily. Medical Branch bumetanide Yes [id number] 3mg Take 1.5 Univers 2 mg tablet 4-25 02 tablets by it y of 00:00: mouth 2 [place] 00 (two) Medical times Branch daily. metoprolol Yes [id number] 25mg Take 1 U nivers succinate 4-25 tablet by ity o f XL 25 mg 24 00:00: mouth [place] hr tablet 00 daily. Medical Branch atorvastati Yes [id number] 20mg Take 1 Univers n 20 mg 4-25 tablet by ity of tablet 00:00: mouth [place] 00 daily. Medical Branch bumetanide Yes [id number] 3mg Take 1.5 Univers 2 mg tablet 4-25 02 tablets by it y of 00:00: mouth 2 [place] 00 (two) Medical times Branch daily. metoprolol Yes [id number] 25mg Take 1 U nivers succinate 4-25 tablet by ity o f XL 25 mg 24 00:00: mouth [place] hr tablet 00 daily. Medical Branch atorvastati Yes [id number] 20mg Take 1 Univers n 20 mg 4-25 tablet by ity of tablet 00:00: mouth [place] 00 daily. Medical Branch bumetanide Yes [id number] 3mg Take 1.5 Univers 2 mg tablet 4-25 02 tablets by it y of 00:00: mouth 2 [place] 00 (two) Medical times Branch daily. metoprolol Yes [id number] 25mg Take 1 U nivers succinate 4-25 tablet by ity o f XL 25 mg 24 00:00: mouth [place] hr tablet 00 daily. Medical Branch atorvastati Yes [id number] 20mg Take 1 Univers n 20 mg 4-25 tablet by ity of tablet 00:00: mouth [place] 00 daily. [facility] bumetanide Yes [id number] 3mg Take 1.5 [facility] 2 mg tablet 4-25 02 tablets by it y of 00:00: mouth 2 [place] 00 (two) Medical times Branch daily. metoprolol Yes [id number] 25mg Take 1 U nivers succinate 4-25 tablet by ity o f XL 25 mg 24 00:00: mouth [place] hr tablet 00 daily. Medical [facility] atorvastati Yes [id number] 20mg Take 1 [facility] n 20 mg 4-25 tablet by ity of tablet 00:00: mouth [place] 00 daily. [facility] bumetanide Yes [id number] 3mg Take 1.5 [facility] 2 mg tablet 4-25 02 tablets by it y of 00:00: mouth 2 [place] 00 (two) Medical times Branch daily. metoprolol Yes [id number] 25mg Take 1 U nivers succinate 4-25 tablet by ity o f XL 25 mg 24 00:00: mouth [place] hr tablet 00 daily. [facility] atorvastati Yes [id number] 20mg Take 1 [facility] n 20 mg 4-25 tablet by ity of tablet 00:00: mouth [place] 00 daily. [facility] bumetanide Yes [id number] 3mg Take 1.5 [facility] 2 mg tablet 4-25 02 tablets by it y of 00:00: mouth 2 [place] 00 (two) Medical times Branch daily. metoprolol Yes [id number] 25mg Take 1 U nivers succinate 4-25 tablet by ity o f XL 25 mg 24 00:00: mouth [place] hr tablet 00 daily. [facility] atorvastati Yes [id number] 20mg Take 1 [facility] n 20 mg 4-25 tablet by ity of tablet 00:00: mouth [place] 00 daily. [facility] bumetanide Yes [id number] 3mg Take 1.5 [facility] 2 mg tablet 4-25 02 tablets by it y of 00:00: mouth 2 [place] 00 (two) Medical times Branch daily. metoprolol Yes [id number] 25mg Take 1 U nivers succinate 4-25 tablet by ity o f XL 25 mg 24 00:00: mouth [place] hr tablet 00 daily. [facility] atorvastati Yes [id number] 20mg Take 1 [facility] n 20 mg 4-25 tablet by ity of tablet 00:00: mouth [place] 00 daily. [facility] bumetanide Yes [id number] 3mg Take 1.5 [facility] 2 mg tablet 4-25 02 tablets by it y of 00:00: mouth 2 [place] 00 (two) Medical times Branch daily. metoprolol Yes [id number] 25mg Take 1 U nivers succinate 4-25 tablet by ity o f XL 25 mg 24 00:00: mouth [place] hr tablet 00 daily. [facility] atorvastati Yes [id number] 20mg Take 1 [facility] n 20 mg 4-25 tablet by ity of tablet 00:00: mouth [place] 00 daily. [facility] bumetanide Yes [id number] 3mg Take 1.5 [facility] 2 mg tablet 4-25 02 tablets by it y of 00:00: mouth 2 [place] 00 (two) Medical times Branch daily. metoprolol 2022-0 Yes [id number] 25mg Take 1 U nivers succinate 4-25 tablet by ity o f XL 25 mg 24 00:00: mouth [place] hr tablet 00 daily. Medical [facility] atorvastati 2021-0 Yes [id number] 20mg Take 1 [facility] n 20 mg [...] by ity of (ROBAXIN) 14:01: mouth 3 [place] 750 mg 43 (three) Medical tablet times Branch daily as needed. fluticasone Yes [id number] 1{puff} Inhale 1 [facility] -umeclidin- 2-11 Puff ity of vilanter 00:00: daily. [place] ([facility] ELLIP[facility]) Branch 100-62.5-25 mcg DsDv albuterol Yes [id number] 2{puff} Inhale 2 [facility] 90 2-11 Puffs ity of mcg/actuati 00:00: every 6 [place] as on inhaler 00 (six) Medical hours as Branch needed for Wheezing or Shortness of Breath. fluticasone Yes [id number] 1{puff} Inhale 1 [facility] -umeclidin- 2-11 Puff ity of vilanter 00:00: daily. [place] ([facility]) Branch 100-62.5-25 mcg DsDv albuterol Yes [id number] 2{puff} Inhale 2 [facility] 90 2-11 Puffs ity of mcg/actuati 00:00: every 6 [place] as on inhaler 00 (six) Medical hours as Branch needed for Wheezing or Shortness of Breath. fluticasone Yes [id number] 1{puff} Inhale 1 [facility] -umeclidin- 2-11 Puff ity of vilanter 00:00: daily. [place] ([facility] E[facility]) Branch 100-62.5-25 mcg DsDv albuterol Yes [id number] 2{puff} Inhale 2 [facility] 90 2-11 Puffs ity of mcg/actuati 00:00: every 6 [place] as on inhaler 00 (six) Medical hours as Branch needed for Wheezing or Shortness of Breath. fluticasone 2021-0 Yes [id number] 1{puff} Inhale 1 [facility] -umeclidin- 2-11 Puff ity of vilanter 00:00: daily. [place] ([facility] Medical ELLIP[facility]) Branch 100-62.5-25 mcg DsDv albuterol Yes [id number] 2{puff} Inhale 2 [facility] 90 2-11 Puffs ity of mcg/actuati 00:00: every 6 [place] as on inhaler 00 (six) Medical hours as Branch needed for Wheezing or Shortness of Breath. fluticasone 0 Yes [id number] 1{puff} Inhale 1 [facility] -umeclidin- 2-11 Puff ity of vilanter 00:00: daily. [place] ([address]) Branch 100-62.5-25 mcg DsDv albuterol Yes [id number] 2{puff} Inhale 2 [facility] 90 2-11 Puffs ity of mcg/actuati 00:00: every 6 [place] as on inhaler 00 (six) Medical hours as Branch needed for Wheezing or Shortness of Breath. fluticasone 0 Yes [id number] 1{puff} Inhale 1 [facility] -umeclidin- 2-11 Puff ity of vilanter 00:00: daily. [place] ([address]) Branch 100-62.5-25 mcg DsDv albuterol Yes [id number] 2{puff} Inhale 2 [facility] 90 2-11 Puffs ity of mcg/actuati 00:00: every 6 [place] as on inhaler 00 (six) Medical hours as Branch needed for Wheezing or Shortness of Breath. fluticasone 0 Yes [id number] 1{puff} Inhale 1 [facility] -umeclidin- 2-11 Puff ity of vilanter 00:00: daily. [place] ([address]) Branch 100-62.5-25 mcg DsDv albuterol 0 Yes [id number] 2{puff} Inhale 2 [facility] 90 2-11 Puffs ity of mcg/actuati 00:00: every 6 [place] as on inhaler 00 (six) Medical hours as Branch needed for Wheezing or Shortness of Breath. fluticasone 0 Yes [id number] 1{puff} Inhale 1 [facility] -umeclidin- 2-11 Puff ity of vilanter 00:00: daily. [place] ([address]) Branch 100-62.5-25 mcg DsDv albuterol Yes [id number] 2{puff} Inhale 2 [facility] 90 2-11 Puffs ity of mcg/actuati 00:00: every 6 [place] as on inhaler 00 (six) Medical hours as Branch needed for Wheezing or Shortness of Breath. fluticasone Yes [id number] 1{puff} Inhale 1 [facility] -umeclidin- 2-11 Puff ity of vilanter 00:00: daily. [place] ([facility] ELL[facility]) Branch 100-62.5-25 mcg DsDv albuterol Yes [id number] 2{puff} Inhale 2 [facility] 90 2-11 Puffs ity of mcg/actuati 00:00: every 6 [place] as on inhaler 00 (six) Medical hours as Branch needed for Wheezing or Shortness of Breath. fluticasone Yes [id number] 1{puff} Inhale 1 [facility] -umeclidin- 2-11 Puff ity of vilanter 00:00: daily. [place] ([facility]LL[facility]) Branch 100-62.5-25 mcg DsDv albuterol Yes [id number] 2{puff} Inhale 2 [facility] 90 2-11 Puffs ity of mcg/actuati 00:00: every 6 [place] as on inhaler 00 (six) Medical hours as Branch needed for Wheezing or Shortness of Breath. apixaban 2020-07 Yes [id number] 2.5mg Take 1 Univer s 2.5 mg 2-08 tablet by ity of tablet 00:00: mouth 2 [place] (two) Medical times Branch daily. Indication s: blood clot in a deep vein of the extremitie s apixaban 2020-07 Yes [id number] 2.5mg Take 1 Univer s 2.5 mg 2-08 tablet by ity of tablet 00:00: mouth 2 [place] (two) Medical times Branch daily. Indication s: [...] Medical times Branch daily. spironolact 2020-07 Yes [id number] 25mg Take 1 [facility] one 25 mg 1-10 tablet by ity o f tablet 00:00: mouth [place] 00 daily. Medical Branch KCL 20 mEq 2020-07 Yes 20meq Take 1 Univ ers tablet 1-10 tablet by ity of 00:00: mouth 2 00 (two) Medical times Branch daily. spironolact 2020-07 Yes [id number] 25mg Take 1 [facility] one 25 mg 1-10 tablet by ity o f tablet 00:00: mouth [place] 00 daily. Medical Branch KCL 20 mEq 2020-07 Yes 20meq Take 1 Univ ers tablet 1-10 tablet by ity of 00:00: mouth 2 [place] 00 (two) Medical times Branch daily. spironolact 2020-07 Yes [id number] 25mg Take 1 [facility] one 25 mg 1-10 tablet by ity o f tablet 00:00: mouth [place] 00 daily. Medical Branch spironolact 2020-07 Yes [id number] 25mg Take 1 [facility] one 25 mg 1-10 tablet by ity o f tablet 00:00: mouth [place] 00 daily. Medical Branch spironolact 2020-07- No [id number] 25mg Take 1 [facility] one 25 mg 1-10 10-11 tablet by ity of tablet 00:00: 00:00 mouth [place] 00 :00 daily. Medical Branch KCL 20 mEq 2020-07- No 20meq Take 1 Uni vers tablet 1-10 08-22 tablet by ity of 00:00: 00:00 mouth 2 [place] 00 :00 (two) Medical times Branch daily. Nystatin Nystatin 2020-07- No 1{appli Nystatin [id number] 0-29 11-11 cation} [id number] UNIT/GM UNIT/GM 00:00: 00:00 UNIT/GM 00 :00 [...] 2-05 Puff ity of anteroL 00:00: daily. [place] ([facility] 00 Medical ELLIPTA) Branch 200-25 mcg/dose [...] 00:00: before - [facility] [address] [facility] bumetanide 2019-0 Yes Chronic 2mg Take 2 [...] as needed for Cough. benzonatate 2020-0 Yes [id number] 100mg Take 1 [facility] 100 mg 2-28 capsule by ity of capsule 00:00: mouth 3 [place] 00 (three) Medical times Branch daily as needed for Cough. benzonatate 2020-0 Yes [id number] 100mg Take 1 [facility] 100 mg 2-28 capsule by ity of capsule 00:00: mouth 3 [place] 00 (three) Medical times Branch daily as needed for Cough. benzonatate 2020-0 Yes [id number] 100mg Take 1 [facility] 100 mg 2-28 capsule by ity of capsule 00:00: mouth 3 [place] 00 (three) Medical times Branch daily as needed for Cough. benzonatate 2020-0 Yes [id number] 100mg Take 1 [facility] 100 mg 2-28 capsule by ity of capsule 00:00: mouth 3 (three) Medical times Branch daily as needed for Cough. benzonatate 2020-0 Yes [id number] 100mg Take 1 [facility] 100 mg 2-28 capsule by ity of capsule 00:00: mouth 3 (three) Medical times Branch daily as needed for Cough. benzonatate 2020-0 Yes [id number] 100mg Take 1 [facility] 100 mg 2-28 capsule by ity of capsule 00:00: mouth 3 (three) Medical times Branch daily as needed for Cough. benzonatate 2020-0 Yes [id number] 100mg Take 1 [facility] 100 mg 2-28 capsule by ity of capsule 00:00: mouth 3 (three) Medical times Branch daily as needed for Cough. benzonatate 2020-0 Yes [id number] 100mg Take 1 [facility] 100 mg 2-28 capsule by ity of capsule 00:00: mouth 3 (three) Medical times Branch daily as needed for Cough. benzonatate 2020-0 Yes [id number] 100mg Take 1 [facility] 100 mg 2-28 capsule by ity of capsule 00:00: mouth 3 (three) Medical times Branch daily as needed for Cough. benzonatate 2020-0 Yes [id number] 100mg Take 1 [facility] 100 mg 2-28 [...] tablet by ity of tablet 00:00: mouth 00 (two) Medical times Branch daily with [...] Memoria 0-05 (Same as: l 15:57: Ativan) Ativan 2015-07 No Notes: Memoria 0-05 (Same as: l 15:57: Ativan) Ativan 2015-07 No Notes: Memoria 0-05 (Same as: l 15:57: Ativan) Ativan 2015-07 No Notes: Memoria 0-05 (Same as: l 15:57: Ativan) Ativan 2015-07 No Notes: Memoria 0-05 (Same as: l 15:57: Ativan) Aspirin 2015-07 No Notes: Do Memor ia 0-05 not crush l 14:00: or chew. (Same As: Ecotrin) Potassium 2015-07 No 20 [...] 0-05 not crush l 14:00: or chew. [place] 00 (Same As: Ecotrin) Potassium 2015-07 No 20 mEq, Memor ia Chloride 20 0-05 Route: PO, l MEQ 14:00: Drug form: [place] Extended 00 ERTAB, Release Daily, Tablet Dosing Weight 90.909, kg, Start date: 04/06/16 9:00:00 CDT, Duration: 30 day, Stop date: 05/05/16 9:00:00 CDT Aspirin 2015-07 No Notes: Do Memor ia 0-05 not crush l 14:00: or chew. [place] 00 (Same As: Ecotrin) Potassium 2015-07 No 20 mEq, Memor ia Chloride 20 0-05 Route: PO, l MEQ 14:00: Drug form: [place] Extended 00 ERTAB, Release Daily, Tablet Dosing [...] 0-05 not crush l 14:00: or chew. [place] 00 (Same As: Ecotrin) Potassium 2015-07 No [...] KCL) [place] 00 Infuse over 2 hours. Furosemide 2015-07 Yes 20 mg = 1 Me moria 20 MG Oral 0-05 tab, PO, l Tablet 11:52: Daily, # [place] 00 60 tab, 0 Refill(s) Potassium 2015-07 Yes 40 mEq = 2 Me moria Chloride 20 0-05 tab, PO, l MEQ 11:52: BID, # 60 [place] Extended 00 tab, 0 Release Refill(s) Tablet Furosemide 2015-07 Yes 20 mg = 1 Me moria 20 MG Oral 0-05 tab, PO, l Tablet 11:52: Daily, # [place] 00 60 tab, 0 Refill(s) Potassium 2015-07 Yes 40 mEq = 2 Me moria Chloride 20 0-05 tab, PO, l MEQ 11:52: BID, # 60 [place] Extended 00 tab, 0 Release Refill(s) Tablet [...] PO, l MEQ 11:52: BID, # 60 [place] Extended 00 tab, 0 Release Refill(s) Tablet Furosemide 2015-07 Yes 20 mg = 1 Me moria 20 MG Oral 0-05 tab, PO, l Tablet 11:52: Daily, # [place] 00 60 tab, 0 Refill(s) Potassium 2015-07 Yes 40 mEq = 2 Me moria Chloride 20 0-05 tab, PO, l MEQ 11:52: BID, # 60 [place] Extended 00 tab, 0 Release Refill(s) Tablet potassium 2015-07 No Notes: Memori a chloride 0-05 (Same as: l 11:00: KCL) [place] 00 Infuse over 2 hours. potassium 2015-07 No Notes: Memori a chloride 0-05 (Same as: l 11:00: KCL) [place] 00 Infuse over 2 hours. potassium 2015-07 No Notes: Memori a chloride 0-05 (Same as: l 11:00: KCL) [place] 00 Infuse over 2 hours. potassium 2015-07 No Notes: Memori a chloride 0-05 (Same as: l 11:00: KCL) [place] 00 Infuse over 2 hours. potassium 2015-07 No Notes: Memori a chloride 0-05 (Same as: l 11:00: KCL) [place] 00 Infuse over 2 hours. celecoxib 2015-07 [...] 0-04 tab, l MEQ 16:43: Route: PO, [place] Extended 00 Drug form: Release ERTAB, Tablet [...] 0-04 tab, l MEQ 16:43: Route: PO, [place] Extended 00 Drug form: Release ERTAB, Tablet [...] 0-04 tab, l MEQ 16:43: Route: PO, [place] Extended 00 Drug form: Release ERTAB, Tablet [...] 0-04 tab, l MEQ 16:43: Route: PO, [place] Extended 00 Drug form: Release ERTAB, Tablet [...] l MEQ 16:43: Route: PO, [place] Extended Drug form: Release ERTAB, Tablet Daily, Dosing [...] 0-04 (Same as: l 14:00: K-Dur 20) "Do Not Crush" With food and full glass of water potassium 2015-07 No Notes: Memori a chloride 0-04 (Same as: l 14:00: K-Dur 20) [place] 00 "Do Not Crush" With food and [...] 0-04 (Same as: l 14:00: K-Dur 20) [place] 00 "Do Not Crush" With food and full glass of water potassium 2015-07 No Notes: Memori a chloride 0-04 (Same as: l 08:24: KCL) [place] 00 Infuse over 2 hours. potassium 2015-07 No Notes: Memori a chloride 0-04 (Same as: l 08:24: KCL) [place] 00 Infuse over 2 hours. potassium 2015-07 No Notes: Memori a chloride 0-04 (Same as: l 08:24: KCL) [place] 00 Infuse over 2 hours. potassium 2015-07 No Notes: Memori a chloride 0-04 (Same as: l 08:24: KCL) [place] 00 Infuse over 2 hours. potassium 2015-07 No Notes: Memori a chloride 0-04 (Same as: l 08:24: KCL) [place] 00 Infuse over 2 hours. Lasix 2015-07 No Notes: Memoria 0-03 (Same as: l 22:00: Lasix) [place] 00 MEDICATION WASTE Product Size: 40 mg Product Wasted: ___ mg Lasix 2015-07 No Notes: Memoria 0-03 (Same as: l 22:00: Lasix) [place] 00 MEDICATION WASTE Product Size: 40 mg [...] Memoria 0-03 (Same as: l 22:00: Lasix) [place] 00 MEDICATION WASTE Product Size: 40 mg Product Wasted: ___ mg iodixanol 2015-07 No Notes: Memori a 0-03 (Same as: l 19:50: Visipaque) [place] 00 . WASTE: F/P - Black; E - [facility] Trash Bin iodixanol 2015-07 No Notes: Memori a 0-03 (Same as: l 19:50: Visipaque) [place] 00 . WASTE: F/P - Black; E - [facility] Trash Bin iodixanol 2015-07 No Notes: Memori a 0-03 (Same as: l 19:50: Visipaque) [place] . WASTE: F/P - Black; E - [facility] Trash [facility] iodixanol 2015-07 No Notes: Memori a 0-03 (Same as: l 19:50: Visipaque) [place] 00 . WASTE: F/P - Black; E - [facility] Trash Bin iodixanol 2015-07 No Notes: Memori a 0-03 (Same as: l 19:50: Visipaque) [place] 00 . WASTE: F/P - Black; E - [facility] Trash Bin Albuterol 2015-07 No Notes: Memori a 0.833 MG/ML 0-03 (Same as: :54: Duoneb) [place] Ipratropium 00 [place] 0.167 MG/ML Inhalant Solution [DuoNeb] Albuterol 2015-07 No Notes: Memori a 0.833 MG/ML 0-03 (Same as: :54: Duoneb) [place] Ipratropium 00 [place] 0.167 MG/ML Inhalant Solution [DuoNeb] Albuterol 2015-07 No Notes: Memori a 0.833 MG/ML 0-03 (Same as: :54: Duoneb) [place] Ipratropium 00 [place] 0.167 MG/ML Inhalant Solution [DuoNeb] Albuterol 2015-07 No Notes: Memori a 0.833 MG/ML 0-03 (Same as: :54: Duoneb) [place] Ipratropium 00 [place] 0.167 MG/ML Inhalant Solution [DuoNeb] Albuterol 2015-07 No Notes: Memori a 0.833 MG/ML 0-03 (Same as: l / 17:54: Duoneb) [place] Ipratropium 00 [place] 0.167 MG/ML Inhalant Solution [DuoNeb] Acetaminoph 2015-07 No Notes: Do M emoria en 325 MG / 0-03 not exceed l Hydrocodone 16:53: 4gm/day of [place] Bitartrate 00 acetaminop 10 MG Oral hen. (Same Tablet as: [place] [[place] 325/10) ] Acetaminoph 2015-07 No Notes: Do M emoria en 325 MG / 0-03 not exceed l Hydrocodone 16:53: 4gm/day of [place] Bitartrate 00 acetaminop 10 MG Oral hen. (Same Tablet as: [place] [[place] 325/10) ] Acetaminoph 2015-07 No Notes: Do M emoria en 325 MG / 0-03 not exceed l Hydrocodone 16:53: 4gm/day of [place] Bitartrate 00 acetaminop 10 MG Oral hen. (Same Tablet as: [place] [[place] 325/10) ] Acetaminoph 2015-07 No Notes: Do M emoria en 325 MG / 0-03 not exceed l Hydrocodone 16:53: 4gm/day of [place] Bitartrate 00 acetaminop 10 MG Oral hen. (Same Tablet as: [place] [[place] 325/10) ] Acetaminoph 2015-07 No Notes: Do M emoria en 325 MG / 0-03 not exceed l Hydrocodone 16:53: 4gm/day of [place] Bitartrate 00 acetaminop 10 MG Oral hen. (Same Tablet as: [place] [[place] 325/10) ] Ativan 2015-07 No Notes: Memoria 0-03 (Same as: l 16:34: Ativan) [place] 00 Ativan 2015-07 No Notes: Memoria 0-03 (Same as: l 16:34: Ativan) [place] 00 Ativan 2015-07 No Notes: Memoria 0-03 (Same as: l 16:34: Ativan) [place] 00 Ativan 2015-07 No Notes: Memoria 0-03 (Same as: l 16:34: Ativan) [place] 00 Ativan 2015-07 No Notes: Memoria 0-03 (Same as: l 16:34: Ativan) [place] Robaxin 2015-07 No Notes: Memoria 0-03 (Same l 14:00: as:Robaxin [place] ) Robaxin 2015-07 No Notes: Memoria 0-03 (Same l 14:00: as:Robaxin [place] ) Robaxin 2015-07 No Notes: Memoria 0-03 (Same l 14:00: as:Robaxin [place] ) Robaxin 2015-07 No Notes: Memoria 0-03 (Same l 14:00: as:Robaxin [place] ) Robaxin 2015-07 No Notes: Memoria 0-03 (Same l 14:00: as:Robaxin [place] ) tramadol 2015-07 Yes 50 mg = [...] day, # 42 tab, 0 Refill(s) senna 86 2015-07 Yes 8.6 mg = 1 Me [...] not exceed l Hydrocodone 10:31: 4gm/day of [place] Bitartrate 00 acetaminop 10 MG Oral hen. (Same Tablet as: [place] [[place] 325/10) 10325] tramadol 2015-07 No Notes: Not Mem oria hydrochlori 0-03 to exceed l de 50 MG 10:31: 400mg/day. Her reed Oral Tablet 00 (Same As: [Ultram] Ultram) Acetaminoph 2015-07 No Notes: Do M emoria en 325 MG / 0-03 not exceed l Hydrocodone 10:31: 4gm/day of [place] Bitartrate 00 acetaminop 10 MG Oral hen. (Same Tablet as: [place] [[place] 325/10) 10325] tramadol 2015-07 No Notes: Not Mem oria hydrochlori 0-03 to exceed l de 50 MG 10:31: 400mg/day. Her reed Oral Tablet 00 (Same As: [Ultram] Ultram) Acetaminoph 2015-07 No Notes: Do M emoria en 325 MG / 0-03 not exceed l Hydrocodone 10:31: 4gm/day of [place] Bitartrate 00 acetaminop 10 MG Oral hen. (Same Tablet as: [place] [[place] 325/10) 10/325] tramadol 2015-07 No Notes: Not Mem oria hydrochlori 0-03 to exceed l de 50 MG 10:31: 400mg/day. Her reed Oral Tablet 00 (Same As: [Ultram] Ultram) Acetaminoph 2015-07 No Notes: Do M emoria en 325 MG / 0-03 not exceed l Hydrocodone 10:31: 4gm/day of [place] Bitartrate 00 acetaminop 10 MG Oral hen. (Same Tablet as: [place] [[place] 325/10) 10/325] tramadol 2015-07 No Notes: Not Mem oria hydrochlori 0-03 to exceed l de 50 MG 10:31: 400mg/day. Her reed Oral Tablet 00 (Same As: [Ultram] Ultram) Acetaminoph 2015-07 No Notes: Do M emoria en 325 MG / 0-03 not exceed l Hydrocodone 10:31: 4gm/day of [place] Bitartrate 00 acetaminop 10 MG Oral hen. (Same Tablet as: [place] [[place] 325/10) 10/325] tramadol 2015-07 No Notes: Not [...] patch 0-03 Remove l 02:00: patch 12 [place] 00 hours after applicatio n each day. remove 2015-07 No Notes: Memoria patch 0-03 Remove l 02:00: patch 12 [place] 00 hours after applicatio n each day. remove 2015-07 No Notes: Memoria patch 0-03 Remove l 02:00: patch 12 [place] 00 hours after applicatio n each day. heparin 2015-07 No Notes: Memoria sodium, 0-02 porcine l porcine 21:00: heparin [place] 2500 UNT/ML 00 Injectable Solution heparin 2015-07 No Notes: Memoria sodium, 0-02 porcine l porcine 21:00: heparin [place] 2500 UNT/ML 00 Injectable Solution heparin 2015-07 No Notes: Memoria sodium, 0-02 porcine l porcine 21:00: heparin [place] 2500 UNT/ML 00 Injectable Solution heparin 2015-07 [...] Notes: Memoria 0-01 Chlorasept l 15:30: ic [place] 00 (Same as: Chlorasept ic, Sore Throat [place]) WASTE: F/P - Black; E - Municipal Trash Bin phenol 2015-07 No Notes: Memoria 0-01 Chlorasept l 15:30: ic [place] 00 (Same as: Chlorasept ic, Sore Throat [place]) WASTE: F/P - Black; E - Municipal Trash Bin phenol 2015-07 No Notes: Memoria 0-01 Chlorasept l 15:30: ic [place] 00 (Same as: Chlorasept ic, Sore Throat [place]) WASTE: F/P - Black; E - Municipal Trash Bin phenol 2015-07 No Notes: Memoria 0-01 Chlorasept l 15:30: ic [place] 00 (Same as: Chlorasept ic, Sore Throat [place]) WASTE: F/P - Black; E - Municipal Trash Bin phenol 2015-07 No Notes: Memoria 0-01 Chlorasept l 15:30: ic [place] 00 (Same as: Chlorasept ic, Sore Throat [place]) WASTE: F/P - Black; E - Municipal Trash Bin Prinivil 2015-07 No Notes: Memoria 0-01 (Same as: l 14:00: Prinivil, [place] 00 Zestril) atorvastati 2015-07 No Notes: Manjinder nasir n 0-01 (Same As: l 14:00: Lipitor) [place] MaxEPA 2015-07 No Notes: Memoria 0-01 (Same as: l 14:00: MaxEPA, [place] 00 [place] 3 fish oil ) Non-Formul carisa Drug [...] as:Thera) WASTE: F/P - Black; E - [employer] Trash Bin Hydrochloro 2015-07 No 1 tab, [...] n 0-01 (Same As: l 14:00: Lipitor) [place] 00 MaxEPA 2015-07 No Notes: Memoria 0-01 (Same as: l 14:00: MaxEPA, [place] 3 fish oil ) Non-Formul carisa Drug [...] Notes: Memoria 0-01 (Same l 14:00: as:Robaxin [place] ) Furosemide 2015-07 No Notes: Memor ia 20 MG Oral 0-01 (Same as: l Tablet 14:00: Lasix) Fluoxetine 2015-07 No Notes: Memor ia 0-01 (Same as: l 14:00: Prozac, [place] 00 Sarafem) Fenofibrate 2015-07 No Notes: Manjinder nasir 145 MG Oral 0-01 (Same as: l Tablet 14:00: Tricor) Prinivil 2015-07 No Notes: Memoria 0-01 (Same as: l 14:00: Prinivil, 00 Zestril) atorvastati 2015-07 No Notes: Manjinder nasir n 0-01 (Same As: l 14:00: Lipitor) MaxEPA 2015-07 No Notes: Memoria 0-01 (Same as: l 14:00: MaxEPA, [place] 3 fish oil ) Non-Formul carisa Drug [...] Memoria 0-01 (Same as: l 14:00: Prinivil, 00 Zestril) atorvastati 2015-07 No Notes: Manjinder nasir n 0-01 (Same As: l 14:00: Lipitor) MaxEPA 2015-07 No Notes: Memoria 0-01 (Same as: l 14:00: MaxEPA, [place] 3 fish oil ) Non-Formul carisa Drug [...] Memoria 0-01 (Same as: l 14:00: MaxEPA, [place] 3 fish oil ) Non-Formul carisa Drug [...] 10 MG Oral hen. (Same Tablet as: [place] [[place] 325/10) ] Acetaminoph 2015-07 No Notes: Do M emoria en 325 MG / 0-01 not exceed l Hydrocodone 11:40: 4gm/day of [place] Bitartrate 00 acetaminop 10 MG Oral hen. (Same Tablet as: [place] [[place] 325/10) ] Acetaminoph 2015-07 No Notes: Do M emoria en 325 MG / 0-01 not exceed l Hydrocodone 11:40: 4gm/day of [place] Bitartrate 00 acetaminop 10 MG Oral hen. (Same Tablet as: [place] [[place] 325/10) ] Acetaminoph 2015-07 No Notes: Do M emoria en 325 MG / 0-01 not exceed l Hydrocodone 11:40: 4gm/day of [place] Bitartrate 00 acetaminop 10 MG Oral hen. (Same Tablet as: [place] [[place] 325/10) ] Acetaminoph 2015-07 No Notes: Do M emoria en 325 MG / 0-01 not exceed l Hydrocodone 11:40: 4gm/day of [place] Bitartrate 00 acetaminop 10 MG Oral hen. (Same Tablet as: [place] [[place] 325/10) ] Famotidine 2015-07 No Notes: Memor ia 0-01 (Same as: l 02:00: Pepcid) [place] 00 Can be dilute in 5-10cc NS IVP: Slow IV push over at least 2 minutes. Acetaminoph 2015-07 No Notes: Manjinder nasir en 0-01 Infuse l 02:00: over 15 [place] 00 minutes Do not exceed 4gm/day of acetaminop hen MEDICATION WASTE Product Size: 1000 mg Product Wasted: ___ mg Saline 2015-07 No Notes: Memoria Flush 0.9% 0-01 Same as: l 02:00: BD [place] 00 Posiflush Sterile Docusate 2015-07 No Notes: Memoria 0-01 (Same as: l 02:00: Colace) [place] 00 (Do Not Crush) sennosides, 2015-07 No Notes: Manjinder nasir LONG-TERM 0-01 (Same as: l 02:00: Senokot) [place] 00 Famotidine 2015-07 No Notes: Memor ia [...] 0.9% 0-01 Same as: l 02:00: BD [place] 00 Posiflush Sterile Docusate 2015-07 No Notes: Memoria 0-01 (Same as: l 02:00: Colace) [place] 00 (Do Not Crush) sennosides, 2015-07 No Notes: Manjinder nasir LONG-TERM 0-01 (Same as: l 02:00: Senokot) [place] 00 Famotidine 2015-07 No Notes: Memor ia 0-01 (Same as: l 02:00: Pepcid) [place] 00 Can be dilute in 5-10cc NS IVP: Slow IV push over at least 2 minutes. Acetaminoph 2015-07 No Notes: Manjinder nasir en 0-01 Infuse l 02:00: over 15 [place] 00 minutes Do not exceed 4gm/day of acetaminop hen MEDICATION WASTE Product Size: 1000 mg Product Wasted: ___ mg Saline 2015-07 No Notes: Memoria Flush 0.9% 0-01 Same as: l 02:00: BD [place] 00 Posiflush Sterile Docusate 2015-07 No Notes: Memoria 0-01 (Same as: l 02:00: Colace) [place] 00 (Do Not Crush) sennosides, 2015-07 No Notes: Manjinder nasir LONG-TERM 0-01 (Same as: l 02:00: Senokot) [place] 00 Famotidine 2015-07 No Notes: Memor ia [...] Memoria 0-01 (Same as: l 02:00: Colace) [place] 00 (Do Not Crush) sennosides, 2015-07 No Notes: Manjinder nasir LONG-TERM 0-01 (Same as: l 02:00: Senokot) Eliot [...] Crush) sennosides, 2015-07 No Notes: Manjinder nasir LONG-TERM 0-01 (Same as: l 02:00: Senokot) Eliot carvedilol No Notes: Memor ia 9- Give with l 22:00: food. Eliot 00 (Same As: Coreg) Folic Acid No Notes: Memor ia 9-30 (Same as: l 22:00: Folvite) [place] carvedilol No Notes: Memor ia 04-01 Give [...] with l 22:00: food. (Same As: Coreg) carvedilol No Notes: Memor ia 04-01 Give with l 22:00: food. (Same As: Coreg) Folic Acid No Notes: Memor ia 04-01 (Same as: l 22:00: Folvite) Folic Acid No Notes: Memor ia 04-01 (Same as: l 22:00: Folvite) ceFAZolin No Notes: Memori a (SCIP) + 9-30 (Same As: l sodium 21:00: Ancef, [place] chloride 00 Kefzol) 0.9% INJ 100 mL MEDICATION WASTE Product Size: 1000 mg Product Wasted: ___ mg ceFAZolin No Notes: Memori a (SCIP) + 9-30 (Same As: l sodium 21:00: Ancef, [place] chloride 00 Kefzol) 0.9% INJ 100 mL MEDICATION WASTE Product Size: 1000 mg Product Wasted: ___ mg ceFAZolin No Notes: Memori a (SCIP) + 9-30 (Same As: l sodium 21:00: Ancef, [place] chloride 00 Kefzol) 0.9% INJ 100 mL MEDICATION WASTE Product Size: 1000 mg Product Wasted: ___ mg ceFAZolin No Notes: Memori a (SCIP) + 9-30 (Same As: l sodium 21:00: Ancef, [place] chloride 00 Kefzol) 0.9% INJ 100 mL MEDICATION WASTE Product Size: 1000 mg Product Wasted: ___ mg ceFAZolin No Notes: Memori a (SCIP) + 04-01 (Same As: l sodium 21:00: Ancef, [place] chloride Kefzol) 0.9% INJ 100 mL MEDICATION WASTE Product Size: 1000 mg Product Wasted: ___ mg ropinirole No Notes: Memor ia - (Same as: l 19:06: Requip) [place] ropinirole No Notes: Memor ia 04-01 (Same as: l 19:06: Requip) [place] 00 ropinirole No Notes: Memor ia 04-01 (Same as: l 19:06: Requip) [place] 00 ropinirole No Notes: Memor ia 04-01 (Same as: l 19:06: Requip) [place] ropinirole No Notes: Memor ia 04-01 (Same as: l 19:06: Requip) [place] 00 Dexamethaso No Notes: Manjinder nasir ne 04-01 Concentrat l 19:00: ion: [place] 00 4mg/ml Dexamethaso No Notes: Manjinder nasir ne 04-01 Concentrat l 19:00: ion: [place] 00 4mg/ml Dexamethaso No Notes: Manjinder nasir ne 04-01 Concentrat l 19:00: ion: [place] 00 4mg/ml Dexamethaso No Notes: Manjinder nasir ne 04-01 Concentrat l 19:00: ion: [place] 00 4mg/ml Dexamethaso No Notes: Manjinder nasir ne 04-01 Concentrat l 19:00: ion: [place] 00 4mg/ml Robaxin No Notes: Memoria -30 (Same l 18:51: as:Robaxin [place] 00 ) Robaxin No Notes: Memoria 04-01 (Same l 18:51: as:Robaxin [place] 00 ) Robaxin No Notes: Memoria -30 (Same l 18:51: as:Robaxin [place] 00 ) Robaxin 2016-0 No Notes: Memoria 9-30 (Same l 18:51: as:Robaxin [place] 00 ) Robaxin 0 No Notes: Memoria -30 (Same l 18:51: as:Robaxin [place] 00 ) Robaxin 0 No Notes: Memoria 30 (Same l 18:11: as:Robaxin [place] 00 ) Robaxin 0 No Notes: Memoria 30 (Same l 18:11: as:Robaxin [place] 00 ) Robaxin 0 No Notes: Memoria 30 (Same l 18:11: as:Robaxin [place] 00 ) Robaxin 0 No Notes: Memoria 30 (Same l 18:11: as:Robaxin [place] 00 ) Robaxin 0 No Notes: Memoria 04-01 (Same l 18:11: as:Robaxin [place] ) Dexamethaso 2015-0 No 10 mg, Manjinder nasir ne 04-01 Route: l 18:06: IVP, ONCE, [place] 00 Dosing Weight 90.909, kg, Priority: NOW, Start date: 04/01/16 13:06:00 CDT, Stop date: 04/01/16 13:06:00 CDT Dexamethaso 2016-0 No 10 mg, Manjinder nasir ne 04-01 Route: l 18:06: IVP, ONCE, [place] 00 Dosing Weight 90.909, kg, Priority: NOW, Start date: 04/01/16 13:06:00 CDT, Stop date: 04/01/16 13:06:00 CDT Dexamethaso 2016-0 No 10 mg, Manjinder nasir ne 04-01 Route: l 18:06: IVP, ONCE, [place] 00 Dosing Weight 90.909, kg, Priority: NOW, Start date: 04/01/16 13:06:00 CDT, Stop date: 04/01/16 13:06:00 CDT Dexamethaso 2016-0 No 10 mg, Manjinder nasir ne 04-01 Route: l 18:06: IVP, ONCE, [place] 00 Dosing Weight 90.909, kg, Priority: NOW, Start date: 04/01/16 13:06:00 CDT, Stop date: 04/01/16 13:06:00 CDT Dexamethaso No 10 mg, Manjinder nasir ne 30 Route: l 18:06: IVP, ONCE, Dosing Weight [...] Manjinder nasir -30 (Same as: l 17:11: Arabellafran) MEDICATION WASTE Product Size: 4 mg Product Wasted: ___ mg Flumazenil No Notes: Memor ia 04-01 (Same as: l 17:11: Romazicon) Naloxone 0 No Notes: Memoria 9-30 Same as l 17:11: Narcan Hydromorpho No 0.2 mg, Mem oria ne 04-01 Route: l 17:11: IVP, Eliot Q5Min, Dosing Weight 90.909, kg, PRN Pain Score 7-10, Start date: 04/01/16 12:11:00 CDT, Duration: 4 doses or times, Stop date: Limited # of times Ondansetron No Notes: Manjinder nasir -30 (Same as: l 17:11: Zofran) [place] 00 MEDICATION WASTE Product Size: 4 mg Product Wasted: ___ mg Flumazenil No Notes: Memor ia 9-30 (Same as: l 17:11: Romazicon) Eliot Naloxone No Notes: Memoria 9-30 Same as l 17:11: Narcan [place] Hydromorpho No 0.2 mg, Mem oria ne [...] 17:11: Romazicon) Eliot Naloxone No Notes: Memoria 9-30 Same as l 17:11: Narcan [place] Hydromorpho No 0.2 mg, Mem oria ne [...] oria ne 04-01 Route: l 17:11: IVP, [place] 00 Q5Min, [...] nasir 9-30 (Same as: l 17:00: Apresoline [place] ) Push over 5 minutes Labetalol 2015-0 No 10 mg, 2 Manjinder nasir 9-30 mL, Route: l 17:00: IVP, Drug [place] 00 form: INJ, Q15Min, Dosing Weight 90.909, kg, PRN Hypertensi on, Start date: 04/01/16 12:00:00 CDT, Duration: 3 doses or times, Stop date: 04/02/16 17:00:00 CDT Hydralazine 2016-0 No Notes: Manjinder nasir 9-30 (Same as: l 17:00: Apresoline [place] ) Push over 5 minutes Labetalol 2015-0 No 10 mg, 2 Manjinder nasir 9-30 mL, Route: l 17:00: IVP, Drug [place] form: INJ, Q15Min, Dosing Weight 90.909, kg, PRN Hypertensi on, Start date: 04/01/16 12:00:00 CDT, Duration: 3 doses or times, Stop date: 04/02/16 17:00:00 CDT Hydralazine 2016-0 No Notes: Manjinder nasir 9-30 (Same as: l 17:00: Apresoline [place] ) Push over 5 minutes Labetalol 2015-0 No 10 mg, 2 Manjinder nasir 9-30 mL, Route: l 17:00: IVP, Drug [place] form: INJ, Q15Min, Dosing Weight 90.909, kg, PRN Hypertensi on, Start date: 04/01/16 12:00:00 CDT, Duration: 3 doses or times, Stop date: 04/02/16 17:00:00 CDT Hydralazine 2016-0 No Notes: Manjinder nasir 9-30 (Same as: l 17:00: Apresoline [place] ) Push over 5 minutes Labetalol 2016-0 No 10 mg, 2 Manjinder nasir 9-30 mL, Route: l 17:00: IVP, Drug [place] 00 form: INJ, Q15Min, Dosing Weight 90.909, kg, PRN Hypertensi on, Start date: 04/01/16 12:00:00 CDT, Duration: 3 doses or times, Stop date: 04/02/16 17:00:00 CDT Hydralazine No Notes: Manjinder nasir -30 (Same as: l 17:00: Apresoline [place] ) Push over 5 minutes Robaxin No Notes: Memoria -30 (Same l 16:59: as:Robaxin [place] 00 ) Robaxin No Notes: Memoria 9-30 (Same l 16:59: as:Robaxin [place] ) Robaxin No Notes: Memoria 9-30 (Same l 16:59: as:Robaxin Eliot ) Robaxin No Notes: Memoria 9-30 (Same l 16:59: as:Robaxin Eliot ) Robaxin No Notes: Memoria -30 (Same l 16:59: as:Robaxin [place] ) Sodium No 1,000 mL, Memori a Chloride 04-01 Rate: 75 l 0.154 16:58: ml/hr, Eliot MEQ/ML 00 Infuse Injectable over: 13.3 Solution hr, Route: IV, Dosing Weight 90.909 kg, Total Volume: 1,000, Start date: 04/01/16 11:58:00 CDT, Duration: 30 day, Stop date: 05/01/16 11:57:00 CDT Dextrose No 6.25 gm, Memor ia 50% Syringe 04-01 12.5 mL, l 16:58: Route: [place] 00 IVP, Drug Form: INJ, Dosing Weight [...] 0.9% 04-01 Same as: l 16:58: BD [place] 00 Posiflush Sterile Ondansetron No Notes: Manjinder [...] 10 MG Oral hen. (Same Tablet as: [place] 325/10) Morphine No 2 mg, Memoria 04-01 [...] 60 units) Manjinder nasir Insulin, 04-01 WASTE: l Human 100 16:58: F/P - Eliot UNT/ML 00 Black; E - Injectable Municipal Solution Trash Bin Stable for 28 days at room temperatur e Expires in days from ____Date Saline No Notes: [facility]oria Flush 0.9% 04-01 Same as: l 16:58: BD [place] 00 Posiflush Sterile Ondansetron No Notes: Manjinder nasir 04-01 (Same as: l 16:58: Zofran) MEDICATION WASTE Product Size: 4 mg Product Wasted: ___ mg Bisacodyl No Notes: Memori a 04-01 (Same As: l 16:58: Dulcolax, Eliot Bisco-Lax) Acetaminoph No Notes: Do M mehnazria en 325 MG / 04-01 not exceed l Hydrocodone 16:58: 4gm/day of Eliot Bitartrate acetaminop 10 MG Oral hen. (Same Tablet as: [place] 325/10) Morphine No 2 mg, Memoria 04-01 Route: l 16:58: IVP, Q1H, [place] 00 Dosing Weight 90.909, kg, PRN Pain Score 7-10, Start date: 04/01/16 11:58:00 CDT, Duration: 30 day, Stop date: 05/01/16 11:57:00 CDT Sodium No 1,000 mL, Memori a Chloride 04-01 Rate: 75 l 0.154 16:58: ml/hr, [place] MEQ/ML Infuse Injectable over: 13.3 Solution hr, Route: IV, Dosing Weight 90.909 kg, Total Volume: 1,000, Start date: 04/01/16 11:58:00 CDT, Duration: 30 day, Stop date: 05/01/16 11:57:00 CDT Dextrose No 6.25 gm, Memor ia 50% Syringe 04-01 12.5 mL, l 16:58: Route: Eliot 00 IVP, Drug Form: INJ, Dosing Weight [...] l Hydrocodone 16:58: 4gm/day of Eliot Bitartrate acetaminop 10 MG Oral hen. (Same Tablet as: [place] 325/10) Morphine No 2 mg, Memoria 04-01 Route: l 16:58: IVP, Q1H, Dosing Weight 90.909, kg, PRN Pain Score 7-10, Start date: 04/01/16 11:58:00 CDT, Duration: 30 day, Stop date: 05/01/16 11:57:00 CDT Sodium No 1,000 mL, Memori a Chloride 04-01 Rate: 75 l 0.154 16:58: ml/hr, MEQ/ML Infuse Injectable over: 13.3 Solution hr, [...] 10 MG Oral hen. (Same Tablet as: [place] 325/10) Morphine No 2 mg, Memoria 04-01 Route: l 16:58: IVP, Q1H, Dosing Weight 90.909, kg, PRN Pain Score 7-10, Start date: 04/01/16 11:58:00 CDT, Duration: 30 day, Stop date: 05/01/16 11:57:00 CDT Sodium No 1,000 mL, Memori a Chloride 04-01 Rate: 75 l 0.154 16:58: ml/hr, MEQ/ML [...] not exceed l Hydrocodone 16:58: 4gm/day of [place] Bitartrate 00 acetaminop 10 MG Oral hen. (Same Tablet as: [place] 325/10) Morphine No 2 mg, Memoria 04-01 [...] CDT, Stop date: 04/01/16 11:05:00 CDT Ancef 2015-0 No 1 gm, Memoria 930 Route: l 16:05: IVPB, Drug [place] 00 form: INJ, ONCE, Dosing Weight 90.909, kg, Start date: 04/01/16 11:05:00 CDT, Stop date: 04/01/16 11:05:00 CDT Ancef 2016-0 No 1 gm, Memoria 930 Route: l 16:05: IVPB, Drug [place] 00 form: INJ, ONCE, Dosing Weight 90.909, kg, Start date: 04/01/16 11:05:00 CDT, Stop date: 04/01/16 11:05:00 CDT Ancef 2015-0 No 1 gm, Memoria 9 Route: l 16:05: IVPB, Drug [place] 00 form: INJ, ONCE, Dosing Weight 90.909, kg, Start date: 04/01/16 11:05:00 CDT, Stop date: 04/01/16 11:05:00 CDT Ancef 2015-0 No 1 gm, Memoria 9 Route: l 16:05: IVPB, Drug [place] 00 form: INJ, ONCE, Dosing Weight 90.909, kg, Start date: 04/01/16 11:05:00 CDT, Stop date: 04/01/16 11:05:00 CDT bupivacaine 2015- No Notes: Manjinder nasir liposome -30 (Same as: l 15:05: Exparel) NOT FOR [...] liposome 9-30 (Same as: l 15:05: Exparel) Eliot 00 NOT FOR IV use Postoperat willard [...] liposome 9-30 (Same as: l 15:05: Exparel) [place] 00 NOT FOR IV use Postoperat willard [...] liposome 9-30 (Same as: l 15:05: Exparel) Eliot 00 NOT FOR IV use Postoperat willard [...] liposome 9-30 (Same as: l 15:05: Exparel) Eliot 00 NOT FOR IV use Postoperat willard [...] mg]) Ancef 2016-0 No 2 gm, Memoria 9 Route: l 13:15: IVPB, Drug [place] 00 form: INJ, ONCE, Dosing Weight 90.909, kg, Start date: 04/01/16 8:15:00 CDT, Duration: 1 doses or times, Stop date: 04/01/16 8:15:00 CDT, Surgical Prophylaxi s Only; For patients < 120 kg Ancef 2016-0 No 2 gm, Memoria 9 Route: l 13:15: IVPB, Drug [place] 00 form: INJ, ONCE, Dosing Weight 90.909, kg, Start date: 04/01/16 8:15:00 CDT, Duration: 1 doses or times, Stop date: 04/01/16 8:15:00 CDT, Surgical Prophylaxi s Only; For patients < 120 kg Ancef 2016-0 No 2 gm, Memoria 9 Route: l 13:15: IVPB, Drug [place] 00 form: INJ, ONCE, Dosing Weight 90.909, kg, Start date: 04/01/16 8:15:00 CDT, Duration: 1 doses or times, Stop date: 04/01/16 8:15:00 CDT, Surgical Prophylaxi s Only; For patients < 120 kg Ancef 2016-0 No 2 gm, Memoria 930 Route: l 13:15: IVPB, Drug Eliot 00 [...] Rate: 40 l 1,000 mL 11:00: ml/hr, [place] 00 Infuse over: 25 hr, Route: IV, [...] l tablet without Branch esophagitis rOPINIRole Yes [id number] 1mg Take 1 U nivers (REQUIP) 1 5-16 tablet by ity of mg tablet 00:00: mouth 3 [place] 00 (three) Medical times Branch daily. gabapentin Yes [id number] 600mg Take 1 [facility] (NEURONTIN) 5-16 tablet by ity of 600 mg 00:00: mouth 2 [place] tablet 00 (two) Medical times Branch daily. pantoprazol Yes [id number] 40mg Take 1 [facility] e 5-16 tablet by ity of (PROTONIX) 00:00: mouth [place] 40 mg EC 00 daily. Medical tablet Branch rOPINIRole Yes [id number] 1mg Take 1 U nivers (REQUIP) 1 5-16 tablet by ity of mg tablet 00:00: mouth 3 [place] 00 (three) Medical times Branch daily. gabapentin Yes [id number] 600mg Take 1 [facility] (NEURONTIN) 5-16 tablet by ity of 600 mg 00:00: mouth 2 [place] tablet 00 (two) Medical times Branch daily. pantoprazol Yes [id number] 40mg Take 1 [facility] e 5-16 tablet by ity of (PROTONIX) 00:00: mouth [place] 40 mg EC 00 daily. Medical tablet Branch rOPINIRole Yes [id number] 1mg Take 1 [facility] nivers (REQUIP) 1 5-16 tablet by ity of mg tablet 00:00: mouth 3 [place] 00 (three) Medical times Branch daily. gabapentin Yes [id number] 600mg Take 1 [facility] (NEURONTIN) 5-16 tablet by ity of 600 mg 00:00: mouth 2 [place] tablet 00 (two) Medical times Branch daily. pantoprazol Yes [id number] 40mg Take 1 [facility] e 5-16 tablet by ity of (PROTONIX) 00:00: mouth [place] 40 mg EC 00 daily. Medical tablet Branch rOPINIRole Yes [id number] 1mg Take 1 [facility] nivers (REQUIP) 1 5-16 tablet by ity of mg tablet 00:00: mouth 3 [place] 00 (three) Medical times Branch daily. gabapentin Yes [id number] 600mg Take 1 [facility] (NEURONTIN) 5-16 tablet by ity of 600 mg 00:00: mouth 2 [place] tablet 00 (two) Medical times Branch daily. pantoprazol Yes [id number] 40mg Take 1 [facility] e 5-16 tablet by ity of (PROTONIX) 00:00: mouth [place] 40 mg EC 00 daily. Medical tablet Branch rOPINIRole Yes [id number] 1mg Take 1 [facility]ivers (REQUIP) 1 5-16 tablet by ity of mg tablet 00:00: mouth 3 [place] 00 (three) Medical times Branch daily. gabapentin Yes [id number] 600mg Take 1 [facility] (NEURONTIN) 5-16 tablet by ity of 600 mg 00:00: mouth 2 [place] tablet 00 (two) Medical times Branch daily. pantoprazol Yes [id number] 40mg Take 1 [facility] e 5-16 tablet by ity of (PROTONIX) 00:00: mouth [place] 40 mg EC 00 daily. Medical tablet Branch rOPINIRole Yes [id number] 1mg Take 1 [facility] nivers (REQUIP) 1 5-16 tablet by ity of mg tablet 00:00: mouth 3 [place] 00 (three) Medical times Branch daily. gabapentin Yes [id number] 600mg Take 1 [facility] (NEURONTIN) 5-16 tablet by ity of 600 mg 00:00: mouth 2 [place] tablet 00 (two) Medical times Branch daily. pantoprazol 2016- Yes [id number] 40mg Take 1 [facility] e 5-16 tablet by ity of (PROTONIX) 00:00: mouth [place] 40 mg EC 00 daily. Medical tablet Branch rOPINIRole Yes [id number] 1mg Take 1 [facility]ivers (REQUIP) 1 5-16 tablet by ity of mg tablet 00:00: mouth 3 [place] 00 (three) Medical times Branch daily. gabapentin Yes [id number] 600mg Take 1 [facility] (NEURONTIN) 5-16 tablet by ity of 600 mg 00:00: mouth 2 [place] tablet 00 (two) Medical times Branch daily. pantoprazol Yes [id number] 40mg Take 1 [facility] e 5-16 tablet by ity of (PROTONIX) 00:00: mouth [place] 40 mg EC 00 daily. Medical tablet Branch rOPINIRole Yes [id number] 1mg Take 1 [facility] nivers (REQUIP) 1 5-16 tablet by ity of mg tablet 00:00: mouth 3 [place] 00 (three) Medical times Branch daily. gabapentin Yes [id number] 600mg Take 1 [facility] (NEURONTIN) 5-16 tablet by ity of 600 mg 00:00: mouth 2 [place] tablet 00 (two) Medical times Branch daily. pantoprazol Yes [id number] 40mg Take 1 [facility] e 5-16 tablet by ity of (PROTONIX) 00:00: mouth [place] 40 mg EC 00 daily. Medical tablet Branch rOPINIRole Yes [id number] 1mg Take 1 [facility] nivers (REQUIP) 1 5-16 tablet by ity of mg tablet 00:00: mouth 3 [place] 00 (three) Medical times Branch daily. gabapentin Yes [id number] 600mg Take 1 [facility] (NEURONTIN) 5-16 tablet by ity of 600 mg 00:00: mouth 2 [place] tablet 00 (two) Medical times Branch daily. pantoprazol 2015- Yes [id number] 40mg Take 1 [facility] e 5-16 tablet by ity of (PROTONIX) 00:00: mouth [place] 40 mg EC 00 daily. Medical tablet Branch rOPINIRole 2015- Yes [id number] 1mg Take 1 [facility] nivers (REQUIP) 1 5-16 tablet by ity of mg tablet 00:00: mouth 3 [place] 00 (three) Medical times Branch daily. gabapentin 2016- Yes [id number] 600mg Take 1 [facility] (NEURONTIN) 5-16 tablet by ity of 600 mg 00:00: mouth 2 [place] tablet 00 (two) Medical times Branch daily. pantoprazol 2016- Yes [id number] 40mg Take 1 [facility] e 5-16 tablet [...] e 150 MG Nystatin Nystatin No Nystatin [id number] UNIT/GM UNIT/GM UNIT/GM Requip 1 MG Requip [...] Acid 1 MG 1 MG 1 MG [place] 3 [place] 3 No [place] 3 Singulair Singulair No 1{table QD Singulair [...] e 150 MG Nystatin Nystatin No Nystatin [id number] UNIT/GM UNIT/GM UNIT/GM Requip 1 MG Requip [...] Acid 1 MG 1 MG 1 MG [place] 3 [place] 3 No [place] 3 Singulair Singulair No 1{table QD Singulair [...] e 150 MG Nystatin Nystatin No Nystatin 866638 [id number] UNIT/GM UNIT/GM UNIT/GM Requip 1 MG Requip [...] 300 MG 300 MG l 300 MG [place] 3 [place] 3 No [place] 3 Folic Acid Folic Acid No Folic [...] 4 eded} MG Nystatin Nystatin No Nystatin 986971 [id number] UNIT/GM UNIT/GM UNIT/GM traZODone traZODone No traZODone [...] MCG/INH MCG/INH MCG/INH Nystatin Nystatin No Nystatin 818167 154387 [id number] UNIT/GM UNIT/GM UNIT/GM Aspirin Aspirin No Aspirin [...] QD Lipitor 10 MG MG t} MG [place] 3 [place] 3 No [place] 3 metOLazone metOLazone No QD metOLazone 2.5 MG 2.5 MG 2.5 MG Lidocaine 5 Lidocaine 5 No 1{appli TID Lidocaine % % cation_ 5 % as_need ed} Famotidine Famotidine No 1{table QD Famotidine 20 MG 20 MG t_at_be 20 MG dtime} Allopurinol Allopurinol No QD Allopurino 300 MG 300 MG l 300 MG [place] 3 [place] 3 No [place] 3 Singulair Singulair No 1{table QD Singulair 10 MG 10 MG t} 10 MG Breo Breo No Breo Ellipta Ellipta Ellipta 200-25 200-25 200-25 MCG/INH MCG/INH MCG/INH Nystatin Nystatin No Nystatin 206913 930550 [id number] UNIT/GM UNIT/GM UNIT/GM Aspirin Aspirin No Aspirin [...] one 25 MG t} tone 25 MG [place] 3 [place] 3 No [place] 3 metOLazone metOLazone No QD metOLazone 2.5 MG 2.5 MG 2.5 MG Allopurinol Allopurinol No Allopurino 300 MG 300 MG l 300 MG Lidocaine 5 Lidocaine 5 No 1{appli TID Lidocaine % % cation_ 5 % as_need ed} Hydromorpho Hydromorpho No 1{table Hydromorph ne HCl 4 MG ne HCl 4 MG t_as_ne one HCl 4 eded} MG [place] 3 [place] 3 No [place] 3 Bumex 2 MG Bumex 2 MG [...] le 2 % Nystatin Nystatin No Nystatin 618908 [id number] UNIT/GM UNIT/GM UNIT/GM Omeprazole Omeprazole No Omeprazole [...] Metolazone 2.5 MG 2.5 MG 2.5 MG [place] 3 [place] 3 No [place] 3 Ropinirole Ropinirole No Ropinirole HCl 1 [...] Metolazone 2.5 MG 2.5 MG 2.5 MG [place] 3 [place] 3 No [place] 3 Ropinirole Ropinirole No Ropinirole HCl 1 [...] MG HCl 1 MG HCl 1 MG [place] 3 [place] 3 No [place] 3 Famotidine Famotidine No 1{table QD Famotidine [...] MG HCl 1 MG HCl 1 MG [place] 3 [place] 3 No [place] 3 Famotidine Famotidine No 1{table QD Famotidine [...] HCl 60 MG le} HCl 60 MG [place] 3 [place] 3 No [place] 3 Singulair Singulair No 1{table QD Singulair [...] Omeprazole Omeprazole No 40 MG 40 MG [place] 3 [place] 3 No Metoprolol Metoprolol No Succinate Succinate [...] Omeprazole 40 MG 40 MG 40 MG [place] 3 [place] 3 No [place] 3 Metoprolol Metoprolol No Metoprolol Succinate Succinate [...] MG ER 25 MG ER 25 MG [place] 3 [place] 3 No [place] 3 Breo Breo No Breo Ellipta Ellipta [...] Base) Base) (90 Base) MCG/ACT MCG/ACT MCG/ACT [place] 3 [place] 3 No [place] 3 traZODone traZODone No 1{table QD traZODone [...] metOLazone 2.5 MG 2.5 MG 2.5 MG [place] 3 [place] 3 No [place] 3 traZODone traZODone No 1{table QD traZODone [...] metOLazone 2.5 MG 2.5 MG 2.5 MG [place] 3 [place] 3 No [place] 3 traZODone traZODone No 1{table QD traZODone [...] Base) Base) (90 Base) MCG/ACT MCG/ACT MCG/ACT [place] 3 [place] 3 No [place] 3 traZODone traZODone No 1{table QD traZODone [...] Base) Base) (90 Base) MCG/ACT MCG/ACT MCG/ACT [place] 3 [place] 3 No [place] 3 Spironolact Spironolact No 1{table QD Spironolac [...] MG ER 25 MG ER 25 MG [place] 3 [place] 3 No [place] 3 Famotidine Famotidine No 1{table QD Famotidine [...] MG ER 25 MG ER 25 MG [place] 3 [place] 3 No [place] 3 Famotidine Famotidine No 1{table QD Famotidine [...] t} 10 MG Nystatin Nystatin No Nystatin 687409 [id number] UNIT/GM UNIT/GM UNIT/GM Breo Breo No Breo [...] MG ER 25 MG ER 25 MG [place] 3 [place] 3 No [place] 3 Famotidine Famotidine No 1{table QD Famotidine [...] HCl 1 MG Nystatin Nystatin No Nystatin 180914 284154 [id number] UNIT/GM UNIT/GM UNIT/GM traZODone traZODone No 1{table [...] ER 20 MEQ CoQ-10 CoQ-10 No CoQ-10 [place] 3 [place] 3 No [place] 3 Omeprazole Omeprazole No Omeprazole 40 MG [...] HCl 1 MG Nystatin Nystatin No Nystatin 619505 453779 [id number] UNIT/GM UNIT/GM UNIT/GM traZODone traZODone No 1{table [...] ER 20 MEQ CoQ-10 CoQ-10 No CoQ-10 [place] 3 [place] 3 No [place] 3 Omeprazole Omeprazole No Omeprazole 40 MG [...] 600 MG 600 MG t} 600 MG [place] 3 [place] 3 No [place] 3 HYDROmorpho HYDROmorpho No 1{table HYDROmorph ne [...] tone 25 MG Nystatin Nystatin No Nystatin 390991 [id number] [id number] UNIT/GM UNIT/GM UNIT/GM Metoprolol Metoprolol No Metoprolol [...] 600 MG 600 MG t} 600 MG [place] 3 [place] 3 No [place] 3 HYDROmorpho HYDROmorpho No 1{table HYDROmorph ne [...] tone 25 MG Nystatin Nystatin No Nystatin 666323 112212 [id number] UNIT/GM UNIT/GM UNIT/GM Metoprolol Metoprolol No Metoprolol [...] 600 MG 600 MG t} 600 MG [place] 3 [place] 3 No [place] 3 HYDROmorpho HYDROmorpho No 1{table HYDROmorph ne [...] tone 25 MG Nystatin Nystatin No Nystatin 288784 911901 [id number] UNIT/GM UNIT/GM UNIT/GM Metoprolol Metoprolol No Metoprolol [...] Acid 1 MG 1 MG 1 MG [place] 3 [place] 3 No [place] 3 Immunizations Ordered Filled Immunization Date Status Comments [facility] e Immunization Name Name SARS-COV-2 COVID-19 2021-08-13 Completed Unive rsity of VERA/J&J VACCINE 00:00:00 [facility] SARS-COV-2 COVID-19 2021-08-13 Completed Unive rsity of VERA/J&J VACCINE 00:00:00 [facility] SARS-COV-2 COVID-19 2021-08-13 Completed Unive rsity of VERA/J&J VACCINE 00:00:00 [facility] SARS-COV-2 COVID-19 2021-08-13 Completed Unive rsity of VERA/J&J VACCINE 00:00:00 [facility] SARS-COV-2 COVID-19 2021-08-13 Completed Unive rsity of VERA/J&J VACCINE 00:00:00 [facility] SARS-COV-2 COVID-19 2021-08-13 Completed [facility]/J&J VACCINE 00:00:00 [facility] SARS-COV-2 COVID-19 2021-08-13 Completed [facility]/J&J VACCINE 00:00:00 [facility] SARS-COV-2 COVID-19 2021-08-13 Completed [facility]/J&J VACCINE 00:00:00 [facility] SARS-COV-2 COVID-19 2021-08-13 Completed [facility]/J&J VACCINE 00:00:00 [facility] SARS-COV-2 COVID-19 2021-08-13 Completed [facility]/J&J VACCINE 00:00:00 [facility] COVID-19 Vaccine COVID-19 Vaccine 2020-11-14 [facility] ([facility] (Vera) 15:55:00 [facility] COVID-19 Vaccine COVID-19 Vaccine 2020-11-14 Completed [facility] (Vera) (Vera) 15:55:00 [facility] COVID-19 Vaccine COVID-19 Vaccine 2020-11-14 Completed [facility] (Vera) (Vera) 15:55:00 [facility] COVID-19 Vaccine COVID-19 Vaccine 2020-11-14 Completed [facility] (Vera) (Vera) 15:55:00 [facility] COVID-19 Vaccine COVID-19 Vaccine 2020-11-14 Completed [facility] (Vera) (Vera) 15:55:00 [facility] COVID-19 Vaccine COVID-19 Vaccine 2020-11-14 Com[facility]era[facility] (Vera) [facility] [facility] COVID-19 Vaccine COVID-19 Vaccine 2020-11-14 Completed [facility] (Vera) (Vera) 15:55:00 [facility] COVID-19 Vaccine COVID-19 Vaccine 2020-11-14 Completed [facility] (Vera) (Vera) 15:55:00 [facility] COVID-19 Vaccine COVID-19 Vaccine 2020-11-14 Completed [facility] - (Vera) (Vera) 15:55:00 [facility] COVID-19 Vaccine COVID-19 Vaccine 2020-11-14 Completed [facility] - (Vera) (Vera) 15:55:00 [facility] COVID-19 Vaccine COVID-19 Vaccine 2020-11-14 Completed [facility] - (Vera) (Vera) 15:55:00 [facility] COVID-19 Vaccine COVID-19 Vaccine 2020-11-14 Completed [facility] - (Vera) (Vera) 15:55:00 [facility] COVID-19 Vaccine COVID-19 Vaccine 2020-11-14 Completed [facility] - (Vera) (Vera) 15:55:00 [facility] COVID-19 Vaccine COVID-19 Vaccine 2020-11-14 Completed [facility] - (Vera) (Vera) 15:55:00 [facility] COVID-19 Vaccine COVID-19 Vaccine 2020-11-14 Completed [facility] - (Vera) (Vera) 15:55:00 [facility] SARS-COV-2 COVID-19 2020-11-14 Completed Unive rsity of VERA/J&J VACCINE 00:00:00 [facility] SARS-COV-2 COVID-19 2020-11-14 Completed Unive rsity of VERA/J&J VACCINE 00:00:00 [facility] SARS-COV-2 COVID-19 2020-11-14 Completed Unive rsity of VERA/J&J VACCINE 00:00:00 [facility] SARS-COV-2 COVID-19 2020-11-14 Completed Unive rsity of VERA/J&J VACCINE 00:00:00 [facility] SARS-COV-2 COVID-19 2020-11-14 Completed Unive rsity of VERA/J&J VACCINE 00:00:00 [facility] SARS-COV-2 COVID-19 2020-11-14 Completed Unive rsity of VERA/J&J VACCINE 00:00:00 [facility] SARS-COV-2 COVID-19 2020-11-14 Completed Unive rsity of VERA/J&J VACCINE 00:00:00 [facility] SARS-COV-2 COVID-19 2020-11-14 Completed Unive rsity of VERA/J&J VACCINE 00:00:00 [facility] SARS-COV-2 COVID-19 2020-11-14 Completed Unive rsity of VERA/J&J VACCINE 00:00:00 [facility] SARS-COV-2 COVID-19 2020-11-14 Completed Unive rsity of VERA/J&J VACCINE 00:00:00 [facility] Influenza High Dose 2020-07-09 Completed Unive rsity of Quad 00:00:00 [facility] [place] [facility] Influenza High Dose 2020-07-09 Completed Unive rsity of Quad 00:00:00 [place] [facility] Influenza High Dose 2020-07-09 Completed Unive rsity of [place] 00:00:00 [place] [facility] Influenza High Dose 2020-07-09 Completed Unive rsity of Quad 00:00:00 [facility] [place] [facility] Influenza High Dose 2020-07-09 Completed Unive rsity of [place] 00:00:00 [facility] [place] [facility] Influenza High Dose 2020-07-09 Completed Unive rsity of [place] 00:00:00 [facility] [place] [facility] Influenza High Dose 2020-07-09 Completed Unive rsity of Quad 00:00:00 [facility] [place] [facility] Influenza High Dose 2020-07-09 Completed Unive rsity of [place] 00:00:00 [facility] [place] [facility] Influenza High Dose 2020-07-09 Completed Unive rsity of Quad 00:00:00 [facility] Influenza High Dose 2020-07-09 Completed Unive rsity of Quad 00:00:00 [facility] Influenza High Dose 2020-07-09 Completed Unive rsity of Quad 00:00:00 [facility] Influenza High Dose 2018-05-10 Completed Unive rsity of 00:00:00 [facility] Influenza High Dose 2018-05-10 Completed Unive rsity of 00:00:00 [facility] Influenza High Dose 2018-05-10 Completed Unive rsity of 00:00:00 [facility] Influenza High Dose 2018-05-10 Completed Unive rsity of 00:00:00 [facility] Influenza High Dose 2018-05-10 Completed Unive rsity of 00:00:00 [facility] [place] [facility] Influenza High Dose 2018-05-10 Completed Unive rsity of 00:00:00 [facility] Influenza High Dose 2018-05-10 Completed Unive rsity of 00:00:00 [facility] [place] [facility] Influenza High Dose 2018-05-10 Completed Unive rsity of 00:00:00 [facility] [place] [facility] Influenza High Dose 2018-05-10 Completed Unive rsity of 00:00:00 [facility] Influenza High Dose 2018-05-10 Completed Unive rsity of 00:00:00 [facility] Influenza High Dose 2018-05-10 Completed Unive rsity of 00:00:00 [facility] influenza virus 2016-04-02 Completed [facility] vaccine, 14:11:00 inactivated influenza virus 2016-04-02 Completed [facility] vaccine, 14:11:00 inactivated influenza virus 2016-04-02 Completed [facility] vaccine, 14:11:00 inactivated influenza virus 2016-04-02 Completed [facility] vaccine, 14:11:00 inactivated influenza virus 2016-04-02 Completed [facility] vaccine, 14:11:00 inactivated Vital Signs Vital Name Observation Time Observation Value Comments Source height 2022-08-02 09:00:00 62 [in_i] [facility] weight 2022-08-02 09:00:00 240 [lb_av] [facility] temperature 2022-08-02 09:00:00 97.9 [degF] [facility] bmi 2022-08-02 09:00:00 43.89 kg/m2 [facility] blood pressure 2022-08-02 09:00:00 137 mm[Hg] [facility] Spirit - systolic [facility] blood pressure 2022-08-02 09:00:00 75 mm[Hg] [facility] Spirit - diastolic [facility] Systolic blood 2022-05-30 21:41:00 127 mm[Hg] Univer sity [facility] Diastolic blood 2022-05-30 21:41:00 50 mm[Hg] Unive rsity of [facility] Heart rate 2022-05-30 21:41:00 92 /min [facility] Body temperature 2022-05-30 21:41:00 36.56 Cindy [facility] Respiratory rate 2022-05-30 21:41:00 16 /min [facility] Body weight 2022-05-30 21:41:[address] [facility] BMI 2022-05-30 21:41:00 41.78 kg/m2 [facility] Oxygen saturation in 2022-05-30 21:41:00 96 /min [facility] blood by [facility] Pulse oximetry Branch height 2022-05-24 16:30:00 62 [in_i] [facility] weight 2022-05-24 16:30:00 243.6 [lb_av] [facility] temperature 2022-05-24 16:30:00 96.0 [degF] [facility] bmi 2022-05-24 16:30:00 44.55 kg/m2 [facility] oximetry 2022-05-24 16:30:00 97 % [facility] respiratory rate 2022-05-24 16:30:00 17 /min Comm on [facility] blood pressure 2022-05-24 16:30:00 137 mm[Hg] Common [facility] systolic [facility] blood pressure 2022-05-24 16:30:00 75 mm[Hg] [facility] diastolic [facility] Systolic blood 2022-05-18 04:08:00 137 mm[Hg] Univer sity of [facility] Diastolic blood 2022-05-18 04:08:00 78 mm[Hg] Unive rsity of [facility] Heart rate 2022-05-18 04:08:00 100 /min [facility] Body temperature 2022-05-18 04:08:00 36.11 Cindy [facility] Respiratory rate 2022-05-18 04:08:00 20 /min Univ [facility] Oxygen saturation in 2022-05-18 04:08:00 96 /min [facility] Arterial blood by [facility] Pulse oximetry [place] Body height 2022-05-17 23:37:[address] [facility] Body weight 2022-05-17 23:37:[address] [facility] BMI 2022-05-17 23:37:00 41.20 kg/m2 [facility] height 2022-02-21 13:40:00 62 [in_i] [facility] weight 2022-02-21 13:40:00 238 [lb_av] [facility] temperature 2022-02-21 13:40:00 98.3 [degF] Common S pirit [facility] bmi 2022-02-21 13:40:00 43.53 kg/m2 Common S pirit - [facility] blood pressure 2022-02-21 13:40:00 117 mm[Hg] [facility] - systolic [facility] blood pressure 2022-02-21 13:40:00 55 mm[Hg] [facility] - diastolic [facility] height 2022-02-21 13:00:00 62 [in_i] Common [facility] weight 2022-02-21 13:00:00 238 [lb_av] Common [facility] temperature 2022-02-21 13:00:00 98.3 [degF] [facility] bmi 2022-02-21 13:00:00 43.53 kg/m2 [facility] blood pressure 2022-02-21 13:00:00 117 mm[Hg] [facility] - systolic [facility] blood pressure 2022-02-21 13:00:00 55 mm[Hg] [facility] - diastolic [facility] height 2022-01-27 09:40:00 62 [in_i] Common [facility] weight 2022-01-27 09:40:00 232.0 [lb_av] Common [facility] temperature 2022-01-27 09:40:00 98.6 [degF] Common [facility] bmi 2022-01-27 09:40:00 42.43 kg/m2 [facility] Systolic blood 2022-01-24 20:40:00 107 mm[Hg] Univer sity of [facility] Diastolic blood 2022-01-24 20:40:00 46 mm[Hg] Unive rsity of [facility] Heart rate 2022-01-24 20:40:00 95 /min [facility] Body temperature 2022-01-24 20:40:00 36.72 Cindy [facility] Respiratory rate 2022-01-24 20:40:00 16 /min [facility] Body weight 2022-01-24 20:40:00 109.362 kg Universi ty [facility] BMI 2022-01-24 20:40:00 41.38 kg/m2 [facility] Oxygen saturation in 2022-01-24 20:40:00 91 /min [facility] blood by [facility] Pulse oximetry Branch height 2021-04-30 15:20:00 62 [in_i] Common [facility] weight 2021-04-30 15:20:00 232.0 [lb_av] [facility] temperature 2021-04-30 15:20:00 97.0 [degF] [facility] bmi 2021-04-30 15:20:00 42.43 kg/m2 [facility] oximetry 2021-04-30 15:20:00 92 % [facility] respiratory rate 2021-04-30 15:20:00 18 /min Comm on [facility] blood pressure 2021-04-30 15:20:00 110 mm[Hg] Common [facility] - systolic [facility] blood pressure 2021-04-30 15:20:00 70 mm[Hg] Common [facility] - diastolic [facility] height 2021-03-11 15:10:00 62 [in_i] Common [facility] weight 2021-03-11 15:10:00 220 [lb_av] [facility] temperature 2021-03-11 15:10:00 98.6 [degF] [facility] bmi 2021-03-11 15:10:00 40.23 kg/m2 [facility] blood pressure 2021-03-11 15:10:00 136 mm[Hg] Common [facility] - systolic [facility] blood pressure 2021-03-11 15:10:00 71 mm[Hg] [facility] - diastolic [facility] height 2020-11-24 10:00:00 62 [in_i] Common S pirit - [facility] weight 2020-11-24 10:00:00 226.4 [lb_av] [facility] - [facility] temperature 2020-11-24 10:00:00 97.0 [degF] Common S pirit [facility] bmi 2020-11-24 10:00:00 41.4 kg/m2 Common S pirit - [facility] oximetry 2020-11-24 10:00:00 95 % Common S pirit [facility] respiratory rate 2020-11-24 10:00:00 18 /min Comm on [facility] blood pressure 2020-11-24 10:00:00 135 mm[Hg] Common [facility] - systolic [facility] blood pressure 2020-11-24 10:00:00 60 mm[Hg] Common [facility] - diastolic [facility] height 2020-10-19 11:00:00 62 [in_i] [facility] weight 2020-10-19 11:00:00 223 [lb_av] Common S pirit [facility] temperature 2020-10-19 11:00:00 98.6 [degF] [facility] bmi 2020-10-19 11:00:00 40.78 kg/m2 Common S pirit - [facility] blood pressure 2020-10-19 11:00:00 113 mm[Hg] Common [facility] - systolic [facility] blood pressure 2020-10-19 11:00:00 78 mm[Hg] [facility] - diastolic [facility] height 2020-09-17 09:20:00 62 [in_i] Common S pirit - [facility] weight 2020-09-17 09:20:00 245.0 [lb_av] Common [facility] temperature 2020-09-17 09:20:00 97.2 [degF] Common S pirit [facility] bmi 2020-09-17 09:20:00 44.81 kg/m2 Common [facility] oximetry 2020-09-17 09:20:00 97 % Common [facility] respiratory rate 2020-09-17 09:20:00 19 /min Comm on [facility] blood pressure 2020-09-17 09:20:00 135 mm[Hg] [facility] - systolic [facility] blood pressure 2020-09-17 09:20:00 77 mm[Hg] [facility] - diastolic [facility] height 2020-05-07 14:30:00 62 [in_i] Common [facility] weight 2020-05-07 14:30:00 245 [lb_av] [facility] temperature 2020-05-07 14:30:00 97.9 [degF] [facility] bmi 2020-05-07 14:30:00 44.81 kg/m2 [facility] Systolic (mm Hg) 2016-04-06 18:00:00 Manjinder rial [facility] Diastolic (mm Hg) 2016-04-06 18:00:00 Mem orial [facility] Respitory Rate 2016-04-06 18:00:00 Memori al [facility] Respitory Rate 2016-04-06 17:00:00 [facility] Systolic (mm Hg) 2016-04-06 17:00:00 Manjinder rial [facility] Diastolic (mm Hg) 2016-04-06 17:00:00 Mem [facility] Respitory Rate 2016-04-06 16:00:00 Memori [facility] Systolic (mm Hg) 2016-04-06 16:00:00 Manjinder [facility] Diastolic (mm Hg) 2016-04-06 16:00:00 Mem [facility] Temperature Oral (F) 2016-04-06 13:11:00 98.0 F [facility] Temperature Oral (F) 2016-04-06 08:00:00 98.1 F [facility] Temperature Oral (F) 2016-04-06 04:00:00 97.9 F [facility] Heart Rate 2016-04-04 20:00:00 [facility] Heart Rate 2016-04-04 17:35:00 [facility] Heart Rate 2016-04-04 12:58:00 [facility] Weight 2016-04-01 23:43:00 [facility] Height 2016-04-01 11:16:00 157[facility] Calculated 2016-04-01 11:16:00 [facility] Weight 2016-04-01 11:16:00 [facility] Weight 2016-03-28 20:53:00 [facility] BMI Calculated 2016-03-28 20:53:00 [facility] Height 2016-03-28 20:53:00 157.48 cm [facility] Procedures Procedure Date / Time Performing Clinician Source Performed CONSENT/REFUSAL FOR 2022-05-30 21:10:29 Doctor Unassigned, [facility] DIAGNOSIS AND TREATMENT [place] [facility] URINALYSIS 2022-05-18 02:10:00 Shaan Mondragon [facility] BLOOD CULTURE SCREEN 2022-05-18 00:34:00 Shaan Mondragon [facility] BLOOD CULTURE SCREEN 2022-05-18 00:30:00 Shaan Mondragon [facility] COMP. METABOLIC PANEL 2022-05-18 00:30:00 Shaan Mondragon [facility] ([id number]) [facility] CBC WITH DIFF 2022-05-18 00:30:00 Yara, [facility] LACTIC ACID WHOLE BLOOD 2022-05-18 00:30:00 Shaan Mondragon [facility] XR TIBIA FIBULA 2 VW LEFT 2022-05-18 00:25:17 [facility] CONS[facility]REFUSAL FOR 2022-05-17 23:21:05 Doctor Unassigned, [facility] DIAGNOSIS AND TREATMENT [place] [facility] Branch [id number] 2020-09-28 00:00:00 MATVA.01 [facility] Laminectomy with spinal 2016-04-01 05:00:00 Manjinder rial [facility] fusion Cervical [facility] Gall[facility] operation [facility] ermann Laparoscopic adjustable [facility] gastric banding Operation [facility] Shoulder joint operations [facility] Tonsillectomy [facility] Vein reconstruction [facility] Plan of Care Planned Activity Planned Date Details Comments Source Future Scheduled 2021-04-02 Depression screening Uni [facility] Test 00:00:00 (procedure) [code = Medical Branch 892540040] Future Scheduled 2009 Medicare Annual [facility] [place] Test 00:00:00 Wellness Visit Medical [facility] h (procedure) [code = 090083572223371] Future Scheduled 2009 Screening for [facility] Test 00:00:00 osteoporosis Medical Branch (procedure) [code = 193176181] Future Scheduled 2009 PNEUMOCOCCAL VACCINES Un [facility]versity [facility] Test 00:00:00 65+ (1 of 1 - PPSV23) Medica l Branch [code = PNEUMOCOCCAL VACCINES 65+ (1 of 1 - PPSV23)] Future Scheduled 1999 Screening for [facility] Test 00:00:00 malignant neoplasm of Medica l Branch lung (procedure) [code = 323232633] Future Scheduled 1994 [facility]00 Vaccine (SHINGRIX) (1 Medica l Branch of 2) [code = Zoster Recombinant Vaccine (SHINGRIX) (1 of 2)] Future Scheduled 1963 [facility]Tdap[facility] Td [facility] Vaccines (1 - Tdap) Medical Branch [code = DTaP,Tdap,and Td Vaccines (1 - Tdap)] Future Scheduled 1962 Hepatitis C [facility]00 (procedure) [code = Medical Branch [id number]] Future Scheduled 1960 SARS-CoV-2 (COVID-19) [facility]00 Vaccine (1) [code = Medical Branch SARS-CoV-2 (COVID-19) Vaccine (1)] Encounters Start End Encounter Admission Attending Care Care Encounter Source Date/Time Date/Time Type Type Clinicians Facility Department ID 2022-08-[address] [facility] [id number] Common 08:18:00 [facility] [id number] [facility] 2022-08-02 Outpatient Junior [facility] [id number] Common 11:04:01 [facility] [id number] [facility] 2022-07-19 Outpatient Pacheco, [facility]MLC [facility] Common 07:40:00 [place] [id number] [facility] 2021-07-28 Outpatient Pacheco, STLMLC STLC Common 13:47:50 [place] [id number] [facility] 2021-07-28 Outpatient Pacheco, STLMLC STLC Common 13:28:22 [place] [id number] [facility] 2021-07-28 Outpatient Pacheco, STLMLC STLC Common 13:19:50 [place] [id number] [facility] 2021-07-28 Outpatient Pacheco, STLMLC STLC Common 13:06:37 [place] [id number] [facility] 2021-07-28 Outpatient Pacheco, STLC STLC Common 12:53:45 [place] [id number] [facility] 2021-07-28 Outpatient Pacheco, STLMLC [facility] Common 12:53:04 [place] [id number] [facility] 2021-07-28 Outpatient Pacheco, STLC [facility] Common 12:42:16 [place] [id number] [facility] 2021-07-28 Outpatient Pacheco, STLC [facility] Common 12:41:36 [place] [id number] [facility] 2021-07-28 Outpatient Pacheco, STLMLC [facility] Common 12:02:11 [place] [id number] [facility] 2021-07-28 Outpatient Pacheco, STLMLC STLC Common 11:35:17 [place] [id number] [facility] 2021-07-28 Outpatient Pacheco, STLMLC STLC Common 11:26:08 [place] [id number] [facility] 2021-07-28 Outpatient Pacheco, STLC [facility] Common 11:25:35 [place] [id number] [facility] 2021-07-28 Outpatient Pacheco, STLMLC STLC [id number] Common 11:20:54 [place] [id number] [facility] 2021-07-28 Outpatient Pacheco, STLMLC STLMLC [id number] Common 11:16:31 [place] [id number] [facility] 2022-08-30 2022-08-30 Outpatient Merissa BIANCHI [facility] [id number] Univers 15:20:00 15:20:00 TRENTONTODDJEANNE monigomez wright [facility] 2022-08-02 2022-08-02 OFFICE STLMLC STLC [id number] Co mmon 00:00:00 00:00:00 VISIT NEW Spir it PT LEVEL 4 [facility] 2022-07-15 2022-07-15 Outpatient Flores_A VFP VFP [id number] Village 00:00:00 00:00:00 [id number] Family Practic e 2022-07-13 2022-07-13 [facility] [id number] Univers 15:00:00 15:00:00 SWAPNILJEANNE taiwo [facility] 2022-07-13 2022-07-13 (TEL) [facility] STLC [id number] Co mmon 00:00:00 00:00:00 [facility] 2022-07-11 2022-07-11 [facility] [id number] Univers 00:00:00 00:00:00 Layla BALLESTEROS [id number] [id number] [id number] Md dical [facility] 059 Branch BUILDING 2022-05-30 2022-05-30 Outpatient [facility] [id number] Univers 15:20:00 16:08:25 LAYLA maravilla adriana [facility] 2022-05-30 2022-05-30 Office [facility] [id number] Univers 15:20:00 16:08:25 Visit Layla BALLESTEROS [id number] ity of [id number] [phone] Me dical NAL 059 Branch [facility] 2022-05-30 2022-05-30 Orders Doctor GERMAN [id number] Univers 00:00:00 00:00:00 Only Unassigned, YING [id number] ity of [facility] [id number] [place] as [phone] [facility] 009 Branch 2022-05-24 2022-05-24 OFFICE [facility] [id number] Co mmon 00:00:00 00:00:00 VISIT Spirit ESTAB PT - CHI LEVEL 4 [facility] 2022-05-17 2022-05-17 Emergency X Shaan MONDRAGON [facility] ERT [id number] Univers 17:47:00 22:10:00 ity of [facility] 2022-05-17 2022-05-17 Emergency Shaan Mondragon [facility] [id number] Univers 17:47:00 22:10:00 Corina BENDERTIKA [id number] i ty [id number] [id number] [facility] [address] [place] 2022-05-17 2022-05-17 (TEL) [facility] STLC [id number] Co mmon 00:00:00 00:00:00 Spirit - CHI [facility] 2022-04-12 2022-04-12 Cruzito Bianchi [facility] [id number] Univers 00:00:00 00:00:00 Layla BALLESTEROS [id number] ity of [id number] [phone] Me dical NAL 059 [facility] 2022-02-21 2022-02-21 (TEL) [facility] STLC [id number] Co mmon 00:00:00 00:00:00 Spirit - CHI [facility] 2022-02-21 2022-02-21 SUB ANNUAL [facility] [id number] Common 00:00:00 00:00:00 MCR Spirit WELLNESS - CHI VISIT [facility] 2022-02-21 2022-02-21 OFFICE STLMLC STLMLC [id number] Co mmon 00:00:00 00:00:00 VISIT Spirit ESTAB PT - CHI LEVEL 4 [facility] 2022-02-18 2022-02-18 Refpaulo Bianchi, [facility] [id number] 00:00:00 00:00:00 [facility] [id number] ity [facility] [id number] [phone] [facility] NAL [address] [place] [address] 2022-02-10 2022-02-10 (TEL) STLMLC STLMLC [id number] Co mmon 00:00:00 00:00:00 [facility] 2022-02-09 2022-02-09 [facility] [id number] Univers 00:00:00 00:00:00 [facility] [id number] ity [facility] [id number] [id number] [address] 2022-02-09 2022-02-09 (TEL) STLMLC STLMLC [id number] Co mmon 00:00:00 00:00:00 [facility] 2022-02-09 2022-02-09 (TEL) STLMLC STLMLC [id number] Co mmon 00:00:00 00:00:00 [facility] 2022-01-27 2022-01-27 OFFICE STLMLC STLMLC [id number] Co mmon 00:00:00 00:00:00 VISIT EST Spir it PT LEVEL 3 - [facility] 2022-01-26 2022-01-26 (TEL) STLMLC STLMLC [id number] Co mmon 00:00:00 00:00:00 [facility] 2022-01-24 2022-01-24 Tinner Automatic 2, Adc Lab [facility] 1.2.840.114 [id number] Univers 16:15:00 16:30:00 Visit Maksim, Layla BALLESTEROS 350.1.13.10 ity of [place] [id number] Md dical NAL [address] [facility] 2022-01-24 2022-01-24 Outpatient R MAKSIM, [facility] [id number] Univers 16:15:00 16:15:00 LAYLA ity o f [facility] 2022-01-24 2022-01-24 Outpatient R MAKSIM, [facility] [id number] Univers 15:20:00 15:52:53 LAYLA montenegroy o [facility] 2022-01-24 2022-01-24 Office [facility] 1.2.840.114 [id number] Univers 15:20:00 15:52:53 Visit Layla BALLESTEROS 350.1.13.10 ity of [facility] 4.2.7.2.[place] [phone] Md dicnv NAL [address] [facility] 2022-01-24 2022-01-24 Outpatient R MAKSIM, [facility] [id number] Univers 15:20:00 15:20:00 LAYLA montenegroy o [facility] 2022-01-24 2022-01-24 Outpatient R MAKSIM, [facility] [id number] Univers 15:20:00 15:20:00 LAYLA montenegroy o kole [facility] 2021-12-13 2021-12-13 Telephone [facility] 1.2.136.702 [id number] Univers 00:00:00 00:00:00 Layla BALLESTEROS 350.1.13.10 ity of [place] [phone] Md dical NAL [address] [facility] 2021-11-16 2021-11-16 Letter [facility] 1.2.840.114 [id number] Univers 00:00:00 00:00:00 (Out) Marissa BALLESTEROS 350.1.13.10 i ty of [place] [phone] Md dical NAL [address] [facility] 2021-11-16 2021-11-16 Letter [facility] 1.2.840.114 [id number] Univers 00:00:00 00:00:00 (Out) Marissa BALLESTEROS 350.1.13.10 i ty of [place] [phone] Md dical [facility] [address] [facility] 2021-11-11 2021-11-11 Office [facility] 1.2.840.114 [id number] Univers 15:00:00 15:48:22 Visit Cosmo BALLESTEROS 350.1.13.10 i ty of [place] [phone] Md dical NAL [address] [facility] 2021-11-11 2021-11-11 Outpatient R RADHA DEOHGhulam [facility] 10 [id number] Univers 15:00:00 15:48:22 COSMO DE i ty of [facility] 2021-11-11 2021-11-11 Outpatient R RADHA DEOHGhulam [facility] 10 [id number] Univers 15:00:00 15:00:00 COSMO DE i ty [facility] 2021-11-03 2021-11-03 Tinner Automatic Keegan, Aaron Lab Main [facility] 1.2.8 40.114 [id number] Univers 16:15:00 16:30:00 Visit Layla Bianchi 350.1.13.10 ity of [place] [phone] [facility] [address] [facility] 2021-11-03 2021-11-03 Outpatient R MAKSIM [facility] [id number] Univers 16:15:00 16:15:00 LAYLA maravilla o f [facility] 2021-11-03 2021-11-03 Orders Doctor GERMAN 1.2.840.114 [id number] Univers 00:00:00 00:00:00 Only Unassigned, YING 350.1.13.10 ity of [place] [facility] 4.2.7.2.686 [place] as [phone] [address] 2021-11-02 2021-11-02 Ancillary Therapist, [facility] Pulmonary [facility] 1.2.840.114 [id number] Univers 15:00:00 16:00:00 Visit SantanaMasoud forbes FAVIAN 350.1.13. 10 ity of [place] [phone] [address] 2021-11-02 2021-11-02 Ancillary Therapist, [facility] Pulmonary [facility] 1.2.840.114 [id number] Univers 15:00:00 16:00:00 Visit SantanaMasoud forbes FAVIAN 350.1.13. 10 ity of [place] [phone] [address] 2021-11-02 2021-11-02 Outpatient R HECTOR [facility] [id number] Univers 15:00:00 15:00:00 MASOUD gomez [facility] 2021-11-02 2021-11-02 Outpatient R HECTOR [facility] [id number] Univers 15:00:00 15:00:00 MASOUD [facility] 2021-10-28 2021-10-28 Ancillary Therapist, [facility] Pulmonary [facility] 1.2.840.114 [id number] Univers 15:00:00 16:00:00 Visit SantanaMasoud frausto FAVIAN 350.1.13. 10 ity of [place] [phone] [address] 2021-10-28 2021-10-28 Outpatient R HECTOR [facility] [id number] Univers 15:00:00 15:00:00 MASOUD [facility] 2021-10-26 2021-10-26 Ancillary Therapist, [facility] Pulmonary [facility] 1.2.840.114 [id number] Univers 15:00:00 16:00:00 Visit SantanaMasoud forbes FAVIAN 350.1.13. 10 ity of [place] [phone] [address] 2021-10-26 2021-10-26 Outpatient R HECTOR [facility] [id number] Univers 15:00:00 15:00:00 MASOUD maravilla [facility] 2021-10-25 2021-10-25 Outpatient R MAKSIM [facility] [id number] Univers 15:00:00 15:41:05 LAYLA maravilla o f [facility] 2021-10-25 2021-10-25 Office Maksim, [facility] 1.2.840.114 [id number] Univers 15:00:00 15:41:05 Visit Layla BALLESTEROS 350.1.13.10 ity of [place] [phone] Md dical NAL [address] [facility] 2021-10-25 2021-10-25 Outpatient R MAKSIM [facility] [id number] Univers 15:00:00 15:00:00 LAYLA taiwo wright kole [facility] 2021-10-22 2021-10-25 Ancillary Therapist, Adc Pulmonary [facility] 1.2.840.114 [id number] Univers 15:00:00 10:35:34 Visit Masoud Santana 350.1.13. 10 ity [facility] [place].2.[place] [phone] Md dical NAL [address] [facility] 2021-10-22 2021-10-25 Outpatient Merissa SANTANA [facility] [id number] Univers 15:00:00 10:35:34 MASOUD maravilla [facility] 2021-10-22 2021-10-22 Outpatient R HECTOR [facility] [id number] Univers 15:00:00 15:00:00 MASOUD maravilla [facility] 2021-10-22 2021-10-22 Outpatient R HECTOR [facility] [id number] Univers 15:00:00 15:00:00 MASOUD maravilla [facility] 2021-10-22 2021-10-22 Orders Doctor PORTER 1.2.840.114 [id number] Univers 00:00:00 00:00:00 Only Unassigned, YING 350.1.13.10 ity of [place] [facility] 4.2.7.2.686 [place] [phone] [address] 2021-10-21 2021-10-21 Ancillary Therapist, Adc Pulmonary [facility] 1.2.840.114 [id number] Univers 15:00:00 16:00:00 Visit Masoud Santana 350.1.13. 10 ity of [facility] 4.2.7.2.[place] [phone] Md dical [address] 2021-10-21 2021-10-21 [facility] [id number] Univers 15:00:00 15:00:00 MASOUD itgomez [facility] 2021-10-21 2021-10-21 Orders Doctor PORTER 1.2.840.114 [id number] Univers 00:00:00 00:00:00 Only Unassigned, YING 350.1.13.10 ity of [place] [facility] 4.2.7.2.686 [place]anner as [phone] [address] 2021-10-19 2021-10-19 Orders Doctor PORTER 1.2.840.114 [id number] Univers 00:00:00 00:00:00 Only Unassigned, YING 350.1.13.10 ity of [place] [facility] 4.2.7.2.686 [place] as [phone] [address] 2021-10-13 2021-10-13 Orders Doctor PORTER 1.2.840.114 [id number] Univers 00:00:00 00:00:00 Only Unassigned, YING 350.1.13.10 ity of [place] [facility] 4.2.7.2.686 [place] as [phone] [address] 2021-10-12 2021-10-12 Ancillary Therapist, Adc Pulmonary [facility] 1.2.840.114 [id number] Univers 15:00:00 16:00:00 Visit Masoud Santana 350.1.13. 10 ity of [facility] 4.2.7.2.[place] [phone] Md dical NAL [address] [place] [address] 2021-10-12 2021-10-12 [facility] [id number] Univers 15:00:00 15:00:00 MASOUD taiwo [facility] 2021-10-08 2021-10-08 Ancillary Therapist, [facility] Pulmonary [facility] 1.2.840.114 [id number] Univers 13:00:00 14:00:00 Visit Hector Masoud BALLESTEROS 350.1.13. 10 ity of [facility] 4.2.7.2.[place] [id number] [address] 2021-10-08 2021-10-08 [facility] [id number] Univers 13:00:00 13:00:00 MASOUD maravilla [facility] 2021-10-08 2021-10-08 Orders Doctor PORTER 1.2.840.114 [id number] Univers 00:00:00 00:00:00 Only Unassigned, YING 350.1.13.10 ity of [place] [facility] 4.2.7.2.686 [place] as [phone] [address] 2021-10-05 2021-10-05 Ancillary Therapist, [facility] Pulmonary [facility] 1.2.840.114 [id number] Univers 15:00:00 16:00:00 Visit Masoud Santana 350.1.13. 10 ity of [facility] 4[place]2.7.2.[place] [phone] [address] 2021-10-05 2021-10-05 [facility] [id number] Univers 15:00:00 15:00:00 MASOUD maravilla [facility] 2021-10-05 2021-10-05 Orders Doctor PORTER 1.2.840.114 [id number] Univers 00:00:00 00:00:00 Only Unassigned, YING 350.1.13.10 ity of [place] [facility] 4.2.7.2.686 [place] [id number] [address] 2021-09-30 2021-09-30 [facility] [id number] Univers 15:00:00 15:00:00 MASOUD maravilla [facility] 2021-09-302021-09-30 Telephone [facility] 1.2.589.318 [id number] Univers 00:00:00 00:00:00 Marissa C [place] 350.1.13.10 i ty of [facility] 4.2.7.[place] [id number] [address] 2021-09-29 2021-09-29 Telephone [facility] 1.2.026.875 [id number] Univers 00:00:00 00:00:00 Marissa C [place] 350.1.13.10 i ty of [facility] 4.2.7.2.[place] [id number] [address] 2021-09-28 2021-09-28 Outpatient R HECTOR [facility] [id number] Univers 15:00:00 15:00:00 [facility] 2021-09-23 2021-09-23 [facility] [id number] Univers 15:00:00 16:23:10 [facility] 2021-09-23 2021-09-23 Ancillary Therapist, [facility] Pulmonary [facility] 1.2.840.114 [id number] Univers 15:00:00 16:23:10 Visit Masoud Santana 350.1.13. 10 ity of [place] [id number] [address] 2021-09-23 2021-09-23 Ancillary Therapist, [facility] Pulmonary [facility] 1.2.840.114 [id number] Univers 15:00:00 16:23:10 Visit Masoud Santana 350.1.13. 10 ity of [place].2.[place] [id number] [address] 2021-09-23 2021-09-23 Outpatient Merissa SANTANA [facility] [id number] Univers 15:00:00 16:23:10 MASOUD [facility] 2021-09-21 2021-09-22 Ancillary Therapist, [facility] Pulmonary [facility] 1.2.840.114 [id number] [facility] 15:00:00 10:06:36 Visit Masoud Santana 350.1.13. 10 ity of [facility] 4.2.7.2.[place] [id number] Md dical [address] 2021-09-21 2021-09-22 [facility] [id number] Univers 15:00:00 10:06:36 MASOUD [facility] 2021-09-21 2021-09-21 Ancillary Therapist, [facility] Pulmonary [facility] 1.2.840.114 [id number] [facility] 15:00:00 16:00:00 Visit Masoud Santana 350.1.13. 10 ity of [place] [id number] [address] 2021-09-16 2021-09-16 [facility] [id number] [facility] 15:00:00 18:13:11 MASOUD [facility] 2021-09-16 2021-09-16 Ancillary Therapist, [facility] Pulmonary [facility] 1.2.840.114 [id number] [facility] 15:00:00 18:13:11 Visit Masoud Santana 350.1.13. 10 ity of [place] [phone] [address] 2021-09-16 2021-09-16 Orders Doctor GERMAN 1.2.840.114 [id number] Univers 00:00:00 00:00:00 Only Unassigned, YING 350.1.13.10 ity of [place] [facility] 4.2.7.2.686 [place] as [id number] [address] 2021-09-16 2021-09-16 Telephone [facility] 1.2.296.686 [id number] Univers 00:00:00 00:00:00 Cosmo BALLESTEROS 350.1.13.10 i ty of [facility] 4.2.7.2.[place] [id number] Me dical NAL [address] [facility] 2021-09-16 2021-09-16 Telephone [facility] 1.2.687.497 [id number] Univers 00:00:00 00:00:00 Cosmo BALLESTEROS 350.1.13.10 i ty of [place]2.[place] [id number] [facility] [address] [place] [address] 2021-09-14 2021-09-14 Ancillary Therapist, Adc Pulmonary [facility] 1.2.840.114 [id number] Univers 15:00:00 16:31:27 Visit Masoud Santana 350.1.13. 10 ity of [place]2.[place] [phone] [facility] [address] [facility] 2021-09-14 2021-09-14 Outpatient Merissa SANTANA [facility] [id number] Univers 15:00:00 15:00:00 MASOUD maravilla [facility] 2021-09-09 2021-09-09 Telephone [facility] 1.2.133.630 [id number] Univers 00:00:00 00:00:00 Marissa BALLESTEROS 350.1.13.10 i ty of [place].2.[place] [id number] [address] 2021-09-08 2021-09-08 Orders Doctor PORTER 1.2.840.114 [id number] Univers 00:00:00 00:00:00 Only Unassigned, YING 350.1.13.10 ity of [place] [facility] 4.2.7.2.686 [place] [phone] [address] 2021-09-07 2021-09-07 Outpatient Merissa SANTANA [facility] [id number] Univers 15:00:00 17:10:59 MASOUD maravilla [facility] 2021-09-07 2021-09-07 Ancillary Therapist, [facility] Pulmonary [facility] 1.2.840.114 [id number] Univers 15:00:00 17:10:59 Visit Masoud Santana 350.1.13. 10 ity of [place].2.[place] [id number] Md dic[address] 2021-08-31 2021-08-31 Telephone Robin [facility] 1.2.847.413 [id number] Univers 00:00:00 00:00:00 Marissa C [place] 350.1.13.10 i ty of [facility] 4.2.7.2.[place] [id number] [address] 2021-08-30 2021-08-30 Outpatient R HECTOR [facility] [id number] Univers 13:00:00 13:21:59 MASOUD ity [facility] 2021-08-30 2021-08-30 Ancillary Therapist, Adc Pulmonary [facility] 1.2.840.114 [id number] Univers 13:00:00 13:21:59 Visit Masoud Santana 350.1.13. 10 ity of [place] 4[place].2.[place] [id number] [address] 2021-08-30 2021-08-30 Orders Doctor GERMAN 1.2.840.114 [id number] Univers 00:00:00 00:00:00 Only Unassigned, YING 350.1.13.10 ity of [place] [facility] 4.2.7.2.686 [place] [id number] [address] 2021-08-23 2021-08-23 Telephone Robin [facility] 1.2.491.471 [id number] Univers 00:00:00 00:00:00 Marissa C [place] 350.1.13.10 i ty of [place] 4.[place].7.2.[place] [id number] Md dic[address] 2021-08-19 2021-08-19 Telephone [facility]AD[facility] 1.2.871.541 [id number] Univers 00:00:00 00:00:00 Marissa C [place] 350.1.13.10 i ty of [place] 4.[place].7.2.[place] [id number] [address] 2021-08-13 2021-08-13 Outpatient R PHONG [facility] [id number] Univers 14:30:00 14:30:00 NARENDRA maravilla [facility] 2021-08-13 2021-08-13 Imm/Inj Nurse, Adc Pob Immunization [facility] 1.2.840.114 [id number] Univers 14:30:00 14:30:00 Visit Narendra Darling 350.1.13 .10 ity [facility] 4[place]2.7.2.[place] [id number] Md dical NAL [address] [facility] 2021-08-13 2021-08-13 Outpatient R PHONG [facility] [id number] Univers 14:30:00 14:25:41 NARENDRA gomez [facility] 2021-08-13 2021-08-13 Outpatient R COSMO DE [facility] 10 [id number] Univers 13:00:00 14:15:10 COSMO DE i ty [facility] 2021-08-13 2021-08-13 Office [facility] 1.2.840.114 [id number] Univers 13:00:00 14:15:10 Visit Cosmo BALLESTEROS 350.1.13.10 i ty [facility] 4[place]2.7.2.[place] [id number] Md dical NAL [address] [facility] 2021-08-04 2021-08-04 Outpatient R COSMO DE [facility] 10 [id number] Univers 09:16:54 23:59:00 COSMO DE i ty [facility] 2021-08-04 2021-08-04 [facility] 1.2.840.114 [id number] Univers 09:16:54 23:59:00 Encounter Shiwan SPECIALTY 350.1.13.10 ity of [facility] 4[place]2.7.2.[place] AT [phone] Md dical VICTORY 805 [facility] 2021-08-04 2021-08-04 [facility] 1.2.840.114 [id number] Univers 09:16:31 23:59:00 Encounter Shiwan SPECIALTY 350.1.13.10 ity of [place].2.[place] [id number] Md jose PHILLIPSY 805 [facility] 2021-07-23 2021-07-23 Telephone Jerilyn [facility] 1.2.619.042 [id number] Univers 00:00:00 00:00:00 Cosmo BENDERTON 350.1.13.10 i ty of [place] 4[place].2.[place] [id number] Md dical NAL [address] [facility] 2021-06-17 2021-06-17 Tinner Automatic Therapist, Adc Respiratory [facility] 1.2.840.114 [id number] Univers 14:00:00 15:30:00 Visit Masoud Santana 350.1.13. 10 ity of [place].7.2.[place] [id number] [facility] [address] 2021-06-17 2021-06-17 Outpatient R HECTOR [facility] [id number] Univers 14:00:00 14:00:00 MASOUD ity of [facility] 2021-06-17 2021-06-17 Orders RODERICK De 1.2.542.977 [id number] Univers 00:00:00 00:00:00 Only [facility] 350.1.13.10 i ty of [facility] [place]7.2.[place] [id number] [facility] [address] [place] 2021-06-02 2021-06-02 Cruzito Bianchi [facility] 1.2.840.114 [id number] Univers 00:00:00 00:00:00 Layla BALLESTEROS 350.1.13.10 ity of [place].2.[place] [id number] Md jose NAL [address] [facility] 2021-05-21 2021-05-21 (TEL) STLC STLC [id number] Co mmon 00:00:00 00:00:00 [facility] 2021-05-17 2021-05-17 Cruzito Bianchi [facility] 1.2.840.114 [id number] Univers 00:00:00 00:00:00 Layla BALLESTEROS 350.1.13.10 ity of [facility] 4.2.7.2.[place] [id number] Md dical NAL [address] [facility] 2021-05-14 2021-05-14 (TEL) STLMLC STLMLC [id number] Co mmon 00:00:00 00:00:00 [facility] 2021-05-14 2021-05-14 Refill [facility]simAD[facility] 1.2.840.114 [id number] Univers 00:00:00 00:00:00 Swapniljeanne BENDERTIKA 350.1.13.10 ity of [place].2.[place] [id number] Md dic[address] 2021-05-13 2021-05-13 Outpatient R COSMO DE [facility] 10 [id number] Univers 14:30:00 15:10:14 COSMO DE i ty of [facility] 2021-05-13 2021-05-13 Office Jer[facility] 1.2.840.114 [id number] Univers 14:26:13 15:10:14 Visit Cosmo BALLESTEROS 350.1.13.10 i ty of [place].2.[place] [id number] Md dicnv NAL [address] [facility] 2021-05-11 2021-05-11 Refpaulo BianchiADVANCED [facility] 1.2.840.114 [id number] Univers 00:00:00 00:00:00 Trentontoddjeanne BALLESTEROS 350.1.13.10 ity of [facility] 4.2.7.2.[place] [phone] Md dical NAL [address] [place] [address] 2021-04-30 2021-04-30 OFFICE STLMLC STLMLC [id number] Co mmon 00:00:00 00:00:00 VISIT EST Spir it PT LEVEL 3 - [facility] 2021-04-26 2021-04-26 Office Maksim [facility] 1.2.840.114 [id number] Univers 15:19:51 16:02:28 Visit Trentondev Ballesteros 350.1.13.10 ity of [place].2.[place] [phone] Md dicmicki nal [address] [place] [address] 2021-04-26 2021-04-26 [facility] [id number] Univers 15:20:00 15:20:00 SWAPNILJEANNE ity o f [facility] 2021-04-26 2021-04-26 Orders Doctor GERMAN 1.2.840.114 [id number] Univers 00:00:00 00:00:00 Only Unassigned, YING 350.1.13.10 ity of [place] [facility] 4.2.7.2.686 Tanner as [phone] [address] 2021-04-12 2021-04-12 Telephone [facility] [id number] Univers 00:00:00 00:00:00 Layla Favian [id number] ity of [place] [phone] Md jose guzman [address] [place] [address] 2021-04-07 2021-04-07 Refill [facility] [id number] Univers 00:00:00 00:00:00 Layla [place] [id number] ity [id number] [phone] Md jose guzman [address] [place] [address] 2021-04-02 2021-04-02 (TEL) [facility] [id number] Co mmon 00:00:00 00:00:00 [facility] 2021-03-30 2021-03-30 (TEL) [facility] [id number] Co mmon 00:00:00 00:00:00 [facility] 2021-03-29 2021-03-29 Orders Doctor GERMAN [id number] Univers 00:00:00 00:00:00 Only Unassigned, YING [id number] ity of [place] [facility] [id number] [place] [phone] [place] [address] [address] 2021-03-24 2021-03-24 (TEL) STLMLC STLMLC [id number] Co mmon 00:00:00 00:00:00 [facility] 2021-03-17 2021-03-17 Refpaulo [facility]AD[facility] [id number] [id number] Univers 00:00:00 00:00:00 Layla [place] [id number] itgomez [facility] [id number] [phone] [facility] [address] [facility] 2021-03-11 2021-03-11 OFFICE STLMLC STLMLC [id number] Co mmon 00:00:00 00:00:00 VISIT Spirit ESTAB PT - CHI LEVEL 4 [facility] 2021-03-04 2021-03-04 Outpatient COSMO MONTES [facility] 10 [id number] Univers 15:00:00 15:00:[address] [facility] 2021-02-22 2021-02-22 (TEL) STLMLC STLMLC [id number] Co mmon 00:00:00 00:00:00 [facility] 2020-12-10 2020-12-10 (TEL) STLMLC STLMLC [id number] Co mmon 00:00:00 00:00:00 [facility] 2020-12-02 2020-12-02 Outpatient Merissa BIANCHI [facility] [id number] Univers 14:20:00 14:20:00 LAYLA maravilla o f [facility] 2020-11-26 2020-11-26 (TEL) STLMLC STLMLC [id number] Co mmon 00:00:00 00:00:00 [facility] 2020-11-24 2020-11-24 OFFICE STLMLC STLMLC [id number] Co mmon 00:00:00 00:00:00 VISIT EST Spir it PT LEVEL 3 - [facility] 2020-10-30 2020-10-30 Outpatient R DE, [facility] 10 [id number] Univers 15:30:00 15:30:00 COSMO DE i ty [facility] 2020-10-19 2020-10-19 OFFICE STLMLC STLMLC [id number] Co mmon 00:00:00 00:00:00 VISIT Mike MIGUEL PT - CHI LEVEL 4 [facility] 2020-10-08 2020-10-08 Outpatient R COSMO DE [facility] 10 [id number] Univers 15:30:00 15:30:00 COSMO DE i ty [facility] 2020-10-01 2020-10-01 Inpatient GAIL BenderTO HCATO [id number] [facility] 07:00:11 07:00:11 Wilver 13 [facility] 2020-09-30 2020-09-30 Outpatient GAIL BenderTO HCATO [id number] [facility] 08:16:19 08:16:19 Wilver 68 [facility] 2020-09-24 2020-09-24 Letter GERMAN Diaz [id number] 00:00:00 00:00:00 (Out) Aliyah HE 350.1.13.10 [facility] 4.2.7.2.686 [id number] 019 2020-09-24 2020-09-24 Telephone Maksim, [facility] [id number] 00:00:00 00:00:00 Layla Ballesteros 350.1.13.10 [place] 4.2.7.2.686 Professio [phone] nal [address]59 [facility] 2020-09-23 2020-09-23 Laboratory Only, [facility] [id number] 13:54:59 14:09:59 Only Test Favian 350.1.13.10 [place] 4.2.7.2.686 [place] [phone] [facility] 2020-09-23 2020-09-23 Outpatient R [facility] [id number] Univers 13:45:00 13:45:00 ity of [facility] 2020-09-21 2020-09-21 (TEL) STLC STLMLC [id number] Co mmon 00:00:00 00:00:00 Spirit - [facility] 2020-09-17 2020-09-17 OFFICE STLMLC STLMLC [id number] Co mmon 00:00:00 00:00:00 VISIT Mike MIGUEL PT - CHI LEVEL 4 [facility] 2020-09-16 2020-09-16 Outpatient R [facility], [facility] [id number] Univers 14:00:00 23:59:00 SWAPNILJEANNE taiwo o f [facility] 2020-09-16 2020-09-16 Outpatient R [facility], [facility] [id number] Univers 14:00:00 14:00:00 LAYLA maravilla o f [facility] 2020-09-15 2020-09-15 Orders Doctor GERMAN 1.2.840.114 [id number] 00:00:00 00:00:00 Only UnassignedYING 350.1.13.10 [facility] 4.2.7.2.686 [id number] 009 2020-09-14 2020-09-14 Telephone [facility] [id number] 00:00:00 00:00:00 Layla Ballesteros 350.1.13.10 [place] 4.2.7.2.686 Professio [id number] [address] 2020-09-14 2020-09-14 Orders Doctor GERMAN 1.2.840.114 [id number] 00:00:00 00:00:00 Only UnassignedYING 350.1.13.10 [facility] 4.2.7.2.686 [id number] 009 2020-09-10 2020-09-10 (TEL) STLMLC STLMLC [id number] Co mmon 00:00:00 00:00:00 Spirit - [facility] 2020-09-09 2020-09-09 Outpatient YASH Atkinson [id number] [facility] 18:14:00 18:14:00 Wilver Adkins [facility] 2020-09-01 2020-09-01 Office [facility] 1.2.840.114 [id number] 14:21:14 15:04:24 Visit Layla Ballesteros 350.1.13.10 [place] 4.2.7.2.686 [facility] [phone] [facility] 059 Building 2020-09-01 2020-09-01 Outpatient R MAKSIM [facility] [id number] Univers 14:20:00 14:20:00 SWAPNILJEANNE taiwo wright kole [facility] 2020-07-09 2020-07-09 Outpatient R RADHA DEOHGhulam [facility] 10 [id number] Univers 15:20:00 15:20:00 COSMO DE i ty [facility] 2020-06-02 2020-06-02 Outpatient R MAKSIM [facility] [id number] Univers 14:00:00 14:00:00 LAYLA taiwo adriana [facility] 2020-05-07 2020-05-07 OFFICE STLMLC STLMLC [id number] Co mmon 00:00:00 00:00:00 VISIT [facility] PT - [facility] LEVEL 4 [facility] 2020-04-24 2020-04-24 Outpatient R LENNOX YARED [facility] [id number] Univers 13:00:00 13:00:00 [facility] 2020-04-13 2020-04-13 (TEL) STLMLC STLMLC [id number] Co mmon 00:00:00 00:00:00 [facility] 2020-04-02 2020-04-02 Outpatient R COSMO DE [facility] 10 [id number] Univers 14:20:00 14:20:00 COSMO DE i ty [facility] 2020-03-16 2020-03-16 Outpatient [place] Makit [id number] Common 10:52:00 10:52:00 ePub [facility] it Drive Family [facility] Family Medicine [facility] 2020-03-13 2020-03-13 Outpatient R MAKSIM [facility] [id number] Univers 16:30:00 16:30:00 TRENTONTODDJEANNE taiwo adriana [facility] 2020-03-12 2020-03-12 Outpatient R [facility] [id number] Univers 16:00:00 16:00:00 ity [facility] 2020-03-06 2020-03-06 Out[facility] [id number] Common 10:09:00 10:09:00 [address] [place] [address] Spir [address] Drive [facility] 2020-03-05 2020-03-05 Outpatient R [facility] [id number] Univers 16:00:00 16:00:00 [facility] 2020-03-05 2020-03-05 Outpatient [facility] [id number] Common 11:51:00 11:51:00 [address] [place] [address] Spir [address] Drive [facility] 2020-03-03 2020-03-03 [facility] [id number] Univers 14:00:00 14:00:00 SWAPNILJUN ity o f [facility] 2020-02-11 2020-02-11 Outpatient R [facility] [id number] Univers 16:00:00 16:00:00 [facility] 2020-02-05 2020-02-05 Outpatient [facility] [id number] Common 13:00:00 13:00:00 [address] [place] [address] Sp[address] Drive [facility] 2020-02-05 2020-02-05 Outpatient [facility] [id number] Common 13:00:00 13:00:00 [place] [address] Spir [address] Drive [facility] 2020-01-09 2020-01-09 Outpatient [facility] [id number] Common 14:26:00 14:26:00 [facility] 2020-01-06 2020-01-06 Outpatient [facility] [id number] Common 15:48:00 15:48:00 [address] [place] [address] Sp[address] Drive [facility] 2019-12-04 2019-12-04 Outpatient [facility] [id number] Common 07:12:00 07:12:00 [address] [place] [address] Spir [address] Drive [facility] 2019-12-02 2019-12-02 Outpatient R MAKSIM, [facility] [id number] Univers 15:20:00 15:20:00 QIANGJUN ity o f [facility] 2019-11-22 2019-11-22 Outpatient [facility] [id number] Common 09:19:00 09:19:00 [address] [place] [address] Sp[address] Drive [facility] 2019-11-01 2019-11-01 Outpatient [facility] [id number] Common 11:46:00 11:46:00 [address] [place] [address] Spir [address] Drive [facility] 2019-10-30 2019-10-30 Outpatient Merissa BIANCHI [facility] [id number] Univers 11:00:00 11:00:00 QIANGJUN ity o f [facility] 2019-10-29 2019-10-29 Outpatient [facility] [id number] Common 11:16:00 11:16:00 [address] [place] [address] Sp[address] Drive [facility] 2019-10-18 2019-10-18 Outpatient [facility] [id number] Common 09:30:00 09:30:00 [address] [place] [address] Sp[address] Drive [facility] 2019-10-17 2019-10-17 Outpatient [facility] [id number] Common 10:49:00 10:49:00 [address] [place] [address] Sp[address] Drive [facility] 2019-10-04 2019-10-04 Outpatient [facility] [id number] Common 10:26:00 10:26:00 [address] [place] [address] Sp[address] Drive [facility] 2019-10-03 2019-10-03 Outpatient [facility] [id number] Common 13:45:00 13:45:00 [address] [place] [address] Sp[address] Drive [facility] 2019-10-02 2019-10-02 Outpatient [facility] [id number] Common 10:11:00 10:11:00 [address] [facility] [address] Spir [address] Road [facility] 2019-10-01 2019-10-01 Outpatient Merissa BIANCHI [facility] [id number] Univers 13:00:00 13:00:00 QIANGJUN ity o f [facility] 2019-09-20 2019-09-20 Outpatient [facility] [id number] Common 15:05:00 15:05:00 [address] [place] [address] Sp[address] Drive [facility] 2019-09-12 2019-09-12 Outpatient [facility] [id number] Common 11:15:00 11:15:00 [address] [place] [address] Sp[address] [facility] 2019-09-09 2019-09-09 Outpatient R MAKSIM, [facility] [id number] Univers 15:00:00 15:00:00 QIANGJUN ity o f [facility] 2019-08-30 2019-08-30 Outpatient [facility] [id number] Common 15:13:00 15:13:00 [address] [place] [address] Sp[address] [facility] 2019-08-28 2019-08-28 Outpatient R MAKSIM, [facility] [id number] Univers 14:00:00 14:00:00 QIANGJUN ity o f [facility] 2019-08-05 2019-08-05 Outpatient R MAKSIM, [facility] [id number] Univers 15:52:15 23:59:00 QIANGJUN ity o f [facility] 2019-06-07 2019-06-07 Outpatient [facility] [id number] Common 15:51:00 15:51:00 [address] [place] [address] Sp[address] [facility] 2019-04-01 2019-04-01 Outpatient [facility] [id number] Common 15:30:00 15:30:00 [address] [place] [address] Sp[address] [facility] 2019-02-27 2019-02-27 Telephone [facility] [id number] Univers 00:00:00 00:00:00 Qiatoddjun [place] 350.1.13.10 ity [place] 4[place]2.7.2.[place] [id number] [address] 2019-02-05 2019-02-05 Refill [facility] 1.2.840.114 [id number] Univers 00:00:00 00:00:00 Qiangjun [place] 350.1.13.10 ity [place] 4[place].2.[place] [phone] Md dical nal 059 [address] Building 2019-01-28 2019-01-28 Outpatient [facility] [id number] Common 13:59:00 13:59:00 [address] [place] [address] Sp[address] [facility] 2019-01-25 2019-01-25 Orders Doctor GERMAN 1.2.840.114 [id number] Univers 00:00:00 00:00:00 Only Unassigned, YING 350.1.13.10 ity of [place] [facility] 4.2.7.2.686 [place] as [id number] [facility] [address] 2019-01-12 2019-01-12 Outpatient [facility] [id number] Common 10:26:00 10:26:00 [address] [place] [address] Sp[address] [facility] 2018-12-19 2018-12-19 Outpatient [facility] [id number] Common 11:30:00 11:30:00 [address] [place] [address] Sp[address] [facility] 2018-11-12 2018-11-12 Outpatient [facility] [id number] Common 11:20:00 11:20:00 [address] [place] [address] Sp[address] [facility] 2018-09-26 2018-09-26 Outpatient [facility] [id number] Common 15:59:00 15:59:00 [address] [place] [address] Sp[address] [facility] 2018-08-06 2018-08-06 Outpatient [facility] [id number] Common 13:45:00 13:45:00 [address] [place] [address] Sp[address] [facility] 2018-04-17 2018-04-17 Outpatient [facility] [id number] Common 15:41:00 15:41:[address] [facility] [address] Sp[address] Road [facility] 2018-01-31 2018-01-31 Outpatient [facility] [id number] Common 13:15:00 13:15:00 [address] [place] [address] Sp[address] [facility] 2018-01-16 2018-01-16 Outpatient [facility] [id number] Common 14:00:00 14:00:00 t [employer] Spir it Drive [facility] Family [facility] 2016-07-05 2016-07-[address] [facility] [id number] Memoria 19:02:00 05:59:00 Services r Outpatient 01 l Jasper Mccabe 2016-07-05 2016-07-[address] [facility] [id number] Memoria 19:02:00 05:59:00 Services r Outpatient 01 l Jasper Mccabe Eliot 2016-07-05 2016-07-05 Outpatient Tung MHOIH MHOIH [id number] 13:02:00 23:59:00 Jorge Angel 2016-07-05 2016-07-05 Outpatient MHIE MHIE [id number] Memoria 14:45:00 14:45:00 05 zulma Mccabe 2016-07-05 2016-07-05 Outpatient MHIE MHIE [id number] Memoria 14:45:00 14:45:00 05 zulma Mccabe 2016-05-16 2016-05-[address] [facility] [id number] Memoria 19:44:00 05:59:00 Services r Outpatient 00 l Imaging Eliot Bonillaann 2016-05-16 2016-05-[address] [facility] [id number] Memoria 19:44:00 05:59:00 Services r Outpatient 00 l Jasper Mccabe Eliot 2016-05-16 2016-05-16 Outpatient Tung MHOIH MHOIH [id number] 13:44:00 23:59:00 Jorge Augustin Angel 2016-05-16 2016-05-16 Outpatient MHIE MHIE [id number] Memoria 11:30:00 11:30:00 06 zulma Mccabe 2016-05-16 2016-05-16 Outpatient MHIE MHIE [id number] Memoria 11:30:00 11:30:00 06 zulma Mccabe 2016-04-14 2016-04-14 Outpatient MHIE MHIE [id number] Memoria 13:00:00 13:00:00 04 zulma Mccabe 2016-04-14 2016-04-14 Outpatient MHIE MHIE [id number] Memoria 13:00:00 13:00:00 04 zulma Mccabe 2016-04-01 2016-04-06 Inpatient [facility] [id number] Memoria 10:10:00 19:48:00 r Donnellson 00 l [facility] 2016-04-01 2016-04-06 Inpatient [facility] [id number] Memoria 10:10:00 19:48:00 r Donnellson 00 l [facility] 2016-04-01 2016-04-06 Outpatient Tung [facility] [id number] 05:10:00 14:48:00 Jorge 00 Angel 2016-04-01 2016-04-01 Outpatient MHIE MHIE [id number] Memoria 08:00:00 08:00:00 03 [facility] 2016-04-01 2016-04-01 Outpatient MHIE MHIE [id number] Memoria 08:00:00 08:00:00 03 [facility] 2016-03-31 2016-03-31 Outpatient MHIE MHIE [id number] Memoria 08:30:00 08:30:00 02 [facility] 2016-03-31 2016-03-31 Outpatient MHIE MHIE [id number] Memoria 08:30:00 08:30:00 02 [facility] 2016-03-15 2016-03-15 Outpatient MHIE MHIE [id number] Memoria 09:30:00 09:30:00 01 Eliot 2016-03-15 2016-03-15 Outpatient MHIE MHIE [id number] Memoria 09:30:00 09:30:00 01 Eliot Results Test Description Test Time Test Comments [...] 32.1 g/dL 31.6-35.1 RDW-SD (test code = 33766-3) 52.1 fL 39.0-49.9 H RDW-CV (test code = 788-0) 15.2 % 12.0-15.5 PLT (test code = 777-3) See_Comment [Au tomated message] The system which ge nerated this result transmit james reference range: 166 - 35 8 10*3/?L. The reference range was not used to interpret th is result as normal/abnormal . MPV (test code = 68109-4) 9.3 fL 9.5-12.9 L NRBC/100 WBC (test code = See_Comment [ Automated message] The [id number]) system which ge nerated this result transmit james reference range: 0.0 - 10 .0 /100 WBCs. The reference r malinda was not used to interpr et this result as normal/abnor mal. NRBC x10^3 (test code = See_Comment [Au tomated message] The [id number]) system which [employer] nerated this result transmit james reference range: 10*3/?L. The reference range was not u sed to interpret this result as normal/abnormal . GRAN MAT (NEUT) % (test code 79.9 % = 770-8) IMM GRAN % (test code = 0.60 % 8645412477) LYMPH % (test code = 736-9) 9.9 % MONO % (test code = 5905-5) 6.6 % EOS % (test code = 713-8) 2.6 % BASO % (test code = 706-2) 0.4 % GRAN MAT x10^3(ANC) (test 12.68 10*3/uL 1.88-7.09 H code = 0883877071) IMM GRAN x10^3 (test code = 0.10 10*3/uL 0.00-0.06 H 6084381834) LYMPH x10^3 (test code = 1.57 10*3/uL 1.32-3.29 731-0) MONO x10^3 (test code = 1.04 10*3/uL 0.33-0.92 H 742-7) EOS x10^3 (test code = 0.41 10*3/uL 0.03-0.39 H 711-2) BASO x10^3 (test code = 0.06 10*3/uL 0.01-0.07 704-7) Lab Interpretation (test Abnormal code = 77940-1) [facility] MET[facility] [id number] 06:22:00 Test Item Value Reference Range Interpretation [...] RATE (test code = GFR) mL/mi n/1.73 t6Mcmwnqwvo Range:Healthy Adults >90 mL/min/1.73 m2 For Chronic Kidney Disease: Stage II Mild Decrease i n GFR 60-90 Stage III Moderate Decrea se in GFR 30-59 St age IV Severe Decre ase in GFR 15-29 St age V Kidney Failur e <15 CREATININE (test code 1.13 mg/dL 0.55-1.30 N = CREAT) CALCIUM (test code = 8.6 mg/dL 8.2-10.1 N CA) HGB [id number] 05:57:00 Test Item Value Reference Range Interpretation Comments HEMOGLOBIN (test code = HGB) 11.4 g/dL 12-16 L HEMATOCRIT (test code = HCT) 35.5 % 37-47 L SPECIMEN COMMENT: POD #1PROTHROMBIN [id number] 17:08:00 Test Item Value Reference Range Interpretation [...] BLOOD, PT every other day NTHROMBOPLASTIN TIME [id number] 17:08:00 Test Item Value Reference Range Interpretation Comments PTT ACTIVATED (test code = APTT) 34.0 secs 24.9-37.0 N IS PATIENT ON ANTICOAGULANTS ? YLIST ANTICOAGULANT/ANTI PLT MEDICATION : OtherHas Lab been notified if Patient is on Heparin Drip? NOIf Yes, order CBC, OCCULT BLOOD, PT every other day NCOMPREHENSIVE METABOLIC [id number] 17:08:00 Test Item Value Reference Range Interpretation [...] RATE (test code = GFR) mL/mi n/1.73 g8Ruwtwtpjb Range:Healthy Adults >90 mL/min/1.73 m2 For Chronic [...] TOTAL (test code = ALKP) CBC W/AUTO [id number] 16:45:00 Test Item Value Reference Range Interpretation [...] code = NRBC) - XR CHEST 1 [id number] 16:35:00 Patient Name: RUTHY BEST Unit No: [id number] EXAMS: CPT CODE: [id number] XR CHEST 1 V [id number] PROVIDED: One frontal view of the chest [...] MD Technologist: JESSICA CHAND RT(R) Transcribed D/ (3935) t.MARINAR.[facility] NAME: RUTHY BEST [address] [facility] PHYS: GELA.Nikolas - Aida Meredith : 1945 AGE: 73 SEX: F [place], [place] [address] LOC: Y.306 A PHONE #: [phone] EXAM DATE: 05/15/2019 STATUS: DIS IN FAX #: [phone] RAD #: D/C DT 05/16/2019 PAGE 1 Signed Report Patient Name: RUTHY BEST Unit No: [id number] EXAMS: CPT CODE: [id number] XR CHEST 1 V 07800 (Continued) Orig Print D/T: S: 05/16/2019 (1639) [facility] NAME: RUTHY BEST [address] [facility] PHYS: ALEAida Fuller : 1945 AGE: 73 SEX: F [place], [place] [address] LOC: Y.306 A PHONE #: [phone] EXAM DATE: 05/15/2019 STATUS: DIS IN FAX #: [phone] RAD #: D/C DT 05/16/2019 PAGE 2 Signed Report- XR SHOULDER 1 V [id number] 14:01:00 Patient Name: RUTHY BEST Unit No: [id number] EXAMS: CPT CODE: [id number] XR SHOULDER 1 [place] [address] IMAGES PROVIDED: Single AP view of the left shoulder FINDINGS: Postoperative changes of left rev erse total shoulder arthoplasty demonstrated without evidence of immediate complication. No acute fracture. Visualized lung is clear. IMPRESSION: Left reverse total shoulder arthoplasty without immediate complication. at 1401 Reported and signed by: Rick Serrano M.D. CC: Geovany Olivera MD Technologist: MIGUELITO FELIZ(RT.R) Transcribed D/ (1401) LesleySLJ [facility] NAME: RUTHY BEST [address] [facility] PHYS: Geovany Bee : 1945 AGE: 73 SEX: F [place], [place] LOC: Y.306 A PHONE #: [phone] EXAM DATE: 05/15/2019 STATUS: ADM IN FAX #: [phone] RAD #: D/C DT PAGE 1 Signed Report Patient Name: RUTHY BEST Unit No: [id number] EXAMS: CPT CODE: [id number] XR SHOULDER 1 [place] [address] (Continued) Orig Print D/T: S: 05/16/2019(1404) [facility] NAME: RUTHY BEST [address] [facility] PHYS: EDWT - Geovany Olivera : 1945 AGE: 73 SEX: F [place], [place] [address] LOC: Y.306 A PHONE #: [phone] EXAM DATE: 05/15/2019 STATUS: ADM IN FAX #: [phone] RAD #: D/C DT PAGE 2 Signed ReportCBC W/AUTO [id number] 05:53:00 Test Item Value Reference Range Interpretation [...] POD #1- CT UP EXTREM W/O CONT [id number] 08:39:00 Patient Name: RUTHY BEST Unit No: [id number] EXAMS: CPT CODE: [id number] [place] UP EXTREM W/[place] [address] [place] OF THE LEFT SHOULDER WITH SAGITTAL AND CORONAL RECONSTRUCTIONS DIAGNOSIS: Glenohumeral joint degenerative change is present with cartilage thinning and erosion and cyst formation involving the anterior aspect of the humeral head. Mild to moderate fatty atrophy subscapularis muscle is seen with mild fatty infiltration of the supraspinatus and infraspinatus muscles. COMMENT: COMPARISON:No prior exams available. Scans were performed with thin sections and reconstructions were obtained.CT radiation dose optimization is achieved for this examination by the use of a CT protocol in accordance with ACR practice standards and adherence to hand fur cleaner's recommendations. Degenerative changes are present as noted. The rotator cuff is as described. No loose bodies are seen. AC joint degenerative change is present. at 0839 Reported and signed by: Ran Cedeño MD CC: Geovany Olivera MD Technologist: RT Elliot(R) CTDI: DLP: Trnscrpt: 04/12/2019 (0839) LesleyJCL [facility] NAME: RUTHY BEST [address] [facility] PHYS: EDGeovany Sandy : 1945 AGE: 73 SEX: F [place], [place] [address] LOC: Y.RAD PHONE #: [phone] EXAM DATE: 04/11/2019 STATUS: DEP CLI FAX #: [phone] RAD #: D/C DT PAGE 1 Signed Report Patient Name: RUTHY BEST Unit No: [id number] EXAMS: CPT CODE: [id number] CT UP EXTREM W/[place] [address] (Continued) Orig Print D/T: S: 04/12/2019 (0842) [facility] NAME: RUTHY BEST [address] [facility] [address] PHYS: INDERJIT - Geovany Olivera : 1945 AGE: 73 SEX: F [place], [place] [address] : Y.RAD PHONE #: [phone] EXAM DATE: 04/11/2019 STATUS: DEP CLI FAX #: [phone] RAD #: D/C DT PAGE 2 Signed ReportCBC W/AUTO [id number] 18:23:00 Test Item Value Reference Range Interpretation [...] % 0-0 N code = NRBC) SED [id number] 18:23:00 Test Item Value Reference Range Interpretation Comments SED RATE (test code = SEDW) 25 mm/hr 0-20 H COMPREHENSIVE METABOLIC [id number] 18:17:00 Test Item Value Reference Range Interpretation [...] RATE (test code = GFR) mL/mi n/1.73 z9Aakzwetra Range:Healthy Adults >90 mL/min/1.73 m2 For Chronic Kidney Disease: Stage II Mild Decrease i n GFR 60-90 Stage III Moderate Decrea se in GFR 30-59 St age IV Severe Decre ase in GFR 15-29 S tage V Kidney Failur e <15 CREATININE (test [...] N TOTAL (test code = ALKP) PROTHROMBIN [id number] 17:59:00 Test Item Value Reference Range Interpretation [...] Patient is on Heparin Drip? NOTHROMBOPLASTIN TIME [id number] 17:59:00 Test Item Value Reference Range Interpretation [...] % 0-0 N code = NRBC) SED [id number] 17:22:00 Test Item Value Reference Range Interpretation Comments SED RATE (test code = SEDW) mm/hr 0-20 CHEM [id number] 19:15:00 Test Item Value Reference Range Interpretation Comments Calcium Lvl (test code = Calcium Lvl) 9.5 8.5-10.5 [facility] [id number] 19:15:00 Test Item Value Reference Range Interpretation Comments eGFR (test code = eGFR) 94 [facility] [id number] 19:15:00 Test Item Value Reference Range Interpretation Comments CO2 (test code = CO2) 26 24-32 [facility] [employer] [id number] 19:15:00 Test Item Value Reference Range Interpretation Comments Creatinine Lvl (test code = Creatinine 0.55 0.50-1.40 Lvl) [facility] [id number] 19:15:00 Test Item Value Reference Range Interpretation Comments Chloride Lvl (test code = Chloride Lvl) 99 95-109 [facility] [id number] 19:15:00 Test Item Value Reference Range Interpretation Comments AGAP (test code = AGAP) 14.9 10.0-20.0 [facility]2016-10-05 19:15:00 Test Item Value Reference Range Interpretation Comments BUN (test code = BUN) 27 - [facility]2016-10-05 19:15:00 Test Item Value Reference Range Interpretation Comments Potassium Lvl (test code = Potassium 2.9 3.5-5.1 Lvl) [facility] [facility]00 Test Item Value Reference Range Interpretation Comments Sodium Lvl (test code = Sodium Lvl) 137 135-145 [facility]2016-10-05 19:15:00 Test Item Value Reference Range Interpretation Comments Glucose Lvl (test code = Glucose Lvl) 98 70-99 [facility]2016-10-05 19:15:00 Test Item Value Reference Range Interpretation Comments Calcium Lvl (test code = Calcium Lvl) 9.5 8.5-10.5 [facility]2016-10-05 19:15:00 Test Item Value Reference Range Interpretation Comments eGFR (test code = eGFR) 94 [facility]2016-10-05 19:15:00 Test Item Value Reference Range Interpretation Comments CO2 (test code = CO2) 26 24-32 [facility]2016-10-05 19:15:00 Test Item Value Reference Range Interpretation Comments Creatinine Lvl (test code = Creatinine 0.55 0.50-1.40 Lvl) [facility]2016-10-05 19:15:00 Test Item Value Reference Range Interpretation Comments Chloride Lvl (test code = Chloride Lvl) 99 95-109 [facility]2016-10-05 19:15:00 Test Item Value Reference Range Interpretation Comments AGAP (test code = AGAP) 14.9 10.0-20.0 [facility]2016-10-05 19:15:00 Test Item Value Reference Range Interpretation Comments BUN (test code = BUN) 27 7- [facility]2016-10-05 19:15:00 Test Item Value Reference Range Interpretation Comments Potassium Lvl (test code = Potassium 2.9 3.5-5.1 Lvl) [facility]2016-10-05 19:15:00 Test Item Value Reference Range Interpretation Comments Sodium Lvl (test code = Sodium Lvl) 137 135-145 [facility]2016-10-05 19:15:00 Test Item Value Reference Range Interpretation Comments Glucose Lvl (test code = Glucose Lvl) 98 70-99 [facility]2016-10-05 19:15:00 Test Item Value Reference Range Interpretation Comments Calcium Lvl (test code = Calcium Lvl) 9.5 8.5-10.5 [facility]2016-10-05 19:15:00 Test Item Value Reference Range Interpretation Comments eGFR (test code = eGFR) 94 [facility]2016-10-05 19:15:00 Test Item Value Reference Range Interpretation Comments CO2 (test code = CO2) 26 24-32 [facility]2016-10-05 19:15:00 Test Item Value Reference Range Interpretation Comments Creatinine Lvl (test code = Creatinine 0.55 0.50-1.40 Lvl) [facility]2016-10-05 19:15:00 Test Item Value Reference Range Interpretation Comments Chloride Lvl (test code = Chloride Lvl) 99 95-109 [facility]2016-10-05 19:15:00 Test Item Value Reference Range Interpretation Comments AGAP (test code = AGAP) 14.9 10.0-20.0 [facility]2016-10-05 19:15:00 Test Item Value Reference Range Interpretation Comments BUN (test code = BUN) 27 7-22 [facility]2016-10-05 19:15:00 Test Item Value Reference Range Interpretation Comments Potassium Lvl (test code = Potassium 2.9 3.5-5.1 Lvl) [facility]2016-10-05 19:15:00 Test Item Value Reference Range Interpretation Comments Sodium Lvl (test code = Sodium Lvl) 137 135-145 [facility]2016-10-05 19:15:00 Test Item Value Reference Range Interpretation Comments Glucose Lvl (test code = Glucose Lvl) 98 70-99 [facility]2016-10-05 19:15:00 Test Item Value Reference Range Interpretation Comments Calcium Lvl (test code = Calcium Lvl) 9.5 8.5-10.5 [facility]2016-10-05 19:15:00 Test Item Value Reference Range Interpretation Comments eGFR (test code = eGFR) 94 [facility]2016-10-05 19:15:00 Test Item Value Reference Range Interpretation Comments CO2 (test code = CO2) -32 [facility]2016-10-05 19:15:00 Test Item Value Reference Range Interpretation Comments Creatinine Lvl (test code = Creatinine 0.55 0.50-1.40 Lvl) [facility]2016-10-05 19:15:00 Test Item Value Reference Range Interpretation Comments Chloride Lvl (test code = Chloride Lvl) 99 95-109 [facility]2016-10-05 19:15:00 Test Item Value Reference Range Interpretation Comments AGAP (test code = AGAP) 14.9 10.0-20.0 [facility]2016-10-05 19:15:00 Test Item Value Reference Range Interpretation Comments BUN (test code = BUN) 27 7-22 [facility]2016-10-05 19:15:00 Test Item Value Reference Range Interpretation Comments Potassium Lvl (test code = Potassium 2.9 3.5-5.1 Lvl) [facility]2016-10-05 19:15:00 Test Item Value Reference Range Interpretation Comments Sodium Lvl (test code = Sodium Lvl) 137 135-145 [facility]2016-10-05 19:15:00 Test Item Value Reference Range Interpretation Comments Glucose Lvl (test code = Glucose Lvl) 98 70-99 [facility]2016-10-05 19:15:00 Test Item Value Reference Range Interpretation Comments Calcium Lvl (test code = Calcium Lvl) 9.5 8.5-10.5 [facility]2016-10-05 19:15:00 Test Item Value Reference Range Interpretation Comments eGFR (test code = eGFR) 94 [facility]2016-10-05 19:15:00 Test Item Value Reference Range Interpretation Comments CO2 (test code = CO2) - [facility]2016-10-05 19:15:00 Test Item Value Reference Range Interpretation Comments Creatinine Lvl (test code = Creatinine 0.55 0.50-1.40 Lvl) [facility]2016-10-05 19:15:00 Test Item Value Reference Range Interpretation Comments Chloride Lvl (test code = Chloride Lvl) 99 95-109 [facility]2016-10-05 19:15:00 Test Item Value Reference Range Interpretation Comments AGAP (test code = AGAP) 14.9 10.0-20.0 [facility]2016-10-05 19:15:00 Test Item Value Reference Range Interpretation Comments BUN (test code = BUN) 27 7-22 [facility]2016-10-05 19:15:00 Test Item Value Reference Range Interpretation Comments Potassium Lvl (test code = Potassium 2.9 3.5-5.1 Lvl) [facility]2016-10-05 19:15:00 Test Item Value Reference Range Interpretation Comments Sodium Lvl (test code = Sodium Lvl) 137 135-145 [facility]2016-10-05 19:15:00 Test Item Value Reference Range Interpretation Comments Glucose Lvl (test code = Glucose Lvl) 98 70-99 [facility]puecksITYOXFXGKNWY5989-54-59 08:58:00 Test Item Value Reference Range Interpretation Comments BUN (test code = BUN) 24 - [facility] HospitalRiimxxkFETPFSKJOGUU4523-91-82 08:58:00 Test Item Value Reference Range Interpretation Comments Creatinine Lvl (test code = Creatinine 0.57 0.50-1.40 Lvl) [facility]RrbhkzwKHJQZGFHAY0119-45-44 08:58:00 Test Item Value Reference Range Interpretation Comments PT (test code = PT) 15.9 s 12.0-14.7 [facility] HospitalYjepeesWINUZHYOWX7167-08-11 08:58:00 Test Item Value Reference Range Interpretation Comments INR (test code = INR) 1.24 0.85-1.17 [facility] HospitalXflkxgjEJJTQXZUUF6802-35-47 08:58:00 Test Item Value Reference Range Interpretation Comments PTT (test code = PTT) 35.2 s 22.9-35.8 [facility] HospitalXwdyueiZZLICEAFKI1441-57-84 08:58:00 Test Item Value Reference Range Interpretation Comments RBC (test code = RBC) 3.67 4.20-5.40 [facility] HospitalXhrlpllVZSJLHGOXA5337-81-25 08:58:00 Test Item Value Reference Range Interpretation Comments Hgb (test code = Hgb) 10.6 12.0-16.0 [facility] HospitalQboqyrvYLMBNCKBDA4404-03-84 08:58:00 Test Item Value Reference Range Interpretation Comments WBC (test code = WBC) 8.8 3.7-10.4 [facility] HospitalVjkbyowFQCKQCXLJU3897-50-46 08:58:00 Test Item Value Reference Range Interpretation Comments Platelet (test code = Platelet) 490 133-450 [facility] HospitalQazzcooDOEEMXCCJY3019-85-30 08:58:00 Test Item Value Reference Range Interpretation Comments MPV (test code = MPV) 7.5 7.4-10.4 [facility] HospitalClvumouFAKUPHPHSG4131-26-20 08:58:00 Test Item Value Reference Range Interpretation Comments MCHC (test code = MCHC) 34.7 32.0-36.0 [facility] HospitalUisphgxDLLZVEEFDT6226-74-37 08:58:00 Test Item Value Reference Range Interpretation Comments RDW (test code = RDW) 13.8 11.5-14.5 [facility] HospitalXedrumyNGQWCDJQCP5874-08-67 08:58:00 Test Item Value Reference Range Interpretation Comments MCV (test code = MCV) 82.8 80.0-98.0 [facility] HospitalDrpthzyPAXNCZPZJY2890-07-29 08:58:00 Test Item Value Reference Range Interpretation Comments MCH (test code = MCH) 28.8 pg 27.0-31.0 [facility] HospitalLgrsugzZYFDMLWJCX1582-65-26 08:58:00 Test Item Value Reference Range Interpretation Comments Hct (test code = Hct) 30.4 36.0-48.0 [facility] HospitalVilybvdBSQNPVJZIS5227-08-01 08:58:00 Test Item Value Reference Range Interpretation Comments Eosinophils # (test code 0.2 See_Comment [A utomated message] The = Eosinophils #) system whic h generated this result tra nsmitted reference range : <=0.5. The reference r malinda was not used to int erpret this result as normal/abnormal . [facility] HospitalGtwjvhfVMTRWTXPJW8681-73-71 08:58:00 Test Item Value Reference Range Interpretation Comments Segs-Bands # (test code = Segs-Bands #) 5.4 1.5-8.1 [facility] HospitalVvgnfiwHOYDRRUXLW5240-65-32 08:58:00 Test Item Value Reference Range Interpretation Comments Monocytes # (test code 1.1 See_Comment [Aut omated message] The = Monocytes #) system which generated this result tra nsmitted reference range : <=0.8. The reference r malinda was not used to int erpret this result as normal/abnormal . [facility] HospitalNgadfcxNHHFBFNVZM2836-58-87 08:58:00 Test Item Value Reference Range Interpretation Comments Lymphocytes # (test code = Lymphocytes 2.1 1.0-5.5 #) [facility] HospitalImrtayfWXMOBQSIRN3903-53-35 08:58:00 Test Item Value Reference Range Interpretation Comments Eosinophils (test code = 2.1 See_Comment [A utomated message] The Eosinophils) system which ge nerated this result tra nsmitted reference range : <=4.0. The reference r malinda was not used to int erpret this result as normal/abnormal . [facility] HospitalAxkyqhtXQKQNHRIQR2441-68-59 08:58:00 Test Item Value Reference Range Interpretation Comments Basophils (test code = 0.6 See_Comment [Aut omated message] The Basophils) system which ge nerated this result tra nsmitted reference range : <=1.0. The reference r malinda was not used to int erpret this result as normal/abnormal . [facility] HospitalIrosdmqLNFVNYOEGM1082-83-75 08:58:00 Test Item Value Reference Range Interpretation Comments Lymphocytes (test code = Lymphocytes) 23.7 20.0-40.0 [facility] HospitalTctszmqENFBUOAWZV9200-67-30 08:58:00 Test Item Value Reference Range Interpretation Comments Monocytes (test code = Monocytes) 12.4 2.0-12.0 [facility] HospitalBdbruuvHDJMYINQDC8462-64-64 08:58:00 Test Item Value Reference Range Interpretation Comments Segs (test code = Segs) 61.2 45.0-75.0 [facility]JxpgsmiRYBWNALGHGFE8991-20-89 08:58:00 Test Item Value Reference Range Interpretation Comments Chloride Lvl (test code = Chloride Lvl) 99 95-109 [facility] HospitalCqaqiphIMBMQTJARGVP8403-46-43 08:58:00 Test Item Value Reference Range Interpretation Comments Potassium Lvl (test code = Potassium 2.5 3.5-5.1 Lvl) [facility] HospitalOtcbqcgTDKPOVBQJCOC5229-39-41 08:58:00 Test Item Value Reference Range Interpretation Comments Sodium Lvl (test code = Sodium Lvl) 136 135-145 [facility] HospitalBovdvstEOYYKTPYZHYK8895-47-12 08:58:00 Test Item Value Reference Range Interpretation Comments CO2 (test code = CO2) 25 24-32 [facility] HospitalRyhhwmdLUIOMZCPKZAR4521-33-75 08:58:00 Test Item Value Reference Range Interpretation Comments eGFR (test code = eGFR) 93 [facility] HospitalLjlqurqCLZGBWOXDETO7897-84-90 08:58:00 Test Item Value Reference Range Interpretation Comments Calcium Lvl (test code = Calcium Lvl) 9.5 8.5-10.5 [facility] HospitalWccocuyGHNFLDHNHKNX3017-25-61 08:58:00 Test Item Value Reference Range Interpretation Comments AGAP (test code = AGAP) 14.5 10.0-20.0 [facility] HospitalPcbsmcuIUXGNDCEWOEN7008-75-46 08:58:00 Test Item Value Reference Range Interpretation Comments Glucose Lvl (test code = Glucose Lvl) 93 70-99 [facility] HospitalFekvbrgGFTSNBGXVMRD5004-05-04 08:58:00 Test Item Value Reference Range Interpretation Comments BUN (test code = BUN) 24 7-22 [facility] HospitalFucqtziJBMFDCHQCYRY1165-67-20 08:58:00 Test Item Value Reference Range Interpretation Comments Creatinine Lvl (test code = Creatinine 0.57 0.50-1.40 Lvl) [facility] HospitalWqdshwkEXNFAAYUPF0476-23-20 08:58:00 Test Item Value Reference Range Interpretation Comments PT (test code = PT) 15.9 s 12.0-14.7 [facility] HospitalYtzcvkiIOEUJWZQCV4504-95-45 08:58:00 Test Item Value Reference Range Interpretation Comments INR (test code = INR) 1.24 0.85-1.17 [facility] HospitalQirjalhWOKQXTNSVQ0709-68-57 08:58:00 Test Item Value Reference Range Interpretation Comments PTT (test code = PTT) 35.2 s 22.9-35.8 [facility] HospitalHuovdmfMQXSBGFETH9713-59-98 08:58:00 Test Item Value Reference Range Interpretation Comments RBC (test code = RBC) 3.67 4.20-5.40 [facility] HospitalJimzrmsBGNOMZDFOF9143-23-58 08:58:00 Test Item Value Reference Range Interpretation Comments Hgb (test code = Hgb) 10.6 12.0-16.0 [facility] HospitalBhqjljbLQFCJYENAH7784-63-54 08:58:00 Test Item Value Reference Range Interpretation Comments WBC (test code = WBC) 8.8 3.7-10.4 [facility] HospitalEkfszlgEDLAJNAMER6968-97-35 08:58:00 Test Item Value Reference Range Interpretation Comments Platelet (test code = Platelet) 490 133-450 [facility] HospitalXfylpbrBYNGGLEBGU9549-60-61 08:58:00 Test Item Value Reference Range Interpretation Comments MPV (test code = MPV) 7.5 7.4-10.4 [facility] HospitalHhfuzuvKUFZJLEHWA0295-59-37 08:58:00 Test Item Value Reference Range Interpretation Comments MCHC (test code = MCHC) 34.7 32.0-36.0 [facility] HospitalBmsyyyeKWGSXLPHFS8839-79-87 08:58:00 Test Item Value Reference Range Interpretation Comments RDW (test code = RDW) 13.8 11.5-14.5 [facility] HospitalUntfnxcLOPXMHZOXN1004-59-74 08:58:00 Test Item Value Reference Range Interpretation Comments MCV (test code = MCV) 82.8 80.0-98.0 [facility] HospitalGpdwiwxBTNLCGEGZO9958-19-43 08:58:00 Test Item Value Reference Range Interpretation Comments MCH (test code = MCH) 28.8 pg 27.0-31.0 [facility] HospitalBjotskzERQWAMHVNU7643-20-67 08:58:00 Test Item Value Reference Range Interpretation Comments Hct (test code = Hct) 30.4 36.0-48.0 [facility] HospitalHdopbsjOGQIOLTHYT3034-64-04 08:58:00 Test Item Value Reference Range Interpretation Comments Eosinophils # (test code 0.2 See_Comment [A utomated message] The = Eosinophils #) system [facility] generated this result tra nsmitted reference range : <=0.5. The reference r malinda was not used to int erpret this result as normal/abnormal . [facility] HospitalKcydwgjZUKSOMKCIV3413-11-87 08:58:00 Test Item Value Reference Range Interpretation Comments Segs-Bands # (test code = Segs-Bands #) 5.4 1.5-8.1 [facility] HospitalEddorixLKJCNAEYWV9824-06-24 08:58:00 Test Item Value Reference Range Interpretation Comments Monocytes # (test code 1.1 See_Comment [Aut omated message] The = Monocytes #) system which generated this result tra nsmitted reference range : <=0.8. The reference r malinda was not used to int erpret this result as normal/abnormal . [facility] HospitalNghahhgDPRIFGFKBH7213-68-63 08:58:00 Test Item Value Reference Range Interpretation Comments Lymphocytes # (test code = Lymphocytes 2.1 1.0-5.5 #) [facility] HospitalXorhwgpVNYINCKLSN1456-94-02 08:58:00 Test Item Value Reference Range Interpretation Comments Eosinophils (test code = 2.1 See_Comment [A utomated message] The Eosinophils) system which ge nerated this result tra nsmitted reference range : <=4.0. The reference r malinda was not used to int erpret this result as normal/abnormal . [facility] HospitalHweputeIAQYMMQHBU1594-93-44 08:58:00 Test Item Value Reference Range Interpretation Comments Basophils (test code = 0.6 See_Comment [Aut omated message] The Basophils) system which ge nerated this result tra nsmitted reference range : <=1.0. The reference r malinda was not used to int erpret this result as normal/abnormal . [facility] HospitalItcarbjWIVUYNBWVD0423-11-24 08:58:00 Test Item Value Reference Range Interpretation Comments Lymphocytes (test code = Lymphocytes) 23.7 20.0-40.0 [facility] HospitalWirjgrwSVMJDHEKTX3555-88-46 08:58:00 Test Item Value Reference Range Interpretation Comments Monocytes (test code = Monocytes) 12.4 2.0-12.0 [facility] HospitalRpjohggCMAOTIDFQG9548-27-39 08:58:00 Test Item Value Reference Range Interpretation Comments Segs (test code = Segs) 61.2 45.0-75.0 [facility]EryizmlPWVMLWRHPTLO4838-04-05 08:58:00 Test Item Value Reference Range Interpretation Comments Chloride Lvl (test code = Chloride Lvl) 99 95-109 [facility] HospitalWevmobcYAQLUQAYSGLR1298-95-17 08:58:00 Test Item Value Reference Range Interpretation Comments Potassium Lvl (test code = Potassium 2.5 3.5-5.1 Lvl) [facility] HospitalHupxmcgNYEIIYLIGIIM4728-68-36 08:58:00 Test Item Value Reference Range Interpretation Comments Sodium Lvl (test code = Sodium Lvl) 136 135-145 [facility] HospitalUyqpujkJETKVTJTEUQA4768-73-21 08:58:00 Test Item Value Reference Range Interpretation Comments CO2 (test code = CO2) 25 24-32 [facility] HospitalDpvcyzhPMJEJHGFPFUD5069-93-45 08:58:00 Test Item Value Reference Range Interpretation Comments eGFR (test code = eGFR) 93 [facility] HospitalStcukkzWARVPHKVZSEF8931-43-07 08:58:00 Test Item Value Reference Range Interpretation Comments Calcium Lvl (test code = Calcium Lvl) 9.5 8.5-10.5 [facility] HospitalJdwpadlPPBVSVRUTBYB6188-78-51 08:58:00 Test Item Value Reference Range Interpretation Comments AGAP (test code = AGAP) 14.5 10.0-20.0 [facility] HospitalMtzoalwOHPKAKUJDQKT8257-47-42 08:58:00 Test Item Value Reference Range Interpretation Comments Glucose Lvl (test code = Glucose Lvl) 93 70-99 [facility] HospitalZiqpewdSYYMKATKLQUH3231-29-63 08:58:00 Test Item Value Reference Range Interpretation Comments BUN (test code = BUN) 24 7-22 [facility] HospitalIuhdufaCIBDBTOVXPVY0554-17-12 08:58:00 Test Item Value Reference Range Interpretation Comments Creatinine Lvl (test code = Creatinine 0.57 0.50-1.40 Lvl) [facility] HospitalOtuwfmzEXUVYZUGIG5557-26-65 08:58:00 Test Item Value Reference Range Interpretation Comments PT (test code = PT) 15.9 s 12.0-14.7 [facility] HospitalEwmvswhIPEIMECNXF1095-11-74 08:58:00 Test Item Value Reference Range Interpretation Comments INR (test code = INR) 1.24 0.85-1.17 [facility] HospitalJeugepgDXFNSANROA1900-98-37 08:58:00 Test Item Value Reference Range Interpretation Comments PTT (test code = PTT) 35.2 s 22.9-35.8 [facility] HospitalCmwhqknUGVZREPPCP1953-71-22 08:58:00 Test Item Value Reference Range Interpretation Comments RBC (test code = RBC) 3.67 4.20-5.40 [facility] HospitalWuiwcytVNOODUGVFE4557-59-66 08:58:00 Test Item Value Reference Range Interpretation Comments Hgb (test code = Hgb) 10.6 12.0-16.0 [facility] HospitalBdboakuRNUZYLKGQQ0541-05-93 08:58:00 Test Item Value Reference Range Interpretation Comments WBC (test code = WBC) 8.8 3.7-10.4 [facility] HospitalJpwkbxhXAJZXORWJV6966-57-04 08:58:00 Test Item Value Reference Range Interpretation Comments Platelet (test code = Platelet) 490 133-450 [facility] HospitalEiwmvkgOSOIWMHSMQ5221-64-92 08:58:00 Test Item Value Reference Range Interpretation Comments MPV (test code = MPV) 7.5 7.4-10.4 [facility] HospitalRtsmvnnSFFXQYESEX5563-01-71 08:58:00 Test Item Value Reference Range Interpretation Comments MCHC (test code = MCHC) 34.7 32.0-36.0 [facility] HospitalSchyvrwXABKQGLHDJ8660-28-22 08:58:00 Test Item Value Reference Range Interpretation Comments RDW (test code = RDW) 13.8 11.5-14.5 [facility] HospitalFueafxoDGAVJVFRCT1969-81-02 08:58:00 Test Item Value Reference Range Interpretation Comments MCV (test code = MCV) 82.8 80.0-98.0 [facility] HospitalUkmsspqLXBRGOFNYV6782-36-95 08:58:00 Test Item Value Reference Range Interpretation Comments MCH (test code = MCH) 28.8 pg 27.0-31.0 [facility] HospitalEujrvlzOGDWJRWBEH0670-40-12 08:58:00 Test Item Value Reference Range Interpretation Comments Hct (test code = Hct) 30.4 36.0-48.0 [facility] HospitalXnavxmcOXRIOWZSLM8113-00-37 08:58:00 Test Item Value Reference Range Interpretation Comments Eosinophils # (test code 0.2 See_Comment [A utomated message] The = Eosinophils #) system whic h generated this result tra nsmitted reference range : <=0.5. The reference r malinda was not used to int erpret this result as normal/abnormal . [facility] HospitalFssqbnhVRKNNAVTMX8249-26-65 08:58:00 Test Item Value Reference Range Interpretation Comments Segs-Bands # (test code = Segs-Bands #) 5.4 1.5-8.1 [facility] HospitalKoacmyyFLJRTWPHHQ0968-46-96 08:58:00 Test Item Value Reference Range Interpretation Comments Monocytes # (test code 1.1 See_Comment [Aut omated message] The = Monocytes #) system which generated this result tra nsmitted reference range : <=0.8. The reference r malinda was not used to int erpret this result as normal/abnormal . [facility] HospitalDudjesgTRYXNZRHPV6939-25-43 08:58:00 Test Item Value Reference Range Interpretation Comments Lymphocytes # (test code = Lymphocytes 2.1 1.0-5.5 #) [facility] HospitalPtczvilOUJPZARCTZ5526-01-79 08:58:00 Test Item Value Reference Range Interpretation Comments Eosinophils (test code = 2.1 See_Comment [A utomated message] The Eosinophils) system which ge nerated this result tra nsmitted reference range : <=4.0. The reference r malinda was not used to int erpret this result as normal/abnormal . [facility] HospitalWwggrpuZOQHMDESVN4832-85-79 08:58:00 Test Item Value Reference Range Interpretation Comments Basophils (test code = 0.6 See_Comment [Aut omated message] The Basophils) system which ge nerated this result tra nsmitted reference range : <=1.0. The reference r malinda was not used to int erpret this result as normal/abnormal . [facility] HospitalJgphxdnTLGLDAVBKW9162-87-64 08:58:00 Test Item Value Reference Range Interpretation Comments Lymphocytes (test code = Lymphocytes) 23.7 20.0-40.0 [facility] HospitalCrzowoiBQKGMEOFSB4934-80-13 08:58:00 Test Item Value Reference Range Interpretation Comments Monocytes (test code = Monocytes) 12.4 2.0-12.0 [facility] HospitalYnyctbeMVRZLQDWZN7410-74-71 08:58:00 Test Item Value Reference Range Interpretation Comments Segs (test code = Segs) 61.2 45.0-75.0 [facility]YbnpjldVKBIISOOYKIQ2378-73-70 08:58:00 Test Item Value Reference Range Interpretation Comments Chloride Lvl (test code = Chloride Lvl) 99 95-109 [facility] HospitalLobdmwbGLJSFDYCEAEQ9517-59-34 08:58:00 Test Item Value Reference Range Interpretation Comments Potassium Lvl (test code = Potassium 2.5 3.5-5.1 Lvl) [facility] HospitalMsbgwasOXZHZIXORFMF8119-94-06 08:58:00 Test Item Value Reference Range Interpretation Comments Sodium Lvl (test code = Sodium Lvl) 136 135-145 [facility] HospitalLfcsmiyRZASXDUOWCOF5333-72-97 08:58:00 Test Item Value Reference Range Interpretation Comments CO2 (test code = CO2) 25 24-32 [facility] HospitalThsdgmoFPOBUBAPKEMM5801-31-33 08:58:00 Test Item Value Reference Range Interpretation Comments eGFR (test code = eGFR) 93 [facility] HospitalJtdmurpXCBCUJOZXLLM1108-94-43 08:58:00 Test Item Value Reference Range Interpretation Comments Calcium Lvl (test code = Calcium Lvl) 9.5 8.5-10.5 [facility] HospitalUdkejllSENZMHDVSIHU1659-88-90 08:58:00 Test Item Value Reference Range Interpretation Comments AGAP (test code = AGAP) 14.5 10.0-20.0 [facility] HospitalTfwuehwUWVIGHVFIAKR6105-87-90 08:58:00 Test Item Value Reference Range Interpretation Comments Glucose Lvl (test code = Glucose Lvl) 93 70-99 [facility] HospitalFhlmumuJHGPMFASNISJ9000-71-66 08:58:00 Test Item Value Reference Range Interpretation Comments BUN (test code = BUN) 24 7-22 [facility] HospitalDtrqjjmBKWRXHNDLFLL2369-05-47 08:58:00 Test Item Value Reference Range Interpretation Comments Creatinine Lvl (test code = Creatinine 0.57 0.50-1.40 Lvl) [facility] HospitalDvnnutxXXLRJXNBWF6785-99-62 08:58:00 Test Item Value Reference Range Interpretation Comments PT (test code = PT) 15.9 s 12.0-14.7 [facility] HospitalAzorcfjDFKSTDNRHJ0853-10-75 08:58:00 Test Item Value Reference Range Interpretation Comments INR (test code = INR) 1.24 0.85-1.17 [facility] HospitalShguxenJWOTZKLNWW1808-62-14 08:58:00 Test Item Value Reference Range Interpretation Comments PTT (test code = PTT) 35.2 s 22.9-35.8 [facility] HospitalXsouavfRYAHFLUMXQ9034-07-26 08:58:00 Test Item Value Reference Range Interpretation Comments RBC (test code = RBC) 3.67 4.20-5.40 [facility] HospitalLqibjbmJTAFTSYZEO2171-07-15 08:58:00 Test Item Value Reference Range Interpretation Comments Hgb (test code = Hgb) 10.6 12.0-16.0 [facility] HospitalQaehsczOMVMUCYNLE2155-91-92 08:58:00 Test Item Value Reference Range Interpretation Comments WBC (test code = WBC) 8.8 3.7-10.4 [facility] HospitalRpxegzxCNKBFGLFTG5655-46-97 08:58:00 Test Item Value Reference Range Interpretation Comments Platelet (test code = Platelet) 490 133-450 [facility] HospitalEufzubpOLNNSTNINI4229-01-81 08:58:00 Test Item Value Reference Range Interpretation Comments MPV (test code = MPV) 7.5 7.4-10.4 [facility] HospitalFkbsrzaHXYNOBLYIZ1241-91-02 08:58:00 Test Item Value Reference Range Interpretation Comments MCHC (test code = MCHC) 34.7 32.0-36.0 [facility] HospitalTilzmiaASNBORCLVW1473-40-58 08:58:00 Test Item Value Reference Range Interpretation Comments RDW (test code = RDW) 13.8 11.5-14.5 [facility] HospitalOxctuovABARJZIDZU2134-66-14 08:58:00 Test Item Value Reference Range Interpretation Comments MCV (test code = MCV) 82.8 80.0-98.0 [facility] HospitalWozliqkAYKHFBLTJL0484-82-40 08:58:00 Test Item Value Reference Range Interpretation Comments MCH (test code = MCH) 28.8 pg 27.0-31.0 [facility] HospitalMgesjvcWEVGESPEFL5012-71-47 08:58:00 Test Item Value Reference Range Interpretation Comments Hct (test code = Hct) 30.4 36.0-48.0 [facility] HospitalBgwzphrJWIBHWHEWP9860-24-02 08:58:00 Test Item Value Reference Range Interpretation Comments Eosinophils # (test code 0.2 See_Comment [A utomated message] The = Eosinophils #) system whic h generated this result tra nsmitted reference range : <=0.5. The reference r malinda was not used to int erpret this result as normal/abnormal . [facility] HospitalTnzzblaOVJZYYIUGF1511-58-18 08:58:00 Test Item Value Reference Range Interpretation Comments Segs-Bands # (test code = Segs-Bands #) 5.4 1.5-8.1 [facility] HospitalBnkyqfiUMZAUGBOCI5994-40-84 08:58:00 Test Item Value Reference Range Interpretation Comments Monocytes # (test code 1.1 See_Comment [Aut omated message] The = Monocytes #) system which generated this result tra nsmitted reference range : <=0.8. The reference r malinda was not used to int erpret this result as normal/abnormal . [facility] HospitalHnisrctUBRBFTWIUL3534-28-19 08:58:00 Test Item Value Reference Range Interpretation Comments Lymphocytes # (test code = Lymphocytes 2.1 1.0-5.5 #) [facility] HospitalZtskfkfUBMQWZYGEG0351-90-24 08:58:00 Test Item Value Reference Range Interpretation Comments Eosinophils (test code = 2.1 See_Comment [A utomated message] The Eosinophils) system which ge nerated this result tra nsmitted reference range : <=4.0. The reference r malinda was not used to int erpret this result as normal/abnormal . [facility] HospitalIvixyftVJUOFWVLIT6161-71-95 08:58:00 Test Item Value Reference Range Interpretation Comments Basophils (test code = 0.6 See_Comment [Aut omated message] The Basophils) system which ge nerated this result tra nsmitted reference range : <=1.0. The reference r malinda was not used to int erpret this result as normal/abnormal . [facility] HospitalQyofuvjRBRFKWQHMK2653-23-67 08:58:00 Test Item Value Reference Range Interpretation Comments Lymphocytes (test code = Lymphocytes) 23.7 20.0-40.0 [facility] HospitalSebsjouRJDTFGENDQ4243-96-06 08:58:00 Test Item Value Reference Range Interpretation Comments Monocytes (test code = Monocytes) 12.4 2.0-12.0 [facility] HospitalGjqyqktETDRREEDIF2065-46-82 08:58:00 Test Item Value Reference Range Interpretation Comments Segs (test code = Segs) 61.2 45.0-75.0 [facility] HospitalZxulvvoASSKUPRHTJJD8903-87-91 08:58:00 Test Item Value Reference Range Interpretation Comments Chloride Lvl (test code = Chloride Lvl) 99 95-109 [facility] HospitalBlftpojNVANOHZCVBFA0094-10-17 08:58:00 Test Item Value Reference Range Interpretation Comments Potassium Lvl (test code = Potassium 2.5 3.5-5.1 Lvl) [facility] HospitalChxpdivREJJPZLERPLG4136-77-90 08:58:00 Test Item Value Reference Range Interpretation Comments Sodium Lvl (test code = Sodium Lvl) 136 135-145 [facility] HospitalHbtxcfhEEXCSMMXJNBM2269-37-87 08:58:00 Test Item Value Reference Range Interpretation Comments CO2 (test code = CO2) 25 24-32 [facility] HospitalNqaybgpKCVIOGUPSIRH4822-50-47 08:58:00 Test Item Value Reference Range Interpretation Comments eGFR (test code = eGFR) 93 [facility] HospitalRaqlrqmPYTZZJETGUYL4592-47-97 08:58:00 Test Item Value Reference Range Interpretation Comments Calcium Lvl (test code = Calcium Lvl) 9.5 8.5-10.5 [facility] HospitalLobqnsiOMZDBKMWQVZL4604-80-53 08:58:00 Test Item Value Reference Range Interpretation Comments AGAP (test code = AGAP) 14.5 10.0-20.0 [facility] HospitalQksixtfJIBZLDRLKGIR3190-43-63 08:58:00 Test Item Value Reference Range Interpretation Comments Glucose Lvl (test code = Glucose Lvl) 93 70-99 [facility] HospitalSbbiceiDGQYQBQGRQCK0585-45-34 08:58:00 Test Item Value Reference Range Interpretation Comments BUN (test code = BUN) 24 7-22 [facility] HospitalZsdwigiOYNAMHLOUXGC9922-92-07 08:58:00 Test Item Value Reference Range Interpretation Comments Creatinine Lvl (test code = Creatinine 0.57 0.50-1.40 Lvl) [facility] HospitalPiuanozXPMYAFGDVL8469-64-37 08:58:00 Test Item Value Reference Range Interpretation Comments PT (test code = PT) 15.9 s 12.0-14.7 [facility] HospitalHwglxsvOJCQLFYVIG7811-02-92 08:58:00 Test Item Value Reference Range Interpretation Comments INR (test code = INR) 1.24 0.85-1.17 [facility] HospitalOpmcqidYQGXOQLPTA9855-53-35 08:58:00 Test Item Value Reference Range Interpretation Comments PTT (test code = PTT) 35.2 s 22.9-35.8 [facility] HospitalYoizbpxJBEERJXRGX8396-05-17 08:58:00 Test Item Value Reference Range Interpretation Comments RBC (test code = RBC) 3.67 4.20-5.40 [facility] HospitalZnhoigvQHTNQQJTUN5274-78-93 08:58:00 Test Item Value Reference Range Interpretation Comments Hgb (test code = Hgb) 10.6 12.0-16.0 [facility] HospitalWdbsesrGLZYTUHSLJ6093-95-52 08:58:00 Test Item Value Reference Range Interpretation Comments WBC (test code = WBC) 8.8 3.7-10.4 [facility] HospitalSsxmizmQWDLSTNKET4337-94-80 08:58:00 Test Item Value Reference Range Interpretation Comments Platelet (test code = Platelet) 490 133-450 [facility] HospitalFoqpedtFYTSVBIXJK5700-67-37 08:58:00 Test Item Value Reference Range Interpretation Comments MPV (test code = MPV) 7.5 7.4-10.4 [facility] HospitalQvbadtoEXVBRPERCU1321-95-39 08:58:00 Test Item Value Reference Range Interpretation Comments MCHC (test code = MCHC) 34.7 32.0-36.0 [facility] HospitalYwydfykJDUPHNQZOF0883-93-63 08:58:00 Test Item Value Reference Range Interpretation Comments RDW (test code = RDW) 13.8 11.5-14.5 [facility] HospitalLhnngapYLOQEZMLIZ4132-24-44 08:58:00 Test Item Value Reference Range Interpretation Comments MCV (test code = MCV) 82.8 80.0-98.0 [facility] HospitalStpyytoIXVCARCZSL3521-82-76 08:58:00 Test Item Value Reference Range Interpretation Comments MCH (test code = MCH) 28.8 pg 27.0-31.0 [facility] HospitalEnpokagLBCQWASESV3722-98-86 08:58:00 Test Item Value Reference Range Interpretation Comments Hct (test code = Hct) 30.4 36.0-48.0 [facility] HospitalOywiugrJATFWTILLU6686-08-18 08:58:00 Test Item Value Reference Range Interpretation Comments Eosinophils # (test code 0.2 See_Comment [A utomated message] The = Eosinophils #) system whic h generated this result tra nsmitted reference range : <=0.5. The reference r malinda was not used to int erpret this result as normal/abnormal . [facility] HospitalTuxsnngGQDVWQWBRU1835-50-96 08:58:00 Test Item Value Reference Range Interpretation Comments Segs-Bands # (test code = Segs-Bands #) 5.4 1.5-8.1 [facility] HospitalIumvnhbITUREYRSAW7217-27-08 08:58:00 Test Item Value Reference Range Interpretation Comments Monocytes # (test code 1.1 See_Comment [Aut omated message] The = Monocytes #) system which generated this result tra nsmitted reference range : <=0.8. The reference r malinda was not used to int erpret this result as normal/abnormal . [facility] HospitalMopexuvLSFXRBXFVZ6192-77-63 08:58:00 Test Item Value Reference Range Interpretation Comments Lymphocytes # (test code = Lymphocytes 2.1 1.0-5.5 #) [facility] HospitalQbzlgopEYCZZWBWJU2906-56-33 08:58:00 Test Item Value Reference Range Interpretation Comments Eosinophils (test code = 2.1 See_Comment [A utomated message] The Eosinophils) system which ge nerated this result tra nsmitted reference range : <=4.0. The reference r malinda was not used to int erpret this result as normal/abnormal . [facility] HospitalKzpdekrUFARAKPXLO0950-89-70 08:58:00 Test Item Value Reference Range Interpretation Comments Basophils (test code = 0.6 See_Comment [Aut omated message] The Basophils) system which ge nerated this result tra nsmitted reference range : <=1.0. The reference r malinda was not used to int erpret this result as normal/abnormal . [facility] HospitalAxrfefbLIQZKOJMVV9943-25-11 08:58:00 Test Item Value Reference Range Interpretation Comments Lymphocytes (test code = Lymphocytes) 23.7 20.0-40.0 [facility] HospitalBfifzogGMCCQHXLJH2830-96-33 08:58:00 Test Item Value Reference Range Interpretation Comments Monocytes (test code = Monocytes) 12.4 2.0-12.0 [facility] HospitalZxlnkdlFLBFQOIAJU2862-01-10 08:58:00 Test Item Value Reference Range Interpretation Comments Segs (test code = Segs) 61.2 45.0-75.0 [facility] HospitalEsogqygDKBXPARPYICK0376-58-85 08:58:00 Test Item Value Reference Range Interpretation Comments Chloride Lvl (test code = Chloride Lvl) 99 95-109 [facility] HospitalGkqutnuILOCXUISEBEY4099-07-30 08:58:00 Test Item Value Reference Range Interpretation Comments Potassium Lvl (test code = Potassium 2.5 3.5-5.1 Lvl) [facility] HospitalRoyqybbSNFTHMQNXTHH4235-21-83 08:58:00 Test Item Value Reference Range Interpretation Comments Sodium Lvl (test code = Sodium Lvl) 136 135-145 [facility] HospitalYkzcskqVRYZAAJOFHZY4509-33-97 08:58:00 Test Item Value Reference Range Interpretation Comments CO2 (test code = CO2) 25 24-32 [facility] HospitalXffhgpoCDKJTSBDOUWQ3605-54-68 08:58:00 Test Item Value Reference Range Interpretation Comments eGFR (test code = eGFR) 93 [facility] HospitalLcfnckzRXHDTQLUIFBA4910-00-81 08:58:00 Test Item Value Reference Range Interpretation Comments Calcium Lvl (test code = Calcium Lvl) 9.5 8.5-10.5 [facility] HospitalAxdzaidBYIYLDOCPWUQ1249-87-27 08:58:00 Test Item Value Reference Range Interpretation Comments AGAP (test code = AGAP) 14.5 10.0-20.0 [facility]XeecxtxQUWUTZSWMICD4996-37-18 08:58:00 Test Item Value Reference Range Interpretation Comments Glucose Lvl (test code = Glucose Lvl) 93 70-99 [facility]2016-10-04 09:47:00 Test Item Value Reference Range Interpretation Comments Magnesium Lvl (test code = Magnesium 1.5 1.8-2.4 Lvl) [facility]2016-10-04 09:47:00 Test Item Value Reference Range Interpretation Comments Magnesium Lvl (test code = Magnesium 1.5 1.8-2.4 Lvl) [facility]2016-10-04 09:47:00 Test Item Value Reference Range Interpretation Comments Magnesium Lvl (test code = Magnesium 1.5 1.8-2.4 Lvl) [facility]2016-10-04 09:47:00 Test Item Value Reference Range Interpretation Comments Magnesium Lvl (test code = Magnesium 1.5 1.8-2.4 Lvl) [facility]2016-10-04 09:47:00 Test Item Value Reference Range Interpretation Comments Magnesium Lvl (test code = Magnesium 1.5 1.8-2.4 Lvl) [facility]2016-10-04 05:40:00 Test Item Value Reference Range Interpretation Comments AST (test code = AST) 20 See_Comment [Auto mated message] The system which ge nerated this result transmit james reference range : <=37. The reference range was not used to interpr et this result as mary l/abnormal. [facility]2016-10-04 05:40:00 Test Item Value Reference Range Interpretation Comments Bili Total (test code = Bili Total) 0.8 0.2-1.3 [facility]2016-10-04 05:40:00 Test Item Value Reference Range Interpretation Comments Alk Phos (test code = Alk Phos) 31 39-136 [facility]2016-10-04 05:40:00 Test Item Value Reference Range Interpretation Comments eGFR (test code = eGFR) 88 [facility]2016-10-04 05:40:00 Test Item Value Reference Range Interpretation Comments Total Protein (test code = Total 6.1 6.4-8.4 Protein) [facility]2016-10-04 05:40:00 Test Item Value Reference Range Interpretation Comments Albumin Lvl (test code = Albumin Lvl) 2.8 3.5-5.0 [facility]2016-10-04 05:40:00 Test Item Value Reference Range Interpretation Comments CO2 (test code = CO2) 27 24-32 [facility]2016-10-04 05:40:00 Test Item Value Reference Range Interpretation Comments ALT (test code = ALT) 20 See_Comment [Auto mated message] The system which ge nerated this result transmit james reference range : <=65. The reference range was not used to interpr et this result as mary l/abnormal. [facility]2016-10-04 05:40:00 Test Item Value Reference Range Interpretation Comments A/G Ratio (test code = A/G Ratio) 0.8 0.7-1.6 [facility]2016-10-04 05:40:00 Test Item Value Reference Range Interpretation Comments Globulin (test code = Globulin) 3.3 2.7-4.2 [facility]2016-10-04 05:40:00 Test Item Value Reference Range Interpretation Comments AGAP (test code = AGAP) 15.9 10.0-20.0 [facility]2016-10-04 05:40:00 Test Item Value Reference Range Interpretation Comments B/C Ratio (test code = B/C Ratio) 33 6-25 [facility]2016-10-04 05:40:00 Test Item Value Reference Range Interpretation Comments Calcium Lvl (test code = Calcium Lvl) 9.1 8.5-10.5 [facility]2016-10-04 05:40:00 Test Item Value Reference Range Interpretation Comments Potassium Lvl (test code = Potassium 2.9 3.5-5.1 Lvl) [facility]2016-10-04 05:40:00 Test Item Value Reference Range Interpretation Comments Chloride Lvl (test code = Chloride Lvl) 100 95-109 [facility]2016-10-04 05:40:00 Test Item Value Reference Range Interpretation Comments Sodium Lvl (test code = Sodium Lvl) 140 135-145 [facility]2016-10-04 05:40:00 Test Item Value Reference Range Interpretation Comments Creatinine Lvl (test code = Creatinine 0.70 0.50-1.40 Lvl) [facility]2016-10-04 05:40:00 Test Item Value Reference Range Interpretation Comments BUN (test code = BUN) 23 7-22 [facility]2016-10-04 05:40:00 Test Item Value Reference Range Interpretation Comments Glucose Lvl (test code = Glucose Lvl) 113 70-99 [facility]2016-10-04 05:40:00 Test Item Value Reference Range Interpretation Comments AST (test code = AST) 20 See_Comment [Auto mated message] The system which ge nerated this result transmit james reference range : <=37. The reference range was not used to interpr et this result as mary l/abnormal. [facility]2016-10-04 05:40:00 Test Item Value Reference Range Interpretation Comments Bili Total (test code = Bili Total) 0.8 0.2-1.3 [facility]2016-10-04 05:40:00 Test Item Value Reference Range Interpretation Comments Alk Phos (test code = Alk Phos) 31 39-136 [facility]2016-10-04 05:40:00 Test Item Value Reference Range Interpretation Comments eGFR (test code = eGFR) 88 [facility]2016-10-04 05:40:00 Test Item Value Reference Range Interpretation Comments Total Protein (test code = Total 6.1 6.4-8.4 Protein) [facility]2016-10-04 05:40:00 Test Item Value Reference Range Interpretation Comments Albumin Lvl (test code = Albumin Lvl) 2.8 3.5-5.0 [place] 151526-10-04 05:40:00 Test Item Value Reference Range Interpretation Comments CO2 (test code = CO2) 27 24-32 [facility]2016-10-04 05:40:00 Test Item Value Reference Range Interpretation Comments ALT (test code = ALT) 20 See_Comment [Auto mated message] The system which ge nerated this result transmit james reference range : <=65. The reference range was not used to interpr et this result as mary l/abnormal. [facility]2016-10-04 05:40:00 Test Item Value Reference Range Interpretation Comments A/G Ratio (test code = A/G Ratio) 0.8 0.7-1.6 [facility]2016-10-04 05:40:00 Test Item Value Reference Range Interpretation Comments Globulin (test code = Globulin) 3.3 2.7-4.2 [facility]2016-10-04 05:40:00 Test Item Value Reference Range Interpretation Comments AGAP (test code = AGAP) 15.9 10.0-20.0 [facility]2016-10-04 05:40:00 Test Item Value Reference Range Interpretation Comments B/C Ratio (test code = B/C Ratio) 33 6-25 [facility]2016-10-04 05:40:00 Test Item Value Reference Range Interpretation Comments Calcium Lvl (test code = Calcium Lvl) 9.1 8.5-10.5 [facility]2016-10-04 05:40:00 Test Item Value Reference Range Interpretation Comments Potassium Lvl (test code = Potassium 2.9 3.5-5.1 Lvl) [facility]2016-10-04 05:40:00 Test Item Value Reference Range Interpretation Comments Chloride Lvl (test code = Chloride Lvl) 100 95-109 [facility]2016-10-04 05:40:00 Test Item Value Reference Range Interpretation Comments Sodium Lvl (test code = Sodium Lvl) 140 135-145 [facility]2016-10-04 05:40:00 Test Item Value Reference Range Interpretation Comments Creatinine Lvl (test code = Creatinine 0.70 0.50-1.40 Lvl) [facility]2016-10-04 05:40:00 Test Item Value Reference Range Interpretation Comments BUN (test code = BUN) 23 7-22 [facility]2016-10-04 05:40:00 Test Item Value Reference Range Interpretation Comments Glucose Lvl (test code = Glucose Lvl) 113 70-99 [facility]2016-10-04 05:40:00 Test Item Value Reference Range Interpretation Comments AST (test code = AST) 20 See_Comment [Auto mated message] The system which ge nerated this result transmit james reference range : <=37. The reference range was not used to interpr et this result as mary l/abnormal. [place] 151526-10-04 05:40:00 Test Item Value Reference Range Interpretation Comments Bili Total (test code = Bili Total) 0.8 0.2-1.3 [facility]2016-10-04 05:40:00 Test Item Value Reference Range Interpretation Comments Alk Phos (test code = Alk Phos) 31 39-136 [facility]2016-10-04 05:40:00 Test Item Value Reference Range Interpretation Comments eGFR (test code = eGFR) 88 [facility]2016-10-04 05:40:00 Test Item Value Reference Range Interpretation Comments Total Protein (test code = Total 6.1 6.4-8.4 Protein) [facility]2016-10-04 05:40:00 Test Item Value Reference Range Interpretation Comments Albumin Lvl (test code = Albumin Lvl) 2.8 3.5-5.0 [facility]2016-10-04 05:40:00 Test Item Value Reference Range Interpretation Comments CO2 (test code = CO2) 27 24-32 [facility]2016-10-04 05:40:00 Test Item Value Reference Range Interpretation Comments ALT (test code = ALT) 20 See_Comment [Auto mated message] The system which ge nerated this result transmit james reference range : <=65. The reference range was not used to interpr et this result as mary l/abnormal. [facility]2016-10-04 05:40:00 Test Item Value Reference Range Interpretation Comments A/G Ratio (test code = A/G Ratio) 0.8 0.7-1.6 [facility]2016-10-04 05:40:00 Test Item Value Reference Range Interpretation Comments Globulin (test code = Globulin) 3.3 2.7-4.2 [facility]2016-10-04 05:40:00 Test Item Value Reference Range Interpretation Comments AGAP (test code = AGAP) 15.9 10.0-20.0 [facility]2016-10-04 05:40:00 Test Item Value Reference Range Interpretation Comments B/C Ratio (test code = B/C Ratio) 33 6-25 [facility]2016-10-04 05:40:00 Test Item Value Reference Range Interpretation Comments Calcium Lvl (test code = Calcium Lvl) 9.1 8.5-10.5 [facility]2016-10-04 05:40:00 Test Item Value Reference Range Interpretation Comments Potassium Lvl (test code = Potassium 2.9 3.5-5.1 Lvl) [facility]2016-10-04 05:40:00 Test Item Value Reference Range Interpretation Comments Chloride Lvl (test code = Chloride Lvl) 100 95-109 [facility]2016-10-04 05:40:00 Test Item Value Reference Range Interpretation Comments Sodium Lvl (test code = Sodium Lvl) 140 135-145 [facility]2016-10-04 05:40:00 Test Item Value Reference Range Interpretation Comments Creatinine Lvl (test code = Creatinine 0.70 0.50-1.40 Lvl) [facility]2016-10-04 05:40:00 Test Item Value Reference Range Interpretation Comments BUN (test code = BUN) 23 7-22 [facility]2016-10-04 05:40:00 Test Item Value Reference Range Interpretation Comments Glucose Lvl (test code = Glucose Lvl) 113 70-99 [facility]2016-10-04 05:40:00 Test Item Value Reference Range Interpretation Comments AST (test code = AST) 20 See_Comment [Auto mated message] The system which ge nerated this result transmit james reference range : <=37. The reference range was not used to interpr et this result as mary l/abnormal. [facility]2016-10-04 05:40:00 Test Item Value Reference Range Interpretation Comments Bili Total (test code = Bili Total) 0.8 0.2-1.3 [facility]2016-10-04 05:40:00 Test Item Value Reference Range Interpretation Comments Alk Phos (test code = Alk Phos) 31 39-136 [facility]2016-10-04 05:40:00 Test Item Value Reference Range Interpretation Comments eGFR (test code = eGFR) 88 [facility]2016-10-04 05:40:00 Test Item Value Reference Range Interpretation Comments Total Protein (test code = Total 6.1 6.4-8.4 Protein) [facility]2016-10-04 05:40:00 Test Item Value Reference Range Interpretation Comments Albumin Lvl (test code = Albumin Lvl) 2.8 3.5-5.0 [facility]2016-10-04 05:40:00 Test Item Value Reference Range Interpretation Comments CO2 (test code = CO2) 27 24-32 [facility]2016-10-04 05:40:00 Test Item Value Reference Range Interpretation Comments ALT (test code = ALT) 20 See_Comment [Auto mated message] The system which ge nerated this result transmit james reference range : <=65. The reference range was not used to interpr et this result as mary l/abnormal. [facility]2016-10-04 05:40:00 Test Item Value Reference Range Interpretation Comments A/G Ratio (test code = A/G Ratio) 0.8 0.7-1.6 [facility]2016-10-04 05:40:00 Test Item Value Reference Range Interpretation Comments Globulin (test code = Globulin) 3.3 2.7-4.2 [facility]2016-10-04 05:40:00 Test Item Value Reference Range Interpretation Comments AGAP (test code = AGAP) 15.9 10.0-20.0 [facility]2016-10-04 05:40:00 Test Item Value Reference Range Interpretation Comments B/C Ratio (test code = B/C Ratio) 33 6-25 [facility]2016-10-04 05:40:00 Test Item Value Reference Range Interpretation Comments Calcium Lvl (test code = Calcium Lvl) 9.1 8.5-10.5 [facility]2016-10-04 05:40:00 Test Item Value Reference Range Interpretation Comments Potassium Lvl (test code = Potassium 2.9 3.5-5.1 Lvl) [facility]2016-10-04 05:40:00 Test Item Value Reference Range Interpretation Comments Chloride Lvl (test code = Chloride Lvl) 100 95-109 [facility]2016-10-04 05:40:00 Test Item Value Reference Range Interpretation Comments Sodium Lvl (test code = Sodium Lvl) 140 135-145 [facility]2016-10-04 05:40:00 Test Item Value Reference Range Interpretation Comments Creatinine Lvl (test code = Creatinine 0.70 0.50-1.40 Lvl) [facility]2016-10-04 05:40:00 Test Item Value Reference Range Interpretation Comments BUN (test code = BUN) 23 7-22 [facility]2016-10-04 05:40:00 Test Item Value Reference Range Interpretation Comments Glucose Lvl (test code = Glucose Lvl) 113 70-99 [place] 151526-10-04 05:40:00 Test Item Value Reference Range Interpretation Comments AST (test code = AST) 20 See_Comment [Auto mated message] The system which ge nerated this result transmit james reference range : <=37. The reference range was not used to interpr et this result as mary l/abnormal. [facility]2016-10-04 05:40:00 Test Item Value Reference Range Interpretation Comments Bili Total (test code = Bili Total) 0.8 0.2-1.3 [facility]2016-10-04 05:40:00 Test Item Value Reference Range Interpretation Comments Alk Phos (test code = Alk Phos) 31 39-136 [place] 151526-10-04 05:40:00 Test Item Value Reference Range Interpretation Comments eGFR (test code = eGFR) 88 [facility]2016-10-04 05:40:00 Test Item Value Reference Range Interpretation Comments Total Protein (test code = Total 6.1 6.4-8.4 Protein) [facility]2016-10-04 05:40:00 Test Item Value Reference Range Interpretation Comments Albumin Lvl (test code = Albumin Lvl) 2.8 3.5-5.0 [facility]2016-10-04 05:40:00 Test Item Value Reference Range Interpretation Comments CO2 (test code = CO2) 27 24-32 [facility]2016-10-04 05:40:00 Test Item Value Reference Range Interpretation Comments ALT (test code = ALT) 20 See_Comment [Auto mated message] The system which ge nerated this result transmit james reference range : <=65. The reference range was not used to interpr et this result as mary l/abnormal. [place] 151526-10-04 05:40:00 Test Item Value Reference Range Interpretation Comments A/G Ratio (test code = A/G Ratio) 0.8 0.7-1.6 [facility]2016-10-04 05:40:00 Test Item Value Reference Range Interpretation Comments Globulin (test code = Globulin) 3.3 2.7-4.2 [facility]2016-10-04 05:40:00 Test Item Value Reference Range Interpretation Comments AGAP (test code = AGAP) 15.9 10.0-20.0 [facility]2016-10-04 05:40:00 Test Item Value Reference Range Interpretation Comments B/C Ratio (test code = B/C Ratio) 33 6-25 [facility]2016-10-04 05:40:00 Test Item Value Reference Range Interpretation Comments Calcium Lvl (test code = Calcium Lvl) 9.1 8.5-10.5 [facility]2016-10-04 05:40:00 Test Item Value Reference Range Interpretation Comments Potassium Lvl (test code = Potassium 2.9 3.5-5.1 Lvl) [facility]2016-10-04 05:40:00 Test Item Value Reference Range Interpretation Comments Chloride Lvl (test code = Chloride Lvl) 100 95-109 [facility]2016-10-04 05:40:00 Test Item Value Reference Range Interpretation Comments Sodium Lvl (test code = Sodium Lvl) 140 135-145 [facility]2016-10-04 05:40:00 Test Item Value Reference Range Interpretation Comments Creatinine Lvl (test code = Creatinine 0.70 0.50-1.40 Lvl) [facility]2016-10-04 05:40:00 Test Item Value Reference Range Interpretation Comments BUN (test code = BUN) 23 7-22 [facility]2016-10-04 05:40:00 Test Item Value Reference Range Interpretation Comments Glucose Lvl (test code = Glucose Lvl) 113 70-99 [facility] [id number] 03:24:00 Test Item Value Reference Range Interpretation Comments Troponin-T (test code 0.092 See_Comment [Auto mated message] The = Troponin-T) system which g enerated this result transmit james reference range : <=0.100. The reference r malinda was not used to interpr et this result as mary l/abnormal. [facility] [id number] 03:24:00 Test Item Value Reference Range Interpretation Comments Troponin-I (test code 0.39 See_Comment [Auto mated message] The = Troponin-I) system which g enerated this result transmit james reference range : <=0.40. The reference r malinda was not used to interpr et this result as mary l/abnormal. [facility] [id number] 03:24:00 Test Item Value Reference Range Interpretation Comments Total CK (test code = Total CK) 42 [facility] [id number] 03:24:00 Test Item Value Reference Range Interpretation Comments Troponin-T (test code 0.092 See_Comment [Auto mated message] The = Troponin-T) system which g enerated this result transmit james reference range : <=0.100. The reference r malinda was not used to interpr et this result as mary l/abnormal. [facility] [id number] 03:24:00 Test Item Value Reference Range Interpretation Comments Troponin-I (test code 0.39 See_Comment [Auto mated message] The = Troponin-I) system which g enerated this result transmit james reference range : <=0.40. The reference r malinda was not used to interpr et this result as mary l/abnormal. [facility]jesseT[facility] [id number] 03:24:00 Test Item Value Reference Range Interpretation Comments Total CK (test code = Total CK) 42 [facility]Collected Inc.[id number] 03:24:00 Test Item Value Reference Range Interpretation Comments Troponin-T (test code 0.092 See_Comment [Auto mated message] The = Troponin-T) system which g enerated this result transmit james reference range : <=0.100. The reference r malinda was not used to interpr et this result as mary l/abnormal. [facility] CenterjesseCollected Inc.[id number] 03:24:00 Test Item Value Reference Range Interpretation Comments Troponin-I (test code 0.39 See_Comment [Auto mated message] The = Troponin-I) system which g enerated this result transmit james reference range : <=0.40. The reference r malinda was not used to interpr et this result as mary l/abnormal. [facility] 03:24:00 Test Item Value Reference Range Interpretation Comments Total CK (test code = Total CK) 42 [facility]jesse[facility] [id number] 03:24:00 Test Item Value Reference Range Interpretation Comments Troponin-T (test code 0.092 See_Comment [Auto mated message] The = Troponin-T) system which g enerated this result transmit james reference range : <=0.100. The reference r malinda was not used to interpr et this result as mary l/abnormal. [facility] 03:24:00 Test Item Value Reference Range Interpretation Comments Troponin-I (test code 0.39 See_Comment [Auto mated message] The = Troponin-I) system which g enerated this result transmit james reference range : <=0.40. The reference r malinda was not used to interpr et this result as mary l/abnormal. [facility] 03:24:00 Test Item Value Reference Range Interpretation Comments Total CK (test code = Total CK) 42 [facility] [employer]2016-10-04 03:24:00 Test Item Value Reference Range Interpretation Comments Troponin-T (test code 0.092 See_Comment [Auto mated message] The = Troponin-T) system which g enerated this result transmit james reference range : <=0.100. The reference r malinda was not used to interpr et this result as mary l/abnormal. [facility] [employer]2016-10-04 03:24:00 Test Item Value Reference Range Interpretation Comments Troponin-I (test code 0.39 See_Comment [Auto mated message] The = Troponin-I) system which g enerated this result transmit james reference range : <=0.40. The reference r malinda was not used to interpr et this result as mary l/abnormal. [facility] [employer]2016-10-04 03:24:00 Test Item Value Reference Range Interpretation Comments Total CK (test code = Total CK) 42 [facility] [employer]2016-10-03 23:47:00 Test Item Value Reference Range Interpretation Comments Troponin-T (test code 0.153 See_Comment [Auto mated message] The = Troponin-T) system which g enerated this result transmit james reference range : <=0.100. The reference r malinda was not used to interpr et this result as mary l/abnormal. [facility] [employer]2016-10-03 23:47:00 Test Item Value Reference Range Interpretation Comments Troponin-I (test code 0.42 See_Comment [Auto mated message] The = Troponin-I) system which g enerated this result transmit james reference range : <=0.40. The reference r malinda was not used to interpr et this result as mary l/abnormal. [facility] [employer]2016-10-03 23:47:00 Test Item Value Reference Range Interpretation Comments Total CK (test code = Total CK) 44 191 [facility] [employer]2016-10-03 23:47:00 Test Item Value Reference Range Interpretation Comments Troponin-T (test code 0.153 See_Comment [Auto mated message] The = Troponin-T) system which g enerated this result transmit james reference range : <=0.100. The reference r malinda was not used to interpr et this result as mary l/abnormal. [facility] [employer]2016-10-03 23:47:00 Test Item Value Reference Range Interpretation Comments Troponin-I (test code 0.42 See_Comment [Auto mated message] The = Troponin-I) system which g enerated this result transmit james reference range : <=0.40. The reference r malinda was not used to interpr et this result as mary l/abnormal. [facility] [employer]2016-10-03 23:47:00 Test Item Value Reference Range Interpretation Comments Total CK (test code = Total CK) 44 12-191 [facility] [employer]2016-10-03 23:47:00 Test Item Value Reference Range Interpretation Comments Troponin-T (test code 0.153 See_Comment [Auto mated message] The = Troponin-T) system which g enerated this result transmit james reference range : <=0.100. The reference r malinda was not used to interpr et this result as mary l/abnormal. [facility] [employer]2016-10-03 23:47:00 Test Item Value Reference Range Interpretation Comments Troponin-I (test code 0.42 See_Comment [Auto mated message] The = Troponin-I) system which g enerated this result transmit james reference range : <=0.40. The reference r malinda was not used to interpr et this result as mary l/abnormal. [facility] [id number] 23:47:00 Test Item Value Reference Range Interpretation Comments Total CK (test code = Total CK) 44 12-191 [facility] [id number] 23:47:00 Test Item Value Reference Range Interpretation Comments Troponin-T (test code 0.153 See_Comment [Auto mated message] The = Troponin-T) system which g enerated this result transmit james reference range : <=0.100. The reference r malinda was not used to interpr et this result as mary l/abnormal. [facility] [id number] 23:47:00 Test Item Value Reference Range Interpretation Comments Troponin-I (test code 0.42 See_Comment [Auto mated message] The = Troponin-I) system which g enerated this result transmit james reference range : <=0.40. The reference r malinda was not used to interpr et this result as mary l/abnormal. [facility] [id number] 23:47:00 Test Item Value Reference Range Interpretation Comments Total CK (test code = Total CK) 44 12-191 [facility] HospitalT[facility] [id number] 23:47:00 Test Item Value Reference Range Interpretation Comments Troponin-T (test code 0.153 See_Comment [Auto mated message] The = Troponin-T) system which g enerated this result transmit james reference range : <=0.100. The reference r malinda was not used to interpr et this result as mary l/abnormal. [facility] 23:47:00 Test Item Value Reference Range Interpretation Comments Troponin-I (test code 0.42 See_Comment [Auto mated message] The = Troponin-I) system which g enerated this result transmit james reference range : <=0.40. The reference r malinda was not used to interpr et this result as mary l/abnormal. [facility] [employer]2016-10-03 23:47:00 Test Item Value Reference Range Interpretation Comments Total CK (test code = Total CK) 44 191 [facility] HospitalCollected Inc.[id number] 19:56:00 Test Item Value Reference Range Interpretation Comments Troponin-T (test code 0.149 See_Comment [Auto mated message] The = Troponin-T) system which g enerated this result transmit james reference range : <=0.100. The reference r malinda was not used to interpr et this result as mary l/abnormal. [facility] [employer]2016-10-03 19:56:00 Test Item Value Reference Range Interpretation Comments Troponin-I (test code 0.44 See_Comment [Auto mated message] The = Troponin-I) system which g enerated this result transmit james reference range : <=0.40. The reference r malinda was not used to interpr et this result as mary l/abnormal. [facility] 19:56:00 Test Item Value Reference Range Interpretation Comments Total CK (test code = Total CK) 46 [facility] 19:56:00 Test Item Value Reference Range Interpretation Comments Troponin-T (test code 0.149 See_Comment [Auto mated message] The = Troponin-T) system which g enerated this result transmit james reference range : <=0.100. The reference r malinda was not used to interpr et this result as mary l/abnormal. [facility] [employer]2016-10-03 19:56:00 Test Item Value Reference Range Interpretation Comments Troponin-I (test code 0.44 See_Comment [Auto mated message] The = Troponin-I) system which g enerated this result transmit james reference range : <=0.40. The reference r malinda was not used to interpr et this result as mary l/abnormal. [facility] [employer]2016-10-03 19:56:00 Test Item Value Reference Range Interpretation Comments Total CK (test code = Total CK) 46 12191 [facility] [employer]2016-10-03 19:56:00 Test Item Value Reference Range Interpretation Comments Troponin-T (test code 0.149 See_Comment [Auto mated message] The = Troponin-T) system which g enerated this result transmit james reference range : <=0.100. The reference r malinda was not used to interpr et this result as mary l/abnormal. [facility] [employer]2016-10-03 19:56:00 Test Item Value Reference Range Interpretation Comments Troponin-I (test code 0.44 See_Comment [Auto mated message] The = Troponin-I) system which g enerated this result transmit james reference range : <=0.40. The reference r malinda was not used to interpr et this result as mary l/abnormal. [facility] [employer]2016-10-03 19:56:00 Test Item Value Reference Range Interpretation Comments Total CK (test code = Total CK) 46 191 [facility] 19:56:00 Test Item Value Reference Range Interpretation Comments Troponin-T (test code 0.149 See_Comment [Auto mated message] The = Troponin-T) system which g enerated this result transmit james reference range : <=0.100. The reference r malinda was not used to interpr et this result as mary l/abnormal. [facility] [employer]2016-10-03 19:56:00 Test Item Value Reference Range Interpretation Comments Troponin-I (test code 0.44 See_Comment [Auto mated message] The = Troponin-I) system which g enerated this result transmit james reference range : <=0.40. The reference r malinda was not used to interpr et this result as mary l/abnormal. [facility] [employer]2016-10-03 19:56:00 Test Item Value Reference Range Interpretation Comments Total CK (test code = Total CK) 46 191 [facility] [employer]2016-10-03 19:56:00 Test Item Value Reference Range Interpretation Comments Troponin-T (test code 0.149 See_Comment [Auto mated message] The = Troponin-T) system which g enerated this result transmit james reference range : <=0.100. The reference r malinda was not used to interpr et this result as mary l/abnormal. [facility] [employer]2016-10-03 19:56:00 Test Item Value Reference Range Interpretation Comments Troponin-I (test code 0.44 See_Comment [Auto mated message] The = Troponin-I) system which g enerated this result transmit james reference range : <=0.40. The reference r malinda was not used to interpr et this result as mary l/abnormal. [facility]2016-10-03 19:56:00 Test Item Value Reference Range Interpretation Comments Total CK (test code = Total CK) 46 12-191 [id number] 17:32:00 Test Item Value Reference Range Interpretation Comments Basophils # (test code 0.1 See_Comment [Aut omated message] The = Basophils #) system which generated this result tra nsmitted reference range : <=0.2. The reference r malinda was not used to int erpret this result as normal/abnormal . [facility] [id number] 17:32:00 Test Item Value Reference Range Interpretation Comments Lymphocytes (test code = Lymphocytes) 14.6 20.0-40.0 [facility] [id number] 17:32:00 Test Item Value Reference Range Interpretation Comments Segs-Bands # (test code = Segs-Bands #) 4.5 1.5-8.1 [facility] [id number] 17:32:00 Test Item Value Reference Range Interpretation Comments Monocytes (test code = Monocytes) 4.2 2.0-12.0 [facility] [id number] 17:32:00 Test Item Value Reference Range Interpretation Comments Basophils (test code = 0.9 See_Comment [Aut omated message] The Basophils) system which ge nerated this result tra nsmitted reference range : <=1.0. The reference r malinda was not used to int erpret this result as normal/abnormal . [facility] [id number] 17:32:00 Test Item Value Reference Range Interpretation Comments Eosinophils # (test code 0.4 See_Comment [A utomated message] The = Eosinophils #) system whic h generated this result tra nsmitted reference range : <=0.5. The reference r malinda was not used to int erpret this result as normal/abnormal . [facility] [id number] 17:32:00 Test Item Value Reference Range Interpretation Comments Monocytes # (test code 0.3 See_Comment [Aut omated message] The = Monocytes #) system which generated this result tra nsmitted reference range : <=0.8. The reference r malinda was not used to int erpret this result as normal/abnormal . [facility] HospitalLdtprphRFNJYZSDBQ3003-36-60 17:32:00 Test Item Value Reference Range Interpretation Comments Basophils # (test code 0.1 See_Comment [Aut omated message] The = Basophils #) system which generated this result tra nsmitted reference range : <=0.2. The reference r malinda was not used to int erpret this result as normal/abnormal . [facility] HospitalIsdhfxpZAKIERVFBH5759-88-98 17:32:00 Test Item Value Reference Range Interpretation Comments Lymphocytes (test code = Lymphocytes) 14.6 20.0-40.0 [facility] HospitalAejdgniDDFRCSRQBK1467-43-02 17:32:00 Test Item Value Reference Range Interpretation Comments Lymphocytes # (test code = Lymphocytes 0.9 1.0-5.5 #) [facility] HospitalOnedseiZFYTJPDCMN7460-61-39 17:32:00 Test Item Value Reference Range Interpretation Comments Segs-Bands # (test code = Segs-Bands #) 4.5 1.5-8.1 [facility] HospitalVxhfaxfNPGFNEBOJP5248-75-31 17:32:00 Test Item Value Reference Range Interpretation Comments Monocytes (test code = Monocytes) 4.2 2.0-12.0 [facility] HospitalOwxdowvOCIBPFNWNH6925-76-04 17:32:00 Test Item Value Reference Range Interpretation Comments Basophils (test code = 0.9 See_Comment [Aut omated message] The Basophils) system which ge nerated this result tra nsmitted reference range : <=1.0. The reference r malinda was not used to int erpret this result as normal/abnormal . [facility] HospitalIgvvrkqHZFQEOYIYQ9943-64-02 17:32:00 Test Item Value Reference Range Interpretation Comments Eosinophils # (test code 0.4 See_Comment [A utomated message] The = Eosinophils #) system whic h generated this result tra nsmitted reference range : <=0.5. The reference r malinda was not used to int erpret this result as normal/abnormal . [facility] HospitalQelrgrbWKGQASXYPJ0278-54-70 17:32:00 Test Item Value Reference Range Interpretation Comments Monocytes # (test code 0.3 See_Comment [Aut omated message] The = Monocytes #) system which generated this result tra nsmitted reference range : <=0.8. The reference r malinda was not used to int erpret this result as normal/abnormal . [facility] HospitalRyqpsfpYVTASXRIOE0023-97-75 17:32:00 Test Item Value Reference Range Interpretation Comments Lymphocytes # (test code = Lymphocytes 0.9 1.0-5.5 #) [facility] HospitalYkutagsWFBVEOZXFU2522-28-73 17:32:00 Test Item Value Reference Range Interpretation Comments Segs (test code = Segs) 74.1 45.0-75.0 [facility] HospitalWqmyhfoPKGJKNDXEO8848-60-56 17:32:00 Test Item Value Reference Range Interpretation Comments Eosinophils (test code = 6.2 See_Comment [A utomated message] The Eosinophils) system which ge nerated this result tra nsmitted reference range : <=4.0. The reference r malinda was not used to int erpret this result as normal/abnormal . [facility] HospitalWendsykQPTKRJUIZK8515-96-18 17:32:00 Test Item Value Reference Range Interpretation Comments MPV (test code = MPV) 6.7 7.4-10.4 [facility] HospitalFdeiwofEUETONZCNW9942-45-08 17:32:00 Test Item Value Reference Range Interpretation Comments Platelet (test code = Platelet) 300 133-450 [facility] HospitalWvrmzyqDCAACWSLML7195-45-63 17:32:00 Test Item Value Reference Range Interpretation Comments Segs (test code = Segs) 74.1 45.0-75.0 [facility] HospitalFrsxxteEQMGTPACTY9614-38-56 17:32:00 Test Item Value Reference Range Interpretation Comments Hct (test code = Hct) 31.2 36.0-48.0 [facility] HospitalTlixhdvHOMXNEKXJQ8233-60-75 17:32:00 Test Item Value Reference Range Interpretation Comments Hgb (test code = Hgb) 10.5 12.0-16.0 [facility] HospitalFrydxoeTSJVNSOTDG3394-13-55 17:32:00 Test Item Value Reference Range Interpretation Comments MCV (test code = MCV) 84.5 80.0-98.0 [facility] HospitalZstzdtrZJOUMNGASB8404-88-19 17:32:00 Test Item Value Reference Range Interpretation Comments MCHC (test code = MCHC) 33.6 32.0-36.0 [facility] HospitalNodbttpJDFBRHDVEL8330-42-06 17:32:00 Test Item Value Reference Range Interpretation Comments MCH (test code = MCH) 28.4 pg 27.0-31.0 [facility] HospitalCyuqhgwJDVJWCICLY0739-42-50 17:32:00 Test Item Value Reference Range Interpretation Comments RDW (test code = RDW) 13.5 11.5-14.5 [facility] HospitalHkmqckmGBABWZLWNW6281-31-82 17:32:00 Test Item Value Reference Range Interpretation Comments WBC (test code = WBC) 6.0 3.7-10.4 [facility] HospitalNzsucaqGEDLDPLMHP6669-97-88 17:32:00 Test Item Value Reference Range Interpretation Comments RBC (test code = RBC) 3.69 4.20-5.40 [facility] HospitalNyhnbuhPZRROUOMKU9250-94-37 17:32:00 Test Item Value Reference Range Interpretation Comments Eosinophils (test code = 6.2 See_Comment [A utomated message] The Eosinophils) system which ge nerated this result tra nsmitted reference range : <=4.0. The reference r malinda was not used to int erpret this result as normal/abnormal . [facility] HospitalYmitkrfYEQXMOOHKI1143-78-94 17:32:00 Test Item Value Reference Range Interpretation Comments MPV (test code = MPV) 6.7 7.4-10.4 [facility] HospitalMcbzfqhFZMHQEULNN8212-79-09 17:32:00 Test Item Value Reference Range Interpretation Comments Platelet (test code = Platelet) 300 133-450 [facility] HospitalKlprlvwRSUMPXNDPV9280-42-47 17:32:00 Test Item Value Reference Range Interpretation Comments Hct (test code = Hct) 31.2 36.0-48.0 [facility] HospitalWrrlxytGWKHADBUUC1983-05-50 17:32:00 Test Item Value Reference Range Interpretation Comments Hgb (test code = Hgb) 10.5 12.0-16.0 [facility] HospitalPquyptlAQUIAXVEYH1009-85-53 17:32:00 Test Item Value Reference Range Interpretation Comments MCV (test code = MCV) 84.5 80.0-98.0 [facility] HospitalVqteewqCOJFMOMIWG3487-80-36 17:32:00 Test Item Value Reference Range Interpretation Comments MCHC (test code = MCHC) 33.6 32.0-36.0 [facility] HospitalUuhtcdzWMKHLNQYZZ4613-67-34 17:32:00 Test Item Value Reference Range Interpretation Comments MCH (test code = MCH) 28.4 pg 27.0-31.0 [facility] HospitalRkrxzgaBRNHRYYTRR7943-40-33 17:32:00 Test Item Value Reference Range Interpretation Comments RDW (test code = RDW) 13.5 11.5-14.5 [facility] HospitalJpuhiprDEDGNRWFKM0634-90-27 17:32:00 Test Item Value Reference Range Interpretation Comments WBC (test code = WBC) 6.0 3.7-10.4 [facility] HospitalVvvanzhTVWITIZIIK6241-16-84 17:32:00 Test Item Value Reference Range Interpretation Comments RBC (test code = RBC) 3.69 4.20-5.40 [facility] HospitalEhajqzqVKEQTSUKDF9559-96-79 17:32:00 Test Item Value Reference Range Interpretation Comments Basophils # (test code 0.1 See_Comment [Aut omated message] The = Basophils #) system which generated this result tra nsmitted reference range : <=0.2. The reference r malinda was not used to int erpret this result as normal/abnormal . [facility] HospitalPqokresDIQJTPKHBZ0420-63-13 17:32:00 Test Item Value Reference Range Interpretation Comments Lymphocytes (test code = Lymphocytes) 14.6 20.0-40.0 [facility] HospitalHewmofbJTBZLISGAQ5480-12-08 17:32:00 Test Item Value Reference Range Interpretation Comments Segs-Bands # (test code = Segs-Bands #) 4.5 1.5-8.1 [facility] HospitalOzwkycvHWZWZYIYXL8213-11-83 17:32:00 Test Item Value Reference Range Interpretation Comments Monocytes (test code = Monocytes) 4.2 2.0-12.0 [facility] HospitalRdoivcqQWCLKTQBYN1971-38-73 17:32:00 Test Item Value Reference Range Interpretation Comments Basophils (test code = 0.9 See_Comment [Aut omated message] The Basophils) system which ge nerated this result tra nsmitted reference range : <=1.0. The reference r malinda was not used to int erpret this result as normal/abnormal . [facility] HospitalClvuddhUGCLPLJNYZ8511-61-06 17:32:00 Test Item Value Reference Range Interpretation Comments Eosinophils # (test code 0.4 See_Comment [A utomated message] The = Eosinophils #) system whic h generated this result tra nsmitted reference range : <=0.5. The reference r malinda was not used to int erpret this result as normal/abnormal . [facility] HospitalCckwqmaNIQRNVYMLO0744-32-94 17:32:00 Test Item Value Reference Range Interpretation Comments Monocytes # (test code 0.3 See_Comment [Aut omated message] The = Monocytes #) system which generated this result tra nsmitted reference range : <=0.8. The reference r malinda was not used to int erpret this result as normal/abnormal . [facility] HospitalMuxdgxaNJYMDDDHFU1026-25-17 17:32:00 Test Item Value Reference Range Interpretation Comments Lymphocytes # (test code = Lymphocytes 0.9 1.0-5.5 #) [facility] HospitalCejjdamVQBLKOGVMV0501-97-76 17:32:00 Test Item Value Reference Range Interpretation Comments Segs (test code = Segs) 74.1 45.0-75.0 [facility] HospitalWdganocPRBBAQVTMS1048-50-13 17:32:00 Test Item Value Reference Range Interpretation Comments Eosinophils (test code = 6.2 See_Comment [A utomated message] The Eosinophils) system which ge nerated this result tra nsmitted reference range : <=4.0. The reference r malinda was not used to int erpret this result as normal/abnormal . [facility] HospitalUwceiykKSGGMTFFVF8384-79-68 17:32:00 Test Item Value Reference Range Interpretation Comments MPV (test code = MPV) 6.7 7.4-10.4 [facility] HospitalFxxsgocDGMMKQJUER6138-10-71 17:32:00 Test Item Value Reference Range Interpretation Comments Platelet (test code = Platelet) 300 133-450 [facility] HospitalDowtiapIKYQRCZXUO6149-77-83 17:32:00 Test Item Value Reference Range Interpretation Comments Hct (test code = Hct) 31.2 36.0-48.0 [facility] HospitalTxntwykBZIGJEJKZS7874-78-18 17:32:00 Test Item Value Reference Range Interpretation Comments Hgb (test code = Hgb) 10.5 12.0-16.0 [facility] HospitalLmzfreqYYWZXEEJIH0926-65-23 17:32:00 Test Item Value Reference Range Interpretation Comments MCV (test code = MCV) 84.5 80.0-98.0 [facility] HospitalMcsqkwpSDNWANMAVP1060-00-56 17:32:00 Test Item Value Reference Range Interpretation Comments MCHC (test code = MCHC) 33.6 32.0-36.0 [facility] HospitalCunpirqMDWFEWKZOU9307-19-09 17:32:00 Test Item Value Reference Range Interpretation Comments MCH (test code = MCH) 28.4 pg 27.0-31.0 [facility] HospitalCfwdpesMXTUDXBYHC1134-06-67 17:32:00 Test Item Value Reference Range Interpretation Comments RDW (test code = RDW) 13.5 11.5-14.5 [facility] HospitalNarvhodZDSYIVMVNU2384-33-74 17:32:00 Test Item Value Reference Range Interpretation Comments WBC (test code = WBC) 6.0 3.7-10.4 [facility] HospitalYzebyaaUEWIJIDAFX4282-16-06 17:32:00 Test Item Value Reference Range Interpretation Comments RBC (test code = RBC) 3.69 4.20-5.40 [facility] HospitalGglavrnKPFWSHSYOU3883-37-61 17:32:00 Test Item Value Reference Range Interpretation Comments Basophils # (test code 0.1 See_Comment [Aut omated message] The = Basophils #) system which generated this result tra nsmitted reference range : <=0.2. The reference r malinda was not used to int erpret this result as normal/abnormal . [facility] HospitalLwfgrchBJZJRPSLUN1095-13-30 17:32:00 Test Item Value Reference Range Interpretation Comments Lymphocytes (test code = Lymphocytes) 14.6 20.0-40.0 [facility] HospitalFlfbcqcWAVSPYBXQM0821-57-02 17:32:00 Test Item Value Reference Range Interpretation Comments Segs-Bands # (test code = Segs-Bands #) 4.5 1.5-8.1 [facility] HospitalHkahtewZJCBGUQNMG4328-45-30 17:32:00 Test Item Value Reference Range Interpretation Comments Monocytes (test code = Monocytes) 4.2 2.0-12.0 [facility] HospitalAssmlxjVRJVPUHOFZ4925-27-96 17:32:00 Test Item Value Reference Range Interpretation Comments Basophils (test code = 0.9 See_Comment [Aut omated message] The Basophils) system which ge nerated this result tra nsmitted reference range : <=1.0. The reference r malinda was not used to int erpret this result as normal/abnormal . [facility] HospitalZelabcbMRWLMDNURW1610-11-65 17:32:00 Test Item Value Reference Range Interpretation Comments Eosinophils # (test code 0.4 See_Comment [A utomated message] The = Eosinophils #) system whic h generated this result tra nsmitted reference range : <=0.5. The reference r malinda was not used to int erpret this result as normal/abnormal . [facility] HospitalLmmjmwmXSXKCTMDVG2830-97-43 17:32:00 Test Item Value Reference Range Interpretation Comments Monocytes # (test code 0.3 See_Comment [Aut omated message] The = Monocytes #) system which generated this result tra nsmitted reference range : <=0.8. The reference r malinda was not used to int erpret this result as normal/abnormal . [facility] HospitalJrixhmzNJPZGHGAKT1384-91-46 17:32:00 Test Item Value Reference Range Interpretation Comments Lymphocytes # (test code = Lymphocytes 0.9 1.0-5.5 #) [facility] HospitalGsitdkjMGWNHDIPIK4681-60-30 17:32:00 Test Item Value Reference Range Interpretation Comments Segs (test code = Segs) 74.1 45.0-75.0 [facility] HospitalBvcynefRHUHZCAUOU4924-20-17 17:32:00 Test Item Value Reference Range Interpretation Comments Eosinophils (test code = 6.2 See_Comment [A utomated message] The Eosinophils) system which ge nerated this result tra nsmitted reference range : <=4.0. The reference r malinda was not used to int erpret this result as normal/abnormal . [facility] HospitalHdhypjbKTDTEXEGSF0919-27-61 17:32:00 Test Item Value Reference Range Interpretation Comments MPV (test code = MPV) 6.7 7.4-10.4 [facility] HospitalGrmqhepPGMCQQOEBR3606-13-19 17:32:00 Test Item Value Reference Range Interpretation Comments Platelet (test code = Platelet) 300 133-450 [facility] HospitalFesguzjRKSKPRRRDJ5846-68-71 17:32:00 Test Item Value Reference Range Interpretation Comments Hct (test code = Hct) 31.2 36.0-48.0 [facility] HospitalPmnqctiJGFUZGGHFO6020-33-65 17:32:00 Test Item Value Reference Range Interpretation Comments Hgb (test code = Hgb) 10.5 12.0-16.0 [facility] HospitalXzodjnlIWOVINXMXR3544-18-56 17:32:00 Test Item Value Reference Range Interpretation Comments MCV (test code = MCV) 84.5 80.0-98.0 [facility] HospitalVsgbqmgKVHKUVKPOE6110-75-90 17:32:00 Test Item Value Reference Range Interpretation Comments MCHC (test code = MCHC) 33.6 32.0-36.0 [facility] HospitalRekdfauSVTBLEEPWD9378-17-59 17:32:00 Test Item Value Reference Range Interpretation Comments MCH (test code = MCH) 28.4 pg 27.0-31.0 [facility] HospitalGsgvvnuBXAQNXIRDF3275-75-16 17:32:00 Test Item Value Reference Range Interpretation Comments RDW (test code = RDW) 13.5 11.5-14.5 [facility] HospitalYipksuyZOEQUXFYKO2929-95-39 17:32:00 Test Item Value Reference Range Interpretation Comments WBC (test code = WBC) 6.0 3.7-10.4 [facility] HospitalTqawkpdUNWOMZWKEC5241-48-19 17:32:00 Test Item Value Reference Range Interpretation Comments RBC (test code = RBC) 3.69 4.20-5.40 [facility] HospitalKoybgtgXJYIRHNKLG7836-59-01 17:32:00 Test Item Value Reference Range Interpretation Comments Basophils # (test code 0.1 See_Comment [Aut omated message] The = Basophils #) system which generated this result tra nsmitted reference range : <=0.2. The reference r malinda was not used to int erpret this result as normal/abnormal . [facility] HospitalSlllyyfNDZRFXVIKK7200-46-31 17:32:00 Test Item Value Reference Range Interpretation Comments Lymphocytes (test code = Lymphocytes) 14.6 20.0-40.0 [facility] HospitalMakxneyDHWBITTJOI6654-67-82 17:32:00 Test Item Value Reference Range Interpretation Comments Segs-Bands # (test code = Segs-Bands #) 4.5 1.5-8.1 [facility] HospitalPznamwcTSOXJFCNXN0580-05-21 17:32:00 Test Item Value Reference Range Interpretation Comments Monocytes (test code = Monocytes) 4.2 2.0-12.0 [facility] HospitalGmmwcjcCLVLLJHSOA3349-26-81 17:32:00 Test Item Value Reference Range Interpretation Comments Basophils (test code = 0.9 See_Comment [Aut omated message] The Basophils) system which ge nerated this result tra nsmitted reference range : <=1.0. The reference r malinda was not used to int erpret this result as normal/abnormal . [facility] HospitalNpeqssfCQOFJPDNGZ7758-77-32 17:32:00 Test Item Value Reference Range Interpretation Comments Eosinophils # (test code 0.4 See_Comment [A utomated message] The = Eosinophils #) system whic h generated this result tra nsmitted reference range : <=0.5. The reference r malinda was not used to int erpret this result as normal/abnormal . [facility] HospitalKgekldtVODSUFFJYA1485-07-77 17:32:00 Test Item Value Reference Range Interpretation Comments Monocytes # (test code 0.3 See_Comment [Aut omated message] The = Monocytes #) system which generated this result tra nsmitted reference range : <=0.8. The reference r malinda was not used to int erpret this result as normal/abnormal . [facility] HospitalBdulurbROITVEWZQT4211-53-32 17:32:00 Test Item Value Reference Range Interpretation Comments Lymphocytes # (test code = Lymphocytes 0.9 1.0-5.5 #) [facility] HospitalNqarhdcYZQXZTZLVQ6443-30-49 17:32:00 Test Item Value Reference Range Interpretation Comments Segs (test code = Segs) 74.1 45.0-75.0 [facility] HospitalFtqwmdkZAZLRHVRDA0012-68-35 17:32:00 Test Item Value Reference Range Interpretation Comments Eosinophils (test code = 6.2 See_Comment [A utomated message] The Eosinophils) system which ge nerated this result tra nsmitted reference range : <=4.0. The reference r malinda was not used to int erpret this result as normal/abnormal . [facility] HospitalNaetqcrECESBPIUUQ7905-59-30 17:32:00 Test Item Value Reference Range Interpretation Comments MPV (test code = MPV) 6.7 7.4-10.4 [facility] HospitalSghnctpJMRFPQCFQQ8668-24-32 17:32:00 Test Item Value Reference Range Interpretation Comments Platelet (test code = Platelet) 300 133-450 [facility] HospitalZuwxsmcJZROPRGDYY1479-64-71 17:32:00 Test Item Value Reference Range Interpretation Comments Hct (test code = Hct) 31.2 36.0-48.0 [facility] HospitalXhctkoeOTCWVFBRLD1037-29-34 17:32:00 Test Item Value Reference Range Interpretation Comments Hgb (test code = Hgb) 10.5 12.0-16.0 [facility] HospitalFsargazMXVPUNXIXX9368-38-85 17:32:00 Test Item Value Reference Range Interpretation Comments MCV (test code = MCV) 84.5 80.0-98.0 [facility] HospitalCtsdoymJVKMLSUDAH3535-40-93 17:32:00 Test Item Value Reference Range Interpretation Comments MCHC (test code = MCHC) 33.6 32.0-36.0 [facility] HospitalRqjocruESGRYRXJMB6451-16-62 17:32:00 Test Item Value Reference Range Interpretation Comments MCH (test code = MCH) 28.4 pg 27.0-31.0 [facility] HospitalMbmnjggBLMINVRQLT6043-54-59 17:32:00 Test Item Value Reference Range Interpretation Comments RDW (test code = RDW) 13.5 11.5-14.5 [facility] HospitalGtzhrphEKUDZKHASQ7777-43-79 17:32:00 Test Item Value Reference Range Interpretation Comments WBC (test code = WBC) 6.0 3.7-10.4 [facility] HospitalGbvkavgOPCTYFERZV6492-09-77 17:32:00 Test Item Value Reference Range Interpretation Comments RBC (test code = RBC) 3.69 4.20-5.40 [facility]iCr[facility] [id number] 11:02:00 Test Item Value Reference Range Interpretation Comments Antibody Scrn (test Negative (04/01/16 6:02 code = Antibody Scrn) AM) [email or web address] [id number] 11:02:00 Test Item Value Reference Range Interpretation Comments ABO/Rh (test code = ABO/Rh) A POS [email or web address] [id number] 11:02:00 Test Item Value Reference Range Interpretation Comments Antibody Scrn (test Negative (04/01/16 6:02 code = Antibody Scrn) AM) [email or web address] [id number] 11:02:00 Test Item Value Reference Range Interpretation Comments ABO/Rh (test code = ABO/Rh) [email or web address] [id number] 11:02:00 Test Item Value Reference Range Interpretation Comments Antibody Scrn (test Negative (04/01/16 6:02 code = Antibody Scrn) AM) [email or web address] [id number] 11:02:00 Test Item Value Reference Range Interpretation Comments ABO/Rh (test code = ABO/Rh) [email or web address] [id number] 11:02:00 Test Item Value Reference Range Interpretation Comments Antibody Scrn (test Negative (04/01/16 6:02 code = Antibody Scrn) AM) [employer] [id number] 11:02:00 Test Item Value Reference Range Interpretation Comments ABO/Rh (test code = ABO/Rh) A POS [facility] [employer] [id number] 11:02:00 Test Item Value Reference Range Interpretation Comments Antibody Scrn (test Negative (04/01/16 6:02 code = Antibody Scrn) AM) [employer] [id number] 11:02:00 Test Item Value Reference Range Interpretation Comments ABO/Rh (test code = ABO/Rh) A POS [employer] [id number] 21:25:00 Test Item Value Reference Range Interpretation Comments Albumin Lvl (test code = Albumin Lvl) 3.5 3.5-5.0 [employer] [id number] 21:25:00 Test Item Value Reference Range Interpretation Comments ALT (test code = ALT) 28 See_Comment [Auto mated message] The system which ge nerated this result transmit james reference range : <=65. The reference range was not used to interpr et this result as mary l/abnormal. [employer]2016-09-26 21:25:00 Test Item Value Reference Range Interpretation Comments AST (test code = AST) 22 See_Comment [Auto mated message] The system which ge nerated this result transmit james reference range : <=37. The reference range was not used to interpr et this result as mary l/abnormal. [employer]2016-09-26 21:25:00 Test Item Value Reference Range Interpretation Comments Total Protein (test code = Total 6.2 6.4-8.4 Protein) [employer]2016-09-26 21:25:00 Test Item Value Reference Range Interpretation Comments Alk Phos (test code = Alk Phos) 37 39-136 [facility] [employer]2016-09-26 21:25:00 Test Item Value Reference Range Interpretation Comments Bili Total (test code = Bili Total) 0.5 0.2-1.3 [employer]2016-09-26 21:25:00 Test Item Value Reference Range Interpretation Comments Globulin (test code = Globulin) 2.7 2.7-4.2 [facility]2016-09-26 21:25:00 Test Item Value Reference Range Interpretation Comments A/G Ratio (test code = A/G Ratio) 1.3 0.7-1.6 [facility]2016-09-26 21:25:00 Test Item Value Reference Range Interpretation Comments B/C Ratio (test code = B/C Ratio) 30 6-25 [facility] HospitalRqnaxvyXWVVZGWOKF6937-60-89 21:25:00 Test Item Value Reference Range Interpretation Comments Segs-Bands # (test code = Segs-Bands #) 4.3 1.5-8.1 [facility] HospitalXzmrleeZGULQPRVTZ0512-31-59 21:25:00 Test Item Value Reference Range Interpretation Comments Monocytes # (test code 0.7 See_Comment [Aut omated message] The = Monocytes #) system which generated this result tra nsmitted reference range : <=0.8. The reference r malinda was not used to int erpret this result as normal/abnormal . [facility] HospitalWhfkdfvUMWSDLYIRO5539-45-76 21:25:00 Test Item Value Reference Range Interpretation Comments Lymphocytes # (test code = Lymphocytes 1.3 1.0-5.5 #) [facility] HospitalHuzycpeAGNEYTVEMA8059-96-31 21:25:00 Test Item Value Reference Range Interpretation Comments Basophils # (test code 0.1 See_Comment [Aut omated message] The = Basophils #) system which generated this result tra nsmitted reference range : <=0.2. The reference r malinda was not used to int erpret this result as normal/abnormal . [facility] HospitalWznioloKAZIZVLPBG2583-39-65 21:25:00 Test Item Value Reference Range Interpretation Comments Eosinophils # (test code 1.1 See_Comment [A utomated message] The = Eosinophils #) system whic h generated this result tra nsmitted reference range : <=0.5. The reference r malinda was not used to int erpret this result as normal/abnormal . [facility] HospitalRhwddopSJUZYDVTZI7665-79-65 21:25:00 Test Item Value Reference Range Interpretation Comments Segs (test code = Segs) 57.3 45.0-75.0 [facility] HospitalEydbeuoGCPLBPZEMZ9862-79-01 21:25:00 Test Item Value Reference Range Interpretation Comments Lymphocytes (test code = Lymphocytes) 16.9 20.0-40.0 [facility] HospitalCoozzonOTCEHFOWFM3986-00-07 21:25:00 Test Item Value Reference Range Interpretation Comments Eosinophils (test code = 14.8 See_Comment [A utomated message] The Eosinophils) system which ge nerated this result tra nsmitted reference range : <=4.0. The reference r malinda was not used to int erpret this result as normal/abnormal . [facility] HospitalGhmaaesCQYOYGSKUP9797-48-57 21:25:00 Test Item Value Reference Range Interpretation Comments Basophils (test code = 1.4 See_Comment [Aut omated message] The Basophils) system which ge nerated this result tra nsmitted reference range : <=1.0. The reference r malinda was not used to int erpret this result as normal/abnormal . [facility] HospitalYtqbhjbNRMWKUQQGN2907-70-83 21:25:00 Test Item Value Reference Range Interpretation Comments Monocytes (test code = Monocytes) 9.6 2.0-12.0 [facility] HospitalDpqwtmaTGQIMWHAWY3146-69-16 21:25:00 Test Item Value Reference Range Interpretation Comments Ly30 (test code = 8.9 See_Comment [Automate d message] The Ly30) system which ge nerated this result transmit james reference range : <=7.5. The reference range was not used to interpr et this result as amry l/abnormal. [facility] HospitalXdgxqhmWSDYFYYBSS0640-82-63 21:25:00 Test Item Value Reference Range Interpretation Comments G-value (test code = G-value) 13.2 4.5-11.0 [facility] HospitalWmsbdugQWNVIWVSNU6816-77-16 21:25:00 Test Item Value Reference Range Interpretation Comments TEG Data (test code = See Note (03/28/16 4:25 TEG Data) PM) [facility] HospitalFloojcfPHHKXFHBRP5517-96-14 21:25:00 Test Item Value Reference Range Interpretation Comments Coag Index (test code 4.2 See_Comment [Auto mated message] The = Coag Index) system which g enerated this result transmit james reference range : <=3.0. The reference range was not used to interpr et this result as mary l/abnormal. [facility] HospitalYjrdeyaTUDOGUYTFC8402-86-18 21:25:00 Test Item Value Reference Range Interpretation Comments Angle (test code = Angle) 76.9 degrees 53.0-72.0 [facility] HospitalNelsfexCTUMHSBVSR7358-71-89 21:25:00 Test Item Value Reference Range Interpretation Comments R-time (test code = R-time) 3.7 min 5.0-10.0 [facility] HospitalEzfxfebEIAIYHREMQ1183-74-83 21:25:00 Test Item Value Reference Range Interpretation Comments Max Amp (test code = Max Amp) 72.5 mm 50.0-70.0 [facility] HospitalLjebbqsKDMINLCWBO8627-24-58 21:25:00 Test Item Value Reference Range Interpretation Comments K-time (test code = K-time) 0.8 min 1.0-3.0 [facility] HospitalQrlayamKOOPJXRFPQ1161-18-04 21:25:00 Test Item Value Reference Range Interpretation [...] DIC with DIC panel may be indicated. CPT:13367 [facility] HospitalUjdzbyrAJTJEBWONN1313-55-24 21:25:00 Test Item Value Reference Range Interpretation Comments Hgb (test code = Hgb) 11.8 12.0-16.0 [facility] HospitalFjdbhyiNKOSSLNSXJ6305-33-92 21:25:00 Test Item Value Reference Range Interpretation Comments Hct (test code = Hct) 35.6 36.0-48.0 [facility] HospitalJkueyuiNOTTZHGQNQ6143-24-15 21:25:00 Test Item Value Reference Range Interpretation Comments MCHC (test code = MCHC) 33.3 32.0-36.0 [facility] HospitalKnurgasLJJPJWBJHV2060-32-85 21:25:00 Test Item Value Reference Range Interpretation Comments MPV (test code = MPV) 7.6 7.4-10.4 [facility] HospitalXblccsrOPLEQXVPHR4707-69-43 21:25:00 Test Item Value Reference Range Interpretation Comments RDW (test code = RDW) 13.7 11.5-14.5 [facility] HospitalFotsvtaYLXTGFFCTI2181-95-13 21:25:00 Test Item Value Reference Range Interpretation Comments Platelet (test code = Platelet) 298 133-450 [facility] HospitalOttyslkHQKVWIGSGX7816-43-32 21:25:00 Test Item Value Reference Range Interpretation Comments MCV (test code = MCV) 85.0 80.0-98.0 [facility]YpswptiVHOKXCAVEQ8570-97-34 21:25:00 Test Item Value Reference Range Interpretation Comments MCH (test code = MCH) 28.3 pg 27.0-31.0 [facility] HospitalZkjzyqsVYAWOUOBWN2727-20-23 21:25:00 Test Item Value Reference Range Interpretation Comments WBC (test code = WBC) 7.5 3.7-10.4 [facility] HospitalKezdwzlDAAEWZGWZP7580-03-36 21:25:00 Test Item Value Reference Range Interpretation Comments RBC (test code = RBC) 4.18 4.20-5.40 [facility] BOIUPCFGQ4298-66-26 21:25:00 Test Item Value Reference Range Interpretation Comments Hgb A1C (test code = Hgb A1C) 5.2 [facility]Archive[facility] LCAAB7024-67-39 21:25:00 Test Item Value Reference Range Interpretation Comments Albumin Lvl (test code = Albumin Lvl) 3.5 3.5-5.0 [facility] KEELF9474-88-55 21:25:00 Test Item Value Reference Range Interpretation Comments ALT (test code = ALT) 28 See_Comment [Auto mated message] The system which ge nerated this result transmit james reference range : <=65. The reference range was not used to interpr et this result as mary l/abnormal. [facility]Archive[facility] YFSUM0934-93-18 21:25:00 Test Item Value Reference Range Interpretation Comments AST (test code = AST) 22 See_Comment [Auto mated message] The system which ge nerated this result transmit james reference range : <=37. The reference range was not used to interpr et this result as mary l/abnormal. [facility]Archive[facility] [id number] 21:25:00 Test Item Value Reference Range Interpretation Comments Total Protein (test code = Total 6.2 6.4-8.4 Protein) [facility]2016-09-26 21:25:00 Test Item Value Reference Range Interpretation Comments Alk Phos (test code = Alk Phos) 37 39-136 [facility]Archive[facility] XHSHM6381-71-46 21:25:00 Test Item Value Reference Range Interpretation Comments Bili Total (test code = Bili Total) 0.5 0.2-1.3 [facility]2016-09-26 21:25:00 Test Item Value Reference Range Interpretation Comments Globulin (test code = Globulin) 2.7 2.7-4.2 [facility]2016-09-26 21:25:00 Test Item Value Reference Range Interpretation Comments A/G Ratio (test code = A/G Ratio) 1.3 0.7-1.6 [facility]2016-09-26 21:25:00 Test Item Value Reference Range Interpretation Comments B/C Ratio (test code = B/C Ratio) 30 6-25 [facility] HospitalMeizahuESFLTRMJER4547-40-41 21:25:00 Test Item Value Reference Range Interpretation Comments Segs-Bands # (test code = Segs-Bands #) 4.3 1.5-8.1 [facility] HospitalJugnvufXRSPCIWOQV7730-78-94 21:25:00 Test Item Value Reference Range Interpretation Comments Monocytes # (test code 0.7 See_Comment [Aut omated message] The = Monocytes #) system which generated this result tra nsmitted reference range : <=0.8. The reference r malinda was not used to int erpret this result as normal/abnormal . [facility] HospitalUdvahcxEEIGMGWMYH9157-42-15 21:25:00 Test Item Value Reference Range Interpretation Comments Lymphocytes # (test code = Lymphocytes 1.3 1.0-5.5 #) [facility] HospitalCrwjkciRDICRUGFQN7374-22-83 21:25:00 Test Item Value Reference Range Interpretation Comments Basophils # (test code 0.1 See_Comment [Aut omated message] The = Basophils #) system which generated this result tra nsmitted reference range : <=0.2. The reference r malinda was not used to int erpret this result as normal/abnormal . [facility] HospitalEzzrcagCQOWBOVJLG1142-22-89 21:25:00 Test Item Value Reference Range Interpretation Comments Eosinophils # (test code 1.1 See_Comment [A utomated message] The = Eosinophils #) system whic h generated this result tra nsmitted reference range : <=0.5. The reference r malinda was not used to int erpret this result as normal/abnormal . [facility] HospitalTquoavbQYEDJYQLCH3639-22-53 21:25:00 Test Item Value Reference Range Interpretation Comments Segs (test code = Segs) 57.3 45.0-75.0 [facility] HospitalIwdlodvIXMXXUYIFY3578-51-92 21:25:00 Test Item Value Reference Range Interpretation Comments Lymphocytes (test code = Lymphocytes) 16.9 20.0-40.0 [facility] HospitalKqmnvrzZBHMSHQXDV1387-32-96 21:25:00 Test Item Value Reference Range Interpretation Comments Eosinophils (test code = 14.8 See_Comment [A utomated message] The Eosinophils) system which ge nerated this result tra nsmitted reference range : <=4.0. The reference r malinda was not used to int erpret this result as normal/abnormal . [facility] HospitalXwraynfTKJBFGKDAJ7506-66-51 21:25:00 Test Item Value Reference Range Interpretation Comments Basophils (test code = 1.4 See_Comment [Aut omated message] The Basophils) system which ge nerated this result tra nsmitted reference range : <=1.0. The reference r malinda was not used to int erpret this result as normal/abnormal . [facility] HospitalPwsysvrJKYZBOAQJY3748-08-43 21:25:00 Test Item Value Reference Range Interpretation Comments Monocytes (test code = Monocytes) 9.6 2.0-12.0 [facility] HospitalWfzzikgMTQJRSIDDQ2972-32-39 21:25:00 Test Item Value Reference Range Interpretation Comments Ly30 (test code = 8.9 See_Comment [Automate d message] The Ly30) system which ge nerated this result transmit james reference range : <=7.5. The reference range was not used to interpr et this result as mary l/abnormal. [facility] HospitalOfpwcjdAQOMVQBIJF0719-75-34 21:25:00 Test Item Value Reference Range Interpretation Comments G-value (test code = G-value) 13.2 4.5-11.0 [facility] HospitalGldzvbkETBBSRGKWT6573-83-52 21:25:00 Test Item Value Reference Range Interpretation Comments TEG Data (test code = See Note (03/28/16 4:25 TEG Data) PM) [facility] HospitalPjotdgkPHPBCDSWTS8114-80-55 21:25:00 Test Item Value Reference Range Interpretation Comments Coag Index (test code 4.2 See_Comment [Auto mated message] The = Coag Index) system which g enerated this result transmit james reference range : <=3.0. The reference range was not used to interpr et this result as mary l/abnormal. [facility] HospitalDvqqsgnOODURQUUPF3898-61-65 21:25:00 Test Item Value Reference Range Interpretation Comments Angle (test code = Angle) 76.9 degrees 53.0-72.0 [facility] HospitalLmxditiMSPPUJPKIQ4749-11-29 21:25:00 Test Item Value Reference Range Interpretation Comments R-time (test code = R-time) 3.7 min 5.0-10.0 [facility] HospitalMbdqzcxGHTNQBYBCC8921-67-32 21:25:00 Test Item Value Reference Range Interpretation Comments Max Amp (test code = Max Amp) 72.5 mm 50.0-70.0 [facility] HospitalRzbjhikKXDOXEKJIF6834-83-80 21:25:00 Test Item Value Reference Range Interpretation Comments K-time (test code = K-time) 0.8 min 1.0-3.0 [facility] HospitalSzoksnoNXVKVQKNEG0904-48-18 21:25:00 Test Item Value Reference Range Interpretation [...] DIC with DIC panel may be indicated. CPT:80734 [facility] HospitalFicbcebGHREAQZEHV9730-90-61 21:25:00 Test Item Value Reference Range Interpretation Comments Hgb (test code = Hgb) 11.8 12.0-16.0 [facility] HospitalLywjufjVBZDMHBCRE0279-32-63 21:25:00 Test Item Value Reference Range Interpretation Comments Hct (test code = Hct) 35.6 36.0-48.0 [facility] HospitalMhfpxwyVJYWHUOCTK3578-96-60 21:25:00 Test Item Value Reference Range Interpretation Comments MCHC (test code = MCHC) 33.3 32.0-36.0 [facility] HospitalRwybifyCNWIHXWVTZ5380-10-39 21:25:00 Test Item Value Reference Range Interpretation Comments MPV (test code = MPV) 7.6 7.4-10.4 [facility] HospitalWftufsaOZAGSNNORB2150-06-51 21:25:00 Test Item Value Reference Range Interpretation Comments RDW (test code = RDW) 13.7 11.5-14.5 [facility] HospitalIyitbfrOOTEAEUAXF6036-04-54 21:25:00 Test Item Value Reference Range Interpretation Comments Platelet (test code = Platelet) 298 133-450 [facility] HospitalEweahceRXEUXUHNWP0142-49-87 21:25:00 Test Item Value Reference Range Interpretation Comments MCV (test code = MCV) 85.0 80.0-98.0 [facility] HospitalLqtqmppKQVFDHWHVR3283-60-70 21:25:00 Test Item Value Reference Range Interpretation Comments MCH (test code = MCH) 28.3 pg 27.0-31.0 [facility] HospitalZvmzcihVJOVFJLLUR7110-19-21 21:25:00 Test Item Value Reference Range Interpretation Comments WBC (test code = WBC) 7.5 3.7-10.4 [facility] HospitalZbvupbmMHLJTPOENW2609-83-80 21:25:00 Test Item Value Reference Range Interpretation Comments RBC (test code = RBC) 4.18 4.20-5.40 [facility] BJAOZKNBO9153-50-26 21:25:00 Test Item Value Reference Range Interpretation Comments Hgb A1C (test code = Hgb A1C) 5.2 [facility] YGUUQ6552-84-30 21:25:00 Test Item Value Reference Range Interpretation Comments Albumin Lvl (test code = Albumin Lvl) 3.5 3.5-5.0 [facility] [id number] 21:25:00 Test Item Value Reference Range Interpretation Comments ALT (test code = ALT) 28 See_Comment [Auto mated message] The system which ge nerated this result transmit james reference range : <=65. The reference range was not used to interpr et this result as mary l/abnormal. [facility]Archive[facility] NZVRC6027-19-16 21:25:00 Test Item Value Reference Range Interpretation Comments AST (test code = AST) 22 See_Comment [Auto mated message] The system which ge nerated this result transmit james reference range : <=37. The reference range was not used to interpr et this result as mary l/abnormal. [facility] [id number] 21:25:00 Test Item Value Reference Range Interpretation Comments Total Protein (test code = Total 6.2 6.4-8.4 Protein) [facility]2016-09-26 21:25:00 Test Item Value Reference Range Interpretation Comments Alk Phos (test code = Alk Phos) 37 39-136 [facility]2016-09-26 21:25:00 Test Item Value Reference Range Interpretation Comments Bili Total (test code = Bili Total) 0.5 0.2-1.3 [place] 151526-09-26 21:25:00 Test Item Value Reference Range Interpretation Comments Globulin (test code = Globulin) 2.7 2.7-4.2 [place] 151526-09-26 21:25:00 Test Item Value Reference Range Interpretation Comments A/G Ratio (test code = A/G Ratio) 1.3 0.7-1.6 [facility]2016-09-26 21:25:00 Test Item Value Reference Range Interpretation Comments B/C Ratio (test code = B/C Ratio) 30 6-25 [facility] HospitalJiipkapCUQMSSAVSU5819-69-96 21:25:00 Test Item Value Reference Range Interpretation Comments Segs-Bands # (test code = Segs-Bands #) 4.3 1.5-8.1 [facility] HospitalBnvztptSLDQJHGUVY5011-08-04 21:25:00 Test Item Value Reference Range Interpretation Comments Monocytes # (test code 0.7 See_Comment [Aut omated message] The = Monocytes #) system which generated this result tra nsmitted reference range : <=0.8. The reference r malinda was not used to int erpret this result as normal/abnormal . [facility] HospitalDeohddsZKIPKZZKGX2967-18-61 21:25:00 Test Item Value Reference Range Interpretation Comments Lymphocytes # (test code = Lymphocytes 1.3 1.0-5.5 #) [facility] HospitalWcgynkkAWBFTYIJCM4775-04-49 21:25:00 Test Item Value Reference Range Interpretation Comments Basophils # (test code 0.1 See_Comment [Aut omated message] The = Basophils #) system which generated this result tra nsmitted reference range : <=0.2. The reference r malinda was not used to int erpret this result as normal/abnormal . [facility] HospitalVsvkeydKHHDESGYVB4458-77-99 21:25:00 Test Item Value Reference Range Interpretation Comments Eosinophils # (test code 1.1 See_Comment [A utomated message] The = Eosinophils #) system whic h generated this result tra nsmitted reference range : <=0.5. The reference r malinda was not used to int erpret this result as normal/abnormal . [facility] HospitalJsxgxasLXMRASGDGS3471-20-70 21:25:00 Test Item Value Reference Range Interpretation Comments Segs (test code = Segs) 57.3 45.0-75.0 [facility] HospitalRtfdfoqFTWWVTWXIE9707-38-38 21:25:00 Test Item Value Reference Range Interpretation Comments Lymphocytes (test code = Lymphocytes) 16.9 20.0-40.0 [facility] HospitalWkralcvFFAVEFCWVM8963-02-82 21:25:00 Test Item Value Reference Range Interpretation Comments Eosinophils (test code = 14.8 See_Comment [A utomated message] The Eosinophils) system which ge nerated this result tra nsmitted reference range : <=4.0. The reference r malinda was not used to int erpret this result as normal/abnormal . [facility] HospitalHgsaoaaCVCINNIINJ5979-10-14 21:25:00 Test Item Value Reference Range Interpretation Comments Basophils (test code = 1.4 See_Comment [Aut omated message] The Basophils) system which ge nerated this result tra nsmitted reference range : <=1.0. The reference r malinda was not used to int erpret this result as normal/abnormal . [facility] HospitalMkhdeuaUPTWVBJQEI3204-46-10 21:25:00 Test Item Value Reference Range Interpretation Comments Monocytes (test code = Monocytes) 9.6 2.0-12.0 [facility] HospitalQvbksgkRRJXUSYCIQ1848-47-03 21:25:00 Test Item Value Reference Range Interpretation Comments Ly30 (test code = 8.9 See_Comment [Automate d message] The Ly30) system which ge nerated this result transmit james reference range : <=7.5. The reference range was not used to interpr et this result as mary l/abnormal. [facility] HospitalVeqmynhOZSXEREJWG2215-46-50 21:25:00 Test Item Value Reference Range Interpretation Comments G-value (test code = G-value) 13.2 4.5-11.0 [facility] HospitalRteldhePLEYRXXAQA4932-27-63 21:25:00 Test Item Value Reference Range Interpretation Comments TEG Data (test code = See Note (03/28/16 4:25 TEG Data) PM) [facility] HospitalHjjakqrALWUUVNENK7492-29-25 21:25:00 Test Item Value Reference Range Interpretation Comments Coag Index (test code 4.2 See_Comment [Auto mated message] The = Coag Index) system which g enerated this result transmit james reference range : <=3.0. The reference range was not used to interpr et this result as mary l/abnormal. [facility] HospitalXwnskjaTAVGBLNRIT9120-74-18 21:25:00 Test Item Value Reference Range Interpretation Comments Angle (test code = Angle) 76.9 degrees 53.0-72.0 [facility] HospitalYqyfsinLCBAGQMYQD9423-55-29 21:25:00 Test Item Value Reference Range Interpretation Comments R-time (test code = R-time) 3.7 min 5.0-10.0 [facility] HospitalBgfshhnPKZBHBUCCX6081-17-30 21:25:00 Test Item Value Reference Range Interpretation Comments Max Amp (test code = Max Amp) 72.5 mm 50.0-70.0 [facility] HospitalIdbvlfkDSZPMELRHF1856-26-45 21:25:00 Test Item Value Reference Range Interpretation Comments K-time (test code = K-time) 0.8 min 1.0-3.0 [facility] HospitalJidatrxMURBRTSJOR5267-67-69 21:25:00 Test Item Value Reference Range Interpretation [...] DIC with DIC panel may be indicated. CPT:13365 [facility] HospitalYhizjloYUFXHPLJUF5317-91-63 21:25:00 Test Item Value Reference Range Interpretation Comments Hgb (test code = Hgb) 11.8 12.0-16.0 [facility] HospitalXwfxooqCHMVFNRNTB4776-21-07 21:25:00 Test Item Value Reference Range Interpretation Comments Hct (test code = Hct) 35.6 36.0-48.0 [facility] HospitalAbqjvaeYAIQLVUIFL2854-44-61 21:25:00 Test Item Value Reference Range Interpretation Comments MCHC (test code = MCHC) 33.3 32.0-36.0 [facility]LxskgqqHOFLWQCSAY4624-23-65 21:25:00 Test Item Value Reference Range Interpretation Comments MPV (test code = MPV) 7.6 7.4-10.4 [facility] HospitalTkxynnlYUKZQMMNBY3822-72-85 21:25:00 Test Item Value Reference Range Interpretation Comments RDW (test code = RDW) 13.7 11.5-14.5 [facility] HospitalBcxlfqyADNHICXHSG7312-85-64 21:25:00 Test Item Value Reference Range Interpretation Comments Platelet (test code = Platelet) 298 133-450 [facility] HospitalUzuwxslHDSPVGZOLS6176-30-42 21:25:00 Test Item Value Reference Range Interpretation Comments MCV (test code = MCV) 85.0 80.0-98.0 [facility] HospitalIcvugksPZSEIUCIED6035-90-58 21:25:00 Test Item Value Reference Range Interpretation Comments MCH (test code = MCH) 28.3 pg 27.0-31.0 [facility] HospitalFfhmxoaTEGTCFHGRY9755-58-27 21:25:00 Test Item Value Reference Range Interpretation Comments WBC (test code = WBC) 7.5 3.7-10.4 [facility] HospitalXjzuixqFLQGYAZZKV1892-02-53 21:25:00 Test Item Value Reference Range Interpretation Comments RBC (test code = RBC) 4.18 4.20-5.40 [facility] NXAIVOSFO0795-84-24 21:25:00 Test Item Value Reference Range Interpretation Comments Hgb A1C (test code = Hgb A1C) 5.2 [facility] QWYYW2336-53-62 21:25:00 Test Item Value Reference Range Interpretation Comments Albumin Lvl (test code = Albumin Lvl) 3.5 3.5-5.0 [facility] [id number] 21:25:00 Test Item Value Reference Range Interpretation Comments ALT (test code = ALT) 28 See_Comment [Auto mated message] The system which ge nerated this result transmit james reference range : <=65. The reference range was not used to interpr et this result as mary l/abnormal. [facility] [id number] 21:25:00 Test Item Value Reference Range Interpretation Comments AST (test code = AST) 22 See_Comment [Auto mated message] The system which ge nerated this result transmit james reference range : <=37. The reference range was not used to interpr et this result as mary l/abnormal. [facility]2016-09-26 21:25:00 Test Item Value Reference Range Interpretation Comments Total Protein (test code = Total 6.2 6.4-8.4 Protein) [facility]2016-09-26 21:25:00 Test Item Value Reference Range Interpretation Comments Alk Phos (test code = Alk Phos) 37 39-136 [facility]2016-09-26 21:25:00 Test Item Value Reference Range Interpretation Comments Bili Total (test code = Bili Total) 0.5 0.2-1.3 [facility]2016-09-26 21:25:00 Test Item Value Reference Range Interpretation Comments Globulin (test code = Globulin) 2.7 2.7-4.2 [facility]2016-09-26 21:25:00 Test Item Value Reference Range Interpretation Comments A/G Ratio (test code = A/G Ratio) 1.3 0.7-1.6 [facility]2016-09-26 21:25:00 Test Item Value Reference Range Interpretation Comments B/C Ratio (test code = B/C Ratio) 30 6-25 [facility] Hospit[id number] 21:25:00 Test Item Value Reference Range Interpretation Comments Segs-Bands # (test code = Segs-Bands #) 4.3 1.5-8.1 [facility] HospitalGwuxirnJODLCDZZFL7669-90-23 21:25:00 Test Item Value Reference Range Interpretation Comments Monocytes # (test code 0.7 See_Comment [Aut omated message] The = Monocytes #) system which generated this result tra nsmitted reference range : <=0.8. The reference r malinda was not used to int erpret this result as normal/abnormal . [facility] Hospit[id number] 21:25:00 Test Item Value Reference Range Interpretation Comments Lymphocytes # (test code = Lymphocytes 1.3 1.0-5.5 #) [facility] HospitalDlhzaooUHGKATHLZY4682-34-51 21:25:00 Test Item Value Reference Range Interpretation Comments Basophils # (test code 0.1 See_Comment [Aut omated message] The = Basophils #) system which generated this result tra nsmitted reference range : <=0.2. The reference r malinda was not used to int erpret this result as normal/abnormal . [facility] HospitalYvvgjipFELMNPHNCV4044-06-71 21:25:00 Test Item Value Reference Range Interpretation Comments Eosinophils # (test code 1.1 See_Comment [A utomated message] The = Eosinophils #) system whic h generated this result tra nsmitted reference range : <=0.5. The reference r malinda was not used to int erpret this result as normal/abnormal . [facility] HospitalEdthsglQUJHOINICE5196-09-07 21:25:00 Test Item Value Reference Range Interpretation Comments Segs (test code = Segs) 57.3 45.0-75.0 [facility] HospitalLosfaogFMEOLQEOAK3059-53-27 21:25:00 Test Item Value Reference Range Interpretation Comments Lymphocytes (test code = Lymphocytes) 16.9 20.0-40.0 [facility] HospitalHtvwltuULEBNAGQSY8947-90-05 21:25:00 Test Item Value Reference Range Interpretation Comments Eosinophils (test code = 14.8 See_Comment [A utomated message] The Eosinophils) system which ge nerated this result tra nsmitted reference range : <=4.0. The reference r malinda was not used to int erpret this result as normal/abnormal . [facility] HospitalMiooanuVGAEUIUQJW0360-94-16 21:25:00 Test Item Value Reference Range Interpretation Comments Basophils (test code = 1.4 See_Comment [Aut omated message] The Basophils) system which ge nerated this result tra nsmitted reference range : <=1.0. The reference r malinda was not used to int erpret this result as normal/abnormal . [facility] HospitalNziedarBTBWYTJPOS2615-76-43 21:25:00 Test Item Value Reference Range Interpretation Comments Monocytes (test code = Monocytes) 9.6 2.0-12.0 [facility] HospitalTkcuhevJJCMNHZUIN0495-23-96 21:25:00 Test Item Value Reference Range Interpretation Comments Ly30 (test code = 8.9 See_Comment [Automate d message] The Ly30) system which ge nerated this result transmit james reference range : <=7.5. The reference range was not used to interpr et this result as mary l/abnormal. [facility] HospitalYszutjbPOTRSDWVCH4667-88-86 21:25:00 Test Item Value Reference Range Interpretation Comments G-value (test code = G-value) 13.2 4.5-11.0 [facility] HospitalRavnqqmSIGZDOWOZW3378-13-77 21:25:00 Test Item Value Reference Range Interpretation Comments TEG Data (test code = See Note (03/28/16 4:25 TEG Data) PM) [facility] HospitalHskfxduXOBMZBQRYS4111-61-39 21:25:00 Test Item Value Reference Range Interpretation Comments Coag Index (test code 4.2 See_Comment [Auto mated message] The = Coag Index) system which g enerated this result transmit james reference range : <=3.0. The reference range was not used to interpr et this result as mary l/abnormal. [facility] HospitalRvluoosEPIHCHVILI5971-06-64 21:25:00 Test Item Value Reference Range Interpretation Comments Angle (test code = Angle) 76.9 degrees 53.0-72.0 [facility] HospitalEawjiheUAYFJJJNQU2549-45-16 21:25:00 Test Item Value Reference Range Interpretation Comments R-time (test code = R-time) 3.7 min 5.0-10.0 [facility] HospitalKuzqqqzSXCKRGPYPL0052-90-50 21:25:00 Test Item Value Reference Range Interpretation Comments Max Amp (test code = Max Amp) 72.5 mm 50.0-70.0 [facility] HospitalJkftchvKOVKPMUCIN2123-67-38 21:25:00 Test Item Value Reference Range Interpretation Comments K-time (test code = K-time) 0.8 min 1.0-3.0 [facility] HospitalJzsbuywAAWGCQWUIO5291-88-87 21:25:00 Test Item Value Reference Range Interpretation [...] DIC with DIC panel may be indicated. CPT:09899 [facility] HospitalNvoyjfrRTJPFEOMUS6384-50-08 21:25:00 Test Item Value Reference Range Interpretation Comments Hgb (test code = Hgb) 11.8 12.0-16.0 [facility] HospitalIwjwfozABNROSEPOI1570-14-11 21:25:00 Test Item Value Reference Range Interpretation Comments Hct (test code = Hct) 35.6 36.0-48.0 [facility]LsrlbzmEQXRADBQTZ4175-64-24 21:25:00 Test Item Value Reference Range Interpretation Comments MCHC (test code = MCHC) 33.3 32.0-36.0 [facility] HospitalDmgkkohKQAQGBFPXR3647-92-44 21:25:00 Test Item Value Reference Range Interpretation Comments MPV (test code = MPV) 7.6 7.4-10.4 [facility] HospitalNzbheuuNMTAXHOVED0106-83-06 21:25:00 Test Item Value Reference Range Interpretation Comments RDW (test code = RDW) 13.7 11.5-14.5 [facility] HospitalMbzjurmFMVHNRNSBA5304-20-31 21:25:00 Test Item Value Reference Range Interpretation Comments Platelet (test code = Platelet) 298 133-450 [facility] HospitalFcftqhkGEIBQDPMLT6584-56-65 21:25:00 Test Item Value Reference Range Interpretation Comments MCV (test code = MCV) 85.0 80.0-98.0 [facility] HospitalOwtozjgEYGAQZYMQE5969-78-72 21:25:00 Test Item Value Reference Range Interpretation Comments MCH (test code = MCH) 28.3 pg 27.0-31.0 [facility] HospitalIzitvyeINUCZPBBQC4069-72-00 21:25:00 Test Item Value Reference Range Interpretation Comments WBC (test code = WBC) 7.5 3.7-10.4 [facility] HospitalRnkijdgZCPGUBYJWY9365-37-32 21:25:00 Test Item Value Reference Range Interpretation Comments RBC (test code = RBC) 4.18 4.20-5.40 [facility] [id number] 21:25:00 Test Item Value Reference Range Interpretation Comments Hgb A1C (test code = Hgb A1C) 5.2 [facility]CHE[facility] [id number] 21:25:00 Test Item Value Reference Range Interpretation Comments Albumin Lvl (test code = Albumin Lvl) 3.5 3.5-5.0 [facility]CHE[facility] TMDKH9768-30-27 21:25:00 Test Item Value Reference Range Interpretation Comments ALT (test code = ALT) 28 See_Comment [Auto mated message] The system which ge nerated this result transmit james reference range : <=65. The reference range was not used to interpr et this result as mary l/abnormal. [facility]2016-09-26 21:25:00 Test Item Value Reference Range Interpretation Comments AST (test code = AST) 22 See_Comment [Auto mated message] The system which ge nerated this result transmit james reference range : <=37. The reference range was not used to interpr et this result as mary l/abnormal. [facility]2016-09-26 21:25:00 Test Item Value Reference Range Interpretation Comments Total Protein (test code = Total 6.2 6.4-8.4 Protein) [facility]2016-09-26 21:25:00 Test Item Value Reference Range Interpretation Comments Alk Phos (test code = Alk Phos) 37 39-136 [facility]2016-09-26 21:25:00 Test Item Value Reference Range Interpretation Comments Bili Total (test code = Bili Total) 0.5 0.2-1.3 [facility]2016-09-26 21:25:00 Test Item Value Reference Range Interpretation Comments Globulin (test code = Globulin) 2.7 2.7-4.2 [facility]2016-09-26 21:25:00 Test Item Value Reference Range Interpretation Comments A/G Ratio (test code = A/G Ratio) 1.3 0.7-1.6 [facility]2016-09-26 21:25:00 Test Item Value Reference Range Interpretation Comments B/C Ratio (test code = B/C Ratio) 30 6-25 [facility] HospitalZ[id number] 21:25:00 Test Item Value Reference Range Interpretation Comments Segs-Bands # (test code = Segs-Bands #) 4.3 1.5-8.1 [facility] HospitalNmxudlmDXSLJLVLUO1823-54-67 21:25:00 Test Item Value Reference Range Interpretation Comments Monocytes # (test code 0.7 See_Comment [Aut omated message] The = Monocytes #) system which generated this result tra nsmitted reference range : <=0.8. The reference r malinda was not used to int erpret this result as normal/abnormal . [facility] HospitalOuljmpzGLVMGTALMY8138-19-33 21:25:00 Test Item Value Reference Range Interpretation Comments Lymphocytes # (test code = Lymphocytes 1.3 1.0-5.5 #) [facility] HospitalCpubhyzWHPCKYDHLV2371-55-55 21:25:00 Test Item Value Reference Range Interpretation Comments Basophils # (test code 0.1 See_Comment [Aut omated message] The = Basophils #) system which generated this result tra nsmitted reference range : <=0.2. The reference r malinda was not used to int erpret this result as normal/abnormal . [facility] HospitalBcerpgpISLYGPGOPP8031-35-54 21:25:00 Test Item Value Reference Range Interpretation Comments Eosinophils # (test code 1.1 See_Comment [A utomated message] The = Eosinophils #) system whic h generated this result tra nsmitted reference range : <=0.5. The reference r malinda was not used to int erpret this result as normal/abnormal . [facility] HospitalZvvebcjOYVRTFPHPF1473-66-96 21:25:00 Test Item Value Reference Range Interpretation Comments Segs (test code = Segs) 57.3 45.0-75.0 [facility] HospitalJxzuthfPGKPOUQJVS3964-45-99 21:25:00 Test Item Value Reference Range Interpretation Comments Lymphocytes (test code = Lymphocytes) 16.9 20.0-40.0 [facility] HospitalNrgnlncGHZKZLBHZD3689-87-66 21:25:00 Test Item Value Reference Range Interpretation Comments Eosinophils (test code = 14.8 See_Comment [A utomated message] The Eosinophils) system which ge nerated this result tra nsmitted reference range : <=4.0. The reference r malinda was not used to int erpret this result as normal/abnormal . [facility] HospitalOexvedwVTVCCMKGZH0836-47-99 21:25:00 Test Item Value Reference Range Interpretation Comments Basophils (test code = 1.4 See_Comment [Aut omated message] The Basophils) system which ge nerated this result tra nsmitted reference range : <=1.0. The reference r malinda was not used to int erpret this result as normal/abnormal . [facility] HospitalYtiibffXCONUBSPGQ9383-97-59 21:25:00 Test Item Value Reference Range Interpretation Comments Monocytes (test code = Monocytes) 9.6 2.0-12.0 [facility] HospitalGlhixtsFXFJKLXUNN9104-18-61 21:25:00 Test Item Value Reference Range Interpretation Comments Ly30 (test code = 8.9 See_Comment [Automate d message] The Ly30) system which ge nerated this result transmit james reference range : <=7.5. The reference range was not used to interpr et this result as mary l/abnormal. [facility] HospitalVbbhvxqBQYOBETNXD4089-31-76 21:25:00 Test Item Value Reference Range Interpretation Comments G-value (test code = G-value) 13.2 4.5-11.0 [facility] HospitalTttxztuTWBJJZNFIO9688-98-62 21:25:00 Test Item Value Reference Range Interpretation Comments TEG Data (test code = See Note (03/28/16 4:25 TEG Data) PM) [place] [id number] 21:25:00 Test Item Value Reference Range Interpretation Comments Coag Index (test code 4.2 See_Comment [Auto mated message] The = Coag Index) system which g enerated this result transmit james reference range : <=3.0. The reference range was not used to interpr et this result as mary l/abnormal. [facility] HospitalEpkozxfKUYWBYYVEY4425-84-10 21:25:00 Test Item Value Reference Range Interpretation Comments Angle (test code = Angle) 76.9 degrees 53.0-72.0 [facility] HospitalMjoghpxHCUZPBRKGA5925-76-46 21:25:00 Test Item Value Reference Range Interpretation Comments R-time (test code = R-time) 3.7 min 5.0-10.0 [facility] HospitalJoahyhzULIVSSOPKJ3246-73-55 21:25:00 Test Item Value Reference Range Interpretation Comments Max Amp (test code = Max Amp) 72.5 mm 50.0-70.0 [facility] HospitalCahgoubEQVGYDPNIZ8425-30-69 21:25:00 Test Item Value Reference Range Interpretation Comments K-time (test code = K-time) 0.8 min 1.0-3.0 [facility] HospitalJhqjjxjZNCOVKQTVT4618-25-94 21:25:00 Test Item Value Reference Range Interpretation [...] DIC with DIC panel may be indicated. CPT:60278 [facility] HospitalBduzimlCOETWXAIGL6327-94-31 21:25:00 Test Item Value Reference Range Interpretation Comments Hgb (test code = Hgb) 11.8 12.0-16.0 [facility] HospitalKjmqxmeMSHJHNGUTG6772-72-04 21:25:00 Test Item Value Reference Range Interpretation Comments Hct (test code = Hct) 35.6 36.0-48.0 [facility]IkthzciIIBPNMMKTC2575-73-15 21:25:00 Test Item Value Reference Range Interpretation Comments MCHC (test code = MCHC) 33.3 32.0-36.0 [facility] HospitalRjxmkqdLYFAUBOGOY8050-46-21 21:25:00 Test Item Value Reference Range Interpretation Comments MPV (test code = MPV) 7.6 7.4-10.4 [facility] HospitalPdprwynOMXIJWQHHE3163-72-54 21:25:00 Test Item Value Reference Range Interpretation Comments RDW (test code = RDW) 13.7 11.5-14.5 [facility] HospitalXuotmttAEAVVNSAEX3933-89-99 21:25:00 Test Item Value Reference Range Interpretation Comments Platelet (test code = Platelet) 298 133-450 [facility] HospitalNwotxgkHBYMDNTJTZ6758-78-24 21:25:00 Test Item Value Reference Range Interpretation Comments MCV (test code = MCV) 85.0 80.0-98.0 [facility] HospitalVyneeguEEFBHFMCMW4384-14-72 21:25:00 Test Item Value Reference Range Interpretation Comments MCH (test code = MCH) 28.3 pg 27.0-31.0 [facility] HospitalWusrvmyHCRGQZMRGY9513-60-48 21:25:00 Test Item Value Reference Range Interpretation Comments WBC (test code = WBC) 7.5 3.7-10.4 [facility] HospitalHgtvvciCJTAHPACQI0866-29-09 21:25:00 Test Item Value Reference Range Interpretation Comments RBC (test code = RBC) 4.18 4.20-5.40 [facility] WITXSIXIM4306-79-80 21:25:00 Test Item Value Reference Range Interpretation Comments Hgb A1C (test code = Hgb A1C) 5.2 [facility]
--- NOTE | 2022-08-29 16:06 | RAD REPORT ---
EXAM DESCRIPTION: RADChest Single View08/29/2022 3:15 pm CLINICAL HISTORY: COUGH COMPARISON: Chest Single View dated 08/18/2022; Chest Single View dated 10/02/2020; Chest Single View d ated 05/09/2017; Chest Single View dated 03/21/2017 TECHNIQUE: Portable AP view of the chest. FINDINGS: Poor penetration somewhat limits evaluation. The lungs show no focal consolidation. Mild c ardiomegaly and prominence of the central vascular markings are suspected. Interval improvement of ae ration in the left base. No pneumothorax or effusion. The cardiomediastinal contours are unchanged. B ilateral reverse shoulder arthroplasty is again noted. IMPRESSION: Within limits of poor penetration, there is interval improvement of aeration at the left base. Residual mild central venous congestion.
[2022-08-29] MEDS ORDERED: ONDANSETRON 4 MG/2 ML VIAL ONE (16:10)
[2022-08-29] MEDS ORDERED: FENTANYL CITR 100 MCG/2 ML ONE (16:10)
[2022-08-29] MEDS ORDERED: NA CHLORIDE 0.9% 100 ML ONE (16:11)
[2022-08-29] MEDS ORDERED: CEFEPIME 1 GM/VIAL ONE (16:11)
[2022-08-29 16:18] LABS: SARS-COV-2 RT PCR NEGATIVE (NEGATIVE)
--- NOTE | 2022-08-29 16:34 | EDPHYS ---
Physician Documentation [facility] Name: Little Stafford Age: 77 yrs Sex: Female : 1945 Arrival Date: 08/29/2022 Time: 14:42 Bed 14 Private MD: LIO Physician Yariel Cohen HPI: 08/29 16:08 This 77 yrs old Female presents to ER via EMS with complaints of intractable jae pain, spine weak. 16:08 The patient presents with abdominal pain in the upper abdomen. Onset: The jae symptoms/episode began/occurred 6 week(s) ago. The patient complains of pain in the left scapular area, right scapular area, left subscapular area, right subscapular area, left low back, left mid back, right mid back and right low back. The pain does not radiate. Onset: The symptoms/episode began/occurred 6 week(s) ago. Modifying factors: The symptoms are alleviated by nothing. remaining still, the symptoms are aggravated by movement. The patient presents with pain that is acute, that is chronic, with no known mechanism of injury, and decreased range of motion. The symptoms are located in the thoracic area, lumbar area and sacrum. Historical: - Allergies: 14:43 NKDA; ll1 - PMHx: 14:43 Gout; Hyperlipidemia; High Cholesterol; GERD; DVT Left leg; Depression; Hypertension; ll1 Chronic pain; CHF; restless leg syndrome; - PSHx: 14:43 Unable to Obtain; ll1 - Immunization history:: Client reports receiving the 2nd dose of the Covid vaccine. - Social history:: Smoking status: Patient/guardian denies using tobacco, the patient reports quitting approximately 35 years ago. - Family history:: not pertinent. ROS: 16:08 Constitutional: Negative for fever, chills, and weight loss, Eyes: Negative for injury, jae pain, redness, and discharge, ENT: Negative for injury, pain, and discharge, Neck: Negative for injury, pain, and swelling, Cardiovascular: Negative for chest pain, palpitations, and edema, Respiratory: Negative for shortness of breath, cough, wheezing, and pleuritic chest pain, Abdomen/GI: Negative for abdominal pain, nausea, vomiting, diarrhea, and constipation, : Negative for injury, bleeding, discharge, and swelling, MS/Extremity: Negative for injury and deformity, Neuro: Negative for headache, weakness, numbness, tingling, and seizure, Psych: Negative for depression, anxiety, suicide ideation, homicidal ideation, and hallucinations, Allergy/Immunology: Negative for hives, rash, and allergies, Endocrine: Negative for neck swelling, polydipsia, polyuria, polyphagia, and marked weight changes, Hematologic/Lymphatic: Negative for swollen nodes, abnormal bleeding, and unusual bruising. 16:08 Back: Positive for injury or acute deformity, decreased range of motion, pain at rest, pain with movement. 16:08 MS/extremity: Positive for decreased range of motion, pain, left lower ext venous stasis. 16:08 Skin: Positive for pallor. 16:08 Neuro: Positive for dizziness, weakness. Exam: 16:08 Constitutional: This is a well developed, well nourished patient who is awake, alert, jae and in no acute distress. Head/Face: Normocephalic, atraumatic. Eyes: Pupils equal round and reactive to light, extra-ocular motions intact. Lids and lashes normal. Conjunctiva and sclera are non-icteric and not injected. Cornea within normal limits. Periorbital areas with no swelling, redness, or edema. ENT: Nares patent. No nasal discharge, no septal abnormalities noted. Tympanic membranes are normal and external auditory canals are clear. Oropharynx with no redness, swelling, or masses, exudates, or evidence of obstruction, uvula midline. Mucous membranes moist. Neck: Trachea midline, no thyromegaly or masses palpated, and no cervical lymphadenopathy. Supple, full range of motion without nuchal rigidity, or vertebral point tenderness. No Meningismus. Chest/axilla: Normal chest wall appearance and motion. Nontender with no deformity. No lesions are appreciated. Cardiovascular: Regular rate and rhythm with a normal S1 and S2. No gallops, murmurs, or rubs. Normal PMI, no JVD. No pulse deficits. Respiratory: Lungs have equal breath sounds bilaterally, clear to auscultation and percussion. No rales, rhonchi or wheezes noted. No increased work of breathing, no retractions or nasal flaring. Female : Normal external genitalia. Neuro: Awake and alert, GCS 15, oriented to person, place, time, and situation. Cranial nerves II-XII grossly intact. Motor strength 5/5 in all extremities. Sensory grossly intact. Cerebellar exam normal. Normal gait. Psych: Awake, alert, with orientation to person, place and time. Behavior, mood, and affect are within normal limits. 16:08 Cardiovascular: Rate: actual rate is 90 bpm, Rhythm: irregularly irregular, Pulses: Pulses are 4+ in bilateral radial, brachial, femoral, popliteal, posterior tibial and and dorsalis pedis arteries.. Heart sounds: normal, murmur, rub, gallop, Edema: 1+ edema to level of left midcalf and right midcalf, JVD: is not appreciated. 16:08 ECG was reviewed by the Attending Physician. 16:08 Abdomen/GI: Inspection: distension, Bowel sounds: normal, Palpation: soft, Liver: no appreciated palpable abnormalities, Hernia: not appreciated. Vital Signs: 14:44 BP 111 / 76; Pulse 77; Resp 20; Temp 97.8; Pulse Ox 95% on R/A; Weight 108.86 kg; ll1 Height 5 ft. 4 in. (162.56 cm); Pain 10/10; 16:10 BP 108 / 71; Pulse 74; Resp 19; Pulse Ox 96% on R/A; ll1 16:24 BP 101 / 63; Pulse 96; Resp 20; Pulse Ox 83% on R/A; ll1 16:24 Pulse Ox 93% on 3 lpm NC; ll1 17:15 BP 111 / 62; Pulse 81; Resp 18; Pulse Ox 100% on 3 lpm NC; ll1 18:38 BP 100 / 57; Pulse 73; Resp 18; Pulse Ox 94% on 3 lpm NC; ll1 19:45 BP 102 / 68; Pulse 89; Resp 17 S; Pulse Ox 95% on 3 lpm NC; aa9 14:44 Body Mass Index 41.20 (108.86 kg, 162.56 cm) ll1 MDM: 14:44 Patient medically screened. jae 16:24 Differential diagnosis: Obesity Osteoarthritis Osteoporosis Pyelonephritis Renal jae Infarction ruptured disc, Scoliosis spinal injury, sprain, Ureterolithiasis Cholelithiasis, non-specific abd pain, pancreatitis. Data reviewed: vital signs, nurses notes, diagnostic data from outside facility, old medical records, lab test result(s), EKG, radiologic studies, CT scan. Consideration of Admission/Observation Patient was admitted/placed on observation. Escalation of care including admission/observation considered. Independent interpretation of the following test(s) in the Emergency Department EKG: See my EKG interpretation above. Care significantly affected by the following chronic conditions: Hypertension, Obesity, hyperlipid, gerd, dvt, on eliquis. 08/29 14:50 Order name: Basic Metabolic Panel; Complete Time: 15:59 [facility] 08/29 14:50 Order name: CBC with Diff; Complete Time: 15:59 [facility] 08/29 14:50 Order name: LFT's; Complete Time: 15:59 [facility] 08/29 14:50 Order name: Magnesium; Complete Time: 15:59 [facility] 08/29 14:50 Order name: NT PRO-BNP; Complete Time: 15:59 [facility] 08/29 14:50 Order name: PT-INR; Complete Time: 15:59 [facility] 08/29 14:50 Order name: Troponin HS; Complete Time: 15:59 [facility] 08/29 14:50 Order name: Lipase; Complete Time: 15:59 [facility] 08/29 14:50 Order name: COVID-19/FLU A+B; Complete Time: 16:56 [facility] 08/29 15:28 Order name: Urine Dipstick-Ancillary; Complete Time: 15:59 [facility] 08/29 16:04 Order name: Urine Culture [facility] 08/29 18:45 Order name: Hemoglobin A1c [facility] 08/29 18:45 Order name: Lipid Profile [facility] 08/29 18:45 Order name: Blood Culture [facility] 08/29 14:50 Order name: XRAY Chest (1 view); Complete Time: 16:56 [facility] 08/29 14:50 Order name: CT Head Brain wo Cont; Complete Time: 15:59 [facility] 08/29 16:01 Order name: MRI Lumbar Spine wo Con [facility] 08/29 18:45 Order name: Creatine Phosphokinase [facility] 08/29 18:45 Order name: Magnesium [facility] 08/29 18:45 Order name: Phosphorus [facility] 08/29 18:46 Order name: T4 Free [facility] 08/29 18:46 Order name: Thyroid Stimulating Hormone [facility] 08/29 18:46 Order name: Urinalysis [facility] 08/29 18:46 Order name: Basic Metabolic Panel [facility] 08/29 18:46 Order name: Basic Metabolic Panel [facility] 08/29 18:46 Order name: CBC with Automated Diff [facility] 08/29 18:46 Order name: CBC with Automated Diff [facility] 08/29 18:46 Order name: NT PRO-BNP [facility] 08/29 18:46 Order name: NT PRO-BNP [facility] 08/29 14:50 Order name: EKG; Complete Time: 14:51 [facility] 08/29 14:50 Order name: Cardiac monitoring; Complete Time: 15:33 [facility] 08/29 14:50 Order name: EKG - Nurse/Tech; Complete Time: 15:33 [facility] 08/29 14:50 Order name: IV Saline Lock; Complete Time: 14:59 [facility] 08/29 14:50 Order name: Labs collected and sent; Complete Time: 14:59 [facility] 08/29 14:50 Order name: O2 Per Protocol; Complete Time: 14:51 [facility] 08/29 14:50 Order name: O2 Sat Monitoring; Complete Time: 14:51 [facility] 08/29 14:50 Order name: Urine Dipstick-Ancillary (obtain specimen); Complete Time: 15:33 [facility] 08/29 16:57 Order name: CT Chest Abdomen Pelvis W/O Contrast [facility] 08/29 18:39 Order name: C Spine Wo Cont [facility] 08/29 18:39 Order name: Thoracic Spine Wo Contr [facility] 08/29 18:45 Order name: Heart Healthy [facility] 08/29 18:46 Order name: CT EDMS EC:08 Rate is 90 beats/min. Rhythm is regular. QRS Girard is Normal. NH interval is normal. QRS jae interval is normal. QT interval is normal. No Q waves. T waves are Normal. No ST changes noted. Clinical impression: Atrial Fibrillation and No evidence of ischemia. Interpreted by me. Reviewed by me. Administered Medications: 14:59 Drug: NS 0.9% 500 ml Route: IV; Rate: bolus; Site: right antecubital; ll1 16:02 Follow up: Response: No adverse reaction; IV Status: Completed infusion; IV Intake: ll1 500ml 15:35 Drug: NS 0.9% 1000 ml Route: IV; Rate: 125 ml/hr; Site: right antecubital; ll1 18:39 Follow up: Response: No adverse reaction; IV Status: Completed infusion; IV Intake: ll1 500ml 16:15 Drug: Zofran (Ondansetron) 4 mg Route: IVP; Site: right antecubital; 1 18:39 Follow up: Response: No adverse reaction [facility] 16:17 Drug: fentaNYL (PF) 50 mcg {Note: RASS 0, pain 10/10.} Route: IVP; Site: right ll1 antecubital; 18:40 Follow up: Response: No adverse reaction; Pain is decreased; RASS: Drowsy (-1) [facility] 16:22 Drug: Cefepime 1 grams Route: IVPB; Rate: 200 ml/hr; Infused Over: 30 mins; Site: right ll1 antecubital; 18:39 Follow up: Response: No adverse reaction; IV Status: Completed infusion; IV Intake: ll1 100ml Disposition Summary: 08/29/22 16:33 Hospitalization Ordered Hospitalization Status: Inpatient Admission jae Provider: Jorge Landeros cha Location: Telemetry/MedSurg (Inpatient) jae Condition: Fair jae Problem: new jae Symptoms: have improved jae Bed/Room Type: Standard jae Room Assignment: 209(08/29/22 19:36) mw Diagnosis - Morbid (severe) obesity due to excess calories jae - Low back pain - intracrable jae - Anemia in other chronic diseases classified elsewhere jae - Anemia, unspecified jae - Elevated white blood cell count jae - UTI/ Urinary tract infection, site not specified jae - Persistent atrial fibrillation jae - Unspecified kidney failure - insufficency jae - longterm (current) use of anticoagulants jae Forms: - Medication Reconciliation Form jae - SBAR form jea Signatures: Dispatcher [employer] EDMS Rosemarie Downs RN RN mw Anderson, Corey, MD MD cha Lewis, Lynsay RN RN ll1 Corrections: (The following items were deleted from the chart) 18:47 16:02 Head C Spine Cap Wo Con+CT.RAD.BRZ ordered. EDMS EDMS 19:36 16:33 jae mw
--- NOTE | 2022-08-29 16:34 | ER ---
Nurse's Notes [facility] Name: Little Stafford Age: 77 yrs Sex: Female : 1945 Arrival Date: 08/29/2022 Time: 14:42 Bed 14 Private MD: Diagnosis: Morbid (severe) obesity due to excess calories;Low back pain-intracrable;Anemia in other chronic diseases classified elsewhere;Anemia, unspecified;Elevated white blood cell count;UTI/ Urinary tract infection, site not specified;Persistent atrial fibrillation;Unspecified kidney failure-insufficency;longterm (current) use of anticoagulants Presentation: 08/29 14:44 Chief complaint: Patient states: Pain "all over" and SOB for 1 day. EMS states: Sent in ll1 for AMS, confusion, and SOB. Coronavirus screen: Vaccine status: Patient reports receiving the 2nd dose of the covid vaccine. Client denies travel out of the [place] in the last 14 days. cough unrelated to allergies, difficulty breathing, shortness of breath, Client presents with at least one sign or symptom that may indicate coronavirus-19. Standard/surgical mask placed on the client. Ebola Screen: Patient denies travel to an Ebola-affected area in the 21 days before illness onset. Initial Sepsis Screen: Does the patient meet any 2 criteria? No. Patient's initial sepsis screen is negative. Does the patient have a suspected source of infection? Yes: Productive cough/pneumonia. Risk Assessment: Do you want to hurt yourself or someone else? Patient reports no desire to harm self or others. Onset of symptoms was August 29, 2022. 14:44 Method Of Arrival: EMS ll1 14:44 Acuity: KELLEY 3 ll1 Triage Assessment: 14:46 General: Appears uncomfortable, Behavior is calm, cooperative, appropriate for age. ll1 Pain: Complains of pain in right leg Quality of pain is described as aching. Neuro: No deficits noted. Respiratory: Reports shortness of breath labored breathing Airway is patent Respiratory effort is even, unlabored, Respiratory pattern is regular. Musculoskeletal: Reports pain in right leg. Historical: - Allergies: 14:43 NKDA; ll1 - PMHx: 14:43 Gout; Hyperlipidemia; High Cholesterol; GERD; DVT Left leg; Depression; Hypertension; ll1 Chronic pain; CHF; restless leg syndrome; - PSHx: 14:43 Unable to Obtain; ll1 - Immunization history:: Client reports receiving the 2nd dose of the Covid vaccine. - Social history:: Smoking status: Patient/guardian denies using tobacco, the patient reports quitting approximately 35 years ago. - Family history:: not pertinent. Screenin:47 [facility] ED Fall Risk Assessment (Adult) Confusion or Disorientation Yes (5 pts) ll1 Score/Fall Risk Level 3 or more points = High Risk Oriented to surroundings, Maintained a safe environment, Educated pt \\T\\ family on fall prevention, incl call for assistance when getting out of bed, Apply high fall risk patient identification: yellow non skid footwear/ fall signage, Offered frequent toileting (1:1 observation), Utilized family, sitter, or virtual gis instructor as indicated. Abuse screen: Denies threats or abuse. Nutritional screening: No deficits noted. Tuberculosis screening: No symptoms or risk factors identified. Assessment: 15:27 Reassessment: No changes from previously documented assessment. Patient and/or family ll1 updated on plan of care and expected duration. Pain level reassessed. 16:25 Reassessment: No changes from previously documented assessment. Patient and/or family ll1 updated on plan of care and expected duration. Pain level reassessed. 17:30 Reassessment: No changes from previously documented assessment. ll1 18:38 Reassessment: No changes from previously documented assessment. Patient and/or family ll1 updated on plan of care and expected duration. Pain level reassessed. 20:06 Reassessment: Patient appears in no apparent distress at this time. aa9 20:09 Reassessment: report provided to receiving nurse. aa9 20:30 General: Appears comfortable, ill, Behavior is calm, cooperative, appropriate for age, aa9 understands room assignment, clinical technician transporting pt to room 209 via stretcher . 20:32 Reassessment: daughter accompanied pt upstairs. aa9 Vital Signs: 14:44 BP 111 / 76; Pulse 77; Resp 20; Temp 97.8; Pulse Ox 95% on R/A; Weight 108.86 kg; ll1 Height 5 ft. 4 in. (162.56 cm); Pain 10/10; 16:10 BP 108 / 71; Pulse 74; Resp 19; Pulse Ox 96% on R/A; ll1 16:24 BP 101 / 63; Pulse 96; Resp 20; Pulse Ox 83% on R/A; ll1 16:24 Pulse Ox 93% on 3 lpm NC; ll1 17:15 BP 111 / 62; Pulse 81; Resp 18; Pulse Ox 100% on 3 lpm NC; ll1 18:38 BP 100 / 57; Pulse 73; Resp 18; Pulse Ox 94% on 3 lpm NC; ll1 19:45 BP 102 / 68; Pulse 89; Resp 17 S; Pulse Ox 95% on 3 lpm NC; aa9 14:44 Body Mass Index 41.20 (108.86 kg, 162.56 cm) ll1 ED Course: 14:42 Patient arrived in ED. bd 14:43 Arm band placed on Patient placed in an exam room, on a stretcher. ll1 14:44 Yariel Cohen MD is Attending Physician. jae 14:46 Triage completed. ll1 14:47 Patient has correct armband on for positive identification. Bed in low position. Call ll1 light in reach. Side rails up X2. Client placed on continuous cardiac and pulse oximetry monitoring. NIBP monitoring applied. dehairer on. 14:50 Serenity Chavez, RN is Primary Nurse. ll1 14:59 Inserted saline lock: 22 gauge in right antecubital area, using aseptic technique. ll1 Blood collected. 15:14 CT Head Brain wo Cont In Process Unspecified. EDMS 15:17 XRAY Chest (1 view) In Process Unspecified. EDMS 16:31 Jorge Landeros is Hospitalizing Provider. jae 18:38 No provider procedures requiring assistance completed. Patient admitted, IV remains in ll1 place. Administered Medications: 14:59 Drug: NS 0.9% 500 ml Route: IV; Rate: bolus; Site: right antecubital; ll1 16:02 Follow up: Response: No adverse reaction; IV Status: Completed infusion; IV Intake: ll1 500ml 15:35 Drug: NS 0.9% 1000 ml Route: IV; Rate: 125 ml/hr; Site: right antecubital; ll1 18:39 Follow up: Response: No adverse reaction; IV Status: Completed infusion; IV Intake: ll1 500ml 16:15 Drug: Zofran (Ondansetron) 4 mg Route: IVP; Site: right antecubital; ll1 18:39 Follow up: Response: No adverse reaction [facility] 16:17 Drug: fentaNYL (PF) 50 mcg {Note: RASS 0, pain 10/10.} Route: IVP; Site: right ll1 antecubital; 18:40 Follow up: Response: No adverse reaction; Pain is decreased; RASS: Drowsy (-1) [facility] 16:22 Drug: Cefepime 1 grams Route: IVPB; Rate: 200 ml/hr; Infused Over: 30 mins; Site: right ll1 antecubital; 18:39 Follow up: Response: No adverse reaction; IV Status: Completed infusion; IV Intake: ll1 100ml Medication: 14:47 VIS not applicable for this client. 1 Intake: 16:02 IV: 500ml; Total: 500ml. 1 18:39 IV: 500ml; Total: 1000ml. ll1 18:39 IV: 100ml; Total: 1100ml. [facility] Outcome: 16:33 Decision to Hospitalize by Provider. [facility] 18:40 Admitted to ER Hold. Please see [facility] for further documentation. [facility] 18:40 Condition: stable 18:40 Instructed on the need for admit. 20:32 Patient left the ED. aa9 Signatures: Dispatcher [employer] EDMS Anastasiya Hobson Corey, MD MD cha Lewis, Lynsay, RN RN [facility] Sarah Arzate RN RN aa9 Corrections: (The following items were deleted from the chart) 18:39 15:27 Reassessment: No changes from previously documented assessment. Patient and/or ll1 family updated on plan of care and expected duration. Pain level reassessed. Patient is alert, oriented x 3, equal unlabored respirations, skin warm/dry/pink. [facility] 18:39 16:25 Reassessment: No changes from previously documented assessment. Patient and/or ll1 family updated on plan of care and expected duration. Pain level reassessed. Patient is alert, oriented x 3, equal unlabored respirations, skin warm/dry/pink. [facility]
[2022-08-29] MEDS ORDERED: ACETAMINOPHEN 325 MG TABLET PO PRN (17:43)
[2022-08-29] MEDS ORDERED: ALBUTEROL 2.5 MG/3 ML NEB SOL NEB PRN (17:47)
[2022-08-29] MEDS ORDERED: ONDANSETRON 4 MG/2 ML VIAL IV PRN (17:47)
--- NOTE | 2022-08-29 17:49 | P.HP ---
Certification for Inpatient Patient admitted to: Inpatient With expected LOS: >2 Midnights Patient will require the following post-hospital care: None Practitioner: I am a practitioner with admitting privileges, knowledge of patient current condition, hospital course, and medical plan of care. Services: Services provided to patient in accordance with Admission requirements found in Title 42 Section 412.3 of the Code of Federal Regulations Patient History Date of Service: 08/29/22 Reason for admission: Back pain History of Present Illness: Patient is a 77-year-old male with a past medical history significant for gout, HLD, GERD, DVT, depression, hypertension, chronic back pain, CHF, RLS who presents with complaint of intractable low back pain that has been ongoing for the past 6 months. Patient is alert and oriented x2, confused and unable to provide accurate history. Patient's spouse reported that pain is no longer being managed with oral p.o. medications. Patient rated pain as 10/10 in severity and described pain as aching in quality. Patient's spouse reported that patient has been bedbound for the past 1 month due to pain. Patient is on home O2 therapy. Bilateral extremity edema noted. Patient denies any other signs or symptoms. Symptoms are aggravated independently. Patient was brought to the hospital for medical evaluation. Allergies No Known Allergies Allergy (Verified 08/29/22 21:03) Home Medications: Atorvastatin Calcium 20 mg PO DAILY 05/10/17 Folic Acid 1 mg PO BID 05/10/17 Gabapentin 600 mg PO QID 05/10/17 Hydromorphone [Dilaudid*] 2 mg PO Q8H PRN 05/10/17 Losartan/Hydrochlorothiazide [Losartan-Hctz 50-12.5 mg Tab] 1 each PO DAILY 05/10/17 Pantoprazole [Protonix Tab*] 40 mg PO DAILY 05/10/17 Potassium Chloride 20 meq PO BID 05/10/17 Ropinirole HCl [Requip*] 1 mg PO 6XD 05/10/17 Trazodone HCl 150 mg PO BEDTIME 05/10/17 Albuterol Inhaler [Ventolin Inhaler*] 8 gm IH PRN PRN 08/20/20 Allopurinol 300 mg PO DAILY 08/20/20 Apixaban [Eliquis *] 2.5 mg PO BID 08/20/20 Bumetanide 2 mg PO BID 08/20/20 Cyanocobalamin (Vitamin B-12) [Vitamin B-12] 1 cap PO DAILY 08/20/20 Duloxetine HCl 60 mg PO BID 08/20/20 Fluticasone/Vilanterol [Breo Ellipta 200-25 Mcg INH] 1 each IH DAILY 08/20/20 Spironolactone 25 mg PO DAILY 08/20/20 Ubidecarenone [Co Q-10] 400 mg PO DAILY 08/20/20 Hydrocodone/Acetaminophen [Hydrocodone-Acetamin 7.5-325] 5 mg PO Q6HR PRN 08/19/22 Cefuroxime Axetil [Cefuroxime] 500 mg PO BID 7 Days #14 tab 08/20/22 Metoprolol Tartrate [Lopressor*] 25 mg PO BID 6AM 6PM 30 Days #60 tab 08/20/22 - Past Medical/Surgical History Diabetic: No -: CHF, Chronic pain, Depression, DVT left leg -: GERD, High Cholesterol, Hyperlipidemia, -: Hypertension, Restless leg syndrome -: Psoriasis -: Osteoarthritis -: Left ankle surgery -: Right knee surgery Psychosocial/ Personal History: Patient lives at home with her , uses wheelchair - Family History Mother -: Heart disease Father -: Cancer - Social History Smoking Status: Never smoker Alcohol use: No CD- Drugs: No Caffeine use: Yes Place of Residence: Home Review of Systems is unable to be obtained (Patient is confused) Physical Examination - Physical Exam General: Alert, In no apparent distress, Oriented x2, Confused HEENT: Atraumatic, PERRLA, Mucous membr. moist/pink, EOMI, Sclerae nonicteric Neck: Supple, 2+ carotid pulse no bruit, No LAD, Without JVD or thyroid abnormality Respiratory: Normal air movement, Diminished Cardiovascular: Regular rate/rhythm, Normal S1 S2, Edema Capillary refill: <2 Seconds Gastrointestinal: Normal bowel sounds, Soft and benign, No tenderness Musculoskeletal: No tenderness, Swelling Integumentary: No rashes, No significant lesion Neurological: Normal speech, Normal tone, Normal affect Lymphatics: No axilla or inguinal lymphadenopathy - Studies Laboratory Data (last 24 hrs) 08/29/22 14:55: PT 15.7 H, INR 1.43 08/29/22 14:55: WBC 13.50 H, Hgb 10.4 L, Hct 32.5 L, Plt Count 423 H 08/29/22 14:55: Sodium 134 L, Potassium 3.8, BUN 43 H, Creatinine 1.13 H, Glucose 109 H, Magnesium 2.1, Total Bilirubin 0.3, AST 13 L, ALT 14, Alkaline Phosphatase 101, Lipase 55 Assessment and Plan - Plan --Intractable back pain. Patient follows up with an outpatient neurosurgeon per family report. Pain has not been controlled by oral p.o. meds. C-spine\lumbar spine\thoracic spine MRI pending. Family reported that patient follows up with a neurosurgeon. We will manage pain with current pain medication regimen. PT eval and treat. Will await further recommendation from physical therapy. Patient will likley benefit from Rehab --Leukocytosis. Blood cultures pending. Will reassess WBC in AM. --Hypertension. Stable. Continue home medications. --Chronic systolic CHF. Continue diuresis with Lasix. Daily weight and strict I/O. -- RLS. Continue ropinirole. --GERD. Continue Protonix. --Hyperlipidemia. Continue statin. --History of DVT. Continue Eliquis. --Depression. Continue home medication. --Gout. Continue --Acute on chronic systolic CHF exacerbation. Continue diuresis with Lasix. Daily weights and strict I/O. --Obesity. Likely secondary to sedentary lifestyle and excess calories intake. Patient without signs of weight reduction, diet and excise therapy when appropriate. -- DVT prophylaxis with Eliquis Discharge Plan: Snf Plan to discharge in: Greater than 2 days - Advance Directives Does patient have a Living Will: No Does patient have a Durable POA for Healthcare: No - Code Status/Comfort Care Code Status Assessed: Yes Physician Review: Patient Assessed, Agree with Above Assessment and Plan Critical Care: No
--- NOTE | 2022-08-29 18:37 | EKG ---
Test Date: 2022-08-29 Test Time: 15:26:43 Home Economics Extension Worker: RAFI MEASUREMENT RESULTS: Intervals: Rate: 90 VA: QRSD: 108 QT: 352 QTc: 430 [place]: P: VA: QRS: 66 T: 103 INTERPRETIVE STATEMENTS: Atrial fibrillation Low voltage QRS Abnormal ECG Compared to ECG 08/18/2022 16:39:50 Ventricular premature complex(es) no longer present Myocardial infarct finding no longer present Electronically Signed On 08-29-22 18:36:37 SPA CONCIERGE by Lefty Hurt
--- NOTE | 2022-08-29 18:45 | RAD REPORT ---
EXAM DESCRIPTION: CT - Chest Abd Pelvis Wo Con - 08/29/2022 6:09 pm CLINICAL HISTORY: Pain and shortness of breath TRAUMA COMPARISON: Chest For Pe Angio dated 08/18/2022 TECHNIQUE: Axial thin cut CT images of the chest, abdomen, and pelvis, obtained without IV contrast. Multiplanar reformats were generated and reviewed. All CT scans are performed using dose optimization technique as appropriate and may include automated exposure control or mA/KV adjustment according to patient size. FINDINGS: The lungs demonstrate bilateral small pleural effusions, probably stable, with underlying segmental atelectatic changes.No intrathoracic adenopathy. The liver, spleen, pancreas, adrenal glands and kidneys are within normal limits, apart from a probab le exophytic left superior pole 2.7 centimeters cyst. The gastric band is present. Status post cholecystectomy. No bowel obstruction, free air, free fluid or abscess. Normal appendix. No pathologic lymphadenopathy in the abdomen or pelvis. Urinary bladde r is decompressed with Obando catheter in place. Moderate atherosclerotic calcifications throughout th e aorta. No worrisome osseous finding. Nonspecific lucent lesion along the anterior aspect of the right iliac crest, and the second lucent lesion posteriorly on the right (see axial images 87 and 83) Edematous changes involving the included right upper thigh, which appear to predominantly involve the quadriceps and adductor muscle compartments. IMPRESSION: No acute traumatic findings in the abdomen and pelvis. Edematous changes involving the included right upper thigh predominantly involving the quadriceps and adductor muscle compartments. Please correlate clinically, and consider duplex venous evaluation if there is persistent clinical concern for deep venous thrombosis. There are 2 small lucent lesions along the right iliac crest, indeterminate, with differential consid erations including benign in etiologies such as bone cysts, as well as metastatic disease. The findings were communicated to Lew Cantrell on 08/29/2022 at 18:40 hours.
[2022-08-29 19:19] VITALS: BMI 41.1
[2022-08-29 20:08] LABS: Magnesium 2.1 mg/dL (1.6-2.4); Phosphorus 3.2 mg/dL (2.5-4.9)
[2022-08-29 20:16] LABS: Creatine Phosphokinase < 12 U/L (26-192)
[2022-08-29] MEDS: HYDROCODONE/APAP 10/325 TAB PO PRN (21:43)
[2022-08-30 03:40] LABS: Absolute Lymphocytes (CBC) 1.2 K/uL (0.7-4.9); Hematocrit 30.9 % (36.0-45.0); Lymphocytes % 10.2 % (15.3-44.8); MCV 87.3 fL (80-100); MPV 6.8 fL (7.6-11.3); RBC Red Blood Cell Count 3.54 M/uL (3.86-4.86)
[2022-08-30 04:00] LABS: Potassium 3.7 mmol/L (3.5-5.1)
--- NOTE | 2022-08-30 06:35 | P.PN ---
Date of Service: 08/30/22 Subjective: no significant change - severe R leg pain and tenderness pain medication helping temporarily still very tender for MRI Today no new/worsening symptoms ROS: 10 point ROS as noted above, otherwise negative Physical exam GEN: Alert, oriented, obese HEENT: Normal conjunctiva, sclera anicteric CV: Regular rate and rhythm, no edema Pulm: mild labored respirations on 2L NC ABD: Soft, nontender, nondistended MSK: moderate-severe tenderness to palpation of RLE muscles - anterior/lateral thigh and gastrocnemius Integumentary: No rash of RLE Neuro: Normal speech, normal affect Problem List Severe RLE pain, acute on chronic lumbar pain h/o Spondylolysis HTN chronic systolic CHF GERD HLD h/o DVT depression gout s/p lap band h/o ongoing lower back pain for several years, worse in last 6 months; severe in last month bed bound at home due to pain was following with neurosurgeon outpatient, MRI ordered as outpatient pending MRI lumbar spine today concern due to pain, inability to tolerate CT noted edema of R quadriceps and adductor muscle compartments possible myositis, check CPK / CRP empiric steroids left VM for Dr. Johns confirm home meds, restart as appropriate VTE: home eliquis Code: full Dispo: may need SNF Time Spent Managing Pts Care (In Minutes): 45
[2022-08-30] MEDS: APIXABAN 2.5 MG TABLET PO SCH ×2 (08:27→20:25)
[2022-08-30] MEDS: ASPIRIN 81 MG CHEWABLE TABLET PO SCH (08:27)
[2022-08-30] MEDS: HYDROCODONE/APAP 10/325 TAB PO PRN ×2 (08:28→20:29)
[2022-08-30] MEDS: FUROSEMIDE 40 MG/4 ML VIAL IV SCH ×2 (08:28→17:18)
--- NOTE | 2022-08-30 08:44 | RAD REPORT ---
EXAM DESCRIPTION: US - Extrem Venous W Compress Fred - 08/30/2022 12:03 am CLINICAL HISTORY: Swelling. Rule out DVT COMPARISON: 10/15/2020. TECHNIQUE: Real-time sonographic evaluation of the bilateral lower extremity deep venous systems was performed. FINDINGS: Normal compressibility, flow augmentation, phasic flow and spontaneous flow is identified in both the left and right lower extremity deep venous systems. No intraluminal filling defects seen. IMPRESSION: No DVT in either lower extremity.
[2022-08-30] MEDS ORDERED: POTASSIUM CL SA 10 MEQ TAB PO ONE (09:00)
[2022-08-30] MEDS: HYDROMORPHONE HCL 1 MG/ML INJ IV PRN (12:37)
--- NOTE | 2022-08-30 15:51 | RAD REPORT ---
EXAM DESCRIPTION: MRI - Lumbar Spine Wo Con - 08/30/2022 3:33 pm CLINICAL HISTORY: eval for spondylosis and lumbar pain difficulty walking and loss of balance no hx of lumbar surgery COMPARISON: 04/21/2011 TECHNIQUE: Sagittal T1-weighted, T2-weighted and T2-STIR weighted sequences were obtained. Axial T1 -weighted and heavily T2-weighted sequenceswere obtained through the lumbar disc levels. FINDINGS: Lumbar bodies are normal in height and alignment. No suspicious marrow signal. No paraspin al masses. Conus is normal with no clumping or thickening of the cauda equina. T12-L1 level: Broad-based disc bulge with mild central spinal stenosis and moderate right and mild le ft bilateral neural foraminal narrowing. This is only seen on the sagittal view. L1-2 level: Broad-based disc bulge with ligamentum flavum facet hypertrophy results in mild bilateral neural foraminal narrowing and mild central spinal stenosis. L2-3 level: Broad-based disc bulge with ligamentum flavum and facet hypertrophy results in mild centr al spinal stenosis, moderate left neural foraminal narrowing, and moderate right neural foraminal fern rowing. L3-4 level: Right L3-4 laminectomy . Broad-based disc bulge with ligamentum flavum facet hypertrophy that is right eccentric. This results in severe right neural foraminal narrowing and mild to moderate left neural foraminal narrowing. Central spinal stenosis is noted that is mild. Right subarticular n arrowing. . L4-5 level: Broad-based disc bulge with ligamentum flavum facet hypertrophy results in a severe left and moderate to severe right neural foraminal narrowing. Central spinal stenosis is mild. There is al so encroachment at the right subarticular zone on the traversing right L5 nerve root. L5-S1 level: Disc height loss with broad-based disc bulge and facet and ligamentum flavum hypertrophy results in moderate bilateral neural foraminal narrowing. No central spinal stenosis. 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 The primary abnorm alities involve the neural foramina as well as some right subarticular stenosis as noted above. Centr al spinal stenosis is at most mild and probably not clinically significant. The neural foraminal narr owing is bilaterally.
[2022-08-30] MEDS ORDERED: HOME MED 1 EA UNK (Gabapentin [Gabapentin] 600 MG Tablet) PO SCH (17:00)
[2022-08-30] MEDS: METHYLPREDNISOLONE 125 MG INJ IV SCH (17:19)
[2022-08-30] MEDS: GABAPENTIN 300 MG CAP PO SCH ×2 (17:19→20:26)
[2022-08-31] MEDS: HYDROMORPHONE HCL 1 MG/ML INJ IV PRN (01:47)
[2022-08-31] MEDS: METHYLPREDNISOLONE 125 MG INJ IV SCH ×3 (01:47→16:49)
[2022-08-31 03:43] LABS: Absolute Lymphocytes (CBC) 0.6 K/uL (0.7-4.9); Hematocrit 30.9 % (36.0-45.0); Lymphocytes % 4.8 % (15.3-44.8); MPV 6.8 fL (7.6-11.3); RBC Red Blood Cell Count 3.51 M/uL (3.86-4.86)
[2022-08-31 04:05] LABS: Albumin 2.3 g/dL (3.4-5.0); Bilirubin Total 0.3 mg/dL (0.2-1.0); C-Reactive Protein 62.4 mg/L (<3.00); Potassium 4.7 mmol/L (3.5-5.1); Protein, Total 6.8 g/dL (6.4-8.2)
[2022-08-31 05:01] LABS: Blood Morphology Comment NOT SEEN (NOT SEEN); Platelet Estimate ADEQ
--- NOTE | 2022-08-31 07:09 | P.PN ---
Date of Service: 08/31/22 Subjective: she feels as though no significant change - severe R leg pain and tenderness pain medication helping temporarily no new/worsening symptoms ROS: 10 point ROS as noted above, otherwise negative Physical exam GEN: Alert, oriented, obese, NAD at rest HEENT: Normal conjunctiva, sclera anicteric CV: Regular rate and rhythm, trace b/l pedal edema Pulm: mild labored respirations on 2L NC ABD: Soft, nontender, nondistended MSK: mild tenderness to palpation of RLE muscles - anterior/lateral thigh and gastrocnemius Integumentary: No rash of RLE Neuro: Normal speech, normal affect Problem List Severe RLE pain, acute on chronic lumbar pain h/o Spondylolysis HTN chronic systolic CHF GERD HLD h/o DVT depression gout s/p lap band h/o ongoing lower back pain for several years, worse in last 6 months; severe in last month bed bound at home due to pain over last few weeks was following with neurosurgeon outpatient, MRI ordered as outpatient Lumbar MRI (08/30): moderate-severe multilevel degerenative disc disease. Primary abnormalities involving the neural foramina as well as some right subarticular stenosis. Minimal central spinal stenosis felt not to be clinically significant. Bilateral neuroforaminal narrowing. CT noted edema of R quadriceps and adductor muscle compartments possible myositis, CRP elevated, however CPK normal empiric steroids started 08.[address] Johns patient reproted no significant change in pain - frequency and severity, has been waxing/waning but never resolved. 08/31 on my exam patient had mild tenderness, compared to severe tenderness the day before confirm home meds, restart as appropriate VTE: home eliquis Code: full Dispo: may need SNF Time Spent Managing Pts Care (In Minutes): 45
[2022-08-31 08:03] LABS: Specific Gravity 1.015 (1.005-1.030); Urine Bacteria <20 /HPF (<20); Urine Bilirubin NEGATIVE (Negative); Urine Blood 2+ (Negative); Urine Clarity Clear (Clear); Urine Color Light-Yellow (Yellow); Urine Glucose NEGATIVE (Negative); Urine Mucus 1+ /HPF (None Seen); Urine Protein NEGATIVE (Negative); Urine RBC 21-50 /HPF (None Seen); Urine Urobilinogen Normal (Normal); Urine White Blood Cell Casts 0-5 /LPF (None Seen)
[2022-08-31] MEDS: ASPIRIN 81 MG CHEWABLE TABLET PO SCH (08:34)
[2022-08-31] MEDS: APIXABAN 2.5 MG TABLET PO SCH ×2 (08:34→20:21)
[2022-08-31] MEDS: GABAPENTIN 300 MG CAP PO SCH ×4 (08:35→20:21)
[2022-08-31] MEDS: HYDROCODONE/APAP 10/325 TAB PO PRN ×3 (08:39→20:21)
[2022-08-31] MEDS ORDERED: NA CHLORIDE 0.9% 250 ML IV SCH (12:00)
--- NOTE | 2022-08-31 14:46 | RAD REPORT ---
EXAM DESCRIPTION: US - Renal Ultrasound-Complete - 08/31/2022 2:34 pm CLINICAL HISTORY: LAZARA Flank pain COMPARISON: Renal Ultrasound-Complete dated 05/10/2017 FINDINGS: Both kidneys are normal in size, shape and echotexture. The right kidney measures 11.4 x 4.7 x 4.2 cm. No hydronephrosis, focal mass or perinephric fluid. The left kidney measures 9.2 x 5.7 x 3.7 cm. No hydronephrosis, focal mass or perinephric fluid. The urinary bladder is incompletely distended without gross abnormality seen. IMPRESSION: Unremarkable renal sonogram.
[2022-08-31] MEDS ORDERED: POLYETHYL GLY 3350 17 GM/DOSE PO PRN (16:07)
[2022-08-31] MEDS ORDERED: MAGNESIUM HYDROXIDE 8% 30 ML PO PRN (16:07)
[2022-08-31] MEDS: METOPROLOL TAR 25 MG TAB PO SCH (17:00)
--- NOTE | 2022-08-31 17:44 | CON ---
Date of Consultation: 08/31/2022 Reason For Consultation: Elevated BUN and creatinine, fluid management. History Of Present Illness: This is a pleasant 77-year-old female with significant past medical history of congestive heart failure, nonischemic, with ejection fraction of 37%, GERD, DVT, osteoarthritis, on gabapentin and Advil every 8 hour 400. Patient was in her regular state of health according to the patient in the last few week, her scoliosis got worse. For that reason, she started taking Aleve 2 tablets every 8 hours. Her leg swelling started to increase and started having some shortness of breath. For that reason, reported to the hospital. Upon arrival to the hospital, found to be over volume and elevation in BUN and creatinine. For that reason, we have been consulted. The patient denied any recent IV contrast. Past Medical History: Include: 1. Congestive heart failure, ejection fraction of 37%. 2. DVT. 3. GERD. 4. Chronic edema. 5. AFib. 6. Hypertension. 7. Osteoarthritis. Home Medications: Include atorvastatin, folic acid, gabapentin, hydromorphone, losartan, hydrochlorothiazide, pantoprazole, KCl, Requip, Eliquis, Bumex 2 mg, duloxetine, spironolactone. Cefuroxime. Advil 400 every 8. Metoprolol. Past Surgical History: Include knee surgery, left ankle surgery. Family History: Positive for CAD, cancer, and hypertension. Social History: Denied smoking. Denied drinking. Denied drugs abuse. Review of Systems: Head and Neck: No red eye. No ear pain. GI: No nausea. No vomiting. : Decreased urine output. 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 Respiratory: Has shortness of breath. Cardiovascular: Has orthopnea. Has leg swelling. Endocrine: No polydipsia. Skin: No rash. Neuro: Has neuropathy. Has low back pain and weakness on the lower extremity. Musculoskeletal: Has lower extremity pain. Physical Examination: Vital Signs: When I saw the patient; blood pressure 135/63, pulse of 118, afebrile. Chest: Crackles, bilateral. Heart: S1, S2, systolic murmur, regular. Abdomen: Soft, nontender. Extremity: Erythema with venous stasis change, bilateral, +1 edema. Neurological: Alert, oriented x3. Nonfocal except weakness on the lower extremity. Laboratory Data: WBC 11.7, H and H 9.7/30.9, and platelets 399. Sodium 133, potassium 4.7, bicarb 29, BUN 67, creatinine 1.4, GFR of 37, calcium of 9. Albumin of 2.3, corrected calcium is 10.6. Urinalysis: Wbc of 20. Culture still pending. Current Medications: The patient on include aspirin, albuterol, metoprolol, gabapentin, hydromorphone, KCl. Assessment And Plan: 1. Acute kidney injury, multifactorial, secondary to poor perfusion acute tubular necrosis, secondary to over diuresis superimposed with nonsteroidal use, superimposed with ARB and hydrochlorothiazide, looked to me on the normal volume to the dry side supported with the finding on the chest x-ray and physical exam. I am going to go ahead and agree with holding the diuresis for the time being. Hold ARB and hydrochlorothiazide. Hold the spironolactone and we will send for basic workup with the presence of renal failure and anemia. We will send for serum protein electrophoresis to evaluate for any light chain disease and we will follow up. 2. Hypertension, currently blood pressure controlled. Patient had dehydration. I am going to hold all diuresis. Hold ARB. Continue beta- david. 3. Hyponatremia secondary to over diuresis superimposed with hydrochlorothiazide. I am going to go ahead and discontinue hydrochlorothiazide, discontinue diuresis. I will start the patient on gentle hydration and we will follow up. 4. Hypokalemia, status post supplement, resolved. 5. Urinary tract infection. Continue current antibiotic. We will follow up culture. 6. Congestive heart failure with ejection fraction of 37%, currently normal volume. Hold diuresis with the presence of acute kidney injury. 7. Arthritis. Continue gabapentin. Hold any nonsteroidal use. Thank you, Dr. Landeros, for allowing us to participate in the care of your patient. time spend exam the patient face to face reviewing data lab and radiology , placing order , discussing with the patient and nursing staff , discussing with hospitalist >65 min ENRIQUE/EDWARD Voice ID: [id number] Report ID: [id number] [id number]
[2022-08-31] MEDS: ROPINIROLE HCL 1 MG TAB PO SCH (20:21)
[2022-08-31 21:37] LABS: UR PROTEIN 14.7 mg/dL (<11.9); Urine Protein/Creatinine Ratio 0.32 ratio (<0.15)
[2022-08-31 22:07] LABS: UR SODIUM < 15 mmol/L (27-287)
[2022-09-01] MEDS: METHYLPREDNISOLONE 125 MG INJ IV SCH ×2 (03:07→08:21)
[2022-09-01] MEDS: HYDROMORPHONE HCL 1 MG/ML INJ IV PRN ×4 (03:12→21:47)
[2022-09-01 03:29] LABS: RBC Red Blood Cell Count 3.46 M/uL (3.86-4.86)
[2022-09-01 04:04] LABS: Albumin 2.2 g/dL (3.4-5.0); BUN Blood Urea Nitrogen 66 mg/dL (7-18); Bicarbonate 29 mmol/L (21-32); Glomerular Filtration Rate 58 ml/min (=/>90); Glucose Level 219 mg/dL (74-106); Phosphorus 2.8 mg/dL (2.5-4.9); Potassium 4.5 mmol/L (3.5-5.1); Sodium Level 133 mmol/L (136-145); Transferrin 177 mg/dL (200-360); Uric Acid 8.8 mg/dL (2.6-6.0)
[2022-09-01 04:31] LABS: Creatine Phosphokinase < 12 U/L (26-192)
[2022-09-01] MEDS: METOPROLOL TAR 25 MG TAB PO SCH ×2 (06:40→17:00)
[2022-09-01] MEDS: ROPINIROLE HCL 1 MG TAB PO SCH ×3 (08:20→21:47)
[2022-09-01] MEDS: APIXABAN 2.5 MG TABLET PO SCH ×2 (08:20→21:47)
[2022-09-01] MEDS: GABAPENTIN 300 MG CAP PO SCH ×4 (08:20→21:46)
[2022-09-01] MEDS: ASPIRIN 81 MG CHEWABLE TABLET PO SCH (08:21)
--- NOTE | 2022-09-01 09:25 | P.PN ---
Date of Service: 09/01/22 Subjective: she feels as though no significant change in pain - severe R leg pain, most severe at knee, secondary at mid thign R Knee/leg pain - Unable to straighten or lift R leg no new symptoms ROS: 10 point ROS as noted above, otherwise negative Physical exam GEN: Alert, oriented, obese, NAD at rest HEENT: Normal conjunctiva, sclera anicteric CV: Regular rate and rhythm, trace b/l pedal edema Pulm: non labored respirations, clear bilaterally ABD: Soft, nontender, nondistended MSK: moderate tenderness to palpation of R thigh and knee; significant pain (of knee and thigh) with passive ROM of R knee and hip Integumentary: No rash of RLE Neuro: Normal speech, normal affect Problem List Severe RLE pain, secondary to femur fracture acute on chronic lumbar pain; h/o Spondylolysis HTN chronic systolic CHF GERD HLD h/o DVT depression gout s/p lap band initially unclear, felt secondary to worsening of chronic lumbar pain as this has been progressive over last several months initial workup noted edema of R quadriceps and adductor muscle compartments didn't match up with history of lumbar spondylolysis no fracture noted on CT abd/pelvis; started empiric steroids . for possibly myositis, CRP elevated, however CPK normal initially had some relief 09/01, CT of knee obtained - noted femur fracture pt denied any falls, no trauma has been minimally ambulatory for several weeks ortho consulted was following with neurosurgeon outpatient, MRI ordered as outpatient Lumbar MRI (08/30): moderate-severe multilevel degerenative disc disease. Primary abnormalities involving the neural foramina as well as some right subarticular stenosis. Minimal central spinal stenosis felt not to be clinically significant. Bilateral neuroforaminal narrowing. left VM x2 for Dr. Johns - no contact yet VTE: home eliquis Code: full Dispo: may need SNF vs rehab Time Spent Managing Pts Care (In Minutes): 45
[2022-09-01] MEDS: HYDROCODONE/APAP 10/325 TAB PO PRN ×2 (11:05→17:00)
--- NOTE | 2022-09-01 13:25 | PN ---
Date of Progress Note: 09/01/2022 Subjective: The patient was admitted with lower extremity weakness, congestive heart failure with exacerbation. The patient had acute kidney injury secondary to prerenal, superimposed with nonsteroidal use. Obstructive uropathy has been ruled out. Physical Examination: Vital Signs: Blood pressure of 123/74. Chest: Clear to auscultation. Heart: S1, S2. Regular. Abdomen: Soft, nontender. Extremity: Trace edema. Neurologic: Alert. No focality. Laboratory Data: Hemoglobin 9.7. Sodium 133, potassium 4.5, bicarb 29, BUN 66, creatinine 1, GFR of 58, calcium 9.4, phosphorus 2.8. Iron saturation 11.3. Serum protein electrophoresis is still pending. PTH 279, cortisol of 233. Assessment And Plan: 1. Acute kidney injury, no obstruction with normal size kidney 11.4/9.2, secondary to cardiorenal, superimposed with nonsteroidal use, complicated with hypokalemia, hyponatremia, and toxic ATN secondary to urinary tract infection, recovered, back to baseline. I am going to continue current treatment and we will monitor the patient closely. 2. Hypertension, controlled, optimal. Keep holding any JACKLYN inhibitor or ARB for the time being. 3. Hypokalemia, status post supplement, resolved. 4. Hyponatremia, dilutional, resolved. 5. Urinary tract infection. We will follow up with primary. 6. Hyperparathyroidism. The patient is going to need repeated PTH as outpatient, then we will decide about any treatment. Currently, calcium and phosphorus on the goal. time spend exam the patient face to face reviewing data lab and radiology , placing order , discussing with the patient and nursing staff , discussing with hospitalist >35 min ANGELICA Voice ID: [id number] Report ID: [id number] ROSS
--- NOTE | 2022-09-01 15:42 | RAD REPORT ---
EXAM DESCRIPTION: CT - Knee Right Wo Cont - 09/01/2022 2:16 pm CLINICAL HISTORY: Severe tenderness of right knee and thigh COMPARISON: None. TECHNIQUE: Axial CT images of the right knee, performed without IV contrast. Sagittal and coronal re construction images were generated and reviewed. All CT scans are performed using dose optimization technique as appropriate and may include automated exposure control or mA/KV adjustment according to patient size. FINDINGS: Displaced midshaft right femur fracture, with posterior apex angulation, angle measuring 2 4 degrees. There is anterior offset of the distal fragment, by approximately 1.6 centimeter. Moderate callus formation, and mildly comminuted fragments in the vicinity of the fracture. Along the anterio r fracture line and extending slightly superiorly, is a poorly defined centrally hypoattenuating isauro ection, which could relate to a component of hematoma versus noncalcified callus. Otherwise mild facundo atous changes present within the quadriceps muscle compartment. Right total knee arthroplasty hardware in place, without evidence of hardware complications. Moderate subcutaneous soft tissue edema along the medial thigh. No discrete evidence of other fluid c ollections within limits of noncontrast evaluation. IMPRESSION: Displaced, mildly comminuted, and posteriorly angulated midshaft femoral fracture. Ill-defined hypoattenuating collection along the anterior fracture line, could relate to a component of hematoma versus noncalcified callus. Uncomplicated right total knee arthroplasty.
--- NOTE | 2022-09-01 16:05 | RAD REPORT ---
EXAM DESCRIPTION: CT - Hip Right Wo Con - 09/01/2022 2:16 pm CLINICAL HISTORY: Pain. Severe tenderness of the right knee and thigh. COMPARISON: Right knee CT of the same day. TECHNIQUE: Thin cut axial CT images of the right hip, acquired without IV contrast. Sagittal and cor onal reconstruction images were generated and reviewed. Exam utilizes a protocol to evaluate entire c ourse of the aorta. All CT scans are performed using dose optimization technique as appropriate and may include automated exposure control or mA/KV adjustment according to patient size. FINDINGS: Midshaft right humerus fracture, described in detail on the right knee CT of the same date . Right femoral head/neck, and the included pelvic bones are unremarkable. Moderate edematous changes seen in the quadriceps muscle compartment, as well as the upper hamstring compartment. Moderate fatty infiltration noted in the abductors, gluteus joan, and medius. Moderate skin thickening and subcutaneous edema along the medial thigh. Evaluation of the pelvic structures reveals no suspicious findings. A Obando catheter is present in th e bladder. IMPRESSION: Midshaft right humerus fracture, described in detail on the right knee CT of same day. Edematous changes within the anteromedial muscle compartments, with skin thickening and edema along t he medial thigh.
[2022-09-01] MEDS ORDERED: METHYLPREDNISOLONE 125 MG INJ IV SCH (17:00)
--- NOTE | 2022-09-01 17:53 | P.CNS ---
Date of Consult: 09/01/22 Reason for Consult: right femur facture Chief Complaint: Back pain History of Present Illness: patient originally admitted to the hospital for radicular back pain. She has chronic pain managed by dr Ackerman. She has norco 10/325 and Dilaudid. she has had limided mobility for 6 months only walking 5-10 feet with a walker. since she has not been able to walk. There was no fall or traumatic injury, she has not had cancer or unexpl;ained weight loss she has bilateral total knee and shoulder replacements by Dr. Ajith Atkinson, the right knee was replaced 3-4 years ago, she has no hip prosthesis. h/o ongoing lower back pain for several years, worse in last 6 months; severe in last month, bed bound at home due to pain over last few weeks was following with neurosurgeon outpatient, MRI ordered as outpatient Lumbar MRI (08/30): moderate- severe multilevel degerenative disc disease. Primary abnormalities involving the neural foramina as well as some right subarticular stenosis. Minimal central spinal stenosis felt not to be clinically significant. Bilateral neuroforaminal narrowing. followed by dr Johns Allergies No Known Allergies Allergy (Verified 08/29/22 21:03) Home Medications: Atorvastatin Calcium 20 mg PO DAILY 05/10/17 Folic Acid 1 mg PO BID 05/10/17 Gabapentin 600 mg PO QID 05/10/17 Hydromorphone [Dilaudid*] 2 mg PO Q8H PRN 05/10/17 Losartan/Hydrochlorothiazide [Losartan-Hctz 50-12.5 mg Tab] 1 each PO DAILY 05/10/17 Pantoprazole [Protonix Tab*] 40 mg PO DAILY 05/10/17 Potassium Chloride 20 meq PO BID 05/10/17 Ropinirole HCl [Requip*] 1 mg PO 6XD 05/10/17 Trazodone HCl 150 mg PO BEDTIME 05/10/17 Albuterol Inhaler [Ventolin Inhaler*] 8 gm IH PRN PRN 08/20/20 Allopurinol 300 mg PO DAILY 08/20/20 Apixaban [Eliquis *] 2.5 mg PO BID 08/20/20 Bumetanide 2 mg PO BID 08/20/20 Cyanocobalamin (Vitamin B-12) [Vitamin B-12] 1 cap PO DAILY 08/20/20 Duloxetine HCl 60 mg PO BID 08/20/20 Fluticasone/Vilanterol [Breo Ellipta 200-25 Mcg INH] 1 each IH DAILY 08/20/20 Spironolactone 25 mg PO DAILY 08/20/20 Ubidecarenone [Co Q-10] 400 mg PO DAILY 08/20/20 Hydrocodone/Acetaminophen [Hydrocodone-Acetamin 7.5-325] 5 mg PO Q6HR PRN 08/19/22 Cefuroxime Axetil [Cefuroxime] 500 mg PO BID 7 Days #14 tab 08/20/22 Metoprolol Tartrate [Lopressor*] 25 mg PO BID 6AM 6PM 30 Days #60 tab 08/20/22 - Past Medical/Surgical History Diabetic: No -: CHF, Chronic pain, Depression, DVT left leg -: GERD, High Cholesterol, Hyperlipidemia, -: Hypertension, Restless leg syndrome -: Psoriasis -: Osteoarthritis -: Left ankle surgery -: Right knee surgery Psychosocial/ Personal History: Patient lives at home with her , uses wheelchair - Family History Mother Medical History: Heart disease Father Medical History: Cancer - Social History Smoking Status: Unknown if ever smoked Alcohol use: No CD- Drugs: No Caffeine use: Yes Place of Residence: Home Review of Systems 10-point ROS is otherwise unremarkable Physical Examination Temp Pulse Resp BP Pulse Ox 97.0 F 102 H 16 114/66 95 09/01/22 16:00 09/01/22 17:00 09/01/22 16:00 09/01/22 17:00 09/01/22 16:00 General: Oriented x3 HEENT: Normocephalic Neck: Supple Musculoskeletal: Swelling, Tenderness (right leg turned out guarding the distal theigh, sensation intact, can moove toes and foot) Integumentary: No breakdown CT noted edema of R quadriceps and adductor muscle compartments possible myositis, CRP elevated, however CPK normal empiric steroids started 2.28 Imagings Data: EXAM DESCRIPTION: CT - Hip Right Wo Con - 09/01/2022 2:16 pm CLINICAL HISTORY: Pain. Severe tenderness of the right knee and thigh. COMPARISON: Right knee CT of the same day. TECHNIQUE: Thin cut axial CT images of the right hip, acquired without IV contrast. Sagittal and coronal reconstruction images were generated and reviewed. Exam utilizes a protocol to evaluate entire course of the aorta. All CT scans are performed using dose optimization technique as appropriate and may include automated exposure control or mA/KV adjustment according to patient size. FINDINGS: Midshaft right humerus fracture, described in detail on the right knee CT of the same date. Right femoral head/neck, and the included pelvic bones are unremarkable. Moderate edematous changes seen in the quadriceps muscle compartment, as well as the upper hamstring compartment. Moderate fatty infiltration noted in the abductors, gluteus joan, and medius. Moderate skin thickening and subcutaneous edema along the medial thigh. Evaluation of the pelvic structures reveals no suspicious findings. A Obando catheter is present in the bladder. IMPRESSION: Midshaft right humerus fracture, described in detail on the right knee CT of same day. Edematous changes within the anteromedial muscle compartments, with skin thickening and edema along the medial thigh. Dictated By: Yayo Delong MD 09/01/22 160 RADIOLOGY SERVICES REPORT CC: Jorge Landeros MD; Lizandro Roe MD; Tyree Pacheco MELINDA EVANS / Report: [id number] Radiology Services Report Page 1 of 1 Name: RUTHY BEST CHINTAN Acct Number: [id number] : 1945 Age: 77 Sex: F Unit Number: [id number] Ord Phys: Lizandro Roe MD Prim Care Dr: Tyree Pacheco DO Status: ADM IN Exam Date: 09/01/22 Reason for Exam: severe tenderness of R knee and thigh Report Status: Signed EXAM DESCRIPTION: CT - Knee Right Wo Cont - 09/01/2022 2:16 pm CLINICAL HISTORY: Severe tenderness of right knee and thigh COMPARISON: None. TECHNIQUE: Axial CT images of the right knee, performed without IV contrast. Sagittal and coronal reconstruction images were generated and reviewed. All CT scans are performed using dose optimization technique as appropriate and may include automated exposure control or mA/KV adjustment according to patient size. FINDINGS: Displaced midshaft right femur fracture, with posterior apex angulation, angle measuring 24 degrees. There is anterior offset of the distal fragment, by approximately 1.6 centimeter. Moderate callus formation, and mildly comminuted fragments in the vicinity of the fracture. Along the anterior fracture line and extending slightly superiorly, is a poorly defined centrally hypoattenuating collection, which could relate to a component of hematoma versus noncalcified callus. Otherwise mild edematous changes present within the quadriceps muscle compartment. Right total knee arthroplasty hardware in place, without evidence of hardware complications. Moderate subcutaneous soft tissue edema along the medial thigh. No discrete evidence of other fluid collections within limits of noncontrast evaluation. IMPRESSION: Displaced, mildly comminuted, and posteriorly angulated midshaft femoral fracture. Ill-defined hypoattenuating collection along the anterior fracture line, could relate to a component of hematoma versus noncalcified callus. Uncomplicated right total knee arthroplasty. Dictated By: Yayo Delong MD 09/01/22 1542 Signed By: Yayo Delong MD 09/01/22 154 - Problems (1) Femur fracture, right Onset Date: ~07/09/22 Current Visit: Yes Status: Chronic Plan: schedule for IM rodding right femur, dr Connor counsled the patient and family on risks and benifits Qualifiers: Encounter type: initial encounter Femur location: shaft Fracture type: closed Fracture morphology: transverse Fracture alignment: displaced Qualified Code(s): S72.321A - Displaced transverse fracture of shaft of right femur, initial encounter for closed fracture
[2022-09-02] MEDS: HYDROCODONE/APAP 10/325 TAB PO PRN ×3 (01:58→23:16)
[2022-09-02] MEDS: HYDROMORPHONE HCL 1 MG/ML INJ IV PRN (03:18)
[2022-09-02] MEDS: METOPROLOL TAR 25 MG TAB PO SCH ×2 (05:39→17:25)
[2022-09-02 06:28] LABS: Absolute Lymphocytes (CBC) 0.7 K/uL (0.7-4.9); Hematocrit 32.9 % (36.0-45.0); Lymphocytes % 7.3 % (15.3-44.8); MCV 87.8 fL (80-100); MPV 6.4 fL (7.6-11.3); RBC Red Blood Cell Count 3.75 M/uL (3.86-4.86)
[2022-09-02 06:42] LABS: Albumin 2.4 g/dL (3.4-5.0); C-Reactive Protein 11.5 mg/L (<3.00); Phosphorus 3.4 mg/dL (2.5-4.9); Potassium 5.2 mmol/L (3.5-5.1)
--- NOTE | 2022-09-02 07:08 | P.PN ---
Date of Service: 09/02/22 Subjective: no acute events overnight pain tolerable at times with no movement severe pain with movement of any kind involving right leg ROS: 10 point ROS as noted above, otherwise negative Physical exam GEN: Alert, oriented, NAD at rest HEENT: Normal conjunctiva, sclera anicteric CV: Regular rate and rhythm, trace b/l pedal edema Pulm: non labored respirations, clear bilaterally ABD: Soft, nontender, nondistended MSK: moderate tenderness to palpation of R thigh and knee; significant pain (of knee and thigh) with passive ROM (~1 inch) of R knee and hip Integumentary: No rash of RLE Neuro: Normal speech, normal affect Problem List Severe RLE pain, secondary to femur fracture acute on chronic lumbar pain; h/o Spondylolysis HTN chronic systolic CHF GERD HLD h/o DVT depression gout s/p lap band initially unclear, felt secondary to worsening of chronic lumbar pain as this has been progressive over last several months initial workup noted edema of R quadriceps and adductor muscle compartments didn't match up with history of lumbar spondylolysis no fracture noted on CT abd/pelvis; started empiric steroids 08.30 for possibly myositis, CRP elevated, however CPK normal initially had some relief 09/01, CT of knee obtained - noted femur fracture pt denied any falls, no trauma has been minimally ambulatory for several weeks ortho consulted - Dr. Villegas has planned surgery 09/03 for femur fracture was following with neurosurgeon outpatient, MRI ordered as outpatient Lumbar MRI (08/30): moderate-severe multilevel degerenative disc disease. Primary abnormalities involving the neural foramina as well as some right subarticular stenosis. Minimal central spinal stenosis felt not to be clinically significant. Bilateral neuroforaminal narrowing. left VM x2 for Dr. Johns - no contact yet suppository ordered - check for BM next few hours Possible Enema if Suppository doesn't help VTE: home eliquis held for surgery Code: full Dispo: may need SNF vs rehab
--- NOTE | 2022-09-02 07:38 | P.PN ---
Subjective Date of Service: 09/02/22 Chief Complaint: Back pain femur fracture Subjective: Other (discussed optipns willneed to retrograderod her femur agreed with plan) Physical Examination - Vital Signs Temperature: 97.7 F Blood Pressure: 122/68 Pulse: 67 Respirations: 18 Pulse Ox (%): 92 Assessment And Plan Physician Review: Patient Assessed, Agree with Above Assessment and Plan
[2022-09-02] MEDS ORDERED: BISACODYL 10 MG RECTAL SUPP PR ONE (09:34)
[2022-09-02] MEDS: GABAPENTIN 300 MG CAP PO SCH ×4 (09:53→20:25)
[2022-09-02] MEDS: ROPINIROLE HCL 1 MG TAB PO SCH ×3 (09:53→20:25)
[2022-09-02] MEDS: ASPIRIN 81 MG CHEWABLE TABLET PO SCH (09:53)
[2022-09-02 17:16] LABS: Potassium 4.7 mmol/L (3.5-5.1)
[2022-09-02] MEDS ORDERED: FLEET ENEMA ADULT PR ONE (20:23)
--- NOTE | 2022-09-02 21:56 | PN ---
Date of Progress Note: 09/02/2022 Chief Complaint: Acute kidney injury, congestive heart failure with exacerbation. Subjective: The patient has acute kidney injury secondary to prerenal azotemia, superimposed with no nsteroidal antiinflammatory medication effect. Obstructive uropathy was ruled out. Review of Systems: Denies fever or chills. Physical Examination: Lungs: Clear to auscultation bilaterally. Heart: S1, S2. Abdomen: Soft, benign. Extremities: Edema present. Impression And Plan: 1.Acute kidney injury. No evidence of obstructive uropathy. Right kidney is 9.2 cm in length and l eft 11 cm in length secondary to cardiorenal syndrome and nonsteroidal antiinflammatory medication. 2.Hyponatremia due to acute kidney injury. The patient has acute tubular necrosis. We will continu e to monitor electrolytes. Avoid nonsteroidal antiinflammatory medication. 3.Hypertension. JACKLYN inhibitor is on hold. 4.Hypokalemia. Treatment with potassium supplementation as needed. 5.Hyponatremia, dilutional and resolved. Avoid excessive p.o. fluid intake. 6.Urinary tract infection. Continue antibiotics. 7.Hyperparathyroidism. Plan is to repeat intact PTH. Monitor calcium and phosphorus level. Continue 25-hydroxy vitamin D. Monitor. Continue vitamin D. MIKEY/JUANL Voice ID: [id number] Report ID: [id number]
[2022-09-03 03:10] LABS: Protime INR 1.31
[2022-09-03 03:25] LABS: Albumin 2.2 g/dL (3.4-5.0); Phosphorus 7.7 mg/dL (2.5-4.9); Potassium 4.5 mmol/L (3.5-5.1)
[2022-09-03] MEDS: METOPROLOL TAR 25 MG TAB PO SCH ×2 (06:00→17:08)
--- NOTE | 2022-09-03 07:07 | P.PN ---
Date of Service: 09/03/22 Subjective: no acute events overnight Surgery performed this morning ROS: 10 point ROS as noted above, otherwise negative Physical exam GEN: Alert, oriented, NAD at rest HEENT: Normal conjunctiva, sclera anicteric CV: Regular rate and rhythm, trace b/l pedal edema Pulm: non labored respirations, clear bilaterally, on 2L NC ABD: Soft, nontender, nondistended MSK: RLE: surgical dressing in place Neuro: Normal speech, normal affect Problem List Severe RLE pain, secondary to femur fracture, suspect pathologic etiology acute on chronic lumbar pain; h/o spondylosis HTN chronic systolic CHF GERD HLD h/o DVT depression gout s/p lap band Morbid obesity initially unclear, felt secondary to worsening of chronic lumbar pain as this has been progressive over last several months was following with neurosurgeon outpatient, MRI ordered as outpatient Lumbar MRI (08/30): moderate-severe multilevel degenerative disc disease. Primary abnormalities involving the neural foramina as well as some right subar ticular stenosis. Minimal central spinal stenosis felt not to be clinically significant. Bilateral neuroforaminal narrowing. left VM x2 for Dr. Johns - no contact yet initial workup noted edema of R quadriceps and adductor muscle compartments didn't match up with history of lumbar spondylolysis no fracture noted on CT abd/pelvis; started empiric steroids 08.30 for possible myositis, CRP elevated, however CPK normal initially had some relief, then worsened 09/01, CT of R knee - noted femur fracture pt denied any falls, no trauma has been minimally ambulatory for several weeks Possibly been on steroids for weeks or months ortho consulted - Dr. Villegas performed retrograde intramedullary rodding, and biopsy of femur Given the location and no history from patient or family of any significant trauma, concern for pathologic fracture Dr. Villegas sent biopsy of femur to pathology Initial CT on admission noted 2 small lucent lesions along the right iliac crest, indeterminate, with differential considerations including benign etiologies such as bone cysts, as well as metastatic disease. Constipation, on 09/02, patient reported no BM in several days but was passing flatus, continue stool softener, laxative as needed VTE: Home Eliquis, okay to resume 09/03 evening per Ortho Code: full Dispo: SNF vs rehab PT consult
[2022-09-03] MEDS ORDERED: Ringers Lactate 1,000 ML IV ONE ×2 (07:44→11:01)
[2022-09-03] MEDS ORDERED: CEFAZOLIN SODIUM 1 GM/VIAL ONE (08:02)
[2022-09-03] MEDS ORDERED: TRANEXAMIC ACID 1,000 MG/10 ML VIAL IV ONE (08:03)
[2022-09-03] MEDS ORDERED: SUCCINYLCHOLINE 20 MG/ML (10 ML) IV ONE (08:07)
[2022-09-03] MEDS ORDERED: EPINEPHRINE/PF 1 MG/ML AMP ONE (08:09)
[2022-09-03] MEDS ORDERED: LIDOCAINE 2% MPF 5 ML VIAL ONE (08:09)
[2022-09-03] MEDS ORDERED: FENTANYL CITR 100 MCG/2 ML ONE (08:13)
[2022-09-03] MEDS ORDERED: propofoL 200 MG/20 ML VIAL IV ONE (08:13)
[2022-09-03] MEDS ORDERED: ROCURONIUM 50 MG/5 ML VIAL IV ONE (08:13)
[2022-09-03] MEDS: GABAPENTIN 300 MG CAP PO SCH ×4 (09:00→21:49)
[2022-09-03] MEDS: ROPINIROLE HCL 1 MG TAB PO SCH ×3 (09:00→21:49)
[2022-09-03] MEDS ORDERED: ONDANSETRON 4 MG/2 ML VIAL ONE (10:07)
--- NOTE | 2022-09-03 10:24 | RAD REPORT ---
EXAM DESCRIPTION: RAD - Fluoroscopy <1 Hour - 09/03/2022 10:16 am CLINICAL HISTORY: RT DISTAL FEMUR RODDING COMPARISON: None available. FINDINGS: Six Images were sent to PACS, documenting needle positions during a right femoral internal fixation procedure. No radiologist was available for the procedure, nor will any image interpretatio n he provided. Please refer to the procedural report for additional details. Fluoroscopy time: 4.4 Minutes. IMPRESSION: Documentation of fluoroscopy utilization as above.
[2022-09-03] MEDS ORDERED: dilTIAZem HCL 25 MG/5 ML VIAL IV ONE (10:45)
[2022-09-03] MEDS: MORPHINE 4 MG/ML SYR ONE ×6 (10:50→11:10)
--- NOTE | 2022-09-03 10:52 | PN ---
Date of Progress Note: 09/03/2022 Subjective: The patient was admitted with lower extremity pain, low back pain, acute kidney injury that was multifactorial secondary to poor perfusion, superimposed with nonsteroidal use. The patient found to have a femoral fracture. The patient taken for surgery. Physical Examination: Vital Signs: Blood pressure 109/57, afebrile. Chest: Clear to auscultation. Heart: S1, S2 regular. Abdomen: Soft, nontender. Extremities: No edema. Laboratory Data: Hemoglobin 10.5. Sodium 135, potassium 4.5, bicarb 31, BUN 75, creatinine 0.8. Calcium 8.9 phosphorus 7.7, albumin 2.2, corrected calcium 10.5. Current Medications: The patient on include Tylenol, gabapentin, Requip, Zofran, bisacodyl enema, hydrocodone. Assessment And Plan: 1. Acute kidney injury multifactorial secondary to nonsteroidal use, prerenal. Continue to recover back to baseline. We will monitor. 2. Primary hyperparathyroidism with elevation in the calcium and hyperphosphatemia. I am going to go ahead and repeat PTH for confirmation, and we will follow up in the mean time. The patient will be considered to start on Sensipar, and we will follow up. 3. Hypercalcemia, marginal. We will hold on any supplement for the time being, mostly secondary to hyperparathyroidism. 4. Hyponatremia, resolved. 5. Hypokalemia, status post supplement, resolved. 6. Femoral fracture as by primary. 7. Urinary tract infection. No treatment for the time being. We will follow up with the primary. time spend exam the patient face to face reviewing data lab and radiology , placing order , discussing with the patient and nursing staff , discussing with hospitalist >35 min ANGELICA Voice ID: [id number] Report ID: [id number] ROSS
[2022-09-03] MEDS: NACHLORIDE 0.45% 1,000 ML IV SCH ×2 (11:00→21:58)
--- NOTE | 2022-09-03 11:32 | OP ---
Surgeon: Tereso Villegas MD Copper Miner: Lisa. Preoperative Diagnosis: Right femur fracture above a distant total knee. Postoperative Diagnosis: Right femur fracture above a distant total knee. Procedures Performed: 1.Retrograde intramedullary rodding above total knee. 2.Biopsy of lesion, midshaft femur. Complications: None. Disposition: To recovery room, stable. Operative Report In Detail: Patient was taken to the operative suite, placed in supine position, ind uced anesthesia. Knee was prepped and draped in usual sterile fashion. Access through a previously midline skin incision, median parapatellar arthrotomy. This was a Sigma knee, could accept a maximum of 11 mm diameter nail. A 10.5 mm nail which was measured at 30 cm was deemed appropriate. It was passed in distally, interlocked with 4 diverging screws. A set screw was then placed. It was noted that after straightening the knee out, there was some distant callus formation that there was a lesio n within the midshaft of the femur that was concerning for pathologic fracture. Prior to placement o f the nail, reamer and curettes were inserted within the medullary canal, and attempt to regain some of the tissue was performed. There was a moderate bleeding that abated after passage through this le eliana. Utilizing perfect northway technique, the proximal interlocking screw was placed in the non-marvin fernandez spot. Patient tolerated the procedure well. Layered closures had been performed. She should be in the rec overy room shortly. DEB/EDWARD Voice ID: [id number] Report ID: [id number]
--- NOTE | 2022-09-03 11:46 | RAD REPORT ---
EXAM DESCRIPTION: RAD - Hip Right 2 View - 09/03/2022 11:07 am CLINICAL HISTORY: Status post right femoral katherin and nail l distal approach COMPARISON: CT right knee 09/01/2022. FINDINGS: AP and frog-leg views of the right hip were obtained. Known midshaft femoral fracture with adjacent callus, improved alignment following internal fixation via intramedullary femoral rodding, with transfixing screws. This is seen on the lateral view only. N o other acute fractures. Right hip joint alignment is maintained with mild degenerative changes. No a cute or destructive bony process seen. IMPRESSION: None midshaft femoral fracture, improved in alignment following internal fixation via an intramedullary katherin.
--- NOTE | 2022-09-03 11:52 | RAD REPORT ---
EXAM DESCRIPTION: RAD - Femur Right - 09/03/2022 11:07 am CLINICAL HISTORY: Status post right femoral katherin/nail distal approach COMPARISON: CT knee 09/01/2022. FINDINGS: Two views of the right femur. Known midshaft right femoral fracture, improved in alignment since the prior CT, following intramedul emmanuel rodding. There is no dislocation. Stable callus. Partially visualized knee arthroplasty hardware in stable alignment. No acute or suspicious bony finding. IMPRESSION: Known midshaft right femoral fracture, improved in alignment since the prior CT, followi ng intramedullary rodding.
--- NOTE | 2022-09-03 11:53 | RAD REPORT ---
EXAM DESCRIPTION: RAD - Knee Right 2 View - 09/03/2022 11:07 am CLINICAL HISTORY: Status post right femoral katherin/nail distal approach COMPARISON: CT knee 09-22. FINDINGS: Two views of the right knee. Known midshaft right femoral fracture, improved in alignment since the prior CT, following intramedul emmanuel rodding. Stable callus. No joint effusion seen. No joint space narrowing. No soft tissue abnorma lity. Immediate postsurgical changes in the adjacent soft tissues, with skin madisyn. IMPRESSION: Known midshaft right femoral fracture, improved in alignment since the prior CT, followi ng intramedullary rodding.
[2022-09-03] MEDS: HYDROCODONE/APAP 10/325 TAB PO PRN ×2 (13:21→21:48)
[2022-09-03] MEDS: CEFAZOLIN 2 GM in NA CHLORIDE 0.9% 100 ML IVPB SCH (17:07)
[2022-09-03] MEDS: APIXABAN 2.5 MG TABLET PO SCH (21:49)
[2022-09-04] MEDS: HYDROMORPHONE HCL 1 MG/ML INJ IV PRN ×2 (01:02→21:09)
[2022-09-04] MEDS: CEFAZOLIN 2 GM in NA CHLORIDE 0.9% 100 ML IVPB SCH (01:15)
[2022-09-04 06:00] LABS: Absolute Lymphocytes (CBC) 0.8 K/uL (0.7-4.9); Hematocrit 25.8 % (36.0-45.0); Lymphocytes % 7.5 % (15.3-44.8); MPV 6.8 fL (7.6-11.3); RBC Red Blood Cell Count 2.97 M/uL (3.86-4.86)
[2022-09-04] MEDS: METOPROLOL TAR 25 MG TAB PO SCH ×2 (06:02→18:09)
[2022-09-04 06:13] LABS: Albumin 1.9 g/dL (3.4-5.0); Phosphorus 2.5 mg/dL (2.5-4.9); Potassium 3.9 mmol/L (3.5-5.1)
--- NOTE | 2022-09-04 06:59 | P.PN ---
Date of Service: 09/04/22 Subjective: overnight agitated / pulled IV, clothes off Able to sit up today with PT's help Feeling slightly better finally had BM overnight/this morning ROS: 10 point ROS as noted above, otherwise negative Physical exam GEN: Alert, oriented, NAD at rest HEENT: Normal conjunctiva, sclera anicteric CV: Regular rate and rhythm, trace b/l pedal edema Pulm: non labored respirations on 2L NC; slightly diminished at bases bilaterally ABD: Soft, nontender, nondistended MSK: RLE: Knee immobilizer in place Neuro: Normal speech, normal affect Problem List Severe RLE pain, secondary to femur fracture, suspect pathologic etiology acute on chronic lumbar pain; h/o spondylosis HTN chronic systolic CHF GERD HLD h/o DVT depression gout s/p lap band Morbid obesity primary hypeoparathoidism initially unclear, felt secondary to worsening of chronic lumbar pain as this has been progressive over last several months was following with neurosurgeon outpatient, MRI ordered as outpatient Lumbar MRI (08/30): moderate-severe multilevel degenerative disc disease. Primary abnormalities involving the neural foramina as well as some right subarticular stenosis. Minimal central spinal stenosis felt not to be clinically significant. Bilateral neuroforaminal narrowing. left VM x2 for Dr. Johns - no contact yet initial workup noted edema of R quadriceps and adductor muscle compartments - > didn't match up with history of lumbar spondylolysis no fracture noted on CT abd/pelvis; started empiric steroids 08.30 for possible myositis, CRP elevated, however CPK normal initially had some relief, then worsened 09/01, CT of R knee - noted femur fracture pt denied any falls, no trauma; has been minimally ambulatory for several weeks Possibly been on steroids for weeks or months ortho consulted - Dr. Villegas performed retrograde intramedullary rodding, and biopsy of femur Given the location and no history from patient or family of any significant trauma, concern for pathologic fracture Dr. Villegas sent biopsy of femur to pathology Immobilizer in place on R knee Initial CT on admission noted 2 small lucent lesions along the right iliac crest, indeterminate, with differential considerations including benign etiologies such as bone cysts, as well as metastatic disease. Constipation, on 09/02, patient reported no BM in several days but was passing flatus, continue stool softener, laxative as needed +BM 09/04 VTE: Home Eliquis, okay to resume 09/03 evening per Ortho Code: full Dispo: SNF vs rehab PT consulted anticipate SNF, patient was bedbound for quite some time, but already improving with pain and function
[2022-09-04] MEDS: POTASS/SODIUM PHOSPHATE 1 PKT POWD.PACK PO SCH ×3 (08:22→10:00)
[2022-09-04] MEDS: GABAPENTIN 300 MG CAP PO SCH ×4 (08:23→20:44)
[2022-09-04] MEDS: APIXABAN 2.5 MG TABLET PO SCH ×2 (08:23→20:45)
[2022-09-04] MEDS: DOCUSATE NA 100 MG CAP PO SCH ×2 (08:23→20:44)
[2022-09-04] MEDS: ROPINIROLE HCL 1 MG TAB PO SCH ×3 (08:23→20:45)
[2022-09-04] MEDS: DULOXETINE 30 MG CAP PO SCH ×2 (08:23→20:44)
[2022-09-04] MEDS: HYDROCODONE/APAP 10/325 TAB PO PRN ×2 (08:28→18:15)
[2022-09-04] MEDS ORDERED: POTASSIUM CL SA 10 MEQ TAB PO ONE (09:00)
[2022-09-04] MEDS: Fluticasone/Vilanterol [Breo Ellipta 200-25 Mcg Inh] Blst.W.Dev IH SCH (09:00)
--- NOTE | 2022-09-04 11:49 | P.PN ---
Subjective Date of Service: 09/04/22 Chief Complaint: Back pain femur fracture Subjective: New changes (fairly confused last pm hgb down to 8.2 pain much improved awaiting path) Physical Examination - Vital Signs Temperature: 97.2 F Blood Pressure: 108/66 Pulse: 106 Respirations: 18 Pulse Ox (%): 99 Assessment And Plan Physician Review: Patient Assessed, Agree with Above Assessment and Plan
[2022-09-04] MEDS ORDERED: FUROSEMIDE 20 MG/ 2ML VIAL IV ONE (12:00)
[2022-09-04 12:18] LABS: Albumin, (SPE) 2.5 g/dL (3.8-4.8); Alpha-1-Globulins 0.5 g/dL (0.2-0.3); Alpha-2-Globulins 1.3 g/dL (0.5-0.9); Gamma Globulins 0.6 g/dL (0.8-1.7); INTERPRETATION REPORT
--- NOTE | 2022-09-04 12:38 | PN ---
Date of Progress Note: 09/04/2022 Subjective: The patient was admitted with acute kidney injury, femoral fracture. Acute kidney injury was secondary to nonsteroidal use. Kidney function normalized. The patient is status post surgery for femoral fracture yesterday. Physical Examination: Vital Signs: Blood pressure 108/66, pulse of 106, afebrile. Chest: Clear to auscultation. Heart: S1, S2. Regular. Abdomen: Soft, nontender. Extremity: Plus edema. Neurologic: Alert. No focality. Laboratory Data: Hemoglobin 8.2. Sodium 132, potassium 3.9, bicarb 28, BUN 42, creatinine 0.6, calcium 7.6, phosphorus 2.5, magnesium of 2. Albumin 1.9. Corrected calcium is 9.2. Current Medications: The patient on include albuterol, diltiazem 25, metoprolol 25 b.i.d., gabapentin, Requip, Zofran, hydromorphone. Assessment And Plan: 1. Acute kidney injury secondary to prerenal, superimposed with nonsteroidal use, recovered, resolved. 2. Hypertension, controlled, optimal. Continue current treatment. 3. Edema, mostly secondary to stasis and surgery. I am going to give the patient a single dose of Lasix today. 4. Hyponatremia, dilutional. We will give Lasix. 5. Hypokalemia, status post supplement, resolved. 6. Femoral fracture, status post surgery. We will follow up with Ortho. time spend exam the patient face to face reviewing data lab and radiology , placing order , discussing with the patient and nursing staff , discussing with hospitalist >35 min ANGELICA Voice ID: [id number] Report ID: [id number] MTDMeera
[2022-09-05] MEDS: HYDROMORPHONE HCL 1 MG/ML INJ IV PRN (05:23)
[2022-09-05] MEDS: METOPROLOL TAR 25 MG TAB PO SCH ×2 (05:24→17:00)
[2022-09-05 06:15] LABS: Hematocrit 25.2 % (36.0-45.0); MCV 86.6 fL (80-100); MPV 6.7 fL (7.6-11.3); RBC Red Blood Cell Count 2.91 M/uL (3.86-4.86)
[2022-09-05 06:27] LABS: Albumin 1.9 g/dL (3.4-5.0); Phosphorus 2.7 mg/dL (2.5-4.9); Potassium 3.9 mmol/L (3.5-5.1)
--- NOTE | 2022-09-05 06:54 | P.PN ---
Date of Service: 09/05/22 Subjective: Feeling slightly better today Slept overnight no acute event overnight ROS: 10 point ROS as noted above, otherwise negative Physical exam GEN: Alert, oriented, NAD at rest HEENT: Normal conjunctiva, sclera anicteric CV: Regular rate and rhythm, trace b/l pedal edema Pulm: non labored respirations on 2L NC; slightly diminished at bases bilaterally ABD: Soft, nontender, nondistended MSK: RLE: Knee immobilizer in place, tender Neuro: Normal speech, normal affect Problem List Severe RLE pain, secondary to femur fracture, suspect pathologic etiology acute on chronic lumbar pain; h/o spondylosis HTN chronic systolic CHF GERD HLD h/o DVT depression gout s/p lap band Morbid obesity primary hypeoparathoidism initially unclear, felt secondary to worsening of chronic lumbar pain as this vaughn s been progressive over last several months was following with neurosurgeon outpatient, MRI ordered as outpatient Lumbar MRI (08/30): moderate-severe multilevel degenerative disc disease. Primary abnormalities involving the neural foramina as well as some right subarticular stenosis. Minimal central spinal stenosis felt not to be clinically significant. Bilateral neuroforaminal narrowing. left VM x2 for Dr. Johns - no contact yet initial workup noted edema of R quadriceps and adductor muscle compartments - > didn't match up with history of lumbar spondylolysis no fracture noted on CT abd/pelvis; started empiric steroids 08.30 for possible myositis, CRP elevated, however CPK normal initially had some relief, then worsened 09/01, CT of R knee - noted femur fracture pt denied any falls, no trauma; has been minimally ambulatory for several weeks Possibly been on steroids for weeks or months 09/05 Chest x-ray negative ortho consulted - Dr. Villegas performed retrograde intramedullary rodding, and biopsy of femur Given the location and no history from patient or family of any significant trauma, concern for pathologic fracture Dr. Villegas sent biopsy of femur to pathology Immobilizer in place on R knee Initial CT on admission noted 2 small lucent lesions along the right iliac crest, indeterminate, with differential considerations including benign etiologies such as bone cysts, as well as metastatic disease. Constipation, on 09/02, patient reported no BM in several days but was passing flatus, continue stool softener, laxative as needed +BM 09/04 VTE: Home Eliquis, okay to resume 3/4 evening per Ortho Code: full Dispo: SNF PT consulted anticipate SNF, patient was bedbound for quite some time, but already improving with pain and function
[2022-09-05] MEDS: APIXABAN 2.5 MG TABLET PO SCH ×2 (08:12→20:54)
[2022-09-05] MEDS: DULOXETINE 30 MG CAP PO SCH ×2 (08:12→20:55)
[2022-09-05] MEDS: DOCUSATE NA 100 MG CAP PO SCH ×2 (08:12→20:54)
[2022-09-05] MEDS: GABAPENTIN 300 MG CAP PO SCH ×4 (08:12→20:54)
[2022-09-05] MEDS: ROPINIROLE HCL 1 MG TAB PO SCH ×3 (08:12→20:54)
--- NOTE | 2022-09-05 08:49 | RAD REPORT ---
[facility] 8[facility]32 [facility] CLINICAL HISTORY: hypoxia, h/o chf COMPARISON: Chest Single View dated 08/29/2022; Chest Single View dated 08/18/2022; Chest Single View dated 10/02/2020; Chest Single View dated 05/09/2017 TECHNIQUE: Portable AP view of the chest. FINDINGS: The lungs are clear.Central interstitial prominence and enlargement of the central vascula r markings again noted. Stable mild cardiomegaly, within limits of AP magnification. No pneumothorax or effusion. The mediastinal contours are unchanged, with atherosclerotic calcifications at the aorti c arch. Bilateral reverse shoulder arthroplasties in place. IMPRESSION: Stable central congestive changes. No new focal consolidation.
[2022-09-05] MEDS: Fluticasone/Vilanterol [Breo Ellipta 200-25 Mcg Inh] Blst.W.Dev IH SCH (09:00)
[2022-09-05] MEDS: HYDROCODONE/APAP 10/325 TAB PO PRN ×2 (11:36→21:39)
[2022-09-05 13:56] LABS: Vitamin D 1,25-Dihydroxy Total 24 pg/mL (18-72); Vitamin D,1,25-OH2, D2 <8 pg/mL
--- NOTE | 2022-09-06 01:15 | PN ---
Date of Progress Note: 09/05/2022 Chief Complaint: Acute kidney injury. Subjective: The patient was admitted to the hospital because of lower extremity pain. She was found to have femoral fracture. She had acute kidney injury. She received IV fluids for volume control. Acute kidney injury was secondary to nonsteroidal antiinflammatory medication. The patient underwen t surgery for femoral fracture. Review of Systems: Denies pain. Physical Examination: Lungs: Normal respiratory effort Heart: S1, S2. Abdomen: Soft. Benign. Extremities: Dressing in place. Impression And Plan: 1.Acute kidney injury secondary to prerenal azotemia, associated with nonsteroidal antiinflammatory medication. Renal function has improved. Electrolytes are stable. 2.Hypertension. Control of blood pressure is optimal. Continue to monitor. 3.Edema, mostly secondary to lymphedema after surgery. Lasix was started. 4.Hyponatremia, dilutional. Continue Lasix. 5.Hypokalemia, resolved. The patient was treated with supplements. 6.Femoral fracture, status post surgery. Follow up by Ortho. MIKEY/EDWARD Voice ID: [id number] Report ID: [id number]
[2022-09-06 03:33] LABS: Hematocrit 24.3 % (36.0-45.0); MPV 6.9 fL (7.6-11.3); RBC Red Blood Cell Count 2.79 M/uL (3.86-4.86)
[2022-09-06] MEDS: METOPROLOL TAR 25 MG TAB PO SCH ×2 (06:35→17:08)
[2022-09-06] MEDS: DULOXETINE 30 MG CAP PO SCH ×2 (08:08→21:28)
[2022-09-06] MEDS: APIXABAN 2.5 MG TABLET PO SCH ×2 (08:09→21:29)
[2022-09-06] MEDS: DOCUSATE NA 100 MG CAP PO SCH ×2 (08:09→21:00)
[2022-09-06] MEDS: Fluticasone/Vilanterol [Breo Ellipta 200-25 Mcg Inh] Blst.W.Dev IH SCH (08:09)
[2022-09-06] MEDS: GABAPENTIN 300 MG CAP PO SCH ×4 (08:09→21:29)
[2022-09-06] MEDS: ROPINIROLE HCL 1 MG TAB PO SCH ×3 (08:09→21:29)
[2022-09-06] MEDS ORDERED: POTASSIUM CL SA 10 MEQ TAB PO ONE (09:00)
[2022-09-06] MEDS: HYDROCODONE/APAP 10/325 TAB PO PRN (09:24)
--- NOTE | 2022-09-06 13:34 | P.PN ---
Subjective Date of Service: 09/06/22 Chief Complaint: Back pain Patient complaining of generalized pain. She was able to sit at the edge of the bed with PT yesterday. No issues overnight. No recorded fever. Physical Examination - Vital Signs Temperature: 96.5 F Blood Pressure: 104/51 Pulse: 93 Respirations: 17 Pulse Ox (%): 97 Assessment And Plan - Plan Physical exam GEN: Alert, oriented, NAD, obese HEENT: Normal conjunctiva, sclera anicteric CV: Regular rate and rhythm, trace b/l pedal edema Pulm: non labored respirations on 2L NC; slightly diminished at bases bilaterally ABD: Soft, nontender, nondistended MSK: RLE: Knee immobilizer in place, tender Neuro: Normal speech, normal affect Problem List Severe RLE pain, secondary to femur fracture, suspect pathologic etiology acute on chronic lumbar pain; h/o spondylosis HTN chronic systolic CHF GERD HLD h/o DVT depression gout s/p lap band Morbid obesity primary hyperparathoidism Plan: Lumbar MRI (08/30): moderate-severe multilevel degenerative disc disease. Primary abnormalities involving the neural foramina as well as some right subarticular stenosis. Minimal central spinal stenosis felt not to be clinically significant. Bilateral neuroforaminal narrowing. initial workup noted edema of R quadriceps and adductor muscle compartments -> didn't match up with history of lumbar spondylolysis CT of R knee - noted femur fracture pt denied any falls, no trauma; has been minimally ambulatory for several weeks Chest x-ray negative ortho consulted - Dr. Villegas performed retrograde intramedullary rodding, and biopsy of femur Given the location and no history from patient or family of any significant trauma, concern for pathologic fracture Initial CT on admission noted 2 small lucent lesions along the right iliac crest, indeterminate, with differential considerations including benign etiologies such as bone cysts, as well as metastatic disease. Noted elevated intact PTH suggesting primary hyperparathyroidism Check SPEP/UPEP. Patient may need a parathyroid scan as outpatient. Continues to stool softness for constipation Continue PT and mobilization. VTE: Home Eliquis. Code: full Dispo: SNF
--- NOTE | 2022-09-07 01:32 | PN ---
Date of Progress Note: 09/06/2022 Chief Complaint: Acute kidney injury. Subjective: The patient was admitted to the hospital because of lower extremity pain. She was found to have femoral fracture. She had acute kidney injury. She received IV fluids for volume resuscita tion. Acute kidney injury was secondary to nonsteroidal anti-inflammatory medication. There was no indication of allergic interstitial nephritis. The patient underwent surgery for femoral fracture. Review of Systems: The patient is feeling better. Physical Examination: Lungs: Clear to auscultation bilaterally. Heart: S1, S2. Abdomen: Soft. Extremities: Dressing in place. Impression And Plan: 1.Acute kidney injury secondary to prerenal azotemia associated with nonsteroid anti-inflammatory me dication. Renal function has improved. Electrolytes are stable. Monitor electrolytes and urinalysi s to check for evidence of abnormal urinary sediment. 2.Hypertension. Continue blood pressure medication. 3.Edema, mostly secondary to lymphedema after surgery. Lasix was started. Monitor electrolytes. 4.Hyponatremia, mild, dilutional. Asymptomatic. Continue Lasix for volume control to prevent edema and fluid overload. 5.Hypokalemia, resolved. Continue treatment with supplement as needed. EB/MODL Voice ID: [id number] Report ID: [id number]
[2022-09-07] MEDS: METOPROLOL TAR 25 MG TAB PO SCH ×2 (05:58→17:48)
[2022-09-07 06:24] LABS: Potassium 4.1 mmol/L (3.5-5.1)
[2022-09-07] MEDS: DOCUSATE NA 100 MG CAP PO SCH ×2 (07:52→22:02)
[2022-09-07] MEDS: APIXABAN 2.5 MG TABLET PO SCH ×2 (07:52→22:02)
[2022-09-07] MEDS: ROPINIROLE HCL 1 MG TAB PO SCH ×3 (07:52→22:03)
[2022-09-07] MEDS: DULOXETINE 30 MG CAP PO SCH ×2 (07:52→22:02)
[2022-09-07] MEDS: GABAPENTIN 300 MG CAP PO SCH ×4 (07:52→22:03)
[2022-09-07] MEDS: Fluticasone/Vilanterol [Breo Ellipta 200-25 Mcg Inh] Blst.W.Dev IH SCH (07:53)
--- NOTE | 2022-09-07 14:38 | PN ---
Date of Progress Note: 09/07/2022 Subjective: The patient was admitted with femoral fracture, acute kidney injury secondary to nonsteroidal use and poor perfusion, ATN, superimposed with ARB use. The patient treated, kidney function has been normalized. The patient is status post femur surgery, recovered well. Physical Examination: Vital Signs: Blood pressure 94/51, pulse of 93, afebrile. Chest: Clear to auscultation. Heart: S1, S2. Regular. Abdomen: Soft, nontender. Extremities: Dressing on the right knee, trace edema. Venous stasis change, bilateral. Neurologic: Alert, oriented. No focality. Laboratory Data: Hemoglobin 7.8. Sodium 133, potassium 4.1, bicarb 31, BUN 33, creatinine 0.5, calcium 8.7. Assessment And Plan: 1. Acute kidney injury secondary to nonsteroidal use, superimposed with ARB use, recovered, resolved. 2. Hyponatremia, hypokalemia, depletional, recovered. I am going to go ahead and supplement the potassium. 3. Femoral fracture, status post surgery. We will follow up with primary. 4. Secondary hyperparathyroidism. Currently, I think it is possible she has primary hyperthyroidism. The patient has consistent elevation in PTH. I am going to go ahead and get ultrasound for the neck to localize parathyroid gland and we will consider sestamibi nuclear medicine and we will follow up. time spend exam the patient face to face reviewing data lab and radiology , placing order , discussing with the patient and nursing staff , discussing with hospitalist >35 min ANGELICA Voice ID: [id number] Report ID: [id number] ROSS
--- NOTE | 2022-09-07 15:33 | P.PN ---
Subjective Date of Service: 09/07/22 Chief Complaint: Back pain No issues overnight. She has been able to sit at the edge of the bed with PT. Physical Examination - Vital Signs Temperature: 97.2 F Blood Pressure: 102/50 Pulse: 118 Respirations: 16 Pulse Ox (%): 95 Assessment And Plan - Plan Physical exam GEN: Alert, oriented, NAD, obese HEENT: Normal conjunctiva, sclera anicteric CV: Regular rate and rhythm, trace b/l pedal edema Pulm: non labored respirations on 2L NC; slightly diminished at bases bilaterally ABD: Soft, nontender, nondistended MSK: RLE immobilized in Iván wrap. Neuro: Normal speech, normal affect Problem List Severe RLE pain, secondary to femur fracture, suspect pathologic etiology acute on chronic lumbar pain; h/o spondylosis HTN chronic systolic CHF GERD HLD h/o DVT depression gout s/p lap band Morbid obesity primary hyperparathoidism Plan: Lumbar MRI (08/30): moderate-severe multilevel degenerative disc disease. Primary abnormalities involving the neural foramina as well as some right subarticular stenosis. Minimal central spinal stenosis felt not to be clinically significant. Bilateral neuroforaminal narrowing. CT of R knee - noted femur fracture pt denied any falls, no trauma; has been minimally ambulatory for several weeks Chest x-ray negative Ortho Dr. Villegas performed retrograde intramedullary rodding, and biopsy of femur Given the location and no history from patient or family of any significant trauma, concern for pathologic fracture Initial CT on admission noted 2 small lucent lesions along the right iliac crest, indeterminate, with differential considerations including benign etiologies such as bone cysts, as well as metastatic disease. Noted elevated intact PTH suggesting primary hyperparathyroidism SPEP/UPEP ordered. Patient may need a parathyroid scan as outpatient. Continue PT and mobilization. VTE: Home Eliquis. Code: full Dispo: SNF
[2022-09-08 03:39] LABS: Absolute Lymphocytes (CBC) 1.2 K/uL (0.7-4.9); Hematocrit 24.7 % (36.0-45.0); Lymphocytes % 9.9 % (15.3-44.8); MCV 86.5 fL (80-100); MPV 6.9 fL (7.6-11.3); RBC Red Blood Cell Count 2.85 M/uL (3.86-4.86)
[2022-09-08 03:52] LABS: Potassium 4.1 mmol/L (3.5-5.1)
[2022-09-08] MEDS: METOPROLOL TAR 25 MG TAB PO SCH ×2 (06:00→18:00)
[2022-09-08] MEDS: Fluticasone/Vilanterol [Breo Ellipta 200-25 Mcg Inh] Blst.W.Dev IH SCH (09:00)
[2022-09-08] MEDS: DOCUSATE NA 100 MG CAP PO SCH ×2 (09:00→21:00)
[2022-09-08] MEDS: APIXABAN 2.5 MG TABLET PO SCH ×2 (09:49→22:10)
[2022-09-08] MEDS: DULOXETINE 30 MG CAP PO SCH ×2 (09:49→22:09)
[2022-09-08] MEDS: ROPINIROLE HCL 1 MG TAB PO SCH ×3 (09:49→22:09)
[2022-09-08] MEDS: GABAPENTIN 300 MG CAP PO SCH ×4 (09:50→22:09)
[2022-09-08] MEDS: HYDROCODONE/APAP 10/325 TAB PO PRN (10:05)
--- NOTE | 2022-09-08 15:29 | PN ---
Date of Progress Note: 09/08/2022 Subjective: Patient was admitted with a femoral fracture. Patient found to have acute kidney injury and UTI with hyponatremia. Patient treated. Her hyponatremia has been improved. Physical Examination: Vital Signs: When I saw the patient, the blood pressure 106/60, pulse of 102, afebrile. Chest: Clear to auscultation. Heart: S1, S2. Regular. Abdomen: Soft, obese. Could not appreciate any organomegaly. Extremities: Dressing on the right knee, venous stasis change, bilateral with trace edema. Neurologic: Alert. No focality. Laboratory Data: Hemoglobin 7.9, WBC 11.8. Sodium 132, potassium 4.1, bicarb 31, BUN 19, creatinine 0.5, calcium 8.9. Assessment And Plan: 1.Hyponatremia secondary to depletional, recovered, resolved. 2.Urinary tract infection. Continue current antibiotic. 3.Hypokalemia, status post supplement, resolved. 4.Secondary hyperparathyroidism. Persist elevation in PTH even after recovered the kidney function, possible primary hyperparathyroidism. I am going to go ahead and do sestamibi nuclear to localize p arathyroidism and we will follow up. 5.Deep venous thrombosis, stable. 6.Coronary artery disease with congestive heart failure, normal volume currently. We will follow up with the primary. ANGELICA Voice ID: [id number] Report ID: [id number]
--- NOTE | 2022-09-08 16:35 | P.PN ---
Subjective Date of Service: 09/08/22 Chief Complaint: Back pain Patient is complaining of abdominal discomfort. She reports multiple bowel since being treated for constipation. Physical Examination - Vital Signs Temperature: 96.8 F Blood Pressure: 103/43 Pulse: 95 Respirations: 16 Pulse Ox (%): 94 Assessment And Plan - Plan Physical exam GEN: Alert, oriented, NAD, obese HEENT: Normal conjunctiva, sclera anicteric CV: Regular rate and rhythm, trace b/l pedal edema Pulm: non labored respirations on 2L NC; slightly diminished at bases bilaterally ABD: Soft, nontender, nondistended MSK: RLE immobilized in Iván wrap. Neuro: Normal speech, normal affect Problem List Severe RLE pain, secondary to femur fracture, suspect pathologic etiology acute on chronic lumbar pain; h/o spondylosis HTN chronic systolic CHF GERD HLD h/o DVT depression gout s/p lap band Morbid obesity primary hyperparathoidism Plan: Lumbar MRI (08/30): moderate-severe multilevel degenerative disc disease. Primary abnormalities involving the neural foramina as well as some right subarticular stenosis. Minimal central spinal stenosis felt not to be clinically significant. Bilateral neuroforaminal narrowing. CT of R knee - noted femur fracture pt denied any falls, no trauma; has been minimally ambulatory for several weeks Chest x-ray negative Ortho Dr. Villegas performed retrograde intramedullary rodding, and biopsy of femur Suspected pathologic fracture. Bone biopsy is pending Initial CT on admission noted 2 small lucent lesions along the right iliac crest, indeterminate, with differential considerations including benign etiologies such as bone cysts, as well as metastatic disease. Noted elevated intact PTH suggesting primary hyperparathyroidism SPEP/UPEP is pending Patient may need a parathyroid scan as outpatient. Continue PT and mobilization. Awaiting skilled rehab placement. Discontinue laxatives due to abdominal discomfort. Supportive measures. Pain management as needed. VTE: Home Eliquis. Code: full Dispo: SNF
[2022-09-09] MEDS: METOPROLOL TAR 25 MG TAB PO SCH ×2 (05:54→17:27)
[2022-09-09] MEDS ORDERED: ALBUTEROL 2.5 MG/3 ML NEB SOL NEB PRN ×2 (07:09→14:00)
[2022-09-09] MEDS: Fluticasone/Vilanterol [Breo Ellipta 200-25 Mcg Inh] Blst.W.Dev IH SCH (08:15)
[2022-09-09] MEDS: ROPINIROLE HCL 1 MG TAB PO SCH ×2 (08:16→14:21)
[2022-09-09] MEDS: GABAPENTIN 300 MG CAP PO SCH ×3 (08:16→17:28)
[2022-09-09] MEDS: DULOXETINE 30 MG CAP PO SCH (08:16)
[2022-09-09] MEDS: APIXABAN 2.5 MG TABLET PO SCH (08:16)
[2022-09-09] MEDS: DOCUSATE NA 100 MG CAP PO SCH (08:17)
--- NOTE | 2022-09-09 14:20 | P.PN ---
Subjective Date of Service: 09/09/22 Chief Complaint: Back pain Subjective: No new changes Physical Examination - Vital Signs Temperature: 97.2 F Blood Pressure: 107/51 Pulse: 129 Respirations: 18 Pulse Ox (%): 96 - Physical Exam General: Other (appears as her stated age) HEENT: Atraumatic, Normocephalic Neck: Supple Respiratory: Other (symmetric chest expansion) Cardiovascular: No rubs, No murmurs Gastrointestinal: Soft and benign, No guarding Musculoskeletal: No clubbing Integumentary: No warmth Neurological: Normal tone Lymphatics: No axilla or inguinal lymphadenopathy Urinary: Other (No bladder distention) External genitalia: Deferred Rectal: Deferred Assessment And Plan - Plan 1. Hyponatremia. Serum Na improved to 132. Sinclair po fluid intake. 2. Urinary tract infection. Abx per primary team. 3. Hypokalemia, resolved. Monitor. 4. Secondary hyperparathyroidism. Persist elevation in PTH even after recovered the kidney function, possible primary hyperparathyroidism. For sestamibi nuclear scan to localize parathyroidism and we will follow up. 5. Deep venous thrombosis, stable. 6. Coronary artery disease with congestive heart failure, normal volume currently. We will follow up with the primary. Physician Review: Patient Assessed, Agree with Above Assessment and Plan
--- NOTE | 2022-09-09 15:19 | RAD REPORT ---
EXAM DESCRIPTION: CT - Head Brain W Cont - 09/09/2022 2:08 pm CLINICAL HISTORY: Generalized weakness. Altered mental status. Rule out CA COMPARISON: Head Brain Wo Cont dated 08/29/2022; Head Brain Wo Cont dated 08/18/2022; Chest Abdomen Pe lvis W Cont dated 09/09/2022; Chest Single View dated 09/05/2022; Hip Right Wo Con dated 09/01/2022 TECHNIQUE: Noncontrast head CT images ad were obtained before and after intravenous administration o f 95 mL Isovue-300. Multiplanar reformats were generated and reviewed. All CT scans are performed using dose optimization technique as appropriate and may include automated exposure control or mA/KV adjustment according to patient size. FINDINGS: No intracranial hemorrhage, mass, or edema. Midline structures are unremarkable. Normal ventricular caliber for age. Chapman-white matter differentiation is preserved, without evidence of acute infarct. No abnormal extra- axial fluid collections. Patchy periventricular and deep white matter areas of hypoattenuation particularly in the left more t griffiths right frontal lobe, stable, and nonspecific, most suggestive of chronic small vessel ischemic jae nges. Mastoid air cells and visualized portions of the paranasal sinuses are clear. No acute bony findings. No suspicious osseous lesions. IMPRESSION: No evidence of an acute intracranial process. No intracranial mass or abnormal enhancement.
[2022-09-09 15:22] VITALS: O2SAT 99
--- NOTE | 2022-09-09 16:51 | RAD REPORT ---
EXAM DESCRIPTION: CT - Chest Abdomen Pelvis W Cont - 09/09/2022 2:08 pm CLINICAL HISTORY: Weakness. Altered mental status. rule out CA COMPARISON: Renal Ultrasound-Complete dated 08/31/2022; Lumbar Spine Wo Con dated 08/30/2022; Chest Abd Pelvis Wo Con dated 08/29/2022; Femur Right dated 09/03/2022; Chest For Pe Angio dated 08/18/2022; MRI L UMBAR SPINE W O CON dated 02/02/2010 TECHNIQUE: Postcontrast axial CT images of the chest, abdomen, and pelvis were obtained, and multipl lia reformats were generated and reviewed. Approximately 95 mL nonionic IV contrast was administered to the patient. All CT scans are performed using dose optimization technique as appropriate and may include automated exposure control or mA/KV adjustment according to patient size. FINDINGS: Small layering bilateral pleural effusions with stable segmental dependent left upper lobe atelectasis. No new focal airspace opacities. No pericardial effusion. No pneumothorax. No intrathor acic adenopathy. Stable mild cardiomegaly. Solitary nodule/mass of the right adrenal gland, measuring 2.3 x 2.1 centimeter, stable. Diffuse left adrenal thickening, without focal lesions. Stable left superior renal pole 3.1 centimeter cyst, and another 1 centimeter left upper to mid pole cyst. Status post cholecystectomy. The liver, spleen, zhou creas, and kidneys are otherwise within normal limits. Gastric band in place. Urinary bladder is dec ompressed with Obando catheter in place. No bowel obstruction, free air, free fluid or abscess. Normal appendix. No pathologic lymphadenopath y in the abdomen or pelvis. Gastric band is present. Stable lucent lesions along the right iliac crest. Otherwise no worrisome osseous finding. Diffuse edema throughout the upper right thigh soft tissues with subcutaneous edema and skin thickeni ng. Skin madisyn and sequelae of the recent femoral intramedullary rodding are noted. IMPRESSION: Right adrenal 2.3 centimeter nodule. Given its precontrast density of less than 10 Houns field units, this is most suggestive of a lipid rich adenoma. This can be further characterized by ab dominal MRI on the opposed phase T1 imaging. Stable lucent lesions along the right iliac crest. No other masses or adenopathy in the chest, abdomen, or pelvis. Small layering bilateral pleural effusions with stable segmental dependent left upper lobe atelectasi s.
--- NOTE | 2022-09-09 17:33 | P.DS ---
Admission Date: 08/29/22 Discharge Date: 09/09/22 Disposition: TRANSFER TO CORRECTION Discharge Condition: FAIR Reason for Admission: Back pain Consultations: Ortho-Dr. Villegas. Brief History of Present Illness: Patient is a 77-year-old male with a past medical history significant for gout, HLD, GERD, DVT, depression, hypertension, chronic back pain, CHF, RLS who presents with complaint of intractable low back pain that has been ongoing for the past 6 months. Patient was alert and oriented x2, confused and unable to provide accurate history. Patient's spouse reported that pain is controlled with oral p.o. medications. Patient rated pain as 10/10 in severity and described pain as aching in quality. Patient's spouse reported that patient has been bedbound for the past 1 month due to pain. Patient is on home O2 therapy. Bilateral extremity edema noted. She was hospitalized for further management. Hospital Course: Problem List Severe RLE pain, secondary to femoral shaft fracture-pathologic acute on chronic lumbar pain; h/o spondylosis HTN chronic systolic CHF GERD HLD h/o DVT depression gout s/p lap band Morbid obesity primary hyperparathoidism Hospital course Patient had lumbar MRI (08/30) which showed moderate-severe multilevel degenerative disc disease. Primary abnormalities involving the neural foramina as well as some right subarticular stenosis. Minimal central spinal stenosis felt not to be clinically significant. Bilateral neuroforaminal narrowing. CT of R knee - noted femur shaft fracture She denied any falls, no trauma; has been non ambulatory for several weeks Chest x-ray negative Ortho Dr. Villegas performed retrograde intramedullary rodding, and biopsy of femur Suspected pathologic fracture. Bone biopsy preliminary shows adenocarcinoma and possible metastatic disease according to report. Specimen is sent for immunotyping to determine origin of metastasis. Initial CT on admission noted 2 small lucent lesions along the right iliac crest, indeterminate, with differential considerations including benign etiologies such as bone cysts, as well as metastatic disease. Dr. Rincon informed for outpatient follow-up for treatment. Dr. Rincon recommended radiation therapy to the affected bone to be initiated within 2 weeks and recommended only 2 weeks of rehab followed by cancer treatment. Patient has past been told to follow-up with Dr. Rincon as outpatient for arrangement for the radiation therapy and further cancer treatment as needed. Noted elevated intact PTH suggesting primary hyperparathyroidism SPEP/UPEP is pending Patient may need a parathyroid scan as outpatient. Seen by PT. currently undergoing bed mobility, ankle pumps, knee flexion and extension, hip abduction and adduction. Patient accepted to [facility] for skilled rehab. Patient has atrial fibrillation, intermittent RVR which was managed with her home dose metoprolol. Her blood pressure has been borderline low but has tolerated the metoprolol. Current vital signs stable for transfer to [facility]. Vital Signs/Physical Exam: Temp Pulse Resp BP Pulse Ox 96.8 F 135 H 17 110/51 L 96 09/09/22 16:00 09/09/22 16:00 09/09/22 16:00 09/09/22 16:00 09/09/22 16:00 General: Alert, In no apparent distress, Oriented x3, Obese HEENT: Mucous membr. moist/pink Neck: JVD not distended Respiratory: Clear to auscultation bilaterally, Normal air movement Cardiovascular: Normal S1 S2, Edema (+1 Bilateral lower extremity pitting edema), Irregular heart rate/rhythm Gastrointestinal: Normal bowel sounds, Soft and benign, Non-distended Musculoskeletal: Other (Right leg in Iván wrap) Neurological: Other (Globally weak, no focal motor deficits.) Laboratory Data at Discharge: WBC 11.80 K/uL (4.3-10.9) H 09/08/22 02:51 Hgb 7.9 g/dL (12.0-15.0) L 09/08/22 02:51 Hct 24.7 % (36.0-45.0) L 09/08/22 02:51 Plt Count 444 K/uL (152-406) H 09/08/22 02:51 PT 14.4 SECONDS (9.5-12.5) H 09/03/22 02:46 INR 1.31 09/03/22 02:46 Sodium 132 mmol/L (136-145) L 09/08/22 02:51 Potassium 4.1 mmol/L (3.5-5.1) 09/08/22 02:51 BUN 19 mg/dL (7-18) H 09/08/22 02:51 Creatinine 0.55 mg/dL (0.55-1.02) 09/08/22 02:51 Glucose 112 mg/dL (74-106) H 09/08/22 02:51 Uric Acid 8.8 mg/dL (2.6-6.0) H 09/01/22 02:28 Phosphorus 2.7 mg/dL (2.5-4.9) 09/05/22 05:33 Magnesium 2.0 mg/dL (1.6-2.4) 09/04/22 05:44 Total Bilirubin 0.3 mg/dL (0.2-1.0) 08/31/22 02:56 AST 10 U/L (15-37) L 08/31/22 02:56 ALT 14 U/L (13-56) 08/31/22 02:56 Alkaline Phosphatase 95 U/L (45-117) 08/31/22 02:56 Triglycerides 111 mg/dL (<150) 08/29/22 19:07 Cholesterol 179 mg/dL (<200) 08/29/22 19:07 HDL Cholesterol 42 mg/dL (40-60) 08/29/22 19:07 Cholesterol/HDL Ratio 4.26 08/29/22 19:07 Lipase 55 U/L (13-75) 08/29/22 14:55 Home Medications: Atorvastatin Calcium 20 mg PO DAILY 05/10/17 Folic Acid 1 mg PO BID 05/10/17 Gabapentin 600 mg PO QID 05/10/17 Pantoprazole [Protonix Tab*] 40 mg PO DAILY 05/10/17 Ropinirole HCl [Requip*] 1 mg PO 6XD 05/10/17 Albuterol Inhaler [Ventolin Inhaler*] 8 gm IH PRN PRN 08/20/20 Allopurinol 300 mg PO DAILY 08/20/20 Apixaban [Eliquis *] 2.5 mg PO BID 08/20/20 Cyanocobalamin (Vitamin B-12) [Vitamin B-12] 1 cap PO DAILY 08/20/20 Duloxetine HCl 60 mg PO BID 08/20/20 Fluticasone/Vilanterol [Breo Ellipta 200-25 Mcg INH] 1 each IH DAILY 08/20/20 Spironolactone 25 mg PO DAILY 08/20/20 Ubidecarenone [Co Q-10] 400 mg PO DAILY 08/20/20 Metoprolol Tartrate [Lopressor*] 25 mg PO BID 6AM 6PM 30 Days #60 tab 08/20/22 Docusate [Colace Cap*] 100 mg PO BID cap 09/09/22 Hydrocodone 10/APAP 325 [[place] 10/325*] 1 tab PO Q6H PRN #15 tab 09/09/22 Polyethyl Gly 3350 [Glycolax*] 17 gm PO DAILY PRN udbot 09/09/22 New Medications: Hydrocodone 10/APAP 325 [[place] 10/325*] 1 tab PO Q6H PRN #15 tab PRN Reason: Pain Scale 5-7 (Moderate) Followup: Sabiha Majano MD [ACTIVE - CAN ADMIT] - 1-2 Weeks (follow up in 2 weeks) Tyree Pacheco, DO [Primary Care Provider] - Time spent managing pt's care (in minutes): 42
[2022-09-10 08:48] VITALS: BP 107/51; TEMP 97.2
[2022-09-10 21:17] LABS: Alpha-1-Globulins 0.6 g/dL (0.2-0.3); Gamma Globulins 0.4 g/dL (0.8-1.7); INTERPRETATION REPORT
== END 2022-09-09 18:07 | DRG 477 ==
LOC: ER 14:40 → ERHOLD 17:41 → 2ND 19:39
PROVIDERS: ADMIT Internal Medicine; ATTEND Internal Medicine
PROC: 0QHB36Z Insertion of Intramedullary Internal Fixation Device into Right Lower Femur, Percutaneous Approach (ICD-10-PCS; 2022-09-03)
PROC: 0QB Lower Bones, Excision (ICD-10-PCS; principal; 2022-09-03 08:00)
DX: M84.451A Pathological fracture, right femur, initial encounter for fracture (principal); N17.0 Acute kidney failure with tubular necrosis; E87.1 Hypo-osmolality and hyponatremia; Z68.41 Body mass index [BMI] 40.0-44.9, adult; N39.0 Urinary tract infection, site not specified; I48.19 Other persistent atrial fibrillation; I50.22 Chronic systolic (congestive) heart failure; C40.21 Malignant neoplasm of long bones of right lower limb; C79.9 Secondary malignant neoplasm of unspecified site; I11.0 Hypertensive heart disease with heart failure; E66.01 Morbid (severe) obesity due to excess calories; M10.9 Gout, unspecified; D63.8 Anemia in other chronic diseases classified elsewhere; E78.5 Hyperlipidemia, unspecified; G25.81 Restless legs syndrome; G89.29 Other chronic pain; M54.50 Low back pain, unspecified; G62.9 Polyneuropathy, unspecified; E87.6 Hypokalemia; E86.0 Dehydration; E21.3 Hyperparathyroidism, unspecified; F32.A Depression, unspecified; M19.90 Unspecified osteoarthritis, unspecified site; M51.36 Other intervertebral disc degeneration, lumbar region; K21.9 Gastro-esophageal reflux disease without esophagitis; E21.0 Primary hyperparathyroidism; K59.00 Constipation, unspecified; D72.829 Elevated white blood cell count, unspecified; I25.10 Atherosclerotic heart disease of native coronary artery without angina pectoris; T50.2X5A Adverse effect of carbonic-anhydrase inhibitors, benzothiadiazides and other diuretics, initial encounter; Z79.01 Long term (current) use of anticoagulants; Z74.01 Bed confinement status; Z87.891 Personal history of nicotine dependence; Z86.718 Personal history of other venous thrombosis and embolism; Z96.653 Presence of artificial knee joint, bilateral; Z96.612 Presence of left artificial shoulder joint; Z96.611 Presence of right artificial shoulder joint; Z79.899 Other long term (current) drug therapy; Z20.822 Contact with and (suspected) exposure to COVID-19
CPT/HCPCS: 0240U; 36415; 70450; 70460; 71045; 71250; 71260; 72148; 73700; 74176; 74177; 76000; 76770; 80048; 80053; 80061; 80069; 80076; 81001; 81003; 82085; 82533; 82550; 82570; 82607; 82652; 82728; 83036; 83540; 83690; 83735; 83880; 83970; 84100; 84132; 84156; 84165; 84300; 84439; 84443; 84466; 84484; 84550; 85025; 85027; 85044; 85610; 86140; 87040; 87086; 87088; 88305; 93005; 93970; 96361; 96365; 96366; 96375; 97110; 97161; 97164; 97530; 99285; J0171; J0330; J0690; J0692; J1170; J1940; J2001; J2405; J2704; J2930; J3010; J7030; J7120; Q9967; U0003

== ENCOUNTER 2022-10-12 04:51 | Inpatient (IN) | payer OTHER ==
[2022-10-12 05:09] LABS: Arterial Blood Carboxyhemoglob 1.4 % (0-1.5); Blood Gas Oxyhemoglobin 89.2 % (94-97); Blood O2 Saturation 91.7 % (92-98.5)
[2022-10-12] MEDS ORDERED: METHYLPREDNISOLONE 125 MG INJ ONE (05:15)
[2022-10-12] MEDS ORDERED: FUROSEMIDE 20 MG/ 2ML VIAL ONE ×2 (05:15→18:21)
[2022-10-12] MEDS ORDERED: ALBUTEROL 2.5 MG/3 ML NEB SOL ONE (05:16)
[2022-10-12] MEDS ORDERED: IPRATROPIUM BROM 0.5MG/2.5ML ONE ×2 (05:16→13:37)
--- OUTSIDE RECORDS SUMMARY | 2022-10-12 05:16 | XMS REPORT | Continuity of Care Document ---
:1945 Author Organization [facility] t Address [address] [place] [address] [place] [id number] Care Team Providers Name Role Phone GABBY JOSIANE M Primary Care Physician Unavailable [place] Josiane M Attending Clinician Unavailable BRADLEY STANFORD Attending Clinician Unavailable Doctor Unassigned, [place] Attending Clinician Unavailable Bradley Stanford MD Attending Clinician LAYLA BIANCHI Attending Clinician Unavailable Gavi_Chandler Attending Clinician Unavailable Layla Bianchi MD Attending Clinician Shaan MONDRAGON Attending Clinician Unavailable Shaan Calle [...] Attending Clinician Unavailable Jorge Ruby Attending Clinician Josiane Pacheco Admitting Clinician Unavailable Gavi_Chandler Admitting Clinician Unavailable Shaan MONDRAGON Admitting Clinician Unavailable Wilver Atkinson Admitting Clinician Unavailable UNDEFINED Admitting Clinician Unavailable LAYLA BIANCHI Admitting Clinician Unavailable Jorge Ruby Admitting Clinician Payers Payer Name Policy Type Policy Number Effective Date Expiration Date S ros HERNANDESNA MEDICARE 53 [id number] 2013 [facility]00 - [facility] MEDICARE MB [id number] 2009 [facility] NOVITAS 00:00:00 - [facility] MEDICARE MB [id number] 2009 [facility] NOVITAS 00:00:00 - [facility] MEDICARE MB [id number] 2009 [facility] NOVITAS 00:00:00 - [facility] MEDICARE MB [id number] 2009 [facility] NOVITAS 00:00:00 - [facility] MEDICARE MB [id number] 2009 [facility] NOVITAS 00:00:00 - [facility] MEDICARE MB [id number] 2009 [facility] NOVITAS 00:00:00 - [facility] MEDICARE MB [id number] 2009 [facility] NOVITAS 00:00:00 - [facility] MEDICARE MB [id number] 2009 [facility] NOVITAS 00:00:00 - [facility] MEDICARE MB [id number] 2009 [facility] NOVITAS 00:00:00 - [facility] MEDICARE MB [id number] 2009 [facility] NOVITAS 00:00:00 [facility] MEDICARE MB [id number] 2009 [facility] NOVITAS 00:00:00 - [facility] MEDICARE MB [id number] 2009 [facility] NOVITAS 00:00:00 [facility] MEDICARE MB [id number] 2009 [facility] NOVITAS 00:00:00 - [facility] [employer] MEDICARE C1 [id number] 2017 [facility] 00:00:00 - [facility] [id number] 2017 [facility] 00:00:00 - [facility] [employer] MEDICARE C1 [id number] 2017 [facility] 00:00:00 - [facility] AET[employer] MEDICARE [id number] 2017 [facility] 00:00:00 - [facility] Problems Condition Condition Condition Status Onset Resolution Last Treating Co mments Source Name Details Category Date Date Treatment Clinician Date Volume Volume Disease Active Univers overload overload 2-26 ity of 00:00: [place] 00 Medical Branch History of History of Disease Active U nivers DVT (deep DVT (deep 2-26 ity of vein vein 00:00: [place] thrombosis thrombosis 00 Me dical ) ) [...] STENOSIS STENOSIS 9-16 18:00:00 l Active 00:00: [place] 03/18/2016 00 [facility] Essential Essential Disease Active 2014-07 Uni vers hypertensi hypertensi 2-18 it y of on on 00:00: [place] [facility] Hyperlipid Hyperlipid Disease Active 2014-07 U nivers emia emia 2-18 ity of 00:00: [place] [facility] Sleep Sleep Disease Active 2014-07 Univers apnea apnea 2-18 ity of 00:00: [place] [facility] Osteoarthr Osteoarthr Disease Active 2014-07 U nivers itis of itis of 2-18 ity of both knees [place] [facility] [place] Depressive Problem Active 2016-07-08 M emoria disorder Depressive 04:40:14 l (disorder) disorder Herm jesse (disorder) Active Problem 07/08/2016 [facility] OPID [place] Eczema Eczema Problem Active 2016-07-08 Manjinder nasir (disorder) (disorder) 04:40:14 l Active [place] Problem 07/08/2016 [facility] OPID [place] Hypertensi Hypertens Problem Active 2016-07-08 Memoria ve willard 04:40:14 l disorder, disorder, Herm jesse systemic systemic arterial arterial (disorder) (disorder) Active Problem 07/08/2016 [facility] OPID [place] Impairment Impairmen Problem Active 2016-07-08 Memoria of balance t of 04:40:14 l (finding) balance Omer n (finding) Active Problem 07/08/2016 [facility] OPID [place] Obesity Obesity Problem Active 2016-07-08 Me moria (disorder) (disorder) 04:40:14 l Active [place] Problem 07/08/2016 [facility] OPID [place] Pain Pain Problem Active 2016-07-08 Memor ia (finding) (finding) 04:40:14 l Active [place] Problem 07/08/2016 [facility] OPID [place] SPINAL SPINAL Diagnosis Active 2016-04-04 Me moria STENOSIS, STENOSIS, 18:00:00 l CERVICAL CERVICAL Omer n REGION REGION Active [facility] CERVICAL CERVICAL Diagnosis Active 2016-04-04 Memoria DISC DISC 18:00:00 l DISORDER DISORDER Omer n WITH WITH MYELOPATHY MYELOPATHY , , Active [facility] Mixed Mixed Problem Common incontinen incontinen Sp cari ce ce - CHI [facility] 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 extremity, Medica l unspecifie Center d vein [id number] Acute gout Problem Co mmon involving Spirit toe of - CHI left foot, St unspecifie [facility] d [facility] [place] History of Personal Problem Com mon thromboemb history of Sp cari olism of other - [facility] vein venous thrombosis [facility] and Medical embolism Center Hypokalemi Hypokalemi Problem C erika a a Spirit - [facility] Nicotine Personal Problem Commo n dependence history of Sp cari nicotine - CHI dependence [facility] Family Family Problem Common history of history of Sp cari ischemic ischemic - CHI heart heart St disease disease 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 - [facility] Acute Acute Problem Common drug-induc drug-induc Sp cari ed gout of ed gout of - CHI foot, foot, St unspecifie unspecifie [place] d Medical laterality laterality Ce nter [id number] 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 - [facility] Restless Restless Problem Commo n legs leg Spirit syndrome syndrome - [facility] Peripheral Venous Problem Commo n venous insufficie Spirit insufficie ncy - CHI ncy [facility] Congestive CHF Problem Commo n heart (congestiv Spirit failure e heart - CHI failure) [facility] Obstructiv Obstructiv Problem C ommon e sleep e sleep Spirit apnea apnea - [facility] Benign Benign Problem Common essential essential Spir it hypertensi hypertensi - CHI on on [facility] Chronic Chronic Problem Common kidney kidney Spirit disease disease, - CHI unspecifie [facility] Morbid Morbid Problem Common obesity obesity Spirit - [facility] Cervicalgi Cervicalgi Problem C ommon a a Spirit - [facility] [id number] Alcohol Problem Commo n dependence Spirit in - CHI remission [facility] [id number] Iron Problem Common deficiency Spirit anemia, - CHI unspecifie [facility] deficiency Medica l anemia Center type [id number] Other Problem Common specified Spirit postproced - CHI ural [facility] Spinal Spinal Problem Common stenosis stenosis Spirit in of - CHI cervical cervical St region region [facility] High risk intermediate Problem Com mon drug current Spirit monitoring use of - CHI status opiate 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 - CHI disease [facility] History of Bariatric Problem Co mmon bariatric surgery Spirit surgical status - CHI procedure [facility] Presence Presence Problem Commo n of of right Spirit orthopedic artificial - CHI joint shoulder St implant joint [facility] Artificial Presence Problem Com mon knee joint of right Spir it present artificial - CHI knee joint [facility] History of History of Problem C ommon fall falling Spirit - [facility] Urogenital Presence Problem Com mon implant of Spirit urogenital - CHI implants [facility] [id number] Acquired Problem Commo n absence of Spirit other - CHI specified St parts of [facility] digestive Medical tract Center Hysterecto Acquired Problem Com mon my absence of Spirit both - CHI cervix and uterus [facility] Hypertensi Hypertensi Problem C ommon ve heart ve heart Spirit AND and - CHI chronic chronic kidney kidney [facility] disease disease Medical with with heart Center congestive failure heart and stage failure 1 through stage 4 chronic kidney disease, or chronic kidney disease Major Major Problem Common depressive depressive Sp cari disorder disorder - [facility] Long-term intermediate Problem Com mon current current Spirit use of use of - CHI anticoagul anticoagul ant ant [facility] Gastro-eso Gastro-eso Problem C ommon phageal phageal Spirit reflux reflux - CHI disease disease St without without [facility] esophagiti esophagiti Me dical s s [place] Family Family Problem Common history of history of Sp cari cancer malignant - CHI neoplasm, St unspecifie [facility] Family Family Problem Common history of history of Sp cari mental other - CHI disorder mental and St behavioral [facility] disorders [facility] Walking Difficulty Problem Comm on disability in Spirit walking, - CHI not St elsewhere [facility] classified Medica [facility] [id number] Body mass Problem Com mon index Spirit (BMI) - CHI 40.0-44.9, adult [facility] Spasm Other Problem Common muscle Spirit spasm - CHI [facility] Allergies, Adverse Reactions, Alerts Allergy Allergy Status Severity Reaction(s) Onset Inactive Treating Comm ents Source Name Type Date Date Clinician codeine DA Active SV [facility] 3-10 Clear 00:00: [place] [facility] codeine DA Active SV EXTREME [facility] NAUSEA AND 3-10 Clear ITCHING 00:00: [place] 00 [facility] METOLAZO DRUG Active Unknown-Cmnt 2020-0 Un bautista NE INGREDI 3-31 ity of 00:00: [place] Medical Lucien Metolazo Propensi Active Unknown - 2019-0 gout Uni vers ne ty to See comments 3-31 ity of adverse 00:00: [place] reaction 00 Medical s Branch codeine DA Active SV EXTREME 2018-07 [facility] NAUSEA 0-10 [place] 00:00: Orthope 00 dic Hospita l codeine DA Active SV 2018- [facility] 0-10 [facility] 00:[facility]: Hospita 00 l of [place] codeine DA Active SV [facility] 9-11 [place] 00:00: Orthope 00 dic Hospita l CODEINE DRUG Active High N/V 2017- Univers INGREDI 6-12 ity of 00:00: [place] 00 Medical Branch codeine DA Active SV [facility] 2-07 [place] 00:00: Orthope 00 dic Hospita l Codeine Codeine Active nausea, Common vomiting Spirit - [facility] Social History Social Habit Start Date Stop Date Quantity Comments Source History of Tobacco [facility] - Use [facility] Sex Assigned At Common Sp cari - [facility] Exposure to 2022-05-20 2022-05-30 Not sure University of SARS-CoV-2 (event) 00:00:00 15:08:00 [facility] Alcohol intake 2022-05-17 2022-05-17 Current University of 00:00:00 00:00:00 non-drinker of [facility] alcohol Branch (finding) Tobacco use and 2021-08-30 2021-08-30 Smokeless Universit y of exposure 00:00:00 00:00:00 tobacco non-user [facility] dical Branch Cigarettes smoked 2021-08-30 2021-08-30 Univers ity of current (pack per 00:00:00 00:00:00 ) - Reported Branch Cigarette 2021-08-30 2021-08-30 University of pack-years 00:00:00 00:00:00 [facility] Smoking Status Start Date Stop Date Source Social History 2016-07-05 21:40:59 2016-07-05 21:40:59 [facility] Medications Ordered Filled Start Stop Current Ordering Indication Dosage Frequency Signature Comments Components Source Medication Medication Date Date Medication? Clinician (SIG) Name Name HYDROcodone HYDROcodone No 1{table HYDROcodon -Acetaminop -Acetaminop 1-31 t_as_ne e-Acetamin hen 7.5-325 hen 7.5-325 00:00: eded} ophen MG MG 00 7.5-325 MG HYDROcodone HYDROcodone No 1{table HYDROcodon -Acetaminop -Acetaminop 1-31 t_as_ne e-Acetamin hen 7.5-325 hen 7.5-325 00:00: eded} ophen MG MG 00 7.5-325 MG spironolact Yes [id number] 25mg Take 1 Univers one 25 mg 1-09 tablet by ity o f tablet 00:00: mouth in [place] 00 the Medical morning. Branch spironolact Yes [id number] 25mg Take 1 Univers one 25 mg 1-09 tablet by ity o f tablet 00:00: mouth in [place] 00 the Medical morning. Branch spironolact 2023-0 Yes [id number] 25mg Take 1 Univers one 25 mg 1-09 tablet by ity o f tablet 00:00: mouth in [place] 00 the Medical morning. Branch spironolact 2023-0 Yes [id number] 25mg Take 1 Univers one 25 mg 1-09 tablet by ity o f tablet 00:00: mouth in [place] 00 the Medical morning. Branch spironolact 2023-0 Yes [id number] 25mg Take 1 Univers one 25 mg 1-09 tablet by ity o f tablet 00:00: mouth in [place] 00 the Medical morning. Branch spironolact 2023-0 Yes [id number] 25mg Take 1 Univers one 25 mg 1-09 tablet by ity o f tablet 00:00: mouth in [place] 00 the Medical morning. Branch spironolact 3-0 Yes [id number] 25mg Take 1 Univers one 25 mg 1-09 tablet by ity o f tablet 00:00: mouth in [place] 00 the Medical morning. Lucien ketoconazol 2021-07 Yes Apply to Un bautista e 2 % cream 1-28 area(s) ity o f 15:38: daily. [address] clobetasoL 2021-07 Yes Apply to Uni vers 0.05 % 1-28 area(s). ity of ointment 15:38: [address] ketoconazol 2021-07 Yes Apply to Un bautista e 2 % cream 1-28 area(s) ity o f 15:38: daily. [address] clobetasoL 2021-07 Yes Apply to Uni vers 0.05 % 1-28 area(s). ity of ointment 15:38: [address] ketoconazol 2021-07 Yes Apply to Un bautista e 2 % cream 1-28 area(s) ity o f 15:38: daily. [address] clobetasoL 2021-07 Yes Apply to Uni vers 0.05 % 1-28 area(s). ity of ointment 15:38: [address] ketoconazol 2021-07 Yes Apply to Un bautista e 2 % cream 1-28 area(s) ity o f 15:38: daily. [address] clobetasoL 2021-07 Yes Apply to Uni vers 0.05 % 1-28 area(s). ity of ointment 15:38: [address] ketoconazol 2021-07 Yes Apply to Un bautista e 2 % cream 1-28 area(s) ity o f 15:38: daily. [address] clobetasoL 2021-07 Yes Apply to Uni vers 0.05 % 1-28 area(s). ity of ointment 15:38: [address] ketoconazol 2021-07 Yes Apply to Un bautista e 2 % cream 1-28 area(s) ity o f 15:38: daily. [address] clobetasoL 2021-07 Yes Apply to Uni vers 0.05 % 1-28 area(s). ity of ointment 15:38: [address] ketoconazol 2021-07 Yes Apply to Un bautista e 2 % cream 1-28 area(s) ity o f 15:38: daily. [address] clobetasoL 2021-07 Yes Apply to Uni vers 0.05 % 1-28 area(s). ity of ointment 15:38: [address] ketoconazol 2021-07 Yes Apply to Un bautista e 2 % cream 1-28 area(s) ity o f 15:38: daily. [address] clobetasoL 2021-07 Yes Apply to Uni vers 0.05 % 1-28 area(s). ity of ointment 15:38: [address] ketoconazol 2021-07 Yes Apply to Un bautista e 2 % cream 1-28 area(s) ity o f 15:38: daily. [address] clobetasoL 2021-07 Yes Apply to Uni vers 0.05 % 1-28 area(s). ity of ointment 15:38: [address] empaglifloz 2021-07 Yes [id number] 10mg Take 1 Univers in 10 mg 1-28 02 tablet by ity of 00:00: mouth in [place] 00 the Medical morning. Lucien empaglifloz 2021-07 Yes [id number] 10mg Take 1 Univers in 10 mg 1-28 02 tablet by ity of 00:00: mouth in [place] the morning. Melody empaglifloz 2021-07 Yes [id number] 10mg Take 1 Univers in 10 mg 1-28 02 tablet by ity of 00:00: mouth in [place] the morning. Melody empaglifloz 2021-07 Yes [id number] 10mg Take 1 Univers in 10 mg 1-28 02 tablet by ity of 00:00: mouth in [place] the morning. Melody empaglifloz 2021-07 Yes [id number] 10mg Take 1 Univers in 10 mg 1-28 02 tablet by ity of 00:00: mouth in [place] the morning. Melody empaglifloz 2021-07 Yes [id number] 10mg Take 1 Univers in 10 mg 1-28 02 tablet by ity of 00:00: mouth in [place] the morning. Lucien empaglifloz 2021-07 Yes [id number] 10mg Take 1 Univers in 10 mg 1-28 02 tablet by ity of 00:00: mouth in [place] the morning. Lucien empaglifloz 2021-07 Yes [id number] 10mg Take 1 Univers in 10 mg 1-28 02 tablet by ity of 00:00: mouth in [place] the morning. Lucien empaglifloz 2021-07 Yes [id number] 10mg Take 1 Univers in 10 mg 1-28 02 tablet by ity of 00:00: mouth in [place] the morning. Lucien sulfamethox 2021-07 Yes 1{tbl} 1 tablet, Univers azole-trime 16 Oral, BID, it y of thoprim 02:00[place] (BACT[place]IM 00 on [facility] DS) 800-160 05/17/22 Bran ch mg per at 2000, tablet 1 Until tablet Discontinu ed, SLAVA
Re ason for Anti-Infec tive: Documented Infection< br>Documen james Infection Site: Skin / Soft Tissue<br& gt;Duratio n of Therapy: 10 days cefTRIAXone 2021-07 No 1000mg 1,000 mg, Univers (ROCEPHIN) -16 11-16 IV ity of 1,000 mg in 01:30: 02:38 Piggyback, [place] NaCl 0.9% 00 :00 ONCE, 1 Medical (NS) 50 mL dose, On Branc h MINI-BAG 05/17/22 at 1930, Administer over 30 Minutes, 50 mL
Reas on for Anti-Infec tive: Documented Infection< br>Documen james Infection Site: Skin / Soft Tissue
Duration of Therapy: Other (see Comments) sulfamethox 2021-07 Yes [id number] 1{tbl} Take 1 Univers azole-trime 1-15 [id number] tablet by i ty of thoprim 00:00: mouth [place] 800-160 mg 00 every 12 Medic al per tablet (twelve) Branc h hours. sulfamethox 2021-07 Yes [id number] 1{tbl} Take 1 Univers azole-trime 1-15 [id number] tablet by i ty of thoprim 00:00: mouth [place] 800-160 mg 00 every 12 Medic al per tablet (twelve) Branc h hours. sulfamethox 2021-07 Yes [id number] 1{tbl} Take 1 Univers azole-trime 1-15 [id number] tablet by i ty of thoprim 00:00: mouth [place] 800-160 mg 00 every 12 Medic al per tablet (twelve) Branc h hours. sulfamethox 2021-07 Yes [id number] 1{tbl} Take 1 Univers azole-trime 1-15 [id number] tablet by i ty of thoprim 00:00: mouth [place] 800-160 mg 00 every 12 Medic al per tablet (twelve) Branc h hours. sulfamethox 2021-07 Yes [id number] 1{tbl} Take 1 Univers azole-trime 1-15 [id number] tablet by i ty of thoprim 00:00: mouth [place] 800-160 mg 00 every 12 Medic al per tablet (twelve) Branc h hours. sulfamethox 2021-07 Yes [id number] 1{tbl} Take 1 Univers azole-trime 1-15 [id number] tablet by i ty of thoprim 00:00: mouth [place] 800-160 mg 00 every 12 Medic al per tablet (twelve) Branc h hours. sulfamethox 2021-07 Yes [id number] 1{tbl} Take 1 Univers azole-trime 1-15 [id number] tablet by i ty of thoprim 00:00: mouth [place] 800-160 mg 00 every 12 Medic al per tablet (twelve) Branc h hours. sulfamethox 2021-07 Yes [id number] 1{tbl} Take 1 Univers azole-trime 1-15 [id number] tablet by i ty of thoprim 00:00: mouth [place] 800-160 mg 00 every 12 Medic al per tablet (twelve) Branc h hours. sulfamethox 2021-07 Yes [id number] 1{tbl} Take 1 Univers azole-trime 1-15 [id number] tablet by i ty of thoprim 00:00: mouth [place] 800-160 mg 00 every 12 Medic al per tablet (twelve) Branc h hours. sulfamethox 2021-07 Yes [id number] 1{tbl} Take 1 Univers azole-trime 1-15 [id number] tablet by i ty of thoprim 00:00: mouth [place] 800-160 mg 00 every 12 Medic al per tablet (twelve) Branc h hours. sulfamethox 2021-07 Yes [id number] 1{tbl} Take 1 Univers azole-trime 1-15 [id number] tablet by i ty of thoprim 00:00: mouth [place] 800-160 mg 00 every 12 Medic al per tablet (twelve) Branc h hours. cephALEXin 2021-07- No [id number] 500mg Take 1 Univers (KEFLEX) 1-15 05-28 [id number] capsule by it y of 500 mg 00:00: 05:59 mouth in [place] capsule 00 :00 the Medical morning Branch and 1 capsule at noon and 1 capsule in the evening. Do all this for 10 days. spironolact 2021-07 Yes [id number] 25mg Take 1 Univers one 25 mg 0-11 tablet by ity o f tablet 00:00: mouth in [place] 00 the Medical morning. Branch spironolact 2021-07 Yes [id number] 25mg Take 1 Univers one 25 mg 0-11 tablet by ity o f tablet 00:00: mouth in [place] 00 the Medical morning. Branch spironolact 2021-07 Yes [id number] 25mg Take 1 Univers one 25 mg 0-11 tablet by ity o f tablet 00:00: mouth in [place] 00 the Medical morning. Branch spironolact 2021-07 Yes [id number] 25mg Take 1 Univers one 25 mg 0-11 tablet by ity o f tablet 00:00: mouth in [place] 00 the Medical morning. Branch spironolact 2021-07 Yes [id number] 25mg Take 1 Univers one 25 mg 0-11 tablet by ity o f tablet 00:00: mouth in [place] 00 the Medical morning. Branch spironolact 2021-073- No [id number] 25mg Take 1 Univers one 25 mg 0-11 - tablet by ity of tablet 00:00: 00:00 mouth in [place] 00 :00 the Medical morning. Branch KCL 20 mEq 2022-0 Yes 20meq Take 1 Univ ers tablet 8-22 tablet by ity of 00:00: mouth in [place] 00 the Medical morning Branch and 1 tablet in the evening. KCL 20 mEq 2022-0 Yes 20meq Take 1 Univ ers tablet 8-22 tablet by ity of 00:00: mouth in [place] 00 the Medical morning Branch and 1 tablet in the evening. KCL 20 mEq 2022-0 Yes 20meq Take 1 Univ ers tablet 8-22 tablet by ity of 00:00: mouth in [place] 00 the Medical morning Branch and 1 tablet in the evening. KCL 20 mEq 2022-0 Yes 20meq Take 1 Univ ers tablet 8-22 tablet by ity of 00:00: mouth in [place] 00 the Medical morning Branch and 1 tablet in the evening. KCL 20 mEq 2022-0 Yes 20meq Take 1 Univ ers tablet 8-22 tablet by ity of 00:00: mouth in [place] 00 the Medical morning Branch and 1 tablet in the evening. KCL 20 mEq 2022-0 Yes 20meq Take 1 Univ ers tablet 8-22 tablet by ity of 00:00: mouth in [place] 00 the Medical morning Branch and 1 tablet in the evening. KCL 20 mEq 2022-0 Yes 20meq Take 1 Univ ers tablet 8-22 tablet by ity of 00:00: mouth in [place] 00 the Medical morning Branch and 1 tablet in the evening. KCL 20 mEq 2022-0 Yes 20meq Take 1 Univ ers tablet 8-22 tablet by ity of 00:00: mouth in [place] 00 the Medical morning Branch and 1 tablet in the evening. KCL 20 mEq 2022-0 Yes 20meq Take 1 [facility] ers tablet 8-22 tablet by ity of 00:00: mouth in [place] 00 the Medical morning Branch and 1 tablet in the evening. KCL 20 mEq 2022-0 Yes 20meq Take 1 Univ ers tablet 8-22 tablet by ity of 00:00: mouth in [place] 00 the Medical morning Branch and 1 tablet in the evening. KCL 20 mEq 2022-0 Yes 20meq Take 1 Univ ers tablet 8-22 tablet by ity of 00:00: mouth in [place] 00 the Medical morning Branch and 1 tablet in the evening. KCL 20 mEq 2022-0 Yes 20meq Take 1 Univ ers tablet 8-22 tablet by ity of 00:00: mouth in [place] 00 the Medical morning Branch and 1 tablet in the evening. KCL 20 mEq 2022-0 Yes 20meq Take 1 Univ ers tablet 8-22 tablet by ity of 00:00: mouth in [place] 00 the Medical morning Branch and 1 tablet in the evening. apixaban 2-0 Yes 1473 2.5mg Take 1 Un[facility] s 2.5 mg 8-12 tablet by ity of tablet 00:00: mouth in [place] 00 the [facility] morning Branch and 1 tablet in the evening. Indication s: blood clot in a deep vein of the extremitie s apixaban 2021-0 Yes 1473 2.5mg Take 1 Univer s 2.5 mg 8-12 tablet by ity of tablet 00:00: mouth in [place] [address] the [facility] morning Branch and 1 tablet in the evening. Indication s: blood clot in a deep vein of the extremitie s apixaban 2-0 Yes 1473 2.5mg Take 1 Univer s 2.5 mg 8-12 tablet by ity of tablet 00:00: mouth in [place] [address] the [facility] morning Branch and 1 tablet in the evening. Indication s: blood clot in a deep vein of the extremitie s apixaban 2-0 Yes 1473 2.5mg Take 1 Univer s 2.5 mg 8-12 tablet by ity of tablet 00:00: mouth in [place] [address] the [facility] morning Branch and 1 tablet in the evening. Indication s: blood clot in a deep vein of the extremitie s apixaban 2-0 Yes 1473 2.5mg Take 1 Univer s 2.5 mg 8-12 tablet by ity of tablet 00:00: mouth in [place] [address] the Medical morning Branch and 1 tablet in the evening. Indication s: blood clot in a deep vein of the extremitie s apixaban 2021-0 Yes 1473 2.5mg Take 1 Univer s 2.5 mg 8-12 tablet by ity of tablet 00:00: mouth in [place] [address] the [facility] and 1 tablet in the evening. Indication s: blood clot in a deep vein of the [facility] apixaban 2021-0 Yes 1473 2.5mg Take 1 Univer s 2.5 mg 8-12 tablet by ity of tablet 00:00: mouth in [place] [address] the [facility] and 1 tablet in the evening. Indication s: blood [facility] apixaban 2021- Yes 1473 2.5mg Take 1 Univer s 2.5 mg 8-12 tablet by ity of tablet 00:00: mouth in [address] and 1 tablet in the evening. Indication s: blood clot in a deep vein of the [facility] apixaban 2021- Yes 1473 2.5mg Take 1 Univer s 2.5 mg 8-12 tablet by ity of tablet 00:00: mouth in [address] and 1 tablet in the evening. Indication s: blood clot in a deep vein of the [facility] apixaban 2021- Yes 1473 2.5mg Take 1 Univer s 2.5 mg 8-12 tablet by ity of tablet 00:00: mouth in [address] and 1 tablet in the evening. Indication s: blood clot in a deep vein of the [facility] apixaban 2021- Yes 1473 2.5mg Take 1 [facility] s 2.5 mg 8-12 tablet by ity of tablet 00:00: mouth in [address] and 1 tablet in the evening. Indication s: blood clot in a deep vein of the [facility] apixaban 2021-0 Yes 1473 2.5mg Take 1 [facility]iver s 2.5 mg 8-12 tablet by ity of tablet 00:00: mouth in [address] and 1 tablet in the evening. Indication s: blood clot in a deep vein of the [facility] apixaban 2021-0 Yes 1473 2.5mg Take 1 [facility]iver s 2.5 mg 8-12 tablet by ity of tablet 00:00: mouth in [place] 00 the Medical morning Branch and 1 tablet in the evening. Indication s: blood clot in a deep vein of the extremitie s apixaban 2021-0 Yes 1473 2.5mg Take 1 Univer s 2.5 mg 8-12 tablet by ity of tablet 00:00: mouth in [place] 00 the [facility] morning Branch and 1 tablet in the evening. Indication s: blood clot in a deep vein of the extremitie s Amoxicillin Amoxicillin 0 2021- No 1{table BID Amoxicilli -Pot -Pot -02-14 t} n-Pot Clavulanate Clavulanate 00:00: 00:00 Clavulanat 875-125 MG 875-125 MG 00 :00 e 875-125 MG Amoxicillin Amoxicillin 2021-0 2021- No 1{table BID Amoxicilli -Pot -Pot -02-14 t} n-Pot Clavulanate Clavulanate 00:00: 00:00 Clavulanat 875-125 MG 875-125 MG 00 :00 e 875-125 MG Amoxicillin Amoxicillin 2021-0 2021- No 1{table BID Amoxicilli -Pot -Pot -02-14 t} n-Pot Clavulanate Clavulanate 00:00: 00:00 Clavulanat 875-125 MG 875-125 MG 00 :00 e 875-125 MG Sulfamethox Sulfamethox 2021-0 2- No 1{table BID Sulfametho azole-Trime azole-Trime 01-27 t} xazole-Tri thoprim thoprim 00:00: 00:00 methoprim 800-160 MG 800-160 MG 00 :00 800-160 MG Sulfamethox Sulfamethox 2021-0 2022- No 1{table BID Sulfametho azole-Trime azole-Trime 01-27 t} xazole-Tri thoprim thoprim 00:00: 00:00 methoprim 800-160 MG 800-160 MG 00 :00 800-160 MG traZODONE 2021-0 Yes 150mg Take 150 Uni vers 100 mg 7-25 mg by ity of tablet 15:36: mouth at [place] 37 bedtime. [facility] Branch HYDROmorphO 2022-0 Yes 2mg Take 2 [...] mouth ity of tablet 15:36: every 4 [place] 37 (four) Medical hours as Branch needed. [...] mouth ity of tablet 15:36: every 4 [place] 37 (four) Medical hours as Branch needed. [...] mouth ity of tablet 15:36: every 4 [place] 37 (four) Medical hours as Branch needed. [...] mouth ity of tablet 15:36: every 4 [place] 37 (four) Medical hours as Branch needed. Indication s: last taken ~2 wks ago allopurinoL 202-0 Yes 300mg Take 300 U nivers 300 [...] mouth ity of tablet 15:36: every 4 [place] 37 (four) Medical hours as Branch needed. [...] mouth ity of tablet 15:36: every 4 [place] 37 (four) Medical hours as Branch needed. [...] mouth [place] 37 daily. Medical Branch benzonatate 2021-0 Yes [id number] 100mg Take 1 Univers (TESSALON 5-12 capsule by ity of PERLES) 100 00:00: mouth [place] mg capsule 00 every 8 Medica l (eight) Branch hours as needed for Cough. benzonatate 2021-0 Yes [id number] 100mg Take 1 Univers (TESSALON 5-12 capsule by ity of PERLES) 100 00:00: mouth [place] mg capsule 00 every 8 Medica l (eight) Branch hours as needed for Cough. benzonatate 2021-0 Yes [id number] 100mg Take 1 Univers (TESSALON 5-12 capsule by ity of PERLES) 100 00:00: mouth [place] mg capsule 00 every 8 Medica l (eight) Branch hours as needed for Cough. benzonatate 2021-0 Yes [id number] 100mg Take 1 Univers (TESSALON 5-12 capsule by ity of PERLES) 100 00:00: mouth [place] mg capsule 00 every 8 Medica l (eight) Branch hours as needed for Cough. benzonatate 2021-0 Yes [id number] 100mg Take 1 Univers (TESSALON 5-12 capsule by ity of PERLES) 100 00:00: mouth [place] mg capsule 00 every 8 Medica l (eight) Branch hours as needed for Cough. benzonatate 2021-0 Yes [id number] 100mg Take 1 Univers (TESSALON 5-12 capsule by ity of PERLES) 100 00:00: mouth [place] mg capsule 00 every 8 Medica l (eight) Branch hours as needed for Cough. benzonatate 2021-0 Yes [id number] 100mg Take 1 Univers (TESSALON 5-12 capsule by ity of PERLES) 100 00:00: mouth [place] mg capsule 00 every 8 Medica l (eight) Branch hours as needed for Cough. benzonatate 2021-0 Yes [id number] 100mg Take 1 Univers (TESSALON 5-12 capsule by ity of PERLES) 100 00:00: mouth [place] mg capsule 00 every 8 Medica l (eight) Branch hours as needed for Cough. benzonatate 2021-0 Yes [id number] 100mg Take 1 Univers (TESSALON 5-12 capsule by ity of PERLES) 100 00:00: mouth [place] mg capsule 00 every 8 Medica l (eight) Branch hours as needed for Cough. benzonatate 2021-0 Yes [id number] 100mg Take 1 Univers (TESSALON 5-12 capsule by ity of PERLES) 100 00:00: mouth [place] mg capsule 00 every 8 Medica l (eight) Branch hours as needed for Cough. benzonatate 2021-0 Yes [id number] 100mg Take 1 Univers (TESSALON 5-12 capsule by ity of PERLES) 100 00:00: mouth [place] mg capsule 00 every 8 Medica l (eight) Branch hours as needed for Cough. benzonatate 2021-0 Yes [id number] 100mg Take 1 Univers (TESSALON 5-12 capsule by ity of PERLES) 100 00:00: mouth [place] mg capsule 00 every 8 Medica l (eight) Branch hours as needed for Cough. benzonatate 2021-0 Yes [id number] 100mg Take 1 Univers (TESSALON 5-12 capsule by ity of PERLES) 100 00:00: mouth [place] mg capsule 00 every 8 Medica l (eight) Branch hours as needed for Cough. benzonatate 2021-0 Yes [id number] 100mg Take 1 Univers (TESSALON 5-12 capsule by ity of PERLES) 100 00:00: mouth [place] mg capsule 00 every 8 Medica l (eight) Branch hours as needed for Cough. benzonatate 2021-0 Yes [id number] 100mg Take 1 Univers (TESSALON 5-12 capsule by ity of PERLES) 100 00:00: mouth [place] mg capsule 00 every 8 Medica l (eight) Branch hours as needed for Cough. benzonatate 2021-0 Yes [id number] 100mg Take 1 Univers (TESSALON 5-12 capsule by ity of PERLES) 100 00:00: mouth [place] mg capsule 00 every 8 Medica l (eight) Branch hours as needed for Cough. bumetanide 2021-0 Yes [id number] 3mg Take 1.5 Univers 2 mg tablet 4-25 02 tablets by it y of 00:00: mouth 2 [place] 00 (two) Medical times Branch daily. metoprolol Yes [id number] 25mg Take 1 U nivers succinate 4-25 tablet by ity o f XL 25 mg 24 00:00: mouth [place] hr tablet 00 daily. Medical Branch atorvastati Yes [id number] 20mg Take 1 Univers n 20 mg 4-25 tablet by ity of tablet 00:00: mouth [place] 00 daily. Medical Branch bumetanide Yes [id number] 3mg Take 1.5 Univers 2 mg tablet 4-25 02 tablets by it y of 00:00: mouth 2 [place] 00 (two) Medical times Branch daily. metoprolol Yes [id number] 25mg Take 1 U nivers succinate 4-25 tablet by ity o f XL 25 mg 24 00:00: mouth [place] hr tablet 00 daily. Medical Branch atorvastati Yes [id number] 20mg Take 1 Univers n 20 mg 4-25 tablet by ity of tablet 00:00: mouth [place] 00 daily. Medical Branch bumetanide Yes [id number] 3mg Take 1.5 Univers 2 mg tablet 4-25 02 tablets by it y of 00:00: mouth 2 [place] 00 (two) Medical times Branch daily. metoprolol Yes [id number] 25mg Take 1 U nivers succinate 4-25 tablet by ity o f XL 25 mg 24 00:00: mouth [place] hr tablet 00 daily. Medical Branch atorvastati Yes [id number] 20mg Take 1 Univers n 20 mg 4-25 tablet by ity of tablet 00:00: mouth [place] 00 daily. Medical Branch bumetanide Yes [id number] 3mg Take 1.5 Univers 2 mg tablet 4-25 02 tablets by it y of 00:00: mouth 2 [place] 00 (two) Medical times Branch daily. metoprolol Yes [id number] 25mg Take 1 U nivers succinate 4-25 tablet by ity o f XL 25 mg 24 00:00: mouth [place] hr tablet 00 daily. Medical Branch atorvastati Yes [id number] 20mg Take 1 Univers n 20 mg 4-25 tablet by ity of tablet 00:00: mouth [place] 00 daily. Medical Branch bumetanide Yes [id number] 3mg Take 1.5 Univers 2 mg tablet 4-25 02 tablets by it y of 00:00: mouth 2 [place] 00 (two) Medical times Branch daily. metoprolol Yes [id number] 25mg Take 1 U nivers succinate 4-25 tablet by ity o f XL 25 mg 24 00:00: mouth [place] hr tablet 00 daily. Medical Branch atorvastati Yes [id number] 20mg Take 1 [facility] n 20 mg 4-25 tablet by ity of tablet 00:00: mouth [place] 00 daily. Medical Branch bumetanide Yes [id number] 3mg Take 1.5 Univers 2 mg tablet 4-25 02 tablets by it y of 00:00: mouth 2 [place] 00 (two) Medical times Branch daily. metoprolol Yes [id number] 25mg Take 1 U nivers succinate 4-25 tablet by ity o f XL 25 mg 24 00:00: mouth [place] hr tablet 00 daily. Medical Branch atorvastati Yes [id number] 20mg Take 1 [facility] n 20 mg 4-25 tablet by ity of tablet 00:00: mouth [place] 00 daily. Medical Branch bumetanide Yes [id number] 3mg Take 1.5 Univers 2 mg tablet 4-25 02 tablets by it y of 00:00: mouth 2 [place] 00 (two) Medical times Branch daily. metoprolol Yes [id number] 25mg Take 1 U nivers succinate 4-25 tablet by ity o f XL 25 mg 24 00:00: mouth [place] hr tablet 00 daily. Medical Branch atorvastati Yes [id number] 20mg Take 1 [facility] n 20 mg 4-25 tablet by ity of tablet 00:00: mouth [place] 00 daily. Medical Branch bumetanide Yes [id number] 3mg Take 1.5 Univers 2 mg tablet 4-25 02 tablets by it y of 00:00: mouth 2 [place] 00 (two) Medical times Branch daily. metoprolol Yes [id number] 25mg Take 1 U nivers succinate 4-25 tablet by ity o f XL 25 mg 24 00:00: mouth [place] hr tablet 00 daily. Medical Branch atorvastati Yes [id number] 20mg Take 1 Univers n 20 mg 4-25 tablet by ity of tablet 00:00: mouth [place] 00 daily. Medical Branch bumetanide Yes [id number] 3mg Take 1.5 Univers 2 mg tablet 4-25 02 tablets by it y of 00:00: mouth 2 [place] 00 (two) Medical times Branch daily. metoprolol Yes [id number] 25mg Take 1 U nivers succinate 4-25 tablet by ity o f XL 25 mg 24 00:00: mouth [place] hr tablet 00 daily. Medical Branch atorvastati Yes [id number] 20mg Take 1 Univers n 20 mg 4-25 tablet by ity of tablet 00:00: mouth [place] 00 daily. Medical Branch bumetanide Yes [id number] 3mg Take 1.5 Univers 2 mg tablet 4-25 02 tablets by it y of 00:00: mouth 2 [place] 00 (two) Medical times Branch daily. metoprolol Yes [id number] 25mg Take 1 U nivers succinate 4-25 tablet by ity o f XL 25 mg 24 00:00: mouth [place] hr tablet 00 daily. Medical Branch atorvastati Yes [id number] 20mg Take 1 Univers n 20 mg 4-25 tablet by ity of tablet 00:00: mouth [place] 00 daily. Medical Branch bumetanide Yes [id number] 3mg Take 1.5 Univers 2 mg tablet 4-25 02 tablets by it y of 00:00: mouth 2 [place] 00 (two) Medical times Branch daily. metoprolol Yes [id number] 25mg Take 1 U nivers succinate 4-25 tablet by ity o f XL 25 mg 24 00:00: mouth [place] hr tablet 00 daily. Medical Branch atorvastati Yes [id number] 20mg Take 1 Univers n 20 mg 4-25 tablet by ity of tablet 00:00: mouth [place] 00 daily. Medical Branch bumetanide Yes [id number] 3mg Take 1.5 Univers 2 mg tablet 4-25 02 tablets by it y of 00:00: mouth 2 [place] 00 (two) Medical times Branch daily. metoprolol Yes [id number] 25mg Take 1 U nivers succinate 4-25 tablet by ity o f XL 25 mg 24 00:00: mouth [place] hr tablet 00 daily. Medical Branch atorvastati Yes [id number] 20mg Take 1 Univers n 20 mg 4-25 tablet by ity of tablet 00:00: mouth [place] 00 daily. Medical Branch bumetanide Yes [id number] 3mg Take 1.5 Univers 2 mg tablet 4-25 02 tablets by it y of 00:00: mouth 2 [place] 00 (two) Medical times Branch daily. metoprolol Yes [id number] 25mg Take 1 U nivers succinate 4-25 tablet by ity o f XL 25 mg 24 00:00: mouth [place] hr tablet 00 daily. Medical Branch atorvastati Yes [id number] 20mg Take 1 Univers n 20 mg 4-25 tablet by ity of tablet 00:00: mouth [place] 00 daily. Medical Branch bumetanide Yes [id number] 3mg Take 1.5 Univers 2 mg tablet 4-25 02 tablets by it y of 00:00: mouth 2 [place] 00 (two) Medical times Branch daily. metoprolol Yes [id number] 25mg Take 1 U nivers succinate 4-25 tablet by ity o f XL 25 mg 24 00:00: mouth [place] hr tablet 00 daily. Medical Branch atorvastati Yes [id number] 20mg Take 1 [facility] n 20 mg 4-25 tablet by ity of tablet 00:00: mouth [place] 00 daily. Medical Branch bumetanide Yes [id number] 3mg Take 1.5 [facility] 2 mg tablet 4-25 02 tablets by it y of 00:00: mouth 2 [place] 00 (two) Medical times Branch daily. metoprolol Yes [id number] 25mg Take 1 U nivers succinate 4-25 tablet by ity o f XL 25 mg 24 00:00: mouth [place] hr tablet 00 daily. Medical Branch atorvastati Yes [id number] 20mg Take 1 Univers n 20 mg 4-25 tablet by ity of tablet 00:00: mouth [place] 00 daily. Medical Branch bumetanide 2021-0 Yes [id number] 3mg Take 1.5 Univers 2 mg tablet 4-25 02 tablets by it y of 00:00: mouth 2 [place] 00 (two) Medical times Branch daily. metoprolol 2021-0 Yes [id number] 25mg Take 1 U nivers succinate 4-25 tablet by ity o f XL 25 mg 24 00:00: mouth [place] hr tablet 00 daily. Medical Branch atorvastati 2021-0 Yes [id number] 20mg Take 1 Univers n 20 mg 4-25 tablet by ity of tablet 00:00: mouth [place] 00 daily. Medical Branch methocarbam 2021-0 Yes 750mg Take 750 U nivers ol 2-28 mg by ity of (ROBAXIN) 14:01: mouth 3 [place] 750 mg 43 (three) Medical tablet times Branch daily as needed. methocarbam 2021-0 Yes 750mg Take 750 U nivers ol 2-28 mg by ity of (ROBAXIN) 14:01: mouth 3 [place] 750 mg 43 (three) Medical tablet times Branch daily as needed. methocarbam 2021-0 Yes 750mg Take 750 U nivers ol 2-28 mg by ity of (ROBAXIN) 14:01: mouth 3 [place] 750 mg 43 (three) Medical tablet times Branch daily as needed. methocarbam 2021-0 Yes 750mg Take 750 U nivers ol 2-28 mg by ity of (ROBAXIN) 14:01: mouth 3 [place] 750 mg 43 (three) Medical tablet times Branch daily as needed. methocarbam 2021-0 Yes 750mg Take 750 U nivers ol [...] tablet times Branch daily as needed. fluticasone 2021-0 Yes [id number] 1{puff} Inhale 1 Univers -umeclidin- 2-11 Puff ity of vilanter 00:00: daily. [place] (TRELEGY 00 Medical ELLIPTA) Branch 100-62.5-25 mcg DsDv albuterol 2021-0 Yes [id number] 2{puff} Inhale 2 Univers 90 2-11 Puffs ity of mcg/actuati 00:00: every 6 [place] as on inhaler 00 (six) Medical hours as Branch needed for Wheezing or Shortness of Breath. fluticasone 0 Yes [id number] 1{puff} Inhale 1 Univers -umeclidin- 2-11 Puff ity of vilanter 00:00: daily. [place] ([address]) Branch 100-62.5-25 mcg DsDv albuterol Yes [id number] 2{puff} Inhale 2 Univers 90 2-11 Puffs ity of mcg/actuati 00:00: every 6 [place] as on inhaler 00 (six) Medical hours as Branch needed for Wheezing or Shortness of Breath. fluticasone 0 Yes [id number] 1{puff} Inhale 1 Univers -umeclidin- 2-11 Puff ity of vilanter 00:00: daily. [place] ([address]) Branch 100-62.5-25 mcg DsDv albuterol 0 Yes [id number] 2{puff} Inhale 2 Univers 90 2-11 Puffs ity of mcg/actuati 00:00: every 6 [place] inhaler 00 (six) Medical hours as Branch needed for Wheezing or Shortness of Breath. fluticasone 0 Yes [id number] 1{puff} Inhale 1 Univers -umeclidin- 2-11 Puff ity of vilanter 00:00: daily. [place] ([address]) Branch 100-62.5-25 mcg DsDv albuterol 0 Yes [id number] 2{puff} Inhale 2 Univers 90 2-11 Puffs ity of mcg/actuati 00:00: every 6 [place] inhaler 00 (six) Medical hours as Branch needed for Wheezing or Shortness of Breath. fluticasone 2021-0 Yes [id number] 1{puff} Inhale 1 Univers -umeclidin- 2-11 Puff ity of vilanter 00:00: daily. [place] ([address]) Branch 100-62.5-25 mcg DsDv albuterol 2021-0 Yes [id number] 2{puff} Inhale 2 Univers 90 2-11 Puffs ity of mcg/actuati 00:00: every 6 [place] on inhaler 00 (six) Medical hours as Branch needed for Wheezing or Shortness of Breath. fluticasone 0 Yes [id number] 1{puff} Inhale 1 Univers -umeclidin- 2-11 Puff ity of vilanter 00:00: daily. [place] ([address]) Branch 100-62.5-25 mcg DsDv albuterol Yes [id number] 2{puff} Inhale 2 Univers 90 2-11 Puffs ity of mcg/actuati 00:00: every 6 [place] as on inhaler 00 (six) Medical hours as Branch needed for Wheezing or Shortness of Breath. fluticasone 0 Yes [id number] 1{puff} Inhale 1 Univers -umeclidin- 2-11 Puff ity of vilanter 00:00: daily. [place] ([address]) Branch 100-62.5-25 mcg DsDv albuterol 0 Yes [id number] 2{puff} Inhale 2 Univers 90 2-11 Puffs ity of mcg/actuati 00:00: every 6 [place] as on inhaler 00 (six) Medical hours as Branch needed for Wheezing or Shortness of Breath. fluticasone 0 Yes [id number] 1{puff} Inhale 1 Univers -umeclidin- 2-11 Puff ity of vilanter 00:00: daily. [place] ([address]) Branch 100-62.5-25 mcg DsDv albuterol 0 Yes [id number] 2{puff} Inhale 2 Univers 90 2-11 Puffs ity of mcg/actuati 00:00: every 6 [place] on inhaler 00 (six) Medical hours as Branch needed for Wheezing or Shortness of Breath. fluticasone 2021-0 Yes [id number] 1{puff} Inhale 1 Univers -umeclidin- 2-11 Puff ity of vilanter 00:00: daily. [place] ([address]) Branch 100-62.5-25 mcg DsDv albuterol 2021-0 Yes [id number] 2{puff} Inhale 2 Univers 90 2-11 Puffs ity of mcg/actuati 00:00: every 6 [place] as on inhaler 00 (six) Medical hours as Branch needed for Wheezing or Shortness of Breath. fluticasone 0 Yes [id number] 1{puff} Inhale 1 [facility] -umeclidin- 2-11 Puff ity of vilanter 00:00: daily. [place] ([address]) Branch 100-62.5-25 mcg DsDv albuterol Yes [id number] 2{puff} Inhale 2 Univers 90 2-11 Puffs ity of mcg/actuati 00:00: every 6 [place] on inhaler 00 (six) Medical hours as Branch needed for Wheezing or Shortness of Breath. fluticasone 0 Yes [id number] 1{puff} Inhale 1 Univers -umeclidin- 2-11 Puff ity of vilanter 00:00: daily. [place] ([address]) Branch 100-62.5-25 mcg DsDv albuterol 0 Yes [id number] 2{puff} Inhale 2 Univers 90 2-11 Puffs ity of mcg/actuati 00:00: every 6 [place] on inhaler 00 (six) Medical hours as Branch needed for Wheezing or Shortness of Breath. fluticasone 0 Yes [id number] 1{puff} Inhale 1 Univers -umeclidin- 2-11 Puff ity of vilanter 00:00: daily. [place] ([address]) Branch 100-62.5-25 mcg DsDv albuterol 0 Yes [id number] 2{puff} Inhale 2 Univers 90 2-11 Puffs ity of mcg/actuati 00:00: every 6 [place] as on inhaler 00 (six) Medical hours as Branch needed for Wheezing or Shortness of Breath. fluticasone 2021-0 Yes [id number] 1{puff} Inhale 1 [facility] -umeclidin- 2-11 Puff ity of vilanter 00:00: daily. [place] ([address]) Branch 100-62.5-25 mcg DsDv albuterol 2021-0 Yes [id number] 2{puff} Inhale 2 Univers 90 2-11 Puffs ity of mcg/actuati 00:00: every 6 [place] as on inhaler 00 (six) Medical hours as Branch needed for Wheezing or Shortness of Breath. fluticasone Yes [id number] 1{puff} Inhale 1 [facility] -umeclidin- 2-11 Puff ity of vilanter 00:00: daily. [place] ([address] ELLIP) Branch 100-62.5-25 mcg DsDv albuterol Yes [id number] 2{puff} Inhale 2 [facility] 90 2-11 Puffs ity of mcg/actuati 00:00: every 6 [place] as on inhaler 00 (six) Medical hours as Branch needed for Wheezing or Shortness of Breath. fluticasone Yes [id number] 1{puff} Inhale 1 [facility] -umeclidin- 2-11 Puff ity of vilanter 00:00: daily. [place] ([address]) Branch 100-62.5-25 mcg DsDv albuterol Yes [id number] 2{puff} Inhale 2 Univers 90 2-11 Puffs ity of mcg/actuati 00:00: every 6 [place] as on inhaler 00 (six) Medical hours as Branch needed for Wheezing or Shortness of Breath. fluticasone Yes [id number] 1{puff} Inhale 1 Univers -umeclidin- 2-11 Puff ity of vilanter 00:00: daily. [place] ([address]) Branch 100-62.5-25 mcg DsDv albuterol Yes [id number] 2{puff} Inhale 2 [facility] 90 2-11 Puffs ity of mcg/actuati 00:00: every 6 [place] as on inhaler 00 (six) Medical hours as Branch needed for Wheezing or Shortness of Breath. apixaban 2020-07 Yes [id number] 2.5mg Take 1 Un[facility] s 2.5 mg 2-08 tablet by ity of tablet 00:00: mouth 2 [place] 00 (two) Medical times Branch daily. Indication s: blood clot in a deep vein of the extremitie s apixaban 2020-07 Yes [id number] 2.5mg Take 1 Univer s 2.5 mg 2-08 tablet by ity of tablet 00:00: mouth 2 00 (two) Medical times Branch daily. Indication [...] Medical times Branch daily. spironolact 2020-07 Yes [id number] 25mg Take 1 [facility] one 25 mg 1-10 tablet by ity o f tablet 00:00: mouth [place] 00 daily. Medical Branch KCL 20 mEq 2020-07 Yes 20meq Take 1 Univ ers tablet 1-10 tablet by ity of 00:00: mouth 2 00 (two) Medical times Branch daily. spironolact 2020-07 Yes [id number] 25mg Take 1 [facility] one 25 mg 1-10 tablet by ity o f tablet 00:00: mouth [place] 00 daily. Medical Branch KCL 20 mEq 2020-07 Yes 20meq Take 1 Univ ers tablet 1-10 tablet by ity of 00:00: mouth 2 00 (two) Medical times Branch daily. spironolact 2020-07 Yes [id number] 25mg Take 1 [facility] one 25 mg 1-10 tablet by ity o f tablet 00:00: mouth [place] 00 daily. Medical Branch spironolact 2020-07 Yes [id number] 25mg Take 1 [facility] one 25 mg 1-10 tablet by ity o f tablet 00:00: mouth [place] 00 daily. Medical Branch spironolact 2020-07- No [id number] 25mg Take 1 [facility] one 25 mg 1-10 10-11 tablet by ity of tablet 00:00: 00:00 mouth [place] 00 :00 daily. Medical Branch KCL 20 mEq 2020-07- No 20meq Take 1 Uni vers tablet 1-10 08-22 tablet by ity of 00:00: 00:00 mouth 2 [place] 00 :00 (two) Medical times Branch daily. Nystatin Nystatin 2020-07- No 1{appli Nystatin [id number] 0-29 11-11 cation} [id number] UNIT/GM UNIT/GM 00:00: 00:00 UNIT/GM 00 :00 [...] as_need 00 ed} Valtrex 1 Valtrex 1 2020- No 1{table TID GM GM 5-25 06-01 t} 00:00: 00:00 00 :00 Valtrex 1 Valtrex 1 2020- No 1{table TID Valtrex 1 GM GM 525 12-01 t} GM 00:00: 00:00 00 :00 Omeprazole Omeprazole 2020-0 Yes Josiane 1 capsule Common 03-05 [place] 30 minutes Spirit 00:00: before - [facility] 00 morning [facility] Colchicine Colchicine 2020-0 No QD Colchicine 0.6 [...] MG 4-17 0.6 MG 00:: Colchicine Colchicine 2019-0 No QD Colchicine 0.6 MG 0.6 MG 4-17 0.6 MG 00:: Colchicine Colchicine 2019-0 No QD Col[place] 0.6 MG 0.6 MG 4-17 0.6 MG 00:: Colchicine Colchicine 2019-0 No QD Colchicine 0.6 MG 0.6 MG 4-17 0.6 MG 00:: Colchicine Colchicine 2019-0 No QD Col[place]icine 0.6 MG 0.6 MG 4-17 0.6 MG 00:: Colchicine Colchicine 2019-0 No QD [place] 0.6 MG 0.6 MG 4-17 0.6 MG 00:: Colchicine Colchicine 2019-0 No QD Colchicine 0.6 MG 0.6 MG 4-17 0.6 MG 00:: Colchicine Colchicine 2019-0 No QD Col[place] 0.6 MG 0.6 MG 4-17 0.6 MG 00: Colchicine Colchicine 2019-0 No QD Colchicine 0.6 MG 0.6 MG 4-17 0.6 MG 00: Colchicine Colchicine 2019-0 No QD [place] 0.6 MG 0.6 MG 4-17 0.6 MG 00:: Colchicine Colchicine 2019-0 No QD [place] 0.6 MG 0.6 MG 4-17 0.6 MG 00: Colchicine Colchicine 2019-0 No QD Col[place] 0.6 MG 0.6 MG 4-17 0.6 MG 00:: Colchicine Colchicine 2019-0 No QD Col[place] 0.6 MG 0.6 MG 4-17 0.6 MG 00:00: Colchicine Colchicine 2019-0 No QD Colchicine 0.6 MG 0.6 MG 4-17 0.6 MG 00:00: 00 benzonatate 2020-0 Yes [id number] 100mg Take 1 [facility] 100 mg 2-28 capsule by ity of capsule 00:00: mouth 3 (three) Medical times Branch daily as needed for Cough. benzonatate 2019-0 Yes [id number] 100mg Take 1 [facility] 100 mg 2-28 capsule by ity of capsule 00:00: mouth 3 (three) Medical times Branch daily as needed for Cough. benzonatate 2019-0 Yes [id number] 100mg Take 1 [facility] 100 mg 2-28 capsule by ity of capsule 00:00: mouth 3 (three) Medical times Branch daily as needed for Cough. benzonatate 2020-0 Yes [id number] 100mg Take 1 [facility] 100 mg 2-28 capsule by ity of capsule 00:00: mouth (three) Medical times Branch daily as needed for Cough. benzonatate 2020-0 Yes [id number] 100mg Take 1 [facility] 100 mg 2-28 capsule by ity of capsule 00:00: mouth (three) Medical times Branch daily as needed for Cough. benzonatate 2020-0 Yes [id number] 100mg Take 1 [facility] 100 mg 2-28 capsule by ity of capsule 00:00: mouth (three) Medical times Branch daily as needed for Cough. benzonatate 2020-0 Yes [id number] 100mg Take 1 [facility] 100 mg 2-28 capsule by ity of capsule 00:00: mouth (three) Medical times Branch daily as needed for Cough. benzonatate 2020-0 Yes [id number] 100mg Take 1 [facility] 100 mg 2-28 capsule by ity of capsule 00:00: mouth (three) Medical times Branch daily as needed for Cough. benzonatate 2020-0 Yes [id number] 100mg Take 1 [facility] 100 mg 2-28 capsule by ity of capsule 00:00: mouth (three) Medical times Branch daily as needed for Cough. benzonatate 2020-0 Yes [id number] 100mg Take 1 [facility] 100 mg 2-28 capsule by ity of capsule 00:00: mouth (three) Medical times Branch daily as needed for Cough. benzonatate 2020-0 Yes [id number] 100mg Take 1 [facility] 100 mg 2-28 capsule by ity of capsule 00:00: mouth (three) Medical times Branch daily as needed for Cough. benzonatate 2020-0 Yes [id number] 100mg Take 1 [facility] 100 mg 2-28 capsule by ity of capsule 00:00: mouth (three) Medical times Branch daily as needed for Cough. benzonatate 2020-0 Yes [id number] 100mg Take 1 [facility] 100 mg 2-28 capsule by ity of capsule 00:00: mouth (three) Medical times Branch daily as needed for Cough. benzonatate 2020-0 Yes [id number] 100mg Take 1 [facility] 100 mg 2-28 capsule by ity of capsule 00:00: mouth 3 [place] 00 (three) Medical times Branch daily as needed for Cough. benzonatate 2020-0 Yes [id number] 100mg Take 1 [facility] 100 mg 2-28 capsule by ity of capsule 00:00: mouth 3 [place] 00 (three) Medical times Branch daily as needed for Cough. benzonatate 2020-0 Yes [id number] 100mg Take 1 [facility] 100 mg 2-28 [...] Base) MCG/ACT MCG/ACT 00 MCG/ACT Ventolin Ventolin 20190 No 2{puffs QID Ventolin HFA 108 (90 HFA 108 (90 5-29 _as_nee HFA 108 Base) Base) 00:00: ded} (90 Base) MCG/ACT MCG/ACT 00 MCG/ACT Ventolin Ventolin 2019 No 2{puffs QID Ventolin HFA 108 (90 HFA 108 (90 5-29 _as_nee HFA 108 Base) Base) 00:00: ded} (90 Base) MCG/ACT MCG/ACT 00 MCG/ACT Ventolin Ventolin 20190 No 2{puffs QID Ventolin HFA 108 (90 [...] Base) MCG/ACT MCG/ACT 00 MCG/ACT Ventolin Ventolin 20190 No 2{puffs QID Ventolin HFA 108 (90 HFA 108 (90 5-29 _as_nee HFA 108 Base) Base) 00:00: ded} (90 Base) MCG/ACT MCG/ACT 00 MCG/ACT DULoxetine 2017-0 Yes TAKE ONE Uni vers 60 mg 7-06 CAPSULE BY ity of capsule 00:00: MOUTH [place] [id number] EVERY DAY Medical Branch DULoxetine 2017-0 Yes TAKE ONE Uni vers 60 mg 7-06 CAPSULE BY ity of capsule 00:00: MOUTH [place] 00 EVERY DAY Medical Branch DULoxetine 2018-0 Yes TAKE ONE Uni vers 60 mg 7-06 CAPSULE BY ity of capsule 00:00: MOUTH [place] 00 EVERY DAY Medical Branch DULoxetine 2017-0 [...] MOUTH 00 EVERY DAY Medical Branch DULoxetine 2017- Yes TAKE ONE Uni vers 60 mg 7-06 CAPSULE BY ity of capsule 00:00: MOUTH 00 EVERY DAY Medical Branch DULoxetine 2017- Yes TAKE ONE Uni vers 60 mg [...] MOUTH 00 EVERY DAY Medical Branch DULoxetine 2018-0 Yes TAKE ONE Uni vers 60 mg [...] MOUTH 00 EVERY DAY Medical Branch naproxen 2017-0 Yes 500mg Take 1 Univer s 500 [...] (Same as: l 15:57: Ativan) [place] 00 Ativan 2015-07 No Notes: Memoria 0-05 [...] Route: PO, l MEQ 14:00: Drug form: [place] Extended 00 ERTAB, Release Daily, Tablet Dosing [...] chloride 0-05 (Same as: l 12:00: KCL) [place] 00 Infuse over 2 hours. potassium 2015-07 No Notes: Memori a chloride 0-05 (Same as: l 12:00: KCL) [place] 00 Infuse over 2 hours. potassium 2015-07 No Notes: Memori a chloride 0-05 (Same as: l 12:00: KCL) [place] 00 Infuse over 2 hours. potassium 2015-07 No Notes: Memori a chloride 0-05 (Same as: l 12:00: KCL) [place] 00 Infuse over 2 hours. Furosemide 2015-07 Yes 20 mg = 1 Me moria 20 MG Oral 0-05 tab, PO, l Tablet 11:52: Daily, # [place] 00 60 tab, 0 Refill(s) Potassium 2015-07 Yes 40 mEq = 2 Me moria Chloride 20 0-05 tab, PO, l MEQ 11:52: BID, # 60 [place] Extended 00 tab, 0 Release Refill(s) Tablet Furosemide 2015-07 Yes 20 mg = 1 Me moria 20 MG Oral 0-05 tab, PO, l Tablet 11:52: Daily, # [place] 00 60 tab, 0 Refill(s) Potassium 2015-07 Yes 40 mEq = 2 Me moria Chloride 20 0-05 tab, PO, l MEQ 11:52: BID, # 60 [place] Extended 00 tab, 0 Release Refill(s) Tablet [...] tab, PO, l Tablet 11:52: Daily, # [place] 00 60 tab, 0 Refill(s) Potassium 2015-07 [...] PO, l MEQ 11:52: BID, # 60 [place] Extended 00 tab, 0 Release Refill(s) Tablet [...] chloride 0-05 (Same as: l 11:00: KCL) [place] 00 Infuse over 2 hours. potassium 2015-07 No Notes: Memori a chloride 0-05 (Same as: l 11:00: KCL) [place] 00 Infuse over 2 hours. potassium 2015-07 No Notes: Memori a chloride 0-05 (Same as: l 11:00: KCL) [place] 00 Infuse over 2 hours. celecoxib 2015-07 [...] 0-04 tab, l MEQ 16:43: Route: PO, [place] Extended 00 Drug form: Release ERTAB, Tablet [...] 0-04 tab, l MEQ 16:43: Route: PO, [place] Extended 00 Drug form: Release ERTAB, Tablet [...] day, Stop date: 05/05/16 9:00:00 CDT Furosemide 2015-1 No 20 mg, Memor ia 20 MG Oral 0-04 Route: PO, l Tablet 16:43: Drug form: Emgan nn [Lasix] 00 TAB, Daily, Dosing Weight 90.909, kg, Priority: NOW, Start date: 04/05/16 11:43:00 CDT, Duration: 30 day, Stop date: 05/05/16 9:00:00 CDT Potassium 2015- No 20 mEq, 1 Mem oria Chloride 20 0-04 tab, l MEQ 16:43: Route: PO, [place] Extended 00 Drug form: Release ERTAB, Tablet [...] 0-04 tab, l MEQ 16:43: Route: PO, [place] Extended 00 Drug form: Release ERTAB, Tablet [...] 0-04 (Same as: l 14:00: K-Dur 20) [place] 00 "Do Not Crush" With food and full glass of water potassium 2015-07 No Notes: Memori a chloride 0-04 (Same as: l 14:00: K-Dur 20) [place] 00 "Do Not Crush" With food and full glass of water potassium 2015-07 No Notes: Memori a chloride 0-04 (Same as: l 14:00: K-Dur 20) [place] 00 "Do Not Crush" With food and full glass of water potassium 2015-07 No Notes: Memori a chloride 0-04 (Same as: l 14:00: K-Dur 20) [place] 00 "Do Not Crush" With food and full glass of water potassium 2015-07 No Notes: Memori a chloride 0-04 (Same as: l 14:00: K-Dur 20) [place] 00 "Do Not Crush" With food and full glass of water potassium 2015-07 No Notes: Memori a chloride 0-04 (Same as: l 08:24: KCL) [place] 00 Infuse over 2 hours. potassium 2015-07 [...] chloride 0-04 (Same as: l 08:24: KCL) [place] 00 Infuse over 2 hours. Lasix 2015-07 No Notes: Memoria 0-03 (Same as: l 22:00: Lasix) [place] 00 MEDICATION WASTE Product Size: 40 mg Product Wasted: ___ mg Lasix 2015-07 No Notes: Memoria 0-03 (Same as: l 22:00: Lasix) [place] 00 MEDICATION WASTE Product Size: 40 mg [...] Memoria 0-03 (Same as: l 22:00: Lasix) [place] 00 MEDICATION WASTE Product Size: 40 mg [...] a 0-03 (Same as: l 19:50: Visipaque) [place] 00 . WASTE: F/P - Black; E [...] 0-03 (Same as: l / 17:54: Duoneb) [place] Ipratropium 00 [place] 0.167 MG/ML Inhalant Solution [DuoNeb] Albuterol 2015-07 No Notes: Memori a 0.833 MG/ML 0-03 (Same as: l :54: Duoneb) [place] Ipratropium 00 [place] 0.167 MG/ML Inhalant Solution [DuoNeb] Albuterol 2015-07 No Notes: Memori a 0.833 MG/ML 0-03 (Same as: l 17:54: Duoneb) [place] Ipratropium 00 [place] 0.167 MG/ML Inhalant Solution [DuoNeb] Albuterol 2015-07 No Notes: Memori a 0.833 MG/ML 0-03 (Same as: l :54: Duoneb) [place] Ipratropium 00 [place] 0.167 MG/ML Inhalant Solution [DuoNeb] Albuterol 2015-07 No Notes: Memori a 0.833 MG/ML 0-03 (Same as: l :54: Duoneb) [place] Ipratropium 00 [place] 0.167 MG/ML Inhalant Solution [DuoNeb] Albuterol 2015-07 No Notes: Memori a 0.833 MG/ML 0-03 (Same as: l :54: Duoneb) [place] Ipratropium 00 [place] 0.167 MG/ML Inhalant Solution [DuoNeb] Acetaminoph 2015-07 No Notes: Do M emoria en 325 MG / 0-03 not exceed l Hydrocodone 16:53: 4gm/day of [place] Bitartrate 00 acetaminop 10 MG Oral hen. (Same Tablet as: [place] [[place] 325/10) ] Acetaminoph 2015-07 No Notes: Do M emoria en 325 MG / 0-03 not exceed l Hydrocodone 16:53: 4gm/day of [place] Bitartrate 00 acetaminop 10 MG Oral hen. (Same Tablet as: [place] [[place] 325/10) 325] Acetaminoph 2015-07 No Notes: Do M emoria en 325 MG / 0-03 not exceed l Hydrocodone 16:53: 4gm/day of [place] Bitartrate 00 acetaminop 10 MG Oral hen. (Same Tablet as: [place] [[place] 325/10) 325] Acetaminoph 2015-07 No Notes: Do M emoria en 325 MG / 0-03 not exceed l Hydrocodone 16:53: 4gm/day of [place] Bitartrate 00 acetaminop 10 MG Oral hen. (Same Tablet as: [place] [[place] 325/10) ] Acetaminoph 2015-07 No Notes: Do M emoria en 325 MG / 0-03 not exceed l Hydrocodone 16:53: 4gm/day of [place] Bitartrate 00 acetaminop 10 MG Oral hen. (Same Tablet as: [place] [[place] 325/10) ] Acetaminoph 2015-07 No Notes: Do M emoria en 325 MG / 0-03 not exceed l Hydrocodone 16:53: 4gm/day of [place] Bitartrate 00 acetaminop 10 MG Oral hen. (Same Tablet as: [place] [[place] 325/10) 325] Ativan 2015-07 No Notes: Memoria 0-03 (Same as: l 16:34: Ativan) [place] 00 Ativan 2015-07 No Notes: Memoria 0-03 (Same as: l 16:34: Ativan) [place] 00 Ativan 2015-07 No Notes: Memoria 0-03 (Same as: l 16:34: Ativan) [place] 00 Ativan 2015-07 No Notes: Memoria 0-03 (Same as: l 16:34: Ativan) [place] 00 Ativan 2015-07 No Notes: Memoria 0-03 (Same as: l 16:34: Ativan) [place] 00 Ativan 2015-07 No Notes: Memoria 0-03 (Same as: l 16:34: Ativan) [place] 00 Robaxin 2015-07 No Notes: Memoria 0-03 (Same l 14:00: as:Robaxin [place] 00 ) Robaxin 2015-07 No Notes: Memoria 0-03 (Same l 14:00: as:Robaxin [place] 00 ) Robaxin 2015-07 No Notes: Memoria 0-03 (Same l 14:00: as:Robaxin [place] 00 ) Robaxin 2015-07 No Notes: Memoria 0-03 (Same l 14:00: as:Robaxin [place] 00 ) Robaxin 2015-07 No Notes: Memoria 0-03 (Same l 14:00: as:Robaxin [place] 00 ) Robaxin 2015-07 No Notes: Memoria 0-03 (Same l 14:00: as:Robaxin [place] 00 ) tramadol 2015-07 Yes 50 mg = [...] tablet 10:33: QID, X 30 H ermann day, # 120 tab, 0 Refill(s) tramadol [...] day, # 42 tab, 0 Refill(s) senna 8.2015-07 Yes 8.6 mg = 1 Me moria [...] day, # 42 tab, 0 Refill(s) senna 8.2015-07 Yes 8.6 mg = 1 Me moria [...] not exceed l Hydrocodone 10:31: 4gm/day of [place] Bitartrate 00 acetaminop 10 MG Oral hen. (Same Tablet as: [place] [[place] 325/10) 10/325] tramadol 2015-07 No Notes: Not Mem oria hydrochlori 0-03 to exceed l de 50 MG 10:31: 400mg/day. Her reed Oral Tablet 00 (Same As: [Ultram] Ultram) Acetaminoph 2015-07 No Notes: Do M emoria en 325 MG / 0-03 not exceed l Hydrocodone 10:31: 4gm/day of [place] Bitartrate 00 acetaminop 10 MG Oral hen. (Same Tablet as: [place] [[place] 325/10) 10/325] tramadol 2015-07 No Notes: Not Mem oria hydrochlori 0-03 to exceed l de 50 MG 10:31: 400mg/day. Her reed Oral Tablet 00 (Same As: [Ultram] Ultram) Acetaminoph 2015-07 No Notes: Do M emoria en 325 MG / 0-03 not exceed l Hydrocodone 10:31: 4gm/day of [place] Bitartrate 00 acetaminop 10 MG Oral hen. (Same Tablet as: [place] [[place] 325/10) [address]] tramadol 2015-07 No Notes: Not Mem oria hydrochlori 0-03 to exceed l de 50 MG 10:31: 400mg/day. Her reed Oral Tablet 00 (Same As: [Ultram] Ultram) Acetaminoph 2015-07 No Notes: Do M emoria en 325 MG / 0-03 not exceed l Hydrocodone 10:31: 4gm/day of [place] Bitartrate 00 acetaminop 10 MG Oral hen. (Same Tablet as: [place] [[place] 325/10) [address]] tramadol 2015-07 No Notes: Not Mem oria hydrochlori 0-03 to exceed l de 50 MG 10:31: 400mg/day. Her reed Oral Tablet 00 (Same As: [Ultram] Ultram) Acetaminoph 2015-07 No Notes: Do M emoria en 325 MG / 0-03 not exceed l Hydrocodone 10:31: 4gm/day of [place] Bitartrate 00 acetaminop 10 MG Oral hen. (Same Tablet as: [place] [[place] 325/10) 10325] tramadol 2015-07 No Notes: Not Mem oria hydrochlori 0-03 to exceed l de 50 MG 10:31: 400mg/day. Her reed Oral Tablet 00 (Same As: [Ultram] Ultram) Acetaminoph 2015-07 No Notes: Do M emoria en 325 MG / 0-03 not exceed l Hydrocodone 10:31: 4gm/day of [place] Bitartrate 00 acetaminop 10 MG Oral hen. (Same Tablet as: [place] [[place] 325/10) 10325] tramadol 2015-07 No Notes: Not [...] patch 0-03 Remove l 02:00: patch 12 [place] 00 hours after applicatio n each day. remove 2015-07 No Notes: Memoria patch 0-03 Remove l 02:00: patch 12 [place] 00 hours after applicatio n each day. [...] Notes: Memoria 0-01 Chlorasept l 15:30: ic [place] 00 (Same as: Chlorasept ic, Sore Throat [place]) WASTE: F/P - Black; E - Municipal Trash Bin phenol 2015-07 No Notes: Memoria 0-01 Chlorasept l 15:30: ic [place] 00 (Same as: Chlorasept ic, Sore Throat [place]) WASTE: F/P - Black; E - Municipal Trash Bin phenol 2015-07 No Notes: Memoria 0-01 Chlorasept l 15:30: ic [place] 00 (Same as: Chlorasept ic, Sore Throat [place]) WASTE: F/P - Black; E - Municipal Trash Bin phenol 2015-07 No Notes: Memoria 0-01 Chlorasept l 15:30: ic [place] 00 (Same as: Chlorasept ic, Sore Throat [place]) WASTE: F/P - Black; E - Municipal Trash Bin phenol 2015-07 No Notes: Memoria 0-01 Chlorasept l 15:30: ic [place] 00 (Same as: Chlorasept ic, Sore Throat [place]) WASTE: F/P - Black; E - Municipal Trash Bin phenol 2015-07 No Notes: Memoria 0-01 Chlorasept l 15:30: ic [place] (Same as: Chlorasept ic, Sore Throat [place]) WASTE: F/P - Black; E - Municipal Trash Bin Prinivil 2015-07 No Notes: Memoria 0-01 (Same as: l 14:00: Prinivil, [place] 00 Zestril) atorvastati 2015-07 No Notes: Manjinder nasir n 0-01 (Same As: l 14:00: Lipitor) [place] 00 MaxEPA 2015-07 No Notes: Memoria 0-01 (Same as: l 14:00: MaxEPA, [place] 00 [place] 3 fish oil ) Non-Formul carisa Drug [...] Memoria 0-01 (Same as: l 14:00: MaxEPA, [place] 3 fish oil ) Non-Formul carisa Drug [...] Memoria 0-01 (Same as: l 14:00: MaxEPA, [place] 3 fish oil ) Non-Formul carisa Drug Microzide 2015-07 No Notes: Memori a 0-01 (Same as: l 14:00: Microzide) [place] influenza 2015-07 No Notes: Memori a virus [...] Trash Bin Hydrochloro 2015-07 No 1 tab, Manjidner nasir thiazide 0- Route: PO, l 12.5 [...] ia 0-01 (Same as: l 14:00: Prozac, [place] 00 Sarafem) Fenofibrate 2015-07 No Notes: Manjinder nasir 145 MG Oral 0-01 (Same as: l Tablet 14:00: Tricor) Prinivil 2015-07 No Notes: Memoria 0-01 (Same as: l 14:00: Prinivil, 00 Zestril) atorvastati 2015-07 No Notes: Manjinder nasir n 0-01 (Same As: l 14:00: Lipitor) MaxEPA 2015-07 No Notes: Memoria 0-01 (Same as: l 14:00: MaxEPA, [place] 00 [place] 3 fish oil ) Non-Formul carisa Drug [...] Memoria 0-01 (Same as: l 14:00: MaxEPA, [place] 3 fish oil ) Non-Formul carisa Drug [...] Black; E - Municipal Trash Bin Hydrochloro 2016-1 No 1 tab, Manjinder nasir thiazide 0-01 Route: PO, l 12.5 MG / 14:00: Drug Form: Luther hernandez Lisinopril TAB, 20 MG Oral Dosing Tablet Weight [...] Memoria 0-01 (Same as: l 14:00: MaxEPA, [place] 3 fish oil ) Non-Formul carisa Drug [...] not exceed l Hydrocodone 11:40: 4gm/day of [place] Bitartrate 00 acetaminop 10 MG Oral hen. (Same Tablet as: [place] [[place] 325/10) ] Acetaminoph 2015-07 No Notes: Do M emoria en 325 MG / 0-01 not exceed l Hydrocodone 11:40: 4gm/day of [place] Bitartrate 00 acetaminop 10 MG Oral hen. (Same Tablet as: [place] [[place] 325/10) ] Acetaminoph 2015-07 No Notes: Do M emoria en 325 MG / 0-01 not exceed l Hydrocodone 11:40: 4gm/day of [place] Bitartrate 00 acetaminop 10 MG Oral hen. (Same Tablet as: [place] [[place] 325/10) ] Acetaminoph 2015-07 No Notes: Do M emoria en 325 MG / 0-01 not exceed l Hydrocodone 11:40: 4gm/day of [place] Bitartrate 00 acetaminop 10 MG Oral hen. (Same Tablet as: [place] [[place] 325/10) ] Acetaminoph 2015-07 No Notes: Do M emoria en 325 MG / 0-01 not exceed l Hydrocodone 11:40: 4gm/day of [place] Bitartrate 00 acetaminop 10 MG Oral hen. (Same Tablet as: [place] [[place] 325/10) ] Acetaminoph 2015-07 No Notes: Do M emoria en 325 MG / 0-01 not exceed l Hydrocodone 11:40: 4gm/day of [place] Bitartrate 00 acetaminop 10 MG Oral hen. (Same Tablet as: [place] [[place] 325/10) ] Famotidine 2015-07 No Notes: Memor [...] Memoria 0-01 (Same as: l 02:00: Colace) [place] 00 (Do Not Crush) sennosides, 2015-07 No Notes: Manjinder nasir GROUP HOME 0-01 (Same as: l 02:00: Senokot) [place] 00 Famotidine 2015-07 No Notes: Memor ia 0-01 (Same as: l 02:00: Pepcid) [place] 00 Can be dilute in 5-10cc NS IVP: Slow IV push over at least 2 minutes. Acetaminoph 2015-07 No Notes: Manjinder nasir en 0-01 Infuse l 02:00: over 15 [place] 00 minutes Do not exceed 4gm/day of acetaminop hen MEDICATION WASTE Product Size: 1000 mg Product Wasted: ___ mg Saline 2015-07 No Notes: Memoria Flush 0.9% 0-01 Same as: l 02:00: BD [place] 00 Posiflush Sterile Docusate 2015-07 No Notes: Memoria 0-01 (Same as: l 02:00: Colace) [place] 00 (Do Not Crush) sennosides, 2015-07 No Notes: Manjinder nasir GROUP HOME 0-01 (Same as: l 02:00: Senokot) [place] 00 Famotidine 2015-07 No Notes: Memor ia 0-01 (Same as: l 02:00: Pepcid) [place] 00 Can be dilute in 5-10cc NS IVP: Slow IV push over at least 2 minutes. Acetaminoph 2015-07 No Notes: Manjinder nasir en 0-01 Infuse l 02:00: over 15 [place] 00 minutes Do not exceed 4gm/day of acetaminop hen MEDICATION WASTE Product Size: 1000 mg Product Wasted: ___ mg Saline 2015-07 No Notes: Memoria Flush 0.9% 0-01 Same as: l 02:00: BD [place] 00 Posiflush Sterile Docusate 2015-07 No Notes: [facility] 0-01 (Same as: l 02:00: Colace) [place] 00 (Do Not Crush) sennosides, 2015-07 No Notes: Manjinder nasir GROUP HOME 0-01 (Same as: l 02:00: Senokot) [place] 00 Famotidine 2015-07 No Notes: Memor ia [...] Crush) sennosides, 2015-07 No Notes: Manjinder nasir GROUP HOME 0-01 (Same as: l 02:00: Senokot) [place] 00 Famotidine 2015-07 No Notes: Memor ia 0-01 (Same as: l 02:00: Pepcid) [place] 00 Can be dilute in 5-10cc NS IVP: Slow IV push over at least 2 minutes. Acetaminoph 2015-07 No Notes: Manjinder nasir en 0-01 Infuse l 02:00: over 15 [place] 00 minutes Do not exceed 4gm/day of acetaminop hen MEDICATION WASTE Product Size: 1000 mg Product Wasted: ___ mg Saline 2015-07 No Notes: Memoria Flush 0.9% 0-01 Same as: l 02:00: BD [place] 00 Posiflush Sterile Docusate 2015-07 No Notes: [facility]oria 0-01 (Same as: l 02:00: Colace) [place] 00 (Do Not Crush) sennosides, 2015-07 No Notes: Manjnider nasir GROUP HOME 0-01 (Same as: l 02:00: Senokot) [place] 00 Famotidine 2015-07 No Notes: Memor ia 0-01 (Same as: l 02:00: Pepcid) Can be dilute in 5-10cc NS IVP: Slow IV push over at least 2 minutes. Acetaminoph 2015-07 No Notes: Manjinder nasir en 0-01 Infuse l 02:00: over 15 [place] 00 minutes Do not exceed 4gm/day of acetaminop hen MEDICATION WASTE Product Size: 1000 mg Product Wasted: ___ mg Saline 2015-07 No Notes: Memoria Flush 0.9% 0- Same as: l 02:00: BD Posiflush Sterile Docusate 2015-07 No Notes: Memoria 0-01 (Same as: l 02:00: Colace) (Do Not Crush) sennosides, 2015-07 No Notes: Manjinder nasir GROUP HOME 0- (Same as: l 02:00: Senokot) carvedilol No Notes: Memor ia 9-30 Give with l 22:00: food. (Same As: Coreg) Folic Acid No Notes: Memor ia 9-30 (Same as: l 22:00: Folvite) carvedilol No Notes: Memor ia 9-30 Give with l 22:00: food. (Same As: Coreg) Folic Acid No Notes: Memor ia 9-30 (Same as: l 22:00: Folvite) carvedilol No Notes: Memor ia 9-30 Give with l 22:00: food. (Same As: Coreg) carvedilol No Notes: Memor ia 9-30 Give with l 22:00: food. (Same As: Coreg) Folic Acid No Notes: Memor ia 9-30 (Same as: l 22:00: Folvite) Folic Acid No Notes: Memor ia 9-30 (Same as: l 22:00: Folvite) carvedilol No Notes: Memor ia 9-30 Give with l 22:00: food. (Same As: Coreg) Folic Acid No Notes: Memor ia 9-30 (Same as: l 22:00: Folvite) [place] 00 carvedilol No Notes: Memor ia 04-01 Give with l 22:00: food. (Same As: Coreg) Folic Acid No Notes: Memor ia 04-01 (Same as: l 22:00: Folvite) [place] 00 ceFAZolin No Notes: Memori a (SCIP) + [...] 04-01 (Same As: l sodium 21:00: Ancef, [place] chloride 00 Kefzol) 0.9% INJ 100 mL MEDICATION WASTE Product Size: 1000 mg Product Wasted: ___ mg ceFAZolin No Notes: Memori a (SCIP) + 04-01 (Same As: l sodium 21:00: Ancef, [place] chloride 00 Kefzol) 0.9% INJ 100 mL MEDICATION WASTE Product Size: 1000 mg Product Wasted: ___ mg ropinirole No Notes: Memor ia 9-30 (Same as: l 19:06: Requip) [place] ropinirole No Notes: Memor ia 9-30 (Same as: l 19:06: Requip) [place] 00 ropinirole No Notes: Memor ia 9-30 (Same as: l 19:06: Requip) [place] ropinirole No Notes: Memor ia 9-30 (Same as: l 19:06: Requip) [place] ropinirole No Notes: Memor ia 9-30 (Same as: l 19:06: Requip) [place] ropinirole No Notes: Memor ia 9-30 (Same as: l 19:06: Requip) [place] 00 Dexamethaso No Notes: Manjinder nasir ne 9-30 Concentrat l 19:00: ion: [place] 00 4mg/ml Dexamethaso No Notes: Manjinder nasir ne 9-30 Concentrat l 19:00: ion: [place] 00 4mg/ml Dexamethaso No Notes: Manjinder nasir ne 9-30 Concentrat l 19:00: ion: [place] 00 4mg/ml Dexamethaso No Notes: Manjinder nasir ne 9-30 Concentrat l 19:00: ion: [place] 00 4mg/ml Dexamethaso No Notes: Manjinder nasir ne 9-30 Concentrat l 19:00: ion: [place] 00 4mg/ml Dexamethaso No Notes: Manjinder nasir ne 9-30 Concentrat l 19:00: ion: [place] 00 4mg/ml Robaxin No Notes: Memoria 9-30 (Same l 18:51: as:Robaxin [place] ) Robaxin No Notes: Memoria 9-30 (Same l 18:51: as:Robaxin [place] ) Robaxin No Notes: Memoria 9-30 (Same l 18:51: as:Robaxin [place] ) Robaxin No Notes: Memoria 9-30 (Same l 18:51: as:Robaxin [place] ) Robaxin 2016-0 No Notes: Memoria 9-30 (Same l 18:51: as:Robaxin [place] 00 ) Robaxin 0 No Notes: Memoria -30 (Same l 18:51: as:Robaxin [place] 00 ) Robaxin 0 No Notes: Memoria 30 (Same l 18:11: as:Robaxin [place] 00 ) Robaxin No Notes: Memoria 30 (Same l 18:11: as:Robaxin [place] 00 ) Robaxin 0 No Notes: Memoria 30 (Same l 18:11: as:Robaxin [place] 00 ) Robaxin No Notes: Memoria 30 (Same l 18:11: as:Robaxin [place] 00 ) Robaxin No Notes: Memoria 30 (Same l 18:11: as:Robaxin [place] 00 ) Robaxin No Notes: Memoria 30 (Same l 18:11: as:Robaxin [place] 00 ) Dexamethaso 2015-0 No 10 mg, Manjinder nasir ne 9- Route: l 18:06: IVP, ONCE, [place] 00 Dosing Weight 90.909, kg, Priority: NOW, Start date: 04/01/16 13:06:00 CDT, Stop date: 04/01/16 13:06:00 CDT Dexamethaso 2016-0 No 10 mg, Manjinder nasir ne 9-30 Route: l 18:06: IVP, ONCE, [place] 00 Dosing Weight 90.909, kg, Priority: NOW, Start date: 04/01/16 13:06:00 CDT, Stop date: 04/01/16 13:06:00 CDT Dexamethaso 2016-0 No 10 mg, Manjinder nasir ne 9-30 Route: l 18:06: IVP, ONCE, [place] 00 Dosing Weight 90.909, kg, Priority: NOW, Start date: 04/01/16 13:06:00 CDT, Stop date: 04/01/16 13:06:00 CDT Dexamethaso 2016-0 No 10 mg, Manjinder nasir ne 9-30 Route: l 18:06: IVP, ONCE, [place] 00 Dosing Weight 90.909, kg, Priority: NOW, [...] CDT, Stop date: 04/01/16 13:06:00 CDT Ofirmev [id number] No or = 50 Mem[facility] a 9-30 [...] l 17:13: date: 04/01/16 12:13:00 CDT Ondansetron 0 No Notes: Manjinder nasir 04-01 (Same as: l 17:11: Zofran) MEDICATION WASTE Product Size: 4 mg Product Wasted: ___ mg Flumazenil No Notes: Memor ia 9-30 (Same as: l 17:11: Romazicon) [place] Naloxone No Notes: [facility] 9-30 Same as l 17:11: Narcan [place] Hydromorpho No 0.2 mg, Mem oria ne 930 Route: l 17:11: IVP, [place] 00 Q5Min, [...] oria ne 04-01 Route: l 17:11: IVP, [place] 00 Q5Min, Dosing Weight 90.909, kg, PRN Pain Score 7-10, Start date: 04/01/16 12:11:00 CDT, Duration: 4 doses or times, Stop date: Limited # of times Ondansetron No Notes: Manjinder nasir -30 (Same as: l 17:11: Zofran) [place] 00 MEDICATION WASTE Product Size: 4 mg Product Wasted: ___ mg Flumazenil No Notes: Memor ia 9-30 (Same as: l 17:11: Romazicon) [place] Naloxone No Notes: [facility] 9-30 Same as l 17:11: Narcan [place] Hydromorpho 0 No 0.2 mg, Mem oria ne 930 Route: l 17:11: IVP, [place] 00 Q5Min, Dosing Weight 90.909, kg, PRN Pain Score 7-10, Start date: 04/01/16 12:11:00 CDT, Duration: 4 doses or times, Stop date: Limited # of times Ondansetron 2015-0 No Notes: Manjinder nasir 9-30 (Same as: l 17:11: Zofran) [place] 00 MEDICATION WASTE Product Size: 4 mg Product Wasted: ___ mg Flumazenil No Notes: Mem[facility] ia 9-30 (Same as: l 17:11: Romazicon) [place] Naloxone No Notes: [facility] 9-30 Same as l 17:11: Narcan [place] Hydromorpho No 0.2 mg, Mem oria ne [...] [facility] -30 Same as l 17:11: Narcan [place] 00 Hydromorpho No 0.2 mg, Mem oria ne -30 Route: l 17:11: IVP, [place] 00 Q5Min, Dosing Weight 90.909, kg, PRN [...] [facility] 9-30 Same as l 17:11: Narcan [place] Hydromorpho No 0.2 mg, Mem oria ne 9-30 Route: l 17:11: IVP, [place] 00 Q5Min, Dosing Weight 90.909, kg, PRN Pain Score 7-10, Start date: 04/01/16 12:11:00 CDT, Duration: 4 doses or times, Stop date: Limited # of times Dilaudid No Notes: [facility] 9-30 (Same as: l 17:03: Dilaudid) Dilaudid No Notes: [facility] 9-30 (Same as: l 17:03: Dilaudid) Dilaudid No Notes: [facility] 9-30 (Same as: l 17:03: Dilaudid) [place] 00 Dilaudid No Notes: [facility] 9-30 (Same as: l 17:03: Dilaudid) Dilaudid No Notes: [facility] 9-30 (Same as: l 17:03: Dilaudid) [place] 00 Dilaudid No Notes: [facility] 9-30 (Same as: [...] 9-30 mL, Route: l 17:00: IVP, Drug [place] 00 form: INJ, Q15Min, Dosing Weight 90.909, kg, PRN Hypertensi on, Start date: 04/01/16 12:00:00 CDT, Duration: 3 doses or times, Stop date: 04/02/16 17:00:00 CDT Hydralazine 2016-0 No Notes: Manjinder nasir 9-30 (Same as: l 17:00: Apresoline [place] ) Push over 5 minutes Labetalol 0 No 10 mg, 2 Manjinder nasir 9-30 [...] 9-30 mL, Route: l 17:00: IVP, Drug [place] 00 form: INJ, Q15Min, Dosing Weight 90.909, kg, PRN Hypertensi on, Start date: 04/01/16 12:00:00 CDT, Duration: 3 doses or times, Stop date: 04/02/16 17:00:00 CDT Hydralazine 2016-0 No Notes: Manjinder nasir 9-30 (Same as: l 17:00: Apresoline [place] ) Push over 5 minutes Labetalol 2015-0 No 10 mg, 2 Manjinder nasir 9-30 mL, Route: l 17:00: IVP, Drug [place] 00 form: INJ, Q15Min, Dosing Weight 90.909, kg, PRN Hypertensi on, Start date: 04/01/16 12:00:00 CDT, Duration: 3 doses or times, Stop date: 04/02/16 17:00:00 CDT Hydralazine No Notes: Manjinder nasir -30 (Same as: l 17:00: Apresoline ) Push [...] 16:59: as:Robaxin ) Robaxin No Notes: [facility] -30 (Same l 16:59: as:Robaxin ) Dextrose No 6.25 gm, Memor ia 50% [...] Posiflush Sterile Ondansetron No Notes: Manjinder nasir 30 (Same as: l 16:58: Zofran) MEDICATION WASTE Product Size: 4 mg Product Wasted: ___ mg Bisacodyl No Notes: [facility]ori a 9-30 (Same As: l 16:58: Dulcolax, [place] 00 Bisco-Lax) Acetaminoph No Notes: Do M emoria en 325 MG / 04-01 not exceed l Hydrocodone 16:58: 4gm/day of [place] Bitartrate 00 acetaminop 10 MG Oral hen. (Same Tablet as: [place] 325/10) Morphine No 2 mg, Memoria 04-01 [...] a 04-01 (Same As: l 16:58: Dulcolax, [place] Bisco-Lax) Acetaminoph No Notes: Do M emoria en 325 MG / 04-01 not exceed l Hydrocodone 16:58: 4gm/day of [place] Bitartrate 00 acetaminop 10 MG Oral hen. (Same Tablet as: [place] 325/10) Morphine No 2 mg, [facility] 04-01 [...] 10 MG Oral hen. (Same Tablet as: [place] 325/10) Morphine No 2 mg, [facility] 04-01 [...] Syringe 04-01 12.5 mL, l 16:58: Route: [place] 00 IVP, Drug Form: INJ, Dosing Weight [...] exceed l Hydrocodone 16:58: 4gm/day of [place] acetaminop 10 MG Oral hen. (Same Tablet as: [place] 325/10) Morphine No 2 mg, [facility] 04-01 [...] [place] Bisco-Lax) Acetaminoph No Notes: Do M emoria en 325 MG / 04-01 not exceed l Hydrocodone 16:58: 4gm/day of [place] Bitartrate 00 acetaminop 10 MG Oral hen. (Same Tablet as: [place] 325/10) Morphine No 2 mg, [facility] 04-01 Route: l 16:58: IVP, Q1H, Dosing Weight 90.909, kg, PRN Pain Score 7-10, Start date: 04/01/16 11:58:00 CDT, Duration: 30 day, Stop date: 05/01/16 11:57:00 CDT Sodium No 1,000 mL, Memori a Chloride 04-01 Rate: 75 l 0.154 16:58: ml/hr, [place] MEQ/ML 00 Infuse Injectable over: 13.3 Solution [...] 10 MG Oral hen. (Same Tablet as: [place] 325/10) Morphine No 2 mg, [facility] 04-01 Route: l 16:58: IVP, Q1H, [place] 00 Dosing Weight 90.909, kg, PRN Pain Score 7-10, Start date: 04/01/16 11:58:00 CDT, Duration: 30 day, Stop date: 05/01/16 11:57:00 CDT Ancef 0 No 1 gm, Memoria [...] [facility]oria 04-01 Route: l 16:05: IVPB, Drug [place] 00 form: INJ, ONCE, Dosing Weight 90.909, kg, Start date: 04/01/16 11:05:00 CDT, Stop date: 04/01/16 11:05:00 CDT Ancef 0 No 1 gm, [facility] 04-01 Route: l 16:05: IVPB, Drug [place] 00 form: INJ, ONCE, Dosing Weight 90.909, kg, Start date: 04/01/16 11:05:00 CDT, Stop date: 04/01/16 11:05:00 CDT Ancef 0 No 1 gm, [facility] 04-01 Route: l 16:05: IVPB, Drug [place] 00 form: INJ, ONCE, Dosing Weight 90.909, kg, Start date: 04/01/16 11:05:00 CDT, Stop date: 04/01/16 11:05:00 CDT Ancef 0 No 1 gm, [facility] 04-01 Route: l 16:05: IVPB, Drug [place] 00 form: INJ, ONCE, Dosing Weight 90.909, kg, Start date: 04/01/16 11:05:00 CDT, Stop date: 04/01/16 11:05:00 CDT bupivacaine No Notes: Manjinder nasir liposome 04-01 (Same as: l 15:05: Exparel) [place] 00 [...] liposome 9-30 (Same as: l 15:05: Exparel) [place] 00 NOT FOR IV use Postoperat willard [...] liposome 9-30 (Same as: l 15:05: Exparel) [place] 00 NOT FOR IV use Postoperat willard [...] dose = 30 mL [266 mg]) bupivacaine No Notes: Manjinder nasir liposome 04-01 (Same as: l 15:05: Exparel) NOT FOR [...] dose = 30 mL [266 mg]) bupivacaine No Notes: Manjinder nasir liposome 04-01 (Same as: l 15:05: Exparel) NOT FOR [...] dose = 30 mL [266 mg]) Ancef No 2 gm, [facility] 04-01 Route: l 13:15: IVPB, Drug form: INJ, ONCE, Dosing Weight 90.909, kg, Start date: 04/01/16 8:15:00 CDT, Duration: 1 doses or times, Stop date: 04/01/16 8:15:00 CDT, Surgical Prophylaxi s Only; For patients < 120 kg Ancef 2016-0 No 2 gm, [facility] 9-30 Route: l 13:15: IVPB, Drug [place] 00 form: INJ, ONCE, Dosing Weight 90.909, kg, Start date: 04/01/16 8:15:00 CDT, Duration: 1 doses or times, Stop date: 04/01/16 8:15:00 CDT, Surgical Prophylaxi s Only; For patients < 120 kg Ancef 2016-0 No 2 gm, [facility] 9-30 Route: l 13:15: IVPB, Drug [place] 00 form: INJ, ONCE, Dosing Weight 90.909, kg, Start date: 04/01/16 8:15:00 CDT, Duration: 1 doses or times, Stop date: 04/01/16 8:15:00 CDT, Surgical Prophylaxi s Only; For patients < 120 kg Ancef 2016-0 No 2 gm, [facility] 9-30 Route: l 13:15: IVPB, Drug [place] 00 form: INJ, ONCE, Dosing Weight 90.909, kg, Start date: 04/01/16 8:15:00 CDT, Duration: 1 doses or times, Stop date: 04/01/16 8:15:00 CDT, Surgical Prophylaxi s Only; For patients < 120 kg Ancef 2016-0 No 2 gm, [facility] 9-30 Route: l 13:15: IVPB, Drug [place] 00 form: INJ, ONCE, Dosing Weight 90.909, [...] Rate: 40 l 1,000 mL 11:00: ml/hr, [place] 00 Infuse over: 25 hr, Route: IV, Dosing Weight 90.909 kg, Total Volume: 1,000, Start date: 04/01/16 6:00:00 CDT, Duration: 30 day, Stop date: 05/01/16 5:59:00 CDT Lactated 2016-0 No 1,000 mL, Manjinder nasir [place] 9-30 Rate: 40 l 1,000 mL 11:00: ml/hr, [place] 00 Infuse over: 25 hr, Route: IV, [...] Rate: 40 l 1,000 mL 11:00: ml/hr, [place] 00 Infuse over: 25 hr, Route: IV, [...] day, Stop date: 05/01/16 5:59:00 CDT rOPINIRole 2015- Yes [id number] 1mg Take 1 [facility] (REQUIP) 1 5-16 tablet by [facility] of mg tablet 00:00: mouth 3 [place] 00 (three) Medical times Branch daily. gabapentin Yes [id number] 600mg Take 1 [facility] (NEURONTIN) 5-16 tablet by [facility] of 600 mg 00:00: mouth 2 [place] tablet 00 (two) Medical times Branch daily. pantoprazol Yes [id number] 40mg Take 1 [facility] e 5-16 tablet by [facility] of (PROTONIX) 00:00: mouth [place] 40 mg EC 00 daily. Medical tablet Branch rOPINIRole Yes [id number] 1mg Take 1 [facility] (REQUIP) 1 5-16 tablet by [facility] of mg tablet 00:00: mouth 3 [place] 00 (three) Medical times Branch daily. gabapentin Yes [id number] 600mg Take 1 [facility] (NEURONTIN) 5-16 tablet by [facility] of 600 mg 00:00: mouth 2 [place] tablet 00 (two) Medical times Branch daily. pantoprazol Yes [id number] 40mg Take 1 [facility] e 5-16 tablet by [facility] of (PROTONIX) 00:00: mouth [place] 40 mg EC 00 daily. Medical tablet Branch rOPINIRole Yes [id number] 1mg Take 1 [facility] (REQUIP) 1 5-16 tablet by [facility] of mg tablet 00:00: mouth 3 [place] 00 (three) Medical times Branch daily. gabapentin Yes [id number] 600mg Take 1 [facility] (NEURONTIN) 5-16 tablet by [facility] of 600 mg 00:00: mouth 2 [place] tablet 00 (two) Medical times Branch daily. pantoprazol Yes [id number] 40mg Take 1 [facility] e 5-16 tablet by [facility] of (PROTONIX) 00:00: mouth [place] 40 mg EC 00 daily. Medical tablet Branch rOPINIRole Yes [id number] 1mg Take 1 [facility] (REQUIP) 1 5-16 tablet by [facility] of mg tablet 00:00: mouth 3 [place] 00 (three) Medical times Branch daily. gabapentin Yes [id number] 600mg Take 1 [facility] (NEURONTIN) 5-16 tablet by [facility] of 600 mg 00:00: mouth 2 [place] tablet 00 (two) Medical times Branch daily. pantoprazol Yes [id number] 40mg Take 1 [facility] e 5-16 tablet by [facility] of (PROTONIX) 00:00: mouth [place] 40 mg EC 00 daily. Medical tablet Branch rOPINIRole Yes [id number] 1mg Take 1 [facility] (REQUIP) 1 5-16 tablet by [facility] of mg tablet 00:00: mouth 3 [place] 00 (three) Medical times Branch daily. gabapentin Yes [id number] 600mg Take 1 [facility] (NEURONTIN) 5-16 tablet by [facility] of 600 mg 00:00: mouth 2 [place] tablet 00 (two) Medical times Branch daily. pantoprazol Yes [id number] 40mg Take 1 [facility] e 5-16 tablet by [facility] of (PROTONIX) 00:00: mouth [place] 40 mg EC 00 daily. Medical tablet Branch rOPINIRole Yes [id number] 1mg Take 1 [facility] (REQUIP) 1 5-16 tablet by [facility]y of mg tablet 00:00: mouth 3 [place] 00 (three) Medical times Branch daily. gabapentin Yes [id number] 600mg Take 1 [facility] (NEURONTIN) 5-16 tablet by ity of 600 mg 00:00: mouth 2 [place] tablet 00 (two) Medical times Branch daily. pantoprazol Yes [id number] 40mg Take 1 [facility] e 5-16 tablet by [facility] of (PROTONIX) 00:00: mouth [place] 40 mg EC 00 daily. Medical tablet Branch rOPINIRole Yes [id number] 1mg Take 1 [facility] (REQUIP) 1 5-16 tablet by [facility]y of mg tablet 00:00: mouth 3 [place] 00 (three) Medical times Branch daily. gabapentin Yes [id number] 600mg Take 1 [facility] (NEURONTIN) 5-16 tablet by [facility] of 600 mg 00:00: mouth 2 [place] tablet 00 (two) Medical times Branch daily. pantoprazol 2016- Yes [id number] 40mg Take 1 [facility] e 5-16 tablet by [facility] of (PROTONIX) 00:00: mouth [place] 40 mg EC 00 daily. Medical tablet Branch rOPINIRole Yes [id number] 1mg Take 1 [facility] (REQUIP) 1 5-16 tablet by [facility]y of mg tablet 00:00: mouth 3 [place] 00 (three) Medical times Branch daily. gabapentin 2015- Yes [id number] 600mg Take 1 [facility] (NEURONTIN) 5-16 tablet by [facility] of 600 mg 00:00: mouth 2 [place] tablet 00 (two) Medical times Branch daily. pantoprazol Yes [id number] 40mg Take 1 [facility] e 5-16 tablet by [facility] of (PROTONIX) 00:00: mouth [place] 40 mg EC 00 daily. Medical tablet Branch rOPINIRole Yes [id number] 1mg Take 1 [facility] (REQUIP) 1 5-16 tablet by [facility] of mg tablet 00:00: mouth 3 [place] 00 (three) Medical times Branch daily. gabapentin Yes [id number] 600mg Take 1 [facility] (NEURONTIN) 5-16 tablet by [facility] of 600 mg 00:00: mouth 2 [place] tablet 00 (two) Medical times Branch daily. pantoprazol 2015- Yes [id number] 40mg Take 1 [facility] e 5-16 tablet by [facility] of (PROTONIX) 00:00: mouth [place] 40 mg EC 00 daily. Medical tablet Branch rOPINIRole Yes [id number] 1mg Take 1 [facility] (REQUIP) 1 5-16 tablet by [facility]y of mg tablet 00:00: mouth 3 [place] 00 (three) Medical times Branch daily. gabapentin Yes [id number] 600mg Take 1 [facility] (NEURONTIN) 5-16 tablet by [facility]y of 600 mg 00:00: mouth 2 [place] tablet 00 (two) Medical times Branch daily. pantoprazol 2015- Yes [id number] 40mg Take 1 [facility] e 5-16 tablet by [facility] of (PROTONIX) 00:00: mouth [place] 40 mg EC 00 daily. Medical tablet Branch rOPINIRole Yes [id number] 1mg Take 1 [facility] (REQUIP) 1 5-16 tablet by ity of mg tablet 00:00: mouth 3 [place] 00 (three) Medical times Branch daily. gabapentin 2015- Yes [id number] 600mg Take 1 [facility] (NEURONTIN) 5-16 tablet by [facility] of 600 mg 00:00: mouth 2 [place] tablet 00 (two) Medical times Branch daily. pantoprazol 2016- Yes [id number] 40mg Take 1 [facility] e 5-16 tablet by [facility] of (PROTONIX) 00:00: mouth [place] 40 mg EC 00 daily. Medical tablet Branch rOPINIRole 2015- Yes [id number] 1mg Take 1 [facility] (REQUIP) 1 5-16 tablet by [facility] of mg tablet 00:00: mouth 3 [place] 00 (three) Medical times Branch daily. gabapentin Yes [id number] 600mg Take 1 [facility] (NEURONTIN) 5-16 tablet by [facility]y of 600 mg 00:00: mouth 2 [place] tablet 00 (two) Medical times Branch daily. pantoprazol Yes [id number] 40mg Take 1 [facility] e 5-16 tablet by [facility] of (PROTONIX) 00:00: mouth [place] 40 mg EC 00 daily. Medical tablet Branch rOPINIRole Yes [id number] 1mg Take 1 [facility] (REQUIP) 1 5-16 tablet by [facility] of mg tablet 00:00: mouth 3 [place] 00 (three) Medical times Branch daily. gabapentin 2015- Yes [id number] 600mg Take 1 [facility] (NEURONTIN) 5-16 tablet by [facility]y of 600 mg 00:00: mouth 2 [place] tablet 00 (two) Medical times Branch daily. pantoprazol 2015- Yes [id number] 40mg Take 1 [facility] e 5-16 tablet by [facility] of (PROTONIX) 00:00: mouth [place] 40 mg EC 00 daily. Medical tablet Branch rOPINIRole Yes [id number] 1mg Take 1 [facility] (REQUIP) 1 5-16 tablet by [facility] of mg tablet 00:00: mouth 3 [place] 00 (three) Medical times Branch daily. gabapentin 2015- Yes [id number] 600mg Take 1 [facility] (NEURONTIN) 5-16 tablet by ity of 600 mg 00:00: mouth 2 [place] tablet 00 (two) Medical times Branch daily. pantoprazol Yes [id number] 40mg Take 1 [facility] e 5-16 tablet by [facility] of (PROTONIX) 00:00: mouth [place] 40 mg EC 00 daily. Medical tablet Branch rOPINIRole Yes [id number] 1mg Take 1 [facility] (REQUIP) 1 5-16 tablet by [facility]y of mg tablet 00:00: mouth 3 [place] 00 (three) Medical times Branch daily. gabapentin Yes [id number] 600mg Take 1 [facility] (NEURONTIN) 5-16 tablet by ity of 600 mg 00:00: mouth 2 [place] tablet 00 (two) Medical times Branch daily. pantoprazol Yes [id number] 40mg Take 1 [facility] e 5-16 tablet by [facility] of (PROTONIX) 00:00: mouth [place] 40 mg EC 00 daily. Medical tablet Branch rOPINIRole Yes [id number] 1mg Take 1 [facility] (REQUIP) 1 5-16 tablet by [facility]y of mg tablet 00:00: mouth 3 [place] 00 (three) Medical times Branch daily. gabapentin Yes [id number] 600mg Take 1 [facility] (NEURONTIN) 5-16 tablet by ity of 600 mg 00:00: mouth 2 [place] tablet 00 (two) Medical times Branch daily. pantoprazol Yes [id number] 40mg Take 1 [facility] e 5-16 tablet [...] BY ity of mg tablet 00:00: MOUTH 00 TWICE A Medical DAY Branch foLIC [...] BY ity of mg tablet 00:00: MOUTH 00 TWICE A Medical DAY Branch foLIC acid Yes TAKE 1 [facility] (FOLATE) 1 3-28 TABLET BY [facility]y of mg tablet 00:00: MOUTH 00 TWICE A Medical DAY Branch foLIC acid Yes TAKE 1 [facility] (FOLATE) 1 3-28 TABLET BY ity of mg tablet 00:00: MOUTH 00 TWICE A Medical DAY Branch foLIC acid Yes TAKE 1 [facility] rs (FOLATE) 1 3-28 TABLET BY ity of mg tablet 00:00: MOUTH 00 TWICE A Medical DAY Branch foLIC [...] e 150 MG Nystatin Nystatin No Nystatin 111496 [id number] UNIT/GM UNIT/GM UNIT/GM Requip 1 MG Requip [...] Acid 1 MG 1 MG 1 MG [place] 3 [place] 3 No [place] 3 Singulair Singulair No 1{table QD Singulair [...] e 150 MG Nystatin Nystatin No Nystatin 038724 [id number] UNIT/GM UNIT/GM UNIT/GM Requip 1 MG Requip [...] Acid 1 MG 1 MG 1 MG [place] 3 [place] 3 No [place] 3 Singulair Singulair No 1{table QD Singulair [...] e 150 MG Nystatin Nystatin No Nystatin 999777 [id number] UNIT/GM UNIT/GM UNIT/GM Requip 1 MG Requip [...] 300 MG 300 MG l 300 MG [place] 3 [place] 3 No [place] 3 Folic Acid Folic Acid No Folic [...] 4 eded} MG Nystatin Nystatin No Nystatin 749806 562283 [id number] UNIT/GM UNIT/GM UNIT/GM traZODone traZODone No traZODone [...] MCG/INH MCG/INH MCG/INH Nystatin Nystatin No Nystatin 583997 675789 [id number] UNIT/GM UNIT/GM UNIT/GM Aspirin Aspirin No Aspirin [...] QD Lipitor 10 MG MG t} MG [place] 3 [place] 3 No [place] 3 metOLazone metOLazone No QD metOLazone 2.5 MG 2.5 MG 2.5 MG Lidocaine 5 Lidocaine 5 No 1{appli TID Lidocaine % % cation_ 5 % as_need ed} Famotidine Famotidine No 1{table QD Famotidine 20 MG 20 MG t_at_be 20 MG dtime} Allopurinol Allopurinol No QD Allopurino 300 MG 300 MG l 300 MG [place] 3 [place] 3 No [place] 3 Singulair Singulair No 1{table QD Singulair 10 MG 10 MG t} 10 MG Breo Breo No Breo Ellipta Ellipta Ellipta 200-25 200-25 200-25 MCG/INH MCG/INH MCG/INH Nystatin Nystatin No Nystatin 854446 444854 [id number] UNIT/GM UNIT/GM UNIT/GM Aspirin Aspirin No Aspirin [...] one 25 MG t} tone 25 MG [place] 3 [place] 3 No [place] 3 metOLazone metOLazone No QD metOLazone 2.5 MG 2.5 MG 2.5 MG Allopurinol Allopurinol No Allopurino 300 MG 300 MG l 300 MG Lidocaine 5 Lidocaine 5 No 1{appli TID Lidocaine % % cation_ 5 % as_need ed} Hydromorpho Hydromorpho No 1{table Hydromorph ne HCl 4 MG ne HCl 4 MG t_as_ne one HCl 4 eded} MG [place] 3 [place] 3 No [place] 3 Bumex 2 MG Bumex 2 MG [...] le 2 % Nystatin Nystatin No Nystatin 994282 914323 [id number] UNIT/GM UNIT/GM UNIT/GM Omeprazole Omeprazole No Omeprazole [...] Metolazone 2.5 MG 2.5 MG 2.5 MG Neurontin Neurontin No 1{table TID Neurontin 600 MG 600 MG t} 600 MG Omeprazole Omeprazole No Omeprazole 40 MG 40 MG 40 MG Ferrous Ferrous No 1{table QD Ferrous Sulfate 324 Sulfate 324 t} Sulfate MG MG 324 MG Eliquis 2.5 Eliquis 2.5 No Eliquis mg 2.5 mg mg 2.5 mg 2.5 mg 2.5 mg Metoprolol Metoprolol No Metoprolol Succinate Succinate Succinate ER 25 MG ER 25 MG ER 25 MG rOPINIRole rOPINIRole No rOPINIRole HCl 1 MG HCl 1 MG HCl 1 MG Methocarbam Methocarbam No 1{table Methocarba ol 750 MG ol 750 MG t} mol 750 MG CoQ-10 CoQ-10 No CoQ-10 HYDROmorpho HYDROmorpho No 1{table HYDROmorph ne HCl 4 MG ne HCl 4 MG t_as_ne one HCl 4 eded} MG [place] 3 [place] 3 No [place] 3 Lipitor 10 Lipitor 10 No 1{table QD Lipitor 10 MG MG t} MG Allopurinol Allopurinol No Allopurino 300 MG 300 MG l 300 MG Albuterol Albuterol No 2{puffs Albuterol Sulfate HFA Sulfate HFA _as_nee Sulfate 108 (90 108 (90 ded} HFA 108 Base) Base) (90 Base) MCG/ACT MCG/ACT MCG/ACT Singulair Singulair No 1{table QD Singulair 10 MG 10 MG t} 10 MG rOPINIRole rOPINIRole No rOPINIRole HCl 1 MG HCl 1 MG HCl 1 MG Aspirin Aspirin No Aspirin Folic Acid Folic Acid No Folic Acid 1 MG 1 MG 1 MG Triamcinolo Triamcinolo No Triamcinol ne ne one Acetonide Acetonide Acetonide 0.1 % 0.1 % 0.1 % Gabapentin Gabapentin No Gabapentin 600 MG 600 MG 600 MG Ropinirole Ropinirole No Ropinirole HCl 1 MG HCl 1 MG HCl 1 MG traZODone traZODone No 1{table QD traZODone HCl 150 MG HCl 150 MG t_at_be HCl 150 MG dtime} DULoxetine DULoxetine No DULoxetine HCl 60 MG HCl 60 MG HCl 60 MG Fluconazole Fluconazole No 1{table Fluconazol 150 MG 150 MG ts} e 150 MG Spironolact Spironolact No 1{table QD Spironolac one 25 MG one 25 MG t} tone 25 MG Breo Breo No 1{puff} QD Breo Ellipta Ellipta Ellipta 200-25 200-25 200-25 MCG/INH MCG/INH MCG/INH Breo Breo No Breo Ellipta Ellipta Ellipta 200-25 200-25 200-25 MCG/INH MCG/INH MCG/INH Famotidine Famotidine No 1{table QD Famotidine 20 MG 20 MG t_at_be 20 MG dtime} Ketoconazol Ketoconazol No 1{appli BID Ketoconazo e 2 % e 2 % cation} le 2 % Lipitor 10 Lipitor 10 No 1{table QD Lipitor 10 MG MG t} MG Nystatin Nystatin No Nystatin 577401 120412 [id number] UNIT/GM UNIT/GM UNIT/GM Neurontin Neurontin No 1{table TID Neurontin 600 MG 600 MG t} 600 MG Potassium Potassium No 1{table QD Potassium [...] % % cation_ 5 % as_need ed} Methocarbam Methocarbam No 1{table Methocarba ol 750 [...] Metolazone 2.5 MG 2.5 MG 2.5 MG [place] 3 [place] 3 No [place] 3 Ropinirole Ropinirole No Ropinirole HCl 1 [...] Metolazone 2.5 MG 2.5 MG 2.5 MG [place] 3 [place] 3 No [place] 3 Ropinirole Ropinirole No Ropinirole HCl 1 [...] MG HCl 1 MG HCl 1 MG [place] 3 [place] 3 No [place] 3 Famotidine Famotidine No 1{table QD Famotidine [...] MG HCl 1 MG HCl 1 MG [place] 3 [place] 3 No [place] 3 Famotidine Famotidine No 1{table QD Famotidine [...] HCl 60 MG le} HCl 60 MG [place] 3 [place] 3 No [place] 3 Singulair Singulair No 1{table QD Singulair [...] Omeprazole Omeprazole No 40 MG 40 MG [place] 3 [place] 3 No Metoprolol Metoprolol No Succinate Succinate [...] Omeprazole 40 MG 40 MG 40 MG [place] 3 [place] 3 No [place] 3 Metoprolol Metoprolol No Metoprolol Succinate Succinate [...] MG ER 25 MG ER 25 MG [place] 3 [place] 3 No [place] 3 Breo Breo No Breo Ellipta Ellipta [...] Base) Base) (90 Base) MCG/ACT MCG/ACT MCG/ACT [place] 3 [place] 3 No [place] 3 traZODone traZODone No 1{table QD traZODone [...] metOLazone 2.5 MG 2.5 MG 2.5 MG [place] 3 [place] 3 No [place] 3 traZODone traZODone No 1{table QD traZODone [...] metOLazone 2.5 MG 2.5 MG 2.5 MG [place] 3 [place] 3 No [place] 3 traZODone traZODone No 1{table QD traZODone [...] Base) Base) (90 Base) MCG/ACT MCG/ACT MCG/ACT [place] 3 [place] 3 No [place] 3 traZODone traZODone No 1{table QD traZODone [...] Base) Base) (90 Base) MCG/ACT MCG/ACT MCG/ACT [place] 3 [place] 3 No [place] 3 Spironolact Spironolact No 1{table QD Spironolac [...] MG ER 25 MG ER 25 MG [place] 3 [place] 3 No [place] 3 Famotidine Famotidine No 1{table QD Famotidine [...] MG ER 25 MG ER 25 MG [place] 3 [place] 3 No [place] 3 Famotidine Famotidine No 1{table QD Famotidine [...] t} 10 MG Nystatin Nystatin No Nystatin [id number] UNIT/GM UNIT/GM UNIT/GM Breo Breo No Breo [...] MG ER 25 MG ER 25 MG [place] 3 [place] 3 No [place] 3 Famotidine Famotidine No 1{table QD Famotidine [...] HCl 1 MG Nystatin Nystatin No Nystatin [id number] UNIT/GM UNIT/GM UNIT/GM traZODone traZODone No 1{table [...] ER 20 MEQ CoQ-10 CoQ-10 No CoQ-10 [place] 3 [place] 3 No [place] 3 Omeprazole Omeprazole No Omeprazole 40 MG [...] HCl 1 MG Nystatin Nystatin No Nystatin 172285 [id number] UNIT/GM UNIT/GM UNIT/GM traZODone traZODone No 1{table [...] ER 20 MEQ CoQ-10 CoQ-10 No CoQ-10 [place] 3 [place] 3 No [place] 3 Omeprazole Omeprazole No Omeprazole 40 MG [...] 600 MG 600 MG t} 600 MG [place] 3 [place] 3 No [place] 3 HYDROmorpho HYDROmorpho No 1{table HYDROmorph ne [...] tone 25 MG Nystatin Nystatin No Nystatin 105737 [id number] UNIT/GM UNIT/GM UNIT/GM Metoprolol Metoprolol No Metoprolol [...] 600 MG 600 MG t} 600 MG [place] 3 Palm [place] 3 HYDROmorpho HYDROmorpho No 1{table HYDROmorph ne [...] tone 25 MG Nystatin Nystatin No Nystatin [id number] UNIT/GM UNIT/GM UNIT/GM Metoprolol Metoprolol No Metoprolol [...] 600 MG 600 MG t} 600 MG [place] 3 [place] 3 No [place] 3 HYDROmorpho HYDROmorpho No 1{table HYDROmorph ne [...] tone 25 MG Nystatin Nystatin No Nystatin [id number] UNIT/GM UNIT/GM UNIT/GM Metoprolol Metoprolol No Metoprolol [...] Acid 1 MG 1 MG 1 MG [place] 3 [place] 3 No [place] 3 Immunizations Ordered Filled Immunization Date Status Comments [facility] e Immunization Name Name SARS-COV-2 COVID-19 2021-08-13 Completed Unive [facility]ity of VERA/J&J VACCINE 00:00:00 [facility] SARS-COV-2 COVID-19 2021-08-13 Completed Unive rsity of VERA/J&J VACCINE 00:00:00 [facility] SARS-COV-2 COVID-19 2021-08-13 Completed Unive rsity of VERA/J&J VACCINE 00:00:00 [facility] SARS-COV-2 COVID-19 2021-08-13 Completed [facility]ive [facility] of VERA/J&J VACCINE 00:00:00 [facility] SARS-COV-2 COVID-19 2021-08-13 Completed [facility]ive [facility] of VERA/J&J VACCINE 00:00:00 [facility] SARS-COV-2 COVID-19 2021-08-13 Completed Unive rsity of VERA/J&J VACCINE 00:00:00 [facility] SARS-COV-2 COVID-19 2021-08-13 Completed Unive rsity of VERA/J&J VACCINE 00:00:00 [facility] SARS-COV-2 COVID-19 2021-08-13 Completed [facility]ive rs[facility] of VERA/J&J VACCINE 00:00:00 [facility] SARS-COV-2 COVID-19 2021-08-13 Completed [facility]ive [facility] of VERA/J&J VACCINE 00:00:00 [facility] SARS-COV-2 COVID-19 2021-08-13 Completed [facility]ive rsity of VERA/J&J VACCINE 00:00:00 [facility] SARS-COV-2 COVID-19 2021-08-13 Completed [facility]ive rsity of VERA/J&J VACCINE 00:00:00 [facility] SARS-COV-2 COVID-19 2021-08-13 Completed [facility]ive rs[facility] of VERA/J&J VACCINE 00:00:00 [facility] SARS-COV-2 COVID-19 2021-08-13 Completed Unive rs[facility] of VERA/J&J VACCINE 00:00:00 [facility] SARS-COV-2 COVID-19 2021-08-13 Completed Unive rsity of VERA/J&J VACCINE 00:00:00 [facility] SARS-COV-2 COVID-19 2021-08-13 Completed Unive rs[facility] of VERA/J&J VACCINE 00:00:00 [facility] SARS-COV-2 COVID-19 2021-08-13 Completed Unive rs[facility] of VERA/J&J VACCINE 00:00:00 [facility] COVID-19 Vaccine COVID-19 Vaccine 2020-11-14 [facility] (Vera) 15:55:00 [facility] COVID-19 Vaccine COVID-19 Vaccine 2020-11-14 Completed [facility] (Vera) (Vera) 15:55:00 [facility] COVID-19 Vaccine COVID-19 Vaccine 2020-11-14 Completed [facility] (Vera) (Vera) 15:55:00 [facility] COVID-19 Vaccine COVID-19 Vaccine 2020-11-14 Completed [facility] (Vera) (Vera) 15:55:00 [facility] COVID-19 Vaccine COVID-19 Vaccine 2020-11-14 Completed [facility] (Vera) (Vera) 15:55:00 [facility] COVID-19 Vaccine COVID-19 Vaccine 2020-11-14 Completed [facility] (Vera) (Vera) 15:55:00 [facility] COVID-19 Vaccine COVID-19 Vaccine 2020-11-14 Completed [facility] (Vera) (Vera) 15:55:00 [facility] COVID-19 Vaccine COVID-19 Vaccine 2020-11-14 Completed [facility] (Vera) (Vera) 15:55:00 [facility] COVID-19 Vaccine COVID-19 Vaccine 2020-11-14 Completed [facility] (Vera) (Vera) 15:55:00 [facility] COVID-19 Vaccine COVID-19 Vaccine 2020-11-14 Completed [facility] (Vera) (Vera) 15:55:00 [facility] COVID-19 Vaccine COVID-19 Vaccine 2020-11-14 Completed [facility] (Vera) (Vera) 15:55:00 [facility] COVID-19 Vaccine COVID-19 Vaccine 2020-11-14 Completed [facility] (Vera) (Vera) 15:55:00 [facility] COVID-19 Vaccine COVID-19 Vaccine 2020-11-14 Completed [facility] (Vera) (Vera) 15:55:00 [facility] COVID-19 Vaccine COVID-19 Vaccine 2020-11-14 Completed [facility] (Vera) (Vera) 15:55:00 [facility] COVID-19 Vaccine COVID-19 Vaccine 2020-11-14 Completed [facility] (Vera) (Vera) 15:55:00 [facility] COVID-19 Vaccine COVID-19 Vaccine 2020-11-14 Completed [facility] (Vera) (Vera) 15:55:00 [facility] SARS-COV-2 COVID-19 2020-11-14 Completed [facility]ive [facility] of VERA/J&J VACCINE 00:00:00 [facility] SARS-COV-2 COVID-19 2020-11-14 Completed Unive rsity of VERA/J&J VACCINE 00:00:00 [facility] SARS-COV-2 COVID-19 2020-11-14 Completed Unive rs[facility] of VERA/J&J VACCINE 00:00:00 [facility] SARS-COV-2 COVID-19 2020-11-14 Completed [facility]ive [facility] of VERA/J&J VACCINE 00:00:00 [facility] SARS-COV-2 COVID-19 2020-11-14 Completed [facility]ive [facility] of VERA/J&J VACCINE 00:00:00 [facility] SARS-COV-2 COVID-19 2020-11-14 Completed [facility]ive rs[facility] of VERA/J&J VACCINE 00:00:00 [facility] SARS-COV-2 COVID-19 2020-11-14 Completed Unive rs[facility] of VERA/J&J VACCINE 00:00:00 [facility] SARS-COV-2 COVID-19 2020-11-14 Completed Unive rs[facility] of VERA/J&J VACCINE 00:00:00 [facility] SARS-COV-2 COVID-19 2020-11-14 Completed Unive rs[facility] of VERA/J&J VACCINE 00:00:00 [facility] SARS-COV-2 COVID-19 2020-11-14 Completed Unive rsity of VERA/J&J VACCINE 00:00:00 [facility] SARS-COV-2 COVID-19 2020-11-14 Completed Unive rsity of VERA/J&J VACCINE 00:00:00 [facility] SARS-COV-2 COVID-19 2020-11-14 Completed Unive rs[facility] of VERA/J&J VACCINE 00:00:00 [facility] SARS-COV-2 COVID-19 2020-11-14 Completed [facility]ive rs[facility] of VERA/J&J VACCINE 00:00:00 [facility] SARS-COV-2 COVID-19 2020-11-14 Completed Unive rs[facility] of VERA/J&J VACCINE 00:00:00 [facility] SARS-COV-2 COVID-19 2020-11-14 Completed Unive rs[facility] of VERA/J&J VACCINE 00:00:00 [facility] SARS-COV-2 COVID-19 2020-11-14 Completed Unive rsity of VERA/J&J VACCINE 00:00:00 [facility] Influenza High Dose 2020-07-09 Completed [facility] 00:00:00 [facility] Influenza High Dose 2020-07-09 Completed [facility] 00:00:00 [facility] Influenza High Dose 2020-07-09 Completed [facility] 00:00:00 [facility] Influenza High Dose 2020-07-09 Completed [facility] 00:00:00 [facility] Influenza High Dose 2020-07-09 Completed [facility] 00:00:00 [facility] Influenza High Dose 2020-07-09 Completed [facility] of [facility] 00:00:00 [facility] Influenza High Dose 2020-07-09 Completed [facility] of [facility] 00:00:00 [facility] Influenza High Dose 2020-07-09 Completed [facility] of [facility] 00:00:00 [facility] Influenza High Dose 2020-07-09 Completed [facility] 00:00:00 [facility] Influenza High Dose 2020-07-09 Completed [facility] 00:00:00 [facility] Influenza High Dose 2020-07-09 Completed [facility]ive [facility] of Quad 00:00:00 [facility] Influenza High Dose 2020-07-09 Completed [facility] of [facility] 00:00:00 [facility] Influenza High Dose 2020-07-09 Completed [facility] 00:00:00 [facility] Influenza High Dose 2020-07-09 Completed [facility] 00:00:00 [facility] Influenza High Dose 2020-07-09 Completed [facility] of [facility] 00:00:00 [facility] Influenza High Dose 2020-07-09 Completed [facility] of [facility] 00:00:00 [facility] Influenza High Dose 2018-05-10 Completed Unive rsity of 00:00:00 [facility] Influenza High Dose 2018-05-10 Completed Unive rsity of 00:00:00 [facility] Influenza High Dose 2018-05-10 Completed Unive rsity of 00:00:00 [facility] Influenza High Dose 2018-05-10 Completed Unive rsity of 00:00:00 [facility] Influenza High Dose 2018-05-10 Completed [facility] of 00:00:00 [facility] Influenza High Dose 2018-05-10 Completed Unive rsity of 00:00:00 [facility] Influenza High Dose 2018-05-10 Completed Unive rsity of 00:00:00 [facility] Influenza High Dose 2018-05-10 Completed Unive rsity of 00:00:00 [facility] Influenza High Dose 2018-05-10 Completed Unive rsity of 00:00:00 [facility] Influenza High Dose 2018-05-10 Completed Unive rsity of 00:00:00 [facility] Influenza High Dose 2018-05-10 Completed Unive rsity of 00:00:00 [facility] Influenza High Dose 2018-05-10 Completed Unive rsity of 00:00:00 [facility] Influenza High Dose 2018-05-10 Completed Unive rsity of 00:00:00 [facility] Influenza High Dose 2018-05-10 Completed Unive rsity of 00:00:00 [facility] Influenza High Dose 2018-05-10 Completed Unive rsity of 00:00:00 [facility] Influenza High Dose 2018-05-10 Completed Unive rsity of 00:00:00 [facility] influenza virus 2016-04-02 Completed [facility] [place] vaccine, 14:11:00 inactivated influenza virus 2016-04-02 Completed [facility] vaccine, 14:11:00 inactivated influenza virus 2016-04-02 Completed [facility] vaccine, 14:11:00 inactivated influenza virus 2016-04-02 Completed [facility] [place] vaccine, 14:11:00 inactivated influenza virus 2016-04-02 Completed [facility] [place] vaccine, 14:11:00 inactivated influenza virus 2016-04-02 Completed [facility] vaccine, 14:11:00 inactivated Vital Signs Vital Name Observation Time Observation Value Comments Source height 2022-08-02 09:00:00 62 [in_i] [facility] weight 2022-08-02 09:00:00 240 [lb_av] [facility] temperature 2022-08-02 09:00:00 97.9 [degF] [facility] bmi 2022-08-02 09:00:00 43.89 kg/m2 [facility] blood pressure 2022-08-02 09:00:00 137 mm[Hg] [facility] - systolic [facility] blood pressure 2022-08-02 09:00:00 75 mm[Hg] [facility] - diastolic [facility] Systolic blood 2022-05-30 21:41:00 127 mm[Hg] [facility] Diastolic blood 2022-05-30 21:41:00 50 mm[Hg] [facility]ive [facility] Heart rate 2022-05-30 21:41:00 92 /min [facility] Body temperature 2022-05-30 21:41:00 36.56 [facility] [place] [place] Respiratory rate 2022-05-30 21:41:00 16 /min [facility] [place] [place] Body weight 2022-05-30 21:41:00 110.406 kg [facility] BMI 2022-05-30 21:41:00 41.78 kg/m2 [facility] Oxygen saturation in 2022-05-30 21:41:00 96 /min [facility] blood by [facility] Pulse oximetry Branch height 2022-05-24 16:30:00 62 [in_i] Common [facility] weight 2022-05-24 16:30:00 243.6 [lb_av] Common [facility] temperature 2022-05-24 16:30:00 96.0 [degF] Common S [facility]irit [facility] bmi 2022-05-24 16:30:00 44.55 kg/m2 Common S [facility] oximetry 2022-05-24 16:30:00 97 % [facility] 2022-05-24 16:30:00 17 /min Comm on [facility] blood pressure 2022-05-24 16:30:00 137 mm[Hg] [facility] - systolic [facility] blood pressure 2022-05-24 16:30:00 75 mm[Hg] [facility] - diastolic [facility] Systolic blood 2022-05-18 04:08:00 137 mm[Hg] [facility] Diastolic blood 2022-05-18 04:08:00 78 mm[Hg] [facility] Heart rate 2022-05-18 04:08:00 100 /min [facility] Body temperature 2022-05-18 04:08:[address] [facility] [facility] [place] [place] Respiratory rate 2022-05-18 04:08:00 20 /min [facility] Oxygen saturation in 2022-05-18 04:08:00 96 /min [facility] blood by [facility] Pulse oximetry Branch Body height 2022-05-17 23:37:00 162.6 cm [facility] Body weight 2022-05-17 23:37:00 108.863 kg [facility] BMI 2022-05-17 23:37:00 41.20 kg/m2 [facility] height 2022-02-21 13:40:00 62 [in_i] [facility] weight 2022-02-21 13:40:00 238 [facility] temperature 2022-02-21 13:40:00 98.3 [degF] [facility] bmi 2022-02-21 13:40:00 43.53 kg/m2 [facility] blood pressure 2022-02-21 13:40:00 117 mm[Hg] [facility] - systolic [facility] blood pressure 2022-02-21 13:40:00 55 mm[Hg] [facility] - diastolic [facility] height 2022-02-21 13:00:00 62 [in_i] [facility] weight 2022-02-21 13:00:00 238 [lb_av] [facility] temperature 2022-02-21 13:00:00 98.3 [degF] [facility] bmi 2022-02-21 13:00:00 43.53 kg/m2 [facility] blood pressure 2022-02-21 13:00:00 117 mm[Hg] [facility] - systolic [facility] blood pressure 2022-02-21 13:00:00 55 mm[Hg] [facility] - [facility] height 2022-01-27 09:40:00 62 [in_i] Common [facility] weight 2022-01-27 09:40:00 232.0 [lb_av] [facility] temperature 2022-01-27 09:40:00 98.6 [degF] [facility] bmi 2022-01-27 09:40:00 42.43 kg/m2 [facility] Systolic blood 2022-01-24 20:40:00 107 mm[Hg] [facility] Diastolic blood 2022-01-24 20:40:00 46 mm[Hg] Unive rsity [facility] Heart rate 2022-01-24 20:40:00 95 /min [facility] Body temperature 2022-01-24 20:40:00 36.72 Cindy [facility] [place] [place] Respiratory rate 2022-01-24 20:40:00 16 /min [facility] [place] [place] Body weight 2022-01-24 20:40:00 109.362 kg [facility] BMI 2022-01-24 20:40:00 41.38 kg/m2 [facility] Oxygen saturation in 2022-01-24 20:40:00 91 /min [facility] Arterial blood by [facility] Pulse oximetry Branch height 2021-04-30 15:20:00 62 [in_i] [facility] weight 2021-04-30 15:20:00 232.0 [lb_av] [facility] temperature 2021-04-30 15:20:00 97.0 [degF] [facility] bmi 2021-04-30 15:20:00 42.43 kg/m2 [facility] oximetry 2021-04-30 15:20:00 92 % [facility] respiratory rate 2021-04-30 15:20:00 18 /min Comm on [facility] blood pressure 2021-04-30 15:20:00 110 mm[Hg] [facility] - systolic [facility] blood pressure 2021-04-30 15:20:00 70 mm[Hg] [facility] - diastolic [facility] height 2021-03-11 15:10:00 62 [in_i] [facility] weight 2021-03-11 15:10:00 220 [lb_av] [facility] temperature 2021-03-11 15:10:00 98.6 [degF] [facility] bmi 2021-03-11 15:10:00 40.23 kg/m2 [facility] blood pressure 2021-03-11 15:10:00 136 mm[Hg] [facility] - systolic [facility] blood pressure 2021-03-11 15:10:00 71 mm[Hg] [facility] - diastolic [facility] height 2020-12-29 11:20:00 62 [in_i] [facility] weight 2020-12-29 11:20:00 227.9 [lb_av] Common [facility] temperature 2020-12-29 11:20:00 96.8 [degF] [facility] bmi 2020-12-29 11:20:00 41.68 kg/m2 [facility] oximetry 2020-12-29 11:20:00 93 % [facility] respiratory rate 2020-12-29 11:20:00 18 /min Comm on [facility] blood pressure 2020-12-29 11:20:00 133 mm[Hg] [facility] - systolic [facility] blood pressure 2020-12-29 11:20:00 64 mm[Hg] [facility] - diastolic [facility] height 2020-11-24 10:00:00 62 [in_i] [facility] weight 2020-11-24 10:00:00 226.4 [lb_av] Common [facility] temperature 2020-11-24 10:00:00 97.0 [degF] [facility] bmi 2020-11-24 10:00:00 41.4 kg/m2 [facility] oximetry 2020-11-24 10:00:00 95 % [facility] respiratory rate 2020-11-24 10:00:00 18 /min Comm [facility] blood pressure 2020-11-24 10:00:00 135 mm[Hg] [facility] - [facility] blood pressure 2020-11-24 10:00:00 60 mm[Hg] [facility] - diastolic [facility] height 2020-10-19 11:00:00 62 [in_i] Common [facility] weight 2020-10-19 11:00:00 223 [lb_av] Common [facility] temperature 2020-10-19 11:00:00 98.6 [degF] [facility] bmi 2020-10-19 11:00:00 40.78 kg/m2 [facility] blood pressure 2020-10-19 11:00:00 113 mm[Hg] [facility] - systolic [facility] blood pressure 2020-10-19 11:00:00 78 mm[Hg] [facility] - diastolic [facility] height 2020-09-17 09:20:00 62 [in_i] Common [facility] weight 2020-09-17 09:20:00 245.0 [lb_av] Common [facility] temperature 2020-09-17 09:20:00 97.2 [degF] [facility] bmi 2020-09-17 09:20:00 44.81 kg/m2 [facility] oximetry 2020-09-17 09:20:00 97 % [facility] respiratory rate 2020-09-17 09:20:00 19 /min [facility] blood pressure 2020-09-17 09:20:00 135 mm[Hg] [facility] - systolic [facility] blood pressure 2020-09-17 09:20:00 77 mm[Hg] Common [facility] - diastolic [facility] height 2020-05-07 14:30:00 62 [in_i] [facility] weight 2020-05-07 14:30:00 245 [lb_av] [facility] temperature 2020-05-07 14:30:00 97.9 [degF] [facility] bmi 2020-05-07 14:30:00 44.81 kg/m2 [facility] Systolic (mm Hg) 2016-04-06 18:00:00 Manjinder [facility] [place] Diastolic (mm Hg) 2016-04-06 18:00:00 [facility] Respitory Rate 2016-04-06 18:00:00 [facility] [place] Respitory Rate 2016-04-06 17:00:00 [facility] [place] Systolic (mm Hg) 2016-04-06 17:00:00 Manjinder [facility] [place] Diastolic (mm Hg) 2016-04-06 17:00:00 [facility] Respitory Rate 2016-04-06 16:00:00 [facility] Systolic (mm Hg) 2016-04-06 16:00:00 Manjinder [facility] [place] Diastolic (mm Hg) 2016-04-06 16:00:00 [facility] Temperature Oral (F) 2016-04-06 13:11:00 98.0 F [facility] Temperature Oral (F) 2016-04-06 08:00:00 98.1 F [facility] [place] Temperature Oral (F) 2016-04-06 04:00:00 97.9 F [facility] Heart Rate 2016-04-04 20:00:00 [facility] Heart Rate 2016-04-04 17:35:00 [facility] Heart Rate 2016-04-04 12:58:00 [facility] Weight 2016-04-01 23:43:00 [facility] [place] Height 2016-04-01 11:16:00 157.48 cm [facility] BMI Calculated 2016-04-01 11:16:00 [facility] [place] Weight 2016-04-01 11:16:00 [facility] Weight 2016-03-28 20:53:00 [facility] [place] BMI Calculated 2016-03-28 20:53:00 [facility] Height 2016-03-28 20:53:00 157[facility]48 [facility] Procedure Date / Time Performing Clinician Source Performed EXTERNAL PROVIDER RECORDS 2022-09-26 05:01:00 Doctor Unalouis, [facility] Name [facility] RADIOLOGY DOCUMENTATION 2022-09-13 05:01:00 Doctor Unassigned, [facility] Name [facility] RADIOLOGY DOCUMENTATION 2022-09-05 06:01:00 Doctor Unassigned, [facility] Name [facility] CONSENT/REFUSAL FOR 2022-05-30 21:10:29 Doctor Unalouis, [facility] DIAGNOSIS AND TREATMENT [facility] URINALYSIS 2022-05-18 02:10:00 Sh[facility] BLOOD CULTURE SCREEN 2022-05-18 00:34:00 Shaan Mondragon [facility] BLOOD CULTURE SCREEN 2022-05-18 00:30:00 Shaan Mondragon [facility] COMP. METABOLIC PANEL 2022-05-18 00:30:00 Shaan Mondragon [facility] ([id number]) [facility] CBC WITH DIFF 2022-05-18 00:30:00 Shaan Mondragon [facility] LACTIC ACID WHOLE BLOOD 2022-05-18 00:30:00 Shaan Mondragon [facility] XR TIBIA FIBULA 2 VW LEFT 2022-05-18 00:25:17 Shaan Mondragon [facility] CONSENT/REFUSAL FOR 2022-05-17 23:21:05 Doctor Unassigned, Unive [facility] DIAGNOSIS AND TREATMENT [facility] [id number] 2020-09-28 00:00:00 [email or web address] [facility] Laminectomy with spinal 2016-04-01 05:00:00 Manjinder [facility] [place] fusion Cervical spinal fusion [facility]adder operation [facility] Laparoscopic adjustable [facility] gastric banding Operation [facility] Shoulder joint operations [facility] [place] Tonsillectomy [facility] Vein reconstruction [facility] Encounters Start End Encounter Admission Attending Care Care Encounter Source Date/Time Date/Time Type Type Clinicians Facility Department ID 2022-08-29 [facility] 08:18:00 Josiane [id number] [facility] 2022-08-02 Outpatient [facility] Common 11:04:01 Josiane [id number] [facility] 2022-07-19 Outpatient Pacheco, STLMLC [facility] Common 07:40:00 Josiane [id number] [facility] 2021-07-28 Outpatient Pacheco, STLMLC [facility] Common 13:47:50 Josiane [id number] [facility] 2021-07-28 Outpatient Pacheco, STLMLC [facility] Common 13:28:22 Josiane [id number] [facility] 2021-07-28 Outpatient Pacheco, STLMLC [facility] Common 13:19:50 Josiane [id number] [facility] 2021-07-28 Outpatient Pacheco, STLMLC [facility] Common 13:06:37 Josiane [id number] [facility] 2021-07-28 Outpatient Pacheco, STLMLC [facility] Common 12:53:45 Josiane [id number] [facility] 2021-07-28 Outpatient Pacheco, STLMLC [facility] Common 12:53:04 Josiane [id number] [facility] 2021-07-28 Outpatient Pacheco, [facility] Common 12:42:16 Josiane [id number] [facility] 2021-07-28 Outpatient Pacheco, [facility] Common 12:41:36 Josiane [id number] [facility] 2021-07-28 [facility] 12:02[facility]11 Josiaen [id number] [facility] 2021-07-28 [facility] 11:35:17 Josiane [id number] [facility] 2021-07-28 [facility] 11:26:08 Josiane [id number] [facility] 2021-07-28 [facility] 11:25:35 Josiane [id number] [facility] 2021-07-28 [facility] 11:20:54 Josiane [id number] [facility] 2021-07-28 [facility] HOSPITAL Common 11:16:31 Josiane [address] [facility] 2022-09-26 2022-09-26 Orders Doctor PORTER 1.2.840.114 [id number] Univers 00:00:00 00:00:00 Only Unassigned, YING 350.1.13.10 ity of [place] [facility] 4.2.7.2.686 Tanner as [phone] [facility] [address] 2022-09-13 2022-09-13 Orders Doctor GERMAN 1.2.840.114 [id number] Univers 00:00:00 00:00:00 Only Unassigned, YING 350.1.13.10 ity of [place] [facility] 4.2.7.2.686 Tanner as [phone] [facility] [address] 2022-09-13 2022-09-13 Telephone KAYLA Stanford2.840.114 10 [id number] Univers 00:00:00 00:00:00 Bradley Landry CrossChx 350.1.13.10 it y of [place] 4.2.7.2.686 Tanner as BRANDON?BLEA [phone] [place] jose [place] MEDICAL OFFICE [facility] 2022-09-05 2022-09-05 Orders Doctor GERMAN 1.2.840.114 [id number] Univers 00:00:00 00:00:00 Only Unassigned, YING 350.1.13.10 ity of [place] [facility] 4.2.7.2.686 [place] as [phone] [address] 2022-09-05 2022-09-05 Telephone [facility] 1.2.840.114 10 [id number] Univers 00:00:00 00:00:00 Bradley Landry CrossChx 350.1.13.10 it y of [place] 4.2.7.2.686 [place]anner as BRANDON?BLEA [phone] [place] jose [place] MEDICAL OFFICE [facility] 2022-09-05 2022-09-05 Telephone [facility] 1.2.840.114 10 [id number] Univers 00:00:00 00:00:00 Bradley CrossChx 350.1.13.10 it y of [place] 4.2.7.2.686 [place] as BRANDON?BLEA [phone] [address] OFFICE [facility] 2022-08-30 2022-08-30 Outpatient [facility] [id number] Univers 15:20:00 15:20:00 LAYLA wright f [facility] 2022-08-02 2022-08-02 [facility] [id number] Co mmon 00:00:00 00:00:00 VISIT NEW Spir it PT LEVEL 4 - [facility] 2022-07-15 2022-07-15 Outpatient Flores_A VFP VFP [id number] Village 00:00:00 00:00:00 [id number] Family Practic e 2022-07-13 2022-07-13 Outpatient [facility] [id number] Univers 15:00:00 15:00:00 LAYLA maravilla o f [facility] 2022-07-13 2022-07-13 (TEL) STLMLC STLMLC [id number] Co mmon 00:00:00 00:00:00 Spirit - [facility] 2022-07-11 2022-07-11 Refill Maksim [facility] 1.2.840.114 [id number] Univers 00:00:00 00:00:00 Layla BALLESTEROS 350.1.13.10 ity of [place] [phone] La dical NAL [address] [place] [address] 2022-05-30 2022-05-30 Outpatient R MAKSIM [facility] [id number] Univers 15:20:00 16:08:25 LAYLA montenegroy o f [facility] 2022-05-30 2022-05-30 Office [facility] 1.2.840.114 [id number] Univers 15:20:00 16:08:25 Visit Layla BALLESTEROS 350.1.13.10 ity [facility] 4.2.7.2.[place] [phone] La dical NAL [address] [place] [address] 2022-05-30 2022-05-30 Orders Doctor GERMAN 1.2.840.114 [id number] Univers 00:00:00 00:00:00 Only Unassigned, YING 350.1.13.10 ity of [place] [facility] 4.2.7.2.686 [place] as [phone] [address] 2022-05-24 2022-05-24 OFFICE STLC STLC [id number] Co mmon 00:00:00 00:00:00 VISIT Spirit ESTAB PT - CHI LEVEL 4 [facility] 2022-05-17 2022-05-17 Emergency X Shaan MONDRAGON [facility] ERT [id number] Univers 17:47:00 22:10:00 ity of [facility] 2022-05-17 2022-05-17 Emergency Shaan Mondragon [facility] 1.2.840.114 [id number] Univers 17:47:00 22:10:00 Corina BALLESTEROS 350.1.13.10 i ty of [place] 4.2.7.2.686 [facility] [phone] [facility] [address] 2022-05-17 2022-05-17 (TEL) STLMLC STLMLC [id number] Co mmon 00:00:00 00:00:00 Spirit - [facility] 2022-04-12 2022-04-12 Refpaulo [facility] 1.2.840.114 [id number] Univers 00:00:00 00:00:00 Qiangjun [place] 350.1.13.10 ity of [place].2.[place] PROF[place] [phone] La dic[address] 2022-02-21 2022-02-21 (TEL) STLMLC STLC [id number] Co mmon 00:00:00 00:00:00 Spirit - [facility] 2022-02-21 2022-02-21 SUB ANNUAL STLMLC STLC [id number] Common 00:00:00 00:00:00 [facility] Spirit WELLNESS - CHI VISIT [facility] 2022-02-21 2022-02-21 OFFICE STLMLC STLC [id number] Co mmon 00:00:00 00:00:00 VISIT [facility] ESTAB PT - CHI LEVEL 4 [facility] 2022-02-18 2022-02-18 Cruzito [facility] 1.2.840.114 [id number] Univers 00:00:00 00:00:00 Qiangjun [place] 350.1.13.10 ity of [place] 4.2.7.2.686 [facility] [phone] La dic[address] 2022-02-10 2022-02-10 (TEL) STLC STLMLC [id number] Co mmon 00:00:00 00:00:00 Spirit - [facility] 2022-02-09 2022-02-09 Cruzito [facility] 1.2.840.114 [id number] Univers 00:00:00 00:00:00 Qiangjun [place] 350.1.13.10 ity [facility] 4.2.7.2.686 [facility] [phone] [address] BUILDING 2022-02-09 2022-02-09 (TEL) STLMLC STLMLC [id number] Co mmon 00:00:00 00:00:00 [facility] 2022-02-09 2022-02-09 (TEL) STLMLC STLMLC [id number] Co mmon 00:00:00 00:00:00 [facility] 2022-01-27 2022-01-27 OFFICE STLMLC STLMLC [id number] Co mmon 00:00:00 00:00:00 VISIT EST Spir it PT LEVEL 3 - [facility] 2022-01-26 2022-01-26 (TEL) STLMLC STLMLC [id number] Co mmon 00:00:00 00:00:00 [facility] 2022-01-24 2022-01-24 Sale [employer] 2, Adc Lab [facility] 1.2.840.114 [id number] Univers 16:15:00 16:30:00 Visit Layla Bianchi 350.1.13.10 ity [facility] 4.2.[place].2.[place] [phone] La dical NAL 353 [facility] 2022-01-24 2022-01-24 Outpatient R MAKSIM, [facility] [id number] Univers 16:15:00 16:15:00 LAYLA ity o f [facility] 2022-01-24 2022-01-24 Outpatient R MAKSIM, [facility] [id number] Univers 15:20:00 15:52:53 LAYLA ity o f [facility] 2022-01-24 2022-01-24 Office Maksim, [facility] 1.2.840.114 [id number] Univers 15:20:00 15:52:53 Visit Layla BALLESTEROS 350.1.13.10 ity [facility] 4.2.7.2.[place] [phone] La dical NAL 059 [facility] 2022-01-24 2022-01-24 Outpatient R MAKSIM, [facility] [id number] Univers 15:20:00 15:20:00 LAYLA sharif [facility] 2022-01-24 2022-01-24 Outpatient R MAKSIM [facility] [id number] Univers 15:20:00 15:20:00 LAYLA sharif [facility] 2021-12-13 2021-12-13 Iraan [facility] 1.2.393.180 [id number] Univers 00:00:00 00:00:00 Layla BALLESTEROS 350.1.13.10 ity of [place].2.[place] [phone] La dical NAL 059 [facility] 2021-11-16 2021-11-16 Letter [facility] 1.2.840.114 [id number] Univers 00:00:00 00:00:00 (Out) Marissa C [place] 350.1.13.10 i ty of [place] 4.2.7.2.[place] [phone] La dicil NAL 296 [facility] 2021-11-16 2021-11-16 Letter [facility] 1.2.840.114 [id number] Univers 00:00:00 00:00:00 (Out) Marissa C [place] 350.1.13.10 i ty of [place] 4.2.7.2.[place] [phone] La dical NAL 296 [facility] 2021-11-11 2021-11-11 Office Jerilyn [facility] 1.2.840.114 [id number] Univers 15:00:00 15:48:22 Visit Cosmo BALLESTEROS 350.1.13.10 i ty of [place] 4.2.7.2.[place] [phone] La dical NAL 085 [facility] 2021-11-11 2021-11-11 Outpatient R COSMO DE [facility] 10 [id number] Univers 15:00:00 15:48:22 COSMO DE i ty of [facility] 2021-11-11 2021-11-11 Outpatient R COSOM DE [facility] 10 [id number] Univers 15:00:00 15:00:00 COSMO DE i ty [facility] 2021-11-03 2021-11-03 Sale [employer] Keegan, [facility] Lab Main [facility] 1.2.8 40.114 [id number] Univers 16:15:00 16:30:00 Visit Layla Bianchi 350.1.13.10 ity of [facility] 4.2.7.2.[place] [phone] [facility] 353 [facility] 2021-11-03 2021-11-03 Outpatient R MAKSIM [facility] [id number] Univers 16:15:00 16:15:00 LAYLA maravilla o f [facility] 2021-11-03 2021-11-03 Orders Doctor GERMAN 1.2.840.114 [id number] Univers 00:00:00 00:00:00 Only Unassigned, YING 350.1.13.10 [facility] 4.2.7.2.686 [place] as [phone] [address] 2021-11-02 2021-11-02 Ancillary Therapist, [facility] Pulmonary [facility] 1.2.840.114 [id number] Univers 15:00:00 16:00:00 Visit Masoud Santana 350.1.13. 10 ity of [place].7.2.[place] [phone] [facility] 296 [facility] 2021-11-02 2021-11-02 Ancillary Therapist, [facility] Pulmonary [facility] 1.2.840.114 [id number] Univers 15:00:00 16:00:00 Visit Masoud Santana 350.1.13. 10 ity of [place].7.2.[place] [phone] [address] 2021-11-02 2021-11-02 Outpatient Merissa SANTANA [facility] [id number] Univers 15:00:00 15:00:00 MASOUD maravilla [facility] 2021-11-02 2021-11-02 Outpatient R MAX [facility] [id number] Univers 15:00:00 15:00:00 MASOUD maravilla [facility] 2021-10-28 2021-10-28 Ancillary Therapist, [facility] Pulmonary [facility] 1.2.840.114 [id number] Univers 15:00:00 16:00:00 Visit Masoud Santana 350.1.13. 10 ity of [facility] 4.2.7.2.[place] [phone] La dical NAL 296 [facility] 2021-10-28 2021-10-28 Outpatient R MAX [facility] [id number] Univers 15:00:00 15:00:00 MASOUD maravilla [facility] 2021-10-26 2021-10-26 Ancillary Therapist, [facility] Pulmonary [facility] ..840.114 [id number] Univers 15:00:00 16:00:00 Visit Masoud Santana 350.1.13. 10 ity of [facility] 4.2.7.2.[place] [phone] [facility] 296 [facility] 2021-10-26 2021-10-26 [facility] [id number] Univers 15:00:00 15:00:00 MASOUD maravilla [facility] 2021-10-25 2021-10-25 Out[facility] [id number] Univers 15:00:00 15:41:05 LAYLA maravilla o f [facility] 2021-10-25 2021-10-25 Office [facility] 1.2.840.114 [id number] Univers 15:00:00 15:41:05 Visit Layla BALLESTEROS 350.1.13.10 ity of [place] 4[place].7.2.[place] [phone] La dicil NAL 059 [facility] 2021-10-25 2021-10-25 Outpatient [facility] [id number] Univers 15:00:00 15:00:00 LAYLA maravilla o f [facility] 2021-10-22 2021-10-25 Ancillary Therapist, [facility] Pulmonary [facility] 1.2.840.114 [id number] Univers 15:00:00 10:35:34 Visit Masoud Santana 350.1.13. 10 ity of [facility] 4.2.7.2.[place] [phone] La dical NAL 296 [facility] 2021-10-22 2021-10-25 Outpatient R SANTANA [facility] [id number] Univers 15:00:00 10:35:34 MASOUD gomez [facility] 2021-10-22 2021-10-22 Outpatient R SANTANA [facility] [id number] Univers 15:00:00 15:00:00 MASOUD gomez [facility] 2021-10-22 2021-10-22 Outpatient [facility] [id number] Univers 15:00:00 15:00:[address] [facility] [place] [place] 2021-10-22 2021-10-22 Orders Doctor PORTER 1.2.840.114 [id number] Univers 00:00:00 00:00:00 Only Unassigned, YING 350.1.13.10 ity of [place] [facility] 4.2.7.2.686 T[place] as [phone] [address] 2021-10-21 2021-10-21 Ancillary Therapist, Adc Pulmonary [facility] 1.2.840.114 [id number] Univers 15:00:00 16:00:00 Visit Masoud Santana 350.1.13. 10 ity [facility] 4.2.7.2.[place] [phone] La dical [address] 2021-10-21 2021-10-21 Outpatient R [facility] [id number] Univers 15:00:00 15:00:[address] [facility] [place] [place] 2021-10-21 2021-10-21 Orders Doctor PORTER 1.2.840.114 [id number] Univers 00:00:00 00:00:00 Only Unassigned, YING 350.1.13.10 ity of [place] [facility] 4.2.7.2.686 Tanner as [phone] [facility] jitendra 009 Lucien 2021-10-19 2021-10-19 Orders Doctor PORTER 1.2.840.114 [id number] Univers 00:00:00 00:00:00 Only Unassigned, YING 350.1.13.10 ity of [place] [facility] 4.2.7.2.686 Tanner as [id number] [address] 2021-10-13 2021-10-13 Orders Doctor GERMAN 1.2.840.114 [id number] Univers 00:00:00 00:00:00 Only Unassigned, YING 350.1.13.10 ity of [place] [facility] 4.2.7.2.686 Tanner as [phone] [address] 2021-10-12 2021-10-12 Ancillary Therapist, [facility] Pulmonary [facility] 1.2.840.114 [id number] Univers 15:00:00 16:00:00 Visit Masoud Santana 350.1.13. 10 ity of [place].2.[place] [id number] [address] 2021-10-12 2021-10-12 Outpatient [facility] [id number] Univers 15:00:00 15:00:00 MASOUD maravilla [facility] 2021-10-08 2021-10-08 Ancillary Therapist, [facility] Pulmonary [facility] 1.2.840.114 [id number] Univers 13:00:00 14:00:00 Visit Masoud Santana 350.1.13. 10 ity of [place] 4[place]2.7.2.[place] [id number] [address] 2021-10-08 2021-10-08 Outpatient Merissa [facility] [id number] Univers 13:00:00 13:00:00 MASOUD itgomez [facility] 2021-10-08 2021-10-08 Orders Doctor PORTER 1.2.840.114 [id number] Univers 00:00:00 00:00:00 Only Unassigned, YING 350.1.13.10 ity of [place] [facility]OS[facility]ITAL 4.2.7.2.686 Tanner as [phone] [address] 2021-10-05 2021-10-05 Ancillary Therapist, [facility] Pulmonary [facility] 1.2.840.114 [id number] Univers 15:00:00 16:00:00 Visit Masoud Santana 350.1.13. 10 ity of [place].7.2.[place] [phone] [address] 2021-10-05 2021-10-05 Outpatient R MAX [facility] [id number] Univers 15:00:00 15:00:[address] [facility] [place] [place] 2021-10-05 2021-10-05 Orders Doctor GERMAN 1.2.840.114 [id number] Univers 00:00:00 00:00:00 Only Unassigned, YING 350.1.13.10 [facility] 4.2.7.2.686 Tanner as [phone] [address] 2021-09-30 2021-09-30 Outpatient [facility] [id number] Univers 15:00:00 15:00:[address] [facility] [place] 2021-09-30 2021-09-30 Telephone [facility] 1.2.274.042 [id number] Univers 00:00:00 00:00:00 Marissa C [place] 350.1.13.10 i ty of [place].2.[place] [id number] [address] 2021-09-29 2021-09-29 Telephone [facility] 1.2.141.625 [id number] Univers 00:00:00 00:00:00 Marissa C [place] 350.1.13.10 i ty of [place] 4[place].7.2.[place] [phone] [address] 2021-09-28 2021-09-28 Outpatient Merissa SANTANA [facility] [id number] Univers 15:00:00 15:00:00 MASOUD gomez [facility] 2021-09-23 2021-09-23 Outpatient Merissa SANTANA [facility] [id number] Univers 15:00:00 16:23:[address] [facility] [place] 2021-09-23 2021-09-23 Ancillary Therapist, Adc Pulmonary [facility] 1.2.840.114 [id number] Univers 15:00:00 16:23:10 Visit Masoud Santana 350.1.13. 10 ity of [place].7.2.[place] [phone] [address] 2021-09-23 2021-09-23 Ancillary Therapist, Adc Pulmonary [facility] 1.2.840.114 [id number] Univers 15:00:00 16:23:10 Visit Masoud Santana 350.1.13. 10 ity of [facility] 4.2.7.2.[place] [id number] [address] 2021-09-23 2021-09-23 Outpatient R MAX [facility] [id number] [facility] 15:00:00 16:23:10 MASOUD maravilla [facility] 2021-09-21 2021-09-22 Ancillary Therapist, [facility] Pulmonary [facility] .2.840.114 [id number] [facility] 15:00:00 10:06:36 Visit Masoud Santana 350.1.13. 10 ity of [facility] 4.2.7.2.[place] [id number] [address] 2021-09-21 2021-09-22 Outpatient R MAX [facility] [id number] Univers 15:00:00 10:06:36 MASOUD maravilla [facility] 2021-09-21 2021-09-21 Ancillary Therapist, [facility] Pulmonary [facility] 1.2.840.114 [id number] Univers 15:00:00 16:00:00 Visit Masoud Santana 350.1.13. 10 ity of [facility] 4.2.7.2.[place] [id number] [address] 2021-09-16 2021-09-16 Outpatient R MAX [facility] [id number] Univers 15:00:00 18:13:11 MASOUD maravilla [facility] 2021-09-16 2021-09-16 Ancillary Therapist, [facility] Pulmonary [facility] 1.2.840.114 [id number] Univers 15:00:00 18:13:11 Visit Masoud Santana 350.1.13. 10 ity of [facility] 4.2.7.2.[place] [phone] La dical NAL 296 [facility] 2021-09-16 2021-09-16 Orders Doctor GERMAN 1.2.840.114 [id number] Univers 00:00:00 00:00:00 Only Unassigned, YING 350.1.13.10 [facility] 4.2.7.2.686 [place] as [phone] [address] 2021-09-16 2021-09-16 Telephone [facility] 1.2.997.286 [id number] Univers 00:00:00 00:00:00 Shijohnie BALLESTEROS 350.1.13.10 i ty of [facility] 4.2.7.2.[place] [phone] La dical NAL 085 [facility] 2021-09-16 2021-09-16 Telephone [facility] 1.2.958.915 [id number] Univers 00:00:00 00:00:00 Cosmo BALLESTEROS 350.1.13.10 i ty of [place] 4[place]2.7.2.[place] [phone] La dical NAL 085 [facility] 2021-09-14 2021-09-14 Ancillary Therapist, Adc Pulmonary [facility] 1.2.840.114 [id number] Univers 15:00:00 16:31:27 Visit Masoud Santana 350.1.13. 10 ity of [facility] 4.2.7.2.[place] [phone] La dical [facility] 296 [facility] 2021-09-14 2021-09-14 Outpatient R MAX [facility] [id number] Univers 15:00:00 15:00:00 MASOUD maravilla [facility] 2021-09-09 2021-09-09 Telephone Robin [facility] 1.2.963.473 [id number] Univers 00:00:00 00:00:00 Marissa C [place] 350.1.13.10 i ty of [place].2.[place] [id number] La dical [address] 2021-09-08 2021-09-08 Orders Doctor PORTER 1.2.840.114 [id number] Univers 00:00:00 00:00:00 Only Unassigned, YING 350.1.13.10 [facility] 4.2.7.2.686 [place] as [phone] [address] 2021-09-07 2021-09-07 Outpatient R MAX [facility] [id number] Univers 15:00:00 17:10:59 MASOUD maravilla [facility] 2021-09-07 2021-09-07 Ancillary Therapist, Adc Pulmonary [facility] 1.2.840.114 [id number] Univers 15:00:00 17:10:59 Visit Masoud Santana 350.1.13. 10 ity of [place].2.[place] [phone] La dic[address] 2021-08-31 2021-08-31 Telephone [facility] 1.2.513.908 [id number] Univers 00:00:00 00:00:00 Marissa C [place] 350.1.13.10 i ty of [facility] 4.2.7.2.[place] [phone] La dic[address] 2021-08-30 2021-08-30 Outpatient R MAX [facility] [id number] Univers 13:00:00 13:21:59 MASOUD maravilla [facility] 2021-08-30 2021-08-30 Ancillary Therapist, [facility] Pulmonary [facility] 1.2.840.114 [id number] Univers 13:00:00 13:21:59 Visit Masoud Santana 350.1.13. 10 ity of [facility] 4.2.7.2.[place] [id number] [address] 2021-08-30 2021-08-30 Orders Doctor PORTER 1.2.840.114 [id number] Univers 00:00:00 00:00:00 Only Unassigned, YING 350.1.13.10 ity of [place] [facility] 4.2.7.2.686 Tanner as [phone] [address] 2021-08-23 2021-08-23 Telephone [facility] 1.2.169.041 [id number] Univers 00:00:00 00:00:00 Marissa C [place] 350.1.13.10 i ty [place]2.[place] [id number] La dical NAL 296 [facility] 2021-08-19 2021-08-19 Telephone [facility] 1.2.765.346 [id number] Univers 00:00:00 00:00:00 Marissa C [place] 350.1.13.10 i ty of [place].2.[place] [id number] La dical NAL 296 [facility] 2021-08-13 2021-08-13 Outpatient R PHONG [facility] [id number] Univers 14:30:00 14:30:00 NARENDRA maravilla [facility] 2021-08-13 2021-08-13 Imm/Inj Nurse, Adc Pob Immunization [facility] [id number] [id number] Univers 14:30:00 14:30:00 Visit Narendra Darling 350.1.13 .10 [id number] [phone] La dical [facility] [address] [facility] 2021-08-13 2021-08-13 Outpatient R PHONG [facility] [id number] Univers 14:30:00 14:25:41 NARENDRA maravilla [facility] 2021-08-13 2021-08-13 Outpatient R COSMO DE [facility] 10 [id number] Univers 13:00:00 14:15:10 COSMO DE i ty of [facility] 2021-08-13 2021-08-13 Office Jerilyn [facility] 1.2.840.114 [id number] Univers 13:00:00 14:15:10 Visit Cosmo BALLESTEROS 350.1.13.10 [id number] [phone] [place] dicmicki NAL [address] [place] [address] 2021-08-04 2021-08-04 Outpatient R COSMO DE [facility] 10 [id number] Univers 09:16:54 23:59:00 COSMO DE i ty of [facility] 2021-08-04 2021-08-04 [facility] 1.2.840.114 [id number] Univers 09:16:54 23:59:00 Encounter Shiwan SPECIALTY [id number] [id number] [phone] [place] donte[address] 2021-08-04 2021-08-04 [facility] 1.2.840.114 [id number] Univers 09:16:31 23:59:00 [facility] [id number] [id number] [phone] [address] don[address] 2021-07-23 2021-07-23 [facility] [id number] Univers 00:00:00 00:00:00 Cosmo BALLESTEROS 350.1.13.10 [id number] [phone] [address] 2021-06-17 2021-06-17 Sale Professional [employer] Therapist, Adc Respiratory [facility] 1.2.840.114 [id number] Univers 14:00:00 15:30:00 Visit Masoud Santana 350.1.13. 10 [id number] [phone] [address] 2021-06-17 2021-06-17 Outpatient R MAX [facility] [id number] Univers 14:00:00 14:00:00 MASOUD maravilla of [facility] 2021-06-17 2021-06-17 Orders RODERICK De [id number] Univers 00:00:00 00:00:00 Only [facility] 350.1.13.10 i ty of [facility] 4[place] [phone] [address] 2021-06-02 2021-06-02 [facility] 1.2.840.114 [id number] Univers 00:00:00 00:00:00 Layla [place] 350.1.13.10 ity of [facility] [place] [phone] [address] 2021-05-21 2021-05-21 ([facility]EL) [facility] [id number] Co mmon 00:00:00 00:00:00 [facility] 2021-05-17 2021-05-17 Refpaulo [facility] 1.2.840.114 [id number] Univers 00:00:00 00:00:00 Layla [place] 350.1.13.10 ity of [facility] [place] [phone] [address] 2021-05-14 2021-05-14 Refpaulo [facility] 1.2.840.114 [id number] Univers 00:00:00 00:00:00 Layla [place] 350.1.13.10 ity of [place] [phone] [address] 2021-05-14 2021-05-14 ([facility]EL) [facility] ST[facility] [id number] Co mmon 00:00:00 00:00:00 [facility] 2021-05-13 2021-05-13 Outpatient R COSMO DE [facility] 10 [id number] Univers 14:30:00 15:10:14 COSMO DE i ty of [facility] 2021-05-13 2021-05-13 Office Jerilyn [facility] 1.2.840.114 [id number] Univers 14:26:13 15:10:14 Visit Cosmo BALLESTEROS 350.1.13.10 i ty of [facility] 4.2.[place] [phone] La jose NAL 085 [facility] 2021-05-11 2021-05-11 Refill [facility] 1.2.840.114 [id number] Univers 00:00:00 00:00:00 Trentontoddjeanne NAPOLEONTIKA 350.1.13.10 ity of [facility] 4.[place] [phone] La dical NAL 059 [facility] 2021-04-30 2021-04-30 OFFICE [facility] [id number] Co mmon 00:00:00 00:00:00 VISIT EST Spir it PT LEVEL 3 - [facility] 2021-04-26 2021-04-26 Office [facility] 1.2.840.114 [id number] Univers 15:19:51 16:02:28 Visit Layla Ballesteros 350.1.13.10 ity of [place] [phone] La dontemicki nal 059 [facility] 2021-04-26 2021-04-26 Outpatient R MAKSIM [facility] [id number] Univers 15:20:00 15:20:00 LAYLA maravilla o f [facility] 2021-04-26 2021-04-26 Orders Doctor GERMAN 1.2.840.114 [id number] Univers 00:00:00 00:00:00 Only Unassigned, YING 350.1.13.10 ity of [place] [facility] 4.2.7.2.686 [place] as [phone] [address] 2021-04-12 2021-04-12 Telephone [facility] 1.2.210.580 [id number] Univers 00:00:00 00:00:00 Trentontoddjeanne Isaac 350.1.13.10 ity of [place] [phone] La donteal nal 059 [facility] 2021-04-07 2021-04-07 [facility]ulo [facility] 1.2.840.114 [id number] Univers 00:00:00 00:00:00 Trentontoddjeanne [place] 350.1.13.10 ity of [place] [phone] [address] 2021-04-02 2021-04-02 (TEL) STLMLC STLMLC [id number] Co mmon 00:00:00 00:00:00 [facility] 2021-03-30 2021-03-30 (TEL) STLMLC STLMLC [id number] Co mmon 00:00:00 00:00:00 [facility] 2021-03-29 2021-03-29 Orders Doctor PORTER 1.2.840.114 [id number] Univers 00:00:00 00:00:00 Only Unassigned, YING 350.1.13.10 [facility]y of [facility] 4.2.7.2.686 [place] as [phone] [address] 2021-03-24 2021-03-24 (TEL) STLMLC STLMLC [id number] Co mmon 00:00:00 00:00:00 [facility] 2021-03-17 2021-03-17 [facility] 1.2.840.114 [id number] Univers 00:00:00 00:00:00 Layla Ballesteros 350.1.13.10 [place]y of [place] [phone] [address] 2021-03-11 2021-03-11 OFFICE STLMLC STLMLC [id number] Co mmon 00:00:00 00:00:00 VISIT [facility] LEVEL 4 [facility] 2021-03-04 2021-03-04 Outpatient R COSMO DE [facility] [id number] Univers 15:00:00 15:00:00 COSMO DE i [facility] [place] 2021-02-22 2021-02-22 (TEL) STLMLC STLMLC [id number] Co mmon 00:00:00 00:00:00 Spirit - [facility] 2020-12-29 2020-12-29 OFFICE STLMLC STLMLC [id number] Co mmon 00:00:00 00:00:00 VISIT Spirit ESTAB PT - CHI LEVEL 4 [facility] 2020-12-10 2020-12-10 (TEL) STLMLC STLMLC [id number] Co mmon 00:00:00 00:00:00 [facility] 2020-12-02 2020-12-02 Outpatient R MAKSIM [facility] [id number] Univers 14:20:00 14:20:00 LAYLA taiwo wright f [facility] 2020-11-26 2020-11-26 (TEL) STLMLC STLMLC [id number] Co mmon 00:00:00 00:00:00 [facility] 2020-11-24 2020-11-24 OFFICE STLMLC STLMLC [id number] Co mmon 00:00:00 00:00:00 VISIT EST Spir it PT LEVEL 3 - [facility] 2020-10-30 2020-10-30 Outpatient R COSMO DE [facility] 10 [id number] Univers 15:30:00 15:30:00 COSMO DE i ty [facility] [place] 2020-10-19 2020-10-19 OFFICE STLMLC STLMLC [id number] Co mmon 00:00:00 00:00:00 VISIT Spirit ESTAB PT - CHI LEVEL 4 [facility] 2020-10-08 2020-10-08 Outpatient R COSMO DE [facility] 10 [id number] Univers 15:30:00 15:30:00 COSMO DE i ty [facility] [place] 2020-10-01 2020-10-01 Inpatient VIK Atkinson OBDULIO REYNOLDSTO [id number] [facility] 07:00:11 07:00:11 [facility] 2020-09-30 2020-09-30 Outpatient VIK Atkinson OBDULIO HCATO [id number] [facility] 08:16:19 08:16:19 Wilver 68 [place] [facility] 2020-09-24 2020-09-24 Letter GERMAN Diaz 1.2.840.114 [id number] 00:00:00 00:00:00 (Out) Aliyah HE 350.1.13.[address]686 [id number] [id number] 2020-09-24 2020-09-24 [facility]rendra [facility] [id number] [id number] 00:00:00 00:00:00 Layla Ballesteros 350.1.13.10 [place] [address].2.7.2.686 Professio [phone] nal 059 [facility] 2020-09-23 2020-09-23 Laboratory Only, [facility] 1.2.840.114 [id number] 13:54:59 14:09:59 Only Test Isaac 350.1.13.10 [place] [address].2.7.2.686 [place] [phone] 353 2020-09-23 2020-09-23 Outpatient R [facility] [id number] Univers 13:45:00 13:45:00 ity of [facility] 2020-09-21 2020-09-21 (TEL) STLMLC STLMLC [id number] Co mmon 00:00:00 00:00:00 Spirit - [facility] 2020-09-17 2020-09-17 OFFICE STLMLC STLMLC [id number] Co mmon 00:00:00 00:00:00 VISIT Spirit ESTAB PT - CHI LEVEL 4 [facility] 2020-09-16 2020-09-16 [facility] [id number] Univers 14:00:00 23:59:00 LAYLA maravilla o f [facility] 2020-09-16 2020-09-16 [facility] [id number] Univers 14:00:00 14:00:00 LAYLA maravilla o f [facility] 2020-09-15 2020-09-15 Orders Doctor PORTER 1.2.840.114 [id number] 00:00:00 00:00:00 Only Unassigned, YING 350.1.13.10 [place] [address]686 [id number] 009 2020-09-14 2020-09-14 Telephone [facility] [id number] 00:00:00 00:00:00 Layla Ballesteros 350.1.13.10 [place] 4.2.7.2.686 Professio [phone] [facility] 059 [facility] 2020-09-14 2020-09-14 Orders Doctor GERMAN 1.2.840.114 [id number] 00:00:00 00:00:00 Only Unassigned, YING 350.1.13.10 [place] [facility] 4.2.7.2.686 [id number] 009 2020-09-10 2020-09-10 (TEL) STLMLC STLMLC [id number] Co mmon 00:00:00 00:00:00 Spirit - [facility] 2020-09-09 2020-09-09 Outpatient YASH Atkinson [id number] [facility] 18:14:00 18:14:[address] [place] [address] 2020-09-01 2020-09-01 Office [facility] 1.2.840.114 [id number] 14:21:14 15:04:24 Visit Layla Ballesteros 350.1.13.10 [place] 4.2.7.2.686 Profbensonio [phone] [facility]9 [facility] 2020-09-01 2020-09-01 Outpatient R MAKSIM [facility] [id number] Univers 14:20:00 14:20:00 LAYLA wright f [facility] 2020-07-09 2020-07-09 Outpatient R COSMO DE [facility] 10 [id number] Univers 15:20:00 15:20:00 COSMO DE i ty [facility] [place] 2020-06-02 2020-06-02 Outpatient R MAKSIM [facility] [id number] Univers 14:00:00 14:00:00 LAYLA wright f [facility] 2020-05-07 2020-05-07 OFFICE STLMLC STLMLC [id number] Co mmon 00:00:00 00:00:00 VISIT Spirit ESTAB PT - CHI LEVEL 4 [facility] 2020-04-24 2020-04-24 Outpatient R YARED HIGH [facility] [id number] Univers 13:00:00 [facility]:00:00 [facility] 2020-04-13 2020-04-13 (TEL) STLMLC STLMLC [id number] Co mmon 00:00:00 00:00:00 [facility] 2020-04-02 2020-04-02 Outpatient R COSMO DE [facility] 10 [id number] Univers 14:20:00 14:20:00 COSMO DE i ty [facility] 2020-03-16 2020-03-16 Out[facility] [id number] Common 10:52:00 10:52:00 t [employer] [address] [facility] 2020-03-13 2020-03-13 [facility] [id number] Univers 16:30:00 16:30:00 QIANGJUN ity o [facility] 2020-03-12 2020-03-12 Outpatient R [facility] [id number] Univers 16:00:00 16:00:00 [facility] 2020-03-06 2020-03-06 [facility] [id number] Common 10:09:00 10:09:00 t [employer] [address] [facility] 2020-03-05 2020-03-05 Outpatient R [facility] [id number] Univers 16:00:00 16:00:00 [facility] 2020-03-05 2020-03-05 Out[facility] [id number] Common 11:51:00 11:51:00 t [employer] [address] [facility] 2020-03-03 2020-03-03 [facility] [id number] Univers 14:00:00 14:00:00 QIANGJUN ity o f [facility] 2020-02-11 2020-02-11 Outpatient R [facility] [id number] Univers 16:00:00 16:00:00 [facility] 2020-02-05 2020-02-05 [facility] [id number] Common 13:00:00 13:00:[address] [facility] 2020-02-05 2020-02-05 Outpatient [facility] [id number] Common 13:00:00 13:00:[address] [facility] 2020-01-09 2020-01-09 Outpatient [facility] [id number] Common 14:26:00 14:26:00 [facility] 2020-01-06 2020-01-06 Outpatient [facility] [id number] Common 15:48:00 15:48:[address] [facility] 2019-12-04 2019-12-04 Outpatient [facility] [id number] Common 07:12:00 07:12:[address] [facility] 2019-12-02 2019-12-02 Outpatient R MAKSIM, [facility] [id number] Univers 15:20:00 15:20:00 QIANGJUN ity o f [facility] 2019-11-22 2019-11-22 Outpatient [facility] [id number] Common 09:19:00 09:19:[address] [facility] 2019-11-01 2019-11-01 Outpatient [facility] [id number] Common 11:46:00 11:46:[address] [facility] 2019-10-30 2019-10-30 Outpatient R MAKSIM, [facility] [id number] Univers 11:00:00 11:00:00 QIANGJUN ity o f [facility] 2019-10-29 2019-10-29 Outpatient [facility] [id number] Common 11:16:00 11:16:[address] [facility] 2019-10-18 2019-10-18 Outpatient [facility] [id number] Common 09:30:00 09:30:[address] [facility] 2019-10-17 2019-10-17 Outpatient [facility] [id number] Common 10:49:00 10:49:[address] [facility] 2019-10-04 2019-10-04 Outpatient [facility] [id number] Common 10:26:00 10:26:[address] [facility] 2019-10-03 2019-10-03 Outpatient [facility] [id number] Common 13:45:00 13:45:[address] [facility] 2019-10-02 2019-10-02 Outpatient [facility] [id number] Common 10:11:00 10:11:[address] [facility] [address] Sp[address] [facility] 2019-10-01 2019-10-01 Outpatient R MAKSIM, [facility] [id number] Univers 13:00:00 13:00:00 QIANGJUN ity o f [facility] 2019-09-20 2019-09-20 Outpatient [facility] [id number] Common 15:05:00 15:05:[address] [facility] 2019-09-12 2019-09-12 Outpatient [facility] [id number] Common 11:15:00 11:15:[address] [facility] 2019-09-09 2019-09-09 Outpatient R MAKSIM, [facility] [id number] Univers 15:00:00 15:00:00 QIANGJUN ity o f [facility] 2019-08-30 2019-08-30 Outpatient [facility] [id number] Common 15:13:00 15:13:[address] [facility] 2019-08-28 2019-08-28 Outpatient R MAKSIM, [facility] [id number] Univers 14:00:00 14:00:00 QIANGJUN ity o f [facility] 2019-08-05 2019-08-05 Outpatient R MAKSIM, [facility] [id number] Univers 15:52:15 23:59:00 TRENTONTODDJEANNE ity o f [facility] 2019-06-07 2019-06-07 Outpatient [facility] [id number] Common 15:51:00 15:51:[address] [facility] 2019-04-01 2019-04-01 Outpatient [facility] [id number] Common 15:30:00 15:30:[address] [facility] 2019-02-27 2019-02-27 Telephone [facility] [id number] Univers 00:00:00 00:00:00 Layla [place] 350.1.13.10 ity of [place].2.[place] [phone] [address] 2019-02-05 2019-02-05 Refill [facility] 1.2.840.114 [id number] Univers 00:00:00 00:00:00 Layla [place] 350.1.13.10 ity of [place].2.[place] [phone] [place] [address] 2019-01-28 2019-01-28 Outpatient [facility] [id number] Common 13:59:00 13:59:[address] [facility] 2019-01-25 2019-01-25 Orders Doctor PORTER 1.2.840.114 [id number] Univers 00:00:00 00:00:00 Only Unassigned, YING 350.1.13.10 ity of [place] [facility] 4.2.7.2.686 [place] as [phone] [address] 2019-01-12 2019-01-12 Outpatient [facility] [id number] Common 10:26:00 10:26:[address] [facility] 2018-12-19 2018-12-19 Outpatient [facility] [id number] Common 11:30:00 11:30:[address] [facility] 2018-11-12 2018-11-12 Outpatient [facility] [id number] Common 11:20:00 11:20:[address] [facility] 2018-09-26 2018-09-26 Outpatient [facility] [id number] Common 15:59:00 15:59:[address] [facility] 2018-08-06 2018-08-06 Outpatient [facility] [id number] Common 13:45:00 13:45:[address] [facility] 2018-04-17 2018-04-17 Outpatient [facility] [id number] Common 15:41:00 15:41:[address] [facility] [address] [facility] 2018-01-31 2018-01-31 Outpatient [facility] [id number] Common 13:15:00 13:15:[address] [facility] 2018-01-16 2018-01-16 Outpatient [facility] [id number] Common 14:00:00 14:00:[address] [facility] 2016-07-05 2016-07-06 [place] [id number] Memoria 19:02:00 05:59:00 Services r Outpatient 01 l Imaging Eliot Mccabe 2016-07-05 2016-07-06 [place] [id number] Memoria 19:02:00 05:59:00 Services r Outpatient 01 l Jasper Mccabe 2016-07-05 2016-07-05 Outpatient Tung, MHOIH MHOIH [id number] 13:02:00 23:59:00 Jorge Ortiz 2016-07-05 2016-07-05 Outpatient MHIE MHIE [id number] Memoria 14:45:00 14:45:00 05 zulma Mccabe 2016-07-05 2016-07-05 Outpatient MHIE MHIE [id number] Memoria 14:45:00 14:45:00 05 zulma Mccabe 2016-05-16 2016-05-17 Outpt Diag nullFlavo [facility] [id number] Memoria 19:44:00 05:59:00 Services r Outpatient 00 l Imaging Eliot [place] 2016-05-16 2016-05-17 Outpt Diag nullFlavo [facility] [id number] Memoria 19:44:00 05:59:00 Services r Outpatient 00 l Imaging Eliot [place] 2016-05-16 2016-05-16 Outpatient Tung [facility] [id number] 13:44:00 23:59:00 Jorge Charli Angel 2016-05-16 2016-05-16 Outpatient MHIE MHIE [id number] Memoria 11:30:00 11:30:00 06 zulma Eliot 2016-05-16 2016-05-16 Outpatient MHIE MHIE [id number] Memoria 11:30:00 11:30:00 06 zulma [place] 2016-04-14 2016-04-14 Outpatient MHIE MHIE [id number] Memoria 13:00:00 13:00:00 04 zulma Eliot 2016-04-14 2016-04-14 Outpatient MHIE MHIE [id number] Memoria 13:00:00 13:00:00 04 zulma [place] 2016-04-01 2016-04-06 Inpatient [facility]Flavo [facility] [id number] Memoria 10:10:00 19:48:00 r Eliot 00 [facility] 2016-04-01 2016-04-06 Inpatient nullFlavo [facility] [id number] Memoria 10:10:00 19:48:00 r Eliot 00 [facility] 2016-04-01 2016-04-06 Outpatient Tung [facility] [id number] 05:10:00 14:48:00 Jorge Charli Angel 2016-04-01 2016-04-01 Outpatient MHIE MHIE [id number] Memoria 08:00:00 08:00:00 03 zulma [place] 2016-04-01 2016-04-01 Outpatient MHIE MHIE [id number] Memoria 08:00:00 08:00:00 03 zulma Mccabe 2016-03-31 2016-03-31 Outpatient MHIE MHIE [id number] Memoria 08:30:00 08:30:00 02 zulma Mccabe 2016-03-31 2016-03-31 Outpatient CHELO CHELO [id number] Memoria 08:30:00 08:30:00 02 zulma Mccabe 2016-03-15 2016-03-15 Outpatient FABIOLA CHELO [id number] Memoria 09:30:00 09:30:00 01 zulma Mccabe 2016-03-15 2016-03-15 Outpatient CHELO CHELO [id number] Memoria 09:30:00 09:30:00 01 zulma Mccabe [...] 32.1 g/dL 31.6-35.1 RDW-SD (test code = 56578-2) 52.1 fL 39.0-49.9 H RDW-CV (test code = 788-0) 15.2 % 12.0-15.5 PLT (test code = 777-3) See_Comment [Au tomated message] The system which ge nerated this result transmit james reference range: 166 - 35 8 10*3/?L. The reference range was not used to interpret th is result as normal/abnormal . MPV (test code = 52251-9) 9.3 fL 9.5-12.9 L NRBC/100 WBC (test code = See_Comment [ Automated message] The [id number]) system which [employer] nerated this result transmit james reference range: 0.0 - 10 .0 /100 WBCs. The reference r malinda was not used to interpr et this result as normal/abnor mal. NRBC x10^3 (test code = See_Comment [Au tomated message] The [id number]) system which [employer] nerated this result transmit james reference range: 10*3/?L. The reference range was not u sed to interpret this result as normal/abnormal . GRAN MAT (NEUT) % (test code 79.9 % = 770-8) IMM GRAN % (test code = 0.60 % [id number]) LYMPH % (test code = 736-9) 9.9 % MONO % (test code = 5905-5) 6.6 % EOS % (test code = 713-8) 2.6 % BASO % (test code = 706-2) 0.4 % GRAN MAT x10^3(ANC) (test 12.68 10*3/uL 1.88-7.09 H code = 5882593351) IMM GRAN x10^3 (test code = 0.10 10*3/uL 0.00-0.06 H [id number]) LYMPH x10^3 (test code = 1.57 10*3/uL 1.32-3.29 731-0) MONO x10^3 (test code = 1.04 10*3/uL 0.33-0.92 H 742-7) EOS x10^3 (test code = 0.41 10*3/uL 0.03-0.39 H 711-2) BASO x10^3 (test code = 0.06 10*3/uL 0.01-0.07 704-7) Lab Interpretation (test Abnormal code = 06207-7) [facility] METABOLIC [id number] 06:22:00 Test Item Value Reference Range Interpretation [...] RATE (test code = GFR) mL/mi n/1.73 q6Eilobncqy Range:Healthy Adults >90 mL/min/1.73 m2 For Chronic Kidney Disease: Stage II Mild Decrease i n GFR 60-90 Stage III Moderate Decrea se in GFR 30-59 St age IV Severe Decre ase in GFR 15-29 St age V Kidney Failur e <15 CREATININE (test code 1.13 mg/dL 0.55-1.30 N = CREAT) CALCIUM (test code = 8.6 mg/dL 8.2-10.1 N CA) HGB [id number] 05:57:00 Test Item Value Reference Range Interpretation Comments HEMOGLOBIN (test code = HGB) 11.4 g/dL 12-16 L HEMATOCRIT (test code = HCT) 35.5 % 37-47 L SPECIMEN COMMENT: POD #1PROTHROMBIN [id number] 17:08:00 Test Item Value Reference Range Interpretation [...] BLOOD, PT every other day NTHROMBOPLASTIN TIME [id number] 17:08:00 Test Item Value Reference Range Interpretation Comments PTT ACTIVATED (test code = APTT) 34.0 secs 24.9-37.0 N IS PATIENT ON ANTICOAGULANTS ? YLIST ANTICOAGULANT/ANTI PLT MEDICATION : OtherHas Lab been notified if Patient is on Heparin Drip? NOIf Yes, order CBC, OCCULT BLOOD, PT every other day NCOMPREHENSIVE METABOLIC [id number] 17:08:00 Test Item Value Reference Range Interpretation [...] RATE (test code = GFR) mL/mi n/1.73 h9Fgunszwhc Range:Healthy Adults >90 mL/min/1.73 m2 For Chronic [...] TOTAL (test code = ALKP) CBC W/AUTO [id number] 16:45:00 Test Item Value Reference Range Interpretation [...] code = NRBC) - XR CHEST 1 [id number] 16:35:00 Patient Name: RUTHY BEST Unit No: [id number] EXAMS: CPT CODE: [id number] XR CHEST 1 V [id number] PROVIDED: One frontal view of the chest [...] MD Technologist: JESSICA CHAND RT(R) Transcribed D/ (2215) tSHEYSLJ [facility] NAME: RUTHY BEST [address] [facility] PHYS: ALESA.01 - Aida Nicholas : 1945 AGE: 73 SEX: F [place] [address] LOC: Y.306 A PHONE #: [phone] EXAM DATE: 05/15/2019 STATUS: DIS IN FAX #: [phone] RAD #: D/C DT 05/16/2019 PAGE 1 Signed Report Patient Name: RUTHY BEST Unit No: [id number] EXAMS: CPT CODE: [id number] XR CHEST 1 V 32294 (Continued) Orig Print D/T: S: 05/16/2019 (8658) [facility] NAME: RUTHY BEST [address] [place] [address] PHYS: ALESA. - Aida Meredith : 1945 AGE:73 SEX: F [place] [address] LOC: Y.306 A PHONE #: [phone] EXAM DATE: 05/15/2019 STATUS: DIS IN FAX #: [phone] RAD #: D/C DT 05/16/2019 PAGE 2 Signed Report- XR SHOULDER 1 V [id number] 14:01:00 Patient Name: RUTHY BEST Unit No: [id number] EXAMS: CPT CODE: [id number] XR SHOULDER 1 V [id number] IMAGES PROVIDED: Single AP view of the left shoulder FINDINGS: Postoperative changes of left re verse total shoulder arthoplasty demonstrated without evidence of immediate complication. No acute fracture. Visualized lung is clear. IMPRESSION: Left reverse total shoulder arthoplasty without immediate complication. at 1401 Reported and signed by: Rick Serrano M.D. CC: Geovany Olivera MD Technologist: MIGUELITO FELIZ(RT.R) Transcribed D/ (4521) [facility] NAME: RUTHY BEST [address] [facility] PHYS: INDERJIT Escobar JarodGeovany Lee : 1945 AGE: 73 SEX: F [place] [address] LOC: Y.306 A PHONE #: [phone] EXAM DATE: 05/15/2019 STATUS: ADM INFAX #: [phone] RAD #: D/C DT PAGE 1 Signed Report Patient Name: RUTHY BEST Unit No: [id number] EXAMS: CPT CODE: [id number] XR SHOULDER 1 [place] [address] (Continued) Orig Print D/T: S: 05/16/2019(8861) [facility] NAME: RUTHY BEST [address] [place] [address] PHYS: Geovany Bee Jesus : 1945 AGE: 73 SEX: F [place] [address] LOC: Y.306 A PHONE #: [phone] EXAM DATE: 05/15/2019 STATUS: ADM IN FAX #: [phone] RAD #: D/C DT PAGE 2 Signed ReportCBC W/AUTO [id number] 05:53:00 Test Item Value Reference Range Interpretation [...] POD #1- CT UP EXTREM W/O CONT [id number] 08:39:00 Patient Name: RUTHY BEST Unit No: [id number] EXAMS: CPT CODE: [id number] [place] UP EXTREM W/[place] [address] [place] OF THE LEFT SHOULDER WITH SAGITTAL [...] with ACR practice standards and adherence to insurance auditor's recommendations. Degenerative changesare present as noted. The rotator cuff is as described. No loose bodies are seen. AC joint degenerative change is present. at 0839 Reported and signed by: Ran Cedeño MD CC: Geovany Olivera MD Technologist: Pankaj barnett,RT(R) CTDI: DLP: Trnscrpt: 04/12/2019 (0839) t.SDR.JCL [facility] NAME: RUTHY BEST [address] [place] [address] PHYS: Geovany Bee : 1945 AGE: 73 SEX: F [place] [address] LOC: RonaldRAD PHONE #: [phone] EXAM DATE: 04/11/2019 STATUS: DEP CLI FAX #: [phone] RAD #: D/C DT PAGE 1 Signed Report Patient Name: RUTHY BEST UnitNo: [id number] EXAMS: CPT CODE: [id number] CT UP EXTREM W/[place] [address] (Continued) Orig Print D/T: S: 04/12/2019 (0842) [facility] NAME: RUTHY BEST [address] [place] [address] PHYS: LIOMARTYRei Geovany Israel : 1945 AGE: 73 SEX: F [place] [address] : Y.RAD PHONE #: [phone] EXAM DATE: 04/11/2019 STATUS: DEP CLI FAX #: [phone] RAD #: D/C DT PAGE 2 Signed ReportCBC W/AUTO DIFF 2019-04-11 [...] % 0-0 N code = NRBC) SED [id number] 18:23:00 Test Item Value Reference Range Interpretation Comments SED RATE (test code = SEDW) 25 mm/hr 0-20 H COMPREHENSIVE METABOLIC [id number] 18:17:00 Test Item Value Reference Range Interpretation [...] RATE (test code = GFR) mL/mi n/1.73 [id number] Range:Healthy Adults >90 mL/min/1.73 m2 For Chronic Kidney Disease: Stage II Mild Decrease i n GFR 60-90 Stage III Moderate Decre ase in GFR 30-59 St age IV Severe [...] N TOTAL (test code = ALKP) PROTHROMBIN [id number] 17:59:00 Test Item Value Reference Range Interpretation [...] Patient is on Heparin Drip? NOTHROMBOPLASTIN TIME [id number] 17:59:00 Test Item Value Reference Range Interpretation [...] % 0-0 N code = NRBC) SED [id number] 17:22:00 Test Item Value Reference Range Interpretation Comments SED RATE (test code = SEDW) mm/hr 0-20 CHEM [id number] 19:15:00 Test Item Value Reference Range Interpretation Comments Calcium Lvl (test code = Calcium Lvl) 9.5 8.5-10.5 [facility]2016-10-05 19:15:00 Test Item Value Reference Range Interpretation Comments eGFR (test code = eGFR) 94 [facility]2016-10-05 19:15:00 Test Item Value Reference Range Interpretation Comments CO2 (test code = CO2) 26 24-32 [facility]2016-10-05 19:15:00 Test Item Value Reference Range Interpretation Comments Creatinine Lvl (test code = Creatinine 0.55 0.50-1.40 Lvl) [facility]2016-10-05 19:15:00 Test Item Value Reference Range Interpretation Comments Chloride Lvl (test code = Chloride Lvl) 99 95-109 [facility]2016-10-05 19:15:00 Test Item Value Reference Range Interpretation Comments AGAP (test code = AGAP) 14.9 10.0-20.0 [facility]2016-10-05 19:15:00 Test Item Value Reference Range Interpretation Comments BUN (test code = BUN) 27 7-22 [facility]2016-10-05 19:15:00 Test Item Value Reference Range Interpretation Comments Potassium Lvl (test code = Potassium 2.9 3.5-5.1 Lvl) [facility]2016-10-05 19:15:00 Test Item Value Reference Range Interpretation Comments Sodium Lvl (test code = Sodium Lvl) 137 135-145 [facility]2016-10-05 19:15:00 Test Item Value Reference Range Interpretation Comments Glucose Lvl (test code = Glucose Lvl) 98 70-99 [facility]2016-10-05 19:15:00 Test Item Value Reference Range Interpretation Comments Calcium Lvl (test code = Calcium Lvl) 9.5 8.5-10.5 [facility]2016-10-05 19:15:00 Test Item Value Reference Range Interpretation Comments eGFR (test code = eGFR) 94 [facility]2016-10-05 19:15:00 Test Item Value Reference Range Interpretation Comments Calcium Lvl (test code = Calcium Lvl) 9.5 8.5-10.5 [facility]2016-10-05 19:15:00 Test Item Value Reference Range Interpretation Comments eGFR (test code = eGFR) 94 [facility]2016-10-05 19:15:00 Test Item Value Reference Range Interpretation Comments CO2 (test code = CO2) [facility]2016-10-05 19:15:00 Test Item Value Reference Range Interpretation Comments Creatinine Lvl (test code = Creatinine 0.55 0.50-1.40 Lvl) [facility]2016-10-05 19:15:00 Test Item Value Reference Range Interpretation Comments Chloride Lvl (test code = Chloride Lvl) 99 95-109 [facility]2016-10-05 19:15:00 Test Item Value Reference Range Interpretation Comments AGAP (test code = AGAP) 14.9 10.0-20.0 [facility]2016-10-05 19:15:00 Test Item Value Reference Range Interpretation Comments BUN (test code = BUN) 27 7-22 [facility]2016-10-05 19:15:00 Test Item Value Reference Range Interpretation Comments Potassium Lvl (test code = Potassium 2.9 3.5-5.1 Lvl) [facility]2016-10-05 19:15:00 Test Item Value Reference Range Interpretation Comments Sodium Lvl (test code = Sodium Lvl) 137 135-145 [facility]2016-10-05 19:15:00 Test Item Value Reference Range Interpretation Comments Glucose Lvl (test code = Glucose Lvl) 98 70-99 [facility]2016-10-05 19:15:00 Test Item Value Reference Range Interpretation Comments CO2 (test code = CO2) - [facility]2016-10-05 19:15:00 Test Item Value Reference Range Interpretation Comments Creatinine Lvl (test code = Creatinine 0.55 0.50-1.40 Lvl) [facility]2016-10-05 19:15:00 Test Item Value Reference Range Interpretation Comments Chloride Lvl (test code = Chloride Lvl) 99 95-109 [facility]2016-10-05 19:15:00 Test Item Value Reference Range Interpretation Comments AGAP (test code = AGAP) 14.9 10.0-20.0 [facility]2016-10-05 19:15:00 Test Item Value Reference Range Interpretation Comments BUN (test code = BUN) 26 01- [facility]2016-10-05 19:15:00 Test Item Value Reference Range Interpretation Comments Potassium Lvl (test code = Potassium 2.9 3.5-5.1 Lvl) [facility]2016-10-05 19:15:00 Test Item Value Reference Range Interpretation Comments Sodium Lvl (test code = Sodium Lvl) 137 135-145 [facility]2016-10-05 19:15:00 Test Item Value Reference Range Interpretation Comments Glucose Lvl (test code = Glucose Lvl) 98 70-99 [facility]2016-10-05 19:15:00 Test Item Value Reference Range Interpretation Comments Calcium Lvl (test code = Calcium Lvl) 9.5 8.5-10.5 [facility]2016-10-05 19:15:00 Test Item Value Reference Range Interpretation Comments eGFR (test code = eGFR) 94 [facility]2016-10-05 19:15:00 Test Item Value Reference Range Interpretation Comments CO2 (test code = CO2) 26 24-32 [facility]2016-10-05 19:15:00 Test Item Value Reference Range Interpretation Comments Creatinine Lvl (test code = Creatinine 0.55 0.50-1.40 Lvl) [facility]2016-10-05 19:15:00 Test Item Value Reference Range Interpretation Comments Chloride Lvl (test code = Chloride Lvl) 99 95-109 [facility]2016-10-05 19:15:00 Test Item Value Reference Range Interpretation Comments AGAP (test code = AGAP) 14.9 10.0-20.0 [facility]2016-10-05 19:15:00 Test Item Value Reference Range Interpretation Comments BUN (test code = BUN) 27 7-22 [facility]2016-10-05 19:15:00 Test Item Value Reference Range Interpretation Comments Potassium Lvl (test code = Potassium 2.9 3.5-5.1 Lvl) [facility]2016-10-05 19:15:00 Test Item Value Reference Range Interpretation Comments Sodium Lvl (test code = Sodium Lvl) 137 135-145 [facility]2016-10-05 19:15:00 Test Item Value Reference Range Interpretation Comments Glucose Lvl (test code = Glucose Lvl) 98 70-99 [facility]2016-10-05 19:15:00 Test Item Value Reference Range Interpretation Comments Calcium Lvl (test code = Calcium Lvl) 9.5 8.5-10.5 [facility]2016-10-05 19:15:00 Test Item Value Reference Range Interpretation Comments eGFR (test code = eGFR) 94 [facility]2016-10-05 19:15:00 Test Item Value Reference Range Interpretation Comments CO2 (test code = CO2) 26 24-32 [facility]2016-10-05 19:15:00 Test Item Value Reference Range Interpretation Comments Creatinine Lvl (test code = Creatinine 0.55 0.50-1.40 Lvl) [facility]2016-10-05 19:15:00 Test Item Value Reference Range Interpretation Comments Chloride Lvl (test code = Chloride Lvl) 99 95-109 [facility]2016-10-05 19:15:00 Test Item Value Reference Range Interpretation Comments AGAP (test code = AGAP) 14.9 10.0-20.0 [facility]2016-10-05 19:15:00 Test Item Value Reference Range Interpretation Comments BUN (test code = BUN) 27 7-22 [facility]2016-10-05 19:15:00 Test Item Value Reference Range Interpretation Comments Potassium Lvl (test code = Potassium 2.9 3.5-5.1 Lvl) [facility]2016-10-05 19:15:00 Test Item Value Reference Range Interpretation Comments Sodium Lvl (test code = Sodium Lvl) 137 135-145 [facility]2016-10-05 19:15:00 Test Item Value Reference Range Interpretation Comments Glucose Lvl (test code = Glucose Lvl) 98 70-99 [facility]2016-10-05 19:15:00 Test Item Value Reference Range Interpretation Comments Calcium Lvl (test code = Calcium Lvl) 9.5 8.5-10.5 [facility]2016-10-05 19:15:00 Test Item Value Reference Range Interpretation Comments eGFR (test code = eGFR) 94 [facility]2016-10-05 19:15:00 Test Item Value Reference Range Interpretation Comments CO2 (test code = CO2) 26 24-32 [facility]2016-10-05 19:15:00 Test Item Value Reference Range Interpretation Comments Creatinine Lvl (test code = Creatinine 0.55 0.50-1.40 Lvl) [facility]2016-10-05 19:15:00 Test Item Value Reference Range Interpretation Comments Chloride Lvl (test code = Chloride Lvl) 99 95-109 [facility]2016-10-05 19:15:00 Test Item Value Reference Range Interpretation Comments AGAP (test code = AGAP) 14.9 10.0-20.0 [facility]2016-10-05 19:15:00 Test Item Value Reference Range Interpretation Comments BUN (test code = BUN) 27 7-22 [facility]2016-10-05 19:15:00 Test Item Value Reference Range Interpretation Comments Potassium Lvl (test code = Potassium 2.9 3.5-5.1 Lvl) [facility]2016-10-05 19:15:00 Test Item Value Reference Range Interpretation Comments Sodium Lvl (test code = Sodium Lvl) 137 135-145 [facility]2016-10-05 19:15:00 Test Item Value Reference Range Interpretation Comments Glucose Lvl (test code = Glucose Lvl) 98 70-99 [facility]genajeRONJJTUFJFMS0642-29-33 08:58:00 Test Item Value Reference Range Interpretation Comments eGFR (test code = eGFR) 93 [facility]iacWjrqasgCISTUBZJGZYS3708-72-94 08:58:00 Test Item Value Reference Range Interpretation Comments Calcium Lvl (test code = Calcium Lvl) 9.5 8.5-10.5 [facility]iacDciqfymWKPUKYHVWJZW6079-10-68 08:58:00 Test Item Value Reference Range Interpretation Comments AGAP (test code = AGAP) 14.5 10.0-20.0 [facility]LpofeptTQPILUYPZSDQ0042-87-14 08:58:00 Test Item Value Reference Range Interpretation Comments Glucose Lvl (test code = Glucose Lvl) 93 70-99 [facility]iacGittgbgNUVSJVXUKPXG1695-81-09 08:58:00 Test Item Value Reference Range Interpretation Comments BUN (test code = BUN) 24 7-22 [facility]iacGoiougdUQLBMNWREHLN7783-79-84 08:58:00 Test Item Value Reference Range Interpretation Comments Creatinine Lvl (test code = Creatinine 0.57 0.50-1.40 Lvl) [facility] FallsDjdnctjCWIXHOTWUH5396-54-83 08:58:00 Test Item Value Reference Range Interpretation Comments PT (test code = PT) 15.9 s 12.0-14.7 [facility] FallsGsuckmgNHPWXJFXOS8439-95-25 08:58:00 Test Item Value Reference Range Interpretation Comments INR (test code = INR) 1.24 0.85-1.17 [facility] FallsNkdnhdgJVTTKTHBBD2985-34-07 08:58:00 Test Item Value Reference Range Interpretation Comments PTT (test code = PTT) 35.2 s 22.9-35.8 [facility] FallsXrlacyeEKKKBIRLNN9054-16-23 08:58:00 Test Item Value Reference Range Interpretation Comments RBC (test code = RBC) 3.67 4.20-5.40 [facility] FallsMmoyzytXQSIJUJYEF4708-41-57 08:58:00 Test Item Value Reference Range Interpretation Comments Hgb (test code = Hgb) 10.6 12.0-16.0 [facility] FallsTrlosfiGPZYMWXZGN4768-19-23 08:58:00 Test Item Value Reference Range Interpretation Comments WBC (test code = WBC) 8.8 3.7-10.4 [facility] FallsXigfkfbOSHDBGDVEU4713-87-58 08:58:00 Test Item Value Reference Range Interpretation Comments Platelet (test code = Platelet) 490 133-450 [facility] FallsClhdktnODCOSZMHHW3057-18-50 08:58:00 Test Item Value Reference Range Interpretation Comments MPV (test code = MPV) 7.5 7.4-10.4 [facility] FallsSonubxyMPWPFDXVMN1493-68-35 08:58:00 Test Item Value Reference Range Interpretation Comments MCHC (test code = MCHC) 34.7 32.0-36.0 [facility] FallsVbqlabsGUEIJGMPXC3328-81-44 08:58:00 Test Item Value Reference Range Interpretation Comments RDW (test code = RDW) 13.8 11.5-14.5 [facility] FallsXkrfgtvWLOWEHZSFJ7302-66-16 08:58:00 Test Item Value Reference Range Interpretation Comments MCV (test code = MCV) 82.8 80.0-98.0 [facility] FallsClasygsMASFDWMYZB9257-40-88 08:58:00 Test Item Value Reference Range Interpretation Comments MCH (test code = MCH) 28.8 pg 27.0-31.0 [facility] FallsFaulctdFSIDBVUJYW2123-27-85 08:58:00 Test Item Value Reference Range Interpretation Comments Hct (test code = Hct) 30.4 36.0-48.0 [facility] FallsRrgrqqlUPRHXFIJSY4764-58-01 08:58:00 Test Item Value Reference Range Interpretation Comments Eosinophils # (test code 0.2 See_Comment [A utomated message] The = Eosinophils #) system whic h generated this result tra nsmitted reference range : <=0.5. The reference r malinda was not used to int erpret this result as normal/abnormal . [facility] FallsNshmpwkSXYOPACTLC2095-64-12 08:58:00 Test Item Value Reference Range Interpretation Comments Segs-Bands # (test code = Segs-Bands #) 5.4 1.5-8.1 [facility] FallsHatezjdTFHDPXXRKS3771-75-26 08:58:00 Test Item Value Reference Range Interpretation Comments Monocytes # (test code 1.1 See_Comment [Aut omated message] The = Monocytes #) system which generated this result tra nsmitted reference range : <=0.8. The reference r malinda was not used to int erpret this result as normal/abnormal . [facility] FallsJqiumszNQZBWRNGCA2921-28-47 08:58:00 Test Item Value Reference Range Interpretation Comments Lymphocytes # (test code = Lymphocytes 2.1 1.0-5.5 #) [facility] FallsIwymnqkWYVVNSIWYN8810-63-30 08:58:00 Test Item Value Reference Range Interpretation Comments Eosinophils (test code = 2.1 See_Comment [A utomated message] The Eosinophils) system which ge nerated this result tra nsmitted reference range : <=4.0. The reference r malinda was not used to int erpret this result as normal/abnormal . [facility] FallsMnhpvolPVWPNMPAIF6606-74-48 08:58:00 Test Item Value Reference Range Interpretation Comments Basophils (test code = 0.6 See_Comment [Aut omated message] The Basophils) system which ge nerated this result tra nsmitted reference range : <=1.0. The reference r malinda was not used to int erpret this result as normal/abnormal . [facility] FallsIubnugiHMPGDTKFUD2998-95-65 08:58:00 Test Item Value Reference Range Interpretation Comments Lymphocytes (test code = Lymphocytes) 23.7 20.0-40.0 [facility] FallsJnayshsSGFWYGPQGI3230-86-65 08:58:00 Test Item Value Reference Range Interpretation Comments Monocytes (test code = Monocytes) 12.4 2.0-12.0 [facility] FallsEikqvnhJMDONCUWUL2219-63-08 08:58:00 Test Item Value Reference Range Interpretation Comments Segs (test code = Segs) 61.2 45.0-75.0 [facility]VuiqnluJROFSLDNYLAW5937-78-59 08:58:00 Test Item Value Reference Range Interpretation Comments Chloride Lvl (test code = Chloride Lvl) 99 95-109 [facility]iacLqctutwOFVZGXBJDWKS2710-60-77 08:58:00 Test Item Value Reference Range Interpretation Comments Potassium Lvl (test code = Potassium 2.5 3.5-5.1 Lvl) [facility]iacZhrfuogXVQJJMALDRIP5012-40-53 08:58:00 Test Item Value Reference Range Interpretation Comments Sodium Lvl (test code = Sodium Lvl) 136 135-145 [facility]iacGzguqbxENXEGJOWAJJS0379-77-34 08:58:00 Test Item Value Reference Range Interpretation Comments CO2 (test code = CO2) 25 24-32 [facility]XytlkqeMKPXTESVCCLY3560-04-57 08:58:00 Test Item Value Reference Range Interpretation Comments eGFR (test code = eGFR) 93 [facility]iacSycbxwbGQYJJUMLPNDH4253-80-00 08:58:00 Test Item Value Reference Range Interpretation Comments Calcium Lvl (test code = Calcium Lvl) 9.5 8.5-10.5 [facility]iacBwjfeatVQSAQBAIWESB9521-66-58 08:58:00 Test Item Value Reference Range Interpretation Comments AGAP (test code = AGAP) 14.5 10.0-20.0 [facility]iacCybesvbOBTETKEYGPCN2636-36-71 08:58:00 Test Item Value Reference Range Interpretation Comments Glucose Lvl (test code = Glucose Lvl) 93 70-99 [facility]iacDzoeoduZAUPXIEIWTJX7288-62-70 08:58:00 Test Item Value Reference Range Interpretation Comments BUN (test code = BUN) 24 7-22 [facility]iacAotokdoNSSVFODVMVML5458-10-93 08:58:00 Test Item Value Reference Range Interpretation Comments Creatinine Lvl (test code = Creatinine 0.57 0.50-1.40 Lvl) [facility] FallsKnzzjtcATZMPKIPGZ3037-25-99 08:58:00 Test Item Value Reference Range Interpretation Comments PT (test code = PT) 15.9 s 12.0-14.7 [facility] FallsLuhakknGTPGPTXKAH0725-40-52 08:58:00 Test Item Value Reference Range Interpretation Comments INR (test code = INR) 1.24 0.85-1.17 [facility] FallsYpjugsrZACBYFWIEY5152-98-68 08:58:00 Test Item Value Reference Range Interpretation Comments PTT (test code = PTT) 35.2 s 22.9-35.8 [facility] FallsEefhodrGUDJHOWROD3884-22-98 08:58:00 Test Item Value Reference Range Interpretation Comments RBC (test code = RBC) 3.67 4.20-5.40 [facility] FallsYkgjmraXPAMRSYNOR1413-75-37 08:58:00 Test Item Value Reference Range Interpretation Comments Hgb (test code = Hgb) 10.6 12.0-16.0 [facility] FallsLndlgvcNHSPYYXTZN0788-54-58 08:58:00 Test Item Value Reference Range Interpretation Comments WBC (test code = WBC) 8.8 3.7-10.4 [facility] FallsFfulyjvILNPYAKVSW6382-42-25 08:58:00 Test Item Value Reference Range Interpretation Comments Platelet (test code = Platelet) 490 133-450 [facility] FallsXbkwdkoMWUBNKSCXX1096-84-65 08:58:00 Test Item Value Reference Range Interpretation Comments MPV (test code = MPV) 7.5 7.4-10.4 [facility] FallsFgyomiqIHGPYIVQGD6874-05-98 08:58:00 Test Item Value Reference Range Interpretation Comments MCHC (test code = MCHC) 34.7 32.0-36.0 [facility] FallsVfqgtdoFNKPBYMPOW0857-16-78 08:58:00 Test Item Value Reference Range Interpretation Comments RDW (test code = RDW) 13.8 11.5-14.5 [facility] FallsUalxnqdTXBSPKCYVY9001-23-69 08:58:00 Test Item Value Reference Range Interpretation Comments MCV (test code = MCV) 82.8 80.0-98.0 [facility] FallsUbasgggCRWHXHZBOA6587-43-13 08:58:00 Test Item Value Reference Range Interpretation Comments MCH (test code = MCH) 28.8 pg 27.0-31.0 [facility] FallsVjmdjjuQGLYOQLUAV7142-55-76 08:58:00 Test Item Value Reference Range Interpretation Comments Hct (test code = Hct) 30.4 36.0-48.0 [facility] FallsFtyktebPQECMMQJGK5501-13-29 08:58:00 Test Item Value Reference Range Interpretation Comments Eosinophils # (test code 0.2 See_Comment [A utomated message] The = Eosinophils #) system whic h generated this result tra nsmitted reference range : <=0.5. The reference r malinda was not used to int erpret this result as normal/abnormal . [facility] FallsXxobmfvLMDJMSCLCQ9410-39-25 08:58:00 Test Item Value Reference Range Interpretation Comments Segs-Bands # (test code = Segs-Bands #) 5.4 1.5-8.1 [facility] FallsApdxnfdYNELITNTAO5271-41-36 08:58:00 Test Item Value Reference Range Interpretation Comments Monocytes # (test code 1.1 See_Comment [Aut omated message] The = Monocytes #) system which generated this result tra nsmitted reference range : <=0.8. The reference r malinda was not used to int erpret this result as normal/abnormal . [facility] FallsFuuqsocILGJDJSVUF4606-26-54 08:58:00 Test Item Value Reference Range Interpretation Comments Lymphocytes # (test code = Lymphocytes 2.1 1.0-5.5 #) [facility] FallsFplpoblFUJVNSOTSZ5437-51-71 08:58:00 Test Item Value Reference Range Interpretation Comments Eosinophils (test code = 2.1 See_Comment [A utomated message] The Eosinophils) system which ge nerated this result tra nsmitted reference range : <=4.0. The reference r malinda was not used to int erpret this result as normal/abnormal . [facility] FallsFdggwlxYZVZXLQBVK6276-45-34 08:58:00 Test Item Value Reference Range Interpretation Comments Basophils (test code = 0.6 See_Comment [Aut omated message] The Basophils) system which ge nerated this result tra nsmitted reference range : <=1.0. The reference r malinda was not used to int erpret this result as normal/abnormal . [facility] FallsPgrxrqeMAASJILAQV0719-58-49 08:58:00 Test Item Value Reference Range Interpretation Comments Lymphocytes (test code = Lymphocytes) 23.7 20.0-40.0 [facility] FallsDhgsiszMINKCMRWER2722-98-25 08:58:00 Test Item Value Reference Range Interpretation Comments Monocytes (test code = Monocytes) 12.4 2.0-12.0 [facility] FallsWqmbkaeYBLGQFJTMF8813-07-37 08:58:00 Test Item Value Reference Range Interpretation Comments Segs (test code = Segs) 61.2 45.0-75.0 [facility]GbcixdhNFDLYGESXHWT3493-78-97 08:58:00 Test Item Value Reference Range Interpretation Comments Chloride Lvl (test code = Chloride Lvl) 99 95-109 [facility]VnckzrxJKMMDZHBBHIO0800-68-77 08:58:00 Test Item Value Reference Range Interpretation Comments Potassium Lvl (test code = Potassium 2.5 3.5-5.1 Lvl) [facility]XyvyuxdDZOYNJABGBXF7866-68-83 08:58:00 Test Item Value Reference Range Interpretation Comments Sodium Lvl (test code = Sodium Lvl) 136 135-145 [facility]iacElcxcmtIYSAARMFWNTF4209-06-65 08:58:00 Test Item Value Reference Range Interpretation Comments CO2 (test code = CO2) 25 24-32 [facility]OferdsbDYFVIKIZKETP5596-59-41 08:58:00 Test Item Value Reference Range Interpretation Comments eGFR (test code = eGFR) 93 [facility]HrjwfarDOVHDBTLIGDA9409-67-65 08:58:00 Test Item Value Reference Range Interpretation Comments Calcium Lvl (test code = Calcium Lvl) 9.5 8.5-10.5 [facility]NyddiqaEWUMEBTAIIQB0519-69-94 08:58:00 Test Item Value Reference Range Interpretation Comments AGAP (test code = AGAP) 14.5 10.0-20.0 [facility]iacSwtiicrQNSLNHTUJJZZ8557-33-45 08:58:00 Test Item Value Reference Range Interpretation Comments Glucose Lvl (test code = Glucose Lvl) 93 70-99 [facility]MryevycABHDQBYQTRUW6325-27-70 08:58:00 Test Item Value Reference Range Interpretation Comments BUN (test code = BUN) 24 7-22 [facility]FuzrmqnEZTUDDLZSBHI8572-02-83 08:58:00 Test Item Value Reference Range Interpretation Comments Creatinine Lvl (test code = Creatinine 0.57 0.50-1.40 Lvl) [facility] SurgeryHbfkfrmENXZUHZXXB9609-19-86 08:58:00 Test Item Value Reference Range Interpretation Comments PT (test code = PT) 15.9 s 12.0-14.7 [facility] FallsOrozauhSTZREFYMEW2988-06-09 08:58:00 Test Item Value Reference Range Interpretation Comments INR (test code = INR) 1.24 0.85-1.17 [facility] FallsTqcrgrgLUBACPHROT5741-03-82 08:58:00 Test Item Value Reference Range Interpretation Comments PTT (test code = PTT) 35.2 s 22.9-35.8 [facility] FallsLaeitbmCGOAFWMOPJ1919-97-70 08:58:00 Test Item Value Reference Range Interpretation Comments RBC (test code = RBC) 3.67 4.20-5.40 [facility] FallsNhgmhkaQCUFZWWUXT1673-36-11 08:58:00 Test Item Value Reference Range Interpretation Comments Hgb (test code = Hgb) 10.6 12.0-16.0 [facility] FallsGyvijogNNVAMJTUYG0136-05-60 08:58:00 Test Item Value Reference Range Interpretation Comments WBC (test code = WBC) 8.8 3.7-10.4 [facility] FallsQgzxaytRLPVYYHMDX0072-39-08 08:58:00 Test Item Value Reference Range Interpretation Comments Platelet (test code = Platelet) 490 133-450 [facility] FallsVrxdoxiSORCJPCMBE6586-83-38 08:58:00 Test Item Value Reference Range Interpretation Comments MPV (test code = MPV) 7.5 7.4-10.4 [facility] FallsSjpgwcdCTVJCIDKCC0186-65-32 08:58:00 Test Item Value Reference Range Interpretation Comments MCHC (test code = MCHC) 34.7 32.0-36.0 [facility] FallsTlpkncmLZMOGKQRKL3825-79-78 08:58:00 Test Item Value Reference Range Interpretation Comments RDW (test code = RDW) 13.8 11.5-14.5 [facility] FallsQwxakdbJFNEQETJTT1364-67-83 08:58:00 Test Item Value Reference Range Interpretation Comments MCV (test code = MCV) 82.8 80.0-98.0 [facility] FallsGffukexMALWIYGWTC7883-08-83 08:58:00 Test Item Value Reference Range Interpretation Comments MCH (test code = MCH) 28.8 pg 27.0-31.0 [facility] FallsLkrspdyWWQORPUTXX7715-22-10 08:58:00 Test Item Value Reference Range Interpretation Comments Hct (test code = Hct) 30.4 36.0-48.0 [facility] FallsAcaztnoDCBIHGBGKX1669-40-23 08:58:00 Test Item Value Reference Range Interpretation Comments Eosinophils # (test code 0.2 See_Comment [A utomated message] The = Eosinophils #) system whic h generated this result tra nsmitted reference range : <=0.5. The reference r malinda was not used to int erpret this result as normal/abnormal . [facility] FallsDpotczwGWNDMIVJCH9246-72-09 08:58:00 Test Item Value Reference Range Interpretation Comments Segs-Bands # (test code = Segs-Bands #) 5.4 1.5-8.1 [facility] FallsGmhpfeaIFJVGBWDRY8908-21-72 08:58:00 Test Item Value Reference Range Interpretation Comments Monocytes # (test code 1.1 See_Comment [Aut omated message] The = Monocytes #) system which generated this result tra nsmitted reference range : <=0.8. The reference r malinda was not used to int erpret this result as normal/abnormal . [facility] FallsDvozvjyIISEOPQELW5149-83-99 08:58:00 Test Item Value Reference Range Interpretation Comments Lymphocytes # (test code = Lymphocytes 2.1 1.0-5.5 #) [facility] FallsOfipqzoDTDZIZTJLG3415-71-63 08:58:00 Test Item Value Reference Range Interpretation Comments Eosinophils (test code = 2.1 See_Comment [A utomated message] The Eosinophils) system which ge nerated this result tra nsmitted reference range : <=4.0. The reference r malinda was not used to int erpret this result as normal/abnormal . [facility] FallsQxjpvrsQZRUMLQKRD7788-66-54 08:58:00 Test Item Value Reference Range Interpretation Comments Basophils (test code = 0.6 See_Comment [Aut omated message] The Basophils) system which ge nerated this result tra nsmitted reference range : <=1.0. The reference r malinda was not used to int erpret this result as normal/abnormal . [facility] FallsSyxhjcsVUTROGRBTU0116-57-12 08:58:00 Test Item Value Reference Range Interpretation Comments Lymphocytes (test code = Lymphocytes) 23.7 20.0-40.0 [facility] FallsNbexefbRGDLDMLBDY4145-32-76 08:58:00 Test Item Value Reference Range Interpretation Comments Monocytes (test code = Monocytes) 12.4 2.0-12.0 [facility] FallsNgzxuczWWGWVTDGVQ9109-16-35 08:58:00 Test Item Value Reference Range Interpretation Comments Segs (test code = Segs) 61.2 45.0-75.0 [facility]DucifpdKRMNNMOALXBU1550-27-94 08:58:00 Test Item Value Reference Range Interpretation Comments Chloride Lvl (test code = Chloride Lvl) 99 95-109 [facility]iacDsbleonEFRBAJCWBXID5407-13-02 08:58:00 Test Item Value Reference Range Interpretation Comments Potassium Lvl (test code = Potassium 2.5 3.5-5.1 Lvl) [facility]iacBgggjzzQUPSNYGOURTI5678-09-54 08:58:00 Test Item Value Reference Range Interpretation Comments Sodium Lvl (test code = Sodium Lvl) 136 135-145 [facility]XqflfbrCKQQRTQFXZDK4186-31-62 08:58:00 Test Item Value Reference Range Interpretation Comments CO2 (test code = CO2) 25 24-32 [facility]iacLkerxtyBTOPSPEOQDUM6790-71-45 08:58:00 Test Item Value Reference Range Interpretation Comments eGFR (test code = eGFR) 93 [facility]iacMuegenhFZYKZBYWCBOV8263-44-29 08:58:00 Test Item Value Reference Range Interpretation Comments Calcium Lvl (test code = Calcium Lvl) 9.5 8.5-10.5 [facility]iacJkzjsplWKQBXJHCEGQS0206-11-14 08:58:00 Test Item Value Reference Range Interpretation Comments AGAP (test code = AGAP) 14.5 10.0-20.0 [facility]XtshdbdUJOAKPVPQBEQ1166-32-26 08:58:00 Test Item Value Reference Range Interpretation Comments Glucose Lvl (test code = Glucose Lvl) 93 70-99 [facility]iacLhcwwuzVCHEIPDBTLEY1556-12-19 08:58:00 Test Item Value Reference Range Interpretation Comments BUN (test code = BUN) 24 7-22 [facility]iacZwqskhySQUMNIQXJMOR1185-23-12 08:58:00 Test Item Value Reference Range Interpretation Comments Creatinine Lvl (test code = Creatinine 0.57 0.50-1.40 Lvl) [facility] FallsQsqhlxpBNAWYQANDR4589-70-15 08:58:00 Test Item Value Reference Range Interpretation Comments PT (test code = PT) 15.9 s 12.0-14.7 [facility] FallsVmpkapzICMZBYHQMU9884-89-26 08:58:00 Test Item Value Reference Range Interpretation Comments INR (test code = INR) 1.24 0.85-1.17 [facility] FallsJvmkxpyTMHPJZHNPD9055-50-72 08:58:00 Test Item Value Reference Range Interpretation Comments PTT (test code = PTT) 35.2 s 22.9-35.8 [facility] FallsLanbwlbLCGCSYITTB3561-12-72 08:58:00 Test Item Value Reference Range Interpretation Comments RBC (test code = RBC) 3.67 4.20-5.40 [facility] FallsSlxlgznFCTRXSVWMJ0278-99-27 08:58:00 Test Item Value Reference Range Interpretation Comments Hgb (test code = Hgb) 10.6 12.0-16.0 [facility] FallsPyqrbxfNHSFDJYVFV1728-64-09 08:58:00 Test Item Value Reference Range Interpretation Comments WBC (test code = WBC) 8.8 3.7-10.4 [facility] FallsHrqyvwmPSFBJVVKEK8427-71-08 08:58:00 Test Item Value Reference Range Interpretation Comments Platelet (test code = Platelet) 490 133-450 [facility] FallsWmosvrzQNHVBIWTVM0271-67-21 08:58:00 Test Item Value Reference Range Interpretation Comments MPV (test code = MPV) 7.5 7.4-10.4 [facility] FallsDdgykyrCVSGECCGHD2479-16-61 08:58:00 Test Item Value Reference Range Interpretation Comments MCHC (test code = MCHC) 34.7 32.0-36.0 [facility] FallsZysdqzwCAXYXDOALS9809-24-79 08:58:00 Test Item Value Reference Range Interpretation Comments RDW (test code = RDW) 13.8 11.5-14.5 [facility] FallsRnmjvgmEEXLZAXJCO0948-07-80 08:58:00 Test Item Value Reference Range Interpretation Comments MCV (test code = MCV) 82.8 80.0-98.0 [facility] FallsVgmhjsiYJOHUBHWUN4206-36-38 08:58:00 Test Item Value Reference Range Interpretation Comments MCH (test code = MCH) 28.8 pg 27.0-31.0 [facility] FallsLxuunalVONCNKBBIY5652-03-50 08:58:00 Test Item Value Reference Range Interpretation Comments Hct (test code = Hct) 30.4 36.0-48.0 [facility] FallsDanmngqOKIAUSJLUI1895-73-66 08:58:00 Test Item Value Reference Range Interpretation Comments Eosinophils # (test code 0.2 See_Comment [A utomated message] The = Eosinophils #) system whic h generated this result tra nsmitted reference range : <=0.5. The reference r malinda was not used to int erpret this result as normal/abnormal . [facility] FallsUbtofpeZFJUWVHLMP9875-24-04 08:58:00 Test Item Value Reference Range Interpretation Comments Segs-Bands # (test code = Segs-Bands #) 5.4 1.5-8.1 [facility] FallsDfhrxcmYEJHRIUUNS5857-92-65 08:58:00 Test Item Value Reference Range Interpretation Comments Monocytes # (test code 1.1 See_Comment [Aut omated message] The = Monocytes #) system which generated this result tra nsmitted reference range : <=0.8. The reference r malinda was not used to int erpret this result as normal/abnormal . [facility] FallsXtnlizqFRZLBFYRGW6631-36-61 08:58:00 Test Item Value Reference Range Interpretation Comments Lymphocytes # (test code = Lymphocytes 2.1 1.0-5.5 #) [facility] FallsQhgjcgwNITBWMSCXJ8158-06-44 08:58:00 Test Item Value Reference Range Interpretation Comments Eosinophils (test code = 2.1 See_Comment [A utomated message] The Eosinophils) system which ge nerated this result tra nsmitted reference range : <=4.0. The reference r malinda was not used to int erpret this result as normal/abnormal . [facility] FallsVfdnkbmPYWMAIFMNK5118-77-85 08:58:00 Test Item Value Reference Range Interpretation Comments Basophils (test code = 0.6 See_Comment [Aut omated message] The Basophils) system which ge nerated this result tra nsmitted reference range : <=1.0. The reference r malinda was not used to int erpret this result as normal/abnormal . [facility] FallsAniodukSDQNTOEDXB4370-14-92 08:58:00 Test Item Value Reference Range Interpretation Comments Lymphocytes (test code = Lymphocytes) 23.7 20.0-40.0 [facility] FallsXleoianFBDGFOTRAX0551-18-65 08:58:00 Test Item Value Reference Range Interpretation Comments Monocytes (test code = Monocytes) 12.4 2.0-12.0 [facility] FallsIcnqnjuPTEOTVURKA1249-81-22 08:58:00 Test Item Value Reference Range Interpretation Comments Segs (test code = Segs) 61.2 45.0-75.0 [facility]FapycdeGNMDCDAIRXTZ5241-81-50 08:58:00 Test Item Value Reference Range Interpretation Comments Chloride Lvl (test code = Chloride Lvl) 99 95-109 [facility]IawtxtqMPVGYTCGKEZL1063-10-57 08:58:00 Test Item Value Reference Range Interpretation Comments Potassium Lvl (test code = Potassium 2.5 3.5-5.1 Lvl) [facility]TqosvevBYHKTIVHDQBR2596-70-32 08:58:00 Test Item Value Reference Range Interpretation Comments Sodium Lvl (test code = Sodium Lvl) 136 135-145 [facility]iacDzpzcfoRNZXRKCSIKVK6731-01-43 08:58:00 Test Item Value Reference Range Interpretation Comments CO2 (test code = CO2) 25 24-32 [facility]RqbgtpnYXXNFODWCJVK7619-08-20 08:58:00 Test Item Value Reference Range Interpretation Comments eGFR (test code = eGFR) 93 [facility]iacLooxpbvMUBEVGZMIOVU8724-41-01 08:58:00 Test Item Value Reference Range Interpretation Comments Calcium Lvl (test code = Calcium Lvl) 9.5 8.5-10.5 [facility]SieufzjRMGSSSIDYUWI7928-91-68 08:58:00 Test Item Value Reference Range Interpretation Comments AGAP (test code = AGAP) 14.5 10.0-20.0 [facility]UdykurkRKXGBDGTOYAF7280-47-91 08:58:00 Test Item Value Reference Range Interpretation Comments Glucose Lvl (test code = Glucose Lvl) 93 70-99 [facility]TrrjswlODIXTISDIXZP3226-94-10 08:58:00 Test Item Value Reference Range Interpretation Comments BUN (test code = BUN) 24 7-22 [facility]XvoxxjtQRDZBJVVLBJG6564-48-03 08:58:00 Test Item Value Reference Range Interpretation Comments Creatinine Lvl (test code = Creatinine 0.57 0.50-1.40 Lvl) [facility] FallsKomhveaHPXGPEDKJC2222-15-12 08:58:00 Test Item Value Reference Range Interpretation Comments PT (test code = PT) 15.9 s 12.0-14.7 [facility] FallsMnqbyokTISLNZRAXU2314-79-23 08:58:00 Test Item Value Reference Range Interpretation Comments INR (test code = INR) 1.24 0.85-1.17 [facility] FallsQnmhfgySXYPTYFXRX5050-24-38 08:58:00 Test Item Value Reference Range Interpretation Comments PTT (test code = PTT) 35.2 s 22.9-35.8 [facility] FallsGmasvasYXGVCZHYDX1530-47-13 08:58:00 Test Item Value Reference Range Interpretation Comments RBC (test code = RBC) 3.67 4.20-5.40 [facility] FallsEffghayATSZBIJDBJ5813-70-76 08:58:00 Test Item Value Reference Range Interpretation Comments Hgb (test code = Hgb) 10.6 12.0-16.0 [facility] FallsBcbahbfGUZGTRQMFI8355-72-79 08:58:00 Test Item Value Reference Range Interpretation Comments WBC (test code = WBC) 8.8 3.7-10.4 [facility] FallsDesuuucCYQUMPHFFL2021-65-69 08:58:00 Test Item Value Reference Range Interpretation Comments Platelet (test code = Platelet) 490 133-450 [facility] FallsTojawtmYDVNIELMUQ5116-50-63 08:58:00 Test Item Value Reference Range Interpretation Comments MPV (test code = MPV) 7.5 7.4-10.4 [facility] FallsUqfrazjXJVHKLRPSZ2634-84-73 08:58:00 Test Item Value Reference Range Interpretation Comments MCHC (test code = MCHC) 34.7 32.0-36.0 [facility] FallsIgaquicGXZOSWWDQD6290-84-70 08:58:00 Test Item Value Reference Range Interpretation Comments RDW (test code = RDW) 13.8 11.5-14.5 [facility] FallsKlscgerDOQAEFCQWJ4434-31-72 08:58:00 Test Item Value Reference Range Interpretation Comments MCV (test code = MCV) 82.8 80.0-98.0 [facility] FallsHqwtfwoIUWGVJYBWT0145-01-82 08:58:00 Test Item Value Reference Range Interpretation Comments MCH (test code = MCH) 28.8 pg 27.0-31.0 [facility] FallsZfkgnzgIKEJFSNKLT1345-40-58 08:58:00 Test Item Value Reference Range Interpretation Comments Hct (test code = Hct) 30.4 36.0-48.0 [facility] FallsLepeqegYAAMXZGFLU2086-42-53 08:58:00 Test Item Value Reference Range Interpretation Comments Eosinophils # (test code 0.2 See_Comment [A utomated message] The = Eosinophils #) system [facility] h generated this result tra nsmitted reference range : <=0.5. The reference r malinda was not used to int erpret this result as normal/abnormal . [facility] FallsYzzwttgUQKHPYAOJT6873-22-36 08:58:00 Test Item Value Reference Range Interpretation Comments Segs-Bands # (test code = Segs-Bands #) 5.4 1.5-8.1 [facility] FallsBiidobcYISJIMNINV9747-89-01 08:58:00 Test Item Value Reference Range Interpretation Comments Monocytes # (test code 1.1 See_Comment [Aut omated message] The = Monocytes #) system which generated this result tra nsmitted reference range : <=0.8. The reference r malinda was not used to int erpret this result as normal/abnormal . [facility] FallsJyrwgxjSUMLDOPBHH3816-78-06 08:58:00 Test Item Value Reference Range Interpretation Comments Lymphocytes # (test code = Lymphocytes 2.1 1.0-5.5 #) [facility] FallsPytcxjhSMNKBVUSJS4896-21-56 08:58:00 Test Item Value Reference Range Interpretation Comments Eosinophils (test code = 2.1 See_Comment [A utomated message] The Eosinophils) system which ge nerated this result tra nsmitted reference range : <=4.0. The reference r malinda was not used to int erpret this result as normal/abnormal . [facility] FallsGccbqqaOBBAENQJUK4748-86-57 08:58:00 Test Item Value Reference Range Interpretation Comments Basophils (test code = 0.6 See_Comment [Aut omated message] The Basophils) system which ge nerated this result tra nsmitted reference range : <=1.0. The reference r malinda was not used to int erpret this result as normal/abnormal . [facility] FallsVmjkwrjASSIOKMSZA0161-81-54 08:58:00 Test Item Value Reference Range Interpretation Comments Lymphocytes (test code = Lymphocytes) 23.7 20.0-40.0 [facility] FallsMrifokwGIMNWQFMPO5902-56-14 08:58:00 Test Item Value Reference Range Interpretation Comments Monocytes (test code = Monocytes) 12.4 2.0-12.0 [facility] FallsSaxqmhnXUGHKVMOZQ5389-13-56 08:58:00 Test Item Value Reference Range Interpretation Comments Segs (test code = Segs) 61.2 45.0-75.0 [facility]TufntoxBYKNMBVROMOS4825-83-37 08:58:00 Test Item Value Reference Range Interpretation Comments Chloride Lvl (test code = Chloride Lvl) 99 95-109 [facility]iacHczwgbiKWGMXVUQMHWR1102-42-54 08:58:00 Test Item Value Reference Range Interpretation Comments Potassium Lvl (test code = Potassium 2.5 3.5-5.1 Lvl) [facility]GcrkvixPWRGGXIVSQTZ0300-60-93 08:58:00 Test Item Value Reference Range Interpretation Comments Sodium Lvl (test code = Sodium Lvl) 136 135-145 [facility]iacCuqegoyRRZBZCSSLNOA4299-23-30 08:58:00 Test Item Value Reference Range Interpretation Comments CO2 (test code = CO2) 25 24-32 [facility]iacRpahthtHYKKTIGYJYAE9514-69-75 08:58:00 Test Item Value Reference Range Interpretation Comments eGFR (test code = eGFR) 93 [facility]iacAnzjliaRIBXUURGWLYZ1975-08-74 08:58:00 Test Item Value Reference Range Interpretation Comments Calcium Lvl (test code = Calcium Lvl) 9.5 8.5-10.5 [facility]MgyxwdpZVWOGONXQIHQ5182-89-26 08:58:00 Test Item Value Reference Range Interpretation Comments AGAP (test code = AGAP) 14.5 10.0-20.0 [facility]iacStfylbuIOFLRWCFWLNI5568-85-96 08:58:00 Test Item Value Reference Range Interpretation Comments Glucose Lvl (test code = Glucose Lvl) 93 70-99 [facility]WkpyyduKJJJNNGRZOHU9416-52-49 08:58:00 Test Item Value Reference Range Interpretation Comments BUN (test code = BUN) 24 7-22 [facility]SfqucmdSQUKCZXOMWPY5842-11-35 08:58:00 Test Item Value Reference Range Interpretation Comments Creatinine Lvl (test code = Creatinine 0.57 0.50-1.40 Lvl) [facility] FallsWtwmsehAJWFJFAMWF6004-07-34 08:58:00 Test Item Value Reference Range Interpretation Comments PT (test code = PT) 15.9 s 12.0-14.7 [facility] FallsFoluvjeNSCLMEMCMY3944-10-50 08:58:00 Test Item Value Reference Range Interpretation Comments INR (test code = INR) 1.24 0.85-1.17 [facility] FallsTgdonyoIUQCCGBSMC0470-88-30 08:58:00 Test Item Value Reference Range Interpretation Comments PTT (test code = PTT) 35.2 s 22.9-35.8 [facility] FallsNeifrguVBDOXLMPID4889-36-11 08:58:00 Test Item Value Reference Range Interpretation Comments RBC (test code = RBC) 3.67 4.20-5.40 [facility] FallsEijhrweWWCLKWONBI6172-13-32 08:58:00 Test Item Value Reference Range Interpretation Comments Hgb (test code = Hgb) 10.6 12.0-16.0 [facility] FallsVlvsbndCIFUFZCOGE6720-63-96 08:58:00 Test Item Value Reference Range Interpretation Comments WBC (test code = WBC) 8.8 3.7-10.4 [facility] FallsKfcbjleGNDKJUEXHG5219-96-01 08:58:00 Test Item Value Reference Range Interpretation Comments Platelet (test code = Platelet) 490 133-450 [facility] FallsQxgswoiNJEHUVAAWH2348-23-10 08:58:00 Test Item Value Reference Range Interpretation Comments MPV (test code = MPV) 7.5 7.4-10.4 [facility] FallsUnqmdgrZIXIEGCDRT5760-55-39 08:58:00 Test Item Value Reference Range Interpretation Comments MCHC (test code = MCHC) 34.7 32.0-36.0 [facility] FallsQnpgaqsOWHPIBQHZQ1024-24-42 08:58:00 Test Item Value Reference Range Interpretation Comments RDW (test code = RDW) 13.8 11.5-14.5 [facility] FallsYuclrciNMFAVIFQQK9533-82-23 08:58:00 Test Item Value Reference Range Interpretation Comments MCV (test code = MCV) 82.8 80.0-98.0 [facility] FallsHeyywhfSWQTFJPUIC0357-31-08 08:58:00 Test Item Value Reference Range Interpretation Comments MCH (test code = MCH) 28.8 pg 27.0-31.0 [facility] FallsJcjgzjaCAWPQWLZFK2505-57-25 08:58:00 Test Item Value Reference Range Interpretation Comments Hct (test code = Hct) 30.4 36.0-48.0 [facility] FallsDzdgqukMTXHTVWZVY1827-58-16 08:58:00 Test Item Value Reference Range Interpretation Comments Eosinophils # (test code 0.2 See_Comment [A utomated message] The = Eosinophils #) system whic h generated this result tra nsmitted reference range : <=0.5. The reference r malinda was not used to int erpret this result as normal/abnormal . [facility] FallsRyzqjdyGKPXKESUKF2028-35-23 08:58:00 Test Item Value Reference Range Interpretation Comments Segs-Bands # (test code = Segs-Bands #) 5.4 1.5-8.1 [facility] FallsMadhihqQCXOWSOOWG8793-29-22 08:58:00 Test Item Value Reference Range Interpretation Comments Monocytes # (test code 1.1 See_Comment [Aut omated message] The = Monocytes #) system which generated this result tra nsmitted reference range : <=0.8. The reference r malinda was not used to int erpret this result as normal/abnormal . [facility] FallsRhylwpiUNGNNDTKQS0627-38-64 08:58:00 Test Item Value Reference Range Interpretation Comments Lymphocytes # (test code = Lymphocytes 2.1 1.0-5.5 #) [facility] FallsUufvlhgDUPFDWABTU3757-80-78 08:58:00 Test Item Value Reference Range Interpretation Comments Eosinophils (test code = 2.1 See_Comment [A utomated message] The Eosinophils) system which ge nerated this result tra nsmitted reference range : <=4.0. The reference r malinda was not used to int erpret this result as normal/abnormal . [facility] [id number] 08:58:00 Test Item Value Reference Range Interpretation Comments Basophils (test code = 0.6 See_Comment [Aut omated message] The Basophils) system which ge nerated this result tra nsmitted reference range : <=1.0. The reference r malinda was not used to int erpret this result as normal/abnormal . [facility] FallsPjkhnolGKGBJGQDTH1362-92-24 08:58:00 Test Item Value Reference Range Interpretation Comments Lymphocytes (test code = Lymphocytes) 23.7 20.0-40.0 [facility] FallsVqbxqjpYYLCQSKWCX9539-60-79 08:58:00 Test Item Value Reference Range Interpretation Comments Monocytes (test code = Monocytes) 12.4 2.0-12.0 [facility] FallsWrxkylyLEDOHRTBGY1594-20-17 08:58:00 Test Item Value Reference Range Interpretation Comments Segs (test code = Segs) 61.2 45.0-75.0 [facility]uehteqMTYYNTDYNIAC6435-31-09 08:58:00 Test Item Value Reference Range Interpretation Comments Chloride Lvl (test code = Chloride Lvl) 99 95-109 [id number] 08:58:00 Test Item Value Reference Range Interpretation Comments Potassium Lvl (test code = Potassium 2.5 3.5-5.1 Lvl) [id number] 08:58:00 Test Item Value Reference Range Interpretation Comments Sodium Lvl (test code = Sodium Lvl) 136 135-145 [facility]UuwwvgjBBLBWYUYRSTL9437-46-81 08:58:00 Test Item Value Reference Range Interpretation Comments CO2 (test code = CO2) 25 24-32 [facility]2016-10-04 09:47:00 Test Item Value Reference Range Interpretation Comments Magnesium Lvl (test code = Magnesium 1.5 1.8-2.4 Lvl) [facility]2016-10-04 09:47:00 Test Item Value Reference Range Interpretation Comments Magnesium Lvl (test code = Magnesium 1.5 1.8-2.4 Lvl) [facility]2016-10-04 09:47:00 Test Item Value Reference Range Interpretation Comments Magnesium Lvl (test code = Magnesium 1.5 1.8-2.4 Lvl) [facility]2016-10-04 09:47:00 Test Item Value Reference Range Interpretation Comments Magnesium Lvl (test code = Magnesium 1.5 1.8-2.4 Lvl) [facility]2016-10-04 09:47:00 Test Item Value Reference Range Interpretation Comments Magnesium Lvl (test code = Magnesium 1.5 1.8-2.4 Lvl) [facility]2016-10-04 09:47:00 Test Item Value Reference Range Interpretation Comments Magnesium Lvl (test code = Magnesium 1.5 1.8-2.4 Lvl) [facility]2016-10-04 05:40:00 Test Item Value Reference Range Interpretation Comments Sodium Lvl (test code = Sodium Lvl) 140 135-145 [facility]2016-10-04 05:40:00 Test Item Value Reference Range Interpretation Comments Creatinine Lvl (test code = Creatinine 0.70 0.50-1.40 Lvl) [facility]2016-10-04 05:40:00 Test Item Value Reference Range Interpretation Comments BUN (test code = BUN) 23 7-22 [place] 747326-10-04 05:40:00 Test Item Value Reference Range Interpretation Comments Glucose Lvl (test code = Glucose Lvl) 113 70-99 [place] 747326-10-04 05:40:00 Test Item Value Reference Range Interpretation Comments AST (test code = AST) 20 See_Comment [Auto mated message] The system which ge nerated this result transmit james reference range : <=37. The reference range was not used to interpr et this result as mary l/abnormal. [facility]2016-10-04 05:40:00 Test Item Value Reference Range Interpretation Comments Bili Total (test code = Bili Total) 0.8 0.2-1.3 [place] 747326-10-04 05:40:00 Test Item Value Reference Range Interpretation Comments Alk Phos (test code = Alk Phos) 31 39-136 [place] 747326-10-04 05:40:00 Test Item Value Reference Range Interpretation Comments eGFR (test code = eGFR) 88 [facility]2016-10-04 05:40:00 Test Item Value Reference Range Interpretation Comments Total Protein (test code = Total 6.1 6.4-8.4 Protein) [facility]2016-10-04 05:40:00 Test Item Value Reference Range Interpretation Comments Albumin Lvl (test code = Albumin Lvl) 2.8 3.5-5.0 [place] 747326-10-04 05:40:00 Test Item Value Reference Range Interpretation Comments CO2 (test code = CO2) 27 24-32 [facility]2016-10-04 05:40:00 Test Item Value Reference Range Interpretation Comments ALT (test code = ALT) 20 See_Comment [Auto mated message] The system which ge nerated this result transmit james reference range : <=65. The reference range was not used to interpr et this result as mary l/abnormal. [place] 747326-10-04 05:40:00 Test Item Value Reference Range Interpretation Comments A/G Ratio (test code = A/G Ratio) 0.8 0.7-1.6 [facility]2016-10-04 05:40:00 Test Item Value Reference Range Interpretation Comments Globulin (test code = Globulin) 3.3 2.7-4.2 [facility]2016-10-04 05:40:00 Test Item Value Reference Range Interpretation Comments AGAP (test code = AGAP) 15.9 10.0-20.0 [facility]2016-10-04 05:40:00 Test Item Value Reference Range Interpretation Comments B/C Ratio (test code = B/C Ratio) 33 6-25 [facility]2016-10-04 05:40:00 Test Item Value Reference Range Interpretation Comments Calcium Lvl (test code = Calcium Lvl) 9.1 8.5-10.5 [facility]2016-10-04 05:40:00 Test Item Value Reference Range Interpretation Comments Potassium Lvl (test code = Potassium 2.9 3.5-5.1 Lvl) [facility]2016-10-04 05:40:00 Test Item Value Reference Range Interpretation Comments Chloride Lvl (test code = Chloride Lvl) 100 95-109 [facility]2016-10-04 05:40:00 Test Item Value Reference Range Interpretation Comments Sodium Lvl (test code = Sodium Lvl) 140 135-145 [facility]2016-10-04 05:40:00 Test Item Value Reference Range Interpretation Comments Creatinine Lvl (test code = Creatinine 0.70 0.50-1.40 Lvl) [facility]2016-10-04 05:40:00 Test Item Value Reference Range Interpretation Comments BUN (test code = BUN) 23 7-22 [facility]2016-10-04 05:40:00 Test Item Value Reference Range Interpretation Comments Glucose Lvl (test code = Glucose Lvl) 113 70-99 [facility]2016-10-04 05:40:00 Test Item Value Reference Range Interpretation Comments AST (test code = AST) 20 See_Comment [Auto mated message] The system which ge nerated this result transmit james reference range : <=37. The reference range was not used to interpr et this result as mary l/abnormal. [facility]2016-10-04 05:40:00 Test Item Value Reference Range Interpretation Comments Bili Total (test code = Bili Total) 0.8 0.2-1.3 [facility]2016-10-04 05:40:00 Test Item Value Reference Range Interpretation Comments Alk Phos (test code = Alk Phos) 31 39-136 [facility]2016-10-04 05:40:00 Test Item Value Reference Range Interpretation Comments eGFR (test code = eGFR) 88 [facility]2016-10-04 05:40:00 Test Item Value Reference Range Interpretation Comments Total Protein (test code = Total 6.1 6.4-8.4 Protein) [facility]2016-10-04 05:40:00 Test Item Value Reference Range Interpretation Comments Albumin Lvl (test code = Albumin Lvl) 2.8 3.5-5.0 [facility]2016-10-04 05:40:00 Test Item Value Reference Range Interpretation Comments CO2 (test code = CO2) 27 24-32 [facility]2016-10-04 05:40:00 Test Item Value Reference Range Interpretation Comments ALT (test code = ALT) 20 See_Comment [Auto mated message] The system which ge nerated this result transmit james reference range : <=65. The reference range was not used to interpr et this result as mary l/abnormal. [facility]2016-10-04 05:40:00 Test Item Value Reference Range Interpretation Comments A/G Ratio (test code = A/G Ratio) 0.8 0.7-1.6 [facility]2016-10-04 05:40:00 Test Item Value Reference Range Interpretation Comments Globulin (test code = Globulin) 3.3 2.7-4.2 [facility]2016-10-04 05:40:00 Test Item Value Reference Range Interpretation Comments AGAP (test code = AGAP) 15.9 10.0-20.0 [facility]2016-10-04 05:40:00 Test Item Value Reference Range Interpretation Comments B/C Ratio (test code = B/C Ratio) 33 6-25 [facility]2016-10-04 05:40:00 Test Item Value Reference Range Interpretation Comments Calcium Lvl (test code = Calcium Lvl) 9.1 8.5-10.5 [facility]2016-10-04 05:40:00 Test Item Value Reference Range Interpretation Comments Potassium Lvl (test code = Potassium 2.9 3.5-5.1 Lvl) [facility]2016-10-04 05:40:00 Test Item Value Reference Range Interpretation Comments Chloride Lvl (test code = Chloride Lvl) 100 95-109 [facility]2016-10-04 05:40:00 Test Item Value Reference Range Interpretation Comments Sodium Lvl (test code = Sodium Lvl) 140 135-145 [facility]2016-10-04 05:40:00 Test Item Value Reference Range Interpretation Comments Creatinine Lvl (test code = Creatinine 0.70 0.50-1.40 Lvl) [facility]2016-10-04 05:40:00 Test Item Value Reference Range Interpretation Comments BUN (test code = BUN) 23 7-22 [facility]2016-10-04 05:40:00 Test Item Value Reference Range Interpretation Comments Glucose Lvl (test code = Glucose Lvl) 113 70-99 [facility]2016-10-04 05:40:00 Test Item Value Reference Range Interpretation Comments AST (test code = AST) 20 See_Comment [Auto mated message] The system which ge nerated this result transmit james reference range : <=37. The reference range was not used to interpr et this result as mary l/abnormal. [facility]2016-10-04 05:40:00 Test Item Value Reference Range Interpretation Comments Bili Total (test code = Bili Total) 0.8 0.2-1.3 [facility]2016-10-04 05:40:00 Test Item Value Reference Range Interpretation Comments Alk Phos (test code = Alk Phos) 31 39-136 [facility]2016-10-04 05:40:00 Test Item Value Reference Range Interpretation Comments eGFR (test code = eGFR) 88 [facility]2016-10-04 05:40:00 Test Item Value Reference Range Interpretation Comments Total Protein (test code = Total 6.1 6.4-8.4 Protein) [facility]2016-10-04 05:40:00 Test Item Value Reference Range Interpretation Comments Albumin Lvl (test code = Albumin Lvl) 2.8 3.5-5.0 [facility]2016-10-04 05:40:00 Test Item Value Reference Range Interpretation Comments CO2 (test code = CO2) 27 24-32 [facility]2016-10-04 05:40:00 Test Item Value Reference Range Interpretation Comments ALT (test code = ALT) 20 See_Comment [Auto mated message] The system which ge nerated this result transmit james reference range : <=65. The reference range was not used to interpr et this result as mary l/abnormal. [facility]2016-10-04 05:40:00 Test Item Value Reference Range Interpretation Comments A/G Ratio (test code = A/G Ratio) 0.8 0.7-1.6 [facility]2016-10-04 05:40:00 Test Item Value Reference Range Interpretation Comments Globulin (test code = Globulin) 3.3 2.7-4.2 [facility]2016-10-04 05:40:00 Test Item Value Reference Range Interpretation Comments AGAP (test code = AGAP) 15.9 10.0-20.0 [facility]2016-10-04 05:40:00 Test Item Value Reference Range Interpretation Comments B/C Ratio (test code = B/C Ratio) 33 6-25 [facility]2016-10-04 05:40:00 Test Item Value Reference Range Interpretation Comments Calcium Lvl (test code = Calcium Lvl) 9.1 8.5-10.5 [facility]2016-10-04 05:40:00 Test Item Value Reference Range Interpretation Comments Potassium Lvl (test code = Potassium 2.9 3.5-5.1 Lvl) [facility]2016-10-04 05:40:00 Test Item Value Reference Range Interpretation Comments Chloride Lvl (test code = Chloride Lvl) 100 95-109 [facility]2016-10-04 05:40:00 Test Item Value Reference Range Interpretation Comments Sodium Lvl (test code = Sodium Lvl) 140 135-145 [facility]2016-10-04 05:40:00 Test Item Value Reference Range Interpretation Comments Creatinine Lvl (test code = Creatinine 0.70 0.50-1.40 Lvl) [facility]2016-10-04 05:40:00 Test Item Value Reference Range Interpretation Comments BUN (test code = BUN) 23 7-22 [facility]2016-10-04 05:40:00 Test Item Value Reference Range Interpretation Comments Glucose Lvl (test code = Glucose Lvl) 113 70-99 [facility]2016-10-04 05:40:00 Test Item Value Reference Range Interpretation Comments AST (test code = AST) 20 See_Comment [Auto mated message] The system which ge nerated this result transmit james reference range : <=37. The reference range was not used to interpr et this result as mary l/abnormal. [facility]2016-10-04 05:40:00 Test Item Value Reference Range Interpretation Comments Bili Total (test code = Bili Total) 0.8 0.2-1.3 [place] 747326-10-04 05:40:00 Test Item Value Reference Range Interpretation Comments Alk Phos (test code = Alk Phos) 31 39-136 [facility]2016-10-04 05:40:00 Test Item Value Reference Range Interpretation Comments eGFR (test code = eGFR) 88 [facility]2016-10-04 05:40:00 Test Item Value Reference Range Interpretation Comments Total Protein (test code = Total 6.1 6.4-8.4 Protein) [facility]2016-10-04 05:40:00 Test Item Value Reference Range Interpretation Comments Albumin Lvl (test code = Albumin Lvl) 2.8 3.5-5.0 [facility]2016-10-04 05:40:00 Test Item Value Reference Range Interpretation Comments CO2 (test code = CO2) 27 24-32 [facility]2016-10-04 05:40:00 Test Item Value Reference Range Interpretation Comments ALT (test code = ALT) 20 See_Comment [Auto mated message] The system which ge nerated this result transmit james reference range : <=65. The reference range was not used to interpr et this result as mary l/abnormal. [facility]2016-10-04 05:40:00 Test Item Value Reference Range Interpretation Comments A/G Ratio (test code = A/G Ratio) 0.8 0.7-1.6 [facility]2016-10-04 05:40:00 Test Item Value Reference Range Interpretation Comments Globulin (test code = Globulin) 3.3 2.7-4.2 [facility]2016-10-04 05:40:00 Test Item Value Reference Range Interpretation Comments AGAP (test code = AGAP) 15.9 10.0-20.0 [facility]2016-10-04 05:40:00 Test Item Value Reference Range Interpretation Comments B/C Ratio (test code = B/C Ratio) 33 6-25 [facility]2016-10-04 05:40:00 Test Item Value Reference Range Interpretation Comments Calcium Lvl (test code = Calcium Lvl) 9.1 8.5-10.5 [facility]2016-10-04 05:40:00 Test Item Value Reference Range Interpretation Comments Potassium Lvl (test code = Potassium 2.9 3.5-5.1 Lvl) [facility]2016-10-04 05:40:00 Test Item Value Reference Range Interpretation Comments Chloride Lvl (test code = Chloride Lvl) 100 95-109 [facility]2016-10-04 05:40:00 Test Item Value Reference Range Interpretation Comments Sodium Lvl (test code = Sodium Lvl) 140 135-145 [facility]2016-10-04 05:40:00 Test Item Value Reference Range Interpretation Comments Creatinine Lvl (test code = Creatinine 0.70 0.50-1.40 Lvl) [facility]2016-10-04 05:40:00 Test Item Value Reference Range Interpretation Comments BUN (test code = BUN) 23 7-22 [facility]2016-10-04 05:40:00 Test Item Value Reference Range Interpretation Comments Glucose Lvl (test code = Glucose Lvl) 113 70-99 [facility]2016-10-04 05:40:00 Test Item Value Reference Range Interpretation Comments AST (test code = AST) 20 See_Comment [Auto mated message] The system which ge nerated this result transmit james reference range : <=37. The reference range was not used to interpr et this result as mary l/abnormal. [facility]2016-10-04 05:40:00 Test Item Value Reference Range Interpretation Comments Bili Total (test code = Bili Total) 0.8 0.2-1.3 [facility]2016-10-04 05:40:00 Test Item Value Reference Range Interpretation Comments Alk Phos (test code = Alk Phos) 31 39-136 [facility]2016-10-04 05:40:00 Test Item Value Reference Range Interpretation Comments eGFR (test code = eGFR) 88 [facility]2016-10-04 05:40:00 Test Item Value Reference Range Interpretation Comments Total Protein (test code = Total 6.1 6.4-8.4 Protein) [facility]2016-10-04 05:40:00 Test Item Value Reference Range Interpretation Comments Albumin Lvl (test code = Albumin Lvl) 2.8 3.5-5.0 [facility]2016-10-04 05:40:00 Test Item Value Reference Range Interpretation Comments CO2 (test code = CO2) 27 24-32 [facility]2016-10-04 05:40:00 Test Item Value Reference Range Interpretation Comments ALT (test code = ALT) 20 See_Comment [Auto mated message] The system which ge nerated this result transmit james reference range : <=65. The reference range was not used to interpr et this result as mary l/abnormal. [facility]2016-10-04 05:40:00 Test Item Value Reference Range Interpretation Comments A/G Ratio (test code = A/G Ratio) 0.8 0.7-1.6 [facility]2016-10-04 05:40:00 Test Item Value Reference Range Interpretation Comments Globulin (test code = Globulin) 3.3 2.7-4.2 [facility]2016-10-04 05:40:00 Test Item Value Reference Range Interpretation Comments AGAP (test code = AGAP) 15.9 10.0-20.0 [facility]2016-10-04 05:40:00 Test Item Value Reference Range Interpretation Comments B/C Ratio (test code = B/C Ratio) 33 6-25 [facility]2016-10-04 05:40:00 Test Item Value Reference Range Interpretation Comments Calcium Lvl (test code = Calcium Lvl) 9.1 8.5-10.5 [facility]2016-10-04 05:40:00 Test Item Value Reference Range Interpretation Comments Potassium Lvl (test code = Potassium 2.9 3.5-5.1 Lvl) [facility]2016-10-04 05:40:00 Test Item Value Reference Range Interpretation Comments Chloride Lvl (test code = Chloride Lvl) 100 95-109 [facility]2016-10-04 05:40:00 Test Item Value Reference Range Interpretation Comments Sodium Lvl (test code = Sodium Lvl) 140 135-145 [facility]2016-10-04 05:40:00 Test Item Value Reference Range Interpretation Comments Creatinine Lvl (test code = Creatinine 0.70 0.50-1.40 Lvl) [facility]2016-10-04 05:40:00 Test Item Value Reference Range Interpretation Comments BUN (test code = BUN) 23 7-22 [facility]2016-10-04 05:40:00 Test Item Value Reference Range Interpretation Comments Glucose Lvl (test code = Glucose Lvl) 113 70-99 [facility]2016-10-04 05:40:00 Test Item Value Reference Range Interpretation Comments AST (test code = AST) 20 See_Comment [Auto mated message] The system which ge nerated this result transmit james reference range : <=37. The reference range was not used to interpr et this result as mary l/abnormal. [facility]2016-10-04 05:40:00 Test Item Value Reference Range Interpretation Comments Bili Total (test code = Bili Total) 0.8 0.2-1.3 [facility]2016-10-04 05:40:00 Test Item Value Reference Range Interpretation Comments Alk Phos (test code = Alk Phos) 31 39-136 [facility]2016-10-04 05:40:00 Test Item Value Reference Range Interpretation Comments eGFR (test code = eGFR) 88 [facility]2016-10-04 05:40:00 Test Item Value Reference Range Interpretation Comments Total Protein (test code = Total 6.1 6.4-8.4 Protein) [facility]2016-10-04 05:40:00 Test Item Value Reference Range Interpretation Comments Albumin Lvl (test code = Albumin Lvl) 2.8 3.5-5.0 [facility] [id number] 05:40:00 Test Item Value Reference Range Interpretation Comments CO2 (test code = CO2) 27 24-32 [facility] [id number] 05:40:00 Test Item Value Reference Range Interpretation Comments ALT (test code = ALT) 20 See_Comment [Auto mated message] The system which ge nerated this result transmit james reference range : <=65. The reference range was not used to interpr et this result as mary l/abnormal. [facility] [id number] 05:40:00 Test Item Value Reference Range Interpretation Comments A/G Ratio (test code = A/G Ratio) 0.8 0.7-1.6 [facility] [id number] 05:40:00 Test Item Value Reference Range Interpretation Comments Globulin (test code = Globulin) 3.3 2.7-4.2 [facility] [id number] 05:40:00 Test Item Value Reference Range Interpretation Comments AGAP (test code = AGAP) 15.9 10.0-20.0 [facility] [id number] 05:40:00 Test Item Value Reference Range Interpretation Comments B/C Ratio (test code = B/C Ratio) 33 6-25 [facility] [id number] 05:40:00 Test Item Value Reference Range Interpretation Comments Calcium Lvl (test code = Calcium Lvl) 9.1 8.5-10.5 [facility] [id number] 05:40:00 Test Item Value Reference Range Interpretation Comments Potassium Lvl (test code = Potassium 2.9 3.5-5.1 Lvl) [facility] [id number] 05:40:00 Test Item Value Reference Range Interpretation Comments Chloride Lvl (test code = Chloride Lvl) 100 95-109 [facility] [id number] 03:24:00 Test Item Value Reference Range Interpretation Comments Troponin-T (test code 0.092 See_Comment [Auto mated message] The = Troponin-T) system which g enerated this result transmit james reference range : <=0.100. The reference r malinda was not used to interpr et this result as mary l/abnormal. [facility]RE[facility] [id number] 03:24:00 Test Item Value Reference Range Interpretation Comments Troponin-I (test code 0.39 See_Comment [Auto mated message] The = Troponin-I) system which g enerated this result transmit james reference range : <=0.40. The reference r malinda was not used to interpr et this result as mary l/abnormal. [facility] [id number] 03:24:00 Test Item Value Reference Range Interpretation Comments Total CK (test code = Total CK) 42 [facility] [id number] 03:24:00 Test Item Value Reference Range Interpretation Comments Troponin-T (test code 0.092 See_Comment [Auto mated message] The = Troponin-T) system which g enerated this result transmit james reference range : <=0.100. The reference r malinda was not used to interpr et this result as mary l/abnormal. [facility] [id number] 03:24:00 Test Item Value Reference Range Interpretation Comments Troponin-I (test code 0.39 See_Comment [Auto mated message] The = Troponin-I) system which g enerated this result transmit james reference range : <=0.40. The reference r malinda was not used to interpr et this result as mary l/abnormal. [facility] [id number] 03:24:00 Test Item Value Reference Range Interpretation Comments Total CK (test code = Total CK) 42 [facility] [facility] [id number] 03:24:00 Test Item Value Reference Range Interpretation Comments Troponin-T (test code 0.092 See_Comment [Auto mated message] The = Troponin-T) system which g enerated this result transmit james reference range : <=0.100. The reference r malinda was not used to interpr et this result as mary l/abnormal. [facility]villeChorusTKAUWBF5252-23-12 03:24:00 Test Item Value Reference Range Interpretation Comments Troponin-I (test code 0.39 See_Comment [Auto mated message] The = Troponin-I) system which g enerated this result transmit james reference range : <=0.40. The reference r malinda was not used to interpr et this result as mary l/abnormal. [facility] EliotChorusZXRRCAJ7544-69-00 03:24:00 Test Item Value Reference Range Interpretation Comments Total CK (test code = Total CK) 42 [facility]jesseREBIScanJETT [id number] 03:24:00 Test Item Value Reference Range Interpretation Comments Troponin-T (test code 0.092 See_Comment [Auto mated message] The = Troponin-T) system which g enerated this result transmit james reference range : <=0.100. The reference r malinda was not used to interpr et this result as mary l/abnormal. [id number] 03:24:00 Test Item Value Reference Range Interpretation Comments Troponin-I (test code 0.39 See_Comment [Auto mated message] The = Troponin-I) system which g enerated this result transmit james reference range : <=0.40. The reference r malinda was not used to interpr et this result as mary l/abnormal. [facility] [employer]2016-10-04 03:24:00 Test Item Value Reference Range Interpretation Comments Total CK (test code = Total CK) 42 [id number] 03:24:00 Test Item Value Reference Range Interpretation Comments Troponin-T (test code 0.092 See_Comment [Auto mated message] The = Troponin-T) system which g enerated this result transmit james reference range : <=0.100. The reference r malinda was not used to interpr et this result as mary l/abnormal. [facility] [employer]2016-10-04 03:24:00 Test Item Value Reference Range Interpretation Comments Troponin-I (test code 0.39 See_Comment [Auto mated message] The = Troponin-I) system which g enerated this result transmit james reference range : <=0.40. The reference r malinda was not used to interpr et this result as mary l/abnormal. [facility] [employer]2016-10-04 03:24:00 Test Item Value Reference Range Interpretation Comments Total CK (test code = Total CK) 42 [facility] HospitalTradeKing2016-[facility] 03:24:00 Test Item Value Reference Range Interpretation Comments Troponin-T (test code 0.092 See_Comment [Auto mated message] The = Troponin-T) system which g enerated this result transmit james reference range : <=0.100. The reference r malinda was not used to interpr et this result as mary l/abnormal. [facility] [employer]2016-10-04 03:24:00 Test Item Value Reference Range Interpretation Comments Troponin-I (test code 0.39 See_Comment [Auto mated message] The = Troponin-I) system which g enerated this result transmit james reference range : <=0.40. The reference r malinda was not used to interpr et this result as mary l/abnormal. [facility] [employer]2016-10-04 03:24:00 Test Item Value Reference Range Interpretation Comments Total CK (test code = Total CK) 42 [facility] [employer]2016-10-03 23:47:00 Test Item Value Reference Range Interpretation Comments Troponin-T (test code 0.153 See_Comment [Auto mated message] The = Troponin-T) system which g enerated this result transmit james reference range : <=0.100. The reference r malinda was not used to interpr et this result as mary l/abnormal. [facility] [employer]2016-10-03 23:47:00 Test Item Value Reference Range Interpretation Comments Troponin-I (test code 0.42 See_Comment [Auto mated message] The = Troponin-I) system which g enerated this result transmit james reference range : <=0.40. The reference r malinda was not used to interpr et this result as mary l/abnormal. [facility] [employer]2016-10-03 23:47:00 Test Item Value Reference Range Interpretation Comments Total CK (test code = Total CK) 44 [facility] [employer]2016-10-03 23:47:00 Test Item Value Reference Range Interpretation Comments Troponin-T (test code 0.153 See_Comment [Auto mated message] The = Troponin-T) system which g enerated this result transmit james reference range : <=0.100. The reference r malinda was not used to interpr et this result as mary l/abnormal. [facility] [employer]2016-10-03 23:47:00 Test Item Value Reference Range Interpretation Comments Troponin-I (test code 0.42 See_Comment [Auto mated message] The = Troponin-I) system which g enerated this result transmit james reference range : <=0.40. The reference r malinda was not used to interpr et this result as mary l/abnormal. [facility] [employer]2016-10-03 23:47:00 Test Item Value Reference Range Interpretation Comments Total CK (test code = Total CK) 44 12-191 [facility] HospitalTradeKing2016-[facility] 23:47:00 Test Item Value Reference Range Interpretation Comments Troponin-T (test code 0.153 See_Comment [Auto mated message] The = Troponin-T) system which g enerated this result transmit james reference range : <=0.100. The reference r malinda was not used to interpr et this result as mary l/abnormal. [facility] [employer]2016-10-03 23:47:00 Test Item Value Reference Range Interpretation Comments Troponin-I (test code 0.42 See_Comment [Auto mated message] The = Troponin-I) system which g enerated this result transmit james reference range : <=0.40. The reference r malinda was not used to interpr et this result as mary l/abnormal. [facility] [employer]2016-10-03 23:47:00 Test Item Value Reference Range Interpretation Comments Total CK (test code = Total CK) 44 12-191 [facility] [employer]2016-10-03 23:47:00 Test Item Value Reference Range Interpretation Comments Troponin-T (test code 0.153 See_Comment [Auto mated message] The = Troponin-T) system which g enerated this result transmit james reference range : <=0.100. The reference r malinda was not used to interpr et this result as mary l/abnormal. [facility] [employer]2016-10-03 23:47:00 Test Item Value Reference Range Interpretation Comments Troponin-I (test code 0.42 See_Comment [Auto mated message] The = Troponin-I) system which g enerated this result transmit james reference range : <=0.40. The reference r malinda was not used to interpr et this result as mary l/abnormal. [facility] HospitalCinemaWell.com [id number] 23:47:00 Test Item Value Reference Range Interpretation Comments Total CK (test code = Total CK) 44 [address] [facility] [id number] 23:47:00 Test Item Value Reference Range Interpretation Comments Troponin-T (test code 0.153 See_Comment [Auto mated message] The = Troponin-T) system which g enerated this result transmit james reference range : <=0.100. The reference r malinda was not used to interpr et this result as mary l/abnormal. [facility]Tr[facility] 23:47:00 Test Item Value Reference Range Interpretation Comments Troponin-I (test code 0.42 See_Comment [Auto mated message] The = Troponin-I) system which g enerated this result transmit james reference range : <=0.40. The reference r malinda was not used to interpr et this result as mary l/abnormal. [facility] HospitalCinemaWell.[facility] [id number] 23:47:00 Test Item Value Reference Range Interpretation Comments Total CK (test code = Total CK) 44 [facility]Tr[facility]2016-10-03 23:47:00 Test Item Value Reference Range Interpretation Comments Troponin-T (test code 0.153 See_Comment [Auto mated message] The = Troponin-T) system which g enerated this result transmit james reference range : <=0.100. The reference r malinda was not used to interpr et this result as mary l/abnormal. [facility] [employer]2016-10-03 23:47:00 Test Item Value Reference Range Interpretation Comments Troponin-I (test code 0.42 See_Comment [Auto mated message] The = Troponin-I) system which g enerated this result transmit james reference range : <=0.40. The reference r malinda was not used to interpr et this result as mary l/abnormal. [facility] [employer]2016-10-03 23:47:00 Test Item Value Reference Range Interpretation Comments Total CK (test code = Total CK) 44 12 [facility]Tr[facility]King2016-[facility]-03 19:56:00 Test Item Value Reference Range Interpretation Comments Troponin-T (test code 0.149 See_Comment [Auto mated message] The = Troponin-T) system which g enerated this result transmit james reference range : <=0.100. The reference r malinda was not used to interpr et this result as mary l/abnormal. [facility] [employer]2016-10-03 19:56:00 Test Item Value Reference Range Interpretation Comments Troponin-I (test code 0.44 See_Comment [Auto mated message] The = Troponin-I) system which g enerated this result transmit james reference range : <=0.40. The reference r malinda was not used to interpr et this result as mary l/abnormal. [facility] [employer]2016-10-03 19:56:00 Test Item Value Reference Range Interpretation Comments Total CK (test code = Total CK) 46 191 [facility]2016-[facility] 19:56:00 Test Item Value Reference Range Interpretation Comments Troponin-T (test code 0.149 See_Comment [Auto mated message] The = Troponin-T) system which g enerated this result transmit james reference range : <=0.100. The reference r malinda was not used to interpr et this result as mary l/abnormal. [facility] [employer]2016-10-03 19:56:00 Test Item Value Reference Range Interpretation Comments Troponin-I (test code 0.44 See_Comment [Auto mated message] The = Troponin-I) system which g enerated this result transmit james reference range : <=0.40. The reference r malinda was not used to interpr et this result as mary l/abnormal. [facility] [employer]2016-10-03 19:56:00 Test Item Value Reference Range Interpretation Comments Total CK (test code = Total CK) 46 12-191 [facility]2016-[facility] 19:56:00 Test Item Value Reference Range Interpretation Comments Troponin-T (test code 0.149 See_Comment [Auto mated message] The = Troponin-T) system which g enerated this result transmit james reference range : <=0.100. The reference r malinda was not used to interpr et this result as mary l/abnormal. [facility] [employer]2016-10-03 19:56:00 Test Item Value Reference Range Interpretation Comments Troponin-I (test code 0.44 See_Comment [Auto mated message] The = Troponin-I) system which g enerated this result transmit james reference range : <=0.40. The reference r malinda was not used to interpr et this result as mary l/abnormal. [facility] [employer]2016-10-03 19:56:00 Test Item Value Reference Range Interpretation Comments Total CK (test code = Total CK) 46 12-191 [facility] [employer]2016-10-03 19:56:00 Test Item Value Reference Range Interpretation Comments Troponin-T (test code 0.149 See_Comment [Auto mated message] The = Troponin-T) system which g enerated this result transmit james reference range : <=0.100. The reference r malinda was not used to interpr et this result as mary l/abnormal. [facility] [employer]2016-10-03 19:56:00 Test Item Value Reference Range Interpretation Comments Troponin-I (test code 0.44 See_Comment [Auto mated message] The = Troponin-I) system which g enerated this result transmit james reference range : <=0.40. The reference r malinda was not used to interpr et this result as mary l/abnormal. [facility] [employer]2016-10-03 19:56:00 Test Item Value Reference Range Interpretation Comments Total CK (test code = Total CK) 46 12-191 [facility]2016-[facility] 19:56:00 Test Item Value Reference Range Interpretation Comments Troponin-T (test code 0.149 See_Comment [Auto mated message] The = Troponin-T) system which g enerated this result transmit james reference range : <=0.100. The reference r malinda was not used to interpr et this result as mary l/abnormal. [facility] [employer]2016-10-03 19:56:00 Test Item Value Reference Range Interpretation Comments Troponin-I (test code 0.44 See_Comment [Auto mated message] The = Troponin-I) system which g enerated this result transmit james reference range : <=0.40. The reference r malinda was not used to interpr et this result as mary l/abnormal. [facility] [employer]2016-10-03 19:56:00 Test Item Value Reference Range Interpretation Comments Total CK (test code = Total CK) 46 191 [facility] [id number] 19:56:00 Test Item Value Reference Range Interpretation Comments Troponin-T (test code 0.149 See_Comment [Auto mated message] The = Troponin-T) system which g enerated this result transmit james reference range : <=0.100. The reference r malinda was not used to interpr et this result as mray l/abnormal. [facility] [id number] 19:56:00 Test Item Value Reference Range Interpretation Comments Troponin-I (test code 0.44 See_Comment [Auto mated message] The = Troponin-I) system which g enerated this result transmit james reference range : <=0.40. The reference r malinda was not used to interpr et this result as mary l/abnormal. [facility] [id number] 19:56:00 Test Item Value Reference Range Interpretation Comments Total CK (test code = Total CK) 46 [facility] FallsYeyfrwsYJHDJWRMWZ4071-20-06 17:32:00 Test Item Value Reference Range Interpretation Comments Basophils # (test code 0.1 See_Comment [Aut omated message] The = Basophils #) system which generated this result tra nsmitted reference range : <=0.2. The reference r malinda was not used to int erpret this result as normal/abnormal . [facility] FallsNqggmhmDUITIXKERO4931-19-41 17:32:00 Test Item Value Reference Range Interpretation Comments Lymphocytes (test code = Lymphocytes) 14.6 20.0-40.0 [facility] FallsIvtbojsCTYRGFQENK2873-56-71 17:32:00 Test Item Value Reference Range Interpretation Comments Segs-Bands # (test code = Segs-Bands #) 4.5 1.5-8.1 [facility] FallsXicsrjgTXFFKAAWEY6680-52-13 17:32:00 Test Item Value Reference Range Interpretation Comments Monocytes (test code = Monocytes) 4.2 2.0-12.0 [facility] FallsDkvkzfnYYUPCSMFLT3588-80-15 17:32:00 Test Item Value Reference Range Interpretation Comments Basophils (test code = 0.9 See_Comment [Aut omated message] The Basophils) system which ge nerated this result tra nsmitted reference range : <=1.0. The reference r malinda was not used to int erpret this result as normal/abnormal . [facility] FallsYkcbnnaGTFGHZSNBE0465-45-18 17:32:00 Test Item Value Reference Range Interpretation Comments Eosinophils # (test code 0.4 See_Comment [A utomated message] The = Eosinophils #) system whic h generated this result tra nsmitted reference range : <=0.5. The reference r malinda was not used to int erpret this result as normal/abnormal . [facility] FallsVbvmbpsDPYSHUDEZS3618-70-19 17:32:00 Test Item Value Reference Range Interpretation Comments Monocytes # (test code 0.3 See_Comment [Aut omated message] The = Monocytes #) system which generated this result tra nsmitted reference range : <=0.8. The reference r malinda was not used to int erpret this result as normal/abnormal . [facility] FallsRblipneLHXQRVHKZY5356-38-29 17:32:00 Test Item Value Reference Range Interpretation Comments Lymphocytes # (test code = Lymphocytes 0.9 1.0-5.5 #) [facility] FallsYeutjghAFEMVIOTVW4521-73-35 17:32:00 Test Item Value Reference Range Interpretation Comments Segs (test code = Segs) 74.1 45.0-75.0 [facility] FallsFdacjrdKRVFWWVPRX5523-59-07 17:32:00 Test Item Value Reference Range Interpretation Comments Eosinophils (test code = 6.2 See_Comment [A utomated message] The Eosinophils) system which ge nerated this result tra nsmitted reference range : <=4.0. The reference r malinda was not used to int erpret this result as normal/abnormal . [facility] FallsXdgthjbLTJOKZBVRE3597-32-48 17:32:00 Test Item Value Reference Range Interpretation Comments MPV (test code = MPV) 6.7 7.4-10.4 [facility] FallsMudzvuqCXVPKCCRUF0917-78-19 17:32:00 Test Item Value Reference Range Interpretation Comments Platelet (test code = Platelet) 300 133-450 [facility] FallsAchyokrKSFZQWESRV9417-84-89 17:32:00 Test Item Value Reference Range Interpretation Comments Hct (test code = Hct) 31.2 36.0-48.0 [facility] FallsRcvkddeZNYLAZUQMC2173-62-43 17:32:00 Test Item Value Reference Range Interpretation Comments Hgb (test code = Hgb) 10.5 12.0-16.0 [facility] FallsPmhdvctXJXNWZSCQJ3630-91-13 17:32:00 Test Item Value Reference Range Interpretation Comments MCV (test code = MCV) 84.5 80.0-98.0 [facility] FallsLhxepvrQFBSQLABEG2964-83-70 17:32:00 Test Item Value Reference Range Interpretation Comments MCHC (test code = MCHC) 33.6 32.0-36.0 [facility] FallsUoorpipGDQOQHGBFZ7002-85-15 17:32:00 Test Item Value Reference Range Interpretation Comments MCH (test code = MCH) 28.4 pg 27.0-31.0 [facility] FallsEeajkbwNYWMMTUYMZ4888-09-60 17:32:00 Test Item Value Reference Range Interpretation Comments RDW (test code = RDW) 13.5 11.5-14.5 [facility] FallsNlzogfyWMZYAYXDZG0586-23-65 17:32:00 Test Item Value Reference Range Interpretation Comments WBC (test code = WBC) 6.0 3.7-10.4 [facility] FallsUdawkdzFFHSLCCLYB6735-29-13 17:32:00 Test Item Value Reference Range Interpretation Comments RBC (test code = RBC) 3.69 4.20-5.40 [facility] FallsDjginrnZMCJXIMTSE5119-78-66 17:32:00 Test Item Value Reference Range Interpretation Comments Basophils # (test code 0.1 See_Comment [Aut omated message] The = Basophils #) system which generated this result tra nsmitted reference range : <=0.2. The reference r malinda was not used to int erpret this result as normal/abnormal . [facility] FallsIryseopBKGBPFKIQF7248-19-12 17:32:00 Test Item Value Reference Range Interpretation Comments Lymphocytes (test code = Lymphocytes) 14.6 20.0-40.0 [facility] FallsQcqenqdQYXFBWUCXO0633-44-59 17:32:00 Test Item Value Reference Range Interpretation Comments Segs-Bands # (test code = Segs-Bands #) 4.5 1.5-8.1 [facility] FallsPqfkrsvSOJWESAWFH4877-71-04 17:32:00 Test Item Value Reference Range Interpretation Comments Monocytes (test code = Monocytes) 4.2 2.0-12.0 [facility] FallsTybdbbwYJAIEZRZJG7958-39-92 17:32:00 Test Item Value Reference Range Interpretation Comments Basophils (test code = 0.9 See_Comment [Aut omated message] The Basophils) system which ge nerated this result tra nsmitted reference range : <=1.0. The reference r malinda was not used to int erpret this result as normal/abnormal . [facility] FallsLpcgkhzNYMBRTNHYM2136-80-99 17:32:00 Test Item Value Reference Range Interpretation Comments Eosinophils # (test code 0.4 See_Comment [A utomated message] The = Eosinophils #) system whic h generated this result tra nsmitted reference range : <=0.5. The reference r malinda was not used to int erpret this result as normal/abnormal . [facility] FallsZjgotpxWYQYYRNGUK1808-53-24 17:32:00 Test Item Value Reference Range Interpretation Comments Monocytes # (test code 0.3 See_Comment [Aut omated message] The = Monocytes #) system which generated this result tra nsmitted reference range : <=0.8. The reference r malinda was not used to int erpret this result as normal/abnormal . [facility] FallsInszmigBXBHIWUFTI7495-05-38 17:32:00 Test Item Value Reference Range Interpretation Comments Lymphocytes # (test code = Lymphocytes 0.9 1.0-5.5 #) [facility] FallsCtoxwanNDCGADYIJE6778-21-86 17:32:00 Test Item Value Reference Range Interpretation Comments Segs (test code = Segs) 74.1 45.0-75.0 [facility] FallsCfiqiftIIYBRNZMCG5921-99-47 17:32:00 Test Item Value Reference Range Interpretation Comments Eosinophils (test code = 6.2 See_Comment [A utomated message] The Eosinophils) system which ge nerated this result tra nsmitted reference range : <=4.0. The reference r malinda was not used to int erpret this result as normal/abnormal . [facility] FallsScsqivoAVQYCJCKET5381-76-23 17:32:00 Test Item Value Reference Range Interpretation Comments MPV (test code = MPV) 6.7 7.4-10.4 [facility] FallsLcucyibJAABIROYQW8298-21-95 17:32:00 Test Item Value Reference Range Interpretation Comments Platelet (test code = Platelet) 300 133-450 [facility] FallsMxoyjrtGUWHIBSISF0770-69-05 17:32:00 Test Item Value Reference Range Interpretation Comments Hct (test code = Hct) 31.2 36.0-48.0 [facility] FallsBoxpbexXJQTCYCGUM6880-70-04 17:32:00 Test Item Value Reference Range Interpretation Comments Hgb (test code = Hgb) 10.5 12.0-16.0 [facility] FallsJhkrqfwTUGHAIUIYS4278-88-79 17:32:00 Test Item Value Reference Range Interpretation Comments MCV (test code = MCV) 84.5 80.0-98.0 [facility] FallsDvmfbdjSXXROCSNWY9504-33-53 17:32:00 Test Item Value Reference Range Interpretation Comments MCHC (test code = MCHC) 33.6 32.0-36.0 [facility] FallsGlaiucuOAKTMKRIOT9579-59-41 17:32:00 Test Item Value Reference Range Interpretation Comments MCH (test code = MCH) 28.4 pg 27.0-31.0 [facility] FallsRcjhcbbOUTQFWGZHG9328-79-08 17:32:00 Test Item Value Reference Range Interpretation Comments RDW (test code = RDW) 13.5 11.5-14.5 [facility] FallsMwtmwrnCIHCJNWOCA3498-68-97 17:32:00 Test Item Value Reference Range Interpretation Comments WBC (test code = WBC) 6.0 3.7-10.4 [facility] FallsKpxsbewLFRVOCUHXM8769-74-42 17:32:00 Test Item Value Reference Range Interpretation Comments RBC (test code = RBC) 3.69 4.20-5.40 [facility] FallsFbnesvlMTXDUJJLNJ1221-04-40 17:32:00 Test Item Value Reference Range Interpretation Comments Basophils # (test code 0.1 See_Comment [Aut omated message] The = Basophils #) system which generated this result tra nsmitted reference range : <=0.2. The reference r malinda was not used to int erpret this result as normal/abnormal . [facility] FallsNrfrzniGTFPPSFGLD0096-16-11 17:32:00 Test Item Value Reference Range Interpretation Comments Lymphocytes (test code = Lymphocytes) 14.6 20.0-40.0 [facility] FallsLyufhjcMJGJFDRHBP0942-59-98 17:32:00 Test Item Value Reference Range Interpretation Comments Segs-Bands # (test code = Segs-Bands #) 4.5 1.5-8.1 [facility] FallsShaaebgGPBKKLMXJP6352-18-88 17:32:00 Test Item Value Reference Range Interpretation Comments Monocytes (test code = Monocytes) 4.2 2.0-12.0 [facility] FallsTambspfIKOXYRNVJH1974-47-33 17:32:00 Test Item Value Reference Range Interpretation Comments Basophils (test code = 0.9 See_Comment [Aut omated message] The Basophils) system which ge nerated this result tra nsmitted reference range : <=1.0. The reference r malinda was not used to int erpret this result as normal/abnormal . [facility] FallsRgmmjydDZLXXCYACC0375-26-55 17:32:00 Test Item Value Reference Range Interpretation Comments Eosinophils # (test code 0.4 See_Comment [A utomated message] The = Eosinophils #) system whic h generated this result tra nsmitted reference range : <=0.5. The reference r malinda was not used to int erpret this result as normal/abnormal . [facility] FallsWdblqtxVTWFVXSUWM5025-25-90 17:32:00 Test Item Value Reference Range Interpretation Comments Monocytes # (test code 0.3 See_Comment [Aut omated message] The = Monocytes #) system which generated this result tra nsmitted reference range : <=0.8. The reference r malinda was not used to int erpret this result as normal/abnormal . [facility] FallsEexrxcsCLPLNTBWQU9443-41-85 17:32:00 Test Item Value Reference Range Interpretation Comments Lymphocytes # (test code = Lymphocytes 0.9 1.0-5.5 #) [facility] FallsOuuhhygYLXWPSUDBG9096-31-29 17:32:00 Test Item Value Reference Range Interpretation Comments Segs (test code = Segs) 74.1 45.0-75.0 [facility] FallsOuyouplIWWVNBXZBY5688-76-11 17:32:00 Test Item Value Reference Range Interpretation Comments Eosinophils (test code = 6.2 See_Comment [A utomated message] The Eosinophils) system which ge nerated this result tra nsmitted reference range : <=4.0. The reference r malinda was not used to int erpret this result as normal/abnormal . [facility] FallsWyufaqmLPRXZHOFOT5714-62-76 17:32:00 Test Item Value Reference Range Interpretation Comments MPV (test code = MPV) 6.7 7.4-10.4 [facility] FallsEwhkdldLNADTKAZLE0332-56-18 17:32:00 Test Item Value Reference Range Interpretation Comments Platelet (test code = Platelet) 300 133-450 [facility] FallsJrnzdjhHOKHWCMITJ4262-35-35 17:32:00 Test Item Value Reference Range Interpretation Comments Hct (test code = Hct) 31.2 36.0-48.0 [facility] FallsLlxhjbjWGWCMKLXWP5553-41-93 17:32:00 Test Item Value Reference Range Interpretation Comments Hgb (test code = Hgb) 10.5 12.0-16.0 [facility] FallsFfwvbuqIOMFISMVXJ1625-99-47 17:32:00 Test Item Value Reference Range Interpretation Comments MCV (test code = MCV) 84.5 80.0-98.0 [facility] FallsKampkyxYLGTOLFCBK6948-37-35 17:32:00 Test Item Value Reference Range Interpretation Comments MCHC (test code = MCHC) 33.6 32.0-36.0 [facility] FallsTzugofxXLGZDZEJVU2686-43-01 17:32:00 Test Item Value Reference Range Interpretation Comments MCH (test code = MCH) 28.4 pg 27.0-31.0 [facility] FallsOzetukxTZDMMVNJCR4375-72-21 17:32:00 Test Item Value Reference Range Interpretation Comments RDW (test code = RDW) 13.5 11.5-14.5 [facility] FallsFmsjaixJEJEUAXYIE2403-48-07 17:32:00 Test Item Value Reference Range Interpretation Comments WBC (test code = WBC) 6.0 3.7-10.4 [facility] FallsRvwmopyOFZWINQYIN4163-21-96 17:32:00 Test Item Value Reference Range Interpretation Comments RBC (test code = RBC) 3.69 4.20-5.40 [facility] FallsZqanmfoHZDINKXXEG5403-39-04 17:32:00 Test Item Value Reference Range Interpretation Comments Basophils # (test code 0.1 See_Comment [Aut omated message] The = Basophils #) system which generated this result tra nsmitted reference range : <=0.2. The reference r malinda was not used to int erpret this result as normal/abnormal . [facility] FallsZyqjnfzQQIVQIYCLA5865-54-85 17:32:00 Test Item Value Reference Range Interpretation Comments Lymphocytes (test code = Lymphocytes) 14.6 20.0-40.0 [facility] FallsDbkyjlsTOQHGFFHLR9211-73-77 17:32:00 Test Item Value Reference Range Interpretation Comments Segs-Bands # (test code = Segs-Bands #) 4.5 1.5-8.1 [facility] FallsJgoqaqtPGDUMONTZM8424-45-78 17:32:00 Test Item Value Reference Range Interpretation Comments Monocytes (test code = Monocytes) 4.2 2.0-12.0 [facility] FallsBeykogkPQSERHIKIS8982-99-17 17:32:00 Test Item Value Reference Range Interpretation Comments Basophils (test code = 0.9 See_Comment [Aut omated message] The Basophils) system which ge nerated this result tra nsmitted reference range : <=1.0. The reference r malinda was not used to int erpret this result as normal/abnormal . [facility] FallsDhmvghjOOXXMWJHVM7574-52-16 17:32:00 Test Item Value Reference Range Interpretation Comments Eosinophils # (test code 0.4 See_Comment [A utomated message] The = Eosinophils #) system whic h generated this result tra nsmitted reference range : <=0.5. The reference r malinda was not used to int erpret this result as normal/abnormal . [facility] FallsGscreyoVQCRZPZJPM4038-62-59 17:32:00 Test Item Value Reference Range Interpretation Comments Monocytes # (test code 0.3 See_Comment [Aut omated message] The = Monocytes #) system which generated this result tra nsmitted reference range : <=0.8. The reference r malinda was not used to int erpret this result as normal/abnormal . [facility] FallsZwhoosnTUHVJQECUQ2660-83-86 17:32:00 Test Item Value Reference Range Interpretation Comments Lymphocytes # (test code = Lymphocytes 0.9 1.0-5.5 #) [facility] FallsOhthrcnTFXYCTSBEE7958-87-07 17:32:00 Test Item Value Reference Range Interpretation Comments Segs (test code = Segs) 74.1 45.0-75.0 [facility] FallsLfzczwyOZDOTZFZWS4722-85-17 17:32:00 Test Item Value Reference Range Interpretation Comments Eosinophils (test code = 6.2 See_Comment [A utomated message] The Eosinophils) system which ge nerated this result tra nsmitted reference range : <=4.0. The reference r malinda was not used to int erpret this result as normal/abnormal . [facility] FallsDjlcwraQPOZCKZSNG2684-52-88 17:32:00 Test Item Value Reference Range Interpretation Comments MPV (test code = MPV) 6.7 7.4-10.4 [facility] FallsPyfexjzECFGEHUCCD9312-58-64 17:32:00 Test Item Value Reference Range Interpretation Comments Platelet (test code = Platelet) 300 133-450 [facility] FallsTzwvoayFKVIQUHTFJ2031-06-35 17:32:00 Test Item Value Reference Range Interpretation Comments Hct (test code = Hct) 31.2 36.0-48.0 [facility] FallsHfzcjxzRUSISXYZEG4721-88-57 17:32:00 Test Item Value Reference Range Interpretation Comments Hgb (test code = Hgb) 10.5 12.0-16.0 [facility] FallsYwoyzygFQQOYFAWSN8400-73-99 17:32:00 Test Item Value Reference Range Interpretation Comments MCV (test code = MCV) 84.5 80.0-98.0 [facility] FallsUyjbmztUTNOJPVRLX6975-97-92 17:32:00 Test Item Value Reference Range Interpretation Comments MCHC (test code = MCHC) 33.6 32.0-36.0 [facility] FallsRlmgtyoBVVZDSASOQ3746-39-45 17:32:00 Test Item Value Reference Range Interpretation Comments MCH (test code = MCH) 28.4 pg 27.0-31.0 [facility] FallsKpkjcndWSKSWIMGRV8291-84-28 17:32:00 Test Item Value Reference Range Interpretation Comments RDW (test code = RDW) 13.5 11.5-14.5 [facility] FallsDlxyeifGTMRCRFBCL3512-15-89 17:32:00 Test Item Value Reference Range Interpretation Comments WBC (test code = WBC) 6.0 3.7-10.4 [facility] FallsGhyetbcQEGGLNTCPM5624-54-41 17:32:00 Test Item Value Reference Range Interpretation Comments RBC (test code = RBC) 3.69 4.20-5.40 [facility] FallsGlasmimEMOPHCISEC9045-09-16 17:32:00 Test Item Value Reference Range Interpretation Comments Basophils # (test code 0.1 See_Comment [Aut omated message] The = Basophils #) system which generated this result tra nsmitted reference range : <=0.2. The reference r malinda was not used to int erpret this result as normal/abnormal . [facility] FallsFhkzgjkSOLRNUGFKS6426-98-40 17:32:00 Test Item Value Reference Range Interpretation Comments Lymphocytes (test code = Lymphocytes) 14.6 20.0-40.0 [facility] FallsWjhikvaFEXJWZBVGG5411-59-10 17:32:00 Test Item Value Reference Range Interpretation Comments Segs-Bands # (test code = Segs-Bands #) 4.5 1.5-8.1 [facility] FallsNzougeuVDHEAYTGVO2303-04-70 17:32:00 Test Item Value Reference Range Interpretation Comments Monocytes (test code = Monocytes) 4.2 2.0-12.0 [facility] FallsXphdqsvIBIWLMQYEJ8296-00-57 17:32:00 Test Item Value Reference Range Interpretation Comments Basophils (test code = 0.9 See_Comment [Aut omated message] The Basophils) system which ge nerated this result tra nsmitted reference range : <=1.0. The reference r malinda was not used to int erpret this result as normal/abnormal . [facility] FallsSepkotvPMJPCCJSDQ8405-38-94 17:32:00 Test Item Value Reference Range Interpretation Comments Eosinophils # (test code 0.4 See_Comment [A utomated message] The = Eosinophils #) system whic h generated this result tra nsmitted reference range : <=0.5. The reference r malinda was not used to int erpret this result as normal/abnormal . [facility] FallsFidrxhtGXCFWFMGFL6798-47-11 17:32:00 Test Item Value Reference Range Interpretation Comments Monocytes # (test code 0.3 See_Comment [Aut omated message] The = Monocytes #) system which generated this result tra nsmitted reference range : <=0.8. The reference r malinda was not used to int erpret this result as normal/abnormal . [facility] FallsDwjtytsLAXESQKIFA6779-98-58 17:32:00 Test Item Value Reference Range Interpretation Comments Lymphocytes # (test code = Lymphocytes 0.9 1.0-5.5 #) [facility] FallsAfglempIBDJSNIUFC1632-69-14 17:32:00 Test Item Value Reference Range Interpretation Comments Segs (test code = Segs) 74.1 45.0-75.0 [facility] FallsAaviztkUOQHSTADKN1521-81-36 17:32:00 Test Item Value Reference Range Interpretation Comments Eosinophils (test code = 6.2 See_Comment [A utomated message] The Eosinophils) system which ge nerated this result tra nsmitted reference range : <=4.0. The reference r malinda was not used to int erpret this result as normal/abnormal . [facility] FallsOgqzoprDFWLBKNIQC3407-71-24 17:32:00 Test Item Value Reference Range Interpretation Comments MPV (test code = MPV) 6.7 7.4-10.4 [facility] FallsNoliuvkSQLBUSPUMZ7916-74-33 17:32:00 Test Item Value Reference Range Interpretation Comments Platelet (test code = Platelet) 300 133-450 [facility] FallsPkvjqkeOXYYMSCIRG0759-04-14 17:32:00 Test Item Value Reference Range Interpretation Comments Hct (test code = Hct) 31.2 36.0-48.0 [facility] FallsKipophyYAGZAWXDRI1084-14-12 17:32:00 Test Item Value Reference Range Interpretation Comments Hgb (test code = Hgb) 10.5 12.0-16.0 [facility] FallsDbiinjnRCNPJUAHVK0207-56-67 17:32:00 Test Item Value Reference Range Interpretation Comments MCV (test code = MCV) 84.5 80.0-98.0 [facility] FallsCaziujbYGJINCSZXE1787-90-59 17:32:00 Test Item Value Reference Range Interpretation Comments MCHC (test code = MCHC) 33.6 32.0-36.0 [facility] FallsYtlvdzpHQRMIEYVQX3256-86-56 17:32:00 Test Item Value Reference Range Interpretation Comments MCH (test code = MCH) 28.4 pg 27.0-31.0 [facility] FallsYlzdiumTYAGTGJKGE7439-03-32 17:32:00 Test Item Value Reference Range Interpretation Comments RDW (test code = RDW) 13.5 11.5-14.5 [facility] FallsFndgsbeDYGUPEDBUW0357-87-04 17:32:00 Test Item Value Reference Range Interpretation Comments WBC (test code = WBC) 6.0 3.7-10.4 [facility] FallsQrkzlqtVXDEDFAWHT8618-64-07 17:32:00 Test Item Value Reference Range Interpretation Comments RBC (test code = RBC) 3.69 4.20-5.40 [facility] FallsFikbcxyCEHNBNYNVA6174-07-55 17:32:00 Test Item Value Reference Range Interpretation Comments Basophils # (test code 0.1 See_Comment [Aut omated message] The = Basophils #) system which generated this result tra nsmitted reference range : <=0.2. The reference r malinda was not used to int erpret this result as normal/abnormal . [facility] FallsJzizmptDPKGVOVEYQ7695-47-82 17:32:00 Test Item Value Reference Range Interpretation Comments Lymphocytes (test code = Lymphocytes) 14.6 20.0-40.0 [facility] FallsTwmfvlpUDMQZGMIQD5095-78-36 17:32:00 Test Item Value Reference Range Interpretation Comments Segs-Bands # (test code = Segs-Bands #) 4.5 1.5-8.1 [facility] FallsQfsaxteCKNBELSMZE7934-81-43 17:32:00 Test Item Value Reference Range Interpretation Comments Monocytes (test code = Monocytes) 4.2 2.0-12.0 [facility] FallsHoxkrrrWBOKIDWOHA7178-37-76 17:32:00 Test Item Value Reference Range Interpretation Comments Basophils (test code = 0.9 See_Comment [Aut omated message] The Basophils) system which ge nerated this result tra nsmitted reference range : <=1.0. The reference r malinda was not used to int erpret this result as normal/abnormal . [facility] FallsMqihkdvCPPHIHGUNM1406-76-94 17:32:00 Test Item Value Reference Range Interpretation Comments Eosinophils # (test code 0.4 See_Comment [A utomated message] The = Eosinophils #) system whic h generated this result tra nsmitted reference range : <=0.5. The reference r malinda was not used to int erpret this result as normal/abnormal . [facility] FallsHasdpkcIXXIAJBUEK0145-41-38 17:32:00 Test Item Value Reference Range Interpretation Comments Monocytes # (test code 0.3 See_Comment [Aut omated message] The = Monocytes #) system which generated this result tra nsmitted reference range : <=0.8. The reference r malinda was not used to int erpret this result as normal/abnormal . [facility] FallsBguhubwGFIFLKTLNV9211-27-26 17:32:00 Test Item Value Reference Range Interpretation Comments Lymphocytes # (test code = Lymphocytes 0.9 1.0-5.5 #) [facility] FallsTqqxnplMLSMXNVONE5708-37-22 17:32:00 Test Item Value Reference Range Interpretation Comments Segs (test code = Segs) 74.1 45.0-75.0 [facility] FallsBovtuooOVIVAOBTZL6820-19-02 17:32:00 Test Item Value Reference Range Interpretation Comments Eosinophils (test code = 6.2 See_Comment [A utomated message] The Eosinophils) system which ge nerated this result tra nsmitted reference range : <=4.0. The reference r malinda was not used to int erpret this result as normal/abnormal . [facility] FallsYinanjcJVFVVHSUIU3927-40-39 17:32:00 Test Item Value Reference Range Interpretation Comments MPV (test code = MPV) 6.7 7.4-10.4 [facility] FallsVyudfdgSUPUBXABCB6021-09-90 17:32:00 Test Item Value Reference Range Interpretation Comments Platelet (test code = Platelet) 300 133-450 [facility] FallsFotaprlBDVKLUQMXJ7256-92-69 17:32:00 Test Item Value Reference Range Interpretation Comments Hct (test code = Hct) 31.2 36.0-48.0 [facility] FallsGyyducbYDTMJQUOGQ7210-91-95 17:32:00 Test Item Value Reference Range Interpretation Comments Hgb (test code = Hgb) 10.5 12.0-16.0 [facility] FallsLwncpumAIADNJGMRY5370-23-18 17:32:00 Test Item Value Reference Range Interpretation Comments MCV (test code = MCV) 84.5 80.0-98.0 [facility] FallsDhtzhyoXTLXZHTUHJ3242-77-52 17:32:00 Test Item Value Reference Range Interpretation Comments MCHC (test code = MCHC) 33.6 32.0-36.0 [facility] FallsVtkmonkRBNVWZTCLI9231-60-84 17:32:00 Test Item Value Reference Range Interpretation Comments MCH (test code = MCH) 28.4 pg 27.0-31.0 [facility] FallsMusvtibNZVVDGCIPR1341-08-03 17:32:00 Test Item Value Reference Range Interpretation Comments RDW (test code = RDW) 13.5 11.5-14.5 [facility] FallsPredubsQUGLFWHLSW2593-65-93 17:32:00 Test Item Value Reference Range Interpretation Comments WBC (test code = WBC) 6.0 3.7-10.4 [facility] FallsIfyfcudUHFXGTYRXA5590-04-94 17:32:00 Test Item Value Reference Range Interpretation Comments RBC (test code = RBC) 3.69 4.20-5.40 [facility] [id number] 11:02:00 Test Item Value Reference Range Interpretation Comments Antibody Scrn (test Negative (04/01/16 6:02 code = Antibody Scrn) AM) [facility] [id number] 11:02:00 Test Item Value Reference Range Interpretation Comments ABO/Rh (test code = ABO/Rh) A POS [facility] [id number] 11:02:00 Test Item Value Reference Range Interpretation Comments Antibody Scrn (test Negative (04/01/16 6:02 code = Antibody Scrn) AM) [facility] [id number] 11:02:00 Test Item Value Reference Range Interpretation Comments ABO/Rh (test code = ABO/Rh) A [facility] [id number] 11:02:00 Test Item Value Reference Range Interpretation Comments Antibody Scrn (test Negative (04/01/16 6:02 code = Antibody Scrn) AM) [facility] [id number] 11:02:00 Test Item Value Reference Range Interpretation Comments ABO/Rh (test code = ABO/Rh) A [facility] [id number] 11:02:00 Test Item Value Reference Range Interpretation Comments Antibody Scrn (test Negative (04/01/16 6:02 code = Antibody Scrn) AM) [facility] [id number] 11:02:00 Test Item Value Reference Range Interpretation Comments ABO/Rh (test code = ABO/Rh) A [facility] [id number] 11:02:00 Test Item Value Reference Range Interpretation Comments Antibody Scrn (test Negative (04/01/16 6:02 code = Antibody Scrn) AM) [facility] [id number] 11:02:00 Test Item Value Reference Range Interpretation Comments ABO/Rh (test code = ABO/Rh) A [facility] [id number] 11:02:00 Test Item Value Reference Range Interpretation Comments Antibody Scrn (test Negative (04/01/16 6:02 code = Antibody Scrn) AM) [facility] [id number] 11:02:00 Test Item Value Reference Range Interpretation Comments ABO/Rh (test code = ABO/Rh) A [facility] [employer] [id number] 21:25:00 Test Item Value Reference Range Interpretation Comments Albumin Lvl (test code = Albumin Lvl) 3.5 3.5-5.0 [facility] [employer] [id number] 21:25:00 Test Item Value Reference Range Interpretation Comments ALT (test code = ALT) 28 See_Comment [Auto mated message] The system which ge nerated this result transmit james reference range : <=65. The reference range was not used to interpr et this result as mary l/abnormal. [facility]2016-09-26 21:25:00 Test Item Value Reference Range Interpretation Comments AST (test code = AST) 22 See_Comment [Auto mated message] The system which ge nerated this result transmit james reference range : <=37. The reference range was not used to interpr et this result as mary l/abnormal. [facility]2016-09-26 21:25:00 Test Item Value Reference Range Interpretation Comments Total Protein (test code = Total 6.2 6.4-8.4 Protein) [facility]2016-09-26 21:25:00 Test Item Value Reference Range Interpretation Comments Alk Phos (test code = Alk Phos) 37 39-136 [facility]2016-09-26 21:25:00 Test Item Value Reference Range Interpretation Comments Bili Total (test code = Bili Total) 0.5 0.2-1.3 [facility]2016-09-26 21:25:00 Test Item Value Reference Range Interpretation Comments Globulin (test code = Globulin) 2.7 2.7-4.2 [facility]2016-09-26 21:25:00 Test Item Value Reference Range Interpretation Comments A/G Ratio (test code = A/G Ratio) 1.3 0.7-1.6 [facility]2016-09-26 21:25:00 Test Item Value Reference Range Interpretation Comments B/C Ratio (test code = B/C Ratio) 30 6-25 [facility] FallsLfxdxjqDZWABBOYEX4408-62-27 21:25:00 Test Item Value Reference Range Interpretation Comments Segs-Bands # (test code = Segs-Bands #) 4.3 1.5-8.1 [facility] FallsUzijhclTUEBECQDRN9577-65-58 21:25:00 Test Item Value Reference Range Interpretation Comments Monocytes # (test code 0.7 See_Comment [Aut omated message] The = Monocytes #) system which generated this result tra nsmitted reference range : <=0.8. The reference r malinda was not used to int erpret this result as normal/abnormal . [facility] FallsUxlcsqnMPEULHKSHX1995-56-69 21:25:00 Test Item Value Reference Range Interpretation Comments Lymphocytes # (test code = Lymphocytes 1.3 1.0-5.5 #) [facility] FallsScxjwidDVPSRORYQC8032-82-28 21:25:00 Test Item Value Reference Range Interpretation Comments Basophils # (test code 0.1 See_Comment [Aut omated message] The = Basophils #) system which generated this result tra nsmitted reference range : <=0.2. The reference r malinda was not used to int erpret this result as normal/abnormal . [facility] FallsTukujvhZSFHCALIIC6659-99-34 21:25:00 Test Item Value Reference Range Interpretation Comments Eosinophils # (test code 1.1 See_Comment [A utomated message] The = Eosinophils #) system whic h generated this result tra nsmitted reference range : <=0.5. The reference r malinda was not used to int erpret this result as normal/abnormal . [facility] FallsUfofxkwXASGHEQAZK1881-65-97 21:25:00 Test Item Value Reference Range Interpretation Comments Segs (test code = Segs) 57.3 45.0-75.0 [facility] FallsXoqywbwFGFEYMHVPD0396-12-82 21:25:00 Test Item Value Reference Range Interpretation Comments Lymphocytes (test code = Lymphocytes) 16.9 20.0-40.0 [facility] FallsVlzdqhaMNJBYLLEWS5170-43-54 21:25:00 Test Item Value Reference Range Interpretation Comments Eosinophils (test code = 14.8 See_Comment [A utomated message] The Eosinophils) system which ge nerated this result tra nsmitted reference range : <=4.0. The reference r malinda was not used to int erpret this result as normal/abnormal . [facility] FallsFecjjpjMAEHZJHJHJ6985-19-88 21:25:00 Test Item Value Reference Range Interpretation Comments Basophils (test code = 1.4 See_Comment [Aut omated message] The Basophils) system which ge nerated this result tra nsmitted reference range : <=1.0. The reference r malinda was not used to int erpret this result as normal/abnormal . [facility] FallsXgayfnsSPOFULTCUP6179-11-00 21:25:00 Test Item Value Reference Range Interpretation Comments Monocytes (test code = Monocytes) 9.6 2.0-12.0 [facility] FallsRzkfdmvWQBRMZJOGF4620-47-89 21:25:00 Test Item Value Reference Range Interpretation Comments Ly30 (test code = 8.9 See_Comment [Automate d message] The Ly30) system which ge nerated this result transmit james reference range : <=7.5. The reference range was not used to interpr et this result as mary l/abnormal. [facility] FallsPmmnydsEVPHUEYOXF4652-21-25 21:25:00 Test Item Value Reference Range Interpretation Comments G-value (test code = G-value) 13.2 4.5-11.0 [facility] FallsTbzucooVAIKNSFQVE5638-83-90 21:25:00 Test Item Value Reference Range Interpretation Comments TEG Data (test code = See Note (03/28/16 4:25 TEG Data) PM) [place] [id number] 21:25:00 Test Item Value Reference Range Interpretation Comments Coag Index (test code 4.2 See_Comment [Auto mated message] The = Coag Index) system which g enerated this result transmit james reference range : <=3.0. The reference range was not used to interpr et this result as mary l/abnormal. [facility] FallsFhpfcfzVIBCSGMUIF8861-35-98 21:25:00 Test Item Value Reference Range Interpretation Comments Angle (test code = Angle) 76.9 degrees 53.0-72.0 [facility] FallsTdpehbnTRAVKEDPAR3554-97-04 21:25:00 Test Item Value Reference Range Interpretation Comments R-time (test code = R-time) 3.7 min 5.0-10.0 [facility] FallsUfgcnucWFLFDCTTTH6888-48-88 21:25:00 Test Item Value Reference Range Interpretation Comments Max Amp (test code = Max Amp) 72.5 mm 50.0-70.0 [facility] FallsGgtnfnqAFMURKTKUP0178-94-64 21:25:00 Test Item Value Reference Range Interpretation Comments K-time (test code = K-time) 0.8 min 1.0-3.0 [facility] FallsLieeosaGUJBICHFCW0784-83-68 21:25:00 Test Item Value Reference Range Interpretation [...] DIC with DIC panel may be indicated. CPT:35595 [facility] SurgeryQpithapHPOCQRZISW0626-65-89 21:25:00 Test Item Value Reference Range Interpretation Comments Hgb (test code = Hgb) 11.8 12.0-16.0 [facility] SurgeryMtclcpgPFFVMHXWDY7115-59-72 21:25:00 Test Item Value Reference Range Interpretation Comments Hct (test code = Hct) 35.6 36.0-48.0 [facility] SurgeryJknvxjoFKUUUIUQAT0984-59-21 21:25:00 Test Item Value Reference Range Interpretation Comments MCHC (test code = MCHC) 33.3 32.0-36.0 [facility] FallsSjpgazvZZHGGQVFEE1726-27-25 21:25:00 Test Item Value Reference Range Interpretation Comments MPV (test code = MPV) 7.6 7.4-10.4 [facility] FallsJgrtebnHGCXRPYJBE1003-24-75 21:25:00 Test Item Value Reference Range Interpretation Comments RDW (test code = RDW) 13.7 11.5-14.5 [facility] FallsSujesxvXQVFWUDVIS3371-29-04 21:25:00 Test Item Value Reference Range Interpretation Comments Platelet (test code = Platelet) 298 133-450 [facility] FallsNiaflcfOCMAZGXXEC3607-59-07 21:25:00 Test Item Value Reference Range Interpretation Comments MCV (test code = MCV) 85.0 80.0-98.0 [facility] FallsTdjzxwcSSTFNRVBMK5013-22-76 21:25:00 Test Item Value Reference Range Interpretation Comments MCH (test code = MCH) 28.3 pg 27.0-31.0 [facility] SurgeryMdjtphaEGOJRHAPDE7032-07-12 21:25:00 Test Item Value Reference Range Interpretation Comments WBC (test code = WBC) 7.5 3.7-10.4 [facility] SurgeryAztdadwFXVKYXEVRZ9400-15-58 21:25:00 Test Item Value Reference Range Interpretation Comments RBC (test code = RBC) 4.18 4.20-5.40 [facility] LVDLLELAZ4155-68-31 21:25:00 Test Item Value Reference Range Interpretation Comments Hgb A1C (test code = Hgb A1C) 5.2 [facility]CHE[facility] KOFDJ0441-68-88 21:25:00 Test Item Value Reference Range Interpretation Comments Albumin Lvl (test code = Albumin Lvl) 3.5 3.5-5.0 [facility]2016-09-26 21:25:00 Test Item Value Reference Range Interpretation Comments ALT (test code = ALT) 28 See_Comment [Auto mated message] The system which ge nerated this result transmit james reference range : <=65. The reference range was not used to interpr et this result as mary l/abnormal. [facility]2016-09-26 21:25:00 Test Item Value Reference Range Interpretation Comments AST (test code = AST) 22 See_Comment [Auto mated message] The system which ge nerated this result transmit james reference range : <=37. The reference range was not used to interpr et this result as mary l/abnormal. [facility]2016-09-26 21:25:00 Test Item Value Reference Range Interpretation Comments Total Protein (test code = Total 6.2 6.4-8.4 Protein) [facility]2016-09-26 21:25:00 Test Item Value Reference Range Interpretation Comments Alk Phos (test code = Alk Phos) 37 39-136 [facility]2016-09-26 21:25:00 Test Item Value Reference Range Interpretation Comments Bili Total (test code = Bili Total) 0.5 0.2-1.3 [facility]2016-09-26 21:25:00 Test Item Value Reference Range Interpretation Comments Globulin (test code = Globulin) 2.7 2.7-4.2 [facility]2016-09-26 21:25:00 Test Item Value Reference Range Interpretation Comments A/G Ratio (test code = A/G Ratio) 1.3 0.7-1.6 [facility]2016-09-26 21:25:00 Test Item Value Reference Range Interpretation Comments B/C Ratio (test code = B/C Ratio) 30 6-25 [facility] FallsVacdlpuLZJGPZKVQC6023-96-13 21:25:00 Test Item Value Reference Range Interpretation Comments Segs-Bands # (test code = Segs-Bands #) 4.3 1.5-8.1 [facility] FallsDqydyrbVKQPNSYVFF4321-57-58 21:25:00 Test Item Value Reference Range Interpretation Comments Monocytes # (test code 0.7 See_Comment [Aut omated message] The = Monocytes #) system which generated this result tra nsmitted reference range : <=0.8. The reference r malinda was not used to int erpret this result as normal/abnormal . [facility] FallsKidlbsjBKPAJPYXLD7094-58-04 21:25:00 Test Item Value Reference Range Interpretation Comments Lymphocytes # (test code = Lymphocytes 1.3 1.0-5.5 #) [facility] FallsNgktnwwVGCPVICKFL1316-13-42 21:25:00 Test Item Value Reference Range Interpretation Comments Basophils # (test code 0.1 See_Comment [Aut omated message] The = Basophils #) system which generated this result tra nsmitted reference range : <=0.2. The reference r malinda was not used to int erpret this result as normal/abnormal . [facility] FallsCdyeubvSAIEXFAUAC3025-43-37 21:25:00 Test Item Value Reference Range Interpretation Comments Eosinophils # (test code 1.1 See_Comment [A utomated message] The = Eosinophils #) system whic h generated this result tra nsmitted reference range : <=0.5. The reference r malinda was not used to int erpret this result as normal/abnormal . [facility] FallsIolelxrWRRZNUQFBB7343-12-15 21:25:00 Test Item Value Reference Range Interpretation Comments Segs (test code = Segs) 57.3 45.0-75.0 [facility] FallsOxxgsutXSMICZVJYN2226-37-03 21:25:00 Test Item Value Reference Range Interpretation Comments Lymphocytes (test code = Lymphocytes) 16.9 20.0-40.0 [facility] FallsEvrbrtoWZQVQFHBXS1095-27-22 21:25:00 Test Item Value Reference Range Interpretation Comments Eosinophils (test code = 14.8 See_Comment [A utomated message] The Eosinophils) system which ge nerated this result tra nsmitted reference range : <=4.0. The reference r malinda was not used to int erpret this result as normal/abnormal . [facility] FallsQrqnjjcTHKYHHJUZK4841-79-96 21:25:00 Test Item Value Reference Range Interpretation Comments Basophils (test code = 1.4 See_Comment [Aut omated message] The Basophils) system which ge nerated this result tra nsmitted reference range : <=1.0. The reference r malinda was not used to int erpret this result as normal/abnormal . [facility] FallsKodhwqfZHDXPJZZJV4034-35-90 21:25:00 Test Item Value Reference Range Interpretation Comments Monocytes (test code = Monocytes) 9.6 2.0-12.0 [facility] FallsIfuyvufEQBGRQFRUG2489-36-89 21:25:00 Test Item Value Reference Range Interpretation Comments Ly30 (test code = 8.9 See_Comment [Automate d message] The Ly30) system which ge nerated this result transmit james reference range : <=7.5. The reference range was not used to interpr et this result as mary l/abnormal. [facility] FallsCsazgojWCUHYCILWL2785-28-09 21:25:00 Test Item Value Reference Range Interpretation Comments G-value (test code = G-value) 13.2 4.5-11.0 [facility] FallsLtyskrkSUEQIKNBEV1831-78-12 21:25:00 Test Item Value Reference Range Interpretation Comments TEG Data (test code = See Note (03/28/16 4:25 TEG Data) PM) [facility] FallsTbdhsfvXEFOAFAGLQ5927-17-02 21:25:00 Test Item Value Reference Range Interpretation Comments Coag Index (test code 4.2 See_Comment [Auto mated message] The = Coag Index) system which g enerated this result transmit james reference range : <=3.0. The reference range was not used to interpr et this result as mary l/abnormal. [facility] FallsHlibkcqRSUVEYRSYC2133-79-97 21:25:00 Test Item Value Reference Range Interpretation Comments Angle (test code = Angle) 76.9 degrees 53.0-72.0 [facility] FallsFlrssmvDSSHYYPOWI6199-47-15 21:25:00 Test Item Value Reference Range Interpretation Comments R-time (test code = R-time) 3.7 min 5.0-10.0 [facility] FallsMycnqxvLBQLTRCZDJ3202-20-76 21:25:00 Test Item Value Reference Range Interpretation Comments Max Amp (test code = Max Amp) 72.5 mm 50.0-70.0 [facility] FallsXtnvoruKRJEGBIXQB0347-80-19 21:25:00 Test Item Value Reference Range Interpretation Comments K-time (test code = K-time) 0.8 min 1.0-3.0 [facility] FallsCnizrpwMXRXKGUMCA3611-58-87 21:25:00 Test Item Value Reference Range Interpretation [...] DIC with DIC panel may be indicated. CPT:72881 [facility] FallsIjccpkcKSSCGPNFMG5162-51-46 21:25:00 Test Item Value Reference Range Interpretation Comments Hgb (test code = Hgb) 11.8 12.0-16.0 [facility] FallsAdlncomEJSEMGABER4179-04-96 21:25:00 Test Item Value Reference Range Interpretation Comments Hct (test code = Hct) 35.6 36.0-48.0 [facility] FallsEudpfkqBSDZUBDKNL1004-24-25 21:25:00 Test Item Value Reference Range Interpretation Comments MCHC (test code = MCHC) 33.3 32.0-36.0 [facility] FallsJfhktmeOATVSDRGKX7624-51-26 21:25:00 Test Item Value Reference Range Interpretation Comments MPV (test code = MPV) 7.6 7.4-10.4 [facility] FallsNkvqgymAEMNUVSBED1473-10-19 21:25:00 Test Item Value Reference Range Interpretation Comments RDW (test code = RDW) 13.7 11.5-14.5 [facility] FallsZrlgpkkXXJUHRFKEG6081-89-94 21:25:00 Test Item Value Reference Range Interpretation Comments Platelet (test code = Platelet) 298 133-450 [facility] FallsAdggtovESHDLVRZMI5059-14-99 21:25:00 Test Item Value Reference Range Interpretation Comments MCV (test code = MCV) 85.0 80.0-98.0 [facility] FallsYkckmkvLDBXNSOHEF7388-72-05 21:25:00 Test Item Value Reference Range Interpretation Comments MCH (test code = MCH) 28.3 pg 27.0-31.0 [facility] FallsFomglbyGMOFZYFJBB1046-74-33 21:25:00 Test Item Value Reference Range Interpretation Comments WBC (test code = WBC) 7.5 3.7-10.4 [facility] FallsJvorfsoHLSPSQYUBH7140-72-89 21:25:00 Test Item Value Reference Range Interpretation Comments RBC (test code = RBC) 4.18 4.20-5.40 [facility] MUJEOMSQX8183-71-33 21:25:00 Test Item Value Reference Range Interpretation Comments Hgb A1C (test code = Hgb A1C) 5.2 [facility]2016-09-26 21:25:00 Test Item Value Reference Range Interpretation Comments Albumin Lvl (test code = Albumin Lvl) 3.5 3.5-5.0 [facility]2016-09-26 21:25:00 Test Item Value Reference Range Interpretation Comments ALT (test code = ALT) 28 See_Comment [Auto mated message] The system which ge nerated this result transmit james reference range : <=65. The reference range was not used to interpr et this result as mary l/abnormal. [facility]2016-09-26 21:25:00 Test Item Value Reference Range Interpretation Comments AST (test code = AST) 22 See_Comment [Auto mated message] The system which ge nerated this result transmit james reference range : <=37. The reference range was not used to interpr et this result as mary l/abnormal. [facility]2016-09-26 21:25:00 Test Item Value Reference Range Interpretation Comments Total Protein (test code = Total 6.2 6.4-8.4 Protein) [facility]2016-09-26 21:25:00 Test Item Value Reference Range Interpretation Comments Alk Phos (test code = Alk Phos) 37 39-136 [facility]2016-09-26 21:25:00 Test Item Value Reference Range Interpretation Comments Bili Total (test code = Bili Total) 0.5 0.2-1.3 [facility]2016-09-26 21:25:00 Test Item Value Reference Range Interpretation Comments Globulin (test code = Globulin) 2.7 2.7-4.2 [place] 747326-09-26 21:25:00 Test Item Value Reference Range Interpretation Comments A/G Ratio (test code = A/G Ratio) 1.3 0.7-1.6 [facility]2016-09-26 21:25:00 Test Item Value Reference Range Interpretation Comments B/C Ratio (test code = B/C Ratio) 30 6-25 [facility] FallsKifbpagAEOYWKKSYK5004-14-05 21:25:00 Test Item Value Reference Range Interpretation Comments Segs-Bands # (test code = Segs-Bands #) 4.3 1.5-8.1 [facility] FallsTstavjmITQVBONJMV5717-92-78 21:25:00 Test Item Value Reference Range Interpretation Comments Monocytes # (test code 0.7 See_Comment [Aut omated message] The = Monocytes #) system which generated this result tra nsmitted reference range : <=0.8. The reference r malinda was not used to int erpret this result as normal/abnormal . [facility] FallsVdiypqjXJBVWCDXBZ2910-65-53 21:25:00 Test Item Value Reference Range Interpretation Comments Lymphocytes # (test code = Lymphocytes 1.3 1.0-5.5 #) [facility] FallsRpvwoymOLPDNHJCAI5514-11-55 21:25:00 Test Item Value Reference Range Interpretation Comments Basophils # (test code 0.1 See_Comment [Aut omated message] The = Basophils #) system which generated this result tra nsmitted reference range : <=0.2. The reference r malinda was not used to int erpret this result as normal/abnormal . [facility] FallsNdedyipEHPQFTXVPF3063-03-81 21:25:00 Test Item Value Reference Range Interpretation Comments Eosinophils # (test code 1.1 See_Comment [A utomated message] The = Eosinophils #) system whic h generated this result tra nsmitted reference range : <=0.5. The reference r malinda was not used to int erpret this result as normal/abnormal . [facility] FallsIolbcvpDSPMZYWTJR5820-07-59 21:25:00 Test Item Value Reference Range Interpretation Comments Segs (test code = Segs) 57.3 45.0-75.0 [facility] FallsDafjxpnPJZXSPUZWD3270-62-47 21:25:00 Test Item Value Reference Range Interpretation Comments Lymphocytes (test code = Lymphocytes) 16.9 20.0-40.0 [facility] FallsRbousbpJOXCPDCUJE3998-40-03 21:25:00 Test Item Value Reference Range Interpretation Comments Eosinophils (test code = 14.8 See_Comment [A utomated message] The Eosinophils) system which ge nerated this result tra nsmitted reference range : <=4.0. The reference r malinda was not used to int erpret this result as normal/abnormal . [facility] FallsNsfuaafPISGVUGKHK4283-46-17 21:25:00 Test Item Value Reference Range Interpretation Comments Basophils (test code = 1.4 See_Comment [Aut omated message] The Basophils) system which ge nerated this result tra nsmitted reference range : <=1.0. The reference r malinda was not used to int erpret this result as normal/abnormal . [facility] FallsKqbzjntXEAYPGRCNC2224-11-30 21:25:00 Test Item Value Reference Range Interpretation Comments Monocytes (test code = Monocytes) 9.6 2.0-12.0 [facility] FallsWfduveqRGXTZFXOMI5055-08-21 21:25:00 Test Item Value Reference Range Interpretation Comments Ly30 (test code = 8.9 See_Comment [Automate d message] The Ly30) system which ge nerated this result transmit james reference range : <=7.5. The reference range was not used to interpr et this result as mary l/abnormal. [facility] FallsQbphsrtOMYTZMIQBW2810-68-75 21:25:00 Test Item Value Reference Range Interpretation Comments G-value (test code = G-value) 13.2 4.5-11.0 [facility] FallsKhcddliCBLURARUSZ2262-81-82 21:25:00 Test Item Value Reference Range Interpretation Comments TEG Data (test code = See Note (03/28/16 4:25 TEG Data) PM) [facility] FallsFexiqfdCJTNBRITWR0440-71-20 21:25:00 Test Item Value Reference Range Interpretation Comments Coag Index (test code 4.2 See_Comment [Auto mated message] The = Coag Index) system which g enerated this result transmit james reference range : <=3.0. The reference range was not used to interpr et this result as mary l/abnormal. [facility] FallsTrdtlvhJZAAHMMFQU2329-21-90 21:25:00 Test Item Value Reference Range Interpretation Comments Angle (test code = Angle) 76.9 degrees 53.0-72.0 [facility] FallsOjwfauxNFHYTMEGFU9254-97-00 21:25:00 Test Item Value Reference Range Interpretation Comments R-time (test code = R-time) 3.7 min 5.0-10.0 [facility] FallsAhdjgokRXRODBRAUC9393-41-72 21:25:00 Test Item Value Reference Range Interpretation Comments Max Amp (test code = Max Amp) 72.5 mm 50.0-70.0 [facility] FallsAasvucuBUFNOQSUVJ8305-91-39 21:25:00 Test Item Value Reference Range Interpretation Comments K-time (test code = K-time) 0.8 min 1.0-3.0 [facility] FallsFkjtpxxBCFKOMYQXG3411-61-57 21:25:00 Test Item Value Reference Range Interpretation [...] DIC with DIC panel may be indicated. CPT:91276 [facility] FallsDoiwsctESAAUGZXIU9612-30-26 21:25:00 Test Item Value Reference Range Interpretation Comments Hgb (test code = Hgb) 11.8 12.0-16.0 [facility] FallsXivkfdyMVROMWCCHO9388-54-11 21:25:00 Test Item Value Reference Range Interpretation Comments Hct (test code = Hct) 35.6 36.0-48.0 [facility] FallsYejntshHEWEIXKJAE6445-79-27 21:25:00 Test Item Value Reference Range Interpretation Comments MCHC (test code = MCHC) 33.3 32.0-36.0 [facility] FallsJffvjrhNJNHZJNYUA5162-24-26 21:25:00 Test Item Value Reference Range Interpretation Comments MPV (test code = MPV) 7.6 7.4-10.4 [facility] FallsRdehikwYIUTJHQMCJ8816-89-35 21:25:00 Test Item Value Reference Range Interpretation Comments RDW (test code = RDW) 13.7 11.5-14.5 [facility] FallsGrwyxzcEHHDDCEANM0230-13-74 21:25:00 Test Item Value Reference Range Interpretation Comments Platelet (test code = Platelet) 298 133-450 [facility] FallsNsifpjxJYPZLBAQQN9537-94-30 21:25:00 Test Item Value Reference Range Interpretation Comments MCV (test code = MCV) 85.0 80.0-98.0 [facility] FallsFpwthyjVIRZQYSRDL7453-87-10 21:25:00 Test Item Value Reference Range Interpretation Comments MCH (test code = MCH) 28.3 pg 27.0-31.0 [facility] FallsRsbmlgjPHDDKQFWNW6619-39-81 21:25:00 Test Item Value Reference Range Interpretation Comments WBC (test code = WBC) 7.5 3.7-10.4 [facility] SurgeryZhslroiBIQIWVFFZX5156-95-47 21:25:00 Test Item Value Reference Range Interpretation Comments RBC (test code = RBC) 4.18 4.20-5.40 [facility] PBUPNVQAJ6716-64-13 21:25:00 Test Item Value Reference Range Interpretation Comments Hgb A1C (test code = Hgb A1C) 5.2 [facility]2016-09-26 21:25:00 Test Item Value Reference Range Interpretation Comments Albumin Lvl (test code = Albumin Lvl) 3.5 3.5-5.0 [facility]2016-09-26 21:25:00 Test Item Value Reference Range Interpretation Comments ALT (test code = ALT) 28 See_Comment [Auto mated message] The system which ge nerated this result transmit james reference range : <=65. The reference range was not used to interpr et this result as mary l/abnormal. [facility]2016-09-26 21:25:00 Test Item Value Reference Range Interpretation Comments AST (test code = AST) 22 See_Comment [Auto mated message] The system which ge nerated this result transmit james reference range : <=37. The reference range was not used to interpr et this result as mary l/abnormal. [facility]2016-09-26 21:25:00 Test Item Value Reference Range Interpretation Comments Total Protein (test code = Total 6.2 6.4-8.4 Protein) [facility]2016-09-26 21:25:00 Test Item Value Reference Range Interpretation Comments Alk Phos (test code = Alk Phos) 37 39-136 [facility]2016-09-26 21:25:00 Test Item Value Reference Range Interpretation Comments Bili Total (test code = Bili Total) 0.5 0.2-1.3 [facility]2016-09-26 21:25:00 Test Item Value Reference Range Interpretation Comments Globulin (test code = Globulin) 2.7 2.7-4.2 [facility]2016-09-26 21:25:00 Test Item Value Reference Range Interpretation Comments A/G Ratio (test code = A/G Ratio) 1.3 0.7-1.6 [facility]2016-09-26 21:25:00 Test Item Value Reference Range Interpretation Comments B/C Ratio (test code = B/C Ratio) 30 6-25 [facility] FallsYprmvxzDGVIPYEMIK8324-55-30 21:25:00 Test Item Value Reference Range Interpretation Comments Segs-Bands # (test code = Segs-Bands #) 4.3 1.5-8.1 [facility] FallsZdeyqkmODFMJFHXOE8613-33-31 21:25:00 Test Item Value Reference Range Interpretation Comments Monocytes # (test code 0.7 See_Comment [Aut omated message] The = Monocytes #) system which generated this result tra nsmitted reference range : <=0.8. The reference r malinda was not used to int erpret this result as normal/abnormal . [facility] FallsFxdivmdFHJCHNZGZF7669-88-93 21:25:00 Test Item Value Reference Range Interpretation Comments Lymphocytes # (test code = Lymphocytes 1.3 1.0-5.5 #) [facility] FallsJwtzebvFHEFZLHMWI1109-28-08 21:25:00 Test Item Value Reference Range Interpretation Comments Basophils # (test code 0.1 See_Comment [Aut omated message] The = Basophils #) system which generated this result tra nsmitted reference range : <=0.2. The reference r malinda was not used to int erpret this result as normal/abnormal . [facility] FallsSmbzffgVVTBGQNRGV7950-44-73 21:25:00 Test Item Value Reference Range Interpretation Comments Eosinophils # (test code 1.1 See_Comment [A utomated message] The = Eosinophils #) system whic h generated this result tra nsmitted reference range : <=0.5. The reference r malinda was not used to int erpret this result as normal/abnormal . [facility] FallsFuxianeYKSLWKVMMV0978-11-24 21:25:00 Test Item Value Reference Range Interpretation Comments Segs (test code = Segs) 57.3 45.0-75.0 [facility] FallsHphkodyTQQNBHNCRU1323-99-44 21:25:00 Test Item Value Reference Range Interpretation Comments Lymphocytes (test code = Lymphocytes) 16.9 20.0-40.0 [facility] FallsNxbntxrHSIRUNFIPU8389-24-72 21:25:00 Test Item Value Reference Range Interpretation Comments Eosinophils (test code = 14.8 See_Comment [A utomated message] The Eosinophils) system which ge nerated this result tra nsmitted reference range : <=4.0. The reference r malinda was not used to int erpret this result as normal/abnormal . [facility] FallsEfocxwhDAGRCVSEQR6306-40-58 21:25:00 Test Item Value Reference Range Interpretation Comments Basophils (test code = 1.4 See_Comment [Aut omated message] The Basophils) system which ge nerated this result tra nsmitted reference range : <=1.0. The reference r malinda was not used to int erpret this result as normal/abnormal . [facility] FallsVsioteyKBJQSJWYMP3040-55-39 21:25:00 Test Item Value Reference Range Interpretation Comments Monocytes (test code = Monocytes) 9.6 2.0-12.0 [facility] FallsEpwjrenSJTZQCCKQZ4965-62-49 21:25:00 Test Item Value Reference Range Interpretation Comments Ly30 (test code = 8.9 See_Comment [Automate d message] The Ly30) system which ge nerated this result transmit james reference range : <=7.5. The reference range was not used to interpr et this result as mary l/abnormal. [facility] FallsMdyixrnGSSNUGOLAE8503-37-76 21:25:00 Test Item Value Reference Range Interpretation Comments G-value (test code = G-value) 13.2 4.5-11.0 [facility] FallsKradxccBEHLDLRHXC2534-11-77 21:25:00 Test Item Value Reference Range Interpretation Comments TEG Data (test code = See Note (03/28/16 4:25 TEG Data) PM) [facility] FallsVcdtvqcYKKNHTMFYN0916-19-68 21:25:00 Test Item Value Reference Range Interpretation Comments Coag Index (test code 4.2 See_Comment [Auto mated message] The = Coag Index) system which g enerated this result transmit james reference range : <=3.0. The reference range was not used to interpr et this result as mary l/abnormal. [facility] FallsIgrzybpAKJWORQIYM6218-45-30 21:25:00 Test Item Value Reference Range Interpretation Comments Angle (test code = Angle) 76.9 degrees 53.0-72.0 [facility] FallsDcftdzwCCTTNBJPAL4520-84-19 21:25:00 Test Item Value Reference Range Interpretation Comments R-time (test code = R-time) 3.7 min 5.0-10.0 [facility] FallsQqvklpdKGTJTBLGHO3897-93-61 21:25:00 Test Item Value Reference Range Interpretation Comments Max Amp (test code = Max Amp) 72.5 mm 50.0-70.0 [facility] FallsHvlbpocUQFQYTOSQY4756-80-51 21:25:00 Test Item Value Reference Range Interpretation Comments K-time (test code = K-time) 0.8 min 1.0-3.0 [facility] FallsRlohoyuMLFKVWEQFC1274-43-33 21:25:00 Test Item Value Reference Range Interpretation [...] DIC with DIC panel may be indicated. CPT:42698 [facility] FallsZujmrriWMMNJZXIKH9809-84-16 21:25:00 Test Item Value Reference Range Interpretation Comments Hgb (test code = Hgb) 11.8 12.0-16.0 [facility] FallsCohtraeHVXODPBRWI1217-03-68 21:25:00 Test Item Value Reference Range Interpretation Comments Hct (test code = Hct) 35.6 36.0-48.0 [facility] FallsIuyezvqJQVQESLXTY4933-44-28 21:25:00 Test Item Value Reference Range Interpretation Comments MCHC (test code = MCHC) 33.3 32.0-36.0 [facility] FallsKbsgyzsQXSBWFZXQR1104-32-35 21:25:00 Test Item Value Reference Range Interpretation Comments MPV (test code = MPV) 7.6 7.4-10.4 [facility] FallsAvyfeklJYJCDVSGLI4975-00-47 21:25:00 Test Item Value Reference Range Interpretation Comments RDW (test code = RDW) 13.7 11.5-14.5 [facility] FallsOainlniIKKMYKZPRT8589-61-19 21:25:00 Test Item Value Reference Range Interpretation Comments Platelet (test code = Platelet) 298 133-450 [facility] FallsOawzfqqTTOQXMBIKP9509-62-24 21:25:00 Test Item Value Reference Range Interpretation Comments MCV (test code = MCV) 85.0 80.0-98.0 [facility] FallsGuexdwzOXAXYGYDBH9458-65-13 21:25:00 Test Item Value Reference Range Interpretation Comments MCH (test code = MCH) 28.3 pg 27.0-31.0 [facility]KqxjcyuMYKZXLEJJW1920-45-61 21:25:00 Test Item Value Reference Range Interpretation Comments WBC (test code = WBC) 7.5 3.7-10.4 [facility] SurgeryXskdcxcKPUALRREST9982-17-84 21:25:00 Test Item Value Reference Range Interpretation Comments RBC (test code = RBC) 4.18 4.20-5.40 [facility] PCIYOQCOM1352-14-05 21:25:00 Test Item Value Reference Range Interpretation Comments Hgb A1C (test code = Hgb A1C) 5.2 [facility]villeL[facility] [employer] GJOHK5814-80-13 21:25:00 Test Item Value Reference Range Interpretation Comments Albumin Lvl (test code = Albumin Lvl) 3.5 3.5-5.0 [facility]L[facility] [employer] [id number] 21:25:00 Test Item Value Reference Range Interpretation Comments ALT (test code = ALT) 28 See_Comment [Auto mated message] The system which ge nerated this result transmit james reference range : <=65. The reference range was not used to interpr et this result as mary l/abnormal. [facility] YQWVX3905-33-53 21:25:00 Test Item Value Reference Range Interpretation Comments AST (test code = AST) 22 See_Comment [Auto mated message] The system which ge nerated this result transmit james reference range : <=37. The reference range was not used to interpr et this result as mary l/abnormal. [facility] [employer] RZFGZ5891-05-46 21:25:00 Test Item Value Reference Range Interpretation Comments Total Protein (test code = Total 6.2 6.4-8.4 Protein) [facility] [id number] 21:25:00 Test Item Value Reference Range Interpretation Comments Alk Phos (test code = Alk Phos) 37 39-136 [facility] YOJKC2726-99-87 21:25:00 Test Item Value Reference Range Interpretation Comments Bili Total (test code = Bili Total) 0.5 0.2-1.3 [facility] [id number] 21:25:00 Test Item Value Reference Range Interpretation Comments Globulin (test code = Globulin) 2.7 2.7-4.2 [facility]2016-09-26 21:25:00 Test Item Value Reference Range Interpretation Comments A/G Ratio (test code = A/G Ratio) 1.3 0.7-1.6 [facility]2016-09-26 21:25:00 Test Item Value Reference Range Interpretation Comments B/C Ratio (test code = B/C Ratio) 30 6-25 [facility] FallsHpgzcbkWVJDMBUVQP3388-23-51 21:25:00 Test Item Value Reference Range Interpretation Comments Segs-Bands # (test code = Segs-Bands #) 4.3 1.5-8.1 [facility] FallsFngnvysKZHFNYPYNQ5899-76-10 21:25:00 Test Item Value Reference Range Interpretation Comments Monocytes # (test code 0.7 See_Comment [Aut omated message] The = Monocytes #) system which generated this result tra nsmitted reference range : <=0.8. The reference r malinda was not used to int erpret this result as normal/abnormal . [facility] FallsIwlbqkoAJUPXOSVFM8313-91-25 21:25:00 Test Item Value Reference Range Interpretation Comments Lymphocytes # (test code = Lymphocytes 1.3 1.0-5.5 #) [facility] FallsQzaimjuSWQSNQXBBZ9773-21-18 21:25:00 Test Item Value Reference Range Interpretation Comments Basophils # (test code 0.1 See_Comment [Aut omated message] The = Basophils #) system which generated this result tra nsmitted reference range : <=0.2. The reference r malinda was not used to int erpret this result as normal/abnormal . [facility] FallsImebcqtMFBALBPAQN9577-55-93 21:25:00 Test Item Value Reference Range Interpretation Comments Eosinophils # (test code 1.1 See_Comment [A utomated message] The = Eosinophils #) system whic h generated this result tra nsmitted reference range : <=0.5. The reference r malinda was not used to int erpret this result as normal/abnormal . [facility] FallsKttqdjiWBWJSOBOGG6772-54-62 21:25:00 Test Item Value Reference Range Interpretation Comments Segs (test code = Segs) 57.3 45.0-75.0 [facility] FallsLrbodgjLGGCCLNXXE5168-60-66 21:25:00 Test Item Value Reference Range Interpretation Comments Lymphocytes (test code = Lymphocytes) 16.9 20.0-40.0 [facility] FallsJjwsavyMJGQBTOAOT2175-21-42 21:25:00 Test Item Value Reference Range Interpretation Comments Eosinophils (test code = 14.8 See_Comment [A utomated message] The Eosinophils) system which ge nerated this result tra nsmitted reference range : <=4.0. The reference r malinda was not used to int erpret this result as normal/abnormal . [facility] FallsNmklnqoLRCYRWKCKK8097-56-33 21:25:00 Test Item Value Reference Range Interpretation Comments Basophils (test code = 1.4 See_Comment [Aut omated message] The Basophils) system which ge nerated this result tra nsmitted reference range : <=1.0. The reference r malinda was not used to int erpret this result as normal/abnormal . [facility] FallsCzijsizANKXQSXWLD3978-29-13 21:25:00 Test Item Value Reference Range Interpretation Comments Monocytes (test code = Monocytes) 9.6 2.0-12.0 [facility] FallsZezgnraNZTLBJMUYF9029-21-88 21:25:00 Test Item Value Reference Range Interpretation Comments Ly30 (test code = 8.9 See_Comment [Automate d message] The Ly30) system which ge nerated this result transmit james reference range : <=7.5. The reference range was not used to interpr et this result as mary l/abnormal. [facility] FallsAatwbipKBBXQXDBYQ8688-48-27 21:25:00 Test Item Value Reference Range Interpretation Comments G-value (test code = G-value) 13.2 4.5-11.0 [facility] FallsTciuxtfAEZLUYNZFX5049-03-85 21:25:00 Test Item Value Reference Range Interpretation Comments TEG Data (test code = See Note (03/28/16 4:25 TEG Data) PM) [facility] FallsNbnbszzNDLFILJEXX8214-23-01 21:25:00 Test Item Value Reference Range Interpretation Comments Coag Index (test code 4.2 See_Comment [Auto mated message] The = Coag Index) system which g enerated this result transmit james reference range : <=3.0. The reference range was not used to interpr et this result as mary l/abnormal. [facility] FallsHqtyksnIRLIWGOXQS6098-59-48 21:25:00 Test Item Value Reference Range Interpretation Comments Angle (test code = Angle) 76.9 degrees 53.0-72.0 [facility] FallsFyiirplCNWKIOSYRI0819-04-25 21:25:00 Test Item Value Reference Range Interpretation Comments R-time (test code = R-time) 3.7 min 5.0-10.0 [facility] FallsMozkysmEYQWEFVPJQ1045-16-66 21:25:00 Test Item Value Reference Range Interpretation Comments Max Amp (test code = Max Amp) 72.5 mm 50.0-70.0 [facility] FallsXhkvsvpMHAKCUBXOB0314-94-75 21:25:00 Test Item Value Reference Range Interpretation Comments K-time (test code = K-time) 0.8 min 1.0-3.0 [facility] FallsCmsowbfVWERHDYYMJ0984-76-86 21:25:00 Test Item Value Reference Range Interpretation [...] DIC with DIC panel may be indicated. CPT:80786 [facility] FallsOrcueanRQTJLEFPBR3701-76-56 21:25:00 Test Item Value Reference Range Interpretation Comments Hgb (test code = Hgb) 11.8 12.0-16.0 [facility] FallsNpugwecBBKIUXGIAE6431-96-08 21:25:00 Test Item Value Reference Range Interpretation Comments Hct (test code = Hct) 35.6 36.0-48.0 [facility] FallsEuvbzbdWQDRHJOGRP7152-17-71 21:25:00 Test Item Value Reference Range Interpretation Comments MCHC (test code = MCHC) 33.3 32.0-36.0 [facility] FallsMuvmwtjTQRMWZGOUW3122-55-61 21:25:00 Test Item Value Reference Range Interpretation Comments MPV (test code = MPV) 7.6 7.4-10.4 [facility] FallsLyzzdgeMZHBAHAABG8321-77-86 21:25:00 Test Item Value Reference Range Interpretation Comments RDW (test code = RDW) 13.7 11.5-14.5 [facility] FallsJnuiazkKQIUBKKFDW9105-63-78 21:25:00 Test Item Value Reference Range Interpretation Comments Platelet (test code = Platelet) 298 133-450 [facility] SurgeryWwhrgzeLZSJJUNFRA5279-45-75 21:25:00 Test Item Value Reference Range Interpretation Comments MCV (test code = MCV) 85.0 80.0-98.0 [facility] FallsBghswkiLQQEUTNOTE9648-32-01 21:25:00 Test Item Value Reference Range Interpretation Comments MCH (test code = MCH) 28.3 pg 27.0-31.0 [facility] FallsJmmsavbGQECFFWVVV5537-32-17 21:25:00 Test Item Value Reference Range Interpretation Comments WBC (test code = WBC) 7.5 3.7-10.4 [facility] SurgeryPpenfmbLFHNCOIFEP6903-69-96 21:25:00 Test Item Value Reference Range Interpretation Comments RBC (test code = RBC) 4.18 4.20-5.40 [facility] BGKOYKJOS9413-36-34 21:25:00 Test Item Value Reference Range Interpretation Comments Hgb A1C (test code = Hgb A1C) 5.2 [facility] [id number] 21:25:00 Test Item Value Reference Range Interpretation Comments Albumin Lvl (test code = Albumin Lvl) 3.5 3.5-5.0 [facility]2016-09-26 21:25:00 Test Item Value Reference Range Interpretation Comments ALT (test code = ALT) 28 See_Comment [Auto mated message] The system which ge nerated this result transmit james reference range : <=65. The reference range was not used to interpr et this result as mary l/abnormal. [facility]2016-09-26 21:25:00 Test Item Value Reference Range Interpretation Comments AST (test code = AST) 22 See_Comment [Auto mated message] The system which ge nerated this result transmit james reference range : <=37. The reference range was not used to interpr et this result as mary l/abnormal. [facility] [employer] [id number] 21:25:00 Test Item Value Reference Range Interpretation Comments Total Protein (test code = Total 6.2 6.4-8.4 Protein) [facility]2016-09-26 21:25:00 Test Item Value Reference Range Interpretation Comments Alk Phos (test code = Alk Phos) 37 39-136 [facility]2016-09-26 21:25:00 Test Item Value Reference Range Interpretation Comments Bili Total (test code = Bili Total) 0.5 0.2-1.3 [facility]2016-09-26 21:25:00 Test Item Value Reference Range Interpretation Comments Globulin (test code = Globulin) 2.7 2.7-4.2 [facility]2016-09-26 21:25:00 Test Item Value Reference Range Interpretation Comments A/G Ratio (test code = A/G Ratio) 1.3 0.7-1.6 [facility]2016-09-26 21:25:00 Test Item Value Reference Range Interpretation Comments B/C Ratio (test code = B/C Ratio) 30 6-25 [facility] FallsWczdjzkCCPYDMNJER6295-77-50 21:25:00 Test Item Value Reference Range Interpretation Comments Segs-Bands # (test code = Segs-Bands #) 4.3 1.5-8.1 [facility] FallsBtxvqinZERPGZQLNY6309-57-32 21:25:00 Test Item Value Reference Range Interpretation Comments Monocytes # (test code 0.7 See_Comment [Aut omated message] The = Monocytes #) system which generated this result tra nsmitted reference range : <=0.8. The reference r malinda was not used to int erpret this result as normal/abnormal . [facility] FallsThjelbgUNWUKPMZYR5470-61-90 21:25:00 Test Item Value Reference Range Interpretation Comments Lymphocytes # (test code = Lymphocytes 1.3 1.0-5.5 #) [facility] FallsTmnaudyZVRVNYFEZD0913-22-87 21:25:00 Test Item Value Reference Range Interpretation Comments Basophils # (test code 0.1 See_Comment [Aut omated message] The = Basophils #) system which generated this result tra nsmitted reference range : <=0.2. The reference r malinda was not used to int erpret this result as normal/abnormal . [facility] FallsVpgunsiRPIYMSBNLJ7241-28-05 21:25:00 Test Item Value Reference Range Interpretation Comments Eosinophils # (test code 1.1 See_Comment [A utomated message] The = Eosinophils #) system whic h generated this result tra nsmitted reference range : <=0.5. The reference r malinda was not used to int erpret this result as normal/abnormal . [facility] FallsTyewtkuTCWYTIKEFW7877-04-09 21:25:00 Test Item Value Reference Range Interpretation Comments Segs (test code = Segs) 57.3 45.0-75.0 [facility] FallsVumxsreYQDOBRCRHN5353-58-96 21:25:00 Test Item Value Reference Range Interpretation Comments Lymphocytes (test code = Lymphocytes) 16.9 20.0-40.0 [facility] FallsKedrvvdPMJEZXAMPG0933-36-40 21:25:00 Test Item Value Reference Range Interpretation Comments Eosinophils (test code = 14.8 See_Comment [A utomated message] The Eosinophils) system which ge nerated this result tra nsmitted reference range : <=4.0. The reference r malinda was not used to int erpret this result as normal/abnormal . [facility] FallsOcbeyylPJCBKFQMDQ5891-10-31 21:25:00 Test Item Value Reference Range Interpretation Comments Basophils (test code = 1.4 See_Comment [Aut omated message] The Basophils) system which ge nerated this result tra nsmitted reference range : <=1.0. The reference r malinda was not used to int erpret this result as normal/abnormal . [facility] FallsEmoftpoCPTUKWOKRL1336-62-85 21:25:00 Test Item Value Reference Range Interpretation Comments Monocytes (test code = Monocytes) 9.6 2.0-12.0 [facility] FallsSkavsomEHBUXAARQE1940-72-08 21:25:00 Test Item Value Reference Range Interpretation Comments Ly30 (test code = 8.9 See_Comment [Automate d message] The Ly30) system which ge nerated this result transmit james reference range : <=7.5. The reference range was not used to interpr et this result as mary l/abnormal. [facility] FallsFpbwkpwKKHRFWFGYT4448-01-02 21:25:00 Test Item Value Reference Range Interpretation Comments G-value (test code = G-value) 13.2 4.5-11.0 [facility] FallsTsfubceRHMEBUDBVX2895-32-01 21:25:00 Test Item Value Reference Range Interpretation Comments TEG Data (test code = See Note (03/28/16 4:25 TEG Data) PM) [facility] FallsGpbeipiNZVBCLNLZA5298-69-24 21:25:00 Test Item Value Reference Range Interpretation Comments Coag Index (test code 4.2 See_Comment [Auto mated message] The = Coag Index) system which g enerated this result transmit james reference range : <=3.0. The reference range was not used to interpr et this result as mary l/abnormal. [facility] FallsEyxchhvOOVNBLVSEG5656-49-04 21:25:00 Test Item Value Reference Range Interpretation Comments Angle (test code = Angle) 76.9 degrees 53.0-72.0 [facility] FallsCvtbeiwNCFPBJJKZL1642-34-16 21:25:00 Test Item Value Reference Range Interpretation Comments R-time (test code = R-time) 3.7 min 5.0-10.0 [facility] FallsEndjukyPOHNAILZCK1259-17-73 21:25:00 Test Item Value Reference Range Interpretation Comments Max Amp (test code = Max Amp) 72.5 mm 50.0-70.0 [facility] FallsFvqdisrADTZJFZSOO4243-04-98 21:25:00 Test Item Value Reference Range Interpretation Comments K-time (test code = K-time) 0.8 min 1.0-3.0 [facility] FallsKfkmwbsDNGWTFNAGT3658-97-42 21:25:00 Test Item Value Reference Range Interpretation [...] DIC with DIC panel may be indicated. CPT:81840 [facility] FallsWbcwphyFABNDMVVOT4397-70-04 21:25:00 Test Item Value Reference Range Interpretation Comments Hgb (test code = Hgb) 11.8 12.0-16.0 [facility] FallsDcjxjonNXWHXHSIZQ9777-92-18 21:25:00 Test Item Value Reference Range Interpretation Comments Hct (test code = Hct) 35.6 36.0-48.0 [facility] FallsPhcfgemLKYKFFGBZF7459-57-86 21:25:00 Test Item Value Reference Range Interpretation Comments MCHC (test code = MCHC) 33.3 32.0-36.0 [facility] FallsPaonuzmHNOJZRWSTK4206-46-09 21:25:00 Test Item Value Reference Range Interpretation Comments MPV (test code = MPV) 7.6 7.4-10.4 [facility] FallsVddwivePXWYHIQNJQ8246-36-80 21:25:00 Test Item Value Reference Range Interpretation Comments RDW (test code = RDW) 13.7 11.5-14.5 [facility] SurgeryApxcxviDUMAIEGFJP7142-80-56 21:25:00 Test Item Value Reference Range Interpretation Comments Platelet (test code = Platelet) 298 133-450 [facility] SurgeryYgsywmwBDLRGQHWKI8600-87-97 21:25:00 Test Item Value Reference Range Interpretation Comments MCV (test code = MCV) 85.0 80.0-98.0 [facility] SurgeryZtvknxrJJTIJHBWMZ3291-38-63 21:25:00 Test Item Value Reference Range Interpretation Comments MCH (test code = MCH) 28.3 pg 27.0-31.0 [facility] SurgeryUmcfmjzCAWRZYUOYJ8471-17-63 21:25:00 Test Item Value Reference Range Interpretation Comments WBC (test code = WBC) 7.5 3.7-10.4 [facility] SurgeryDpynrziIHVXEOBYAB5695-97-31 21:25:00 Test Item Value Reference Range Interpretation Comments RBC (test code = RBC) 4.18 4.20-5.40 [facility] QEKIGSWSJ8242-47-91 21:25:00 Test Item Value Reference Range Interpretation Comments Hgb A1C (test code = Hgb A1C) 5.2 [facility]
[2022-10-12 05:45] LABS: Albumin 1.8 g/dL (3.4-5.0); Bilirubin Direct 0.5 mg/dL (0-0.2); Bilirubin Total 0.9 mg/dL (0.2-1.0); Magnesium 2.3 mg/dL (1.6-2.4); Potassium 4.1 mEq/L (3.5-5.1); Protein, Total 7.7 g/dL (6.4-8.2)
[2022-10-12] MEDS ORDERED: dilTIAZem HCL 25 MG/5 ML VIAL IV ONE ×3 (05:45→06:32)
[2022-10-12] MEDS ORDERED: DOBUTAMINE 250 MG/250 ML BAG IV ONE ×2 (05:45→16:29)
[2022-10-12 05:48] LABS: Troponin High Sensitivity 59.2 pg/mL (<58.9)
[2022-10-12 05:49] LABS: Absolute Lymphocytes (CBC) 1.5 K/uL (0.7-4.9); Hematocrit 29.9 % (36.0-45.0); Lymphocytes % 7.3 % (15.3-44.8); MCV 81.8 fL (80-100); MPV 6.7 fL (7.6-11.3); RBC Red Blood Cell Count 3.65 M/uL (3.86-4.86)
[2022-10-12 06:03] LABS: SARS-COV-2 RT PCR NEGATIVE (NEGATIVE)
[2022-10-12] MEDS ORDERED: NA CHLORIDE 0.9% 100 ML ONE (06:36)
[2022-10-12] MEDS ORDERED: NA CHLORIDE 0.9% 50 ML ONE (06:37)
[2022-10-12 06:48] LABS: Protime INR 1.23
--- NOTE | 2022-10-12 06:57 | ER ---
Nurse's Notes [facility] Name: Little Stafford Age: 77 yrs Sex: Female : 1945 Arrival Date: 10/12/2022 Time: 04:54 Bed 2 Private MD: Diagnosis: Acute pulmonary edema;Acute systolic heart failure, atrial fibrillation with RVR, acute pulmonary edema, physical deconditioning, acute respiratory failure, hypoxemia Presentation: 10/12 04:56 Chief complaint: EMS states: Pt's called from home, pt has been short of breath kd3 since about 2 am. They had delayed calling because they did not want to come to the hospital. Pt was 60% on room air. Pt did not tolerate masks on her face due to agitation, so no nebs were given. Pt running a fib in the 160's on the EKG. Coronavirus screen: unknown. Ebola Screen: No symptoms or risks identified at this time. Initial Sepsis Screen: Does the patient meet any 2 criteria? No. Patient's initial sepsis screen is negative. Does the patient have a suspected source of infection? No. Patient's initial sepsis screen is negative. Risk Assessment: Do you want to hurt yourself or someone else? Patient reports no desire to harm self or others. Onset of symptoms was October 12, 2022. 04:56 Method Of Arrival: EMS: [facility] kd3 04:56 Acuity: KELLEY 2 kd3 Triage Assessment: 04:59 General: Appears distressed, uncomfortable, Behavior is agitated, anxious. Pain: Unable kd3 to use pain scale. Patient is disoriented. Neuro: Oriented to person. Cardiovascular:. Respiratory: Airway is patent Respiratory effort is labored. Historical: - Allergies: 04:59 NKDA; kd3 - PMHx: 04:59 Chronic pain; Hypertension; Hyperlipidemia; High Cholesterol; DVT Left leg; Depression; kd3 GERD; CHF; Gout; restless leg syndrome; - Immunization history:: Adult Immunizations up to date. - Social history:: Smoking status: Patient denies any tobacco usage or history of. - Family history:: not pertinent. Screenin:02 Abuse screen: Denies threats or abuse. Denies injuries from another. kd3 05:27 Nutritional screening: No deficits noted. Tuberculosis screening: No symptoms or risk ha1 factors identified. Assessment: 06:09 Reassessment:. Reassessment: in shift at bedside. Neuro: Level of Consciousness is ha1 awake, Oriented to person. Respiratory: Airway is patent Respiratory effort is labored, Respiratory pattern is tachypnea. 07:18 General: Appears comfortable, Behavior is anxious. Neuro: Level of Consciousness is ap3 awake, obeys commands, Oriented to person, place. Cardiovascular: Patient's skin is warm and dry. Rhythm is irregular. 14:30 Reassessment: Notified hospitalist of VS - Heart rate continues to stay in range of ld1 150. Order for titrating amiodarone down - notified ERP of HR still tachy. No new orders at this time. Vital Signs: 04:56 BP 128 / 95; Pulse 108; Resp 24; Pulse Ox 97% on BiPAP; kd3 05:26 Temp 98.1; Weight 103 kg; Height 5 ft. 8 in. ; ha1 05:35 BP 117 / 67; Pulse 157; Resp 23; kd3 06:00 BP 101 / 81; Pulse 176; Resp 23; Pulse Ox 92% on 40 lpm BiPAP; ha1 06:40 BP 122 / 48; Pulse 154; Resp 18; Pulse Ox 94% on BiPAP; kd3 07:14 BP 95 / 65; Pulse 163; ap3 07:19 BP 95 / 65; Pulse 156; Resp 17; Pulse Ox 94% on BiPAP; ap3 07:26 BP 109 / 64; Pulse 156; ap3 07:37 BP 106 / 78; Pulse 157; ap3 07:38 BP 106 / 78; Pulse 157; Resp 17; Pulse Ox 94% on BiPAP; ap3 12:41 BP 84 / 45; Pulse 135; ld1 13:31 BP 88 / 45; Pulse 134; Pulse Ox 95% ; ld1 21:12 BP 101 / 68; Pulse 135; Resp 21; Pulse Ox 95% on BiPAP; lg3 05:26 Body Mass Index 34.53 (103.00 kg, 172.72 cm) ha1 ED Course: 04:50 Initial lab(s) drawn, by me, sent to lab. First set of blood cultures drawn by me. bb Inserted saline lock: 20 gauge in right antecubital area, using aseptic technique. Blood collected. 04:54 Patient arrived in ED. ds4 04:54 Potepalov, Ezekiel, MD is Attending Physician. sp4 04:54 Patient has correct armband on for positive identification. Placed in gown. Bed in low ha1 position. Call light in reach. Side rails up X 1. 04:56 Betty Zamorano, RN is Primary Nurse. kd3 04:59 Triage completed. kd3 04:59 Arm band placed on. EKG completed in triage. Results shown to MD. kd3 05:05 Second set of blood cultures drawn by JENNY milligan swab sent to lab. bb 06:05 Assisted provider with central line placement. Set up central line tray. Triple lumen ha1 line placed in left internal jugular. Line placed by Ezekiel Jones MD Placement verified by blood return, Dressed with 4X4s, Tegaderm, Patient tolerated well. Before procedure, did Practitioner(s) obtain informed consent? Yes. Patient \T\ family education about procedure, CLABSI prevention and S/S of infection? Yes. During the procedure, did the Practitioner(s) maintain a sterile field?. 06:16 XRAY CXR (1 view) In Process Unspecified. EDMS 06:51 Lizandro Roe MD is Hospitalizing Provider. sp4 11:08 Notified ED physician of a critical lab result(s). Trop - 212.9. ld1 14:28 Primary Nurse role handed off by Betty Zamorano, RN ld1 14:28 Juliana Martinez, NATASHA is Primary Nurse. ld1 Administered Medications: 08:44 Discontinued: Diltiazem IV 5 mg/hr IV at calculated rate See Administration ap3 Instructions; (standard dilution 125 mg diltiazem mixed in 125 mL NS; final concentration 1mg/mL). Recommended max rate 15 mg/hr; Titrate 5 mg/hr as often as every 15 minutes to achieve goal (see titration policy); Goal parameter HR less than 100 bpm 05:24 Drug: Furosemide IVP 20 mg Route: IVP; Site: right antecubital; kd3 05:24 Drug: MethylPrednisoLONE IVP 125 mg Route: IVP; Site: right antecubital; kd3 06:14 Drug: DuoNeb Nebulize (3:1) (2.5 mg - 0.5 mg) 3 ml Route: Nebulizer; kd3 06:14 Drug: Diltiazem IVP 10 mg Route: IVP; Site: right antecubital; kd3 06:14 Drug: DOBUTamine IV (500 mg/250mL premix) 2.5 mcg/kg/min Route: IV; Rate: 5 mg/hr; kd3 Site: left jugular; 12:41 Follow up: BP 84 / 45; Pulse 135 bpm; Rate change 5 mcg/kg/min; IV Status: Infusion ld1 continued 13:31 Follow up: BP 88 / 45; Pulse 134 bpm; Pulse Ox 95% ; Rate change 7.5 mcg/kg/min; IV ld1 Status: Infusion continued 06:40 Drug: Diltiazem IV 5 mg/hr Route: IV; Rate: calculated rate; Site: left jugular; kd3 07:14 Follow up: BP 95 / 65; Pulse 163 bpm; Rate change 10 mg/hr ap3 07:37 Follow up: BP 106 / 78; Pulse 157 bpm; Rate change 15 mg/hr ap3 07:32 Drug: Ativan IVP 0.5 mg Route: IVP; Site: left jugular; ap3 08:44 Follow up: Response: No adverse reaction; Anxiety decreased ap3 Outcome: 06:57 Decision to Hospitalize by Provider. sp4 22:01 Patient left the ED. kl Signatures: Dispatcher [employer] EDMS Rosalinda Chavez RN RN kl Ballard, Brenda RN Tutu Rahman ds4 Wen Jaeger RN RN ap3 Chantelle Wilburn RN RN lg3 Juliana Martinez RN RN ld1 Betty Zamorano RN RN kd3 Amparo Palma RN RN ha1 Potepalov, Sergey, MD MD sp4
--- NOTE | 2022-10-12 06:58 | EDPHYS ---
Physician Documentation [facility] Name: Little Stafford Age: 77 yrs Sex: Female : 1945 Arrival Date: 10/12/2022 Time: 04:54 Bed 2 Private MD: ED Physician Ezekiel Jones HPI: 10/12 04:56 This 77 yrs old Female presents to ER via Unassigned with complaints of sp4 dyspnea. 04:56 77-year-old female brought here with EMS from home for acute shortness of breath, sp4 patient is on 3 L oxygen at home [id number] she has developed worsening dyspnea throughout the night. She admitted to skilled patient was hypoxemic with saturation in the 60%. Patient was mildly agitated throughout transport and struggling to breathe, on arrival patient is pale hypoxemic and mildly agitated. . 06:02 Patient has history of recent femoral shaft pathologic fracture of the right lower sp4 extremity, hypertension, chronic systolic heart failure, GERD, hyperlipidemia, history of DVT, depression, gout, status post lap band, morbid obesity, primary hyperparathyroidism. . Patient was admitted here from 08/29/2022 through 09/09/2022 for the management of heart failure also intractable lower back pain bilateral lower extremity edema. Lumbar MRI at the time CT revealed moderate to severe multilevel degenerative disc disease and also some right-sided stenosis, minimal central canal stenosis bilateral neuroforaminal narrowing. CAT scan of the right knee revealed humeral shaft fracture. Patient was scheduled to see Dr. Rincon as outpatient for radiation therapy for presumed cancer or pathologic right femur fracture. Patient was then accepted to [facility] for skilled rehab. Patient also has history of atrial fibrillation with intermittent RVR that was managed with metoprolol. . Home medications atorvastatin, gabapentin, pantoprazole, ropinirole, albuterol, allopurinol, apixaban, senna cobalamin, duloxetine, fluticasone, spironolactone, metoprolol, docusate, hydrocodone, and GlycoLax also hydrocodone 10 for pain. Patient is noted to be on Eliquis 2.5 mg twice a day for atrial fibrillation. . Historical: - Allergies: 04:59 NKDA; kd3 - PMHx: 04:59 Chronic pain; Hypertension; Hyperlipidemia; High Cholesterol; DVT Left leg; Depression; kd3 GERD; CHF; Gout; restless leg syndrome; - Immunization history:: Adult Immunizations up to date. - Social history:: Smoking status: Patient denies any tobacco usage or history of. - Family history:: not pertinent. ROS: 06:02 Constitutional: Negative for fever, chills, and weight loss, positive for generalized sp4 weakness, dyspnea, Eyes: Negative for injury, pain, redness, and discharge, ENT: Negative for injury, pain, and discharge, Neck: Negative for injury, pain, and swelling, Cardiovascular: Negative for chest pain, palpitations, and edema, Respiratory: Negative for shortness of breath, cough, wheezing, and pleuritic chest pain, Abdomen/GI: Negative for abdominal pain, nausea, vomiting, diarrhea, and constipation, Back: Negative for injury and pain, : Negative for injury, bleeding, discharge, and swelling, positive for indwelling urinary catheter MS/Extremity: Negative for injury and deformity, Skin: Negative for injury, rash, and discoloration, Neuro: Negative for headache, weakness, numbness, tingling, and seizure, Psych: Negative for depression, anxiety, Allergy/Immunology: Negative for hives, rash, and allergies Endocrine: Negative for neck swelling, polydipsia, polyuria, polyphagia, and weight changes Hematologic/Lymphatic: Negative for swollen nodes, abnormal bleeding, and unusual bruising Exam: 06:02 Constitutional: This is a well developed, well nourished patient who is awake, sp4 morbidly obese female, ill-appearing, toxic-appearing, moderate to severe respiratory distress, indwelling Obando catheter, oxygen dependent, right lower extremity knee immobilizer which is applied for diagnosis of recent right femur fracture. Patient is nonambulatory at this time Head/Face: Normocephalic, atraumatic. Eyes: Pupils equal round and reactive to light, extra-ocular motions intact. Lids and lashes normal. Conjunctiva and sclera are not injected. Cornea within normal limits. Periorbital areas with no swelling, redness, or edema. ENT: Nares patent. No nasal discharge, no septal abnormalities noted. Tympanic membranes are normal and external auditory canals are clear. Oropharynx with no redness, swelling, or masses, exudates, or evidence of obstruction, uvula midline. Mucous membranes moist. Neck: Trachea midline, no thyromegaly or masses palpated, and no cervical lymphadenopathy. Supple, full range of motion without nuchal rigidity, or vertebral point tenderness. No Meningismus. Chest/axilla: Normal chest wall appearance and motion. Nontender with no deformity. No lesions are appreciated. Cardiovascular: Irregularly irregular rapid tachycardia. No murmurs, or rubs. Normal PMI, positive JVD no pulse deficits. Respiratory: Lungs have equal breath sounds bilaterally, diminished bilateral breath sounds at the bases, moderate to severe respiratory distress, breath sounds equal, increased work of breathing, dyspnea and tachypnea Abdomen/GI: Soft, non-tender, with normal bowel sounds. No distension or tympany. No guarding or rebound. No evidence of tenderness throughout. Obese abdomen, abdominal obesity limits examination Back: No spinal tenderness. No costovertebral tenderness. Female : Normal external genitalia. Indwelling Obando catheter is present Skin: Warm, dry with normal turgor. Normal color with no rashes, no lesions, and no evidence of cellulitis. MS/ Extremity: Pulses equal, no cyanosis. Neurovascular intact. Full, normal range of motion. Neuro: Awake and alert, GCS 15, oriented to person, place, time, and situation. Cranial nerves II-XII grossly intact. Motor strength 5/5 in all extremities. Sensory grossly intact. Psych: Awake, alert, with orientation to person, place and time. Acutely anxious 06:15 ECG was reviewed by the Attending Physician. EKG time 514 in the morning, atrial sp4 fibrillation at the rate of 186, with RVR respiratory and muscle tremor artifact, grossly no ST elevations, in summary A-fib with RVR Vital Signs: 04:56 BP 128 / 95; Pulse 108; Resp 24; Pulse Ox 97% on BiPAP; kd3 05:26 Temp 98.1; Weight 103 kg; Height 5 ft. 8 in. ; ha1 05:35 BP 117 / 67; Pulse 157; Resp 23; kd3 06:00 BP 101 / 81; Pulse 176; Resp 23; Pulse Ox 92% on 40 lpm BiPAP; ha1 06:40 BP 122 / 48; Pulse 154; Resp 18; Pulse Ox 94% on BiPAP; kd3 07:14 BP 95 / 65; Pulse 163; ap3 07:19 BP 95 / 65; Pulse 156; Resp 17; Pulse Ox 94% on BiPAP; ap3 07:26 BP 109 / 64; Pulse 156; ap3 07:37 BP 106 / 78; Pulse 157; ap3 07:38 BP 106 / 78; Pulse 157; Resp 17; Pulse Ox 94% on BiPAP; ap3 12:41 BP 84 / 45; Pulse 135; ld1 13:31 BP 88 / 45; Pulse 134; Pulse Ox 95% ; ld1 21:12 BP 101 / 68; Pulse 135; Resp 21; Pulse Ox 95% on BiPAP; lg3 05:26 Body Mass Index 34.53 (103.00 kg, 172.72 cm) ha1 Procedures: 06:02 Central Line: the site was prepped with in sterile fashion, Chlorhexidine, a triple sp4 lumen catheter was inserted, in the left internal jugular vein, in 2 attempts. placement was verified, by CXR, by blood return, the site was dressed with 4X4s, Tegaderm, using sterile technique, the patient tolerated the procedure, well, Ultrasound-guided left internal jugular central line placed for resuscitation. MDM: 04:59 Patient medically screened. sp4 06:02 Differential Diagnosis altered mental status, sepsis, flu. Data reviewed: vital signs, sp4 nurses notes, EMS record, old medical records, lab test result(s), EKG, radiologic studies, plain films. 06:45 Consideration of Admission/Observation Patient was admitted/placed on observation. sp4 Escalation of care including admission/observation considered. Management of patient was discussed with the following: Hospitalist: Dr. Roe notified about admission. ED course: Patient arrived with a rapid atrial fibrillation with heart rate ranging from 1 70-1 90 also suboptimal blood pressure moderate to severe respiratory distress, pulmonary edema. Central line had to be placed emergently for Cardizem and dobutamine infusions. Chest x-ray revealed findings most consistent with congestive heart failure and interstitial pulmonary edema. Patient warrants admission to ICU at this time for management of systolic heart failure associated with pulmonary edema. . 06:59 ED course: Patient has improved after dobutamine and Cardizem were started and blood sp4 pressure is stable. Bar Tender was notified, patient is admitted to ICU but she is going to be a ER hold. 10/12 04:54 Order name: BMP; Complete Time: 06:01 sp4 10/12 04:54 Order name: Blood Culture Adult (2) sp4 10/12 04:54 Order name: CBC with Diff sp4 10/12 04:54 Order name: CPK; Complete Time: 06:01 sp4 10/12 04:54 Order name: D-Dimer; Complete Time: 07:13 sp4 10/12 04:54 Order name: Hepatic Function; Complete Time: 06:01 sp4 10/12 04:54 Order name: Lipase; Complete Time: 06:01 sp4 10/12 04:54 Order name: Magnesium; Complete Time: 06:01 sp4 10/12 04:54 Order name: NT PRO-BNP; Complete Time: 06:01 sp4 10/12 04:54 Order name: PT-INR; Complete Time: 07:13 sp4 10/12 04:54 Order name: Ptt, Activated; Complete Time: 07:13 sp4 10/12 04:54 Order name: Troponin HS; Complete Time: 06:01 sp4 10/12 04:54 Order name: ABG; Complete Time: 06:01 sp4 10/12 04:55 Order name: COVID-19/FLU A+B; Complete Time: 07:00 sp4 10/12 08:00 Order name: Creatine Phosphokinase EDMS 10/12 08:01 Order name: Magnesium EDMS 10/12 08:01 Order name: Urinalysis w/ reflexes EDMS 10/12 08:01 Order name: Basic Metabolic Panel EDMS 10/12 08:01 Order name: Basic Metabolic Panel EDMS 10/12 08:01 Order name: CBC with Automated Diff EDMS 10/12 08:01 Order name: CBC with Automated Diff EDMS 10/12 08:01 Order name: NT PRO-BNP EDMS 10/12 08:01 Order name: NT PRO-BNP EDMS 10/12 08:03 Order name: Troponin High Sensitivity EDMS 10/12 08:03 Order name: Troponin High Sensitivity EDMS 10/12 08:03 Order name: Troponin High Sensitivity EDMS 10/12 08:30 Order name: Manual Differential EDMS 10/12 16:57 Order name: Transferrin Sat/Iron Binding EDMS 10/12 16:57 Order name: Ferritin EDMS 10/12 19:23 Order name: CBC with Automated Diff EDMS 10/12 19:49 Order name: Comprehensive Metabolic Panel EDMS 10/12 19:55 Order name: Type and Screen EDMS 10/12 19:56 Order name: ABO/RH no charge [facility] 10/12 04:54 Order name: XRAY CXR (1 view) [facility] 10/12 04:54 Order name: BIPAP [facility] 10/12 13:01 Order name: CT [facility] 10/12 13:03 Order name: CT [facility] 10/12 04:54 Order name: EKG; Complete Time: 04:55 sp4 10/12 08:00 Order name: CONS Physician Consult [facility] 10/12 08:00 Order name: Heart Healthy [facility] 10/12 04:54 Order name: Cardiac monitoring; Complete Time: 05:15 4 10/12 04:54 Order name: EKG - Nurse/Tech; Complete Time: 05:15 sp4 10/12 04:54 Order name: IV Saline Lock; Complete Time: 05:15 sp4 10/12 04:54 Order name: Labs collected and sent; Complete Time: 05:15 4 10/12 04:54 Order name: O2 Per Protocol; Complete Time: 05:15 4 10/12 04:54 Order name: O2 Sat Monitoring; Complete Time: 05:15 sp4 EC:15 Rate is 186 beats/min. Rhythm is irregularly irregular, A fib with Rapid ventricular sp4 response. Interpreted by me. Administered Medications: 08:44 Discontinued: Diltiazem IV 5 mg/hr IV at calculated rate See Administration ap3 Instructions; (standard dilution 125 mg diltiazem mixed in 125 mL NS; final concentration 1mg/mL). Recommended max rate 15 mg/hr; Titrate 5 mg/hr as often as every 15 minutes to achieve goal (see titration policy); Goal parameter HR less than 100 bpm 05:24 Drug: Furosemide IVP 20 mg Route: IVP; Site: right antecubital; kd3 05:24 Drug: MethylPrednisoLONE IVP 125 mg Route: IVP; Site: right antecubital; kd3 06:14 Drug: DuoNeb Nebulize (3:1) (2.5 mg - 0.5 mg) 3 ml Route: Nebulizer; kd3 06:14 Drug: Diltiazem IVP 10 mg Route: IVP; Site: right antecubital; kd3 06:14 Drug: DOBUTamine IV (500 mg/250mL premix) 2.5 mcg/kg/min Route: IV; Rate: 5 mg/hr; kd3 Site: left jugular; 12:41 Follow up: BP 84 / 45; Pulse 135 bpm; Rate change 5 mcg/kg/min; IV Status: Infusion ld1 continued 13:31 Follow up: BP 88 / 45; Pulse 134 bpm; Pulse Ox 95% ; Rate change 7.5 mcg/kg/min; IV ld1 Status: Infusion continued 06:40 Drug: Diltiazem IV 5 mg/hr Route: IV; Rate: calculated rate; Site: left jugular; kd3 07:14 Follow up: BP 95 / 65; Pulse 163 bpm; Rate change 10 mg/hr ap3 07:37 Follow up: BP 106 / 78; Pulse 157 bpm; Rate change 15 mg/hr ap3 07:32 Drug: Ativan IVP 0.5 mg Route: IVP; Site: left jugular; ap3 08:44 Follow up: Response: No adverse reaction; Anxiety decreased ap3 Disposition Summary: 10/12/22 06:57 Hospitalization Ordered Hospitalization Status: Inpatient Admission sp4 Provider: Lizandro Roe Location: Intensive Care Unit sp4 Condition: Serious sp4 Problem: new sp4 Symptoms: have improved sp4 Bed/Room Type: Standard sp4 Room Assignment: 6-(10/12/22 19:40) lg3 Diagnosis - Acute pulmonary edema sp4 - Acute systolic heart failure, atrial fibrillation with RVR, acute pulmonary edema, sp4 physical deconditioning, acute respiratory failure, hypoxemia Forms: - Medication Reconciliation Form sp4 - SBAR form sp4 Critical care time excluding procedures: 06:59 Critical care time: Bedside Care: 46 minutes, Consultation: 12 minutes, Family sp4 Intervention: 15 minutes. Total time: 73 minutes Signatures: Dispatcher [employer] EDMS Wen Jaeger RN RN ap3 Chantelle Wilburn RN RN lg3 Betty Zamorano RN RN samy3 Ezekiel Jones MD MD sp4 Juliana Martinez RN ld1 Corrections: (The following items were deleted from the chart) 06:17 06:01 Chest Single View+[email or web address] ordered. EDPR EDMS 19:40 06:57 sp4 lg3
[2022-10-12] MEDS ORDERED: LORazepam 2 MG/ML VIAL ONE (07:34)
[2022-10-12] MEDS ORDERED: ONDANSETRON 4 MG/2 ML VIAL IV PRN (07:57)
[2022-10-12] MEDS ORDERED: AMIODARONE HCL 900 MG in Dextrose 5%-Water 482 ML IV SCH ×2 (08:00→08:30)
--- NOTE | 2022-10-12 08:04 | P.HP ---
Certification for Inpatient Patient admitted to: Inpatient With expected LOS: >2 Midnights Patient will require the following post-hospital care: None Practitioner: I am a practitioner with admitting privileges, knowledge of patient current condition, hospital course, and medical plan of care. Services: Services provided to patient in accordance with Admission requirements found in Title 42 Section 412.3 of the Code of Federal Regulations Patient History Date of Service: 10/12/22 Reason for admission: SOB, AMS History of Present Illness: Patient is a 77-year-old male with a past medical history significant for gout, HLD, GERD, DVT, depression, hypertension, chronic back pain, CHF, RLS who presents with complaint shortness of breath and confusion Patient is on home O2 therapy at 3 L/min. Patient's spouse reported that patient woke up this am and informed him that he is having difficulty breathing. Patient's spouse also noted that patient was quite confused. Patient noted with confusion on assessment and Patient unable to provide any history. Per medical records patient O2 sat was noted to be 60% on room air when EMS was called. Patient was noted with swelling in bilateral lower extremities and bilateral hands. Patient's spouse reported that he has not been able to arrange patient's medication in patient medications box and also that patient has not been taking all her medications. Spouse also reported that patient has been having poor appetite. No other signs and symptoms reported. Symptoms are aggravated or re lieved by nothing. Patient was brought to the hospital for medical evaluation. Allergies No Known Allergies Allergy (Verified 08/29/22 21:03) Home Medications: Atorvastatin Calcium 20 mg PO DAILY 05/10/17 Folic Acid 1 mg PO BID 05/10/17 Gabapentin 600 mg PO QID 05/10/17 Pantoprazole [Protonix Tab*] 40 mg PO DAILY 05/10/17 Ropinirole HCl [Requip*] 1 mg PO 6XD 05/10/17 Albuterol Inhaler [Ventolin Inhaler*] 8 gm IH PRN PRN 08/20/20 Allopurinol 300 mg PO DAILY 08/20/20 Apixaban [Eliquis *] 2.5 mg PO BID 08/20/20 Cyanocobalamin (Vitamin B-12) [Vitamin B-12] 1 cap PO DAILY 08/20/20 Duloxetine HCl 60 mg PO BID 08/20/20 Fluticasone/Vilanterol [Breo Ellipta 200-25 Mcg INH] 1 each IH DAILY 08/20/20 Spironolactone 25 mg PO DAILY 08/20/20 Ubidecarenone [Co Q-10] 400 mg PO DAILY 08/20/20 Metoprolol Tartrate [Lopressor*] 25 mg PO BID 6AM 6PM 30 Days #60 tab 08/20/22 Docusate [Colace Cap*] 100 mg PO BID cap 09/09/22 Hydrocodone 10/APAP 325 [[place] 10/325*] 1 tab PO Q6H PRN #15 tab 09/09/22 Polyethyl Gly 3350 [Glycolax*] 17 gm PO DAILY PRN udbot 09/09/22 - Past Medical/Surgical History Diabetic: No -: CHF, Chronic pain, Depression, DVT left leg -: GERD, High Cholesterol, Hyperlipidemia, -: Hypertension, Restless leg syndrome -: Psoriasis -: Osteoarthritis -: Left ankle surgery -: Right knee surgery Psychosocial/ Personal History: Patient lives at home with her , uses wheelchair - Family History Mother -: Heart disease Father -: Cancer - Social History Smoking Status: Unknown if ever smoked Alcohol use: No CD- Drugs: No Caffeine use: Yes Place of Residence: Home Review of Systems is unable to be obtained (Unable to assess. Patient is confused.) Physical Examination - Physical Exam General: Alert, Oriented x2, Moderate distress, Confused HEENT: Atraumatic, PERRLA, Mucous membr. moist/pink, EOMI, Sclerae nonicteric Neck: Supple, 2+ carotid pulse no bruit, No LAD, Without JVD or thyroid abnorm ality Respiratory: Diminished, Expiratory wheezes Cardiovascular: Edema, Irregular heart rate/rhythm Capillary refill: <2 Seconds Gastrointestinal: Normal bowel sounds, Non-distended, No tenderness Musculoskeletal: No clubbing, No contractures, Swelling, Other (Cast of right LE) Integumentary: No rashes, No significant lesion (Chronic tubular) Neurological: Normal speech, Normal tone, Normal affect Lymphatics: No axilla or inguinal lymphadenopathy - Studies Laboratory Data (last 24 hrs) 10/12/22 04:55: PT 14.4 H, INR 1.23, APTT 35.4 H 10/12/22 04:55: WBC 20.80 H, Hgb 8.9 L, Hct 29.9 L, Plt Count 1011 H 10/12/22 04:55: Sodium 132 L, Potassium 4.1, BUN 34 H, Creatinine 1.48 H, Glucose 155 H, Magnesium 2.3, Total Bilirubin 0.9, AST 27, ALT 11 L, Alkaline Phosphatase 146 H, Lipase 50 Assessment and Plan - Plan --A-fib with RVR. Cardiology consulted. Patient was given Cardizem in the ER. Rate is still uncontrolled. Purchasing Agent recommended starting amiodarone drip. Patient to be admitted to ICU. Pulmonology consulted. Patient has not been on Eliquis for past 1 week because spouse has not been able to fill her medication box appropriately. Continue Eliquis. Further management per shell grader and health services rn. -- Acute on chronic systolic CHF exacerbation. Patient's systolic blood pressure was in the 90s but now slightly better with SBP in the 100s. Continue gentle diuresis with Lasix. Daily weight and strict I/O. Cardiology on board. Will await further recommendations. --Acute encephalopathy. Unclear etiology. CT head pending for further evaluation. Continue supportive care. --Elevated D-dimer. VQ scan pending to rule out PE. Continue Eliquis. --Leukocytosis. Likely steroid-induced. Patient on dexamethasone at home. Blood cultures and UA pending to rule out any infectious process. Will reassess WBC in AM. --Hypertension. SBP is in the 100's. We will hold off on BP meds. . --Elevated troponin. Likely secondary to demand ischemia. Will trend troponin levels. Telemetry to monitor for any significant arrhythmia. Purchasing Agent on board. -- RLS. Continue ropinirole. --GERD. Continue Protonix. --Hyperlipidemia. Continue statin. --History of DVT. Continue Eliquis. --Depression. Continue home medication. --Gout. Continue --Microcytic anemia. We will get some iron studies. We will continue to monitor hemoglobin and transfuse if less than 7.0. --Obesity. Likely secondary to sedentary lifestyle and excess calories intake. Patient will be counseled on weight reduction, diet and excise therapy when appropriate when appropriate. -- DVT prophylaxis with Eliquis -- Discharge planning. Social service consulted. Patients spouse having difficulty setting on medications for patient. We will further recommendations.. - Advance Directives Does patient have a Living Will: Yes Does patient have a Durable POA for Healthcare: No
--- NOTE | 2022-10-12 08:11 | EKG ---
Test Date: 2022-10-12 Test Time: 05:14:48 [place] Layer: GAIL MEASUREMENT RESULTS: Intervals: Rate: 186 MD: QRSD: 74 QT: 238 QTc: 418 [place]: P: MD: QRS: 92 T: 68 INTERPRETIVE STATEMENTS: afib with rvr Electronically Signed On 10-12-22 08:10:37 CDT by Ezra Georges
[2022-10-12] MEDS ORDERED: AMIODARONE IN DEXTROSE,ISO-OSM 0 MG/0 ML BAG IV ONE (08:24)
[2022-10-12 08:29] LABS: Anisocytosis 1+; Blood Morphology Comment NOTED (NOT SEEN); Hypochromasia 1+; Platelet Estimate INCR; Polychromasia 1+
[2022-10-12 08:32] LABS: Rouleau NOTED
[2022-10-12] MEDS: ASPIRIN 81 MG CHEWABLE TABLET PO SCH (09:00)
[2022-10-12] MEDS ORDERED: ENOXAPARIN 40 MG/0.4 ML SQ SCH (09:00)
--- NOTE | 2022-10-12 12:11 | RAD REPORT ---
EXAM DESCRIPTION: RAD - Chest Single View - 10/12/2022 6:15 am CLINICAL HISTORY: CHEST PAIN TECHNIQUE: AP chest COMPARISON: None available for comparison FINDINGS: CHEST: Cardiac silhouette is mildly enlarged. Central vascular congestion. Widespread interstitial prominence and thickening of interlobular septal lines, best seen in the left midlung, most consistent with congestive failure and interstitial pulmonary edema. There are bilateral glenohumeral prosthesis in place. IMPRESSION: Findings most consistent with congestive failure and interstitial pulmonary edema. Electronically signed by: Topher Gray MD 10/12/2022 6:31 AM CDT Due to temporary technical issues with the PACS/Fluency reporting system, reports are being signed by the in house radiologist without review as a courtesy to ensure prompt reporting. The interpreting r adiologist is fully responsible for the content of the report.
--- NOTE | 2022-10-12 12:59 | RAD REPORT ---
EXAM DESCRIPTION: CT - Chest For Pe Angio - 10/12/2022 12:51 pm CLINICAL HISTORY: Elevated D-Dimer COMPARISON: Chest Abd Pelvis Wo Con dated 08/29/2022; Chest For Pe Angio dated 08/18/2022 TECHNIQUE: Dynamically enhanced axial 3 mm thick images of the chest were obtained during administra tion of <100> mL Isovue 370 IV contrast. Coronal and oblique reconstruction images were generated and reviewed. Exam utilizes a protocol for optimal evaluation of pulmonary arterial tree. Maximum intensity projections 3D imaging was utilized All CT scans are performed using dose optimization technique as appropriate and may include automated exposure control or mA/KV adjustment according to patient size. FINDINGS: Chest Wall: No suspicious thyroid nodules or pathologic lymphadenopathy. Lungs: Dependent consolidation. Paraseptal emphysema. Limited by motion. Pleura: Small bilateral effusions. Mediastinum/yfn: No pathologic lymphadenopathy. Pulmonary arteries/Aorta: No filling defect identified. Limited evaluation of the subsegmental pulmon carsia arteries. No aortic aneurysm. Heart: No significant pericardial effusion. Cardiomegaly. Coronary artery calcifications. Upper abdomen: No acute abnormality.Gastric banding. Bones: No acute abnormality. Shoulder arthroplasties. Multilevel degenerative changes are present in the spine. IMPRESSION: Negative for pulmonary embolism. Small effusions with dependent airspace disease likely representing atelectasis on a background of pulmonary edema. .
--- NOTE | 2022-10-12 13:02 | RAD REPORT ---
EXAM DESCRIPTION: CT - Head Brain Wo Cont - 10/12/2022 12:52 pm CLINICAL HISTORY: AMS COMPARISON: Head Brain W Cont dated 09/09/2022; Head Brain Wo Cont dated 08/29/2022 TECHNIQUE: All CT scans are performed using dose optimization technique as appropriate and may inclu de automated exposure control or mA/KV adjustment according to patient size. FINDINGS: No intracranial hemorrhage, hydrocephalus or extra-axial fluid collection.No areas of brai n edema or evidence of midline shift. Mild chronic small vessel ischemic changes and cerebral atrophy . The paranasal sinuses and mastoids are clear. The calvarium is intact. Partially imaged fusion hardwa re in the cervical spine. IMPRESSION: No acute intracranial abnormality.
[2022-10-12] MEDS ORDERED: IPRATROPIUM BROM 0.5MG/2.5ML NEB SCH (14:00)
[2022-10-12] MEDS ORDERED: ALBUTEROL 2.5 MG/3 ML NEB SOL NEB SCH (14:00)
[2022-10-12] MEDS: FUROSEMIDE 20 MG/ 2ML VIAL IV SCH (15:00)
[2022-10-12] MEDS ORDERED: DOPAMINE/D5W 0 MG/0 ML BAG IV ONE (16:21)
[2022-10-12 16:57] LABS: Ferritin 910.9 ng/mL (8-388)
[2022-10-12 17:12] LABS: Magnesium 2.1 mg/dL (1.6-2.4)
[2022-10-12] MEDS ORDERED: ALBUTEROL 2.5 MG/3 ML NEB SOL NEB PRN (18:00)
[2022-10-12] MEDS ORDERED: IPRATROPIUM BROM 0.5MG/2.5ML NEB PRN (18:00)
[2022-10-12] MEDS ORDERED: DOBUTAMINE 250 MG/250 ML BAG IV SCH (19:00)
[2022-10-12] MEDS ORDERED: DIGOXIN 0.25 MG/ML AMP IV SCH (19:00)
[2022-10-12 19:13] LABS: Absolute Lymphocytes (CBC) 1.4 K/uL (0.7-4.9); Hematocrit 24.4 % (36.0-45.0); Lymphocytes % 9.9 % (15.3-44.8); MCV 78.7 fL (80-100); MPV 6.4 fL (7.6-11.3); RBC Red Blood Cell Count 3.09 M/uL (3.86-4.86)
[2022-10-12 19:35] LABS: Albumin 1.7 g/dL (3.4-5.0); Bilirubin Total 0.7 mg/dL (0.2-1.0); Potassium 3.9 mEq/L (3.5-5.1); Protein, Total 6.7 g/dL (6.4-8.2)
--- NOTE | 2022-10-12 19:35 | CON ---
Date of Consultation: 10/12/2022 Reason For Consultation: Atrial fibrillation. History Of Present Illness: Ms. Stafford is 77. Has had a history of chronic systolic congestive heart failure, ejection fraction known to be 35%. Has had a history of dyslipidemia, hypertension, history of deep venous thrombosis, obesity, gastroesophageal reflux disease. She is supposed to be taking E liquis at home as well as hydrochlorothiazide. Has seen Dr. Schaeffer for her cardiac care in the past. A t this time, she comes in with atrial fibrillation and a very rapid ventricular response 130-150, hyp otensive. Before I saw her, she was on IV Cardizem as well as dobutamine to keep her blood pressure up. She was having palpitations and some shortness of breath, but no other cardiac symptoms. Denied PND, orthopnea, pedal edema, syncope. Denied chest pain. Denies any fever or chills. Past Medical History: As stated above. Allergies: NONE. Review of Systems: Negative. Social History: Negative. Family History: Noncontributory. Medications: Listed earlier. Physical Examination: Vital Signs: Heart rate of 140-150, O2 saturation is adequate, blood pressure was 90/60, on dobutami ne. Cardizem drip had been discontinued. HEENT: Negative. Neck: Supple with no bruit. Chest: Clear. Cardiac: Revealed atrial fibrillation. Abdomen: Obese, but benign. Extremities: Revealed 1+ edema. Diagnostic Data: Fairly unremarkable except for the EKG. Impression And Plan: Atrial fibrillation, recurrent, on Eliquis, rapid ventricular response with hyp otension. I would avoid using dobutamine if we can. I will try to wean that off because it is proba robin going to increase her heart rate, definitely avoid using Cardizem. I think we need to put her on IV amiodarone bolus and drip and see how she does with that. If she continues to be in atrial fibri llation, we will plan to have a cardioversion on her tomorrow certainly if her blood pressure remains low. Her other problems including chronic systolic congestive heart failure, hypertension, dyslipid emia, history of deep vein thrombosis, gastroesophageal reflux disease and obesity are stable at this point. We will continue to follow her. LISBETH/EDWARD Voice ID: [id number] Report ID: [id number]
[2022-10-12] MEDS ORDERED: APIXABAN 2.5 MG TABLET PO SCH (21:00)
[2022-10-12] MEDS: HEPARIN/D5W 25,000 UNIT/500 ML BAG IV PRN (22:38)
[2022-10-12] MEDS ORDERED: AMIODARONE IN DEXTROSE,ISO-OSM 360 MG/200 ML BAG IV ONE (22:43)
[2022-10-13 06:17] LABS: Absolute Lymphocytes (CBC) 1.4 K/uL (0.7-4.9); Hematocrit 23.4 % (36.0-45.0); Lymphocytes % 10.1 % (15.3-44.8); MCV 78.3 fL (80-100); MPV 6.6 fL (7.6-11.3); RBC Red Blood Cell Count 2.99 M/uL (3.86-4.86)
[2022-10-13 06:18] LABS: Renal Epithelial <5 /HPF (None Seen); Specific Gravity > 1.030 (1.005-1.030); Transitional Epithelial <5 /HPF (None Seen); Urine Bacteria <20 /HPF (<20); Urine Bilirubin NEGATIVE (Negative); Urine Blood Negative (Negative); Urine Clarity Clear (Clear); Urine Color Yellow (Yellow); Urine Glucose NEGATIVE (Negative); Urine Mucus Slight /HPF (None Seen); Urine Protein TRACE (Negative); Urine RBC None Seen /HPF (None Seen); Urine Urobilinogen 1+ (Normal); Urine Yeast with Hyphae Trace /HPF (None Seen)
[2022-10-13 06:37] LABS: Potassium 3.6 mEq/L (3.5-5.1)
[2022-10-13] MEDS ORDERED: FLUCONAZOLE 100mg IVPB 100 MG/50 ML BAG IV SCH (07:00)
[2022-10-13] MEDS ORDERED: NA CHLORIDE 0.9% 250 ML IV SCH (07:00)
--- NOTE | 2022-10-13 07:07 | P.PN ---
Date of Service: 10/13/22 Subjective: feeling okay today slight confusion but following commands tired; weak; dry mouth continues in afib, rate improved; off dobutamine overnight ROS: 10 point ROS as noted above, otherwise negative Physical Exam: GEN: oriented x2, confused HEENT: Normal conjunctiva, sclera anicteric CV: Irregular heart rate/rhythm, Edema Pulm: Nonlabored respirations on 3L NC, expiratory wheezes ABD: Soft, nontender, nondistended MSK: Swelling, Cast of right LE Neuro: Normal speech, normal affect Bueno Cath vitals reviewed Problem List: A-fib with RVR Acute on chronic systolic CHF exacerbation Acute encephalopathy; Unclear etiology Elevated D-dimer Hypertension RLS GERD Hyperlipidemia History of DVT Depression Gout Microcytic anemia Obesity stage 4 cancer, unknown primary A-fib with RVR Cardiology consulted Patient was given Cardizem in the ER. Rate uncontrolled. Cardio recommended starting amiodarone drip. Patient admitted to ICU - Pulmonology consulted Patient has not been on Eliquis for past 1 week because spouse has not been able to fill her medication box appropriately Continue Eliquis Trend Troponin Monitor on Telemetry Failed cardioversion of atrial fibrillation 10/13 she will eventually need an ablation, maybe a pacemaker or a defibrillator based on her ejection fraction and her history per Dr. Georges Acute on chronic systolic CHF exacerbation Continue gentle diuresis with Lasix - low BP limiting aggressiveness Daily weight and strict I/O Acute encephalopathy; Unclear etiology CT head - negative Leukocytosis likely steroid-induced. Patient was reportedly on dexamethasone at home. Blood cultures pending Urine culture pending Started cefapime 10/13 for possible UTI patient presented to ED with bueno - reportedly had at [facility] Elevated D-dimer Chest CTA - negative for pulmonary embolism; Small effusions with dependent airspace disease likely representing atelectasis on a background of pulmonary edema Hypertension SBP is in the 100's. We will hold off on BP meds. RLS GERD Hyperlipidemia History of DVT Depression Continue Protonix Continue statin Continue ropinirole Continue Eliquis - on heparin drip for cardioversion Continue home medication. Microcytic anemia. iron studies ordered. We will continue to monitor hemoglobin and transfuse if less than 7.0. ordered 1 uPRBC 10/13 stage 4 cancer, unknown primary initial prep for palliative radiation originally scheduled for 10/13, will need to reschedule currently unstable for transfer to cancer center for this to be done next door VTE: heparin drip Code: Full Dispo: Social service consulted. Patients spouse having difficulty setting up medications for patient
[2022-10-13] MEDS ORDERED: PNEUMOCOCCAL VACCINE 0.5 ML IMVAC ONE (08:00)
[2022-10-13] MEDS: FUROSEMIDE 20 MG/ 2ML VIAL IV SCH (08:08)
[2022-10-13] MEDS: CEFEPIME 1 GM in NA CHLORIDE 0.9% 100 ML IV SCH ×2 (08:10→20:22)
[2022-10-13] MEDS: ASPIRIN 81 MG CHEWABLE TABLET PO SCH (08:10)
[2022-10-13] MEDS ORDERED: METOPROLOL TARTRATE 5 MG/5 ML INJ IV ONE (08:34)
[2022-10-13] MEDS ORDERED: ATROPINE SULF 1 MG/10 ML SYR IV ONE (08:35)
[2022-10-13] MEDS ORDERED: FLUMAZENIL 0.1 MG/ML (5 mL VIAL) IV ONE (08:35)
[2022-10-13] MEDS ORDERED: MIDAZOLAM HCL 10 ML ONE (08:35)
[2022-10-13] MEDS ORDERED: NA CHLORIDE 0.9% 500 ML ONE (08:36)
[2022-10-13] MEDS ORDERED: AMIODARONE HCL 900 MG in Dextrose 5%-Water 482 ML IV SCH (09:00)
[2022-10-13] MEDS: FLUCONAZOLE 100mg IVPB 100 MG/50 ML BAG IV SCH (09:17)
--- NOTE | 2022-10-13 12:42 | OP ---
Date of Procedure: 10/13/2022 Surgeon: Ezra Georges MD Hardboard Press Operator: Mrs. Sheppard. Procedure: Direct current cardioversion. Indication: Atrial fibrillation with hypotension. Mrs. Stafford had came in with rapid atrial fibrillat ion, heart rate in the 130s, hypotension, anemia. She is getting blood transfusion today. Blood pre ssure was initially in the 80s, that improved with hydration and IV dobutamine. The IV dobutamine vaughn s been off. She had been on IV amiodarone since admission. Heart rate remains in the 110s to 120s, in atrial fibrillation. The patient has had paroxysmal atrial fibrillation in the past. Has been ta king Lenin at one point, but we are not really sure of how compliant she hernandez. Last echocardiogram showed an ejection fraction of 35%. In the lab rn today, we gave a total of 6 mg of Versed, IV se dation. She received 3 shocks of 200, 300, and 360 joules via the and she failed to conve rt. There were no complications. No blood loss. Final Diagnosis: Failed cardioversion of atrial fibrillation. She will eventually need an ablation, maybe a pacemaker or a defibrillator based on her ejection frac tion and her history. Case was discussed with the family and Dr. Roe. LISBETH/EDWARD Voice ID: [id number] Report ID: [id number]
--- NOTE | 2022-10-13 14:37 | CON ---
Date of Consultation: 10/13/2022 Reason For Consultation: Elevated BUN and creatinine, fluid management. History Of Present Illness: This is a pleasant 77-year-old female, well known to me from previous admission with significant past medical history of congestive heart failure, nonischemic, with ejection fraction of 35%, GERD, DVT, osteoarthritis, on gabapentin, chronic kidney disease, status post acute kidney injury on the last admission secondary to nonsteroidal use and cardiorenal, AFib, the patient came to the hospital with palpitation, shortness of breath, found to have AFib with RVR. Conversion was tried and failed. The patient placed on heparin drip and amiodarone. The patient found to have elevation in BUN and creatinine. For that reason, we have been consulted. The patient denied taking any nonsteroidal. No recent IV contrast. The patient's creatinine upon discharge last time was within normal limits. Past Medical History: Includes; 1. Nonischemic cardiomyopathy with ejection fraction of 37%. 2. DVT. 3. GERD. 4. Chronic edema. 5. AFib with RVR. 6. Osteoarthritis. 7. Hypertension. Past Surgical History: Includes left ankle surgery, femur fracture. Family History: Positive for CAD, cancer, and hypertension. Social History: Denied smoking, denied drinking, denied drugs abuse. Lives with family. Review of Systems: Head and Neck: No red eye. No ear pain. GI: No nausea. No vomiting. : No polyuria. No dysuria. No hematuria. 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 Respiratory: Has shortness of breath. Cardiovascular: Has orthopnea. Has leg swelling. Has palpitation. Endocrine: No polydipsia. Skin: No rash. Neuro: Has neuropathy. Musculoskeletal: Generalized fatigue, low back pain. Physical Examination: General: When I saw the patient; the patient lying in bed, on nasal cannula. Vital Signs: Blood pressure of 119/54, pulse of 110. Chest: Crackles bilateral. Heart: S1, S2. Systolic murmur. Irregular. Abdomen: Soft, nontender. Extremities: Plus edema. Cast on the right leg. Neurologic: Alert. No focality. Laboratory Data: Hemoglobin 7.3. Sodium 135, potassium 3.6, bicarb 31, BUN 47, creatinine 1.2, calcium 9.4. Ferritin 910. Iron saturation of 12. Albumin of 1.7. Troponin 212. BNP 31,000. Current Medications: The patient on include; 1. Amiodarone drip. 2. Fluconazole. 3. Cefepime. 4. Tylenol. 5. Zofran. Assessment And Plan: 1. Acute kidney injury on chronic kidney disease secondary to cardiorenal, over volume with respiratory symptoms. I am going to start the patient on Lasix 40 b.i.d., start the patient on spironolactone to establish better volume control and we will continue to monitor the patient. 2. Hypertension, currently blood pressure on the lower side. We will try to establish better blood pressure and utilize blood pressure for more diuresis. 3. Hyponatremia, dilutional, because of congestive heart failure. We will optimize diuresis. 4. Hypokalemia. We will supplement. Start the patient on spironolactone. 5. Congestive heart failure with exacerbation. We will optimize diuresis and we will follow up. The patient is a good candidate for Entresto down the road. 6. Atrial fibrillation with rapid ventricular response by Cardiology. Time spent examining the patient [id number], reviewing data, lab and radiology, placing order, discussing the case with the patient, discussing the case with the molybdenum steamer operator including nurse more than 65 minutes ANGELICA Voice ID: [id number] Report ID: [id number] ROSS
[2022-10-13] MEDS: SOD FERRIC GLUC COMPLX/SUCROSE 250 MG in NA CHLORIDE 0.9% 250 ML IV SCH (14:49)
[2022-10-13 15:09] LABS: Hematocrit 27.4 % (36.0-45.0)
[2022-10-13] MEDS: FUROSEMIDE 40 MG/4 ML VIAL IV SCH (16:47)
[2022-10-13] MEDS: AMIODARONE HCL 200 MG TAB PO SCH ×2 (16:48→20:22)
[2022-10-13] MEDS: JUVEN PACKET PO SCH (20:22)
[2022-10-13] MEDS: HEPARIN/D5W 25,000 UNIT/500 ML BAG IV PRN (22:30)
[2022-10-14 06:01] LABS: Absolute Lymphocytes (CBC) 1.2 K/uL (0.7-4.9); Hematocrit 26.6 % (36.0-45.0); Lymphocytes % 5.9 % (15.3-44.8); MCV 79.7 fL (80-100); MPV 6.1 fL (7.6-11.3); RBC Red Blood Cell Count 3.34 M/uL (3.86-4.86)
[2022-10-14 06:14] LABS: Albumin 1.7 g/dL (3.4-5.0); Bilirubin Total 0.7 mg/dL (0.2-1.0); Magnesium 1.9 mg/dL (1.6-2.4); Potassium 3.1 mEq/L (3.5-5.1); Protein, Total 7.3 g/dL (6.4-8.2)
[2022-10-14 07:04] LABS: Blood Morphology Comment NOT SEEN (NOT SEEN); Platelet Estimate ADEQ; White Blood Cell Scan OK (OK)
--- NOTE | 2022-10-14 07:12 | P.PN ---
Date of Service: 10/14/22 Subjective: feeling good today SOB easily with any activity off heparin today, off amio drip; on eliquis and oral amio poor intake ROS: 10 point ROS as noted above, otherwise negative Physical Exam: GEN: oriented x3, weak HEENT: Normal conjunctiva, sclera anicteric CV: Irregular heart rate/rhythm, 2-3+ b/l Edema Pulm: Nonlabored respirations on 3L NC, rhonchi bilaterally ABD: Soft, nontender, nondistended Neuro: generalized weakness, more alert Bueno Cath in place vitals reviewed Problem List: A-fib with RVR Acute on chronic systolic CHF exacerbation Acute encephalopathy; Unclear etiology UTI Hypertension RLS GERD Hyperlipidemia History of DVT Depression Gout Microcytic anemia Obesity stage 4 cancer, unknown primary Severe protein-calorie malnutrition Pressure Injury stage II, sacrum A-fib with RVR Cardiology consulted Patient was given Cardizem in the ER. Rate uncontrolled. Cardio recommended starting amiodarone drip. Patient admitted to ICU - Pulmonology consulted Patient has not been on Eliquis for past 1 week because spouse has not been able to fill her medication box appropriately heparin drip initially for cardioversion - failed transitioned to eliquis Monitor on Telemetry Failed cardioversion of atrial fibrillation 10/13 she will eventually need an ablation, maybe a pacemaker or a defibrillator based on her ejection fraction and her history per Dr. Georges CXR 10/14 - stable chest since comparative study Chest CTA - negative for pulmonary embolism; Small effusions with dependent airspace disease likely representing atelectasis on a background of pulmonary edema Acute on chronic systolic CHF exacerbation Continue gentle diuresis with Lasix - low BP limiting aggressiveness on admission low albumin Daily weight and strict I/O Acute encephalopathy; Unclear etiology CT head - negative Leukocytosis likely steroid-induced. Patient was reportedly on dexamethasone at home. leukocytosis improved and now worse on 10/14, likely reactive from cardioversion, possibly from UTI Blood cultures pending UTI Urine culture pending UA with yeast, diflucan ordered Started cefapime 10/13 for possible UTI patient presented to ED with bueno - reportedly had at [facility] Hypertension SBP is in the 100's. We will hold off on BP meds. RLS GERD Hyperlipidemia History of DVT Depression Continue Protonix Continue statin Continue ropinirole Continue Eliquis Continue home medication. Microcytic anemia. iron studies - iron deficiency. We will continue to monitor hemoglobin and transfuse if less than 7.0. ordered 1 uPRBC 10/13 stage 4 cancer, unknown primary initial prep for palliative radiation originally scheduled for 10/13, will need to reschedule currently unstable for transfer to cancer center for this to be done next door VTE: Eliquis Code: Full Dispo: Social service consulted. Patients spouse having difficulty setting up medications for patient family discussing /contemplating transfer to [facility] want somewhere she can have treatment for cancer and for afib/chf discussed with Dr. Rincon, pt was set up for palliative radiation to start this week for her right femur. does not require inpatient treatment and can be arranged to start after discharge discussed with on 10/14, afib/chf can be managed, and is improving here, so would be considered a lateral transfer, but I'm more than happy to initiated transfer and try for their preference. He stated he would discuss with family and get back to me, he did not have his phone on him. I attempted to call pt's daughter to discuss, no answer, left voicemail
[2022-10-14] MEDS: CEFEPIME 1 GM in NA CHLORIDE 0.9% 100 ML IV SCH ×2 (07:44→21:15)
[2022-10-14] MEDS: SPIRONOLACTONE 25 MG TABLET PO SCH (07:44)
[2022-10-14] MEDS: ASPIRIN 81 MG CHEWABLE TABLET PO SCH (07:45)
[2022-10-14] MEDS: AMIODARONE HCL 200 MG TAB PO SCH ×2 (07:45→21:15)
[2022-10-14] MEDS: APIXABAN 5 MG TABLET PO SCH ×2 (07:45→21:15)
[2022-10-14] MEDS: FUROSEMIDE 40 MG/4 ML VIAL IV SCH ×2 (07:45→17:22)
[2022-10-14] MEDS: JUVEN PACKET PO SCH ×2 (08:04→21:00)
--- NOTE | 2022-10-14 08:48 | RAD REPORT ---
EXAM DESCRIPTION: RAD - Chest Single View - 10/14/2022 5:18 am CLINICAL HISTORY: chf Chest pain. COMPARISON: Chest Single View dated 10/12/2022; Chest Single View dated 09/05/2022; Chest Single View d ated 08/29/2022; Chest Single View dated 08/18/2022 FINDINGS: Portable technique limits examination quality. Bilateral pulmonary opacities are noted, appearing unchanged since comparative study. The heart is mo derately enlarged. Aortic atherosclerosis.Left-sided venous catheter its tip in the right atrium. Fred ateral shoulder arthroplasties. IMPRESSION: Essentially stable chest since comparative study.
--- NOTE | 2022-10-14 08:52 | P.CNS ---
Date of Consult: 10/14/22 Reason for Consult: UTI, bueno, +yeast Chief Complaint: SOB, AMS History of Present Illness: Patient is a 77 yo female with a past medical history of hypertension, hyperlipidemia, CHF, GERD, and chronic back pain who presented to the ED with complaints of shortness of breath. Patient's spouse reports that the patient became short of breath at night with altered mental status, which prompted him to call EMS. Patient is non-ambulatory and is on 3L Oxygen at home. ID is consulted for concern of UTI, UA showing yeast. Awaiting urine culture results. Leukocytosis (WBC 21.2), afebrile. Currently on empiric IV cefepime and fluconazole. Patient is seen in the ICU and is currently resting comfortably in bed, on 3L NC, oriented x3. at bedside. Allergies No Known Allergies Allergy (Verified 08/29/22 21:03) Home medications list reviewed: Yes Home Medications: Atorvastatin Calcium 20 mg PO DAILY 05/10/17 Folic Acid 1 mg PO BID 05/10/17 Gabapentin 600 mg PO QID 05/10/17 Pantoprazole [Protonix Tab*] 40 mg PO DAILY 05/10/17 Ropinirole HCl [Requip*] 1 mg PO 6XD 05/10/17 Albuterol Inhaler [Ventolin Inhaler*] 8 gm IH PRN PRN 08/20/20 Allopurinol 300 mg PO DAILY 08/20/20 Apixaban [Eliquis *] 2.5 mg PO BID 08/20/20 Cyanocobalamin (Vitamin B-12) [Vitamin B-12] 1 cap PO DAILY 08/20/20 Duloxetine HCl 60 mg PO BID 08/20/20 Fluticasone/Vilanterol [Breo Ellipta 200-25 Mcg INH] 1 each IH DAILY 08/20/20 Spironolactone 25 mg PO DAILY 08/20/20 Ubidecarenone [Co Q-10] 400 mg PO DAILY 08/20/20 Metoprolol Tartrate [Lopressor*] 25 mg PO BID 6AM 6PM 30 Days #60 tab 08/20/22 Docusate [Colace Cap*] 100 mg PO BID cap 09/09/22 Hydrocodone 10/APAP 325 [[place] 10/325*] 1 tab PO Q6H PRN #15 tab 09/09/22 Polyethyl Gly 3350 [Glycolax*] 17 gm PO DAILY PRN udbot 09/09/22 - Past Medical/Surgical History Diabetic: No -: CHF, Chronic pain, Depression, DVT left leg -: GERD, High Cholesterol, Hyperlipidemia, -: Hypertension, Restless leg syndrome -: Psoriasis -: Osteoarthritis -: Left ankle surgery -: Right knee surgery -: right leg injury Psychosocial/ Personal History: Patient lives at home with her , uses wheelchair - Family History Mother Medical History: Heart disease Father Medical History: Cancer - Social History Smoking Status: Unknown if ever smoked Alcohol use: No CD- Drugs: No Caffeine use: Yes Place of Residence: Home Review of Systems 10-point ROS is otherwise unremarkable General: Weakness Respiratory: Shortness of Breath Musculoskeletal: Back Pain, Leg Pain (Right Leg) Physical Examination Temp Pulse Resp BP Pulse Ox 97.9 F 96 H 15 127/57 L 94 10/14/22 08:00 10/14/22 08:00 10/14/22 08:00 10/14/22 08:00 10/14/22 08:00 General: Alert, In no apparent distress, Oriented x2 HEENT: Atraumatic, Normocephalic Neck: Supple, JVD not distended Respiratory: Diminished Cardiovascular: Normal pulses, Irregular heart rate/rhythm Gastrointestinal: Normal bowel sounds, Soft and benign, Non-distended Musculoskeletal: Other (soft splint right leg; surgical madisyn right leg) Integumentary: Pressure ulcer (sacral stage 2) Neurological: Normal tone, Normal affect Urinary: Bueno catheter Laboratory Data - Reviewed Microbiology Data - Blood Culture 10/12: No growth to date - Urine Culture 10/13: pending Imagings Data: - Reviewed Medications List Reviewed: Yes Conclusions/Impression: Problem List - Atrial Fibrillation with RVR - Hypertension - CHF exacerbation - Acute Encephalopathy - Microcytic Anemia - GERD - Hyperlipidemia - Depression - Stage 4 Cancer - Leukocytosis - Severe protein-calorie malnutrition - Pressure Injury stage II, sacrum UTI - UA +yeast - Urine culture 10/13 pending - on empiric IV cefepime and IV fluconazole - leukocytosis; afebrile Recommendations - Continue IV Cefepime and Fluconazole for now - Awaiting urine culture results - Ensure adequate nutritional intake - Continue wound care to sacral pressure injury; offload pressure/turn Q2H ID will follow up and monitor patient closely. Case discussed with Ross Ibanez
[2022-10-14] MEDS: FLUCONAZOLE 100mg IVPB 100 MG/50 ML BAG IV SCH (09:14)
--- NOTE | 2022-10-14 10:25 | P.CNS ---
Date of Consult: 10/14/22 Reason for Consult: Sleep apnea shortness of breath Chief Complaint: SOB, AMS History of Present Illness: Patient is 77 years of age with a history of CPAP [place] medical problems he is on oxygen at home mated with worsening dyspnea and new onset A-fib nonweig htbearing right now due to recent fracture of the right femur otherwise patient has improved Allergies No Known Allergies Allergy (Verified 08/29/22 21:03) Home Medications: Atorvastatin Calcium 20 mg PO DAILY 05/10/17 Folic Acid 1 mg PO BID 05/10/17 Gabapentin 600 mg PO QID 05/10/17 Pantoprazole [Protonix Tab*] 40 mg PO DAILY 05/10/17 Ropinirole HCl [Requip*] 1 mg PO 6XD 05/10/17 Albuterol Inhaler [Ventolin Inhaler*] 8 gm IH PRN PRN 08/20/20 Allopurinol 300 mg PO DAILY 08/20/20 Apixaban [Eliquis *] 2.5 mg PO BID 08/20/20 Cyanocobalamin (Vitamin B-12) [Vitamin B-12] 1 cap PO DAILY 08/20/20 Duloxetine HCl 60 mg PO BID 08/20/20 Fluticasone/Vilanterol [Breo Ellipta 200-25 Mcg INH] 1 each IH DAILY 08/20/20 Spironolactone 25 mg PO DAILY 08/20/20 Ubidecarenone [Co Q-10] 400 mg PO DAILY 08/20/20 Metoprolol Tartrate [Lopressor*] 25 mg PO BID 6AM 6PM 30 Days #60 tab 08/20/22 Docusate [Colace Cap*] 100 mg PO BID cap 09/09/22 Hydrocodone 10/APAP 325 [[place] 10/325*] 1 tab PO Q6H PRN #15 tab 09/09/22 Polyethyl Gly 3350 [Glycolax*] 17 gm PO DAILY PRN udbot 09/09/22 - Past Medical/Surgical History Diabetic: No -: CHF, Chronic pain, Depression, DVT left leg -: GERD, High Cholesterol, Hyperlipidemia, -: Hypertension, Restless leg syndrome -: Psoriasis -: Osteoarthritis -: Left ankle surgery -: Right knee surgery -: right leg injury Psychosocial/ Personal History: Patient lives at home with her , uses wheelchair - Family History Mother Medical History: Heart disease Father Medical History: Cancer - Social History Smoking Status: Unknown if ever smoked Alcohol use: No CD- Drugs: No Caffeine use: Yes Place of Residence: Home Review of Systems 10-point ROS is otherwise unremarkable General: Weakness Respiratory: Shortness of Breath Physical Examination Temp Pulse Resp BP Pulse Ox 97.9 F 96 H 15 127/57 L 94 10/14/22 08:00 10/14/22 08:00 10/14/22 08:00 10/14/22 08:00 10/14/22 08:00 General: Alert, In no apparent distress, Oriented x3 Neck: Supple Respiratory: Clear to auscultation bilaterally, Diminished Cardiovascular: Edema, Irregular heart rate/rhythm - Problems (1) Atrial fibrillation Current Visit: No Status: Acute Plan: Patient is 77 years of age admitted with worsening heart failure due to A-fib he is already anticoagulated history of DVT history of sleep apnea machine is very old and I have advised her to follow-up with me for most likely needs to be replaced is on home oxygen patient's white count is elevated CT scan showed mild bilateral pleural effusions patient is on amiodarone echocardiogram in August this year showed depressed ejection fraction normal thyroid function we will check room air blood gases blood cultures are so far negative White count continues to remain elevated Qualifiers: Atrial fibrillation type: unspecified Qualified Code(s): I48.91 - Unspecified atrial fibrillation
[2022-10-14] MEDS ORDERED: POTASSIUM CL 40 MEQ in NA CHLORIDE 0.9% 500 ML IV SCH (13:00)
--- NOTE | 2022-10-14 14:45 | P.PN ---
Subjective Date of Service: 10/14/22 Chief Complaint: SOB, AMS Subjective: No new changes Physical Examination - Vital Signs Temperature: 96.8 F Blood Pressure: 128/59 Pulse: 107 Respirations: 20 Pulse Ox (%): 91 - Physical Exam General: Other (appears as her stated age) HEENT: Atraumatic, Normocephalic Neck: Supple Respiratory: Other (symmetric chest expansion) Cardiovascular: No rubs, No murmurs Gastrointestinal: Soft and benign, No guarding Musculoskeletal: No clubbing Integumentary: No warmth Neurological: Normal tone Urinary: Other (no bladder distention) External genitalia: Deferred Rectal: Deferred Assessment And Plan - Plan 1. Acute kidney injury on chronic kidney disease secondary to cardiorenal, over volume with respiratory symptoms. Continue Lasix IV twice a day + [place] po daily same dose. [place] by mouth fluid intake. 2. Hyponatremia. Improved. [place] by mouth fluid intake. 3. Hypokalemia. KCl repletion today. Started on spironolactone. 4. Congestive heart failure with exacerbation. Urine chemistry on 10/14/2022 showed adequate natriuresis. Continue Lasix IV twice a day + [place] po daily same dosing. 5. Atrial fibrillation with rapid ventricular response. Per Cardiology. 6. Anemia. Monitor CBC.
[2022-10-14] MEDS ORDERED: METOPROLOL TARTRATE 5 MG/5 ML INJ IV STA (14:49)
[2022-10-14] MEDS ORDERED: ALBUMIN HUM 5% 250 ML IV ONE (15:00)
[2022-10-14] MEDS: ACETAMINOPHEN 325 MG TABLET PO PRN (21:16)
--- NOTE | 2022-10-14 23:04 | PN ---
Date of Progress Note: 10/14/2022 We have been following Ms. Stafford for congestive heart failure and atrial fibrillation and severe anemi a. Yesterday, we attempted cardioversion electrically. We gave her 3 shocks at 200, 300 and 360 demetra les and she still did not convert. She remains on amiodarone, but we are going to switch her to p.o. amiodarone. Digoxin was added. She was given 2 units of blood transfusion. Her last hemoglobin is 8.6. She is still on antibiotics, Lasix, inhalers. Now, she is on p.o. digoxin and Lasix and p.o. amiodarone. Her last creatinine is 1.23. She is still in atrial fibrillation. Her heart rate is 94 . Again, she had an ejection fraction in the 30% range and I think she would benefit greatly from an outpatient ablation, may be a pacemaker and possibly a defibrillator if her other problems are resol lashonda. We will continue to follow for now. LISBETH/EDWARD Voice ID: [id number] Report ID: [id number]
[2022-10-15 05:19] LABS: Absolute Lymphocytes (CBC) 1.2 K/uL (0.7-4.9); Hematocrit 25.4 % (36.0-45.0); MPV 6.4 fL (7.6-11.3); RBC Red Blood Cell Count 3.17 M/uL (3.86-4.86)
[2022-10-15 05:49] LABS: Albumin 1.9 g/dL (3.4-5.0); Bilirubin Total 0.8 mg/dL (0.2-1.0); Magnesium 1.6 mg/dL (1.6-2.4); Protein, Total 6.3 g/dL (6.4-8.2)
[2022-10-15 05:53] LABS: Potassium 2.6 mEq/L (3.5-5.1)
--- NOTE | 2022-10-15 06:53 | P.PN ---
Date of Service: 10/15/22 Subjective: no chest pain; feels breathing is fine today right leg feels very painful this morning UOP improving intermittent confusion overnight; more alert today madisyn removed ROS: 10 point ROS as noted above, otherwise negative Physical Exam: GEN: oriented x3, weak HEENT: Normal conjunctiva, sclera anicteric CV: Irregularly irregular heart rate/rhythm, 2-3+ b/l Edema Pulm: Nonlabored respirations on 3L NC, rhonchi bilaterally ABD: Soft, nontender, nondistended Neuro: generalized weakness, more alert Bueno in place vitals reviewed Problem List: A-fib with RVR; paroxysmal Acute on chronic systolic CHF exacerbation Acute encephalopathy; Unclear etiology UTI Hypertension RLS GERD Hyperlipidemia History of DVT Depression Gout Microcytic anemia Obesity stage 4 cancer, unknown primary Severe protein-calorie malnutrition Pressure Injury stage II, sacrum A-fib with RVR Cardiology consulted Patient was given Cardizem in the ER. Rate uncontrolled. Cardio recommended starting amiodarone drip. Patient admitted to ICU - Pulmonology consulted Patient has not been on Eliquis for past 1 week because spouse has not been able to fill her medication box appropriately heparin drip initially for cardioversion - failed transitioned to eliquis Failed cardioversion of atrial fibrillation 10/13 she will eventually need an ablation, maybe a pacemaker or a defibrillator based on her ejection fraction and her history per Dr. Georges Chest CTA - negative for pulmonary embolism; Small effusions with dependent airspace disease likely representing atelectasis on a background of pulmonary edema BP improved, tolerated lopressor IV, with improvement temporarily; start PO Acute on chronic systolic CHF exacerbation Hold lasix 10/15 per nephrology low albumin, give albumin Daily weight and strict I/O Acute encephalopathy; Unclear etiology CT head - negative Leukocytosis likely steroid-induced. Patient was reportedly on dexamethasone at home. leukocytosis improved and now worse on 10/14, likely reactive from cardioversion, possibly from UTI Blood cultures pending improved once afib rate improved as well UTI Urine culture pending UA with yeast, diflucan ordered Started cefapime 10/13 for possible UTI patient presented to ED with bueno - reportedly had at SNF Hypertension SBP is in the 100's. We will hold off on BP meds. RLS GERD Hyperlipidemia History of DVT Depression Continue Protonix Continue statin Continue ropinirole Continue Eliquis Continue home medication. Microcytic anemia. iron studies - iron deficiency. We will continue to monitor hemoglobin and transfuse if less than 7.0. ordered 1 uPRBC 10/13 stage 4 cancer, unknown primary initial prep for palliative radiation originally scheduled for 10/13, will need to reschedule currently unstable for transfer to cancer center for this to be done next door VTE: Eliquis Code: Full Dispo: Social service consulted. Patients spouse having difficulty setting up medications for patient family discussing /contemplating transfer [facility] somewhere she can have treatment for cancer and for afib/chf discussed with Dr. Rincon, pt was set up for palliative radiation to start this week for her right femur. does not require inpatient treatment and can be arranged to start after discharge discussed with on 10/14, afib/chf can be managed, and is improving here, so would be considered a lateral transfer, but I'm more than happy to initiated transfer and try for their preference. He stated he would discuss with family and get back to me, he did not have his phone on him. I attempted to call pt's daughter to discuss, no answer, left voicemail pt with HR briefly up to 170, improved with lopressor; not stable for transfer at this time
[2022-10-15] MEDS ORDERED: POTASSIUM CL 40 MEQ in NA CHLORIDE 0.9% 500 ML IV SCH (07:00)
[2022-10-15] MEDS: CEFEPIME 1 GM in NA CHLORIDE 0.9% 100 ML IV SCH ×2 (08:50→21:42)
[2022-10-15] MEDS: AMIODARONE HCL 200 MG TAB PO SCH ×2 (08:50→21:41)
[2022-10-15] MEDS: POTASSIUM CL 40 MEQ in NA CHLORIDE 0.9% 500 ML IV SCH ×2 (08:50→13:04)
[2022-10-15] MEDS: ASPIRIN 81 MG CHEWABLE TABLET PO SCH (08:50)
[2022-10-15] MEDS: FLUCONAZOLE 100mg IVPB 100 MG/50 ML BAG IV SCH (08:50)
[2022-10-15] MEDS: APIXABAN 5 MG TABLET PO SCH ×2 (08:50→21:41)
[2022-10-15] MEDS: FUROSEMIDE 40 MG/4 ML VIAL IV SCH ×2 (08:51→16:38)
[2022-10-15] MEDS: JUVEN PACKET PO SCH ×2 (09:00→21:00)
[2022-10-15] MEDS: SPIRONOLACTONE 25 MG TABLET PO SCH (09:00)
[2022-10-15] MEDS: ACETAMINOPHEN 325 MG TABLET PO PRN ×2 (12:58→23:34)
[2022-10-15] MEDS: PANTOPRAZOLE 40MG TABLET PO SCH (14:38)
[2022-10-15] MEDS ORDERED: METOPROLOL TARTRATE 5 MG/5 ML INJ IV STA ×2 (14:51→16:01)
[2022-10-15] MEDS ORDERED: METOPROLOL TAR 25 MG TAB PO ONE (15:52)
[2022-10-15] MEDS ORDERED: METOPROLOL TARTRATE 5 MG/5 ML INJ IV ONE (15:52)
[2022-10-15] MEDS ORDERED: Magnesium Sulfate 2gm IVPB 2 G/50 ML BAG IV ONE (16:00)
[2022-10-15] MEDS ORDERED: METOPROLOL TAR 25 MG TAB ONE (16:01)
--- NOTE | 2022-10-15 19:45 | PN ---
Date of Progress Note: 10/15/2022 Chief Complaint: [id number] kidney injury secondary to cardiorenal syndrome with fluid overloa d and dyspnea. Subjective: The patient was taking Lasix IV twice a day. Hypokalemia treatment was started with pot assium repletion as well as spironolactone was added. The patient has congestive heart failure with exacerbation. She has atrial fibrillation with rapid ventricular response and Cardiology is followin g the patient. The patient remains in ICU. Review of Systems: The patient denies chest pain or palpitations. Physical Examination: Lungs: Clear to auscultation bilaterally. Heart: S1, S2. Abdomen: Soft, benign. Extremities: Slight edema. Impression And Plan: 1.Acute kidney injury on chronic kidney disease secondary to cardiorenal syndrome with fluid overloa d. Volemia overall has improved. Renal function is stabilizing. The patient was taking IV Lasix. Due to severe hypokalemia, Lasix is on hold today. Continue spironolactone. 2.Hyponatremia secondary to cardiorenal syndrome and fluid overload. Overall hyponatremia has impro lashonda. 3.Hypokalemia, severe. The patient is receiving IV potassium and re-evaluate renal panel. 4.Congestive heart failure with exacerbation. The patient was treated with IV Lasix. Adjust diuret ic. Plan is to monitor potassium and magnesium levels. 5.Atrial fibrillation, by Cardiology. MIKEY/MODL Voice ID: [id number] Report ID: [id number]
[2022-10-15 21:01] LABS: Magnesium 2.1 mg/dL (1.6-2.4); Potassium 3.9 mEq/L (3.5-5.1)
[2022-10-15] MEDS: METOPROLOL TAR 25 MG TAB PO SCH (21:42)
[2022-10-15] MEDS ORDERED: FUROSEMIDE 40 MG/4 ML VIAL IV ONE (23:58)
[2022-10-16] MEDS ORDERED: IPRATROPIUM BROM 0.5MG/2.5ML ONE (00:04)
[2022-10-16 05:21] LABS: Hematocrit 27.9 % (36.0-45.0); MCV 81.5 fL (80-100); MPV 6.6 fL (7.6-11.3); RBC Red Blood Cell Count 3.42 M/uL (3.86-4.86)
[2022-10-16 05:39] LABS: Phosphorus 2.9 mg/dL (2.5-4.9); Potassium 3.6 mEq/L (3.5-5.1)
--- NOTE | 2022-10-16 06:54 | P.PN ---
Date of Service: 10/16/22 Subjective: 1 episode of tachypnea /anxiety improved, given lasix HR improved, occasional increase ROS: 10 point ROS as noted above, otherwise negative Physical Exam: GEN: oriented x3, generalized weakness HEENT: Normal conjunctiva, sclera anicteric CV: Irregularly irregular heart rate/rhythm, 2 + b/l Edema Pulm: Nonlabored respirations on 3L NC, rhonchi bilaterally ABD: Soft, nontender, nondistended Neuro: generalized weakness, more alert Bueno in place vitals reviewed Problem List: A-fib with RVR; paroxysmal Acute on chronic systolic CHF exacerbation Acute encephalopathy; Unclear etiology UTI Hypertension RLS GERD Hyperlipidemia History of DVT Depression Gout Microcytic anemia Obesity stage 4 cancer, unknown primary Severe protein-calorie malnutrition Pressure Injury stage II, sacrum A-fib with RVR Cardiology consulted - amio, metoprolol added 10/15 once BP tolerated admitetd to ICU, with pulm consulte Patient has not been on Eliquis for past 1 week because spouse has not been able to fill her medication box appropriately heparin drip initially for cardioversion - failed transitioned to eliquis Failed cardioversion of atrial fibrillation 10/13 she will eventually need an ablation, maybe a pacemaker or a defibrillator based on her ejection fraction and her history per Dr. Georges Chest CTA - negative for pulmonary embolism; Small effusions with dependent airspace disease likely representing atelectasis on a background of pulmonary edema BP improved, tolerated lopressor IV, with improvement temporarily; start PO Acute on chronic systolic CHF exacerbation Hold lasix 10/15 per nephrology given lasix last night due to worsening SOB; now relieved. continue to hold lasix low albumin, give albumin Daily weight and strict I/O Acute encephalopathy; Unclear etiology CT head - negative Leukocytosis likely steroid-induced. Patient was reportedly on dexamethasone at home. leukocytosis improved and now worse on 10/14, likely reactive from cardioversion, possibly from UTI Blood cultures prelim no growth improved once afib rate improved as well UTI Urine culture preliminary growing 100,000 CFU/ML, 3+ yeast UA with yeast, diflucan ordered Started cefapime 10/13 for possible UTI patient presented to ED with bueno - reportedly had at SNF ID consulted Hypertension SBP low on admission, meds held RLS GERD Hyperlipidemia History of DVT Depression Continue Protonix Continue statin Continue ropinirole Continue Eliquis Continue home medication. Microcytic anemia. iron studies - iron deficiency. We will continue to monitor hemoglobin and transfuse if less than 7.0. ordered 1 uPRBC 10/13 stage 4 cancer, unknown primary initial prep for palliative radiation originally scheduled for 10/13, will need to reschedule currently unstable for transfer to cancer center for this to be done next door VTE: Eliquis Code: Full Dispo: Social service consulted. Patients spouse having difficulty setting up medications for patient family discussing /contemplating transfer to [facility] somewhere she can have treatment for cancer and for afib/chf discussed with Dr. Rincon, pt was set up for palliative radiation to start this week for her right femur. does not require inpatient treatment and can be arranged to start after discharge discussed with on 10/14, afib/chf can be managed, and is improving here, so would be considered a lateral transfer, but I'm more than happy to initiated transfer and try for their preference. He stated he would discuss with family and get back to me, he did not have his phone on him. I attempted to call pt's daughter to discuss, no answer, left voicemail pt with HR briefly up to 170, improved with lopressor; not stable for transfer at this time
[2022-10-16] MEDS: METOPROLOL TAR 25 MG TAB PO SCH ×3 (07:06→20:01)
[2022-10-16] MEDS ORDERED: POTASSIUM CL SA 10 MEQ TAB PO ONE ×2 (07:17→14:45)
[2022-10-16] MEDS: ASPIRIN 81 MG CHEWABLE TABLET PO SCH (08:29)
[2022-10-16] MEDS: APIXABAN 5 MG TABLET PO SCH ×2 (08:29→20:01)
[2022-10-16] MEDS: AMIODARONE HCL 200 MG TAB PO SCH ×2 (08:30→20:01)
[2022-10-16] MEDS: FLUCONAZOLE 100mg IVPB 100 MG/50 ML BAG IV SCH (08:30)
[2022-10-16] MEDS: CEFEPIME 1 GM in NA CHLORIDE 0.9% 100 ML IV SCH ×2 (08:30→20:02)
[2022-10-16] MEDS: PANTOPRAZOLE 40MG TABLET PO SCH ×2 (08:30→17:27)
[2022-10-16] MEDS: JUVEN PACKET PO SCH ×2 (08:31→21:00)
--- NOTE | 2022-10-16 09:28 | RAD REPORT ---
[facility] 6:43 [facility] CLINICAL HISTORY: chf, afib, eval pulm edema/effusions COMPARISON: Chest Single View dated 10/14/2022; Chest Single View dated 10/12/2022; Chest Single View dated 09/05/2022; Chest Single View dated 08/29/2022 TECHNIQUE: Portable AP view of the chest. FINDINGS: Left IJ CVC unchanged in position with catheter tip again projecting over the proximal rig ht atrium. Stable central and bibasilar patchy airspace opacities with central interstitial prominenc e. Layering bilateral small effusions. No pneumothorax. The cardiomediastinal contours are unremarkab le. IMPRESSION: Stable pattern suggestive of pulmonary edema. Superimposed pneumonia cannot be entirely excluded.
[2022-10-16] MEDS ORDERED: ALBUMIN HUMAN 25% 100 ML IV ONE ×2 (14:21→15:00)
[2022-10-16] MEDS: SOD FERRIC GLUC COMPLX/SUCROSE 250 MG in NA CHLORIDE 0.9% 250 ML IV SCH (14:30)
[2022-10-16] MEDS: SPIRONOLACTONE 25 MG TABLET PO SCH (14:55)
[2022-10-16] MEDS: FUROSEMIDE 40 MG/4 ML VIAL IV SCH (17:00)
[2022-10-16 17:15] LABS: Magnesium 1.8 mg/dL (1.6-2.4); Phosphorus 3.2 mg/dL (2.5-4.9); Potassium 4.5 mEq/L (3.5-5.1)
[2022-10-16] MEDS ORDERED: Magnesium Sulfate 2gm IVPB 2 G/50 ML BAG IV ONE (21:00)
--- NOTE | 2022-10-16 21:49 | PN ---
Date of Progress Note: 10/16/2022 Chief Complaint: Acute on chronic kidney injury secondary to cardiorenal syndrome with fluid overloa d. Subjective: Patient was taken off Lasix because of severe hypokalemia. She received replacement and spironolactone is started today as well as Lasix will be resumed. Potassium level has improved. Jadiel crabtree is getting potassium chloride by mouth to control hypokalemia. Patient has history of atrial f ibrillation with rapid ventricular response. She has congestive heart failure, and she has fluid ove rload and Lasix will be resumed to control fluid overload and congestive heart failure. Review of Systems: Patient denies fever, chills. Physical Examination: Lungs: Crackles bilaterally present. Heart: S1, S2. Abdomen: Obese, soft. Extremities: Edema present. Impression And Plan: 1.Acute on chronic kidney injury secondary to cardiorenal syndrome with fluid overload, volemia. Ov erall, has improved. Renal function is stabilizing. Plan is to resume IV Lasix and spironolactone f or volume control. Hyponatremia secondary to cardiorenal syndrome and fluid overload. Monitor sodiu m level. 2.Hypokalemia, severe, improving. Patient responded to potassium chloride replacement. 3.Congestive heart failure with exacerbation. Adjust diuretic. Monitor fluid balance. Monitor pot assium and magnesium. EB/MODL Voice ID: [id number] Report ID: [id number]
[2022-10-17] MEDS: METOPROLOL TAR 25 MG TAB PO SCH ×3 (04:40→20:46)
[2022-10-17 04:46] LABS: Hematocrit 27.6 % (36.0-45.0); MCV 82.2 fL (80-100); MPV 6.7 fL (7.6-11.3); RBC Red Blood Cell Count 3.36 M/uL (3.86-4.86)
[2022-10-17 05:12] LABS: Albumin 2.3 g/dL (3.4-5.0); Bilirubin Total 1.3 mg/dL (0.2-1.0); Magnesium 2.7 mg/dL (1.6-2.4); Protein, Total 6.9 g/dL (6.4-8.2)
[2022-10-17] MEDS: ACETAMINOPHEN 325 MG TABLET PO PRN ×2 (05:39→21:25)
[2022-10-17 05:56] LABS: Platelet Estimate ADEQ
[2022-10-17 05:57] LABS: Anisocytosis 1+; Blood Morphology Comment NOTED (NOT SEEN)
--- NOTE | 2022-10-17 06:54 | P.PN ---
Date of Service: 10/17/22 Subjective: feeling okay today increased oxygen overnight; desat to 70s yesterday HR improved this morning ROS: 10 point ROS as noted above, otherwise negative Physical Exam: GEN: oriented x3, generalized weakness HEENT: Normal conjunctiva, sclera anicteric CV: Irregularly irregular heart rate/rhythm, 2+ b/l Edema up to thighs Pulm: Nonlabored respirations on 4L NC, rhonchi bilaterally ABD: Soft, nontender, nondistended Neuro: generalized weakness, more alert Bueno in place vitals reviewed Problem List: A-fib with RVR; paroxysmal Acute on chronic systolic CHF exacerbation Acute encephalopathy; Unclear etiology UTI - Presumptive Belkis Albicans Hypertension RLS GERD Hyperlipidemia History of DVT Depression Gout Microcytic anemia Obesity stage 4 cancer, unknown primary Severe protein-calorie malnutrition Pressure Injury stage II, sacrum A-fib with RVR Cardiology consulted - amio, metoprolol added 10/15 once BP tolerated admitetd to ICU, with pulm consulte Patient has not been on Eliquis for past 1 week because spouse has not been able to fill her medication box appropriately heparin drip initially for cardioversion - failed transitioned to eliquis Failed cardioversion of atrial fibrillation 10/13 she will eventually need an ablation, maybe a pacemaker or a defibrillator based on her ejection fraction and her history per Dr. Georges Chest CTA - negative for pulmonary embolism; Small effusions with dependent airspace disease likely representing atelectasis on a background of pulmonary edema CXR 10/16 - Stable pattern suggestive of pulmonary edema. BP improved, tolerated lopressor IV, with improvement temporarily; start PO Acute on chronic systolic CHF exacerbation Hold lasix 10/15 per nephrology given lasix last night due to worsening SOB; now relieved. continue to hold lasix low albumin, given albumin Daily weight and strict I/O Acute encephalopathy; Unclear etiology CT head - negative Leukocytosis likely steroid-induced. Patient was reportedly on dexamethasone at home. leukocytosis improved and now worse on 10/14, likely reactive from cardioversion, possibly from UTI WBC trending up; 18.9 -> 22.3 - 10/17 Blood cultures prelim no growth improved once afib rate improved as well UTI - Presumptive Belkis Albicans Urine culture - Presumptive Belkis Albicans, 100,000 CFU/ML UA with yeast, continue diflucan patient presented to ED with bueno - reportedly had at [facility] ID consulted Started cefapime 10/13 for possible UTI switched to IV Meropenem 10/17 afebrile Hypertension SBP low on admission, meds held RLS GERD Hyperlipidemia History of DVT Depression Continue Protonix Continue statin Continue ropinirole Continue Eliquis Continue home medication. Microcytic anemia. iron studies - iron deficiency. We will continue to monitor hemoglobin and transfuse if less than 7.0. ordered 1 uPRBC 10/13 stage 4 cancer, unknown primary initial prep for palliative radiation originally scheduled for 10/13, will need to reschedule currently unstable for transfer to cancer center for this to be done next door VTE: Eliquis Code: Full Dispo: Social service consulted. Patients spouse having difficulty setting up medications for patient family wants to transfer to [facility] - initiated transfer 10/17
[2022-10-17] MEDS: SPIRONOLACTONE 25 MG TABLET PO SCH ×2 (09:00→09:03)
[2022-10-17] MEDS: JUVEN PACKET PO SCH ×2 (09:00→20:48)
[2022-10-17] MEDS: FUROSEMIDE 40 MG/4 ML VIAL IV SCH (09:00)
[2022-10-17] MEDS: FLUCONAZOLE 100mg IVPB 100 MG/50 ML BAG IV SCH (09:01)
[2022-10-17] MEDS: APIXABAN 5 MG TABLET PO SCH ×2 (09:03→20:38)
[2022-10-17] MEDS: PANTOPRAZOLE 40MG TABLET PO SCH ×2 (09:03→17:08)
[2022-10-17] MEDS ORDERED: CEFEPIME 1 GM/VIAL ONE (09:04)
[2022-10-17] MEDS: ASPIRIN 81 MG CHEWABLE TABLET PO SCH (09:04)
[2022-10-17] MEDS: AMIODARONE HCL 200 MG TAB PO SCH ×2 (09:04→20:46)
--- NOTE | 2022-10-17 09:22 | P.PN ---
Subjective Date of Service: 10/17/22 Chief Complaint: SOB, AMS Subjective: No new changes, No C/O voiced Patient awake in bed, on 4L NC, oriented x2. No new changes. Denies any nausea, vomiting, diarrhea. Denies any chest pain or back pain. Denies any rashes or itching. Reports mild abdominal pain. No acute events reported overnight. Physical Examination - Vital Signs Temperature: 97.3 F Blood Pressure: 104/41 Pulse: 88 Respirations: 20 Pulse Ox (%): 94 - Physical Exam General: Alert, Oriented x2, Confused HEENT: Atraumatic, Normocephalic Neck: Supple, JVD not distended Respiratory: Diminished, Crackles/rales, Other (on 4L NC) Cardiovascular: Edema (BLE nonpitting), Irregular heart rate/rhythm Gastrointestinal: Normal bowel sounds, Soft and benign, Non-distended, No tenderness Musculoskeletal: Other (Right leg with soft splint; madisyn noted) Integumentary: Pressure ulcer (sacrum stage 2) Neurological: Normal tone, Normal affect Urinary: Obando catheter (fernandez colored urine) - Studies Laboratory Data - Reviewed Microbiology Data (last 24 hrs): - Blood Culture 10/12: No growth to date - Urine Culture 10/13: presumptive Belkis albicans Imagings Data: - Reviewed Medications List Reviewed: Yes Assessment And Plan - Plan Problem List - Atrial Fibrillation with RVR - Hypertension - CHF exacerbation - Acute Encephalopathy - Microcytic Anemia - GERD - Hyperlipidemia - Depression - Stage 4 Cancer - Leukocytosis - Severe protein-calorie malnutrition - Pressure Injury stage II, sacrum UTI - UA +yeast - Urine culture 10/13: presumptive Belkis albicans - Obando from outside facility - Currently on IV Cefepime and IV fluconazole - leukocytosis (WBC 22.3); afebrile Recommendations - Cefepime discontinued --> added Merrem IV - Continue Fluconazole - Ensure adequate nutritional intake - Continue wound care to sacral pressure injury and offload pressure/turn Q2H ID will follow up and monitor patient closely. Case discussed with Ross Ibanez
[2022-10-17] MEDS: CEFEPIME 1 GM in NA CHLORIDE 0.9% 100 ML IV SCH (09:51)
[2022-10-17] MEDS: Meropenem 500 MG in NA CHLORIDE 0.9% 100 ML IV SCH ×2 (12:33→17:08)
[2022-10-17] MEDS: FUROSEMIDE 20 MG/ 2ML VIAL IV SCH ×2 (15:08→18:00)
--- NOTE | 2022-10-17 19:25 | PN ---
Date of Progress Note: 10/17/2022 She is a patient, who we have been following for atrial fibrillation. She has also a stage IV cancer of unknown primary. Has a history of congestive heart failure, severe anemia, cardiorenal syndrome. Last hemoglobin is 8.7. Creatinine is 1.29. Last rhythm is 89, atrial fibrillation. She failed t he cardioversion with 3 different shocks. Her rate is controlled. No cardiac complaint. She is sti ll on amiodarone 400 b.i.d. We need to decrease her dose to 200 b.i.d. on the . Continue Eliqui s, metoprolol, Lasix, and Aldactone. Nephrology is following. We will be available for questions if the need arises. LISBETH/EDWARD Voice ID: [id number] Report ID: [id number]
[2022-10-17] MEDS: MIDODRINE HCL 5 MG TABLET PO SCH (20:46)
[2022-10-18] MEDS: Meropenem 500 MG in NA CHLORIDE 0.9% 100 ML IV SCH ×2 (00:10→05:53)
[2022-10-18] MEDS: FUROSEMIDE 20 MG/ 2ML VIAL IV SCH ×4 (00:10→17:37)
--- NOTE | 2022-10-18 04:19 | PN ---
Date of Progress Note: 10/17/2022 Chief Complaint: [id number] kidney injury, cardiorenal syndrome, fluid overload, and respirato ry failure. Subjective: The patient is currently taking Lasix. Spironolactone was held due to borderline hyperk alemia. Potassium level stabilized and the patient remains in ICU. She has been followed by cardiol ogist. Blood pressure is fluctuating and plan is to start midodrine. Yesterday the patient received Lasix and midodrine for hypotension and fluid overload. Review of Systems: Denies fever or chills. Physical Examination: Lungs: Crackles bilaterally. Heart: S1, S2. Abdomen: Obese. Soft. Extremities: Edema present. Impression And Plan: 1.Sbupb-[id number] kidney injury secondary to cardiorenal syndrome with fluid overload. Overall, vo lemia has not improved significantly. The plan is to resume Lasix IV 20 mg every 8 hours. Spironola ctone is on hold due to borderline hyperkalemia. Monitor electrolytes including sodium level. 2.Hypokalemia, severely improved. The patient was medicated with IV drips with potassium chloride. 3.Congestive heart failure with exacerbation. Continue diuretic and monitor blood pressure closely. EB/MODL Voice ID: [id number] Report ID: [id number]
[2022-10-18] MEDS: METOPROLOL TAR 25 MG TAB PO SCH ×3 (04:52→21:10)
[2022-10-18 05:00] LABS: Absolute Lymphocytes (CBC) 1.9 K/uL (0.7-4.9); Hematocrit 26.7 % (36.0-45.0); Lymphocytes % 6.9 % (15.3-44.8); MCV 81.9 fL (80-100); MPV 6.6 fL (7.6-11.3); RBC Red Blood Cell Count 3.25 M/uL (3.86-4.86)
[2022-10-18 05:20] LABS: Albumin 2.1 g/dL (3.4-5.0); Bilirubin Total 0.7 mg/dL (0.2-1.0); Magnesium 2.2 mg/dL (1.6-2.4); Potassium 4.2 mEq/L (3.5-5.1); Protein, Total 6.4 g/dL (6.4-8.2)
[2022-10-18] MEDS: PANTOPRAZOLE 40MG TABLET PO SCH (07:44)
--- NOTE | 2022-10-18 08:13 | P.PN ---
Subjective Date of Service: 10/18/22 Chief Complaint: SOB, AMS Patient is now a little altered unresponsive tachypneic Review of Systems is unable to be obtained Physical Examination - Vital Signs Temperature: 97.1 F Blood Pressure: 116/60 Pulse: 88 Respirations: 18 Pulse Ox (%): 97 - Physical Exam General: Alert, Unresponsive Neck: Supple Respiratory: Clear to auscultation bilaterally Cardiovascular: Edema Gastrointestinal: Normal bowel sounds, Soft and benign - Studies Microbiology Data (last 24 hrs): 10/12/22 05:05 Blood - Blood Aerobic Blood Culture - Final No growth in 5 days. 10/12/22 05:05 Blood - Blood Anaerobic Blood Culture - Final No growth in 5 days. 10/12/22 04:50 Blood - Blood Aerobic Blood Culture - Final No growth in 5 days. 10/12/22 04:50 Blood - Blood Anaerobic Blood Culture - Final No growth in 5 days. Medications List Reviewed: Yes Assessment And Plan - Current Problems (Diagnosis) (1) Atrial fibrillation Current Visit: No Status: Acute Plan: Rate controlled Qualifiers: Atrial fibrillation type: unspecified Qualified Code(s): I48.91 - Unspecified atrial fibrillation (2) Congestive heart failure Current Visit: No Status: Acute Plan: Patient appears to be in CHF volume overload on the chest x-ray patient is on Lasix we will check arterial blood gases try BiPAP renal function is slightly worse patient is on Diflucan and meropenem White count has increased Qualifiers: Heart failure type: systolic Heart failure chronicity: unspecified Qualified Code(s): I50.20 - Unspecified systolic (congestive) heart failure
[2022-10-18] MEDS: ASPIRIN 81 MG CHEWABLE TABLET PO SCH ×2 (08:16→09:00)
[2022-10-18] MEDS: MIDODRINE HCL 5 MG TABLET PO SCH (08:16)
[2022-10-18] MEDS: AMIODARONE HCL 200 MG TAB PO SCH ×2 (08:16→21:11)
[2022-10-18] MEDS: APIXABAN 5 MG TABLET PO SCH ×2 (08:16→09:00)
[2022-10-18] MEDS: FLUCONAZOLE 100mg IVPB 100 MG/50 ML BAG IV SCH (08:16)
[2022-10-18] MEDS: JUVEN PACKET PO SCH ×2 (08:17→21:13)
[2022-10-18 09:08] LABS: Arterial Blood Carboxyhemoglob 1.8 % (0-1.5); Blood Gas Oxyhemoglobin 91.9 % (94-97); Blood O2 Saturation 94.6 % (92-98.5)
--- NOTE | 2022-10-18 09:59 | RAD REPORT ---
EXAM DESCRIPTION: CT - Head Brain Wo Cont - 10/18/2022 9:46 am CLINICAL HISTORY: AMS COMPARISON: Head Brain Wo Cont dated 10/12/2022; Head Brain W Cont dated 09/09/2022 TECHNIQUE: All CT scans are performed using dose optimization technique as appropriate and may inclu de automated exposure control or mA/KV adjustment according to patient size. FINDINGS: No intracranial hemorrhage, hydrocephalus or extra-axial fluid collection.No areas of brai n edema or evidence of midline shift. Chronic small vessel ischemic changes that are mild. The paranasal sinuses and mastoids are clear. The calvarium is intact. Partially imaged fusion hardwa re in the cervical spine. IMPRESSION: No acute intracranial abnormality. No significant change from prior.
--- NOTE | 2022-10-18 10:11 | P.PN ---
Date of Service: 10/18/22 Chief Complaint: SOB, AMS Subjective: No C/O voiced Patient resting in bed, on 4L nasal cannula. Lethargic but opens eyes to verbal stimulus and responds to questions. No acute events reported overnight. Physical Examination - Vital Signs Temp Pulse Resp BP Pulse Ox 97.1 F 88 18 116/60 97 10/18/22 08:13 10/18/22 08:13 10/18/22 08:13 10/18/22 08:13 10/18/22 08:13 - Physical Exam General: Alert, Oriented x2, HEENT: Atraumatic, Normocephalic Neck: Supple, JVD not distended Respiratory: Diminished, Crackles/rales, Other (on 4L NC) Cardiovascular: Edema (BLE nonpitting), Irregular heart rate/rhythm Gastrointestinal: Normal bowel sounds, Soft and benign, Non-distended, No tenderness Musculoskeletal: Other (Right leg with soft splint) Integumentary: Pressure ulcer (sacrum stage 2) Neurological: lethargic Urinary: Obando catheter (fernandez colored urine) - Studies Laboratory Data - Reviewed Microbiology Data (last 24 hrs): - Blood Culture 10/12: No growth to date - Urine Culture 10/13: presumptive Belkis albicans Imagings Data: - Reviewed Medications List Reviewed: Yes Assessment And Plan - Plan Problem List - Atrial Fibrillation with RVR - Hypertension - CHF exacerbation - Acute Encephalopathy - Microcytic Anemia - GERD - Hyperlipidemia - Depression - Stage 4 Cancer - Leukocytosis - Severe protein-calorie malnutrition - Pressure Injury stage II, sacrum UTI - Obando from outside facility - Cefepime started 10/13 for possible UTI; switched to IV Meropenem 10/17 - UA +yeast - Urine culture 10/13: presumptive Belkis albicans - Currently on IV Merrem (10/17-) and IV Fluconazole (10/13-) - Leukocytosis; afebrile Leukocytosis - WBC trending up 18.9 -> 25.6 on 10/18 - Blood Cultures 10/12: No growth Altered mental status/hepatic encephalopathy - LFTs elevated AST 141, ALT 78. Ammonia 101 - CT brain pending - On lactulose and rifaximin Recommendations - Continue IV Merrem (10/17-) - Continue Fluconazole for now (10/13-); consider switch to PO formulation if patient able to tolerate PO medication; continue to monitor LFTs - Continue wound care to sacral pressure injury and offload pressure/turn Q2H - Provide nutritional supplementation ID will follow up and monitor patient closely. Case discussed with Ross Ibanez
[2022-10-18] MEDS ORDERED: NA CHLORIDE 0.9% 500 ML ONE (10:38)
[2022-10-18 11:07] LABS: Anisocytosis 1+; Blood Morphology Comment NOTED (NOT SEEN); Platelet Estimate INCR; Polychromasia SLIGHT
[2022-10-18 11:08] LABS: Absolute Lymphocytes (CBC) 1.9 K/uL (0.7-4.9); Hematocrit 26.8 % (36.0-45.0); Lymphocytes % 7.3 % (15.3-44.8); MCV 82.7 fL (80-100); MPV 6.9 fL (7.6-11.3); RBC Red Blood Cell Count 3.24 M/uL (3.86-4.86)
[2022-10-18 11:15] LABS: Bilirubin Total 0.7 mg/dL (0.2-1.0); Protein, Total 6.3 g/dL (6.4-8.2)
[2022-10-18] MEDS: Meropenem 1,000 MG in NA CHLORIDE 0.9% 100 ML IV SCH ×2 (11:39→22:49)
--- NOTE | 2022-10-18 12:35 | P.PN ---
Subjective Date of Service: 10/18/22 Chart has been reviewed. Patient is a 77-year-old female who presented to the hospital a few days ago with shortness of breath and confusion. Patient recently had knee replacement surgery from a pathologic fracture. Patient has a history of bone cancer and has been treated at [facility]. Patient was hypoxic and was placed in the ICU on oxygen. Patient also with acute renal insufficiency. Patient was found to have atrial fibrillation with rapid ventricular response and acute CHF exacerbation. Patient was started on amiodarone drip. Patient's heart rate was improved. Patient was also given Diflucan. Patient is LFTs have been elevated and patient's mentation has not been improving. Initial CT scan was unremarkable. Cardiac status has stabilized. Oxygenation is stable as well. Echocardiogram done in August of this year showed an ejection fraction of 37% and patient was in atrial fibrillation. Patient had enlarged left atrium. Patient's renal function is gradually worsening and patient has become more more uremic. Patient is also anemic. We will go ahead and repeat CT of the brain. Ammonia level has been drawn and has come back elevated. Will start on lactulose and rifaximin. LFTs remain elevated in the setting of amiodarone and Diflucan. May need to discontinue 1 or both of these depending on patient's liver function testing. Family is requesting transfer to [facility] which has been initiated. Hopefully, we can get patient improved over the next 48 hours. Review of Systems 10-point ROS is otherwise unremarkable Physical Examination - Vital Signs Temperature: 97.1 F Blood Pressure: 132/74 Pulse: 91 Respirations: 18 Pulse Ox (%): 95 - Physical Exam General: Alert, In no apparent distress, Confused HEENT: Atraumatic, PERRLA, EOMI Neck: Supple, JVD not distended Respiratory: Diminished, Crackles/rales Cardiovascular: Regular rate/rhythm, Normal S1 S2, Systolic murmur Gastrointestinal: Normal bowel sounds, Soft and benign, Non-distended, No tenderness Musculoskeletal: No clubbing, No swelling, No tenderness Neurological: Sensation intact, Cranial nerves 3-12 intact - Studies Medications List Reviewed: Yes Assessment & Plan - Problems (Diagnosis) (1) Hepatic encephalopathy Current Visit: Yes Status: Acute (2) Hypoxic Current Visit: Yes Status: Acute (3) S/P knee replacement Current Visit: Yes Status: Acute (4) Atrial fibrillation Current Visit: No Status: Acute Qualifiers: Atrial fibrillation type: unspecified Qualified Code(s): I48.91 - Unspecified atrial fibrillation (5) COPD (chronic obstructive pulmonary disease) Current Visit: No Status: Acute Qualifiers: Emphysema type: unspecified (6) Congestive heart failure Current Visit: No Status: Acute Qualifiers: Heart failure type: systolic Heart failure chronicity: unspecified Qualified Code(s): I50.20 - Unspecified systolic (congestive) heart failure - Plan Plan: 1. We will start lactulose and rifaximin 2. CT of the brain pending 3. May need MRI to further evaluate for metastasis. 4. Continue monitoring renal function and liver function. 5. May need to discontinue Diflucan in the setting of elevated LFTs and questionable liver cirrhosis 6. Nephrology and GI consultation if available 7. Neuro consultation 8. O2 per protocol 9. Continue monitoring hemodynamics in ICU 10. Transfer initiated to [facility] - Advance Directives Does patient have a Living Will: No Does patient have a Durable POA for Healthcare: No
[2022-10-18] MEDS: PANTOPRAZOLE INJ 80 MG in NA CHLORIDE 0.9% 250 ML IV SCH ×2 (12:54→22:50)
[2022-10-18] MEDS: LACTULOSE 20 GM/30 ML UCUP PO SCH ×2 (12:54→19:54)
[2022-10-18 13:09] LABS: Anisocytosis 1+; Blood Morphology Comment NOT SEEN (NOT SEEN); Platelet Estimate INCR
[2022-10-18 13:10] LABS: Hypochromasia 1+; Poikilocytosis 1+
--- NOTE | 2022-10-18 13:17 | P.PN ---
Subjective Date of Service: 10/18/22 Chief Complaint: SOB, AMS Patient is a 77-year-old female who presented to the hospital a few days ago with shortness of breath and confusion. Patient recently had knee replacement surgery from a pathologic fracture. Patient has a history of bone cancer and has been treated at [facility]. nephrology following for [place] Today No overnight events Bun and cr trending up cont lasix will order renal US Physical exam General: awake, onfused, obese neckl lt central line CHEST; CTAB, no wheezes or rales HEART : RRR. Normal S1,2 no murmur or rub Abd: soft, Nt Ext: edema Skin : No rash #GROVER Diproportionate Bun.cr possibly due to cardiornal syndrome cont lasix will order renal US I/o #Sespsis WBC trending up cont ABx Follow culturs tansfer process started #CHF exacerbation cont lasix I/O #Elevated LFT cont to monitor #Mild hyponatremia resolved cont lasix #AFib rate controlled cont amiodarone Total time spent 45 minutes including documentation, reviewing labs and placing orders and discussing with nursing staff Physical Examination - Vital Signs Temperature: 97.1 F Blood Pressure: 132/74 Pulse: 91 Respirations: 18 Pulse Ox (%): 95 - Studies Medications List Reviewed: Yes
[2022-10-18 17:25] LABS: Hematocrit 25.9 % (36.0-45.0)
[2022-10-18] MEDS ORDERED: DIGOXIN 0.25 MG/ML AMP IV ONE (18:36)
[2022-10-18] MEDS ORDERED: ALBUMIN HUMAN 25% 50 ML IV ONE (18:38)
[2022-10-18] MEDS: Rifaximin 550 MG Tab PO SCH (21:10)
[2022-10-19] MEDS: FUROSEMIDE 20 MG/ 2ML VIAL IV SCH ×2 (00:11→05:48)
[2022-10-19] MEDS: LACTULOSE 20 GM/30 ML UCUP PO SCH ×2 (00:43→08:11)
[2022-10-19] MEDS: METOPROLOL TAR 25 MG TAB PO SCH ×4 (04:53→23:08)
[2022-10-19 06:51] LABS: Protime INR 2.34
[2022-10-19 07:10] LABS: Absolute Lymphocytes (CBC) 1.3 K/uL (0.7-4.9); Hematocrit 24.8 % (36.0-45.0); Lymphocytes % 5.6 % (15.3-44.8); MCV 83.1 fL (80-100); RBC Red Blood Cell Count 2.99 M/uL (3.86-4.86)
[2022-10-19 07:22] LABS: Bilirubin Total 0.6 mg/dL (0.2-1.0); Phosphorus 2.4 mg/dL (2.5-4.9); Potassium 2.9 mEq/L (3.5-5.1)
[2022-10-19] MEDS ORDERED: ALBUMIN HUMAN 25% 50 ML IV ONE (07:40)
[2022-10-19 08:08] LABS: Anisocytosis 2+; Basophilic Stippling 1+; Blood Morphology Comment NOTED (NOT SEEN); Macrocytosis 1+; Platelet Estimate INCR; Polychromasia SLIGHT
[2022-10-19] MEDS: ASPIRIN 81 MG CHEWABLE TABLET PO SCH (08:12)
[2022-10-19] MEDS: AMIODARONE HCL 200 MG TAB PO SCH ×2 (08:12→23:09)
[2022-10-19] MEDS: JUVEN PACKET PO SCH ×2 (08:12→21:00)
[2022-10-19] MEDS: Rifaximin 550 MG Tab PO SCH (08:12)
--- NOTE | 2022-10-19 08:16 | RAD REPORT ---
EXAM DESCRIPTION: US - Renal Ultrasound-Complete - 10/18/2022 11:41 pm CLINICAL HISTORY: LAZARA Flank pain COMPARISON: 08/31/2022 FINDINGS: Both kidneys are normal in size, shape and echotexture. Vague somewhat difficult to visual ize cortical cysts may be present left kidney measuring 15 mm. The right kidney measures 11.4 x 4.4 x 4.3 cm. No hydronephrosis, focal mass or perinephric fluid. The left kidney measures 10.9 x 6.5 x 4.6 cm. No hydronephrosis, focal mass or perinephric fluid. The urinary bladder is incompletely distended without gross abnormality seen. IMPRESSION: No concerning renal abnormality.
[2022-10-19] MEDS: POTASSIUM CL 40 MEQ in NA CHLORIDE 0.9% 500 ML IV SCH ×2 (08:39→12:10)
[2022-10-19] MEDS: FLUCONAZOLE 100mg IVPB 100 MG/50 ML BAG IV SCH (08:40)
[2022-10-19] MEDS: PANTOPRAZOLE INJ 80 MG in NA CHLORIDE 0.9% 250 ML IV SCH ×2 (08:40→20:40)
--- NOTE | 2022-10-19 09:06 | P.PN ---
Date of Service: 10/19/22 Chief Complaint: SOB, AMS Subjective: No C/O voiced Patient in bed, not in apparent distress. Lethargic. On 4L NC. Patient denies any complaints at this time. at bedside. No acute events reported overnight. requesting for patient to be transferred to [facility] where she can also receive cancer therapy; initiated, pending approval. Physical Examination - Vital Signs Temp Pulse Resp BP Pulse Ox 97 F 69 17 118/37 L 93 10/19/22 00:00 10/19/22 06:00 10/19/22 06:00 10/19/22 06:00 10/19/22 04:00 - Physical Exam General: Not in apparent distress; Lethargic, oriented x1 HEENT: Atraumatic, Normocephalic Neck: Supple, JVD not distended Respiratory: Diminished, Crackles/rales, on 4L NC Cardiovascular: Edema (BLE nonpitting), Irregular heart rate/rhythm Gastrointestinal: Normal bowel sounds, Soft and benign, Non-distended, No tenderness Musculoskeletal: Right leg with soft splint Integumentary: Pressure injury sacrum stage 2; dressing clean dry and intact. Neurological: lethargic, opens eyes to verbal stimuli Urinary: Obnado catheter (clear yellow urine) - Studies Laboratory Data - Reviewed Microbiology Data (last 24 hrs): - Blood Culture 10/12: No growth to date - Urine Culture 10/13: presumptive Belkis albicans Imagings Data: - XR Chest 10/19: "Extensive bilateral pulmonary opacities are present, slightly progressive since prior study. The heart is moderately enlarged. Left-sided venous catheter has tip in the right atrium.Aortic atherosclerosis." - CT Brain 10/18: No acute intracranial abnormality Medications List Reviewed: Yes Assessment And Plan Problem List - Atrial Fibrillation with RVR - Hypertension - CHF exacerbation - Acute Encephalopathy - Microcytic Anemia - GERD - Hyperlipidemia - Depression - Stage 4 Cancer - UTI - Leukocytosis - Severe protein-calorie malnutrition - Pressure Injury stage II, sacrum UTI / Leukocytosis - Obando from outside facility - Cefepime started 10/13 for UTI; switched to IV Meropenem 10/17 - UA +yeast - Urine culture 10/13: presumptive Belkis albicans - Previously on IV Fluconazole (10/13-10/19) - afebrile - WBC remains elevated, trending down slightly 25.6 -> 23.1 on 10/19 - Blood Cultures 10/12: No growth - Currently on IV Merrem (started 10/17) - Nephrology, GI and Pulmonology on case Recommendations - Continue IV Merrem for now (10/17-) - Pressure Injury sacrum: continue wound care and offload pressure/turn Q2H - Continue supportive care and nutritional supplementation - Monitor WBC and fever trends ID will follow up and monitor patient closely. Case discussed with Ross Ibanez
[2022-10-19] MEDS ORDERED: NA CHLORIDE 0.9% 250 ML ONE (09:37)
[2022-10-19] MEDS: Meropenem 1,000 MG in NA CHLORIDE 0.9% 100 ML IV SCH ×2 (10:06→23:28)
--- NOTE | 2022-10-19 10:54 | RAD REPORT ---
EXAM DESCRIPTION: RAD - Chest Single View - 10/19/2022 10:45 am CLINICAL HISTORY: fluid overload Chest pain. COMPARISON: Chest Single View dated 10/16/2022; Chest Single View dated 10/14/2022; Chest Single View dated 10/12/2022; Chest Single View dated 09/05/2022 FINDINGS: Portable technique limits examination quality. Extensive bilateral pulmonary opacities are present, slightly progressive since prior study. The hear t is moderately enlarged. Left-sided venous catheter has tip in the right atrium.Aortic atheroscleros is. IMPRESSION: Slight worsening in lung aeration seen since 10/16/2022 study.
[2022-10-19] MEDS ORDERED: WATER FOR INJ STERILE IV SCH ×2 (11:00→14:00)
[2022-10-19] MEDS ORDERED: FUROSEMIDE IV SCH ×2 (11:00→14:00)
[2022-10-19] MEDS: ALBUMIN HUMAN 25% 12.5 GM, FUROSEMIDE 100 MG in NA CHLORIDE 0.9% 40 ML IV SCH ×3 (12:11→20:42)
--- NOTE | 2022-10-19 12:43 | PN ---
Date of Progress Note: 10/19/2022 Subjective: The patient was admitted with acute kidney injury secondary to cardiorenal syndrome and hyponatremia. The patient has been on diuresis. Physical Examination: Vital Signs: Blood pressure 118/37, pulse of 69, afebrile. Chest: Crackles bilateral. Heart: S1, S2. Systolic murmur. Abdomen: Soft, nontender. Extremities: +2 edema. Neuro: Alert. No focality. The patient had urine output of 2800, negative of 1700. Laboratory Data: WBC 23.1, H and H 7.5/24.8, platelets 512. Sodium 143, potassium 2.9, bicarb 30, BUN 74, creatinine 1.2, GFR of 45, calcium 9.6, phosphorus 2.4, magnesium of 2, albumin of 2, corrected calcium is 11.2. Current Medications: The patient on include; 1. Meropenem 1 g b.i.d. 2. IV iron. 3. Eliquis. 4. Metoprolol. 5. Tylenol. 6. Lasix 20 q.i.d. 7. Breathing treatment. 8. Pantoprazole. 9. KCl. Assessment And Plan: 1. Acute kidney injury secondary to cardiorenal, still on the over volume side. I am going to go ahead and increase Lasix to 40 q.i.d. We will get chest x-ray for better evaluation of the fluid status for the patient and we will monitor. The patient is still on the over volume side. I am going to go ahead and switch the patient to Lasix drip to avoid any low blood pressure. 2. Hyponatremia, dilutional. We will continue diuresis. 3. Hypokalemia. We will supplement. 4. Hypophosphatemia. Given the acute kidney injury, I am going to hold on the supplement for the time being. 5. Congestive heart failure with exacerbation, ejection fraction of 37%. We will try to optimize fluid status for the patient and we will follow up. Time spent examining the patient [id number], reviewing data, lab and radiology, placing order, discussing the case with the patient, discussing the case with the felt hat steamer including nurse more than 35 minutes ANGELICA Voice ID: [id number] Report ID: [id number]
--- NOTE | 2022-10-19 15:58 | P.PN ---
Date of Service: 10/19/22 Subjective Patient with no significant changes. Mentation is waxing and waning. Patient remains with anemia. Consulted gastroenterology for concern for melanotic stools but patient has not had them today. Her hemoglobin did decrease. Patient also with pathologic fracture status post repair. Patient's long-term prognosis is poor. Addressed with family regarding her prognosis. They are still wanting her transfer to a tertiary care facility for further evaluation. No aggressive intervention would be obtained at this time as patient is too ill for an ablation. She is not strong enough for radiation. I think the only setting that we would do radiation at this time is under palliative care. Her mentation is very poor. In light of the fact that her mentation is so poor and she appears to have multiorgan issues she is not a suitable candidate for any oncologic treatment at this time. Will discuss with family regarding her further options going forward. Review of Systems 10-point ROS is otherwise unremarkable Physical Examination - Vital Signs reviewed - Physical Exam General: Alert, In no apparent distress, Confused Respiratory: Diminished, Crackles/rales Cardiovascular: Regular rate/rhythm, Normal S1 S2, Systolic murmur Gastrointestinal: Normal bowel sounds, Soft and benign, Non-distended, No tenderness Musculoskeletal: No clubbing, No swelling, No tenderness Neurological: No focal deficits Assessment & Plan - Problems (Diagnosis) (1) Hepatic encephalopathy Current Visit: Yes Status: Acute (2) Hypoxic Current Visit: Yes Status: Acute (3) S/P knee replacement Current Visit: Yes Status: Acute (4) Atrial fibrillation Current Visit: No Status: Acute Atrial fibrillation type: unspecified Qualified Code(s): I48.91 - Unspecified atrial fibrillation (5) COPD (chronic obstructive pulmonary disease) Current Visit: No Status: Acute Emphysema type: unspecified (6) Congestive heart failure Current Visit: No Status: Acute Heart failure type: systolic Heart failure chronicity: unspecified Qualified Code(s): I50.20 - Unspecified systolic (congestive) heart failure (7) Anemia, acute blood loss Current Visit: Yes Status: Acute (8) Metastatic bone cancer Current Visit: Yes Status: Acute - Plan Plan: 1. Continue lactulose and rifaximin 2. CT of the brain with no mets identified 3. Rate controlled; continue amiodarone and lopressor; hold eliquis 4. Continue monitoring renal function and liver function. 5. DC Diflucan-completed 7 days 6. Nephrology and GI consultation appreciated; prognosis is poor 7. Neuro consultation as mentation is not improving; multifactorial 8. O2 per protocol; more hypoxic 9. Continue monitoring hemodynamics in ICU 10. Transfer initiated to [facility]-Dr. Rodriguez accepting - Advance Directives Does patient have a Living Will: No Does patient have a Durable POA for Healthcare: No
[2022-10-19] MEDS: SOD FERRIC GLUC COMPLX/SUCROSE 250 MG in NA CHLORIDE 0.9% 250 ML IV SCH (16:03)
[2022-10-19] MEDS: ACETAMINOPHEN 325 MG TABLET PO PRN (23:11)
[2022-10-20] MEDS: ALBUMIN HUMAN 25% 12.5 GM, FUROSEMIDE 100 MG in NA CHLORIDE 0.9% 40 ML IV SCH ×5 (01:44→23:20)
[2022-10-20] MEDS: HYDROCODONE/APAP 10/325 TAB PO PRN ×3 (01:51→20:29)
[2022-10-20] MEDS: METOPROLOL TAR 25 MG TAB PO SCH ×3 (05:07→20:18)
[2022-10-20 06:30] LABS: Absolute Lymphocytes (CBC) 1.2 K/uL (0.7-4.9); Hematocrit 25.9 % (36.0-45.0); Lymphocytes % 5.5 % (15.3-44.8); MCV 84.4 fL (80-100); MPV 6.9 fL (7.6-11.3); RBC Red Blood Cell Count 3.07 M/uL (3.86-4.86)
[2022-10-20] MEDS: PANTOPRAZOLE INJ 80 MG in NA CHLORIDE 0.9% 250 ML IV SCH ×2 (06:43→15:40)
[2022-10-20 07:42] LABS: Albumin 2.5 g/dL (3.4-5.0); Bilirubin Total 0.9 mg/dL (0.2-1.0); Magnesium 1.7 mg/dL (1.6-2.4); Phosphorus 2.4 mg/dL (2.5-4.9); Potassium 2.9 mEq/L (3.5-5.1); Protein, Total 6.2 g/dL (6.4-8.2)
[2022-10-20 07:51] LABS: White Blood Cell Scan OK (OK)
[2022-10-20 07:52] LABS: Anisocytosis 2+; Blood Morphology Comment NOTED (NOT SEEN); Platelet Estimate ADEQ
--- NOTE | 2022-10-20 08:30 | RAD REPORT ---
EXAM DESCRIPTION: RAD - Chest Single View - 10/20/2022 5:13 am CLINICAL HISTORY: pneumonia Chest pain. COMPARISON: Chest Single View dated 10/19/2022; Chest Single View dated 10/16/2022; Chest Single View dated 10/14/2022; Chest Single View dated 10/12/2022 FINDINGS: Portable technique limits examination quality. Moderately severe bilateral pulmonary opacities, greater on the right, appear slightly improved since prior study. The heart is enlarged with aortic atherosclerosis. Left-sided venous catheter tip in ri ght atrium. IMPRESSION: Fractional improvement in lung aeration since yesterday's study.
[2022-10-20] MEDS: APIXABAN 5 MG TABLET PO SCH ×2 (09:00→21:00)
[2022-10-20] MEDS: ASPIRIN 81 MG CHEWABLE TABLET PO SCH (09:07)
[2022-10-20] MEDS: AMIODARONE HCL 200 MG TAB PO SCH ×2 (09:07→20:28)
[2022-10-20] MEDS: JUVEN PACKET PO SCH ×2 (09:08→21:00)
--- NOTE | 2022-10-20 09:14 | P.PN ---
Date of Service: 10/20/22 Chief Complaint: SOB, AMS Subjective: No C/O voiced Patient is seen in ICU, not in apparent distress at this time, on 4L NC, awake and oriented x2. Denies any complaints at this time. Currently on protonix drip and lasix drip. No acute events reported overnight. Physical Examination - Vital Signs Temp Pulse Resp BP Pulse Ox 96.2 F L 82 19 116/45 L 92 10/20/22 04:00 10/20/22 06:00 10/20/22 06:00 10/20/22 06:00 10/20/22 06:00 - Physical Exam General: Not in apparent distress; Lethargic, generalized weakness, oriented x2 HEENT: Atraumatic, Normocephalic Neck: Supple, JVD not distended Respiratory: Diminished, Crackles/rales, on 4L NC Cardiovascular: Edema (BLE nonpitting), Irregular heart rate/rhythm Gastrointestinal: Normal bowel sounds, Soft and benign, Non-distended, No tenderness Musculoskeletal: Right leg with soft splint Integumentary: Pressure injury sacrum stage 2; dressing clean dry and intact. Neurological: lethargic, opens eyes to verbal stimuli Urinary: Obando catheter (clear yellow urine) - Studies Laboratory Data - Reviewed Microbiology Data (last 24 hrs): - Blood Culture 10/12: No growth to date - Urine Culture 10/13: presumptive Belkis albicans Imagings Data: - CT Brain 10/18: No acute intracranial abnormality - Renal Ultrasound 10/18: " No concerning renal abnormality." - XR Chest 10/19: "Extensive bilateral pulmonary opacities are present, slightly progressive since prior study. The heart is moderately enlarged. Left-sided venous catheter has tip in the right atrium.Aortic atherosclerosis." - XR Chest 10/20: "Moderately severe bilateral pulmonary opacities, greater on the right, appear slightly improved since prior study. The heart is enlarged with aortic atherosclerosis. Left-sided venous catheter tip in right atrium. IMPRESSION: Fractional improvement in lung aeration since yesterday's study." Medications List Reviewed: Yes Assessment And Plan Problem List - Atrial Fibrillation with RVR - Hypertension - CHF exacerbation - Acute Encephalopathy - Microcytic Anemia - GERD - Hyperlipidemia - Depression - Stage 4 Cancer - UTI - Leukocytosis - Severe protein-calorie malnutrition - Pressure Injury stage II, sacrum UTI / Leukocytosis - Obando from outside facility - Cefepime started 10/13 for UTI; switched to IV Meropenem 10/17 - UA +yeast - Urine culture 10/13: presumptive Belkis albicans - Previously on IV Fluconazole (10/13-10/19) - Blood Cultures 10/12: No growth - afebrile - WBC remains elevated, trending down slightly 23.1 -> 21.7 - on 10/20 - Currently on IV Merrem (started 10/17) - Nephrology, GI and Pulmonology on case Recommendations - Continue IV Merrem for now (10/17-) - Pressure Injury sacrum: continue wound care and offload pressure/turn Q2H - Continue supportive care and nutritional supplementation - Monitor WBC and fever trends ID will follow up and monitor patient closely. Case discussed with Ross Ibanez
[2022-10-20] MEDS ORDERED: POTASSIUM 25 MEQ EFFERV TAB PO ONE (10:03)
[2022-10-20] MEDS ORDERED: Magnesium Sulfate 2gm IVPB 2 G/50 ML BAG IV ONE (10:05)
[2022-10-20] MEDS: SPIRONOLACTONE 25 MG TABLET PO SCH (10:17)
[2022-10-20] MEDS: KCL 20 MEQ/100 mL IVPB 20 MEQ/100 ML BAG IV SCH ×2 (10:19→12:07)
[2022-10-20] MEDS: Meropenem 1,000 MG in NA CHLORIDE 0.9% 100 ML IV SCH (12:04)
--- NOTE | 2022-10-20 12:04 | PN ---
Date of Progress Note: 10/20/2022 Subjective: The patient was admitted to the hospital with CHF exacerbation, acute kidney injury. The patient yesterday was over volume, received transfusion. The patient was started on Lasix drip. The patient responded very well. Physical Examination: Vital Signs: Blood pressure 114/41, pulse of 88. The patient had good urine output of 4300, negative of 900. Chest: Crackles bilateral. Heart: S1, S2. Systolic murmur. Abdomen: Morbidly obese. Could not appreciate any organomegaly. Extremities: +1 edema. Neurologic: Alert. No focality. Laboratory Data: Hemoglobin 7.9. Sodium 144, potassium 2.9, bicarb 32, BUN 64, creatinine 1, GFR of 56, calcium 9.4, phosphorus 2.4, magnesium 1.7. Iron saturation of 12. Albumin 2.5. Corrected calcium is 10.6. Current Medications: The patient on include Lasix drip at 10 mg per hour, meropenem 1 g t.i.d., IV iron, Eliquis, amiodarone, metoprolol 25 t.i.d., Tylenol. Assessment And Plan: 1. Acute kidney injury secondary to cardiorenal, on the recovery phase, still over volume. I am going to continue the Lasix drip for another day. We will add back her spironolactone and we will monitor the patient. 2. Hypokalemia. We will supplement potassium and magnesium today, and we will follow up. 3. Hypophosphatemia. I do not see the need for supplement right now. 4. Hypomagnesemia. We will supplement. 5. Hypertension. We will keep utilizing blood pressure for more diuresis. 6. Congestive heart failure with exacerbation. Continue to optimize the fluid status with Lasix drip. 7. Hyponatremia, dilutional. Continue diuresis. I am going to send for cortisol and TSH for evaluation for other reason. Time spent examining the patient [id number], reviewing data, lab and radiology, placing order, discussing the case with the patient, discussing the case with the valve steamer including nurse more than 35 minutes ANGELICA Voice ID: [id number] Report ID: [id number] ROSS
[2022-10-20 15:45] LABS: UR PROTEIN 45.3 mg/dL (<11.9)
[2022-10-20 16:11] LABS: UR CREAT < 18.0 mg/dL (20-320)
--- NOTE | 2022-10-20 17:02 | P.PN ---
Date of Service: 10/20/22 Subjective Patient is doing well with no new complaints. Awaiting for transfer to [facility]. I spoke to family the fact that she has bone cancer along with a myopathy, elevated LFTs and some renal insufficiency. Prognosis long- term is poor. She is also confused and feel they would consider any kind of chemotherapy at this point. She may be able to get palliative radiation, but I think her best option would be to consider hospice care at this point. Her children will be here tomorrow and we will talk with them in more detail. Physical Examination - Vital Signs reviewed - Physical Exam General: Alert, In no apparent distress, Confused Respiratory: Diminished, Crackles/rales Cardiovascular: Regular rate/rhythm, Normal S1 S2, Systolic murmur Gastrointestinal: Normal bowel sounds, Soft and benign, Non-distended, No tenderness Musculoskeletal: Lower extremity edema Neurological: No focal deficits Assessment & Plan - Problems (Diagnosis) (1) Hepatic encephalopathy Current Visit: Yes Status: Acute (2) Hypoxic Current Visit: Yes Status: Acute (3) S/P knee replacement Current Visit: Yes Status: Acute (4) Atrial fibrillation Current Visit: No Status: Acute Atrial fibrillation type: unspecified Qualified Code(s): I48.91 - Unspecified atrial fibrillation (5) COPD (chronic obstructive pulmonary disease) Current Visit: No Status: Acute Emphysema type: unspecified (6) Congestive heart failure Current Visit: No Status: Acute Heart failure type: systolic Heart failure chronicity: unspecified Qualified Code(s): I50.20 - Unspecified systolic (congestive) heart failure (7) Anemia, acute blood loss Current Visit: Yes Status: Acute (8) Metastatic bone cancer Current Visit: Yes Status: Acute - Plan Plan: 1. Still some confusion but overall she is doing better. Continue monitoring neurologic status. 2. Continue with pain control 3. Pain is controlled. Continue with amiodarone and Lopressor 4. Continue monitoring renal function and liver function. 5. Continue with diuresing 6. Nephrology and GI consultation appreciated; lobsterman prognosis is poor 7. Confusion is probably multifactorial 8. O2 per protocol; stable 9. Continue monitoring hemodynamics in ICU 10. Transfer initiated to [facility]-Dr. Rodriguez accepting - Advance Directives Does patient have a Living Will: No Does patient have a Durable POA for Healthcare: No
[2022-10-20 17:42] LABS: Magnesium 1.9 mg/dL (1.6-2.4); Potassium 3.8 mEq/L (3.5-5.1)
[2022-10-20] MEDS: ENSURE MAX PROTEIN 330 ML LIQUID PO SCH (21:00)
[2022-10-21] MEDS: PANTOPRAZOLE INJ 80 MG in NA CHLORIDE 0.9% 250 ML IV SCH ×3 (01:00→22:52)
[2022-10-21] MEDS: ALBUMIN HUMAN 25% 12.5 GM, FUROSEMIDE 100 MG in NA CHLORIDE 0.9% 40 ML IV SCH ×4 (04:49→19:42)
[2022-10-21] MEDS: METOPROLOL TAR 25 MG TAB PO SCH ×3 (05:00→20:20)
[2022-10-21 05:09] LABS: Absolute Lymphocytes (CBC) 1.3 K/uL (0.7-4.9); Hematocrit 25.4 % (36.0-45.0); Lymphocytes % 5.6 % (15.3-44.8); MCV 84.8 fL (80-100); MPV 7.1 fL (7.6-11.3)
[2022-10-21 05:38] LABS: Magnesium 2.1 mg/dL (1.6-2.4); Phosphorus 2.1 mg/dL (2.5-4.9); Potassium 3.2 mEq/L (3.5-5.1); Thyroid Stimulating Hormone 1.94 uIU/mL (0.358-3.740)
[2022-10-21] MEDS: POTASS/SODIUM PHOSPHATE 1 PKT POWD.PACK PO SCH ×3 (06:11→11:12)
[2022-10-21] MEDS: KCL 20 MEQ/100 mL IVPB 20 MEQ/100 ML BAG IV SCH ×4 (06:11→21:28)
[2022-10-21] MEDS: Meropenem 1,000 MG in NA CHLORIDE 0.9% 100 ML IV SCH ×5 (06:42→21:28)
--- NOTE | 2022-10-21 08:39 | P.PN ---
Date of Service: 10/21/22 Chief Complaint: SOB, AMS Subjective: No C/O voiced No new changes. Pt not in apparent distress at this time, remains on 4L NC, oriented x1-2. No new complaints. No acute events reported overnight. Pending transfer to [facility]. Long-term prognosis poor, family to have discussion today Physical Examination - Vital Signs. Temp Pulse Resp BP Pulse Ox 97.7 F 101 H 19 129/59 L 96 10/21/22 04:00 10/21/22 06:00 10/21/22 06:00 10/21/22 06:00 10/21/22 06:00 - Physical Exam General: Not in apparent distress; Lethargic, generalized weakness, oriented x2 HEENT: Atraumatic, Normocephalic Neck: Supple, JVD not distended Respiratory: Diminished, Crackles/rales, on 4L NC Cardiovascular: Edema (BLE nonpitting), Irregular heart rate/rhythm Gastrointestinal: Normal bowel sounds, Soft and benign, Non-distended, No tenderness Musculoskeletal: Right leg with soft splint Integumentary: Pressure injury sacrum stage 2; dressing clean dry and intact. Neurological: lethargic, opens eyes to verbal stimuli Urinary: Obando catheter (clear yellow urine) - Studies Laboratory Data - Reviewed Microbiology Data (last 24 hrs): - Blood Culture 10/12: No growth to date - Urine Culture 10/13: presumptive Belkis albicans Imagings Data: - CT Brain 10/18: No acute intracranial abnormality - Renal Ultrasound 10/18: " No concerning renal abnormality." - XR Chest 10/19: "Extensive bilateral pulmonary opacities are present, slightly progressive since prior study. The heart is moderately enlarged. Left-sided venous catheter has tip in the right atrium.Aortic atherosclerosis." - XR Chest 10/20: "Moderately severe bilateral pulmonary opacities, greater on the right, appear slightly improved since prior study. The heart is enlarged with aortic atherosclerosis. Left-sided venous catheter tip in right atrium. IMPRESSION: Fractional improvement in lung aeration since yesterday's study." Medications List Reviewed: Yes Assessment And Plan Problem List - Atrial Fibrillation with RVR - Hypertension - CHF exacerbation - Acute Encephalopathy - Microcytic Anemia - GERD - Hyperlipidemia - Depression - Pathological fracture or femur, bone cancer - UTI - Leukocytosis - Severe protein-calorie malnutrition - Pressure Injury stage II, sacrum Urinary Tract Infection - Obando from outside facility - Cefepime started empirically 10/13 for UTI - UA +yeast - Urine culture 10/13: presumptive Belkis albicans - Previously on IV Fluconazole (10/13-10/19) - Leukocytosis (WBC fluctuating, remains elevated 23) - Afebrile - Blood Cultures 10/12: No growth - Currently on IV Merrem (10/17-) - Black stools reported 10/19 & 10/20, GI was consulted, placed on protonix drip - Pathological fracture of femur right leg, bone cancer. Family wants patient to be transferred to [facility] for cancer treatment, initiated 10/17, pending. - Nephrology, GI, Cardiology, Pulmonology on case Recommendations - Continue IV Merrem for now (started 10/17-) - Pressure Injury sacrum: continue wound care and offload pressure/turn Q2H - Continue supportive care and nutritional supplementation - Pending transfer to [facility] - Long-term prognosis poor, Family to have discussion today ID will follow up and monitor patient closely. Case discussed with Ross Ibanez
[2022-10-21] MEDS: APIXABAN 5 MG TABLET PO SCH ×2 (08:47→20:00)
[2022-10-21] MEDS: AMIODARONE HCL 200 MG TAB PO SCH ×2 (08:47→20:00)
[2022-10-21] MEDS: SPIRONOLACTONE 25 MG TABLET PO SCH (08:48)
[2022-10-21] MEDS: ASPIRIN 81 MG CHEWABLE TABLET PO SCH (08:48)
[2022-10-21] MEDS: ENSURE MAX PROTEIN 330 ML LIQUID PO SCH ×2 (09:00→20:20)
[2022-10-21] MEDS: JUVEN PACKET PO SCH ×2 (09:00→20:19)
[2022-10-21] MEDS: HYDROCODONE/APAP 10/325 TAB PO PRN ×2 (11:57→20:47)
--- NOTE | 2022-10-21 13:28 | P.PN ---
Subjective Date of Service: 10/21/22 Chief Complaint: SOB, AMS Subjective: Other (bedbound) Physical Examination - Vital Signs Temperature: 97.7 F Blood Pressure: 125/64 Pulse: 105 Respirations: 19 Pulse Ox (%): 92 - Physical Exam General: Other (chronically ill-appearing) HEENT: Atraumatic, Normocephalic Neck: Supple Respiratory: Other (symmetric chest expansion) Cardiovascular: No rubs, No murmurs Gastrointestinal: Soft and benign, No guarding Musculoskeletal: No clubbing Integumentary: No warmth Neurological: Normal tone Urinary: Other (no bladder distention) External genitalia: Deferred Rectal: Deferred - Studies Medications List Reviewed: Yes Assessment And Plan - Plan error
[2022-10-21] MEDS ORDERED: FENTANYL CITR 100 MCG/2 ML IV ONE (13:48)
[2022-10-22] MEDS: ALBUMIN HUMAN 25% 12.5 GM, FUROSEMIDE 100 MG in NA CHLORIDE 0.9% 40 ML IV SCH ×4 (01:52→15:00)
[2022-10-22 04:51] LABS: Absolute Lymphocytes (CBC) 1.9 K/uL (0.7-4.9); Hematocrit 25.7 % (36.0-45.0); Lymphocytes % 7.7 % (15.3-44.8); MCV 85.4 fL (80-100); MPV 7.1 fL (7.6-11.3); RBC Red Blood Cell Count 3.01 M/uL (3.86-4.86)
[2022-10-22] MEDS: METOPROLOL TAR 25 MG TAB PO SCH ×2 (05:00→13:55)
[2022-10-22] MEDS: Meropenem 1,000 MG in NA CHLORIDE 0.9% 100 ML IV SCH ×2 (05:02→13:55)
[2022-10-22 05:17] VITALS: BMI 34.5
[2022-10-22 05:17] LABS: Albumin 3.2 g/dL (3.4-5.0); Magnesium 1.8 mg/dL (1.6-2.4); Potassium 3.2 mEq/L (3.5-5.1); Protein, Total 6.8 g/dL (6.4-8.2)
[2022-10-22] MEDS: KCL 20 MEQ/100 mL IVPB 20 MEQ/100 ML BAG IV SCH ×2 (05:43→08:00)
[2022-10-22] MEDS: HYDROCODONE/APAP 10/325 TAB PO PRN (06:27)
[2022-10-22] MEDS ORDERED: MAGNESIUM SULFATE 1 gm IVPB 1 GM/100 ML BAG IV ONE (08:03)
[2022-10-22] MEDS ORDERED: POTASSIUM PHOS IN 0.9 % NACL 15 MMOL/250 ML BAG IV ONE (08:07)
[2022-10-22] MEDS: SPIRONOLACTONE 25 MG TABLET PO SCH (08:15)
[2022-10-22] MEDS: AMIODARONE HCL 200 MG TAB PO SCH (08:15)
[2022-10-22] MEDS ORDERED: SODIUM CHLORIDE 0.9% 10ML INJ IV PRN (08:24)
[2022-10-22] MEDS: APIXABAN 5 MG TABLET PO SCH (08:28)
[2022-10-22] MEDS: ASPIRIN 81 MG CHEWABLE TABLET PO SCH (08:28)
[2022-10-22] MEDS: PANTOPRAZOLE INJ 80 MG in NA CHLORIDE 0.9% 250 ML IV SCH (09:00)
[2022-10-22] MEDS ORDERED: PANTOPRAZOLE 40 MG INJ IVP SCH (09:00)
[2022-10-22] MEDS: ENSURE MAX PROTEIN 330 ML LIQUID PO SCH (09:00)
[2022-10-22] MEDS ORDERED: FUROSEMIDE 40 MG/4 ML VIAL IV SCH (09:00)
[2022-10-22] MEDS: JUVEN PACKET PO SCH (09:00)
--- NOTE | 2022-10-22 09:04 | RAD REPORT ---
EXAM DESCRIPTION: RAD - Chest Single View - 10/22/2022 8:47 am CLINICAL HISTORY: hypoxic COMPARISON: Chest Single View dated 10/20/2022; Chest Single View dated 10/19/2022; Chest Single View dated 10/16/2022; Chest Single View dated 10/14/2022; Chest For Pe Angio dated 10/12/2022 FINDINGS: Lines: None. Lungs: Widespread interstitial and airspace disease that is unchanged from 10/20/2022. Pleural: Small effusions. Cardiac: Cardiomegaly. Mediastinum: Within normal limits. Bones: No acute fractures. Bilateral shoulder arthroplasty. Other: None IMPRESSION: Pulmonary edema without significant interval change.
[2022-10-22 09:10] LABS: Arterial Blood Carboxyhemoglob 2.3 % (0-1.5); Blood Gas Oxyhemoglobin 89.7 % (94-97)
--- NOTE | 2022-10-22 09:51 | P.PN ---
Subjective Date of Service: 10/22/22 Chief Complaint: SOB, AMS Patient has episodes of desaturation he is on nonrebreather alert minimally responsive Review of Systems is unable to be obtained Physical Examination - Vital Signs Temperature: 97.8 F Blood Pressure: 129/53 Pulse: 86 Respirations: 19 Pulse Ox (%): 92 - Physical Exam General: Alert, Delirious Respiratory: Clear to auscultation bilaterally, Diminished Cardiovascular: Regular rate/rhythm, Normal S1 S2, Edema - Studies Medications List Reviewed: Yes Assessment And Plan - Current Problems (Diagnosis) (1) Atrial fibrillation Current Visit: No Status: Acute Plan: Rate controlled Qualifiers: Atrial fibrillation type: unspecified Qualified Code(s): I48.91 - Unspecified atrial fibrillation (2) Congestive heart failure Current Visit: No Status: Acute Plan: Patient is still experiencing desaturation she has a volume overload on the chest x-ray White count is elevated may have an underlying pneumonia patient is on meropenem add vancomycin possibility of fungal infection add Diflucan patient is on Lasix albumin drip have ordered blood cultures been 1 3 glycan levels Qualifiers: Heart failure type: systolic Heart failure chronicity: unspecified Qualified Code(s): I50.20 - Unspecified systolic (congestive) heart failure
[2022-10-22] MEDS ORDERED: VANCOMYCIN 1 GM in NA CHLORIDE 0.9% 250 ML IVPB SCH (10:00)
[2022-10-22] MEDS ORDERED: FLUCONAZOLE 400 MG IVPB 400 MG/200 ML BAG IV SCH (10:00)
[2022-10-22] MEDS ORDERED: VANCOMYCIN 2 GM in NA CHLORIDE 0.9% 500 ML IVPB ONE (11:00)
[2022-10-22 11:32] LABS: Specific Gravity 1.019 (1.005-1.030); Transitional Epithelial <5 /HPF (None Seen); Urine Bacteria None Seen /HPF (<20); Urine Bilirubin NEGATIVE (Negative); Urine Blood 3+ (OVER) (Negative); Urine Clarity Turbid (Clear); Urine Color Yellow (Yellow); Urine Glucose NEGATIVE (Negative); Urine Mucus Slight /HPF (None Seen); Urine Protein 1+ (Negative); Urine RBC >50 /HPF (None Seen); Urine Urobilinogen Normal (Normal)
[2022-10-22 12:10] VITALS: O2SAT 99
--- NOTE | 2022-10-22 13:44 | P.PN ---
Subjective Date of Service: 10/22/22 Chief Complaint: SOB, AMS Subjective: No new changes Physical Examination - Vital Signs Temperature: 97.1 F Blood Pressure: 130/62 Pulse: 85 Respirations: 21 Pulse Ox (%): 99 - Physical Exam General: Other (chronically ill-appearing) HEENT: Atraumatic, Normocephalic Neck: Supple Respiratory: Other (symmetric chest expansion) Cardiovascular: No rubs, No murmurs Gastrointestinal: Soft and benign, No guarding Musculoskeletal: No clubbing Integumentary: No warmth Neurological: Normal tone Urinary: Other (no bladder distention) External genitalia: Deferred Rectal: Deferred - Studies Medications List Reviewed: Yes Assessment And Plan - Plan 1. Acute kidney injury on chronic kidney disease secondary to cardiorenal, over volume with respiratory symptoms. SCr improved to 0.9. Continue Lasix IV twice a day + [place] po daily same dose. [place] by mouth fluid intake. 2. Hyponatremia. Improved. [place] by mouth fluid intake. 3. Hypokalemia. KCl repletion today. Started on spironolactone. 4. Congestive heart failure with exacerbation. Urine chemistry on 10/14/2022 showed adequate natriuresis. Continue Lasix IV twice a day + dalton po daily same dosing. 5. Atrial fibrillation with rapid ventricular response. Per Cardiology. 6. Anemia. Monitor CBC 7. Dispo. Transfer to [facility] for further cardiac eval/mngt.
--- NOTE | 2022-10-22 14:13 | P.PN ---
Date of Service: 10/21/22 Subjective Spoke with family including patient's and daughter. They are wanting us to try different hospitals. We tried [facility] with little success. We will go ahead and touch base with [facility]. May need to try a different friend formerly [facility] hospitals in the [place] area. Otherwise, no significant clinical changes. Heart rate is controlled. Physical Examination - Vital Signs reviewed - Physical Exam General: Alert, In no apparent distress, Confused Respiratory: Diminished, Crackles/rales Cardiovascular: Regular rate/rhythm, Normal S1 S2, Systolic murmur Gastrointestinal: Normal bowel sounds, Soft and benign, Non-distended, No tenderness Musculoskeletal: Lower extremity edema Neurological: No focal deficits: Generalized weakness Assessment & Plan - Problems (Diagnosis) (1) Hepatic encephalopathy Current Visit: Yes Status: Acute (2) Hypoxic Current Visit: Yes Status: Acute (3) S/P knee replacement Current Visit: Yes Status: Acute (4) Atrial fibrillation Current Visit: No Status: Acute Atrial fibrillation type: unspecified Qualified Code(s): I48.91 - Unspecified atrial fibrillation (5) COPD (chronic obstructive pulmonary disease) Current Visit: No Status: Acute Emphysema type: unspecified (6) Congestive heart failure Current Visit: No Status: Acute Heart failure type: systolic Heart failure chronicity: unspecified Qualified Code(s): I50.20 - Unspecified systolic (congestive) heart failure (7) Anemia, acute blood loss Current Visit: Yes Status: Acute (8) Metastatic bone cancer status post right femur fracture with retrograde intramedullary rodding above total knee. Current Visit: Yes Status: Acute (9) Adenocarcinoma of unknown primary Current Visit: Yes Status: Acute - Plan Plan of care as mentioned below: 1. Still some confusion-remains very lethargic. Continue monitoring neurologic status. 2. Continue with pain control 3. Continue with amiodarone and Lopressor 4. Continue monitoring renal function and liver function. 5. Continue with diuresing; continue monitoring renal function 6. Nephrology and GI consultation appreciated; intermediate prognosis is poor; family requesting transfer to tertiary care facility 7. Confusion is probably multifactorial 8. O2 per protocol; stable 9. Continue monitoring hemodynamics in ICU 10. Transfer initiated to [facility]-Dr. Rodriguez accepting - Advance Directives Does patient have a Living Will: No Does patient have a Durable POA for Healthcare: No
--- NOTE | 2022-10-22 14:19 | P.DS ---
Discharge Date: 10/22/22 Disposition: ROUTINE DISCHARGE Reason for Admission: SOB, AMS - Problems (1) Hepatic encephalopathy Current Visit: Yes Status: Acute (2) Hypoxic Current Visit: Yes Status: Acute (3) S/P knee replacement Current Visit: Yes Status: Acute (4) Atrial fibrillation Current Visit: No Status: Acute Qualifiers: Atrial fibrillation type: unspecified Qualified Code(s): I48.91 - Unspecified atrial fibrillation (5) COPD (chronic obstructive pulmonary disease) Current Visit: No Status: Acute Qualifiers: Emphysema type: unspecified (6) Congestive heart failure Current Visit: No Status: Acute Qualifiers: Heart failure type: systolic Heart failure chronicity: unspecified Qualified Code(s): I50.20 - Unspecified systolic (congestive) heart failure Brief History of Present Illness: Patient is a 77-year-old female who presented to the hospital a few days ago with shortness of breath and confusion. Patient recently had femur fx repair, and found to have a pathologic fracture-biopsy revealed adenocarcinoma with unknown primary. I believe that patient has been treated at [facility]. Family requesting transfer. Patient was hypoxic and was placed in the ICU on oxygen. Patient was found to be in Afib with RVR, and attempted for cardioversion. Patient also with acute renal insufficiency. Patient with acute CHF exacerbation(EFof 37%). Patient was started on amiodarone drip. Patient's heart rate has improved. Patient was also given Diflucan-for zeus in the urine. Patient's LFTs have been elevated and patient's mentation has not been improving. Initial CT scan was unremarkable. Cardiac status has stabilized. Oxygenation is stable as well. Echocardiogram done in August of this year showed an ejection fraction of 37% and patient was in atrial fibrillation. Patient had enlarged left atrium. Patient's renal function is gradually wors ening and patient has become more more uremic. Patient is also anemic. We will go ahead and repeat CT of the brain. Ammonia level has been drawn and has come back elevated. Will start on lactulose and rifaximin. LFTs remain elevated in the setting of amiodarone and Diflucan. May need to discontinue 1 or both of these depending on patient's liver function testing. Family is requesting transfer to [facility] which has been initiated. Hopefully, we can get patient improved over the next 48 hours. Hospital Course: Clinical condition has not really improved significantly. Were able to finally get patient transferred to a tertiary care facility at [facility] after attempting transfer to [facility] and [facility]. Jeniffer ent will need cardiology services as well as oncology service and pulmonary services as patient is hypoxic. Patient has been anemic as well but we have had to continue the anticoagulation with Eliquis to prevent DVT. patient's mentation has also declined. Patient's long-term prognosis is poor and I do not believe patient will be able to benefit from any kind of chemo or radiation therapy. Patient's mentation is poor and patient is physically not strong enough to receive any aggressive chemotherapy. We will continue monitoring cardiac status and trying to improve patient's oxygenation status as well. However, if this does not improve I believe the best point of care would be to proceed with comfort measures for patient. [place] go [place] and [place] [facility] [place], [place] and hopefully patient may be able to benefit from treatment at a tertiary care facility. Vital Signs/Physical Exam: Temp Pulse Resp BP Pulse Ox 97.1 F 83 21 H 133/52 L 99 10/22/22 13:44 10/22/22 13:55 10/22/22 13:44 10/22/22 13:55 10/22/22 13:44 General: Alert, In no apparent distress, Oriented x1, Confused Laboratory Data at Discharge: WBC 25.20 thou/uL (4.3-10.9) H 10/22/22 04:20 Hgb 7.8 g/dL (12.0-15.0) L 10/22/22 04:20 Hct 25.7 % (36.0-45.0) L 10/22/22 04:20 Plt Count 364 thou/uL (152-406) 10/22/22 04:20 PT 25.7 SECONDS (9.5-12.5) H 10/19/22 05:50 INR 2.34 10/19/22 05:50 APTT 33.2 SECONDS (24.3-36.9) 10/19/22 05:50 Sodium 142 mEq/L (136-145) 10/22/22 04:20 Potassium 3.2 mEq/L (3.5-5.1) L 10/22/22 04:20 BUN 68 mg/dL (7-18) H 10/22/22 04:20 Creatinine 0.91 mg/dL (0.55-1.02) 10/22/22 04:20 Glucose 115 mg/dL (74-106) H 10/22/22 04:20 Phosphorus 2.0 mg/dL (2.5-4.9) L 10/22/22 04:20 Magnesium 1.8 mg/dL (1.6-2.4) 10/22/22 04:20 Total Bilirubin 1.0 mg/dL (0.2-1.0) 10/22/22 04:20 AST 21 U/L (15-37) 10/22/22 04:20 ALT 23 U/L (13-56) 10/22/22 04:20 Alkaline Phosphatase 83 U/L (45-117) 10/22/22 04:20 Lipase Cancelled 10/15/22 Unknown Home Medications: RX: Atorvastatin Calcium 20 mg PO DAILY 05/10/17 RX: Folic Acid 1 mg PO BID 05/10/17 RX: Gabapentin 600 mg PO QID 05/10/17 RX: Pantoprazole [Protonix Tab*] 40 mg PO DAILY 05/10/17 RX: Ropinirole HCl [Requip*] 1 mg PO 6XD 05/10/17 RX: Albuterol Inhaler [Ventolin Inhaler*] 8 gm IH PRN PRN 08/20/20 RX: Allopurinol 300 mg PO DAILY 08/20/20 RX: Apixaban [Eliquis *] 2.5 mg PO BID 08/20/20 RX: Cyanocobalamin (Vitamin B-12) [Vitamin B-12] 1 cap PO DAILY 08/20/20 RX: Duloxetine HCl 60 mg PO BID 08/20/20 RX: Fluticasone/Vilanterol [Breo Ellipta 200-25 Mcg INH] 1 each IH DAILY 08/20/20 RX: Spironolactone 25 mg PO DAILY 08/20/20 RX: Ubidecarenone [Co Q-10] 400 mg PO DAILY 08/20/20 RX: Metoprolol Tartrate [Lopressor*] 25 mg PO BID 6AM 6PM 30 Days #60 tab 08/20/22 RX: Docusate [Colace Cap*] 100 mg PO BID cap 09/09/22 RX: Hydrocodone 10/APAP 325 [Holt 10/325*] 1 tab PO Q6H PRN #15 tab 09/09/22 RX: Polyethyl Gly 3350 [Glycolax*] 17 gm PO DAILY PRN udbot 09/09/22 Physician Discharge Instructions: Transfer to [facility] [place]. Diet: Regular Activity: Fall precautions Followup: Tyree Pacheco, DO [Primary Care Provider] - Time spent managing pt's care (in minutes): 45
[2022-10-22] MEDS: SOD FERRIC GLUC COMPLX/SUCROSE 250 MG in NA CHLORIDE 0.9% 250 ML IV SCH (15:00)
[2022-10-23] MEDS ORDERED: VANCOMYCIN 1.75 GM in NA CHLORIDE 0.9% 500 ML IVPB SCH (11:00)
[2022-10-28 06:06] VITALS: BP 125/64; TEMP 97.7
== END 2022-10-22 15:33 | disposition short-term general hospital (02) | DRG 698 ==
LOC: ER 04:51 → ERHOLD 07:54 → 3RD-ICU 21:23
PROVIDERS: ADMIT Hospitalist; ATTEND Hospitalist
PROC: 5A09357 Assistance with Respiratory Ventilation, Less than 24 Consecutive Hours, Continuous Positive Airway Pressure (ICD-10-PCS; principal; 2022-10-22)
DX: T83.511A Infection and inflammatory reaction due to indwelling urethral catheter, initial encounter (principal); A41.9 Sepsis, unspecified organism; R65.21 Severe sepsis with septic shock; J96.01 Acute respiratory failure with hypoxia; I50.23 Acute on chronic systolic (congestive) heart failure; E43 Unspecified severe protein-calorie malnutrition; N17.9 Acute kidney failure, unspecified; G93.40 Encephalopathy, unspecified; E87.1 Hypo-osmolality and hyponatremia; B37.49 Other urogenital candidiasis; D62 Acute posthemorrhagic anemia; C79.51 Secondary malignant neoplasm of bone; I11.0 Hypertensive heart disease with heart failure; I48.91 Unspecified atrial fibrillation; N18.2 Chronic kidney disease, stage 2 (mild); K72.90 Hepatic failure, unspecified without coma; E78.00 Pure hypercholesterolemia, unspecified; G25.81 Restless legs syndrome; K21.9 Gastro-esophageal reflux disease without esophagitis; F32.A Depression, unspecified; C80.1 Malignant (primary) neoplasm, unspecified; E87.6 Hypokalemia; E66.09 Other obesity due to excess calories; L89.152 Pressure ulcer of sacral region, stage 2; D50.9 Iron deficiency anemia, unspecified; K76.82 Hepatic encephalopathy; J43.9 Emphysema, unspecified; E83.42 Hypomagnesemia; M10.9 Gout, unspecified; E83.39 Other disorders of phosphorus metabolism; M19.90 Unspecified osteoarthritis, unspecified site; E66.01 Morbid (severe) obesity due to excess calories; Z68.35 Body mass index [BMI] 35.0-35.9, adult; Z79.01 Long term (current) use of anticoagulants; Z99.81 Dependence on supplemental oxygen; Z86.718 Personal history of other venous thrombosis and embolism; Z79.899 Other long term (current) drug therapy; Z96.659 Presence of unspecified artificial knee joint; Z85.830 Personal history of malignant neoplasm of bone
CPT/HCPCS: 0240U; 36415; 36430; 70450; 71045; 71275; 76770; 80048; 80053; 80076; 81001; 82140; 82533; 82550; 82570; 82607; 82728; 82805; 83540; 83615; 83690; 83735; 83880; 83935; 84100; 84132; 84145; 84156; 84300; 84443; 84466; 84484; 85014; 85018; 85025; 85027; 85044; 85379; 85610; 85730; 86850; 86900; 86901; 86920; 87040; 87086; 87088; 87449; 92960; 93005; 94002; 94640; 94660; 99291; C9113; J0282; J0461; J0692; J1160; J1250; J1265; J1450; J1940; J2185; J2250; J2405; J2916; J2930; J3010; J3475; J3480; J7040; J7050; J7060; J7613; J7644; P9016; P9045; P9047; Q9967